=== PATIENT | female | born 1955 | race Caucasian/White ===

== ENCOUNTER 2016-09-08 15:38 | Inpatient (IN) | payer MEDICARE ==
--- NOTE | 2016-09-08 18:46 | XR ---
EXAMINATION TYPE: XR foot complete LT DATE OF EXAM: 09/08/2016 6:38 PM COMPARISON: 06/18/2016 HISTORY: Infection of the left first great toe with redness and swelling all along toes 3 patient has a nonhealing wound at the plantar surface of the left heel. TECHNIQUE: 3 radiographic views of the left foot were obtained. FINDINGS: There is generalized soft tissue swelling of the hindfoot and midfoot to a lesser degree of the forefoot. There is no evidence of fracture or dislocation. Redemonstration of degenerative day es appreciated as joint space narrowing at the metacarpophalangeal joints and interphalangeal joints greatest within the first digit. Supra calcaneal infracalcaneal heel spurs are noted. There is no christian dence of subcutaneous emphysema. Deformity of the soft tissues of the distal first digit overlying th e tuft is noted. No gross evidence for adjacent osseous abnormality. IMPRESSION: 1. Soft tissue deformity over the distal first digit without adjacent osseous abnormality. 2. Redemonstration of diffuse soft tissue swelling greatest within the hindfoot and midfoot and degen erative changes.
[2016-09-08] MEDS: SODIUM CHLORIDE 0.9% 1,000 ML IV SCH (18:50)
[2016-09-08] MEDS: GABAPENTIN 300 MG CAP PO SCH ×2 (18:51→21:12)
[2016-09-08] MEDS ORDERED: IV VANCOMYCIN PER PHARMACY 1 EACH MISC MISCELLANE PRN (19:58)
[2016-09-08 20:51] LABS: Aty Lym Flag Slight; CH 30.1; CHCM 33.1; HDW 3.05; HGB 9.9 gm/dL (11.4-16.0); MCH 30.1 pg (25.0-35.0); MCHC 32.9 g/dL (31.0-37.0); MCV 91.4 fL (80.0-100.0); Mean Platelet Volume 8.8; RBC 3.28 m/uL (3.80-5.40); RDW 13.4 % (11.5-15.5); WBC 5.4 k/uL (3.8-10.6); WBC (Perox) 4.98
[2016-09-08 20:57] LABS: Anion Gap 7 mmol/L; Blood Urea Nitrogen 11 mg/dL (7-17); Carbon Dioxide 28 mmol/L (22-30); Chloride 105 mmol/L (98-107); Glucose 73 mg/dL (74-99); Non-African American GFR(MDRD) >60 (>60 ml/min/1.73 sqM); Potassium 3.6 mmol/L (3.5-5.1); Sodium 140 mmol/L (137-145)
[2016-09-08] MEDS ORDERED: VANCOMYCIN 2,500 MG in SODIUM CHLORIDE 0.9% 500 ML IVPB ONE (21:00)
[2016-09-08 21:10] LABS: Add Differential Manual Differential
[2016-09-08] MEDS: ENOXAPARIN 40 MG/0.4 ML SYRINGE SQ SCH (21:11)
[2016-09-08 21:12] LABS: Nucleated Red Blood Cells 0 /100 WBC (0-0); Polychromasia Present; Total Cells Counted 100
[2016-09-08] MEDS: LISINOPRIL 20 MG TAB PO SCH (21:12)
[2016-09-08 21:13] LABS: Toxic Granulation Present
[2016-09-08] MEDS: PREGABALIN 50 MG CAP PO SCH (21:13)
[2016-09-08] MEDS ORDERED: diphenhydrAMINE 25 MG CAP PO PRN (23:26)
[2016-09-09] MEDS: SODIUM CHLORIDE 0.9% 1,000 ML IV SCH ×4 (00:05→21:47)
[2016-09-09] MEDS: VANCOMYCIN 2,250 MG in SODIUM CHLORIDE 0.9% 500 ML IVPB SCH ×2 (06:57→17:26)
[2016-09-09] MEDS: LEVOTHYROXINE 100 MCG TAB PO SCH (06:57)
[2016-09-09] MEDS: LISINOPRIL 20 MG TAB PO SCH ×2 (08:17→21:44)
--- NOTE | 2016-09-09 09:29 | P.CONS ---
History of Present Illness - Reason for Consult Consult date: 09/09/16 Cellulitis left foot - History of Present Illness This is a 61-year-old female and known to ID service due to chronic wounds with a left heel wound under the care of Dr. Danielson at the wound healing Center. Patient states that she had a total contact cast placed and the heel wound was healing very well but about [address] Danielson took the cast off she had some redness on the great toe and she was placed on Cipro for a 10 day course which she completed. Last week, patient's thought that things were going very well and the cast was put back on and when it was taken off yesterday there was bleeding from her big toe. Patient was sent from the wound healing center as a direct admission to the medical floor for admission with IV antibiotics due to infected nail bed. There was also consult placed with Dr. Andrew. Patient denies having any fever or chills. She denies having any pain to the foot, numbness or tingling. She does state there was a lot of bleeding yesterday. X-ray of the foot showed a soft tissue deformity in the distal first without osseous abnormality. Diffuse soft tissue swelling greatest within the hindfoot and midfoot with degenerative changes. Wound culture and aerobic culture in progress. Her white count 5.4 with GFR greater than 60. Hemoglobin was 9.9. Patient's been started on ceftriaxone and vancomycin. Patient does complain of diarrhea which she states is significant although she has not had any this morning. She has had some problems with stool incontinence. Pre-albumin done on August 20 was 16. Review of Systems All systems: negative Constitutional: Reports poor appetite, Denies chills, Denies fever Eyes: denies blurred vision, denies pain Ears, nose, mouth and throat: Denies headache, Denies sore throat Cardiovascular: Denies chest pain, Denies shortness of breath Respiratory: Denies cough Gastrointestinal: Denies abdominal pain, Denies diarrhea, Denies nausea, Denies vomiting Genitourinary: Denies dysuria, Denies hematuria Musculoskeletal: Denies myalgias Integumentary: Reports wounds, Denies pruritus, Denies rash Neurological: Denies numbness, Denies weakness Psychiatric: Denies anxiety, Denies depression Endocrine: Denies fatigue, Denies weight change Past Medical History Past Medical History: Hypertension, Osteoarthritis (OA), Skin Disorder, Thyroid Disorder Additional Past Medical History / Comment(s): UTI, neuropathy, anemia, umbilical hernia, WOUND LEFT HEEL, umb hernia, breakdown lt foot goes to [facility], strss incont of urine History of Any Multi-Drug Resistant Organisms: None Reported Past Surgical History: Section, Cholecystectomy, Orthopedic Surgery, Tubal Ligation Additional Past Surgical History / Comment(s): D&C x 3, arthroscopic left knee x 2 Past Anesthesia/Blood Transfusion Reactions: Previous Problems w/ Anesthesia Additional Past Anesthesia/Blood Transfusion Reaction / Comm: slow to come out of it Past Psychological History: No Psychological Hx Reported Additional Psychological History / Comment(s): pt lives alone in a single level home that has 3 steps in which to enter. no pets.uses a cane when up. receives [facility] care nurse. Smoking Status: Former smoker Past Alcohol Use History: Rare Additional Past Alcohol Use History / Comment(s): started smoking 1970, quit 1990, 1 ppd. Patient denies any medical marijuana, marijuana, street drug or alcohol use. She worked in the past as a nurse at [employer]. Past Drug Use History: None Reported - Past Family History Father Family Medical History: Cancer, Coronary Artery Disease (CAD), Myocardial Infarction ([place]), Prostate Disorder Additional Family Medical History / Comment(s): Prostate CA Mother Family Medical History: Cancer, CVA/TIA, Hyperlipidemia Additional Family Medical History / Comment(s): Lung CA-left lobe removed Medications and Allergies Home Medications Medication Instructions Recorded Confirmed Type Gabapentin [Neurontin] 900 mg PO HS@2200 08/29/13 09/08/16 History Levothyroxine Sodium [Synthroid] 100 mcg PO DAILY 08/29/13 09/08/16 History Lisinopril [Zestril] 20 mg PO BID PRN 08/29/13 09/08/16 History Ibuprofen [Motrin] 800 mg PO TID PRN 01/13/16 09/08/16 History Pregabalin [Lyrica] 50 mg PO TID 01/13/16 09/08/16 History Gabapentin [Neurontin] 600 mg PO BID@1000,1400 01/14/16 09/08/16 History HYDROcodone/APAP 7.5-325MG [[place] 1 tab PO Q6HR PRN 09/08/16 09/08/16 History 7.5-325] Allergies Allergy/AdvReac Type Severity Reaction Status Date / Time Sulfa (Sulfonamide Allergy Rash/Hives Verified 09/08/16 17:22 Antibiotics) Physical Exam Vitals: Vital Signs Temp Pulse Resp BP BP Pulse Ox 09/09/16 07:00 97.8 F 75 20 123/58 95 09/08/16 23:00 97.3 F L 100 20 157/97 94 L 09/08/16 16:20 96.5 F L 68 16 149/74 98 Intake and Output 09/08/16 09/09/16 09/09/16 22:59 06:59 14:59 Intake Total 100 100 Balance 100 100 Intake: Oral 100 100 Other: # Voids 1 Weight 153.91 kg Gen: This is a super morbid obese female. She is lying in bed and appears to be in no acute distress. HEENT: Head is atraumatic, normocephalic. Pupils equal, round. Sclerae is anicteric. Conjunctiva pink. Mucous membranes of the mouth are moist. No thrush noted. Dentition is in poor order. NECK: Short and thick. Supple. No JVD. No lymphadenopathy. No thyromegaly. LUNGS: Clear to auscultation. No wheezes or rhonchi. No intercostal retractions. HEART: Regular rate and rhythm. No murmur. Heart sounds are distant. ABDOMEN: Morbidly obese .Soft. Bowel sounds are present. No masses. No tenderness. Large abdominal apron with moisture but no significant redness. Mid abdominal hernia noted. EXTREMITIES: Chronic skin changes to the bilateral lower extremities. Onychomycosis noted bilaterally. Left foot has significant erythema from the toes to the mid foot with drainage from the nail bed on the left great toe. Ulcer to the left heel with small amount of yellow drainage. Foul odor noted. NEUROLOGICAL: Patient is awake, alert and oriented x3. Cranial nerves 2 through 12 are grossly intact. Results CBC & Chem 7: 09/10/16 09:43 09/10/16 09:43 Labs: Abnormal Lab Results - Last 24 Hours (Table) 09/08/16 09/08/16 Range/Units 19:54 19:54 RBC 3.28 L (3.80-5.40) m/uL Hgb 9.9 L (11.4-16.0) gm/dL Hct 30.0 L (34.0-46.0) % Plt Count 127 L (150-450) k/uL Lymphocytes # (Manual) 0.9 L (1.0-4.8) k/uL Glucose 73 L (74-99) mg/dL Microbiology - Last 24 Hours (Table) 09/08/16 18:30 Gram Stain - Preliminary Foot - Left Wound Culture - Preliminary 09/08/16 18:30 Anaerobic Culture - Preliminary Foot - Left Assessment and Plan Plan: This is a 61-year-old female who presented with a wound infection to the left great toe with cellulitis and chronic nonhealing ulcer to the left heel. Local wound care will be addressed. Bone scan will be ordered. She is currently on antibiotics in form of ceftriaxone and vancomycin. Wound culture and anaerobic wound culture is in progress. Culture will be requested. Stool specimen will be sent for C. difficile toxin. Continue supportive care. Further recommendations as patient progresses. The above dictated assessment and findings were discussed with Dr. Suazo. The impression and plan of care have been directed as dictated. Sharon Webb nurse practitioner acting as scribe for Dr. Suazo.
[2016-09-09 09:48] VITALS: BMI 51.5
--- NOTE | 2016-09-09 10:41 | HP ---
DATE OF ADMISSION: 09/08/2016 PRESENTING COMPLAINT: Left heel wound. HISTORY OF PRESENT ILLNESS: This is a very pleasant 61-year-old patient of Dr. Mcfarlane, patient has a long-standing wound on the left heel. The patient was in a cast for about 4 weeks that was taken off 3 weeks ago. After 2 weeks the wound broke down again, cast was put back on, he had it on for 2 weeks and the cast was taken off today. Patient's was found to have foul-smelling draining left heel wound. Also the patient was found to have infection of the big toe and fungal changes of the foot. The patient's chronic stable medical conditions include peripheral neuropathy, obesity, osteoarthritis, hypertension, hypothyroidism, umbilical hernia, urinary stress incontinence, and chronic lymphedema. The patient normally uses a cane to get about. This has slight bogginess, wound to the right heel. The patient was admitted to the wound care center by Dr. Danielson from vascular surgery. REVIEW OF SYSTEMS: CONSTITUTIONAL: Tired. RESPIRATORY: None. CARDIOVASCULAR: None. GASTROINTESTINAL: None. GENITOURINARY: Urinary stress incontinence. DERMATOLOGICAL: Dry skin. HEMATOLOGICAL: None. LYMPHATICS: None. NEUROLOGICAL: Peripheral neuropathy. PAST MEDICAL HISTORY: Peripheral neuropathy, obesity, osteoarthritis, hypertension, hypothyroid, umbilical hernia, urinary stress incontinence, left heel wound. PAST SURGICAL HISTORY: , cholecystectomy, tubal ligation D&C, arthroscopy of the left knee. SOCIAL HISTORY: Patient lives alone in a single level home. Uses a cane. The patient smoked for about 20 years; stopped in 1990, smoked a pack a day. FAMILY HISTORY: Coronary artery disease, prostate cancer. HOME MEDICATIONS: 1. Lyrica 50 mg p.o. t.i.d. 2. Synthroid 100 mcg p.o. daily. 3. Motrin 800 mg p.o. t.i.d. 4. [place] 7.5 one tablets every 6 p.r.n. 5. Neurontin 600 mg p.o. b.i.d. and 900 mg p.o. at bedtime. 6. Zestril 20 mg b.i.d. Allergies to SULFA. On examination, temperature 96.5, pulse 58, respirations 16, blood pressure 140/74, pulse ox 98% on room air. GENERAL: Morbidly obese, BMI 50. Not in distress. HEENT: Oral cavity normal. NECK: Short, thick, JVD unable to assess. Mass not palpable. RESPIRATORY: Effort increased. LUNGS: Distant breath sounds. CARDIOVASCULAR: Heart sounds muffled. Minimal edema. ABDOMEN: Distended, soft. Liver and spleen not palpable. LYMPHATIC: No lymph nodes palpable in the neck or axilla. PSYCHIATRY: Alert, oriented x3. Mood normal. EXTREMITIES: Lymphedema of the lower extremities. Dry skin flaking over the ankle with evidence of necrobiosis lipoidica. The patient also had boggy wound of the left heel and evidence of fungal infection in all the toes. Appears to be a foul-smelling abscess around the first toe nail on the left foot. INVESTIGATIONS: Blood work pending. Culture will be sent off. ASSESSMENT: 1. Left heel wound, having failed outpatient treatment, probably from peripheral neuropathy and foot that was in a cast. 2. Morbid obesity, body mass index of 51.6. 3. Primary osteoarthritis of multiple joints. 4. Essential hypertension. 5. Hypothyroidism. 6. Umbilical hernia. 7. Urinary stress incontinence. PLAN: The patient was put on vancomycin and ceftriaxone. Consultation with Dr. Andrew and ID is being done and Dr. Danielson. Cultures were already sent off. Care was discussed with the patient.
[2016-09-09 10:52] LABS: Anion Gap 8 mmol/L; Blood Urea Nitrogen 9 mg/dL (7-17); Calcium 8.7 mg/dL (8.4-10.2); Carbon Dioxide 25 mmol/L (22-30); Chloride 109 mmol/L (98-107); Glucose 90 mg/dL (74-99); Non-African American GFR(MDRD) >60 (>60 ml/min/1.73 sqM); Potassium 3.5 mmol/L (3.5-5.1); Sodium 142 mmol/L (137-145)
[2016-09-09] MEDS: PREGABALIN 50 MG CAP PO SCH ×3 (10:53→21:51)
[2016-09-09] MEDS: GABAPENTIN 300 MG CAP PO SCH ×3 (10:53→21:44)
[2016-09-09] MEDS: HYDROcodone/APAP 7.5-325MG 1 EACH TAB PO PRN (17:29)
--- NOTE | 2016-09-09 17:51 | NM ---
EXAMINATION TYPE: NM bone 3 phase DATE OF EXAM: 09/09/2016 5:38 PM COMPARISON: Left foot x-ray yesterday 2017 HISTORY: Left first toe infection, assess for osteomyelitis Triple phase bone scintigraphy was performed following the injection of27.2 mCi Tc 99m MDP. Immediat e images and 3 hours post injection images acquired. FINDINGS: Dynamic arterial phase imaging shows increased radiotracer uptake right heel level as well as anterio r left first toe level. Soft tissue phase images shows increased radiotracer uptake left first toe le amanda. Delayed phase imaging shows increased uptake left first toe level. IMPRESSION: Three-phase radiotracer uptake distal left first toe correlates with acute osteomyelitis in the [facility] clinical setting.
--- NOTE | 2016-09-09 18:45 | P.CON ---
Consult Note - . Consult date: 09/09/16 Assessment/Plan:: History of Present Illness - Reason for Consult Consult date: 09/09/16 Cellulitis left foot - History of Present Illness This is a 61-year-old female and known to ID service due to chronic wounds with a left heel wound under the care of Dr. Danielson at the wound healing Center. Patient states that she had a total contact cast placed and the heel wound was healing very well but about [address] Danielson took the cast off she had some redness on the great toe and she was placed on Cipro for a 10 day course which she completed. Last week, patient's thought that things were going very well and the cast was put back on and when it was taken off yesterday there was bleeding from her big toe. Patient was sent from the wound healing center as a direct admission to the medical floor for admission with IV antibiotics due to infected digit. Patient denies having any fever or chills. She denies having any pain to the foot, numbness or tingling. She does state there was a lot of bleeding yesterday. X-ray of the foot showed a soft tissue deformity in the distal first without osseous abnormality. Diffuse soft tissue swelling greatest within the hindfoot and midfoot with degenerative changes. Wound culture and aerobic culture in progress. Her white count 5.4 with GFR greater than 60. Hemoglobin was 9.9. Patient's been started on ceftriaxone and vancomycin. Patient does complain of diarrhea which she states is significant although she has not had any this morning. She has had some problems with stool incontinence. Pre-albumin done on August 20 was 16. Review of Systems All systems: negative Constitutional: Reports poor appetite, Denies chills, Denies fever Eyes: denies blurred vision, denies pain Ears, nose, mouth and throat: Denies headache, Denies sore throat Cardiovascular: Denies chest pain, Denies shortness of breath Respiratory: Denies cough Gastrointestinal: Denies abdominal pain, Denies diarrhea, Denies nausea, Denies vomiting Genitourinary: Denies dysuria, Denies hematuria Musculoskeletal: Denies myalgias Integumentary: Reports wounds, Denies pruritus, Denies rash Neurological: Denies numbness, Denies weakness Psychiatric: Denies anxiety, Denies depression Endocrine: Denies fatigue, Denies weight change Past Medical History Past Medical History: Hypertension, Osteoarthritis (OA), Skin Disorder, Thyroid Disorder Additional Past Medical History / Comment(s): UTI, neuropathy, anemia, umbilical hernia, WOUND LEFT HEEL, umb hernia, breakdown lt foot goes to [facility], strss incont of urine History of Any Multi-Drug Resistant Organisms: None Reported Past Surgical History: Section, Cholecystectomy, Orthopedic Surgery, Tubal Ligation Additional Past Surgical History / Comment(s): D&C x 3, arthroscopic left knee x 2 Past Anesthesia/Blood Transfusion Reactions: Previous Problems w/ Anesthesia Additional Past Anesthesia/Blood Transfusion Reaction / Comm: slow to come out of it Past Psychological History: No Psychological Hx Reported Additional Psychological History / Comment(s): pt lives alone in a single level home that has 3 steps in which to enter. no pets.uses a cane when up. receives [facility] care nurse. Smoking Status: Former smoker Past Alcohol Use History: Rare Additional Past Alcohol Use History / Comment(s): started smoking 1970, quit 1990, 1 ppd. Patient denies any medical marijuana, marijuana, street drug or alcohol use. She worked in the past as a nurse at [employer]. Past Drug Use History: None Reported - Past Family History Father Family Medical History: Cancer, Coronary Artery Disease (CAD), Myocardial Infarction ([place]), Prostate Disorder Additional Family Medical History / Comment(s): Prostate CA Mother Family Medical History: Cancer, CVA/TIA, Hyperlipidemia Additional Family Medical History / Comment(s): Lung CA-left lobe removed Medications and Allergies Home Medications Medication Instructions Recorded Confirmed Type Gabapentin [Neurontin] 900 mg PO HS@2200 08/29/13 09/08/16 History Levothyroxine Sodium [Synthroid] 100 mcg PO DAILY 08/29/13 09/08/16 History Lisinopril [Zestril] 20 mg PO BID PRN 08/29/13 09/08/16 History Ibuprofen [Motrin] 800 mg PO TID PRN 01/13/16 09/08/16 History Pregabalin [Lyrica] 50 mg PO TID 01/13/16 09/08/16 History Gabapentin [Neurontin] 600 mg PO BID@1000,1400 01/14/16 09/08/16 History HYDROcodone/APAP 7.5-325MG [[place] 1 tab PO Q6HR PRN 09/08/16 09/08/16 History 7.5-325] Allergies Allergy/AdvReac Type Severity Reaction Status Date / Time Sulfa (Sulfonamide Allergy Rash/Hives Verified 09/08/16 17:22 Antibiotics) Physical Exam Vitals: Vital Signs Temp Pulse Resp BP BP Pulse Ox 09/09/16 07:00 97.8 F 75 20 123/58 95 09/08/16 23:00 97.3 F L 100 20 157/97 94 L 09/08/16 16:20 96.5 F L 68 16 149/74 98 Intake and Output 09/08/16 09/09/16 09/09/16 22:59 06:59 14:59 Intake Total 100 100 Balance 100 100 Intake: Oral 100 100 Other: # Voids 1 Weight 153.91 kg Podiatric exam: Dermatologic exam: Patient has a full-thickness ulceration distal aspect of left hallux through the dermis. It measures proximal a half centimeter by a centimeter and half treating down to the osseous structures 45 mm. It is localized erythema edema extending from this ulcer to the interphalangeal joint of the left hallux. Patient is a full-thickness ulcer of the left heel approximately 3 cm in diameter through the dermis into the deep fascia planes. Patient has lymphatic changes of the dermis bilateral. There is cellulitic changes consistent with stasis dermatitis bilateral. Patient has thickened mycotic nails 10 with dystrophic changes. There is loosening and subungual debris a several these nails with proximal paronychia the proximal nail fold of the left hallux. Upon removal of the nail plate on the left hallux there is no nail bed injury. Vascular examination patient has patent palpable and symmetrical pedal pulses bilateral there is no digital hair. Chronic lymphedema bilateral with lymphatic changes consistent with chronic condition. Neurologic exam: Patient has diminished epicritic and pallesthetic sensations bilateral. There is pain with deep palpation as well as with debridement of the ulcer of the left hallux. Orthopedic examination: Patient has diminished range of motion of the ankle joint and subtalar joint and midtarsal joint and metatarsophalangeal joints bilateral all inverters everters plantar flexors dorsiflexors grossly intact symmetrical bilateral review of recent bone scan triphasic suggest osteomyelitis acute on the distal aspect of the left hallux. Results CBC & Chem 7: 09/08/16 19:54 09/08/16 19:54 Labs: Abnormal Lab Results - Last 24 Hours (Table) 09/08/16 09/08/16 Range/Units 19:54 19:54 RBC 3.28 L (3.80-5.40) m/uL Hgb 9.9 L (11.4-16.0) gm/dL Hct 30.0 L (34.0-46.0) % Plt Count 127 L (150-450) k/uL Lymphocytes # (Manual) 0.9 L (1.0-4.8) k/uL Glucose 73 L (74-99) mg/dL Microbiology - Last 24 Hours (Table) 09/08/16 18:30 Gram Stain - Preliminary Foot - Left Wound Culture - Preliminary 09/08/16 18:30 Anaerobic Culture - Preliminary Foot - Left Assessment and Plan Plan: This is a 61-year-old female who presented with a wound infection to the left great toe with cellulitis and chronic nonhealing ulcer to the left heel. Local wound care will be addressed. Bone scan is reviewed and is positive for possible underlying osteomyelitis acute. This is consistent with her clinical findings of the ulcer full-thickness to the underlying osseous structures. She is currently on antibiotics in form of ceftriaxone and vancomycin. We debrided the ulcer on the distal aspect left hallux of all fibrotic necrotic tissue to good bleeding viable tissue using sharp dissection with a 15 blade. Upon debridement it was noted that the ulcer penetrated to the distal phalanx. This osseous structure was firm upon palpation with the surgical instrument. There is minimal necrotic bone noted upon inspection. There is no purulence no odor we also debrided the dystrophic mycotic nails 10. Orders are written for local wound care. Also repeated culture and sensitivity was removal of all necrotic tissue. Will follow patient. Patient may benefit from surgical debridement of bone in the future once the infection appears to be resolving.
[2016-09-09] MEDS: ENOXAPARIN 40 MG/0.4 ML SYRINGE SQ SCH (21:43)
--- NOTE | 2016-09-09 23:36 | P.CON ---
Consult Note - . Consult date: 09/09/16 Assessment/Plan:: This is a 61-year-old female and known to ID service due to chronic wounds with a left heel wound under the care of Dr. Danielson at the wound healing Center. Patient states that she had a total contact cast placed and the heel wound was healing very well but about [address] Danielson took the cast off she had some redness on the great toe and she was placed on Cipro for a 10 day course which she completed. Last week, patient's thought that things were going very well and the cast was put back on and when it was taken off yesterday there was bleeding from her big toe. Patient was sent from the wound healing center as a direct admission to the medical floor for admission with IV antibiotics due to infected nail bed. There was also consult placed with Dr. Andrew. Patient denies having any fever or chills. She denies having any pain to the foot, numbness or tingling. She does state there was a lot of bleeding yesterday. X-ray of the foot showed a soft tissue deformity in the distal first without osseous abnormality. Diffuse soft tissue swelling greatest within the hindfoot and midfoot with degenerative changes. Wound culture and aerobic culture in progress. Her white count 5.4 with GFR greater than 60. Hemoglobin was 9.9. Patient's been started on ceftriaxone and vancomycin. Patient does complain of diarrhea which she states is significant although she has not had any this morning. She has had some problems with stool incontinence. Pre-albumin done on August 20 was 16. Please see the consult note as dictated by nurse practitioner Mrs. Sharon Webb. Pleasant woman known from the wound healing Center. Is now been seen by vascular surgery as well as podiatry. Is evidence of a significant infection to the left foot. Underlying evaluations include follow-up bone scan and x- rays. To evaluate the possibility of hospitalist of that great toe. Antibiotic therapy with ceftriaxone and vancomycin being utilized some prior cultures. The patient did have some diarrhea and forcefully is negative for C. diff at this time. The plan ongoing supportive care. Pain control appears to be adequate. Local wound care continues. Chronic ulceration to the heel is doing well with the recent total contact cast use as well as other medical Honey. Continue that for now. Will not be able to have the TCC reapplied in the near future due to the acute difficulty she suffered from. It appears that she developed severe wetness within the cast. I agree with evaluation, assessment and plan as dictated by nurse practitioner Mrs. Sharon Webb.
[2016-09-10] MEDS: SODIUM CHLORIDE 0.9% 1,000 ML IV SCH ×4 (04:08→22:26)
[2016-09-10] MEDS: VANCOMYCIN 2,250 MG in SODIUM CHLORIDE 0.9% 500 ML IVPB SCH ×2 (05:32→17:25)
--- NOTE | 2016-09-10 06:14 | PN ---
DATE OF SERVICE: 09/09/2016. PRESENTING COMPLAINT: Left heel wound. INTERVAL HISTORY: This is a 61-year-old female with a long-standing history of nonhealing wounds on the left heel. Patient was being seen by Wound Care. Patient was casted as a part of her therapy and after removal of the cast, it was noted that the wound broke down. Cast was put back on and then taken off again. Patient was found to have foul-smelling drainage from the left heel wound and a left big toe and fungal infections of the foot. Today patient is awake and alert. No acute distress noted or voiced. Patient inquiring regarding her left foot x-ray what the results of that were. Otherwise, patient has no complaints and no questions. Review of systems done for constitutional, cardiovascular, GI, pulmonary with relevant findings as above. CURRENT MEDICATIONS: [place], Benadryl, Lovenox, Neurontin, Synthroid, lisinopril, Lyrica, vancomycin. PHYSICAL EXAMINATION: VITAL SIGNS: Temperature 97.8, pulse 75, respirations 20, blood pressure 123/58, oxygen saturation 95% on room air. GENERAL APPEARANCE: Patient is lying in bed, comfortable appearing, answers all questions appropriately. No acute distress noted or voiced. EYES: Pupils equal. Conjunctivae normal. NECK: JVD not raised. Mass not palpable. LUNGS: Diminished sounds bilaterally. RESPIRATORY: Effort normal, unlabored. CARDIOVASCULAR: First and second sounds noted, +2 to 3 edema to bilateral lower extremities. Patient has lymphedema to her bilateral lower extremities. EXTREMITIES: Lymphedema to the below bilateral lower extremities. Try flaking skin over the ankle with evidence of necrobiosis lipoidica. The patient also has a boggy wound of the left heel, evidence of fungal infection in all the toes, appears to be foul-smelling abscess around the first toenail on the left foot. INVESTIGATIONS: Sodium 142, potassium 3.5, BUN 9, creatinine 0.59. Wound culture in progress. ASSESSMENT: 1. Left heel wound, having failed outpatient treatment, probably from peripheral neuropathy and foot that was casted. 2. Morbid obesity; body mass index of 51.6. 3. Primary osteoarthritis of multiple joints. 4. Essential hypertension. 5. Hypothyroidism. 6. Umbilical hernia. 7. Urinary stress incontinence. PLAN: Patient remains on vancomycin and ceftriaxone. Consultation with Dr. Adnrew and Infectious Disease is being done and Dr. Danielson. Culture sent, awaiting results. Plan of care was discussed with the patient. Patient was seen and examined by nurse practitioner, Rosetta Robles, and all elements of the case discussed with attending, Dr. Magallanes.
[2016-09-10] MEDS: LEVOTHYROXINE 100 MCG TAB PO SCH (07:49)
[2016-09-10] MEDS: LISINOPRIL 20 MG TAB PO SCH ×2 (07:49→22:24)
[2016-09-10] MEDS: HYDROcodone/APAP 7.5-325MG 1 EACH TAB PO PRN (08:01)
--- NOTE | 2016-09-10 09:42 | PN ---
DATE OF SERVICE: 09/09/2016 PRESENTING COMPLAINT: Left heel wound. ATTENDING NOTE: This patient seen and examined by me earlier today. Patient presented with left foot heel wound and right big toe wound. Wound was debrided. Left heel wound was debrided by Dr. Andrew later in the day. On examination, lungs are clear. CARDIOVASCULAR: First and second sounds normal. Left foot wound was debrided. INVESTIGATIONS: Potassium 3.5. Nuclear bone scan later in the day reported as possible osteomyelitis of the first big toe. ASSESSMENT: 1. Left heel wound having failed outpatient treatment, status post secondary to peripheral neuropathy, status post debridement. 2. Left first big toe osteomyelitis per bone scan. PLAN: Continue with the current medication and treatment plan and antibiotics. Follow. Initially the cultures are growing presumptive staph aureus.
[2016-09-10 10:09] LABS: Basophils % (A) 0 %; CH 29.4; CHCM 31.5; Eosinophils # (A) 0.1 k/uL (0-0.7); Eosinophils % (A) 2 %; HCT 33.2 % (34.0-46.0); HDW 2.88; HGB 10.7 gm/dL (11.4-16.0); Hypochromasia Slight; Luc # (Auto) 0.19; Luc % (Auto) 5; Lymphocytes # (A) 0.6 k/uL (1.0-4.8); Lymphocytes % (A) 14 %; MCHC 32.1 g/dL (31.0-37.0); MCV 93.7 fL (80.0-100.0); Mean Platelet Volume 8.3; Monocytes # (A) 0.3 k/uL (0-1.0); Monocytes % (A) 8 %; Neutrophils # (A) 3.1 k/uL (1.3-7.7); Neutrophils % (A) 71 %; RBC 3.55 m/uL (3.80-5.40); RDW 13.7 % (11.5-15.5); WBC 4.3 k/uL (3.8-10.6); WBC (Perox) 4.46
[2016-09-10] MEDS: GABAPENTIN 300 MG CAP PO SCH ×3 (10:45→22:24)
[2016-09-10] MEDS: LOPERAMIDE 2 MG CAP PO PRN ×2 (10:45→17:25)
[2016-09-10] MEDS: PREGABALIN 50 MG CAP PO SCH ×3 (10:45→22:29)
[2016-09-10 10:53] LABS: Anion Gap 13 mmol/L; Blood Urea Nitrogen 7 mg/dL (7-17); Carbon Dioxide 22 mmol/L (22-30); Chloride 110 mmol/L (98-107); Glucose 90 mg/dL (74-99); Non-African American GFR(MDRD) >60 (>60 ml/min/1.73 sqM); Potassium 3.7 mmol/L (3.5-5.1); Sodium 145 mmol/L (137-145)
[2016-09-10] MEDS: LACTOBACILLUS ACIDOPH & BULGAR 1 EACH PACKET PO SCH ×2 (17:25→22:26)
--- NOTE | 2016-09-10 18:00 | PN ---
DATE OF SERVICE: 09/10/2016 PRESENTING COMPLAINT: Left heel wound. INTERVAL HISTORY: This is a female with a long-standing history of non-healing wounds to the left heel. Patient has been seen by Wound Care. On a repeat visit to the wound care clinic, patient was found to have infected toes after the removal of a cast. Patient therefore was admitted for antibiotic therapy. Today patient is awake and alert. No acute distress noted or voiced. She is sitting up on the bed. Review of systems done for constitutional, cardiovascular, GI, pulmonary, with relevant findings as above. CURRENT MEDICATIONS: 1. [place]. 2. Benadryl. 3. Lovenox. 4. Neurontin. 5. Synthroid. 6. Lisinopril. 7. Lyrica. 8. Vancomycin. PHYSICAL EXAMINATION: VITAL SIGNS: Temperature 96.6, pulse 66, respiratory rate 16, blood pressure 154/82, oxygen saturation 96% on room air. GENERAL APPEARANCE: Patient is sitting up on the chair. No acute distress noted or voiced. EYES: Pupils equal. Conjunctivae normal. NECK: JVD not raised. Mass not palpable. LUNGS: Diminished breath sounds bilaterally. Respiratory effort normal, unlabored. CARDIOVASCULAR: First and second sounds noted. Plus 2 to 3 edema to bilateral lower extremities. Patient has lymphedema to her bilateral lower extremities. EXTREMITIES: Lymphedema to the bilateral lower extremities. Flaking skin over the ankle. Evidence of necrobiosis and lipodidica. Patient has a recently debrided left heel wound, beefy red in color. Debridement also done to the abscess around the first toe as well as subsequent toes on the foot. INVESTIGATIONS: White blood cell count 4.3, hemoglobin 10.7, platelet count 159. Sodium 145, potassium 3.7. BUN 7, creatinine 0.63. Bone scan correlates with acute osteomyelitis. Debridement done at the bedside on the distal aspect of the left hallux. Dystrophic mycotic nails were also debrided x10. C difficile negative. ASSESSMENT: 1. Left heel wound, having failed outpatient treatment, probably from peripheral neuropathy and foot that was casted. 2. Morbid obesity; body mass index of 51.6. 3. Primary osteoarthritis of multiple joints. 4. Essential hypertension. 5. Hypothyroidism. 6. Umbilical hernia. 7. Urinary stress incontinence. 8. Antibiotic-associated diarrhea, acute. PLAN: Patient remains on vancomycin and ceftriaxone per ID recommendations. Dr. Andrew did debridement procedure on patient's left foot with good results. Awaiting results of repeat cultures. Provided Imodium for diarrhea, as C difficile toxin test was negative as well as lactobacillus. Plan of care was discussed with the patient. Patient seen and examined by nurse practitioner, Rosetta Robles, and all the elements of the case were discussed with attending, Dr. Magallanes.
[2016-09-10] MEDS: ENOXAPARIN 40 MG/0.4 ML SYRINGE SQ SCH (22:23)
--- NOTE | 2016-09-10 23:22 | PN ---
DATE OF SERVICE: 09/10/2016 ATTENDING NOTE: This patient was seen and examined by me earlier today. Reviewed the care with Ms. Robles. Patient is status post debridement. She is also being treated for osteomyelitis. Pain is controlled. Lying in bed. Current medications include IV ceftriaxone, IV vancomycin. On examination, afebrile. LUNGS: Decreased breath sounds. CARDIOVASCULAR: First and second sounds normal. Wound culture is growing MSSA. ASSESSMENT: 1. Left heel wound, having failed outpatient treatment, probably from peripheral neuropathy. 2. Acute antibiotic-associated diarrhea. 3. Left big toe osteomyelitis. PLAN: Continue current medication and treatment plan. Will wait for recommendation from ID. Patient is growing MSSA in the wounds. Will follow.
--- NOTE | 2016-09-10 23:49 | P.PN ---
Subjective Principal diagnosis: Abscess left foot This is a 61-year-old female and known to ID service due to chronic wounds with a left heel wound under the care of Dr. Danielson at the wound healing Center. Patient states that she had a total contact cast placed and the heel wound was healing very well but about [address] Danielson took the cast off she had some redness on the great toe and she was placed on Cipro for a 10 day course which she completed. Last week, patient's thought that things were going very well and the cast was put back on and when it was taken off yesterday there was bleeding from her big toe. Patient was sent from the wound healing center as a direct admission to the medical floor for admission with IV antibiotics due to infected nail bed. There was also consult placed with Dr. Andrew. Patient denies having any fever or chills. She denies having any pain to the foot, numbness or tingling. She does state there was a lot of bleeding yesterday. X-ray of the foot showed a soft tissue deformity in the distal first without osseous abnormality. Diffuse soft tissue swelling greatest within the hindfoot and midfoot with degenerative changes. Wound culture and aerobic culture in progress. Her white count 5.4 with GFR greater than 60. Hemoglobin was 9.9. Patient's been started on ceftriaxone and vancomycin. Patient does complain of diarrhea which she states is significant although she has not had any this morning. She has had some problems with stool incontinence. Pre-albumin done on August 20 was 16. As noted has been seen by vascular surgery and podiatry. The toe ulceration was debrided in the multiple grossly malformed nails were removed by podiatry. Doing somewhat better tonight. Pain is under good control. Is concerned how she is going to handle this entire situation at home. Objective - Vital Signs Vital signs: Vital Signs Temp 99.3 F 09/10/16 15:00 Pulse 71 09/10/16 15:00 Resp 18 09/10/16 15:00 BP 137/73 09/10/16 15:00 Pulse Ox 95 09/10/16 15:00 Intake & Output 09/10/16 09/10/16 09/11/16 06:59 18:59 06:59 Intake Total 1300 Balance 1300 Intake: Intake, IV Titration 1300 Amount Sodium Chloride 0.9% 1, 750 000 ml @ 150 mls/hr IV . Q6H40M VENKAT Rx#:[id number] Vancomycin 2,250 mg In 500 Sodium Chloride 0.9% 500 ml @ 167 mls/hr IVPB Q12H VENKAT Rx#:[id number] cefTRIAXone 1,000 mg In 50 Sodium Chloride 0.9% 50 ml @ 100 mls/hr IVPB HS VENKAT Rx#:[id number] Other: # Voids 1 3 - Exam Gen: This is a super morbid obese female. She is lying in bed and appears to be in no acute distress. HEENT: Head is atraumatic, normocephalic. Pupils equal, round. Sclerae is anicteric. Conjunctiva pink. Mucous membranes of the mouth are moist. No thrush noted. Dentition is in poor order. NECK: Short and thick. Supple. No JVD. No lymphadenopathy. No thyromegaly. LUNGS: Clear to auscultation. No wheezes or rhonchi. No intercostal retractions. HEART: Regular rate and rhythm. No murmur. Heart sounds are distant. ABDOMEN: Morbidly obese .Soft. Bowel sounds are present. No masses. No tenderness. Large abdominal apron with moisture but no significant redness. Mid abdominal hernia noted. EXTREMITIES: Chronic skin changes to the bilateral lower extremities. Onychomycosis noted bilaterally. Left foot has significant erythema from the toes to the mid foot with drainage from the nail bed on the left great toe. The toes of improved since the nail debridement and ulcer debridement. Chronic ulcer to the heel is stable without purulence. No odor today. NEUROLOGICAL: Patient is awake, alert and oriented x3. Cranial nerves 2 through 12 are grossly intact. - Labs CBC & Chem 7: 09/10/16 09:43 09/10/16 09:43 Labs: Abnormal Lab Results - Last 24 Hours (Table) 09/10/16 09/10/16 Range/Units 09:43 09:43 RBC 3.55 L (3.80-5.40) m/uL Hgb 10.7 L (11.4-16.0) gm/dL Hct 33.2 L (34.0-46.0) % Lymphocytes # 0.6 L (1.0-4.8) k/uL Chloride 110 H (98-107) mmol/L Microbiology - Last 24 Hours (Table) 09/08/16 18:30 Gram Stain - Final Foot - Left Wound Culture - Final Staphylococcus aureus 09/09/16 18:30 Gram Stain - Preliminary Foot - Left Wound Culture - Preliminary Laboratory Results WBC 4.3 k/uL (3.8-10.6) 09/10/16 09:43 RBC 3.55 m/uL (3.80-5.40) L 09/10/16 09:43 Hgb 10.7 gm/dL (11.4-16.0) L 09/10/16 09:43 Hct 33.2 % (34.0-46.0) L 09/10/16 09:43 MCV 93.7 fL (80.0-100.0) 09/10/16 09:43 MCH 30.0 pg (25.0-35.0) 09/10/16 09:43 MCHC 32.1 g/dL (31.0-37.0) 09/10/16 09:43 RDW 13.7 % (11.5-15.5) 09/10/16 09:43 Plt Count 159 k/uL (150-450) 09/10/16 09:43 Neutrophils % 71 % 09/10/16 09:43 Neutrophils % (Manual) 71.0 % 09/08/16 19:54 Lymphocytes % 14 % 09/10/16 09:43 Lymphocytes % (Manual) 16.0 % 09/08/16 19:54 Monocytes % 8 % 09/10/16 09:43 Monocytes % (Manual) 11.0 % 09/08/16 19:54 Eosinophils % 2 % 09/10/16 09:43 Eosinophils % (Manual) 2.0 % 09/08/16 19:54 Basophils % 0 % 09/10/16 09:43 Neutrophils # 3.1 k/uL (1.3-7.7) 09/10/16 09:43 Neutrophils # (Manual) 3.8 k/uL (1.3-7.7) 09/08/16 19:54 Lymphocytes # 0.6 k/uL (1.0-4.8) L 09/10/16 09:43 Lymphocytes # (Manual) 0.9 k/uL (1.0-4.8) L 09/08/16 19:54 Monocytes # 0.3 k/uL (0-1.0) 09/10/16 09:43 Monocytes # (Manual) 0.6 k/uL (0-1.0) 09/08/16 19:54 Eosinophils # 0.1 k/uL (0-0.7) 09/10/16 09:43 Eosinophils # (Manual) 0.1 k/uL (0-0.7) 09/08/16 19:54 Basophils # 0.0 k/uL (0-0.2) 09/10/16 09:43 Nucleated RBCs 0 /100 WBC (0-0) 09/08/16 19:54 Toxic Granulation Present 09/08/16 19:54 Polychromasia Present 09/08/16 19:54 Hypochromasia Slight 09/10/16 09:43 Sodium 145 mmol/L (137-145) 09/10/16 09:43 Potassium 3.7 mmol/L (3.5-5.1) 09/10/16 09:43 Chloride 110 mmol/L (98-107) H 09/10/16 09:43 Carbon Dioxide 22 mmol/L (22-30) 09/10/16 09:43 Anion Gap 13 mmol/L 09/10/16 09:43 BUN 7 mg/dL (7-17) 09/10/16 09:43 Creatinine 0.63 mg/dL (0.52-1.04) 09/10/16 09:43 Est GFR (MDRD) Af Amer >60 (>60 ml/min/1.73 sqM) 09/10/16 09:43 Est GFR (MDRD) Non-Af >60 (>60 ml/min/1.73 sqM) 09/10/16 09:43 Glucose 90 mg/dL (74-99) 09/10/16 09:43 Calcium 9.0 mg/dL (8.4-10.2) 09/10/16 09:43 C. difficile (EIA) Intrp Negative (Negative) 09/09/16 16:25 Microbiology 09/08/16 18:30 Foot - Left Gram Stain - Final 09/08/16 18:30 Foot - Left Wound Culture - Final Staphylococcus aureus 09/09/16 18:30 Foot - Left Gram Stain - Preliminary 09/09/16 18:30 Foot - Left Wound Culture - Preliminary 09/08/16 18:30 Foot - Left Anaerobic Culture - Preliminary Osteomyelitis of the left great toe distal Assessment and Plan (1) Ulcer of left heel and midfoot with necrosis of muscle Status: Acute (2) Acute osteomyelitis of toe of left foot Narrative/Plan: Pleasant woman known from the wound healing Center. Is now been seen by vascular surgery as well as podiatry. Is evidence of a significant infection to the left foot. Underlying evaluations include follow-up bone scan and x- rays. To evaluate the possibility of hospitalist of that great toe. Antibiotic therapy with ceftriaxone and vancomycin being utilized some prior cultures. The patient did have some diarrhea and forcefully is negative for C. diff at this time. The plan ongoing supportive care. Pain control appears to be adequate. Local wound care continues. Chronic ulceration to the heel is doing well with the recent total contact cast use as well as other medical Honey. Laboratory reveals evidence of staph aureus at the ulceration to the foot. With the final susceptibility. Bone scan is positive. Needs an IV placed for intravenous antibiotic therapy for the osteo-mellitus of the foot. Patient does not believe she will be able to care for herself and looking forward to evaluation for potential rehab placement. This would be for wound care, antibiotic therapy and strengthening. Status: Acute (3) Debility Status: Acute
[2016-09-11] MEDS: AMPICILLIN-SULBACTAM 3 GM in SODIUM CHLORIDE 0.9% 100 ML IVPB SCH ×5 (00:31→23:21)
[2016-09-11] MEDS ORDERED: VANCOMYCIN TROUGH DUE 1 EACH MISC MISCELLANE ONE (05:00)
[2016-09-11] MEDS: SODIUM CHLORIDE 0.9% 1,000 ML IV SCH ×3 (05:20→21:22)
[2016-09-11 06:17] LABS: Anion Gap 7 mmol/L; Blood Urea Nitrogen 7 mg/dL (7-17); Carbon Dioxide 24 mmol/L (22-30); Chloride 112 mmol/L (98-107); Glucose 96 mg/dL (74-99); Non-African American GFR(MDRD) >60 (>60 ml/min/1.73 sqM); Potassium 3.5 mmol/L (3.5-5.1); Sodium 143 mmol/L (137-145)
[2016-09-11] MEDS: LEVOTHYROXINE 100 MCG TAB PO SCH (06:30)
--- NOTE | 2016-09-11 08:00 | P.CON ---
Consult Note - . Consult date: 09/11/16 Assessment/Plan:: Subjective: Patient was seen resting at bedside comfortably. Patient voices no complaints. Patient states overall her left lower extremity feels much improved. Objective: Visual inspection of the wounds and left foot shows no significant change in size character and or appearance. There is continued edema and erythema distal aspect of the left hallux. This erythema edema appears somewhat diminished in last 48 hours. Neurovascular status to the foot unchanged. Assessment: Hoffmann grade 3 wound left hallux with resolving and controlled infection. Plan: Exam. Patient at this time is awaiting placement of a PICC line for out patient IV antibiotics. Discussed with patient possible surgical intervention with removal of distal portion of phalanx of the left hallux if continued infection and non-resolving ulceration. Patient will be seen and followed up in the wound care clinic by the appropriate intranet specialist. Will follow patient if necessary for surgical debridement of the left hallux. Thank you for this consult
[2016-09-11] MEDS: LISINOPRIL 20 MG TAB PO SCH ×2 (09:21→21:11)
[2016-09-11] MEDS: LACTOBACILLUS ACIDOPH & BULGAR 1 EACH PACKET PO SCH ×3 (09:21→21:11)
[2016-09-11] MEDS: GABAPENTIN 300 MG CAP PO SCH ×3 (09:22→21:12)
[2016-09-11] MEDS: PREGABALIN 50 MG CAP PO SCH ×3 (09:22→21:22)
[2016-09-11] MEDS: HYDROcodone/APAP 7.5-325MG 1 EACH TAB PO PRN ×2 (10:33→23:47)
[2016-09-11] MEDS: CHOLESTYRAMINE (WITH SUGAR) 4 GM PACKET PO SCH ×2 (14:30→17:27)
[2016-09-11] MEDS: ENOXAPARIN 40 MG/0.4 ML SYRINGE SQ SCH (18:37)
--- NOTE | 2016-09-11 18:57 | XR ---
EXAMINATION TYPE: XR chest 1V DATE OF EXAM: 09/11/2016 5:42 PM COMPARISON: NONE HISTORY: Foot infection, placement TECHNIQUE: Single frontal view of the chest is obtained. AP upright. FINDINGS: There are prominent soft tissues overlying the chest. This leads to relative underpenetrat ion overall. Given this technical factor, the lungs appear to be clear and well expanded bilaterally. The pleural spaces are negative. Cardiac silhouette is normal. Bones are unremarkable. IMPRESSION: NO ACUTE PROCESS.
--- NOTE | 2016-09-11 21:02 | PN ---
DATE OF SERVICE: 09/11/2016. PRESENTING COMPLAINT: Left heel wound. INTERVAL HISTORY: This is a 61-year-old female who was sent to the hospital with a wound in the left heel and toe wound infection. Today patient is lying in bed, appears comfortable. Left foot is exposed. Physician had just come in and examined her foot. Patient provided me information regarding what was told her. No acute distress noted or voiced. No wheezing. No complaints of pain to the left foot. Review of systems done for constitutional, cardiovascular, GI, pulmonary, with relevant findings as above. CURRENT MEDICATIONS: [place], Benadryl and Lovenox, Neurontin, Synthroid, Lisinopril, Lyrica, vancomycin. PHYSICAL EXAMINATION: VITAL SIGNS: Temperature 97.8, pulse 69, respirations 20, blood pressure 147/75, oxygen saturation 96% on room air. GENERAL APPEARANCE: Patient lying comfortably in bed. No complaints of any distress or pain. Patient does however, complain of diarrhea related to antibiotic therapy. EYES: Pupils equal. Conjunctivae normal. NECK: JVD not raised. Mass not palpable. Lungs diminished bilaterally. RESPIRATORY: Effort normal, unlabored. CARDIOVASCULAR: First and second sounds noted, +2 to 3 edema to bilateral lower extremities. Patient has lymphedema to her bilateral lower extremities. ABDOMEN: Soft, nontender, hyperactive bowel sounds x4. Liver and spleen not palpable. PSYCHIATRY: Alert and oriented x3. Mood and affect are normal. Extremities: Lymphedema to bilateral lower extremities. Flaking skin over the ankle, evidence of necrobiosis and the lipodystrophy, Patient has a recently debrided left heel wound beefy red in color, debridement also done to the top of the left great toe as well as subsequent toes on the foot. Nails have been clipped as well. INVESTIGATIONS: Sodium 143, potassium 3.5, BUN 7, creatinine 0.70. ASSESSMENT: 1. Left heel wound having failed outpatient treatment probably from peripheral neuropathy and foot that was casted. 2. Morbid obesity; body mass index of 51.6. 3. Primary osteoarthritis of multiple joints. 4. Essential hypertension. 5. Hypothyroidism. 6. Umbilical hernia. 7. Urinary stress incontinence. 8. Antibiotic associated diarrhea, acute. 9. Left big toe osteomyelitis. PLAN: Patient remains on vancomycin and ceftriaxone per ID recommendations. Imodium and Lactobacillus have been attempted to try and relieve some of the patient's diarrhea; however, unsuccessfully. Added Questran powder to the medication regimen. ID plans to initiate a PICC line for the patient for IV antibiotic therapy at home. Plan of care was discussed with the patient. Patient was seen and examined by nurse practitioner, Rosetta Robles and all elements of the case were discussed with attending, Dr. Magallanes. I performed a history and physical examination of this patient and discussed the same with the dictator. I agree with the dictator's note. Any additional findings/opinions, etc. will be noted.
[2016-09-11] MEDS: NAPROXEN 250 MG TAB PO SCH (21:10)
--- NOTE | 2016-09-11 23:18 | P.PN ---
Subjective Principal diagnosis: Abscess left foot This is a 61-year-old female and known to ID service due to chronic wounds with a left heel wound under the care of Dr. Danielson at the wound healing Center. Patient states that she had a total contact cast placed and the heel wound was healing very well but about [address] Danielson took the cast off she had some redness on the great toe and she was placed on Cipro for a 10 day course which she completed. Last week, patient's thought that things were going very well and the cast was put back on and when it was taken off yesterday there was bleeding from her big toe. Patient was sent from the wound healing center as a direct admission to the medical floor for admission with IV antibiotics due to infected nail bed. There was also consult placed with Dr. Andrew. Patient denies having any fever or chills. She denies having any pain to the foot, numbness or tingling. She does state there was a lot of bleeding yesterday. X-ray of the foot showed a soft tissue deformity in the distal first without osseous abnormality. Diffuse soft tissue swelling greatest within the hindfoot and midfoot with degenerative changes. Wound culture and aerobic culture in progress. Her white count 5.4 with GFR greater than 60. Hemoglobin was 9.9. Patient's been started on ceftriaxone and vancomycin. Patient does complain of diarrhea which she states is significant although she has not had any this morning. She has had some problems with stool incontinence. Pre-albumin done on August 20 was 16. As noted has been seen by vascular surgery and podiatry. The toe ulceration was debrided in the multiple grossly malformed nails were removed by podiatry. Doing somewhat better tonight. Pain is under good control. Is concerned how she is going to handle this entire situation at home. Has now been seen by case management and plans for potential rehab placement are in process. Objective - Vital Signs Vital signs: Vital Signs Temp 97.8 F 09/11/16 15:00 Pulse 69 09/11/16 15:00 Resp 20 09/11/16 15:00 BP 147/75 09/11/16 15:00 Pulse Ox 96 09/11/16 15:00 Intake & Output 09/11/16 09/11/16 09/12/16 06:59 18:59 06:59 Intake Total 322 200 Balance 322 200 Intake: Oral 322 200 Other: # Voids 1 1 1 # Bowel Movements 1 1 1 - Exam Gen: This is a super morbid obese female. She is lying in bed and appears to be in no acute distress. HEENT: Head is atraumatic, normocephalic. Pupils equal, round. Sclerae is anicteric. Conjunctiva pink. Mucous membranes of the mouth are moist. No thrush noted. Dentition is in poor order. NECK: Short and thick. Supple. No JVD. No lymphadenopathy. No thyromegaly. LUNGS: Clear to auscultation. No wheezes or rhonchi. No intercostal retractions. HEART: Regular rate and rhythm. No murmur. Heart sounds are distant. ABDOMEN: Morbidly obese .Soft. Bowel sounds are present. No masses. No tenderness. Large abdominal apron with moisture but no significant redness. Mid abdominal hernia noted. EXTREMITIES: Chronic skin changes to the bilateral lower extremities. Onychomycosis noted bilaterally. Left foot has significant erythema from the toes to the mid foot with drainage from the nail bed on the left great toe. The toes of improved since the nail debridement and ulcer debridement. Chronic ulcer to the heel is stable without purulence. No odor today. NEUROLOGICAL: Patient is awake, alert and oriented x3. Cranial nerves 2 through 12 are grossly intact. - Labs CBC & Chem 7: 09/10/16 09:43 09/11/16 05:22 Labs: Abnormal Lab Results - Last 24 Hours (Table) 09/11/16 Range/Units 05:22 Chloride 112 H (98-107) mmol/L Microbiology - Last 24 Hours (Table) 09/08/16 18:30 Anaerobic Culture - Preliminary Foot - Left Anaerobic Gram Positive Cocci 09/09/16 18:30 Gram Stain - Preliminary Foot - Left Wound Culture - Preliminary Staphylococcus aureus 09/08/16 18:30 Gram Stain - Final Foot - Left Wound Culture - Final Staphylococcus aureus Laboratory Results WBC 4.3 k/uL (3.8-10.6) 09/10/16 09:43 RBC 3.55 m/uL (3.80-5.40) L 09/10/16 09:43 Hgb 10.7 gm/dL (11.4-16.0) L 09/10/16 09:43 Hct 33.2 % (34.0-46.0) L 09/10/16 09:43 MCV 93.7 fL (80.0-100.0) 09/10/16 09:43 MCH 30.0 pg (25.0-35.0) 09/10/16 09:43 MCHC 32.1 g/dL (31.0-37.0) 09/10/16 09:43 RDW 13.7 % (11.5-15.5) 09/10/16 09:43 Plt Count 159 k/uL (150-450) 09/10/16 09:43 Neutrophils % 71 % 09/10/16 09:43 Neutrophils % (Manual) 71.0 % 09/08/16 19:54 Lymphocytes % 14 % 09/10/16 09:43 Lymphocytes % (Manual) 16.0 % 09/08/16 19:54 Monocytes % 8 % 09/10/16 09:43 Monocytes % (Manual) 11.0 % 09/08/16 19:54 Eosinophils % 2 % 09/10/16 09:43 Eosinophils % (Manual) 2.0 % 09/08/16 19:54 Basophils % 0 % 09/10/16 09:43 Neutrophils # 3.1 k/uL (1.3-7.7) 09/10/16 09:43 Neutrophils # (Manual) 3.8 k/uL (1.3-7.7) 09/08/16 19:54 Lymphocytes # 0.6 k/uL (1.0-4.8) L 09/10/16 09:43 Lymphocytes # (Manual) 0.9 k/uL (1.0-4.8) L 09/08/16 19:54 Monocytes # 0.3 k/uL (0-1.0) 09/10/16 09:43 Monocytes # (Manual) 0.6 k/uL (0-1.0) 09/08/16 19:54 Eosinophils # 0.1 k/uL (0-0.7) 09/10/16 09:43 Eosinophils # (Manual) 0.1 k/uL (0-0.7) 09/08/16 19:54 Basophils # 0.0 k/uL (0-0.2) 09/10/16 09:43 Nucleated RBCs 0 /100 WBC (0-0) 09/08/16 19:54 Toxic Granulation Present 09/08/16 19:54 Polychromasia Present 09/08/16 19:54 Hypochromasia Slight 09/10/16 09:43 Sodium 143 mmol/L (137-145) 09/11/16 05:22 Potassium 3.5 mmol/L (3.5-5.1) 09/11/16 05:22 Chloride 112 mmol/L (98-107) H 09/11/16 05:22 Carbon Dioxide 24 mmol/L (22-30) 09/11/16 05:22 Anion Gap 7 mmol/L 09/11/16 05:22 BUN 7 mg/dL (7-17) 09/11/16 05:22 Creatinine 0.70 mg/dL (0.52-1.04) 09/11/16 05:22 Est GFR (MDRD) Af Amer >60 (>60 ml/min/1.73 sqM) 09/11/16 05:22 Est GFR (MDRD) Non-Af >60 (>60 ml/min/1.73 sqM) 09/11/16 05:22 Glucose 96 mg/dL (74-99) 09/11/16 05:22 Calcium 9.0 mg/dL (8.4-10.2) 09/11/16 05:22 Vancomycin Trough 24.5 ug/mL 09/11/16 05:22 C. difficile (EIA) Intrp Negative (Negative) 09/09/16 16:25 Microbiology 09/08/16 18:30 Foot - Left Anaerobic Culture - Preliminary Anaerobic Gram Positive Cocci 09/09/16 18:30 Foot - Left Gram Stain - Preliminary 09/09/16 18:30 Foot - Left Wound Culture - Preliminary Staphylococcus aureus 09/08/16 18:30 Foot - Left Gram Stain - Final 09/08/16 18:30 Foot - Left Wound Culture - Final Staphylococcus aureus Assessment and Plan (1) Ulcer of left heel and midfoot with necrosis of muscle Status: Acute (2) Acute osteomyelitis of toe of left foot Narrative/Plan: Pleasant woman known from the wound healing Center. Is now been seen by vascular surgery as well as podiatry. Is evidence of a significant infection to the left foot. Underlying evaluations include follow-up bone scan and x- rays. To evaluate the possibility of hospitalist of that great toe. Antibiotic therapy with ceftriaxone and vancomycin being utilized some prior cultures. The patient did have some diarrhea and forcefully is negative for C. diff at this time. The plan ongoing supportive care. Pain control appears to be adequate. Local wound care continues. Chronic ulceration to the heel is doing well with the recent total contact cast use as well as other medical Honey. Laboratory reveals evidence of staph aureus at the ulceration to the foot. MSSA. Anaerobic gram-positive cocci are also seen. Antibiotic Therapy with Unasyn is being utilized. Bone scan is positive. Needs an IV placed for intravenous antibiotic therapy for the osteo-mellitus of the foot. Patient does not believe she will be able to care for herself and looking forward to evaluation for potential rehab placement. This would be for wound care, antibiotic therapy and strengthening. Status: Acute (3) Debility Status: Acute
[2016-09-12] MEDS: SODIUM CHLORIDE 0.9% 1,000 ML IV SCH ×3 (06:40→17:23)
[2016-09-12] MEDS: AMPICILLIN-SULBACTAM 3 GM in SODIUM CHLORIDE 0.9% 100 ML IVPB SCH ×3 (06:43→17:24)
[2016-09-12] MEDS: LEVOTHYROXINE 100 MCG TAB PO SCH (06:44)
[2016-09-12] MEDS: NAPROXEN 250 MG TAB PO SCH ×2 (08:10→20:16)
[2016-09-12] MEDS: LACTOBACILLUS ACIDOPH & BULGAR 1 EACH PACKET PO SCH ×3 (08:10→20:16)
[2016-09-12] MEDS: LISINOPRIL 20 MG TAB PO SCH ×2 (08:10→20:17)
[2016-09-12] MEDS: CHOLESTYRAMINE (WITH SUGAR) 4 GM PACKET PO SCH ×3 (08:11→17:25)
[2016-09-12] MEDS ORDERED: LIDOCAINE 2% INJ 20 MG/ML (20 ML MDV) ONE (09:59)
[2016-09-12] MEDS ORDERED: LIDOCAINE 2% INJ 20 MG/ML SQ ONE (10:21)
--- NOTE | 2016-09-12 10:39 | IR ---
PICC LINE PLACEMENT: HISTORY: Infection requiring long-term antibiotic therapy PROCEDURE: Ultrasound and fluoroscopic guidance of PICC line placement. COMPLICATIONS: None ANESTHESIA: 1. 1% Lidocaine locally. FINDINGS/TECHNIQUE: The procedure was explained to the patient. The risks, complications, benefits and alternatives were discussed and any questions were answered. Informed consent was obtained. The patient was placed supine on the fluoroscopic table and prepped and draped in the usual sterile fash ion. Utilizing a 21 gauge needle and sonographic and fluoroscopic guidance, access in the right bas ilic vein was achieved and there is placement of a 0.018 guidewire. The vein is patent. A 4-F sheat h was placed over the guidewire. The guidewire and dilator were removed and a 4-F. PICC line was zachery rachel through the sheath with the tip at the level of the SVC. The sheath was removed, the catheter wa s flushed and sutured into position. The patient was stable throughout the procedure and remained st able upon discharge from the Department of Radiology. The vein puncture was patent under ultrasound. A espinoza scale image was obtained to document patency of the vein punctured. All elements of the maximal barrier technique were utilized. FLUOROSCOPY TIME: 1.4 minutes IMPRESSION: Successful PICC line placement under ultrasound and fluoroscopic guidance.
[2016-09-12] MEDS: PREGABALIN 50 MG CAP PO SCH ×3 (10:59→20:29)
[2016-09-12] MEDS: GABAPENTIN 300 MG CAP PO SCH ×3 (11:00→20:17)
[2016-09-12 11:58] LABS: Anion Gap 8 mmol/L; Blood Urea Nitrogen 6 mg/dL (7-17); Calcium 8.9 mg/dL (8.4-10.2); Carbon Dioxide 25 mmol/L (22-30); Chloride 112 mmol/L (98-107); Glucose 89 mg/dL (74-99); Non-African American GFR(MDRD) >60 (>60 ml/min/1.73 sqM); Potassium 3.8 mmol/L (3.5-5.1); Sodium 145 mmol/L (137-145)
[2016-09-12] MEDS: HYDROcodone/APAP 7.5-325MG 1 EACH TAB PO PRN ×2 (12:43→20:12)
[2016-09-12] MEDS: PSYLLIUM HUSK 100% 6 GM PACKET PO SCH ×2 (17:26→20:25)
[2016-09-12] MEDS: ENOXAPARIN 40 MG/0.4 ML SYRINGE SQ SCH (20:12)
--- NOTE | 2016-09-12 21:46 | PN ---
DATE OF SERVICE: 09/11/2016 ATTENDING NOTE: This patient was seen and examined by me yesterday on 09/11/16. This patient is here with a wound on the foot, possibly osteomyelitis, getting antibiotics. No new issues. Current medications are reviewed. On examination, pulse 69, respiration 20, blood pressure 147/75. GENERAL APPEARANCE: Lying in bed. RESPIRATORY: Effort normal. LUNGS: Very distant breath sounds. CARDIOVASCULAR: First and second sounds normal. No edema. Left foot in a dressing. Wound cultures are growing MSSA/Staphylococcus aureus. ASSESSMENT: 1. Left heel wound, having failed outpatient treatment, probably from peripheral neuropathy, status post incision and drainage. 2. Left big toe osteomyelitis, acute. 3. Antibiotic-associated diarrhea, acute. PLAN: Continue current medication and treatment plan. Care was discussed with the patient. Awaiting PICC line.
--- NOTE | 2016-09-12 22:30 | PN ---
DATE OF SERVICE: 09/12/2016 PRESENTING COMPLAINT: Left heel wound. INTERVAL HISTORY: This is a 61-year-old female who was sent to the hospital with a wound in the left heel and toes. Today patient is lying in bed, appears comfortable. Left foot is covered with a dressing. Patient has multiple questions today regarding discharge planning and has a great deal anxiety regarding discharge planning and where she is going to go and how she is going to get there. Notified case management to follow up on this concern with the patient. Patient is in no acute distress. No wheezing, no complaints of heel or foot pain. Review of systems done for constitutional, cardiovascular, GI, pulmonary with relevant findings as above. CURRENT MEDICATIONS: 1. [place]. 2. Benadryl. 3. Lovenox. 4. Neurontin. 5. Synthroid. 6. Lisinopril. 7. Lyrica. 8. Unasyn. PHYSICAL EXAMINATION: VITAL SIGNS: Temperature 97.9, pulse 71, respiratory rate 16, blood pressure 128/79, oxygen saturation 92% on room air. GENERAL APPEARANCE: Patient has some anxiety; however, smiling pretty happy. EYES: Pupils equal. Conjunctivae normal. NECK: JVD not raised. Mass not palpable. Lung sounds diminished bilaterally. RESPIRATORY: Effort normal. Unlabored. CARDIOVASCULAR: First and second sounds noted. No edema. ABDOMEN: Soft, nontender. Active bowel sounds x4. Liver and spleen not palpable. PSYCHIATRY: Alert and oriented x3. Mood and affect somewhat anxious. INVESTIGATIONS: Sodium 145, potassium 3.8. BUN 6, creatinine 0.60. Cultures revealed evidence of Staph aureus at the ulceration to the foot. MSSA and aerobic gram positive cocci are also seen. ID's choice of antibiotics is Unasyn. Bone scan is positive for osteomyelitis. ASSESSMENT: 1. Left heel wound having failed outpatient treatment, probably from peripheral neuropathy in foot that was casted, improving. 2. Morbid obesity; body mass index of 51.6. 3. Primary osteoarthritis of multiple joints. 4. Essential hypertension. 5. Hypothyroidism. 6. Umbilical hernia. 7. Urinary stress incontinence. 8. Antibiotic-associated diarrhea; acute, slow to respond. 9. Left big toe osteomyelitis, slow to respond. PLAN: Patient is on Unasyn per ID recommendations. Patient also remains on Imodium and Lactobacillus as well as Questran powder to attempt to relieve patient's diarrhea. PICC line placement scheduled for today for IV antibiotic therapy. Case management notified of patient concerns and the need to discuss discharge planning with the patient. Plan of care was discussed with the patient in great detail and attempt to answer all questions. Patient was seen and examined by Nurse Practitioner Rosetta Robles and all elements of the case were discussed with attending, Dr. Magallanes. I performed a history and physical examination of this patient and discussed the same with the dictator. I agree with the dictator's note. Any additional findings/opinions, etc. will be noted.
--- NOTE | 2016-09-12 23:49 | P.PN ---
Subjective Principal diagnosis: Abscess left foot This is a 61-year-old female and known to ID service due to chronic wounds with a left heel wound under the care of Dr. Danielson at the wound healing Center. Patient states that she had a total contact cast placed and the heel wound was healing very well but about [address] Danielson took the cast off she had some redness on the great toe and she was placed on Cipro for a 10 day course which she completed. Last week, patient's thought that things were going very well and the cast was put back on and when it was taken off yesterday there was bleeding from her big toe. Patient was sent from the wound healing center as a direct admission to the medical floor for admission with IV antibiotics due to infected nail bed. There was also consult placed with Dr. Andrew. Patient denies having any fever or chills. She denies having any pain to the foot, numbness or tingling. She does state there was a lot of bleeding yesterday. X-ray of the foot showed a soft tissue deformity in the distal first without osseous abnormality. Diffuse soft tissue swelling greatest within the hindfoot and midfoot with degenerative changes. Wound culture and aerobic culture in progress. Her white count 5.4 with GFR greater than 60. Hemoglobin was 9.9. Patient's been started on ceftriaxone and vancomycin. Patient does complain of diarrhea which she states is significant although she has not had any this morning. She has had some problems with stool incontinence. Pre-albumin done on August 20 was 16. As noted has been seen by vascular surgery and podiatry. The toe ulceration was debrided in the multiple grossly malformed nails were removed by podiatry. Doing somewhat better tonight. Pain is under good control. Is concerned how she is going to handle this entire situation at home. Has now been seen by case management and plans for potential rehab placement are in process. Objective - Vital Signs Vital signs: Vital Signs Temp 97.5 F L 09/12/16 23:00 Pulse 71 09/12/16 23:00 Resp 18 09/12/16 23:00 BP 179/85 09/12/16 23:00 Pulse Ox 93 L 09/12/16 23:00 Intake & Output 09/12/16 09/12/16 09/13/16 06:59 18:59 06:59 Intake Total 60 480 Balance 60 480 Intake: Oral 60 480 Other: # Voids 0 4 1 # Bowel Movements 0 1 - Exam Gen: This is a super morbid obese female. She is lying in bed and appears to be in no acute distress. HEENT: Head is atraumatic, normocephalic. Pupils equal, round. Sclerae is anicteric. Conjunctiva pink. Mucous membranes of the mouth are moist. No thrush noted. Dentition is in poor order. NECK: Short and thick. Supple. No JVD. No lymphadenopathy. No thyromegaly. LUNGS: Clear to auscultation. No wheezes or rhonchi. No intercostal retractions. HEART: Regular rate and rhythm. No murmur. Heart sounds are distant. ABDOMEN: Morbidly obese .Soft. Bowel sounds are present. No masses. No tenderness. Large abdominal apron with moisture but no significant redness. Mid abdominal hernia noted. EXTREMITIES: Chronic skin changes to the bilateral lower extremities. Onychomycosis noted bilaterally. Left foot has significant erythema from the toes to the mid foot with drainage from the nail bed on the left great toe. The toes of improved since the nail debridement and ulcer debridement. Chronic ulcer to the heel is stable without purulence. No odor today. NEUROLOGICAL: Patient is awake, alert and oriented x3. - Labs CBC & Chem 7: 09/10/16 09:43 09/12/16 11:01 Labs: Abnormal Lab Results - Last 24 Hours (Table) 09/12/16 Range/Units 11:01 Chloride 112 H (98-107) mmol/L BUN 6 L (7-17) mg/dL Microbiology - Last 24 Hours (Table) 09/08/16 18:30 Anaerobic Culture - Final Foot - Left Anaerobic Gram Positive Cocci 09/09/16 18:30 Gram Stain - Final Foot - Left Wound Culture - Final Staphylococcus aureus Laboratory Results WBC 4.3 k/uL (3.8-10.6) 09/10/16 09:43 RBC 3.55 m/uL (3.80-5.40) L 09/10/16 09:43 Hgb 10.7 gm/dL (11.4-16.0) L 09/10/16 09:43 Hct 33.2 % (34.0-46.0) L 09/10/16 09:43 MCV 93.7 fL (80.0-100.0) 09/10/16 09:43 MCH 30.0 pg (25.0-35.0) 09/10/16 09:43 MCHC 32.1 g/dL (31.0-37.0) 09/10/16 09:43 RDW 13.7 % (11.5-15.5) 09/10/16 09:43 Plt Count 159 k/uL (150-450) 09/10/16 09:43 Neutrophils % 71 % 09/10/16 09:43 Neutrophils % (Manual) 71.0 % 09/08/16 19:54 Lymphocytes % 14 % 09/10/16 09:43 Lymphocytes % (Manual) 16.0 % 09/08/16 19:54 Monocytes % 8 % 09/10/16 09:43 Monocytes % (Manual) 11.0 % 09/08/16 19:54 Eosinophils % 2 % 09/10/16 09:43 Eosinophils % (Manual) 2.0 % 09/08/16 19:54 Basophils % 0 % 09/10/16 09:43 Neutrophils # 3.1 k/uL (1.3-7.7) 09/10/16 09:43 Neutrophils # (Manual) 3.8 k/uL (1.3-7.7) 09/08/16 19:54 Lymphocytes # 0.6 k/uL (1.0-4.8) L 09/10/16 09:43 Lymphocytes # (Manual) 0.9 k/uL (1.0-4.8) L 09/08/16 19:54 Monocytes # 0.3 k/uL (0-1.0) 09/10/16 09:43 Monocytes # (Manual) 0.6 k/uL (0-1.0) 09/08/16 19:54 Eosinophils # 0.1 k/uL (0-0.7) 09/10/16 09:43 Eosinophils # (Manual) 0.1 k/uL (0-0.7) 09/08/16 19:54 Basophils # 0.0 k/uL (0-0.2) 09/10/16 09:43 Nucleated RBCs 0 /100 WBC (0-0) 09/08/16 19:54 Toxic Granulation Present 09/08/16 19:54 Polychromasia Present 09/08/16 19:54 Hypochromasia Slight 09/10/16 09:43 Sodium 145 mmol/L (137-145) 09/12/16 11:01 Potassium 3.8 mmol/L (3.5-5.1) 09/12/16 11:01 Chloride 112 mmol/L (98-107) H 09/12/16 11:01 Carbon Dioxide 25 mmol/L (22-30) 09/12/16 11:01 Anion Gap 8 mmol/L 09/12/16 11:01 BUN 6 mg/dL (7-17) L 09/12/16 11:01 Creatinine 0.60 mg/dL (0.52-1.04) 09/12/16 11:01 Est GFR (MDRD) Af Amer >60 (>60 ml/min/1.73 sqM) 09/12/16 11:01 Est GFR (MDRD) Non-Af >60 (>60 ml/min/1.73 sqM) 09/12/16 11:01 Glucose 89 mg/dL (74-99) 09/12/16 11:01 Calcium 8.9 mg/dL (8.4-10.2) 09/12/16 11:01 Vancomycin Trough 24.5 ug/mL 09/11/16 05:22 C. difficile (EIA) Intrp Negative (Negative) 09/09/16 16:25 Microbiology 09/08/16 18:30 Foot - Left Anaerobic Culture - Final Anaerobic Gram Positive Cocci 09/09/16 18:30 Foot - Left Gram Stain - Final 09/09/16 18:30 Foot - Left Wound Culture - Final Staphylococcus aureus 09/08/16 18:30 Foot - Left Gram Stain - Final 09/08/16 18:30 Foot - Left Wound Culture - Final Staphylococcus aureus Assessment and Plan (1) Ulcer of left heel and midfoot with necrosis of muscle Status: Acute (2) Acute osteomyelitis of toe of left foot Narrative/Plan: Pleasant woman known from the wound healing Center. Is now been seen by vascular surgery as well as podiatry. Is evidence of a significant infection to the left foot. Underlying evaluations include follow-up bone scan and x- rays. To evaluate the possibility of hospitalist of that great toe. Antibiotic therapy with ceftriaxone and vancomycin being utilized some prior cultures. The patient did have some diarrhea and forcefully is negative for C. diff at this time. The plan ongoing supportive care. Pain control appears to be adequate. Local wound care continues. Chronic ulceration to the heel is doing well with the recent total contact cast use as well as other medical Honey. Laboratory reveals evidence of staph aureus at the ulceration to the foot. MSSA. Anaerobic gram-positive cocci are also seen. Antibiotic Therapy with Unasyn is being utilized. Bone scan is positive. PICC line has been placed for intravenous antibiotic therapy for the osteo- myelitis of the foot. Patient does not believe she will be able to care for herself and looking forward to evaluation for potential rehab placement. This would be for wound care, antibiotic therapy and strengthening. Status: Acute (3) Debility Status: Acute
[2016-09-13] MEDS: HYDROcodone/APAP 7.5-325MG 1 EACH TAB PO PRN (01:08)
[2016-09-13] MEDS: AMPICILLIN-SULBACTAM 3 GM in SODIUM CHLORIDE 0.9% 100 ML IVPB SCH ×5 (02:28→23:28)
[2016-09-13] MEDS: SODIUM CHLORIDE 0.9% 1,000 ML IV SCH ×3 (05:43→11:24)
[2016-09-13] MEDS: LEVOTHYROXINE 100 MCG TAB PO SCH (06:46)
[2016-09-13] MEDS: GABAPENTIN 300 MG CAP PO SCH ×3 (09:21→20:00)
[2016-09-13] MEDS: CHOLESTYRAMINE (WITH SUGAR) 4 GM PACKET PO SCH ×3 (09:22→17:28)
[2016-09-13] MEDS: LACTOBACILLUS ACIDOPH & BULGAR 1 EACH PACKET PO SCH ×3 (09:22→20:04)
[2016-09-13] MEDS: NAPROXEN 250 MG TAB PO SCH ×2 (09:22→19:59)
[2016-09-13] MEDS: LISINOPRIL 20 MG TAB PO SCH ×2 (09:22→20:00)
[2016-09-13] MEDS: PSYLLIUM HUSK 100% 6 GM PACKET PO SCH ×2 (09:36→20:04)
[2016-09-13] MEDS: PREGABALIN 50 MG CAP PO SCH ×3 (09:36→20:08)
[2016-09-13 09:41] LABS: CH 29.4; CHCM 31.5; HCT 30.4 % (34.0-46.0); HDW 2.97; HGB 9.7 gm/dL (11.4-16.0); Hypochromasia Slight; MCH 30.1 pg (25.0-35.0); Mean Platelet Volume 8.7; RBC 3.24 m/uL (3.80-5.40); WBC 5.1 k/uL (3.8-10.6)
--- NOTE | 2016-09-13 10:17 | PN ---
DATE OF SERVICE: 09/12/2016 ATTENDING NOTE: This patient was seen and examined by yesterday. I reviewed the note of my nurse practitioner Ms. Robles and discussed with her. Patient is status post debridement of the left heel wound and the left big toe wound. Patient's mycotic nails also have been removed. Patient is growing MSSA. Discharge planning is in place as per socially responsible investment adviser. The patient is otherwise comfortable. Diarrhea is actually somewhat better, about 4 times a day. On examination, lying in bed, comfortable. Blood pressure 120/79. Afebrile. LUNGS: Distant breath sounds. CARDIOVASCULAR: First and second sounds normal. ABDOMEN: Soft, nontender. INVESTIGATIONS: Potassium 3.8. Wound cultures are growing MSSA. ASSESSMENT: 1. Left toe osteomyelitis with cultures positive for methicillin-susceptible Staphylococcus aureus, on IV antibiotics, status post debridement. 2. Left heel wound, having failed outpatient treatment, probably from peripheral neuropathy, status post debridement. 3. Removal of some mycotic fungal nails. 4. Antibiotic-associated diarrhea. PLAN: Metamucil will be added. Antibiotics are to continue. Discharge planning in place. PICC line placement in place. Care discussed with the patient.
[2016-09-13 10:18] LABS: Anion Gap 7 mmol/L; Blood Urea Nitrogen 7 mg/dL (7-17); Calcium 8.7 mg/dL (8.4-10.2); Carbon Dioxide 24 mmol/L (22-30); Chloride 113 mmol/L (98-107); Glucose 90 mg/dL (74-99); Non-African American GFR(MDRD) >60 (>60 ml/min/1.73 sqM); Potassium 3.5 mmol/L (3.5-5.1); Sodium 144 mmol/L (137-145)
--- NOTE | 2016-09-13 19:27 | PN ---
DATE OF SERVICE: 09/13/2016 PRESENTING COMPLAINT: Left heel wound. INTERVAL HISTORY: This patient is status post debridement of the left heel wound and left big toe. Patient is sitting up in the bed, awake and alert. Continues to have diarrhea; however, but improving. Patient does not complain of any pain to the left foot, toe or heel. Patient appears comfortable. Review of systems done for constitutional, cardiovascular, GI, pulmonary with relevant findings as above. CURRENT MEDICATIONS: [place], Benadryl, Lovenox, Neurontin, Synthroid, lisinopril, Lyrica, Unasyn. PHYSICAL EXAMINATION: VITAL SIGNS: Temperature 97.6, pulse 64, respirations 18, blood pressure 147/79, oxygen saturation 94% on room air. GENERAL APPEARANCE: Patient appears relaxed comfortable, lying in her bed. EYES: Pupils equal. Conjunctivae normal. NECK: JVD not raised. Mass not palpable. LUNGS: Diminished throughout. RESPIRATORY: Effort normal. CARDIOVASCULAR: First and second sounds noted. ABDOMEN: Soft, nontender. Active bowel sounds x4. Liver and spleen not palpable. PSYCHIATRY: Alert and oriented x3. Mood and affect normal. INVESTIGATIONS: White blood cell count 5.1, hemoglobin 9.7, platelets 140, sodium 144, potassium 3.5, BUN 7, creatinine 0.62. Deep tissue culture positive for MSSA. ASSESSMENT: 1. Left toe osteomyelitis with current cultures positive for methicillin susceptible Staphylococcus aureus, on IV antibiotics, status post debridement. 2. Left heel wound, having failed outpatient treatment probably from peripheral neuropathy, status post debridement. 3. Removal of some mycotic fungal nails. 4. Antibiotic associated diarrhea, improving. 5. Morbid obesity; body mass index of 51.6. 6. Primary osteoarthritis of multiple joints. 7. Essential hypertension. 8. Hypothyroidism. 9. Umbilical hernia. 10. Urinary stress incontinence. PLAN: Metamucil was added to patient's regimen. Antibiotics will continue. Discharge planning on going. PICC line placed. Discussed plan of care with patient. Will continue to monitor. Patient was seen and examined by nurse practitioner, Rosetta Robles, and all elements of the case discussed with the attending, Dr. Magallanes.
[2016-09-13] MEDS: ENOXAPARIN 40 MG/0.4 ML SYRINGE SQ SCH (19:59)
[2016-09-14] MEDS: HYDROcodone/APAP 7.5-325MG 1 EACH TAB PO PRN ×2 (03:51→23:13)
[2016-09-14] MEDS: AMPICILLIN-SULBACTAM 3 GM in SODIUM CHLORIDE 0.9% 100 ML IVPB SCH ×3 (05:15→16:57)
[2016-09-14] MEDS: LEVOTHYROXINE 100 MCG TAB PO SCH (07:31)
[2016-09-14] MEDS: CHOLESTYRAMINE (WITH SUGAR) 4 GM PACKET PO SCH ×3 (08:25→16:57)
[2016-09-14] MEDS: LACTOBACILLUS ACIDOPH & BULGAR 1 EACH PACKET PO SCH ×3 (08:25→21:22)
[2016-09-14] MEDS: LISINOPRIL 20 MG TAB PO SCH ×2 (08:26→21:19)
[2016-09-14] MEDS: NAPROXEN 250 MG TAB PO SCH ×2 (08:26→21:20)
[2016-09-14] MEDS: GABAPENTIN 300 MG CAP PO SCH ×3 (08:26→21:20)
[2016-09-14] MEDS: PREGABALIN 50 MG CAP PO SCH ×3 (08:27→21:19)
[2016-09-14] MEDS: PSYLLIUM HUSK 100% 6 GM PACKET PO SCH ×2 (08:31→21:18)
--- NOTE | 2016-09-14 09:21 | PN ---
This patient was examined by me earlier today. I reviewed the note of my nurse practitioner, Ms. Robles and discussed with her. Patient getting IV antibiotics for osteomyelitis. Awaiting home antibiotics/rehab as per oncology social work. The patient diarrhea is actually better controlled. On exam: ABDOMEN: Soft, nontender. LUNGS: Fair air entry. INVESTIGATIONS: White count 5.1, hemoglobin 9.7. ASSESSMENT: 1. Left osteomyelitis with cultures positive for Methicillin-susceptible Staph aureus on IV antibiotics. 2. Status post left heel wound debridement. PLAN: Continue current medication and treatment plan and follow. Care was discussed with the patient. PICC line in place.
--- NOTE | 2016-09-14 20:36 | PN ---
DATE OF SERVICE: 09/14/2016 This patient is status post debridement of the left heel wound and left big toe. Today patient is sitting up in bed, awake, alert. Continues to have diarrhea; however, improving. Patient has no complaints of any pain to the left foot, toe or heel. Her biggest complaint at this time is the diarrhea. Review of systems done for constitutional, cardiovascular, GI, pulmonary, with relevant findings as above. CURRENT MEDICATIONS: [place], Benadryl, Lovenox, Neurontin, Synthroid, Lisinopril, Lyrica, Unasyn. PHYSICAL EXAMINATION: VITAL SIGNS: Temperature 97.2, pulse 68, respirations 16, blood pressure 131/85, oxygen saturation 91% on room air. GENERAL APPEARANCE: Patient is lying in bed, appears comfortable. EYES: Pupils equal. Conjunctivae normal. NECK: JVD not raised. Mass not palpable. Lung sounds diminished throughout bilaterally. RESPIRATORY: Effort normal, unlabored. CARDIOVASCULAR: First and second sounds noted. No edema. ABDOMEN: Soft, nontender. Active bowel sounds x4. Liver and spleen not palpable. PSYCHIATRY: Alert and oriented x3. Mood and affect are normal. MUSCULOSKELETAL: Left foot with dressing in place, dressing taken down to examine toes, toe and heel are healing nicely. INVESTIGATIONS: White blood cell count 5.1, hemoglobin 9.7, platelet count 140, sodium 144, potassium 3.5, BUN 7, creatinine 0.62. ASSESSMENT: 1. Left osteomyelitis with cultures positive for methicillin susceptible Staph aureus on IV antibiotics. 2. Status post left heel wound debridement. 3. Removal of some mycotic fungal nails. 4. Antibiotic associated diarrhea improving slowly. 5. Morbid obesity; body mass index 51.6. 6. Primary osteoarthritis of multiple joints. 7. Essential hypertension. 8. Hypothyroidism. 9. Umbilical hernia. 10. Urinary stress incontinence. PLAN: Imodium was added back to the patient's regimen. Antibiotics will continue. Discharge planning ongoing. PICC line placed. Discussed plan of care with the patient. Will continue to monitor. Patient was seen and examined by nurse practitioner, Rosetta Robles, and all elements of the case discussed with attending, Dr. Magallanes. I performed a history and physical examination of this patient and discussed the same with the dictator. I agree with the dictator's note. Any additional findings/opinions, etc. will be noted.
[2016-09-14] MEDS: ENOXAPARIN 40 MG/0.4 ML SYRINGE SQ SCH (21:19)
[2016-09-15] MEDS: AMPICILLIN-SULBACTAM 3 GM in SODIUM CHLORIDE 0.9% 100 ML IVPB SCH ×3 (00:25→11:01)
[2016-09-15] MEDS: LEVOTHYROXINE 100 MCG TAB PO SCH (06:54)
[2016-09-15] MEDS ORDERED: DIPHENOX-ATROP 2.5-0.025 MG 1 EACH TAB PO PRN (08:32)
[2016-09-15] MEDS: PSYLLIUM HUSK 100% 6 GM PACKET PO SCH (08:44)
[2016-09-15] MEDS: LISINOPRIL 20 MG TAB PO SCH (08:44)
[2016-09-15] MEDS: LACTOBACILLUS ACIDOPH & BULGAR 1 EACH PACKET PO SCH ×2 (08:44→15:15)
[2016-09-15] MEDS: NAPROXEN 250 MG TAB PO SCH (08:44)
--- NOTE | 2016-09-15 09:44 | PN ---
DATE OF SERVICE: 09/14/2016 ATTENDING NOTE: This patient was seen and examined by me yesterday and I reviewed the note of my nurse practitioner, Ms. Robles and discussed with her. Patient is status post left heel and big toe debridement, being treated for osteomyelitis with IV antibiotics. Placement comfortable. Patient is getting 3 to 4 bowel movements a day, negative C. diff. Patient's appetite is not too good. On examination, LUNGS: Distant breath sounds. ABDOMEN: Soft, nontender. PSYCH: Awake, alert. INVESTIGATIONS: White count 5.1, hemoglobin 9.7. Potassium 3.5. ASSESSMENT: 1. Antibiotic-associated diarrhea. 2. Left big toe osteomyelitis with cultures positive for methicillin-sensitive Staphylococcus aureus. 3. Left heel wound from peripheral neuropathy, status post debridement. PLAN: Continue current medication and treatment plan. Awaiting placement.
[2016-09-15] MEDS: GABAPENTIN 300 MG CAP PO SCH ×2 (10:59→14:04)
[2016-09-15] MEDS: PREGABALIN 50 MG CAP PO SCH ×2 (10:59→14:04)
[2016-09-15] MEDS: CHOLESTYRAMINE (WITH SUGAR) 4 GM PACKET PO SCH ×2 (10:59→14:05)
[2016-09-15 11:02] LABS: Basophils % (A) 1 %; CH 29.5; CHCM 31.6; Eosinophils # (A) 0.1 k/uL (0-0.7); Eosinophils % (A) 1 %; HCT 32.9 % (34.0-46.0); HDW 2.97; HGB 10.5 gm/dL (11.4-16.0); Hypochromasia Slight; Luc # (Auto) 0.14; Luc % (Auto) 3; Lymphocytes # (A) 0.5 k/uL (1.0-4.8); Lymphocytes % (A) 9 %; MCHC 31.9 g/dL (31.0-37.0); Mean Platelet Volume 8.5; Monocytes # (A) 0.3 k/uL (0-1.0); Monocytes % (A) 6 %; Neutrophils # (A) 4.5 k/uL (1.3-7.7); Neutrophils % (A) 81 %; RDW 13.9 % (11.5-15.5); WBC 5.6 k/uL (3.8-10.6); WBC (Perox) 5.94
[2016-09-15 11:18] LABS: Anion Gap 10 mmol/L; Blood Urea Nitrogen 7 mg/dL (7-17); Calcium 9.1 mg/dL (8.4-10.2); Carbon Dioxide 26 mmol/L (22-30); Chloride 109 mmol/L (98-107); Glucose 96 mg/dL (74-99); Non-African American GFR(MDRD) >60 (>60 ml/min/1.73 sqM); Potassium 3.5 mmol/L (3.5-5.1); Sodium 145 mmol/L (137-145)
[2016-09-15] MEDS ORDERED: ERTAPENEM 1 GM in SODIUM CHLORIDE 0.9% 50 ML IVPB SCH (13:00)
--- NOTE | 2016-09-15 15:06 | DS ---
DATE OF ADMISSION: 09/08/2016 DATE OF DISCHARGE: 09/15/2016 FINAL DIAGNOSES: 1. Left big toe osteomyelitis having failed outpatient treatment with cultures growing methicillin-susceptible Staphylococcus aureus. 2. Left heel wound secondary to peripheral neuropathy having failed outpatient treatment. The foot was in a cast. 3. Morbid obesity, body mass index of 51.6. 4. Primary osteoarthritis of multiple joints, bilateral. 5. Essential hypertension. 6. Hypothyroidism. 7. Umbilical hernia. 8. Chronic urinary stress incontinence. HOSPITAL COURSE: This is a pleasant 61-year-old patient of Dr. Mcfarlane who has a long-standing wound on the left heel. Patient was in a cast for about 4 weeks and was taken off 3 weeks ago. After 2 weeks, the wound broke down again and cast was put back on, has been on for about 2 weeks and cast was taken off the day prior to presentation. The patient was found to have a small foul-smelling drain of the left heel wound and also infection and ( ) of the left big toe. Patient was seen by Dr. Andrew, the manager etl who did scraping of the left big toe and also left heel was debrided. Patient's culture did come back showing MSSA. Patient also underwent a bone scan that was quite indicative of osteomyelitis. Dressing changes were continued as per ID and Dr. Andrew. Patient's pain is controlled. Patient also had some diarrhea, came back negative for C. diff. Doing relatively better. Patient's appetite has dwindled, pretty much has been in bed. CONSULTATIONS: 1. Dr. Suazo from Infectious Disease. 2. Dr. nAdrew from Podiatry. 3. Dr. Erica Danielson from Vascular Surgery. Labs today white count is 5.6, hemoglobin is 10.5, potassium is 3.5. On examination, LUNGS: Decreased breath sounds. CARDIOVASCULAR: First and second sounds normal. Left foot in a dressing. DISCHARGE MEDICATIONS: 1. Synthroid 100 mcg p.o. daily. 2. Zestril 20 mg b.i.d. 3. Questran 4 gm p.o. t.i.d. with meals. 4. Lomotil 1 tablet q.6 p.r.n. for diarrhea. 5. Invanz 1 gm IV piggyback total of 40 vials. 6. Neurontin 600 mg p.o. b.i.d. 7. Neurontin 900 mg p.o. q.h.s. 8. Gilead 7.5 one tablet q.6 p.r.n. 9. Lactinex 1 tablet p.o. t.i.d. 10. Zestril 20 mg b.i.d. 11. Naproxen 250 mg p.o. b.i.d. 12. Metamucil 6 gm p.o. b.i.d. DISPOSITION: [facility]. Follow up with Dr. Andrew in 1 week, Dr. Suazo in 3 weeks, Dr. Erica Danielson in [address] Mcfarlane at the [facility]. LABS: CBC, ER weekly. Wound care as per Dr. Andrew and Dr. Suazo.
[2016-09-15 15:46] VITALS: BP 180/79; PULSE 70; RESP 18; TEMP 97.1
--- NOTE | 2016-09-15 19:32 | P.PN ---
Subjective Principal diagnosis: Abscess left foot This is a 61-year-old female and known to ID service due to chronic wounds with a left heel wound under the care of Dr. Danielson at the wound healing Center. Patient states that she had a total contact cast placed and the heel wound was healing very well but about [address] Danielson took the cast off she had some redness on the great toe and she was placed on Cipro for a 10 day course which she completed. Last week, patient's thought that things were going very well and the cast was put back on and when it was taken off yesterday there was bleeding from her big toe. Patient was sent from the wound healing center as a direct admission to the medical floor for admission with IV antibiotics due to infected nail bed. There was also consult placed with Dr. Andrew. Patient denies having any fever or chills. She denies having any pain to the foot, numbness or tingling. She does state there was a lot of bleeding yesterday. X-ray of the foot showed a soft tissue deformity in the distal first without osseous abnormality. Diffuse soft tissue swelling greatest within the hindfoot and midfoot with degenerative changes. Wound culture and aerobic culture in progress. Her white count 5.4 with GFR greater than 60. Hemoglobin was 9.9. Patient's been started on ceftriaxone and vancomycin. Patient does complain of diarrhea which she states is significant although she has not had any this morning. She has had some problems with stool incontinence. Pre-albumin done on August 20 was 16. As noted has been seen by vascular surgery and podiatry. The toe ulceration was debrided in the multiple grossly malformed nails were removed by podiatry. Doing somewhat better tonight. Pain is under good control. Is concerned how she is going to handle this entire situation at home. Has now been seen by case management and plans for potential rehab placement are in process. Objective - Vital Signs Vital signs: Vital Signs Temp 97.1 F L 09/15/16 15:00 Pulse 70 09/15/16 15:00 Resp 18 09/15/16 15:00 BP 180/79 09/15/16 15:00 Pulse Ox 93 L 09/15/16 15:00 Intake & Output 09/15/16 09/15/16 09/16/16 06:59 18:59 06:59 Intake Total 200 Balance 200 Weight 153.91 kg Intake: Oral 200 Other: # Voids 1 5 # Bowel Movements 2 - Exam Gen: This is a super morbid obese female. She is lying in bed and appears to be in no acute distress. HEENT: Head is atraumatic, normocephalic. Pupils equal, round. Sclerae is anicteric. Conjunctiva pink. Mucous membranes of the mouth are moist. No thrush noted. Dentition is in poor order. NECK: Short and thick. Supple. No JVD. No lymphadenopathy. No thyromegaly. LUNGS: Clear to auscultation. No wheezes or rhonchi. No intercostal retractions. HEART: Regular rate and rhythm. No murmur. Heart sounds are distant. ABDOMEN: Morbidly obese .Soft. Bowel sounds are present. No masses. No tenderness. Large abdominal apron with moisture but no significant redness. Mid abdominal hernia noted. EXTREMITIES: Chronic skin changes to the bilateral lower extremities. Onychomycosis noted bilaterally. Left foot has significant erythema from the toes to the mid foot with drainage from the nail bed on the left great toe. The toes of improved since the nail debridement and ulcer debridement. Chronic ulcer to the heel is stable without purulence. No odor today. NEUROLOGICAL: Patient is awake, alert and oriented x3. - Labs CBC & Chem 7: 09/15/16 10:46 09/15/16 10:46 Labs: Abnormal Lab Results - Last 24 Hours (Table) 09/15/16 09/15/16 Range/Units 10:46 10:46 RBC 3.50 L (3.80-5.40) m/uL Hgb 10.5 L (11.4-16.0) gm/dL Hct 32.9 L (34.0-46.0) % Lymphocytes # 0.5 L (1.0-4.8) k/uL Chloride 109 H (98-107) mmol/L Assessment and Plan (1) Ulcer of left heel and midfoot with necrosis of muscle Status: Acute (2) Acute osteomyelitis of toe of left foot Narrative/Plan: Pleasant woman known from the wound healing Center. Is now been seen by vascular surgery as well as podiatry. Is evidence of a significant infection to the left foot. Underlying evaluations include follow-up bone scan and x- rays. To evaluate the possibility of hospitalist of that great toe. Antibiotic therapy with ceftriaxone and vancomycin being utilized some prior cultures. The patient did have some diarrhea and forcefully is negative for C. diff at this time. The plan ongoing supportive care. Pain control appears to be adequate. Local wound care continues. Chronic ulceration to the heel is doing well with the recent total contact cast use as well as other medical Honey. Laboratory reveals evidence of staph aureus at the ulceration to the foot. MSSA. Anaerobic gram-positive cocci are also seen. Antibiotic Therapy with Unasyn is being utilized. Bone scan is positive. PICC line has been placed for intravenous antibiotic therapy for the osteo- myelitis of the foot. Will transfer to [facility] today, This would be for wound care , antibiotic therapy and strengthening. Status: Acute (3) Debility Status: Acute
--- NOTE | 2016-09-17 15:21 | CDI ---
In responding to this query, please exercise your independent professional judgment. The [facility] Coding Staff and Clinical Documentation Specialists appreciate your assistance in clarifying documentation, maintaining compliance with coding guidelines, accurately documenting patients condition and capturing severity of illness. The fact that a question is asked does not imply that any particular answer is desired or expected. Communication forms are a method of clarifying documentation and are not made part of the Legal Health Record. Thank you in advance for your clarification. Last Revision, February [address] [facility] [place] [address] Documentation Clarification Form Date: 09/17/2016 3:14:00 PM From: Mary Chowdary Admit Date: 09/08/2016 4:04:00 PM Patient Name: Darling Spicer Visit Number: [id number] Discharge Date: 09/17/16 Dr. Ayden Andrew Per your consultaion a debridement was performed on left great toe and nails. Treatment: Discharged home on IV antibiotics to treat acute osteomyelitis. In order to capture the severity of condition and code the appropriate procedure could you please document if the debridement was excisional or nonexcisional: Excisional debridement (the removal of necrotic, devitalized tissue or slough by means of cutting away of tissue) Non-excisional debridement (the removal of necrotic, devitalized tissue or slough by means of flushing, brushing, or washing. (Irrigation) Other; with explanation for clinical findings Unable to determine (no explanation for clinical findings) Please document in your consultation in order to capture severity of illness and risk of mortality. Include clinical findings that support your diagnosis. FYI: Press F11 to launch patient chart. Place X here if this finding has no clinical significance, is not applicable or if you are not able to provide any additional documentation. NANY Roper, CCS, [facility] Certified I-10 Strategic Planning Director/Replanting Machine Operator/Strategic Planning Director II If you have any questions or concerns please contact Jazmin Ramirez, Sliver Cutter, Jeannine Magaña @ [phone] [facility]
--- NOTE | 2016-09-23 14:45 | CDI ---
In responding to this query, please exercise your independent professional judgment. The [facility] Coding Staff and Clinical Documentation Specialists appreciate your assistance in clarifying documentation, maintaining compliance with coding guidelines, accurately documenting patients condition and capturing severity of illness. The fact that a question is asked does not imply that any particular answer is desired or expected. Communication forms are a method of clarifying documentation and are not made part of the Legal Health Record. Thank you in advance for your clarification. Last Revision, February 2015 Jeannine Magaña [address] [facility] [place] [address] Documentation Clarification Form Date: 09/17/2016 3:14:00 PM From: Mary Chowdary Admit Date: 09/08/2016 4:04:00 PM Patient Name: Darling Spicer Visit Number: [id number] Discharge Date: 09/23/16 Dr. Ayden Andrew Per your 09/09 consultaion a debridement was performed on left great toe. Treatment: Discharged home on IV antibiotics to treat acute osteomyelitis. In order to capture the severity of condition and code the appropriate procedure could you please document if the debridement was excisional or nonexcisional: Excisional debridement (the removal of necrotic, devitalized tissue or slough by means of cutting away of tissue) Non-excisional debridement (the removal of necrotic, devitalized tissue or slough by means of flushing, brushing, or washing. (Irrigation) Other; with explanation for clinical findings Unable to determine (no explanation for clinical findings) Please document addendum in your consultation in order to capture severity of illness and risk of mortality. Include clinical findings that support your diagnosis. FYI: Press F11 to launch patient chart. Place X here if this finding has no clinical significance, is not applicable or if you are not able to provide any additional documentation. NANY Roper, CCS, [facility] Certified I-10 Solution Director/Hedis Nurse/Solution Director II If you have any questions or concerns please contact Jazmin Ramirez, Coutierier, Jeannine Magaña @ [phone] [facility]
--- NOTE | 2016-09-29 09:56 | CDI ---
In responding to this query, please exercise your independent professional judgment. The [facility] Coding Staff and Clinical Documentation Specialists appreciate your assistance in clarifying documentation, maintaining compliance with coding guidelines, accurately documenting patients condition and capturing severity of illness. The fact that a question is asked does not imply that any particular answer is desired or expected. Communication forms are a method of clarifying documentation and are not made part of the Legal Health Record. Thank you in advance for your clarification. Last Revision, February 2015 Jeannine Magaña [address] [facility] [place] [address] Documentation Clarification Form Date: 09/17/2016 3:14:00 PM From: Mary Chowdary Admit Date: 09/08/2016 4:04:00 PM Patient Name: Darling Spicer Visit Number: [id number] Discharge Date: 09/15/16 Dr. Ayden Andrew Per your 09/09 consultaion a debridement was performed on left great toe. Treatment: Discharged home on IV antibiotics to treat acute osteomyelitis. In order to capture the severity of condition and code the appropriate procedure could you please document if the debridement was excisional or nonexcisional: Excisional debridement (the removal of necrotic, devitalized tissue or slough by means of cutting away of tissue) Non-excisional debridement (the removal of necrotic, devitalized tissue or slough by means of flushing, brushing, or washing. (Irrigation) Other; with explanation for clinical findings Unable to determine (no explanation for clinical findings) Please document addendum in your consultation in order to capture severity of illness and risk of mortality. Include clinical findings that support your diagnosis. FYI: Press F11 to launch patient chart. Place X here if this finding has no clinical significance, is not applicable or if you are not able to provide any additional documentation. NANY Roper, CCS, [facility] Certified I-10 Regional Planner/Extruder Operator Helper/Regional Planner II If you have any questions or concerns please contact Jazmin Ramirez, Sap Technical Developer, Jeannine Magaña @ [phone] [facility]
== END 2016-09-15 17:24 | DRG 464 ==
LOC: 4MS4W 16:04
PROVIDERS: ADMIT Hospitalist; ATTEND Hospitalist
PROC: 0HBRXZZ Excision of Toe Nail, External Approach (ICD-10-PCS; 2016-09-09)
PROC: 0HBRXZZ Excision of Toe Nail, External Approach (ICD-10-PCS; 2016-09-09)
PROC: 0HBRXZZ Excision of Toe Nail, External Approach (ICD-10-PCS; 2016-09-09)
PROC: 0HBRXZZ Excision of Toe Nail, External Approach (ICD-10-PCS; 2016-09-09)
PROC: 0HBRXZZ Excision of Toe Nail, External Approach (ICD-10-PCS; 2016-09-09)
PROC: 0HBRXZZ Excision of Toe Nail, External Approach (ICD-10-PCS; 2016-09-09)
PROC: 0HBRXZZ Excision of Toe Nail, External Approach (ICD-10-PCS; 2016-09-09)
PROC: 0HBRXZZ Excision of Toe Nail, External Approach (ICD-10-PCS; 2016-09-09)
PROC: 0HBRXZZ Excision of Toe Nail, External Approach (ICD-10-PCS; 2016-09-09)
PROC: 0HBRXZZ Excision of Toe Nail, External Approach (ICD-10-PCS; 2016-09-09)
PROC: 0JBR0ZZ Excision of Left Foot Subcutaneous Tissue and Fascia, Open Approach (ICD-10-PCS; 2016-09-09)
PROC: 02HV33Z Insertion of Infusion Device into Superior Vena Cava, Percutaneous Approach (ICD-10-PCS; principal; 2016-09-12 10:00)
PROC: B548ZZA Ultrasonography of Superior Vena Cava, Guidance (ICD-10-PCS; 2016-09-12 10:00)
DX: M86.172 Other acute osteomyelitis, left ankle and foot (principal); L97.429 Non-pressure chronic ulcer of left heel and midfoot with unspecified severity; Z68.43 Body mass index [BMI] 50.0-59.9, adult; K52.1 Toxic gastroenteritis and colitis; E66.01 Morbid (severe) obesity due to excess calories; L03.116 Cellulitis of left lower limb; I10 Essential (primary) hypertension; L02.612 Cutaneous abscess of left foot; G62.9 Polyneuropathy, unspecified; L97.521 Non-pressure chronic ulcer of other part of left foot limited to breakdown of skin; T36.95XA Adverse effect of unspecified systemic antibiotic, initial encounter; A49.01 Methicillin susceptible Staphylococcus aureus infection, unspecified site; N39.3 Stress incontinence (female) (male); E03.9 Hypothyroidism, unspecified; M19.91 Primary osteoarthritis, unspecified site; K42.9 Umbilical hernia without obstruction or gangrene; I89.0 Lymphedema, not elsewhere classified; B35.1 Tinea unguium; F41.9 Anxiety disorder, unspecified; D64.9 Anemia, unspecified; Z90.49 Acquired absence of other specified parts of digestive tract; Z87.891 Personal history of nicotine dependence; Z88.2 Allergy status to sulfonamides; Z87.440 Personal history of urinary (tract) infections; Z79.899 Other long term (current) drug therapy
CPT/HCPCS: 36569; 71010; 76937; 77001; 78315; 80048; 80202; 85025; 85027; 87070; 87075; 87077; 87186; 87205; 87324; 97597

== ENCOUNTER → 2017-06-08 | Outpatient (CLI) | payer MEDICARE ==
[2017-06-08 14:45] LABS: HCT 36.7 % (34.0-46.0); HGB 11.3 gm/dL (11.4-16.0); Hypochromasia Slight; MCH 29.3 pg (25.0-35.0); MCHC 30.8 g/dL (31.0-37.0); MCV 95.3 fL (80.0-100.0); Mean Platelet Volume 8.6; Platelet Count 121 k/uL (150-450); RBC 3.85 m/uL (3.80-5.40); RDW 13.5 % (11.5-15.5); WBC 4.3 k/uL (3.8-10.6)
[2017-06-08 15:08] LABS: ALT 25 U/L (9-52); AST 32 U/L (14-36); Alkaline Phosphatase 153 U/L (38-126); Anion Gap 9 mmol/L; Blood Urea Nitrogen 13 mg/dL (7-17); Carbon Dioxide 32 mmol/L (22-30); Chloride 106 mmol/L (98-107); Cholesterol 203 mg/dL (<200); Glucose 88 mg/dL (74-99); HDL Cholesterol 48 mg/dL (40-60); LDL Cholesterol,Calculated 122 mg/dL (0-99); Potassium 4.2 mmol/L (3.5-5.1); Sodium 147 mmol/L (137-145); Total Bilirubin 0.3 mg/dL (0.2-1.3); Total Protein 7.1 g/dL (6.3-8.2); Triglycerides 164 mg/dL (<150)
[2017-06-08 15:25] LABS: T4, Free (Free Thyroxine) 1.19 ng/dL (0.78-2.19)
[2017-06-08 20:01] LABS: Hepatitis C IgG Antibody Non-Reactive (Non-Reactive)
[2017-06-08 20:37] LABS: Vitamin D 25 Hydroxy 9.5 ng/mL (30.0-100.0)
[2017-06-08 21:36] LABS: Hemoglobin A1C 5.1 % (4.0-6.0)
== END | disposition home or self-care (01) ==
LOC: LABWHC1 13:54
PROVIDERS: ATTEND Family Medicine
DX: Z00.01 Encounter for general adult medical examination with abnormal findings (principal); E78.1 Pure hyperglyceridemia; E03.9 Hypothyroidism, unspecified
CPT/HCPCS: 36415; 80053; 80061; 82306; 83036; 84439; 84443; 85027; 86803

== ENCOUNTER → 2017-09-14 | Outpatient (CLI) | payer MEDICARE ==
[2017-09-14 12:46] LABS: ALT 21 U/L (9-52); AST 21 U/L (14-36); Albumin 4.1 g/dL (3.5-5.0); Alkaline Phosphatase 131 U/L (38-126); Blood Urea Nitrogen 18 mg/dL (7-17); Calcium 9.9 mg/dL (8.4-10.2); Carbon Dioxide 27 mmol/L (22-30); Chloride 108 mmol/L (98-107); Glucose 90 mg/dL (74-99); Total Bilirubin 0.5 mg/dL (0.2-1.3); Total Protein 7.1 g/dL (6.3-8.2)
[2017-09-14 12:51] LABS: Anion Gap 12 mmol/L; Sodium 147 mmol/L (137-145)
== END | disposition home or self-care (01) ==
LOC: LABWHC1 11:58
PROVIDERS: ATTEND Surgery Vascular Surgery
DX: M86.8X8 Other osteomyelitis, other site (principal)
CPT/HCPCS: 36415; 80053

== ENCOUNTER → 2017-09-18 | Outpatient (CLI) | payer MEDICARE ==
--- NOTE | 2017-09-19 03:09 | MR ---
EXAMINATION TYPE: MR foot LT wo/w con DATE OF EXAM: 09/18/2017 COMPARISON: NONE HISTORY: Osteomyelitis, left great toe CONTRAST: Standard multiplanar, multisequence MRI departmental protocol utilizing 15 mL intravenous Gadavist ga dolinium contrast. FINDINGS: On the T1 sagittal images are appears to be loss of bone involving the tuft of the distal p halanx of the big toe. I see no pathologic enhancement. Metatarsals appear intact. There is some defo rmity of the soft tissues at the tip of the big toe. There is soft tissue diffuse swelling of the for efoot. IMPRESSION: Diffuse forefoot soft tissue swelling consistent with cellulitis and edema. There is evidence of loss of bone of the tuft of the distal phalanx of the big toe consistent with ch ronic osteomyelitis.
== END | disposition home or self-care (01) ==
LOC: RADMRIMAIN 12:23
PROVIDERS: ATTEND Surgery Vascular Surgery
DX: M79.89 Other specified soft tissue disorders (principal)
CPT/HCPCS: 73720; A9581

== ENCOUNTER 2018-07-23 10:11 | Emergency (ER) | payer MEDICARE ==
[2018-07-23 10:33] VITALS: RESP 18; TEMP 98.7
--- NOTE | 2018-07-23 11:07 | ED ---
General Adult HPI - General Chief complaint: Fall Stated complaint: Altered Time Seen by Provider: 07/23/18 10:21 Source: patient, EMS Mode of arrival: EMS Limitations: physical limitation - History of Present Illness Initial comments: Dictation was produced using [employer] dictation software. please excuse any grammatical, word or spelling errors. Chief Complaint: 62-year-old female with past medical history of morbid obesity, hypertension, diabetes disease presents after fall History of Present Illness: Patient is 62-year-old female. She was at home when she slid out of her wheelchair. She tried to stand up. Patient is chronically debilitated and lives at an assisted living facility. Patient states this happened earlier today. Patient denies any pain at this time. She was brought here by EMS. Patient is morbidly obese. She states she takes care of herself. Patient has no pain complaints at this time. Patient reports that she normally does not ambulate. The ROS documented in this emergency department record has been reviewed and confirmed by me. Those systems with pertinent positive or negative responses have been documented in the HPI. All other systems are other negative and/or noncontributory. PHYSICAL EXAM: General Impression: Alert and oriented x3, not in acute distress, morbidly obese HEENT: Normocephalic atraumatic, extra-ocular movements intact, pupils equal and reactive to light bilaterally, mucous membranes moist. Cardiovascular: Heart regular rate and rhythm, S1&S2 audible, no murmurs, rubs or gallops Chest: Lungs clear to auscultation bilaterally, no rhonchi, no wheeze, no rales Abdomen: Bowel sounds present, abdomen soft, non-tender, non-distended, no organomegaly Musculoskeletal: Pulses present and equal in all extremities, no peripheral edema Motor: no focal deficits noted Neurological: CN II-XII grossly intact, no focal motor or sensory deficits noted Skin: Dermatitis of the gluteus and perennial area, dried feces Psych: Normal affect and mood ED course: Is 62-year-old female she presents after sliding and falling out of her wheelchair. Patient has no complaints at this time. Physical examination shows dermatitis of the groin, gluteus and perineal area. Likely secondary to poor personal hygiene. Vital signs upon arrival are within acceptable limits. X-rays were obtained showing no acute processes. Patient's pain is controlled. Patient cleaned off. There is concern that patient is unable to effectively care for herself and that she lives alone however she does live in assisted living she reports. Patient case was discussed with Dr. Nick physical is familiar with patient. He does agree that patient is to be placed in a more extensive living arrangement where she gets more assistance. States he can help arrange that an outpatient setting. Patient's skin was cleaned and drank water was applied to the groin area. Patient given some water to go home with. She is told to follow-up with Dr. Mcfarlane as soon as possible. And agreeable to disposition. - Related Data Home Medications Medication Instructions Recorded Confirmed Levothyroxine Sodium [Synthroid] 100 mcg PO DAILY 08/29/13 07/23/18 Lisinopril [Zestril] 40 mg PO BID 08/29/13 07/23/18 Pregabalin [Lyrica] 50 mg PO TID@1000,1400,2200 09/29/16 07/23/18 Gabapentin [Neurontin] 900 mg PO HS@2200 12/16/17 07/23/18 Ibuprofen [Motrin] 800 mg PO TID PRN 12/16/17 07/23/18 Cholecalciferol (Vitamin D3) 2,000 unit PO DAILY 04/12/18 07/23/18 [Vitamin D3] Atorvastatin Calcium [Lipitor] 10 mg PO DAILY 06/07/18 07/23/18 Multivitamin with Iron 1 tab PO DAILY 07/23/18 07/23/18 [Multivitamins with Iron] amLODIPine [Norvasc] 5 mg PO DAILY 07/23/18 07/23/18 Previous Rx's Medication Instructions Recorded Gabapentin [Neurontin] 600 mg PO BID@1000,1400 cap 09/15/16 HYDROcodone/APAP 7.5-325MG [[place] 1 tab PO Q6HR PRN #14 tab 12/23/17 7.5-325] Allergies Allergy/AdvReac Type Severity Reaction Status Date / Time Sulfa (Sulfonamide Allergy Rash/Hives Verified 07/12/18 13:14 Antibiotics) Review of Systems ROS Statement: Those systems with pertinent positive or pertinent negative responses have been documented in the HPI. ROS Other: All systems not noted in ROS Statement are negative. Past Medical History Past Medical History: Hypertension, Osteoarthritis (OA), Skin Disorder, Thyroid Disorder Additional Past Medical History / Comment(s): UTI, neuropathy, anemia, umbilical hernia, WOUND LEFT HEEL, umb hernia, breakdown lt foot goes to [facility], strss incont of urine History of Any Multi-Drug Resistant Organisms: MRSA Date of last positivie culture/infection: 04/04/17 MDRO Source:: Left-Fifth Toe Past Surgical History: Section, Cholecystectomy, Orthopedic Surgery, Tubal Ligation Additional Past Surgical History / Comment(s): D&C x 3, arthroscopic left knee x 2 Past Anesthesia/Blood Transfusion Reactions: Previous Problems w/ Anesthesia Additional Past Anesthesia/Blood Transfusion Reaction / Comment(s): slow to come out of it Past Psychological History: No Psychological Hx Reported Smoking Status: Former smoker Past Alcohol Use History: Rare Past Drug Use History: None Reported - Past Family History Father Family Medical History: Cancer, Coronary Artery Disease (CAD), Myocardial Infarction ([place]), Prostate Disorder Additional Family Medical History / Comment(s): Prostate CA Mother Family Medical History: Cancer, CVA/TIA, Hyperlipidemia Additional Family Medical History / Comment(s): Lung CA-left lobe removed General Exam Limitations: physical limitation Course Vital Signs 07/23/18 10:26 Temperature 98.7 F Pulse Rate 93 Respiratory 18 Rate Blood Pressure 118/67 O2 Sat by Pulse 100 Oximetry Disposition Clinical Impression: Fall Disposition: HOME SELF-CARE Condition: Good Instructions (If sedation given, give patient instructions): Fall Prevention for Older Adults (ED) Is patient prescribed a controlled substance at d/c from ED?: No Referrals: Adonis Mcfarlane DO [Primary Care Provider] - 1-2 days Time of Disposition: 12:13
--- NOTE | 2018-07-23 11:41 | XR ---
EXAMINATION TYPE: XR pelvis AP view, XR femur bilateral DATE OF EXAM: 07/23/2018 CLINICAL HISTORY: Pelvic and bilateral femur pain. Possible injury. Altered mental status. TECHNIQUE: A single AP view of the pelvis is obtained. Two views of the bilateral femurs are obtained . COMPARISON: None. FINDINGS: Exam noted suboptimal due to patient's large body habitus. Exam suboptimal due to rotation. There is no acute fracture/dislocation evident in the pelvis. The s acroiliac joints are felt to be within normal limits. There is moderate axial joint space loss in primo th hips. Pubic symphysis is intact. Overlying soft tissue is unremarkable. The overlying soft tissue appears unremarkable. Two views of bilateral femurs show no acute fracture or dislocation. Advanced degenerative changes in both knees, right greater than left with spurring and narrowing most prominent medial tibiofemoral c ompartment bilaterally is noted. There is mild diffuse subcutaneous edema. Soft tissue prominence is likely product of underlying morbid obesity. IMPRESSION: There is no acute fracture or dislocation in the pelvis or either femur.
[2018-07-23 12:58] VITALS: BP 101/84; PULSE 86
== END 2018-07-23 13:41 | disposition home or self-care (01) ==
LOC: EC 10:11
DX: Z04.3 Encounter for examination and observation following other accident (principal); I10 Essential (primary) hypertension; G62.9 Polyneuropathy, unspecified; M19.90 Unspecified osteoarthritis, unspecified site; L30.9 Dermatitis, unspecified; E07.9 Disorder of thyroid, unspecified; E66.01 Morbid (severe) obesity due to excess calories; Z68.43 Body mass index [BMI] 50.0-59.9, adult; Z87.891 Personal history of nicotine dependence; Z86.14 Personal history of Methicillin resistant Staphylococcus aureus infection; Z79.890 Hormone replacement therapy; Z79.899 Other long term (current) drug therapy; Z88.2 Allergy status to sulfonamides; W05.0XXA Fall from non-moving wheelchair, initial encounter; Y92.009 Unspecified place in unspecified non-institutional (private) residence as the place of occurrence of the external cause
CPT/HCPCS: 72170; 99284

== ENCOUNTER 2018-07-23 14:56 | Inpatient (IN) | payer MEDICARE ==
--- NOTE | 2018-07-23 15:10 | ED ---
General Adult HPI - General Chief complaint: Weakness Stated complaint: Weakness Time Seen by Provider: 07/23/18 15:00 Source: patient, EMS Mode of arrival: EMS Limitations: no limitations - History of Present Illness Initial comments: Dictation was produced using [employer] dictation software. please excuse any grammatical, word or spelling errors. Chief Complaint: 62-year-old female that by EMS from poor living conditions. History of Present Illness: Is a 62-year-old female. She was seen by me earlier today after sliding out of her wheelchair. She was brought back to the emergency department by EMS for poor living conditions. Patient lives at home by herself reports that she cannot take care of himself due to severe weakness. EMS reports that her place was filthy and soiled with stool everywhere. The ROS documented in this emergency department record has been reviewed and confirmed by me. Those systems with pertinent positive or negative responses have been documented in the HPI. All other systems are other negative and/or noncontributory. PHYSICAL EXAM: General Impression: Alert and oriented x3, not in acute distress HEENT: Normocephalic atraumatic, extra-ocular movements intact, pupils equal and reactive to light bilaterally, mucous membranes moist. Cardiovascular: Heart regular rate and rhythm, S1&S2 audible, no murmurs, rubs or gallops Chest: Lungs clear to auscultation bilaterally, no rhonchi, no wheeze, no rales Abdomen: Bowel sounds present, abdomen soft, non-tender, non-distended, no organomegaly Musculoskeletal: Pulses present and equal in all extremities, no peripheral edema Motor: no focal deficits noted Neurological: CN II-XII grossly intact, no focal motor or sensory deficits noted Skin: Intact with no visualized rashes Psych: Normal affect and mood ED course: 62-year-old female presents to the emergency department for poor living conditions. Vital signs upon arrival are within acceptable limits. Patient has no complaints at this time. She had no complaints however return evaluation was obtained. Patient has a mild leukocytosis of 14.3 and secondary to stress. Potassium 3.0. Patient has evidence of mild acute kidney injury with a creatinine 1.6 and a BUN of 29. Patient has a creatinine kinase of 12,000. This likely reflects nonexertional rhabdomyolysis. Patient given intravenous fluids to hydrate the area kidneys. patient admitted with consultation to nephrology. Patient's rhabdomyolysis is likely precipitated from inactivity. Patient's medications were reviewed. She is on a statin medication. We will withhold statin medications at the moment likely that this may help precipitate rhabdomyolysis. EKG interpretation: Ventricular rate 95, normal sinus rhythm,. Interval 140, Q 76, QTC 457. No IL prolongation, no QTC prolongation, no ST or T-wave changes noted. Overall, this EKG is unremarkable - Related Data Home Medications Medication Instructions Recorded Confirmed Levothyroxine Sodium [Synthroid] 100 mcg PO DAILY 08/29/13 07/23/18 Lisinopril [Zestril] 40 mg PO BID 08/29/13 07/23/18 Pregabalin [Lyrica] 50 mg PO TID@1000,1400,2200 09/29/16 07/23/18 Gabapentin [Neurontin] 900 mg PO HS@2200 12/16/17 07/23/18 Ibuprofen [Motrin] 800 mg PO TID PRN 12/16/17 07/23/18 Cholecalciferol (Vitamin D3) 2,000 unit PO DAILY 04/12/18 07/23/18 [Vitamin D3] Atorvastatin Calcium [Lipitor] 10 mg PO DAILY 06/07/18 07/23/18 Multivitamin with Iron 1 tab PO DAILY 07/23/18 07/23/18 [Multivitamins with Iron] amLODIPine [Norvasc] 5 mg PO DAILY 07/23/18 07/23/18 Previous Rx's Medication Instructions Recorded Gabapentin [Neurontin] 600 mg PO BID@1000,1400 cap 09/15/16 HYDROcodone/APAP 7.5-325MG [[place] 1 tab PO Q6HR PRN #14 tab 12/23/17 7.5-325] Allergies Allergy/AdvReac Type Severity Reaction Status Date / Time Sulfa (Sulfonamide Allergy Rash/Hives Verified 07/23/18 15:00 Antibiotics) Review of Systems ROS Statement: Those systems with pertinent positive or pertinent negative responses have been documented in the HPI. ROS Other: All systems not noted in ROS Statement are negative. Past Medical History Past Medical History: Hypertension, Osteoarthritis (OA), Skin Disorder, Thyroid Disorder Additional Past Medical History / Comment(s): UTI, neuropathy, anemia, umbilical hernia, WOUND LEFT HEEL, umb hernia, breakdown lt foot goes to [facility], strss [place] of urine History of Any Multi-Drug Resistant Organisms: MRSA Date of last positivie culture/infection: 04/04/17 MDRO Source:: Left-Fifth Toe Past Surgical History: Section, Cholecystectomy, Orthopedic Surgery, Tubal Ligation Additional Past Surgical History / Comment(s): D&C x 3, arthroscopic left knee x 2 Past Anesthesia/Blood Transfusion Reactions: Previous Problems w/ Anesthesia Additional Past Anesthesia/Blood Transfusion Reaction / Comment(s): slow to come out of it Past Psychological History: No Psychological Hx Reported Smoking Status: Former smoker Past Alcohol Use History: Rare Past Drug Use History: None Reported - Past Family History Father Family Medical History: Cancer, Coronary Artery Disease (CAD), Myocardial Infarction ([place]), Prostate Disorder Additional Family Medical History / Comment(s): Prostate CA Mother Family Medical History: Cancer, CVA/TIA, Hyperlipidemia Additional Family Medical History / Comment(s): Lung CA-left lobe removed General Exam Limitations: no limitations Course Vital Signs 07/23/18 14:57 Temperature 97.9 F Pulse Rate 86 Respiratory 18 Rate Blood Pressure 122/77 O2 Sat by Pulse 98 Oximetry Medical Decision Making - Lab Data Result diagrams: 07/23/18 15:20 07/23/18 15:20 Lab Results 07/23/18 07/23/18 Range/Units 15:20 15:20 WBC 14.3 H (3.8-10.6) k/uL RBC 4.26 (3.80-5.40) m/uL Hgb 12.4 (11.4-16.0) gm/dL Hct 37.6 (34.0-46.0) % MCV 88.3 (80.0-100.0) fL MCH 29.0 (25.0-35.0) pg MCHC 32.8 (31.0-37.0) g/dL RDW 13.9 (11.5-15.5) % Plt Count 257 (150-450) k/uL Neutrophils % 86 % Lymphocytes % 6 % Monocytes % 7 % Eosinophils % 1 % Basophils % 0 % Neutrophils # 12.2 H (1.3-7.7) k/uL Lymphocytes # 0.8 L (1.0-4.8) k/uL Monocytes # 1.0 (0-1.0) k/uL Eosinophils # 0.1 (0-0.7) k/uL Basophils # 0.0 (0-0.2) k/uL Sodium 142 (137-145) mmol/L Potassium 3.0 L (3.5-5.1) mmol/L Chloride 107 (98-107) mmol/L Carbon Dioxide 25 (22-30) mmol/L Anion Gap 10 mmol/L BUN 29 H (7-17) mg/dL Creatinine 1.65 H (0.52-1.04) mg/dL Est GFR (CKD-EPI)AfAm 38 (>60 ml/min/1.73 sqM) Est GFR (CKD-EPI)NonAf 33 (>60 ml/min/1.73 sqM) Glucose 108 H (74-99) mg/dL Calcium 9.7 (8.4-10.2) mg/dL Magnesium 1.8 (1.6-2.3) mg/dL Creatine Kinase 33138 H* (30-135) U/L Disposition Clinical Impression: Rhabdomyolysis Disposition: ADMITTED IP TO THIS [facility] Condition: Fair Referrals: Adonis Mcfarlane DO [Primary Care Provider] - 1-2 days Decision Time: 16:31
[2018-07-23 15:48] LABS: Calcium 9.7 mg/dL (8.4-10.2); Magnesium 1.8 mg/dL (1.6-2.3)
[2018-07-23 16:00] LABS: Basophils % (A) 0 %; Eosinophils # (A) 0.1 k/uL (0-0.7); Eosinophils % (A) 1 %; HCT 37.6 % (34.0-46.0); HGB 12.4 gm/dL (11.4-16.0); Lymphocytes # (A) 0.8 k/uL (1.0-4.8); Lymphocytes % (A) 6 %; MCHC 32.8 g/dL (31.0-37.0); MCV 88.3 fL (80.0-100.0); Monocytes % (A) 7 %; Neutrophils # (A) 12.2 k/uL (1.3-7.7); Neutrophils % (A) 86 %; Platelet Count 257 k/uL (150-450); RBC 4.26 m/uL (3.80-5.40); RDW 13.9 % (11.5-15.5); WBC 14.3 k/uL (3.8-10.6)
[2018-07-23] MEDS ORDERED: POTASSIUM CHLORIDE ER 20 MEQ TAB.ER PO STA (16:28)
[2018-07-23] MEDS ORDERED: ONDANSETRON 4 MG/2 ML VIAL IVP PRN (16:31)
[2018-07-23] MEDS ORDERED: ACETAMINOPHEN TAB 325 MG TAB PO PRN (16:31)
[2018-07-23] MEDS ORDERED: NALOXONE 0.4 MG/ML 1 ML VIAL IV PRN (16:31)
[2018-07-23] MEDS: SODIUM CHLORIDE 0.9% 1,000 ML IV SCH (16:42)
[2018-07-23] MEDS: PREGABALIN 50 MG CAP PO SCH (21:48)
[2018-07-23] MEDS: GABAPENTIN 300 MG CAP PO SCH (21:49)
[2018-07-23 22:14] LABS: Appearance,Urine Cloudy (Clear); Bacteria,Urine Moderate /hpf; Bilirubin,Urine Negative (Negative); Blood,Urine Large (Negative); Color,Urine Yellow; Glucose,Urine (UA) Negative (Negative); Hyaline Casts,Urine 10 /lpf (0-2); Ketones,Urine 1+ (Negative); Leukocyte Esterase,Urine Negative (Negative); Mucus,Urine Occasional /hpf; Nitrite,Urine Negative (Negative); Protein,Urine 2+ (Negative); RBC,Urine 2 /hpf (0-5); Squamous Epithelial Cell,Urine 2 /hpf (0-4); WBC,Urine 9 /hpf (0-5)
[2018-07-24] MEDS ORDERED: VANCOMYCIN IV PER PHARMACY 1 EACH MISC MISCELLANE PRN (00:26)
[2018-07-24] MEDS ORDERED: TEMAZEPAM 15 MG CAP PO PRN (00:27)
[2018-07-24] MEDS ORDERED: ALPRAZolam 0.25 MG TAB PO PRN (00:27)
[2018-07-24] MEDS ORDERED: HYDROmorphone 0.5 MG/0.5 ML SYRINGE IVP PRN (00:27)
[2018-07-24] MEDS: SODIUM CHLORIDE 0.9% 1,000 ML IV SCH ×5 (01:55→21:04)
[2018-07-24] MEDS: PIPERACILLIN-TAZOBACTAM 3.375 GM in SODIUM CHLORIDE 0.9% 100 ML IVPB SCH ×3 (01:56→20:51)
[2018-07-24] MEDS: VANCOMYCIN 2,000 MG in SODIUM CHLORIDE 0.9% 500 ML 500 ML IVPB SCH (01:56)
[2018-07-24] MEDS: LEVOTHYROXINE 100 MCG TAB PO SCH (05:59)
--- NOTE | 2018-07-24 07:39 | HP ---
HISTORY AND PHYSICAL DATE OF SERVICE: 07/23/2018 CHIEF COMPLAINT: Weakness. HISTORY OF PRESENT ILLNESS: This 62-year-old woman with a past medical history of multiple medical problems including hypertension, history of DJD, history of hypothyroidism, UTI, neuropathy, history of left heel wound, history of MRSA, history of section, cholecystectomy being followed by Dr. Mcfarlane in the outpatient setting apparently living by herself and the patient presented to the ER with complaints of weakness. Patient had some falls also. EMS apparently brought the patient back home but apparently the house was in a poor living condition. Patient was brought back and admitted to the hospital for further evaluation and treatment. Patient had extensive ulcer on the left heel, almost grade 3 with foul-smelling and patient also had multiple areas of skin lesions and decubitus ulcers at this time. The patient also had features of acute [place] [address] and patient admitted to the hospital for further evaluation and treatment. Influenza negative. There is no history of fever, rigors. No history of headache, loss of consciousness, seizures at this time. PAST MEDICAL HISTORY: Hypertension, DJD, history of skin disorders, UTI, neuropathy, history of umbilical hernia. Heel wound. MEDICATIONS PRIOR TO ADMISSION: 1. Norvasc 5 mg. 2. Lyrica 50 mg t.i.d. 3. Multivitamins one p.o. daily. 4. Zestril 40 mg p.o. daily. 5. Synthroid 100 mcg daily. 6. Motrin 800 mg p.o. t.i.d. p.r.n. 7. [place] 7.5 mg q.6. 8. Neurontin 600 mg b.i.d. and 900 mg q.h.s. 9. Vitamin D3 2000 daily. 10.Lipitor 10 mg. ALLERGIES: SULFA. FAMILY HISTORY: Family history of coronary artery disease, myocardial infarction, prostate disorder, prostate cancer in the family. SOCIAL HISTORY: Previous history of smoking, occasional alcohol intake. REVIEW OF SYSTEMS: ENT: No diminished hearing. No diminished vision. CARDIOVASCULAR: No angina. Respiration: No cough. GI no nausea or vomiting. no nausea or vomiting. Central nervous system: As mentioned earlier. Allergy/Immunology: No asthma or hayfever. Musculoskeletal: As mentioned earlier. Hematology/Oncology: As mentioned earlier. Endocrine: Hypothyroidism. CONSTITUTIONAL: As mentioned earlier. Dermatology: As mentioned earlier. Rheumatology: Negative. Psychiatric: As mentioned earlier. PHYSICAL EXAMINATION: Alert and oriented x3. Pulse is 94, blood pressure 99/61, respiration 18, temperature 97.2, pulse ox 100 percent on room air. HEENT: Conjunctivae normal. Oral mucosa dry. Neck is no jugular venous distention. No carotid bruit. No lymph node enlargement. CARDIOVASCULAR SYSTEM: S1, S2 muffled. Respiration: Breath sounds diminished in the bases. No rhonchi. No crackles. ABDOMEN: Soft, nontender, obese. No mass palpable. Legs: Bilateral leg edema. Chronic skin changes and significant ulceration of the left heel grade 3-4. Nervous system: Mild diffuse weakness. Lymphatics: No lymph nodes palpable in the neck, axillae or groin. SKIN: As mentioned earlier. Joints: No active deforming arthropathy. LAB STUDIES: WBC 14.3, hemoglobin 12.4, sodium 140, potassium 3. Creatinine is 1.6. Creatinine kinase noted. ASSESSMENT: 1. Left heel ulcer with possible osteomyelitis and sepsis. 2. Change in mental status, acute metabolic encephalopathy. 3. Increased WBC. 4. Acute rhabdomyolysis. 5. Acute renal failure. 6. Hypokalemia. 7. Morbid obesity. 8. Hypertension. 9. Degenerative joint disease. 10.History of hypothyroidism. 11.Urinary tract infection. 12.History of section. 13.History of MRSA. RECOMMENDATIONS AND DISCUSSION: In this 62-year-old woman who presented with multiple medical issues, at this time, we will monitor the patient closely. Continue the current medications, management and symptomatic treatment. We will initiate IV fluids. The patient dehydrated. At this time, we will increase the IV to 200 mL per hour and we will continue to monitor. Otherwise CK will be repeated on a daily basis. Nephrology and Infectious Disease are consulted. The home medications will be continued and prognosis guarded because of multiple complex medical issues. DVT prophylaxis. See orders for details. Further recommendations to follow. Broad-spectrum IV antibiotics also will be initiated. Copy of dictation being forwarded to Dr. Mcfarlane who is the primary care physician. See orders for details. MMODL / IJN: [id number] /
[2018-07-24] MEDS ORDERED: amLODIPine 5 MG TAB PO SCH (09:00)
[2018-07-24] MEDS: CHOLECALCIFEROL 1,000 UNIT TAB PO SCH (09:40)
[2018-07-24] MEDS: PANTOPRAZOLE 40 MG/10 ML VIAL IV SCH (09:41)
[2018-07-24] MEDS: GABAPENTIN 300 MG CAP PO SCH ×3 (09:41→21:03)
[2018-07-24] MEDS: HEPARIN SODIUM,PORCINE 5,000 UNIT/ML 1 ML VIAL SQ SCH ×2 (09:41→21:04)
[2018-07-24] MEDS: PREGABALIN 50 MG CAP PO SCH ×3 (09:41→21:04)
[2018-07-24] MEDS: MULTIVITAMINS, THERA 1 EACH TAB PO SCH (09:41)
[2018-07-24] MEDS ORDERED: SODIUM CHLORIDE 0.9% 500 ML 500 ML IV ONE ×3 (11:32→11:50)
[2018-07-24 12:09] LABS: Basophils % (A) 0 %; Eosinophils % (A) 0 %; HCT 28.1 % (34.0-46.0); Hypochromasia Slight; Lymphocytes # (A) 0.6 k/uL (1.0-4.8); Lymphocytes % (A) 5 %; MCHC 32.1 g/dL (31.0-37.0); MCV 90.4 fL (80.0-100.0); Mean Platelet Volume 8.9; Monocytes # (A) 0.4 k/uL (0-1.0); Monocytes % (A) 4 %; Neutrophils # (A) 10.4 k/uL (1.3-7.7); Neutrophils % (A) 90 %; Platelet Count 252 k/uL (150-450); RBC 3.11 m/uL (3.80-5.40); RDW 13.9 % (11.5-15.5); WBC 11.5 k/uL (3.8-10.6)
[2018-07-24 12:14] LABS: Calcium 8.5 mg/dL (8.4-10.2)
--- NOTE | 2018-07-24 12:48 | CONS ---
DATE OF CONSULTATION: 07/24/2018 This is a 67-year-old female. The patient has history of chronic renal failure. Patient has some discomfort in the right arm for the past few months. The patient was admitted to [facility]. Ultrasound showed there was a clot in the jugular vein and proximal subclavian vein. The patient is under care of Dr. Gallardo at [facility] and the patient is known to him for a long time and he has done multiple fistula on his right and left arm. The patient has been admitted and advised by Dr. Gallardo to continue with anticoagulation and with dialysis. 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 The patient also had hysterectomy done and pacemaker. PHYSICAL EXAMINATION: Patient was seen in her room. She is in sitting position. Her neck is supple. CHEST: Clear. The patient has a multiple graft in the right arm and left arm. The left arm graft has been occluded, which was placed in [facility] in [place]. The patient had a right upper arm graft and a loop graft in the forearm. Thrill is present and no sign of infection noted. Discussed with the Nephrology and patient will be dialyzed today and patient will be on heparin and followed by anticoagulation and follow with Dr. Gallardo as an outpatient. Thank you very much for the consultation. MMODL / IJN: [id number] / JRERY
--- NOTE | 2018-07-24 12:54 | CONS ---
DATE OF CONSULTATION: 07/24/2018 This is a 62-year-old female, well known to me from my wound clinic. She comes on regular basis for follow up in the wound clinic for local wound care of the left foot. The patient has history of obesity, hypertension, no history of diabetes. The patient was feeling weak and tired and she has been admitted and found to have a [place] [address]. Patient has no fever or chills. PAST MEDICAL HISTORY: History of hysterectomy, history of multiple wound debridement done in the wound clinic. PHYSICAL EXAMINATION: Patient was seen in her room. CHEST: Clear. First and second sounds normal. ABDOMEN: Soft. Vascular exam: Femorals are 1+. The patient has super obesity. Patient has some chronic wound on the left foot big toe and the heel area. We were treating this with local wound care using Silversorb and the patient is on antibiotic. At this point, we will continue with local wound care. No surgical intervention needed. If the patient discharged from the hospital, we will follow in the wound clinic. Thank you for this consultation. MMVASILIYL / EMMETTN: [id number] / JERRY
--- NOTE | 2018-07-24 13:17 | XR ---
EXAMINATION TYPE: XR chest 1V DATE OF EXAM: 07/24/2018 HISTORY: decreased oxygen . REFERENCE: Previous study dated 09/11/2016. FINDINGS: The lungs remain clear. Heart size is upper limits of normal. Pleural spaces are clear. IMPRESSION: NO ACTIVE INTRATHORACIC DISEASE.
[2018-07-24] MEDS: SILVER GEL 44.4 APPLIC/44.4 ML TUBE TOPICAL SCH (13:20)
--- NOTE | 2018-07-24 13:24 | PCN ---
PROCEDURE NOTE PREOP DIAGNOSIS: Necrotic wound to the left heel. Measurement is 4 x 4 cm. PROCEDURE PERFORMED: Selective debridement. DESCRIPTION OF PROCEDURE: This patient had a history of neuropathy. Wound was cleaned with saline and then we used alcohol swab to clean the left heel. Using sharp scissors we excise this necrotic skin down to subcutaneous tissue. Some bleeding was noted which was controlled by pressure. We took the deep culture and we will use Silvasorb with dressing on the left heel, which will be changed daily. MMODL / IJN: [id number] /
--- NOTE | 2018-07-24 14:28 | P.NPCON ---
History of Present Illness - Reason for Consult Consult date: 07/24/18 acute renal failure - Chief Complaint Weakness - History of Present Illness Admitted to the hospital on 07/03/2018 with weakness. She has left heel ulcer. History of hypertension takes amlodipine at home. She also takes Motrin and Knippa for aches and pains. No nausea vomiting diarrhea. She takes statin at home. When presented to the hospital creatinine was 1.6 with a baseline of 0.7 MG per DL. She was given IV fluids. Currently transferred to ICU with hypotension. Currently asymptomatic. He also got Norvasc while in the hospital. No recent contrast studies. Urine analysis consistent with large blood and 2 rbc's and hyaline cast. Medications also includes lisinopril. Review of Systems Constitutional: Reports as per HPI Past Medical History Past Medical History: Hypertension, Osteoarthritis (OA), Skin Disorder, Thyroid Disorder Additional Past Medical History / Comment(s): UTI, neuropathy, anemia, umbilical hernia, WOUND LEFT HEEL, umb hernia, breakdown lt foot goes to [facility], strss incont of urine History of Any Multi-Drug Resistant Organisms: MRSA Date of last positivie culture/infection: 04/04/17 MDRO Source:: Left-Fifth Toe Past Surgical History: Section, Cholecystectomy, Orthopedic Surgery, Tubal Ligation Additional Past Surgical History / Comment(s): D&C x 3, arthroscopic left knee x 2 Past Anesthesia/Blood Transfusion Reactions: Previous Problems w/ Anesthesia Additional Past Anesthesia/Blood Transfusion Reaction / Comment(s): slow to come out of it Past Psychological History: No Psychological Hx Reported Additional Psychological History / Comment(s): pt lives alone in a single level home that has 3 steps in which to enter. no pets.uses a cane when up. receives [facility] care nurse. Smoking Status: Former smoker Past Alcohol Use History: Rare Additional Past Alcohol Use History / Comment(s): started smoking 1970, quit 1990, 1 ppd. Patient denies any medical marijuana, marijuana, street drug or alcohol use. She worked in the past as a nurse at [employer]. Past Drug Use History: None Reported - Past Family History Father Family Medical History: Cancer, Coronary Artery Disease (CAD), Myocardial Infarction ([place]), Prostate Disorder Additional Family Medical History / Comment(s): Prostate CA Mother Family Medical History: Cancer, CVA/TIA, Hyperlipidemia Additional Family Medical History / Comment(s): Lung CA-left lobe removed Medications and Allergies Home Medications Medication Instructions Recorded Confirmed Type Levothyroxine Sodium [Synthroid] 100 mcg PO DAILY 08/29/13 07/23/18 History Lisinopril [Zestril] 40 mg PO BID 08/29/13 07/23/18 History Gabapentin [Neurontin] 600 mg PO BID@1000,1400 cap 09/15/16 07/23/18 Rx Pregabalin [Lyrica] 50 mg PO TID@1000,1400,2200 09/29/16 07/23/18 History Gabapentin [Neurontin] 900 mg PO HS@2200 12/16/17 07/23/18 History Ibuprofen [Motrin] 800 mg PO TID PRN 12/16/17 07/23/18 History HYDROcodone/APAP 7.5-325MG [Kn[place] 1 tab PO Q6HR PRN #14 tab 12/23/17 07/23/18 Rx 7.5-325] Cholecalciferol (Vitamin D3) 2,000 unit PO DAILY 04/12/18 07/23/18 History [Vitamin D3] Atorvastatin Calcium [Lipitor] 10 mg PO DAILY 06/07/18 07/23/18 History Multivitamin with Iron 1 tab PO DAILY 07/23/18 07/23/18 History [Multivitamins with Iron] amLODIPine [Norvasc] 5 mg PO DAILY 07/23/18 07/23/18 History Allergies Allergy/AdvReac Type Severity Reaction Status Date / Time Sulfa (Sulfonamide Allergy Rash/Hives Verified 07/23/18 16:39 Antibiotics) Physical Exam Vitals: Vital Signs Temp Pulse Pulse Resp BP BP Pulse Ox 07/24/18 12:45 87/52 07/24/18 12:00 77/48 07/24/18 11:45 79/47 07/24/18 11:30 79/47 07/24/18 10:30 81/52 07/24/18 09:57 82/52 07/24/18 09:54 84/47 07/24/18 07:00 98.9 F 80 18 86/53 95 07/24/18 02:35 20 93 L 07/24/18 02:30 20 119/72 88 L 07/24/18 01:12 99.3 F 85 16 97/59 90 L 03/29/19 20:04 97.3 F L 94 19 99/61 100 07/23/18 17:35 97.9 F 92 132/76 96 07/23/18 17:18 98.9 F 79 18 134/56 98 07/23/18 14:57 97.9 F 86 18 122/77 98 Intake and Output 07/23/18 07/24/18 07/24/18 22:59 06:59 14:59 Intake Total 600 2600 240 Output Total 900 500 Balance -300 2100 240 Intake: Intake, IV Titration 600 2600 Amount Piperacillin-Tazobactam 3 100 .375 gm In Sodium Chloride 0.9% 100 ml @ 25 mls/hr IVPB Q8H VENKAT Rx#: [id number] Sodium Chloride 0.9% 1, 600 2000 000 ml @ 200 mls/hr IV . Q5H VENKAT Rx#:[id number] Vancomycin 2,000 mg In 500 Sodium Chloride 0.9% 500 ml 500 ml @ 167 mls/hr IVPB Q24H VENKAT Rx#: [id number] Oral 240 Output: Urine 900 500 Uretheral (Cobos) 500 Other: Voiding Method Indwelling Catheter Indwelling Catheter Indwelling Catheter Weight 168.6 kg No Acute distress Lying comfortable S1-S2 heard Lungs clear Edema with left heel ulcer Results - Lab Results Most recent lab results Calcium 8.5 mg/dL (8.4-10.2) 07/24/18 07:13 Magnesium 1.8 mg/dL (1.6-2.3) 07/23/18 15:20 07/24/18 07:13 07/24/18 07:13 Assessment and Plan Assessment: #1 acute kidney injury secondary to hemodynamics and rhabdomyolysis. Baseline creatinine 0.7 MG per DL. #2 sepsis with left heel ulcer, with suspicion of osteomyelitis #3 hypotension #4 hyperchloremic metabolic acidosis #5 proteinuria on UA Plan: #1 agree with stopping lisinopril, Motrin and statin. Creatinine improving with IV fluids. #2 admitted to bring for hemodynamic support. #3 continue with fluids for now. CPK improving. #4 repeat labs in the morning.
[2018-07-24 14:29] LABS: Glucose,Whole Blood 66 mg/dL (75-99)
[2018-07-24] MEDS ORDERED: SODIUM CHLORIDE 0.9% 2,000 ML IV ONE (14:57)
[2018-07-24 15:03] LABS: Glucose,Whole Blood 71 mg/dL (75-99)
--- NOTE | 2018-07-24 15:19 | P.CNPUL ---
History of Present Illness Consult date: 07/24/18 Requesting physician: Wagner Howe Reason for consult: other (Critical care management) Chief complaint: Profound weakness. History of present illness: This is a very pleasant 62-year-old female patient who follows with Dr. Mcfarlane as her primary care physician. She has a history of morbid obesity with a BMI of 56, primary osteoarthritis of multiple joints, hypertension, hypothyroidism, chronic urinary stress incontinence, osteomyelitis of the left big toe followed by amputation, multiple open wounds being followed in the wound Center. She also has excoriated sacral area. She states she does ambulate with a walker. Her legs show changes of chronic venous stasis. She states she had been having flulike symptoms past 10 days with nausea vomiting and diarrhea. She's been profoundly weak. She has not walked since 07/21/2018 and was unable to get up to answer the door yesterday morning and her neighbor called EMS. They transported here to the emergency room around 11 AM and examined for her having slid out of her wheelchair. X-rays revealed no acute fractures. Her skin was cleaned she was hydrated with water and discharge back to home by EMS. Once back in her apartment she was unable to even get up off the stretcher so they returned her to the emergency room approximately 3 PM. She was then admitted for further evaluation. Her living conditions are quite poor and there was concern about her being there alone. EMS reported the place was filthy and soiled with stool everywhere. She was initially admitted to the floor and later transferred here to the intensive care unit today due to hypotension. She has also been hypotensive with a mean arterial pressure of 57. She was also hypoglycemic with a blood glucose of 66. Her initial creatinine kinase was 12,000 improved to 7683 after 1-1/2 L of fluid resuscitation. She is seen today in consultation in the intensive care unit. She is currently awake and alert and oriented. O2 saturations in the 90s on 2 L/m per nasal cannula. Current blood pressure 114/58. She's afebrile. She is still quite thirsty and dry. She has been initiated on vancomycin and Zosyn. 0.9 normal saline at 200 ML's per hour. White count 11.5. Hemoglobin 9.0. Creatinine 0.97. Influenza screen negative. Urinalysis with moderate bacteria. Culture pending. Review of Systems REVIEW OF SYSTEMS: CONSTITUTIONAL: Profound weakness. Denies any recent significant weight loss or weight gain. EYES: Denies change in vision. EARS, NOSE, MOUTH, THROAT: Denies headaches, denies sore throat. CARDIOVASCULAR: Denies chest pain, palpitations or syncopal episodes. RESPIRATORY: Denies shortness of breath, cough, congestion or hemoptysis. GASTROINTESTINAL: Denies change in appetite, denies abdominal pain GENITOURINARY: Denies hematuria, denies infections. MUSKULOSKELETAL: Pain in the left heel status post debridement INTEGUMENTARY: Supple open wounds mostly in the bilateral heels and sacrum. NEUROLOGICAL: Denies recent memory loss, no recent seizure activity. PSYCHIATRIC: Denies anxiety, denies depression. HEMATOLOGIC/LYMPHATIC: Denies anemia, denies enlarged lymph nodes. Past Medical History Past Medical History: Hypertension, Osteoarthritis (OA), Skin Disorder, Thyroid Disorder Additional Past Medical History / Comment(s): UTI, neuropathy, anemia, umbilical hernia, WOUND LEFT HEEL, umb hernia, breakdown lt foot goes to [facility], strss incont of urine History of Any Multi-Drug Resistant Organisms: MRSA Date of last positivie culture/infection: 04/04/17 MDRO Source:: Left-Fifth Toe Past Surgical History: Section, Cholecystectomy, Orthopedic Surgery, Tubal Ligation Additional Past Surgical History / Comment(s): D&C x 3, arthroscopic left knee x 2 Past Anesthesia/Blood Transfusion Reactions: Previous Problems w/ Anesthesia Additional Past Anesthesia/Blood Transfusion Reaction / Comment(s): slow to come out of it Past Psychological History: No Psychological Hx Reported Additional Psychological History / Comment(s): pt lives alone in a single level home that has 3 steps in which to enter. no pets.uses a cane when up. receives [facility] care nurse. Smoking Status: Former smoker Past Alcohol Use History: Rare Additional Past Alcohol Use History / Comment(s): started smoking 1970, quit 1990, 1 ppd. Patient denies any medical marijuana, marijuana, street drug or alcohol use. She worked in the past as a nurse at [employer]. Past Drug Use History: None Reported - Past Family History Father Family Medical History: Cancer, Coronary Artery Disease (CAD), Myocardial Infarction ([place]), Prostate Disorder Additional Family Medical History / Comment(s): Prostate CA Mother Family Medical History: Cancer, CVA/TIA, Hyperlipidemia Additional Family Medical History / Comment(s): Lung CA-left lobe removed Medications and Allergies Home Medications Medication Instructions Recorded Confirmed Type Levothyroxine Sodium [Synthroid] 100 mcg PO DAILY 08/29/13 07/23/18 History Lisinopril [Zestril] 40 mg PO BID 08/29/13 07/23/18 History Gabapentin [Neurontin] 600 mg PO BID@1000,1400 cap 09/15/16 07/23/18 Rx Pregabalin [Lyrica] 50 mg PO TID@1000,1400,2200 09/29/16 07/23/18 History Gabapentin [Neurontin] 900 mg PO HS@2200 12/16/17 07/23/18 History Ibuprofen [Motrin] 800 mg PO TID PRN 12/16/17 07/23/18 History HYDROcodone/APAP 7.5-325MG [[place] 1 tab PO Q6HR PRN #14 tab 12/23/17 07/23/18 Rx 7.5-325] Cholecalciferol (Vitamin D3) 2,000 unit PO DAILY 04/12/18 07/23/18 History [Vitamin D3] Atorvastatin Calcium [Lipitor] 10 mg PO DAILY 06/07/18 07/23/18 History Multivitamin with Iron 1 tab PO DAILY 07/23/18 07/23/18 History [Multivitamins with Iron] amLODIPine [Norvasc] 5 mg PO DAILY 07/23/18 07/23/18 History Allergies Allergy/AdvReac Type Severity Reaction Status Date / Time Sulfa (Sulfonamide Allergy Rash/Hives Verified 07/23/18 16:39 Antibiotics) Physical Exam Vitals: Vital Signs Temp Pulse Pulse Resp BP BP Pulse Ox 07/24/18 12:45 87/52 07/24/18 12:00 77/48 07/24/18 11:45 79/47 07/24/18 11:30 79/47 07/24/18 10:30 81/52 07/24/18 09:57 82/52 07/24/18 09:54 84/47 07/24/18 07:00 98.9 F 80 18 86/53 95 07/24/18 02:35 20 93 L 07/24/18 02:30 20 119/72 88 L 07/24/18 01:12 99.3 F 85 16 97/59 90 L 07/23/18 20:04 97.3 F L 94 19 99/61 100 07/23/18 17:35 97.9 F 92 132/76 96 07/23/18 17:18 98.9 F 79 18 134/56 98 07/23/18 14:57 97.9 F 86 18 122/77 98 Intake and Output 07/23/18 07/24/18 07/24/18 22:59 06:59 14:59 Intake Total 600 2600 240 Output Total 900 500 Balance -300 2100 240 Intake: Intake, IV Titration 600 2600 Amount Piperacillin-Tazobactam 3 100 .375 gm In Sodium Chloride 0.9% 100 ml @ 25 mls/hr IVPB Q8H VENKAT Rx#: [id number] Sodium Chloride 0.9% 1, 600 2000 000 ml @ 200 mls/hr IV . Q5H VENKAT Rx#:[id number] Vancomycin 2,000 mg In 500 Sodium Chloride 0.9% 500 ml 500 ml @ 167 mls/hr IVPB Q24H VENKAT Rx#: [id number] Oral 240 Output: Urine 900 500 Uretheral (Cobos) 500 Other: Voiding Method Indwelling Catheter Indwelling Catheter Indwelling Catheter Weight 168.6 kg GENERAL EXAM: Morbidly obese and disheveled, alert, fairly comfortable in no acute distress. On 2 L nasal cannula HEAD: Normocephalic. EYES: Normal reaction of pupils, equal size. NOSE: Clear with pink turbinates. THROAT: Crowding of the posterior pharynx. Poor dentition. NECK: Short. No masses, no JVD. CHEST: No chest wall deformity. LUNGS: Equal air entry with no crackles, wheeze, rhonchi or dullness. CVS: S1 and S2 normal with no audible murmur, regular rhythm. ABDOMEN: Obese. No hepatosplenomegaly, normal bowel sounds, no guarding or rigidity. SPINE: No scoliosis or deformity SKIN: Multiple areas of excoriation and maceration of the coccyx and buttocks posterior heels CENTRAL NERVOUS SYSTEM: No focal deficits, tone is normal in all 4 extremities. EXTREMITIES: There is just of chronic venous stasis of the lower extremities, bilateral heel wounds amputated left great toe. No clubbing, no cyanosis. Peripheral pulses are intact. Results - Laboratory Findings CBC and BMP: 07/24/18 07:13 07/24/18 07:13 Abnormal lab findings: Abnormal Labs 07/23/18 07/23/18 07/23/18 15:20 15:20 21:22 WBC 14.3 H RBC Hgb Hct Neutrophils # 12.2 H Lymphocytes # 0.8 L Potassium 3.0 L Chloride BUN 29 H Creatinine 1.65 H Glucose 108 H POC Glucose (mg/dL) Creatine Kinase 05714 H* Urine Appearance Cloudy H Urine Protein 2+ H Urine Ketones 1+ H Urine Blood Large H Urine WBC 9 H Urine Bacteria Moderate H Hyaline Casts 10 H Urine Mucus Occasional H 07/24/18 07/24/18 07/24/18 03:14 07:13 07:13 WBC 11.5 H RBC 3.11 L Hgb 9.0 L D Hct 28.1 L Neutrophils # 10.4 H Lymphocytes # 0.6 L Potassium 3.0 L Chloride 112 H BUN 24 H Creatinine Glucose POC Glucose (mg/dL) Creatine Kinase 7683 H* Urine Appearance Urine Protein Urine Ketones Urine Blood Urine WBC Urine Bacteria Hyaline Casts Urine Mucus 07/24/18 14:18 WBC RBC Hgb Hct Neutrophils # Lymphocytes # Potassium Chloride BUN Creatinine Glucose POC Glucose (mg/dL) 66 L Creatine Kinase Urine Appearance Urine Protein Urine Ketones Urine Blood Urine WBC Urine Bacteria Hyaline Casts Urine Mucus - Diagnostic Findings Chest x-ray: image reviewed (No acute pulmonary process) Assessment and Plan Assessment: Impression: #1 Acute sepsis secondary to suspected osteomyelitis of the left heel ulcer, multiple open wounds and urinary tract infection. #2 Rhabdomyolysis secondary to having prolonged weakness and inability to walk for several days and her to suspected influenza as the patient had days of nausea vomiting diarrhea. #3 Altered mental status secondary to acute metabolic encephalopathy secondary to above. #4 Acute renal failure. #5 Morbid obesity with a BMI of 56. #6 Urinary tract infection culture pending. #7 History of previous osteomyelitis of the left great toe status post amputation. #8 Hypothyroidism. #9 Hyperlipidemia. #10 poor overall functional performance based on the above-mentioned multiple comorbidities. The patient also needs social work involved due to deplorable living conditions. Plan: The patient was seen and evaluated by Dr. Mitchell. Chest x-ray and labs are reviewed. We'll give the patient additional 2 L of fluid resuscitation. Keep 0.9 normal saline at 200 ML's per hour. Monitor I&O. Continue with antibiotics in the form of vancomycin and Zosyn. Heparin for DVT prophylaxis. We'll continue to monitor her here closely in the intensive care unit. She did have debridement of the open wound of the left heel by Dr. Danielson today. Continue wound care. We'll continue to follow and make further recommendations based on her clinical status. I, the cosigning physician, performed a history & physical examination of the patient. Lungs sounds are clear. Maintaining good O2 saturations in the 90s on room air. I discussed the assessment and plan of care with my nurse practitioner, Elizabeth Benedict. I attest to the above consult patient as dictated by her. Time with Patient: Greater than 30
[2018-07-24 15:32] LABS: Glucose,Whole Blood 76 mg/dL (75-99)
[2018-07-24 16:23] LABS: Glucose,Whole Blood 76 mg/dL (75-99)
[2018-07-24] MEDS: HYDROcodone/APAP 7.5-325MG 1 EACH TAB PO PRN (16:30)
--- NOTE | 2018-07-24 17:11 | CT ---
EXAMINATION TYPE: CT brain wo con DATE OF EXAM: 07/24/2018 HISTORY: Weakness CT DLP: 1099.4 mGycm. Automated Exposure Control for Dose Reduction was Utilized. TECHNIQUE: CT scan of the head is performed without contrast. COMPARISON: None. FINDINGS: There is no acute intracranial hemorrhage or midline shift identified. The ventricular sy stem and cortical sulci are within normal limits. The globes are intact and the visualized sinuses ar e clear. A dural based extra-axial calcified mass is identified in the right cerebellopontine angle measuring up to 1.4 cm in greatest dimension. There is some hyperostosis of the underlying calvarium . There is no obvious vasogenic edema at this location. IMPRESSION: 1. No acute intracranial hemorrhage or midline shift. 2. 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 Meningioma is favored al though other etiologies are certainly possible. Further evaluation with MRI should be considered. Co mparison with prior studies if available would also be of benefit.
[2018-07-24] MEDS: MIDODRINE 5 MG TAB PO SCH (17:56)
--- NOTE | 2018-07-24 19:39 | PN ---
PROGRESS NOTE DATE OF SERVICE: 07/24/2018 This 62-year-old woman admitted with weakness, had significant ulceration of the left heel. Patient also had multiple ulcerations also. The patient also had severe hypotension which is not responding to IV fluids at this time. Patient started on broad-spectrum IV antibiotics. Foul smelling odor was noted from the ulceration. The patient also had change in mental status also. Multiple consultants are following the patient closely. PAST MEDICAL HISTORY: Reviewed. REVIEW OF SYSTEMS: CARDIOVASCULAR: No angina or palpitations. RESPIRATORY: As mentioned earlier. GI: As mentioned earlier. : No dysuria. CENTRAL NERVOUS SYSTEM: No focal deficits. CURRENT MEDICATIONS ARE: Reviewed and include: 1. Tylenol 650 q.6h p.r.n. 2. [place] 7.5 q.6h. 3. Xanax 0.5 t.i.d. 4. Vitamin D3 2000 daily. 5. Neurontin 900 mg p.o. daily and 600 mg p.o. b.i.d. 6. Heparin 5000 subcu b.i.d. 7. Dilaudid p.r.n. 8. Synthroid 100 mcg p.o. daily. 9. ProAmatine 5 mg a.c. t.i.d. 10.Multivitamin. 11.Narcan 0.2 q.2h p.r.n. 12.Zofran 4 mg q.8h p.r.n. 13.Protonix 40 mg IV daily. 14.Zosyn 3.375 g IV q.8h. 15.Lyrica 50 mg p.o. t.i.d. 16.SilvaSorb 1 application daily. 17.Restoril 15 mg q.h.s. p.r.n. 18.Vancomycin 2 g IV daily. PHYSICAL EXAM: Patient is alert, oriented x2. Pulse 68, blood pressure 105/70, respiration 19, temperature normal, pulse ox 92% on 3 L. HEENT is conjunctivae normal. Oral mucosa moist. Neck is no jugular venous distention. No carotid bruit. No lymph node enlargement. Cardiac: S1, S2. Respiration: Breath sounds diminished in the bases. A few scattered rhonchi and crackles. ABDOMEN: Soft, obese, nontender. Legs significant ulceration of the left leg. grade 3-4. LABS: WBC 11.1, hemoglobin is 9, sodium 140 and potassium 3. ASSESSMENT: 1. Acute on chronic left heel ulcer with possible osteomyelitis and sepsis. 2. Hypotension with possibly septic shock and severe sepsis. 3. Change in mental status acute metabolic acidosis secondary to sepsis. 4. Increased WBC. 5. Acute rhabdomyolysis. 6. Acute renal failure. 7. Hypokalemia. 8. Morbid obesity. 9. Hypertension. 10.Degenerative joint disease. 11.History of hypothyroidism. 12.Urinary tract infection. 13.History of section. 14.History of MRSA. 15.FULL CODE. RECOMMENDATIONS AND DISCUSSION: In this 62-year-old woman who presented with multiple complex medical issues, we will monitor the patient closely, continue the current medications, management and symptomatic treatment. We will continue with Zosyn and vancomycin. Otherwise, IV fluids have been given, we will try bolus fluids and discuss with Dr. Danielson who will perform bedside debridement and obtain further cultures. Otherwise, I would also recommend the patient transferred to ICU and consult Dr. Mitchell for continued management. The patient might need pressor support. The blood pressure is not improving after fluid bolus and septic sepsis protocol. We will continue to monitor. Further recommendations to follow. Creatinine kinase showing some slightly diminished trends with a 7683 today. MMODL / IJN: [id number] / JERRY
[2018-07-24] MEDS: POTASSIUM CHLORIDE ER 20 MEQ TAB.ER PO SCH ×2 (21:10→23:13)
[2018-07-24 22:11] LABS: Glucose,Whole Blood 102 mg/dL (75-99)
[2018-07-25 01:08] LABS: Magnesium 1.8 mg/dL (1.6-2.3); Potassium 3.2 mmol/L (3.5-5.1)
[2018-07-25] MEDS: VANCOMYCIN 2,000 MG in SODIUM CHLORIDE 0.9% 500 ML 500 ML IVPB SCH (01:24)
[2018-07-25] MEDS: POTASSIUM CHLORIDE ER 20 MEQ TAB.ER PO SCH ×2 (01:47→03:10)
[2018-07-25] MEDS: MAGNESIUM SULFATE-D5W PMX 1 GM in DEXTROSE/WATER 1 100ML.BAG IVPB SCH ×2 (01:48→04:37)
[2018-07-25] MEDS: PIPERACILLIN-TAZOBACTAM 3.375 GM in SODIUM CHLORIDE 0.9% 100 ML IVPB SCH ×3 (03:11→18:51)
[2018-07-25] MEDS: SODIUM CHLORIDE 0.9% 1,000 ML IV SCH ×4 (03:13→14:52)
[2018-07-25 05:46] LABS: Anion Gap 3 mmol/L; Blood Urea Nitrogen 18 mg/dL (7-17); Calcium 8.2 mg/dL (8.4-10.2); Carbon Dioxide 24 mmol/L (22-30); Chloride 116 mmol/L (98-107); Glucose 85 mg/dL (74-99); Potassium 3.6 mmol/L (3.5-5.1); Sodium 143 mmol/L (137-145)
[2018-07-25 05:48] LABS: Basophils % (A) 0 %; Eosinophils # (A) 0.1 k/uL (0-0.7); Eosinophils % (A) 1 %; HCT 24.4 % (34.0-46.0); HGB 7.9 gm/dL (11.4-16.0); Hypochromasia Slight; Lymphocytes # (A) 0.6 k/uL (1.0-4.8); Lymphocytes % (A) 7 %; MCH 29.8 pg (25.0-35.0); MCHC 32.5 g/dL (31.0-37.0); MCV 91.6 fL (80.0-100.0); Mean Platelet Volume 8.9; Monocytes # (A) 0.4 k/uL (0-1.0); Monocytes % (A) 5 %; Neutrophils # (A) 6.7 k/uL (1.3-7.7); Neutrophils % (A) 84 %; Platelet Count 235 k/uL (150-450); RBC 2.66 m/uL (3.80-5.40); WBC 7.9 k/uL (3.8-10.6)
[2018-07-25 05:54] LABS: Creatine Kinase 2748 U/L (30-135)
[2018-07-25] MEDS: LEVOTHYROXINE 100 MCG TAB PO SCH (06:08)
[2018-07-25] MEDS ORDERED: POTASSIUM CHLORIDE ER 20 MEQ TAB.ER PO SCH (07:00)
[2018-07-25] MEDS: VANCOMYCIN 2,500 MG in SODIUM CHLORIDE 0.9% 500 ML 500 ML IVPB SCH ×2 (10:24→21:45)
[2018-07-25] MEDS: CHOLECALCIFEROL 1,000 UNIT TAB PO SCH (10:30)
[2018-07-25] MEDS: MIDODRINE 5 MG TAB PO SCH ×3 (10:30→17:52)
[2018-07-25] MEDS: PANTOPRAZOLE 40 MG/10 ML VIAL IV SCH (10:30)
[2018-07-25] MEDS: HEPARIN SODIUM,PORCINE 5,000 UNIT/ML 1 ML VIAL SQ SCH ×2 (10:30→21:45)
[2018-07-25] MEDS: PREGABALIN 50 MG CAP PO SCH ×3 (10:31→21:45)
[2018-07-25] MEDS: GABAPENTIN 300 MG CAP PO SCH ×3 (10:31→21:45)
--- NOTE | 2018-07-25 10:57 | P.PN ---
Subjective Progress Note Date: 07/25/18 Seen and examined for the follow-up of acute kidney injury and rhabdomyolysis. Was moved to ICU yesterday for hypotension. Blood pressures much better today. No nausea vomiting or diarrhea. Objective - Vital Signs Vital signs: Vital Signs Temp 98.1 F 07/25/18 04:00 Pulse 64 07/25/18 07:00 Resp 22 07/25/18 07:00 BP 116/62 07/25/18 07:00 Pulse Ox 97 07/25/18 09:19 Intake & Output 07/24/18 07/25/18 07/25/18 18:59 06:59 18:59 Intake Total 2640 2951 200 Output Total 155 485 55 Balance 2485 2466 145 Weight 168.6 kg 170.6 kg Intake: IV 2501 200 Magnesium Sulfate-D5w Pmx 200 1 gm In Dextrose/Water 1 100ml.bag @ 100 mls/hr IVPB Q1H [facility] Rx#: [id number] Piperacillin-Tazobactam 3 200 .375 gm In Sodium Chloride 0.9% 100 ml @ 25 mls/hr IVPB Q8H [facility] Rx#: [id number] Sodium Chloride 0.9% 1, 1600 200 000 ml @ 200 mls/hr IV . Q5H [facility] Rx#:[id number] Vancomycin 2,000 mg In 501 Sodium Chloride 0.9% 500 ml 500 ml @ 167 mls/hr IVPB Q24H [facility] Rx#: [id number] Intake, IV Titration 2400 200 Amount Sodium Chloride 0.9% 1, 400 200 000 ml @ 200 mls/hr IV . Q5H [facility] Rx#:[id number] Sodium Chloride 0.9% 2, 2000 000 ml @ 999 mls/hr IV . Q2H1M [facility] Rx#:[id number] Oral 240 250 Output: Urine 155 485 55 Other: Voiding Method Indwelling Catheter Indwelling Catheter - Exam No acute distress S1-S2 heard Diminished breath sounds Left heel ulcer Trace edema - Labs CBC & Chem 7: 07/25/18 04:23 07/25/18 04:23 Labs: Abnormal Lab Results - Last 24 Hours (Table) 07/24/18 07/24/18 07/24/18 Range/Units 07:13 07:13 14:18 WBC 11.5 H (3.8-10.6) k/uL RBC 3.11 L (3.80-5.40) m/uL Hgb 9.0 L D (11.4-16.0) gm/dL Hct 28.1 L (34.0-46.0) % Neutrophils # 10.4 H (1.3-7.7) k/uL Lymphocytes # 0.6 L (1.0-4.8) k/uL Potassium 3.0 L (3.5-5.1) mmol/L Chloride 112 H (98-107) mmol/L BUN 24 H (7-17) mg/dL POC Glucose (mg/dL) 66 L (75-99) mg/dL Calcium (8.4-10.2) mg/dL Creatine Kinase (30-135) U/L 07/24/18 07/24/18 07/25/18 Range/Units 14:49 22:01 00:43 WBC (3.8-10.6) k/uL RBC (3.80-5.40) m/uL Hgb (11.4-16.0) gm/dL Hct (34.0-46.0) % Neutrophils # (1.3-7.7) k/uL Lymphocytes # (1.0-4.8) k/uL Potassium 3.2 L (3.5-5.1) mmol/L Chloride (98-107) mmol/L BUN (7-17) mg/dL POC Glucose (mg/dL) 71 L 102 H (75-99) mg/dL Calcium (8.4-10.2) mg/dL Creatine Kinase (30-135) U/L 07/25/18 07/25/18 Range/Units 04:23 04:23 WBC (3.8-10.6) k/uL RBC 2.66 L (3.80-5.40) m/uL Hgb 7.9 L (11.4-16.0) gm/dL Hct 24.4 L (34.0-46.0) % Neutrophils # (1.3-7.7) k/uL Lymphocytes # 0.6 L (1.0-4.8) k/uL Potassium (3.5-5.1) mmol/L Chloride 116 H (98-107) mmol/L BUN 18 H (7-17) mg/dL POC Glucose (mg/dL) (75-99) mg/dL Calcium 8.2 L (8.4-10.2) mg/dL Creatine Kinase 2748 H* (30-135) U/L Microbiology - Last 24 Hours (Table) 07/24/18 01:55 Urine Culture - Preliminary Urine,Catheterized Gram Neg Bacilli 07/24/18 03:14 Blood Culture - Preliminary Blood No Growth after 24 hours 07/24/18 13:00 Gram Stain - Preliminary Foot - Left Wound Culture - Preliminary 07/24/18 03:30 Nasal Culture - Preliminary Nasal Swab Assessment and Plan Assessment: #1 acute kidney injury secondary to hemodynamics and rhabdomyolysis. Baseline creatinine 0.7 MG per DL. #2 sepsis with left heel ulcer, with suspicion of osteomyelitis #3 hypotension, suspect secondary to sepsis #4 hyperchloremic metabolic acidosis #5 proteinuria on UA Plan: #1 agree with stopping lisinopril, Motrin and statin. Creatinine improving with IV fluids. #2 creatinine back to baseline. Continue to hold antihypertensive agents for now. #3 by tomorrow change midodrine with parameteters with holding if systolic is more than 120. #4 repeat labs in the morning.
[2018-07-25] MEDS: HYDROcodone/APAP 7.5-325MG 1 EACH TAB PO PRN ×2 (12:32→17:47)
[2018-07-25] MEDS: MULTIVITAMINS, THERA 1 EACH TAB PO SCH (12:33)
--- NOTE | 2018-07-25 12:41 | P.PN ---
Subjective Progress Note Date: 07/25/18 Principal diagnosis: Acute sepsis, suspected osteomyelitis of left heel ulcer. And acute rhabdomyolysis. This is a very pleasant 62-year-old female patient who follows with Dr. Mcfarlane as her primary care physician. She has a history of morbid obesity with a BMI of 56, primary osteoarthritis of multiple joints, hypertension, hypothyroidism, chronic urinary stress incontinence, osteomyelitis of the left big toe followed by amputation, multiple open wounds being followed in the wound Center. She also has excoriated sacral area. She states she does ambulate with a walker. Her legs show changes of chronic venous stasis. She states she had been having flulike symptoms past 10 days with nausea vomiting and diarrhea. She's been profoundly weak. She has not walked since 07/21/2018 and was unable to get up to answer the door yesterday morning and her neighbor called EMS. They transported here to the emergency room around 11 AM and examined for her having slid out of her wheelchair. X-rays revealed no acute fractures. Her skin was cleaned she was hydrated with water and discharge back to home by EMS. Once back in her apartment she was unable to even get up off the stretcher so they returned her to the emergency room approximately 3 PM. She was then admitted for further evaluation. Her living conditions are quite poor and there was concern about her being there alone. EMS reported the place was filthy and soiled with stool everywhere. She was initially admitted to the floor and later transferred here to the intensive care unit today due to hypotension. She has also been hypotensive with a mean arterial pressure of 57. She was also hypoglycemic with a blood glucose of 66. Her initial creatinine kinase was 12,000 improved to 7683 after 1-1/2 L of fluid resuscitation. She is seen today in consultation in the intensive care unit. She is currently awake and alert and oriented. O2 saturations in the 90s on 2 L/m per nasal cannula. Current b lood pressure 114/58. She's afebrile. She is still quite thirsty and dry. She has been initiated on vancomycin and Zosyn. 0.9 normal saline at 200 ML's per hour. White count 11.5. Hemoglobin 9.0. Creatinine 0.97. Influenza screen negative. Urinalysis with moderate bacteria. Culture pending. Patient was reevaluated today on 07/25/2018, remains in the ICU, hemodynamically stable, responded most of the fluid boluses, remains on antibiotics, patient is feeling better, denies any cough wheezing or shortness of breath, remained generally weak. Did not require any pressors. Labs were reviewed she had a relatively normal CBC hemoglobin is a bit low at 7.9. Her basic metabolic profile is normal renal profile is normal and her CPK is 2748 today, it was over 12,000 on admission. Chest x-ray was reviewed and there was no evidence of active disease. Objective - Vital Signs Vital signs: Vital Signs Temp 98.1 F 07/25/18 04:00 Pulse 64 07/25/18 07:00 Resp 22 07/25/18 07:00 BP 116/62 07/25/18 07:00 Pulse Ox 97 07/25/18 09:19 Intake & Output 07/24/18 07/25/18 07/25/18 18:59 06:59 18:59 Intake Total 2640 2951 200 Output Total 155 485 55 Balance 2485 2466 145 Weight 168.6 kg 170.6 kg Intake: IV 2501 200 Magnesium Sulfate-D5w Pmx 200 1 gm In Dextrose/Water 1 100ml.bag @ 100 mls/hr IVPB Q1H [facility] Rx#: [id number] Piperacillin-Tazobactam 3 200 .375 gm In Sodium Chloride 0.9% 100 ml @ 25 mls/hr IVPB Q8H [facility] Rx#: [id number] Sodium Chloride 0.9% 1, 1600 200 000 ml @ 200 mls/hr IV . Q5H [facility] Rx#:[id number] Vancomycin 2,000 mg In 501 Sodium Chloride 0.9% 500 ml 500 ml @ 167 mls/hr IVPB Q24H [facility] Rx#: [id number] Intake, IV Titration 2400 200 Amount Sodium Chloride 0.9% 1, 400 200 000 ml @ 200 mls/hr IV . Q5H [facility] Rx#:[id number] Sodium Chloride 0.9% 2, 2000 000 ml @ 999 mls/hr IV . Q2H1M [facility] Rx#:[id number] Oral 240 250 Output: Urine 155 485 55 Other: Voiding Method Indwelling Catheter Indwelling Catheter - Exam GENERAL EXAM: Morbidly obese and disheveled, alert, fairly comfortable in no acute distress. On 2 L nasal cannula HEAD: Normocephalic. EYES: Normal reaction of pupils, equal size. NOSE: Clear with pink turbinates. THROAT: Crowding of the posterior pharynx. Poor dentition. NECK: Short. No masses, no JVD. CHEST: No chest wall deformity. LUNGS: Equal air entry with no crackles, wheeze, rhonchi or dullness. CVS: S1 and S2 normal with no audible murmur, regular rhythm. ABDOMEN: Obese. No hepatosplenomegaly, normal bowel sounds, no guarding or rigidity. SPINE: No scoliosis or deformity SKIN: Multiple areas of excoriation and maceration of the coccyx and buttocks posterior heels CENTRAL NERVOUS SYSTEM: No focal deficits, tone is normal in all 4 extremities. EXTREMITIES: There is just of chronic venous stasis of the lower extremities, bilateral heel wounds amputated left great toe. No clubbing, no cyanosis. Peripheral pulses are intact. - Labs CBC & Chem 7: 07/25/18 04:23 07/25/18 04:23 Labs: Abnormal Lab Results - Last 24 Hours (Table) 07/24/18 07/24/18 07/24/18 Range/Units 14:18 14:49 22:01 RBC (3.80-5.40) m/uL Hgb (11.4-16.0) gm/dL Hct (34.0-46.0) % Lymphocytes # (1.0-4.8) k/uL Potassium (3.5-5.1) mmol/L Chloride (98-107) mmol/L BUN (7-17) mg/dL POC Glucose (mg/dL) 66 L 71 L 102 H (75-99) mg/dL Calcium (8.4-10.2) mg/dL Creatine Kinase (30-135) U/L 07/25/18 07/25/18 07/25/18 Range/Units 00:43 04:23 04:23 RBC 2.66 L (3.80-5.40) m/uL Hgb 7.9 L (11.4-16.0) gm/dL Hct 24.4 L (34.0-46.0) % Lymphocytes # 0.6 L (1.0-4.8) k/uL Potassium 3.2 L (3.5-5.1) mmol/L Chloride 116 H (98-107) mmol/L BUN 18 H (7-17) mg/dL POC Glucose (mg/dL) (75-99) mg/dL Calcium 8.2 L (8.4-10.2) mg/dL Creatine Kinase 2748 H* (30-135) U/L Microbiology - Last 24 Hours (Table) 07/24/18 03:30 Nasal Culture - Preliminary Nasal Swab 07/24/18 01:55 Urine Culture - Preliminary Urine,Catheterized Gram Neg Bacilli 07/24/18 03:14 Blood Culture - Preliminary Blood No Growth after 24 hours 07/24/18 13:00 Gram Stain - Preliminary Foot - Left Wound Culture - Preliminary Assessment and Plan Assessment: #1 Acute sepsis secondary to suspected osteomyelitis of the left heel ulcer, multiple open wounds and urinary tract infection. #2 acute Rhabdomyolysis secondary to having prolonged weakness improving, CPK is significantly better today, but not back to normal. #3 Altered mental status, improving with her improving metabolic abnormalities. #4 Acute renal failure. Resolved. #5 Morbid obesity with a BMI of 56. #6 Urinary tract infection culture pending. #7 History of previous osteomyelitis of the left great toe status post amputation. #8 Hypothyroidism. #9 Hyperlipidemia. #10 poor overall functional performance based on the above-mentioned multiple comorbidities. The patient also needs social work involved due to deplorable living conditions. Recommendation: Continue fluids, continue antibiotics, adjust antibiotics based on the final cultures, she is presently on vancomycin and Zosyn, continue DVT prophylaxis, GI prophylaxis, patient is being followed by many consultants. Considering the stability over the last 24 hours, patient could be transferred to regular medical floor, and we'll continue to follow. Arrangement will be made for the patient to transfer today nurses were notified Time with Patient: Less than 30
--- NOTE | 2018-07-25 14:05 | XR ---
EXAMINATION TYPE: XR chest 1V portable DATE OF EXAM: 07/25/2018 COMPARISON: 07/24/2018 INDICATION: Short of breath TECHNIQUE: Single frontal view of the chest is obtained. FINDINGS: The heart size is normal. The pulmonary vasculature is normal. Some mild left lower lobe infiltrate may be present in the retrocardiac region. Suspicious consolidations are not otherwise identified. IMPRESSION: 1. Clinical correlation recommended for left base retrocardiac filtrate.
[2018-07-25] MEDS: SILVER GEL 44.4 APPLIC/44.4 ML TUBE TOPICAL SCH (14:48)
[2018-07-25] MEDS ORDERED: ALBUTEROL NEBULIZED 2.5 MG/3 ML INHALATION PRN (21:52)
[2018-07-25] MEDS ORDERED: IPRATROPIUM-ALBUTEROL 3 ML NEB INHALATION PRN (22:00)
--- NOTE | 2018-07-25 22:24 | XR ---
EXAM: XR Chest, 1 View CLINICAL HISTORY: ITS.REASON XR Reason: shortness of breath TECHNIQUE: Frontal view of the chest. COMPARISON: 07/24/18. FINDINGS: Lungs: Prominent interstitial lung opacities with mild basilar atelectasis or infiltrate. Pleural space: Trace right pleural effusion not excluded. Heart: Stable cardiomediastinal silhouette. Mediastinum: See above. Bones/joints: Stable. IMPRESSION: 1. Prominent interstitial lung opacities with mild basilar atelectasis or infiltrate. Correlate clinically regarding infection or edema. 2. Trace right pleural effusion not excluded.
--- NOTE | 2018-07-25 23:46 | PN ---
PROGRESS NOTE DATE OF SERVICE: 07/25/2018 This 62-year-old woman who was admitted with acute on chronic heel ulcer also had features of sepsis. Patient had hypotension. Patient transferred to ICU. The patient started on broad-spectrum IV antibiotics. Patient also had a bedside debridement by Dr. Danielson. The patient also had renal failure. Patient seen with multiple consultants. The patient also had diarrhea. Patient also had significant respiratory difficulty. A chest x-ray was done today which was reviewed personally by me and showed some retrocardiac infiltrate. PAST MEDICAL HISTORY: Reviewed. REVIEW OF SYMPTOMS: CARDIOVASCULAR: As mentioned earlier. RESPIRATORY: As mentioned earlier. GI as mentioned earlier. : No dysuria or retention. CENTRAL NERVOUS SYSTEM: No focal deficits. CURRENT MEDICATIONS: 1. Tylenol 650 q.6h p.r.n. 2. [place] 7.5 q.6h p.r.n. 3. Ventolin 2.5 q.i.d. 4. Xanax 0.5 t.i.d. 5. Vitamin D3. 6. Neurontin 900 mg q.h.s. 7. Heparin 5000 subcu b.i.d. 8. Dilaudid 0.5 q.6h p.r.n. 9. Synthroid. 11.Vancomycin. 12.Multivitamins. 13.Zosyn. 14.Lyrica. 15.Restoril. PHYSICAL EXAM: Patient is alert, oriented x3. Pulse 80. Blood pressure 126/63, respiration 21, temperature up to 100 degrees, pulse ox 98% on 2 L. HEENT is conjunctivae normal. Neck: No jugular venous distention. CARDIOVASCULAR: S1, S2 muffled. RESPIRATORY: Breath sounds diminished in the bases. Bilateral scattered rhonchi and crackles. Abdomen is soft, obese, nontender. Legs: Left leg wound present. Nervous system: No focal deficits. LABS: Creatinine is 2748, hemoglobin 7.9, potassium 3.6. ASSESSMENT: 1. Acute on chronic left heel ulcer with osteo, possible osteomyelitis and sepsis with severe sepsis present on admission. 2. Hypotension with possible septic shock and severe sepsis. 3. Change in mental status acute metabolic encephalopathy secondary to sepsis. 4. Diarrhea, rule out C difficile colitis. 5. Bronchoscopy spasm, rule out fluid overload. 6. Increased WBC. 7. Acute rhabdomyolysis. 8. Acute renal failure. 9. Hypokalemia. 10.Morbid obesity. 11.Hypertension. 12.Degenerative joint disease. 13.History of hypothyroidism. 14.Urinary tract infection. 15.History of section. 16.History of MRSA. 17.FULL CODE. RECOMMENDATIONS AND DISCUSSION: In this 62-year-old woman who presented with multiple medical issues, we will monitor the patient closely. Continue the current medications, management with symptomatic treatment. Continue broad-spectrum IV antibiotics. Monitor fluid and electrolytes balance closely. I would also recommend a portable chest x-ray stat to rule out the possibility of any fluid overload. Otherwise, I would also recommend intensive bronchodilators. Otherwise continue the rest of the medications. The prognosis guarded because of multiple complex medical issues. Further recommendations to follow. See orders for details. MMODL / IJN: [id number] / MTDD
--- NOTE | 2018-07-25 23:54 | P.CONS ---
History of Present Illness - Reason for Consult Consult date: 07/25/18 - Chief Complaint Ulceration to the left heel - History of Present Illness 62 -year-old woman who is known to the service where she has had difficulties with lower extremity ulcerations and bouts of sepsis in the past. His related that she's been following in the wound healing center with a vascular surgeon. Apparently she was brought to Hospital by EMS because of very poor mental status and what appears to be evidence of unresponsiveness. The. There were difficulties with the home setting also at the time of the transportation to the hospital. She is now admitted and there was evidence of the rhabdomyolysis before she is not having significant renal failure. She is feeling very poorly overall. It is noted at the ulceration had markedly worsened and was frankly necrotic and follow-up. She's been seen by her vascular surgeon and bedside debridement has occurred and there was some bleeding at the site. She feels very poorly overall. Review of Systems HEENT:Denies headache or acute visual change. Denies sinus or mouth discomforts. Denies neck stiffness or pain. Denies significant oral cavity pain. Denies difficulty on swallowing. Lungs: Chronic shortness of breath without acute changein production or hemoptysis Cardiovascular: Chronic shortness of breath but no chest pain or pressure Gastrointestinal:Denies nausea, vomiting, diarrhea, constipation, hematemesis, melena, hematochezia. No no significant change of bowel habit noticed. Musculoskeletal: Chronic profound weakness that has worsened Skin: Chronic ulcerations left heel markedly worst Neuro: Episode of unresponsiveness and weakness was brought by EMS and she was not aware of the presence until that were waking her up to transport her to Hospital Psychiatric:Denies anxiety or depression. Endocrine: Fatigue and weight gain Past Medical History Past Medical History: Hypertension, Osteoarthritis (OA), Skin Disorder, Thyroid Disorder Additional Past Medical History / Comment(s): UTI, neuropathy, anemia, umbilical hernia, WOUND LEFT HEEL, umb hernia, breakdown lt foot goes to [facility], strss incon t of urine History of Any Multi-Drug Resistant Organisms: MRSA Year Discovered:: 04/04/17 MDRO Source:: Left-Fifth Toe Past Surgical History: Section, Cholecystectomy, Orthopedic Surgery, Tubal Ligation Additional Past Surgical History / Comment(s): D&C x 3, arthroscopic left knee x 2 Past Anesthesia/Blood Transfusion Reactions: Previous Problems w/ Anesthesia Additional Past Anesthesia/Blood Transfusion Reaction / Comm: slow to come out of it Past Psychological History: No Psychological Hx Reported Additional Psychological History / Comment(s): pt lives alone in a single level home that has 3 steps in which to enter. no pets.uses a cane when up. receives formerly [facility] home care nurse. His related at the time of transport that the home was in very poor condition Smoking Status: Former smoker Past Alcohol Use History: Rare Additional Past Alcohol Use History / Comment(s): started smoking 1970, quit 1990, 1 ppd. Patient denies any medical marijuana, marijuana, street drug or alcohol use. She worked in the past as a nurse at [employer]. Past Drug Use History: None Reported - Past Family History Father Family Medical History: Cancer, Coronary Artery Disease (CAD), Myocardial Infarction (ID), Prostate Disorder Additional Family Medical History / Comment(s): Prostate CA Mother Family Medical History: Cancer, CVA/TIA, Hyperlipidemia Additional Family Medical History / Comment(s): Lung CA-left lobe removed Medications and Allergies Home Medications and Allergies Comment(s): Current Medications Acetaminophen (Tylenol Tab) 650 mg PO Q6HR PRN PRN Reason: Mild Pain or Fever > 100.5 Hydrocodone Bitart/Acetaminophen ([place] 7.5-325) 1 each PO Q6HR PRN PRN Reason: Pain Last Admin: 07/25/18 17:47 Dose: 1 each Documented by: Albuterol Sulfate (Ventolin Nebulized) 2.5 mg INHALATION RT-QID PRN PRN Reason: Shortness Of Breath Or Wheezing Albuterol/Ipratropium (Duoneb 0.5 Mg-3 Mg/3 Ml Soln) 3 ml INHALATION RT-TID COUNT INCLUDES THE [facility] Albuterol/Ipratropium (Duoneb 0.5 Mg-3 Mg/3 Ml Soln) 3 ml INHALATION RT-TID PRN PRN Reason: Shortness Of Breath Or Wheezing Alprazolam (Xanax) 0.25 mg PO TID PRN PRN Reason: Anxiety Cholecalciferol (Vitamin D3) 2,000 unit PO DAILY COUNT INCLUDES THE [facility] Last Admin: 07/25/18 10:30 Dose: 2,000 unit Documented by: Gabapentin (Neurontin) 600 mg PO BID@1000,1400 COUNT INCLUDES THE [facility] Last Admin: 07/25/18 17:11 Dose: 600 mg Documented by: Gabapentin (Neurontin) 900 mg PO HS@2200 COUNT INCLUDES THE [facility] Last Admin: 07/25/18 21:45 Dose: 900 mg Documented by: Heparin Sodium (Porcine) (Heparin) 5,000 unit SQ Q12HR COUNT INCLUDES THE [facility] Last Admin: 07/25/18 21:45 Dose: 5,000 unit Documented by: Hydromorphone HCl (Dilaudid) 0.5 mg IVP Q6HR PRN PRN Reason: Severe Pain Sodium Chloride (Saline 0.9%) 1,000 mls @ 50 mls/hr IV .Q20H COUNT INCLUDES THE [facility] Last Admin: 07/25/18 14:52 Dose: 100 mls/hr Documented by: Piperacillin Sod/Tazobactam (Sod 3.375 gm/ Sodium Chloride) 100 mls @ 25 mls/hr IVPB Q8H COUNT INCLUDES THE [facility] Last Admin: 07/25/18 18:51 Dose: 25 mls/hr Documented by: Vancomycin HCl 2,500 mg/ (Sodium Chloride) 500 mls @ 167 mls/hr IVPB Q12H COUNT INCLUDES THE [facility] Last Admin: 07/25/18 21:45 Dose: 167 mls/hr Documented by: Levothyroxine Sodium (Synthroid) 100 mcg PO 0630 COUNT INCLUDES THE [facility] Last Admin: 07/25/18 06:08 Dose: 100 mcg Documented by: Midodrine (Proamatine) 5 mg PO AC-TID COUNT INCLUDES THE [facility] Last Admin: 07/25/18 17:52 Dose: 5 mg Documented by: Miscellaneous Information (Vancomycin Trough Due) 0 each MISCELLANE DIRECTED ONE Stop: 07/26/18 09:01 Multivitamins (Theragran) 1 each PO DAILY@1200 COUNT INCLUDES THE [facility] Last Admin: 07/25/18 12:33 Dose: 1 each Documented by: Naloxone HCl (Narcan) 0.2 mg IV Q2M PRN PRN Reason: Opioid Reversal Ondansetron HCl (Zofran) 4 mg IVP Q8HR PRN PRN Reason: Nausea And Vomiting Pantoprazole Sodium (Protonix) 40 mg IV DAILY COUNT INCLUDES THE [facility] Last Admin: 07/25/18 10:30 Dose: 40 mg Documented by: Pregabalin (Lyrica) 50 mg PO TID@1000,1400,2200 COUNT INCLUDES THE [facility] Last Admin: 07/25/18 21:45 Dose: 50 mg Documented by: Silver (Ionized) (Silvasorb Gel) 1 applic TOPICAL DAILY COUNT INCLUDES THE [facility] Last Admin: 07/25/18 14:48 Dose: 1 cream Documented by: Temazepam (Restoril) 15 mg PO HS PRN PRN Reason: Insomnia Home Medications Medication Instructions Recorded Confirmed Type Levothyroxine Sodium [Synthroid] 100 mcg PO DAILY 08/29/13 07/23/18 History Lisinopril [Zestril] 40 mg PO BID 08/29/13 07/23/18 History Gabapentin [Neurontin] 600 mg PO BID@1000,1400 cap 09/15/16 07/23/18 Rx Pregabalin [Lyrica] 50 mg PO TID@1000,1400,2200 09/29/16 07/23/18 History Gabapentin [Neurontin] 900 mg PO HS@2200 12/16/17 07/23/18 History Ibuprofen [Motrin] 800 mg PO TID PRN 12/16/17 07/23/18 History HYDROcodone/APAP 7.5-325MG [[place] 1 tab PO Q6HR PRN #14 tab 12/23/17 07/23/18 Rx 7.5-325] Cholecalciferol (Vitamin D3) 2,000 unit PO DAILY 04/12/18 07/23/18 History [Vitamin D3] Atorvastatin Calcium [Lipitor] 10 mg PO DAILY 06/07/18 07/23/18 History Multivitamin with Iron 1 tab PO DAILY 07/23/18 07/23/18 History [Multivitamins with Iron] amLODIPine [Norvasc] 5 mg PO DAILY 07/23/18 07/23/18 History Allergies Allergy/AdvReac Type Severity Reaction Status Date / Time Sulfa (Sulfonamide Allergy Rash/Hives Verified 07/23/18 16:39 Antibiotics) Physical Exam Vitals: Vital Signs Temp Pulse Pulse Resp BP BP Pulse Ox 07/25/18 20:26 95 07/25/18 13:15 98.3 F 80 110/67 98 07/25/18 12:00 100.0 F H 77 21 125/70 90 L 07/25/18 11:00 78 21 123/62 97 07/25/18 10:00 73 25 H 117/58 98 07/25/18 09:19 97 07/25/18 09:00 71 25 H 101/53 96 07/25/18 08:00 75 17 121/52 94 L 07/25/18 07:00 64 22 116/62 95 07/25/18 06:00 66 23 117/54 93 L 07/25/18 05:00 66 24 111/65 96 07/25/18 04:00 98.1 F 66 17 117/49 90 L 07/25/18 03:00 63 20 108/50 92 L 07/25/18 02:00 68 23 125/57 98 07/25/18 01:00 65 22 114/64 93 L 07/25/18 00:01 98.2 F 67 21 109/49 93 L Intake and Output 07/25/18 07/25/18 07/26/18 14:59 22:59 06:59 Intake Total 1985 Output Total 355 900 Balance 1630 -900 Intake: IV 1525 Piperacillin-Tazobactam 3 25 .375 gm In Sodium Chloride 0.9% 100 ml @ 25 mls/hr IVPB Q8H VENKAT Rx#: [id number] Sodium Chloride 0.9% 1, 1000 000 ml @ 50 mls/hr IV . Q20H VENKAT Rx#:[id number] Vancomycin 2,000 mg In 500 Sodium Chloride 0.9% 500 ml 500 ml @ 167 mls/hr IVPB Q24H VENKAT Rx#: [id number] Oral 460 Output: Urine 355 900 Other: Voiding Method Indwelling Catheter Pleasant 62-year-old woman who has superobesity HEENT: Anicteric conjunctiva are pink and moist nasal mucosa grossly intact without significant lesions, there is no thrush. Neck: The neck is supple without significant lymphadenopathy or thyromegaly. Lungs: Symmetrical air entry with evidence of expiratory wheeze no dullness or egophony Heart is irregular with an audible S1 and S2 soft S4 no murmur click or rub Abdomen: Obese, Positive bowel sounds soft and nontender without palpable masses or organomegaly. There was no guarding or rebound. Extremities: The upper extremities have excellent pulses they are symmetric, no significant petechiae or telangiectasia. No splinter hemorrhages were noted. Lower extremities evidence of the chronic venous stasis and chronic lipedema. There is evidence of the significant ulceration of the left heel. Please see the nursing photography for the documentation of the full-thickness pressure ulceration to the left heel. There is fat layer exposed. It is present at admission and appears to be grossly infected at admission. 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 Neuro: Patient is now awake and alert easily recognizes me by name no new acute gross focal sensory motor deficits, but does have poor memory of the events getting her to Hospital Results CBC & Chem 7: 07/25/18 04:23 07/25/18 04:23 Labs: Abnormal Lab Results - Last 24 Hours (Table) 07/25/18 07/25/18 07/25/18 Range/Units 00:43 04:23 04:23 RBC 2.66 L (3.80-5.40) m/uL Hgb 7.9 L (11.4-16.0) gm/dL Hct 24.4 L (34.0-46.0) % Lymphocytes # 0.6 L (1.0-4.8) k/uL Potassium 3.2 L (3.5-5.1) mmol/L Chloride 116 H (98-107) mmol/L BUN 18 H (7-17) mg/dL Calcium 8.2 L (8.4-10.2) mg/dL Creatine Kinase 2748 H* (30-135) U/L Microbiology - Last 24 Hours (Table) 07/24/18 03:30 Nasal Culture - Preliminary Nasal Swab 07/24/18 01:55 Urine Culture - Preliminary Urine,Catheterized Gram Neg Bacilli 07/24/18 03:14 Blood Culture - Preliminary Blood No Growth after 24 hours 07/24/18 13:00 Gram Stain - Preliminary Foot - Left Wound Culture - Preliminary Laboratory Results WBC 7.9 k/uL (3.8-10.6) 07/25/18 04:23 RBC 2.66 m/uL (3.80-5.40) L 07/25/18 04:23 Hgb 7.9 gm/dL (11.4-16.0) L 07/25/18 04:23 Hct 24.4 % (34.0-46.0) L 07/25/18 04:23 MCV 91.6 fL (80.0-100.0) 07/25/18 04:23 MCH 29.8 pg (25.0-35.0) 07/25/18 04:23 MCHC 32.5 g/dL (31.0-37.0) 07/25/18 04:23 RDW 14.0 % (11.5-15.5) 07/25/18 04:23 Plt Count 235 k/uL (150-450) 07/25/18 04:23 Neutrophils % 84 % 07/25/18 04:23 Lymphocytes % 7 % 07/25/18 04:23 Monocytes % 5 % 07/25/18 04:23 Eosinophils % 1 % 07/25/18 04:23 Basophils % 0 % 07/25/18 04:23 Neutrophils # 6.7 k/uL (1.3-7.7) 07/25/18 04:23 Lymphocytes # 0.6 k/uL (1.0-4.8) L 07/25/18 04:23 Monocytes # 0.4 k/uL (0-1.0) 07/25/18 04:23 Eosinophils # 0.1 k/uL (0-0.7) 07/25/18 04:23 Basophils # 0.0 k/uL (0-0.2) 07/25/18 04:23 Hypochromasia Slight 07/25/18 04:23 Sodium 143 mmol/L (137-145) 07/25/18 04:23 Potassium 3.6 mmol/L (3.5-5.1) 07/25/18 04:23 Chloride 116 mmol/L (98-107) H 07/25/18 04:23 Carbon Dioxide 24 mmol/L (22-30) 07/25/18 04:23 Anion Gap 3 mmol/L 07/25/18 04:23 BUN 18 mg/dL (7-17) H 07/25/18 04:23 Creatinine 0.70 mg/dL (0.52-1.04) 07/25/18 04:23 Est GFR (CKD-EPI)AfAm >90 (>60 ml/min/1.73 sqM) 07/25/18 04:23 Est GFR (CKD-EPI)NonAf >90 (>60 ml/min/1.73 sqM) 07/25/18 04:23 Glucose 85 mg/dL (74-99) 07/25/18 04:23 POC Glucose (mg/dL) 102 mg/dL (75-99) H 07/24/18 22:01 POC Glu Mat Tester MANNY [place]h 07/24/18 22:01 Plasma Lactic Acid Lm 1.1 mmol/L (0.7-2.0) 07/24/18 18:42 Calcium 8.2 mg/dL (8.4-10.2) L 07/25/18 04:23 Magnesium 1.8 mg/dL (1.6-2.3) 07/25/18 00:43 Creatine Kinase 2748 U/L (30-135) H* 07/25/18 04:23 Urine Color Yellow 07/23/18 21:22 Urine Appearance Cloudy (Clear) H 07/23/18 21:22 Urine pH 6.0 (5.0-8.0) 07/23/18 21:22 Ur Specific [place] 1.020 (1.001-1.035) 07/23/18 21:22 Urine Protein 2+ (Negative) H 07/23/18 21:22 Urine Glucose (UA) Negative (Negative) 07/23/18 21:22 Urine Ketones 1+ (Negative) H 07/23/18 21:22 Urine Blood Large (Negative) H 07/23/18 21:22 Urine Nitrite Negative (Negative) 07/23/18 21:22 Urine Bilirubin Negative (Negative) 07/23/18 21:22 Urine Urobilinogen 2.0 mg/dL (<2.0) 07/23/18 21:22 Ur Leukocyte Esterase Negative (Negative) 07/23/18 21:22 Urine RBC 2 /hpf (0-5) 07/23/18 21:22 Urine WBC 9 /hpf (0-5) H 07/23/18 21:22 Ur Squamous Epith Cells 2 /hpf (0-4) 07/23/18 21:22 Urine Bacteria Moderate /hpf (None) H 07/23/18 21:22 Hyaline Casts 10 /lpf (0-2) H 07/23/18 21:22 Urine Mucus Occasional /hpf (None) H 07/23/18 21:22 Influenza Type A RNA Not Detected (Not Detectd) 07/23/18 21:22 Influenza Type B (PCR) Not Detected (Not Detectd) 07/23/18 21:22 Microbiology 07/24/18 03:30 Nasal Swab Nasal Culture - Preliminary 07/24/18 01:55 Urine,Catheterized Urine Culture - Preliminary Gram Neg Bacilli 07/24/18 03:14 Blood Blood Culture - Preliminary No Growth after 24 hours 07/24/18 13:00 Foot - Left Gram Stain - Preliminary 07/24/18 13:00 Foot - Left Wound Culture - Preliminary Assessment and Plan (1) Rhabdomyolysis Current Visit: Yes Status: Acute Code(s): M62.82 - RHABDOMYOLYSIS SNOMED Code(s): 049287993 (2) Ulcer of left heel and midfoot with fat layer exposed Current Visit: No Status: Acute Code(s): L97.422 - NON-PRS CHR ULCER OF LEFT HEEL AND MIDFOOT W FAT LAYER EXPOS SNOMED Code(s): 95697935 (3) Obesity Current Visit: Yes Status: Acute Code(s): E66.9 - OBESITY, UNSPECIFIED SNOMED Code(s): 902085216 (4) UTI (urinary tract infection) Narrative/Plan: 62-year-old woman who has superobesity chronic difficulties with ambulation is developed a marked worsening to the ulceration to her left heel that appears to be pressure in nature. There was robson necrosis and is now been debrided by the surgeon. Antibiotic therapy with vancomycin and Zosyn have been started while cultures are in process. Admission the patient had a marked alteration of her status and that she actually was unresponsive and was awoken by EMS when they entered her apartment. There was evidence of rhabdomyolysis which is improving in fortunately does not have acute renal failure However there is evidence of urinary tract infection and Zosyn should give us coverage based on her prior cultures. Patient likely will need a course of intravenous antibiotic therapy and ongoing local wound care and likely will need to go to rehab to continue her courses of therapy. Dietitian would be helpful to help with her protein intake and ability to improve her wounds. Current Visit: Yes Status: Acute Code(s): N39.0 - URINARY TRACT INFECTION, SITE NOT SPECIFIED SNOMED Code(s): 25105447
[2018-07-26] MEDS: PIPERACILLIN-TAZOBACTAM 3.375 GM in SODIUM CHLORIDE 0.9% 100 ML IVPB SCH ×3 (05:11→16:52)
[2018-07-26] MEDS: HYDROcodone/APAP 7.5-325MG 1 EACH TAB PO PRN ×3 (05:14→21:47)
[2018-07-26] MEDS: LEVOTHYROXINE 100 MCG TAB PO SCH (05:16)
[2018-07-26] MEDS ORDERED: VANCOMYCIN TROUGH DUE 1 EACH MISC MISCELLANE ONE (09:00)
[2018-07-26 09:30] LABS: Basophils % (A) 0 %; Eosinophils # (A) 0.1 k/uL (0-0.7); Eosinophils % (A) 2 %; HGB 8.6 gm/dL (11.4-16.0); Lymphocytes # (A) 0.8 k/uL (1.0-4.8); Lymphocytes % (A) 9 %; MCH 29.9 pg (25.0-35.0); MCV 90.5 fL (80.0-100.0); Mean Platelet Volume 9.1; Monocytes # (A) 0.4 k/uL (0-1.0); Monocytes % (A) 5 %; Neutrophils # (A) 7.7 k/uL (1.3-7.7); Neutrophils % (A) 82 %; Platelet Count 279 k/uL (150-450); Poikilocytosis Slight; RBC 2.87 m/uL (3.80-5.40); RDW 14.4 % (11.5-15.5); WBC 9.4 k/uL (3.8-10.6)
[2018-07-26] MEDS: MIDODRINE 5 MG TAB PO SCH ×3 (09:37→16:55)
[2018-07-26] MEDS: PREGABALIN 50 MG CAP PO SCH ×3 (09:38→21:41)
[2018-07-26] MEDS: MULTIVITAMINS, THERA 1 EACH TAB PO SCH (09:38)
[2018-07-26] MEDS: GABAPENTIN 300 MG CAP PO SCH ×3 (09:38→21:41)
[2018-07-26] MEDS: CHOLECALCIFEROL 1,000 UNIT TAB PO SCH (09:39)
[2018-07-26] MEDS: HEPARIN SODIUM,PORCINE 5,000 UNIT/ML 1 ML VIAL SQ SCH ×2 (09:39→21:40)
[2018-07-26] MEDS: PANTOPRAZOLE 40 MG/10 ML VIAL IV SCH (09:39)
[2018-07-26] MEDS: IPRATROPIUM-ALBUTEROL 3 ML NEB INHALATION SCH ×3 (09:47→20:00)
[2018-07-26 10:00] LABS: Anion Gap 4 mmol/L; Blood Urea Nitrogen 12 mg/dL (7-17); Calcium 8.5 mg/dL (8.4-10.2); Carbon Dioxide 24 mmol/L (22-30); Chloride 114 mmol/L (98-107); Glucose 85 mg/dL (74-99); Magnesium 2.1 mg/dL (1.6-2.3); Sodium 142 mmol/L (137-145)
[2018-07-26 10:02] LABS: Creatine Kinase 1030 U/L (30-135)
[2018-07-26] MEDS ORDERED: FUROSEMIDE 10 MG/ML 2 ML VIAL IV ONE (12:19)
[2018-07-26] MEDS: VANCOMYCIN 2,500 MG in SODIUM CHLORIDE 0.9% 500 ML 500 ML IVPB SCH ×2 (13:01→19:55)
[2018-07-26] MEDS: SODIUM CHLORIDE 0.9% 1,000 ML IV SCH (13:57)
--- NOTE | 2018-07-26 17:57 | PN ---
PROGRESS NOTE Patient is seen for followup for acute kidney injury. Her renal function has improved. Creatinine is down to 0.6 mg/dL. Patient was admitted with rhabdomyolysis. The CK levels have decreased from around 12,000 to 1030. Patient is maintained on IV fluids. Her blood pressure was low and therefore she was started on midodrine. Currently patient is complaining of increased lower extremity edema. She denies significant chest pains or shortness of breath. On examination, blood pressure is 125/73, heart rate 75 per minute. Patient is afebrile. EXAMINATION OF THE HEART: S1 and S2. EXAMINATION OF LUNGS: Bilateral breath sounds are heard. Decreased breath sounds at the bases. ABDOMEN: Soft, obese, non-tender. Examination of lower extremities shows edema 2+ bilaterally. Left lower extremity is wrapped. Labs show sodium 142, potassium 4.0, serum creatinine 0.64, hemoglobin 8.6 g/dL. ASSESSMENT: 1. Acute kidney injury, acute tubular necrosis, currently improved. 2. Volume overload. I will discontinue the IV fluids and I will increase the midodrine if blood pressure remains low. At this time it looks like her blood pressure has improved. 3. Rhabdomyolysis, slowly improved. 4. Left heel ulcer and cellulitis, maintained on antibiotics, being followed by Infectious Disease. 5. Hypotension, currently improved, maintained on midodrine. PLAN: Continue with the midodrine. Discontinue IV fluids. I will give Lasix x1 and we will repeat labs in a.m. Avoid nephrotoxic agents. Vancomycin has been discontinued. MMODL / IJN: [id number] /
--- NOTE | 2018-07-26 18:48 | PN ---
PROGRESS NOTE DATE OF SERVICE: 07/26/2018 This 62-year-old woman who was admitted with a chronic left heel ulcer had an acute component, also. The patient had significant infection and sepsis also. E coli was grown from the urine. Has got multiple antibiotic also. Past medical history reviewed. REVIEW OF SYSTEMS: CARDIOVASCULAR SYSTEM: No angina, palpitations. RESPIRATORY SYSTEM: As mentioned earlier. GI: As mentioned earlier. : No dysuria or retention. NERVOUS SYSTEM: No numbness, weakness. CURRENT MEDICATIONS: Reviewed. They include: 1. Tylenol 650 q.6 p.r.n. 2. [place] 7.5 q.6 p.r.n. 3. Ventolin 2.5 q.i.d. p.r.n. 4. DuoNeb q.i.d. and p.r.n. 5. Xanax 0.25 t.i.d. 6. Vitamin D3 2000 daily. 7. Neurontin. 8. Heparin 5000 units subcutaneously b.i.d. 9. Dilaudid 0.5 q.6 p.r.n. 10.Synthroid 100 mcg p.o. daily. 11.ProAmatine. 12.Multivitamins 1 p.o. daily. 13.Narcan. 14.Zofran. 15.Protonix 40 mg daily. 16.Lyrica. 17.Restoril. 18.Vancomycin 2.5 grams. PHYSICAL EXAMINATION: Patient is alert, oriented x3. Pulse 75, blood pressure 125/73, respiration 16, temperature 98.2, pulse ox 93% on room air. HEENT: Conjunctivae normal. NECK: No jugular venous distention. CARDIOVASCULAR SYSTEM: S1, S2 muffled. RESPIRATORY SYSTEM: Breath sounds diminished at the bases. Bilateral scattered rhonchi and crackles. ABDOMEN: Soft, non-tender. LEGS: Unchanged. NERVOUS SYSTEM: No focal deficit. LABS: WBC 9.4, hemoglobin 8.6. Sodium 142. CK is 1030. Vancomycin 27.3. ASSESSMENT: 1. Acute on chronic left heel ulcer with osteomyelitis, possibly, with severe sepsis, present on admission. 2. Hypotension with possible septic shock and severe sepsis. Monitor closely in ICU with multiple fluid boluses. 3. Change in mental status, acute metabolic encephalopathy, possibly secondary to sepsis. 4. Diarrhea. Rule out C difficile colitis. 5.increased white count. 6. Acute rhabdomyolysis. 7. Acute renal failure secondary from rhabdomyolysis and prerenal factors and acute tubular necrosis. 8. Hypokalemia. 9. Morbid obesity. 10.Hypertension. 11.Degenerative joint disease. 12.History of hypothyroidism. 13.History of urinary tract infection. 14.History of methicillin-resistant Staphylococcus aeruginosa. 15.Resistant Escherichia coli urinary tract infection. 16.FULL CODE. RECOMMENDATIONS AND DISCUSSION: I recommend to continue current medications, continue with the monitoring, symptomatic treatment. The most recent chest x-ray was reviewed personally by me. It showed some evidence of minimal fluid overload with prominent bronchovascular markings. The patient has received one dose of Lasix, which was repeated today also. Otherwise, continue with the bronchodilators and we will monitor the patient closely with multiple consultants. DVT prophylaxis. Continue the symptomatic treatment. Broad- spectrum IV antibiotics. As mentioned earlier, urine culture showed E coli. Infectious Disease is also following the patient closely. Guarded prognosis. Further recommendations to follow. We will follow the patient closely with Dr. Danielson. The left wound after debridement shows some evidence of vascularity, also. MMODL / IJN: [id number] / MTDHugo
[2018-07-26] MEDS: SILVER GEL 44.4 APPLIC/44.4 ML TUBE TOPICAL SCH (19:21)
[2018-07-27] MEDS: PIPERACILLIN-TAZOBACTAM 3.375 GM in SODIUM CHLORIDE 0.9% 100 ML IVPB SCH ×3 (00:37→16:55)
[2018-07-27] MEDS: VANCOMYCIN 2,500 MG in SODIUM CHLORIDE 0.9% 500 ML 500 ML IVPB SCH ×2 (05:00→22:11)
[2018-07-27] MEDS: LEVOTHYROXINE 100 MCG TAB PO SCH (05:03)
[2018-07-27] MEDS: HYDROcodone/APAP 7.5-325MG 1 EACH TAB PO PRN ×3 (05:08→17:00)
[2018-07-27] MEDS: IPRATROPIUM-ALBUTEROL 3 ML NEB INHALATION SCH ×3 (07:50→19:31)
[2018-07-27] MEDS: PREGABALIN 50 MG CAP PO SCH ×3 (08:46→22:11)
[2018-07-27] MEDS: MIDODRINE 5 MG TAB PO SCH ×3 (08:46→16:55)
[2018-07-27] MEDS: HEPARIN SODIUM,PORCINE 5,000 UNIT/ML 1 ML VIAL SQ SCH ×2 (08:46→22:11)
[2018-07-27] MEDS: CHOLECALCIFEROL 1,000 UNIT TAB PO SCH (08:46)
[2018-07-27] MEDS: GABAPENTIN 300 MG CAP PO SCH ×3 (08:47→22:11)
[2018-07-27] MEDS: PANTOPRAZOLE 40 MG TABLET PO SCH (08:49)
[2018-07-27 09:07] LABS: HCT 25.4 % (34.0-46.0); HGB 8.4 gm/dL (11.4-16.0); MCH 29.5 pg (25.0-35.0); MCHC 32.9 g/dL (31.0-37.0); MCV 89.9 fL (80.0-100.0); Mean Platelet Volume 8.5; Platelet Count 273 k/uL (150-450); RBC 2.83 m/uL (3.80-5.40); RDW 14.6 % (11.5-15.5); WBC 9.1 k/uL (3.8-10.6)
[2018-07-27 09:12] LABS: Anion Gap 5 mmol/L; Blood Urea Nitrogen 10 mg/dL (7-17); Calcium 8.4 mg/dL (8.4-10.2); Carbon Dioxide 25 mmol/L (22-30); Chloride 110 mmol/L (98-107); Creatine Kinase 399 U/L (30-135); Glucose 94 mg/dL (74-99); Potassium 3.7 mmol/L (3.5-5.1); Sodium 140 mmol/L (137-145)
[2018-07-27 11:02] LABS: Band Neutrophils % 3 %; Eosinophils # (M) 0.09 k/uL (0-0.7); Lymphocytes # (M) 1.18 k/uL (1.0-4.8); Metamyelocytes # (M) 0.09 k/uL (0); Metamyelocytes % 1 %; Monocytes # (M) 0.46 k/uL (0-1.0); Myelocytes # (M) 0.09 k/uL (0); Myelocytes % 1 %; Neutrophils % (M) 77 %; Nucleated Red Blood Cells 0 /100 WBC (0-0); Total Cells Counted 200
[2018-07-27 11:04] LABS: Toxic Granulation Present
[2018-07-27] MEDS ORDERED: FUROSEMIDE 10 MG/ML 4 ML VIAL IV STA (11:06)
[2018-07-27] MEDS: SILVER GEL 44.4 APPLIC/44.4 ML TUBE TOPICAL SCH (11:07)
[2018-07-27] MEDS: MULTIVITAMINS, THERA 1 EACH TAB PO SCH (14:08)
--- NOTE | 2018-07-27 20:31 | PN ---
PROGRESS NOTE DATE OF SERVICE: 07/27/2018. This 63-year-old woman who was admitted with significant ulcerations of the foot also has rhabdomyolysis. The patient had a bedside debridement. Patient also had features of sepsis. Patient received a significant amount of IV fluids. The patient was also having features of fluid overload, but after diuretics, the patient is feeling much better at this time. PAST MEDICAL HISTORY: Reviewed. PHYSICAL EXAM: Patient is alert, oriented x3. The pulse is 69, blood pressure is 130/74, respiration 16, temperature 98.2. Pulse ox 94% on room air. HEENT: Conjunctivae normal. NECK: No jugular venous distention. CARDIOVASCULAR: S1, S2 muffled. RESPIRATORY: Breath sounds diminished in the bases. A few scattered rhonchi and crackles. Abdomen is soft, nontender. Legs status post surgery. CENTRAL NERVOUS SYSTEM: No focal deficits. LAB STUDIES: WBC 11.1, hemoglobin is 8.4, otherwise creatinine kinase is 399. ASSESSMENT: 1. Acute on chronic left heel ulcer with osteomyelitis possible severe sepsis, present on admission. 2. Hypotension with possible septic shock and severe sepsis. Monitor closely in ICU with multiple fluid boluses. 3. Change in mental status and metabolic encephalopathy possibly secondary to sepsis, acute. 4. Diarrhea. C difficile ruled out. 5. Increased WBC. 6. Acute rhabdomyolysis. 7. Acute renal failure secondary to rhabdomyolysis and with prerenal factors acute tubular necrosis. 8. Hypokalemia. 9. Morbid obesity. 10.Hypertension. 11.History of degenerative joint disease. 12.History of hypothyroidism. 13.History of urinary tract infection. 14.History of MRSA. 15.History of resistant E coli urinary tract infection. 16.FULL CODE. RECOMMENDATIONS AND DISCUSSION: Continue current medications, continue with monitoring, management continue the antibiotics. Currently the patient is IV Zosyn. The cultures are noted. Otherwise guarded prognosis because of multiple complex medical issues. Further recommendations to follow. MMODL / IJN: [id number] /
--- NOTE | 2018-07-27 21:22 | P.PN ---
Subjective Progress Note Date: 07/27/18 62 -year-old woman who is known to the service where she has had difficulties with lower extremity ulcerations and bouts of sepsis in the past. His related that she's been following in the wound healing center with a vascular surgeon. Apparently she was brought to Hospital by EMS because of very poor mental status and what appears to be evidence of unresponsiveness. The. There were difficulties with the home setting also at the time of the transportation to the hospital. She is now admitted and there was evidence of the rhabdomyolysis before she is not having significant renal failure. She is feeling very poorly overall. It is noted at the ulceration had markedly worsened and was frankly ne crotic and follow-up. She's been seen by her vascular surgeon and bedside debridement has occurred and there was some bleeding at the site. She feels very poorly overall. 07/27/2018 patient is feeling somewhat better but still having severe weakness and malaise since her admission. Does not have specific areas of muscle tenderness just has generalized weakness. She feels poorly overall. Appetite is poor which is somewhat unusual for her but she is not having nausea or emesis. Pain control has been problematic better this evening Objective - Vital Signs Vital signs: Vital Signs Temp 98.2 F 07/27/18 19:14 Pulse 74 07/27/18 19:14 Resp 16 07/27/18 19:14 BP 130/73 07/27/18 19:14 Pulse Ox 92 L 07/27/18 19:14 Intake & Output 07/27/18 07/27/18 07/28/18 06:59 18:59 06:59 Intake Total 100 296 Output Total 2400 1550 Balance -2300 -1254 Intake: Intake, IV Titration 100 Amount Piperacillin-Tazobactam 3 100 .375 gm In Sodium Chloride 0.9% 100 ml @ 25 mls/hr IVPB Q8H [facility] Rx#: [id number] Oral 296 Output: Urine 2400 1550 Uretheral (Cobos) 1550 Other: Voiding Method Indwelling Catheter Indwelling Catheter # Bowel Movements 1 - Exam Pleasant 62-year-old woman who has superobesity HEENT: Anicteric conjunctiva are pink and moist nasal mucosa grossly intact without significant lesions, there is no thrush. Neck: The neck is supple without significant lymphadenopathy or thyromegaly. Lungs: Symmetrical air entry with evidence of expiratory wheeze no dullness or egophony Heart is irregular with an audible S1 and S2 soft S4 no murmur click or rub Abdomen: Obese, Positive bowel sounds soft and nontender without palpable masses or organomegaly. There was no guarding or rebound. Extremities: The upper extremities have excellent pulses they are symmetric, no significant petechiae or telangiectasia. No splinter hemorrhages were noted. Lower extremities evidence of the chronic venous stasis and chronic lipedema. There is evidence of the significant ulceration of the left heel. Please see the nursing photography for the documentation of the full-thickness pressure ulceration to the left heel. There is fat layer exposed. It is present at ad mission and appears to be grossly infected at admission. 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 Neuro: Patient is now awake and alert easily recognizes me by name no new acute gross focal sensory motor deficits, but does have poor memory of the events getting her to Hospital - Labs CBC & Chem 7: 07/27/18 08:31 07/27/18 08:31 Labs: Abnormal Lab Results - Last 24 Hours (Table) 07/27/18 07/27/18 Range/Units 08:31 08:31 RBC 2.83 L (3.80-5.40) m/uL Hgb 8.4 L (11.4-16.0) gm/dL Hct 25.4 L (34.0-46.0) % Metamyelocytes # (Man) 0.09 H (0) k/uL Myelocytes # (Manual) 0.09 H (0) k/uL Chloride 110 H (98-107) mmol/L Creatine Kinase 399 H (30-135) U/L Microbiology - Last 24 Hours (Table) 07/24/18 13:00 Gram Stain - Final Foot - Left Wound Culture - Final Staphylococcus aureus 07/24/18 03:14 Blood Culture - Preliminary Blood No Growth after 72 hours Laboratory Results WBC 9.1 k/uL (3.8-10.6) 07/27/18 08:31 RBC 2.83 m/uL (3.80-5.40) L 07/27/18 08:31 Hgb 8.4 gm/dL (11.4-16.0) L 07/27/18 08:31 Hct 25.4 % (34.0-46.0) L 07/27/18 08:31 MCV 89.9 fL (80.0-100.0) 07/27/18 08:31 MCH 29.5 pg (25.0-35.0) 07/27/18 08:31 MCHC 32.9 g/dL (31.0-37.0) 07/27/18 08:31 RDW 14.6 % (11.5-15.5) 07/27/18 08:31 Plt Count 273 k/uL (150-450) 07/27/18 08:31 Neutrophils % 82 % 07/26/18 07:39 Neutrophils % (Manual) 77 % 07/27/18 08:31 Band Neutrophils % 3 % 07/27/18 08:31 Lymphocytes % 9 % 07/26/18 07:39 Lymphocytes % (Manual) 13 % 07/27/18 08:31 Monocytes % 5 % 07/26/18 07:39 Monocytes % (Manual) 5 % 07/27/18 08:31 Eosinophils % 2 % 07/26/18 07:39 Eosinophils % (Manual) 1 % 07/27/18 08:31 Basophils % 0 % 07/26/18 07:39 Metamyelocytes % 1 % 07/27/18 08:31 Myelocytes % 1 % 07/27/18 08:31 Neutrophils # 7.7 k/uL (1.3-7.7) 07/26/18 07:39 Neutrophils # (Manual) 7.20 k/uL (1.3-7.7) 07/27/18 08:31 Lymphocytes # 0.8 k/uL (1.0-4.8) L 07/26/18 07:39 Lymphocytes # (Manual) 1.18 k/uL (1.0-4.8) 07/27/18 08:31 Monocytes # 0.4 k/uL (0-1.0) 07/26/18 07:39 Monocytes # (Manual) 0.46 k/uL (0-1.0) 07/27/18 08:31 Eosinophils # 0.1 k/uL (0-0.7) 07/26/18 07:39 Eosinophils # (Manual) 0.09 k/uL (0-0.7) 07/27/18 08:31 Basophils # 0.0 k/uL (0-0.2) 07/26/18 07:39 Metamyelocytes # (Man) 0.09 k/uL (0) H 07/27/18 08:31 Myelocytes # (Manual) 0.09 k/uL (0) H 07/27/18 08:31 Nucleated RBCs 0 /100 WBC (0-0) 07/27/18 08:31 Manual Slide Review Performed 07/27/18 08:31 Toxic Granulation Present 07/27/18 08:31 RBC Morphology Normal 07/27/18 08:31 Hypochromasia Slight 07/25/18 04:23 Poikilocytosis Slight 07/26/18 07:39 Sodium 140 mmol/L (137-145) 07/27/18 08:31 Potassium 3.7 mmol/L (3.5-5.1) 07/27/18 08:31 Chloride 110 mmol/L (98-107) H 07/27/18 08:31 Carbon Dioxide 25 mmol/L (22-30) 07/27/18 08:31 Anion Gap 5 mmol/L 07/27/18 08:31 BUN 10 mg/dL (7-17) 07/27/18 08:31 Creatinine 0.64 mg/dL (0.52-1.04) 07/27/18 08:31 Est GFR (CKD-EPI)AfAm >90 (>60 ml/min/1.73 sqM) 07/27/18 08:31 Est GFR (CKD-EPI)NonAf >90 (>60 ml/min/1.73 sqM) 07/27/18 08:31 Glucose 94 mg/dL (74-99) 07/27/18 08:31 POC Glucose (mg/dL) 102 mg/dL (75-99) H 07/24/18 22:01 POC Glu Ethanol Operator ID Jh Jeronimo 07/24/18 22:01 Plasma Lactic Acid Lm 1.1 mmol/L (0.7-2.0) 07/24/18 18:42 Calcium 8.4 mg/dL (8.4-10.2) 07/27/18 08:31 Magnesium 2.1 mg/dL (1.6-2.3) 07/26/18 07:39 Creatine Kinase 399 U/L (30-135) H 07/27/18 08:31 Urine Color Yellow 07/23/18 21:22 Urine Appearance Cloudy (Clear) H 07/23/18 21:22 Urine pH 6.0 (5.0-8.0) 07/23/18 21:22 Ur Specific [place] 1.020 (1.001-1.035) 07/23/18 21:22 Urine Protein 2+ (Negative) H 07/23/18 21:22 Urine Glucose (UA) Negative (Negative) 07/23/18 21:22 Urine Ketones 1+ (Negative) H 07/23/18 21:22 Urine Blood Large (Negative) H 07/23/18 21:22 Urine Nitrite Negative (Negative) 07/23/18 21: Urine Bilirubin Negative (Negative) 07/23/18 21:22 Urine Urobilinogen 2.0 mg/dL (<2.0) 07/23/18 21:22 Ur Leukocyte Esterase Negative (Negative) 07/23/18 21:22 Urine RBC 2 /hpf (0-5) 07/23/18 21:22 Urine WBC 9 /hpf (0-5) H 07/23/18 21:22 Ur Squamous Epith Cells 2 /hpf (0-4) 07/23/18 21:22 Urine Bacteria Moderate /hpf (None) H 07/23/18 21:22 Hyaline Casts 10 /lpf (0-2) H 07/23/18 21:22 Urine Mucus Occasional /hpf (None) H 07/23/18 21:22 Vancomycin Trough 27.3 ug/mL 07/26/18 07:39 Influenza Type A RNA Not Detected (Not Detectd) 07/23/18 21:22 Influenza Type B (PCR) Not Detected (Not Detectd) 07/23/18 21:22 Microbiology 07/24/18 13:00 Foot - Left Gram Stain - Final 07/24/18 13:00 Foot - Left Wound Culture - Final Staphylococcus aureus 07/24/18 03:14 Blood Blood Culture - Preliminary No Growth after 72 hours 07/24/18 01:55 Urine,Catheterized Urine Culture - Final Escherichia coli 07/24/18 03:30 Nasal Swab Nasal Culture - Final Assessment and Plan (1) Rhabdomyolysis Current Visit: Yes Status: Acute Code(s): M62.82 - RHABDOMYOLYSIS SNOMED Code(s): 325370359 (2) Ulcer of left heel and midfoot with fat layer exposed Current Visit: No Status: Acute Code(s): L97.422 - NON-PRS CHR ULCER OF LEFT HEEL AND MIDFOOT W FAT LAYER EXPOS SNOMED Code(s): 39166828 (3) Obesity Current Visit: Yes Status: Acute Code(s): E66.9 - OBESITY, UNSPECIFIED SN OMED Code(s): 165645102 (4) UTI (urinary tract infection) Narrative/Plan: 62-year-old woman who has superobesity chronic difficulties with ambulation is developed a marked worsening to the ulceration to her left heel that appears to be pressure in nature. There was robson necrosis and is now been debrided by the surgeon. Antibiotic therapy with vancomycin and Zosyn have been started while cultures are in process. Admission the patient had a marked alteration of her status and that she actually was unresponsive and was awoken by EMS when they entered her apartment. There was evidence of rhabdomyolysis which is improving in fortunately does not have acute renal failure However there is evidence of urinary tract infection and Zosyn should give us coverage based on her prior cultures. Patient likely will need a course of intravenous antibiotic therapy and ongoing local wound care and likely will need to go to rehab to continue her courses of therapy. Dietitian would be helpful to help with her protein intake and ability to improve her wounds. 07/27/2018 patient still feels poorly. So has significant weakness. This tolerated and current antibiotic therapy well with Zosyn. Local wound care is continuing and she has no new complaints. Appetite somewhat poor for her, attempting to improve her protein intake. It appears that rehabilitation placement is in process. Current Visit: Yes Status: Acute Code(s): N39.0 - URINARY TRACT INFECTION, SITE NOT SPECIFIED SNOMED Code(s): 22907964
--- NOTE | 2018-07-27 21:46 | PN ---
PROGRESS NOTE Patient is seen for followup for rhabdomyolysis, volume overload and acute kidney injury. Renal function has improved. CK level is down to 399 now. IV fluids were discontinued yesterday and patient received a dose of IV Lasix yesterday. She states her swelling is somewhat improved. She is not complaining of any shortness of breath. On examination this morning, blood pressure was 131/74, heart rate 69 per minute. Patient is afebrile. EXAMINATION OF THE HEART: S1 and S2. EXAMINATION OF LUNGS: Bilateral breath sounds are heard. ABDOMEN: Soft, non-tender, obese. Examination of lower extremities shows left lower extremity currently wrapped. Significant chronic skin changes and chronic edema noted on the right lower extremity. RESTORATIVE AIDE exam is grossly intact. Patient is moving all 4 extremities. Labs show hemoglobin 8.4. Sodium 140, potassium 3.7, serum creatinine 0.6. CK is down to 399. ASSESSMENT: 1. Acute kidney injury secondary to rhabdomyolysis and volume depletion, currently improved. 2. Volume overload, status post Lasix yesterday. We will repeat another dose of IV Lasix today and I will start her on daily diuretics as well. 3. Rhabdomyolysis, now improved. 4. Cellulitis, lower extremity, with wound culture growing Staphylococcus aureus. 5. Urinary tract infection with urine culture growing Escherichia coli. PLAN: Repeat IV Lasix. Patient will likely need daily Lasix and we can maintain her on oral diuretics upon discharge. MMODL / IJN: [id number] /
[2018-07-28] MEDS: PIPERACILLIN-TAZOBACTAM 3.375 GM in SODIUM CHLORIDE 0.9% 100 ML IVPB SCH ×3 (00:16→17:51)
[2018-07-28] MEDS: HYDROcodone/APAP 7.5-325MG 1 EACH TAB PO PRN ×3 (00:19→16:53)
[2018-07-28] MEDS: LEVOTHYROXINE 100 MCG TAB PO SCH (05:29)
[2018-07-28 08:30] LABS: Basophils % (A) 0 %; Eosinophils # (A) 0.1 k/uL (0-0.7); Eosinophils % (A) 1 %; HGB 8.8 gm/dL (11.4-16.0); Lymphocytes # (A) 0.8 k/uL (1.0-4.8); Lymphocytes % (A) 9 %; MCH 29.8 pg (25.0-35.0); MCHC 32.6 g/dL (31.0-37.0); MCV 91.3 fL (80.0-100.0); Mean Platelet Volume 7.9; Monocytes # (A) 0.4 k/uL (0-1.0); Monocytes % (A) 5 %; Neutrophils % (A) 82 %; Platelet Count 271 k/uL (150-450); RBC 2.96 m/uL (3.80-5.40); RDW 14.5 % (11.5-15.5); WBC 8.6 k/uL (3.8-10.6)
[2018-07-28 08:47] LABS: Anion Gap 3 mmol/L; Blood Urea Nitrogen 11 mg/dL (7-17); Calcium 8.7 mg/dL (8.4-10.2); Carbon Dioxide 27 mmol/L (22-30); Chloride 109 mmol/L (98-107); Creatine Kinase 175 U/L (30-135); Glucose 90 mg/dL (74-99); Potassium 3.9 mmol/L (3.5-5.1); Sodium 139 mmol/L (137-145)
[2018-07-28] MEDS: IPRATROPIUM-ALBUTEROL 3 ML NEB INHALATION SCH ×3 (09:45→19:16)
[2018-07-28] MEDS: GABAPENTIN 300 MG CAP PO SCH ×3 (10:02→23:20)
[2018-07-28] MEDS: MIDODRINE 5 MG TAB PO SCH ×3 (10:02→16:53)
[2018-07-28] MEDS: CHOLECALCIFEROL 1,000 UNIT TAB PO SCH (10:02)
[2018-07-28] MEDS: PANTOPRAZOLE 40 MG TABLET PO SCH (10:02)
[2018-07-28] MEDS: PREGABALIN 50 MG CAP PO SCH ×3 (10:03→23:21)
[2018-07-28] MEDS: HEPARIN SODIUM,PORCINE 5,000 UNIT/ML 1 ML VIAL SQ SCH ×2 (10:04→23:20)
[2018-07-28] MEDS: SILVER GEL 44.4 APPLIC/44.4 ML TUBE TOPICAL SCH (13:18)
[2018-07-28] MEDS: MULTIVITAMINS, THERA 1 EACH TAB PO SCH (13:34)
[2018-07-28 13:50] LABS: INR 0.9 (<1.2)
[2018-07-28 13:51] LABS: Prothrombin Time 9.8 sec (9.0-12.0)
[2018-07-28 14:34] VITALS: BMI 57.2
[2018-07-28] MEDS: FUROSEMIDE 10 MG/ML 4 ML VIAL IV SCH ×2 (14:36→23:20)
[2018-07-28] MEDS: VANCOMYCIN 2,500 MG in SODIUM CHLORIDE 0.9% 500 ML 500 ML IVPB SCH (15:29)
--- NOTE | 2018-07-28 18:11 | PN ---
PROGRESS NOTE DATE OF SERVICE: 07/28/2018 This 63-year-old woman who was admitted with multiple medical problems, including significant ulcerations and rhabdomyolysis and sepsis, is being closely monitored. No chest pain. No palpitations. PICC line and outpatient antibiotics. ECF rehab is being planned. On exam, alert and oriented x3. Pulse 68, blood pressure 134/70, respiration 20, temperature 98.4, pulse ox 92% on 2 L. HEENT: Conjunctivae normal. Oral mucosa moist. NECK: No jugular venous distention. No carotid bruit. No lymph node enlargement. CARDIOVASCULAR SYSTEM: S1, S2 muffled. RESPIRATORY SYSTEM: Breath sounds diminished at the bases. A few scattered rhonchi. ABDOMEN: Soft, non-tender. LEGS: Ulceration present. NERVOUS SYSTEM: No focal deficit. LABS: WBC 8.6, hemoglobin 8.8. ASSESSMENT: 1. Acute on chronic left heel ulcer with osteomyelitis with possible severe sepsis, present on admission, status post bedside debridement. 2. Hypotension with possible sepsis, septic shock and severe sepsis. Monitor closely in the ICU with multiple fluid boluses. 3. Change in mental status, metabolic encephalopathy, possibly secondary to sepsis, acute. 4. Diarrhea. C difficile ruled out. 5. Increased white count. 6. Acute rhabdomyolysis. 7. Acute renal failure secondary to rhabdomyolysis with prerenal factors, acute tubular necrosis. 8. Hypokalemia. 9. Morbid obesity. 10.Hypertension. 11.History of degenerative joint disease. 12.History of hypothyroidism. 13.History of urinary tract infection. 14.History of methicillin-resistant Staphylococcus aeruginosa. 15.History of resistant Escherichia coli urinary tract infection. 16.FULL CODE. RECOMMENDATIONS AND DISCUSSION: I recommend to continue current medications, continue with the monitoring, symptomatic treatment. PT/OT evaluation. The CK has normalized at this time. The patient is still on IV diuretics. We will continue to monitor. PT/OT evaluation. Further recommendations to follow. MMODL / IJN: [id number] /
--- NOTE | 2018-07-28 19:53 | PN ---
PROGRESS NOTE The patient is seen for followup for rhabdomyolysis. She currently is volume overloaded and has been receiving Lasix IV. The patient states she does not feel significantly improved in terms of the swelling. Her renal function has significantly improved with creatinine now staying at 0.6 mg/dL. CK level is down to 175. The patient is off of IV fluids and she has had fair oral intake. She remains with an indwelling catheter. PHYSICAL EXAMINATION: Blood pressure this morning was 134/71, heart rate of 75 per minute. Patient is afebrile. Examination of the heart S1, S2. Examination of lungs bilateral breath sounds are heard. Abdomen is soft, morbidly obese. Examination of lower extremities shows left leg is wrapped. Chronic skin changes and chronic edema noted on the right lower extremity. A significant scaly skin is noted as well. LABS SHOW: Sodium 139, potassium 3.9, serum creatinine 0.62. CK is 175. ASSESSMENT: 1. Acute kidney injury and prerenal and secondary to rhabdomyolysis, currently improved. 2. Volume overload, maintained on IV Lasix. Patient received a dose yesterday. I will repeat another dose and maintain on twice a day dosing of IV Lasix. We can discontinue the Cobos catheter from nephrology standpoint. 3. Rhabdomyolysis, now resolved. 4. Left lower extremity cellulitis with wound culture growing Staph aureus. 5. Urinary tract infection with Escherichia coli. PLAN: Maintain patient on b.i.d. dosing of IV Lasix. Check weight in a.m. MMVASILIYL / IJN: [id number] /
--- NOTE | 2018-07-29 00:35 | P.PN ---
Subjective Progress Note Date: 07/28/18 62 -year-old woman who is known to the service where she has had difficulties with lower extremity ulcerations and bouts of sepsis in the past. His related that she's been following in the wound healing center with a vascular surgeon. Apparently she was brought to Hospital by EMS because of very poor mental status and what appears to be evidence of unresponsiveness. The. There were difficulties with the home setting also at the time of the transportation to the hospital. She is now admitted and there was evidence of the rhabdomyolysis before she is not having significant renal failure. She is feeling very poorly overall. It is noted at the ulceration had markedly worsened and was frankly ne crotic and follow-up. She's been seen by her vascular surgeon and bedside debridement has occurred and there was some bleeding at the site. She feels very poorly overall. 07/27/2018 patient is feeling somewhat better but still having severe weakness and malaise since her admission. Does not have specific areas of muscle tenderness just has generalized weakness. She feels poorly overall. Appetite is poor which is somewhat unusual for her but she is not having nausea or emesis. Pain control has been problematic better this evening 07/28/2018 patient is feeling somewhat better but still has generalized weakness. She is denying acute no difficulties fevers or chills. Appetite remains poor. They're working on transition to the extended care facility and request for antibiotic therapy. Objective - Vital Signs Vital signs: Vital Signs Temp 97.9 F 07/28/18 19:24 Pulse 71 07/28/18 19:24 Resp 16 07/28/18 19:24 BP 121/70 07/28/18 19:24 Pulse Ox 95 07/28/18 19:24 Intake & Output 07/28/18 07/28/18 07/29/18 06:59 18:59 06:59 Intake Total 497 Output Total 950 1999 Balance -950 1503 Weight 170.6 kg Intake: IV 260 Piperacillin-Tazobactam 3 100 .375 gm In Sodium Chloride 0.9% 100 ml @ 25 mls/hr IVPB Q8H VENKAT Rx#: [id number] Sodium Chloride 0.9% 1, 160 000 ml @ 50 mls/hr IV . Q20H VENKAT Rx#:[id number] Oral 237 Output: Urine 950 1999 Uretheral (Cobos) 1999 Other: Voiding Method Indwelling Catheter Indwelling Catheter - Exam Pleasant 62-year-old woman who has superobesity HEENT: Anicteric conjunctiva are pink and moist nasal mucosa grossly intact without significant lesions, there is no thrush. Neck: The neck is supple without significant lymphadenopathy or thyromegaly. Lungs: Symmetrical air entry with evidence of expiratory wheeze no dullness or egophony Heart is irregular with an audible S1 and S2 soft S4 no murmur click or rub Abdomen: Obese, Positive bowel sounds soft and nontender without palpable masses or organomegaly. There was no guarding or rebound. Extremities: The upper extremities have excellent pulses they are symmetric, no significant petechiae or telangiectasia. No splinter hemorrhages were noted. Lower extremities evidence of the chronic venous stasis and chronic lipedema. There is evidence of the significant ulceration of the left heel. Please see the nursing photography for the documentation of the full-thickness pressure ulceration to the left heel. There is fat layer exposed. It is present at admission and appears to be grossly infected at admission. 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 Neuro: Patient is now awake and alert easily recognizes me by name no new acute gross focal sensory motor deficits, but does have poor memory of the events getting her to Hospital - Labs CBC & Chem 7: 07/28/18 07:46 07/28/18 07:46 Labs: Abnormal Lab Results - Last 24 Hours (Table) 07/28/18 07/28/18 Range/Units 07:46 07:46 RBC 2.96 L (3.80-5.40) m/uL Hgb 8.8 L (11.4-16.0) gm/dL Hct 27.0 L (34.0-46.0) % Lymphocytes # 0.8 L (1.0-4.8) k/uL Chloride 109 H (98-107) mmol/L Creatine Kinase 175 H (30-135) U/L Microbiology - Last 24 Hours (Table) 07/24/18 03:14 Blood Culture - Preliminary Blood No Growth after 96 hours Laboratory Results WBC 8.6 k/uL (3.8-10.6) 07/28/18 07:46 RBC 2.96 m/uL (3.80-5.40) L 07/28/18 07:46 Hgb 8.8 gm/dL (11.4-16.0) L 07/28/18 07:46 Hct 27.0 % (34.0-46.0) L 07/28/18 07:46 MCV 91.3 fL (80.0-100.0) 07/28/18 07:46 MCH 29.8 pg (25.0-35.0) 07/28/18 07:46 MCHC 32.6 g/dL (31.0-37.0) 07/28/18 07:46 RDW 14.5 % (11.5-15.5) 07/28/18 07:46 Plt Count 271 k/uL (150-450) 07/28/18 07:46 Neutrophils % 82 % 07/28/18 07:46 Neutrophils % (Manual) 77 % 07/27/18 08:31 Band Neutrophils % 3 % 07/27/18 08:31 Lymphocytes % 9 % 07/28/18 07:46 Lymphocytes % (Manual) 13 % 07/27/18 08:31 Monocytes % 5 % 07/28/18 07:46 Monocytes % (Manual) 5 % 07/27/18 08:31 Eosinophils % 1 % 07/28/18 07:46 Eosinophils % (Manual) 1 % 07/27/18 08:31 Basophils % 0 % 07/28/18 07:46 Metamyelocytes % 1 % 07/27/18 08:31 Myelocytes % 1 % 07/27/18 08:31 Neutrophils # 7.0 k/uL (1.3-7.7) 07/28/18 07:46 Neutrophils # (Manual) 7.20 k/uL (1.3-7.7) 07/27/18 08:31 Lymphocytes # 0.8 k/uL (1.0-4.8) L 07/28/18 07:46 Lymphocytes # (Manual) 1.18 k/uL (1.0-4.8) 07/27/18 08:31 Monocytes # 0.4 k/uL (0-1.0) 07/28/18 07:46 Monocytes # (Manual) 0.46 k/uL (0-1.0) 07/27/18 08:31 Eosinophils # 0.1 k/uL (0-0.7) 07/28/18 07:46 Eosinophils # (Manual) 0.09 k/uL (0-0.7) 07/27/18 08:31 Basophils # 0.0 k/uL (0-0.2) 07/28/18 07:46 Metamyelocytes # (Man) 0.09 k/uL (0) H 07/27/18 08:31 Myelocytes # (Manual) 0.09 k/uL (0) H 07/27/18 08:31 Nucleated RBCs 0 /100 WBC (0-0) 07/27/18 08:31 Manual Slide Review Performed 07/27/18 08:31 Toxic Granulation Present 07/27/18 08:31 RBC Morphology Normal 07/27/18 08:31 Hypochromasia Slight 07/25/18 04:23 Poikilocytosis Slight 07/26/18 07:39 PT 9.8 sec (9.0-12.0) 07/28/18 13:08 INR 0.9 (<1.2) 07/28/18 13:08 Sodium 139 mmol/L (137-145) 07/28/18 07:46 Potassium 3.9 mmol/L (3.5-5.1) 07/28/18 07:46 Chloride 109 mmol/L (98-107) H 07/28/18 07:46 Carbon Dioxide 27 mmol/L (22-30) 07/28/18 07:46 Anion Gap 3 mmol/L 07/28/18 07:46 BUN 11 mg/dL (7-17) 07/28/18 07:46 Creatinine 0.62 mg/dL (0.52-1.04) 07/28/18 07:46 Est GFR (CKD-EPI)AfAm >90 (>60 ml/min/1.73 sqM) 07/28/18 07:46 Est GFR (CKD-EPI)NonAf >90 (>60 ml/min/1.73 sqM) 07/28/18 07:46 Glucose 90 mg/dL (74-99) 07/28/18 07:46 POC Glucose (mg/dL) 102 mg/dL (75-99) H 07/24/18 22:01 POC Glu Co Director ID Jh Jeronimo 07/24/18 22:01 Plasma Lactic Acid Lm 1.1 mmol/L (0.7-2.0) 07/24/18 18:42 Calcium 8.7 mg/dL (8.4-10.2) 07/28/18 07:46 Magnesium 2.1 mg/dL (1.6-2.3) 07/26/18 07:39 Creatine Kinase 175 U/L (30-135) H 07/28/18 07:46 Urine Color Yellow 07/23/18 21:22 Urine Appearance Cloudy (Clear) H 07/23/18 21:22 Urine pH 6.0 (5.0-8.0) 07/23/18 21:22 Ur Specific Mchenry 1.020 (1.001-1.035) 07/23/18 21:22 Urine Protein 2+ (Negative) H 07/23/18 21:22 Urine Glucose (UA) Negative (Negative) 07/23/18 21:22 Urine Ketones 1+ (Negative) H 07/23/18 21:22 Urine Blood Large (Negative) H 07/23/18 21:22 Urine Nitrite Negative (Negative) 07/23/18 21:22 Urine Bilirubin Negative (Negative) 07/23/18 21:22 Urine Urobilinogen 2.0 mg/dL (<2.0) 07/23/18 21:22 Ur Leukocyte Esterase Negative (Negative) 07/23/18 21:22 Urine RBC 2 /hpf (0-5) 07/23/18 21:22 Urine WBC 9 /hpf (0-5) H 07/23/18 21:22 Ur Squamous Epith Cells 2 /hpf (0-4) 07/23/18 21:22 Urine Bacteria Moderate /hpf (None) H 07/23/18 21:22 Hyaline Casts 10 /lpf (0-2) H 07/23/18 21:22 Urine Mucus Occasional /hpf (None) H 07/23/18 21:22 Vancomycin Trough 27.3 ug/mL 07/26/18 07:39 Influenza Type A RNA Not Detected (Not Detectd) 07/23/18 21:22 Influenza Type B (PCR) Not Detected (Not Detectd) 07/23/18 21:22 Microbiology Entire Visit 07/24/18 03:14 Blood Blood Culture - Preliminary No Growth after 96 hours 07/24/18 13:00 Foot - Left Gram Stain - Final 07/24/18 13:00 Foot - Left Wound Culture - Final Staphylococcus aureus 07/24/18 01:55 Urine,Catheterized Urine Culture - Final Escherichia coli 07/24/18 03:30 Nasal Swab Nasal Culture - Final Assessment and Plan (1) Rhabdomyolysis Current Visit: Yes Status: Acute Code(s): M62.82 - RHABDOMYOLYSIS SNOMED Code(s): 880771150 (2) Ulcer of left heel and midfoot with fat layer exposed Current Visit: No Status: Acute Code(s): L97.422 - NON-PRS CHR ULCER OF LEFT HEEL AND MIDFOOT W FAT LAYER EXPOS SNOMED Code(s): 50148583 (3) Obesity Current Visit: Yes Status: Acute Code(s): E66.9 - OBESITY, UNSPECIFIED SNOMED Code(s): 651358556 (4) UTI (urinary tract infection) Narrative/Plan: 62-year-old woman who has superobesity chronic difficulties with ambulation is developed a marked worsening to the ulceration to her left heel that appears to be pressure in nature. There was robson necrosis and is now been debrided by the surgeon. Antibiotic therapy with vancomycin and Zosyn have been started while cultures are in process. Admission the patient had a marked alteration of her status and that she actually was unresponsive and was awoken by EMS when they entered her apartment. There was evidence of rhabdomyolysis which is improving in fortunately does not have acute renal failure However there is evidence of urinary tract infection and Zosyn should give us coverage based on her prior cultures. Patient likely will need a course of intravenous antibiotic therapy and ongoing local wound care and likely will need to go to rehab to continue her courses of therapy. Dietitian would be helpful to help with her protein intake and ability to improve her wounds. 07/27/2018 patient still feels poorly. So has significant weakness. This tolerated and current antibiotic therapy well with Zosyn. Local wound care is continuing and she has no new complaints. Appetite somewhat poor for her, attempting to improve her protein intake. It appears that rehabilitation placement is in process. 07/28/2018 reveals the patient to be feeling slightly better. She's having no other acute new troubles except she has to be a generalized weakness and plans are in process for her transfer to extended care. PICC line has been requested Intravenous antibiotic therapy is requested with Rocephin 2 g IV piggyback for 14 days for urinary tract infection and wound infection. Local wound care will continue with the theroney to the ulcerations. If possible can follow the wound healing center after her discharge. Current Visit: Yes Status: Acute Code(s): N39.0 - URINARY TRACT INFECTION, SITE NOT SPECIFIED SNOMED Code(s): 99976534
[2018-07-29] MEDS: HYDROcodone/APAP 7.5-325MG 1 EACH TAB PO PRN ×2 (00:37→11:44)
[2018-07-29] MEDS ORDERED: VANCOMYCIN TROUGH DUE 1 EACH MISC MISCELLANE ONE (05:00)
[2018-07-29] MEDS: LEVOTHYROXINE 100 MCG TAB PO SCH (05:16)
[2018-07-29 06:17] LABS: Basophils % (A) 0 %; Eosinophils # (A) 0.2 k/uL (0-0.7); Eosinophils % (A) 2 %; HCT 26.4 % (34.0-46.0); HGB 8.8 gm/dL (11.4-16.0); Lymphocytes # (A) 0.9 k/uL (1.0-4.8); Lymphocytes % (A) 12 %; MCH 29.7 pg (25.0-35.0); MCHC 33.2 g/dL (31.0-37.0); MCV 89.4 fL (80.0-100.0); Mean Platelet Volume 8.6; Monocytes # (A) 0.4 k/uL (0-1.0); Monocytes % (A) 5 %; Neutrophils # (A) 6.1 k/uL (1.3-7.7); Neutrophils % (A) 79 %; Platelet Count 251 k/uL (150-450); RBC 2.95 m/uL (3.80-5.40); RDW 14.8 % (11.5-15.5); WBC 7.8 k/uL (3.8-10.6)
[2018-07-29 06:28] LABS: Anion Gap 4 mmol/L; Blood Urea Nitrogen 11 mg/dL (7-17); Calcium 8.4 mg/dL (8.4-10.2); Carbon Dioxide 31 mmol/L (22-30); Chloride 104 mmol/L (98-107); Creatine Kinase 100 U/L (30-135); Glucose 93 mg/dL (74-99); Potassium 3.4 mmol/L (3.5-5.1); Sodium 139 mmol/L (137-145)
[2018-07-29 07:30] VITALS: PULSE 69; RESP 12
[2018-07-29] MEDS: IPRATROPIUM-ALBUTEROL 3 ML NEB INHALATION SCH ×2 (07:30→12:05)
[2018-07-29] MEDS: PANTOPRAZOLE 40 MG TABLET PO SCH (08:03)
[2018-07-29] MEDS: MIDODRINE 5 MG TAB PO SCH ×2 (08:03→11:45)
[2018-07-29] MEDS: HEPARIN SODIUM,PORCINE 5,000 UNIT/ML 1 ML VIAL SQ SCH (08:59)
[2018-07-29] MEDS: GABAPENTIN 300 MG CAP PO SCH ×2 (08:59→13:54)
[2018-07-29] MEDS: CHOLECALCIFEROL 1,000 UNIT TAB PO SCH (08:59)
[2018-07-29] MEDS: FUROSEMIDE 10 MG/ML 4 ML VIAL IV SCH (08:59)
[2018-07-29] MEDS: PREGABALIN 50 MG CAP PO SCH ×2 (08:59→13:54)
[2018-07-29] MEDS: SILVER GEL 44.4 APPLIC/44.4 ML TUBE TOPICAL SCH (09:04)
[2018-07-29] MEDS: MULTIVITAMINS, THERA 1 EACH TAB PO SCH (11:44)
--- NOTE | 2018-07-29 14:41 | P.DS ---
Providers Date of admission: 07/23/18 16:31 Attending physician: Wagner Howe Consults: 07/23/18 16:32 Consult Physician Routine Consulting Provider: Nava Ybarra Consult Reason/Comments: rhabdomyolysis, jenna Do you want consulting provider notified?: Yes 07/23/18 18:52 Consult Physician Routine Consulting Provider: Chaz Suazo Consult Reason/Comments: wound care Do you want consulting provider notified?: Yes 07/24/18 00:26 Consult Physician Routine Consulting Provider: Luis E Danielson Consult Reason/Comments: ulcer left foot Do you want consulting provider notified?: Yes 07/24/18 20:27 Consult Physician Routine Consulting Provider: Adriana Mitchell Consult Reason/Comments: icu management Do you want consulting provider notified?: Yes Primary care physician: [facility] Course: Final diagnosis Acute on chronic left heel ulcer with the possible osteomyelitis with the possible severe sepsis present on admission status post bedside debridement. hypotension with possible sepsis septic shock and severe sepsis monitored closely with the fluid bolus in ICU. Change in mental status acute metabolic encephalopathy secondary to sepsis Diarrhea C. difficile ruled out Increased WBC Acute rhabdomyolysis Acute renal failure secondary to rhabdomyolysis with the prerenal factors and acute tubular necrosis. Hypokalemia Morbid obesity Hypertension History of DJD Hypothyroidism History UTI History of MRSA History of resistant E. coli UTI Full code History of present illness this 63 over the past medical history multiple medical problems admitted with the left heel ulcer with sepsis and osteomyelitis also had multiple complex medical issues. Patient had debridement at the bedside by Dr. Danielson patient was seen by Dr. Suazo during the hospitalization. Patient also had MSSA grown from the wound culture. E. coli was grown from the urine which was rather persistent. Patient was monitored closely. Patient improved significantly. Patient be transferred to [facility] for rehab in stable condition with guarded prognosis. Total time time taken 35 minutes. On exam vitals are stable. Cardio S1 and S2 normal. Respirator system few scattered rhonchi. Abdomen soft nontender. Nervous system no focal deficit. Left foot ulcer present. Recommend to taper off the prince Lasix at this time. Patient also has IV antibiotics. Closely monitor with the infection disease and vascular surgery Dr. Danielson and as well as IV antibiotic and PICC line care. Patient Condition at Discharge: Fair Plan - Discharge Summary Discharge Rx Participant: Yes New Discharge Prescriptions: New Heparin Sodium,Porcine [Heparin Sodium] 5,000 unit SQ Q12HR vial Potassium Chloride [Klor-Con 20] 20 meq PO DAILY #1 tab Furosemide [Lasix] 20 mg PO BID #1 tab HYDROcodone/APAP 7.5-325MG [Selby 7.5-325] 1 each PO Q6HR PRN #10 tab PRN Reason: Pain Midodrine [ProAmatine] 5 mg PO AC-TID tab Pantoprazole [Protonix] 40 mg PO AC-BRKFST tablet. Albuterol Nebulized [Ventolin Nebulized] 2.5 mg INHALATION RT-QID PRN nebu PRN Reason: Shortness Of Breath Or Wheezing ALPRAZolam [Xanax] 0.25 mg PO TID PRN tab PRN Reason: Anxiety Continue Levothyroxine Sodium [Synthroid] 100 mcg PO DAILY Lisinopril [Zestril] 40 mg PO BID Gabapentin [Neurontin] 600 mg PO BID@1000,1400 cap Pregabalin [Lyrica] 50 mg PO TID@1000,1400,2200 Gabapentin [Neurontin] 900 mg PO HS@2200 Cholecalciferol (Vitamin D3) [Vitamin D3] 2,000 unit PO DAILY amLODIPine [Norvasc] 5 mg PO DAILY Multivitamin with Iron [Multivitamins with Iron] 1 tab PO DAILY Discontinued Ibuprofen [Motrin] 800 mg PO TID PRN PRN Reason: Pain HYDROcodone/APAP 7.5-325MG [Selby 7.5-325] 1 tab PO Q6HR PRN #14 tab PRN Reason: Pain Atorvastatin Calcium [Lipitor] 10 mg PO DAILY Discharge Medication List Levothyroxine Sodium [Synthroid] 100 mcg PO DAILY 08/29/13 [History] Lisinopril [Zestril] 40 mg PO BID 08/29/13 [History] Gabapentin [Neurontin] 600 mg PO BID@1000,1400 cap 09/15/16 [Rx] Pregabalin [Lyrica] 50 mg PO TID@1000,1400,2200 09/29/16 [History] Gabapentin [Neurontin] 900 mg PO HS@2200 12/16/17 [History] Cholecalciferol (Vitamin D3) [Vitamin D3] 2,000 unit PO DAILY 04/12/18 [History] Multivitamin with Iron [Multivitamins with Iron] 1 tab PO DAILY 07/23/18 [History] amLODIPine [Norvasc] 5 mg PO DAILY 07/23/18 [History] ALPRAZolam [Xanax] 0.25 mg PO TID PRN tab 07/29/18 [Rx] Albuterol Nebulized [Ventolin Nebulized] 2.5 mg INHALATION RT-QID PRN nebu 07/29/18 [Rx] Furosemide [Lasix] 20 mg PO BID #1 tab 07/29/18 [Rx] HYDROcodone/APAP 7.5-325MG [Selby 7.5-325] 1 each PO Q6HR PRN #10 tab 07/29/18 [Rx] Heparin Sodium,Porcine [Heparin Sodium] 5,000 unit SQ Q12HR vial 07/29/18 [Rx] Midodrine [ProAmatine] 5 mg PO AC-TID tab 07/29/18 [Rx] Pantoprazole [Protonix] 40 mg PO AC-BRKFST tablet. 07/29/18 [Rx] Potassium Chloride [Klor-Con 20] 20 meq PO DAILY #1 tab 07/29/18 [Rx] Follow up Appointment(s)/Referral(s): Adonis Mcfarlane DO [Primary Care Provider] - 1-2 days Activity/Diet/Wound Care/Special Instructions: iv antibiotics per id
--- NOTE | 2018-07-29 15:54 | IR ---
EXAMINATION TYPE: IR cvc insert >=5 years DATE OF EXAM: 07/29/2018 COMPARISON: NONE CLINICAL HISTORY: Infection Needs long-term intravenous access for antibiotics. PROCEDURE: After informed consent, the skin overlying the left basilic vein was localized with ultrasound and no gato to be compressible and patent. An ultrasound image was obtained and submitted on the patient's c bills. The overlying skin was prepped and draped and Lidocaine was used for local anesthesia. A skin paula was made with a scalpel. Access was gained to the vein under ultrasound guidance with a 21 gau ge needle and a 0.018 inch wire was advanced. Access site was dilated with Peel-Away sheath and cath eter tailored to the appropriate length and advanced such that the distal tip is at the cavoatrial ju nction. Spot image was obtained verifying placement. Catheter was fixed to the skin and a sterile d ressing was placed following hemostasis. Catheter was aspirated and flushed with saline. Patient wa s discharged in stable condition without complication. Maximal barrier technique is utilized. Ultras ound image is documented on the chart. Ultrasound used with sterile technique. Fluoro time and fluoroscopic images submitted to document procedure: 0.1 minutes fluoroscopy time 122 intraoperative C-arm images IMPRESSION: STATUS POST ULTRASOUND AND FLUOROSCOPIC GUIDED PICC LINE PLACEMENT, READY FOR USE. THIS PROCEDURE WAS PERFORMED BY THE UNDERSIGNED.
[2018-07-29 16:10] VITALS: BP 136/80; TEMP 98.5
[2018-07-29] MEDS ORDERED: POTASSIUM CHLORIDE ER 20 MEQ TAB.ER PO STA (16:24)
--- NOTE | 2018-07-29 17:36 | PN ---
PROGRESS NOTE Patient is seen for followup for rhabdomyolysis and volume overload. She is maintained on IV Lasix b.i.d. Her weight is about the same as of yesterday. We do not have a weight from today. On examination today, blood pressure this morning was 124/78, heart rate of 69 per minute. Patient is afebrile. EXAMINATION OF THE HEART: S1 and S2. EXAMINATION OF LUNGS: Bilateral breath sounds are heard. ABDOMEN: Soft, non-tender, morbidly obese. Examination of lower extremities shows left lower extremity to be wrapped and chronic skin changes noted in the right lower extremity. Labs show hemoglobin 8.8, sodium 139, potassium 3.4, BUN 11, serum creatinine 0.58. ASSESSMENT: 1. Rhabdomyolysis, currently significantly improved. 2. Left lower extremity cellulitis, maintained on antibiotics. 3. Volume overload, maintained on IV Lasix q.12 hours, which I will continue. We also need to check daily weights. 4. Hypokalemia from diuresis. Will replace. 5. Hypotension, currently resolved. Patient is maintained on midodrine, which I will discontinue. PLAN: Continue with Lasix. Replace potassium. Discontinue midodrine and continue to hold off on antihypertensive medications for now. MMODL / IJN: [id number] /
== END 2018-07-29 18:30 | DRG 853 ==
LOC: EC 14:56 → 4SSUR 16:31 → 2SICU 07-24 14:09 → 4SSUR 07-25 13:20
PROVIDERS: ADMIT Hospitalist; ATTEND Hospitalist
PROC: 0JBR0ZZ Excision of Left Foot Subcutaneous Tissue and Fascia, Open Approach (ICD-10-PCS; principal; 2018-07-24)
DX: A41.01 Sepsis due to Methicillin susceptible Staphylococcus aureus (principal); R65.21 Severe sepsis with septic shock; G93.41 Metabolic encephalopathy; N17.0 Acute kidney failure with tubular necrosis; E87.2 Acidosis; L03.116 Cellulitis of left lower limb; L97.422 Non-pressure chronic ulcer of left heel and midfoot with fat layer exposed; M62.82 Rhabdomyolysis; M86.9 Osteomyelitis, unspecified; N39.0 Urinary tract infection, site not specified; T82.9XXA Unspecified complication of cardiac and vascular prosthetic device, implant and graft, initial encounter; Z68.43 Body mass index [BMI] 50.0-59.9, adult; E66.01 Morbid (severe) obesity due to excess calories; L89.90 Pressure ulcer of unspecified site, unspecified stage; E87.70 Fluid overload, unspecified; G62.9 Polyneuropathy, unspecified; B96.20 Unspecified Escherichia coli [E. coli] as the cause of diseases classified elsewhere; E03.9 Hypothyroidism, unspecified; E78.5 Hyperlipidemia, unspecified; E87.6 Hypokalemia; I10 Essential (primary) hypertension; J44.9 Chronic obstructive pulmonary disease, unspecified; M15.9 Polyosteoarthritis, unspecified; I87.2 Venous insufficiency (chronic) (peripheral); K42.9 Umbilical hernia without obstruction or gangrene; N39.3 Stress incontinence (female) (male); R19.7 Diarrhea, unspecified; R80.9 Proteinuria, unspecified; E86.0 Dehydration; T50.2X5A Adverse effect of carbonic-anhydrase inhibitors, benzothiadiazides and other diuretics, initial encounter; E16.2 Hypoglycemia, unspecified; Z79.890 Hormone replacement therapy; Z79.899 Other long term (current) drug therapy; Z86.14 Personal history of Methicillin resistant Staphylococcus aureus infection; Z87.440 Personal history of urinary (tract) infections; Z87.891 Personal history of nicotine dependence; Z90.49 Acquired absence of other specified parts of digestive tract; Z89.412 Acquired absence of left great toe; Z90.710 Acquired absence of both cervix and uterus; Z98.51 Tubal ligation status; Z88.2 Allergy status to sulfonamides; Z80.1 Family history of malignant neoplasm of trachea, bronchus and lung; Z82.49 Family history of ischemic heart disease and other diseases of the circulatory system; Z85.89 Personal history of malignant neoplasm of other organs and systems
CPT/HCPCS: 36415; 36573; 70450; 71045; 72170; 80048; 80202; 81001; 82550; 83605; 83735; 84132; 85025; 85610; 87040; 87070; 87077; 87086; 87186; 87205; 87502; 93005; 99284; 99285

== ENCOUNTER 2018-10-06 14:09 | Inpatient (IN) | payer MEDICARE ==
--- NOTE | 2018-10-06 15:18 | ED ---
General Adult HPI - General Chief complaint: Weakness Stated complaint: AMS Time Seen by Provider: 10/06/18 14:20 Source: patient, RN notes reviewed Mode of arrival: EMS Limitations: physical limitation - History of Present Illness Initial comments: This a 63-year-old female presents emergency department after having been released from the halfway to go home. Patient was there getting rehabilitation and having wound care of her right heel. Patient states today she is so weak she is unable to even stand so she can't move her foot and she believes that wound is getting worse. Patient denies any fever chills. Patient denies any chest pain palpitations difficulty breathing first breath per patient denies any abdominal pain. Patient denies headache patient denies numbness or weakness that is new. Patient denies any recent fever but does states she has the chills. - Related Data Home Medications Medication Instructions Recorded Confirmed Levothyroxine Sodium [Synthroid] 100 mcg PO DAILY 08/29/13 10/06/18 Lisinopril [Zestril] 40 mg PO BID 08/29/13 10/06/18 Pregabalin [Lyrica] 50 mg PO TID@1000,1400,2200 09/29/16 10/06/18 Gabapentin [Neurontin] 900 mg PO HS@2200 12/16/17 10/06/18 amLODIPine [Norvasc] 5 mg PO DAILY 07/23/18 10/06/18 Atorvastatin Calcium [Lipitor] 10 mg PO DAILY 10/06/18 10/06/18 HYDROcodone/APAP 7.5-325MG [[place] 1 tab PO Q6HR PRN 10/06/18 10/06/18 7.5-325] Ibuprofen 800 mg PO Q8H PRN 10/06/18 10/06/18 Previous Rx's Medication Instructions Recorded Gabapentin [Neurontin] 600 mg PO BID@1000,1400 cap 09/15/16 Allergies Allergy/AdvReac Type Severity Reaction Status Date / Time Sulfa (Sulfonamide Allergy Rash/Hives Verified 10/06/18 14:24 Antibiotics) Review of Systems ROS Statement: Those systems with pertinent positive or pertinent negative responses have been documented in the HPI. ROS Other: All systems not noted in ROS Statement are negative. Past Medical History Past Medical History: Hypertension, Osteoarthritis (OA), Skin Disorder, Thyroid Disorder Additional Past Medical History / Comment(s): UTI, neuropathy, anemia, umbilical hernia, WOUND LEFT HEEL, umb hernia, breakdown lt foot goes to [facility], strss incont of urine History of Any Multi-Drug Resistant Organisms: MRSA Date of last positivie culture/infection: 04/04/17 MDRO Source:: Left-Fifth Toe Past Surgical History: Section, Cholecystectomy, Orthopedic Surgery, Tubal Ligation Additional Past Surgical History / Comment(s): D&C x 3, arthroscopic left knee x 2 Past Anesthesia/Blood Transfusion Reactions: Previous Problems w/ Anesthesia Additional Past Anesthesia/Blood Transfusion Reaction / Comment(s): slow to come out of it Past Psychological History: No Psychological Hx Reported Smoking Status: Former smoker Past Alcohol Use History: Rare Past Drug Use History: None Reported - Past Family History Father Family Medical History: Cancer, Coronary Artery Disease (CAD), Myocardial Infarction ([place]), Prostate Disorder Additional Family Medical History / Comment(s): Prostate CA Mother Family Medical History: Cancer, CVA/TIA, Hyperlipidemia Additional Family Medical History / Comment(s): Lung CA-left lobe removed General Exam - General Exam Comments Initial Comments: GENERAL: Patient is well-developed and well-nourished. Patient is nontoxic and well- hydrated and is in no acute distress. ENT: Neck is soft and supple. No significant lymphadenopathy is noted. Oropharynx is clear. Moist mucous membranes. Neck has full range of motion without eliciting any pain. EYES: The sclera were anicteric and conjunctiva were pink and moist. Extraocular movements were intact and pupils were equal round and reactive to light. Eyelids were unremarkable. PULMONARY: Unlabored respirations. Good breath sounds bilaterally. No audible rales rhonchi or wheezing was noted. CARDIOVASCULAR: There is a regular rate and rhythm without any murmurs gallops or rubs. ABDOMEN: Soft and nontender with normal bowel sounds. SKIN: Skin is clear with no lesions or rashes and otherwise unremarkable. NEUROLOGIC: Patient is alert and oriented x3. Cranial nerves II through XII are grossly intact. Motor and sensory are also intact. Normal speech, volume and content. Symmetrical smile. MUSCULOSKELETAL: Wound on the heel the right foot looks like it is expanding there is some erythema and some more skin sloughing. LYMPHATICS: No significant lymphadenopathy is noted PSYCHIATRIC: Normal psychiatric evaluation. Limitations: physical limitation Course Vital Signs 10/06/18 14:18 Temperature 98.5 F Pulse Rate 101 H Respiratory 18 Rate Blood Pressure 120/73 O2 Sat by Pulse 98 Oximetry Medical Decision Making - Medical Decision Making EKG shows a sinus rhythm at 99 bpm QRS is 68 QT interval 326 QTC is 418 ND interval is 140. There is no ST segment elevation X-ray shows no evidence of osteomyelitis. I spoke with Dr. Maguire she agreed to admit the patient admitted the patient wrote admitting orders - Lab Data Result diagrams: 10/06/18 14:58 10/06/18 14:58 Lab Results 10/06/18 10/06/18 10/06/18 Range/Units 14:58 14:58 14:58 WBC 13.8 H (3.8-10.6) k/uL RBC 3.68 L (3.80-5.40) m/uL Hgb 10.8 L (11.4-16.0) gm/dL Hct 33.6 L (34.0-46.0) % MCV 91.2 (80.0-100.0) fL MCH 29.2 (25.0-35.0) pg MCHC 32.0 (31.0-37.0) g/dL RDW 14.2 (11.5-15.5) % Plt Count 238 (150-450) k/uL Neutrophils % 90 % Lymphocytes % 5 % Monocytes % 4 % Eosinophils % 1 % Basophils % 0 % Neutrophils # 12.4 H (1.3-7.7) k/uL Lymphocytes # 0.6 L (1.0-4.8) k/uL Monocytes # 0.5 (0-1.0) k/uL Eosinophils # 0.1 (0-0.7) k/uL Basophils # 0.0 (0-0.2) k/uL PT (9.0-12.0) sec INR (<1.2) APTT (22.0-30.0) sec Sodium 143 (137-145) mmol/L Potassium 5.8 H (3.5-5.1) mmol/L Chloride 109 H (98-107) mmol/L Carbon Dioxide 18 L (22-30) mmol/L Anion Gap 16 mmol/L BUN 104 H* (7-17) mg/dL Creatinine 3.75 H (0.52-1.04) mg/dL Est GFR (CKD-EPI)AfAm 14 (>60 ml/min/1.73 sqM) Est GFR (CKD-EPI)NonAf 12 (>60 ml/min/1.73 sqM) Glucose 105 H (74-99) mg/dL Plasma Lactic Acid Lm 1.0 (0.7-2.0) mmol/L Calcium 10.2 (8.4-10.2) mg/dL Total Bilirubin 0.4 (0.2-1.3) mg/dL AST 20 (14-36) U/L ALT 13 (9-52) U/L Alkaline Phosphatase 130 H (38-126) U/L Troponin I (0.000-0.034) ng/mL Total Protein 7.5 (6.3-8.2) g/dL Albumin 4.2 (3.5-5.0) g/dL Urine Color Urine Appearance (Clear) Urine pH (5.0-8.0) Ur Specific [place] (1.001-1.035) Urine Protein (Negative) Urine Glucose (UA) (Negative) Urine Ketones (Negative) Urine Blood (Negative) Urine Nitrite (Negative) Urine Bilirubin (Negative) Urine Urobilinogen (<2.0) mg/dL Ur Leukocyte Esterase (Negative) Urine RBC (0-5) /hpf Urine WBC (0-5) /hpf Ur Squamous Epith Cells (0-4) /hpf Cellular Casts (0) /lpf Hyaline Casts (0-2) /lpf Urine Mucus (None) /hpf Urine Yeast (Budding) (None) /hpf 10/06/18 10/06/18 10/06/18 Range/Units 14:58 14:58 16:23 WBC (3.8-10.6) k/uL RBC (3.80-5.40) m/uL Hgb (11.4-16.0) gm/dL Hct (34.0-46.0) % MCV (80.0-100.0) fL MCH (25.0-35.0) pg MCHC (31.0-37.0) g/dL RDW (11.5-15.5) % Plt Count (150-450) k/uL Neutrophils % % Lymphocytes % % Monocytes % % Eosinophils % % Basophils % % Neutrophils # (1.3-7.7) k/uL Lymphocytes # (1.0-4.8) k/uL Monocytes # (0-1.0) k/uL Eosinophils # (0-0.7) k/uL Basophils # (0-0.2) k/uL PT 10.2 (9.0-12.0) sec INR 0.9 (<1.2) APTT 33.9 H (22.0-30.0) sec Sodium (137-145) mmol/L Potassium (3.5-5.1) mmol/L Chloride (98-107) mmol/L Carbon Dioxide (22-30) mmol/L Anion Gap mmol/L BUN (7-17) mg/dL Creatinine (0.52-1.04) mg/dL Est GFR (CKD-EPI)AfAm (>60 ml/min/1.73 sqM) Est GFR (CKD-EPI)NonAf (>60 ml/min/1.73 sqM) Glucose (74-99) mg/dL Plasma Lactic Acid Lm (0.7-2.0) mmol/L Calcium (8.4-10.2) mg/dL Total Bilirubin (0.2-1.3) mg/dL AST (14-36) U/L ALT (9-52) U/L Alkaline Phosphatase (38-126) U/L Troponin I <0.012 (0.000-0.034) ng/mL Total Protein (6.3-8.2) g/dL Albumin (3.5-5.0) g/dL Urine Color Yellow Urine Appearance Cloudy H (Clear) Urine pH 5.0 (5.0-8.0) Ur Specific [place] 1.018 (1.001-1.035) Urine Protein 1+ H (Negative) Urine Glucose (UA) Negative (Negative) Urine Ketones Negative (Negative) Urine Blood Negative (Negative) Urine Nitrite Negative (Negative) Urine Bilirubin Negative (Negative) Urine Urobilinogen <2.0 (<2.0) mg/dL Ur Leukocyte Esterase Moderate H (Negative) Urine RBC 23 H (0-5) /hpf Urine WBC 13 H (0-5) /hpf Ur Squamous Epith Cells <1 (0-4) /hpf Cellular Casts 3 (0) /lpf Hyaline Casts 32 H (0-2) /lpf Urine Mucus Rare H (None) /hpf Urine Yeast (Budding) Many H (None) /hpf Disposition Clinical Impression: Acute kidney failure, Decubitus ulcer of foot, Hyperkalemia Disposition: ADMITTED IP TO THIS HOSP Referrals: Adonis Mcfarlane DO [Primary Care Provider] - 1-2 days Time of Disposition: 19:05
[2018-10-06 15:36] LABS: Basophils % (A) 0 %; Eosinophils # (A) 0.1 k/uL (0-0.7); Eosinophils % (A) 1 %; HCT 33.6 % (34.0-46.0); HGB 10.8 gm/dL (11.4-16.0); Lymphocytes # (A) 0.6 k/uL (1.0-4.8); Lymphocytes % (A) 5 %; MCH 29.2 pg (25.0-35.0); MCV 91.2 fL (80.0-100.0); Mean Platelet Volume 8.8; Monocytes # (A) 0.5 k/uL (0-1.0); Monocytes % (A) 4 %; Neutrophils # (A) 12.4 k/uL (1.3-7.7); Neutrophils % (A) 90 %; Platelet Count 238 k/uL (150-450); RBC 3.68 m/uL (3.80-5.40); RDW 14.2 % (11.5-15.5); WBC 13.8 k/uL (3.8-10.6)
[2018-10-06 15:45] LABS: Albumin 4.2 g/dL (3.5-5.0); Calcium 10.2 mg/dL (8.4-10.2); Potassium 5.8 mmol/L (3.5-5.1); Total Bilirubin 0.4 mg/dL (0.2-1.3); Total Protein 7.5 g/dL (6.3-8.2)
[2018-10-06 15:50] LABS: INR 0.9 (<1.2); Partial Thromboplastin Time 33.9 sec (22.0-30.0); Prothrombin Time 10.2 sec (9.0-12.0)
--- NOTE | 2018-10-06 15:54 | XR ---
EXAMINATION TYPE: XR chest 2V DATE OF EXAM: 10/06/2018 COMPARISON: 07/25/2018 HISTORY: Weakness TECHNIQUE: Frontal and lateral views of the chest are obtained. FINDINGS: There is no focal air space opacity, pleural effusion, or pneumothorax seen. Interstitial prominence is chronic. The cardiac silhouette size is upper limits of normal. The osseous structure s are intact. Mild multilevel degenerative changes of the thoracic spine are seen. IMPRESSION: No acute cardiopulmonary process.
--- NOTE | 2018-10-06 15:56 | XR ---
EXAMINATION TYPE: XR foot complete LT DATE OF EXAM: 10/06/2018 CLINICAL HISTORY: Nonhealing wound of the left heel for 6 years TECHNIQUE: Frontal, lateral, and oblique images of the left foot are obtained. COMPARISON: None FINDINGS: There is no acute fracture/dislocation evident in the left foot. There has been interva l surgical amputation of the first phalanx and distal first metatarsal. There is diffuse osseous donato neralization seen. Degenerative changes of the forefoot are mild. Calcifications are noted projecting over the soft tissues of the left ankle that can be seen in posterior matter change, dermatomyositis , or myositis ossificans. Achilles and plantar enthesophytes are seen with pes planus deformity. Osse ous proliferation of the dorsal hindfoot is also noted. No subcutaneous emphysema the patient stated ulceration of the heel with soft tissue defect seen of the skin overlying the calcaneus. No periostea l reaction or cortical erosion. 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
[2018-10-06 16:29] LABS: Appearance,Urine Cloudy (Clear); Bilirubin,Urine Negative (Negative); Blood,Urine Negative (Negative); Budding Yeast,Urine Many /hpf; Cellular Casts,Urine 3 /lpf (0); Color,Urine Yellow; Glucose,Urine (UA) Negative (Negative); Hyaline Casts,Urine 32 /lpf (0-2); Ketones,Urine Negative (Negative); Leukocyte Esterase,Urine Moderate (Negative); Mucus,Urine Rare /hpf; Nitrite,Urine Negative (Negative); Protein,Urine 1+ (Negative); RBC,Urine 23 /hpf (0-5); Specific Gravity,Urine 1.018 (1.001-1.035); Squamous Epithelial Cell,Urine <1 /hpf (0-4); Urobilinogen,Urine <2.0 mg/dL (<2.0); WBC,Urine 13 /hpf (0-5)
[2018-10-06] MEDS ORDERED: PIPERACILLIN-TAZOBACTAM 3.375 GM in SODIUM CHLORIDE 0.9% 100 ML IVPB STA (17:31)
[2018-10-06] MEDS ORDERED: SODIUM CHLORIDE 0.9% 1,000 ML IV ONE (19:05)
[2018-10-06] MEDS: SODIUM CHLORIDE 0.9% 1,000 ML IV SCH (22:10)
[2018-10-06] MEDS: PREGABALIN 50 MG CAP PO SCH (22:11)
[2018-10-07] MEDS: LEVOTHYROXINE 100 MCG TAB PO SCH (05:21)
[2018-10-07] MEDS ORDERED: PIPERACILLIN-TAZOBACTAM 3.375 GM in SODIUM CHLORIDE 0.9% 100 ML IVPB SCH ×4 (06:00→16:00)
[2018-10-07] MEDS: HYDROcodone/APAP 7.5-325MG 1 EACH TAB PO PRN ×2 (06:09→17:45)
[2018-10-07] MEDS: SODIUM CHLORIDE 0.9% 1,000 ML IV SCH ×2 (06:10→17:47)
[2018-10-07 08:51] LABS: HCT 27.9 % (34.0-46.0); Hypochromasia Slight; MCH 29.5 pg (25.0-35.0); MCHC 32.6 g/dL (31.0-37.0); MCV 90.6 fL (80.0-100.0); Mean Platelet Volume 9.3; Platelet Count 179 k/uL (150-450); RBC 3.07 m/uL (3.80-5.40); RDW 14.5 % (11.5-15.5); WBC 6.8 k/uL (3.8-10.6)
[2018-10-07 08:57] LABS: Calcium 9.3 mg/dL (8.4-10.2); Potassium 4.6 mmol/L (3.5-5.1)
[2018-10-07] MEDS ORDERED: LISINOPRIL 20 MG TAB PO SCH (09:00)
[2018-10-07 09:01] LABS: HGB 9.1 gm/dL (11.4-16.0)
[2018-10-07] MEDS: amLODIPine 5 MG TAB PO SCH (09:46)
[2018-10-07] MEDS: ATORVASTATIN 10 MG TAB PO SCH (09:46)
[2018-10-07] MEDS: PREGABALIN 50 MG CAP PO SCH ×3 (09:46→23:43)
--- NOTE | 2018-10-07 14:57 | US ---
EXAMINATION TYPE: US kidneys/renal and bladder DATE OF EXAM: 10/07/2018 COMPARISON: NONE CLINICAL HISTORY: Renal failure EXAM MEASUREMENTS: Right Kidney: 10.7 x 5.3 x 4.5 cm Left Kidney: 10.6 x 5.0 x 4.7 cm Morbidly obese patient, technically difficult and somewhat limited. Right Kidney: No hydronephrosis or nephrolithiasis. Left Kidney: Superior pole somewhat obscured by overlying bowel gas Bladder: not visualized IMPRESSION: Limited exam demonstrates no hydronephrosis or nephrolithiasis.
--- NOTE | 2018-10-07 16:52 | CONS ---
CONSULTATION REASON FOR CONSULT: Renal failure, hyperkalemia. HISTORY OF PRESENT ILLNESS: The patient is a 63-year-old female who was admitted to the hospital with complaints of weakness and not feeling well. She states she could not get out of her chair and needed help. She denied any headaches, nausea, vomiting. Patient does take Motrin at home for pain. She denies any prior history of kidney diseases. Patient's serum potassium was 5.8 mEq/L on initial admission. Her serum creatinine was 3.75, which is down to 2.4 now. Prior creatinine on 09/22/2018 was 0.6. Blood pressure has been low, with systolic 92 mmHg this morning. Patient states she was voiding prior to admission. However, she currently has an indwelling Cobos catheter. I am not sure if she had urine retention in the ER. At this time patient is not able to give that information. Currently she is maintained on IV fluids at 100 mL/hour. Patient was also on VALENTÍN inhibitors at home prior to admission. She denies any fever or cough. PAST MEDICAL HISTORY: 1. Hypertension. 2. Osteoarthritis. 3. Hypothyroidism. 4. Previous history of UTI. 5. Umbilical hernia. PAST SURGICAL HISTORY: 1. . 2. Cholecystectomy. 3. Tubal ligation. 4. D&C. 5. Left knee arthroscopy. SOCIAL HISTORY: Patient is a former smoker. No history of drug abuse or alcohol abuse. MEDICATIONS: Medications at home included: 1. Synthroid. 2. Zestril. 3. Lyrica. 4. Neurontin. 5. Norvasc. 6. Lipitor. 7. Ibuprofen. 8. [place]. 9. Neurontin. ALLERGIES: Include SULFA, which causes rash and hives. REVIEW OF SYSTEMS: As per HPI. Other systems negative. PHYSICAL EXAMINATION: On examination, patient is comfortable, awake, alert, oriented x3, not in any acute distress. Blood pressure 92/59, heart rate 80 per minute. She is afebrile EXAMINATION OF THE HEART: S1 and S2. EXAMINATION OF LUNGS: Bilateral breath sounds are heard. ABDOMEN: Soft, non-tender. Examination of lower extremities shows no significant edema. PRICING DIRECTOR exam is grossly intact. Patient is moving all 4 extremities. Patient has significant chronic skin changes bilaterally. LABS: Sodium 143, potassium 4.6, chloride 114. CO2 is 19, BUN 82, serum creatinine 2.4, hemoglobin 9.1 g/dL. UA shows 23 RBCs, 13 WBCs, and there is 1+ protein. No blood is seen. Chest x-ray from yesterday shows no acute process. ASSESSMENT: 1. Acute kidney injury secondary to hypotension as well as nonsteroidal anti- inflammatory agents in the setting of use of VALENTÍN inhibitors. Patient is advised to avoid the use of Motrin. I will also discontinue the lisinopril, as blood pressure systolic is significantly low at 92 mmHg. Continue with the IV fluids and repeat labs in a.m. Check ultrasound of the kidneys. 2. Hypertension. Blood pressure is currently low. Hold off on anti-hypertensive medications. 3. Hyperkalemia associated with acute kidney injury, use of the VALENTÍN inhibitors and nonsteroidal anti-inflammatory agents prior to admission, currently improved. 4. Mild metabolic acidosis. Expect improvement with improving renal function. 5. Pyuria. Doubt significant underlying urinary tract infection. 6. Anemia. Chest iron studies. PLAN: Continue IV fluids. Hold off on VALENTÍN inhibitors. Check ultrasound of the kidneys. Check iron profile. Repeat labs in a.m. and continue to avoid all kinds of nonsteroidal anti-inflammatory agents. Thank you for this consultation. Will continue to follow the patient with you during her hospitalization. MMODL / IJN: [id number] /
--- NOTE | 2018-10-07 18:18 | P.HPIM ---
History of Present Illness H&P Date: 10/07/18 Chief Complaint: Altered mental status 63-year-old female presents emergency department after having been released from the long term to go home. Patient was there getting rehabilitation and having wound care of her right heel. Patient states today she is so weak she is unable to even stand so she can't move her foot and she believes that wound is getting worse. Patient denies any fever chills. Patient denies any chest pain palpitations difficulty breathing first breath per patient denies any abdominal pain. Patient denies headache patient denies numbness or weakness that is new. Patient denies any recent fever but does states she has the chills. 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 History of Any Multi-Drug Resistant Organisms: C-DIFF, MRSA Date of last positivie culture/infection: 04/04/17 MDRO Source:: Left-Fifth Toe Past Surgical History: Section, Cholecystectomy, Orthopedic Surgery, Tubal Ligation Additional Past Surgical History / Comment(s): D&C x 3, arthroscopic left knee x 2, Past Anesthesia/Blood Transfusion Reactions: Previous Problems w/ Anesthesia Additional Past Anesthesia/Blood Transfusion Reaction / Comment(s): slow to come out of it Past Psychological History: No Psychological Hx Reported Smoking Status: Former smoker Past Alcohol Use History: Rare Additional Past Alcohol Use History / Comment(s): started smoking 1970, quit 1990, 1 ppd. Patient denies any medical marijuana, marijuana, street drug or alcohol use. She worked in the past as a nurse at [email or web address]. Past Drug Use History: None Reported - Past Family History Father Family Medical History: Cancer, Coronary Artery Disease (CAD), Myocardial Infarction ([place]), Prostate Disorder Additional Family Medical History / Comment(s): Prostate CA Mother Family Medical History: Cancer, CVA/TIA, Hyperlipidemia Additional Family Medical History / Comment(s): Lung CA-left lobe removed Medications and Allergies Home Medications Medication Instructions Recorded Confirmed Type Levothyroxine Sodium [Synthroid] 100 mcg PO DAILY 08/29/13 10/06/18 History Lisinopril [Zestril] 40 mg PO BID 08/29/13 10/06/18 History Gabapentin [Neurontin] 600 mg PO BID@1000,1400 cap 09/15/16 10/06/18 Rx Pregabalin [Lyrica] 50 mg PO TID@1000,1400,2200 09/29/16 10/06/18 History Gabapentin [Neurontin] 900 mg PO HS@2200 12/16/17 10/06/18 History amLODIPine [Norvasc] 5 mg PO DAILY 07/23/18 10/06/18 History Atorvastatin Calcium [Lipitor] 10 mg PO DAILY 10/06/18 10/06/18 History HYDROcodone/APAP 7.5-325MG [[place] 1 tab PO Q6HR PRN 10/06/18 10/06/18 History 7.5-325] Ibuprofen 800 mg PO Q8H PRN 10/06/18 10/06/18 History Allergies Allergy/AdvReac Type Severity Reaction Status Date / Time Sulfa (Sulfonamide Allergy Rash/Hives Verified 10/06/18 14:24 Antibiotics) Physical Exam Vitals: Vital Signs Temp Pulse Pulse Resp BP BP Pulse Ox 10/07/18 14:20 98.9 F 83 15 99/63 98 10/07/18 07:18 97.9 F 80 15 92/59 94 L 10/07/18 04:28 16 10/07/18 01:19 98.8 F 81 17 103/56 97 10/06/18 23:49 16 10/06/18 20:38 97.9 F 89 18 123/77 93 L 10/06/18 19:14 97.3 F L 96 19 120/69 Intake and Output 10/07/18 10/07/18 10/07/18 06:59 14:59 22:59 Intake Total 800 1140 Output Total 675 Balance 125 1140 Intake: Intake, IV Titration 800 100 Amount Piperacillin-Tazobactam 3 100 .375 gm In Sodium Chloride 0.9% 100 ml @ 25 mls/hr IVPB Q8HR VENKAT Rx# :[id number] Sodium Chloride 0.9% 1, 800 000 ml @ 100 mls/hr IV . Q10H VENKAT Rx#:[id number] Oral 1040 Output: Urine 675 Other: Voiding Method Indwelling Catheter Indwelling Catheter Weight 146 kg - Constitutional General appearance: Present: average body habitus, cooperative, no acute distress - EENT Eyes: Present: anicteric sclerae, EOMI, PERRLA, normal appearance ENT: Present: hearing grossly normal, normal oropharynx Ears: bilateral: normal - Neck Neck: Present: normal ROM. Absent: lymphadenopathy, rigidity, thyromegaly Carotids: negative: bruit present Thyroid: bilateral: normal size, negative: enlarged, nodule - Respiratory Respiratory: bilateral: CTA, negative: rales, rhonchi, wheezing - Cardiovascular Rhythm: regular Heart sounds: normal: S1, S2 Abnormal Heart Sounds: Absent: systolic murmur, diastolic murmur - Gastrointestinal General gastrointestinal: Present: normal bowel sounds, soft. Absent: di stended, organomegaly, tenderness - Genitourinary Genitourinary Comment(s): deferred - Integumentary Integumentary: Present: normal turgor. Absent: jaundiced, rash, ulcer - Neurologic Neurologic: Present: CNII-XII intact. Absent: focal deficits - Musculoskeletal Musculoskeletal: Present: gait normal, strength equal bilaterally - Psychiatric Psychiatric: Present: A&O x's 3, appropriate affect, intact judgment & insight Results CBC & Chem 7: 10/07/18 08:15 10/07/18 08:15 Labs: Abnormal Lab Results - Last 24 Hours (Table) 10/06/18 10/06/18 10/06/18 Range/Units 14:58 14:58 14:58 WBC 13.8 H (3.8-10.6) k/uL RBC 3.68 L (3.80-5.40) m/uL Hgb 10.8 L (11.4-16.0) gm/dL Hct 33.6 L (34.0-46.0) % Neutrophils # 12.4 H (1.3-7.7) k/uL Lymphocytes # 0.6 L (1.0-4.8) k/uL APTT 33.9 H (22.0-30.0) sec Potassium 5.8 H (3.5-5.1) mmol/L Chloride 109 H (98-107) mmol/L Carbon Dioxide 18 L (22-30) mmol/L BUN 104 H* (7-17) mg/dL Creatinine 3.75 H (0.52-1.04) mg/dL Glucose 105 H (74-99) mg/dL Alkaline Phosphatase 130 H (38-126) U/L Urine Appearance (Clear) Urine Protein (Negative) Ur Leukocyte Esterase (Negative) Urine RBC (0-5) /hpf Urine WBC (0-5) /hpf Hyaline Casts (0-2) /lpf Urine Mucus (None) /hpf Urine Yeast (Budding) (None) /hpf 10/06/18 10/06/18 10/07/18 Range/Units 16:23 22:17 08:15 WBC (3.8-10.6) k/uL RBC (3.80-5.40) m/uL Hgb (11.4-16.0) gm/dL Hct (34.0-46.0) % Neutrophils # (1.3-7.7) k/uL Lymphocytes # (1.0-4.8) k/uL APTT (22.0-30.0) sec Potassium 5.2 H (3.5-5.1) mmol/L Chloride 114 H (98-107) mmol/L Carbon Dioxide 19 L (22-30) mmol/L BUN 82 H (7-17) mg/dL Creatinine 2.44 H (0.52-1.04) mg/dL Glucose (74-99) mg/dL Alkaline Phosphatase (38-126) U/L Urine Appearance Cloudy H (Clear) Urine Protein 1+ H (Negative) Ur Leukocyte Esterase Moderate H (Negative) Urine RBC 23 H (0-5) /hpf Urine WBC 13 H (0-5) /hpf Hyaline Casts 32 H (0-2) /lpf Urine Mucus Rare H (None) /hpf Urine Yeast (Budding) Many H (None) /hpf 10/07/18 Range/Units 08:15 WBC (3.8-10.6) k/uL RBC 3.07 L (3.80-5.40) m/uL Hgb 9.1 L D (11.4-16.0) gm/dL Hct 27.9 L (34.0-46.0) % Neutrophils # (1.3-7.7) k/uL Lymphocytes # (1.0-4.8) k/uL APTT (22.0-30.0) sec Potassium (3.5-5.1) mmol/L Chloride (98-107) mmol/L Carbon Dioxide (22-30) mmol/L BUN (7-17) mg/dL Creatinine (0.52-1.04) mg/dL Glucose (74-99) mg/dL Alkaline Phosphatase (38-126) U/L Urine Appearance (Clear) Urine Protein (Negative) Ur Leukocyte Esterase (Negative) Urine RBC (0-5) /hpf Urine WBC (0-5) /hpf Hyaline Casts (0-2) /lpf Urine Mucus (None) /hpf Urine Yeast (Budding) (None) /hpf Thrombosis Risk Factor Assmnt - Choose All That Apply Any of the Below Risk Factors Present?: Yes Each Risk Factor Represents 2 Points: Age 61-74 years Thrombosis Risk Factor Assessment Total Risk Factor Score: 2 Thrombosis Risk Factor Assessment Level: Low Risk Assessment and Plan Assessment: 1. Acute renal failure - Patient remains on IV fluids normal saline at rate of 100 mL an hour - We will monitor strict KATHYA's, daily weights, renal function and electrolytes - We will consult nephrology for further recommendations 2. Hyperkalemia secondary to 1 - Monitor electrolytes closely and treat as needed 3. Infected right heel decubitus ulcer - Patient started on Zosyn 3.375 g IV every 8 hours - We will continue until final culture results are available; consult ID for further recommendations 4. Hypertension; stable on home dose of Norvasc and lisinopril 5. Hypothyroidism; levothyroxin 100 MCG daily 6. Hyperlipidemia; atorvastatin 10 mg daily 7. DVT prophylaxis; SCDs CODE STATUS; full code Time with Patient: Greater than 30
[2018-10-07 19:04] LABS: Iron Saturation 13.74 (12.00-45.00)
--- NOTE | 2018-10-07 22:59 | P.CONS ---
History of Present Illness - Reason for Consult Consult date: 10/07/18 Infected ulcer Requesting physician: Moiz Daigle - Chief Complaint Weakness and no energy unable to stand - History of Present Illness Patient is a 63-year-old female with a past medical history significant for chronic nonhealing wound to the left heel area with the patient used to follow with Dr. Danielson at [facility] wound care center patient has been at the [facility] for the last few months and apparently Dr. Bergman was taking care of her wound on the patient was in the [place] [facility] the patient has just been [place] [facility] and presented to [facility] ER with chief complaints of weakness no energy and thought the wound to left heel has been getting worse patient be complaining of some chills but denies high-grade fever patient denies any worsening pain to the left foot area or any foul-smelling drainage she'll also have wound to the left posterior thigh with non-healing with but no other symptoms patient denies having chest pain did have some shortness of breath no cough no abdominal pain no nausea vomiting or any diarrhea patient on presentation did have mildly elevated white count of 13,000 she also have elevated BUN and creatinine the patient had been started on Zosyn with concern for possible left heel infected wound infection disease was consulted today for further recommendation regarding antibiotic therapy, Review of Systems Positive points has been mentioned in HPI rest of systems are negative Past Medical History Past Medical History: Hypertension, Osteoarthritis (OA), Skin Disorder, Thyroid Disorder Additional Past Medical History / Comment(s): UTI, neuropathy, anemia, umbilical hernia, WOUND LEFT HEEL,, breakdown lt foot goes to [facility], stress incont of urine, 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 Patient denies any medical marijuana, marijuana, street drug or alcohol use. She worked in the past as a nurse at [employer]. Past Drug Use History: None Reported - Past Family History Father Family Medical History: Cancer, Coronary Artery Disease (CAD), Myocardial Infarction (OR), Prostate Disorder Additional Family Medical History / Comment(s): Prostate CA Mother Family Medical History: Cancer, CVA/TIA, Hyperlipidemia Additional Family Medical History / Comment(s): Lung CA-left lobe removed Medications and Allergies Home Medications Medication Instructions Recorded Confirmed Type Levothyroxine Sodium [Synthroid] 100 mcg PO DAILY 08/29/13 10/06/18 History Lisinopril [Zestril] 40 mg PO BID 08/29/13 10/06/18 History Gabapentin [Neurontin] 600 mg PO BID@1000,1400 cap 09/15/16 10/06/18 Rx Pregabalin [Lyrica] 50 mg PO TID@1000,1400,2200 09/29/16 10/06/18 History Gabapentin [Neurontin] 900 mg PO HS@2200 12/16/17 10/06/18 History amLODIPine [Norvasc] 5 mg PO DAILY 07/23/18 10/06/18 History Atorvastatin Calcium [Lipitor] 10 mg PO DAILY 10/06/18 10/06/18 History HYDROcodone/APAP 7.5-325MG [[place] 1 tab PO Q6HR PRN 10/06/18 10/06/18 History 7.5-325] Ibuprofen 800 mg PO Q8H PRN 10/06/18 10/06/18 History Allergies Allergy/AdvReac Type Severity Reaction Status Date / Time Sulfa (Sulfonamide Allergy Rash/Hives Verified 10/06/18 14:24 Antibiotics) Physical Exam Vitals: Vital Signs Temp Pulse Pulse Resp BP BP Pulse Ox 10/07/18 14:20 98.9 F 83 15 99/63 98 10/07/18 07:18 97.9 F 80 15 92/59 94 L 10/07/18 04:28 16 10/07/18 01:19 98.8 F 81 17 103/56 97 10/06/18 23:49 16 10/06/18 20:38 97.9 F 89 18 123/77 93 L 10/06/18 19:14 97.3 F L 96 19 120/69 Intake and Output 10/07/18 10/07/18 10/07/18 06:59 14:59 22:59 Intake Total 800 1140 Output Total 675 1000 Balance 125 1140 -1000 Intake: Intake, IV Titration 800 100 Amount Piperacillin-Tazobactam 3 100 .375 gm In Sodium Chloride 0.9% 100 ml @ 25 mls/hr IVPB Q8HR VENKAT Rx# :[id number] Sodium Chloride 0.9% 1, 800 000 ml @ 100 mls/hr IV . Q10H VENKAT Rx#:[id number] Oral 1040 Output: Urine 675 1000 Other: Voiding Method Indwelling Catheter Indwelling Catheter Weight 146 kg 146 kg GENERAL DESCRIPTION: Middle-aged female lying in bed, no distress. No tachypnea or accessory muscle of respiration use. HEENT: Shows Pallor , no scleral icterus. Oral mucous membrane is dry. No pharyngeal erythema or thrush NECK: Trachea central, no thyromegaly. LUNGS: Unlabored breathing. Decreased breath sound at the base. No wheeze or crackle. HEART: S1, S2, regular rate and rhythm. No loud murmur ABDOMEN: Soft, no tenderness , guarding or rigidity, no organomegaly EXTREMITIES: Left heel wound with some necrotic tissue no surrounding swelling no foul-smelling drainage Patient also has a wound to the left posterior thigh area and one of the folds with no slough tissue no surrounding erythema or any drainage SKIN: No rash, no masses palpable. NEUROLOGICAL: The patient is awake, alert, oriented x3, mood and affect normal Results CBC & Chem 7: 10/07/18 08:15 10/07/18 08:15 Labs: Abnormal Lab Results - Last 24 Hours (Table) 10/06/18 10/07/18 10/07/18 Range/Units 22:17 08:15 08:15 RBC 3.07 L (3.80-5.40) m/uL Hgb 9.1 L D (11.4-16.0) gm/dL Hct 27.9 L (34.0-46.0) % Potassium 5.2 H (3.5-5.1) mmol/L Chloride 114 H (98-107) mmol/L Carbon Dioxide 19 L (22-30) mmol/L BUN 82 H (7-17) mg/dL Creatinine 2.44 H (0.52-1.04) mg/dL Assessment and Plan Assessment: 1-patient with a chronic nonhealing wound to the left heel area for a few months now wound currently did have slightly necrotic area that would benefit from surgical debridement no significant surrounding erythema or any foul-smelling drainage have been suspicious for secondary infection 2-left posterior thigh/leg fold wound with no slough tissue or cellulitis 3-positive UA underlying UTI not entirely excluded (1) Decubitus ulcer of foot Current Visit: Yes Status: Acute Code(s): L89.899 - PRESSURE ULCER OF OTHER SITE, UNSPECIFIED STAGE SNOMED Code(s): 835386249 (2) UTI (urinary tract infection) Current Visit: No Status: Acute Code(s): N39.0 - URINARY TRACT INFECTION, SITE NOT SPECIFIED SNOMED Code(s): 68751005 Plan: 1-we'll recommend consultation with Dr. Danielson for possible surgical debridement of her left heel wound 2-for now dry protective dressing and keep the area of the pressure 3-left posterior thigh wound will be treated with Aquacel silver dressing to be changed every 48 hour 4-patient antibiotics will be adjusted to cefepime to cover for urinary tract infection we will follow up on clinical condition and cultures to further adjust medicati on if needed Thank you for this consultation will follow this patient along with you Time with Patient: Greater than 30
[2018-10-08] MEDS: SODIUM CHLORIDE 0.9% 1,000 ML IV SCH (05:12)
[2018-10-08] MEDS: LEVOTHYROXINE 100 MCG TAB PO SCH (06:13)
[2018-10-08] MEDS: amLODIPine 5 MG TAB PO SCH (08:18)
[2018-10-08] MEDS: ATORVASTATIN 10 MG TAB PO SCH (08:18)
[2018-10-08] MEDS: PREGABALIN 50 MG CAP PO SCH ×3 (08:18→21:54)
[2018-10-08] MEDS: HYDROcodone/APAP 7.5-325MG 1 EACH TAB PO PRN ×3 (08:18→21:54)
[2018-10-08] MEDS: CEFEPIME 1 GM in SODIUM CHLORIDE 0.9% 50 ML IVPB SCH ×2 (08:18→23:14)
[2018-10-08 08:51] LABS: Calcium 9.4 mg/dL (8.4-10.2); Potassium 4.7 mmol/L (3.5-5.1)
--- NOTE | 2018-10-08 10:01 | PN ---
PROGRESS NOTE Patient is seen for followup for hyperkalemia and acute kidney injury, which appears to be mainly prerenal. Patient is maintained on IV fluids. Renal function has improved. Creatinine is down from 3.7 on admission to 2.4 yesterday. No labs available from today yet. PHYSICAL EXAMINATION: Patient is comfortable. Blood pressure 97/57, heart rate 68 per minute patient is afebrile. Examination of the heart S1, S2. Examination of the lungs, bilateral breath sounds are heard abdomen is soft, nontender. Exam of lower extremities shows chronic skin changes. No significant edema is noted. LABS: Labs are not available from today. ASSESSMENT: 1. Acute kidney injury, nonoliguric, currently improved. Etiology is nonsteroidal anti-inflammatory agents and hypotension with use of VALENTÍN inhibitors, maintained on IV fluids. 2. Hyperkalemia associated acute kidney injury and use of VALENTÍN inhibitors and nonsteroidal anti-inflammatory agents, currently improved. 3. Mild metabolic acidosis secondary to renal failure. 4. Anemia, rule out iron deficiency. PLAN: Continue to hold off on VALENTÍN inhibitors. Check labs from today and patient will need followup as outpatient. Her previous creatinine was 0.6 on 09/22/2018. MMODL / IJN: [id number] /
[2018-10-08 10:49] LABS: Basophils % (A) 0 %; Eosinophils # (A) 0.1 k/uL (0-0.7); Eosinophils % (A) 2 %; HCT 29.8 % (34.0-46.0); HGB 9.3 gm/dL (11.4-16.0); Hypochromasia Slight; Lymphocytes # (A) 0.7 k/uL (1.0-4.8); Lymphocytes % (A) 13 %; MCH 29.1 pg (25.0-35.0); MCHC 31.3 g/dL (31.0-37.0); Mean Platelet Volume 9.2; Monocytes # (A) 0.3 k/uL (0-1.0); Monocytes % (A) 7 %; Neutrophils # (A) 3.9 k/uL (1.3-7.7); Neutrophils % (A) 76 %; Platelet Count 187 k/uL (150-450); WBC 5.2 k/uL (3.8-10.6)
--- NOTE | 2018-10-08 13:05 | PN ---
PROGRESS NOTE DATE OF SERVICE: 10/08/2018 REASON FOR FOLLOWUP: 1. Left heel pressure ulcer with possible cellulitis. 2. Left posterior leg thigh wound. No cellulitis. 3. UTI. INTERVAL HISTORY: The patient is currently afebrile. Patient is breathing comfortably. Denies having any chest pain. No abdominal pain or any worsening pain to the left heel area, no diarrhea. PHYSICAL EXAMINATION: Blood pressure is 97/57 with a pulse of 68, temperature 98.5. she is 96% on room air. General description is a middle-aged female, lying in bed in no distress. RESPIRATORY SYSTEM: Unlabored breathing, clear to auscultation anteriorly HEART: S1, S2. Regular rate and rhythm. ABDOMEN: Soft, no tenderness. The left heel did have a wound with some necrosis. Minimal surrounding redness and no drainage. LABS: Hemoglobin 9.1, white count 5.2, BUN of 54, creatinine 1.44. Urine cultures currently pending. DIAGNOSTIC IMPRESSION/PLAN: 1. Patient admitted to the hospital with generalized weakness in this patient who did have a chronic nonhealing wound to the left heel area with some necrotic changes. Currently waiting for the Vascular Surgery evaluation and primary possibility of culture. 2. Left posterior thigh wound. Local wound care with Aquacel Silver, which is q.48 hours. 3. Urinary tract infection, currently covered with cefepime. waiting for the culture to finalize Continue supportive care. MMODL / IJN: [id number] / JERRY
--- NOTE | 2018-10-08 15:20 | CONS ---
CONSULTATION Patient is well known to me from the Wound Clinic. Patient has a history of obesity, chronic venous hypertension, peripheral vascular disease. She has been seen in the Wound Clinic on a regular basis. She has been admitted with medical issues including hyperkalemia. Patient has a pressure ulcer left heel with necrotic skin edges noted which needs debridement. PHYSICAL EXAMINATION: Patient was seen in her room. She is lying comfortably in bed. NECK: Supple. CHEST: Clear to auscultation. ABDOMEN: Soft. Femorals are 1+. The patient has a pressure ulcer left heel with some skin edges and necrotic which needs debridement. PLAN: Debridement of the wound. IV antibiotic. Local wound care. Follow with you. Thank you very much. When discharged from the hospital. Patient will follow up in the Wound Clinic. MMODL / IJN: [id number] /
[2018-10-08] MEDS: SODIUM CHLORIDE 0.45% 1,000 ML IV SCH (15:24)
--- NOTE | 2018-10-08 15:32 | PCN ---
PROCEDURE NOTE PREOP DIAGNOSIS: Pressure ulcer left heel. PROCEDURE: Superficial debridement of the wound, left heel. Measurement is 5 x 4 cm. This patient is known to me from the Wound Clinic. Patient has history of neuropathy. Patient has a pressure ulcer left heel. Using sharp scissor we did a superficial debridement of the left heel. All the necrotic tissue was removed. No active bleeding was noted. Tissue was sent for culture and sensitivity. PLAN: We continue with Aquacel Silver, which will be changed every 48 hours and patient will IV antibiotic under Infectious Disease. The patient goes home. I will follow up in the Wound Clinic on Thursday. MMODL / IJN: [id number] /
--- NOTE | 2018-10-08 19:11 | P.PN ---
Subjective Progress Note Date: 10/08/18 Principal diagnosis: Altered mental status Acute renal failure Infected right heel decubitus ulcer Patient is a 63-year-old female with a past medical history significa nt for chronic nonhealing wound to the left heel area with the patient used to follow with Dr. Danielson at [facility] wound care center patient has been at the [facility] for the last few months and apparently Dr. Bergman was taking care of her wound on the [facility] was in the [facility] the patient has just been discharged from the prison and presented to [facility] ER with chief complaints of weakness no energy and thought the wound to left heel has been getting worse patient be complaining of some chills but denies high-grade fever patient denies any worsening pain to the left foot area or any foul-smelling drainage she'll also have wound to the left posterior thigh with non-healing with but no other symptoms patient denies having chest pain did have some shortness of breath no cough no abdominal pain no nausea vomiting or any diarrhea patient on presentation did have mildly elevated white count of 13,000 she also have elevated BUN and creatinine the patient had been started on Zosyn with concern for possible left heel infected wound infection disease was co nsulted today for further recommendation regarding antibiotic therapy, Objective - Vital Signs Vital signs: Vital Signs Temp 98.5 F 10/08/18 06:45 Pulse 68 10/08/18 06:45 Resp 16 10/08/18 06:45 BP 97/57 10/08/18 06:45 Pulse Ox 96 10/08/18 06:45 Intake & Output 10/07/18 10/08/18 10/08/18 18:59 06:59 18:59 Intake Total 1140 700 Output Total 1600 1900 Balance -460 -1200 Weight 146 kg 145 kg Intake: Intake, IV Titration 100 Amount Piperacillin-Tazobactam 3 100 .375 gm In Sodium Chloride 0.9% 100 ml @ 25 mls/hr IVPB Q8HR VENKAT Rx# :[id number] Oral 1040 700 Output: Urine 1600 1900 Other: Voiding Method Indwelling Catheter Indwelling Catheter Indwelling Catheter # Bowel Movements 2 - Exam - Constitutional General appearance: Present: average body habitus, cooperative, no acute distress - EENT Eyes: Present: anicteric sclerae, EOMI, PERRLA, normal appearance ENT: Present: hearing grossly normal, normal oropharynx Ears: bilateral: normal - Neck Neck: Present: normal ROM. Absent: lymphadenopathy, rigidity, thyromegaly Carotids: negative: bruit present Thyroid: bilateral: normal size, negative: enlarged, nodule - Respiratory Respiratory: bilateral: CTA, negative: rales, rhonchi, wheezing - Cardiovascular Rhythm: regular Heart sounds: normal: S1, S2 Abnormal Heart Sounds: Absent: systolic murmur, diastolic murmur - Gastrointestinal General gastrointestinal: Present: normal bowel sounds, soft. Absent: distended, organomegaly, tenderness - Genitourinary Genitourinary Comment(s): deferred - Integumentary Integumentary: Present: normal turgor. Absent: jaundiced, rash, ulcer - Neurologic Neurologic: Present: CNII-XII intact. Absent: focal deficits - Musculoskeletal Musculoskeletal: Present: gait normal, strength equal bilaterally - Psychiatric Psychiatric: Present: A&O x's 3, appropriate affect, intact judgment & insight - Labs CBC & Chem 7: 10/08/18 08:23 10/08/18 08:23 Labs: Abnormal Lab Results - Last 24 Hours (Table) 10/07/18 10/08/18 10/08/18 Range/Units 08:15 08:23 08:23 RBC 3.20 L (3.80-5.40) m/uL Hgb 9.3 L (11.4-16.0) gm/dL Hct 29.8 L (34.0-46.0) % Lymphocytes # 0.7 L (1.0-4.8) k/uL Sodium 147 H (137-145) mmol/L Chloride 118 H (98-107) mmol/L BUN 55 H (7-17) mg/dL Creatinine 1.44 H (0.52-1.04) mg/dL Iron 29 L (50-170) ug/dL TIBC 211 L (228-460) ug/dL Microbiology - Last 24 Hours (Table) 10/06/18 14:58 Blood Culture - Preliminary Blood No Growth after 24 hours Assessment and Plan Assessment: 1. Acute renal failure - Patient remains on IV fluids normal saline at rate of 100 mL an hour - We will monitor strict KATHYA's, daily weights, renal function and electrolytes - We will consult nephrology for further recommendations 2. Hyperkalemia secondary to 1 - Monitor electrolytes closely and treat as needed 3. Infected right heel decubitus ulcer - Patient started on Zosyn 3.375 g IV every 8 hours - We will continue until final culture results are available; consult ID for further recommendations 4. Hypertension; stable on home dose of Norvasc and lisinopril 5. Hypothyroidism; levothyroxin 100 MCG daily 6. Hyperlipidemia; atorvastatin 10 mg daily 7. DVT prophylaxis; SCDs CODE STATUS; full code
[2018-10-09] MEDS: SODIUM CHLORIDE 0.45% 1,000 ML IV SCH ×3 (01:59→17:16)
[2018-10-09] MEDS: CEFEPIME 1 GM in SODIUM CHLORIDE 0.9% 50 ML IVPB SCH ×2 (07:56→20:11)
[2018-10-09] MEDS: HYDROcodone/APAP 7.5-325MG 1 EACH TAB PO PRN ×3 (07:56→20:17)
[2018-10-09] MEDS: PREGABALIN 50 MG CAP PO SCH ×3 (07:57→20:11)
[2018-10-09] MEDS: LEVOTHYROXINE 100 MCG TAB PO SCH (07:57)
[2018-10-09] MEDS: amLODIPine 5 MG TAB PO SCH (07:57)
[2018-10-09] MEDS: ATORVASTATIN 10 MG TAB PO SCH (07:57)
[2018-10-09 08:09] LABS: Basophils % (A) 0 %; Eosinophils # (A) 0.1 k/uL (0-0.7); Eosinophils % (A) 2 %; HCT 28.4 % (34.0-46.0); HGB 8.9 gm/dL (11.4-16.0); Hypochromasia Slight; Lymphocytes # (A) 0.7 k/uL (1.0-4.8); Lymphocytes % (A) 12 %; MCHC 31.3 g/dL (31.0-37.0); MCV 92.6 fL (80.0-100.0); Mean Platelet Volume 8.3; Monocytes # (A) 0.3 k/uL (0-1.0); Monocytes % (A) 6 %; Neutrophils # (A) 4.3 k/uL (1.3-7.7); Neutrophils % (A) 78 %; Platelet Count 194 k/uL (150-450); RBC 3.07 m/uL (3.80-5.40); RDW 14.2 % (11.5-15.5); WBC 5.6 k/uL (3.8-10.6)
[2018-10-09 08:28] LABS: Calcium 9.1 mg/dL (8.4-10.2); Potassium 4.6 mmol/L (3.5-5.1)
--- NOTE | 2018-10-09 09:50 | P.PN ---
Subjective Progress Note Date: 10/09/18 Principal diagnosis: This is a 63-year-old female who was discharged from retirement to home recently but came back to the hospital because of feeling very weak. On admission she was found to be in acute kidney injury, hyperkalemia from Yaya inhibitors, nonsteroidals and hypotension. Additionally she had an infected heel sore. She was started on antibiotics. She was given IV fluid and her Yaya inhibitors and nonsteroidals were discontinued. Ultrasound shows 10.7 cm and 10.6 cm right and left kidney no hydronephrosis. Currently She is complaining of nausea poor appetite. Also diarrhea starting yesterday several stools. No abdominal pain. No dizziness no cough shortness of breath. Her intake is 2490 output is 4300 Objective - Vital Signs Vital signs: Vital Signs Temp 98.2 F 10/09/18 08:00 Pulse 70 10/09/18 08:00 Resp 16 10/09/18 08:00 BP 133/74 10/09/18 08:00 Pulse Ox 96 10/09/18 08:00 Intake & Output 10/08/18 10/09/18 10/09/18 18:59 06:59 18:59 Intake Total 1950 540 180 Output Total 1900 2400 Balance 50 -1860 180 Weight 141.5 kg Intake: Intake, IV Titration 450 Amount Cefepime 1 gm In Sodium 50 Chloride 0.9% 50 ml @ 100 mls/hr IVPB Q12HR VENKAT Rx #:[id number] Sodium Chloride 0.9% 1, 400 000 ml @ 100 mls/hr IV . Q10H VENKAT Rx#:[id number] Oral 1500 540 180 Output: Urine 1900 2400 Other: Voiding Method Indwelling Catheter Indwelling Catheter # Bowel Movements 2 On examination she is awake alert oriented comfortable. HEENT exam no JVP neck is supple no facial asymmetry Lungs are clear to auscultation good air entry bilaterally. Heart sounds are unremarkable for any murmur rub gallop Abdomen soft nontender tender. Extremity exam was chronic skin scaliness and coarse skin but only trace edema. Her left foot and lower legs are wrapped in bandages. Neurologically awake alert oriented. She says she does not use the left foot for walking. - Labs CBC & Chem 7: 10/09/18 07:21 10/09/18 07:21 Labs: Abnormal Lab Results - Last 24 Hours (Table) 10/08/18 10/09/18 10/09/18 Range/Units 08:23 07:21 07:21 RBC 3.20 L 3.07 L (3.80-5.40) m/uL Hgb 9.3 L 8.9 L (11.4-16.0) gm/dL Hct 29.8 L 28.4 L (34.0-46.0) % Lymphocytes # 0.7 L 0.7 L (1.0-4.8) k/uL Sodium 146 H (137-145) mmol/L Chloride 119 H (98-107) mmol/L BUN 29 H (7-17) mg/dL Microbiology - Last 24 Hours (Table) 10/08/18 15:07 Gram Stain - Preliminary Foot - Left Wound Culture - Preliminary 10/08/18 15:07 Anaerobic Culture - Preliminary Heel - Left 10/06/18 14:58 Blood Culture - Preliminary Blood No Growth after 48 hours Assessment and Plan Plan: Impression 1. Acute kidney injury from combination of low blood pressure Yaya inhibitors and nonsteroidals. Creatinine improved from 3.75-0.9 this morning She is on IV fluids. 2. Hyperkalemia improved. Etiology is Yaya inhibitors and nonsteroidals and acute kidney injury. Potassium is 4.6 3. Mild degree of gap acidosis resolved bicarb is 23. 4. Anemia hemoglobin is down from 10.8-8.9 possibly an element of hydration. Iron saturation 13%. Cause of low iron not clear. Recommendation. 1. Maintain IV fluids currently on 100 MLS per minute (reduce it to 50 mL. 2. Suggest IV Ferrlecit 1 dose, 3. and start ferrous sulfate 325 twice a day. 4. Monitor hemoglobin. 5. Workup and deficiency
[2018-10-09] MEDS ORDERED: SODIUM FERRIC GLUCONAT-SUCROSE 125 MG in SODIUM CHLORIDE 0.9% 100 ML IVPB ONE (10:00)
[2018-10-09] MEDS: FERROUS SULFATE 325 MG TAB PO SCH (17:13)
--- NOTE | 2018-10-09 17:26 | P.PN ---
Subjective Progress Note Date: 10/09/18 Principal diagnosis: Altered mental status Acute renal failure Infected right heel decubitus ulcer Patient is a 63-year-old female with a past medical history significa nt for chronic nonhealing wound to the left heel area with the patient used to follow with Dr. Danielson at [facility] wound care center patient has been at the [facility] for the last few months and apparently Dr. Bergman was taking care of her wound on the patient was in the [facility] the patient has just been discharged from the [facility] and presented to [facility] ER with chief complaints of weakness no energy and thought the wound to left heel has been getting worse patient be complaining of some chills but denies high-grade fever patient denies any worsening pain to the left foot area or any foul-smelling drainage she'll also have wound to the left posterior thigh with non-healing with but no other symptoms patient denies having chest pain did have some shortness of breath no cough no abdominal pain no nausea vomiting or any diarrhea patient on presentation did have mildly elevated white count of 13,000 she also have elevated BUN and creatinine the patient had been started on Zosyn with concern for possible left heel infected wound infection disease was co nsulted today for further recommendation regarding antibiotic therapy, 10/09/2018 Patient is seen and evaluated in room at bedside; patient voices no specific complaints; labs were reviewed showing a sodium of 146 which is improved from 147 yesterday; BUN/creatinine is improved from 29/0.9-55/1.44; patient underwent debridement of left heel at bedside; has been having loose stools since yesterday and stool was sent for C. diff toxin; antibiotics have been switched to IV cefepime per ID recommendations for treatment of fourth left heel ulcer and UTI Objective - Vital Signs Vital signs: Vital Signs Temp 98.2 F 10/09/18 08:00 Pulse 70 10/09/18 08:00 Resp 16 10/09/18 08:00 BP 133/74 10/09/18 08:00 Pulse Ox 96 10/09/18 08:00 Intake & Output 10/08/18 10/09/18 10/09/18 18:59 06:59 18:59 Intake Total 1950 540 180 Output Total 1900 2400 Balance 50 -1860 180 Weight 141.5 kg Intake: Intake, IV Titration 450 Amount Cefepime 1 gm In Sodium 50 Chloride 0.9% 50 ml @ 100 mls/hr IVPB Q12HR VENKAT Rx #:[id number] Sodium Chloride 0.9% 1, 400 000 ml @ 100 mls/hr IV . Q10H VENKAT Rx#:[id number] Oral 1500 540 180 Output: Urine 1900 2400 Other: Voiding Method Indwelling Catheter Indwelling Catheter Indwelling Catheter # Bowel Movements 2 - Exam - Constitutional General appearance: Present: average body habitus, cooperative, no acute dis tress - EENT Eyes: Present: anicteric sclerae, EOMI, PERRLA, normal appearance ENT: Present: hearing grossly normal, normal oropharynx Ears: bilateral: normal - Neck Neck: Present: normal ROM. Absent: lymphadenopathy, rigidity, thyromegaly Carotids: negative: bruit present Thyroid: bilateral: normal size, negative: enlarged, nodule - Respiratory Respiratory: bilateral: CTA, negative: rales, rhonchi, wheezing - Cardiovascular Rhythm: regular Heart sounds: normal: S1, S2 Abnormal Heart Sounds: Absent: systolic murmur, diastolic murmur - Gastrointestinal General gastrointestinal: Present: normal bowel sounds, soft. Absent: distended, organomegaly, tenderness - Genitourinary Genitourinary Comment(s): deferred - Integumentary Integumentary: Present: normal turgor. Absent: jaundiced, rash, ulcer - Neurologic Neurologic: Present: CNII-XII intact. Absent: focal deficits - Musculoskeletal Musculoskeletal: Present: gait normal, strength equal bilaterally - Psychiatric Psychiatric: Present: A&O x's 3, appropriate affect, intact judgment & insight - Labs CBC & Chem 7: 10/09/18 07:21 10/09/18 07:21 Labs: Abnormal Lab Results - Last 24 Hours (Table) 10/09/18 10/09/18 Range/Units 07:21 07:21 RBC 3.07 L (3.80-5.40) m/uL Hgb 8.9 L (11.4-16.0) gm/dL Hct 28.4 L (34.0-46.0) % Lymphocytes # 0.7 L (1.0-4.8) k/uL Sodium 146 H (137-145) mmol/L Chloride 119 H (98-107) mmol/L BUN 29 H (7-17) mg/dL Microbiology - Last 24 Hours (Table) 10/08/18 15:07 Gram Stain - Preliminary Foot - Left Wound Culture - Preliminary 10/08/18 15:07 Anaerobic Culture - Preliminary Heel - Left 10/06/18 14:58 Blood Culture - Preliminary Blood No Growth after 48 hours Assessment and Plan Assessment: 1. Acute renal failure - Patient remains on IV fluids normal saline at rate of 100 mL an hour - We will monitor strict KATHYA's, daily weights, renal function and electrolytes - We will consult nephrology for further recommendations 2. Hyperkalemia secondary to 1 - Monitor electrolytes closely and treat as needed 3. Infected right heel decubitus ulcer - Patient started on Zosyn 3.375 g IV every 8 hours - We will continue until final culture results are available; consult ID for further recommendations 4. Hypertension; stable on home dose of Norvasc and lisinopril 5. Hypothyroidism; levothyroxin 100 MCG daily 6. Hyperlipidemia; atorvastatin 10 mg daily 7. DVT prophylaxis; SCDs CODE STATUS; full code Time with Patient: Greater than 30
[2018-10-10] MEDS ORDERED: SODIUM CHLORIDE 0.9% 1,000 ML IV SCH (01:45)
[2018-10-10] MEDS: HYDROcodone/APAP 7.5-325MG 1 EACH TAB PO PRN ×2 (05:39→13:31)
[2018-10-10] MEDS: LEVOTHYROXINE 100 MCG TAB PO SCH (05:39)
[2018-10-10] MEDS ORDERED: SODIUM CHLORIDE 0.45% 1,000 ML IV ONE (05:41)
[2018-10-10 07:32] LABS: Basophils % (A) 0 %; Eosinophils # (A) 0.1 k/uL (0-0.7); Eosinophils % (A) 2 %; HCT 28.5 % (34.0-46.0); HGB 9.3 gm/dL (11.4-16.0); Hypochromasia Slight; Lymphocytes # (A) 0.6 k/uL (1.0-4.8); Lymphocytes % (A) 12 %; MCH 30.1 pg (25.0-35.0); MCHC 32.8 g/dL (31.0-37.0); Mean Platelet Volume 8.4; Monocytes # (A) 0.2 k/uL (0-1.0); Monocytes % (A) 5 %; Neutrophils # (A) 3.6 k/uL (1.3-7.7); Neutrophils % (A) 78 %; Platelet Count 182 k/uL (150-450); RDW 14.1 % (11.5-15.5); WBC 4.6 k/uL (3.8-10.6)
[2018-10-10] MEDS: amLODIPine 5 MG TAB PO SCH (07:38)
[2018-10-10] MEDS: ATORVASTATIN 10 MG TAB PO SCH (07:38)
[2018-10-10] MEDS: PREGABALIN 50 MG CAP PO SCH ×3 (07:38→20:19)
[2018-10-10] MEDS: FERROUS SULFATE 325 MG TAB PO SCH ×2 (07:38→15:15)
[2018-10-10] MEDS: CEFEPIME 1 GM in SODIUM CHLORIDE 0.9% 50 ML IVPB SCH ×2 (07:39→20:19)
[2018-10-10 07:46] LABS: African American GFR (CKD) >90 (>60 ml/min/1.73 sqM); Anion Gap 5 mmol/L; Blood Urea Nitrogen 17 mg/dL (7-17); Calcium 9.1 mg/dL (8.4-10.2); Carbon Dioxide 22 mmol/L (22-30); Chloride 118 mmol/L (98-107); Glucose 79 mg/dL (74-99); Potassium 4.7 mmol/L (3.5-5.1); Sodium 145 mmol/L (137-145)
--- NOTE | 2018-10-10 08:43 | P.PN ---
Subjective Progress Note Date: 10/10/18 Principal diagnosis: This is a 63-year-old female who [facility] but came back to the hospital because of feeling very weak. On admission she was found to be in acute kidney injury, hyperkalemia from Yaya inhibitors, nonsteroidals and hypotension. Additionally she had an infected heel sore. She was started on antibiotics. She was given IV fluid and her Yaya inhibitors and nonsteroidals were discontinued. Ultrasound shows 10.7 cm and 10.6 cm right and left kidney no hydronephrosis. Currently She is feeling much better. She had diarrhea which is continuing since yesterday. C. diff is negative. Off of the lisinopril blood pressures in the 130s to 140s. Urine output is documented at 16 74 mL Objective - Vital Signs Vital signs: Vital Signs Temp 97.9 F 10/10/18 07:00 Pulse 92 10/10/18 07:00 Resp 16 10/10/18 07:00 BP 141/72 10/10/18 07:00 Pulse Ox 98 10/10/18 07:00 Intake & Output 10/09/18 10/10/18 10/10/18 18:59 06:59 18:59 Intake Total 280 240 Output Total 900 774 Balance -620 -534 Weight 143 kg Intake: Oral 280 240 Output: Urine 900 774 Other: Voiding Method Indwelling Catheter Indwelling Catheter # Bowel Movements 1 On examination she is awake alert oriented HEENT exam no JVP, neck is supple no facial asymmetry Lungs are clear to auscultation fair air entry bilaterally Heart sounds are unremarkable no murmur rub gallop Abdomen soft nontender somewhat obese Extremity exam was chronic scaly skin but minimal edema Neurologically awake alert oriented. She is supposedly wheelchair bound for several months now because of issues with healing ulcer. - Labs CBC & Chem 7: 10/10/18 07:01 10/10/18 07:01 Labs: Abnormal Lab Results - Last 24 Hours (Table) 10/10/18 10/10/18 Range/Units 07:01 07:01 RBC 3.10 L (3.80-5.40) m/uL Hgb 9.3 L (11.4-16.0) gm/dL Hct 28.5 L (34.0-46.0) % Lymphocytes # 0.6 L (1.0-4.8) k/uL Chloride 118 H (98-107) mmol/L Microbiology - Last 24 Hours (Table) 10/06/18 14:58 Blood Culture - Preliminary Blood No Growth after 72 hours 10/08/18 15:07 Gram Stain - Preliminary Foot - Left Wound Culture - Preliminary Assessment and Plan Plan: Impression 1. Acute kidney injury from combination of low blood pressure Yaya inhibitors and nonsteroidals. With hydration and discontinuation off YAYA inhibitor's and nonsteroidals, her Creatinine improved from 3.75-0.78 this morning 2. Hyperkalemia improved. Etiology is Yaya inhibitors and nonsteroidals and acute kidney injury. Potassium is 4.7 3. Mild degree of gap acidosis resolved bicarb is 22. 4. Anemia, hemoglobin is down from 10.8>8.9>9.3 possibly an element of hydration. Iron saturation 13%. Cause of low iron not clear. She received 1 dose of Ferrlecit 125 mg yesterday 10/09/2089 Recommendation. 1. Discontinue IV fluids. 2. May resume small dose of lisinopril 10 mg a day supposedly at home she was on 40 mg a day Maintain IV fluids currently on 100 MLS per minute (reduce it to 50 mL. 3. Continue ferrous sulfate 325 twice a day. 4. Monitor hemoglobin. 5. Workup and deficiency
[2018-10-10] MEDS: LISINOPRIL 5 MG TAB PO SCH ×2 (09:14→20:19)
--- NOTE | 2018-10-10 14:20 | P.PN ---
Subjective Progress Note Date: 10/10/18 Principal diagnosis: Altered mental status Acute renal failure Infected right heel decubitus ulcer Patient is a 63-year-old female with a past medical history significa nt for chronic nonhealing wound to the left heel area with the patient used to follow with Dr. Danielson at [facility] wound care center patient has been at the [facility] for the last few months and apparently Dr. Bergman was taking care of her wound on the [facility] was in the [facility] the patient has just been [facility] from the [facility] and presented to [facility] ER with chief complaints of weakness no energy and thought the wound to left heel has been getting worse patient be complaining of some chills but denies high-grade fever patient denies any worsening pain to the left foot area or any foul-smelling drainage she'll also have wound to the left posterior thigh with non-healing with but no other symptoms patient denies having chest pain did have some shortness of breath no cough no abdominal pain no nausea vomiting or any diarrhea patient on presentation did have mildly elevated white count of 13,000 she also have elevated BUN and creatinine the patient had been started on Zosyn with concern for possible left heel infected wound infection disease was co nsulted today for further recommendation regarding antibiotic therapy, 10/09/2018 Patient is seen and evaluated in room at bedside; patient voices no specific complaints; labs were reviewed showing a sodium of 146 which is improved from 147 yesterday; BUN/creatinine is improved from 29/0.9-55/1.44; patient underwent debridement of left heel at bedside; has been having loose stools since yesterday and stool was sent for C. diff toxin; antibiotics have been switched to IV cefepime per ID recommendations for treatment of fourth left heel ulcer and UTI 10/10/2018 Patient is seen in room at bedside; denies any new complaints Vital signs remained stable with a temperature of 97.9, pulse 92, respirations 16 and blood pressure 141/72 White blood count of 4.6 with hemoglobin of 9.3; sodium 145 with a potassium of 4.7; BUN of 17 and creatinine of 0.78 improving from 2.66 upon admission; IV fluids have been discontinued by nephrology service and patient is restarted on low dose of lisinopril at 5 mg twice a day Patient's wound culture is positive for MRSA Patient is currently on IV cefepime for UTI and formed infection; we will add IV vancomycin with pharmacy dosing service; IDs following and will be making further recommendations on antibiotic therapy We will consult PT/OT for discharge planning Objective - Vital Signs Vital signs: Vital Signs Temp 97.9 F 10/10/18 07:00 Pulse 92 10/10/18 07:00 Resp 16 10/10/18 07:30 BP 141/72 10/10/18 07:00 Pulse Ox 98 10/10/18 07:00 Intake & Output 10/09/18 10/10/18 10/10/18 18:59 06:59 18:59 Intake Total 280 240 Output Total 900 774 Balance -620 -534 Weight 143 kg Intake: Oral 280 240 Output: Urine 900 774 Other: Voiding Method Indwelling Catheter Indwelling Catheter Indwelling Catheter # Bowel Movements 1 - Exam - Constitutional General appearance: Present: average body habitus, cooperative, no acute distres s - EENT Eyes: Present: anicteric sclerae, EOMI, PERRLA, normal appearance ENT: Present: hearing grossly normal, normal oropharynx Ears: bilateral: normal - Neck Neck: Present: normal ROM. Absent: lymphadenopathy, rigidity, thyromegaly Carotids: negative: bruit present Thyroid: bilateral: normal size, negative: enlarged, nodule - Respiratory Respiratory: bilateral: CTA, negative: rales, rhonchi, wheezing - Cardiovascular Rhythm: regular Heart sounds: normal: S1, S2 Abnormal Heart Sounds: Absent: systolic murmur, diastolic murmur - Gastrointestinal General gastrointestinal: Present: normal bowel sounds, soft. Absent: distended, organomegaly, tenderness - Genitourinary Genitourinary Comment(s): deferred - Integumentary Integumentary: Present: normal turgor. Absent: jaundiced, rash, ulcer - Neurologic Neurologic: Present: CNII-XII intact. Absent: focal deficits - Musculoskeletal Musculoskeletal: Present: gait normal, strength equal bilaterally - Psychiatric Psychiatric: Present: A&O x's 3, appropriate affect, intact judgment & insight - Labs CBC & Chem 7: 10/10/18 07:01 10/10/18 07:01 Labs: Abnormal Lab Results - Last 24 Hours (Table) 10/10/18 10/10/18 Range/Units 07:01 07:01 RBC 3.10 L (3.80-5.40) m/uL Hgb 9.3 L (11.4-16.0) gm/dL Hct 28.5 L (34.0-46.0) % Lymphocytes # 0.6 L (1.0-4.8) k/uL Chloride 118 H (98-107) mmol/L Microbiology - Last 24 Hours (Table) 10/08/18 15:07 Gram Stain - Preliminary Foot - Left Wound Culture - Preliminary Presumptive MRSA 10/08/18 15:07 Anaerobic Culture - Preliminary Heel - Left 10/06/18 14:58 Blood Culture - Preliminary Blood No Growth after 72 hours Assessment and Plan Assessment: 1. Acute renal failure - Patient remains on IV fluids normal saline at rate of 100 mL an hour - We will monitor strict KATHYA's, daily weights, renal function and electrolytes - We will consult nephrology for further recommendations 2. Hyperkalemia secondary to 1 - Monitor electrolytes closely and treat as needed 3. Infected right heel decubitus ulcer - Patient started on Zosyn 3.375 g IV every 8 hours - We will continue until final culture results are available; consult ID for further recommendations 4. Hypertension; stable on home dose of Norvasc and lisinopril 5. Hypothyroidism; levothyroxin 100 MCG daily 6. Hyperlipidemia; atorvastatin 10 mg daily 7. DVT prophylaxis; SCDs CODE STATUS; full code Time with Patient: Greater than 30
[2018-10-10] MEDS ORDERED: VANCOMYCIN IV PER PHARMACY 1 EACH MISC MISCELLANE PRN (14:21)
[2018-10-10] MEDS: VANCOMYCIN 2,000 MG in SODIUM CHLORIDE 0.9% 500 ML 500 ML IVPB SCH (15:15)
[2018-10-10] MEDS: diphenhydrAMINE 50 MG/ML 1 ML VIAL IVP PRN (16:10)
[2018-10-11] MEDS: VANCOMYCIN 2,000 MG in SODIUM CHLORIDE 0.9% 500 ML 500 ML IVPB SCH ×2 (02:36→15:30)
[2018-10-11] MEDS: HYDROcodone/APAP 7.5-325MG 1 EACH TAB PO PRN ×2 (04:12→15:30)
[2018-10-11] MEDS: LEVOTHYROXINE 100 MCG TAB PO SCH (05:50)
[2018-10-11 07:46] LABS: Basophils % (A) 0 %; Eosinophils # (A) 0.2 k/uL (0-0.7); Eosinophils % (A) 3 %; HCT 29.1 % (34.0-46.0); HGB 9.8 gm/dL (11.4-16.0); Hypochromasia Slight; Lymphocytes # (A) 0.6 k/uL (1.0-4.8); Lymphocytes % (A) 9 %; MCH 30.2 pg (25.0-35.0); MCHC 33.5 g/dL (31.0-37.0); MCV 90.1 fL (80.0-100.0); Mean Platelet Volume 8.4; Monocytes # (A) 0.2 k/uL (0-1.0); Monocytes % (A) 3 %; Neutrophils # (A) 5.4 k/uL (1.3-7.7); Neutrophils % (A) 84 %; Platelet Count 167 k/uL (150-450); RBC 3.23 m/uL (3.80-5.40); RDW 13.9 % (11.5-15.5); WBC 6.4 k/uL (3.8-10.6)
[2018-10-11 07:55] LABS: African American GFR (CKD) >90 (>60 ml/min/1.73 sqM); Anion Gap 5 mmol/L; Blood Urea Nitrogen 12 mg/dL (7-17); Calcium 8.9 mg/dL (8.4-10.2); Carbon Dioxide 25 mmol/L (22-30); Chloride 115 mmol/L (98-107); Glucose 84 mg/dL (74-99); Potassium 4.3 mmol/L (3.5-5.1); Sodium 145 mmol/L (137-145)
[2018-10-11] MEDS: amLODIPine 5 MG TAB PO SCH (09:23)
[2018-10-11] MEDS: FERROUS SULFATE 325 MG TAB PO SCH ×2 (09:23→17:33)
[2018-10-11] MEDS: ATORVASTATIN 10 MG TAB PO SCH (09:23)
[2018-10-11] MEDS: CEFEPIME 1 GM in SODIUM CHLORIDE 0.9% 50 ML IVPB SCH ×2 (09:23→20:23)
[2018-10-11] MEDS: LISINOPRIL 5 MG TAB PO SCH ×2 (09:23→20:23)
[2018-10-11] MEDS: PREGABALIN 50 MG CAP PO SCH ×3 (09:23→20:23)
--- NOTE | 2018-10-11 10:23 | P.PN ---
Progress Note - Text Progress Note Date: 10/10/18 REASON FOR FOLLOWUP: 1. Left heel pressure ulcer with possible cellulitis. 2. Left posterior leg thigh wound. No cellulitis. 3. UTI. INTERVAL HISTORY: The patient remains to be afebrile. Patient is breathing comfortably. Denies having any chest pain. No abdominal pain or any worsening pain to the left heel area, patient did Have bedside deployment of the left heel pressure ulcer by Dr. Danielson with removal of necrotic tissue PHYSICAL EXAMINATION: Blood pressure is 124/71 with a pulse of 65, temperature 98. 3. she is 95 % on room air. General description is a middle-aged female, lying in bed in no distress. RESPIRATORY SYSTEM: Unlabored breathing, clear to auscultation anteriorly HEART: S1, S2. Regular rate and rhythm. ABDOMEN: Soft, no tenderness. The left heel wound and dressed with minimal drainage on the dressing LABS: Blood culture negative no urine culture done local wound culture with presumptive MRSA DIAGNOSTIC IMPRESSION/PLAN: 1. Patient admitted to the hospital with generalized weakness in this patient who did have a chronic nonhealing wound to the left heel area with some necrotic changes. Patient is status post debridement of this wound local wound culture with presented to MRSA Patient returned on vancomycin will be continued we'll monitor kidney function closely. 2. Left posterior thigh wound. Local wound care with Aquacel Silver, which is q.48 hours. 3. Urinary tract infection, currently covered with cefepime. If cultures remain negative to discontinue cefepime
--- NOTE | 2018-10-11 10:41 | P.PN ---
Subjective Patient is seen in follow-up for acute kidney injury. GFR is now back to baseline. She's not able to tolerate much oral intake. Patient states she has diarrhea every time she eats. She is a Cobos catheter. Urine output is good. No vomiting. Denies chest pain or shortness of breath. Vital signs are stable. General: The patient appeared well nourished and normally developed. HEENT: Head exam is unremarkable. Neck is without jugular venous distension. LUNGS: Lungs are clear to auscultation and percussion. Breath sounds decreased. HEART: Rate and Rhythm are regular. First and second heart sounds normal. No murmurs, rubs or gallops. ABDOMEN: Abdominal exam reveals normal bowel sounds. Non-tender and non- distended. No evidence of peritonitis. EXTREMITITES: Chronic skin changes noted. No obvious drainage. Objective - Vital Signs Vital signs: Vital Signs Temp 98.1 F 10/11/18 07:00 Pulse 63 10/11/18 07:00 Resp 16 10/11/18 07:00 BP 122/71 10/11/18 07:00 Pulse Ox 97 10/11/18 07:00 Intake & Output 10/10/18 10/11/18 10/11/18 18:59 06:59 18:59 Intake Total 360 240 Output Total 1220 1100 Balance -860 -1100 240 Weight 141 kg Intake: Oral 360 240 Output: Urine 1220 1100 Other: Voiding Method Indwelling Catheter Indwelling Catheter # Voids 1 # Bowel Movements 1 - Labs CBC & Chem 7: 10/11/18 07:23 10/11/18 07:23 Labs: Abnormal Lab Results - Last 24 Hours (Table) 10/11/18 10/11/18 Range/Units 07:23 07:23 RBC 3.23 L (3.80-5.40) m/uL Hgb 9.8 L (11.4-16.0) gm/dL Hct 29.1 L (34.0-46.0) % Lymphocytes # 0.6 L (1.0-4.8) k/uL Chloride 115 H (98-107) mmol/L Microbiology - Last 24 Hours (Table) 10/08/18 15:07 Gram Stain - Final Foot - Left Wound Culture - Final Methicillin resist S. aureus 10/06/18 14:58 Blood Culture - Preliminary Blood No Growth after 96 hours 10/08/18 15:07 Anaerobic Culture - Preliminary Heel - Left Assessment and Plan Plan: Assessment: 1. Acute kidney injury mostly prerenal secondary to hypotension and nonsteroidals. GFR now back to baseline. 2. Hyperkalemia secondary to acute kidney injury, nonsteroidals and VALENTÍN inhibitor use. Resolved. 3. Mild hypernatremia secondary to lack of oral water intake. 4. Anemia. No active bleeding noted. Rule out iron deficiency. 5. Benign hypertension. Controlled. 6. Left foot wound. Culture positive for MRSA. Maintained on IV antibiotics. Plan: Encourage oral intake, particularly water. Check iron studies. Avoid nephrotoxins. Repeat electrolytes in the morning.
[2018-10-11] MEDS: LOPERAMIDE 2 MG CAP PO PRN ×2 (12:07→17:33)
[2018-10-11 13:07] VITALS: BMI 47.2
--- NOTE | 2018-10-11 13:43 | CDI ---
Documentation Clarification Form Date: 10/11/2018 From: Gwen Lopez RN CCDS Admit Date: 10/06/2018 7:06:00 PM Patient Name: Darling Spicer Visit Number: [id number] Discharge Date: ATTENTION: The Clinical Documentation Specialists (CDI) and [facility] Coding Staff appreciate your assistance in clarifying documentation. Please respond to the clarification below the line at the bottom and electronically sign. The CDI & [facility] Coding staff will review the response and follow-up if needed. Please note: Queries are made part of the Legal Health Record. If you have any questions, please contact the author of this message via ITS. Dr. Luis E Danielson Per your operative note, a debridement was performed on the left heel 10/08/2018 History/Risk Factors: 63 year old female presents to the ED via EMS after being at rehabilitation for wound care of left heel. Clinical Indicators: Medical history of HTN skin disorder. Treatment: Debridement Gel fiber with silvadene. Five elements required for accurate and compliant documentation of a debridement: * 1.Technique used (e.g., excisional, excised, cutting, etc.)___ * excisional * 2.Instrument(s) used (e.g., scalpel, curette, etc.) Scissor * 3.Nature of the tissue removed (e.g., necrotic, devitalized tissues, non- viable tissue, etc.) Necrotic * 4.Appearance and size of the wound (e.g., down to fresh bleeding tissue, 7cm x 10cm, etc.) 5x4 cm * 5.Depth of the debridement* (e.g., skin, subcutaneous tissue, fascia, muscle, bone, etc.) subcutaneous subcutaneous In order to capture the severity of condition and code the appropriate procedure; could you please document the following: * Excisional debridement (the removal of necrotic, devitalized tissue or slough by means of cutting away of tissue) * Non-excisional debridement (the removal of necrotic, devitalized tissue or slough by means of flushing, brushing, or washing. (Irrigation)Other; please specify * Unable to determine (Last Revision: July 2017) MTDD
--- NOTE | 2018-10-11 14:06 | CDI ---
Documentation Clarification Form Date: 10/11/2018 1:48:00 PM From: Gwen Lopez RN CCDS Admit Date: 10/06/2018 7:06:00 PM Patient Name: Darling Spicer Visit Number: [id number] Discharge Date: ATTENTION: The Clinical Documentation Specialists (CDI) and [facility] Coding Staff appreciate your assistance in clarifying documentation. Please respond to the clarification below the line at the bottom and electronically sign. The CDI & [facility] Coding staff will review the response and follow-up if needed. Please note: Queries are made part of the Legal Health Record. If you have any questions, please contact the author of this message via ITS. Dr. Thea Hernandez A Left lower buttock pressure ulcer was documented in the Nursing Assessment . History/Risk Factors: 63 year old female presents to ED via EMS after being at Rehabilitation for wound care of the left heel. Medical History HTN, Neuropathy, Left heel wound poa, left thigh wound poa. Clinical Indicators: Location: Left Lower Buttock Wound description: Pressure Injury POA; Stage IV; Length 9cm x 1cm x 1cm serosanguineous; small amount of drainage; foul odor; Treatment: Gel fiber w silvadene; gauze / sponge Consults: ID Elements for accurate and compliant documentation of an ulcer: *The location/laterality of the ulcer *Etiology (decubitus/pressure, diabetic, PVD) *Stage I-IV, Unstageable, Suspected Deep Tissue Injury (To the deepest stage) *If the ulcer was present at admission (POA) or occurred after admission In your professional opinion, can you please clarify the diagnosis, location, laterality and whether present on admission (POA): * Stage 1 Pressure/Decubitus Ulcer (intact skin, non-blanching redness of local area) * Stage 2 Pressure/Decubitus Ulcer (Partial thickness, loss of dermis, pink wound bed) * Stage 3 Pressure/Decubitus Ulcer (Full thickness tissue loss) * Stage 4 Pressure/Decubitus Ulcer (Full thickness tissue loss with exposed bone, tendon, or muscle. May have slough or eschar present) * Unstageable * Other condition, please specify * Unable to determine Please indicate etiology of pressure ulcer (if known). No evidence of a left gluteal wound , patient did have left upper thigh stage II pressure ulcer which has been documented already in my notes (Last Revision: January 2017) JTD
--- NOTE | 2018-10-11 14:14 | CDI ---
Documentation Clarification Form Date: 10/11/2018 2:06:42 PM From: Gwen Lopez RN CCDS Admit Date: 10/06/2018 7:06:00 PM Patient Name: Darling Spicer Visit Number: [id number] Discharge Date: ATTENTION: The Clinical Documentation Specialists (CDI) and [facility] Coding Staff appreciate your assistance in clarifying documentation. Please respond to the clarification below the line at the bottom and electronically sign. The CDI & [facility] Coding staff will review the response and follow-up if needed. Please note: Queries are made part of the Legal Health Record. If you have any questions, please contact the author of this message via ITS. Dr. Thea Hernandez A Coccyx pressure ulcer was documented in the Nursing Assessment. History/Risk Factors: 63 year old female presents to ED via EMS after being at Rehabilitation for wound care of the left heel. Medical History HTN, Neuropathy, Left Thigh Wound and Heel wound Clinical Indicators: Location: Coccyx, POA Wound description: Stage 2 ; Treatment: gel fiber with silvadene dry and intact Consults: ID Elements for accurate and compliant documentation of an ulcer: *The location/laterality of the ulcer *Etiology (decubitus/pressure, diabetic, PVD) *Stage I-IV, Unstageable, Suspected Deep Tissue Injury (To the deepest stage) *If the ulcer was present at admission (POA) or occurred after admission In your professional opinion, can you please clarify the diagnosis, location, laterality and whether present on admission (POA): * Stage 1 Pressure/Decubitus Ulcer (intact skin, non-blanching redness of local area) * Stage 2 Pressure/Decubitus Ulcer (Partial thickness, loss of dermis, pink wound bed) Unstageable * Other condition, please specify * Unable to determine Please indicate etiology of pressure ulcer (if known). No evidence of sacral wound (Last Revision: January 2017) MTDD
--- NOTE | 2018-10-11 14:35 | CDI ---
Documentation Clarification Form Date: 10/11/2018 2:21:01 PM From: Gwen Lopez RN CCDS Admit Date: 10/06/2018 7:06:00 PM Patient Name: Darling Spicer Visit Number: [id number] Discharge Date: ATTENTION: The Clinical Documentation Specialists (CDI) and [facility] Coding Staff appreciate your assistance in clarifying documentation. Please respond to the clarification below the line at the bottom and electronically sign. The CDI & [facility] Coding staff will review the response and follow-up if needed. Please note: Queries are made part of the Legal Health Record. If you have any questions, please contact the author of this message via ITS. Dr. Thea Hernandez Conflicting documentation has been found in Nursing Assessment History/Risk Factors: 63 year old female presents to the ED via EMS after being treated at [facility] for left heel wound. Medical History of HTN, Neuropathy, Left Thigh and heel wound. Clinical Indicators: Right Buttock Treatment: no dressing; In your opinion, what is the most clinically appropriate diagnosis for this patient? * Skin Tear Poa Stage 2 partial flap loss * Pressure Injury Poa Stage 2 Dry and Intact * Other explanation of clinical findings * Unable to determine (no explanation for clinical findings) (Last Revision: July 2017) No evidence of right total wound or skin tear on my clinical examination today and none was seen on initial consultation MTDD
[2018-10-11] MEDS: diphenhydrAMINE 50 MG/ML 1 ML VIAL IVP PRN (15:30)
[2018-10-11 16:44] LABS: Iron Saturation 12.7 (12.00-45.00)
--- NOTE | 2018-10-11 22:07 | PN ---
PROGRESS NOTE DATE OF SERVICE: 10/11/2018 This 63-year-old woman who was admitted with multiple medical problems, including renal failure, also had hyperkalemia. Patient also had infected bilateral heel decubitus ulcers, right more than the left, and the patient is being closely monitored at this time. The patient was evaluated by Infectious Disease and Nephrology and multiple other consultants. PT/OT is evaluating the patient. The patient apparently was recently in the ECF and the patient has already run over the insurance limit for rehab, per the lead case manager. Please refer to their notes for further details. The patient is being closely monitored at this time. Past medical history reviewed. REVIEW OF SYSTEMS: CARDIOVASCULAR SYSTEM: No angina, palpitations. RESPIRATORY SYSTEM: As mentioned earlier. GI: As mentioned earlier. : No dysuria or retention. NERVOUS SYSTEM: No numbness, weakness. CURRENT MEDICATIONS: Reviewed. They include: 1. [place] 7.5 q.6 p.r.n. 2. Norvasc 5 mg p.o. daily. 3. Lipitor 10 mg p.o. daily. 4. Cefepime 1 gram b.i.d. 5. Benadryl 25 mg q.6 p.r.n. 6. Iron sulfate 325 mg p.o. b.i.d. 7. Synthroid 100 mcg p.o. daily. 8. Zestril 5 mg p.o. b.i.d. 9. Imodium 2 mg p.o. q.i.d. 10.Lyrica 50 mg p.o. t.i.d. 11.Vancomycin. PHYSICAL EXAMINATION: Patient is alert, oriented x3. Pulse 63, blood pressure 122/71, respiration 16, temperature 98.1, pulse ox 97% on room air. HEENT: Conjunctivae normal. NECK: No jugular venous distention. CARDIOVASCULAR SYSTEM: S1, S2 muffled. RESPIRATORY SYSTEM: Breath sounds diminished at the bases. A few scattered rhonchi and crackles. ABDOMEN: Soft, non-tender, obese. No mass palpable. LEGS: Bilateral leg swelling and significant ulcerations and maceration of both heels present. NERVOUS SYSTEM: No focal deficit. LABS: WBC 6.4, hemoglobin 9.8. Creatinine is noted. ASSESSMENT: 1. Acute renal failure, possibly prerenal acute tubular necrosis with dehydration. 2. Possible methicillin-resistant Staphylococcus aeruginosa. 3. Hyperkalemia. 4. Infected bilateral heel ulcers, right more than the left. 5. Obesity with body mass index 47.3. 6. Gait dysfunction. 7. Anemia; normocytic anemia of chronic disease. 8. Hypertension. 9. Hypothyroidism. 10.Hyperlipidemia. 11.History of degenerative joint disease. 12.History of urinary tract infection. 13.Gait dysfunction. 14.Remote history of nicotine dependence. 15.FULL CODE. RECOMMENDATIONS AND DISCUSSION: In this 63-year-old woman who presented with multiple complex medical issues, we will monitor the patient closely, continue the current management, continue with symptomatic treatment. Also at this time I would recommend continuing with current medications. We will add the Neurontin and continue to monitor. Otherwise, as mentioned earlier, continue with the IV antibiotics per infectious disease recommendations. The culture is showing possible MRSA. We will work closely with Infectious Disease regarding outpatient antibiotics. Repeat labs, also. Nephrology is also following the patient closely. Further recommendations to follow. MMMANNY / EMMETTN: [id number] / JERRY
--- NOTE | 2018-10-11 23:25 | P.PN ---
Progress Note - Text Progress Note Date: 10/11/18 REASON FOR FOLLOWUP: 1. Left heel pressure ulcer with possible cellulitis. 2. Left posterior leg thigh wound. No cellulitis. 3. UTI. INTERVAL HISTORY: The patient denies any fever or chills. Patient is breathing comfortably. Denies having any chest pain. No abdominal pain or any worsening pain to the left heel area, and currently denies any urinary symptoms PHYSICAL EXAMINATION: Blood pressure is 130/83 with a pulse of 70, temperature 98. 3. she is 95 % on room air. General description is a middle-aged female, lying in bed in no distress. RESPIRATORY SYSTEM: Unlabored breathing, clear to auscultation anteriorly HEART: S1, S2. Regular rate and rhythm. ABDOMEN: Soft, no tenderness. The left heel wound with no slough or necrotic tissue swelling redness has improved no drainage LABS: Blood culture negative no urine culture done local wound culture with MRS A DIAGNOSTIC IMPRESSION/PLAN: 1. Patient admitted to the hospital with generalized weakness in this patient who did have a chronic nonhealing wound to the left heel area with some necrotic changes. Patient is status post debridement of this wound local wound culture with MRSA Patient will be continued on vancomycin x 2 weeks for his PICC line will be placed. 2. Left posterior thigh wound. Local wound care with Aquacel Silver, which is q.48 hours. 3. Urinary tract infection, cultures remain negative to discontinue cefepime
[2018-10-12] MEDS: HYDROcodone/APAP 7.5-325MG 1 EACH TAB PO PRN ×2 (00:58→12:27)
[2018-10-12] MEDS: VANCOMYCIN 2,000 MG in SODIUM CHLORIDE 0.9% 500 ML 500 ML IVPB SCH ×2 (02:33→15:08)
[2018-10-12] MEDS: FERROUS SULFATE 325 MG TAB PO SCH (08:23)
[2018-10-12] MEDS: PREGABALIN 50 MG CAP PO SCH ×2 (08:23→15:14)
[2018-10-12] MEDS: GABAPENTIN 300 MG CAP PO SCH ×2 (08:23→15:14)
[2018-10-12] MEDS: amLODIPine 5 MG TAB PO SCH (08:23)
[2018-10-12] MEDS: ATORVASTATIN 10 MG TAB PO SCH (08:23)
[2018-10-12] MEDS: LISINOPRIL 5 MG TAB PO SCH (08:23)
[2018-10-12] MEDS: LEVOTHYROXINE 100 MCG TAB PO SCH (08:23)
[2018-10-12] MEDS: LOPERAMIDE 2 MG CAP PO PRN ×2 (08:36→15:39)
[2018-10-12 08:41] LABS: African American GFR (CKD) >90 (>60 ml/min/1.73 sqM); Anion Gap 6 mmol/L; Blood Urea Nitrogen 9 mg/dL (7-17); Calcium 8.9 mg/dL (8.4-10.2); Carbon Dioxide 25 mmol/L (22-30); Chloride 113 mmol/L (98-107); Glucose 87 mg/dL (74-99); Magnesium 1.5 mg/dL (1.6-2.3); Potassium 3.9 mmol/L (3.5-5.1); Sodium 144 mmol/L (137-145)
--- NOTE | 2018-10-12 13:21 | P.DS ---
Providers Date of admission: 10/06/18 19:06 Attending physician: Moiz Daigle MD Consults: 10/06/18 19:05 Consult Physician Urgent Consulting Provider: Nava Ybarra Consult Reason/Comments: Acute kidney failure Do you want consulting provider notified?: Yes 10/07/18 15:10 Consult Physician Routine Consulting Provider: Thea Hernandez Consult Reason/Comments: infected ulcer Do you want consulting provider notified?: Yes 10/07/18 22:58 Consult Physician Routine Consulting Provider: Luis E Danielson Consult Reason/Comments: left heel wound debridment Do you want consulting provider notified?: Yes, Notify in am Primary care physician: [facility] Course: Final diagnosis Acute renal failure possibly prerenal acute tubular necrosis with dehydration Possible MRSA hyperkalemia Infected bilateral heel ulcers right more than left Obesity body mass index of 47.3 Gait dysfunction Anemia normocytic anemia of chronic disease Hypertension Hypothyroidism Hyperlipidemia History of DJD History of UTI Gait dysfunction History of nicotine dependence Full code Discharge disposition This patient be discharged in a stable condition with guarded prognosis ECF for further evaluation and treatment. PICC line has been inserted for outpatient antibiotics. Total time taken is 35 minutes. History of present illness This 63 with a past medical history multiple medical problems was admitted acute renal failure as well as multiple other medical problems as mentioned earlier the patient also had infected bilateral heel ulcers both MRSA was grown from the cultures infection disease saw the patient vancomycin is given patient also had gait dysfunction. Patient will be started in a stable condition with guarded prognosis to ECF for further evaluation and treatment. On exam vitals are stable. Cardio S1 and S2 normal. Respirator system few scattered rhonchi. Abdomen soft nontender. Feet bilateral ulcers. Please refer to the medication reconciliation for sheet for list of medications. Recommend close follow-up with the outpatient setting with the primary physician after discharge from ECF. the patient be discharged in a stable condition with guarded prognosis. Follow-up with the infection disease for antibiotics and the PICC line care and other associated medical issues Plan - Discharge Summary Discharge Rx Participant: No New Discharge Prescriptions: New Loperamide [Imodium] 2 mg PO QID PRN #8 cap PRN Reason: Diarrhea Ferrous Sulfate [Iron (65 MG Elemental)] 325 mg PO BID-W/MEALS tab Vancomycin 2,000 mg IVPB Q12H vial Lisinopril [Zestril] 5 mg PO BID tab Continue Levothyroxine Sodium [Synthroid] 100 mcg PO DAILY amLODIPine [Norvasc] 5 mg PO DAILY Ibuprofen 800 mg PO Q8H PRN PRN Reason: Pain Atorvastatin Calcium [Lipitor] 10 mg PO DAILY Pregabalin [Lyrica] 50 mg PO TID@1000,1400,2200 #8 cap Gabapentin [Neurontin] 600 mg PO BID@1000,1400 #8 cap HYDROcodone/APAP 7.5-325MG [[place] 7.5-325] 1 tab PO Q6HR PRN #8 tab PRN Reason: Pain Discontinued Lisinopril [Zestril] 40 mg PO BID Gabapentin [Neurontin] 900 mg PO HS@2200 Discharge Medication List Levothyroxine Sodium [Synthroid] 100 mcg PO DAILY 08/29/13 [History] amLODIPine [Norvasc] 5 mg PO DAILY 07/23/18 [History] Atorvastatin Calcium [Lipitor] 10 mg PO DAILY 10/06/18 [History] Ibuprofen 800 mg PO Q8H PRN 10/06/18 [History] Ferrous Sulfate [Iron (65 MG Elemental)] 325 mg PO BID-W/MEALS tab 10/12/18 [Rx] Gabapentin [Neurontin] 600 mg PO BID@1000,1400 #8 cap 10/12/18 [Rx] HYDROcodone/APAP 7.5-325MG [[place] 7.5-325] 1 tab PO Q6HR PRN #8 tab 10/12/18 [Rx] Lisinopril [Zestril] 5 mg PO BID tab 10/12/18 [Rx] Loperamide [Imodium] 2 mg PO QID PRN #8 cap 10/12/18 [Rx] Pregabalin [Lyrica] 50 mg PO TID@1000,1400,2200 #8 cap 10/12/18 [Rx] Vancomycin 2,000 mg IVPB Q12H vial 10/12/18 [Rx] Follow up Appointment(s)/Referral(s): Adonis Mcfarlane DO [Primary Care Provider] - 1-2 days Bennie Ho, [NON-STAFF] - As Needed [facility], [NON-STAFF] - As Needed Activity/Diet/Wound Care/Special Instructions: CBC BMP in 2/3 days
[2018-10-12] MEDS ORDERED: SODIUM FERRIC GLUCONAT-SUCROSE 125 MG in SODIUM CHLORIDE 0.9% 100 ML IVPB ONE (14:51)
--- NOTE | 2018-10-12 14:51 | P.PN ---
Subjective Patient is seen in follow-up for acute kidney injury. GFR is now back to baseline. Oral intake gradually improving. Cobos catheter removed this m jose eduardo. She has not voided on her own so far. No vomiting. Denies chest pain or shortness of breath. Vital signs are stable. General: The patient appeared well nourished and normally developed. HEENT: Head exam is unremarkable. Neck is without jugular venous distension. LUNGS: Lungs are clear to auscultation and percussion. Breath sounds decreased. HEART: Rate and Rhythm are regular. First and second heart sounds normal. No murmurs, rubs or gallops. ABDOMEN: Abdominal exam reveals normal bowel sounds. Non-tender and non- distended. No evidence of peritonitis. EXTREMITITES: Chronic skin changes noted. No obvious drainage. Objective - Vital Signs Vital signs: Vital Signs Temp 98.4 F 10/12/18 07:00 Pulse 62 10/12/18 07:00 Resp 17 10/12/18 07:00 BP 137/67 10/12/18 07:00 Pulse Ox 96 10/12/18 07:00 Intake & Output 10/11/18 10/12/18 10/12/18 18:59 06:59 18:59 Intake Total 950 550 Output Total 700 500 Balance 250 50 Weight 141 kg Intake: Intake, IV Titration 550 Amount Cefepime 1 gm In Sodium 50 Chloride 0.9% 50 ml @ 100 mls/hr IVPB Q12HR VENKAT Rx #:[id number] Vancomycin 2,000 mg In 500 Sodium Chloride 0.9% 500 ml 500 ml @ 167 mls/hr IVPB Q12H VENKAT Rx#: [id number] Oral 950 Output: Urine 700 500 Other: Voiding Method Indwelling Catheter Indwelling Catheter - Labs CBC & Chem 7: 10/11/18 07:23 10/12/18 07:34 Labs: Abnormal Lab Results - Last 24 Hours (Table) 10/11/18 10/12/18 Range/Units 07:23 07:34 Chloride 113 H (98-107) mmol/L Magnesium 1.5 L (1.6-2.3) mg/dL Iron 24 L (50-170) ug/dL TIBC 189 L (228-460) ug/dL Microbiology - Last 24 Hours (Table) 10/08/18 15:07 Anaerobic Culture - Final Heel - Left 10/06/18 14:58 Blood Culture - Preliminary Blood No Growth after 120 hours 10/08/18 15:07 Gram Stain - Final Foot - Left Wound Culture - Final Methicillin resist S. aureus Assessment and Plan Plan: Assessment: 1. Acute kidney injury mostly prerenal secondary to hypotension and nonsteroidals. GFR now back to baseline. 2. Hyperkalemia secondary to acute kidney injury, nonsteroidals and VALENTÍN inhibitor use. Resolved. 3. Mild hypernatremia secondary to lack of oral water intake. 4. Anemia. No active bleeding noted. Iron deficiency noted. 5. Benign hypertension. Controlled. 6. Left foot wound. Culture positive for MRSA. Maintained on IV antibiotics. 7. Hypomagnesemia from GI losses and poor oral intake. Plan: Encourage oral intake, particularly water. IV iron 1 today. Replace magnesium. 2 g IV today. Avoid nephrotoxins. Stable for discharge from nephrology standpoint.
[2018-10-12 14:58] VITALS: BP 107/69; PULSE 66; RESP 16; TEMP 97.8
[2018-10-12] MEDS ORDERED: MAGNESIUM SULFATE-D5W PMX 1 GM in DEXTROSE/WATER 1 100ML.BAG IVPB SCH (15:00)
--- NOTE | 2018-10-12 15:04 | IR ---
PICC LINE PLACEMENT: HISTORY: Infection requiring long-term antibiotic therapy PROCEDURE: Ultrasound and fluoroscopic guidance of PICC line placement. COMPLICATIONS: None ANESTHESIA: 1. 1% Lidocaine locally. FINDINGS/TECHNIQUE: The procedure was explained to the patient. The risks, complications, benefits and alternatives were discussed and any questions were answered. Informed consent was obtained. The patient was placed supine on the fluoroscopic table and prepped and draped in the usual sterile fash ion. Utilizing a 21 gauge needle and sonographic and fluoroscopic guidance, access in the left basi lic vein was achieved and there is placement of a 0.018 guidewire. The vein is patent. A 4-F sheath was placed over the guidewire. The guidewire and dilator were removed and a 4-F. PICC line was plac ed through the sheath with the tip at the level of the SVC. The sheath was removed, the catheter was flushed and sutured into position. The patient was stable throughout the procedure and remained sta ble upon discharge from the Department of Radiology. The vein puncture was patent under ultrasound. A espinoza scale image was obtained to document patency of the vein punctured. All elements of the maximal barrier technique were utilized. FLUOROSCOPY TIME: 0.1 minutes of fluoroscopy and one image submitted IMPRESSION: Successful PICC line placement under ultrasound and fluoroscopic guidance.
--- NOTE | 2018-10-12 15:55 | PN ---
PROGRESS NOTE DATE OF SERVICE: 10/12/2018 REASON FOR FOLLOWUP: 1. Left foot wound with secondary MRSA infection. 2. Left thigh wound. INTERVAL HISTORY: The patient is currently afebrile. The patient is breathing comfortably. Currently waiting for a PICC line placement for outpatient IV antibiotic regimen. Denies having any chest pain, shortness of breath or cough, and no abdominal pain, no diarrhea, or pain to the left foot area. PHYSICAL EXAMINATION: Blood pressure is 137/67 with a pulse of 62, temperature 98.4. She is 96% on room air. General description is a middle-aged female lying in bed in no distress. RESPIRATORY SYSTEM: Unlabored breathing. Clear to auscultation anteriorly. HEART: S1, S2. Regular rate and rhythm. ABDOMEN: Soft. No tenderness. EXTREMITIES: Left heel wound is currently dressed; no obvious drainage on the dressing. The patient did have a wound on the left posterior thigh area, stage II pressure ulcer, with no cellulitis. There was no evidence of any wound or skin tear on bilateral gluteal or sacral area. The patient was examined in detail with the RN Radha. LABS: BUN of 9, creatinine 0.69. DIAGNOSTIC IMPRESSION AND PLAN: 1. Patient with a left heel wound with secondary cellulitis, culture positive for methicillin-resistant Staphylococcus aeruginosa. Patient is on vancomycin, to continue for another 2 weeks to finish course of therapy with close monitoring of her kidney function. 2. Left posterior thigh wound. Local wound care with Aquacel Silver dressing. Keep the area off pressure. MMODL / IJN: [id number] /
[2018-10-13] MEDS ORDERED: VANCOMYCIN TROUGH DUE 1 EACH MISC MISCELLANE ONE (02:00)
--- NOTE | 2018-10-13 07:58 | CDI ---
Documentation Clarification Form Date: 10/11/2018 1:28:00 PM From: Gwen Lopez RN CCDS Admit Date: 10/06/2018 7:06:00 PM Patient Name: Darling Spicer Visit Number: [id number] Discharge Date: 10/12/2018 6:00:00 PM ATTENTION: The Clinical Documentation Specialists (CDI) and [facility] Coding Staff appreciate your assistance in clarifying documentation. Please respond to the clarification below the line at the bottom and electronically sign. The CDI & [facility] Coding staff will review the response and follow-up if needed. Please note: Queries are made part of the Legal Health Record. If you have any questions, please contact the author of this message via ITS. Dr. Luis E Dainelson Per your operative note, a debridement was performed on the left heel 10/08/2018 History/Risk Factors: 63 year old male presents to the ED via EMS after being at rehabilitation for wound care of left heel. Clinical Indicators: Medical history of HTN skin disorder. Treatment: Debridement Gel fiber with silvadene. Five elements required for accurate and compliant documentation of a debridement: * 1.Technique used (e.g., excisional, excised, cutting, etc.) * 2.Instrument(s) used (e.g., scalpel, curette, etc.) Scissor * 3.Nature of the tissue removed (e.g., necrotic, devitalized tissues, non- viable tissue, etc.) Necrotic * 4.Appearance and size of the wound (e.g., down to fresh bleeding tissue, 7cm x 10cm, etc.)5x4 cm * 5.Depth of the debridement* (e.g., skin, subcutaneous tissue, fascia, muscle, bone, etc.) In order to capture the severity of condition and code the appropriate procedure; could you please document the following * Excisional debridement (the removal of necrotic, devitalized tissue or slough by means of cutting away of tissue) * Non-excisional debridement (the removal of necrotic, devitalized tissue or slough by means of flushing, brushing, or washing. (Irrigation) * Other; please specify * Unable to determine (Last Revision: July 2017) MTDD
== END 2018-10-12 18:00 | DRG 264 ==
LOC: EC 14:09 → 4SSUR 19:06
PROVIDERS: ADMIT Internal Medicine; ATTEND Internal Medicine
PROC: 0JBR0ZZ Excision of Left Foot Subcutaneous Tissue and Fascia, Open Approach (ICD-10-PCS; principal; 2018-10-08)
DX: I96 Gangrene, not elsewhere classified (principal); N17.0 Acute kidney failure with tubular necrosis; E87.0 Hyperosmolality and hypernatremia; E87.2 Acidosis; N39.0 Urinary tract infection, site not specified; L03.116 Cellulitis of left lower limb; Z68.42 Body mass index [BMI] 45.0-49.9, adult; E66.9 Obesity, unspecified; I95.9 Hypotension, unspecified; E83.42 Hypomagnesemia; L89.620 Pressure ulcer of left heel, unstageable; E87.5 Hyperkalemia; G62.9 Polyneuropathy, unspecified; B95.62 Methicillin resistant Staphylococcus aureus infection as the cause of diseases classified elsewhere; D63.8 Anemia in other chronic diseases classified elsewhere; E61.1 Iron deficiency; E78.5 Hyperlipidemia, unspecified; E03.9 Hypothyroidism, unspecified; I10 Essential (primary) hypertension; T39.315A Adverse effect of propionic acid derivatives, initial encounter; I87.309 Chronic venous hypertension (idiopathic) without complications of unspecified lower extremity; M19.90 Unspecified osteoarthritis, unspecified site; N39.3 Stress incontinence (female) (male); K42.9 Umbilical hernia without obstruction or gangrene; R26.9 Unspecified abnormalities of gait and mobility; Z79.890 Hormone replacement therapy; Z79.899 Other long term (current) drug therapy; Z71.3 Dietary counseling and surveillance; Z86.14 Personal history of Methicillin resistant Staphylococcus aureus infection; Z90.49 Acquired absence of other specified parts of digestive tract; Z87.891 Personal history of nicotine dependence; Z87.440 Personal history of urinary (tract) infections; Z98.51 Tubal ligation status; Z88.2 Allergy status to sulfonamides; Z82.49 Family history of ischemic heart disease and other diseases of the circulatory system; Z83.49 Family history of other endocrine, nutritional and metabolic diseases; Z80.42 Family history of malignant neoplasm of prostate; Z80.1 Family history of malignant neoplasm of trachea, bronchus and lung; Z82.3 Family history of stroke
CPT/HCPCS: 36415; 36573; 71046; 76770; 80048; 80053; 81001; 82728; 83540; 83550; 83605; 83735; 84132; 84484; 85025; 85027; 85610; 85730; 87040; 87070; 87075; 87077; 87186; 87205; 87324; 93005; 96365; 99285

== ENCOUNTER 2018-12-13 21:21 | Inpatient (IN) | payer MEDICARE, OTHER ==
--- NOTE | 2018-12-13 21:27 | ED ---
Extremity Problem HPI - General Stated complaint: Swollen Legs Time Seen by Provider: 12/13/18 21:27 Source: RN notes reviewed, old records reviewed - History of Present Illness Initial comments: This is a 63-year-old female the ER for evaluation presents today for evaluation regards to lower extremity pain, lower extremity wounds, nonhealing wounds increasing wounds. Patient was sent in by home wound care for evaluation of c hronic wounds nonhealing wounds and feeling of outpatient treatment. Patient denies fevers but does complain of pain and swelling increased swelling left lower extremity. MD Complaint: extremity pain, extremity swelling, joint pain -: days(s) Location: left, lower extremity History of Same: Yes Radiation: none Severity scale (1-10): 6 Quality: aching Consistency: constant Improves with: nothing Worsens with: nothing Associated Symptoms: denies other symptoms - Related Data Home Medications Medication Instructions Recorded Confirmed Levothyroxine Sodium [Synthroid] 100 mcg PO DAILY 08/29/13 12/13/18 amLODIPine [Norvasc] 5 mg PO DAILY 07/23/18 12/13/18 Atorvastatin Calcium [Lipitor] 10 mg PO DAILY 10/06/18 12/13/18 Lisinopril 40 mg PO BID 12/13/18 12/13/18 Previous Rx's Medication Instructions Recorded Gabapentin [Neurontin] 600 mg PO BID@1000,1400 #8 cap 10/12/18 HYDROcodone/APAP 7.5-325MG [[place] 1 tab PO Q6HR PRN #8 tab 10/12/18 7.5-325] Pregabalin [Lyrica] 50 mg PO TID@1000,1400,2200 #8 cap 10/12/18 Allergies Allergy/AdvReac Type Severity Reaction Status Date / Time Sulfa (Sulfonamide Allergy Rash/Hives Verified 12/13/18 22:44 Antibiotics) Review of Systems ROS Statement: Those systems with pertinent positive or pertinent negative responses have been documented in the HPI. ROS Other: All systems not noted in ROS Statement are negative. 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 History of Any Multi-Drug Resistant Organisms: MRSA Date of last positivie culture/infection: 10/08/18 MDRO Source:: MRSA FOOT Past Surgical History: Section, Cholecystectomy, Orthopedic Surgery, Tubal Ligation Additional Past Surgical History / Comment(s): D&C x 3, arthroscopic left knee x 2, Past Anesthesia/Blood Transfusion Reactions: Previous Problems w/ Anesthesia Additional Past Anesthesia/Blood Transfusion Reaction / Comment(s): slow to come out of it Past Psychological History: No Psychological Hx Reported Smoking Status: Former smoker Past Alcohol Use History: Rare Additional Past Alcohol Use History / Comment(s): started smoking 1970, quit 1990, 1 ppd. Patient denies any medical marijuana, marijuana, street drug or alcohol use. She worked in the past as a nurse at [employer]. Past Drug Use History: None Reported - Past Family History Father Family Medical History: Cancer, Coronary Artery Disease (CAD), Myocardial Infarction ([place]), Prostate Disorder Additional Family Medical History / Comment(s): Prostate CA Mother Family Medical History: Cancer, CVA/TIA, Hyperlipidemia Additional Family Medical History / Comment(s): Lung CA-left lobe removed General Exam - General Exam Comments Initial Comments: Significant lower extremity chronic venous stasis with wounds. Currently cleaned and bandaged thereafter recently bandaged today General appearance: alert, in no apparent distress Head exam: Present: atraumatic, normocephalic, normal inspection Eye exam: Present: normal appearance, PERRL, EOMI. Absent: scleral icterus, conjunctival injection, periorbital swelling ENT exam: Present: normal exam, mucous membranes moist Neck exam: Present: normal inspection. Absent: tenderness, meningismus, lymphadenopathy Respiratory exam: Present: normal lung sounds bilaterally. Absent: respiratory distress, wheezes, rales, rhonchi, stridor Cardiovascular Exam: Present: regular rate, normal rhythm, normal heart sounds. Absent: systolic murmur, diastolic murmur, rubs, gallop, clicks GI/Abdominal exam: Present: soft, normal bowel sounds. Absent: distended, tenderness, guarding, rebound, rigid Extremities exam: Present: normal inspection, full ROM, normal capillary refill. Absent: tenderness, pedal edema, joint swelling, calf tenderness Back exam: Present: normal inspection Neurological exam: Present: alert, oriented X3, CN II-XII intact Psychiatric exam: Present: normal affect, normal mood Skin exam: Present: warm, dry, intact, normal color. Absent: rash Course Vital Signs 12/13/18 21:35 Temperature 98.3 F Pulse Rate 97 Respiratory 18 Rate Blood Pressure 130/80 O2 Sat by Pulse 99 Oximetry - Reevaluation(s) Reevaluation #1: 12/13/18 23:17 Neck records reviewed Reevaluation #2: 12/13/18 23:17 Patient has pain control Medical Decision Making - Medical Decision Making 83 female the ER for evaluation complaining of left foot infection recurrent lef t foot infection and pain. Patient be admitted for IV antibiotics, wound care - Lab Data Result diagrams: 12/13/18 21:35 12/13/18 21:35 Lab Results 12/13/18 12/13/18 12/13/18 Range/Units 21:35 21:35 21:35 WBC 11.7 H (3.8-10.6) k/uL RBC 3.78 L (3.80-5.40) m/uL Hgb 11.1 L (11.4-16.0) gm/dL Hct 33.8 L (34.0-46.0) % MCV 89.5 (80.0-100.0) fL MCH 29.4 (25.0-35.0) pg MCHC 32.8 (31.0-37.0) g/dL RDW 15.5 (11.5-15.5) % Plt Count 243 (150-450) k/uL Neutrophils % 85 % Lymphocytes % 7 % Monocytes % 6 % Eosinophils % 1 % Basophils % 0 % Neutrophils # 9.9 H (1.3-7.7) k/uL Lymphocytes # 0.8 L (1.0-4.8) k/uL Monocytes # 0.7 (0-1.0) k/uL Eosinophils # 0.1 (0-0.7) k/uL Basophils # 0.0 (0-0.2) k/uL PT (9.0-12.0) sec INR (<1.2) APTT (22.0-30.0) sec Sodium 141 (137-145) mmol/L Potassium 4.0 (3.5-5.1) mmol/L Chloride 104 (98-107) mmol/L Carbon Dioxide 23 (22-30) mmol/L Anion Gap 14 mmol/L BUN 25 H (7-17) mg/dL Creatinine 1.22 H (0.52-1.04) mg/dL Est GFR (CKD-EPI)AfAm 54 (>60 ml/min/1.73 sqM) Est GFR (CKD-EPI)NonAf 47 (>60 ml/min/1.73 sqM) Glucose 90 (74-99) mg/dL Plasma Lactic Acid Lm 1.5 (0.7-2.0) mmol/L Calcium 10.2 (8.4-10.2) mg/dL Phosphorus 4.1 (2.5-4.5) mg/dL Magnesium 2.0 (1.6-2.3) mg/dL Total Bilirubin 0.7 (0.2-1.3) mg/dL AST 54 H (14-36) U/L ALT 21 (9-52) U/L Alkaline Phosphatase 150 H (38-126) U/L Creatine Kinase 829 H (30-135) U/L Troponin I (0.000-0.034) ng/mL NT-Pro-B Natriuret Pep pg/mL Total Protein 7.5 (6.3-8.2) g/dL Albumin 4.2 (3.5-5.0) g/dL 12/13/18 12/13/18 12/13/18 Range/Units 21:35 21:35 21:35 WBC (3.8-10.6) k/uL RBC (3.80-5.40) m/uL Hgb (11.4-16.0) gm/dL Hct (34.0-46.0) % MCV (80.0-100.0) fL MCH (25.0-35.0) pg MCHC (31.0-37.0) g/dL RDW (11.5-15.5) % Plt Count (150-450) k/uL Neutrophils % % Lymphocytes % % Monocytes % % Eosinophils % % Basophils % % Neutrophils # (1.3-7.7) k/uL Lymphocytes # (1.0-4.8) k/uL Monocytes # (0-1.0) k/uL Eosinophils # (0-0.7) k/uL Basophils # (0-0.2) k/uL PT 10.3 (9.0-12.0) sec INR 1.0 (<1.2) APTT 29.3 (22.0-30.0) sec Sodium (137-145) mmol/L Potassium (3.5-5.1) mmol/L Chloride (98-107) mmol/L Carbon Dioxide (22-30) mmol/L Anion Gap mmol/L BUN (7-17) mg/dL Creatinine (0.52-1.04) mg/dL Est GFR (CKD-EPI)AfAm (>60 ml/min/1.73 sqM) Est GFR (CKD-EPI)NonAf (>60 ml/min/1.73 sqM) Glucose (74-99) mg/dL Plasma Lactic Acid Lm (0.7-2.0) mmol/L Calcium (8.4-10.2) mg/dL Phosphorus (2.5-4.5) mg/dL Magnesium (1.6-2.3) mg/dL Total Bilirubin (0.2-1.3) mg/dL AST (14-36) U/L ALT (9-52) U/L Alkaline Phosphatase (38-126) U/L Creatine Kinase (30-135) U/L Troponin I 0.013 (0.000-0.034) ng/mL NT-Pro-B Natriuret Pep 272 pg/mL Total Protein (6.3-8.2) g/dL Albumin (3.5-5.0) g/dL Disposition Clinical Impression: Cellulitis, Acute kidney failure, Decubitus ulcer of foot, Ulcer of left heel and midfoot with fat layer exposed Disposition: ADMITTED IP TO THIS [facility] Condition: Fair Is patient prescribed a controlled substance at d/c from ED?: No Referrals: Adonis Mcfarlane DO [Primary Care Provider] - 1-2 days
[2018-12-13] MEDS ORDERED: SODIUM CHLORIDE 0.9% 1,000 ML IV STA (22:20)
[2018-12-13] MEDS ORDERED: MORPHINE SULFATE 4 MG/ML SYRINGE IV STA (22:20)
[2018-12-13 22:34] LABS: Basophils % (A) 0 %; Eosinophils # (A) 0.1 k/uL (0-0.7); Eosinophils % (A) 1 %; HCT 33.8 % (34.0-46.0); HGB 11.1 gm/dL (11.4-16.0); Lymphocytes # (A) 0.8 k/uL (1.0-4.8); Lymphocytes % (A) 7 %; MCH 29.4 pg (25.0-35.0); MCHC 32.8 g/dL (31.0-37.0); MCV 89.5 fL (80.0-100.0); Mean Platelet Volume 9.1; Monocytes # (A) 0.7 k/uL (0-1.0); Monocytes % (A) 6 %; Neutrophils # (A) 9.9 k/uL (1.3-7.7); Neutrophils % (A) 85 %; Platelet Count 243 k/uL (150-450); RBC 3.78 m/uL (3.80-5.40); RDW 15.5 % (11.5-15.5); WBC 11.7 k/uL (3.8-10.6)
[2018-12-13 22:45] LABS: Albumin 4.2 g/dL (3.5-5.0); Calcium 10.2 mg/dL (8.4-10.2); Phosphorus 4.1 mg/dL (2.5-4.5); Total Bilirubin 0.7 mg/dL (0.2-1.3); Total Protein 7.5 g/dL (6.3-8.2)
[2018-12-13 22:48] LABS: Partial Thromboplastin Time 29.3 sec (22.0-30.0); Prothrombin Time 10.3 sec (9.0-12.0)
[2018-12-13] MEDS ORDERED: MORPHINE SULFATE 4 MG/ML SYRINGE IVP PRN (23:19)
[2018-12-13] MEDS ORDERED: VANCOMYCIN IV PER PHARMACY 1 EACH MISC MISCELLANE PRN (23:19)
--- NOTE | 2018-12-13 23:59 | XR ---
EXAM: XR Chest, 2 Views CLINICAL HISTORY: ITS.REASON XR Reason: Weakness TECHNIQUE: Frontal and lateral views of the chest. COMPARISON: 10/06/18 FINDINGS: Lungs: Unremarkable. No consolidation. Pleural space: Unremarkable. No pneumothorax. Heart: Unremarkable. No cardiomegaly. Mediastinum: Unremarkable. Bones/joints: Unremarkable. IMPRESSION: No acute findings.
[2018-12-14] MEDS ORDERED: VANCOMYCIN 2,000 MG in SODIUM CHLORIDE 0.9% 500 ML 500 ML IVPB ONE (01:00)
[2018-12-14 01:29] VITALS: BMI 48.6
[2018-12-14] MEDS: ENOXAPARIN 40 MG/0.4 ML SYRINGE SQ SCH (08:31)
--- NOTE | 2018-12-14 12:59 | P.HPIM ---
History of Present Illness 63-year-old female came in with increased pain and redness in the left lower extremity patient has bilateral chronic venous stasis and venous stasis dermatosis patient is having increased pain in the left leg patient does have stage II to 3 ulcer on the anterior yost area with some redness. patient denied any fever chills.patient is mildly elevated serum creatinine of 1.22 and patient is on IV fluids at this time. Review of Systems REVIEW OF SYSTEMS: CONSTITUTIONAL: No fever, no malaise, no fatigue. HEENT: No recent visual problems or hearing problems. Denied any sore throat. CARDIOVASCULAR: No chest pain, orthopnea, PND, no palpitations, no syncope. PULMONARY: No shortness of breath, no cough, no hemoptysis. GASTROINTESTINAL: No diarrhea, no nausea, no vomiting, no abdominal pain. NEUROLOGICAL: No headaches, no weakness, no numbness. HEMATOLOGICAL: Denies any bleeding or petechiae. GENITOURINARY: Denies any burning micturition, frequency, or urgency. MUSCULOSKELETAL/RHEUMATOLOGICAL: Denies any joint pain, swelling, or any muscle pain. ENDOCRINE: Denies any polyuria or polydipsia. The rest of the 14-point review of systems is negative. 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 History of Any Multi-Drug Resistant Organisms: MRSA Date of last positivie culture/infection: 10/08/18 MDRO Source:: MRSA FOOT Past Surgical History: Section, Cholecystectomy, Orthopedic Surgery, Tubal Ligation Additional Past Surgical History / Comment(s): D&C x 3, arthroscopic left knee x 2, Past Anesthesia/Blood Transfusion Reactions: Previous Problems w/ Anesthesia Additional Past Anesthesia/Blood Transfusion Reaction / Comment(s): slow to come out of it Past Psychological History: No Psychological Hx Reported Additional Psychological History / Comment(s): pt lives alone in a single level home that has 3 steps in which to enter. no pets.uses a cane when up. receives [facility] care nurse. His related at the time of transport that the home was in very poor condition Smoking Status: Never smoker Past Alcohol Use History: Rare Additional Past Alcohol Use History / Comment(s): started smoking 1970, quit 1990, 1 ppd. Patient denies any medical marijuana, marijuana, street drug or alcohol use. She worked in the past as a nurse at [employer]. Past Drug Use History: None Reported - Past Family History Father Family Medical History: Cancer, Coronary Artery Disease (CAD), Myocardial Infarction ([place]), Prostate Disorder Additional Family Medical History / Comment(s): Prostate CA Mother Family Medical History: Cancer, CVA/TIA, Hyperlipidemia Additional Family Medical History / Comment(s): Lung CA-left lobe removed Medications and Allergies Home Medications Medication Instructions Recorded Confirmed Type Levothyroxine Sodium [Synthroid] 100 mcg PO DAILY 08/29/13 12/13/18 History amLODIPine [Norvasc] 5 mg PO DAILY 07/23/18 12/13/18 History Atorvastatin Calcium [Lipitor] 10 mg PO DAILY 10/06/18 12/13/18 History Gabapentin [Neurontin] 600 mg PO BID@1000,1400 #8 cap 10/12/18 12/13/18 Rx HYDROcodone/APAP 7.5-325MG [[place] 1 tab PO Q6HR PRN #8 tab 10/12/18 12/13/18 Rx 7.5-325] Pregabalin [Lyrica] 50 mg PO TID@1000,1400,2200 #8 cap 10/12/18 12/13/18 Rx Lisinopril 40 mg PO BID 12/13/18 12/13/18 History Allergies Allergy/AdvReac Type Severity Reaction Status Date / Time Sulfa (Sulfonamide Allergy Rash/Hives Verified 12/13/18 22:44 Antibiotics) Physical Exam Vitals: Vital Signs Temp Pulse Pulse Resp BP BP Pulse Ox 12/14/18 07:47 96 12/14/18 05:00 98.0 F 86 18 102/62 94 L 12/14/18 01:00 97.3 F L 84 18 111/62 12/14/18 00:26 98.9 F 89 20 122/56 99 12/13/18 23:41 88 20 124/74 99 12/13/18 21:35 98.3 F 97 18 130/80 99 Intake and Output 12/13/18 12/14/18 12/14/18 22:59 06:59 14:59 Intake Total 0 Balance 0 Intake: Oral 0 Other: # Voids 0 Weight 145.15 kg PHYSICAL EXAMINATION: GENERAL: The patient is alert and oriented x3, not in any acute distress.obese HEENT: Pupils are round and equally reacting to light. EOMI. No scleral icterus. No conjunctival pallor. Normocephalic, atraumatic. No pharyngeal erythema. No thyromegaly. CARDIOVASCULAR: S1 and S2 present. No murmurs, rubs, or gallops. Tachycardic irregular rhythm PULMONARY: Decreased air entry with some expiratory wheezing on exam ABDOMEN: Soft, nontender, nondistended, normoactive bowel sounds. No palpable organomegaly. MUSCULOSKELETAL: No joint swelling or deformity. EXTREMITIES: No cyanosis, clubbing, bilateral pedal edema with chronic venous stasis dermatosis, hence the lightest of the left leg with a venous ulcer as men tioned above NEUROLOGICAL: Gross neurological examination did not reveal any focal deficits. SKIN: as mentioned above Results CBC & Chem 7: 12/13/18 21:35 12/13/18 21:35 Labs: Abnormal Lab Results - Last 24 Hours (Table) 12/13/18 12/13/18 Range/Units 21:35 21:35 WBC 11.7 H (3.8-10.6) k/uL RBC 3.78 L (3.80-5.40) m/uL Hgb 11.1 L (11.4-16.0) gm/dL Hct 33.8 L (34.0-46.0) % Neutrophils # 9.9 H (1.3-7.7) k/uL Lymphocytes # 0.8 L (1.0-4.8) k/uL BUN 25 H (7-17) mg/dL Creatinine 1.22 H (0.52-1.04) mg/dL AST 54 H (14-36) U/L Alkaline Phosphatase 150 H (38-126) U/L Creatine Kinase 829 H (30-135) U/L Microbiology - Last 24 Hours (Table) 12/14/18 00:25 Gram Stain - Preliminary Foot - Left Wound Culture - Preliminary 12/14/18 01:10 Gram Stain - Preliminary Leg - Left Wound Culture - Preliminary Thrombosis Risk Factor Assmnt - Choose All That Apply Any of the Below Risk Factors Present?: Yes Each Factor Represents 1 point: Obesity (BMI >25), Swollen legs (current) Other Risk Factors: Yes Each Risk Factor Represents 2 Points: Age 61-74 years Thrombosis Risk Factor Assessment Total Risk Factor Score: 4 Thrombosis Risk Factor Assessment Level: Moderate Risk Assessment and Plan Plan: -venous ulcer with the possible cellulitis of the left leg:she will be continued on vancomycin, will be switched to Unasyn, infectious disease was consulted wound cultures were obtained local wound care. -Acute renal failure mild probably because of her medications lisinopril dose will be cut down to 20 mg daily from 40 twice a day.patient will be continued on IV fluids for 1 more day -Hypertension: Blood pressure is low normal changes in her medications as mentioned above -obesity with chronic venous stasis -Hypothyroidism -DVT prophylaxis with toxic and which will be continued
--- NOTE | 2018-12-14 13:01 | P.CON ---
Consult Note - . Consult date: 12/14/18 Assessment/Plan:: This is a 63-year-old pleasant to the wound care center with existing nonhealing ulcerations to the left lower extremity. Patient has a stage III pressure ulceration to the left plantar calcaneus. The previous wound measures 2.8 x 3 x 0.7 cm with fatty later exposure. There is a large amount of serosanguineous drainage noted there is no necrotic tissue within the wound bed. The periwound appearance dry scaly with scarring. The periwound is tender to palpation. Patient has a new ulceration to the left lower extremity area or aspect related to pressure. The ulceration has serosanguineous drainage. Patient states that the ulceration started approximately a week ago and is a result of putting pressure from her reclining chair. Patient's past medical history includes hypertension morbid obesity, arterial arthritis, hypo- thyroidism, and a result pressure ulcer of the left buttock stage IV. Review Of Systems: Constitutional: No fever, no chills, no night sweats. No weight change. No weakness, fatigue or lethargy. No daytime sleepiness. Musculoskeletal: Reports pain to the left lower extremity Reports muscle weakness, reports gait dysfunction, no frequent falls. Integumentary: Reports wounds left heel and backside of left lower leg, No rash or pruritus. No unusual bruising. No change in hair or nails. General Appearance: Alert, cooperative, no distress, appears stated age. Extremities: Extremities normal, atraumatic, 2+ edema bilateral lower extremities no cyanosis Pulses: 2+ and symmetric. Skin: Pressure ulceration to left lower extremity plantar calcaneus with a large amount of exudate and fibrin noted minimal granulation, serosanguineous drainage, minimal redness noted in periwound. Pressure ulceration of left lower extremity posterior aspect exudate and fibrin noted, serosanguineous drainage. Left lower extremity dry and scaly. Neurologic: Alert oriented x3 cranial nerves II through XII intact, no motor deficit, no abnormal balance or gait Assessment/plan: 1. Nonhealing ulceration stage III with pressure component left lower extremity plantar calcaneus. Absorptive silver, saline moistened gauze, dry gauze, rolled gauze and paper tape to secure change dressing Thursday. Continue to be nonweightbearing to the left lower extremity. Follow-up with wound care upon discharge. 2. Nonhealing ulceration stage II with pressure component of lower extremity posterior aspect. Collagen silver, saline moistened gauze, dry gauze, rolled gauze and paper tape to secure change dressings Thursday and Thursday. Continue to be nonweightbearing to the left lower extremity, follow-up with wound care upon discharge. Negative for the consultation. Any questions please contact the wound care center. DNP note has been reviewed and discussed with Dr. Rocha and the impression and plan of care has been directed as dictated.
[2018-12-14] MEDS: PREGABALIN 100 MG CAP PO SCH ×2 (13:38→20:37)
[2018-12-14] MEDS ORDERED: GABAPENTIN 300 MG CAP PO SCH (14:00)
[2018-12-14] MEDS ORDERED: PREGABALIN 50 MG CAP PO SCH (14:00)
[2018-12-14] MEDS ORDERED: AMPICILLIN-SULBACTAM 3 GM in SODIUM CHLORIDE 0.9% 100 ML IVPB SCH (16:00)
--- NOTE | 2018-12-14 16:02 | XR ---
EXAMINATION TYPE: XR foot limited LT DATE OF EXAM: 12/14/2018 CLINICAL HISTORY: Nonhealing wound for 7 years. TECHNIQUE: Frontal and lateral images of the left foot are obtained. COMPARISON: Left foot x-ray October 06, 2018 FINDINGS: There is redemonstration amputation defect distal first metatarsal. Marked flexion and toe s makes evaluation of this level suboptimal. Large inferior calcaneal spur redemonstrated. No new cor tical destruction or obvious suspicious periosteal reaction seen. Moderate diffuse subcutaneous edema redemonstrated. IMPRESSION: As above.
--- NOTE | 2018-12-14 16:36 | ECHOF ---
Referral Reason:Endocarditis MEASUREMENTS -------- HEIGHT: 172.7 cm WEIGHT: 145.1 kg BP: IVSd: 0.9 cm (0.6 - 1.1) LVIDd: 3.9 cm (3.9 - 5.3) LVPWd: 1.1 cm (0.6 - 1.1) IVSs: 1.6 cm LVIDs: 2.3 cm LVPWs: 1.7 cm Ao Diam: 2.4 cm (2.0 - 3.7) AV Cusp: 1.8 cm (1.5 - 2.6) LA Diam: 3.0 cm (2.7 - 3.8) MV EXCURSION: 17.701 mm (> 18.000) MV EF SLOPE: 94 mm/s (70 - 150) EPSS: 1.2 cm MV E Nestor: 1.14 m/s MV DecT: 237 ms MV A Nestor: 1.28 m/s MV E/A Ratio: 0.89 AV maxP.29 mmHg AV meanP.14 mmHg RAP: 5.00 mmHg RVSP: 28.79 mmHg FINDINGS -------- Sinus rhythm. This was a technically adequate study. The left ventricular size is normal. Left ventricular wall thickness is normal. Overall left vent ricular systolic function is normal with, an EF between 55 - 60 %. The right ventricle is normal in size. The left atrial size is normal. The right atrial size is normal. Aortic valve is trileaflet and is mildly thickened. Peak/mean gradient across the Aortic Valve is 2 3.29mmHg / 10.14mmHg. Cannot rule out vegetation. The mitral valve is normal. The mitral valve leaflets are mildly thickened. Mild mitral annular c alcification present. There is trace mitral regurgitation. Trace tricuspid regurgitation present. Right ventricular systolic pressure is normal at < 35 mmHg. There is no pulmonic regurgitation present. The aortic root size is normal. Normal inferior vena cava with normal inspiratory collapse consistent with estimated right atrial pre ssure of 5 mmHg. There is no pericardial effusion. CONCLUSIONS -------- 1. Sinus rhythm. 2. This was a technically adequate study. 3. The left ventricular size is normal. 4. Left ventricular wall thickness is normal. 5. Overall left ventricular systolic function is normal with, an EF between 55 - 60 %. 6. The right ventricle is normal in size. 7. The left atrial size is normal. 8. The right atrial size is normal. 9. Peak/mean gradient across the Aortic Valve is 23.29mmHg / 10.14mmHg. 10. Cannot rule out vegetation. 11. The mitral valve is normal. 12. The mitral valve leaflets are mildly thickened. 13. Mild mitral annular calcification present. 14. There is trace mitral regurgitation. 15. Trace tricuspid regurgitation present. 16. Right ventricular systolic pressure is normal at < 35 mmHg. 17. There is no pulmonic regurgitation present. 18. The aortic root size is normal. 19. Normal inferior vena cava with normal inspiratory collapse consistent with estimated right atrial pressure of 5 mmHg. 20. echo dense lesion over aortic valve - could be vegetation consider [employer] EX[employer]IVE: Maame Bosch RDCS
--- NOTE | 2018-12-14 17:02 | P.CONS ---
History of Present Illness - Reason for Consult Consult date: 12/14/18 - Chief Complaint Increased swelling pain to the left leg - History of Present Illness 63 -year-old woman who is known to the service where she has had difficulties with lower extremity ulcerations and bouts of sepsis in the past. It is related that she's been following in the wound healing center with a vascular surgeon. With elevation and local care of there's been some improvement however she had a sudden onset of worsening ulceration to the posterior aspect of her left leg. With this results of the significant increasing amount of erythema that occurred increasing drainage and she was reveal quite poorly because which presents to the emergency center for further evaluation. With the evidence of a significant cellulitis that was failing outpatient therapy wound healing center she has been admitted. At this point in time other than pain at the site she relates that she just feels somewhat poorly. She has noted that she's had a fever she had chill this is improving this afternoon however she is denying other acute difficulties nausea or emesis. She does relate that she's feeling short of breath which is somewhat new for her and she is not currently having chest pain. Review of Systems HEENT:Denies headache or acute visual change. Denies sinus or mouth discomforts. Denies neck stiffness or pain. Denies significant oral cavity pain. Denies difficulty on swallowing. Lungs: Noted to have some increasing shortness of breath she has no cough or sputum production no hemoptysis Cardiovascular: His noted some increasing shortness of breath over denies chest pains or pressures, she doesn't have pleuritic chest pain. She has no syncope or orthopnea but does have dyspnea with exertion Gastrointestinal:Denies nausea, vomiting, diarrhea, constipation, hematemesis, melena, hematochezia. No no significant change of bowel habit noticed. Musculoskeletal: denies significant myalgias or arthralgias. No new joint swelling. Chronic back and joint pains Skin: As per the HPI has a worsening ulceration to the left lower extremity Neuro: Denies headache or visual change. Denies any new onset weakness or difficulty with ambulation. Denies falls or seizures. Psychiatric:Denies anxiety or depression. 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 History of Any Multi-Drug Resistant Organisms: MRSA Year Discovered:: 10/08/18 MDRO Source:: MRSA FOOT Past Surgical History: Section, Cholecystectomy, Orthopedic Surgery, Tubal Ligation Additional Past Surgical History / Comment(s): D&C x 3, arthroscopic left knee x 2, Past Anesthesia/Blood Transfusion Reactions: Previous Problems w/ Anesthesia Additional Past Anesthesia/Blood Transfusion Reaction / Comm: slow to come out of it Past Psychological History: No Psychological Hx Reported Additional Psychological History / Comment(s): pt lives alone in a single level home that has 3 steps in which to enter. no pets.uses a cane when up. receives [facility] nurse. His related at the time of transport that the home was in very poor condition. No travel. No experience. No animals in the home Smoking Status: Never smoker Past Alcohol Use History: Rare Additional Past Alcohol Use History / Comment(s): started smoking 1970, quit 1990, 1 ppd. Patient denies any medical marijuana, marijuana, street drug or alcohol use. She worked in the past as a nurse at [employer]. Past Drug Use History: None Reported - Past Family History Father Family Medical History: Cancer, Coronary Artery Disease (CAD), Myocardial Infarction (HI), Prostate Disorder Additional Family Medical History / Comment(s): Prostate CA Mother Family Medical History: Cancer, CVA/TIA, Hyperlipidemia Additional Family Medical History / Comment(s): Lung CA-left lobe removed Medications and Allergies Home Medications and Allergies Comment(s): Current Medications Hydrocodone Bitart/Acetaminophen ([place] 7.5-325) 1 each PO Q6HR PRN PRN Reason: Pain Amitriptyline HCl (Elavil) 20 mg PO HS VENKAT Amlodipine Besylate (Norvasc) 5 mg PO DAILY VENKAT Atorvastatin Calcium (Lipitor) 10 mg PO DAILY VENKAT Enoxaparin Sodium (Lovenox) 40 mg SQ DAILY VENKAT Last Admin: 12/14/18 08:31 Dose: 40 mg Documented by: Vancomycin HCl 2,000 mg/ (Sodium Chloride) 500 mls @ 167 mls/hr IVPB Q24H VENKAT Meropenem 2 gm/ Sodium (Chloride) 100 mls @ 200 mls/hr IVPB Q8HR [facility]; Protocol Levothyroxine Sodium (Synthroid) 100 mcg PO DAILY@0630 VENKAT Lisinopril (Zestril) 20 mg PO DAILY [facility] Morphine Sulfate (Morphine Sulfate (Inj)) 4 mg IVP Q4HR PRN PRN Reason: Pain Pregabalin (Lyrica) 100 mg PO TID@1000,1400,2200 [facility] Last Admin: 12/14/18 13:38 Dose: 100 mg Documented by: Home Medications Medication Instructions Recorded Confirmed Type Levothyroxine Sodium [Synthroid] 100 mcg PO DAILY 08/29/13 12/13/18 History amLODIPine [Norvasc] 5 mg PO DAILY 07/23/18 12/13/18 History Atorvastatin Calcium [Lipitor] 10 mg PO DAILY 10/06/18 12/13/18 History Gabapentin [Neurontin] 600 mg PO BID@1000,1400 #8 cap 10/12/18 12/13/18 Rx HYDROcodone/APAP 7.5-325MG [[place] 1 tab PO Q6HR PRN #8 tab 10/12/18 12/13/18 Rx 7.5-325] Pregabalin [Lyrica] 50 mg PO TID@1000,1400,2200 #8 cap 10/12/18 12/13/18 Rx Lisinopril 40 mg PO BID 12/13/18 12/13/18 History Allergies Allergy/AdvReac Type Severity Reaction Status Date / Time Sulfa (Sulfonamide Allergy Rash/Hives Verified 12/13/18 22:44 Antibiotics) Physical Exam Vitals: Vital Signs Temp Pulse Pulse Pulse Resp BP BP 12/14/18 12:30 97.1 F L 77 18 113/58 12/14/18 07:47 12/14/18 05:00 98.0 F 86 18 102/62 12/14/18 01:00 97.3 F L 84 18 111/62 12/14/18 00:26 98.9 F 89 20 122/56 12/13/18 23:41 88 20 124/74 12/13/18 21:35 98.3 F 97 18 130/80 Pulse Ox 12/14/18 12:30 92 L 12/14/18 07:47 96 12/14/18 05:00 94 L 12/14/18 01:00 12/14/18 00:26 99 12/13/18 23:41 99 12/13/18 21:35 99 Intake and Output 12/14/18 12/14/18 12/14/18 06:59 14:59 22:59 Intake Total 0 Output Total 350 Balance 0 -350 Intake: Oral 0 Output: Urine 350 Other: # Voids 0 # Bowel Movements 0 Weight 145.15 kg 63-year-old woman who has superobesity is quite uncomfortable and appears to be somewhat short of breath HEENT: Anicteric conjunctiva are pink and moist nasal mucosa grossly intact without significant lesions, there is no thrush. Neck: The neck is supple without significant lymphadenopathy or thyromegaly. Lungs: There is symmetrical bilateral air entry there are basilar crackles no bronchial sounds on the ulcer egophony Heart: Regular with a positive S4 no distinct click or rub PMI is nondisplaced 2/6 systolic murmur left sternal border is noted patient does not recall having a murmur in the past Abdomen: Obese, Positive bowel sounds soft and nontender without palpable masses or organomegaly. There was no guarding or rebound. Extremities: The upper extremities have excellent pulses they are symmetric, no significant petechiae or telangiectasia. No splinter hemorrhages were noted. The left lower extremities is of the extensive swelling compared to the right leg. The posterior aspect glycogens a large ulceration please finishing photography for its size and location. There is some copious amount of drainage at this point in time. Cultures have been obtained. Neuro: Awake alert oriented to person place and time. There are no acute new gross focal sensory motor deficits. Results CBC & Chem 7: 12/13/18 21:35 12/13/18 21:35 Labs: Abnormal Lab Results - Last 24 Hours (Table) 12/13/18 12/13/18 Range/Units 21:35 21:35 WBC 11.7 H (3.8-10.6) k/uL RBC 3.78 L (3.80-5.40) m/uL Hgb 11.1 L (11.4-16.0) gm/dL Hct 33.8 L (34.0-46.0) % Neutrophils # 9.9 H (1.3-7.7) k/uL Lymphocytes # 0.8 L (1.0-4.8) k/uL BUN 25 H (7-17) mg/dL Creatinine 1.22 H (0.52-1.04) mg/dL AST 54 H (14-36) U/L Alkaline Phosphatase 150 H (38-126) U/L Creatine Kinase 829 H (30-135) U/L Microbiology - Last 24 Hours (Table) 12/14/18 00:25 Gram Stain - Preliminary Foot - Left Wound Culture - Preliminary 12/14/18 01:10 Gram Stain - Preliminary Leg - Left Wound Culture - Preliminary Laboratory Results WBC 11.7 k/uL (3.8-10.6) H 12/13/18 21:35 RBC 3.78 m/uL (3.80-5.40) L 12/13/18 21:35 Hgb 11.1 gm/dL (11.4-16.0) L 12/13/18 21:35 Hct 33.8 % (34.0-46.0) L 12/13/18 21:35 MCV 89.5 fL (80.0-100.0) 12/13/18 21:35 MCH 29.4 pg (25.0-35.0) 12/13/18 21:35 MCHC 32.8 g/dL (31.0-37.0) 12/13/18 21:35 RDW 15.5 % (11.5-15.5) 12/13/18 21:35 Plt Count 243 k/uL (150-450) 12/13/18 21:35 Neutrophils % 85 % 12/13/18 21:35 Lymphocytes % 7 % 12/13/18 21:35 Monocytes % 6 % 12/13/18 21:35 Eosinophils % 1 % 12/13/18 21:35 Basophils % 0 % 12/13/18 21:35 Neutrophils # 9.9 k/uL (1.3-7.7) H 12/13/18 21:35 Lymphocytes # 0.8 k/uL (1.0-4.8) L 12/13/18 21:35 Monocytes # 0.7 k/uL (0-1.0) 12/13/18 21:35 Eosinophils # 0.1 k/uL (0-0.7) 12/13/18 21:35 Basophils # 0.0 k/uL (0-0.2) 12/13/18 21:35 PT 10.3 sec (9.0-12.0) 12/13/18 21:35 INR 1.0 (<1.2) 12/13/18 21:35 APTT 29.3 sec (22.0-30.0) 12/13/18 21:35 Sodium 141 mmol/L (137-145) 12/13/18 21:35 Potassium 4.0 mmol/L (3.5-5.1) 12/13/18 21:35 Chloride 104 mmol/L (98-107) 12/13/18 21:35 Carbon Dioxide 23 mmol/L (22-30) 12/13/18 21:35 Anion Gap 14 mmol/L 12/13/18 21:35 BUN 25 mg/dL (7-17) H 12/13/18 21:35 Creatinine 1.22 mg/dL (0.52-1.04) H 12/13/18 21:35 Est GFR (CKD-EPI)AfAm 54 (>60 ml/min/1.73 sqM) 12/13/18 21:35 Est GFR (CKD-EPI)NonAf 47 (>60 ml/min/1.73 sqM) 12/13/18 21:35 Glucose 90 mg/dL (74-99) 12/13/18 21:35 Plasma Lactic Acid Lm 1.5 mmol/L (0.7-2.0) 12/13/18 21:35 Calcium 10.2 mg/dL (8.4-10.2) 12/13/18 21:35 Phosphorus 4.1 mg/dL (2.5-4.5) 12/13/18 21:35 Magnesium 2.0 mg/dL (1.6-2.3) 12/13/18 21:35 Total Bilirubin 0.7 mg/dL (0.2-1.3) 12/13/18 21:35 AST 54 U/L (14-36) H 12/13/18 21:35 ALT 21 U/L (9-52) 12/13/18 21:35 Alkaline Phosphatase 150 U/L (38-126) H 12/13/18 21:35 Creatine Kinase 829 U/L (30-135) H 12/13/18 21:35 Troponin I 0.013 ng/mL (0.000-0.034) 12/13/18 21:35 NT-Pro-B Natriuret Pep 272 pg/mL 12/13/18 21:35 Total Protein 7.5 g/dL (6.3-8.2) 12/13/18 21:35 Albumin 4.2 g/dL (3.5-5.0) 12/13/18 21:35 Microbiology 12/14/18 00:25 Foot - Left Gram Stain - Preliminary 12/14/18 00:25 Foot - Left Wound Culture - Preliminary 12/14/18 01:10 Leg - Left Gram Stain - Preliminary 12/14/18 01:10 Leg - Left Wound Culture - Preliminary Assessment and Plan (1) Obesity Current Visit: No Status: Acute Code(s): E66.9 - OBESITY, UNSPECIFIED SNOMED Code(s): 954804882 (2) Venous stasis ulcer of left lower leg with edema of left lower leg Current Visit: Yes Status: Acute Code(s): I83.029 - VARICOSE VEINS OF LEFT LOWER EXTREMITY W ULCER OF UNSP SITE; I83.892 - VARICOSE VEINS OF L LOW EXTREM WITH OTHER COMPLICATIONS; L97.929 - NON-PRS CHRONIC ULC UNSP PRT OF L LOW LEG W UNSP SEVERITY; R60.9 - EDEMA, UNSPECIFIED SNOMED Code(s): 01927740959288045 (3) Cellulitis of left leg Narrative/Plan: 63-year-old female who follows the wound healing center who presents from home care setting with a change of her status where she had increasing amount of erythema left lower extremity increasing drainage and started to feel quite poorly. Her presentation is evidence of leukocytosis evidence of significant cellulitis to left leg is Complicated by her venous stasis in her chronic lymphedema and lipedema. She is having significant amount of discomfort in this is been addressed by the primary care team. This put him wound care is requested will utilize the [employer] product. She is to elevate the limb. Antibiotic therapy based on recent cultures will be with meropenem and vancomycin until further cultures become available. Presents for further imaging to the site to further evaluate any deeper infection to the area. The patient does have increasing amounts of shortness of breath which is new and echocardiogram has been requested. Current Visit: Yes Status: Acute Code(s): L03.116 - CELLULITIS OF LEFT LOWER LIMB SNOMED Code(s): 953295121
[2018-12-14] MEDS: MEROPENEM 2 GM in SODIUM CHLORIDE 0.9% 100 ML IVPB SCH (17:07)
[2018-12-14] MEDS: HYDROcodone/APAP 7.5-325MG 1 EACH TAB PO PRN (17:13)
[2018-12-14] MEDS: AMITRIPTYLINE HCL 10 MG TAB PO SCH (20:37)
[2018-12-14] MEDS ORDERED: LISINOPRIL 20 MG TAB PO SCH (21:00)
[2018-12-14] MEDS ORDERED: VANCOMYCIN 2,000 MG in SODIUM CHLORIDE 0.9% 500 ML 500 ML IVPB SCH (23:00)
[2018-12-15] MEDS: MEROPENEM 2 GM in SODIUM CHLORIDE 0.9% 100 ML IVPB SCH ×4 (00:48→23:15)
[2018-12-15] MEDS: LEVOTHYROXINE 100 MCG TAB PO SCH (05:49)
[2018-12-15] MEDS: HYDROcodone/APAP 7.5-325MG 1 EACH TAB PO PRN ×3 (05:52→23:14)
[2018-12-15 08:03] LABS: Hypochromasia Slight; MCH 29.4 pg (25.0-35.0); MCHC 32.3 g/dL (31.0-37.0); MCV 91.1 fL (80.0-100.0); Mean Platelet Volume 8.6; Platelet Count 168 k/uL (150-450); RBC 2.74 m/uL (3.80-5.40); RDW 14.9 % (11.5-15.5); WBC 4.7 k/uL (3.8-10.6)
[2018-12-15 08:07] LABS: HGB 8.1 gm/dL (11.4-16.0)
[2018-12-15] MEDS: ENOXAPARIN 40 MG/0.4 ML SYRINGE SQ SCH (08:09)
[2018-12-15] MEDS: ATORVASTATIN 10 MG TAB PO SCH (08:09)
[2018-12-15] MEDS: amLODIPine 5 MG TAB PO SCH ×2 (08:09→08:14)
[2018-12-15] MEDS: LISINOPRIL 20 MG TAB PO SCH ×2 (08:09→08:14)
[2018-12-15 08:10] LABS: Calcium 8.5 mg/dL (8.4-10.2); Potassium 3.5 mmol/L (3.5-5.1)
--- NOTE | 2018-12-15 08:53 | CDI ---
Documentation Clarification Form Date: 12/15/2018 8:47:04 AM From: Olivia Clement RN, CCDS Admit Date: 12/14/2018 1:27:00 PM Patient Name: Darling Spicer Visit Number: [id number] ATTENTION: The Clinical Documentation Specialists (CDI) and [facility] Coding Staff appreciate your assistance in clarifying documentation. Please respond to the clarification below the line at the bottom and electronically sign. The CDI & [facility] Coding staff will review the response and follow-up if needed. Please note: Queries are made part of the Legal Health Record. If you have any questions, please contact the author of this message via ITS. Dr. May Cornelius A diagnosis of anemia lacks specificity to accurately reflect your patients severity of condition and clarification is needed. History/Risk Factors: UTI, Anemia, L heel wound and goes to wound care center, cellulitis Clinical indicators: Patient is currently in [facility], has chronic pressure Ulcer to heel and venous ulcer to lower extremity Hemoglobin: 11.1/8.1 Hematocrit: 33.8/25 Treatment: Labs Am Daily IVF @ 100 cc/hr In order to capture the severity of condition, please clarify the type of anemia and etiology if known: Acute on chronic blood loss anemia Chronic blood loss anemia Iron deficiency anemia Nutritional anemia Anemia of chronic disease Unable to determine Other, please specify (Last Revision: January 2017) Unable to determine MTDD
[2018-12-15] MEDS: PREGABALIN 100 MG CAP PO SCH ×3 (11:28→21:23)
[2018-12-15] MEDS: VANCOMYCIN 2,000 MG in SODIUM CHLORIDE 0.9% 500 ML 500 ML IVPB SCH (11:28)
--- NOTE | 2018-12-15 15:59 | P.PN ---
Subjective Progress Note Date: 12/15/18 Principal diagnosis: This is a 63-year-old female who was recently admitted with increased pain and redness of the left lower extremity and left heel and is being monitored closely. Infectious disease was consulted. Patient's creatinine was also elevated at 1.22 and today's creatinine is improved 0.81. Wound cultures were done showing gram-negative bacilli with presumptive MRSA. Patient states that she did have MRSA in October. Patient is currently on vancomycin and meropenem for IV antibiotic therapy. Patient denies any shortness of breath, chest pain, or palpitations at this time. Yesterday patient had some shortness of breath and an echo was done showing an EF of 55-60% with no pericardial effusion, no pulmonic regurgitation present. Patient denies any nausea or vomiting and is tolerating diet. Patient is afebrile. Patient states that she is having some pain and discomfort in her left knee and feels that it is due to the inability to find a comfortable position for her leg while elevating the left heel. Left leg is currently up on a pillow with minimal relief. Guarded prognosis. Objective - Vital Signs Vital signs: Vital Signs Temp 96.8 F L 12/15/18 12:30 Pulse 68 12/15/18 12:30 Resp 18 12/15/18 15:06 BP 128/71 12/15/18 12:30 Pulse Ox 95 12/15/18 12:30 Intake & Output 12/14/18 12/15/18 12/15/18 18:59 06:59 18:59 Intake Total 400 Output Total 350 1250 Balance -350 -850 Weight 145.15 kg Intake: Intake, IV Titration 300 Amount Sodium Chloride 0.9% 1, 300 000 ml @ 100 mls/hr IV . Q10H STA Rx#:[id number] Oral 100 Output: Urine 350 1250 Other: Voiding Method Incontinent # Voids 0 1 # Bowel Movements 0 0 0 - Exam Gen: This is a 63-year-old female lying in bed with the left leg elevated in no acute distress. Vital signs are stable. Patient is on room air. HEENT: Head is atraumatic, normocephalic. Pupils equal, round. Sclerae is anicteric. NECK: Supple. No JVD. No lymphadenopathy. No thyromegaly. LUNGS: Clear to auscultation. No wheezes or rhonchi. No intercostal retractions. HEART: Regular rate and rhythm. murmur. ABDOMEN: Soft. Bowel sounds are present. No masses. No tenderness. EXTREMITIES: Bilateral pedal edema with chronic venous stasis dermatosis, redness and swelling of the left leg is noted. kerlex dressing around the lower left leg and left heel noted on exam. NEUROLOGICAL: Patient is awake, alert and oriented x3. Cranial nerves 2 through 12 are grossly intact. - Labs CBC & Chem 7: 12/15/18 07:25 12/15/18 07:25 Labs: Abnormal Lab Results - Last 24 Hours (Table) 12/15/18 12/15/18 Range/Units 07:25 07:25 RBC 2.74 L (3.80-5.40) m/uL Hgb 8.1 L D (11.4-16.0) gm/dL Hct 25.0 L (34.0-46.0) % Chloride 111 H (98-107) mmol/L Microbiology - Last 24 Hours (Table) 12/14/18 00:25 Gram Stain - Preliminary Foot - Left Wound Culture - Preliminary Presumptive MRSA Gram Neg Bacilli 12/14/18 01:10 Gram Stain - Preliminary Leg - Left Wound Culture - Preliminary Gram Neg Bacilli Presumptive MRSA 12/13/18 21:35 Blood Culture - Preliminary Blood No Growth after 24 hours Assessment and Plan Assessment: Venous ulcer with possible cellulitis of the left leg: Infectious disease was consult did and wound cultures were obtained thus far showing gram-negative bacilli with presumptive MRSA. Patient is currently on vancomycin and meropenem for IV antibiotic therapy Acute renal failure mild probably because of her medications of lisinopril. Dose was cut down to 20 mg daily from the original 40 mg twice daily. Will continue to monitor. Current creatinine is 0.81 down from 1.22 Hypertension: Blood pressure has been low. Changes made to her home medications as mentioned above Obesity with chronic venous stasis Hypothyroidism DVT prophylaxis with Lovenox Recommendations and discussion Recommend to continue current medications, management, and symptomatic treatment . Infectious disease is following. Will await finalized cultures for any changes in IV antibiotic therapy. May need a rehab facility for PT/OT and continued IV antibiotic therapy. Will continue to monitor labs and vital signs closely. PT/OT are following. Guarded prognosis. Further recommendations to follow. Possible discharge in 24-48 hours.
[2018-12-15] MEDS: AMITRIPTYLINE HCL 10 MG TAB PO SCH (21:23)
[2018-12-16] MEDS: VANCOMYCIN 2,000 MG in SODIUM CHLORIDE 0.9% 500 ML 500 ML IVPB SCH ×2 (04:52→20:44)
[2018-12-16] MEDS: LEVOTHYROXINE 100 MCG TAB PO SCH (06:16)
[2018-12-16] MEDS: ENOXAPARIN 40 MG/0.4 ML SYRINGE SQ SCH (08:38)
[2018-12-16] MEDS: amLODIPine 5 MG TAB PO SCH (08:38)
[2018-12-16] MEDS: ATORVASTATIN 10 MG TAB PO SCH (08:39)
[2018-12-16] MEDS: LISINOPRIL 20 MG TAB PO SCH (08:39)
[2018-12-16] MEDS: HYDROcodone/APAP 7.5-325MG 1 EACH TAB PO PRN ×3 (08:47→23:15)
[2018-12-16] MEDS: MEROPENEM 2 GM in SODIUM CHLORIDE 0.9% 100 ML IVPB SCH (09:04)
[2018-12-16] MEDS: PREGABALIN 100 MG CAP PO SCH ×3 (10:02→23:15)
[2018-12-16] MEDS: PIPERACILLIN-TAZOBACTAM 3.375 GM in SODIUM CHLORIDE 0.9% 100 ML IVPB SCH ×2 (11:56→20:45)
[2018-12-16] MEDS ORDERED: LIDOCAINE 1% INJ 10MG/ML (20 ML MDV) SQ ONE (14:35)
--- NOTE | 2018-12-16 15:04 | P.PN ---
Subjective Progress Note Date: 12/16/18 Principal diagnosis: This is a 63-year-old female who was recently admitted with increased pain and redness of the left lower extremity and left heel and is being monitored closely. Infectious disease was consulted. Patient's creatinine was also elevated at 1.22 and today's creatinine is improved 0.81. Wound cultures were done showing gram-negative bacilli with presumptive MRSA. Patient states that she did have MRSA in October. Patient is currently on vancomycin and meropenem for IV antibiotic therapy. Patient denies any shortness of breath, chest pain, or palpitations at this time. Yesterday patient had some shortness of breath and an echo was done showing an EF of 55-60% with no pericardial effusion, no pulmonic regurgitation present. Patient denies any nausea or vomiting and is tolerating diet. Patient is afebrile. Patient states that she is having some pain and discomfort in her left knee and feels that it is due to the inability to find a comfortable position for her leg while elevating the left heel. Left leg is currently up on a pillow with minimal relief. Guarded prognosis. 12/16/2018 Patient is lying in bed in no acute distress. Per nursing staff patient refused to work with PT/OT stating that she was in pain. When talking with the patient today she states that from her previous x-rays of her chest in the ER her back was hurting and she states that she was unable to get up in the bed due to the back pain. Patient states that she did not have the back pain prior to arrival. Patient is also having bilateral leg discomfort with the left being worse than the right. Patient has not been getting up to use the bathroom and is currently using the purewick Device for urination and is calling on staff for a bedpan for bowel movements. Patient states that she does not want to go to rehab and wants to return home. PT/OT following and will await report for recommendations. Patient denies any chest pain, shortness of breath, or palpitations at this time. Patient denies any nausea or vomiting and is tolerating diet. Patient has been drinking but not as much is normal. Left heel and lower extremity dressings are dry and intact but scheduled to be changed today. Infectious disease is following and awaiting further recommendations. Patient did receive a PICC line today. Objective - Vital Signs Vital signs: Vital Signs Temp 97.0 F L 12/16/18 13:48 Pulse 76 12/16/18 13:48 Resp 16 12/16/18 13:48 BP 122/68 12/16/18 13:48 Pulse Ox 99 12/16/18 13:48 Intake & Output 12/15/18 12/16/18 12/16/18 18:59 06:59 18:59 Intake Total 300 550 Output Total 450 700 400 Balance -450 -400 150 Weight 145.15 kg Intake: Oral 300 550 Output: Urine 450 700 400 Other: Voiding Method Incontinent Incontinent Incontinent # Voids 1 # Bowel Movements 0 - Exam Gen: This is a 63-year-old female lying in bed with the left leg elevated in no acute distress. Vital signs are stable. Temp is 98.4F, pulse is 78, respirations are 20, blood pressure is 121/68, oxygen saturation is 92% on room air. HEENT: Head is atraumatic, normocephalic. Pupils equal, round. Sclerae is anicteric. NECK: Supple. No JVD. No lymphadenopathy. No thyromegaly. LUNGS: Clear to auscultation. No wheezes or rhonchi. No intercostal retractions. HEART: Regular rate and rhythm. murmur. ABDOMEN: Soft. Bowel sounds are present. Obese. No masses. No tenderness. EXTREMITIES: Bilateral pedal edema with chronic venous stasis dermatosis, redness and swelling of the left leg is noted. kerlex dressing around the lower left leg and left heel noted on exam. NEUROLOGICAL: Patient is awake, alert and oriented x3. Cranial nerves 2 through 12 are grossly intact. - Labs CBC & Chem 7: 12/15/18 07:25 12/15/18 07:25 Labs: Microbiology - Last 24 Hours (Table) 12/14/18 00:25 Gram Stain - Final Foot - Left Wound Culture - Final Methicillin resist S. aureus Pseudomonas aeruginosa 12/14/18 01:10 Gram Stain - Final Leg - Left Wound Culture - Final Pseudomonas aeruginosa Methicillin resist S. aureus 12/13/18 21:35 Blood Culture - Preliminary Blood No Growth after 48 hours Assessment and Plan Assessment: Venous ulcer with possible cellulitis of the left leg: Infectious disease was consulted and wound cultures were obtained and is showing Pseudomonas aeruginosa and MRSA. Patient is now on vancomycin and Zosyn for IV antibiotic therapy per infectious disease Acute renal failure mild probably because of her medications of lisinopril. Dose was cut down to 20 mg daily from the original 40 mg twice daily. Will continue to monitor. Current creatinine is 0.81 down from 1.22 Hypertension: Blood pressure has been low. Changes made to her home medications as mentioned above Obesity with chronic venous stasis Hypothyroidism DVT prophylaxis with Lovenox Recommendations and discussion Recommend to continue current medications, management, and symptomatic treatment. Infectious disease is following. Discussed with the patient about a rehab facility and patient states that she wants to return home. Patient needs a rehab facility for PT/OT and continued IV antibiotic therapy. Social work and case management are following. Will continue to monitor labs and vital signs closely. PT/OT are following. Guarded prognosis. Further recommendations to follow. Possible discharge in 24-48 hours.
--- NOTE | 2018-12-16 17:06 | IR ---
EXAMINATION TYPE: IR cvc insert >=5 years DATE OF EXAM: 12/16/2018 COMPARISON: NONE CLINICAL HISTORY: Infection Needs long-term intravenous access for antibiotics. PROCEDURE: After informed consent, the skin overlying the left basilic vein was localized with ultrasound and no gato to be compressible and patent. An ultrasound image was obtained and submitted on the patient's c bills. The overlying skin was prepped and draped and Lidocaine was used for local anesthesia. A skin paula was made with a scalpel. Access was gained to the vein under ultrasound guidance with a 21 gau ge needle and a 0.018 inch wire was advanced. Access site was dilated with Peel-Away sheath and cath eter tailored to the appropriate length and advanced such that the distal tip is at the cavoatrial ju nction. Spot image was obtained verifying placement. Catheter was fixed to the skin and a sterile d ressing was placed following hemostasis. Catheter was aspirated and flushed with saline. Patient wa s discharged in stable condition without complication.Maximal barrier technique is utilized. Ultraso und image is documented on the chart. Ultrasound used with sterile technique. Fluoro time and fluoroscopic images submitted to document procedure: 0.3 minutes fluoroscopy time, 22 intraoperative images document the procedure IMPRESSION: STATUS POST ULTRASOUND AND FLUOROSCOPIC GUIDED PICC LINE PLACEMENT, READY FOR USE. THIS PROCEDURE WAS PERFORMED BY THE UNDERSIGNED.
[2018-12-16] MEDS: AMITRIPTYLINE HCL 10 MG TAB PO SCH (23:10)
[2018-12-17] MEDS: PIPERACILLIN-TAZOBACTAM 3.375 GM in SODIUM CHLORIDE 0.9% 100 ML IVPB SCH ×2 (05:30→11:43)
[2018-12-17 07:36] VITALS: RESP 18
[2018-12-17] MEDS: LISINOPRIL 20 MG TAB PO SCH (07:46)
[2018-12-17] MEDS: HYDROcodone/APAP 7.5-325MG 1 EACH TAB PO PRN (07:46)
[2018-12-17] MEDS: ATORVASTATIN 10 MG TAB PO SCH (07:46)
[2018-12-17] MEDS: amLODIPine 5 MG TAB PO SCH (07:46)
[2018-12-17] MEDS: LEVOTHYROXINE 100 MCG TAB PO SCH (07:46)
[2018-12-17] MEDS: ENOXAPARIN 40 MG/0.4 ML SYRINGE SQ SCH (07:47)
[2018-12-17] MEDS: PREGABALIN 100 MG CAP PO SCH ×2 (09:32→13:42)
[2018-12-17] MEDS ORDERED: VANCOMYCIN TROUGH DUE 1 EACH MISC MISCELLANE ONE (11:00)
[2018-12-17 11:03] LABS: Basophils % (A) 0 %; Eosinophils # (A) 0.2 k/uL (0-0.7); Eosinophils % (A) 4 %; HCT 28.2 % (34.0-46.0); HGB 9.1 gm/dL (11.4-16.0); Hypochromasia Slight; Lymphocytes # (A) 0.5 k/uL (1.0-4.8); Lymphocytes % (A) 13 %; MCH 29.1 pg (25.0-35.0); MCHC 32.2 g/dL (31.0-37.0); MCV 90.3 fL (80.0-100.0); Mean Platelet Volume 8.1; Monocytes # (A) 0.4 k/uL (0-1.0); Monocytes % (A) 9 %; Neutrophils # (A) 2.7 k/uL (1.3-7.7); Neutrophils % (A) 71 %; Platelet Count 192 k/uL (150-450); RBC 3.13 m/uL (3.80-5.40); RDW 14.9 % (11.5-15.5); WBC 3.8 k/uL (3.8-10.6)
[2018-12-17 11:16] LABS: African American GFR (CKD) >90 (>60 ml/min/1.73 sqM); Anion Gap 2 mmol/L; Blood Urea Nitrogen 8 mg/dL (7-17); Calcium 8.6 mg/dL (8.4-10.2); Carbon Dioxide 30 mmol/L (22-30); Chloride 107 mmol/L (98-107); Glucose 92 mg/dL (74-99); Non-African American GFR(CKD) >90 (>60 ml/min/1.73 sqM); Potassium 4.1 mmol/L (3.5-5.1); Sodium 139 mmol/L (137-145)
[2018-12-17] MEDS: VANCOMYCIN 2,000 MG in SODIUM CHLORIDE 0.9% 500 ML 500 ML IVPB SCH (11:39)
[2018-12-17 14:55] VITALS: BP 154/77; PULSE 81; TEMP 97
--- NOTE | 2018-12-17 15:13 | P.DS ---
Providers Date of admission: 12/14/18 13:27 Expected date of discharge: 12/17/18 Attending physician: Wagner Howe Consults: 12/14/18 11:43 Consult Physician Routine Consulting Provider: Chaz Suazo Consult Reason/Comments: left lower leg wounds/known to patient Do you want consulting provider notified?: Yes Primary care physician: [facility] Course: Final diagnosis Venous ulcer with possible cellulitis of the left leg Left heel ulcer Acute renal failure Hypertension Obesity with chronic venous stasis Hypothyroidism DVT prophylaxis Gait dysfunction Discharge disposition Patient is being discharged in a stable condition with guarded prognosis to [facility] rehab facility for PT/OT as well as continued IV antibiotic therapy per infectious disease recommendations. Infectious disease has arranged for IV antibiotics. History of present illness This is a 63-year-old female who was admitted with left lower extremity redness and swelling and cellulitis along with left heel wound and was being closely monitored. Infectious disease was following. Patient did receive a PICC line yesterday and is scheduled to go to [facility] for rehab and continued IV antibiot ic therapy per infectious disease. Cultures were showing Pseudomonas and MRSA. Patient had some mild acute renal failure during hospitalization and was being closely monitored most likely due to her medications of lisinopril. Lisinopril was cut down to 20 mg daily. Creatinine improved. Patient will repeat labs in 2-3 days. PT/OT were working with the patient as well. Patient will benefit fr a rehab facility for continued physical therapy assistance. Patient denies any shortness of breath, chest pain, or palpitations at this time. Patient denies any nausea or vomiting and has been tolerating diet. Patient has been afebrile. Patient will also need wound care as instructed per infectious disease. Patient is currently stable with much improvement. On exam vital signs are stable. Blood pressure is 154/77, heart rate is 81, respirations are 18, temp is 97.0F, oxygen saturation is 93% on room air. Cardio S1 and S2 are normal. Respiratory system shows clear to auscultation. Abdomen is soft, obese, non-tender. Nervous system shows no focal deficits with mild diffuse weakness. Please refer to medication reconciliation sheet for a list of medications. Patient Condition at Discharge: Fair Plan - Discharge Summary New Discharge Prescriptions: New Pregabalin [Lyrica] 100 mg PO TID@1000,1400,2200 #9 cap Lisinopril [Zestril] 20 mg PO DAILY tab Vancomycin 2,000 mg IVPB Q24HR@1200 #14 vial Piperacillin-Tazobactam [Zosyn] 3.375 gm IVPB Q8H #42 vial Continue Levothyroxine Sodium [Synthroid] 100 mcg PO DAILY amLODIPine [Norvasc] 5 mg PO DAILY Atorvastatin Calcium [Lipitor] 10 mg PO DAILY Gabapentin [Neurontin] 600 mg PO BID@1000,1400 #8 cap HYDROcodone/APAP 7.5-325MG [[place] 7.5-325] 1 tab PO Q6HR PRN #8 tab PRN Reason: Pain Discontinued Pregabalin [Lyrica] 50 mg PO TID@1000,1400,2200 #8 cap Lisinopril 40 mg PO BID Discharge Medication List Levothyroxine Sodium [Synthroid] 100 mcg PO DAILY 08/29/13 [History] amLODIPine [Norvasc] 5 mg PO DAILY 07/23/18 [History] Atorvastatin Calcium [Lipitor] 10 mg PO DAILY 10/06/18 [History] Gabapentin [Neurontin] 600 mg PO BID@1000,1400 #8 cap 12/17/18 [Rx] HYDROcodone/APAP 7.5-325MG [[place] 7.5-325] 1 tab PO Q6HR PRN #8 tab 12/17/18 [Rx] Lisinopril [Zestril] 20 mg PO DAILY tab 12/17/18 [Rx] Piperacillin-Tazobactam [Zosyn] 3.375 gm IVPB Q8H #42 vial 12/17/18 [Rx] Pregabalin [Lyrica] 100 mg PO TID@1000,1400,2200 #9 cap 12/17/18 [Rx] Vancomycin 2,000 mg IVPB Q24HR@1200 #14 vial 12/17/18 [Rx] Follow up Appointment(s)/Referral(s): Adonis Mcfarlane DO [Primary Care Provider] - 1-2 days Chaz Suazo MD [STAFF PHYSICIAN] - 2 Weeks ([facility] Ambulatory/Diagnostic Orders: Basic Metabolic Panel [LAB.AMB] Time Frame: 3 Days, Location: None Selected Basic Metabolic Panel [LAB.AMB] Location: None Selected Complete Blood Count w/diff [LAB.AMB] Time Frame: 3 Days, Location: None Selected Complete Blood Count w/diff [LAB.AMB] Location: None Selected Vancomycin,Trough [LAB.AMB] Location: None Selected Activity/Diet/Wound Care/Special Instructions: Patient is going to [facility] continue current diet Activity as tolerated continue working with PT/OT follow up with repeat labs in 2-3 days Follow up with Dr. Suazo in the wound clinic once discharged Continue with wound care Left plantar calcaneus- with normal saline apply absorptive silver, saline moistened gauze, dry gauze and wrap with rolled gauze and secure with tape Left lower extremity- left lower extremity posterior aspect, cleanse with normal saline, apply collagen silver, saline moistened gauze, dry gauze, wrap with rolled gauze and secure with tape. Change Thursday, Thursday, Fridays Discharge Disposition: TRANSFER TO SNF/ECF
[2018-12-18] MEDS ORDERED: VANCOMYCIN 2,000 MG in SODIUM CHLORIDE 0.9% 500 ML 500 ML IVPB SCH (12:00)
== END 2018-12-17 15:58 | DRG 602 ==
LOC: EC 21:21 → 4MS4W 23:19 → OBSVTOIN 12-14 13:27
PROVIDERS: ADMIT Hospitalist; ATTEND Hospitalist
PROC: 02HV33Z Insertion of Infusion Device into Superior Vena Cava, Percutaneous Approach (ICD-10-PCS; principal; 2018-12-16 14:16)
DX: L03.116 Cellulitis of left lower limb (principal); L89.623 Pressure ulcer of left heel, stage 3; L89.324 Pressure ulcer of left buttock, stage 4; L97.809 Non-pressure chronic ulcer of other part of unspecified lower leg with unspecified severity; Z68.42 Body mass index [BMI] 45.0-49.9, adult; N17.9 Acute kidney failure, unspecified; L89.892 Pressure ulcer of other site, stage 2; E03.9 Hypothyroidism, unspecified; E66.01 Morbid (severe) obesity due to excess calories; R26.9 Unspecified abnormalities of gait and mobility; I83.028 Varicose veins of left lower extremity with ulcer other part of lower leg; I89.0 Lymphedema, not elsewhere classified; T46.4X5A Adverse effect of angiotensin-converting-enzyme inhibitors, initial encounter; Z79.890 Hormone replacement therapy; Z79.899 Other long term (current) drug therapy; Z80.1 Family history of malignant neoplasm of trachea, bronchus and lung; Z82.49 Family history of ischemic heart disease and other diseases of the circulatory system; Z87.891 Personal history of nicotine dependence; Z80.42 Family history of malignant neoplasm of prostate; Z86.14 Personal history of Methicillin resistant Staphylococcus aureus infection; N39.3 Stress incontinence (female) (male); Z88.2 Allergy status to sulfonamides; Z87.440 Personal history of urinary (tract) infections
CPT/HCPCS: 36415; 36573; 71046; 80048; 80053; 80202; 82550; 83605; 83735; 83880; 84100; 84484; 85025; 85027; 85610; 85730; 87040; 87070; 87077; 87186; 87205; 93005; 93306; 94760; 96365; 96367; 96375; 99285

== ENCOUNTER 2019-02-03 05:37 | Inpatient (IN) | payer MEDICARE, OTHER ==
[2019-02-03] MEDS ORDERED: MORPHINE SULFATE 4 MG/ML SYRINGE IVP STA (06:36)
[2019-02-03] MEDS ORDERED: SODIUM CHLORIDE 0.9% 500 ML 500 ML IV STA (06:37)
--- NOTE | 2019-02-03 06:41 | ED ---
General Adult HPI <ZelalemMaynor - Last Filed: 02/03/19 10:01> - General Source: patient, EMS, RN notes reviewed Mode of arrival: EMS Limitations: physical limitation <Alessandro Lock - Last Filed: 02/03/19 10:23> - General Chief complaint: Back Pain/Injury Stated complaint: Back pain Time Seen by Provider: 02/03/19 06:09 - History of Present Illness Initial comments: 63-year-old female with a past medical history hypertension, UTI, neuropathy, anemia, morbid obesity presents to the emergency department for a chief complaint of back pain. Patient states this started yesterday morning. States that while she does not normally walk she was unable to get out of her wheelchair to pivot. States the pain is in her low mid back. States she has not had pain like this before. Denies dysuria. Denies fevers or chills.Patient has no other complaints at this time including shortness of breath, chest pain, abdominal pain, nausea or vomiting, headache, or visual changes. (Alessandro Lock) - Related Data Home Medications Medication Instructions Recorded Confirmed Levothyroxine Sodium [Synthroid] 100 mcg PO DAILY 08/29/13 02/03/19 amLODIPine [Norvasc] 5 mg PO DAILY 07/23/18 02/03/19 Atorvastatin Calcium [Lipitor] 10 mg PO DAILY 10/06/18 02/03/19 Gabapentin [Neurontin] 600 mg PO BID 02/03/19 02/03/19 Pregabalin [Lyrica] 100 mg PO TID 02/03/19 02/03/19 Previous Rx's Medication Instructions Recorded Lisinopril [Zestril] 20 mg PO DAILY tab 12/17/18 Allergies Allergy/AdvReac Type Severity Reaction Status Date / Time Sulfa (Sulfonamide Allergy Rash/Hives Verified 02/03/19 08:41 Antibiotics) Review of Systems ROS Other: All systems not noted in ROS Statement are negative. <Maynor Masterson - Last Filed: 02/03/19 10:01> ROS Other: All systems not noted in ROS Statement are negative. <Alessandro Lock - Last Filed: 02/03/19 10:23> ROS Statement: Those systems with pertinent positive or pertinent negative responses have been documented in the HPI. Past Medical History Past Medical History: Hypertension, Osteoarthritis (OA), Skin Disorder, Thyroid Disorder Additional Past Medical History / Comment(s): UTI, neuropathy, anemia, umbilical hernia, WOUND LEFT HEEL,, breakdown lt foot goes to [facility], stress incont of urine, old celluitis History of Any Multi-Drug Resistant Organisms: MRSA, Other MDRO Date of last positivie culture/infection: 12/14/18 MDRO Source:: Left Heel & Left Foot Past Surgical History: Section, Cholecystectomy, Orthopedic Surgery, Tubal Ligation Additional Past Surgical History / Comment(s): D&C x 3, arthroscopic left knee x 2, Past Anesthesia/Blood Transfusion Reactions: Previous Problems w/ Anesthesia Additional Past Anesthesia/Blood Transfusion Reaction / Comment(s): slow to come out of it Past Psychological History: No Psychological Hx Reported Smoking Status: Never smoker - Past Family History Father Family Medical History: Cancer, Coronary Artery Disease (CAD), Myocardial Infarction (IA), Prostate Disorder Additional Family Medical History / Comment(s): Prostate CA Mother Family Medical History: Cancer, CVA/TIA, Hyperlipidemia Additional Family Medical History / Comment(s): Lung CA-left lobe removed <Alessandro Lock P - Last Filed: 02/03/19 10:23> General Exam Limitations: physical limitation General appearance: alert, in no apparent distress Head exam: Present: atraumatic, normocephalic, normal inspection Eye exam: Present: normal appearance, PERRL, EOMI. Absent: scleral icterus, conjunctival injection, periorbital swelling ENT exam: Present: normal exam, mucous membranes moist Neck exam: Present: normal inspection, full ROM. Absent: tenderness, m eningismus, lymphadenopathy Respiratory exam: Present: normal lung sounds bilaterally. Absent: respiratory distress, wheezes, rales, rhonchi, stridor Cardiovascular Exam: Present: regular rate, normal rhythm, normal heart sounds. Absent: systolic murmur, diastolic murmur, rubs, gallop, clicks GI/Abdominal exam: Present: soft, normal bowel sounds. Absent: distended, tenderness, guarding, rebound, rigid Extremities exam: Present: normal capillary refill (warm lower extremities bilat with intact capillary refill) Back exam: Present: vertebral tenderness (upper lumbar tenderess) Neurological exam: Present: alert Psychiatric exam: Present: normal affect, normal mood <Alessandro Lock - Last Filed: 02/03/19 10:23> Course <Maynor Masterson - Last Filed: 02/03/19 10:01> Vital Signs 02/03/19 02/03/19 05:38 07:02 Temperature 98.9 F Pulse Rate 95 96 Respiratory 20 18 Rate Blood Pressure 98/46 122/62 O2 Sat by Pulse 98 100 Oximetry - Reevaluation(s) Reevaluation #1: 02/03/19 10:01 PA supervision: I proceeded to evaluate the patient and did discuss findings with her she will be admitted for pain control and evaluation by pain management as well as orthopedic spine surgery and oncology. Case is discussed Dr. Magallanes. (Maynor Masterson) Medical Decision Making - Lab Data Result diagrams: 02/03/19 07:00 02/03/19 07:00 <Maynor Masterson - Last Filed: 02/03/19 10:01> - Lab Data Result diagrams: 02/03/19 07:00 02/03/19 07:00 <Alessandro Lock - Last Filed: 02/03/19 10:23> - Medical Decision Making CBC CMP unremarkable. Hemoglobin is stable at 9.6. CT of the abdomen and pelvis was obtained given the patient's intractable abdominal pain that was different than any previous pain she has felt. This did show numerous nonenlarged and borderline to mildly enlarged retroperitoneal and bilateral iliac chain lymphadenopathy. Differentials include connective tissue disorder, systemic infection, metastatic disease, lymphoma. Severe multilevel degenerative disc disease with grade 1 retrolisthesis at L1 and L3 levels. Also mild spinal canal stenoses and severe bilateral neural foraminal stenoses. Did attempt ably patient was unsuccessful. Patient is not able to get out of bed with assistance. Given findings of lymphadenopathy as well as intractable back pain patient will be admitted for further management. Dr. Masterson spoke with Dr. Magallanes who recommends a pain management consult from Dr. Watts consult from Dr. Mackenzie, and consult from Dr. Hernandez. (Alessandro Lock) - Lab Data Lab Results 02/03/19 02/03/19 02/03/19 Range/Units 07:00 07:00 07:00 WBC 8.6 (3.8-10.6) k/uL RBC 3.46 L (3.80-5.40) m/uL Hgb 9.6 L (11.4-16.0) gm/dL Hct 31.4 L (34.0-46.0) % MCV 90.9 (80.0-100.0) fL MCH 27.7 (25.0-35.0) pg MCHC 30.5 L (31.0-37.0) g/dL RDW 14.6 (11.5-15.5) % Plt Count 132 L (150-450) k/uL Neutrophils % 82 % Lymphocytes % 7 % Monocytes % 6 % Eosinophils % 0 % Basophils % 1 % Neutrophils # 7.1 (1.3-7.7) k/uL Lymphocytes # 0.6 L (1.0-4.8) k/uL Monocytes # 0.5 (0-1.0) k/uL Eosinophils # 0.0 (0-0.7) k/uL Basophils # 0.1 (0-0.2) k/uL PT 10.2 (9.0-12.0) sec INR 0.9 (<1.2) APTT 29.7 (22.0-30.0) sec Sodium 143 (137-145) mmol/L Potassium 4.5 (3.5-5.1) mmol/L Chloride 107 (98-107) mmol/L Carbon Dioxide 27 (22-30) mmol/L Anion Gap 9 mmol/L BUN 21 H (7-17) mg/dL Creatinine 0.93 (0.52-1.04) mg/dL Est GFR (CKD-EPI)AfAm 76 (>60 ml/min/1.73 sqM) Est GFR (CKD-EPI)NonAf 66 (>60 ml/min/1.73 sqM) Glucose 111 H (74-99) mg/dL Calcium 9.7 (8.4-10.2) mg/dL Total Bilirubin 0.5 (0.2-1.3) mg/dL AST 17 (14-36) U/L ALT 17 (9-52) U/L Alkaline Phosphatase 121 (38-126) U/L Total Protein 6.7 (6.3-8.2) g/dL Albumin 3.7 (3.5-5.0) g/dL Disposition <Maynor Masterson - Last Filed: 02/03/19 10:01> Is patient prescribed a controlled substance at d/c from ED?: No Time of Disposition: 10:23 <Alessandro Lock P - Last Filed: 02/03/19 10:23> Clinical Impression: Intractable back pain, Failure to thrive, Unable to ambulate, Morbid obesity, Retroperitoneal lymphadenopathy Disposition: ADMITTED IP TO THIS HOSP Condition: Fair Referrals: Adonis Mcfarlane DO [Primary Care Provider] - 1-2 days
[2019-02-03 07:05] LABS: Basophils # (A) 0.1 k/uL (0-0.2); Basophils % (A) 1 %; Eosinophils % (A) 0 %; HCT 31.4 % (34.0-46.0); HGB 9.6 gm/dL (11.4-16.0); Lymphocytes # (A) 0.6 k/uL (1.0-4.8); Lymphocytes % (A) 7 %; MCH 27.7 pg (25.0-35.0); MCHC 30.5 g/dL (31.0-37.0); MCV 90.9 fL (80.0-100.0); Mean Platelet Volume 10.2; Monocytes # (A) 0.5 k/uL (0-1.0); Monocytes % (A) 6 %; Neutrophils # (A) 7.1 k/uL (1.3-7.7); Neutrophils % (A) 82 %; Platelet Count 132 k/uL (150-450); RBC 3.46 m/uL (3.80-5.40); RDW 14.6 % (11.5-15.5); WBC 8.6 k/uL (3.8-10.6)
[2019-02-03] MEDS ORDERED: MORPHINE SULFATE 2 MG/ML SYRINGE IM STA (07:09)
[2019-02-03] MEDS ORDERED: MORPHINE SULFATE 2 MG/ML SYRINGE IVP STA (07:11)
[2019-02-03 07:15] LABS: Albumin 3.7 g/dL (3.5-5.0); Calcium 9.7 mg/dL (8.4-10.2); INR 0.9 (<1.2); Partial Thromboplastin Time 29.7 sec (22.0-30.0); Potassium 4.5 mmol/L (3.5-5.1); Prothrombin Time 10.2 sec (9.0-12.0); Total Bilirubin 0.5 mg/dL (0.2-1.3); Total Protein 6.7 g/dL (6.3-8.2)
[2019-02-03] MEDS ORDERED: KETOROLAC 30 MG/ML 1 ML VIAL IVP STA (07:36)
--- NOTE | 2019-02-03 08:24 | CT ---
EXAMINATION TYPE: CT abdomen pelvis w con DATE OF EXAM: 02/03/2019 COMPARISON: NONE HISTORY: 63-year-old female with back pain TECHNIQUE: Contiguous axial scanning of the abdomen and pelvis following administration of 100 ml Iso andie 300 IV contrast. Delayed images through the kidneys and coronal/sagittal reconstructions perform ed. CT DLP: 2999 mGycm Automated exposure control for dose reduction was used. FINDINGS: Heart upper limits of normal in size without pericardial effusion. Prominent dependent atelectasis po sterior lung bases without pleural effusion. Tiny hiatal hernia. Liver mildly enlarged 18.1 cm there are no focal lesions seen. Portal venous system is patent. No shane iary ductal dilatation. Gallbladder surgically absent. Adrenal glands, kidneys, spleen, and pancreas appear within normal limits. Mild to moderate atherosclerotic calcifications abdominal aorta without aneurysm. A moderate-sized fat-containing umbilical hernia measuring up to 5.8 cm, coronal image 12. No dilated small bowel, free fluid, or free air. Scattered nonenlarged mesenteric lymph nodes measure up to 4 mm. However, numerous nonenlarged and borderline to mildly enlarged retroperitoneal lymph nodes are prese nt measuring up to 1.3 cm, coronal image 48. Additional nonenlarged and borderline to mildly enlarged lymph nodes along the common iliac chains me asuring up to 1.1 cm, coronal image 54. Additional mildly enlarged lymph nodes along the bilateral ex ternal iliac chains measuring up to 1.2 cm. Borderline to mildly enlarged inguinal chain lymph nodes measuring 1.6 cm on the left and 1.5 cm on the right. Mild to moderate stool burden. No pericolonic inflammatory change. Bladder is urine distended. Uterus anteverted. Ovaries appear small. No abnormal fluid collection in the pelvis. Bones: Degenerative changes at the hips. Advanced degenerative disc disease throughout the entire lumbar spine particularly severe at L1-L3 le vels with endplate irregularity and sclerosis. 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 Grade 1 retrolistheses at L1-L3 levels. A dvanced hypertrophic facet arthropathy is present. Suspect at least mild spinal canal stenoses at L2-L3, L3-L4, L4-L5. On the left, severe neuroforaminal stenosis at L1-L2 and L5-S1, moderate at other levels. On the right, severe neuroforaminal stenosis at L1-L2 and L5-S1, moderate to severe at L3-L4, and mod erate at additional levels. Overall vertebral body heights are preserved. IMPRESSION: 1. NUMEROUS NONENLARGED AND BORDERLINE TO MILDLY ENLARGED RETROPERITONEAL AND BILATERAL ILIAC CHAIN L YMPHADENOPATHY MEASURING UP TO 1.3 CM. WHILE SOME TYPE OF CONNECTIVE TISSUE DISORDER OR SYSTEMIC INFE CTION IS POSSIBLE, METASTATIC DISEASE AND LYMPHOMA NOT EXCLUDED AT THIS TIME. FURTHER EVALUATION OLU MMENDED. 2. SEVERE MULTILEVEL DEGENERATIVE DISC DISEASE WITH HYPERTROPHIC FACET ARTHROPATHY THROUGHOUT THE LUM BAR SPINE WITH DEGENERATIVE GRADE 1 RETROLISTHESES AT L1-L3 LEVELS. 3. AT LEAST MILD SPINAL CANAL STENOSES FROM L2 THROUGH L5 LEVELS AND SEVERE BILATERAL NEUROFORAMINAL STENOSES ON BOTH SIDES AT L1-L2 AND L5-S1. MODERATE TO SEVERE ON THE RIGHT L3-L4. 4. TINY HIATAL HERNIA AND A MODERATE SIZED FATTY UMBILICAL HERNIA.
[2019-02-03] MEDS ORDERED: NALOXONE 0.4 MG/ML 1 ML VIAL IV PRN (10:04)
[2019-02-03] MEDS ORDERED: SODIUM CHLORIDE 0.9% 1,000 ML IV SCH (10:15)
[2019-02-03 10:29] LABS: Amorphous Sediment,Urine Occasional /hpf; Appearance,Urine Cloudy (Clear); Bilirubin,Urine Negative (Negative); Blood,Urine Negative (Negative); Color,Urine Yellow; Glucose,Urine (UA) Negative (Negative); Ketones,Urine Negative (Negative); Leukocyte Esterase,Urine Negative (Negative); Nitrite,Urine Negative (Negative); PH, Urine 5.5 (5.0-8.0); Protein,Urine 1+ (Negative); Specific Gravity,Urine 1.028 (1.001-1.035); WBC,Urine <1 /hpf (0-5)
[2019-02-03] MEDS ORDERED: INFLUENZA VACCINE (6 MOS+) 60 MCG/0.5 ML SYRINGE IM ONE (11:33)
[2019-02-03] MEDS: HYDROcodone/APAP 5-325MG 1 EACH TAB PO PRN ×2 (18:00→21:45)
[2019-02-03] MEDS: ENOXAPARIN 40 MG/0.4 ML SYRINGE SQ SCH (20:14)
[2019-02-03] MEDS: PREGABALIN 100 MG CAP PO SCH ×2 (20:14→23:45)
[2019-02-03] MEDS ORDERED: predniSONE 20 MG TAB PO STA (21:29)
[2019-02-03] MEDS ORDERED: NAPROXEN 250 MG TAB PO STA (21:29)
--- NOTE | 2019-02-03 21:53 | P.HPIM ---
History of Present Illness H&P Date: 02/03/19 Chief Complaint: Low back pain History of presenting complaint: This is a pleasant 63-year-old patientof Dr. Mcfarlane. Chronic stable medical conditions include idiopathic peripheral neuropathy, morbid obesity, primary osteoarthritis, essential hypertension, hypothyroid, on medical hernia, Tronic urinary stress incontinence, chronic venous stasis, hyperlipidemia, bilateral lower extremity lymphedema. Had a baseline patient uses a wheelchair to get about. Patient is started up and was trying to get into the wheelchair and she noticed a twinge in the back. Has today went long the pain became rather severe localized to his lower back. There is some radiation down the left leg. And she is having some movement problems with the left hip. And she decided to come in. No trouble with her bowel or urine. 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 Was at [facility] for re[facility]. Recently. Smoked for 20 years stopped in 1990. Alcohol rarely. Physical examination: VITAL SIGNS: 97.8, 83, 18, 96/47, 97% on room air GENERAL: BMI 45.6, laying in bed, awake not in distress. EYES: Pupils equal. Conjunctiva normal. HEENT: External appearance of nose and ears normal, oral cavity grossly normal. NECK: JVD unable to assess; masses not palpable. HEART: Distal heart sounds; some edema. LUNGS: Respiratory rate normal; distant breath sounds. ABDOMEN: Soft, nontender, liver spleen not palpable, no masses palpable. Um bilical hernia PSYCH: Alert and oriented x3; mood and affect normal. NEUROLOGICAL: Cranial nerves grossly intact; no facial asymmetry, power and sensation grossly intact. LYMPHATICS: No lymph nodes palpable in the axilla and neck MUSCULAR skeletal: Less range of motion around the left hip compared to the right. Large lower extremity with venous is insufficiency and lymphedema INVESTIGATIONS, reviewed in the clinical context: White count 8.6 hemoglobin 9.6 potassium 4.5 creatinine 0.93 Computed tomography scan of the abdomen-multilevel DJD, some mild spinal canal stenosis and severe bilateral neuroforaminal stenosis in both sides at L1-L2 and L5-S1 and moderate to severe on the right at L3-L4. Assessment: -Acute low back pain, likely from spinal stenosis/herniated disc with radicu lopathy and down and affect. This is most likely from L1-L2 and L3-L4 nerve distribution. -Hyperlipidemia -Essential hypertension -Primary osteoarthritis -Hypothyroid -Chronic medical debility uses a vision -Idiopathic peripheral neuropathy -Chronic venous stasis -Bilateral lower extremity lymphedema -Chronic urinary stress incontinence -Chronic umbilical hernia Plan: We'll start the patient on naproxen 500 mg twice a day and also give prednisone 60 mg. Expect significant improvement by tomorrow morning. Most of these cases he's on the home anyway typically. We'll get orthopedic opinion. Other home medications were resumed. Lovenox for DVT prophylaxis. Patient is taking both Neurontin and Lyrica. After discussing with the patient have decided to stop the Neurontin. Past Medical History Past Medical History: Hyperlipidemia, Hypertension, Osteoarthritis (OA), Skin Disorder, Thyroid Disorder Additional Past Medical History / Comment(s): Nonambulatory/pivots to wheelchair normally, chronic low back pain, neuropathy bilateral feet, chronic venous stasis, current L heel/L yost wound, bilateral leg cellulitis, past L foot ulcer, lymphedema bilateral legs, DJD, past R ankle fracture x3, UTIs, stress incontinence, chronic anemia, umbilical hernia, hypothyroid. History of Any Multi-Drug Resistant Organisms: MRSA, Other MDRO Date of last positivie culture/infection: 12/14/18 MDRO Source:: Left Heel & Left Foot Past Surgical History: Section, Cholecystectomy, Orthopedic Surgery, Tubal Ligation Additional Past Surgical History / Comment(s): L leg I&D, bilateral knee arthroscopies, L great toe amp d/t nonhealing wound, PICCS, D&Cs Past Anesthesia/Blood Transfusion Reactions: Previous Problems w/ Anesthesia Additional Past Anesthesia/Blood Transfusion Reaction / Comment(s): slow to come out of it/muscle weakness Smoking Status: Former smoker - Past Family History Father Family Medical History: Cancer, Coronary Artery Disease (CAD), Myocardial Infarction ([place]), Prostate Disorder Additional Family Medical History / Comment(s): Prostate CA Mother Family Medical History: Cancer, CVA/TIA, Hyperlipidemia Additional Family Medical History / Comment(s): Lung CA-left lobe removed Medications and Allergies Home Medications Medication Instructions Recorded Confirmed Type Levothyroxine Sodium [Synthroid] 100 mcg PO DAILY 08/29/13 02/03/19 History amLODIPine [Norvasc] 5 mg PO DAILY 07/23/18 02/03/19 History Atorvastatin Calcium [Lipitor] 10 mg PO DAILY 10/06/18 02/03/19 History Lisinopril [Zestril] 20 mg PO DAILY tab 12/17/18 02/03/19 Rx Gabapentin [Neurontin] 600 mg PO BID 02/03/19 02/03/19 History Pregabalin [Lyrica] 100 mg PO TID 02/03/19 02/03/19 History Allergies Allergy/AdvReac Type Severity Reaction Status Date / Time Sulfa (Sulfonamide Allergy Rash/Hives Verified 02/03/19 08:41 Antibiotics) Physical Exam Vitals: Vital Signs Temp Pulse Pulse Resp BP BP Pulse Ox 02/03/19 15:12 97.8 F 83 18 96/47 97 02/03/19 14:34 99.1 F 74 18 117/52 95 02/03/19 13:24 98 F 84 18 116/84 95 02/03/19 10:20 115/61 94 L 02/03/19 10:10 115/61 86 L 02/03/19 10:00 107/61 92 L 02/03/19 09:50 107/61 94 L 02/03/19 09:40 107/61 92 L 02/03/19 09:30 117/65 89 L 02/03/19 09:20 117/65 88 L 02/03/19 09:10 117/65 90 L 02/03/19 09:00 121/55 94 L 02/03/19 08:50 121/55 94 L 02/03/19 08:40 121/55 94 L 02/03/19 08:30 116/60 93 L 02/03/19 08:20 116/60 91 L 02/03/19 08:10 116/60 87 L 02/03/19 08:00 91 L 02/03/19 07:30 122/62 02/03/19 07:20 122/62 94 L 02/03/19 07:10 122/62 97 02/03/19 07:02 96 18 122/62 100 02/03/19 07:00 121/64 02/03/19 06:50 121/64 02/03/19 06:40 121/64 02/03/19 06:30 113/63 02/03/19 06:20 113/63 95 02/03/19 06:10 113/63 97 02/03/19 06:00 119/66 97 02/03/19 05:50 119/66 99 02/03/19 05:41 98 02/03/19 05:38 98.9 F 95 20 98/46 98 Intake and Output 02/03/19 02/03/19 02/03/19 06:59 14:59 22:59 Other: Weight 136.078 kg Results CBC & Chem 7: 02/03/19 07:00 02/03/19 07:00 Labs: Abnormal Lab Results - Last 24 Hours (Table) 02/03/19 02/03/19 02/03/19 Range/Units 07:00 07:00 08:35 RBC 3.46 L (3.80-5.40) m/uL Hgb 9.6 L (11.4-16.0) gm/dL Hct 31.4 L (34.0-46.0) % MCHC 30.5 L (31.0-37.0) g/dL Plt Count 132 L (150-450) k/uL Lymphocytes # 0.6 L (1.0-4.8) k/uL BUN 21 H (7-17) mg/dL Glucose 111 H (74-99) mg/dL Urine Appearance Cloudy H (Clear) Urine Protein 1+ H (Negative) Amorphous Sediment Occasional H (None) /hpf Thrombosis Risk Factor Assmnt - Choose All That Apply Any of the Below Risk Factors Present?: Yes Each Factor Represents 1 point: Medical pt on bed rest, Obesity (BMI >25) Other Risk Factors: Yes Each Risk Factor Represents 2 Points: Age 61-74 years, Patient confined to bed Other congenital or acquired thrombophilia - If yes, enter type in comment: No Thrombosis Risk Factor Assessment Total Risk Factor Score: 6 Thrombosis Risk Factor Assessment Level: High Risk
[2019-02-03] MEDS: BACLOFEN 10 MG TAB PO SCH (23:45)
[2019-02-04] MEDS: LEVOTHYROXINE 100 MCG TAB PO SCH (05:55)
[2019-02-04] MEDS: LISINOPRIL 20 MG TAB PO SCH (07:40)
[2019-02-04] MEDS: ATORVASTATIN 10 MG TAB PO SCH (07:40)
[2019-02-04] MEDS: amLODIPine 5 MG TAB PO SCH (07:40)
[2019-02-04] MEDS: BACLOFEN 10 MG TAB PO SCH ×3 (07:40→20:55)
[2019-02-04] MEDS: PREGABALIN 100 MG CAP PO SCH ×3 (07:43→20:55)
[2019-02-04] MEDS: predniSONE 20 MG TAB PO SCH (07:43)
[2019-02-04] MEDS ORDERED: NAPROXEN 250 MG TAB PO SCH (09:00)
[2019-02-04] MEDS: HYDROcodone/APAP 7.5-325MG 1 EACH TAB PO PRN (17:38)
--- NOTE | 2019-02-04 18:09 | P.PN ---
Progress Note - Text Progress Note Date: 02/04/19 Chief Complaint: Low back pain History of presenting complaint: This is a pleasant 63-year-old patientof Dr. Mcfarlane. Chronic stable medical conditions include idiopathic peripheral neuropathy, morbid obesity, primary osteoarthritis, essential hypertension, hypothyroid, on medical hernia, Tronic urinary stress incontinence, chronic venous stasis, hyperlipidemia, bilateral lower extremity lymphedema. Had a baseline patient uses a wheelchair to get about. Patient is started up and was trying to get into the wheelchair and she noticed a twinge in the back. Has today went long the pain became rather severe localized to his lower back. There is some radiation down the left leg. And she is having some movement problems with the left hip. And she decided to come in. No trouble with her bowel or urine. Admitted with acute low back pain with radiculopathy related to spinal stenosis herniated disc. Today-pain is bit better. On steroids and NSAIDs. Consultation had been made to orthopedic and pain management yesterday. Tolerating a diet. Had a Cobos catheter placed. Active Medications Hydrocodone Bitart/Acetaminophen (Paden 7.5-325) 1 each PO Q6H PRN PRN Reason: Pain Last Admin: 02/04/19 17:38 Dose: 1 each Documented by: Amlodipine Besylate (Norvasc) 5 mg PO DAILY [facility] Last Admin: 02/04/19 07:40 Dose: 5 mg Documented by: Atorvastatin Calcium (Lipitor) 10 mg PO DAILY [facility] Last Admin: 02/04/19 07:40 Dose: 10 mg Documented by: Baclofen (Lioresal) 5 mg PO TID [facility] Last Admin: 02/04/19 15:02 Dose: 5 mg Documented by: Enoxaparin Sodium (Lovenox) 40 mg SQ HS [facility] Last Admin: 02/03/19 20:14 Dose: 40 mg Documented by: Levothyroxine Sodium (Synthroid) 100 mcg PO 0630 [facility] Last Admin: 02/04/19 05:55 Dose: 100 mcg Documented by: Lisinopril (Zestril) 20 mg PO DAILY [facility] Last Admin: 02/04/19 07:40 Dose: 20 mg Documented by: Naloxone HCl (Narcan) 0.2 mg IV Q2M PRN PRN Reason: Opioid Reversal Prednisone () 60 mg PO DAILY [facility] Last Admin: 02/04/19 07:43 Dose: 60 mg Documented by: Pregabalin (Lyrica) 100 mg PO TID [facility] Last Admin: 02/04/19 15:02 Dose: 100 mg Documented by: Physical examination: VITAL SIGNS: 96.9, 85, 16, 125/62, 96% on 2 L GENERAL: laying in bed, awake not in distress. EYES: Pupils equal. Conjunctiva normal. HEENT: External appearance of nose and ears normal, oral cavity grossly normal. NECK: JVD unable to assess; masses not palpable. HEART: Distal heart sounds; some edema. LUNGS: Respiratory rate normal; distant breath sounds. ABDOMEN: Soft, nontender, liver spleen not palpable, no masses palpable. Umbilical hernia PSYCH: Alert and oriented x3; mood and affect normal. MUSCULAR skeletal: Less range of motion around the left hip compared to the right. Large lower extremity with venous is insufficiency and lymphedema INVESTIGATIONS, reviewed in the clinical context: White count 8.6 hemoglobin 9.6 potassium 4.5 creatinine 0.93 Computed tomography scan of the abdomen-multilevel DJD, some mild spinal canal stenosis and severe bilateral neuroforaminal stenosis in both sides at L1-L2 and L5-S1 and moderate to severe on the right at L3-L4. Assessment: -Acute low back pain, likely from spinal stenosis/herniated disc with radiculopathy and down and affect. This is most likely from L1-L2 and L3-L4 nerve distribution. Some improvement. -Hyperlipidemia -Essential hypertension -Primary osteoarthritis -Hypothyroid -Chronic medical debility uses a vision -Idiopathic peripheral neuropathy -Chronic venous stasis -Bilateral lower extremity lymphedema -Chronic urinary stress incontinence -Chronic umbilical hernia -Nonspecific multiple mildly enlarged retroperitoneal and bilateral iliac chain lymphadenopathy, being followed by oncology Plan: Awaiting input from orthopedic spine and pain management team. Patient had been put on steroids and NSAIDs. Some improvement in pain. He still significant. Await input from oncology regarding further workup for the intra-abdominal retroperitoneal lymph nodes. Care was discussed with the patient.
--- NOTE | 2019-02-04 19:52 | P.CONS ---
History of Present Illness - Reason for Consult Consult date: 02/04/19 Retroperitoneal lymphadenopathy Requesting physician: Alessandro Lock - Chief Complaint radiculopathy - History of Present Illness This is a patient with multiple medical problems who presents for complaints of worsening radiculopathy and pain. On presentation CBC revealed Lymphocytopenia, Normocytic anemia (which appears chronic), and mild thrombocytopenia. CT scan Chest abdomen and pelvis revealed numerous non enlarged borderline retroperitoneal adenopathy. BEcause of this oncology was asked to evaluate. A consult has been placed to further evaluate abnormalities in spine possibily responsble for her pain and symptoms. She has been in and out of hospital over 7 times in past year; treated for staph infection and requiring outpatient antibiotics and rehab at [facility]. She complains of urinary retention, a hale was placed. She admits to chronic anemia, never had GI evaluation or Colonoscopy, denies blood in stool she can see. She denies abdominal pain, N/V/D Review of Systems A 14 point review of systems was assessed and completed and are all negative except for HPI Past Medical History Past Medical History: Hyperlipidemia, Hypertension, Osteoarthritis (OA), Skin Disorder, Thyroid Disorder Additional Past Medical History / Comment(s): Nonambulatory/pivots to wheelchair normally, chronic low back pain, neuropathy bilateral feet, chronic venous stasis, current L heel/L yost wound, bilateral leg cellulitis, past L foot ulcer, lymphedema bilateral legs, DJD, past R ankle fracture x3, UTIs, stress incontinence, chronic anemia, umbilical hernia, hypothyroid. History of Any Multi-Drug Resistant Organisms: MRSA, Other MDRO Year Discovered:: 12/14/18 MDRO Source:: Left Heel & Left Foot Past Surgical History: Section, Cholecystectomy, Orthopedic Surgery, Tubal Ligation Additional Past Surgical History / Comment(s): L leg I&D, bilateral knee arthroscopies, L great toe amp d/t nonhealing wound, PICCS, D&Cs Past Anesthesia/Blood Transfusion Reactions: Previous Problems w/ Anesthesia Additional Past Anesthesia/Blood Transfusion Reaction / Comm: slow to come out of it/muscle weakness Smoking Status: Former smoker - Past Family History Father Family Medical History: Cancer, Coronary Artery Disease (CAD), Myocardial Infarction ([place]), Prostate Disorder Additional Family Medical History / Comment(s): Prostate CA Mother Family Medical History: Cancer, CVA/TIA, Hyperlipidemia Additional Family Medical History / Comment(s): Lung CA-left lobe removed Medications and Allergies Home Medications Medication Instructions Recorded Confirmed Type Levothyroxine Sodium [Synthroid] 100 mcg PO DAILY 08/29/13 02/03/19 History amLODIPine [Norvasc] 5 mg PO DAILY 07/23/18 02/03/19 History Atorvastatin Calcium [Lipitor] 10 mg PO DAILY 10/06/18 02/03/19 History Lisinopril [Zestril] 20 mg PO DAILY tab 12/17/18 02/03/19 Rx Pregabalin [Lyrica] 100 mg PO TID 02/03/19 02/03/19 History Baclofen 5 mg PO TID PRN #30 tablet 02/04/19 Rx Naproxen [Naprosyn] 250 mg PO TID #21 tab 02/04/19 Rx predniSONE 10 mg PO DAILY #30 tab 02/04/19 Rx Allergies Allergy/AdvReac Type Severity Reaction Status Date / Time Sulfa (Sulfonamide Allergy Rash/Hives Verified 02/03/19 08:41 Antibiotics) Physical Exam Vitals: Vital Signs Temp Pulse Pulse Resp BP BP Pulse Ox 02/04/19 11:40 97.8 F 68 16 131/71 95 02/04/19 04:56 97.7 F 82 16 116/67 91 L 02/03/19 21:00 98.3 F 79 16 96/55 91 L 02/03/19 15:12 97.8 F 83 18 96/47 97 02/03/19 14:34 99.1 F 74 18 117/52 95 Intake and Output 02/03/19 02/04/19 02/04/19 22:59 06:59 14:59 Intake Total 590 590 Balance 590 590 Intake: Oral 590 590 Other: Voiding Method Bedpan Indwelling Catheter Gen: Alert and Oriented, NAD Head: NCNT, poor denition Neck Supple Heart RRR Lungs No increased effort CTA B Abdomen: S/ND/NT Ext: No Rash, No Edema, Equal Strength Psych: Calm and Coroperative Neuro: No Focal Deficits Noted. MOrbid obesity BLE Edema, Dryness and Evidence venous insufficiency. Results CBC & Chem 7: 02/03/19 07:00 02/03/19 07:00 CT scan - abdomen: report reviewed CT scan - pelvis: report reviewed Assessment and Plan Plan: Normocytic Anemia: - Chronic and whitin her normal baseline - Likely secondary to chronic inflammation although with adenopathym(possibly new) and mild thrombocytopenia a full work-up orderd Mild Thrombocytopenia: - Likely secondary to recent recurrent infections and antibiotics Retroperitoneal Adenopathy: - This is likely reactive process - WIll check further bloodwork and monitor - WI=ould recommened repeat imaging in 3 months outpatient I have completed the full history and physical of this patient and developed the complete impression and plan, Agree with Liz PRIEST, dictated as a scribe
[2019-02-04] MEDS: ENOXAPARIN 40 MG/0.4 ML SYRINGE SQ SCH (20:55)
[2019-02-05] MEDS: HYDROcodone/APAP 7.5-325MG 1 EACH TAB PO PRN ×3 (00:45→19:26)
[2019-02-05 02:10] LABS: Protein, Total 5.5 g/dL (6.2-8.2)
[2019-02-05 02:19] LABS: Ferritin 158.4 ng/mL (10.0-291.0); Folate, Serum 9.5 ng/mL
[2019-02-05 02:38] LABS: Iron Saturation 11.93 (12.00-45.00)
[2019-02-05] MEDS: LEVOTHYROXINE 100 MCG TAB PO SCH (06:06)
[2019-02-05] MEDS: predniSONE 20 MG TAB PO SCH (08:43)
[2019-02-05] MEDS: PREGABALIN 100 MG CAP PO SCH ×3 (08:43→22:11)
[2019-02-05] MEDS: BACLOFEN 10 MG TAB PO SCH ×3 (08:43→22:12)
[2019-02-05] MEDS: ATORVASTATIN 10 MG TAB PO SCH (08:43)
[2019-02-05] MEDS: LISINOPRIL 20 MG TAB PO SCH (08:43)
[2019-02-05] MEDS: amLODIPine 5 MG TAB PO SCH (08:43)
--- NOTE | 2019-02-05 10:34 | P.CNOR ---
History of Present Illness - [facility] Consult date: 02/05/19 Consult reason: low back pain History of present illness: Patient's a pleasant 63-year-old female with new onset of low back pain. She has a significant medical history with being a minimal ambulator and wheelchair and later at home with long history of nonhealing ulcers with MRSA at her heel and recurrent infections at her heel be treated with IV antibiotics. The patient says that on without any incident or trauma she is started having pain at her lower back. She was in her wheelchair normally issues able to get up out of her wheelchair but was having difficulty with this. She denies any history of any pain in her back. She denies any problems in her lower extremities with numbness [place] her weakness but she says that she had significant difficulty trying to get out of her wheelchair which led into Thursday. She was having increased pain at her lower back and called EMS to bring her to the hospital. She was evaluated and head computed tomography scan which showed some lymph node inflammation diffusely at her low back. There is no evidence of any new fracture. She had significant disc degeneration and arthritis at her lower back and was admitted. She is not yet been out of bed here in Hospital. She says the pain is not bad when she is laying down. She says her left leg does feel heavy but it is always her bed leg to some degree. She still is getting treatment epidural left heel in regards to infection and osteomyelitis. She denies any changes in bowel or function. She says her legs are not having pain. Her pain just started on . There is no antecedent pain for her. Review of Systems Denies changes in bowel bladder function she has an indwelling Cobos. She has chronic nonhealing ulcers of her left heel. She has history dictation and right toes. She is a minimal ambulator and uses a wheelchair at home. Denies any his tory of back pain. Denies any chest pain or shortness of breath. Past Medical History Past Medical History: Hyperlipidemia, Hypertension, Osteoarthritis (OA), Skin Disorder, Thyroid Disorder Additional Past Medical History / Comment(s): Nonambulatory/pivots to wheelchair normally, chronic low back pain, neuropathy bilateral feet, chronic venous stasis, current L heel/L yost wound, bilateral leg cellulitis, past L foot ulcer, lymphedema bilateral legs, DJD, past R ankle fracture x3, UTIs, stress incontinence, chronic anemia, umbilical hernia, hypothyroid. History of Any Multi-Drug Resistant Organisms: MRSA, Other MDRO Year Discovered:: 12/14/18 MDRO Source:: Left Heel & Left Foot Past Surgical History: Section, Cholecystectomy, Orthopedic Surgery, Tubal Ligation Additional Past Surgical History / Comment(s): L leg I&D, bilateral knee arthroscopies, L great toe amp d/t nonhealing wound, PICCS, D&Cs Past Anesthesia/Blood Transfusion Reactions: Previous Problems w/ Anesthesia Additional Past Anesthesia/Blood Transfusion Reaction / Comm: slow to come out of it/muscle weakness Smoking Status: Former smoker - Past Family History Father Family Medical History: Cancer, Coronary Artery Disease (CAD), Myocardial Infarction ([place]), Prostate Disorder Additional Family Medical History / Comment(s): Prostate CA Mother Family Medical History: Cancer, CVA/TIA, Hyperlipidemia Additional Family Medical History / Comment(s): Lung CA-left lobe removed Medications and Allergies Home Medications Medication Instructions Recorded Confirmed Type Levothyroxine Sodium [Synthroid] 100 mcg PO DAILY 08/29/13 02/03/19 History amLODIPine [Norvasc] 5 mg PO DAILY 07/23/18 02/03/19 History Atorvastatin Calcium [Lipitor] 10 mg PO DAILY 10/06/18 02/03/19 History Lisinopril [Zestril] 20 mg PO DAILY tab 12/17/18 02/03/19 Rx Pregabalin [Lyrica] 100 mg PO TID 02/03/19 02/03/19 History Baclofen 5 mg PO TID PRN #30 tablet 02/04/19 Rx Naproxen [Naprosyn] 250 mg PO TID #21 tab 02/04/19 Rx predniSONE 10 mg PO DAILY #30 tab 02/04/19 Rx Allergies Allergy/AdvReac Type Severity Reaction Status Date / Time Sulfa (Sulfonamide Allergy Rash/Hives Verified 02/03/19 08:41 Antibiotics) Physical Examination Osteopathic Statement: *. No significant issues noted on an osteopathic structural exam other than those noted in the History and Physical/Consult. - L Spine: dermatomal strength & reflexes bilateral Strength: hip flexion: 5/5 (And her lower back, she is obese. There is no open wounds lacerations or abrasions. There is no rash. There is no bruising. She is nontender diffusely her back. She has difficulty rolling over to her side. Her lower extremity she does have sustained dorsal flexion plantarflexion she has chronic changes at her lower extremities with diffuse deconditioning there is bandaging over her left ankle and heel. Her calves and thighs soft nontender. She is able to flex and extend her knees ankles. Toes. She is able lift her legs up off the bed but she has more difficulty on the left side.) Results - Labs Labs: Abnormal Lab Results - Last 24 Hours (Table) 02/04/19 02/04/19 Range/Units 19:53 19:53 ESR 48 H (0-20) mm/hr Iron 26 L (50-170) ug/dL TIBC 218 L (228-460) ug/dL Iron Saturation 11.93 L (12.00-45.00) Total Protein (PEP) 5.5 L (6.2-8.2) g/dL H & H 02/03/19 Range/Units 07:00 Hgb 9.6 L (11.4-16.0) gm/dL Hct 31.4 L (34.0-46.0) % Coagulation 02/03/19 Range/Units 07:00 INR 0.9 (<1.2) Result Diagrams: 02/03/19 07:00 02/03/19 07:00 - Diagnostic results CT Scan - lumbar: report reviewed, image reviewed (Computed tomography scan of the lumbar area is reviewed shows severe disc degeneration from L2 to S1. She has evidence of significant stenosis L2-3 and L5-S1 and L1-2. She is facet arthrosis. There is no obvious fracture. 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 She has significant deconditioning and chronic degenerative spondylitic changes at her lumbar spine. She seems had an exacerbation of her degenerative disease at her low back which should resolve with conservative treatment. She has been taking some anti-inflammatory with Naprosyn but may do well with short course of steroid medication and the skull therapy to help her with her mobility and potential reconditioning on long-term. I does not have any surgical plans for her and I think she can be treated conservatively on outpatient basis from a spine standpoint. She is being seen by hematology oncology as well and they're managing appropriately We will have physical therapy see her for her mobilization and start her on just short course of oral steroid if it is okay with her primary service.
--- NOTE | 2019-02-05 10:43 | P.PN ---
Subjective Progress Note Date: 02/05/19 The patient continues to complain of back pain radiating across the mid back. At this time she is not really complaining of significant abdominal discomfort. Generalized weakness persists. No obvious bleeding, fevers or chills Objective - Vital Signs Vital signs: Vital Signs Temp 97.5 F L 02/05/19 05:00 Pulse 65 02/05/19 05:00 Resp 16 02/05/19 05:00 BP 125/63 02/05/19 05:00 Pulse Ox 93 L 02/05/19 05:00 Intake & Output 02/04/19 02/05/19 02/05/19 18:59 06:59 18:59 Intake Total 590 Output Total 1275 300 Balance -1275 290 Intake: Oral 590 Output: Urine 1275 300 Other: Voiding Method Indwelling Catheter Indwelling Catheter # Bowel Movements 0 - Constitutional General appearance: Present: no acute distress - EENT Eyes: Present: EOMI ENT: Present: hearing grossly normal, normal oropharynx - Respiratory Respiratory: bilateral: CTA - Cardiovascular Rhythm: regular Heart sounds: normal: S1, S2 - Gastrointestinal General gastrointestinal: Present: normal bowel sounds, soft - Integumentary Integumentary Comment(s): Wu skin on both lower extremities. Left foot bandaged - Neurologic Neurologic: Present: CNII-XII intact - Musculoskeletal Musculoskeletal: Present: generalized weakness, strength equal bilaterally - Psychiatric Psychiatric: Present: A&O x's 3, appropriate affect - Labs CBC & Chem 7: 02/03/19 07:00 02/03/19 07:00 Labs: Abnormal Lab Results - Last 24 Hours (Table) 02/04/19 02/04/19 Range/Units 19:53 19:53 ESR 48 H (0-20) mm/hr Iron 26 L (50-170) ug/dL TIBC 218 L (228-460) ug/dL Iron Saturation 11.93 L (12.00-45.00) Total Protein (PEP) 5.5 L (6.2-8.2) g/dL Assessment and Plan (1) Bicytopenia Narrative/Plan: At this time this is felt to be more likely related to chronic inflammation and antibiotic use, based on the patient's history, than a primary hematologic problem. Counts continue to be stable in a safe range. Cytopenia workup is in progress. This is negative so far. Iron saturation is mildly reduced, but ferritin is greater than 150, which is consistent with anemia of inflammation. B12 is normal but borderline. MMA levels are pending to rule out deficiency. - Continue to monitor till labs are completed resulted Current Visit: Yes Status: Acute Code(s): D75.89 - OTHER SPECIFIED DISEASES OF BLOOD AND BLOOD-FORMING ORGANS SNOMED Code(s): 79632595 (2) Retroperitoneal lymphadenopathy Narrative/Plan: Review of the scans indicate this to be quite borderline. Most of the lymph node mentioned are prominent but actually not enlarged by CT criteria. Given the patient's history this is much more likely to be reactive/inflammatory process. Lab workup has been ordered, which actually overlaps with the cytopenia workup. If this is negative, would recommend follow-up scans in about 2-3 months to check for stability versus progression Current Visit: Yes Status: Acute Code(s): R59.0 - LOCALIZED ENLARGED LYMPH NODES SNOMED Code(s): 343355247 (3) Intractable back pain Narrative/Plan: The patient's scans were reviewed. There appeared to be no evidence of any destructive process indicative of malignancy. She did have significant d egenerative disease. The case was discussed with orthopedic spine service. On that evaluation, they also agreed that based on the clinical picture an acute strain was much more likely, and additional workup at this time such as an MRI was likely not indicated. Defer to orthopedic spine service for further management Current Visit: Yes Status: Acute Code(s): M54.9 - DORSALGIA, UNSPECIFIED SNOMED Code(s): 507282541
[2019-02-05 10:46] LABS: Free Kappa Lt Chain Qnt, Serum 2.37 mg/dL (0.33-1.94)
--- NOTE | 2019-02-05 16:36 | P.PN ---
Subjective Progress Note Date: 02/05/19 Principal diagnosis: Acute low back pain Ms. Spicer is a 63-year-old female with a past medical history of idiopathic peripheral neuropathy, morbid obesity, primary osteoarthritis, essential hypertension, hypothyroid, on medical hernia, Tronic urinary stress incontinence, chronic venous stasis, hyperlipidemia, bilateral lower extremity lymphedema coming in with a chief complaint of acute low back pain. Patient is wheelchair-bound at baseline and noticed that she had severe localized low back pain. Patient had a CT of the abdomen and pelvis showing severe multilevel dege nerative disc disease throughout the lumbar spine. On 02/05/2019- patient is still complaining of low back pain 8 out of 10. She denies having any tingling or numbness in her lower extremities. No bowel or bladder incontinence. Yesterday patient had urinary retention, bladder scan was showing 900 mL of urinary retention, so Cobos's catheter was placed. On review of systems: Constitutional-no fevers chills or rigors Respiratory-no cough or difficulty in breathing Cardiovascular-no chest pain or palpitations GI-no abdominal pain nausea vomiting or diarrhea - urinary retention with Cobos's catheter placement Active Medications Hydrocodone Bitart/Acetaminophen ([place] 7.5-325) 1 each PO Q6H PRN PRN Reason: Pain Last Admin: 02/05/19 08:48 Dose: 1 each Documented by: Amlodipine Besylate (Norvasc) 5 mg PO DAILY [facility] Last Admin: 02/05/19 08:43 Dose: 5 mg Documented by: Atorvastatin Calcium (Lipitor) 10 mg PO DAILY [facility] Last Admin: 02/05/19 08:43 Dose: 10 mg Documented by: Baclofen (Lioresal) 5 mg PO TID [facility] Last Admin: 02/05/19 16:14 Dose: 5 mg Documented by: Enoxaparin Sodium (Lovenox) 40 mg SQ HS [facility] Last Admin: 02/04/19 20:55 Dose: 40 mg Documented by: Levothyroxine Sodium (Synthroid) 100 mcg PO 0630 [facility] Last Admin: 02/05/19 06:06 Dose: 100 mcg Documented by: Lisinopril (Zestril) 20 mg PO DAILY [facility] Last Admin: 02/05/19 08:43 Dose: 20 mg Documented by: Naloxone HCl (Narcan) 0.2 mg IV Q2M PRN PRN Reason: Opioid Reversal Prednisone () 60 mg PO DAILY [facility] Last Admin: 02/05/19 08:43 Dose: 60 mg Documented by: Pregabalin (Lyrica) 100 mg PO TID [facility] Last Admin: 02/05/19 16:13 Dose: 100 mg Documented by: Objective - Vital Signs Vital signs: Vital Signs Temp 97.9 F 02/05/19 12:40 Pulse 61 02/05/19 12:40 Resp 16 02/05/19 12:40 BP 141/66 02/05/19 12:40 Pulse Ox 93 L 02/05/19 12:40 Intake & Output 02/04/19 02/05/19 02/05/19 18:59 06:59 18:59 Intake Total 590 Output Total 1275 300 Balance -1275 290 Intake: Oral 590 Output: Urine 1275 300 Other: Voiding Method Indwelling Catheter Indwelling Catheter # Bowel Movements 0 - Exam ENERAL: lying in bed, awake not in distress. EYES: Pupils equal. Conjunctiva normal. HEENT: External appearance of nose and ears normal, oral cavity grossly normal. NECK: JVD unable to assess; masses not palpable. HEART: Distal heart sounds; some edema. LUNGS: Respiratory rate normal; distant breath sounds. ABDOMEN: Soft, nontender, liver spleen not palpable, no masses palpable. Umbilical hernia PSYCH: Alert and oriented x3; mood and affect normal. MUSCULAR skeletal: Less range of motion around the left hip compared to the right. EXTREMITIES: Large lower extremity with venous is insufficiency and lymphedema, chronic stasis dermatitis. Chronic Ulcer on the left heel. - Labs CBC & Chem 7: 02/03/19 07:00 02/03/19 07:00 Labs: Abnormal Lab Results - Last 24 Hours (Table) 02/04/19 02/04/19 Range/Units 19:53 19:53 ESR 48 H (0-20) mm/hr Iron 26 L (50-170) ug/dL TIBC 218 L (228-460) ug/dL Iron Saturation 11.93 L (12.00-45.00) Total Protein (PEP) 5.5 L (6.2-8.2) g/dL Free [place] LC, Quant 2.37 H (0.33-1.94) mg/dL Assessment and Plan Assessment: Assessment: -Acute low back pain, likely from spinal stenosis/herniated disc with radiculopathy and down and affect. This is most likely from L1-L2 and L3-L4 nerve distribution. -Hyperlipidemia -Essential hypertension -Primary osteoarthritis -Hypothyroid -Chronic medical debility uses a vision -Idiopathic peripheral neuropathy -Chronic venous stasis -Bilateral lower extremity lymphedema -Chronic urinary stress incontinence -Chronic umbilical hernia -Nonspecific multiple mildly enlarged retroperitoneal and bilateral iliac chain lymphadenopathy, being followed by oncology PLAN: Patient was evaluated by orthopedic team, no acute intervention. She was evaluated by Dr. Mackenzie and his team, suggested a follow-up of CT in 2-3 months for her retroperitoneal lymphadenopathy. Pain services consult is still pending. We'll continue with the current medication regimen. GI/DVT prophylaxis. Further recommendations to follow depending on the progress of the patient.
[2019-02-05] MEDS: ENOXAPARIN 40 MG/0.4 ML SYRINGE SQ SCH (22:12)
[2019-02-06] MEDS: HYDROcodone/APAP 7.5-325MG 1 EACH TAB PO PRN ×3 (03:08→21:51)
[2019-02-06] MEDS: LEVOTHYROXINE 100 MCG TAB PO SCH (06:09)
[2019-02-06 08:14] LABS: Basophils % (A) 0 %; Eosinophils % (A) 0 %; HCT 30.6 % (34.0-46.0); HGB 9.8 gm/dL (11.4-16.0); Hypochromasia Slight; Lymphocytes % (A) 20 %; MCH 29.7 pg (25.0-35.0); MCHC 31.9 g/dL (31.0-37.0); MCV 93.1 fL (80.0-100.0); Mean Platelet Volume 8.7; Monocytes # (A) 0.4 k/uL (0-1.0); Monocytes % (A) 7 %; Neutrophils # (A) 3.5 k/uL (1.3-7.7); Neutrophils % (A) 69 %; Platelet Count 175 k/uL (150-450); RBC 3.28 m/uL (3.80-5.40); RDW 14.2 % (11.5-15.5)
[2019-02-06 08:19] LABS: African American GFR (CKD) >90 (>60 ml/min/1.73 sqM); Anion Gap 5 mmol/L; Blood Urea Nitrogen 22 mg/dL (7-17); Calcium 9.2 mg/dL (8.4-10.2); Carbon Dioxide 28 mmol/L (22-30); Chloride 108 mmol/L (98-107); Glucose 85 mg/dL (74-99); Potassium 4.3 mmol/L (3.5-5.1); Sodium 141 mmol/L (137-145)
[2019-02-06] MEDS: ATORVASTATIN 10 MG TAB PO SCH (08:32)
[2019-02-06] MEDS: amLODIPine 5 MG TAB PO SCH (08:32)
[2019-02-06] MEDS: BACLOFEN 10 MG TAB PO SCH ×3 (08:32→21:08)
[2019-02-06] MEDS: LISINOPRIL 20 MG TAB PO SCH (08:32)
[2019-02-06] MEDS: predniSONE 20 MG TAB PO SCH (08:32)
[2019-02-06] MEDS: PREGABALIN 100 MG CAP PO SCH ×3 (08:36→21:08)
--- NOTE | 2019-02-06 15:13 | P.CONS ---
History of Present Illness - Reason for Consult Consult date: 02/06/19 Left heel wound Requesting physician: Shannon Rios - Chief Complaint Low back pain 1 day, nonhealing wound at the left heel 2 weeks - History of Present Illness Patient is 63 year old female presenting to the ER at [facility] on 02/03/2019 for back pain. Her pain started today before she presented to the hospital the patient's it was unable to get out of her wheelchair to pivot, she did have a CT of abdominal pelvis CT shows mild spinal canal stenosis and lumbar spine level also shows numerous nonenlarged and borderline to mildly enlarged right peritoneal and bilateral iliac chain lymph adenopathy for the patient has been evaluated by oncology, patient did have this chronic nonhealing wound to the left heel area for which I was asked to see the patient for further evaluation, patient did have a previous history of infection at this time and has been treated with multiple courses of antibiotic and apparently the patient says she the sphincter of the [place] about 2 weeks ago the patient is currently afebrile the patient denies having any pain to the left heel wound area the wound had did have some surrounding bruise but no s ignificant slough tissue or any foul-smelling drainage and the patient currently not on any systemic chemotherapy since she has been admitted to the Hospital about 4 days ago Review of Systems CONSTITUTIONAL: Positive for weakness. Denies Fever EYES: No complaint. ENT:No complaint. RESPIRATORY: No complaint. CARDIOVASCULAR: No complaint. GENITOURINARY: No complaint. GASTROINTESTINAL: No complaint. MUSCULOSKELETAL: As per history of present illness. INTEGUMENTARY: As per history of present illness PSYCHOLOGICAL: No complaint. ENDOCRINE: No complaint. NEUROLOGIC: No complaint. Past Medical History Past Medical History: Hyperlipidemia, Hypertension, Osteoarthritis (OA), Skin Disorder, Thyroid Disorder Additional Past Medical History / Comment(s): Nonambulatory/pivots to wheelchair normally, chronic low back pain, neuropathy bilateral feet, chronic venous stasis, current L heel/L yost wound, bilateral leg cellulitis, past L foot ulcer, lymphedema bilateral legs, DJD, past R ankle fracture x3, UTIs, stress incontinence, chronic anemia, umbilical hernia, hypothyroid. History of Any Multi-Drug Resistant Organisms: MRSA, Other MDRO Year Discovered:: 12/14/18 MDRO Source:: Left Heel & Left Foot Past Surgical History: Section, Cholecystectomy, Orthopedic Surgery, Tubal Ligation Additional Past Surgical History / Comment(s): L leg I&D, bilateral knee arthroscopies, L great toe amp d/t nonhealing wound, PICCS, D&Cs Past Anesthesia/Blood Transfusion Reactions: Previous Problems w/ Anesthesia Additional Past Anesthesia/Blood Transfusion Reaction / Comm: slow to come out of it/muscle weakness Smoking Status: Former smoker - Past Family History Father Family Medical History: Cancer, Coronary Artery Disease (CAD), Myocardial Infarction ([place]), Prostate Disorder Additional Family Medical History / Comment(s): Prostate CA Mother Family Medical History: Cancer, CVA/TIA, Hyperlipidemia Additional Family Medical History / Comment(s): Lung CA-left lobe removed Medications and Allergies Home Medications Medication Instructions Recorded Confirmed Type Levothyroxine Sodium [Synthroid] 100 mcg PO DAILY 08/29/13 02/03/19 History amLODIPine [Norvasc] 5 mg PO DAILY 07/23/18 02/03/19 History Atorvastatin Calcium [Lipitor] 10 mg PO DAILY 10/06/18 02/03/19 History Lisinopril [Zestril] 20 mg PO DAILY tab 12/17/18 02/03/19 Rx Pregabalin [Lyrica] 100 mg PO TID 02/03/19 02/03/19 History Baclofen 5 mg PO TID PRN #30 tablet 02/04/19 Rx Naproxen [Naprosyn] 250 mg PO TID #21 tab 02/04/19 Rx predniSONE 10 mg PO DAILY #30 tab 02/04/19 Rx Allergies Allergy/AdvReac Type Severity Reaction Status Date / Time Sulfa (Sulfonamide Allergy Rash/Hives Verified 02/03/19 08:41 Antibiotics) Physical Exam Vitals: Vital Signs Temp Pulse Resp BP Pulse Ox 02/06/19 05:00 97.7 F 58 L 16 136/62 94 L 02/05/19 21:00 97.7 F 67 16 133/64 92 L 02/05/19 16:00 61 16 Intake and Output 02/05/19 02/06/19 02/06/19 22:59 06:59 14:59 Intake Total 950 Output Total 600 Balance 950 -600 Intake: Oral 950 Output: Urine 600 Other: Voiding Method Indwelling Catheter Indwelling Catheter GENERAL DESCRIPTION: Middle-aged female lying in bed, no distress. No tachypnea or accessory muscle of respiration use. HEENT: Shows Pallor , no scleral icterus. Oral mucous membrane is dry. No pharyngeal erythema or thrush NECK: Trachea central, no thyromegaly. LUNGS: Unlabored breathing. Clear to auscultation anteriorly. No wheeze or crackle. HEART: S1, S2, regular rate and rhythm. No loud murmur ABDOMEN: Soft, no tenderness , guarding or rigidity, no organomegaly EXTREMITIES: Left heel and did have a wound with some surrounding bruise and no slough tissue at the base of the wound no surrounding redness or any foul- smelling drainage. SKIN: No rash, no masses palpable. NEUROLOGICAL: The patient is awake, alert, oriented x3, mood and affect normal. Results CBC & Chem 7: 02/06/19 07:23 02/06/19 07:23 Labs: Abnormal Lab Results - Last 24 Hours (Table) 02/06/19 02/06/19 Range/Units 07:23 07:23 RBC 3.28 L (3.80-5.40) m/uL Hgb 9.8 L (11.4-16.0) gm/dL Hct 30.6 L (34.0-46.0) % Chloride 108 H (98-107) mmol/L BUN 22 H (7-17) mg/dL Assessment and Plan Assessment: 1-patient with a chronic nonhealing wound to the left heel area a stage III pressure ulcer and previous history of infection secondary MRSA however currently there are no signs or symptoms of infection has would recommend local wound care (1) Pressure ulcer of left heel, stage 3 Current Visit: Yes Status: Acute Code(s): L89.623 - PRESSURE ULCER OF LEFT HEEL, STAGE 3 SNOMED Code(s): 369483094 Plan: 1-local wound care with Aquacel silver dressing secured with Kerlix followed by application of heal protectors to be changed every 48 hours 2-no need for systemic antibiotic therapy We will follow on clinical condition and cultures to further adjust medication if needed Thank you for this consultation will follow this patient with you Time with Patient: Greater than 30
--- NOTE | 2019-02-06 15:24 | P.PN ---
Subjective Progress Note Date: 02/06/19 Principal diagnosis: Acute low back pain Ms. Spicer is a 63-year-old female with a past medical history of idiopathic peripheral neuropathy, morbid obesity, primary osteoarthritis, essential hypertension, hypothyroid, on medical hernia, Tronic urinary stress incontinence, chronic venous stasis, hyperlipidemia, bilateral lower extremity lymphedema coming in with a chief complaint of acute low back pain. Patient is wheelchair-bound at baseline and noticed that she had severe localized low back pain. Patient had a CT of the abdomen and pelvis showing severe multilevel degenerative disc disease throughout the lumbar spine. On 02/06/19 - patient states that her low back pain is much better, she thinks the steroids have been helping her. She received only 2 doses of [place] overnight. Patient still has Cobos's catheter in place. She denies having any dysuria or hematuria. Patient denies having any chest pain or palpitations. No cough or difficulty in breathing. No abdominal pain, nausea, vomiting or diarrhea. She still has a left heel wound. Active Medications Generic Name Dose Route Start Last Admin Trade Name Freq PRN Reason Stop Dose Admin Hydrocodone Bitart/Acetaminophen 1 each 02/04/19 17:03 02/06/19 03:08 [place] 7.5-325 PO 1 each Q6H PRN Administration Pain Amlodipine Besylate 5 mg 02/04/19 09:00 02/06/19 08:32 Norvasc PO 5 mg DAILY VENKAT Administration Atorvastatin Calcium 10 mg 02/04/19 09:00 02/06/19 08:32 Lipitor PO 10 mg DAILY VENKAT Administration Baclofen 5 mg 02/03/19 22:00 02/06/19 08:32 Lioresal PO 5 mg TID VENKAT Administration Enoxaparin Sodium 40 mg 02/03/19 21:00 02/05/19 22:12 Lovenox SQ 40 mg HS VENKAT Administration Levothyroxine Sodium 100 mcg 02/04/19 06:30 02/06/19 06:09 Synthroid PO 100 mcg 0630 VENKAT Administration Lisinopril 20 mg 02/04/19 09:00 02/06/19 08:32 Zestril PO 20 mg DAILY VENKAT Administration Naloxone HCl 0.2 mg 02/03/19 10:04 Narcan IV Q2M PRN Opioid Reversal Prednisone 60 mg 02/04/19 09:00 02/06/19 08:32 PO 60 mg DAILY VENKAT Administration Pregabalin 100 mg 02/03/19 18:30 02/06/19 08:36 Lyrica PO 100 mg TID VENKAT Administration Objective - Vital Signs Vital signs: Vital Signs Temp 97.7 F 02/06/19 13:00 Pulse 53 L 02/06/19 13:00 Resp 17 02/06/19 13:00 BP 169/73 02/06/19 13:00 Pulse Ox 95 02/06/19 13:00 Intake & Output 02/05/19 02/06/19 02/06/19 18:59 06:59 18:59 Intake Total 1360 590 Output Total 600 Balance 1360 -10 Intake: Oral 1360 590 Output: Urine 600 Other: Voiding Method Indwelling Catheter Indwelling Catheter # Bowel Movements 1 - Exam ENERAL: lying in bed, awake not in distress. EYES: Pupils equal. Conjunctiva normal. HEENT: External appearance of nose and ears normal, oral cavity grossly normal. NECK: JVD unable to assess; masses not palpable. HEART: Distal heart sounds; some edema. LUNGS: Respiratory rate normal; distant breath sounds. ABDOMEN: Soft, nontender, liver spleen not palpable, no masses palpable. Umbilical hernia PSYCH: Alert and oriented x3; mood and affect normal. MUSCULAR skeletal: Less range of motion around the left hip compared to the right. EXTREMITIES: Large lower extremity with venous is insufficiency and lymphedema, chronic stasis dermatitis. Left heel wound with some purulent discharge. Chronic Ulcer on the left heel. - Labs CBC & Chem 7: 02/06/19 07:23 02/06/19 07:23 Labs: Abnormal Lab Results - Last 24 Hours (Table) 02/06/19 02/06/19 Range/Units 07:23 07:23 RBC 3.28 L (3.80-5.40) m/uL Hgb 9.8 L (11.4-16.0) gm/dL Hct 30.6 L (34.0-46.0) % Chloride 108 H (98-107) mmol/L BUN 22 H (7-17) mg/dL Assessment and Plan Assessment: Assessment: -Acute low back pain, likely from spinal stenosis/herniated disc with radiculopathy and down and affect. This is most likely from L1-L2 and L3-L4 nerve distribution- pain under better control with steroid therapy -Hyperlipidemia -Essential hypertension -Primary osteoarthritis -Hypothyroid -Chronic medical debility uses a vision -Idiopathic peripheral neuropathy -Chronic venous stasis -Bilateral lower extremity lymphedema -Chronic urinary stress incontinence -Chronic umbilical hernia -Nonspecific multiple mildly enlarged retroperitoneal and bilateral iliac chain lymphadenopathy, being followed by oncology PLAN: Steroids seem to be helping the patient with her pain, she received [place] only couple of times overnight. Her pain seems to be improving every day. Patient was evaluated by orthopedic team, no acute intervention. She was evaluated by Dr. Mackenzie and his team, suggested a follow-up of CT in 2-3 months for her retroperitoneal lymphadenopathy. Pain services consult is still pending. ID Dr. Hernandez to evaluate the left heel wound . We'll continue with the current medication regimen. GI/DVT prophylaxis. Further recommendations to follow de pending on the progress of the patient.
[2019-02-06] MEDS: ENOXAPARIN 40 MG/0.4 ML SYRINGE SQ SCH (21:08)
[2019-02-07] MEDS: HYDROcodone/APAP 7.5-325MG 1 EACH TAB PO PRN ×2 (05:04→12:08)
[2019-02-07] MEDS: LEVOTHYROXINE 100 MCG TAB PO SCH (05:05)
[2019-02-07] MEDS: ATORVASTATIN 10 MG TAB PO SCH (08:05)
[2019-02-07] MEDS: predniSONE 20 MG TAB PO SCH (08:05)
[2019-02-07] MEDS: LISINOPRIL 20 MG TAB PO SCH (08:05)
[2019-02-07] MEDS: amLODIPine 5 MG TAB PO SCH (08:05)
[2019-02-07] MEDS: PREGABALIN 100 MG CAP PO SCH ×3 (08:05→21:05)
[2019-02-07] MEDS: BACLOFEN 10 MG TAB PO SCH ×3 (08:05→21:06)
--- NOTE | 2019-02-07 11:10 | P.CON ---
Consult Note - . Consult date: 02/07/19 Assessment/Plan:: This is a 63-year-old pleasant female known to the wound care center with a nonhealing ulceration to the left calcaneus stage III. Patient has been seen in the wound care center with Dr. Danielson. At home she is currently having dressing changes of collagen silver. However she was seen by Dr. Hernandez who changed her dressing to collagen. She has home care in place at this time for dressing changes. The wound is measuring approximately 2.7 x 1.7 x 0.2 cm with fatty layer exposure. There is no tunneling or undermining noted. There is a large amount of serosanguineous drainage noted. There is right hip granulated tissue seen in the wound bed, with a small amount of adherent Slough. Redness to skin breakdown noted to the left buttocks. Review of systems: Integumentary: Reports nonhealing ulceration to the left heel Physical exam: Integumentary: See HPI Assessment/plan: 1. Pressure ulcer of left heel stage III. May keep collagen dressing in place until Thursday, then apply collagen silver, saline moistened gauze, dry gauze, rolled gauze and secure with tape to the site changing Thursday. Continue to limit weightbearing, utilize a heel suspension boot for ambulation. 2. Pressure ulceration of the left buttocks. Apply triad daily, utilize offloading cushion for sitting Thank you for the consultation, any questions please contact to the wound care center. DNP note has been reviewed and discussed with Dr. Rocha and the impression and plan of care has been directed as dictated.
[2019-02-07 11:14] VITALS: BMI 45.6
[2019-02-07] MEDS: HYDROPHILIC CREAM 180 GM TUBE TOPICAL SCH (11:59)
[2019-02-07 14:08] LABS: Albumin 2.85 g/dL (3.80-4.90); Gamma Globulin 0.82 g/dL (0.70-1.50)
--- NOTE | 2019-02-07 15:27 | PN ---
PROGRESS NOTE DATE OF SERVICE: 02/07/2019 REASON FOR FOLLOWUP: Left heel wound. INTERVAL HISTORY: The patient is currently afebrile. Patient has been breathing comfortably. Patient denies having any chest pain. No cough. No nausea, no vomiting. No abdominal pain, unable to see the left knee area. PHYSICAL EXAMINATION: Blood pressure 139/63 with a pulse of 53, temperature 97.5. She is 96% on room air. General description is a middle-aged female, lying in bed in no distress. RESPIRATORY SYSTEM: Unlabored breathing, clear to auscultation anteriorly. HEART: S1, S2. Regular rate and rhythm. ABDOMEN: Soft, no tenderness. Left knee is currently dressed up, no obvious drainage on the dressing. LABS: Hemoglobin 9.1, white count of 5.0, BUN of 22, creatinine of 0.78. DIAGNOSTIC IMPRESSION AND PLAN: Patient with left heel stage III pressure ulcer. This patient currently with no evidence of any cellulitis. Recommend local wound care and no need for any systemic antibiotic therapy. MMODL / IJN: [id number] /
--- NOTE | 2019-02-07 16:06 | P.PAINCN ---
History of Present Illness - Reason for Consult Consult date: 02/07/19 - History of Present Illness This is 63 years old female with acute onset of severe low back pain started last week, she denies any initiating event, patient reported that she is wheelchair-bound, secondary to osteoarthritis of the knee and the hip, and also she had osteomyelitis of the heel, he had nonhealing ulcer in her heel and she's been on IV antibiotics, she was on [place] at home and Neurontin, and recently she is being switched to Lyrica 100 mg 3 times a day, she reported that her pain is constant and increases the any activity, and radiated to the lower extremity, she denies any change in the bowel movements or urination, and she reported the current medication is not helping to control her pain Past Medical History Past Medical History: Hyperlipidemia, Hypertension, Osteoarthritis (OA), Skin Disorder, Thyroid Disorder Additional Past Medical History / Comment(s): Nonambulatory/pivots to wheelchair normally, chronic low back pain, neuropathy bilateral feet, chronic venous stasis, current L heel/L yost wound, bilateral leg cellulitis, past L foot ulcer, lymphedema bilateral legs, DJD, past R ankle fracture x3, UTIs, stress incontinence, chronic anemia, umbilical hernia, hypothyroid. History of Any Multi-Drug Resistant Organisms: MRSA, Other MDRO Year Discovered:: 12/14/18 MDRO Source:: Left Heel & Left Foot Past Surgical History: Section, Cholecystectomy, Orthopedic Surgery, Tubal Ligation Additional Past Surgical History / Comment(s): L leg I&D, bilateral knee arthroscopies, L great toe amp d/t nonhealing wound, PICCS, D&Cs Past Anesthesia/Blood Transfusion Reactions: Previous Problems w/ Anesthesia Additional Past Anesthesia/Blood Transfusion Reaction / Comm: slow to come out of it/muscle weakness Smoking Status: Former smoker - Past Family History Father Family Medical History: Cancer, Coronary Artery Disease (CAD), Myocardial Infarction (DC), Prostate Disorder Additional Family Medical History / Comment(s): Prostate CA Mother Family Medical History: Cancer, CVA/TIA, Hyperlipidemia Additional Family Medical History / Comment(s): Lung CA-left lobe removed Medications and Allergies Home Medications Medication Instructions Recorded Confirmed Type Levothyroxine Sodium [Synthroid] 100 mcg PO DAILY 08/29/13 02/03/19 History amLODIPine [Norvasc] 5 mg PO DAILY 07/23/18 02/03/19 History Atorvastatin Calcium [Lipitor] 10 mg PO DAILY 10/06/18 02/03/19 History Lisinopril [Zestril] 20 mg PO DAILY tab 12/17/18 02/03/19 Rx Pregabalin [Lyrica] 100 mg PO TID 02/03/19 02/03/19 History Baclofen 5 mg PO TID PRN #30 tablet 02/04/19 Rx Naproxen [Naprosyn] 250 mg PO TID #21 tab 02/04/19 Rx predniSONE 10 mg PO DAILY #30 tab 02/04/19 Rx Allergies Allergy/AdvReac Type Severity Reaction Status Date / Time Sulfa (Sulfonamide Allergy Rash/Hives Verified 02/03/19 08:41 Antibiotics) Physical Exam Vitals: Vital Signs Temp Pulse Resp BP Pulse Ox 02/07/19 11:46 97.5 F L 53 L 17 139/66 96 02/07/19 04:49 97.5 F L 55 L 16 95 02/07/19 04:41 142/92 02/06/19 21:00 97.6 F 62 16 165/74 93 L 02/06/19 16:00 60 17 Intake and Output 02/07/19 02/07/19 02/07/19 06:59 14:59 22:59 Other: Voiding Method Bedpan Bedpan Weight 136.078 kg Physical Examinations : -Constitutiona : Cooperative , not in acute distress . -HEENT : nech : supple , no Lymphadenopathy , normal t hyroid size . eyes : no ptosis , no icterus, no photophobia . - neurologic : Cranial nerve II to XII intact , no focal neurological deffecit . -psychatric : alert , oriented X 3 , appropriate affect , intact judgment and insight . -Lymphatic : no Lymphadenopathy . - musculoskeltal : Lumber spine moter stegnth lower extremities ,thigh and legs 4/5 Right side , 4/5 Left side deep tendon reflexes : normal Knee Jerk , normal ankle Jerk positive lumber facet Loading Test Range of motion of the lumbar spine Flexion 30 degrees, extension 10 degrees strait leg raising test , positive at 30 degree Fabere test positive RT and positive LT . Results CBC & Chem 7: 02/06/19 07:23 02/06/19 07:23 Labs: Abnormal Lab Results - Last 24 Hours (Table) 02/04/19 Range/Units 19:53 Albumin (PEP) 2.85 L (3.80-4.90) g/dL Mhnkw-9-Qkcualjdr 0.86 H (0.10-0.40) g/dL Wdlmh-7-Qthszaksc 0.38 L (0.60-1.00) g/dL Beta Globulins 0.59 L (0.60-1.30) g/dL Comments: Computed tomography scan of the lumbar spine severe degenerative disc disease at L2 through S1 and lumbar spinal stenosis and facet arthrosis Assessment and Plan Plan: Assessment and plan= acute low back pain secondary to lumbar degenerative disc disease and lumbar spinal stenosis Patient reported that she had some improvement of low back pain since she was started on oral steroids and also Lyrica 100 mg Tid recommend to increase [place] to 10/325 every 6 hours when necessary She is not candidate for interventional pain injection at this point because she is currently have infection and she is on antibiotics. Patient can Follow up in the pain clinic after discharge Time with Patient: Greater than 30 PQRS Measure Charge Sheet PQRS Narrative: Smoking Status Former smoker Do You Want the Pneumonia Vaccine Up to Date Vaccine AT THIS TIME? Blood Pressure [Right Arm] 139/66 Blood Pressure 117/52 Pain Intensity [Lower Back] 0 Pain Intensity 4 Pain Scale Used Numeric (1 - 10) Scale Used Numeric (1 - 10) Home Medications: Ambulatory Orders Levothyroxine Sodium [Synthroid] 100 mcg PO DAILY 08/29/13 amLODIPine [Norvasc] 5 mg PO DAILY 07/23/18 Atorvastatin Calcium [Lipitor] 10 mg PO DAILY 10/06/18 Lisinopril [Zestril] 20 mg PO DAILY tab 12/17/18 Pregabalin [Lyrica] 100 mg PO TID 02/03/19 Baclofen 5 mg PO TID PRN #30 tablet 02/04/19 Naproxen [Naprosyn] 250 mg PO TID #21 tab 02/04/19 predniSONE 10 mg PO DAILY #30 tab 02/04/19
--- NOTE | 2019-02-07 17:14 | P.PN ---
Subjective Progress Note Date: 02/07/19 Principal diagnosis: Acute low back pain Ms. Spicer is a 63-year-old female with a past medical history of idiopathic peripheral neuropathy, morbid obesity, primary osteoarthritis, essential hypertension, hypothyroid, on medical hernia, Tronic urinary stress incontinence, chronic venous stasis, hyperlipidemia, bilateral lower extremity lymphedema coming in with a chief complaint of acute low back pain. Patient is wheelchair-bound at baseline and noticed that she had severe localized low back pain. Patient had a CT of the abdomen and pelvis showing severe multilevel degenerative disc disease throughout the lumbar spine. On 02/07/2019 - patient showed significant response with steroids. She is also getting [place] for breakthrough pain. Pain consult is still pending. Patient has a nonhealing ulcer on the left heel, for which wound care has been consulted. She was evaluated by Dr. Hernandez yesterday and he recommended no antibiotics for the heel ulcer and just collagen dressings. Patient denies having any chest pain or palpitations. No cough or difficulty in breathing. No pain nausea vomiting or diarrhea. No dysuria or hematuria. Patient's Cobos's catheter has been discontinued yesterday and she has been urinating without any difficulty. Patient's vitals have been stable on the past 24 hours. No new labs from this morning. Active Medications Hydrocodone Bitart/Acetaminophen ([place] 10) 1 each PO Q6H PRN PRN Reason: Pain Amlodipine Besylate (Norvasc) 5 mg PO DAILY COUNTS INCLUDE 234 BEDS AT THE [facility] Last Admin: 02/07/19 08:05 Dose: 5 mg Documented by: Atorvastatin Calcium (Lipitor) 10 mg PO DAILY COUNTS INCLUDE 234 BEDS AT THE [facility] Last Admin: 02/07/19 08:05 Dose: 10 mg Documented by: Baclofen (Lioresal) 5 mg PO TID COUNTS INCLUDE 234 BEDS AT THE [facility] Last Admin: 02/07/19 16:56 Dose: 5 mg Documented by: Enoxaparin Sodium (Lovenox) 40 mg SQ HS COUNTS INCLUDE 234 BEDS AT THE [facility] Last Admin: 02/06/19 21:08 Dose: 40 mg Documented by: Levothyroxine Sodium (Synthroid) 100 mcg PO 0630 COUNTS INCLUDE 234 BEDS AT THE [facility] Last Admin: 02/07/19 05:05 Dose: 100 mcg Documented by: Lisinopril (Zestril) 20 mg PO DAILY COUNTS INCLUDE 234 BEDS AT THE [facility] Last Admin: 02/07/19 08:05 Dose: 20 mg Documented by: Multi-Ingred Cream/Lotion/Oil/Oint (Triad Cream) 1 applic TOPICAL DAILY COUNTS INCLUDE 234 BEDS AT THE [facility] Last Admin: 02/07/19 11:59 Dose: 1 applic Documented by: Naloxone HCl (Narcan) 0.2 mg IV Q2M PRN PRN Reason: Opioid Reversal Prednisone () 60 mg PO DAILY COUNTS INCLUDE 234 BEDS AT THE [facility] Last Admin: 02/07/19 08:05 Dose: 60 mg Documented by: Pregabalin (Lyrica) 100 mg PO TID COUNTS INCLUDE 234 BEDS AT THE [facility] Last Admin: 02/07/19 16:56 Dose: 100 mg Documented by: Objective - Vital Signs Vital signs: Vital Signs Temp 97.5 F L 02/07/19 11:46 Pulse 53 L 02/07/19 11:46 Resp 17 02/07/19 11:46 BP 139/66 02/07/19 11:46 Pulse Ox 96 02/07/19 11:46 Intake & Output 02/06/19 02/07/19 02/07/19 18:59 06:59 18:59 Intake Total 360 Balance 360 Weight 136.078 kg Intake: Oral 360 Other: Voiding Method Indwelling Catheter Bedpan Bedpan # Voids 1 1 2 # Bowel Movements 1 - Exam ENERAL: lying in bed, awake not in distress. EYES: Pupils equal. Conjunctiva normal. HEENT: External appearance of nose and ears normal, oral cavity grossly normal. HEART: Distal heart sounds LUNGS: Respiratory rate normal; distant breath sounds. ABDOMEN: Soft, nontender, liver spleen not palpable, no masses palpable. Umbilical hernia PSYCH: Alert and oriented x3; mood and affect normal. EXTREMITIES: Large lower extremity with chronic lymphedema Left heel wound with some purulent discharge. Chronic Ulcer on the left heel. - Labs CBC & Chem 7: 02/06/19 07:23 02/06/19 07:23 Labs: Abnormal Lab Results - Last 24 Hours (Table) 02/04/19 Range/Units 19:53 Albumin (PEP) 2.85 L (3.80-4.90) g/dL Hqnfj-2-Ooccvwsvq 0.86 H (0.10-0.40) g/dL Atsvj-7-Fxkvvnwpf 0.38 L (0.60-1.00) g/dL Beta Globulins 0.59 L (0.60-1.30) g/dL Assessment and Plan Assessment: Assessment: -Acute low back pain, likely from spinal stenosis/herniated disc with radicul opathy and down and affect. This is most likely from L1-L2 and L3-L4 nerve distribution- pain under better control with steroid therapy -Hyperlipidemia -Essential hypertension -Primary osteoarthritis -Hypothyroid -Chronic medical debility uses a vision -Idiopathic peripheral neuropathy -Chronic venous stasis -Bilateral lower extremity lymphedema -Chronic urinary stress incontinence -Chronic umbilical hernia -Nonspecific multiple mildly enlarged retroperitoneal and bilateral iliac chain lymphadenopathy, being followed by oncology PLAN: Patient seems to be responding to prednisone. She rates her pain 4 out of 10. She has been getting [place] for breakthrough pains. She was evaluated by Dr Jose Mackenzie and his team, suggested a follow-up of CT in 2-3 months for her retroperitoneal lymphadenopathy. Pain services consult is still pending. ID Dr. Hernandez to evaluated the left heel wound - continue with home care and no need for antibiotics. We'll continue with the current medication regimen. GI/DVT prophylaxis. Anticipate discharge in the next 24 hours.
[2019-02-07] MEDS: ENOXAPARIN 40 MG/0.4 ML SYRINGE SQ SCH (21:04)
[2019-02-07] MEDS: HYDROcodone/APAP 10-325MG 1 EACH TAB PO PRN (21:05)
[2019-02-08] MEDS: HYDROcodone/APAP 10-325MG 1 EACH TAB PO PRN ×2 (06:17→12:51)
[2019-02-08] MEDS: LEVOTHYROXINE 100 MCG TAB PO SCH (06:18)
[2019-02-08] MEDS: ATORVASTATIN 10 MG TAB PO SCH (09:03)
[2019-02-08] MEDS: BACLOFEN 10 MG TAB PO SCH (09:03)
[2019-02-08] MEDS: predniSONE 20 MG TAB PO SCH (09:03)
[2019-02-08] MEDS: HYDROPHILIC CREAM 180 GM TUBE TOPICAL SCH (09:03)
[2019-02-08] MEDS: LISINOPRIL 20 MG TAB PO SCH (09:03)
[2019-02-08] MEDS: PREGABALIN 100 MG CAP PO SCH (09:03)
[2019-02-08] MEDS: amLODIPine 5 MG TAB PO SCH (09:03)
--- NOTE | 2019-02-08 11:05 | P.PN ---
Subjective Progress Note Date: 02/08/19 Principal diagnosis: Retroperitoneal lymphadenopathy In follow-up today patient is doing fairly well, she believes that she is can it be discharged home today. She will be remaining on antibiotics. She denies any rash, lymph node swellings, fever or chills, sweats or new or unusual pain. Appetite is good. Objective - Vital Signs Vital signs: Vital Signs Temp 97.4 F L 02/08/19 06:59 Pulse 98 02/08/19 06:59 Resp 16 02/08/19 06:59 BP 147/77 02/08/19 06:59 Pulse Ox 96 02/08/19 06:59 Intake & Output 02/07/19 02/08/19 02/08/19 18:59 06:59 18:59 Intake Total 200 350 Balance 200 350 Weight 136.078 kg Intake: Oral 200 350 Other: Voiding Method Bedpan Bedpan Bedpan # Voids 2 1 - Constitutional General appearance: Present: cooperative, no acute distress, obese - EENT Eyes: Present: anicteric sclerae, EOMI, poor dentition ENT: Present: hearing grossly normal - Respiratory Details: respirations even and unlabored - Cardiovascular Details: skin warm and dry, radial pulse regular - Integumentary Integumentary Comment(s): Lt heel wrapped - Psychiatric Psychiatric: Present: A&O x's 3, appropriate affect, intact judgment & insight - Labs CBC & Chem 7: 02/06/19 07:23 02/06/19 07:23 Labs: Abnormal Lab Results - Last 24 Hours (Table) 02/04/19 Range/Units 19:53 Albumin (PEP) 2.85 L (3.80-4.90) g/dL Nvnql-5-Gaxmsgoig 0.86 H (0.10-0.40) g/dL Ujcjf-0-Tpavktcac 0.38 L (0.60-1.00) g/dL Beta Globulins 0.59 L (0.60-1.30) g/dL Assessment and Plan (1) Bicytopenia Current Visit: Yes Status: Acute Priority: Medium Code(s): D75.89 - OTHER SPECIFIED DISEASES OF BLOOD AND BLOOD-FORMING ORGANS SNOMED Code(s): 73277566 (2) Retroperitoneal lymphadenopathy Current Visit: Yes Status: Acute Priority: Medium Code(s): R59.0 - LOCALIZED ENLARGED LYMPH NODES SNOMED Code(s): 700110797 Plan: Discussed with pt lab work up thus far has revealed no pathology. Still a few tests pending but they will be watched for. Recommendation is for CBC monthly with her home care to monitor counts. If acute changes then pt can be seen sooner by Dr. Mackenzie if there are concerns. Otherwise, plan for repeat CT in 2-3 months and f/u with Dr. Mackenzie at that time. Pt verbalized understanding the plan and is in agreement.
[2019-02-08 11:32] VITALS: BP 156/71; PULSE 102; RESP 18; TEMP 98
--- NOTE | 2019-02-08 16:55 | P.DS ---
Providers Date of admission: 02/07/19 16:01 Expected date of discharge: 02/08/19 Attending physician: Tal Magallanes Consults: 02/03/19 10:17 Consult Physician Routine Consulting Provider: Rivas Watts Consult Reason/Comments: Pain management, intractable back pain Do you want consulting provider notified?: Yes 02/03/19 10:18 Consult Physician Routine Consulting Provider: Ramon Hernandez Consult Reason/Comments: DDD, retrolisthesis, intractable back pain, Do you want consulting provider notified?: Yes 02/03/19 10:19 Consult Physician Stat Consulting Provider: Mikey Mackenzie Consult Reason/Comments: retroperitoneal lymphadenopathy Do you want consulting provider notified?: Yes 02/05/19 16:29 Consult Physician Routine Consulting Provider: Thea Hernandez Consult Reason/Comments: Left heel non-healing ulcer. Pt is seen outpatient at wound care center. Do you want consulting provider notified?: Yes Primary care physician: [facility] Course: Final diagnosis Acute low back pain, likely from spinal stenosis/herniated disc with radiculopathy Hyperlipidemia Essential hypertension Primary osteoarthritis Hypothyroidism Chronic medical debility, wheelchair-bound Idiopathic peripheral neuropathy Chronic venous stasis bilateral lower extremity lymphedema chronic urinary stress incontinence Chronic umbilical hernia nonspecific multiple mildly enlarged retroperitoneal and bilateral iliac chain lymphadenopathy Discharge disposition Patient Is being discharged in a stable condition with guarded prognosis to home and will follow-up with primary care provider, pain management, and oncology in the outpatient setting as discussed. Total time taken is 35 minutes. History of present illness This is a 63-year-old female who was recently admitted for acute lower back pain secondary to lumbar degenerative disc disease and lumbar spinal stenosis and is being closely monitored. Patient is wheelchair-bound at baseline. Patient was seen by pain management and may follow-up with patient in the outpatient setting as needed. Patient also follows up with Dr. Mackenzie in the outpatient setting and will do so in the next couple weeks. During hospitalization patient was seen by pain management and was started on oral steroids and Lyrica made recommendations to increase her [place] as necessary. Patient is not a candidate for interventional pain injections at this time and may follow-up upon discharge in the outpatient setting. Currently patient's condition is stable with much improvement and would like to go home today. Patient is awaiting for her son to arrive to take her home. Patient states that her pain has gotten better and is manageable at this time. Patient denies any chest pain, shortness of breath, or palpitations at this time. Patient is afebrile. Patient denies any nausea or vomiting and is tolerating diet. Guarded prognosis. On exam vital signs are stable. This 98F, pulse is 102, respirations are 18, blood pressure is 156/71, oxygen saturation is 96% on room air. Cardio S1 and S2 are muffled. Respiratory system shows clear to auscultation. Abdomen is soft, obese, nontender. Nervous system shows no focal deficits. Please refer to medication reconciliation sheet for a list of medications. Patient Condition at Discharge: Fair Plan - Discharge Summary Discharge Rx Participant: No New Discharge Prescriptions: New Baclofen 5 mg PO TID PRN #30 tablet PRN Reason: Muscle Spasm Naproxen [Naprosyn] 250 mg PO TID #21 tab predniSONE 10 mg PO DAILY #30 tab HYDROcodone/APAP 10-325MG [[place] 10-325] 1 each PO Q6H PRN #12 tab PRN Reason: Pain Hydrophilic Cream [Triad Cream] 1 applic TOPICAL DAILY 30 Days #1 applic Continue Levothyroxine Sodium [Synthroid] 100 mcg PO DAILY amLODIPine [Norvasc] 5 mg PO DAILY Atorvastatin Calcium [Lipitor] 10 mg PO DAILY Lisinopril [Zestril] 20 mg PO DAILY tab Pregabalin [Lyrica] 100 mg PO TID Discontinued Gabapentin [Neurontin] 600 mg PO BID Discharge Medication List Levothyroxine Sodium [Synthroid] 100 mcg PO DAILY 08/29/13 [History] amLODIPine [Norvasc] 5 mg PO DAILY 07/23/18 [History] Atorvastatin Calcium [Lipitor] 10 mg PO DAILY 10/06/18 [History] Lisinopril [Zestril] 20 mg PO DAILY tab 12/17/18 [Rx] Pregabalin [Lyrica] 100 mg PO TID 02/03/19 [History] Baclofen 5 mg PO TID PRN #30 tablet 02/04/19 [Rx] Naproxen [Naprosyn] 250 mg PO TID #21 tab 02/04/19 [Rx] predniSONE 10 mg PO DAILY #30 tab 02/04/19 [Rx] HYDROcodone/APAP 10-325MG [[place] 10-325] 1 each PO Q6H PRN #12 tab 02/08/19 [Rx] Hydrophilic Cream [Triad Cream] 1 applic TOPICAL DAILY 30 Days #1 applic 02/08/19 [Rx] Follow up Appointment(s)/Referral(s): Mikey Mackenzie MD [STAFF PHYSICIAN] - 6 Weeks (Office will call pt with appt date and time as we will be scheduling the f/u CT) Adonis Mcfarlane DO [Primary Care Provider] - 1 Week (Dr. Mcfarlane's office will call patient with an appointment date and time. ) Ramon Hernandez DO [Doctor of Osteopathic Medicine] - 02/25/19 1:30 pm [facility], [NON-STAFF] - Patient Instructions/Handouts: Hydrocodone/Acetaminophen (By mouth), Naproxen (By mouth), Prednisone (By mouth), Baclofen (By mouth), Pressure Injury (DC), Back Pain (ED) Activity/Diet/Wound Care/Special Instructions: Activity Limited until follow-up Follow-up with primary care provider upon discharge Follow-up with Dr. Mackenzie as discussed Follow-up in the pain clinic upon discharge Continue current diet Discharge Disposition: HOME WITH HOME HEALTH SERVICES
--- NOTE | 2019-02-08 18:37 | PN ---
PROGRESS NOTE DATE OF SERVICE: 02/08/2019. REASON FOR FOLLOWUP: Left heel wound. INTERVAL HISTORY: The patient is currently afebrile. Patient has been breathing comfortably. Patient denies having any chest pain. No shortness of breath or cough. No nausea, no vomiting. No abdominal pain. Pain to the left heel area. PHYSICAL EXAMINATION: Blood pressure 156/70 with a pulse of 102, temperature 98. She is 96% on room air. General description is a middle aged female lying in bed in no distress. Respiratory system: Unlabored breathing. Clear to auscultation anteriorly. Heart S1, S2. Regular rate and rhythm. Abdomen soft, no tenderness. The left ear wound is currently dressed up. No obvious drainage on the dressing. LABS: No new labs have been obtained today. DIAGNOSTIC IMPRESSION AND PLAN: Patient with left heel pressure ulcer with no evidence of cellulitis. Recommend local wound care with Aquacel Silver dressing and no need for systemic antibiotic therapy. Continue supportive care. MMODL / IJN: [id number] /
== END 2019-02-08 17:45 | disposition home health service (06) | DRG 551 ==
LOC: EC 05:37 → 3NMEDONC 10:27 → OBSVTOIN 02-07 16:01
PROVIDERS: ADMIT Hospitalist; ATTEND Hospitalist
DX: M51.16 Intervertebral disc disorders with radiculopathy, lumbar region (principal); L89.623 Pressure ulcer of left heel, stage 3; M86.672 Other chronic osteomyelitis, left ankle and foot; Z68.42 Body mass index [BMI] 45.0-49.9, adult; M47.26 Other spondylosis with radiculopathy, lumbar region; M48.061 Spinal stenosis, lumbar region without neurogenic claudication; K42.9 Umbilical hernia without obstruction or gangrene; L89.329 Pressure ulcer of left buttock, unspecified stage; M19.90 Unspecified osteoarthritis, unspecified site; N39.3 Stress incontinence (female) (male); D64.89 Other specified anemias; D69.6 Thrombocytopenia, unspecified; D72.810 Lymphocytopenia; E03.9 Hypothyroidism, unspecified; E66.01 Morbid (severe) obesity due to excess calories; E78.5 Hyperlipidemia, unspecified; G60.9 Hereditary and idiopathic neuropathy, unspecified; I10 Essential (primary) hypertension; I87.8 Other specified disorders of veins; R62.7 Adult failure to thrive; S39.012A Strain of muscle, fascia and tendon of lower back, initial encounter; Z79.890 Hormone replacement therapy; Z79.899 Other long term (current) drug therapy; Z80.1 Family history of malignant neoplasm of trachea, bronchus and lung; Z82.49 Family history of ischemic heart disease and other diseases of the circulatory system; Z87.891 Personal history of nicotine dependence; Z99.3 Dependence on wheelchair; M17.10 Unilateral primary osteoarthritis, unspecified knee; M16.10 Unilateral primary osteoarthritis, unspecified hip; Z82.3 Family history of stroke; Z80.42 Family history of malignant neoplasm of prostate; Z88.2 Allergy status to sulfonamides; R33.9 Retention of urine, unspecified; M51.17 Intervertebral disc disorders with radiculopathy, lumbosacral region; M48.07 Spinal stenosis, lumbosacral region; R59.1 Generalized enlarged lymph nodes; Z89.412 Acquired absence of left great toe; Z86.14 Personal history of Methicillin resistant Staphylococcus aureus infection; Z79.891 Long term (current) use of opiate analgesic
CPT/HCPCS: 36415; 74177; 80048; 80053; 81001; 82607; 82668; 82728; 82746; 83540; 83550; 83615; 83883; 83921; 84165; 85025; 85045; 85610; 85652; 85730; 86038; 86334; 86431; 96374; 96375; 99285

== ENCOUNTER 2019-02-09 22:50 | Emergency (ER) | payer MEDICARE, OTHER ==
[2019-02-09 23:20] VITALS: RESP 18; TEMP 97.8
[2019-02-09] MEDS ORDERED: SODIUM CHLORIDE 0.9% 500 ML 500 ML IV STA (23:33)
--- NOTE | 2019-02-09 23:36 | ED ---
General Adult HPI - General Chief complaint: GI Bleed Stated complaint: diarrhea Time Seen by Provider: 02/09/19 22:59 Source: patient, RN notes reviewed Mode of arrival: EMS Limitations: no limitations - History of Present Illness Initial comments: 63-year-old female with a past medical history of hyperlipidemia, hypertension, morbid obesity, and multiple medical Complications presents to the emergency department for rectal bleeding. Patient states since this afternoon she has had 5 episodes of watery diarrhea. States the first 3 did have streaks of bright red blood in them. Patient denies any abdominal pain. Denies any nausea or vomiting. States she was just released from the hospital yesterday because she had enlarged lymph nodes on an abdomen and pelvis CAT scan that was questionable for lymphoma. States she is following up about this. Denies fevers or chills. Patient has no other complaints at this time including shortness of breath, chest pain, abdominal pain, nausea or vomiting, headache, or visual changes. - Related Data Home Medications Medication Instructions Recorded Confirmed Levothyroxine Sodium [Synthroid] 100 mcg PO DAILY 08/29/13 02/03/19 amLODIPine [Norvasc] 5 mg PO DAILY 07/23/18 02/03/19 Atorvastatin Calcium [Lipitor] 10 mg PO DAILY 10/06/18 02/03/19 Pregabalin [Lyrica] 100 mg PO TID 02/03/19 02/03/19 Previous Rx's Medication Instructions Recorded Lisinopril [Zestril] 20 mg PO DAILY tab 12/17/18 Baclofen 5 mg PO TID PRN #30 tablet 02/04/19 Naproxen [Naprosyn] 250 mg PO TID #21 tab 02/04/19 predniSONE 10 mg PO DAILY #30 tab 02/04/19 HYDROcodone/APAP 10-325MG [[place] 1 each PO Q6H PRN #12 tab 02/08/19 10-325] Hydrophilic Cream [Triad Cream] 1 applic TOPICAL DAILY 30 Days #1 02/08/19 applic Allergies Allergy/AdvReac Type Severity Reaction Status Date / Time Sulfa (Sulfonamide Allergy Rash/Hives Verified 02/09/19 23:20 Antibiotics) Review of Systems ROS Statement: Those systems with pertinent positive or pertinent negative responses have been documented in the HPI. ROS Other: All systems not noted in ROS Statement are negative. Past Medical History Past Medical History: Hyperlipidemia, Hypertension, Osteoarthritis (OA), Skin Disorder, Thyroid Disorder Additional Past Medical History / Comment(s): Nonambulatory/pivots to wheelchair normally, chronic low back pain, neuropathy bilateral feet, chronic venous stasis, current L heel/L yost wound, bilateral leg cellulitis, past L foot ulcer, lymphedema bilateral legs, DJD, past R ankle fracture x3, UTIs, stress incontinence, chronic anemia, umbilical hernia, hypothyroid. History of Any Multi-Drug Resistant Organisms: MRSA, Other MDRO Date of last positivie culture/infection: 12/14/18 MDRO Source:: Left Heel & Left Foot Past Surgical History: Section, Cholecystectomy, Orthopedic Surgery, Tubal Ligation Additional Past Surgical History / Comment(s): L leg I&D, bilateral knee arthroscopies, L great toe amp d/t nonhealing wound, PICCS, D&Cs Past Anesthesia/Blood Transfusion Reactions: Previous Problems w/ Anesthesia Additional Past Anesthesia/Blood Transfusion Reaction / Comment(s): slow to come out of it/muscle weakness Past Psychological History: No Psychological Hx Reported Smoking Status: Former smoker - Past Family History Father Family Medical History: Cancer, Coronary Artery Disease (CAD), Myocardial Infarction ([place]), Prostate Disorder Additional Family Medical History / Comment(s): Prostate CA Mother Family Medical History: Cancer, CVA/TIA, Hyperlipidemia Additional Family Medical History / Comment(s): Lung CA-left lobe removed General Exam Limitations: no limitations General appearance: alert, in no apparent distress Head exam: Present: atraumatic, normocephalic, normal inspection Eye exam: Present: normal appearance, PERRL, EOMI. Absent: scleral icterus, conjunctival injection, periorbital swelling ENT exam: Present: normal exam, mucous membranes moist Neck exam: Present: normal inspection, full ROM. Absent: tenderness, meningismus Respiratory exam: Present: normal lung sounds bilaterally. Absent: respiratory distress, wheezes, rales, rhonchi, stridor Cardiovascular Exam: Present: regular rate, normal rhythm, normal heart sounds. Absent: systolic murmur, diastolic murmur, rubs, gallop, clicks GI/Abdominal exam: Present: soft, normal bowel sounds. Absent: distended, tenderness, guarding, rebound, rigid Rectal exam: Present: normal inspection, normal rectal tone. Absent: bloody stool Neurological exam: Present: alert Course Vital Signs 02/09/19 02/10/19 23:12 01:01 Temperature 97.8 F Pulse Rate 79 71 Respiratory 18 18 Rate Blood Pressure 139/67 127/81 O2 Sat by Pulse 98 97 Oximetry Medical Decision Making - Medical Decision Making Vitals are stable. Pulse rate is 79 and blood pressure is 139/67. CBC shows a white count of 14.6 which is likely reactive. May also be related to a viral gastroenteritis. CMP is unremarkable. There is some evidence of dehydration, patient was given fluids. Occult blood is negative. CT abdomen and pelvis from 1 week ago was reviewed which showed numerous nonenlarged and borderline to mildly enlarged retroperitoneal and bilateral iliac chain lymphadenopathy. Patient was evaluated by oncology at that time and she will follow up with for this. She is denying any fevers. Denies any abdominal pain whatsoever. Patient has not had any episodes of diarrhea here in the emergency department. Patient discharged appearing well. - Lab Data Result diagrams: 02/09/19 23:25 02/09/19 23:25 Lab Results 02/09/19 02/09/19 02/09/19 Range/Units 23:25 23:25 23:25 WBC 14.6 H (3.8-10.6) k/uL RBC 4.30 (3.80-5.40) m/uL Hgb 12.5 (11.4-16.0) gm/dL Hct 38.2 (34.0-46.0) % MCV 88.9 (80.0-100.0) fL MCH 29.0 (25.0-35.0) pg MCHC 32.6 (31.0-37.0) g/dL RDW 13.9 (11.5-15.5) % Plt Count 292 (150-450) k/uL Neutrophils % 85 % Lymphocytes % 7 % Monocytes % 6 % Eosinophils % 1 % Basophils % 1 % Neutrophils # 12.3 H (1.3-7.7) k/uL Lymphocytes # 1.0 (1.0-4.8) k/uL Monocytes # 0.8 (0-1.0) k/uL Eosinophils # 0.2 (0-0.7) k/uL Basophils # 0.1 (0-0.2) k/uL PT 10.5 (9.0-12.0) sec INR 1.0 (<1.2) APTT 22.5 (22.0-30.0) sec Sodium 139 (137-145) mmol/L Potassium 4.5 (3.5-5.1) mmol/L Chloride 101 (98-107) mmol/L Carbon Dioxide 29 (22-30) mmol/L Anion Gap 9 mmol/L BUN 24 H (7-17) mg/dL Creatinine 0.84 (0.52-1.04) mg/dL Est GFR (CKD-EPI)AfAm 85 (>60 ml/min/1.73 sqM) Est GFR (CKD-EPI)NonAf 74 (>60 ml/min/1.73 sqM) Glucose 88 (74-99) mg/dL Calcium 9.9 (8.4-10.2) mg/dL Total Bilirubin 0.7 (0.2-1.3) mg/dL AST 43 H (14-36) U/L ALT 31 (9-52) U/L Alkaline Phosphatase 125 (38-126) U/L Total Protein 7.2 (6.3-8.2) g/dL Albumin 4.0 (3.5-5.0) g/dL Stool Occult Blood (Negative) 02/09/19 Range/Units 23:32 WBC (3.8-10.6) k/uL RBC (3.80-5.40) m/uL Hgb (11.4-16.0) gm/dL Hct (34.0-46.0) % MCV (80.0-100.0) fL MCH (25.0-35.0) pg MCHC (31.0-37.0) g/dL RDW (11.5-15.5) % Plt Count (150-450) k/uL Neutrophils % % Lymphocytes % % Monocytes % % Eosinophils % % Basophils % % Neutrophils # (1.3-7.7) k/uL Lymphocytes # (1.0-4.8) k/uL Monocytes # (0-1.0) k/uL Eosinophils # (0-0.7) k/uL Basophils # (0-0.2) k/uL PT (9.0-12.0) sec INR (<1.2) APTT (22.0-30.0) sec Sodium (137-145) mmol/L Potassium (3.5-5.1) mmol/L Chloride (98-107) mmol/L Carbon Dioxide (22-30) mmol/L Anion Gap mmol/L BUN (7-17) mg/dL Creatinine (0.52-1.04) mg/dL Est GFR (CKD-EPI)AfAm (>60 ml/min/1.73 sqM) Est GFR (CKD-EPI)NonAf (>60 ml/min/1.73 sqM) Glucose (74-99) mg/dL Calcium (8.4-10.2) mg/dL Total Bilirubin (0.2-1.3) mg/dL AST (14-36) U/L ALT (9-52) U/L Alkaline Phosphatase (38-126) U/L Total Protein (6.3-8.2) g/dL Albumin (3.5-5.0) g/dL Stool Occult Blood Negative (Negative) Disposition Clinical Impression: Diarrhea Disposition: HOME SELF-CARE Condition: Good Instructions (If sedation given, give patient instructions): Gastrointestinal Bleeding (ED), Acute Diarrhea (ED) Additional Instructions: Please follow up with primary care in 1-2 days. Please return here to the emergency department if you have any worsening symptoms. Is patient prescribed a controlled substance at d/c from ED?: No Referrals: Adonis Mcfarlane DO [Primary Care Provider] - 1-2 days Time of Disposition: 01:04
[2019-02-09 23:51] LABS: Basophils # (A) 0.1 k/uL (0-0.2); Basophils % (A) 1 %; Eosinophils # (A) 0.2 k/uL (0-0.7); Eosinophils % (A) 1 %; HCT 38.2 % (34.0-46.0); HGB 12.5 gm/dL (11.4-16.0); Lymphocytes % (A) 7 %; MCHC 32.6 g/dL (31.0-37.0); MCV 88.9 fL (80.0-100.0); Mean Platelet Volume 7.4; Monocytes # (A) 0.8 k/uL (0-1.0); Monocytes % (A) 6 %; Neutrophils # (A) 12.3 k/uL (1.3-7.7); Neutrophils % (A) 85 %; Platelet Count 292 k/uL (150-450); RDW 13.9 % (11.5-15.5); WBC 14.6 k/uL (3.8-10.6)
[2019-02-10 00:01] LABS: Calcium 9.9 mg/dL (8.4-10.2); Partial Thromboplastin Time 22.5 sec (22.0-30.0); Prothrombin Time 10.5 sec (9.0-12.0); Total Bilirubin 0.7 mg/dL (0.2-1.3); Total Protein 7.2 g/dL (6.3-8.2)
[2019-02-10 00:07] LABS: Potassium 4.5 mmol/L (3.5-5.1)
[2019-02-10 01:01] VITALS: BP 127/81; PULSE 71
== END 2019-02-10 02:11 | disposition home or self-care (01) ==
LOC: EC 22:50
DX: R19.7 Diarrhea, unspecified (principal); E86.0 Dehydration; R59.1 Generalized enlarged lymph nodes; E78.5 Hyperlipidemia, unspecified; I10 Essential (primary) hypertension; E03.9 Hypothyroidism, unspecified; G62.9 Polyneuropathy, unspecified; Z79.890 Hormone replacement therapy; Z79.899 Other long term (current) drug therapy; Z88.2 Allergy status to sulfonamides; Z87.891 Personal history of nicotine dependence
CPT/HCPCS: 36415; 80053; 82272; 85025; 85610; 85730; 86850; 86900; 86901; 93005; 96360; 96361; 99284

== ENCOUNTER 2019-03-18 19:14 | Emergency (ER) | payer MEDICARE, OTHER ==
[2019-03-18 19:19] VITALS: TEMP 97.7
[2019-03-18] MEDS ORDERED: ONDANSETRON 4 MG/2 ML VIAL IVP STA (19:36)
[2019-03-18] MEDS ORDERED: MORPHINE SULFATE 4 MG/ML SYRINGE IV STA (19:36)
[2019-03-18] MEDS ORDERED: SODIUM CHLORIDE 0.9% 500 ML 500 ML IV STA (19:36)
--- NOTE | 2019-03-18 19:54 | ED ---
Back Pain HPI - General Chief Complaint: Back Pain/Injury Stated Complaint: Back pain, side pain Time Seen by Provider: 03/18/19 19:20 Source: patient, RN notes reviewed Mode of arrival: ambulatory Limitations: no limitations - History of Present Illness Initial Comments: This a 63-year-old female presents emergency Department chief complaint of right flank pain. Patient states that it started last few days. She states that she always has some back pain. Patient did admit that actually she had an admission for inflamed lymph nodes that caused her back pain. Patient states his right flank pain and different than her usual pain. She states that the Pain is constant minimally alleviated with her [place]. Patient has no current dysuria or hematuria. Denies any current nausea vomiting diarrhea constipation. Patient states she had follow-up with oncology for her lymphadenopathy with no acute findings. - Related Data Home Medications Medication Instructions Recorded Confirmed Levothyroxine Sodium [Synthroid] 100 mcg PO DAILY 08/29/13 02/03/19 amLODIPine [Norvasc] 5 mg PO DAILY 07/23/18 02/03/19 Atorvastatin Calcium [Lipitor] 10 mg PO DAILY 10/06/18 02/03/19 Pregabalin [Lyrica] 100 mg PO TID 02/03/19 02/03/19 Previous Rx's Medication Instructions Recorded Lisinopril [Zestril] 20 mg PO DAILY tab 12/17/18 Baclofen 5 mg PO TID PRN #30 tablet 02/04/19 Naproxen [Naprosyn] 250 mg PO TID #21 tab 02/04/19 predniSONE 10 mg PO DAILY #30 tab 02/04/19 HYDROcodone/APAP 10-325MG [[place] 1 each PO Q6H PRN #12 tab 02/08/19 10-325] Hydrophilic Cream [Triad Cream] 1 applic TOPICAL DAILY 30 Days #1 02/08/19 applic Allergies Allergy/AdvReac Type Severity Reaction Status Date / Time Sulfa (Sulfonamide Allergy Rash/Hives Verified 03/18/19 19:18 Antibiotics) Review of Systems ROS Statement: Those systems with pertinent positive or pertinent negative responses have been documented in the HPI. ROS Other: All systems not noted in ROS Statement are negative. Past Medical History Past Medical History: Hyperlipidemia, Hypertension, Osteoarthritis (OA), Skin Disorder, Thyroid Disorder Additional Past Medical History / Comment(s): Nonambulatory/pivots to wheelchair normally, chronic low back pain, neuropathy bilateral feet, chronic venous stasis, current L heel/L yost wound, bilateral leg cellulitis, past L foot ulcer, lymphedema bilateral legs, DJD, past R ankle fracture x3, UTIs, stress incontinence, chronic anemia, umbilical hernia, hypothyroid. History of Any Multi-Drug Resistant Organisms: MRSA, Other MDRO Date of last positivie culture/infection: 12/14/18 MDRO Source:: Left Heel & Left Foot Past Surgical History: Section, Cholecystectomy, Orthopedic Surgery, Tubal Ligation Additional Past Surgical History / Comment(s): L leg I&D, bilateral knee arthroscopies, L great toe amp d/t nonhealing wound, PICCS, D&Cs Past Anesthesia/Blood Transfusion Reactions: Previous Problems w/ Anesthesia Additional Past Anesthesia/Blood Transfusion Reaction / Comment(s): slow to come out of it/muscle weakness Past Psychological History: No Psychological Hx Reported Smoking Status: Former smoker Past Alcohol Use History: None Reported Past Drug Use History: None Reported - Past Family History Father Family Medical History: Cancer, Coronary Artery Disease (CAD), Myocardial Infarction ([place]), Prostate Disorder Additional Family Medical History / Comment(s): Prostate CA Mother Family Medical History: Cancer, CVA/TIA, Hyperlipidemia Additional Family Medical History / Comment(s): Lung CA-left lobe removed General Exam Limitations: no limitations General appearance: alert, in no apparent distress Head exam: Present: atraumatic, normocephalic, normal inspection Neck exam: Present: normal inspection. Absent: tenderness, meningismus, lymp hadenopathy Respiratory exam: Present: normal lung sounds bilaterally. Absent: respiratory distress, wheezes, rales, rhonchi, stridor Cardiovascular Exam: Present: regular rate, normal rhythm, normal heart sounds. Absent: systolic murmur, diastolic murmur, rubs, gallop, clicks GI/Abdominal exam: Present: soft, normal bowel sounds. Absent: distended, tenderness, guarding, rebound, rigid Back exam: Present: full ROM, tenderness, CVA tenderness (R), paraspinal tenderness. Absent: vertebral tenderness Neurological exam: Present: alert, oriented X3, CN II-XII intact Skin exam: Present: warm, dry, intact, normal color. Absent: rash Course Vital Signs 03/18/19 03/18/19 19:15 22:23 Temperature 97.7 F 97.7 F Pulse Rate 85 79 Respiratory 16 18 Rate Blood Pressure 118/68 115/67 O2 Sat by Pulse 99 98 Oximetry Medical Decision Making - Medical Decision Making Labs, urinalysis unremarkable. CT shows evidence of enhancement of bilateral kidneys concerning for pyelonephritis there is no evidence of urinary tract infection. Patient will follow-up PCP, nephrology at this time. This may be related to chronic pain issues. Patient agrees to follow-up return for any worsening symptoms. - Lab Data Result diagrams: 03/18/19 19:46 03/18/19 19:46 Lab Results 03/18/19 03/18/19 03/18/19 Range/Units 19:46 19:46 20:44 WBC 6.7 (3.8-10.6) k/uL RBC 3.60 L (3.80-5.40) m/uL Hgb 10.7 L (11.4-16.0) gm/dL Hct 32.9 L (34.0-46.0) % MCV 91.2 (80.0-100.0) fL MCH 29.8 (25.0-35.0) pg MCHC 32.7 (31.0-37.0) g/dL RDW 15.1 (11.5-15.5) % Plt Count 153 (150-450) k/uL Neutrophils % 80 % Lymphocytes % 10 % Monocytes % 6 % Eosinophils % 1 % Basophils % 1 % Neutrophils # 5.3 (1.3-7.7) k/uL Lymphocytes # 0.7 L (1.0-4.8) k/uL Monocytes # 0.4 (0-1.0) k/uL Eosinophils # 0.1 (0-0.7) k/uL Basophils # 0.1 (0-0.2) k/uL Hypochromasia Slight Sodium 144 (137-145) mmol/L Potassium 4.2 (3.5-5.1) mmol/L Chloride 107 (98-107) mmol/L Carbon Dioxide 30 (22-30) mmol/L Anion Gap 7 mmol/L BUN 17 (7-17) mg/dL Creatinine 1.20 H (0.52-1.04) mg/dL Est GFR (CKD-EPI)AfAm 55 (>60 ml/min/1.73 sqM) Est GFR (CKD-EPI)NonAf 48 (>60 ml/min/1.73 sqM) Glucose 82 (74-99) mg/dL Calcium 9.8 (8.4-10.2) mg/dL Total Bilirubin 0.3 (0.2-1.3) mg/dL AST 19 (14-36) U/L ALT 17 (9-52) U/L Alkaline Phosphatase 138 H (38-126) U/L Total Protein 6.9 (6.3-8.2) g/dL Albumin 3.8 (3.5-5.0) g/dL Amylase 42 (30-110) U/L Lipase 53 (23-300) U/L Urine Color Light Yellow Urine Appearance Clear (Clear) Urine pH 6.5 (5.0-8.0) Ur Specific [place] 1.013 (1.001-1.035) Urine Protein Trace H (Negative) Urine Glucose (UA) Negative (Negative) Urine Ketones Negative (Negative) Urine Blood Negative (Negative) Urine Nitrite Negative (Negative) Urine Bilirubin Negative (Negative) Urine Urobilinogen <2.0 (<2.0) mg/dL Ur Leukocyte Esterase Negative (Negative) Disposition Clinical Impression: Flank pain, Back pain Disposition: HOME SELF-CARE Condition: Stable Instructions (If sedation given, give patient instructions): Flank Pain (ED) Additional Instructions: Please return to the Emergency Department if symptoms worsen or any other concerns. Is patient prescribed a controlled substance at d/c from ED?: No Referrals: Adonis Mcfarlane DO [Primary Care Provider] - 1-2 days Nava Ybarra MD [STAFF PHYSICIAN] - 1-2 days
[2019-03-18 20:19] LABS: Albumin 3.8 g/dL (3.5-5.0); Calcium 9.8 mg/dL (8.4-10.2); Potassium 4.2 mmol/L (3.5-5.1); Total Bilirubin 0.3 mg/dL (0.2-1.3); Total Protein 6.9 g/dL (6.3-8.2)
[2019-03-18 20:57] LABS: Appearance,Urine Clear (Clear); Bilirubin,Urine Negative (Negative); Blood,Urine Negative (Negative); Color,Urine Light Yellow; Glucose,Urine (UA) Negative (Negative); Ketones,Urine Negative (Negative); Leukocyte Esterase,Urine Negative (Negative); Nitrite,Urine Negative (Negative); PH, Urine 6.5 (5.0-8.0); Protein,Urine Trace (Negative); Specific Gravity,Urine 1.013 (1.001-1.035); Urobilinogen,Urine <2.0 mg/dL (<2.0)
[2019-03-18 21:13] LABS: Basophils # (A) 0.1 k/uL (0-0.2); Basophils % (A) 1 %; Eosinophils # (A) 0.1 k/uL (0-0.7); Eosinophils % (A) 1 %; HCT 32.9 % (34.0-46.0); HGB 10.7 gm/dL (11.4-16.0); Hypochromasia Slight; Lymphocytes # (A) 0.7 k/uL (1.0-4.8); Lymphocytes % (A) 10 %; MCH 29.8 pg (25.0-35.0); MCHC 32.7 g/dL (31.0-37.0); MCV 91.2 fL (80.0-100.0); Mean Platelet Volume 8.2; Monocytes # (A) 0.4 k/uL (0-1.0); Monocytes % (A) 6 %; Neutrophils # (A) 5.3 k/uL (1.3-7.7); Neutrophils % (A) 80 %; Platelet Count 153 k/uL (150-450); RDW 15.1 % (11.5-15.5); WBC 6.7 k/uL (3.8-10.6)
[2019-03-18 22:24] VITALS: BP 115/67; PULSE 79; RESP 18
--- NOTE | 2019-03-18 22:52 | CT ---
EXAMINATION TYPE: CT abdomen pelvis w con DATE OF EXAM: 03/18/2019 COMPARISON: 02/03/2019 HISTORY: RT flank pain CT DLP: 2252.1 mGycm Automated exposure control for dose reduction was used. TECHNIQUE: Helical acquisition of images was performed from the lung bases through the pelvis. CONTRAST: Performed without Oral Contrast and with IV Contrast, patient injected with 100 mL of Isovue 300. FINDINGS: Lung bases are clear. There is no pleural effusion. Heart size is normal. Liver spleen pancreas appear normal. Stomach is intact. There are clips from cholecystectomy. Bile du cts are nondilated. There is no adrenal mass. There is somewhat heterogeneous enhancement of the kidneys on the initial c ontrast images. There is no hydronephrosis. Ureters are not dilated. There is no retroperitoneal lazara opathy. Bladder distends smoothly. There is no inguinal hernia. Uterus is anteverted. I see no pelvic mass. Appendix appears normal. There is no mesenteric edema. There is no ascites or free air. There is no sign of a bowel obstruction. There are spondylotic multilevel changes in the lumbar spine. There is no compression fracture. There is multilevel disc space narrowing. The bony pelvis is intact. IMPRESSION: THERE IS SOME HETEROGENEOUS ENHANCEMENT OF THE RENAL CORTEX OF BOTH KIDNEYS AND MORE NOTICEABLE ON TH E RIGHT SIDE. THIS COULD RELATE TO BILATERAL PYELONEPHRITIS. THIS IS ESSENTIALLY NEW COMPARED TO OLD CT SCAN. CLINICAL CORRELATION RECOMMENDED. NO RENAL STONE OR OBSTRUCTION. NORMAL APPENDIX.
== END 2019-03-18 23:22 | disposition home or self-care (01) ==
LOC: EC 19:14
DX: M54.5 Low back pain (principal); R10.9 Unspecified abdominal pain; E03.9 Hypothyroidism, unspecified; I10 Essential (primary) hypertension; E78.5 Hyperlipidemia, unspecified; G62.9 Polyneuropathy, unspecified; Z79.890 Hormone replacement therapy; Z79.899 Other long term (current) drug therapy; Z88.2 Allergy status to sulfonamides; Z86.14 Personal history of Methicillin resistant Staphylococcus aureus infection; Z87.891 Personal history of nicotine dependence
CPT/HCPCS: 36415; 80053; 82150; 83690; 85025; 81003; 74177; 99284; 96374; 96375; J2270; J2405; Q9967

== ENCOUNTER 2019-04-12 13:58 | Inpatient (IN) | payer MEDICARE, OTHER ==
[2019-04-12] MEDS ORDERED: SODIUM CHLORIDE 0.9% 1,000 ML IV STA (14:43)
[2019-04-12] MEDS ORDERED: MORPHINE SULFATE 4 MG/ML SYRINGE IVP STA (14:43)
--- NOTE | 2019-04-12 15:10 | ED ---
Wound/Laceration HPI - General Chief Complaint: Wound/Laceration Stated Complaint: wound on foot/back pain Time Seen by Provider: 04/12/19 14:23 Source: patient Mode of arrival: wheelchair Limitations: no limitations - History of Present Illness Initial Comments: Patient is a 63-year-old female, with past medical history of hypertension, hyperlipidemia, nonambulatory, chronic back pain, chronic venous stasis, presenting to the emergency Department with complaints of pain in her left heel as well as increase in low back pain. Patient has a chronic wound of her left heel and goes to the wound clinic once or twice a week for this. Patient states in the last week it has gotten larger and she is now having a sharp, burning, stabbing pain in her left heel. Patient states that the visiting nurse that came to her house yesterday stated that she should go into the ER because she now has a new wound on her left second digit that is draining and is red. Patient has been on Cipro for 7 days secondary to this new wound on her left second digit. Patient states it is looking worse. Patient is also complaining of chronic low back pain. Patient states she has been taking [place] at home for this however is not working. Patient does have an appointment to see Dr. Pardo in the first part of April for her low back pain. Patient states the pain has been increasing and she can no longer take it. Patient is able to stand using a walker however mostly uses a wheelchair. Patient states she was worked up in the ER a few weeks ago for this pain but the workup was normal. Patient denies fever, chills, nausea, vomiting. Patient has no other complaints at this time. Upon arrival to ER, her vital signs are stable. - Related Data Home Medications Medication Instructions Recorded Confirmed Levothyroxine Sodium [Synthroid] 100 mcg PO DAILY 08/29/13 03/18/19 Atorvastatin Calcium [Lipitor] 10 mg PO HS 10/06/18 03/18/19 Pregabalin [Lyrica] 100 mg PO TID 02/03/19 03/18/19 Ciprofloxacin HCl [Cipro] 500 mg PO BID 03/18/19 03/18/19 HYDROcodone/APAP 7.5-325MG [[place] 1 tab PO Q6H PRN 03/18/19 03/18/19 7.5-325] Lisinopril [Zestril] 20 mg PO BID 03/18/19 03/18/19 Naproxen Sodium [Aleve] 220 mg PO Q12HR PRN 03/18/19 03/18/19 amLODIPine [Norvasc] 10 mg PO DAILY 03/18/19 03/18/19 Allergies Allergy/AdvReac Type Severity Reaction Status Date / Time Sulfa (Sulfonamide Allergy Rash/Hives Verified 04/12/19 14:10 Antibiotics) Review of Systems ROS Statement: Those systems with pertinent positive or pertinent negative responses have been documented in the HPI. ROS Other: All systems not noted in ROS Statement are negative. Past Medical History Past Medical History: Hyperlipidemia, Hypertension, Osteoarthritis (OA), Skin Disorder, Thyroid Disorder Additional Past Medical History / Comment(s): Nonambulatory/pivots to wheelchair normally, chronic low back pain, neuropathy bilateral feet, chronic venous stasis, current L heel/L yost wound, bilateral leg cellulitis, past L foot ulcer, lymphedema bilateral legs, DJD, past R ankle fracture x3, UTIs, stress incontinence, chronic anemia, umbilical hernia, hypothyroid. History of Any Multi-Drug Resistant Organisms: MRSA, Other MDRO Date of last positivie culture/infection: 12/14/18 MDRO Source:: Left Heel & Left Foot Past Surgical History: Section, Cholecystectomy, Orthopedic Surgery, Tubal Ligation Additional Past Surgical History / Comment(s): L leg I&D, bilateral knee arthroscopies, L great toe amp d/t nonhealing wound, PICCS, D&Cs Past Anesthesia/Blood Transfusion Reactions: Previous Problems w/ Anesthesia Additional Past Anesthesia/Blood Transfusion Reaction / Comment(s): slow to come out of it/muscle weakness Past Psychological History: No Psychological Hx Reported Smoking Status: Never smoker Past Alcohol Use History: None Reported Past Drug Use History: None Reported - Past Family History Father Family Medical History: Cancer, Coronary Artery Disease (CAD), Myocardial Infarction ([place]), Prostate Disorder Additional Family Medical History / Comment(s): Prostate CA Mother Family Medical History: Cancer, CVA/TIA, Hyperlipidemia Additional Family Medical History / Comment(s): Lung CA-left lobe removed General Exam - General Exam Comments Initial Comments: GENERAL: Obese, in no acute distress. HEAD: Atraumatic, normocephalic. EYES: Pupils equal round and reactive to light, extraocular movements intact, sclera anicteric, conjunctiva are normal. ENT: TMs normal, nares patent, oropharynx clear without exudates. Moist mucous membranes. NECK: Normal range of motion, supple without lymphadenopathy or JVD. LUNGS: Breath sounds clear to auscultation bilaterally and equal. No wheezes rales or rhonchi. HEART: Regular rate and rhythm without murmurs, rubs or gallops. ABDOMEN: Soft, nontender, normoactive bowel sounds. No guarding, no rebound. No masses appreciated. : Deferred EXTREMITIES: Patient has bilateral lower leg edema secondary to chronic venous stasis. There is an approximate 3 cm in diameter chronic ulcer wound of the left heel with surrounding erythema and mild edema. There is pain with palpation surrounding the wound and into the middle of the left foot. Patient also has a small wound on the tip of her left second digit that is currently draining yellow fluid. Patient also has swelling and erythema of this left second digit as well as pain into the left forefoot. Surgical amputation noted of left first digit. Patient has good dorsal pedis pulse. Patient is unable to stand at this time for a full lumbar evaluation. Patient does have pain in the lumbar paraspinals. NEUROLOGICAL: Normal speech. PSYCH: Normal mood, normal affect. SKIN: Warm, Dry, normal turgor. Limitations: no limitations Course Vital Signs 04/12/19 04/12/19 14:11 14:15 Temperature 97.8 F Pulse Rate 96 85 Respiratory 18 18 Rate Blood Pressure 129/83 99/55 O2 Sat by Pulse 99 99 Oximetry Medical Decision Making - Medical Decision Making Patient is a 63-year-old female presenting with a wound on her left heel as well as chronic low back pain. Vital signs are stable. C-reactive protein is 40.1, no other acute abnormalities. Lactic acid is 0.8. Blood cultures are pending. X-ray left foot shows distal tuft osseous erosion of the second distal phalanx of the left foot, osteomyelitis with overlying ulcer. No evidence of osteomyelitis of the calcaneus. I discussed these findings with the patient. Patient will be admitted for IV antibiotics and wound care consult. Patient receiving Zosyn as well as Vanco. Patient is agreement with this plan of care. Case was discussed with Dr. Ca. Dr. Magallanes is accepting. - Lab Data Result diagrams: 04/12/19 15:05 04/12/19 15:05 Lab Results 04/12/19 04/12/19 04/12/19 Range/Units 15:05 15:05 15:05 WBC 6.6 (3.8-10.6) k/uL RBC 3.36 L (3.80-5.40) m/uL Hgb 9.6 L (11.4-16.0) gm/dL Hct 30.4 L (34.0-46.0) % MCV 90.5 (80.0-100.0) fL MCH 28.5 (25.0-35.0) pg MCHC 31.5 (31.0-37.0) g/dL RDW 15.4 (11.5-15.5) % Plt Count 146 L (150-450) k/uL Neutrophils % 79 % Lymphocytes % 8 % Monocytes % 8 % Eosinophils % 2 % Basophils % 1 % Neutrophils # 5.2 (1.3-7.7) k/uL Lymphocytes # 0.5 L (1.0-4.8) k/uL Monocytes # 0.5 (0-1.0) k/uL Eosinophils # 0.2 (0-0.7) k/uL Basophils # 0.1 (0-0.2) k/uL Hypochromasia Slight ESR Cancelled Sodium 140 (137-145) mmol/L Potassium 4.3 (3.5-5.1) mmol/L Chloride 109 H (98-107) mmol/L Carbon Dioxide 26 (22-30) mmol/L Anion Gap 5 mmol/L BUN 20 H (7-17) mg/dL Creatinine 0.90 (0.52-1.04) mg/dL Est GFR (CKD-EPI)AfAm 79 (>60 ml/min/1.73 sqM) Est GFR (CKD-EPI)NonAf 68 (>60 ml/min/1.73 sqM) Glucose 89 (74-99) mg/dL Plasma Lactic Acid Lm 0.8 (0.7-2.0) mmol/L Calcium 9.7 (8.4-10.2) mg/dL Total Bilirubin 0.5 (0.2-1.3) mg/dL AST 25 (14-36) U/L ALT 12 (4-34) U/L Alkaline Phosphatase 144 H (38-126) U/L C-Reactive Protein 40.1 H (<10.0) mg/L Total Protein 6.7 (6.3-8.2) g/dL Albumin 3.7 (3.5-5.0) g/dL Disposition Clinical Impression: Osteomyelitis of second toe of left foot, Chronic low back pain Disposition: ADMITTED IP TO THIS [facility] Condition: Good Is patient prescribed a controlled substance at d/c from ED?: No Referrals: Adonis Mcfarlane DO [Primary Care Provider] - 1-2 days Decision Date: 04/12/19 Decision Time: 16:00
[2019-04-12 15:18] LABS: Basophils # (A) 0.1 k/uL (0-0.2); Basophils % (A) 1 %; Eosinophils # (A) 0.2 k/uL (0-0.7); Eosinophils % (A) 2 %; HCT 30.4 % (34.0-46.0); HGB 9.6 gm/dL (11.4-16.0); Hypochromasia Slight; Lymphocytes # (A) 0.5 k/uL (1.0-4.8); Lymphocytes % (A) 8 %; MCH 28.5 pg (25.0-35.0); MCHC 31.5 g/dL (31.0-37.0); MCV 90.5 fL (80.0-100.0); Mean Platelet Volume 9.6; Monocytes # (A) 0.5 k/uL (0-1.0); Monocytes % (A) 8 %; Neutrophils # (A) 5.2 k/uL (1.3-7.7); Neutrophils % (A) 79 %; Platelet Count 146 k/uL (150-450); RBC 3.36 m/uL (3.80-5.40); RDW 15.4 % (11.5-15.5); WBC 6.6 k/uL (3.8-10.6)
[2019-04-12 15:24] LABS: Albumin 3.7 g/dL (3.5-5.0); C Reactive Protein 40.1 mg/L (<10.0); Calcium 9.7 mg/dL (8.4-10.2); Potassium 4.3 mmol/L (3.5-5.1); Total Bilirubin 0.5 mg/dL (0.2-1.3); Total Protein 6.7 g/dL (6.3-8.2)
--- NOTE | 2019-04-12 15:28 | XR ---
EXAMINATION TYPE: XR foot limited LT DATE OF EXAM: 04/12/2019 CLINICAL HISTORY: Nonhealing wound of the second left toe and heel. TECHNIQUE: Frontal, lateral, and oblique images of the left foot are obtained. COMPARISON: None FINDINGS: There is diffuse osseous demineralization and joint space narrowing of the hindfoot. There is partial amputation of the first metatarsal and all of the phalanges. There is cortical erosion of the distal tuft of the second phalanx with skin ulceration. Joint space narrowing of the metatarsal p halangeal joints and distal interphalangeal joints are also seen. Small vessel atherosclerosis is not ed. Moderate plantar and Achilles heel spurs. Talar dome flattening is present. Diffuse osseous demin eralization and pes planus deformity. Diffuse left lower extremity subcutaneous edema. IMPRESSION: 1. Distal tuft osseous erosion of the second distal phalanx of the left foot, sequela of osteomyeliti s with overlying ulcer. 2. No radiographic evidence of osteomyelitis of the calcaneus. 3. Diffuse osseous demineralization, generalized soft tissue swelling, and advanced arthropathy of th e hindfoot the talar dome flattening.
[2019-04-12] MEDS ORDERED: PIPERACILLIN-TAZOBACTAM 3.375 GM in SODIUM CHLORIDE 0.9% 100 ML IVPB STA (15:54)
[2019-04-12] MEDS ORDERED: NALOXONE 0.4 MG/ML 1 ML VIAL IV PRN (15:54)
[2019-04-12] MEDS ORDERED: HYDROcodone/APAP 5-325MG 1 EACH TAB PO PRN (15:54)
[2019-04-12] MEDS ORDERED: ONDANSETRON 4 MG/2 ML VIAL IVP PRN (15:54)
[2019-04-12] MEDS ORDERED: ACETAMINOPHEN TAB 325 MG TAB PO PRN (15:54)
[2019-04-12] MEDS ORDERED: VANCOMYCIN IV PER PHARMACY 1 EACH MISC MISCELLANE PRN (15:54)
[2019-04-12] MEDS ORDERED: VANCOMYCIN 2,500 MG in SODIUM CHLORIDE 0.9% 500 ML 500 ML IVPB ONE (16:30)
[2019-04-12] MEDS: SODIUM CHLORIDE 0.9% 1,000 ML IV SCH (16:55)
[2019-04-12] MEDS: MORPHINE SULFATE 4 MG/ML SYRINGE IV PRN (21:37)
--- NOTE | 2019-04-12 23:04 | P.HPIM ---
History of Present Illness H&P Date: 04/12/19 Chief Complaint: Left heel pain Chief Complaint: Left heel pain History of presenting complaint: This is a pleasant 63-year-old patientof Dr. Mcfarlane. Chronic stable medical conditions include idiopathic peripheral neuropathy, morbid obesity, primary osteoarthritis, essential hypertension, hypothyroid, , urinary stress incontinence, chronic venous stasis, hyperlipidemia, bilateral lower extremity lymphedema. Had a baseline patient uses a wheelchair to get about. Patient follows up toe wound care center and sees Dr. Morris. Patient started to have severe pain in the left he has a somebody's poking knife started about 4 days ago. No fever no chills. Patient has no left foot big toe. Left foot second toe is also giving pain discomfort. X-rays in the ER. Did reveal involvement of the bone patient admitted for the same patient is also having low back pain for last 2 months. 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 Was at [facility] for rehab. Recently. Smoked for 20 years stopped in 1990. Alcohol rarely. Physical examination: VITAL SIGNS: 97.8, 96, 18, 129/83, and 99% room air GENERAL: BMI43.8, laying in bed not in distress EYES: Pupils equal. Conjunctiva normal. HEENT: External appearance of nose and ears normal, oral cavity grossly normal. NECK: JVD unable to assess; masses not palpable. HEART: Distal heart sounds; some edema. LUNGS: Respiratory rate normal; distant breath sounds. ABDOMEN: Soft, nontender, liver spleen not palpable, no masses palpable. Um bilical hernia PSYCH: Alert and oriented x3; mood and affect normal. NEUROLOGICAL: Cranial nerves grossly intact; no facial asymmetry, power and sensation grossly intact. LYMPHATICS: No lymph nodes palpable in the axilla and neck MUSCULAR skeletal: Less range of motion around the left hip compared to the right. lower extremity with venous is insufficiency and lymphedema Left lower extremity: A large boggy cyst of the left heel, absent first toe, some tenderness of the left second toe. INVESTIGATIONS, reviewed in the clinical context: White count 6.6 hemoglobin 9.6 creatinine 0.9 from January 2019:Computed tomography scan of the abdomen-multilevel DJD, some mild spinal canal stenosis and severe bilateral neuroforaminal stenosis in both sides at L1-L2 and L5-S1 and moderate to severe on the right at L3-L4. X-ray of foot distal osseous erosion of the second distal phalanx on the left foot, diffuse osseous demineralization advanced arthropathy of the hindfoot of the talar dome flattening. Assessment: -Acute left foot pain in the left heel and midfoot, most likely from loss of arch and severe arthritis of the foot. There is no breakdown of skin and collection of fluid probably from lymphedema. Highly Doubt osteomyelitis. But to confirm the same will check MRI of the foot. -Acute on chroniclow back pain, likely from spinal stenosis/herniated disc with radiculopathy and down and affect. This is most likely from L1-L2 and L3-L4 nerve distribution. -Hyperlipidemia -Essential hypertension -Primary osteoarthritis -Hypothyroid -Chronic medical debility uses a vision -Idiopathic peripheral neuropathy -Chronic venous stasis -Bilateral lower extremity lymphedema -Chronic urinary stress incontinence -Chronic umbilical hernia Plan: We'll start the patient on steroids, and NSAIDs. Consultation being made to orthopedic spine and infectious disease. Home medications resumed. MRI of the foot being ordered. Care was discussed with the patient.. Past Medical History Past Medical History: Hyperlipidemia, Hypertension, Osteoarthritis (OA), Skin Disorder, Thyroid Disorder Additional Past Medical History / Comment(s): Nonambulatory/pivots to wheelchair normally, chronic low back pain, neuropathy bilateral feet, chronic venous stasis, current L heel/L yost wound, bilateral leg cellulitis, past L foot ulcer, lymphedema bilateral legs, DJD, past R ankle fracture x3, UTIs, stress incontinence, chronic anemia, umbilical hernia, hypothyroid. History of Any Multi-Drug Resistant Organisms: MRSA, Other MDRO Date of last positivie culture/infection: 12/14/18 MDRO Source:: Left Heel & Left Foot Past Surgical History: Section, Cholecystectomy, Orthopedic Surgery, Tubal Ligation Additional Past Surgical History / Comment(s): L leg I&D, bilateral knee arthroscopies, L great toe amp d/t nonhealing wound, PICCS, D&Cs Past Anesthesia/Blood Transfusion Reactions: Previous Problems w/ Anesthesia Additional Past Anesthesia/Blood Transfusion Reaction / Comment(s): slow to come out of it/muscle weakness Past Psychological History: No Psychological Hx Reported Smoking Status: Never smoker Past Alcohol Use History: None Reported Past Drug Use History: None Reported - Past Family History Father Family Medical History: Cancer, Coronary Artery Disease (CAD), Myocardial Infarction ([place]), Prostate Disorder Additional Family Medical History / Comment(s): Prostate CA Mother Family Medical History: Cancer, CVA/TIA, Hyperlipidemia Additional Family Medical History / Comment(s): Lung CA-left lobe removed Medications and Allergies Home Medications Medication Instructions Recorded Confirmed Type Levothyroxine Sodium [Synthroid] 100 mcg PO DAILY 08/29/13 04/12/19 History Atorvastatin Calcium [Lipitor] 10 mg PO HS 10/06/18 04/12/19 History Pregabalin [Lyrica] 100 mg PO TID 02/03/19 04/12/19 History Ciprofloxacin HCl [Cipro] 500 mg PO BID 03/18/19 04/12/19 History HYDROcodone/APAP 7.5-325MG [[place] 1 tab PO Q6H PRN 03/18/19 04/12/19 History 7.5-325] Lisinopril [Zestril] 20 mg PO BID 03/18/19 04/12/19 History amLODIPine [Norvasc] 10 mg PO DAILY 03/18/19 04/12/19 History Biotin 5 mg PO DAILY 04/12/19 04/12/19 History Allergies Allergy/AdvReac Type Severity Reaction Status Date / Time Sulfa (Sulfonamide Allergy Rash/Hives Verified 04/12/19 16:31 Antibiotics) Physical Exam Vitals: Vital Signs Temp Pulse Pulse Resp BP BP Pulse Ox 04/12/19 18:25 97.8 F 81 16 116/72 98 04/12/19 18:00 18 115/62 97 04/12/19 17:30 117/71 04/12/19 17:00 18 120/56 96 04/12/19 16:30 102/52 97 04/12/19 16:15 18 99 04/12/19 16:00 98/50 98 04/12/19 15:30 99/55 96 04/12/19 15:15 18 99 04/12/19 15:01 95 04/12/19 14:15 85 18 99/55 99 04/12/19 14:11 97.8 F 96 18 129/83 99 Intake and Output 04/12/19 04/12/19 04/12/19 06:59 14:59 22:59 Other: Weight 130.635 kg Results CBC & Chem 7: 04/12/19 15:05 04/12/19 15:05 Labs: Abnormal Lab Results - Last 24 Hours (Table) 04/12/19 04/12/19 04/12/19 Range/Units 15:05 15:05 16:15 RBC 3.36 L (3.80-5.40) m/uL Hgb 9.6 L (11.4-16.0) gm/dL Hct 30.4 L (34.0-46.0) % Plt Count 146 L (150-450) k/uL Lymphocytes # 0.5 L (1.0-4.8) k/uL ESR 61 H (0-20) mm/hr Chloride 109 H (98-107) mmol/L BUN 20 H (7-17) mg/dL Alkaline Phosphatase 144 H (38-126) U/L C-Reactive Protein 40.1 H (<10.0) mg/L
[2019-04-12] MEDS ORDERED: predniSONE 20 MG TAB PO STA (23:07)
[2019-04-12] MEDS: NAPROXEN 250 MG TAB PO SCH (23:40)
[2019-04-12] MEDS: LISINOPRIL 20 MG TAB PO SCH (23:41)
[2019-04-12] MEDS: PREGABALIN 100 MG CAP PO SCH (23:41)
[2019-04-13] MEDS: MORPHINE SULFATE 4 MG/ML SYRINGE IV PRN ×4 (02:12→22:26)
[2019-04-13] MEDS: LEVOTHYROXINE 100 MCG TAB PO SCH (05:47)
[2019-04-13] MEDS ORDERED: VANCOMYCIN 2,250 MG in SODIUM CHLORIDE 0.9% 500 ML 500 ML IVPB SCH (06:00)
[2019-04-13] MEDS: PREGABALIN 100 MG CAP PO SCH ×3 (08:35→20:12)
[2019-04-13] MEDS: LISINOPRIL 20 MG TAB PO SCH ×2 (08:35→20:08)
[2019-04-13] MEDS: predniSONE 20 MG TAB PO SCH (08:35)
[2019-04-13] MEDS: NAPROXEN 250 MG TAB PO SCH ×3 (08:35→20:07)
[2019-04-13] MEDS: amLODIPine 10 MG TAB PO SCH ×2 (08:35→08:37)
[2019-04-13] MEDS: FAMOTIDINE 20 MG TAB PO SCH ×2 (08:35→20:07)
--- NOTE | 2019-04-13 08:35 | P.CON ---
Consult Note - . Consult date: 04/13/19 Assessment/Plan:: This is a 63 pleasant female who is known to the wound care center being seen on 6 for ulcerations to the left lower extremity. Patient states about 4 days ago she had noticed that the ulceration to her second digit of her left foot seemed to be worse with redness radiating to mid foot. Patient states that she was having sharp pain to her heel and was instructed by her home care nurse to come to the emergency room. X-ray was performed and found to have osteomyelitis to the second digit of the left foot. Patient has had previous right great toe amputation related to nonhealing ulcerations and osteomyelitis in the past. She is being seen by Dr. Danielson in the wound care clinic. Left plantar calcaneus wound pressure related measures approximately 2.8 x 2.8 x 0.2 cm with fat layer exposure, there is no tunneling or undermining, does have serosanguineous drainage, the wound that shows granulation with minimal adherent Slough. Left posterior lower leg pressure related ulceration with fatty layer exposure measuring approximately 8.6 x 2.7 x 0.2 cm no tunneling or undermining noted. Small amount of serous drainage. The wound has necrotic tissue within the wound that included adherent Slough and exudate. There is minimal granulation noted. Ulceration to second digit of left foot distal aspect pressure related stage III. Measuring 0.5 x 0.9 x 0.4 PERRLA drainage noted, induration and erythema around digit. Review Of Systems: Constitutional: No fever, no chills, no night sweats. No weight change. No weakness, fatigue or lethargy. No daytime sleepiness. Integumentary:reports wounds, no lesions. No rash or pruritus. No unusual bruising. No change in hair or nails. Physical exam: General Appearance: Alert, cooperative, no distress, appears stated age. Skin: See HPI all other Skin color pale, texture dry, tugor decreased, no rashes or lesions. Neurologic: Alert oriented x3 Assessment/plan: 1. Osteomyelitis 2 right second digit. Consult Dr. Danielson, collagen silver, saline moistened gauze, dry gauze and rolled gauze applied to ulcers. Minimal weightbearing. Upon discharge patient to continue wound care visits in the wound care center. 2. Stage III pressure ulcer to left second digit 3. Stage II pressure ulcer to left calcaneus with fatty layer exposure 4. Nonhealing ulceration to left posterior lateral leg with fatty layer exposure Thank you for the consult, any questions please contact the wound care center. DNP note has been reviewed and discussed with Dr. Suazo and the impression and plan of care has been directed as dictated.
[2019-04-13] MEDS: SODIUM CHLORIDE 0.9% 1,000 ML IV SCH (08:36)
[2019-04-13] MEDS ORDERED: PANTOPRAZOLE 40 MG/10 ML VIAL IV SCH (09:00)
[2019-04-13 10:04] VITALS: BMI 43.7
--- NOTE | 2019-04-13 18:39 | MR ---
EXAMINATION TYPE: MR foot LT wo/w con DATE OF EXAM: 04/13/2019 COMPARISON: 09/18/2017 HISTORY: heel and left 2nd toe pain, osteomyelitis CONTRAST: Standard multiplanar, multisequence MRI departmental protocol utilizing 13 mL intravenous Gadavist ga dolinium contrast. There is amputation deformity of the big toe at the level of the head of the proximal phalanx. There is significant arthritic change at the first MP joint with lateral subluxation of the proximal phalan x. There is some destructive changes in the distal phalanx of the second toe. I see no focal destruct ion of the metatarsals. There is significant soft tissue swelling and subcutaneous edema around the lower leg and the foot. T he Achilles tendon is intact. Plantar fascia is intact. There are large plantar and Achilles calcanea l spurs. IMPRESSION: Significant subcutaneous edema around the lower leg consistent with diffuse cellulitis and lymphedema . Destructive changes in the second toe distal phalanx as above consistent with osteomyelitis. This shivani ears new compared to old exam. Amputation deformity of the big toe. is a change compared to old exam.
[2019-04-13] MEDS: ATORVASTATIN 10 MG TAB PO SCH (20:07)
[2019-04-13] MEDS: VANCOMYCIN 2,000 MG in SODIUM CHLORIDE 0.9% 500 ML 500 ML IVPB SCH (20:08)
--- NOTE | 2019-04-13 22:45 | P.CON ---
Consult Note - . Consult date: 04/13/19 Assessment/Plan:: This is a 63 pleasant female who is known to the wound care center being seen on 6 for ulcerations to the left lower extremity. Patient states about 4 days ago she had noticed that the ulceration to her second digit of her left foot seemed to be worse with redness radiating to mid foot. Patient states that she was having sharp pain to her heel and was instructed by her home care nurse to come to the emergency room. X-ray was performed and found to have osteomyelitis to the second digit of the left foot. Patient has had previous right great toe amputation related to nonhealing ulcerations and osteomyelitis in the past. She is being seen by Dr. Danielson in the wound care clinic. Left plantar calcaneus wound pressure related measures approximately 2.8 x 2.8 x 0.2 cm with fat layer exposure, there is no tunneling or undermining, does have serosanguineous drainage, the wound that shows granulation with minimal adherent Slough. Left posterior lower leg pressure related ulceration with fatty layer exposure measuring approximately 8.6 x 2.7 x 0.2 cm no tunneling or undermining noted. Small amount of serous drainage. The wound has necrotic tissue within the wound that included adherent Slough and exudate. There is minimal granulation noted. Ulceration to second digit of left foot distal aspect pressure related stage III. Measuring 0.5 x 0.9 x 0.4 purulent drainage noted, induration and erythema around digit. Please see the consult as dictated by Mrs. Michelle John The patient is in the worsening of her lower extremity ulcerations which is a problem that her admission. The description is clearly stated above. Cultures are obtained. Antibiotic therapy with vancomycin was started with history of MRSA but also has a known history of Pseudomonas and Zosyn was added. Vascular surgery consultation has been requested and there is contemplation of need for amputation second toe. The wound care has been applied as per above orders and she will be monitored. If the MRI shows osteomyelitis and is limited, then potentially amputation and a course of oral antibiotic therapy discharge could be Attempted. High-grade evaluation, assessment and plan as dictated in nurse practitioner Mrs. Michelle John.
--- NOTE | 2019-04-14 00:03 | P.PN ---
Progress Note - Text Progress Note Date: 04/13/19 Chief Complaint: Left heel pain History of presenting complaint: This is a pleasant 63-year-old patientof Dr. Mcfarlane. Chronic stable medical conditions include idiopathic peripheral neuropathy, morbid obesity, primary osteoarthritis, essential hypertension, hypothyroid, , urinary stress incontinence, chronic venous stasis, hyperlipidemia, bilateral lower extremity lymphedema. Had a baseline patient uses a wheelchair to get about. Patient follows up toe wound care center and sees Dr. Morris. Patient started to have severe pain in the left he has a somebody's poking knife started about 4 days ago. No fever no chills. Patient has no left foot big toe. Left foot second toe is also giving pain discomfort. X-rays in the ER. Did reveal involvement of the bone patient admitted for the same patient is also having low back pain for last 2 months. today-no new issues.seen by Dr. Suazo. MRI showing osteomyelitis of the left second toe. Review of systems: Was done for constitutional, cardiovascular, GI, pulmonary. relevant finding as above Active Medications Acetaminophen (Tylenol Tab) 650 mg PO Q6HR PRN PRN Reason: Mild Pain or Fever > 100.5 Hydrocodone Bitart/Acetaminophen ([place] 7.5-325) 1 each PO Q6H PRN PRN Reason: Pain Amlodipine Besylate (Norvasc) 10 mg PO DAILY [facility] Last Admin: 04/13/19 08:37 Dose: Not Given Documented by: Atorvastatin Calcium (Lipitor) 10 mg PO HS [facility] Last Admin: 04/13/19 20:07 Dose: 10 mg Documented by: Famotidine (Pepcid) 20 mg PO BID [facility] Last Admin: 04/13/19 20:07 Dose: 20 mg Documented by: Sodium Chloride (Saline 0.9%) 1,000 mls @ 60 mls/hr IV .[id number] [facility] Last Admin: 04/13/19 08:36 Dose: 60 mls/hr Documented by: Vancomycin HCl 2,000 mg/ (Sodium Chloride) 500 mls @ 167 mls/hr IVPB Q16H [facility] Last Admin: 04/13/19 20:08 Dose: 167 mls/hr Documented by: Levothyroxine Sodium (Synthroid) 100 mcg PO DAILY@0630 [facility] Last Admin: 04/13/19 05:47 Dose: 100 mcg Documented by: Lisinopril (Zestril) 20 mg PO BID [facility] Last Admin: 04/13/19 20:08 Dose: 20 mg Documented by: Morphine Sulfate (Morphine Sulfate (Inj)) 4 mg IV Q4HR PRN PRN Reason: Severe Pain Last Admin: 04/13/19 22:26 Dose: 4 mg Documented by: Naloxone HCl (Narcan) 0.2 mg IV Q2M PRN PRN Reason: Opioid Reversal Naproxen (Naprosyn) 250 mg PO TID [facility] Last Admin: 04/13/19 20:07 Dose: 250 mg Documented by: Ondansetron HCl (Zofran) 4 mg IVP Q8HR PRN PRN Reason: Nausea And Vomiting Prednisone () 40 mg PO DAILY [facility] Last Admin: 04/13/19 08:35 Dose: 40 mg Documented by: Pregabalin (Lyrica) 100 mg PO BID [facility] Last Admin: 04/13/19 20:12 Dose: 100 mg Documented by: Physical examination: VITAL SIGNS: 98.1, 81, 20, 11 9/71, 98% on room air GENERAL: laying in bed, not in distress EYES: Pupils equal. Conjunctiva normal. HEENT: External appearance of nose and ears normal, oral cavity grossly normal. NECK: JVD unable to assess; masses not palpable. HEART: Distal heart sounds; some edema. LUNGS: Respiratory rate normal; distant breath sounds. ABDOMEN: Soft, nontender, liver spleen not palpable, no masses palpable. Umbilical hernia PSYCH: Alert and oriented x3; mood and affect normal. LYMPHATICS: lower extremity lymphedema MUSCULAR skeletal: Less range of motion around the left hip compared to the right. lower extremity with venous is insufficiency and lymphedema Left lower extremity: A large boggy cyst of the left heel, absent first toe, some tenderness of the left second toe. INVESTIGATIONS, reviewed in the clinical context: MRI-suggestive of osteomyelitis of the left foot second toe ESR 61 CRP 40.1 Previous testing White count 6.6 hemoglobin 9.6 creatinine 0.9 from January 2019:Computed tomography scan of the abdomen-multilevel DJD, some mild spinal canal stenosis and severe bilateral neuroforaminal stenosis in both sides at L1-L2 and L5-S1 and moderate to severe on the right at L3-L4. X-ray of foot distal osseous erosion of the second distal phalanx on the left foot, diffuse osseous demineralization advanced arthropathy of the hindfoot of the talar dome flattening. Assessment: -left second toe osteomyelitis, acute has per MRI. Will need amputation likely. -Acute on chroniclow back pain, likely from spinal stenosis/herniated disc with radiculopathy and down and affect. This is most likely from L1-L2 and L3-L4 nerve distribution. -Hyperlipidemia -Essential hypertension -Primary osteoarthritis -Hypothyroid -Chronic medical debility uses a vision -Idiopathic peripheral neuropathy -Chronic venous stasis -Bilateral lower extremity lymphedema -Chronic urinary stress incontinence -Chronic umbilical hernia -Left leg posteriorly, decubitus ulcer, POA Plan: consultations made to rescue surgery. for possible amputation of the second toe. Other medication treatment plan is to continue. Prognosis guarded.
[2019-04-14] MEDS: SODIUM CHLORIDE 0.9% 1,000 ML IV SCH ×2 (00:29→18:00)
[2019-04-14] MEDS: LEVOTHYROXINE 100 MCG TAB PO SCH (05:43)
[2019-04-14] MEDS: HYDROcodone/APAP 7.5-325MG 1 EACH TAB PO PRN ×2 (05:52→15:00)
[2019-04-14 08:12] LABS: HCT 26.8 % (34.0-46.0); HGB 8.4 gm/dL (11.4-16.0); Hypochromasia Slight; MCH 28.8 pg (25.0-35.0); MCHC 31.5 g/dL (31.0-37.0); MCV 91.6 fL (80.0-100.0); Mean Platelet Volume 9.8; Platelet Count 136 k/uL (150-450); RBC 2.92 m/uL (3.80-5.40); RDW 15.5 % (11.5-15.5); WBC 5.2 k/uL (3.8-10.6)
[2019-04-14 08:24] LABS: Calcium 9.1 mg/dL (8.4-10.2); Potassium 4.1 mmol/L (3.5-5.1)
[2019-04-14] MEDS: NAPROXEN 250 MG TAB PO SCH ×3 (08:46→20:54)
[2019-04-14] MEDS: PREGABALIN 100 MG CAP PO SCH ×2 (08:48→20:57)
[2019-04-14] MEDS: LISINOPRIL 20 MG TAB PO SCH ×2 (08:48→20:54)
[2019-04-14] MEDS: predniSONE 20 MG TAB PO SCH (08:48)
[2019-04-14] MEDS: amLODIPine 10 MG TAB PO SCH (08:48)
[2019-04-14] MEDS: FAMOTIDINE 20 MG TAB PO SCH ×2 (08:50→20:54)
--- NOTE | 2019-04-14 10:03 | P.GSCN ---
History of Present Illness Consult date: 04/14/19 History of present illness: The patient is a 63-year-old female who has a past medical history of hypertension, hyperlipidemia, osteoporosis, hypothyroidism, peripheral n europathy, chronic venous insufficiency, bilateral lower extremity with edema, and umbilical hernia and poor mobility. She's had issues with a left lower extremity wound on her heel she has been seen the wound care for for many years. Off-and-on is able to be healed. Recently she began having issues with her left second toe turning more erythematous with a wound at the distal tip. Given its erythema and other issue she was sent into the hospital with initiation of IV antibiotics. We are asked to see this patient regarding possible need for amputation of her second toe.. At this time she denies any fevers, chills, nausea, vomiting or issues otherwise. She states she has not been on any IV antibiotics for this toe. Past Medical History Past Medical History: Hyperlipidemia, Hypertension, Osteoarthritis (OA), Skin Disorder, Thyroid Disorder Additional Past Medical History / Comment(s): Nonambulatory/pivots to wheelchair normally, low back pain, neuropathy bilateral feet, chronic venous stasis, current L heel/L posterior yost/left second toe wounds, bilateral leg cellulitis, past L foot ulcer, lymphedema bilateral legs, DJD, past R ankle fracture x3, UTIs, stress incontinence, chronic anemia, umbilical hernia, hyp othyroid. History of Any Multi-Drug Resistant Organisms: MRSA, Other MDRO Year Discovered:: 12/14/18 MDRO Source:: Left Heel & Left Foot Past Surgical History: Section, Cholecystectomy, Orthopedic Surgery, Tubal Ligation Additional Past Surgical History / Comment(s): L leg I&D, bilateral knee arthroscopies, L great toe amp d/t nonhealing wound, PICCS, D&Cs Past Anesthesia/Blood Transfusion Reactions: Previous Problems w/ Anesthesia Additional Past Anesthesia/Blood Transfusion Reaction / Comm: slow to come out of it/muscle weakness Past Psychological History: No Psychological Hx Reported Additional Psychological History / Comment(s): Pt states she normally can pivot to wheelchair. 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 No travel. No experience. No animals in the home Smoking Status: Former smoker Past Alcohol Use History: None Reported Additional Past Alcohol Use History / Comment(s): Pt started smoking in 1974 and quit in 1990. Past Drug Use History: None Reported - Past Family History Father Family Medical History: Cancer, Coronary Artery Disease (CAD), Myocardial Infarction ([place]), Prostate Disorder Additional Family Medical History / Comment(s): Prostate CA Mother Family Medical History: Cancer, CVA/TIA, Hyperlipidemia Additional Family Medical History / Comment(s): Lung CA-left lobe removed Medications and Allergies Home Medications Medication Instructions Recorded Confirmed Type Levothyroxine Sodium [Synthroid] 100 mcg PO DAILY 08/29/13 04/12/19 History Atorvastatin Calcium [Lipitor] 10 mg PO HS 10/06/18 04/12/19 History Pregabalin [Lyrica] 100 mg PO TID 02/03/19 04/12/19 History Ciprofloxacin HCl [Cipro] 500 mg PO BID 03/18/19 04/12/19 History HYDROcodone/APAP 7.5-325MG [[place] 1 tab PO Q6H PRN 03/18/19 04/12/19 History 7.5-325] Lisinopril [Zestril] 20 mg PO BID 03/18/19 04/12/19 History amLODIPine [Norvasc] 10 mg PO DAILY 03/18/19 04/12/19 History Biotin 5 mg PO DAILY 04/12/19 04/12/19 History Allergies Allergy/AdvReac Type Severity Reaction Status Date / Time Sulfa (Sulfonamide Allergy Rash/Hives Verified 04/12/19 16:31 Antibiotics) Surgical - Exam Vital Signs Temp Pulse Resp BP Pulse Ox 97.8 F 96 18 129/83 99 04/12/19 14:11 04/12/19 14:11 04/12/19 14:11 04/12/19 14:11 04/12/19 14:11 genitals a pleasant cooperative morbidly obese female in no acute distress. HEENT is normal saw, atraumatic, poor dentition. Neck is supple, trachea is midline. Heart is regular at this time. Lungs are clear bilaterally. Abdomen is obese, soft, there is an umbilical hernia which is soft and non tender.bilateral lower extremity show chronic venous stasis changes with lymphoid edema. She has palpable femoral and dorsalis pedis pulses on the right. She has palpable femoral pulse on the left but due to the hardening tissues and swelling it is difficult to feel pulse on the left. She has a u lcerated wound on her heel as well as the second toe which has some minimal erythema. No evidence of drainage. No evidence of wet gangrene. Normal mood and affect. Cranial nerves II through XII grossly intact. Results - Labs 04/14/19 07:40 04/14/19 07:40 Abnormal Lab Results - Last 24 Hours (Table) 04/14/19 04/14/19 Range/Units 07:40 07:40 RBC 2.92 L (3.80-5.40) m/uL Hgb 8.4 L (11.4-16.0) gm/dL Hct 26.8 L (34.0-46.0) % Plt Count 136 L (150-450) k/uL Chloride 111 H (98-107) mmol/L BUN 22 H (7-17) mg/dL Glucose 101 H (74-99) mg/dL Microbiology - Last 24 Hours (Table) 04/12/19 16:15 Blood Culture - Preliminary Blood No Growth after 24 hours Diabetes panel 04/14/19 Range/Units 07:40 Sodium 143 (137-145) mmol/L Potassium 4.1 (3.5-5.1) mmol/L Chloride 111 H (98-107) mmol/L Carbon Dioxide 27 (22-30) mmol/L BUN 22 H (7-17) mg/dL Creatinine 0.83 (0.52-1.04) mg/dL Glucose 101 H (74-99) mg/dL Calcium 9.1 (8.4-10.2) mg/dL Calcium panel 04/14/19 Range/Units 07:40 Calcium 9.1 (8.4-10.2) mg/dL Pituitary panel 04/14/19 Range/Units 07:40 Sodium 143 (137-145) mmol/L Potassium 4.1 (3.5-5.1) mmol/L Chloride 111 H (98-107) mmol/L Carbon Dioxide 27 (22-30) mmol/L BUN 22 H (7-17) mg/dL Creatinine 0.83 (0.52-1.04) mg/dL Glucose 101 H (74-99) mg/dL Calcium 9.1 (8.4-10.2) mg/dL Adrenal panel 04/14/19 Range/Units 07:40 Sodium 143 (137-145) mmol/L Potassium 4.1 (3.5-5.1) mmol/L Chloride 111 H (98-107) mmol/L Carbon Dioxide 27 (22-30) mmol/L BUN 22 H (7-17) mg/dL Creatinine 0.83 (0.52-1.04) mg/dL Glucose 101 H (74-99) mg/dL Calcium 9.1 (8.4-10.2) mg/dL Assessment and Plan Assessment: left second toe ulceration with evidence of osteomyelitis Chronic venous insufficiency Lymphedema Hypertension Hypothyroidism Peripheral neuropathy Plan: at this time would recommend antibiotics per infectious disease. No emergent need for second toe amputation. Would recommend arterial imaging to see if there is any need for possible revascularization to increase blood flow to help heal wounds.again no current emergent need for amputation, if all other issues are stable could give IV antibiotics and follow up as outpatient to see if there is adequate healing of the osteomyelitis prior to recommending amputation. This was discussed with the patient and she seemingly understands adn is in agreement
[2019-04-14] MEDS: PIPERACILLIN-TAZOBACTAM 3.375 GM in SODIUM CHLORIDE 0.9% 100 ML IVPB SCH ×2 (11:41→20:57)
[2019-04-14] MEDS: VANCOMYCIN 2,000 MG in SODIUM CHLORIDE 0.9% 500 ML 500 ML IVPB SCH (14:17)
--- OUTSIDE RECORDS SUMMARY | 2019-04-14 14:43 | XMS REPORT | Referral Summary ---
:1955 Author Name Alvaro Address [facility] [place] [address] Care Team Providers Name Role Phone Jagjit Unavailable Unavailable Suma Unavailable Unavailable Hameed Unavailable Unavailable Allergies, Adverse Reactions and Alerts Substance Reaction Reaction Severity Status Sulfa (Sulfonamide Antibiotics) Rash/Hives Unspecified Active Medications Medication Directions Start Date Status midodrine 5 mg tablet tablet oral three times daily Unspecified active Xanax 0.25 mg tablet tablet oral as needed at night Unspecified active for anxiety gabapentin 600 mg tablet 1 tablet oral BID @ 1000,1400 Unspecifi ed active Lyrica 50 mg capsule 1 capsule oral TID Unspecified active @1000,1400,2200 Neurontin 300 mg capsule 3 capsules oral HS @2200 Unspecified active atorvastatin 10 mg tablet 1 tablet oral daily Unspecified ac tive lisinopril 40 mg tablet 1 tablet oral BID Unspecified active amlodipine 2.5 mg tablet 1 tablet oral daily Unspecified act unruly ferrous sulfate 325 mg (65 mg iron) 1 tablet oral daily Unspecif ied active tablet [place] 7.5 mg-325 mg tablet 1 tablet oral q6 hours PRN Unspecifie d active ibuprofen 800 mg tablet 1 tablet oral TID PRN Unspecified ac tive Zosyn 2.25 gram/50 mL in dextrose piggyback intravenous every 8 Unspecified active (iso-osmotic) intravenous piggyback hours levothyroxine 100 mcg tablet 1 tablet oral daily Unspecified active vancomycin 1,000 mg intravenous recon soln intravenous daily Uns pecified active injection cholecalciferol (vitamin D3) 2,000 1 capsule oral daily Unspecif ied active unit capsule Cipro 500 mg tablet tablet oral 1 PO TWICE DAILY 03/14/2019 active Cipro 500 mg tablet tablet oral 1 tablet twice 04/04/2019 a ctive daily PO ciprofloxacin 500 mg tablet 1 tablet oral BID Unspecified ab orted ciprofloxacin 500 mg tablet 1 tablet oral BID Unspecified ab orted Problems Problem Onset Date Status L89.623 - Pressure ulcer of left heel, stage 3 08/23/2018 active I10 - Essential (primary) hypertension 08/23/2018 a ctive E66.01 - Morbid (severe) obesity due to excess calories 08/23 active M17.0 - Bilateral primary osteoarthritis of knee 08/23/2018 active E03.9 - Hypothyroidism, unspecified 08/23/2018 acti ve L89.324 - Pressure ulcer of left buttock, stage 4 09/27/2018 active Encounters Date Location 04/12/2018 12:00:00 AM [facility] [place] [facility] Encounter Diagnosis: L89.623 - Pressure ulcer of left heel, stage 3 Encounter Diagnosis: I10 - Essential (primary) hypertension Encounter Diagnosis: E66.01 - Morbid (severe) obesity due to excess calories Encounter Diagnosis: M17.0 - Bilateral primary osteoarthritis of knee Encounter Diagnosis: E03.9 - Hypothyroidism, unspecified Encounter Diagnosis: L89.324 - Pressure ulcer of left buttock, stage 4 Vital signs Vital Value Unit Height 68 [in_i] Weight Measured 303 [lb_av] BP Systolic 118 mm[Hg] BP Diastolic 71 mm[Hg] BMI (Body Mass Index) 46.1 Unspecified Weight Measured 137.73 kg Body Temperature 97.6 [degF] Body Temperature 36.44 Elizabeth O2 % BldC Oximetry Unspecified Unspecified Heart Rate 72 /min Respiratory Rate 20 /min Inhaled O2 concentration Unspecified Unspecified Immunizations Name Date Status Immunization information has not been included or does not e xist. Procedures Procedure Date Status Procedure information has not been included or does not exis t. Social History Smoking Status: Former smoker Started: 04/27/1970 Stopped: 04/27/1990 Goals Description Goal: Patient/caregiver will identify fa ctors that restrict self-care and home management Goal: Patient/caregiver will verbalize u nderstanding of skin care regimen Goal: Patient/caregiver will verbalize/d emonstrate understanding of what to do in case of emergency Goal: Patient will remain free from deve lopment of additional pressure ulcers Goal: Patient/caregiver will verbalize r isk factors for pressure ulcer development Goal: Patient/caregiver will verbalize u nderstanding of pressure ulcer management Goal: Patient/caregiver will verbalize u nderstanding of skin care regimen Health Concerns Description Problem: Abuse / Safety / Falls / Self C are Management Problem: Pressure Problem: Wound/Skin Impairment Functional Status Description Date Ambulatory Status - Wheel Chair (Active) 04/04/2019 Highest Pressure Ucler Stage - 336 (Active) 07/14/2011 Assessment and Plan Description Laboratory: Complete Blood Count w/ diff erential (CBC w/diff). Laboratory: Complete Metabolic Panel (CM P). Laboratory: Pre-albumin. Consults: Home Health Services. Plan of Treatment: Patient referred to h ome care Plan of Treatment: Patient referred for pressure reduction/relief devices Plan of Treatment: Pressure reduction/re lief device ordered Plan of Treatment: Patient referred to h ome care Plan of Treatment: Skin care regimen ini tiated Plan of Treatment: Topical wound managem ent initiated Assessment: CC for a woman with obesity and chronic nonhealing ulcerations to the left foot02/14/2018: Patient is tolerati ng dressings without any difficulties. Patient has a new ulceration to the left lateral leg to from her wheelchair and pressure. Patient denies any pain or fe niranjan. Patient states that her buttocks is feeling better she is not having anymore pain. new wound left foot 2nd toe area red, start cipro 500mg BiD. 04/04/19 start ci pro for left 2nd toe,was red and painful this past week Results Name Specimen Value Unit Ref. Range Date Result information has not been included or does not exist. Medical Equipment Implanted Area TASHA Assigning Author brian Medical Equipment information has not been included or does not exist. Reason for Referral transition of care
[2019-04-14] MEDS: ATORVASTATIN 10 MG TAB PO SCH (20:54)
--- NOTE | 2019-04-14 22:51 | P.PN ---
Subjective Progress Note Date: 04/14/19 This is a 63 pleasant female who is known to the wound care center being seen on 6 for ulcerations to the left lower extremity. Patient states about 4 days ago she had noticed that the ulceration to her second digit of her left foot seemed to be worse with redness radiating to mid foot. Patient states that she was having sharp pain to her heel and was instructed by her home care nurse to come to the emergency room. X-ray was performed and found to have osteomyelitis to the second digit of the left foot. Patient has had previous right great toe amputation related to nonhealing ulcerations and osteomyelitis in the past. She is being seen by Dr. Danielson in the wound care clinic. Left plantar calcaneus wound pressure related measures approximately 2.8 x 2.8 x 0.2 cm with fat layer exposure, there is no tunneling or undermining, does have serosanguineous drainage, the wound that shows granulation with minimal adherent Slough. Left posterior lower leg pressure related ulceration with fatty layer exposure measuring approximately 8.6 x 2.7 x 0.2 cm no tunneling or undermining noted. Small amount of serous drainage. The wound has necrotic tissue within the wound that included adherent Slough and exudate. There is minimal granulation noted. Ulceration to second digit of left foot distal aspect pressure related stage III. Measuring 0.5 x 0.9 x 0.4 purulent drainage noted, induration and erythema around digit. 04/14/2019 Patient is feeling better looking forward to transfer. She does not have troubles such as fevers or chills at this time. Evaluation by vascular surgery is in process. Objective - Vital Signs Vital signs: Vital Signs Temp 97.8 F 04/14/19 14:18 Pulse 71 04/14/19 14:18 Resp 16 04/14/19 15:57 BP 104/55 04/14/19 14:18 Pulse Ox 97 04/14/19 14:18 Intake & Output 04/14/19 04/14/19 04/15/19 06:59 18:59 06:59 Intake Total 300 750 400 Output Total 1 Balance 299 750 400 Intake: Oral 300 750 400 Output: Urine/Stool Mix 1 Other: Voiding Method Bedpan Bedpan # Voids 2 1 1 # Bowel Movements 1 1 - Exam pleasant superobese woman HEENT: Anicteric conjunctiva are pink and moist nasal mucosa grossly intact without significant lesions, there is no thrush. Neck: The neck is supple without significant lymphadenopathy or thyromegaly. Lungs: symmetrical air entry basilar crackles no bronchial sounds Heart: irregular without any murmur Abdomen: obese,Positive bowel sounds soft and nontender without palpable masses or organomegaly. There was no guarding or rebound. Extremities: The upper extremities have excellent pulses they are symmetric, no significant petechiae or telangiectasia. No splinter hemorrhages were noted. work Jacquelyn evidence of the chronic changes from her underlying inflammatory skin disorder but has new changes to that left foot second toe persist. Drainage is improved since receiving antibiotic therapy. Neuro: Awake alert oriented to person place and time. There are no acute new gross focal sensory motor deficits. - Labs CBC & Chem 7: 04/14/19 07:40 04/14/19 07:40 Labs: Abnormal Lab Results - Last 24 Hours (Table) 04/14/19 04/14/19 Range/Units 07:40 07:40 RBC 2.92 L (3.80-5.40) m/uL Hgb 8.4 L (11.4-16.0) gm/dL Hct 26.8 L (34.0-46.0) % Plt Count 136 L (150-450) k/uL Chloride 111 H (98-107) mmol/L BUN 22 H (7-17) mg/dL Glucose 101 H (74-99) mg/dL Microbiology - Last 24 Hours (Table) 04/12/19 16:15 Blood Culture - Preliminary Blood No Growth after 48 hours Laboratory Results WBC 5.2 k/uL (3.8-10.6) 04/14/19 07:40 RBC 2.92 m/uL (3.80-5.40) L 04/14/19 07:40 Hgb 8.4 gm/dL (11.4-16.0) L 04/14/19 07:40 Hct 26.8 % (34.0-46.0) L 04/14/19 07:40 MCV 91.6 fL (80.0-100.0) 04/14/19 07:40 MCH 28.8 pg (25.0-35.0) 04/14/19 07:40 MCHC 31.5 g/dL (31.0-37.0) 04/14/19 07:40 RDW 15.5 % (11.5-15.5) 04/14/19 07:40 Plt Count 136 k/uL (150-450) L 04/14/19 07:40 Neutrophils % 79 % 04/12/19 15:05 Lymphocytes % 8 % 04/12/19 15:05 Monocytes % 8 % 04/12/19 15:05 Eosinophils % 2 % 04/12/19 15:05 Basophils % 1 % 04/12/19 15:05 Neutrophils # 5.2 k/uL (1.3-7.7) 04/12/19 15:05 Lymphocytes # 0.5 k/uL (1.0-4.8) L 04/12/19 15:05 Monocytes # 0.5 k/uL (0-1.0) 04/12/19 15:05 Eosinophils # 0.2 k/uL (0-0.7) 04/12/19 15:05 Basophils # 0.1 k/uL (0-0.2) 04/12/19 15:05 Hypochromasia Slight 04/14/19 07:40 ESR 61 mm/hr (0-20) H 04/12/19 16:15 Sodium 143 mmol/L (137-145) 04/14/19 07:40 Potassium 4.1 mmol/L (3.5-5.1) 04/14/19 07:40 Chloride 111 mmol/L (98-107) H 04/14/19 07:40 Carbon Dioxide 27 mmol/L (22-30) 04/14/19 07:40 Anion Gap 5 mmol/L 04/14/19 07:40 BUN 22 mg/dL (7-17) H 04/14/19 07:40 Creatinine 0.83 mg/dL (0.52-1.04) 04/14/19 07:40 Est GFR (CKD-EPI)AfAm 87 (>60 ml/min/1.73 sqM) 04/14/19 07:40 Est GFR (CKD-EPI)NonAf 75 (>60 ml/min/1.73 sqM) 04/14/19 07:40 Glucose 101 mg/dL (74-99) H 04/14/19 07:40 Plasma Lactic Acid Lm 0.8 mmol/L (0.7-2.0) 04/12/19 15:05 Calcium 9.1 mg/dL (8.4-10.2) 04/14/19 07:40 Total Bilirubin 0.5 mg/dL (0.2-1.3) 04/12/19 15:05 AST 25 U/L (14-36) 04/12/19 15:05 ALT 12 U/L (4-34) 04/12/19 15:05 Alkaline Phosphatase 144 U/L (38-126) H 04/12/19 15:05 C-Reactive Protein 40.1 mg/L (<10.0) H 04/12/19 15:05 Total Protein 6.7 g/dL (6.3-8.2) 04/12/19 15:05 Albumin 3.7 g/dL (3.5-5.0) 04/12/19 15:05 Microbiology 04/12/19 16:15 Blood Blood Culture - Preliminary No Growth after 48 hours Assessment and Plan (1) Pyoderma gangrenosum Current Visit: Yes Status: Acute Code(s): L88 - PYODERMA GANGRENOSUM SNOMED Code(s): 46405946 (2) Acute osteomyelitis of toe of left foot Narrative/Plan: 63-year-old woman with multiple medical troubles does have the chronic inflammatory disease to her legs this found the wound center but is developed acute changed to the right foot second toe which is consistent with underlying osteomyelitis and wound infection. As a history of MRSA and Pseudomonas. She's been seen by vascular surgery and the plan will be for outpatient intravenous antibiotic therapy with Zosyn for coverage of the Pseudomonas as well as oral doxycycline for the treatment of the MRSA. She'll follow-up with the wound healing Center here at she'll see her vascular surgeon and then plans for surgical debridement as needed in the future. Midline catheter is been requested and prescriptions are given to case management for discharge planning. Current Visit: No Status: Acute Code(s): M86.172 - OTHER ACUTE OSTEOMYELITIS, LEFT ANKLE AND FOOT SNOMED Code(s): 277224013
[2019-04-15] MEDS: HYDROcodone/APAP 7.5-325MG 1 EACH TAB PO PRN ×2 (00:17→14:53)
[2019-04-15] MEDS: PIPERACILLIN-TAZOBACTAM 3.375 GM in SODIUM CHLORIDE 0.9% 100 ML IVPB SCH ×2 (03:29→14:49)
[2019-04-15] MEDS ORDERED: VANCOMYCIN TROUGH DUE 1 EACH MISC MISCELLANE ONE ×2 (05:00→21:00)
[2019-04-15] MEDS: LEVOTHYROXINE 100 MCG TAB PO SCH (05:43)
[2019-04-15] MEDS: VANCOMYCIN 2,000 MG in SODIUM CHLORIDE 0.9% 500 ML 500 ML IVPB SCH (07:54)
[2019-04-15] MEDS: FAMOTIDINE 20 MG TAB PO SCH (07:54)
[2019-04-15] MEDS: predniSONE 20 MG TAB PO SCH (07:54)
[2019-04-15] MEDS: NAPROXEN 250 MG TAB PO SCH ×2 (07:54→14:51)
[2019-04-15] MEDS: amLODIPine 10 MG TAB PO SCH (07:54)
[2019-04-15] MEDS: LISINOPRIL 20 MG TAB PO SCH (08:54)
[2019-04-15] MEDS: PREGABALIN 100 MG CAP PO SCH ×2 (08:55→14:51)
[2019-04-15] MEDS ORDERED: MIDAZOLAM 2 MG/2 ML VIAL IVP ONE (12:09)
[2019-04-15] MEDS ORDERED: SODIUM CHLORIDE 0.9% 1,000 ML IV ONE (12:13)
[2019-04-15] MEDS: SODIUM CHLORIDE 0.9% 1,000 ML IV SCH (12:16)
--- NOTE | 2019-04-15 13:19 | P.PN ---
Progress Note - Text Progress Note Date: 04/14/19 Chief Complaint: Left heel pain Interval history: This is a pleasant 63-year-old patientof Dr. Mcfarlane. Chronic stable medical conditions include idiopathic peripheral neuropathy, morbid obesity, primary osteoarthritis, essential hypertension, hypothyroid, , urinary stress incontinence, chronic venous stasis, hyperlipidemia, bilateral lower extremity lymphedema, pyoderma gangrenosum. Had a baseline patient uses a wheelchair to get about. Patient follows up wound care center and sees Dr. Morris. Patient started to have severe pain in the left heel as if somebody's poking knife, started about 4 days ago. No fever no chills. Patient has no left big toe. Left foot second toe is also giving pain discomfort. X-rays in the ER. Did reveal involvement of the bone patient admitted for the same patient is also having low back pain for last 2 months. MRI did confirm osteomyelitis of the left foot second toe. Today-laying in bed. Comfortable. No new issues. Putting her diet. Review of systems: Was done for constitutional, cardiovascular, GI, pulmonary. relevant finding as above Current medications reviewed in today's electronic records Physical examination: VITAL SIGNS: 97.6, 67, 20, 146/77, 97% on room air GENERAL: laying in bed, not in distress EYES: Pupils equal. Conjunctiva normal. HEENT: External appearance of nose and ears normal, oral cavity grossly normal. NECK: JVD unable to assess; masses not palpable. HEART: Distal heart sounds; some edema. LUNGS: Respiratory rate normal; distant breath sounds. ABDOMEN: Soft, nontender, liver spleen not palpable, no masses palpable. Umbilical hernia PSYCH: Alert and oriented x3; mood and affect normal. LYMPHATICS: lower extremity lymphedema MUSCULAR skeletal: Less range of motion around the left hip compared to the right. lower extremity with venous is insufficiency and lymphedema Left lower extremity: A large boggy cyst of the left heel, absent first toe, some tenderness of the left second toe.; Left leg posteriorly wound INVESTIGATIONS, reviewed in the clinical context: MRI-suggestive of osteomyelitis of the left foot second toe ESR 61 CRP 40.1 Previous testing White count 6.6 hemoglobin 9.6 creatinine 0.9 from January 2019:Computed tomography scan of the abdomen-multilevel DJD, some mild spinal canal stenosis and severe bilateral neuroforaminal stenosis in both sides at L1-L2 and L5-S1 and moderate to severe on the right at L3-L4. X-ray of foot distal osseous erosion of the second distal phalanx on the left foot, diffuse osseous demineralization advanced arthropathy of the hindfoot of the talar dome flattening. Assessment: -left second toe osteomyelitis, acute has per MRI. Will need amputation likely. -Acute on chroniclow back pain, likely from spinal stenosis/herniated disc with radiculopathy and down and affect. This is most likely from L1-L2 and L3-L4 nerve distribution. -Pyoderma gangrenosum -Hyperlipidemia -Essential hypertension -Primary osteoarthritis -Hypothyroid -Chronic medical debility uses a vision -Idiopathic peripheral neuropathy -Chronic venous stasis -Bilateral lower extremity lymphedema -Chronic urinary stress incontinence -Chronic umbilical hernia -Left leg posteriorly, decubitus ulcer, POA Plan: Care was discussed with Dr. Cobos from vascular. Any decision about amputation of the left second toe to be determined by Dr. Morris when he sees the patient the office. Patient can hopefully be discharged tomorrow
[2019-04-15] MEDS ORDERED: PREGABALIN 100 MG CAP PO STA (14:47)
[2019-04-15 15:08] VITALS: BP 144/70; PULSE 83; RESP 16; TEMP 97.8
--- NOTE | 2019-04-15 23:01 | P.PN ---
Subjective Progress Note Date: 04/15/19 This is a 63 pleasant female who is known to the wound care center being seen on 6 for ulcerations to the left lower extremity. Patient states about 4 days ago she had noticed that the ulceration to her second digit of her left foot seemed to be worse with redness radiating to mid foot. Patient states that she was having sharp pain to her heel and was instructed by her home care nurse to come to the emergency room. X-ray was performed and found to have osteomyelitis to the second digit of the left foot. Patient has had previous right great toe amputation related to nonhealing ulcerations and osteomyelitis in the past. She is being seen by Dr. Danielson in the wound care clinic. Left plantar calcaneus wound pressure related measures approximately 2.8 x 2.8 x 0.2 cm with fat layer exposure, there is no tunneling or undermining, does have serosanguineous drainage, the wound that shows granulation with minimal adherent Slough. Left posterior lower leg pressure related ulceration with fatty layer exposure measuring approximately 8.6 x 2.7 x 0.2 cm no tunneling or undermining noted. Small amount of serous drainage. The wound has necrotic tissue within the wound that included adherent Slough and exudate. There is minimal granulation noted. Ulceration to second digit of left foot distal aspect pressure related stage III. Measuring 0.5 x 0.9 x 0.4 purulent drainage noted, induration and erythema around digit. 04/14/2019 Patient is feeling better looking forward to transfer. She does not have troubles such as fevers or chills at this time. Evaluation by vascular surgery is in process. 04/15/2019 better no new complaints ,looks forward to discharge to home. ant ibiotics arranged. Objective - Vital Signs Vital signs: Vital Signs Temp 97.8 F 04/15/19 14:10 Pulse 83 04/15/19 14:10 Resp 16 04/15/19 15:44 BP 144/70 04/15/19 14:10 Pulse Ox 96 04/15/19 14:10 Intake & Output 04/15/19 04/15/19 04/16/19 06:59 18:59 06:59 Intake Total 500 540 Balance 500 540 Intake: Oral 500 540 Other: Voiding Method Bedpan Bedside Commode # Voids 1 2 # Bowel Movements 1 - Exam pleasant superobese woman HEENT: Anicteric conjunctiva are pink and moist nasal mucosa grossly intact without significant lesions, there is no thrush. Neck: The neck is supple without significant lymphadenopathy or thyromegaly. Lungs: symmetrical air entry basilar crackles no bronchial sounds Heart: irregular without any murmur Abdomen: obese,Positive bowel sounds soft and nontender without palpable masses or organomegaly. There was no guarding or rebound. Extremities: The upper extremities have excellent pulses they are symmetric, no significant petechiae or telangiectasia. No splinter hemorrhages were noted. evidence of the chronic changes from her underlying inflammatory skin disorder but has new changes to that left foot second toe persist. Drainage is improved since receiving antibiotic therapy. Neuro: Awake alert oriented to person place and time. There are no acute new gross focal sensory motor deficits. - Labs CBC & Chem 7: 04/14/19 07:40 04/15/19 05:42 Labs: Microbiology - Last 24 Hours (Table) 04/12/19 16:15 Blood Culture - Preliminary Blood No Growth after 72 hours Laboratory Results WBC 5.2 k/uL (3.8-10.6) 04/14/19 07:40 RBC 2.92 m/uL (3.80-5.40) L 04/14/19 07:40 Hgb 8.4 gm/dL (11.4-16.0) L 04/14/19 07:40 Hct 26.8 % (34.0-46.0) L 04/14/19 07:40 MCV 91.6 fL (80.0-100.0) 04/14/19 07:40 MCH 28.8 pg (25.0-35.0) 04/14/19 07:40 MCHC 31.5 g/dL (31.0-37.0) 04/14/19 07:40 RDW 15.5 % (11.5-15.5) 04/14/19 07:40 Plt Count 136 k/uL (150-450) L 04/14/19 07:40 Neutrophils % 79 % 04/12/19 15:05 Lymphocytes % 8 % 04/12/19 15:05 Monocytes % 8 % 04/12/19 15:05 Eosinophils % 2 % 04/12/19 15:05 Basophils % 1 % 04/12/19 15:05 Neutrophils # 5.2 k/uL (1.3-7.7) 04/12/19 15:05 Lymphocytes # 0.5 k/uL (1.0-4.8) L 04/12/19 15:05 Monocytes # 0.5 k/uL (0-1.0) 04/12/19 15:05 Eosinophils # 0.2 k/uL (0-0.7) 04/12/19 15:05 Basophils # 0.1 k/uL (0-0.2) 04/12/19 15:05 Hypochromasia Slight 04/14/19 07:40 ESR 61 mm/hr (0-20) H 04/12/19 16:15 Sodium 143 mmol/L (137-145) 04/14/19 07:40 Potassium 4.1 mmol/L (3.5-5.1) 04/14/19 07:40 Chloride 111 mmol/L (98-107) H 04/14/19 07:40 Carbon Dioxide 27 mmol/L (22-30) 04/14/19 07:40 Anion Gap 5 mmol/L 04/14/19 07:40 BUN 22 mg/dL (7-17) H 04/14/19 07:40 Creatinine 0.84 mg/dL (0.52-1.04) 04/15/19 05:42 Est GFR (CKD-EPI)AfAm 85 (>60 ml/min/1.73 sqM) 04/15/19 05:42 Est GFR (CKD-EPI)NonAf 74 (>60 ml/min/1.73 sqM) 04/15/19 05:42 Glucose 101 mg/dL (74-99) H 04/14/19 07:40 Plasma Lactic Acid Lm 0.8 mmol/L (0.7-2.0) 04/12/19 15:05 Calcium 9.1 mg/dL (8.4-10.2) 04/14/19 07:40 Total Bilirubin 0.5 mg/dL (0.2-1.3) 04/12/19 15:05 AST 25 U/L (14-36) 04/12/19 15:05 ALT 12 U/L (4-34) 04/12/19 15:05 Alkaline Phosphatase 144 U/L (38-126) H 04/12/19 15:05 C-Reactive Protein 40.1 mg/L (<10.0) H 04/12/19 15:05 Total Protein 6.7 g/dL (6.3-8.2) 04/12/19 15:05 Albumin 3.7 g/dL (3.5-5.0) 04/12/19 15:05 Microbiology 04/12/19 16:15 Blood Blood Culture - Preliminary No Growth after 72 hours Assessment and Plan (1) Pyoderma gangrenosum Status: Acute Code(s): L88 - PYODERMA GANGRENOSUM SNOMED Code(s): 41815200 (2) Acute osteomyelitis of toe of left foot Narrative/Plan: 63-year-old woman with multiple medical troubles does have the chronic inflammatory disease to her legs this found the wound center but is developed acute changed to the right foot second toe which is consistent with underlying osteomyelitis and wound infection. As a history of MRSA and Pseudomonas. She's been seen by vascular surgery and the plan will be for outpatient intravenous antibiotic therapy with Zosyn for coverage of the Pseudomonas as well as oral doxycycline for the treatment of the MRSA. She'll follow-up with the wound healing Center here at she'll see her vascular surgeon and then plans for surgical debridement as needed in the future. Midline catheter is been requested and prescriptions are given to case management for discharge planning. 04/15/2019 doing well and ready for discharge midline catheter is placed antibiotics are to be at her home to be starting her infusions in the morning with home care nurse. Doxycycline was sent to her pharmacy and she knows to pick that up on her way to her home. She'll follow in the wound healing center after discharge. Status: Acute Code(s): M86.172 - OTHER ACUTE OSTEOMYELITIS, LEFT ANKLE AND FOOT SNOMED Code(s): 142333995
--- NOTE | 2019-04-16 00:16 | P.DS ---
Providers Date of admission: 04/12/19 15:49 Expected date of discharge: 04/15/19 Attending physician: Tal Magallanes Consults: 04/13/19 08:26 Consult Physician Routine Consulting Provider: Chaz Suazo Consult Reason/Comments: left second toe ulcer + osteo Do you want consulting provider notified?: Yes 04/13/19 23:57 Consult Physician Routine Consulting Provider: Estrada Jeronimo Consult Reason/Comments: pos 2nd toe amputation Do you want consulting provider notified?: Yes Primary care physician: [facility] Course: Chief Complaint: Left heel pain Interval history: This is a pleasant 63-year-old patientof Dr. Mcfarlane. Chronic stable medical conditions include idiopathic peripheral neuropathy, morbid obesity, primary osteoarthritis, essential hypertension, hypothyroid, , urinary stress incontinence, chronic venous stasis, hyperlipidemia, bilateral lower extremity lymphedema, pyoderma gangrenosum. Had a baseline patient uses a wheelchair to get about. Patient follows up wound care center and sees Dr. Morris. Patient started to have severe pain in the left heel as if somebody's poking knife, started about 4 days ago. No fever no chills. Patient has no left big toe. Left foot second toe is also giving pain discomfort. X-rays in the ER. Did reveal involvement of the bone patient admitted for the same patient is also having low back pain for last 2 months. MRI did confirm osteomyelitis of the left foot second toe. Patient seen by Dr. Cobos. From vascular surgery. Patient is to follow with Dr. Morris in the wound Center. In the meantime patient will get IV antibiotics. Midline was placed. Discussed with the patient. Dr. Suazo.. Patient quickly home. Home antibiotics. Home care. Consultation: Dr. Suazo from ID Dr. Cobos from vascular surgery Physical examination: VITAL SIGNS: 97.8, 83, 16, 144/70, 96% room air GENERAL: laying in bed, not in distress EYES: Pupils equal. Conjunctiva normal. HEENT: External appearance of nose and ears normal, oral cavity grossly normal. NECK: JVD unable to assess; masses not palpable. HEART: Distal heart sounds; some edema. LUNGS: Respiratory rate normal; distant breath sounds. ABDOMEN: Soft, nontender, liver spleen not palpable, no masses palpable. Umbilical hernia PSYCH: Alert and oriented x3; mood and affect normal. LYMPHATICS: lower extremity lymphedema MUSCULAR skeletal: Less range of motion around the left hip compared to the right. lower extremity with venous is insufficiency and lymphedema Left lower extremity: A large boggy cyst of the left heel, absent first toe, some tenderness of the left second toe.; Left leg posteriorly wound INVESTIGATIONS, reviewed in the clinical context: MRI-suggestive of osteomyelitis of the left foot second toe ESR 61 CRP 40.1 Previous testing White count 6.6 hemoglobin 9.6 creatinine 0.9 from January 2019:Computed tomography scan of the abdomen-multilevel DJD, some mild spinal canal stenosis and severe bilateral neuroforaminal stenosis in both sides at L1-L2 and L5-S1 and moderate to severe on the right at L3-L4. X-ray of foot distal osseous erosion of the second distal phalanx on the left foot, diffuse osseous demineralization advanced arthropathy of the hindfoot of the talar dome flattening. Assessment: -left second toe osteomyelitis, acute has per MRI. Will need amputation likely. -Acute on chroniclow back pain, likely from spinal stenosis/herniated disc with radiculopathy and down and affect. This is most likely from L1-L2 and L3-L4 nerve distribution. -Pyoderma gangrenosum -Hyperlipidemia -Essential hypertension -Primary osteoarthritis -Hypothyroid -Chronic medical debility uses a vision -Idiopathic peripheral neuropathy -Chronic venous stasis -Bilateral lower extremity lymphedema -Chronic urinary stress incontinence -Chronic umbilical hernia -Left leg posteriorly, decubitus ulcer, POA Disposition: Home Patient Condition at Discharge: Stable Plan - Discharge Summary Discharge Rx Participant: No New Discharge Prescriptions: New Piperacillin-Tazobactam [Zosyn] 3.375 gm IVPB Q6H #84 bag Naproxen [Naprosyn] 250 mg PO TID #14 tab predniSONE 0 mg PO DIRECTED #10 tab Doxycycline [Vibramycin] 100 mg PO BID #40 cap Continue Levothyroxine Sodium [Synthroid] 100 mcg PO DAILY Atorvastatin Calcium [Lipitor] 10 mg PO HS Pregabalin [Lyrica] 100 mg PO TID HYDROcodone/APAP 7.5-325MG [[place]ley 7.5-325] 1 tab PO Q6H PRN PRN Reason: Pain amLODIPine [Norvasc] 10 mg PO DAILY Lisinopril [Zestril] 20 mg PO BID Biotin 5 mg PO DAILY Discontinued Ciprofloxacin HCl [Cipro] 500 mg PO BID Discharge Medication List Levothyroxine Sodium [Synthroid] 100 mcg PO DAILY 08/29/13 [History] Atorvastatin Calcium [Lipitor] 10 mg PO HS 10/06/18 [History] Pregabalin [Lyrica] 100 mg PO TID 02/03/19 [History] HYDROcodone/APAP 7.5-325MG [R[place]ley 7.5-325] 1 tab PO Q6H PRN 03/18/19 [History] Lisinopril [Zestril] 20 mg PO BID 03/18/19 [History] amLODIPine [Norvasc] 10 mg PO DAILY 03/18/19 [History] Biotin 5 mg PO DAILY 04/12/19 [History] Piperacillin-Tazobactam [Zosyn] 3.375 gm IVPB Q6H #84 bag 04/14/19 [Rx] Doxycycline [Vibramycin] 100 mg PO BID #40 cap 04/15/19 [Rx] Naproxen [Naprosyn] 250 mg PO TID #14 tab 04/15/19 [Rx] predniSONE 0 mg PO DIRECTED #10 tab 04/15/19 [Rx] Follow up Appointment(s)/Referral(s): Adonis Mcfarlane DO [Primary Care Provider] - 04/26/19 4:40 pm (will see [employer]ER) [facility], [NON-STAFF] - 1 Week [facility], [REFERRING] - 1 Week Luis E Danielson MD [STAFF PHYSICIAN] - 2 Weeks (Please call for appointment) Ambulatory/Diagnostic Orders: Basic Metabolic Panel [LAB.AMB] Location: None Selected Complete Blood Count w/diff [LAB.AMB] Location: None Selected Miscellaneous Lab Order [LAB.AMB] Location: None Selected Patient Instructions/Handouts: Osteomyelitis (DC) Activity/Diet/Wound Care/Special Instructions: Regular diet, low fat Activity as tolerated, nonweight bearing to left foot. Elevate at rest. Midline placed for antibiotic use at home. Discharge Disposition: HOME WITH HOME HEALTH SERVICES
== END 2019-04-15 17:58 | disposition home health service (06) | DRG 539 ==
LOC: EC 13:58 → 6NMEDSUR 15:49
PROVIDERS: ADMIT Hospitalist; ATTEND Hospitalist
PROC: 05HC33Z Insertion of Infusion Device into Left Basilic Vein, Percutaneous Approach (ICD-10-PCS; principal; 2019-04-12)
DX: M86.172 Other acute osteomyelitis, left ankle and foot (principal); L89.893 Pressure ulcer of other site, stage 3; L88 Pyoderma gangrenosum; E03.9 Hypothyroidism, unspecified; L89.622 Pressure ulcer of left heel, stage 2; L89.899 Pressure ulcer of other site, unspecified stage; E66.01 Morbid (severe) obesity due to excess calories; E78.5 Hyperlipidemia, unspecified; G60.9 Hereditary and idiopathic neuropathy, unspecified; G89.29 Other chronic pain; I10 Essential (primary) hypertension; I87.2 Venous insufficiency (chronic) (peripheral); I87.8 Other specified disorders of veins; I89.0 Lymphedema, not elsewhere classified; K42.9 Umbilical hernia without obstruction or gangrene; M19.079 Primary osteoarthritis, unspecified ankle and foot; M81.0 Age-related osteoporosis without current pathological fracture; N39.3 Stress incontinence (female) (male); D64.9 Anemia, unspecified; M54.5 Low back pain; M48.061 Spinal stenosis, lumbar region without neurogenic claudication; M54.16 Radiculopathy, lumbar region; Z79.890 Hormone replacement therapy; Z79.899 Other long term (current) drug therapy; Z88.2 Allergy status to sulfonamides; Z86.14 Personal history of Methicillin resistant Staphylococcus aureus infection; Z87.440 Personal history of urinary (tract) infections; Z87.891 Personal history of nicotine dependence; Z89.411 Acquired absence of right great toe; Z90.49 Acquired absence of other specified parts of digestive tract; Z98.51 Tubal ligation status; Z80.1 Family history of malignant neoplasm of trachea, bronchus and lung; Z82.49 Family history of ischemic heart disease and other diseases of the circulatory system; Z82.3 Family history of stroke; Z84.2 Family history of other diseases of the genitourinary system
CPT/HCPCS: 36410; 36415; 76937; 80048; 80053; 82565; 83605; 85025; 85027; 85652; 86140; 87040; 96361; 96365; 96366; 96368; 96375; 99284

== ENCOUNTER → 2019-04-22 | Day surgery (SDC) | payer MEDICARE, OTHER ==
[~2019-04-22] MED LIST: LIDOCAINE 1% INJ 10MG/ML (20 ML MDV) SQ ONE
[2019-04-22 13:42] VITALS: BP 114/52; PULSE 68; RESP 18; TEMP 98.1
--- NOTE | 2019-04-22 14:51 | IR ---
EXAMINATION TYPE: IR cvc insert >=5 years DATE OF EXAM: 04/22/2019 COMPARISON: NONE CLINICAL HISTORY: Infection Needs long-term intravenous access for antibiotics. PROCEDURE: After informed consent, the skin overlying the left basilic vein was localized with ultrasound and no gato to be compressible and patent. An ultrasound image was obtained and submitted on the patient's c bills. The overlying skin was prepped and draped and Lidocaine was used for local anesthesia. A skin paula was made with a scalpel. Access was gained to the vein under ultrasound guidance with a 21 gau ge needle and a 0.018 inch wire was advanced. Access site was dilated with Peel-Away sheath and cath eter tailored to the appropriate length and advanced such that the distal tip is at the cavoatrial ju nction. Spot image was obtained verifying placement. Catheter was fixed to the skin and a sterile d ressing was placed following hemostasis. Catheter was aspirated and flushed with saline. Patient wa s discharged in stable condition without complication.Maximal barrier technique is utilized. Ultraso und image is documented on the chart. Ultrasound used with sterile technique. Fluoro time and fluoroscopic images submitted to document procedure: 40 intraoperative images, 0.2 mi nutes fluoroscopy time IMPRESSION: STATUS POST ULTRASOUND AND FLUOROSCOPIC GUIDED PICC LINE PLACEMENT, READY FOR USE. THIS PROCEDURE WAS PERFORMED BY THE UNDERSIGNED.
== END ==
LOC: CATHCVL 13:14
PROVIDERS: ATTEND Radiology Diagnostic Radiology
DX: Z45.2 Encounter for adjustment and management of vascular access device (principal); L88 Pyoderma gangrenosum; M86.172 Other acute osteomyelitis, left ankle and foot; I87.2 Venous insufficiency (chronic) (peripheral); G60.9 Hereditary and idiopathic neuropathy, unspecified; E66.01 Morbid (severe) obesity due to excess calories; M19.91 Primary osteoarthritis, unspecified site; I10 Essential (primary) hypertension; E78.5 Hyperlipidemia, unspecified; I89.0 Lymphedema, not elsewhere classified; G89.29 Other chronic pain; M48.061 Spinal stenosis, lumbar region without neurogenic claudication; M51.16 Intervertebral disc disorders with radiculopathy, lumbar region; R53.81 Other malaise; N39.3 Stress incontinence (female) (male); K42.9 Umbilical hernia without obstruction or gangrene; D64.9 Anemia, unspecified; E03.9 Hypothyroidism, unspecified; Z99.3 Dependence on wheelchair; Z87.891 Personal history of nicotine dependence; Z86.14 Personal history of Methicillin resistant Staphylococcus aureus infection; Z98.890 Other specified postprocedural states; Z82.49 Family history of ischemic heart disease and other diseases of the circulatory system; Z80.42 Family history of malignant neoplasm of prostate; Z79.890 Hormone replacement therapy; Z79.2 Long term (current) use of antibiotics; Z79.899 Other long term (current) drug therapy; Z88.2 Allergy status to sulfonamides; Z68.42 Body mass index [BMI] 45.0-49.9, adult
CPT/HCPCS: 36573; C1751; C1769; J2001

== ENCOUNTER 2019-05-05 01:27 | Inpatient (IN) | payer MEDICARE, OTHER ==
[2019-05-05] MEDS: SODIUM CHLORIDE 0.9% 1,000 ML IV SCH ×3 (02:08→18:06)
[2019-05-05 02:24] LABS: Basophils % (A) 0 %; Eosinophils # (A) 0.1 k/uL (0-0.7); Eosinophils % (A) 1 %; HCT 29.4 % (34.0-46.0); HGB 9.6 gm/dL (11.4-16.0); Hypochromasia Slight; Lymphocytes # (A) 0.7 k/uL (1.0-4.8); Lymphocytes % (A) 9 %; MCH 29.8 pg (25.0-35.0); MCHC 32.5 g/dL (31.0-37.0); MCV 91.5 fL (80.0-100.0); Monocytes # (A) 0.4 k/uL (0-1.0); Monocytes % (A) 5 %; Neutrophils % (A) 82 %; Platelet Count 135 k/uL (150-450); RBC 3.21 m/uL (3.80-5.40); RDW 15.6 % (11.5-15.5); WBC 7.4 k/uL (3.8-10.6)
[2019-05-05 02:48] LABS: Partial Thromboplastin Time 27.6 sec (22.0-30.0); Prothrombin Time 10.6 sec (9.0-12.0)
[2019-05-05 02:53] LABS: Albumin 3.7 g/dL (3.5-5.0); Calcium 9.9 mg/dL (8.4-10.2); Magnesium 1.8 mg/dL (1.6-2.3); Potassium 3.9 mmol/L (3.5-5.1); Total Bilirubin 0.7 mg/dL (0.2-1.3); Total Protein 6.5 g/dL (6.3-8.2)
--- NOTE | 2019-05-05 03:51 | ED ---
Weakness HPI - General Chief complaint: Weakness Stated complaint: Weakness Time Seen by Provider: 05/05/19 01:33 Source: patient, EMS Mode of arrival: EMS Limitations: no limitations - History of Present Illness Initial comments: Darling is a morbidly obese 63-year-old female with chronic nonhealing wounds on the left lower extremity. Patient has PICC line in place and receives IV vancomycin. Patient presents the ER today for evaluation of worsening fatigue and weakness in that leg. Patient states that she had been doing well however today she feels like the weight leg is too weak to move. She's been unable to assist with transfer from chair. She reports that she just feels all over a week, chills and fatigue. - Related Data Home Medications Medication Instructions Recorded Confirmed Levothyroxine Sodium [Synthroid] 100 mcg PO DAILY 08/29/13 05/05/19 Atorvastatin Calcium [Lipitor] 10 mg PO HS 10/06/18 05/05/19 Pregabalin [Lyrica] 100 mg PO TID 02/03/19 05/05/19 HYDROcodone/APAP 7.5-325MG [[place] 1 tab PO Q6H PRN 03/18/19 05/05/19 7.5-325] Lisinopril [Zestril] 20 mg PO BID 03/18/19 05/05/19 amLODIPine [Norvasc] 10 mg PO DAILY 03/18/19 05/05/19 Previous Rx's Medication Instructions Recorded Piperacillin-Tazobactam [Zosyn] 3.375 gm IVPB Q6H #84 bag 04/14/19 Allergies Allergy/AdvReac Type Severity Reaction Status Date / Time Sulfa (Sulfonamide Allergy Rash/Hives Verified 05/05/19 01:37 Antibiotics) Review of Systems ROS Statement: Those systems with pertinent positive or pertinent negative responses have been documented in the HPI. ROS Other: All systems not noted in ROS Statement are negative. Past Medical History Past Medical History: Hyperlipidemia, Hypertension, Osteoarthritis (OA), Skin Disorder, Thyroid Disorder Additional Past Medical History / Comment(s): Nonambulatory/pivots to wheelchair normally, low back pain, neuropathy bilateral feet, chronic venous stasis, current L heel/L posterior yost/left second toe wounds, bilateral leg cellulitis, past L foot ulcer, lymphedema bilateral legs, DJD, past R ankle fracture x3, UTIs, stress incontinence, chronic anemia, umbilical hernia, hypothyroid. History of Any Multi-Drug Resistant Organisms: MRSA, Other MDRO Date of last positivie culture/infection: 12/14/18 MDRO Source:: Left Heel & Left Foot Past Surgical History: Section, Cholecystectomy, Orthopedic Surgery, Tubal Ligation Additional Past Surgical History / Comment(s): L leg I&D, bilateral knee arthroscopies, L great toe amp d/t nonhealing wound, PICCS, D&Cs Past Anesthesia/Blood Transfusion Reactions: Previous Problems w/ Anesthesia Additional Past Anesthesia/Blood Transfusion Reaction / Comment(s): slow to come out of it/muscle weakness Past Psychological History: No Psychological Hx Reported Smoking Status: Former smoker Past Alcohol Use History: None Reported Past Drug Use History: None Reported - Past Family History Father Family Medical History: Cancer, Coronary Artery Disease (CAD), Myocardial Infarction ([place]), Prostate Disorder Additional Family Medical History / Comment(s): Prostate CA Mother Family Medical History: Cancer, CVA/TIA, Hyperlipidemia Additional Family Medical History / Comment(s): Lung CA-left lobe removed General Exam - General Exam Comments Initial Comments: Physical Exam GENERAL: Chronically ill appearing HENT: Normocephalic, Atraumatic. EYES: PERRL, EOMI PULMONARY: Unlabored respirations. CARDIOVASCULAR: RRR Venous stasis bilateral lower extremities ABDOMEN: Soft and nontender with normal bowel sounds. SKIN: Chronic venous stasis Well healing wounds to left second toe Poorly healing wound to left ankle/heel and posterior yost - no malodorous discharge : Deferred NEUROLOGIC: Patient is alert and oriented x3. Moving all extremities spontaneously MUSCULOSKELETAL: Decreased ROM of bilateral lower extremity secondary to body habitus PSYCHIATRIC: Normal psychiatric evaluation. Limitations: no limitations Course Vital Signs 05/05/19 05/05/19 05/05/19 01:29 03:20 03:30 Temperature 97.9 F Pulse Rate 86 85 82 Respiratory 18 18 17 Rate Blood Pressure 135/64 121/76 121/76 O2 Sat by Pulse 100 98 99 Oximetry 05/05/19 05:00 Temperature Pulse Rate 80 Respiratory 18 Rate Blood Pressure 119/67 O2 Sat by Pulse 98 Oximetry Medical Decision Making - Medical Decision Making She was seen and evaluated, history was obtained from patient and medical record 63-year-old debilitated female with nonhealing wounds of the foot and ankle presenting to the ER with generalized worsening weakness. Now unable to transfer from chair to bed. Feels chills but no fever. Labs reviewed patient does have a UTI labs otherwise are baseline. Given the patient's debility and decline in function we'll plan to patient patient in observation for evaluation by physical therapy and infectious disease. - Lab Data Result diagrams: 05/05/19 02:00 05/05/19 02:00 Lab Results 05/05/19 05/05/19 05/05/19 Range/Units 02:00 02:00 02:00 WBC 7.4 (3.8-10.6) k/uL RBC 3.21 L (3.80-5.40) m/uL Hgb 9.6 L (11.4-16.0) gm/dL Hct 29.4 L (34.0-46.0) % MCV 91.5 (80.0-100.0) fL MCH 29.8 (25.0-35.0) pg MCHC 32.5 (31.0-37.0) g/dL RDW 15.6 H (11.5-15.5) % Plt Count 135 L (150-450) k/uL Neutrophils % 82 % Lymphocytes % 9 % Monocytes % 5 % Eosinophils % 1 % Basophils % 0 % Neutrophils # 6.0 (1.3-7.7) k/uL Lymphocytes # 0.7 L (1.0-4.8) k/uL Monocytes # 0.4 (0-1.0) k/uL Eosinophils # 0.1 (0-0.7) k/uL Basophils # 0.0 (0-0.2) k/uL Hypochromasia Slight PT (9.0-12.0) sec INR (<1.2) APTT (22.0-30.0) sec Sodium 143 (137-145) mmol/L Potassium 3.9 (3.5-5.1) mmol/L Chloride 109 H (98-107) mmol/L Carbon Dioxide 25 (22-30) mmol/L Anion Gap 9 mmol/L BUN 19 H (7-17) mg/dL Creatinine 0.82 (0.52-1.04) mg/dL Est GFR (CKD-EPI)AfAm 88 (>60 ml/min/1.73 sqM) Est GFR (CKD-EPI)NonAf 76 (>60 ml/min/1.73 sqM) Glucose 86 (74-99) mg/dL Plasma Lactic Acid Lm 0.9 (0.7-2.0) mmol/L Calcium 9.9 (8.4-10.2) mg/dL Magnesium 1.8 (1.6-2.3) mg/dL Total Bilirubin 0.7 (0.2-1.3) mg/dL AST 32 (14-36) U/L ALT 15 (4-34) U/L Alkaline Phosphatase 145 H (38-126) U/L Total Protein 6.5 (6.3-8.2) g/dL Albumin 3.7 (3.5-5.0) g/dL Urine Color Urine Appearance (Clear) Urine pH (5.0-8.0) Ur Specific [place] (1.001-1.035) Urine Protein (Negative) Urine Glucose (UA) (Negative) Urine Ketones (Negative) Urine Blood (Negative) Urine Nitrite (Negative) Urine Bilirubin (Negative) Urine Urobilinogen (<2.0) mg/dL Ur Leukocyte Esterase (Negative) Urine RBC (0-5) /hpf Urine WBC (0-5) /hpf Ur Squamous Epith Cells (0-4) /hpf Urine Bacteria (None) /hpf Hyaline Casts (0-2) /lpf Urine Mucus (None) /hpf 05/05/19 05/05/19 Range/Units 02:00 04:11 WBC (3.8-10.6) k/uL RBC (3.80-5.40) m/uL Hgb (11.4-16.0) gm/dL Hct (34.0-46.0) % MCV (80.0-100.0) fL MCH (25.0-35.0) pg MCHC (31.0-37.0) g/dL RDW (11.5-15.5) % Plt Count (150-450) k/uL Neutrophils % % Lymphocytes % % Monocytes % % Eosinophils % % Basophils % % Neutrophils # (1.3-7.7) k/uL Lymphocytes # (1.0-4.8) k/uL Monocytes # (0-1.0) k/uL Eosinophils # (0-0.7) k/uL Basophils # (0-0.2) k/uL Hypochromasia PT 10.6 (9.0-12.0) sec INR 1.0 (<1.2) APTT 27.6 (22.0-30.0) sec Sodium (137-145) mmol/L Potassium (3.5-5.1) mmol/L Chloride (98-107) mmol/L Carbon Dioxide (22-30) mmol/L Anion Gap mmol/L BUN (7-17) mg/dL Creatinine (0.52-1.04) mg/dL Est GFR (CKD-EPI)AfAm (>60 ml/min/1.73 sqM) Est GFR (CKD-EPI)NonAf (>60 ml/min/1.73 sqM) Glucose (74-99) mg/dL Plasma Lactic Acid Lm (0.7-2.0) mmol/L Calcium (8.4-10.2) mg/dL Magnesium (1.6-2.3) mg/dL Total Bilirubin (0.2-1.3) mg/dL AST (14-36) U/L ALT (4-34) U/L Alkaline Phosphatase (38-126) U/L Total Protein (6.3-8.2) g/dL Albumin (3.5-5.0) g/dL Urine Color Yellow Urine Appearance Cloudy H (Clear) Urine pH 5.5 (5.0-8.0) Ur Specific [place] 1.022 (1.001-1.035) Urine Protein Trace H (Negative) Urine Glucose (UA) Negative (Negative) Urine Ketones 1+ H (Negative) Urine Blood Negative (Negative) Urine Nitrite Negative (Negative) Urine Bilirubin Negative (Negative) Urine Urobilinogen <2.0 (<2.0) mg/dL Ur Leukocyte Esterase Trace H (Negative) Urine RBC 24 H (0-5) /hpf Urine WBC 8 H (0-5) /hpf Ur Squamous Epith Cells 3 (0-4) /hpf Urine Bacteria Rare H (None) /hpf Hyaline Casts 17 H (0-2) /lpf Urine Mucus Many H (None) /hpf Disposition Clinical Impression: UTI (urinary tract infection), Venous stasis ulcer of left lower leg with edema of left lower leg, Unable to ambulate, Morbid obesity, Pressure ulcer of left heel, stage 3, Debility Disposition: ADMITTED IP TO THIS HOSP Condition: Serious
[2019-05-05 04:46] LABS: Appearance,Urine Cloudy (Clear); Bacteria,Urine Rare /hpf; Bilirubin,Urine Negative (Negative); Blood,Urine Negative (Negative); Color,Urine Yellow; Glucose,Urine (UA) Negative (Negative); Hyaline Casts,Urine 17 /lpf (0-2); Ketones,Urine 1+ (Negative); Leukocyte Esterase,Urine Trace (Negative); Mucus,Urine Many /hpf; Nitrite,Urine Negative (Negative); PH, Urine 5.5 (5.0-8.0); Protein,Urine Trace (Negative); RBC,Urine 24 /hpf (0-5); Specific Gravity,Urine 1.022 (1.001-1.035); Squamous Epithelial Cell,Urine 3 /hpf (0-4); Urobilinogen,Urine <2.0 mg/dL (<2.0); WBC,Urine 8 /hpf (0-5)
[2019-05-05] MEDS ORDERED: NALOXONE 0.4 MG/ML 1 ML VIAL IV PRN (04:51)
[2019-05-05] MEDS ORDERED: HEPARIN SODIUM,PORCINE 5,000 UNIT/ML 1 ML VIAL SQ SCH (08:00)
[2019-05-05 08:12] LABS: Glucose,Whole Blood 80 mg/dL (75-99)
[2019-05-05] MEDS ORDERED: PIPERACILLIN-TAZOBACTAM 3.375 GM VIAL IVPB SCH (10:00)
[2019-05-05] MEDS: PIPERACILLIN-TAZOBACTAM 3.375 GM in SODIUM CHLORIDE 0.9% 100 ML IVPB SCH ×2 (12:07→18:20)
[2019-05-05] MEDS: amLODIPine 5 MG TAB PO SCH (12:07)
[2019-05-05] MEDS: LISINOPRIL 20 MG TAB PO SCH ×2 (12:07→21:25)
--- NOTE | 2019-05-05 12:59 | P.HPIM ---
History of Present Illness H&P Date: 05/05/19 Chief Complaint: Heavy left leg History of presenting complaint: This is a pleasant 63-year-old patient of Dr. Mcfarlane. Chronic stable medical conditions include idiopathic peripheral neuropathy, morbid obesity, primary osteoarthritis, essential hypertension, hypothyroid, , urinary stress incontinence, chronic venous stasis, hyperlipidemia, bilateral lower extremity lymphedema, pyoderma gangrenosum. Had a baseline patient uses a wheelchair to get about. Patient was here in the middle of March 2019 and . MRI did confirm osteomyelitis of the left foot second toe. Patient was discharged on IV Zosyn for 28 days. Patient has 3 more days left. Patient now presents with feeling weak tired decreased appetite. Her left leg feels rather weak but able to lift it up. She lives alone. No fever or chills. Patient due to see Dr. Morris from vascular surgery in the outpatient on May 09. Review of systems GEN.: Weak and tired EYES: None HEENT: None NECK: None RESPIRATORY: None CARDIOVASCULAR: None GASTROINTESTINAL: None GENITOURINARY: Incontinence MUSCULOSKELETAL: As above LYMPHATICS: Chronic lower extremity lymphedema HEMATOLOGICAL: None PSYCHIATRY: None NEUROLOGICAL: Uses a wheelchair Past medical history: Hyperlipidemia, hypertension, osteoarthritis, hypothyroid, uses wheelchair, peripheral neuropathy, chronic venous stasis, bilateral lower extremity lymphedema, urinary stress incontinence, lymph edema, umbilical hernia, hypothyroid. 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 Smoked for 20 years stopped in 1990. Alcohol rarely. Physical examination: VITAL SIGNS: 97.9, 86, 18, 135/64, 100%percent on room air GENERAL: BMI 47.6 Sitting up in a chair, comfortable EYES: Pupils equal. Conjunctiva normal. HEENT: External appearance of nose and ears normal, oral cavity grossly normal. NECK: JVD unable to assess; masses not palpable. HEART: Distal heart sounds; some edema. LUNGS: Respiratory rate normal; distant breath sounds. ABDOMEN: Soft, nontender, liver spleen not palpable, no masses palpable. Umbilical hernia PSYCH: Alert and oriented x3; mood and affect normal. LYMPHATICS: lower extremity lymphedema MUSCULAR skeletal: Less range of motion around the left hip compared to the right. lower extremity with venous is insufficiency and lymphedema Left lower extremity: absent first toe, some tenderness of the left second toe.; Left leg posteriorly wound INVESTIGATIONS, reviewed in the clinical context: White count 7.4 hemoglobin 9.6 platelets 135 potassium 3.9 creatinine 0.82 Assessment: -Patient overall has a very large body habitus. Including a BMI 47.6. Patient's lower extremities are very large including contribution from saumya ma. Patient is finding it difficult to lift the leg. Of course there is some fluid lymphedema component which is difficult to treat. -left second toe osteomyelitis, acute, requiring IV Zosyn Will need amputation likely. 3 more days of antibiotics left. -chroniclow back pain, likely from spinal stenosis/herniated disc with radiculopathy and down and affect. This is most likely from L1-L2 and L3-L4 nerve distribution. -Pyoderma gangrenosum -Hyperlipidemia -Essential hypertension -Primary osteoarthritis -Hypothyroid -Chronic medical debility uses a vision -Idiopathic peripheral neuropathy -Chronic venous stasis -Bilateral lower extremity lymphedema -Chronic urinary stress incontinence -Chronic umbilical hernia -Left leg posteriorly, decubitus ulcer, POA Plan: Patient be completed on 3 more days of IV Zosyn. We'll consult PTOT. Dr. Morris is out of town. We will use the Yaya wrap for the lower extremity. Check stool for C. diff. Care was discussed with the patient questions were answered. Past Medical History Past Medical History: Hyperlipidemia, Hypertension, Osteoarthritis (OA), Skin Disorder, Thyroid Disorder Additional Past Medical History / Comment(s): Nonambulatory/pivots to wheelchair normally, low back pain, neuropathy bilateral feet, chronic venous stasis, current L heel/L posterior yost/left second toe wounds, bilateral leg cellulitis, past L foot ulcer, lymphedema bilateral legs, DJD, past R ankle fracture x3, UTIs, stress incontinence, chronic anemia, umbilical hernia, hypothyroid. History of Any Multi-Drug Resistant Organisms: MRSA, Other MDRO Date of last positivie culture/infection: 12/14/18 MDRO Source:: Left Heel & Left Foot Past Surgical History: Section, Cholecystectomy, Orthopedic Surgery, Tubal Ligation Additional Past Surgical History / Comment(s): L leg I&D, bilateral knee arthroscopies, L great toe amp d/t nonhealing wound, PICCS, D&Cs Past Anesthesia/Blood Transfusion Reactions: Previous Problems w/ Anesthesia Additional Past Anesthesia/Blood Transfusion Reaction / Comment(s): slow to come out of it/muscle weakness Past Psychological History: No Psychological Hx Reported Smoking Status: Former smoker Past Alcohol Use History: None Reported Past Drug Use History: None Reported - Past Family History Father Family Medical History: Cancer, Coronary Artery Disease (CAD), Myocardial Infarction ([place]), Prostate Disorder Additional Family Medical History / Comment(s): Prostate CA Mother Family Medical History: Cancer, CVA/TIA, Hyperlipidemia Additional Family Medical History / Comment(s): Lung CA-left lobe removed Medications and Allergies Home Medications Medication Instructions Recorded Confirmed Type Levothyroxine Sodium [Synthroid] 100 mcg PO DAILY 08/29/13 05/05/19 History Atorvastatin Calcium [Lipitor] 10 mg PO HS 10/06/18 05/05/19 History Pregabalin [Lyrica] 100 mg PO TID 02/03/19 05/05/19 History HYDROcodone/APAP 7.5-325MG [[place] 1 tab PO Q6H PRN 03/18/19 05/05/19 History 7.5-325] Lisinopril [Zestril] 20 mg PO BID 03/18/19 05/05/19 History Piperacillin-Tazobactam [Zosyn] 3.375 gm IVPB Q6H #84 bag 04/14/19 05/05/19 Rx amLODIPine [Norvasc] 5 mg PO DAILY 05/05/19 05/05/19 History Allergies Allergy/AdvReac Type Severity Reaction Status Date / Time Sulfa (Sulfonamide Allergy Rash/Hives Verified 05/05/19 07:13 Antibiotics) Physical Exam Vitals: Vital Signs Temp Pulse Pulse Resp BP BP Pulse Ox 05/05/19 08:14 98.9 F 75 16 145/65 100 05/05/19 05:00 80 18 119/67 98 05/05/19 03:30 82 17 121/76 99 05/05/19 03:20 85 18 121/76 98 05/05/19 01:29 97.9 F 86 18 135/64 100 Intake and Output 05/04/19 05/05/19 05/05/19 22:59 06:59 14:59 Other: Weight 142 kg Results CBC & Chem 7: 05/05/19 02:00 05/05/19 02:00 Labs: Abnormal Lab Results - Last 24 Hours (Table) 05/05/19 05/05/19 05/05/19 Range/Units 02:00 02:00 04:11 RBC 3.21 L (3.80-5.40) m/uL Hgb 9.6 L (11.4-16.0) gm/dL Hct 29.4 L (34.0-46.0) % RDW 15.6 H (11.5-15.5) % Plt Count 135 L (150-450) k/uL Lymphocytes # 0.7 L (1.0-4.8) k/uL Chloride 109 H (98-107) mmol/L BUN 19 H (7-17) mg/dL Alkaline Phosphatase 145 H (38-126) U/L Urine Appearance Cloudy H (Clear) Urine Protein Trace H (Negative) Urine Ketones 1+ H (Negative) Ur Leukocyte Esterase Trace H (Negative) Urine RBC 24 H (0-5) /hpf Urine WBC 8 H (0-5) /hpf Urine Bacteria Rare H (None) /hpf Hyaline Casts 17 H (0-2) /lpf Urine Mucus Many H (None) /hpf
[2019-05-05] MEDS: LEVOTHYROXINE 100 MCG TAB PO SCH (15:39)
[2019-05-05] MEDS: PREGABALIN 100 MG CAP PO SCH ×3 (15:39→21:25)
[2019-05-05 17:08] LABS: Glucose,Whole Blood 80 mg/dL (75-99)
[2019-05-05] MEDS: HYDROcodone/APAP 7.5-325MG 1 EACH TAB PO PRN (17:34)
[2019-05-05] MEDS: ENOXAPARIN 40 MG/0.4 ML SYRINGE SQ SCH (18:19)
[2019-05-05 20:38] LABS: Glucose,Whole Blood 96 mg/dL (75-99)
[2019-05-05] MEDS: ATORVASTATIN 10 MG TAB PO SCH (21:25)
[2019-05-05] MEDS ORDERED: VANCOMYCIN IV PER PHARMACY 1 EACH MISC MISCELLANE PRN (22:21)
--- NOTE | 2019-05-05 22:40 | P.CONS ---
History of Present Illness - Reason for Consult Consult date: 05/05/19 left 2nd toe osteomyelitis/left heel wound Requesting physician: Tal Magallanes - Chief Complaint weakness and not feeling well x days - History of Present Illness Patient is a 63-year-old female who was recently admitted at [facility] from April 12 to the at that point patient did have a wound to her left second toe patient did have MRI of the left foot done on April 13, 2019 we did shows evidence of osteomyelitis of the left second toe patient did not have any local wound culture during that admission she previously did have cultures from the left heel in November 2018 there were positive for pseudomonas aeruginosa and MRSA patient subsequently got a PICC line and was advised Zosyn and oral doxycycline with the patient is currently taking at home for more than 2 weeks now patient is now presenting to the [facility] ER with chief complaints of generalized weakness no energy and she has been describing left leg seem to be too heavy for her patient did have difficulty getting up and around and transfer denies any high-grade fever rigors and chills patient wound to the left second toe is currently healed with no surrounding swelling or redness patient continued to have nonhealing of her left heel wound though the patient denies significant pain to the left heel wound area did have minimal surrounding redness though and some drainage but no foul smell to it, so the patient has been admitted to the hospital no fever has been recorded this admission the patient did have a normal white count urine is mildly positive patient did complain of some diarrhea stool for 3 was negative patient has been admitted to the hospital she has been continued Zosyn infectious was consulted for further recommendation regarding her wound and antibiotic therapy. Review of Systems Positive point has been mentioned in HPI rest of the systems are negative Past Medical History Past Medical History: Hyperlipidemia, Hypertension, Osteoarthritis (OA), Skin Disorder, Thyroid Disorder Additional Past Medical History / Comment(s): Nonambulatory/pivots to wheelchair normally, low back pain, neuropathy bilateral feet, chronic venous stasis, current L heel/L posterior yost/left second toe wounds, L 2nd toe osteomyelitis, bilateral leg cellulitis, past L foot ulcer, lymphedema bilateral legs, DJD, past R ankle fracture x3, UTIs, stress incontinence, chronic anemia, umbilical hernia, hypothyroid, pyodema gangrenosum. History of Any Multi-Drug Resistant Organisms: MRSA, Other MDRO Year Discovered:: 12/14/18 MDRO Source:: Left Heel & Left Foot Past Surgical History: Section, Cholecystectomy, Orthopedic Surgery, Tubal Ligation Additional Past Surgical History / Comment(s): L leg I&D, bilateral knee arthroscopies, L great toe amp d/t nonhealing wound, PICCS, midlines, D&Cs Past Anesthesia/Blood Transfusion Reactions: Previous Problems w/ Anesthesia Additional Past Anesthesia/Blood Transfusion Reaction / Comm: slow to come out of it/muscle weakness Smoking Status: Former smoker - Past Family History Father Family Medical History: Cancer, Coronary Artery Disease (CAD), Myocardial Infarction ([place]), Prostate Disorder Additional Family Medical History / Comment(s): Prostate CA. Father in a MVA at the age of 80yrs. Mother Family Medical History: Cancer, CVA/TIA, Hyperlipidemia Additional Family Medical History / Comment(s): Lung CA-left lobe removed. Mother is 87yrs old. Medications and Allergies Home Medications Medication Instructions Recorded Confirmed Type Levothyroxine Sodium [Synthroid] 100 mcg PO DAILY 08/29/13 05/05/19 History Atorvastatin Calcium [Lipitor] 10 mg PO HS 10/06/18 05/05/19 History Pregabalin [Lyrica] 100 mg PO TID 02/03/19 05/05/19 History HYDROcodone/APAP 7.5-325MG [[place] 1 tab PO Q6H PRN 03/18/19 05/05/19 History 7.5-325] Lisinopril [Zestril] 20 mg PO BID 03/18/19 05/05/19 History Piperacillin-Tazobactam [Zosyn] 3.375 gm IVPB Q6H #84 bag 04/14/19 05/05/19 Rx amLODIPine [Norvasc] 5 mg PO DAILY 05/05/19 05/05/19 History Allergies Allergy/AdvReac Type Severity Reaction Status Date / Time Sulfa (Sulfonamide Allergy Rash/Hives Verified 05/05/19 07:13 Antibiotics) Physical Exam Vitals: Vital Signs Temp Pulse Pulse Resp BP BP Pulse Ox 05/05/19 21:00 98.2 F 79 82/47 95 05/05/19 17:04 98.4 F 84 17 120/62 98 05/05/19 13:11 98.0 F 84 16 115/59 92 L 05/05/19 08:14 98.9 F 75 16 145/65 100 05/05/19 05:00 80 18 119/67 98 05/05/19 03:30 82 17 121/76 99 05/05/19 03:20 85 18 121/76 98 05/05/19 01:29 97.9 F 86 18 135/64 100 Intake and Output 05/05/19 05/05/19 05/05/19 06:59 14:59 22:59 Intake Total 590 Balance 590 Intake: Oral 590 Other: Voiding Method Bedpan # Voids 1 # Bowel Movements 1 Weight 142 kg 142 kg GENERAL DESCRIPTION: Middle-aged female lying in bed, no distress. No tachypnea or accessory muscle of respiration use. HEENT: Shows Pallor , no scleral icterus. Oral mucous membrane is dry. NECK: Trachea central, no thyromegaly. LUNGS: Unlabored breathing. Clear to auscultation anteriorly. No wheeze or crackle. HEART: S1, S2, regular rate and rhythm. ABDOMEN: Soft, no tenderness , guarding or rigidity EXTREMITIES: Left heel wound stage III pressure ulcer with no significant slough tissue some surrounding callus some drainage but no foul-smelling , the patient left second toe wound is currently healed minimal swelling to that but there is no redness or any drainage sKIN: No rash, no masses palpable. NEUROLOGICAL: The patient is awake, alert, oriented x3, mood and affect normal. Results CBC & Chem 7: 05/05/19 02:00 05/05/19 02:00 Labs: Abnormal Lab Results - Last 24 Hours (Table) 05/05/19 05/05/19 05/05/19 Range/Units 02:00 02:00 04:11 RBC 3.21 L (3.80-5.40) m/uL Hgb 9.6 L (11.4-16.0) gm/dL Hct 29.4 L (34.0-46.0) % RDW 15.6 H (11.5-15.5) % Plt Count 135 L (150-450) k/uL Lymphocytes # 0.7 L (1.0-4.8) k/uL Chloride 109 H (98-107) mmol/L BUN 19 H (7-17) mg/dL Alkaline Phosphatase 145 H (38-126) U/L Urine Appearance Cloudy H (Clear) Urine Protein Trace H (Negative) Urine Ketones 1+ H (Negative) Ur Leukocyte Esterase Trace H (Negative) Urine RBC 24 H (0-5) /hpf Urine WBC 8 H (0-5) /hpf Urine Bacteria Rare H (None) /hpf Hyaline Casts 17 H (0-2) /lpf Urine Mucus Many H (None) /hpf Assessment and Plan Assessment: 1-patient with a recent history of osteomyelitis of the second toe in this patient who did have a chronic nonhealing wound to the left heel area stage III pressure ulcer patient left second toe wound is currently healed however she did have a persistent nonhealing of left heel wound with some surrounding cellulitis questionably etiology of some of her symptoms of generalized weakness and difficulty having transferring around agitation to the hospital as patient currently had no fever or elevated white count UA are significantly positive either patient did not have a PICC line that has been there for more than 2 weeks now did mention they are unable to draw any blood from it but no other symptoms referable to it (1) Osteomyelitis of second toe of left foot Current Visit: Yes Status: Acute Code(s): M86.9 - OSTEOMYELITIS, UNSPECIFIED SNOMED Code(s): 2154217528727445 (2) Pressure ulcer of left heel, stage 3 Current Visit: Yes Status: Acute Code(s): L89.623 - PRESSURE ULCER OF LEFT HEEL, STAGE 3 SNOMED Code(s): 159596040 Plan: 1-blood cultures x2 2-we will obtain x-rays of the left foot 3-We will check sed rate and CRP 4-Local wound culture left heel both aerobic and anaerobic 5-vancomycin pharmacy to dose her with a target trough of 15 while watching her kidney function and Vanco trough closely. Discontinue Zosyn We will follow on clinical condition and cultures to further adjust medication if needed Thank you for this consultation we will follow the patient along with you Time with Patient: Greater than 30
[2019-05-05] MEDS ORDERED: VANCOMYCIN 2,000 MG in SODIUM CHLORIDE 0.9% 500 ML 500 ML IVPB SCH (23:00)
[2019-05-06] MEDS: LEVOTHYROXINE 100 MCG TAB PO SCH (06:09)
--- NOTE | 2019-05-06 06:53 | XR ---
EXAMINATION TYPE: XR foot limited LT DATE OF EXAM: 05/06/2019 CLINICAL HISTORY: Nonhealing wound left heel the second toe. TECHNIQUE: Frontal and lateral images of the left foot are obtained. COMPARISON: Left foot x-ray April 12, 2019. FINDINGS: There is redemonstration of amputation defect distal first metatarsal level first toe. Lela neralization is redemonstrated. There there is severe diffuse soft tissue prominence and/or subcutane ous edema. Soft tissue calcifications distal leg level presumed on the basis of venous stasis. There is interval improvement in soft tissue ulceration on lateral view at level of distal second toe. No n ew cortical destruction is seen. There is chronic diffuse reduction of distal aspect of second and th ird toes redemonstrated. Midfoot structures show moderate narrowing and spurring. There is pes planus deformity. There is large inferior calcaneal spur. No new suspicious bony destruction of the inferio r calcaneus is identified. IMPRESSION: There is no convincing radiographic evidence for new acute osteomyelitis. Other findings fairly stable.
[2019-05-06] MEDS: LISINOPRIL 20 MG TAB PO SCH ×2 (08:13→21:22)
[2019-05-06] MEDS: PREGABALIN 100 MG CAP PO SCH ×3 (08:13→22:55)
[2019-05-06] MEDS: amLODIPine 5 MG TAB PO SCH (08:13)
[2019-05-06] MEDS: SODIUM CHLORIDE 0.9% 1,000 ML IV SCH ×3 (08:14→18:05)
[2019-05-06] MEDS: HYDROcodone/APAP 7.5-325MG 1 EACH TAB PO PRN ×2 (08:15→21:22)
[2019-05-06 09:39] LABS: Basophils % (A) 0 %; Eosinophils # (A) 0.1 k/uL (0-0.7); Eosinophils % (A) 2 %; HCT 25.7 % (34.0-46.0); HGB 8.2 gm/dL (11.4-16.0); Hypochromasia Slight; Lymphocytes # (A) 0.6 k/uL (1.0-4.8); Lymphocytes % (A) 15 %; MCH 29.7 pg (25.0-35.0); MCHC 32.1 g/dL (31.0-37.0); MCV 92.6 fL (80.0-100.0); Mean Platelet Volume 10.5; Monocytes # (A) 0.3 k/uL (0-1.0); Monocytes % (A) 6 %; Neutrophils % (A) 74 %; Platelet Count 116 k/uL (150-450); RBC 2.77 m/uL (3.80-5.40); RDW 15.6 % (11.5-15.5); WBC 4.1 k/uL (3.8-10.6)
[2019-05-06 11:50] LABS: Erythrocyte Sedimentation Rate 48 mm/hr (0-20)
[2019-05-06] MEDS: VANCOMYCIN 2,000 MG in SODIUM CHLORIDE 0.9% 500 ML 500 ML IVPB SCH ×2 (13:08→22:55)
[2019-05-06 14:19] VITALS: BMI 47.6
[2019-05-06] MEDS: ENOXAPARIN 40 MG/0.4 ML SYRINGE SQ SCH (17:01)
[2019-05-06] MEDS: ATORVASTATIN 10 MG TAB PO SCH (21:22)
--- NOTE | 2019-05-06 23:23 | PN ---
PROGRESS NOTE DATE OF SERVICE: 05/06/2019 REASON FOR FOLLOWUP: Left foot stage III pressure ulcer and 2nd toe osteomyelitis. INTERVAL HISTORY: The patient is currently afebrile. The patient has been breathing comfortably. The patient denies having any chest pain or cough. No nausea, vomiting. Denies any worsening with the foot area and no drainage. PHYSICAL EXAMINATION: Blood pressure is 119/65 with a pulse of 84, temperature 98.7. She is 94%. On general description is a middle-aged female lying in bed in no distress. Respiratory system: Unlabored breathing. Clear to auscultation anteriorly. Heart S1, S2. Regular rate and rhythm. Abdomen soft. Left foot plantar wound. Did have minimal cough. Some surrounding redness. No foul smelling drainage. Second wound is currently healed on examination. LABS: Hemoglobin 8.8, white count 4.1, white count 14.9. Blood culture has been negative. DIAGNOSTIC IMPRESSION AND PLAN: Patient with left foot plantar wound with 2nd cellulitis, also with 2nd toe positive. The patient is currently covered with vancomycin. Culture has been obtained to guide further antibiotic therapy and monitor clinical course closely. MMODL / IJN: [id number] /
--- NOTE | 2019-05-07 00:23 | P.PN ---
Progress Note - Text Progress Note Date: 05/06/19 Chief Complaint: Heavy left leg History of presenting complaint: This is a pleasant 63-year-old patient of Dr. Mcfarlane. Chronic stable medical conditions include idiopathic peripheral neuropathy, morbid obesity, primary osteoarthritis, essential hypertension, hypothyroid, , urinary stress incontinence, chronic venous stasis, hyperlipidemia, bilateral lower extremity lymphedema, pyoderma gangrenosum. Had a baseline patient uses a wheelchair to get about. Patient was here in the middle of March 2019 and . MRI did confirm osteomyelitis of the left foot second toe. Patient was discharged on IV Zosyn for 28 days. Patient has 3 more days left. Patient now presents with feeling weak tired decreased appetite. Her left leg feels rather weak but able to lift it up. She lives alone. No fever or chills. Patient due to see Dr. Morris from vascular surgery in the outpatient on May 09. Today-sitting up. No new issues. Getting antibiotics. Pain is controlled. PTOT to see the patient. Review of systems: Was done for constitutional, cardiovascular, GI, pulmonary. relevant finding as above Active Medications Hydrocodone Bitart/Acetaminophen ([place] 7.5-325) 1 each PO Q6H PRN PRN Reason: Pain Last Admin: 05/06/19 21:22 Dose: 1 each Documented by: Amlodipine Besylate (Norvasc) 5 mg PO DAILY [facility] Last Admin: 05/06/19 08:13 Dose: 5 mg Documented by: Atorvastatin Calcium (Lipitor) 10 mg PO HS [facility] Last Admin: 05/06/19 21:22 Dose: 10 mg Documented by: Enoxaparin Sodium (Lovenox) 40 mg SQ Q24H [facility] Last Admin: 05/06/19 17:01 Dose: 40 mg Documented by: Sodium Chloride (Saline 0.9%) 1,000 mls @ 130 mls/hr IV .Q7H42M [facility] Last Admin: 05/06/19 18:05 Dose: Not Given Documented by: Vancomycin HCl 2,000 mg/ (Sodium Chloride) 500 mls @ 167 mls/hr IVPB Q12H [facility] Last Admin: 05/06/19 22:55 Dose: 167 mls/hr Documented by: Levothyroxine Sodium (Synthroid) 100 mcg PO DAILY@0630 [facility] Last Admin: 05/06/19 06:09 Dose: 100 mcg Documented by: Lisinopril (Zestril) 20 mg PO BID [facility] Last Admin: 05/06/19 21:22 Dose: 20 mg Documented by: Naloxone HCl (Narcan) 0.2 mg IV Q2M PRN PRN Reason: Opioid Reversal Pregabalin (Lyrica) 100 mg PO TID [facility] Last Admin: 05/06/19 22:55 Dose: 100 mg Documented by: Physical examination: VITAL SIGNS: 98.6, 77, 18, 119% to 6, 93% room air GENERAL: Laying down, comfortable EYES: Pupils equal. Conjunctiva normal. HEENT: External appearance of nose and ears normal, oral cavity grossly normal. NECK: JVD unable to assess; masses not palpable. HEART: Distal heart sounds; some edema. LUNGS: Respiratory rate normal; distant breath sounds. ABDOMEN: Soft, nontender, liver spleen not palpable, no masses palpable. Umbilical hernia PSYCH: Alert and oriented x3; mood and affect normal. LYMPHATICS: lower extremity lymphedema MUSCULAR skeletal: Less range of motion around the left hip compared to the right. lower extremity with venous is insufficiency and lymphedema Left lower extremity: absent first toe, some tenderness of the left second to e.; Left leg posteriorly wound INVESTIGATIONS, reviewed in the clinical context: White count 4.1 hemoglobin 8.2 CRP 40.9, C. diff negative Previous testing White count 7.4 hemoglobin 9.6 platelets 135 potassium 3.9 creatinine 0.82 Assessment: -Patient overall has a very large body habitus. Including a BMI 47.6. Patient's lower extremities are very large including contribution from lymph edema. Patient is finding it difficult to lift the leg. Of course there is some fluid lymphedema component which is difficult to treat. -left second toe osteomyelitis, acute, requiring IV Zosyn . 3 more days of antibiotics left. -chroniclow back pain, likely from spinal stenosis/herniated disc with radiculopathy and down and affect. This is most likely from L1-L2 and L3-L4 nerve distribution. -Pyoderma gangrenosum -Hyperlipidemia -Essential hypertension -Primary osteoarthritis -Hypothyroid -Chronic medical debility uses a vision -Idiopathic peripheral neuropathy -Chronic venous stasis -Bilateral lower extremity lymphedema -Chronic urinary stress incontinence -Chronic umbilical hernia -Left leg posteriorly, decubitus ulcer, POA Plan: Care was discussed with the patient. Antibiotic course to be completed after discussion with Dr. Hernandez from ID. PTOT of the case. Discharge plan is of the case. Other medications to continue.
[2019-05-07] MEDS: HYDROcodone/APAP 7.5-325MG 1 EACH TAB PO PRN ×4 (02:51→23:56)
[2019-05-07] MEDS: SODIUM CHLORIDE 0.9% 1,000 ML IV SCH ×3 (02:55→16:04)
[2019-05-07] MEDS: LEVOTHYROXINE 100 MCG TAB PO SCH (05:42)
[2019-05-07 07:36] LABS: African American GFR (CKD) >90 (>60 ml/min/1.73 sqM); Non-African American GFR(CKD) >90 (>60 ml/min/1.73 sqM)
[2019-05-07] MEDS: PREGABALIN 100 MG CAP PO SCH ×3 (08:07→21:53)
[2019-05-07] MEDS: LISINOPRIL 20 MG TAB PO SCH ×2 (08:08→21:53)
[2019-05-07] MEDS: amLODIPine 5 MG TAB PO SCH (08:08)
[2019-05-07] MEDS: VANCOMYCIN 2,000 MG in SODIUM CHLORIDE 0.9% 500 ML 500 ML IVPB SCH ×2 (11:00→23:56)
[2019-05-07] MEDS: ENOXAPARIN 40 MG/0.4 ML SYRINGE SQ SCH (17:10)
--- NOTE | 2019-05-07 19:56 | PN ---
PROGRESS NOTE DATE OF SERVICE: 05/07/2019 REASON FOR FOLLOWUP: 1. Left heel stage III pressure ulcer and cellulitis. 2. Left second toe osteomyelitis. INTERVAL HISTORY: The patient is currently afebrile. The patient's overall pain and swelling symptoms to the left heel area have improved. Denies having any chest pain, shortness of breath or cough. No abdominal pain or diarrhea. PHYSICAL EXAMINATION: Her blood pressure is 118/63 with a pulse of 81, temperature 98. She is 93% on room air. General description is a middle-aged female lying in bed in no distress. RESPIRATORY SYSTEM: Unlabored breathing. Clear to auscultation anteriorly. HEART: S1, S2. Regular rate and rhythm. ABDOMEN: Soft. No tenderness. Left heel is currently dressed up. No obvious drainage on the dressing. LABS: Hemoglobin 8.2 with white count of 4.1. Wound cultures currently pending. DIAGNOSTIC IMPRESSION AND PLAN: Patient with a left heel stage III pressure ulcer with secondary cellulitis. The patient is currently covered with vancomycin while waiting for the culture to finalize to determine discharge antibiotics. Local care to continue with the [facility]. Monitor clinical course closely. MMODL / IJN: [id number] /
[2019-05-07] MEDS: ATORVASTATIN 10 MG TAB PO SCH (21:52)
--- NOTE | 2019-05-07 23:30 | P.PN ---
Progress Note - Text Progress Note Date: 05/07/19 Chief Complaint: Heavy left leg History of presenting complaint: This is a pleasant 63-year-old patient of Dr. Mcfarlane. Chronic stable medical conditions include idiopathic peripheral neuropathy, morbid obesity, primary osteoarthritis, essential hypertension, hypothyroid, , urinary stress incontinence, chronic venous stasis, hyperlipidemia, bilateral lower extremity lymphedema, pyoderma gangrenosum. Had a baseline patient uses a wheelchair to get about. Patient was here in the middle of March 2019 and . MRI did confirm osteomyelitis of the left foot second toe. Patient was discharged on IV Zosyn for 28 days. Patient has 3 more days left. Patient now presents with feeling weak tired decreased appetite. Her left leg feels rather weak but able to lift it up. She lives alone. No fever or chills. Patient due to see Dr. Morris from vascular surgery in the outpatient on May 09. Today-laying in bed. No new issues. Pending PT OT input. Antibiotics to continue. Review of systems: Was done for constitutional, cardiovascular, GI, pulmonary. relevant finding as above Active Medications Hydrocodone Bitart/Acetaminophen ([place] 7.5-325) 1 each PO Q6H PRN PRN Reason: Pain Last Admin: 05/07/19 17:09 Dose: 1 each Documented by: Amlodipine Besylate (Norvasc) 5 mg PO DAILY [facility] Last Admin: 05/07/19 08:08 Dose: 5 mg Documented by: Atorvastatin Calcium (Lipitor) 10 mg PO HS [facility] Last Admin: 05/07/19 21:52 Dose: 10 mg Documented by: Enoxaparin Sodium (Lovenox) 40 mg SQ Q24H [facility] Last Admin: 05/07/19 17:10 Dose: 40 mg Documented by: Sodium Chloride (Saline 0.9%) 1,000 mls @ 130 mls/hr IV .Q7H42M [facility] Last Admin: 05/07/19 16:04 Dose: Not Given Documented by: Vancomycin HCl 2,000 mg/ (Sodium Chloride) 500 mls @ 167 mls/hr IVPB Q12H [facility] Last Admin: 05/07/19 11:00 Dose: 167 mls/hr Documented by: Levothyroxine Sodium (Synthroid) 100 mcg PO DAILY@0630 [facility] Last Admin: 05/07/19 05:42 Dose: 100 mcg Documented by: Lisinopril (Zestril) 20 mg PO BID [facility] Last Admin: 05/07/19 21:53 Dose: 20 mg Documented by: Miscellaneous Information (Vancomycin Trough Due) 1 each MISCELLANE ONCE ONE Stop: 05/08/19 10:01 Naloxone HCl (Narcan) 0.2 mg IV Q2M PRN PRN Reason: Opioid Reversal Pregabalin (Lyrica) 100 mg PO TID [facility] Last Admin: 05/07/19 21:53 Dose: 100 mg Documented by: Physical examination: VITAL SIGNS: 98, 81, 20, 100/66, 93% room air GENERAL: Laying down, comfortable EYES: Pupils equal. Conjunctiva normal. HEENT: External appearance of nose and ears normal, oral cavity grossly normal. NECK: JVD unable to assess; masses not palpable. HEART: Distal heart sounds; some edema. LUNGS: Respiratory rate normal; distant breath sounds. ABDOMEN: Soft, nontender, liver spleen not palpable, no masses palpable. Umbilical hernia PSYCH: Alert and oriented x3; mood and affect normal. LYMPHATICS: lower extremity lymphedema MUSCULAR skeletal: Less range of motion around the left hip compared to the right. lower extremity with venous is insufficiency and lymphedema Left lower extremity: absent first toe, some tenderness of the left second toe.; Left leg posteriorly wound INVESTIGATIONS, reviewed in the clinical context: White count 4.1 hemoglobin 8.2 CRP 40.9, C. diff negative Previous testing White count 7.4 hemoglobin 9.6 platelets 135 potassium 3.9 creatinine 0.82 Assessment: -Patient overall has a very large body habitus. Including a BMI 47.6. Patient's lower extremities are very large including contribution from lymphedema. Patient is finding it difficult to lift the leg. Of course there is some fluid lymphedema component which is difficult to treat. -Left heel stage III pressure ulcer and cellulitis -left second toe osteomyelitis, acute, requiring IV Zosyn . 3 more days of antibiotics lefton admission. -chronic low back pain, likely from spinal stenosis/herniated disc with radiculopathy and down and affect. This is most likely from L1-L2 and L3-L4 nerve distribution. -Pyoderma gangrenosum -Hyperlipidemia -Essential hypertension -Primary osteoarthritis -Hypothyroid -Chronic medical debility uses a vision -Idiopathic peripheral neuropathy -Chronic venous stasis -Bilateral lower extremity lymphedema -Chronic urinary stress incontinence -Chronic umbilical hernia -Left leg posteriorly, decubitus ulcer, POA Plan: continue current medication treatment plan. Antibiotics per Dr. bryant. Looking at discharge planning placement per perinatal social worker correctional casework specialist
[2019-05-08] MEDS: LEVOTHYROXINE 100 MCG TAB PO SCH (05:22)
[2019-05-08] MEDS: SODIUM CHLORIDE 0.9% 1,000 ML IV SCH ×3 (05:24→16:26)
[2019-05-08] MEDS: LISINOPRIL 20 MG TAB PO SCH ×2 (08:45→20:58)
[2019-05-08] MEDS: HYDROcodone/APAP 7.5-325MG 1 EACH TAB PO PRN ×3 (08:45→23:24)
[2019-05-08] MEDS: PREGABALIN 100 MG CAP PO SCH ×3 (08:45→20:58)
[2019-05-08] MEDS: amLODIPine 5 MG TAB PO SCH (08:45)
[2019-05-08] MEDS ORDERED: VANCOMYCIN TROUGH DUE 1 EACH MISC MISCELLANE ONE (10:00)
[2019-05-08] MEDS: VANCOMYCIN 2,000 MG in SODIUM CHLORIDE 0.9% 500 ML 500 ML IVPB SCH (12:26)
[2019-05-08] MEDS ORDERED: VANCOMYCIN IV PER PHARMACY 1 EACH MISC MISCELLANE PRN (12:43)
[2019-05-08] MEDS: ENOXAPARIN 40 MG/0.4 ML SYRINGE SQ SCH (17:16)
[2019-05-08] MEDS: ATORVASTATIN 10 MG TAB PO SCH (20:58)
--- NOTE | 2019-05-08 21:01 | PN ---
PROGRESS NOTE DATE OF SERVICE: 05/08/2019 REASON FOR FOLLOWUP: Left heel stage III pressure ulcer and second toe osteomyelitis. INTERVAL HISTORY: The patient is currently afebrile. Patient is breathing comfortably. The patient's pain to the left heel area seemed to have improved. The patient denies having any chest pain, shortness of breath , cough, no abdominal pain and no diarrhea. PHYSICAL EXAMINATION: Blood pressure is 144/77 with a pulse of 69, temperature 98.2. She is 94% on room air. General description is a middle-aged female lying in bed in no distress. Respiratory system: Unlabored breathing. Clear to auscultation anteriorly. Heart S1, S2 regular rate and rhythm. Abdomen soft, no tenderness. Left heel is currently dressed up. No obvious drainage on the dressing. LABS: Hemoglobin 8.8, white count 4.9. Vancomycin trough is slightly high at 33.1. DIAGNOSTIC IMPRESSION AND PLAN: Patient with left heel pressure ulcer with secondary cellulitis. Vanco dose needs to be adjusted further to keep the trough below 15. Kidney function needs to be monitored closely. Wound culture with enterococcus sensitivity is currently pending to help that will help determine discharge antibiotics. Continue supportive care. MMODL / IJN: [id number] /
--- NOTE | 2019-05-08 23:24 | P.PN ---
Progress Note - Text Progress Note Date: 05/08/19 Chief Complaint: Heavy left leg History of presenting complaint: This is a pleasant 63-year-old patient of Dr. Mcfarlane. Chronic stable medical conditions include idiopathic peripheral neuropathy, morbid obesity, primary osteoarthritis, essential hypertension, hypothyroid, , urinary stress incontinence, chronic venous stasis, hyperlipidemia, bilateral lower extremity lymphedema, pyoderma gangrenosum. Had a baseline patient uses a wheelchair to get about. Patient was here in the middle of March 2019 and . MRI did confirm osteomyelitis of the left foot second toe. Patient was discharged on IV Zosyn for 28 days. Patient has 3 more days left. Patient now presents with feeling weak tired decreased appetite. Her left leg feels rather weak but able to lift it up. She lives alone. No fever or chills. Patient due to see Dr. Morris from vascular surgery in the outpatient on May 09. Today-laying in bed. No new issues. On antibiotics. Toe tolerating a diet Review of systems: Was done for constitutional, cardiovascular, GI, pulmonary. relevant finding as above Active Medications Hydrocodone Bitart/Acetaminophen ([place] 7.5-325) 1 each PO Q6H PRN PRN Reason: Pain Last Admin: 05/08/19 17:15 Dose: 1 each Documented by: Amlodipine Besylate (Norvasc) 5 mg PO DAILY [facility] Last Admin: 05/08/19 08:45 Dose: 5 mg Documented by: Atorvastatin Calcium (Lipitor) 10 mg PO HS [facility] Last Admin: 05/08/19 20:58 Dose: 10 mg Documented by: Enoxaparin Sodium (Lovenox) 40 mg SQ Q24H [facility] Last Admin: 05/08/19 17:16 Dose: 40 mg Documented by: Levothyroxine Sodium (Synthroid) 100 mcg PO DAILY@0630 [facility] Last Admin: 05/08/19 05:22 Dose: 100 mcg Documented by: Lisinopril (Zestril) 20 mg PO BID [facility] Last Admin: 05/08/19 20:58 Dose: 20 mg Documented by: Miscellaneous Information (Pharmacy To Dose Iv Vancomycin) 1 each MISCELLANE DIRECTED PRN; Protocol PRN Reason: Per Protocol Naloxone HCl (Narcan) 0.2 mg IV Q2M PRN PRN Reason: Opioid Reversal Pregabalin (Lyrica) 100 mg PO TID [facility] Last Admin: 05/08/19 20:58 Dose: 100 mg Documented by: Physical examination: VITAL SIGNS: 98.2, 69, 22, 144/77, 94% room air GENERAL: Laying down, comfortable EYES: Pupils equal. Conjunctiva normal. HEENT: External appearance of nose and ears normal, oral cavity grossly normal. NECK: JVD unable to assess; masses not palpable. HEART: Distal heart sounds; some edema. LUNGS: Respiratory rate normal; distant breath sounds. ABDOMEN: Soft, nontender, liver spleen not palpable, no masses palpable. Umbilical hernia PSYCH: Alert and oriented x3; mood and affect normal. LYMPHATICS: lower extremity lymphedema MUSCULAR skeletal: Less range of motion around the left hip compared to the right. lower extremity with venous is insufficiency and lymphedema Left lower extremity: absent first toe, some tenderness of the left second toe.; Left leg posteriorly wound INVESTIGATIONS, reviewed in the clinical context: White count 4.1 hemoglobin 8.2 CRP 40.9, C. diff negative Previous testing White count 7.4 hemoglobin 9.6 platelets 135 potassium 3.9 creatinine 0.82 Assessment: -Patient overall has a very large body habitus. Including a BMI 47.6. Patient's lower extremities are very large including contribution from lymphedema. Patient is finding it difficult to lift the leg. Of course there is some fluid lymphedema component which is difficult to treat. -Left heel stage III pressure ulcer and cellulitis -left second toe osteomyelitis, acute, requiring IV Zosyn . 3 more days of antibiotics lefton admission. -chronic low back pain, likely from spinal stenosis/herniated disc with radic ulopathy and down and affect. This is most likely from L1-L2 and L3-L4 nerve distribution. -Pyoderma gangrenosum -Hyperlipidemia -Essential hypertension -Primary osteoarthritis -Hypothyroid -Chronic medical debility uses a vision -Idiopathic peripheral neuropathy -Chronic venous stasis -Bilateral lower extremity lymphedema -Chronic urinary stress incontinence -Chronic umbilical hernia -Left leg posteriorly, decubitus ulcer, POA Plan: Discussed with patient at length. She wishes to go home. She was to see Dr. Morris before she has an appointment to the office tomorrow. Before she leaves. He'll be consulted
[2019-05-09] MEDS: LEVOTHYROXINE 100 MCG TAB PO SCH (05:18)
[2019-05-09] MEDS: HYDROcodone/APAP 7.5-325MG 1 EACH TAB PO PRN (05:18)
[2019-05-09] MEDS: SODIUM CHLORIDE 0.9% 1,000 ML IV SCH (05:24)
[2019-05-09] MEDS: PREGABALIN 100 MG CAP PO SCH ×2 (08:37→15:30)
[2019-05-09] MEDS: LISINOPRIL 20 MG TAB PO SCH (08:37)
[2019-05-09] MEDS: amLODIPine 5 MG TAB PO SCH (08:37)
[2019-05-09 09:34] LABS: Vancomycin,Random 13.3 ug/mL
--- NOTE | 2019-05-09 10:31 | CDI ---
Documentation Clarification Form Date: 05/09/2019 1029 CDS: Olivia Valdez RN, CCDS Admit Date:05/07/2019 0848 Patient Name: Darling Spicer ATTENTION: The Clinical Documentation Specialists (CDI) and [facility] Coding Staff appreciate your assistance in clarifying documentation. Please respond to the clarification below the line at the bottom and electronically sign. The CDI & [facility] Coding staff will review the response and follow-up if needed. Please note: Queries are made part of the Legal Health Record. If you have any questions, please contact the author of this message via ITS. Dr. Elpidio Frank diagnosis of anemia lacks specificity to accurately reflect your patients severity of condition and clarification is needed. History/Risk Factors: Chronic venous stasis, chronic left lower extremity pressure ulcer, peripheral neuropathy, chronic anemia Clinical indicators: Hemoglobin: 9.6/8.2 Hematocrit: 29.4/25.7 Treatment: monitoring labs In order to capture the severity of condition, please clarify the type of anemia and etiology if known: Chronic blood loss anemia Iron deficiency anemia Anemia of chronic disease Nutritional anemia Anemia of chronic kidney disease Unable to determine Other, please specify (Last Revision: January 2017) Possibly, anemia of chronic disease MTDD
[2019-05-09] MEDS ORDERED: VANCOMYCIN 2,500 MG in SODIUM CHLORIDE 0.9% 500 ML 500 ML IVPB SCH (12:00)
[2019-05-09 12:31] VITALS: BP 133/77; PULSE 76; RESP 18; TEMP 98
--- NOTE | 2019-05-09 14:22 | CONS ---
DATE OF CONSULTATION: 05/09/2019 Patient is 63-year-old female known to me from the [facility]. Patient has a history of obesity, diabetes. Patient has a chronic wound left heel. She has been admitted to the local wound care and IV antibiotic. MEDICAL HISTORY: History of obesity, history of hyperlipidemia, hypertension. PHYSICAL EXAMINATION: NECK: Supple, trachea central. CHEST: Clear. ABDOMEN: Soft, femorals are 1+. Patient has a wound on his left heel 3 x 4 cm with good granulation tissue. No discharge or redness noted. PLAN: We continue with local wound care and patient will follow up in the [facility]ound Clinic next Thursday. MMODL / IJN: [id number] / JERRY
[2019-05-09] MEDS: ENOXAPARIN 40 MG/0.4 ML SYRINGE SQ SCH (15:29)
--- NOTE | 2019-05-10 00:50 | P.DS ---
Providers Date of admission: 05/07/19 08:48 Expected date of discharge: 05/09/19 Attending physician: Tal Magallanes Consults: 05/05/19 12:58 Consult Physician Routine Consulting Provider: Thea Rosa Consult Reason/Comments: Left foot second toe osteomyelitis Do you want consulting provider notified?: Yes 05/08/19 23:21 Consult Physician Routine Consulting Provider: Luis E Danielson Consult Reason/Comments: Follow-up foot wound/osteomyelitis Do you want consulting provider notified?: Yes Primary care physician: [facility] Course: Chief Complaint: Heavy left leg History of presenting complaint: This is a pleasant 63-year-old patient of Dr. Mcfarlane. Chronic stable medical conditions include idiopathic peripheral neuropathy, morbid obesity, primary osteoarthritis, essential hypertension, hypothyroid, , urinary stress incontinence, chronic venous stasis, hyperlipidemia, bilateral lower extremity lymphedema, pyoderma gangrenosum. Had a baseline patient uses a wheelchair to get about. Patient was here in the middle of March 2019 and . MRI did confirm osteomyelitis of the left foot second toe. Patient was discharged on IV Zosyn for 28 days. Patient has 3 more days left. Patient now presents with feeling weak tired decreased appetite. Her left leg feels rather weak but able to lift it up. She lives alone. No fever or chills. Patient due to see Dr. Morris from vascular surgery in the outpatient on May 09. patient also found to have left heel ulcer. Left foot second toe osteomyelitis greatly improved. 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 Patient seen by Dr. Rosa from ID and Dr. Morris from vascular surgery. Patient wishes to go home rather to rehab. Home care is being arranged.patient be discharged on daptomycin IV for 4 more weeks care was discussed with the patient today. Dr. Morris from vascular. Also with the nurse case manager. Discussion and discharge planning more than 35 minutes Consultation: Dr. rosa from ID Dr. Morris from vascular Physical examination: VITAL SIGNS: 98, 76, 18, 133/77, 97% room air GENERAL: sitting up, comfortable EYES: Pupils equal. Conjunctiva normal. HEENT: External appearance of nose and ears normal, oral cavity grossly normal. NECK: JVD unable to assess; masses not palpable. HEART: Distal heart sounds; some edema. LUNGS: Respiratory rate normal; distant breath sounds. ABDOMEN: Soft, nontender, liver spleen not palpable, no masses palpable. Umbilical hernia PSYCH: Alert and oriented x3; mood and affect normal. LYMPHATICS: lower extremity lymphedema MUSCULAR skeletal: Less range of motion around the left hip compared to the right. lower extremity with venous is insufficiency and lymphedema Left lower extremity: absent first toe, some tenderness of the left second toe.; Left leg posteriorly wound , and he'll INVESTIGATIONS, reviewed in the clinical context: White count 4.1 hemoglobin 8.2 CRP 40.9, C. diff negative Previous testing White count 7.4 hemoglobin 9.6 platelets 135 potassium 3.9 creatinine 0.82 Assessment: -Patient overall has a very large body habitus. Including a BMI 47.6. Patient's lower extremities are very large including contribution from lymphedema. Patient is finding it difficult to lift the leg. Of course there is some fluid lymphedema component which is difficult to treat. -Left heel stage III pressure ulcer and acute cellulitis -left second toe osteomyelitis, acute, requiring IV Zosyn . 3 more days of antibiotics lefton admission. -chronic low back pain, likely from spinal stenosis/herniated disc with radiculopathy and down and affect. This is most likely from L1-L2 and L3-L4 nerve distribution. -Pyoderma gangrenosum -Hyperlipidemia -Essential hypertension -Primary osteoarthritis -Hypothyroid -Chronic medical debility uses a vision -Idiopathic peripheral neuropathy -Chronic venous stasis -Bilateral lower extremity lymphedema -Chronic urinary stress incontinence -Chronic umbilical hernia -Left leg posteriorly, decubitus ulcer, POA disposition: Home Patient Condition at Discharge: Stable Plan - Discharge Summary Discharge Rx Participant: No New Discharge Prescriptions: New DAPTOmycin [Cubicin] 850 mg IV DAILY #28 bag Continue Levothyroxine Sodium [Synthroid] 100 mcg PO DAILY Atorvastatin Calcium [Lipitor] 10 mg PO HS Pregabalin [Lyrica] 100 mg PO TID HYDROcodone/APAP 7.5-325MG [[place] 7.5-325] 1 tab PO Q6H PRN PRN Reason: Pain Lisinopril [Zestril] 20 mg PO BID amLODIPine [Norvasc] 5 mg PO DAILY No Action Piperacillin-Tazobactam [Zosyn] 3.375 gm IVPB Q6H #84 bag Discharge Medication List Levothyroxine Sodium [Synthroid] 100 mcg PO DAILY 08/29/13 [History] Atorvastatin Calcium [Lipitor] 10 mg PO HS 10/06/18 [History] Pregabalin [Lyrica] 100 mg PO TID 02/03/19 [History] HYDROcodone/APAP 7.5-325MG [[place] 7.5-325] 1 tab PO Q6H PRN 03/18/19 [History] Lisinopril [Zestril] 20 mg PO BID 03/18/19 [History] Piperacillin-Tazobactam [Zosyn] 3.375 gm IVPB Q6H #84 bag 04/14/19 [Rx] amLODIPine [Norvasc] 5 mg PO DAILY 05/05/19 [History] DAPTOmycin [Cubicin] 850 mg IV DAILY #28 bag 05/09/19 [Rx] Follow up Appointment(s)/Referral(s): Adonis Mcfarlane DO [Primary Care Provider] - 05/20/19 9:20 am [facility], [NON-STAFF] - 1 Week Luis E Danielson MD [STAFF PHYSICIAN] - 05/16/19 12:45 pm (Patient will see Dr. Danielson in the Wound Clinic) Patient Instructions/Handouts: Daptomycin (By injection), Urinary Tract Infection in Women (DC), Weakness (DC) Activity/Diet/Wound Care/Special Instructions: Antibiotics per Dr. Rosa from ID Discharge Disposition: HOME WITH HOME HEALTH SERVICES
--- NOTE | 2019-05-16 10:04 | CDI ---
Documentation Clarification Form Date: 05/16/2019 09:43:00 AM From: Lenora Hameed Phone: If you have a question about this query, please contact Jazmin Ramirez, Lining Setter at [phone] between 8am and 5pm. Admit Date: 05/07/2019 08:48:00 AM Patient Name: Darling Spicer Visit Number: [id number] Discharge Date: 05/09/2019 06:45:00 PM ATTENTION: The Clinical Documentation Specialists (CDI) and [facility] Coding Staff appreciate your assistance in clarifying documentation. Please respond to the clarification below the line at the bottom and electronically sign. The CDI & [facility] Coding staff will review the response and follow-up if needed. Please note: Queries are made part of the Legal Health Record. If you have any questions, please contact the author of this message via ITS. Dr. Tal Magallanes Acute Osteomyelitis has been documented. Patient also has heel ulcer and cellulitis. Please clarify if any of these are related to patient's Diabetes. History/Risk Factors: polyneuropathy, venous stasis, Stage III heel ulcer. status amputation left great Treatment: IV antibiotics In your professional opinion, please specify the following: Acute osteomyelitis due to DM LT Acute Osteomyelitis not due to DM LT Other please specify): Unable to Determine Associated condition Diabetic Acute osteomyelitis due to DM LT MTDD
--- NOTE | 2019-05-18 10:53 | CDI ---
Documentation Clarification Form Date: 05/18/2019 10:43:14 AM From: Lenora Hameed Phone: If you have a question about this query, please contact Jazmin Ramirez Machine Clothing Man at [phone] between 8am and 5pm. Admit Date: 05/07/2019 08:48:00 AM Patient Name: Darling Spicer Visit Number: [id number] Discharge Date: 05/09/2019 06:45:00 PM ATTENTION: The Clinical Documentation Specialists (CDI) and [facility] Coding Staff appreciate your assistance in clarifying documentation. Please respond to the clarification below the line at the bottom and electronically sign. The CDI & [facility] Coding staff will review the response and follow-up if needed. Please note: Queries are made part of the Legal Health Record. If you have any questions, please contact the author of this message via ITS. Dr. Tal Danielson 05/09 consult documents patient has a history of diabetes. I do not see this documentation anywhere else in the chart for DM. Please clarify if patient has DM History/Risk Factors: ulcers, osteomyelitis, polyneuropathy In order to capture the severity of Illness and necessary documentation specificity, please clarify: DM Type 1 DM Type 2 DM ruled out Other, please specify Unable to Determine Diabetes mellitus ruled out MTDD
== END 2019-05-09 18:45 | disposition home health service (06) | DRG 539 ==
LOC: EC 01:27 → 6NMEDSUR 04:52 → 5NMEDONC 15:32 → OBSVTOIN 05-07 08:48
PROVIDERS: ADMIT Hospitalist; ATTEND Hospitalist
DX: M86.172 Other acute osteomyelitis, left ankle and foot (principal); L89.623 Pressure ulcer of left heel, stage 3; L03.116 Cellulitis of left lower limb; L88 Pyoderma gangrenosum; N39.0 Urinary tract infection, site not specified; Z68.42 Body mass index [BMI] 45.0-49.9, adult; E03.9 Hypothyroidism, unspecified; E66.01 Morbid (severe) obesity due to excess calories; E78.5 Hyperlipidemia, unspecified; G60.9 Hereditary and idiopathic neuropathy, unspecified; G89.29 Other chronic pain; I10 Essential (primary) hypertension; I83.028 Varicose veins of left lower extremity with ulcer other part of lower leg; I87.8 Other specified disorders of veins; K42.9 Umbilical hernia without obstruction or gangrene; M19.91 Primary osteoarthritis, unspecified site; M48.061 Spinal stenosis, lumbar region without neurogenic claudication; M51.16 Intervertebral disc disorders with radiculopathy, lumbar region; N39.3 Stress incontinence (female) (male); Z79.890 Hormone replacement therapy; Z79.899 Other long term (current) drug therapy; Z80.1 Family history of malignant neoplasm of trachea, bronchus and lung; Z80.42 Family history of malignant neoplasm of prostate; Z82.49 Family history of ischemic heart disease and other diseases of the circulatory system; Z87.891 Personal history of nicotine dependence; Z88.2 Allergy status to sulfonamides; Z98.51 Tubal ligation status; Z90.49 Acquired absence of other specified parts of digestive tract; Z89.412 Acquired absence of left great toe
CPT/HCPCS: 36415; 80053; 80202; 81001; 82565; 83605; 83735; 85025; 85610; 85652; 85730; 86140; 87040; 87070; 87077; 87186; 87205; 87324; 96365; 96366; 96372; 99285

== ENCOUNTER → 2019-06-10 | Outpatient (CLI) | payer MEDICARE, OTHER ==
[2019-06-10 14:25] LABS: African American GFR (CKD) >90 (>60 ml/min/1.73 sqM); Blood Urea Nitrogen 18 mg/dL (7-17); Non-African American GFR(CKD) >90 (>60 ml/min/1.73 sqM)
--- NOTE | 2019-06-13 09:20 | CT ---
EXAMINATION TYPE: CT ChestAbdPelvis w con DATE OF EXAM: 06/10/2019 COMPARISON: 03/18/2019 HISTORY: c/o back pain CT DLP: 1551 mGycm CONTRAST: CT scan of the chest, abdomen and pelvis is performed with Oral Contrast and with IV Contrast, patien t injected with 100 mL of Isovue 300. CT Chest: LUNGS: The lungs are clear and free of infiltrate or atelectasis. No pulmonary nodule or mass is det ected. No pleural effusion or CT evidence of interstitial lung disease. MEDIASTINUM: Thoracic aorta is of normal caliber. The heart is not enlarged. No evidence for media stinal mass or adenopathy. Small hiatal hernia noted. HILAR STRUCTURES: No evidence for mass. No hilar adenopathy is appreciated. OTHER: No significant abnormality. CONTRAST CT ABDOMEN AND PELVIS FINDINGS: LIVER/GB: The gallbladder is surgically absent. Mild hepatomegaly with hepatic steatosis. No space oc cupying hepatic lesion. Biliary tree is of normal caliber. PANCREAS: No inflammation. No distinct mass. SPLEEN: No splenic enlargement. No lesion seen. ADRENALS: No nodule. No thickening. KIDNEYS/BLADDER: No hydronephrosis. No nephrolithiasis. No disctinct renal mass. BOWEL: Normal appendix. Normal bowel caliber. No inflammation. GENITAL ORGANS: No gross abnormality. LYMPH NODES: Para-aortic lymph nodes redemonstrated measuring up to 1.1 cm unchanged from prior study . Left internal iliac chain lymph node is also unchanged at 1.1 cm versus 1.1 cm. Stable 1 cm right i nguinal lymph node. AORTA: No significant abnormality. OSSEOUS STRUCTURES: No significant abnormality is seen. OTHER: Fat-containing anterior abdominal wall hernia. IMPRESSION: 1. Stable retroperitoneal adenopathy.
== END | disposition home or self-care (01) ==
LOC: RADCTMAIN 13:41
PROVIDERS: ATTEND Internal Medicine Hematology & Oncology
DX: R59.0 Localized enlarged lymph nodes (principal)
CPT/HCPCS: 82565; 84520; 71260; 74177; 36415; Q9967

== ENCOUNTER 2019-07-08 13:50 | Inpatient (IN) | payer MEDICARE, OTHER ==
--- NOTE | 2019-07-08 15:00 | ED ---
General Adult HPI - General Chief complaint: Extremity Problem,Nontraumatic Stated complaint: poss infected wound Time Seen by Provider: 07/08/19 13:55 Source: patient, RN notes reviewed, old records reviewed Mode of arrival: wheelchair Limitations: no limitations - History of Present Illness Initial comments: This is a 63-year-old female who presents emergency Department complaining of an infection on the heel and on the tip of the second toe. According to her there was pus coming out of the toe and she was sent in by Dr. Danielson to be evaluated. Patient states there is no increased pain. There is no increased erythema. Patient denies any fever patient denies any chills. Patient states she has no other complaints. - Related Data Home Medications Medication Instructions Recorded Confirmed Levothyroxine Sodium [Synthroid] 100 mcg PO DAILY 08/29/13 05/05/19 Atorvastatin Calcium [Lipitor] 10 mg PO HS 10/06/18 05/05/19 Pregabalin [Lyrica] 100 mg PO TID 02/03/19 05/05/19 HYDROcodone/APAP 7.5-325MG [[place] 1 tab PO Q6H PRN 03/18/19 05/05/19 7.5-325] Lisinopril [Zestril] 20 mg PO BID 03/18/19 05/05/19 amLODIPine [Norvasc] 5 mg PO DAILY 05/05/19 05/05/19 Previous Rx's Medication Instructions Recorded Piperacillin-Tazobactam [Zosyn] 3.375 gm IVPB Q6H #84 bag 04/14/19 DAPTOmycin [Cubicin] 850 mg IV DAILY #28 bag 05/09/19 Allergies Allergy/AdvReac Type Severity Reaction Status Date / Time Sulfa (Sulfonamide Allergy Rash/Hives Verified 07/08/19 13:55 Antibiotics) Review of Systems ROS Statement: Those systems with pertinent positive or pertinent negative responses have been documented in the HPI. ROS Other: All systems not noted in ROS Statement are negative. Past Medical History Past Medical History: Hyperlipidemia, Hypertension, Osteoarthritis (OA), Skin Disorder, Thyroid Disorder Additional Past Medical History / Comment(s): Nonambulatory/pivots to wheelchair normally, low back pain, neuropathy bilateral feet, chronic venous stasis, current L heel/L posterior yost/left second toe wounds, L 2nd toe osteomyelitis, bilateral leg cellulitis, past L foot ulcer, lymphedema bilateral legs, DJD, past R ankle fracture x3, UTIs, stress incontinence, chronic anemia, umbilical hernia, hypothyroid, pyodema gangrenosum. History of Any Multi-Drug Resistant Organisms: MRSA, Other MDRO, VRE Date of last positivie culture/infection: 05/06/19-VRE MDRO Source:: Left Foot-VRE, Left Foot and Leg MRSA & MDRO Past Surgical History: Section, Cholecystectomy, Orthopedic Surgery, Tubal Ligation Additional Past Surgical History / Comment(s): L leg I&D, bilateral knee arthroscopies, L great toe amp d/t nonhealing wound, PICCS, midlines, D&Cs Past Anesthesia/Blood Transfusion Reactions: Previous Problems w/ Anesthesia Additional Past Anesthesia/Blood Transfusion Reaction / Comment(s): slow to come out of it/muscle weakness Past Psychological History: No Psychological Hx Reported Smoking Status: Former smoker Past Alcohol Use History: None Reported Past Drug Use History: None Reported - Past Family History Father Family Medical History: Cancer, Coronary Artery Disease (CAD), Myocardial Infarction (RI), Prostate Disorder Additional Family Medical History / Comment(s): Prostate CA. Father in a MVA at the age of 80yrs. Mother Family Medical History: Cancer, CVA/TIA, Hyperlipidemia Additional Family Medical History / Comment(s): Lung CA-left lobe removed. Mother is 87yrs old. General Exam - General Exam Comments Initial Comments: GENERAL Patient is well-developed and well-nourished. Patient is in mild distress. EYES Patient's pupils are equal and round. Extraocular motion is intact SKIN Unremarkable NEURO The patient is alert and oriented 3 PYSCH Patient has normal interpersonal interactions. MUSCULOSKELETAL Patient's wound at the tip of the second toe on the left has pus coming from the tip of it a culture was done. There is a wound on the heel that does not appear to have any signs of infection. Limitations: no limitations Course Vital Signs 07/08/19 07/08/19 13:52 15:38 Temperature 97.9 F Pulse Rate 83 68 Respiratory 16 18 Rate Blood Pressure 124/73 102/50 O2 Sat by Pulse 99 96 Oximetry Medical Decision Making - Medical Decision Making I spoke with Dr. Danielson he wanted the patient admitted if there is any sense vasculitis the x-ray showed that there could be possible osteomyelitis so I admitted the patient started antibiotics. - Lab Data Result diagrams: 07/08/19 15:26 07/08/19 15: Lab Results 07/08/19 07/08/19 Range/Units 15:26 15:26 WBC 5.0 (3.8-10.6) k/uL RBC 3.52 L (3.80-5.40) m/uL Hgb 10.3 L (11.4-16.0) gm/dL Hct 31.7 L (34.0-46.0) % MCV 90.1 (80.0-100.0) fL MCH 29.4 (25.0-35.0) pg MCHC 32.7 (31.0-37.0) g/dL RDW 14.4 (11.5-15.5) % Plt Count 122 L (150-450) k/uL Neutrophils % 78 % Lymphocytes % 12 % Monocytes % 6 % Eosinophils % 1 % Basophils % 0 % Neutrophils # 3.9 (1.3-7.7) k/uL Lymphocytes # 0.6 L (1.0-4.8) k/uL Monocytes # 0.3 (0-1.0) k/uL Eosinophils # 0.1 (0-0.7) k/uL Basophils # 0.0 (0-0.2) k/uL Sodium 141 (137-145) mmol/L Potassium 4.3 (3.5-5.1) mmol/L Chloride 108 H (98-107) mmol/L Carbon Dioxide 27 (22-30) mmol/L Anion Gap 6 mmol/L BUN 18 H (7-17) mg/dL Creatinine 0.70 (0.52-1.04) mg/dL Est GFR (CKD-EPI)AfAm >90 (>60 ml/min/1.73 sqM) Est GFR (CKD-EPI)NonAf >90 (>60 ml/min/1.73 sqM) Glucose 82 (74-99) mg/dL Calcium 9.7 (8.4-10.2) mg/dL Total Bilirubin 0.3 (0.2-1.3) mg/dL AST 22 (14-36) U/L ALT 10 (4-34) U/L Alkaline Phosphatase 138 H (38-126) U/L Total Protein 6.5 (6.3-8.2) g/dL Albumin 3.8 (3.5-5.0) g/dL Disposition Clinical Impression: Infected wound, Osteomyelitis Disposition: ADMITTED IP TO THIS HOSP Referrals: Adonis Mcfarlane DO [Primary Care Provider] - 1-2 days Time of Disposition: 16:29
--- NOTE | 2019-07-08 15:23 | XR ---
EXAMINATION TYPE: XR foot complete LT DATE OF EXAM: 07/08/2019 CLINICAL HISTORY: Left foot pain with osteomyelitis TECHNIQUE: Frontal, lateral, and oblique images of the left foot are obtained. COMPARISON: None FINDINGS: No acute fracture or dislocation of the left foot. Diffuse osseous demineralization. Amputa tion of the first phalanx and distal first metatarsal. There is some irregularity of the distal first metatarsal with overlying soft tissue swelling. Soft tissue swelling is most pronounced dorsally. Fl exion deformities of the distal interphalangeal joints limiting evaluation. The distal christian of the s econd through third digits appears slightly eroded. Small vessel atherosclerosis is seen. Moderate pl cheryl heel spur. IMPRESSION: In addition to irregularity of the partially amputated distal first metatarsal with overlying soft ti ssue swelling concerning for osteomyelitis there is some erosion of the second through fourth distal phalangeal christian. Correlate for multifocal osteomyelitis.
[2019-07-08 15:47] LABS: Basophils % (A) 0 %; Eosinophils # (A) 0.1 k/uL (0-0.7); Eosinophils % (A) 1 %; HCT 31.7 % (34.0-46.0); HGB 10.3 gm/dL (11.4-16.0); Lymphocytes # (A) 0.6 k/uL (1.0-4.8); Lymphocytes % (A) 12 %; MCH 29.4 pg (25.0-35.0); MCHC 32.7 g/dL (31.0-37.0); MCV 90.1 fL (80.0-100.0); Mean Platelet Volume 9.9; Monocytes # (A) 0.3 k/uL (0-1.0); Monocytes % (A) 6 %; Neutrophils # (A) 3.9 k/uL (1.3-7.7); Neutrophils % (A) 78 %; Platelet Count 122 k/uL (150-450); RBC 3.52 m/uL (3.80-5.40); RDW 14.4 % (11.5-15.5)
[2019-07-08 15:51] LABS: ALT 10 U/L (4-34); AST 22 U/L (14-36); African American GFR (CKD) >90 (>60 ml/min/1.73 sqM); Albumin 3.8 g/dL (3.5-5.0); Alkaline Phosphatase 138 U/L (38-126); Anion Gap 6 mmol/L; Blood Urea Nitrogen 18 mg/dL (7-17); Calcium 9.7 mg/dL (8.4-10.2); Carbon Dioxide 27 mmol/L (22-30); Chloride 108 mmol/L (98-107); Glucose 82 mg/dL (74-99); Non-African American GFR(CKD) >90 (>60 ml/min/1.73 sqM); Potassium 4.3 mmol/L (3.5-5.1); Sodium 141 mmol/L (137-145); Total Bilirubin 0.3 mg/dL (0.2-1.3); Total Protein 6.5 g/dL (6.3-8.2)
[2019-07-08] MEDS ORDERED: LEVOFLOXACIN 750MG-D5W PMX 750 MG in DEXTROSE/WATER 1 150ML.BAG IVPB STA (16:29)
[2019-07-08] MEDS ORDERED: SODIUM CHLORIDE 0.9% 1,000 ML IV ONE (16:30)
[2019-07-08] MEDS ORDERED: MORPHINE SULFATE 4 MG/ML SYRINGE IVP STA (17:27)
[2019-07-08] MEDS ORDERED: amLODIPine 5 MG TAB PO PRN (20:30)
[2019-07-08] MEDS ORDERED: ACETAMINOPHEN TAB 500 MG TAB PO PRN (20:31)
[2019-07-08] MEDS: LISINOPRIL 20 MG TAB PO SCH (21:20)
[2019-07-08] MEDS: HEPARIN SODIUM,PORCINE 5,000 UNIT/ML 1 ML VIAL SQ SCH (21:31)
[2019-07-08] MEDS: PREGABALIN 100 MG CAP PO SCH (21:31)
[2019-07-08] MEDS: ATORVASTATIN 10 MG TAB PO SCH (21:31)
--- NOTE | 2019-07-08 22:31 | HP ---
HISTORY AND PHYSICAL . DATE OF SERVICE: 07/08/2019 CHIEF COMPLAINT: Infected wound on the left foot. HISTORY OF PRESENT ILLNESS: This 63-year-old woman with a past medical history of multiple medical problems including hypertension, hyperlipidemia, DJD, hypothyroidism, history of nonambulatory attributing to wheelchair, DJD being followed with Dr. Mcfarlane and Dr. Danielson in the outpatient setting, previously had nonhealing ulcers in PICC line. Patient had amputation of the big toe on the left foot. The patient is complaining of a second toe ulcer and also behind the lower part of the leg and as well as left heel. The patient came to [facility] and in the ER, the patient had foot x-ray which revealed soft tissue swelling and concern for osteomyelitis of the 2nd toe. Patient admitted to the hospital for further evaluation and treatment. There is no history of fever, rigors or chills. No history of headache, loss of consciousness, seizures at this time. PAST MEDICAL HISTORY: Hypertension, DJD, hypothyroidism, history of nonambulatory MDR VRE. MEDICATIONS: Home medications are: 1. Lyrica 100 mg p.o. t.i.d. 2. Zestril 20 mg p.o. b.i.d. 3. Synthroid 100 mg p.o. daily. 4. [place] 7.5 q.6h p.r.n. 5. Norvasc 5 mg daily. 6. Lipitor 10 mg q.h.s. ALLERGIES: SULFA. FAMILY HISTORY: History of cancer, CAD, myocardial infarction, prostate disorder, motor vehicle accident. SOCIAL HISTORY: Previous history of smoking. No history of current smoking or alcohol intake. REVIEW OF SYSTEMS: ENT: No diminished vision. No diminished hearing. Cardio system: No angina or palpitations. RESPIRATIONS: No cough or hemoptysis. GI no nausea or vomiting. no dysuria or hematuria. Nervous system: No numbness or weakness. ALLERGY/IMMUNOLOGY: No asthma or hayfever. MUSCULOSKELETAL as mentioned earlier. HEMATOLOGY/ONCOLOGY: No history of anemia. ENDOCRINE: No history of diabetes or hypothyroidism. CONSTITUTIONAL: As mentioned earlier. DERMATOLOGY as mentioned earlier. RHEUMATOLOGY: Negative. PSYCHIATRIC: As mentioned earlier. PHYSICAL EXAM: Patient is alert, oriented x3, pulse 75, blood pressure 106/58, respiration 18, temperature 97.9, pulse ox 98% on room air. HEENT: Conjunctivae normal. NECK: No jugular venous distention. CARDIOVASCULAR: S1, S2 muffled. RESPIRATORY SYSTEM: Breath sounds diminished at the bases. A few scattered rhonchi and crackles. ABDOMEN: Soft, obese, nontender. LEGS: Left leg ulcer pulses present, multiple ulcers as described earlier, stage II. NERVOUS SYSTEM: Higher functions as mentioned. Moves all four limbs. Sensations diminished. Joints: No active deforming arthropathy. SKIN: As mentioned earlier. LABS: WBC 5, hemoglobin 10.3, sodium 140, potassium 4.3. ASSESSMENT: 1. Nonhealing ulcers of the second toe with possible acute osteomyelitis. 2. Multiple ulcerations on the left foot. 3. Hypertension. 4. Hyperlipidemia. 5. History of degenerative joint disease. 6. Hypothyroid. 7. Nonambulatory. 8. Chronic venous stasis. 9. History of osteomyelitis, second toe. 10.History of cellulitis. 11.History of urinary tract infections. 12.History of anemia. 13.History of umbilical hernia. 14.History of hypothyroidism. 15.History of MRSA, MDRO VRE Pseudomonas. 16.History of status section. 17.History of cholecystectomy. 18.Remote history of nicotine dependence. 19.Obesity with body mass of 41.8. RECOMMENDATIONS AND DISCUSSION: This 63-year-old woman who presented with multiple complex medical issues, at this time, I recommend to continue the current medications, management and symptomatic treatment. Broad-spectrum IV antibiotics. The patient has MULTIPLE ALLERGIES. I would recommend infectious disease evaluation as well as vascular surgery evaluation. Otherwise local treatment cultures. Resume the home medications. Guarded prognosis because of multiple complex medical issues. A copy of dictation is being forwarded to Dr. Mcfarlane who is the primary physician. MMODL / IJN: [id number] /
[2019-07-09] MEDS: PIPERACILLIN-TAZOBACTAM 3.375 GM in SODIUM CHLORIDE 0.9% 100 ML IVPB SCH ×4 (00:44→23:51)
[2019-07-09] MEDS: HYDROcodone/APAP 7.5-325MG 1 EACH TAB PO PRN ×2 (00:46→16:16)
[2019-07-09] MEDS: LEVOTHYROXINE 100 MCG TAB PO SCH (05:58)
[2019-07-09 06:05] LABS: Basophils % (A) 0 %; Eosinophils # (A) 0.1 k/uL (0-0.7); Eosinophils % (A) 2 %; HCT 28.5 % (34.0-46.0); HGB 9.4 gm/dL (11.4-16.0); Lymphocytes # (A) 0.6 k/uL (1.0-4.8); Lymphocytes % (A) 23 %; MCH 30.1 pg (25.0-35.0); MCHC 33.1 g/dL (31.0-37.0); MCV 91.1 fL (80.0-100.0); Mean Platelet Volume 10.1; Monocytes # (A) 0.2 k/uL (0-1.0); Monocytes % (A) 8 %; Neutrophils # (A) 1.8 k/uL (1.3-7.7); Neutrophils % (A) 64 %; Platelet Count 100 k/uL (150-450); RBC 3.13 m/uL (3.80-5.40); RDW 14.4 % (11.5-15.5); WBC 2.7 k/uL (3.8-10.6)
[2019-07-09 06:23] LABS: African American GFR (CKD) >90 (>60 ml/min/1.73 sqM); Anion Gap 0 mmol/L; Blood Urea Nitrogen 16 mg/dL (7-17); Calcium 8.7 mg/dL (8.4-10.2); Carbon Dioxide 28 mmol/L (22-30); Chloride 109 mmol/L (98-107); Glucose 83 mg/dL (74-99); Non-African American GFR(CKD) >90 (>60 ml/min/1.73 sqM); Potassium 4.2 mmol/L (3.5-5.1); Sodium 137 mmol/L (137-145)
[2019-07-09 09:51] LABS: Appearance,Urine Clear (Clear); Bilirubin,Urine Negative (Negative); Blood,Urine Negative (Negative); Color,Urine Light Yellow; Glucose,Urine (UA) Negative (Negative); Ketones,Urine Negative (Negative); Leukocyte Esterase,Urine Negative (Negative); Nitrite,Urine Negative (Negative); PH, Urine 5.5 (5.0-8.0); Protein,Urine Negative (Negative); Specific Gravity,Urine 1.019 (1.001-1.035); Urobilinogen,Urine <2.0 mg/dL (<2.0)
[2019-07-09] MEDS: PREGABALIN 100 MG CAP PO SCH ×3 (10:15→21:11)
[2019-07-09] MEDS: LISINOPRIL 20 MG TAB PO SCH ×2 (11:44→21:11)
[2019-07-09] MEDS: HEPARIN SODIUM,PORCINE 5,000 UNIT/ML 1 ML VIAL SQ SCH ×2 (11:44→21:11)
--- NOTE | 2019-07-09 11:44 | ECHOF ---
Referral Reason:chest pain MEASUREMENTS -------- HEIGHT: 172.7 cm WEIGHT: 127.0 kg BP: RVIDd: 3.8 cm (< 3.3) IVSd: 1.1 cm (0.6 - 1.1) LVIDd: 4.9 cm (3.9 - 5.3) LVPWd: 1.3 cm (0.6 - 1.1) IVSs: 1.4 cm LVIDs: 2.6 cm LVPWs: 1.7 cm LA Diam: 4.3 cm (2.7 - 3.8) LAESV Index (A-L): 26.38 ml/m Ao Diam: 3.0 cm (2.0 - 3.7) AV Cusp: 1.8 cm (1.5 - 2.6) LA Diam: 4.7 cm (2.7 - 3.8) MV E Nestor: 0.98 m/s MV DecT: 191 ms MV A Nestor: 1.06 m/s MV E/A Ratio: 0.92 AV maxP.91 mmHg AV maxP.91 mmHg AV meanP.82 mmHg FINDINGS -------- Sinus rhythm. This was a technically good study. Morbid Obesity The left ventricular size is normal. There is borderline concentric left ventricular hypertrophy. Overall left ventricular systolic function is normal with, an EF between 55 - 60 %. The right ventricle is mildly enlarged. The left atrium is moderately dilated. The right atrial size is normal. There is mild aortic stenosis present. Peak/mean gradient across the Aortic Valve is 14.91mmHg / 7. 82mmHg. Mild mitral annular calcification present. Mild mitral regurgitation is present. Mild tricuspid regurgitation present. Right ventricular systolic pressure is normal at < 35 mmHg. There is no evidence of pulmonary hypertension. There is no pulmonic regurgitation present. The aortic root size is normal. There is no pericardial effusion. CONCLUSIONS -------- 1. Sinus rhythm. 2. This was a technically good study. 3. Morbid Obesity 4. The left ventricular size is normal. 5. There is borderline concentric left ventricular hypertrophy. 6. Overall left ventricular systolic function is normal with, an EF between 55 - 60 %. 7. The right ventricle is mildly enlarged. 8. The left atrium is moderately dilated. 9. The right atrial size is normal. 10. There is mild aortic stenosis present. 11. Peak/mean gradient across the Aortic Valve is 14.91mmHg / 7.82mmHg. 12. Mild mitral annular calcification present. 13. Mild mitral regurgitation is present. 14. Mild tricuspid regurgitation present. 15. Right ventricular systolic pressure is normal at < 35 mmHg. 16. There is no evidence of pulmonary hypertension. 17. There is no pulmonic regurgitation present. 18. The aortic root size is normal. 19. There is no pericardial effusion. BIOTECHNICIAN: Tova Rainey RDCS
[2019-07-09] MEDS: MULTIVITAMINS, THERA 1 EACH TAB PO SCH (11:45)
[2019-07-09] MEDS: PANTOPRAZOLE 40 MG TABLET PO SCH (11:45)
--- NOTE | 2019-07-09 12:23 | CONS ---
CONSULTATION CHIEF COMPLAINT: Chest pain. This is a 63-year-old lady who was admitted to hospital with an infected toe for possible osteomyelitis, and Cardiology has been consulted because of vague chest pain. The patient states that she came to the ER with questionable osteomyelitis, and while in the ER she had some sharp pain in the epigastric area. It was mild in intensity, not associated with diaphoresis. No shortness of breath. It has gradually resolved. At the time of my evaluation, the patient appears comfortable at rest and is free of symptoms. I do not see an EKG on her, but patient had cardiac enzymes and they have all been within normal limits. She is anemic with a hemoglobin of 9.4 and her white cell count is also low. PAST MEDICAL HISTORY: Significant for hypertension, hypothyroidism, dyslipidemia. MEDICATIONS: Medications include Lyrica 100 t.i.d., Zestril 20 b.i.d., Synthroid, [place], Norvasc and Lipitor. ALLERGIES: SULFA. FAMILY HISTORY: Negative for premature coronary artery disease. SOCIAL HISTORY: She denies current smoking, EtOH abuse or drug abuse. REVIEW OF SYSTEMS: HEENT is unremarkable. CARDIAC: As described above. RESPIRATORY: As described above. GI: Negative. GENITOURINARY: Negative. ALLERGY: Negative. IMMUNOLOGY: Negative. SKIN: Significant for ulceration. MUSCULOSKELETAL: Questionable osteomyelitis. PHYSICAL EXAMINATION: Comfortable at rest. Vital signs are stable. There is no jugular venous distention. Chest exam reveals good air entry bilaterally. Heart exam reveals first and second heart sounds. No gallop. I do not hear any murmur. Abdomen is soft. Examination of extremities reveals a left leg ulcer. LABS: Labs showed that the troponins are negative. EKG is not available. ASSESSMENT: 1. Atypical chest pain. 2. Nonhealing ulcers with possible osteomyelitis. 3. Hypertension. 4. Dyslipidemia. PLAN: I will obtain a 2D echo to evaluate LV function and wall motion. MMODL / IJN: [id number] /
[2019-07-09 12:57] VITALS: BMI 42.5
--- NOTE | 2019-07-09 13:51 | CONS ---
CONSULTATION This is a 63-year-old white female. The patient is known to me from the wound clinic. The patient has history of obesity, peripheral vascular disease, diabetes. The patient has been coming to the wound clinic for local wound care. The patient noticed some left foot second toe drainage. The patient has been admitted for IV antibiotic. The patient also has a pressure ulcer on the heel and the lateral aspect of the calf. The base of the wound is clean and granulating. SURGICAL HISTORY: Patient had a left big toe amputation in the past. PHYSICAL EXAMINATION: Patient was seen in her room, lying comfortably in bed. NECK: Supple. Trachea central. CHEST: Clear. Femoral pulses are present, PT and DP by the Doppler. Left foot second toe at the nailbed has slight drainage. Culture has been taken. The patient will be on IV antibiotic and we will use Santyl cream for the pressure ulcer on the heel and lateral aspect of the foot. If the patient goes home on the weekend, patient will be followed in the wound clinic. Will continue with local wound care. At this point, no surgical intervention is needed. MMODL / IJN: [id number] /
--- NOTE | 2019-07-09 14:05 | NM ---
EXAMINATION TYPE: NM bone 3 phase DATE OF EXAM: 07/09/2019 COMPARISON: X-rays of 07/08/2019 HISTORY: Assess for osteomyelitis of the second toe of the left foot Triple phase bone scintigraphy was performed following the injection of 25.8 mCi Tc 99m MDP. Immedia te images and 4.5 hours post injection images acquired. FINDINGS: Are slightly asymmetric flow to the left foot and abnormal blood pool to the left foot. Delayed image s however demonstrate multifocal uptake throughout the mid feet and hindfeet as well as some focal up take of the distal first metatarsal at the amputation site and second distal phalanx. IMPRESSION: Findings and comminution with prior radiographs suggest osteomyelitis of the distal first metatarsal at the amputation site and second distal phalanx of the left foot as well as arthropathy of the hindf eet and mid feet.
[2019-07-09] MEDS: COLLAGENASE 250 UNIT/GM OINTMENT 30 GM TUBE TOPICAL SCH (14:25)
[2019-07-09] MEDS ORDERED: LEVOFLOXACIN 750MG-D5W PMX 750 MG in DEXTROSE/WATER 1 150ML.BAG IVPB SCH (16:00)
--- NOTE | 2019-07-09 17:18 | PN ---
PROGRESS NOTE DATE OF SERVICE: 07/09/2019 This 63-year-old woman who was admitted with infected nonhealing ulcer and infected wound of the second toe is being closely monitored. The bone scan showed possible osteomyelitis. Patient also had a 2D echo with Doppler which was read by Cardiology. It showed ejection fraction about 55% to 60% and mild valvular abnormalities. No chest pain. No palpitations. No fever. PHYSICAL EXAMINATION: Alert and oriented x3. Pulse is 69, blood pressure 135/60, respiration 20, temperature 97.6, pulse ox 94% on room air. HEENT: Conjunctivae normal. NECK: No jugular venous distention. CARDIOVASCULAR SYSTEM: S1, S2 muffled. RESPIRATORY SYSTEM: Breath sounds diminished at the bases. A few rhonchi. No crackles. ABDOMEN: Soft. LEGS: Infection present. LABS: WBC 2.6, hemoglobin 9.4, platelets 100. ASSESSMENT: 1. Nonhealing ulcer of the second toe with possible acute osteomyelitis. 2. Multiple ulcerations of the left foot. 3. Hypertension. 4. Hyperlipidemia. 5. History of degenerative joint disease. 6. Mild pancytopenia of undetermined etiology. 7. Anemia, normocytic. 8. Thrombocytopenia. 9. History of degenerative joint disease. 10.Hypothyroidism. 11.Nonambulatory. 12.Chronic venostasis. 13.History of osteomyelitis of second toe previously. 14.History of cellulitis. 15.History of urinary tract infection. 16.Anemia. 17.History of umbilical hernia. 18.History of hypothyroidism. 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 20.History of section. 21.History of cholecystectomy. 22.Remote history of nicotine dependence. 23.Obesity with body mass index of 41.8. RECOMMENDATIONS AND DISCUSSION: I recommend to continue current medications, continue symptomatic treatment. Continue the antibiotics. Follow the cultures. Closely follow with Infectious Disease and Vascular. Guarded prognosis because of multiple complex medical issues. The patient might require midline and prolonged antibiotic. Bone scan reviewed, as mentioned earlier. Further recommendations to follow. MMODL / IJN: [id number] /
[2019-07-09] MEDS: ATORVASTATIN 10 MG TAB PO SCH (21:11)
--- NOTE | 2019-07-10 00:04 | P.CONS ---
History of Present Illness - Reason for Consult Consult date: 07/09/19 left 2nd toe abscess Requesting physician: Wagner Howe - Chief Complaint left 2nd toe pus draiange x few days - History of Present Illness Patient is a 63-year-old female who was sent to the ER by the home care nurse after apparently the patient was noticed to have some purulent drainage left second toe that was noticed by the home care nurse on Thursday the patient was advised to follow-up with physician she had a lump following up on Thursday subsequently patient was admitted to the hospital patient denies any history of trauma to the left second toe patient did have some dull aching pain to the toe especially when it is pressed on or touch the some swelling, no significant redness patient denies high-grade fever or chills with this symptom the patient was evaluated by the ER physician on arrival to the ER the patient did have x-rays which did shows partial amputation distal first metatarsal soft tissue swelling concerning for osteomyelitis separation of the second through fourth distal phalangeal christian a bone scan has been ordered which has been s uggestive of osteomyelitis of the distal first metatarsal and the sacral distal phalanx patient did have local cultures which are currently pending patient is currently being treated empirically with Zosyn infectious was consulted for further recommendation about antibiotic therapy Review of Systems Positive point has been mentioned HPI rest of the systems are negative Past Medical History Past Medical History: Hyperlipidemia, Hypertension, Osteoarthritis (OA), Skin Disorder, Thyroid Disorder Additional Past Medical History / Comment(s): Nonambulatory/pivots to wheelchair normally, low back pain, neuropathy bilateral feet, chronic venous stasis, current L heel/L posterior yost/left second toe wounds, L 2nd toe osteomyelitis, bilateral leg cellulitis, past L foot ulcer, lymphedema bilateral legs, DJD, past R ankle fracture x3, UTIs, stress incontinence, chronic anemia, umbilical hernia, hypothyroid, pyodema gangrenosum. History of Any Multi-Drug Resistant Organisms: MRSA, VRE Year Discovered:: 05/06/19-VRE MDRO Source:: Left Foot-VRE, Left Foot and Leg MRSA Past Surgical History: Section, Cholecystectomy, Orthopedic Surgery, Tubal Ligation Additional Past Surgical History / Comment(s): L leg I&D, bilateral knee arthroscopies, L great toe amp d/t nonhealing wound, PICCS, midlines, D&Cs Past Anesthesia/Blood Transfusion Reactions: Previous Problems w/ Anesthesia Additional Past Anesthesia/Blood Transfusion Reaction / Comm: Slow to come out of it/muscle weakness Past Psychological History: No Psychological Hx Reported Additional Psychological History / Comment(s): Pt states she normally can pivot to wheelchair. She has [facility]. She receives meals on wheels. She gets rides thru [employer]. 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 No tr jefe. No experience. No animals in the home. Smoking Status: Former smoker Past Alcohol Use History: None Reported Additional Past Alcohol Use History / Comment(s): Pt started smoking in 1970 and quit in 1990. Past Drug Use History: None Reported - Past Family History Father Family Medical History: Cancer, Coronary Artery Disease (CAD), Myocardial Infarction (MT), Prostate Disorder Additional Family Medical History / Comment(s): Prostate CA. Father in a MVA at the age of 80yrs. Mother Family Medical History: Cancer, CVA/TIA, Hyperlipidemia Additional Family Medical History / Comment(s): Lung CA-left lobe removed. Medications and Allergies Home Medications Medication Instructions Recorded Confirmed Type Levothyroxine Sodium [Synthroid] 100 mcg PO DAILY 08/29/13 07/08/19 History Atorvastatin Calcium [Lipitor] 10 mg PO HS 10/06/18 07/08/19 History Pregabalin [Lyrica] 100 mg PO TID 02/03/19 07/08/19 History HYDROcodone/APAP 7.5-325MG [[place] 1 tab PO Q6H PRN 03/18/19 07/08/19 History 7.5-325] Lisinopril [Zestril] 20 mg PO BID 03/18/19 07/08/19 History amLODIPine [Norvasc] 5 mg PO DAILY PRN 05/05/19 07/08/19 History Allergies Allergy/AdvReac Type Severity Reaction Status Date / Time Sulfa (Sulfonamide Allergy Rash/Hives Verified 07/08/19 18:54 Antibiotics) Physical Exam Vitals: Vital Signs Temp Pulse Resp BP BP Pulse Ox 07/09/19 19:52 97.5 F L 68 17 142/69 98 07/09/19 15:37 69 20 07/09/19 12:34 97.6 F 69 20 135/60 94 L 07/09/19 12:23 62 18 07/09/19 09:40 62 18 07/09/19 04:38 97.9 F 62 18 110/52 96 Intake and Output 07/09/19 07/09/19 07/10/19 14:59 22:59 06:59 Intake Total 240 600 Balance 240 600 Intake: Oral 240 600 Other: Voiding Method Bedpan Bedpan Diaper Diaper Incontinent Incontinent # Voids 4 4 # Bowel Movements 1 Weight 127.006 kg GENERAL DESCRIPTION: Middle-aged female lying in bed, no distress. No tachypnea or accessory muscle of respiration use. HEENT: Shows Pallor , no scleral icterus. Oral mucous membrane is dry. No pharyngeal erythema or thrush NECK: Trachea central, no thyromegaly. LUNGS: Unlabored breathing. Clear to auscultation anteriorly. No wheeze or crackle. HEART: S1, S2, regular rate and rhythm. No loud murmur ABDOMEN: Soft, no tenderness , guarding or rigidity, no organomegaly EXTREMITIES: Diffuse swelling of the leg she noticed to have purulent drainage from her left second toe patient also have wound on the plantar aspect of the left foot which is mostly superficial with no soft tissue surrounding swelling but no redness. SKIN: No rash, no masses palpable. NEUROLOGICAL: The patient is awake, alert, oriented x3, mood and affect normal. Results CBC & Chem 7: 07/09/19 05:27 07/09/19 05:27 Labs: Abnormal Lab Results - Last 24 Hours (Table) 07/09/19 07/09/19 Range/Units 05:27 05:27 WBC 2.7 L (3.8-10.6) k/uL RBC 3.13 L (3.80-5.40) m/uL Hgb 9.4 L (11.4-16.0) gm/dL Hct 28.5 L (34.0-46.0) % Plt Count 100 L (150-450) k/uL Lymphocytes # 0.6 L (1.0-4.8) k/uL Chloride 109 H (98-107) mmol/L Microbiology - Last 24 Hours (Table) 07/08/19 15:50 Blood Culture - Preliminary Blood No Growth after 24 hours 07/08/19 15:26 Gram Stain - Preliminary Foot - Right Wound Culture - Preliminary Gram Neg Bacilli 07/08/19 22:00 Gram Stain - Preliminary Toe - Left Second Wound Culture - Preliminary 07/08/19 22:00 Gram Stain - Preliminary Foot - Left Wound Culture - Preliminary 07/08/19 22:00 Gram Stain - Preliminary Leg - Left Wound Culture - Preliminary Assessment and Plan Assessment: patient with left second toe diabetic foot infection with evidence of purulent drainage and underlying osteomyelitis will need to cover for the mixed sherman associated with this type of infection (1) Toe osteomyelitis, left Current Visit: Yes Status: Acute Code(s): M86.9 - OSTEOMYELITIS, UNSPECIFIED SNOMED Code(s): 9194404139568609 Plan: 1-Zosyn 3.375 g every 8 hour 2-Aquacel silver dressing to the left foot plantar wound and a dry dressing to the second toe to be changed daily We will follow on clinical condition and cultures to further adjust medication if needed Thank you for this consultation will follow this patient along with you Time with Patient: Greater than 30
[2019-07-10] MEDS: ALPRAZolam 0.25 MG TAB PO PRN (00:43)
[2019-07-10] MEDS: LEVOTHYROXINE 100 MCG TAB PO SCH (05:47)
[2019-07-10 07:18] LABS: African American GFR (CKD) >90 (>60 ml/min/1.73 sqM); Anion Gap 6 mmol/L; Blood Urea Nitrogen 14 mg/dL (7-17); Calcium 8.8 mg/dL (8.4-10.2); Carbon Dioxide 25 mmol/L (22-30); Chloride 110 mmol/L (98-107); Glucose 90 mg/dL (74-99); Non-African American GFR(CKD) 88 (>60 ml/min/1.73 sqM); Potassium 3.9 mmol/L (3.5-5.1); Sodium 141 mmol/L (137-145)
[2019-07-10 08:06] LABS: Basophils % (A) 0 %; Eosinophils # (A) 0.1 k/uL (0-0.7); Eosinophils % (A) 3 %; HCT 27.2 % (34.0-46.0); HGB 8.7 gm/dL (11.4-16.0); Lymphocytes # (A) 0.6 k/uL (1.0-4.8); Lymphocytes % (A) 19 %; MCV 90.4 fL (80.0-100.0); Mean Platelet Volume 10.7; Monocytes # (A) 0.3 k/uL (0-1.0); Monocytes % (A) 9 %; Neutrophils # (A) 2.2 k/uL (1.3-7.7); Neutrophils % (A) 67 %; Platelet Count 103 k/uL (150-450); RBC 3.01 m/uL (3.80-5.40); RDW 14.4 % (11.5-15.5); WBC 3.3 k/uL (3.8-10.6)
[2019-07-10] MEDS: PANTOPRAZOLE 40 MG TABLET PO SCH (09:27)
[2019-07-10] MEDS: PIPERACILLIN-TAZOBACTAM 3.375 GM in SODIUM CHLORIDE 0.9% 100 ML IVPB SCH ×2 (09:27→16:34)
[2019-07-10] MEDS: HEPARIN SODIUM,PORCINE 5,000 UNIT/ML 1 ML VIAL SQ SCH ×2 (09:27→22:01)
[2019-07-10] MEDS: PREGABALIN 100 MG CAP PO SCH ×3 (09:27→22:00)
[2019-07-10] MEDS: LISINOPRIL 20 MG TAB PO SCH ×2 (09:27→22:00)
[2019-07-10] MEDS: MULTIVITAMINS, THERA 1 EACH TAB PO SCH (09:27)
[2019-07-10] MEDS: COLLAGENASE 250 UNIT/GM OINTMENT 30 GM TUBE TOPICAL SCH (09:50)
[2019-07-10] MEDS: HYDROcodone/APAP 7.5-325MG 1 EACH TAB PO PRN ×3 (09:52→22:00)
--- NOTE | 2019-07-10 11:12 | PN ---
PROGRESS NOTE 63-year-old lady is admitted to hospital with osteomyelitis and we were consulted because of an episode of chest pain. Her chest discomfort was sharp, atypical and has gradually resolved. This morning, at the time of my evaluation, she appears comfortable at rest and is free of symptoms. She is on Norvasc 5 daily, Lipitor, Zestril. On exam, blood pressure is elevated at 186/87, respiratory rate 18. Chest exam reveals good air entry bilaterally. Heart exam reveals first and second heart sounds. Systolic murmur at the left lower sternal border. Exam of extremities reveals left leg ulcer. Echocardiogram showed normal LV systolic function with mild aortic stenosis and bone scan is consistent with osteomyelitis. ASSESSMENT: 1. Atypical chest pain, myocardial infarction ruled out. 2. Osteomyelitis. 3. Uncontrolled hypertension. PLAN: I will increase the dose of Norvasc to 10 mg daily for more optimal blood pressure control. She will need evaluation for CAD, but this can be done after discharge with a stress test. MMODL / IJN: [id number] /
--- NOTE | 2019-07-10 19:51 | PN ---
PROGRESS NOTE DATE OF SERVICE: 07/10/2019 This 63 -year-old female was admitted with nonhealing ulcer and bone scan showed possible osteomyelitis. No chest pain. No palpitations. No fever. Patient on broad-spectrum IV antibiotics. PHYSICAL EXAM: Alert and oriented x3. Pulse 79. Blood pressure 100/50, respirations 18, temperature 97.2, pulse ox 97% on room air. HEENT: Conjunctivae normal. NECK: No JVD. CARDIOVASCULAR: S1, S2 muffled. RESPIRATORY: Breath sounds diminished in the bases. A few scattered rhonchi and crackles. ABDOMEN is soft, nontender. LEGS: No edema. Foot possible osteomyelitis. CENTRAL NERVOUS SYSTEM: No focal deficits. LAB STUDIES: WBC 3.7, hemoglobin is 8.7. ASSESSMENT: 1. Nonhealing ulcers of the second toe with possible acute osteomyelitis. 2. Multiple ulcerations of the left foot. 3. Hypertension. 4. Hyperlipidemia. 5. History of degenerative joint disease. 6. Mild pancytopenia undetermined etiology. 7. Anemia, normocytic. 8. Thrombocytopenia. 9. History of degenerative joint disease. 10.History of hypothyroidism. 11.History of nonambulatory. 12.History of chronic venous stasis. 13.History of osteomyelitis of the second toe previously. 14.History of cellulitis. 15.History of urinary tract infection. 16.Anemia. 17.History of umbilical hernia. 18.History of hypothyroidism. 19.History of MRSA, MDRO, VRE Pseudomonas. 20.History of section. 21.History of cholecystectomy. 22.Remote history of nicotine dependence. 23.Obesity with body mass index 41.8. 24.FULL CODE. RECOMMENDATIONS AND DISCUSSION: Recommend to continue current medications, management and symptomatic treatment. Wound culture showed gram-negative bacilli. Await the cultures. Otherwise, the patient on prolonged antibiotics through either midline or PICC line. Discussed with the patient. I will closely follow with Infectious Disease. Please note the patient has received multiple antibiotics previously. Patient also had previous VRE and other organisms also. MMODL / IJN: [id number] /
[2019-07-10] MEDS: TEMAZEPAM 15 MG CAP PO PRN (22:00)
[2019-07-10] MEDS: ATORVASTATIN 10 MG TAB PO SCH (22:00)
[2019-07-10] MEDS ORDERED: TOBRAMYCIN PER PHARMACY MISCELLANE SCH (23:30)
[2019-07-11] MEDS ORDERED: TOBRAMYCIN SULFATE IVPB SCH ×2
[2019-07-11] MEDS ORDERED: SODIUM CHLORIDE 0.9% IVPB SCH ×2
[2019-07-11] MEDS: LEVOTHYROXINE 100 MCG TAB PO SCH (05:35)
[2019-07-11] MEDS: HEPARIN SODIUM,PORCINE 5,000 UNIT/ML 1 ML VIAL SQ SCH ×2 (08:16→21:16)
[2019-07-11] MEDS: amLODIPine 10 MG TAB PO SCH (08:16)
[2019-07-11] MEDS: MULTIVITAMINS, THERA 1 EACH TAB PO SCH (08:16)
[2019-07-11] MEDS: PANTOPRAZOLE 40 MG TABLET PO SCH (08:16)
[2019-07-11] MEDS: PREGABALIN 100 MG CAP PO SCH ×3 (08:16→21:15)
[2019-07-11] MEDS: LISINOPRIL 20 MG TAB PO SCH ×2 (08:16→21:15)
[2019-07-11] MEDS: HYDROcodone/APAP 7.5-325MG 1 EACH TAB PO PRN ×3 (08:16→22:19)
[2019-07-11 08:57] LABS: Basophils % (A) 0 %; Eosinophils # (A) 0.1 k/uL (0-0.7); Eosinophils % (A) 2 %; HCT 30.4 % (34.0-46.0); HGB 9.5 gm/dL (11.4-16.0); Lymphocytes # (A) 0.7 k/uL (1.0-4.8); Lymphocytes % (A) 18 %; MCH 28.8 pg (25.0-35.0); MCHC 31.3 g/dL (31.0-37.0); MCV 92.2 fL (80.0-100.0); Mean Platelet Volume 9.5; Monocytes # (A) 0.3 k/uL (0-1.0); Monocytes % (A) 6 %; Neutrophils # (A) 2.9 k/uL (1.3-7.7); Neutrophils % (A) 71 %; Platelet Count 107 k/uL (150-450); RDW 14.7 % (11.5-15.5)
[2019-07-11 09:14] LABS: African American GFR (CKD) >90 (>60 ml/min/1.73 sqM); Anion Gap 5 mmol/L; Blood Urea Nitrogen 14 mg/dL (7-17); Calcium 9.1 mg/dL (8.4-10.2); Carbon Dioxide 28 mmol/L (22-30); Chloride 108 mmol/L (98-107); Glucose 94 mg/dL (74-99); Non-African American GFR(CKD) 80 (>60 ml/min/1.73 sqM); Sodium 141 mmol/L (137-145)
--- NOTE | 2019-07-11 09:46 | PN ---
PROGRESS NOTE DATE OF SERVICE: 07/10/2019 REASON FOR VISIT: Left second toe wound infection, question of osteomyelitis. INTERVAL HISTORY: The patient is currently afebrile. She is breathing comfortably. Denies having any chest pain. No cough. No nausea, no vomiting, no abdominal pain. No pain to the left 2nd area. PHYSICAL EXAMINATION: Blood pressure is 111/53 with a pulse of 76, temperature 98.1, she is 97% on room air. General description is a middle-aged female, lying in bed in no distress. RESPIRATORY SYSTEM: Unlabored breathing. Decreased breath sounds in the bases, no wheeze. HEART: S1, S2. Regular rate and rhythm. ABDOMEN: Soft, no tenderness. Left foot is currently dressed, no obvious drainage on the dressing. LABS: Hemoglobin 8.7, white count 3.3, BUN of 14, creatinine 0.73. Left second to culture finalized with multiresistant Pseudomonas aeruginosa. DIAGNOSTIC IMPRESSION AND PLAN: Patient with left second toe infection and osteomyelitis with multidrug resistant Pseudomonas. We will add clindamycin with the organism is sensitive, in view of this multi-drug resistant pattern, she will benefit from amputation rather than potentially nephrotoxic antibiotic in the setting and continue supportive care. Discussed further with the vascular surgeon on the case and continue supportive care. MMODL / IJN: [id number] /
--- NOTE | 2019-07-11 10:32 | CDI ---
Documentation Clarification Form Date: 07/11/2019 10:14:58 AM From: Olivia Valdez RN, CCDS Admit Date: 07/08/2019 04:30:00 PM Patient Name: Darling Spicer Visit Number: [id number] ATTENTION: The Clinical Documentation Specialists (CDI) and [facility] Coding Staff appreciate your assistance in clarifying documentation. Please respond to the clarification below the line at the bottom and electronically sign. The CDI & [facility] Coding staff will review the response and follow-up if needed. Please note: Queries are made part of the Legal Health Record. If you have any questions, please contact the author of this message via ITS. Dr. Wagner Howe There is conflicting information in the medical record that requires clairification from the attending. The patient has diabetes, as indicated on the 07/09/19 Vascular Consult. "Patient with left second toe diabetic foot infection with evidence of purulent drainage and underlying osteomyelitis will need to cover for the mixed sherman associated with this type of infection." 07/07 H&P: "no Hx of diabetes" History/Risk Factors: Nonhealing ulcers with possible acute osteomyelitis. Multiple ulceration on left foot, chronic venous stasis Clinical Indicators: Glucose on labs since admission 07/07-07/10: 82/83/90/94 Treatment: No Po diabetic meds or SQ insulin protocol ordered in hospital There are no Po diabetic or SQ Insulin noted on the home meds In order to capture the severity of Illness and necessary documentation specificity, please clarify: No Diabetes Diabetes ruled out DM Type 1 DM Type 2 DM due to underlying condition, specify (e.g. Cushings syndrome) Drug/chemical induced DM (document the drug/chemical) Other, please specify Unable to Determine Please document any body system complications or specific manifestations related to the diabetes: Diabetic Nephropathy Diabetic Autonomic Neuropathy Diabetic Amyotrophy Diabetic Peripheral Vascular Disease Proliferative diabetic retinopathy with macular edema Diabetic foot ulcers, specify location Ketoacidosis Hypoglycemia with or without coma Hyperglycemia Hyperosmolarity Coma/nonketotic hyperglycemic-hyperosmolar coma Other condition (Last Revision: January 2017) No Diabetes MTDD
--- NOTE | 2019-07-11 12:06 | CDI ---
Documentation Clarification Form Date: 07/11/2019 10:35:00 AM From: Olivia Valdez RN, CCDS Admit Date: 07/08/2019 04:30:00 PM Patient Name: Darling Spicer Visit Number: [id number] ATTENTION: The Clinical Documentation Specialists (CDI) and [facility] Coding Staff appreciate your assistance in clarifying documentation. Please respond to the clarification below the line at the bottom and electronically sign. The CDI & [facility] Coding staff will review the response and follow-up if needed. Please note: Queries are made part of the Legal Health Record. If you have any questions, please contact the author of this message via ITS. Dr. Wagner Howe Right posterior thigh pressure ulcer has been documented in the nursing documentation and requires clarification History/Risk Factors: Infected nonhealing ulcers of left toe, chronic venous stasis, obesity with a BMI of 41.8, MRSA, VRE MDRO, Pseudomonas Clinical Indicators: 07/07 and 07/09 Wound assessment: "Wound assessment: per nursing documentation: Pressure Injury to right lower posterior thigh, stage 2, POA with distinct wound edges and periwound excoriation and erythema. Barrier cream applied." Treatment: Barrier cream Consults: Vascular Surgery- no mention of ulcer to this location Elements for accurate and compliant documentation of an ulcer: *The location/laterality of the ulcer *Etiology (decubitus/pressure, diabetic, PVD) *Stage I-IV, Unstageable, Suspected Deep Tissue Injury (To the deepest stage) *If the ulcer was present at admission (POA) or occurred after admission In your professional opinion, can you please clarify the diagnosis, location, laterality and whether present on admission (POA): Stage 1 Pressure/Decubitus Ulcer (intact skin, non-blanching redness of local area) Stage 2 Pressure/Decubitus Ulcer (Partial thickness, loss of dermis, pink wound bed) Stage 3 Pressure/Decubitus Ulcer (Full thickness tissue loss) Stage 4 Pressure/Decubitus Ulcer (Full thickness tissue loss with exposed bone, tendon, or muscle. May have slough or eschar present) Unstageable Other condition, please specify Unable to determine Please indicate etiology of pressure ulcer (if known). (Last Revision: January 2017) Stage 2 Pressure/Decubitus Ulcer MTDD
--- NOTE | 2019-07-11 12:21 | CDI ---
Documentation Clarification Form Date: 07/11/2019 12:07:27 PM From: Olivia Valdez RN, CCDS Admit Date: 07/08/2019 04:30:00 PM Patient Name: Darling Spicer Visit Number: [id number] ATTENTION: The Clinical Documentation Specialists (CDI) and [facility] Coding Staff appreciate your assistance in clarifying documentation. Please respond to the clarification below the line at the bottom and electronically sign. The CDI & [facility] Coding staff will review the response and follow-up if needed. Please note: Queries are made part of the Legal Health Record. If you have any questions, please contact the author of this message via ITS. Dr. Wagner Howe A pressure ulcer was documented in the vascular consult and requires further clarification. History/Risk Factors: Nonhealing wounds, MDRO VRE, MRSA, Pseudomonas, chronic venostasis. Clinical Indicators: 07/08 Vascular Consult: "The patient will be on IV antibiotic and we will use Santyl cream for the Pressure ulcer on the heel and lateral aspect of the foot." 07/08/19 Nursing Wound Assessment: nonhealing wound POA, 2*2.5 with 51-75% pale pink granulation, exposed fat layer, the wound margins are thickened and rolled under, with a dry/scaly erythema tanisha-wound, moderate yellow/green drainage with a slight odor." Treatment: 07/09 Nursing Assessment: Irrigated with saline and dry gauze applied. 07/09 ID Consult: "-Zosyn 3.375 g every 8 hour 2-Aquacel silver dressing to the left foot plantar wound and a dry dressing to the second toe to be changed daily." Consults: Vascular and ID Elements for accurate and compliant documentation of an ulcer: *The location/laterality of the ulcer *Etiology (decubitus/pressure, diabetic, PVD) *Stage I-IV, Unstageable, Suspected Deep Tissue Injury (To the deepest stage) *If the ulcer was present at admission (POA) or occurred after admission In your professional opinion, can you please clarify the diagnosis, location, laterality and whether present on admission (POA): Stage 1 Pressure/Decubitus Ulcer (intact skin, non-blanching redness of local area) Stage 2 Pressure/Decubitus Ulcer (Partial thickness, loss of dermis, pink wound bed) Stage 3 Pressure/Decubitus Ulcer (Full thickness tissue loss) Stage 4 Pressure/Decubitus Ulcer (Full thickness tissue loss with exposed bone, tendon, or muscle. May have slough or eschar present) Unstageable Other condition, please specify Unable to determine Please indicate etiology of pressure ulcer (if known). (Last Revision: January 2017) Unable to determine MTDD
--- NOTE | 2019-07-11 12:39 | CDI ---
Documentation Clarification Form Date: 07/11/2019 12:18:38 PM From: Olivia Valdez RN, CCDS Admit Date: 07/08/2019 04:30:00 PM Patient Name: Darling Spicer Visit Number: [id number] ATTENTION: The Clinical Documentation Specialists (CDI) and [facility] Coding Staff appreciate your assistance in clarifying documentation. Please respond to the clarification below the line at the bottom and electronically sign. The CDI & [facility] Coding staff will review the response and follow-up if needed. Please note: Queries are made part of the Legal Health Record. If you have any questions, please contact the author of this message via ITS. Dr. Wagner Howe "Nonhealing ulcers of the second toe with possible acute osteomyelitis." is documented in the H&P and Progress notes and requires further specificity. Patient history/risk factors: Hx of osteo of left second toe previously, chronic venous stasis Clinical Indicators: 07/08 ID Consult: "Assessment: patient with left second toe diabetic foot infection with evidence of purulent drainage and underlying osteomyelitis will need to cover for the mixed sherman associated with this type of infection (1) Toe osteomyelitis, left Plan: 2-Aquacel silver dressing to the left foot plantar wound and a dry dressing to the second toe to be changed daily 07/07 H&P: Nonhealing ulcers of the second toe with possible acute osteomyelitis. History of osteomyelitis, second toe. 07/08 Vascular: "Left foot second toe at the nailbed has slight drainage. Culture has been taken. 07/08 Left second Toe wound culture: + Gram Neg Bacilli Labs: WBC 5/2.7/3.3/4 07/08/19 Nursing Wound assessment: Non-healing wound POA, 1*1.5, eschar, tanisha- wound is dry and scaly with erythema and is cool to touch, with yellow drainage Treatment: Levaquin 750 mg IVPB x 1 dose Zosyn 3.375 gm IVPB Q 8 hrs Tobramycin 620 mg IVPB Q 24 hrs Santyl dressing change daily Consults: Vascular and ID In your professional opinion, can the etiology and severity of the wound be further specified as one of the following? Etiology: Pressure Ulcer (please, document location and stage) Non-pressure chronic ulcer due to diabetes Non-pressure chronic ulcer due to arterial insufficiency Non-pressure chronic ulcer due to venous insufficiency Non-pressure chronic ulcer due to trauma Other, Please specify Unable to determine Severity: Limited to breakdown of skin With fat layer exposed With necrosis of muscle With necrosis of bone Other, Please specify Unable to determine (Last Revision: January 2017) Unable to determine MTDD
--- NOTE | 2019-07-11 14:05 | CDI ---
Documentation Clarification Form Date: 07/11/2019 01:58:55 PM From: Olivia Valdez RN, CCDS Admit Date: 07/08/2019 04:30:00 PM Patient Name: Darling Spicer Visit Number: [id number] ATTENTION: The Clinical Documentation Specialists (CDI) and [facility] Coding Staff appreciate your assistance in clarifying documentation. Please respond to the clarification below the line at the bottom and electronically sign. The CDI & [facility] Coding staff will review the response and follow-up if needed. Please note: Queries are made part of the Legal Health Record. If you have any questions, please contact the author of this message via ITS. Dr. Wagner Howe A diagnosis of anemia lacks specificity to accurately reflect your patients severity of condition and clarification is needed. History/Risk Factors: Chronic anemia, nonhealing ulcers, hx of osteomylitis Clinical indicators: 07/09 Attending Progress note: "Anemia, normocytic" 07/07-07/10 Hemoglobin: 10.3/9.4/8.7/9.5 07/07-07/10 Hematocrit: 31.7/28.5/27.2/30.4 Treatment: Monitoring labs In order to capture the severity of condition, please clarify the type of anemia and etiology if known: Chronic blood loss anemia Iron deficiency anemia Anemia of chronic disease Nutritional anemia Unable to determine Other, please specify (Last Revision: January 2017) Unable to determine MTDD
[2019-07-11] MEDS: COLLAGENASE 250 UNIT/GM OINTMENT 30 GM TUBE TOPICAL SCH (15:35)
[2019-07-11] MEDS: TOBRAMYCIN SULFATE 140 MG in SODIUM CHLORIDE 0.9% 100 ML IVPB SCH ×2 (16:21→23:17)
[2019-07-11] MEDS: CEFTAZIDIME/AVIBACTAM 2.5 GM in SODIUM CHLORIDE 0.9% 100 ML IVPB SCH (17:44)
--- NOTE | 2019-07-11 18:28 | PN ---
PROGRESS NOTE DATE OF SERVICE: 07/11/2019 This 63-year-old woman who was admitted with nonhealing ulcer of the second toe had possible acute osteomyelitis. The patient is being closely monitored with Dr. Hernandez. No chest pain. No palpitations. No fever. The patient is on tobramycin IV. PHYSICAL EXAMINATION: Alert and oriented x3. Pulse is 68, blood pressure 112/55, respiration 18, temperature 97.6, pulse ox 94% on room air. HEENT: Conjunctivae normal. NECK: No jugular venous distention. CARDIOVASCULAR SYSTEM: S1, S2 muffled. RESPIRATORY SYSTEM: Breath sounds diminished at the bases. No rhonchi. No crackles. ABDOMEN: Soft, non-tender. LEGS: Ulcer is present, acute on chronic. NERVOUS SYSTEM: No focal deficit. LABS: WBC 4, hemoglobin 9.5. Otherwise, UA noted. Random tobramycin is 1.4. ASSESSMENT: 1. Nonhealing ulcer of the second toe with possible acute osteomyelitis with Pseudomonas aeruginosa as well as Gram-negative bacilli, Pseudomonas aeruginosa, sensitive to tobramycin and gentamicin and amikacin only. 2. Multiple ulcerations of the left foot. 3. Hypertension. 4. Hyperlipidemia. 5. History of degenerative joint disease. 6. Mild pancytopenia of undetermined etiology. 7. Anemia, normocytic. 8. Thrombocytopenia. 9. History of degenerative joint disease. 10.History of hypothyroidism. 11.Nonambulatory. 12.History of chronic venostasis. 13.History of osteomyelitis of the second toe previously. 14.History of cellulitis. 15.History of urinary tract infection. 16.History of anemia. 17.History of umbilical hernia. 18.History hypothyroidism. 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 20.History of section. 21.History of cholecystectomy. 22.Remote history of nicotine dependence. 23.Obesity with body mass index of 41.3. 24.FULL CODE. RECOMMENDATIONS AND DISCUSSION: I recommend to continue current medications, continue with the monitoring, symptomatic treatment. The patient has a history of utxml-iqjs-[id number] organisms. At this time the patient is on tobramycin IV. I recommend PICC line and long-term antibiotic per Dr. Hernandez. Prognosis guarded because of multiple complex medical issues. Further recommendations to follow. MMODL / IJN: [id number] /
--- NOTE | 2019-07-11 19:22 | PN ---
PROGRESS NOTE Darling Spicer is a 63-year-old female known to me. The patient has left foot second toe wet gangrene changes and there is culture came back as gram-negative bacilli and Pseudomonas aeruginosa. The second toe is red and there is some discharge noted. Discussed with infectious disease. I agree for a left foot second toe amputation. The patient is on IV antibiotic and we are planning to adjust tomorrow. We will keep her n.p.o. and consent for left foot second toe amputation. Risks and complications discussed, nonhealing infection. MMODL / IJN: [id number] /
[2019-07-11] MEDS: ATORVASTATIN 10 MG TAB PO SCH (21:15)
[2019-07-11] MEDS: TEMAZEPAM 15 MG CAP PO PRN (21:15)
--- NOTE | 2019-07-11 23:07 | PN ---
PROGRESS NOTE DATE OF SERVICE: 07/11/2019. REASON FOR FOLLOWUP: Left second toe abscess and cellulitis. INTERVAL HISTORY: The patient is currently afebrile, has been breathing comfortably. Still complaining of pain to the left second toe area. No chest pain, shortness of breath or cough. No abdominal pain or diarrhea. PHYSICAL EXAMINATION: Blood pressure 120/59 with a pulse of 74, temperature 97.6. She is 98% on room air. General description is a middle-aged female lying in bed in no distress. RESPIRATORY SYSTEM: Unlabored breathing. Clear to auscultation anteriorly. HEART: S1, S2. Regular rate and rhythm. ABDOMEN: Soft. No tenderness. Left foot is currently dressed up. No obvious drainage on the dressing. LABS: Hemoglobin 9.5, white count 4.0, creatinine 0.79. Left second toe with multi-drug- resistant Pseudomonas aeruginosa. DIAGNOSTIC IMPRESSION AND PLAN: Patient with left second toe abscess and cellulitis with [id number] Pseudomonas aeruginosa in this patient whose culture has been positive for possible osteomyelitis. Patient may benefit from amputation of second toe in order to control this infection, and the case and plan of care was discussed with the vascular surgeon. MMODL / IJN: [id number] /
[2019-07-12] MEDS: CEFTAZIDIME/AVIBACTAM 2.5 GM in SODIUM CHLORIDE 0.9% 100 ML IVPB SCH ×4 (00:05→23:34)
[2019-07-12] MEDS: LEVOTHYROXINE 100 MCG TAB PO SCH (04:58)
[2019-07-12] MEDS ORDERED: TOBRAMYCIN TROUGH DUE 1 EACH MISC MISCELLANE ONE (07:30)
[2019-07-12] MEDS: MULTIVITAMINS, THERA 1 EACH TAB PO SCH (08:10)
[2019-07-12] MEDS: PANTOPRAZOLE 40 MG TABLET PO SCH (08:10)
[2019-07-12] MEDS: amLODIPine 10 MG TAB PO SCH (08:11)
[2019-07-12] MEDS: LISINOPRIL 20 MG TAB PO SCH ×2 (08:11→21:35)
[2019-07-12] MEDS: HEPARIN SODIUM,PORCINE 5,000 UNIT/ML 1 ML VIAL SQ SCH ×3 (08:11→11:42)
[2019-07-12] MEDS: PREGABALIN 100 MG CAP PO SCH ×3 (08:11→21:36)
[2019-07-12] MEDS: COLLAGENASE 250 UNIT/GM OINTMENT 30 GM TUBE TOPICAL SCH (08:12)
[2019-07-12] MEDS: HYDROcodone/APAP 7.5-325MG 1 EACH TAB PO PRN ×3 (08:18→21:35)
[2019-07-12] MEDS ORDERED: TOBRAMYCIN PEAK DUE 1 EACH MISC MISCELLANE ONE (10:00)
[2019-07-12] MEDS ORDERED: IV FLUID CONTINUATION 1,000 ML IV ONE (11:24)
[2019-07-12] MEDS ORDERED: DEXAMETHASONE SOD PHOSPHATE 10 MG/ML 1 ML VIAL IV ONE (11:42)
[2019-07-12] MEDS ORDERED: ONDANSETRON 4 MG/2 ML VIAL IVP ONE (11:42)
[2019-07-12] MEDS ORDERED: HYDROmorphone 0.5 MG/0.5 ML SYRINGE IVP PRN (11:46)
[2019-07-12] MEDS ORDERED: ONDANSETRON 4 MG/2 ML VIAL IVP PRN (11:46)
[2019-07-12] MEDS ORDERED: TOBRAMYCIN SULFATE 140 MG in SODIUM CHLORIDE 0.9% 100 ML IVPB SCH (12:00)
[2019-07-12] MEDS ORDERED: ePHEDrine SULFATE/0.9% NACL/PF 50 MG/5 ML SYRINGE IV ONE (12:01)
[2019-07-12] MEDS ORDERED: MIDAZOLAM 2 MG/2 ML VIAL ONE (12:01)
[2019-07-12] MEDS ORDERED: LIDOCAINE 1% INJ 10MG/ML (20 ML MDV) ONE (12:01)
[2019-07-12] MEDS ORDERED: GLYCOPYRROLATE 0.2 MG/ML 2 ML VIAL ONE (12:01)
[2019-07-12] MEDS ORDERED: PROPOFOL 10 MG/ML 20 ML VIAL IV ONE (12:01)
[2019-07-12] MEDS ORDERED: KETAMINE 10 MG/ML 20 ML VIAL ONE (12:01)
[2019-07-12] MEDS ORDERED: PHENYLEPHRINE-0.9% NACL SYG 1 MG/10 ML SYRINGE ONE (12:01)
[2019-07-12] MEDS ORDERED: fentaNYL (PF) 50 MCG/ML 2 ML AMP ONE (12:01)
[2019-07-12] MEDS ORDERED: LIDOCAINE 1% INJ 10MG/ML (20 ML MDV) SQ ONE ×2 (12:16→12:26)
[2019-07-12] MEDS ORDERED: KETOROLAC 30 MG/ML 1 ML VIAL IVP ONE (13:25)
--- NOTE | 2019-07-12 15:48 | P.PN ---
Subjective Progress Note Date: 07/12/19 Principal diagnosis: This is a 63-year-old female who was recently admitted with a nonhealing ulcer of the second toe left foot with possible acute osteomyelitis and was being clos nevaeh monitored. Patient is scheduled to undergo amputation of the toe with Dr. Danielson today. Infectious disease is following. Patient remains on IV antibiotics in the form of tobramycin and will continue at this time. Arranging for PICC line placement for IV antibiotic therapy in the outpatient setting. Currently no reports of chest pain, shortness of breath, or palpitations. Patient is afebrile. No reports of nausea or vomiting and patient has been made nothing by mouth for the procedure. Objective - Vital Signs Vital signs: Vital Signs Temp 96.9 F L 07/12/19 13:01 Pulse 64 07/12/19 13:46 Resp 16 07/12/19 13:46 BP 130/71 07/12/19 13:46 Pulse Ox 97 07/12/19 13:46 Intake & Output 07/11/19 07/12/19 07/12/19 18:59 06:59 18:59 Intake Total 2160 1160 900 Output Total 100 Balance 2160 1160 800 Intake: IV 600 Intake, IV Titration 100 200 100 Amount Ceftazidime/Avibactam 2.5 100 100 gm In Sodium Chloride 0. 9% 100 ml @ 50 mls/hr IVPB Q8HR [facility] Rx#: [id number] Piperacillin-Tazobactam 3 100 .375 gm In Sodium Chloride 0.9% 100 ml @ 25 mls/hr IVPB Q8HR [facility] Rx# :[id number] Tobramycin Sulfate 620 mg 100 In Sodium Chloride 0.9% 100 ml @ 115.5 mls/hr IVPB Q24H [facility] Rx#: [id number] Oral 2060 960 200 Output: Estimated Blood Loss 100 Other: Voiding Method Toilet Bedside Commode Bedside Commode Diaper Incontinent # Voids 4 1 # Bowel Movements 1 - Exam Gen: This is a 63-year-old female sitting up in bed awake, alert and oriented 3, well-developed, well-nourished. Temp is 97.8F, pulse is 69, respirations are 17, blood pressure is 132/68, oxygen saturation is 93% on room air. HEENT: Head is atraumatic, normocephalic. Pupils equal, round. Sclerae is anicteric. NECK: Supple. No JVD. No lymphadenopathy. No thyromegaly. LUNGS: Breath sounds diminished at the bases with no wheezing or rhonchi noted. No intercostal retractions. HEART: S1, S2 are muffled ABDOMEN: Soft. Bowel sounds are present. No masses. No tenderness. EXTREMITIES: No pedal edema. No calf tenderness. Ulcer of the left lower extremity is noted, acute on chronic with dressing that is dry and intact. NEUROLOGICAL: Patient is awake, alert and oriented x3. Cranial nerves 2 through 12 are grossly intact. - Labs CBC & Chem 7: 07/11/19 08:24 07/11/19 08:24 Labs: Microbiology - Last 24 Hours (Table) 07/09/19 14:10 Gram Stain - Final Toe - Left Second Wound Culture - Final Pseudomonas aeruginosa 07/08/19 15:50 Blood Culture - Preliminary Blood No Growth after 72 hours Assessment and Plan Assessment: Nonhealing ulcer of the second toe of foot with possible acute osteomyelitis with pseudomonas aeruginosa as well as gram-negative bacilli, pseudomonas aeruginosa, sensitive to tobramycin and gentamicin and amikacin only Multiple ulcerations of the left foot Hypertension Hyperlipidemia History of degenerative joint disease Mild pancytopenia of undetermined etiology Anemia, normocytic thrombocytopenia History of hypothyroidism Nonambulatory history of chronic venostasis history of osteomyelitis of the second toe previously History of cellulitis next line history of urinary tract infection History of anemia or sign history of umbilical hernia History of MRSA, MDRO, VRE, pseudomonas History of section History of cholecystectomy remote history of nicotine dependence Obesity with a body mass index of 41.3 Full code Recommendations and discussion: Recommend continue with IV antibiotics, continue current medications, management, and symptomatic treatment. Will continue to monitor closely. Patient is currently awaiting a PICC line placement for IV antibiotic therapy in the outpatient setting. Infectious disease is following. Patient is scheduled to undergo left second toe amputation with Dr. aDnielson today. Will await report. Due to multiple complex medical issues prognosis guarded. Further recommendations to follow. Will discuss with case management and social work if possible ECF as needed for some rehab and continued IV antibiotic therapy. Possible discharge in 24-48 hours.
[2019-07-12] MEDS: TOBRAMYCIN SULFATE 140 MG in SODIUM CHLORIDE 0.9% 100 ML IVPB SCH ×2 (16:22→18:41)
[2019-07-12] MEDS: LACTATED RINGERS 1,000 ML IV SCH (17:20)
[2019-07-12] MEDS: ALPRAZolam 0.25 MG TAB PO PRN (18:14)
[2019-07-12] MEDS: ATORVASTATIN 10 MG TAB PO SCH (21:35)
[2019-07-12] MEDS: TEMAZEPAM 15 MG CAP PO PRN (21:35)
--- NOTE | 2019-07-12 23:08 | PN ---
PROGRESS NOTE DATE OF SERVICE: 07/12/2019 REASON FOR FOLLOWUP: Left second toe abscess and osteomyelitis with multidrug resistant Pseudomonas. INTERVAL HISTORY: The patient is currently afebrile, has been taken to the OR status post amputation of left big toe. The patient tolerated the procedure. Denies any chest pain. No cough. No abdominal pain and no diarrhea. PHYSICAL EXAMINATION: Blood pressure 125/67 with a pulse of 90, temperature is 98.7. She is 93% on room air. General description is a middle-aged female lying in bed in no distress. Respiratory system: Unlabored breathing. Clear to auscultation anteriorly. Heart S1, S2. Regular rate and rhythm. Abdomen soft, no tenderness. Left foot is currently dressed up. No obvious drainage on the dressing. LABS: No CBC or BMP was done today. DIAGNOSTIC IMPRESSION AND PLAN: Patient with multidrug resistant Pseudomonas aeruginosa left second toe abscess and osteomyelitis. The patient at this time to continue with monitor kidney function closely and continue supportive care. MMODL / IJN: [id number] /
[2019-07-13] MEDS: TOBRAMYCIN SULFATE 140 MG in SODIUM CHLORIDE 0.9% 100 ML IVPB SCH (04:06)
[2019-07-13] MEDS: LEVOTHYROXINE 100 MCG TAB PO SCH (05:02)
[2019-07-13] MEDS: HYDROcodone/APAP 7.5-325MG 1 EACH TAB PO PRN ×2 (05:02→16:44)
[2019-07-13 08:21] LABS: African American GFR (CKD) >90 (>60 ml/min/1.73 sqM); Non-African American GFR(CKD) 85 (>60 ml/min/1.73 sqM)
[2019-07-13] MEDS: CEFTAZIDIME/AVIBACTAM 2.5 GM in SODIUM CHLORIDE 0.9% 100 ML IVPB SCH ×2 (09:32→16:44)
[2019-07-13] MEDS: PANTOPRAZOLE 40 MG TABLET PO SCH (09:40)
[2019-07-13] MEDS: HEPARIN SODIUM,PORCINE 5,000 UNIT/ML 1 ML VIAL SQ SCH ×2 (09:40→21:27)
[2019-07-13] MEDS: COLLAGENASE 250 UNIT/GM OINTMENT 30 GM TUBE TOPICAL SCH (09:40)
[2019-07-13] MEDS: MULTIVITAMINS, THERA 1 EACH TAB PO SCH (09:40)
[2019-07-13] MEDS: LISINOPRIL 20 MG TAB PO SCH ×2 (09:40→21:27)
[2019-07-13] MEDS: amLODIPine 10 MG TAB PO SCH (09:40)
[2019-07-13] MEDS: PREGABALIN 100 MG CAP PO SCH ×3 (09:40→21:27)
[2019-07-13] MEDS: LACTATED RINGERS 1,000 ML IV SCH (09:41)
--- NOTE | 2019-07-13 10:58 | CONS ---
CONSULTATION PREOPERATIVE DIAGNOSIS: Wet gangrene of the left foot, second toe. OPERATION: Amputation of the left foot, second toe at the metatarsophalangeal joint. This patient was brought to the operating room. Left foot was prepped and drapes applied in a sterile manner. Patient had a left big toe amputation in the past. Apical incision was made on the dorsum aspect of the foot, went circumferentially around the toe and on the plantar aspect deepened through skin, fat, and fascia. At this point, the tendons on the dorsal aspect were divided for the second toe and did we reached the metatarsophalangeal joint. There was some digital vessels which were suture ligated with 0 Prolene. After that, the ligaments were divided and this 2nd toe was removed. The wound was copiously irrigated carotid oxide and saline. Hemostasis was well controlled and incision was closed with Vicryl and skin was closed with 5 nylon. Dressing applied. Patient tolerated the procedure well. MMODL / IJN: [id number] /
[2019-07-13] MEDS ORDERED: TOBRAMYCIN TROUGH DUE 1 EACH MISC MISCELLANE ONE (15:30)
--- NOTE | 2019-07-13 17:02 | PN ---
PROGRESS NOTE This patient had left second toe amputation for wet gangrene. Today is postoperative day 1. We changed the dressing. Incision site looks great. No active drainage noted. Dressing was changed. PLAN: Continue IV antibiotic. Deep culture is pending. MMODL / IJN: [id number] /
[2019-07-13] MEDS ORDERED: TOBRAMYCIN PEAK DUE 1 EACH MISC MISCELLANE ONE (18:00)
[2019-07-13] MEDS: ATORVASTATIN 10 MG TAB PO SCH (21:27)
--- NOTE | 2019-07-13 22:25 | PN ---
PROGRESS NOTE DATE OF SERVICE: 07/13/2019 REASON FOR FOLLOWUP: Left second toe abscess and osteomyelitis with jdcao-fxta-sdtvitiyb pseudomonas. INTERVAL HISTORY: The patient is currently afebrile. She has been breathing comfortably. Denies having any chest pain or any cough. No nausea, no vomiting. No abdominal pain or pain to the left foot. PHYSICAL EXAMINATION: Blood pressure 113/56, pulse of 72, temperature 97.7. She is 94% on room air. General description is a middle-aged female lying in bed in no distress. RESPIRATORY SYSTEM: Unlabored breathing. Clear to auscultation anteriorly. HEART: S1, S2. Regular rate and rhythm. ABDOMEN: Soft. No tenderness. LABS: Creatinine 0.75. DIAGNOSTIC IMPRESSION AND PLAN: Patient with left second toe abscess and cellulitis in this patient who did have multi- drug-resistant pseudomonas. The patient is covered with Avycaz. Avycaz sensitivity has been requested from the micro lab. The patient is status post amputation with wound V.A.C. course closely. MMODL / IJN: [id number] /
--- NOTE | 2019-07-14 00:06 | P.PN ---
Progress Note - Text Progress Note Date: 07/13/19 Chief Complaint: Heavy left leg History of presenting complaint: This is a pleasant 63-year-old patient of Dr. Mcfarlane. Chronic stable medical conditions include idiopathic peripheral neuropathy, morbid obesity, primary osteoarthritis, essential hypertension, hypothyroid, , urinary stress incontinence, chronic venous stasis, hyperlipidemia, bilateral lower extremity lymphedema, pyoderma gangrenosum. Had a baseline patient uses a wheelchair to get about. Patient was here in the middle of March 2019 and . MRI did confirm osteomyelitis of the left foot second toe. Was treated with IV antibiotics. Was here again in May 07-discharge and IV daptomycin. Admitted with pus draining out of the left second toe. Started antibiotic. July 11 amputation of the left second toe was carried out for gangrene. Today-pain is better controlled. Tolerating a diet. No fever no chills. Review of systems: Was done for constitutional, cardiovascular, GI, pulmonary. relevant finding as above Active Medications Acetaminophen (Tylenol Tab) 500 mg PO Q6HR PRN PRN Reason: Fever and/ or Mild Pain Last Admin: 07/12/19 17:47 Dose: 500 mg Documented by: Hydrocodone Bitart/Acetaminophen ([place] 7.5-325) 1 each PO Q6H PRN PRN Reason: Pain Last Admin: 07/13/19 16:44 Dose: 1 each Documented by: Alprazolam (Xanax) 0.25 mg PO TID PRN PRN Reason: Anxiety Last Admin: 07/12/19 18:14 Dose: 0.25 mg Documented by: Amlodipine Besylate (Norvasc) 10 mg PO DAILY [facility] Last Admin: 07/13/19 09:40 Dose: 10 mg Documented by: Atorvastatin Calcium (Lipitor) 10 mg PO HS [facility] Last Admin: 07/13/19 21:27 Dose: 10 mg Documented by: Collagenase (Santyl) 1 applic TOPICAL DAILY [facility] Last Admin: 07/13/19 09:40 Dose: Not Given Documented by: Heparin Sodium (Porcine) (Heparin) 5,000 unit SQ Q12HR [facility] Last Admin: 07/13/19 21:27 Dose: 5,000 unit Documented by: Ceftazidime/Avibactam 2.5 gm/ (Sodium Chloride) 100 mls @ 50 mls/hr IVPB Q8HR [facility]; Protocol Last Admin: 07/13/19 16:44 Dose: 50 mls/hr Documented by: Lactated Ringer's (Lactated Ringers) 1,000 mls @ 20 mls/hr IV .Q24H [facility] Last Admin: 07/13/19 09:41 Dose: Not Given Documented by: Levothyroxine Sodium (Synthroid) 100 mcg PO DAILY@0630 [facility] Last Admin: 07/13/19 05:02 Dose: 100 mcg Documented by: Lisinopril (Zestril) 20 mg PO BID [facility] Last Admin: 07/13/19 21:27 Dose: 20 mg Documented by: Multivitamins (Theragran) 1 each PO DAILY@1200 [facility] Last Admin: 07/13/19 09:40 Dose: 1 each Documented by: Pantoprazole Sodium (Protonix) 40 mg PO AC-BRKFST [facility] Last Admin: 07/13/19 09:40 Dose: 40 mg Documented by: Pregabalin (Lyrica) 100 mg PO TID [facility] Last Admin: 07/13/19 21:27 Dose: 100 mg Documented by: Temazepam (Restoril) 15 mg PO HS PRN PRN Reason: Insomnia Last Admin: 07/12/19 21:35 Dose: 15 mg Documented by: Physical examination: VITAL SIGNS: 97.7, 72, 17, blood pressure 117/56, 94% on room air GENERAL: Laying in bed, comfortable EYES: Pupils equal. Conjunctiva normal. HEENT: External appearance of nose and ears normal, oral cavity grossly normal. NECK: JVD unable to assess; masses not palpable. HEART: Distal heart sounds; some edema. LUNGS: Respiratory rate normal; distant breath sounds. ABDOMEN: Soft, nontender, liver spleen not palpable, no masses palpable. Umbilical hernia PSYCH: Alert and oriented x3; mood and affect normal. LYMPHATICS: lower extremity lymphedema Left lower extremity: absent first toe, amputation of the left second toe. Pressure ulcer on the heel INVESTIGATIONS, reviewed in the clinical context: White count 4 hemoglobin 9.5 potassium 4 Assessment: -Left heel stage III pressure ulcer -left second toe osteomyelitis, acute,-having failed outpatient treatment no causing gangrene-status post amputation, POA-multiresistant Pseudomonas -chronic low back pain, likely from spinal stenosis/herniated disc with radiculopathy and down and affect.-likely from L1-L2 and L3-L4 nerve distribution. -Pyoderma gangrenosum -Hyperlipidemia -Essential hypertension -Primary osteoarthritis -Hypothyroid -Chronic medical debility uses a vision -Idiopathic peripheral neuropathy -Chronic venous stasis -Bilateral lower extremity lymphedema -Chronic urinary stress incontinence -Chronic umbilical hernia -Left leg posteriorly, decubitus ulcer, POA -Morbid obesity BMI 42.6 Plan: Wound VAC to the left foot. Antibiotics per Dr. Ponce. Care was discussed with the patient. Wound dressing per Dr. Danielson.
[2019-07-14] MEDS: TEMAZEPAM 15 MG CAP PO PRN ×2 (00:09→23:53)
[2019-07-14] MEDS: HYDROcodone/APAP 7.5-325MG 1 EACH TAB PO PRN ×3 (00:09→21:35)
[2019-07-14] MEDS: CEFTAZIDIME/AVIBACTAM 2.5 GM in SODIUM CHLORIDE 0.9% 100 ML IVPB SCH ×4 (01:50→23:53)
[2019-07-14] MEDS: LEVOTHYROXINE 100 MCG TAB PO SCH (06:17)
[2019-07-14 08:24] LABS: HCT 32.9 % (34.0-46.0); HGB 10.5 gm/dL (11.4-16.0); Hypochromasia Slight; MCH 29.2 pg (25.0-35.0); MCHC 31.8 g/dL (31.0-37.0); MCV 91.8 fL (80.0-100.0); Mean Platelet Volume 9.5; Platelet Count 138 k/uL (150-450); RBC 3.58 m/uL (3.80-5.40); RDW 14.7 % (11.5-15.5); WBC 4.8 k/uL (3.8-10.6)
[2019-07-14 08:43] LABS: African American GFR (CKD) >90 (>60 ml/min/1.73 sqM); Anion Gap 5 mmol/L; Blood Urea Nitrogen 16 mg/dL (7-17); Calcium 9.5 mg/dL (8.4-10.2); Carbon Dioxide 31 mmol/L (22-30); Chloride 105 mmol/L (98-107); Glucose 90 mg/dL (74-99); Non-African American GFR(CKD) 80 (>60 ml/min/1.73 sqM); Potassium 4.4 mmol/L (3.5-5.1); Sodium 141 mmol/L (137-145)
[2019-07-14] MEDS: PREGABALIN 100 MG CAP PO SCH ×3 (09:31→21:33)
[2019-07-14] MEDS: HEPARIN SODIUM,PORCINE 5,000 UNIT/ML 1 ML VIAL SQ SCH ×2 (09:31→21:33)
[2019-07-14] MEDS: MULTIVITAMINS, THERA 1 EACH TAB PO SCH (09:31)
[2019-07-14] MEDS: LISINOPRIL 20 MG TAB PO SCH ×2 (09:31→21:33)
[2019-07-14] MEDS: amLODIPine 10 MG TAB PO SCH (09:31)
[2019-07-14] MEDS: PANTOPRAZOLE 40 MG TABLET PO SCH (09:31)
[2019-07-14] MEDS: COLLAGENASE 250 UNIT/GM OINTMENT 30 GM TUBE TOPICAL SCH (09:31)
[2019-07-14] MEDS: LACTATED RINGERS 1,000 ML IV SCH (11:43)
--- NOTE | 2019-07-14 16:04 | P.PN ---
Progress Note - Text Progress Note Date: 07/14/19 Chief Complaint: Infected left second toe History of presenting complaint: This is a pleasant 63-year-old patient of Dr. Mcfarlane. Chronic stable medical conditions include idiopathic peripheral neuropathy, morbid obesity, primary osteoarthritis, essential hypertension, hypothyroid, , urinary stress incontinence, chronic venous stasis, hyperlipidemia, bilateral lower extremity lymphedema, pyoderma gangrenosum. Had a baseline patient uses a wheelchair to get about. Patient was here in the middle of March 2019 and . MRI did confirm osteomyelitis of the left foot second toe. Was treated with IV antibiotics. Was here again in May 07-discharge and IV daptomycin. Admitted with pus draining out of the left second toe. Started antibiotic. July 11 amputation of the left second toe was carried out for gangrene. Today-pain is controlled. Sitting upon a chair. Did tolerate her diet. Review of systems: Was done for constitutional, cardiovascular, GI, pulmonary. relevant finding as above Active Medications Acetaminophen (Tylenol Tab) 500 mg PO Q6HR PRN PRN Reason: Fever and/ or Mild Pain Last Admin: 07/12/19 17:47 Dose: 500 mg Documented by: Hydrocodone Bitart/Acetaminophen ([place] 7.5-325) 1 each PO Q6H PRN PRN Reason: Pain Last Admin: 07/14/19 11:45 Dose: 1 each Documented by: Alprazolam (Xanax) 0.25 mg PO TID PRN PRN Reason: Anxiety Last Admin: 07/12/19 18:14 Dose: 0.25 mg Documented by: Amlodipine Besylate (Norvasc) 10 mg PO DAILY [facility] Last Admin: 07/14/19 09:31 Dose: 10 mg Documented by: Atorvastatin Calcium (Lipitor) 10 mg PO HS [facility] Last Admin: 07/13/19 21:27 Dose: 10 mg Documented by: Collagenase (Santyl) 1 applic TOPICAL DAILY [facility] Last Admin: 07/14/19 09:31 Dose: 1 applic Documented by: Heparin Sodium (Porcine) (Heparin) 5,000 unit SQ Q12HR [facility] Last Admin: 07/14/19 09:31 Dose: 5,000 unit Documented by: Ceftazidime/Avibactam 2.5 gm/ (Sodium Chloride) 100 mls @ 50 mls/hr IVPB Q8HR [facility]; Protocol Last Admin: 07/14/19 09:30 Dose: 50 mls/hr Documented by: Lactated Ringer's (Lactated Ringers) 1,000 mls @ 20 mls/hr IV .Q24H [facility] Last Admin: 07/14/19 11:43 Dose: Not Given Documented by: Levothyroxine Sodium (Synthroid) 100 mcg PO DAILY@0630 [facility] Last Admin: 07/14/19 06:17 Dose: 100 mcg Documented by: Lisinopril (Zestril) 20 mg PO BID [facility] Last Admin: 07/14/19 09:31 Dose: 20 mg Documented by: Multivitamins (Theragran) 1 each PO DAILY@1200 [facility] Last Admin: 07/14/19 09:31 Dose: 1 each Documented by: Pantoprazole Sodium (Protonix) 40 mg PO AC-BRKFST [facility] Last Admin: 07/14/19 09:31 Dose: 40 mg Documented by: Pregabalin (Lyrica) 100 mg PO TID [facility] Last Admin: 07/14/19 09:31 Dose: 100 mg Documented by: Temazepam (Restoril) 15 mg PO HS PRN PRN Reason: Insomnia Last Admin: 07/14/19 00:09 Dose: 15 mg Documented by: Physical examination: VITAL SIGNS: 97.4, 71, 18, blood pressure 140/80, 98% on room air GENERAL: Sitting up in a recliner, comfortable EYES: Pupils equal. Conjunctiva normal. HEENT: External appearance of nose and ears normal, oral cavity grossly normal. NECK: JVD unable to assess; masses not palpable. HEART: Distal heart sounds; some edema. LUNGS: Respiratory rate normal; distant breath sounds. ABDOMEN: Soft, nontender, liver spleen not palpable, no masses palpable. Umbilical hernia PSYCH: Alert and oriented x3; mood and affect normal. LYMPHATICS: lower extremity lymphedema Left lower extremity: absent first toe, amputation of the left second toe. Pressure ulcer on the heel INVESTIGATIONS, reviewed in the clinical context: White count 4 hemoglobin 9.5 potassium 4 Assessment: -Left heel stage III pressure ulcer -left second toe osteomyelitis, acute,-having failed outpatient treatment no causing gangrene-status post amputation, POA-multiresistant Pseudomonas -chronic low back pain, likely from spinal stenosis/herniated disc with radiculopathy and down and affect.-likely from L1-L2 and L3-L4 nerve distribution. -Pyoderma gangrenosum -Hyperlipidemia -Essential hypertension -Primary osteoarthritis -Hypothyroid -Chronic medical debility uses a vision -Idiopathic peripheral neuropathy -Chronic venous stasis -Bilateral lower extremity lymphedema -Chronic urinary stress incontinence -Chronic umbilical hernia -Left leg posteriorly, decubitus ulcer, POA -Morbid obesity BMI 42.6 Plan: Wound VAC to the left foot. Antibiotics per Dr. Ponce. Care was discussed with the patient. Wound dressing per Dr. Danielson. Hopefully discharge tomorrow
[2019-07-14] MEDS: ATORVASTATIN 10 MG TAB PO SCH (21:33)
--- NOTE | 2019-07-14 23:06 | PN ---
PROGRESS NOTE DATE OF SERVICE: 07/14/2019. REASON FOR FOLLOWUP: Second toe abscess with cellulitis. INTERVAL HISTORY: The patient is currently afebrile. She has been breathing comfortably. Denies having any chest pain. No shortness of breath or cough. No nausea. No vomiting. No abdominal pain. No pain to the left foot. PHYSICAL EXAMINATION: Blood pressure 143/77 with a pulse of 66, temperature 96.8. She is 95% on room air. General description is an elderly female lying in bed in no distress. RESPIRATORY SYSTEM: Unlabored breathing. Clear to auscultation anteriorly. HEART: S1, S2. Regular rate and rhythm. ABDOMEN: Soft. No tenderness. Left foot at the base of amputated toe did have minimal redness. No drainage. LABS: Hemoglobin 10.5, white count 4.8. BUN is 15, creatinine 0.79. DIAGNOSTIC IMPRESSION AND PLAN: Patient with left second toe abscess and cellulitis with [id number] Pseudomonas aeruginosa. The patient is currently covered with [employer]. business integration manager working on getting a week of [employer] arranged for the outpatient setting. Once arranged, midline will be placed. If not, continue the patient on IV for another 48 hours in the hospital before discharging her home on oral antibiotics. Continue with supportive care. MMODL / IJN: [id number] /
[2019-07-15] MEDS: LEVOTHYROXINE 100 MCG TAB PO SCH (05:30)
[2019-07-15] MEDS: PANTOPRAZOLE 40 MG TABLET PO SCH (09:21)
[2019-07-15] MEDS: LISINOPRIL 20 MG TAB PO SCH ×2 (09:21→21:36)
[2019-07-15] MEDS: COLLAGENASE 250 UNIT/GM OINTMENT 30 GM TUBE TOPICAL SCH (09:21)
[2019-07-15] MEDS: MULTIVITAMINS, THERA 1 EACH TAB PO SCH (09:21)
[2019-07-15] MEDS: PREGABALIN 100 MG CAP PO SCH ×3 (09:21→21:36)
[2019-07-15] MEDS: HEPARIN SODIUM,PORCINE 5,000 UNIT/ML 1 ML VIAL SQ SCH ×2 (09:21→21:36)
[2019-07-15] MEDS: amLODIPine 10 MG TAB PO SCH (09:21)
[2019-07-15] MEDS: CEFTAZIDIME/AVIBACTAM 2.5 GM in SODIUM CHLORIDE 0.9% 100 ML IVPB SCH ×3 (11:14→23:48)
[2019-07-15] MEDS: LACTATED RINGERS 1,000 ML IV SCH (13:15)
[2019-07-15] MEDS: HYDROcodone/APAP 7.5-325MG 1 EACH TAB PO PRN ×2 (14:28→21:35)
--- NOTE | 2019-07-15 21:05 | PN ---
PROGRESS NOTE DATE OF SERVICE: 07/15/2019 REASON FOR FOLLOWUP: Left second toe abscess and foot cellulitis. INTERVAL HISTORY: The patient is currently afebrile, has been breathing comfortably. Denies having any chest pain. No cough. No nausea, vomiting, abdominal pain. Pain to the left foot area. PHYSICAL EXAMINATION: Blood pressure 153/77 with a pulse of 71, temp is 97.6. She is 98% on room air. General description is a middle-aged female lying in bed in no distress. Respiratory system: Unlabored breathing, clear to auscultation anteriorly. Heart S1, S2. Regular rate and rhythm. ABDOMEN: Benign. LABORATORY DATA: Hemoglobin is 10.5, white count 4.8. BUN of 16, creatinine 0.79. DIAGNOSTIC IMPRESSION AND PLAN: 1. Patient with left second toe abscess, cellulitis. The cultures with multidrug resistant Pseudomonas aeruginosa. Patient is status post amputation and is covered with IV in view of the multidrug resistant infection on the Pseudomonas and no other drug available, the patient request for outpatient medication request was sent, apparently rejected by the insurance company. We will keep the patient on IV medications for another 24 hours, reevaluate the wounds on the foot tomorrow, if have shown overall clinical improvement, we will let her go with close outpatient followup. Plan of care was discussed with the admitting physician. EILEEN / RENETTA: [id number] /
[2019-07-15] MEDS: ATORVASTATIN 10 MG TAB PO SCH (21:35)
--- NOTE | 2019-07-15 23:41 | P.PN ---
Progress Note - Text Progress Note Date: 07/15/19 Chief Complaint: Infected left second toe History of presenting complaint: This is a pleasant 63-year-old patient of Dr. Mcfarlane. Chronic stable medical conditions include idiopathic peripheral neuropathy, morbid obesity, primary osteoarthritis, essential hypertension, hypothyroid, , urinary stress incontinence, chronic venous stasis, hyperlipidemia, bilateral lower extremity lymphedema, pyoderma gangrenosum. Had a baseline patient uses a wheelchair to get about. Patient was here in the middle of March 2019 and . MRI did confirm osteomyelitis of the left foot second toe. Was treated with IV antibiotics. Was here again in May 07-discharge and IV daptomycin. Admitted with pus draining out of the left second toe. Started antibiotic. July 11 amputation of the left second toe was carried out for gangrene. Today-pain is controlled. Finances surrounding the discharge antibiotics being checked by program planner. Otherwise patient stable Review of systems: Was done for constitutional, cardiovascular, GI, pulmonary. relevant finding as above Active Medications Acetaminophen (Tylenol Tab) 500 mg PO Q6HR PRN PRN Reason: Fever and/ or Mild Pain Last Admin: 07/12/19 17:47 Dose: 500 mg Documented by: Hydrocodone Bitart/Acetaminophen ([place] 7.5-325) 1 each PO Q6H PRN PRN Reason: Pain Last Admin: 07/15/19 21:35 Dose: 1 each Documented by: Alprazolam (Xanax) 0.25 mg PO TID PRN PRN Reason: Anxiety Last Admin: 07/12/19 18:14 Dose: 0.25 mg Documented by: Amlodipine Besylate (Norvasc) 10 mg PO DAILY [facility] Last Admin: 07/15/19 09:21 Dose: 10 mg Documented by: Atorvastatin Calcium (Lipitor) 10 mg PO HS [facility] Last Admin: 07/15/19 21:35 Dose: 10 mg Documented by: Collagenase (Santyl) 1 applic TOPICAL DAILY [facility] Last Admin: 07/15/19 09:21 Dose: 1 applic Documented by: Heparin Sodium (Porcine) (Heparin) 5,000 unit SQ Q12HR [facility] Last Admin: 07/15/19 21:36 Dose: 5,000 unit Documented by: Ceftazidime/Avibactam 2.5 gm/ (Sodium Chloride) 100 mls @ 50 mls/hr IVPB Q8HR [facility]; Protocol Last Admin: 07/15/19 16:12 Dose: 50 mls/hr Documented by: Lactated Ringer's (Lactated Ringers) 1,000 mls @ 20 mls/hr IV .Q24H [facility] Last Admin: 07/15/19 13:15 Dose: Not Given Documented by: Levothyroxine Sodium (Synthroid) 100 mcg PO DAILY@0630 [facility] Last Admin: 07/15/19 05:30 Dose: 100 mcg Documented by: Lisinopril (Zestril) 20 mg PO BID [facility] Last Admin: 07/15/19 21:36 Dose: 20 mg Documented by: Multivitamins (Theragran) 1 each PO DAILY@1200 [facility] Last Admin: 07/15/19 09:21 Dose: 1 each Documented by: Pantoprazole Sodium (Protonix) 40 mg PO AC-BRKFST [facility] Last Admin: 07/15/19 09:21 Dose: 40 mg Documented by: Pregabalin (Lyrica) 100 mg PO TID [facility] Last Admin: 07/15/19 21:36 Dose: 100 mg Documented by: Temazepam (Restoril) 15 mg PO HS PRN PRN Reason: Insomnia Last Admin: 07/14/19 23:53 Dose: 15 mg Documented by: Physical examination: VITAL SIGNS: 96.3, 64, 16, blood pressure 154/74, 98% on room air GENERAL: Sitting up in a recliner, comfortable EYES: Pupils equal. Conjunctiva normal. HEENT: External appearance of nose and ears normal, oral cavity grossly normal. NECK: JVD unable to assess; masses not palpable. HEART: Distal heart sounds; some edema. LUNGS: Respiratory rate normal; distant breath sounds. ABDOMEN: Soft, nontender, liver spleen not palpable, no masses palpable. Umbilical hernia PSYCH: Alert and oriented x3; mood and affect normal. LYMPHATICS: lower extremity lymphedema Left lower extremity: absent first toe, amputation of the left second toe. Pressure ulcer on the heel INVESTIGATIONS, reviewed in the clinical context: White count 4 hemoglobin 9.5 potassium 4 Assessment: -Left heel stage III pressure ulcer -left second toe osteomyelitis, acute,-having failed outpatient treatment no causing gangrene-status post amputation, POA-multiresistant Pseudomonas -chronic low back pain, likely from spinal stenosis/herniated disc with radiculopathy and down and affect.-likely from L1-L2 and L3-L4 nerve distribution. -Pyoderma gangrenosum -Hyperlipidemia -Essential hypertension -Primary osteoarthritis -Hypothyroid -Chronic medical debility uses a vision -Idiopathic peripheral neuropathy -Chronic venous stasis -Bilateral lower extremity lymphedema -Chronic urinary stress incontinence -Chronic umbilical hernia -Left leg posteriorly, decubitus ulcer, POA -Morbid obesity BMI 42.6 Plan: Discussed with case finishing machine adjuster. Finances allow discharge antibiotics being assessed. Discussed with patient.
[2019-07-15] MEDS: TEMAZEPAM 15 MG CAP PO PRN (23:49)
[2019-07-16] MEDS: LEVOTHYROXINE 100 MCG TAB PO SCH (05:52)
[2019-07-16] MEDS: MULTIVITAMINS, THERA 1 EACH TAB PO SCH (10:40)
[2019-07-16] MEDS: HEPARIN SODIUM,PORCINE 5,000 UNIT/ML 1 ML VIAL SQ SCH (10:41)
[2019-07-16] MEDS: PREGABALIN 100 MG CAP PO SCH (10:41)
[2019-07-16] MEDS: amLODIPine 10 MG TAB PO SCH (10:41)
[2019-07-16] MEDS: PANTOPRAZOLE 40 MG TABLET PO SCH (10:41)
[2019-07-16] MEDS: LISINOPRIL 20 MG TAB PO SCH (10:41)
[2019-07-16] MEDS: CEFTAZIDIME/AVIBACTAM 2.5 GM in SODIUM CHLORIDE 0.9% 100 ML IVPB SCH ×2 (11:04→16:56)
[2019-07-16] MEDS: COLLAGENASE 250 UNIT/GM OINTMENT 30 GM TUBE TOPICAL SCH (11:11)
[2019-07-16 12:20] VITALS: BP 135/61; PULSE 69; RESP 17; TEMP 97.9
[2019-07-16] MEDS: HYDROcodone/APAP 7.5-325MG 1 EACH TAB PO PRN (13:50)
[2019-07-16] MEDS: LACTATED RINGERS 1,000 ML IV SCH (16:57)
--- NOTE | 2019-07-16 18:12 | PN ---
PROGRESS NOTE DATE OF SERVICE: 07/16/2019. REASON FOR FOLLOWUP: Left second toe abscess and cellulitis. INTERVAL HISTORY: The patient is currently afebrile. Patient has been breathing comfortably. Patient denies having any chest pain, no shortness of breath or cough. No nausea, vomiting, abdominal pain. Pain to the left foot. PHYSICAL EXAMINATION: On examination, blood pressure is 135/61 with a pulse of 69, temperature is 97.9. She is 98% on room air. General description is a middle-aged female lying in bed in no distress. Respiratory system: Unlabored breathing. Clear to auscultation anteriorly. Heart S1, S2. Regular rate and rhythm. Abdomen soft, no tenderness. Left foot second toe amputation site looks clean. No significant cellulitis or any drainage. LABS: Hemoglobin is 10.4 with white count 4.8, creatinine 0.79. DIAGNOSTIC IMPRESSION AND PLAN: Patient with left second toe abscess from multidrug resistant Pseudomonas aeruginosa. The patient is status post amputation and post amputation received about 5 days of IV Avycaz, that should be more than enough. We will discharge the patient home on no antibiotics with instructions if any recurrence of pain to the left foot or any worsening swelling or redness or any drainage, to return to the ER right away. Plan of care discussed with the admitting physician working on discharge. EILEEN / RENETTA: [id number] /
--- NOTE | 2019-07-16 19:58 | P.DS ---
Providers Date of admission: 07/08/19 16:30 Expected date of discharge: 07/16/19 Attending physician: Tal Magallanes Consults: 07/08/19 16:30 Consult Physician Urgent Consulting Provider: Luis E Danielson Consult Reason/Comments: Possible osteomyelitis Do you want consulting provider notified?: Yes 07/08/19 20:33 Consult Physician Routine Consulting Provider: Thea Hernandez Consult Reason/Comments: osteo Do you want consulting provider notified?: Yes 07/09/19 00:05 Consult Physician Routine Consulting Provider: Alondra Johnson Consult Reason/Comments: Chest pain Do you want consulting provider notified?: Yes, Notify in am Primary care physician: [facility] Course: Chief Complaint: Infected left second toe History of presenting complaint: This is a pleasant 63-year-old patient of Dr. Mcfarlane. Chronic stable medical conditions include idiopathic peripheral neuropathy, morbid obesity, primary osteoarthritis, essential hypertension, hypothyroid, , urinary stress incontinence, chronic venous stasis, hyperlipidemia, bilateral lower extremity lymphedema, pyoderma gangrenosum. Had a baseline patient uses a wheelchair to get about. Patient was here in the middle of March 2019 and . MRI did confirm osteomyelitis of the left foot second toe. Was treated with IV antibiotics. Was here again in May 07-discharge and IV daptomycin. Admitted with pus draining out of the left second toe. Started antibiotic. July 11 amputation of the left second toe was carried out for gangrene. Cultures grew pseudomonas aeruginosa. Today-doing well. Seen by Dr. Hernandez from ID today. No need for any further antibiotics. Consultation: Dr. Hernandez from ID Dr. Morris from vascular surgery Physical examination: VITAL SIGNS: 97.9, 69, 17, blood pressure 135/61, 98% on room air GENERAL: Sitting up in a recliner, comfortable EYES: Pupils equal. Conjunctiva normal. HEENT: External appearance of nose and ears normal, oral cavity grossly normal. NECK: JVD unable to assess; masses not palpable. HEART: Distal heart sounds; some edema. LUNGS: Respiratory rate normal; distant breath sounds. ABDOMEN: Soft, nontender, liver spleen not palpable, no masses palpable. Umbilical hernia PSYCH: Alert and oriented x3; mood and affect normal. LYMPHATICS: lower extremity lymphedema Left lower extremity: absent first toe, amputation of the left second toe. Pressure ulcer on the heel INVESTIGATIONS, reviewed in the clinical context: White count 4 hemoglobin 9.5 potassium 4 Assessment: -Left heel stage III pressure ulcer -left second toe osteomyelitis, acute,-having failed outpatient treatment no causing gangrene-status post amputation, POA-multiresistant Pseudomonas -chronic low back pain, likely from spinal stenosis/herniated disc with radiculopathy and down and affect.-likely from L1-L2 and L3-L4 nerve distribution. -Pyoderma gangrenosum -Hyperlipidemia -Essential hypertension -Primary osteoarthritis -Hypothyroid -Chronic medical debility uses a vision -Idiopathic peripheral neuropathy -Chronic venous stasis -Bilateral lower extremity lymphedema -Chronic urinary stress incontinence -Chronic umbilical hernia -Left leg posteriorly, decubitus ulcer, POA -Morbid obesity BMI 42.6 Disposition: Home Patient Condition at Discharge: Stable Plan - Discharge Summary Discharge Rx Participant: Yes New Discharge Prescriptions: New amLODIPine [Norvasc] 10 mg PO DAILY #30 tab Collagenase [Santyl] 1 applic TOPICAL DAILY applic Continue Levothyroxine Sodium [Synthroid] 100 mcg PO DAILY Atorvastatin Calcium [Lipitor] 10 mg PO HS Pregabalin [Lyrica] 100 mg PO TID HYDROcodone/APAP 7.5-325MG [[place] 7.5-325] 1 tab PO Q6H PRN PRN Reason: Pain Lisinopril [Zestril] 20 mg PO BID Discontinued amLODIPine [Norvasc] 5 mg PO DAILY PRN PRN Reason: HIGH BLOOD PRESSURE Discharge Medication List Levothyroxine Sodium [Synthroid] 100 mcg PO DAILY 08/29/13 [History] Atorvastatin Calcium [Lipitor] 10 mg PO HS 10/06/18 [History] Pregabalin [Lyrica] 100 mg PO TID 02/03/19 [History] HYDROcodone/APAP 7.5-325MG [[place] 7.5-325] 1 tab PO Q6H PRN 03/18/19 [History] Lisinopril [Zestril] 20 mg PO BID 03/18/19 [History] Collagenase [Santyl] 1 applic TOPICAL DAILY applic 07/16/19 [Rx] amLODIPine [Norvasc] 10 mg PO DAILY #30 tab 07/16/19 [Rx] Follow up Appointment(s)/Referral(s): Adonis Mcfarlane DO [Primary Care Provider] - 1-2 days [facility], [NON-STAFF] - 1-2 Days Luis E Danielson MD [STAFF PHYSICIAN] - 2 Weeks Thea Hernandez MD [STAFF PHYSICIAN] - 2 Weeks John Triplett MD [STAFF PHYSICIAN] - 2 Weeks Patient Instructions/Handouts: Amlodipine (By mouth), Osteomyelitis (DC) Activity/Diet/Wound Care/Special Instructions: diet as tolerated activity limited until seen Call on Thursday to schedule your Dr's appointments
== END 2019-07-16 18:19 | disposition home health service (06) | DRG 503 ==
LOC: EC 13:50 → 5NMEDONC 16:30
PROVIDERS: ADMIT Hospitalist; ATTEND Hospitalist
PROC: 0Y6S0Z0 Detachment at Left 2nd Toe, Complete, Open Approach (ICD-10-PCS; principal; 2019-07-12 07:30)
DX: M86.172 Other acute osteomyelitis, left ankle and foot (principal); L89.623 Pressure ulcer of left heel, stage 3; L88 Pyoderma gangrenosum; Z16.24 Resistance to multiple antibiotics; D61.818 Other pancytopenia; Z68.41 Body mass index [BMI] 40.0-44.9, adult; L02.612 Cutaneous abscess of left foot; G60.9 Hereditary and idiopathic neuropathy, unspecified; B96.5 Pseudomonas (aeruginosa) (mallei) (pseudomallei) as the cause of diseases classified elsewhere; E03.9 Hypothyroidism, unspecified; E66.01 Morbid (severe) obesity due to excess calories; E78.5 Hyperlipidemia, unspecified; I10 Essential (primary) hypertension; I87.8 Other specified disorders of veins; I89.0 Lymphedema, not elsewhere classified; K42.9 Umbilical hernia without obstruction or gangrene; L03.032 Cellulitis of left toe; L97.529 Non-pressure chronic ulcer of other part of left foot with unspecified severity; M19.91 Primary osteoarthritis, unspecified site; N39.3 Stress incontinence (female) (male); L89.892 Pressure ulcer of other site, stage 2; G89.29 Other chronic pain; Z79.890 Hormone replacement therapy; Z79.899 Other long term (current) drug therapy; Z80.1 Family history of malignant neoplasm of trachea, bronchus and lung; Z80.42 Family history of malignant neoplasm of prostate; Z82.49 Family history of ischemic heart disease and other diseases of the circulatory system; Z86.14 Personal history of Methicillin resistant Staphylococcus aureus infection; Z87.440 Personal history of urinary (tract) infections; Z87.891 Personal history of nicotine dependence; Z89.412 Acquired absence of left great toe; Z90.49 Acquired absence of other specified parts of digestive tract; M48.061 Spinal stenosis, lumbar region without neurogenic claudication; M51.16 Intervertebral disc disorders with radiculopathy, lumbar region; Z88.1 Allergy status to other antibiotic agents; Z88.2 Allergy status to sulfonamides
CPT/HCPCS: 36415; 78315; 80048; 80053; 80200; 81003; 82565; 83605; 84484; 85025; 85027; 87040; 87070; 87077; 87186; 87205; 88305; 88311; 93005; 93306; 96365; 96366; 96375; 99285

== ENCOUNTER → 2019-12-26 | Outpatient (CLI) | payer MEDICARE, OTHER ==
[2019-12-26 14:39] LABS: African American GFR (CKD) >90 (>60 ml/min/1.73 sqM); Blood Urea Nitrogen 14 mg/dL (7-17); Non-African American GFR(CKD) >90 (>60 ml/min/1.73 sqM)
--- NOTE | 2019-12-27 15:11 | CT ---
EXAMINATION TYPE: CT ChestAbdPelvis w con DATE OF EXAM: 12/26/2019 COMPARISON: CT chest abdomen pelvis 06/10/2019 HISTORY: Lymphadenopathy. CT DLP: 2515.5 mGycm Automated exposure control for dose reduction was used. CONTRAST: CT scan of the chest, abdomen and pelvis is performed with Oral Contrast and with IV Contrast, patien t injected with 100ml mL of Isovue 300. FINDINGS: LUNGS: Lungs are grossly clear. No concerning parenchymal mass or nodule identified. No pleural effus ion. No pneumothorax. The tracheobronchial tree is patent. MEDIASTINUM/SOFT TISSUES: No axillary, hilar, or mediastinal lymphadenopathy greater than 1 cm. Cardi ac size is normal. No pericardial effusion. No thoracic aortic aneurysm. LIVER: Normal. BILIARY SYSTEM: Status post cholecystectomy. No intrahepatic or extrahepatic biliary ductal dilatatio n. PANCREAS: Normal. SPLEEN: Normal. ADRENALS: Normal. KIDNEYS: Too small to characterize hypodense lesions on the right. No hydronephrosis bilaterally. BOWEL: No obstruction or thickening. Colonic diverticulosis. No acute diverticulitis. Normal appendi x. PERITONEUM: No pneumoperitoneum. No free fluid. Fat-containing umbilical hernia. LYMPH NODES: Redemonstrated retroperitoneal left para-aortic lymph nodes measuring up to 1.0 cm (3:7 2). There are multiple unchanged bilateral common and external iliac lymph nodes measuring up to 1.4 cm (3:103). Right inguinal 1.1 cm lymph node unchanged (3:120). Left inguinal 4.0 x 1.8 cm lymph node (3:124) unchanged from 06/10/2019, and while incompletely visualized on 02/03/2019 CT comparison the axial thickness was 1.7 cm. PELVIS: Urinary bladder unremarkable. Somewhat heterogenous uterus may represent fibroid changes. No adnexal mass. VASCULATURE: No abdominal aortic aneurysm. MUSCULOSKELETAL: No aggressive osseous destructive lesions. Degenerative changes of the spine. IMPRESSION: Mildly enlarged retroperitoneal, pelvic, and inguinal lymph nodes are unchanged from 02/03/2019 CT co mparison.
== END | disposition home or self-care (01) ==
LOC: RADCTMAIN 13:42
PROVIDERS: ATTEND Internal Medicine Hematology & Oncology
DX: R16.0 Hepatomegaly, not elsewhere classified (principal); R59.0 Localized enlarged lymph nodes; Z88.2 Allergy status to sulfonamides
CPT/HCPCS: 82565; 84520; 71260; 74177; 36415; Q9967

== ENCOUNTER 2020-02-19 18:50 | Observation (INO) | payer MEDICARE, OTHER ==
--- NOTE | 2020-02-19 19:29 | ED ---
General Adult HPI - General Chief complaint: Skin/Abscess/Foreign Body Stated complaint: Toe pain Time Seen by Provider: 02/19/20 18:58 Source: patient, RN notes reviewed, old records reviewed Mode of arrival: ambulatory Limitations: no limitations - History of Present Illness Initial comments: Patient is a 64-year-old female who presents emergency department today with chief plan of left foot pain of swelling and redness for the past 7 days. She reports she has history of osteomyelitis and had the first 2 toes removed. Her vascular surgeon is Dr. Danielson. Patient reports that she took a leftover Cipro for the past 3 due to the pain redness and swelling. She is concerned that she has osteomyelitis again. She has a history of neuropathy. Patient reports that she is unsure she may have stepped on anything to cause a source of infection. - Related Data Home Medications Medication Instructions Recorded Confirmed Levothyroxine Sodium [Synthroid] 100 mcg PO DAILY 08/29/13 07/08/19 Atorvastatin Calcium [Lipitor] 10 mg PO HS 10/06/18 07/08/19 Pregabalin [Lyrica] 100 mg PO TID 02/03/19 07/08/19 HYDROcodone/APAP 7.5-325MG [[place] 1 tab PO Q6H PRN 03/18/19 07/08/19 7.5-325] lisinopriL [Zestril] 20 mg PO BID 03/18/19 07/08/19 Previous Rx's Medication Instructions Recorded Collagenase [Santyl] 1 applic TOPICAL DAILY applic 07/16/19 amLODIPine [Norvasc] 10 mg PO DAILY #30 tab 07/16/19 Allergies Allergy/AdvReac Type Severity Reaction Status Date / Time Sulfa (Sulfonamide Allergy Rash/Hives Verified 02/19/20 18:54 Antibiotics) levofloxacin [From Levaquin] AdvReac Itching Verified 02/19/20 18:54 Review of Systems ROS Statement: Those systems with pertinent positive or pertinent negative responses have been documented in the HPI. ROS Other: All systems not noted in ROS Statement are negative. Past Medical History Past Medical History: Hyperlipidemia, Hypertension, Osteoarthritis (OA), Skin Disorder, Thyroid Disorder Additional Past Medical History / Comment(s): Nonambulatory/pivots to wheelchair normally, low back pain, neuropathy bilateral feet, chronic venous stasis, current L heel/L posterior yost/left second toe wounds, L 2nd toe osteomyelitis, bilateral leg cellulitis, past L foot ulcer, lymphedema bilateral legs, DJD, past R ankle fracture x3, UTIs, stress incontinence, chronic anemia, umbilical hernia, hypothyroid, pyodema gangrenosum. History of Any Multi-Drug Resistant Organisms: MRSA, VRE, VRE Date of last positivie culture/infection: 05/06/19-VRE MDRO Source:: Left Foot-VRE, Left Foot and Leg MRSA Past Surgical History: Section, Cholecystectomy, Orthopedic Surgery, Tubal Ligation Additional Past Surgical History / Comment(s): L leg I&D, bilateral knee arthroscopies, L great toe amp d/t nonhealing wound, PICCS, midlines, D&Cs Past Anesthesia/Blood Transfusion Reactions: Previous Problems w/ Anesthesia Additional Past Anesthesia/Blood Transfusion Reaction / Comment(s): Slow to come out of it/muscle weakness Past Psychological History: No Psychological Hx Reported Smoking Status: Never smoker Past Alcohol Use History: None Reported Past Drug Use History: None Reported - Past Family History Father Family Medical History: Cancer, Coronary Artery Disease (CAD), Myocardial Infarction ([place]), Prostate Disorder Additional Family Medical History / Comment(s): Prostate CA. Father in a MVA at the age of 80yrs. Mother Family Medical History: Cancer, CVA/TIA, Hyperlipidemia Additional Family Medical History / Comment(s): Lung CA-left lobe removed. General Exam - General Exam Comments Initial Comments: 64-year-old female. Alert and oriented 3. No distress. Patient is morbidly obese. Limitations: no limitations Head exam: Present: atraumatic, normocephalic, normal inspection Eye exam: Present: normal appearance, PERRL, EOMI. Absent: scleral icterus, conjunctival injection, periorbital swelling ENT exam: Present: normal exam, mucous membranes moist Neck exam: Present: normal inspection. Absent: tenderness, meningismus, lymphadenopathy Respiratory exam: Present: normal lung sounds bilaterally Cardiovascular Exam: Present: regular rate, normal rhythm, normal heart sounds. Absent: systolic murmur, diastolic murmur, rubs, gallop, clicks Left Lower Leg exam: Present: swelling. Absent: normal inspection Ankle exam: Present: full ROM, swelling. Absent: normal inspection Foot/Toe exam: Absent: normal inspection (Patient has first and second toe amputation. She has erythema and swelling over the third toe. She has evidence of chronic peripheral vascular disease with thickened skin and edema bilaterally.) Gait: observed and normal Back exam: Present: normal inspection Neurological exam: Present: alert Course Vital Signs 02/19/20 02/19/20 18:51 20:08 Temperature 97.9 F Pulse Rate 97 80 Respiratory 20 18 Rate Blood Pressure 141/89 102/50 O2 Sat by Pulse 99 96 Oximetry Medical Decision Making - Medical Decision Making 64-year-old female presents the ER today for evaluation for complaints of pain and redness and swelling to the left third toe. She's had previous indications of person second toe by Dr. Danielson years ago. Patient has history of neuropathy and peripheral vascular disease. Doppler pulse was obtained over the dorsalis pedis. She does have erythema and edema extending over the third toe at the metatarsal area. She's been taking Cipro for the past 3 days. IV was established blood work obtained. Started on IV Zosyn. X-ray today shows no current sign of osteomyelitis. With taking the Cipro for the past 3 days and redness discussed. Patient on IV antibiotic for failure of outpatient treatment. We'll consult Dr. Danielson. Discussed case with Dr. Ponce who discussed with the [facility] hospitalist. - Lab Data Result diagrams: 02/19/20 19:45 02/19/20 19:45 Lab Results 02/19/20 02/19/20 02/19/20 Range/Units 19:45 19:45 19:45 WBC 4.9 (3.8-10.6) k/uL RBC 3.88 (3.80-5.40) m/uL Hgb 11.8 (11.4-16.0) gm/dL Hct 36.6 (34.0-46.0) % MCV 94.1 (80.0-100.0) fL MCH 30.3 (25.0-35.0) pg MCHC 32.2 (31.0-37.0) g/dL RDW 13.7 (11.5-15.5) % Plt Count 126 L (150-450) k/uL Neutrophils % 75 % Lymphocytes % 15 % Monocytes % 6 % Eosinophils % 1 % Basophils % 1 % Neutrophils # 3.7 (1.3-7.7) k/uL Lymphocytes # 0.7 L (1.0-4.8) k/uL Monocytes # 0.3 (0-1.0) k/uL Eosinophils # 0.1 (0-0.7) k/uL Basophils # 0.0 (0-0.2) k/uL Sodium 138 (137-145) mmol/L Potassium 5.1 (3.5-5.1) mmol/L Chloride 107 (98-107) mmol/L Carbon Dioxide 24 (22-30) mmol/L Anion Gap 7 mmol/L BUN 20 H (7-17) mg/dL Creatinine 0.90 (0.52-1.04) mg/dL Est GFR (CKD-EPI)AfAm 78 (>60 ml/min/1.73 sqM) Est GFR (CKD-EPI)NonAf 68 (>60 ml/min/1.73 sqM) Glucose 86 (74-99) mg/dL Plasma Lactic Acid Lm 1.4 (0.7-2.0) mmol/L Calcium 9.8 (8.4-10.2) mg/dL Total Bilirubin 0.9 (0.2-1.3) mg/dL AST 33 (14-36) U/L ALT 13 (4-34) U/L Alkaline Phosphatase 144 H (38-126) U/L C-Reactive Protein 11.7 H (<10.0) mg/L Total Protein 7.3 (6.3-8.2) g/dL Albumin 4.3 (3.5-5.0) g/dL - Radiology Data Radiology results: report reviewed Amputation deformities. Soft tissue swelling. No specific sign of osteomyelitis. There is a beautician of the second toe compared old exam. Disposition Clinical Impression: Cellulitis of foot, Failure of outpatient treatment Disposition: ADMITTED IP TO THIS HOSP Is patient prescribed a controlled substance at d/c from ED?: No Referrals: Adonis Mcfarlane DO [Primary Care Provider] - 1-2 days Time of Disposition: 20:17
[2020-02-19] MEDS: SODIUM CHLORIDE 0.9% 1,000 ML IV SCH (19:47)
[2020-02-19 19:57] LABS: Basophils % (A) 1 %; Eosinophils # (A) 0.1 k/uL (0-0.7); Eosinophils % (A) 1 %; HCT 36.6 % (34.0-46.0); HGB 11.8 gm/dL (11.4-16.0); Lymphocytes # (A) 0.7 k/uL (1.0-4.8); Lymphocytes % (A) 15 %; MCH 30.3 pg (25.0-35.0); MCHC 32.2 g/dL (31.0-37.0); MCV 94.1 fL (80.0-100.0); Monocytes # (A) 0.3 k/uL (0-1.0); Monocytes % (A) 6 %; Neutrophils # (A) 3.7 k/uL (1.3-7.7); Neutrophils % (A) 75 %; Platelet Count 126 k/uL (150-450); RBC 3.88 m/uL (3.80-5.40); RDW 13.7 % (11.5-15.5); WBC 4.9 k/uL (3.8-10.6)
--- NOTE | 2020-02-19 19:58 | XR ---
EXAMINATION TYPE: XR foot complete LT DATE OF EXAM: 02/19/2020 COMPARISON: 07/08/2019 HISTORY: Pain and swelling TECHNIQUE: 3 views FINDINGS: There is amputation deformity of the big toe at the level of the neck of the first metatars al head. There is application of the second toe at the base of the proximal phalanx of the second toe . There is diffuse soft tissue swelling. I see no focal bone destruction. There is moderate plantar a nd Achilles calcaneal spurring. IMPRESSION: Amputation deformities. Soft tissue swelling. No specific sign of osteomyelitis. There is amputation of the second toe compared to old exam.
[2020-02-19] MEDS ORDERED: PIPERACILLIN-TAZOBACTAM 3.375 GM in SODIUM CHLORIDE 0.9% 100 ML IVPB STA (19:59)
[2020-02-19] MEDS ORDERED: MORPHINE SULFATE 4 MG/ML SYRINGE IVP STA (19:59)
[2020-02-19 20:08] LABS: Albumin 4.3 g/dL (3.5-5.0); C Reactive Protein 11.7 mg/L (<10.0); Calcium 9.8 mg/dL (8.4-10.2); Total Bilirubin 0.9 mg/dL (0.2-1.3); Total Protein 7.3 g/dL (6.3-8.2)
[2020-02-19 20:09] LABS: Potassium 5.1 mmol/L (3.5-5.1)
[2020-02-19] MEDS ORDERED: NALOXONE 0.4 MG/ML 1 ML VIAL IV PRN (20:17)
[2020-02-19] MEDS ORDERED: ACETAMINOPHEN TAB 325 MG TAB PO PRN (20:17)
[2020-02-19] MEDS ORDERED: ONDANSETRON 4 MG/2 ML VIAL IVP PRN (20:17)
[2020-02-19] MEDS ORDERED: MORPHINE SULFATE 4 MG/ML SYRINGE IV PRN (20:17)
[2020-02-19] MEDS ORDERED: IBUPROFEN 400 MG TAB PO PRN (20:17)
[2020-02-19] MEDS ORDERED: HYDROcodone/APAP 5-325MG 1 EACH TAB PO PRN (20:17)
[2020-02-19] MEDS ORDERED: ATORVASTATIN 10 MG TAB PO SCH (21:00)
[2020-02-19] MEDS: lisinopriL 20 MG TAB PO SCH (21:51)
[2020-02-19] MEDS: HYDROcodone/APAP 7.5-325MG 1 EACH TAB PO PRN (21:51)
[2020-02-19] MEDS: PREGABALIN 100 MG CAP PO SCH (21:51)
[2020-02-20 02:24] VITALS: RESP 18
[2020-02-20] MEDS: HYDROcodone/APAP 7.5-325MG 1 EACH TAB PO PRN ×2 (05:47→16:39)
[2020-02-20] MEDS: SODIUM CHLORIDE 0.9% 1,000 ML IV SCH (05:49)
[2020-02-20] MEDS ORDERED: LEVOTHYROXINE 100 MCG TAB PO SCH (06:30)
[2020-02-20] MEDS: lisinopriL 20 MG TAB PO SCH (07:02)
[2020-02-20 07:12] VITALS: BP 89/50; PULSE 67; TEMP 97.5
[2020-02-20] MEDS: PREGABALIN 100 MG CAP PO SCH ×2 (07:48→14:59)
[2020-02-20] MEDS ORDERED: amLODIPine 10 MG TAB PO SCH (09:00)
[2020-02-20] MEDS ORDERED: COLLAGENASE 250 UNIT/GM OINTMENT 30 GM TUBE TOPICAL SCH (09:00)
--- NOTE | 2020-02-20 12:34 | P.GSCN ---
History of Present Illness History of present illness: 64-year-old white female, well known to me from the wound clinic patient to has history of 4 recurrent cellulitis of the both lower extremity and also patient had a left foot second toe and and big to remove in the past. Patient came with some discomfort and pain in the left foot Medical history history of obesity, history of hypertension, On examination neck supple no bruit appreciated Chest is clear few crackles the lung bases Abdomen soft nontender Lower extremity patient has a femoral 1+ patient has a healed big toe and second toe post amputation no discharge noted there is no open wound noted and mild cellulitis noted and the lower extremity Plan is patient i ALLERGY to sulfa we will U some lotion for the lower extremity and at this point There is no open wound no evidence of any infection noted other than this mild cellulitis if patient discharged and follow-up in the wound clinic Past Medical History Past Medical History: Hyperlipidemia, Hypertension, Osteoarthritis (OA), Skin Disorder, Thyroid Disorder Additional Past Medical History / Comment(s): Nonambulatory/pivots to wheelchair normally, low back pain, neuropathy bilateral feet, chronic venous stasis, past L heel/L posterior yost/left second toe wounds, past L 2nd toe osteomyelitis-now amptuated, L great toe amptutated; bilateral leg cellulitis, lymphedema left leg, past R ankle fracture x3, UTIs, urinary stress incontinence, chronic anemia, umbilical hernia, hypothyroid, pyoderma gangrenosum. 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 Source:: Left Foot-VRE, Left Foot and Leg MRSA Past Surgical History: Section, Cholecystectomy, Orthopedic Surgery, Tubal Ligation Additional Past Surgical History / Comment(s): L leg I&D, bilateral knee ar throscopies, L great toe and 2nd toe amp d/t nonhealing wounds, PICCS, midlines, D&Cs Past Anesthesia/Blood Transfusion Reactions: Previous Problems w/ Anesthesia Additional Past Anesthesia/Blood Transfusion Reaction / Comm: Slow to come out of it/muscle weakness Past Psychological History: No Psychological Hx Reported, Depression Additional Psychological History / Comment(s): Patient states she normally can pivot to wheelchair. Previously had [facility]. 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 She gets rides through [employer]. 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 No trave. No experience. No animals in the home. Smoking Status: Never smoker Past Alcohol Use History: None Reported Additional Past Alcohol Use History / Comment(s): Pt started smoking in 1970 and quit in 1990. Past Drug Use History: None Reported - Past Family History Father Family Medical History: Cancer, Coronary Artery Disease (CAD), Myocardial Infarction ([place]), Prostate Disorder Additional Family Medical History / Comment(s): Prostate CA. Father in a MVA at the age of 80yrs. Mother Family Medical History: Cancer, CVA/TIA, Hyperlipidemia Additional Family Medical History / Comment(s): Lung CA-left lobe removed. Medications and Allergies Home Medications Medication Instructions Recorded Confirmed Type Levothyroxine Sodium [Synthroid] 100 mcg PO DAILY 08/29/13 02/19/20 History Atorvastatin Calcium [Lipitor] 10 mg PO HS 10/06/18 02/19/20 History Pregabalin [Lyrica] 100 mg PO TID 02/03/19 02/19/20 History HYDROcodone/APAP 7.5-325MG [[place] 1 tab PO Q6H PRN 03/18/19 02/19/20 History 7.5-325] lisinopriL [Zestril] 20 mg PO BID 03/18/19 02/19/20 History amLODIPine [Norvasc] 5 mg PO DAILY PRN 02/19/20 02/19/20 History Allergies Allergy/AdvReac Type Severity Reaction Status Date / Time Sulfa (Sulfonamide Allergy Rash/Hives Verified 02/19/20 20:24 Antibiotics) levofloxacin [From Levaquin] AdvReac Itching Verified 02/19/20 20:24 Surgical - Exam Vital Signs Temp Pulse Resp BP Pulse Ox 97.9 F 97 20 141/89 99 02/19/20 18:51 02/19/20 18:51 02/19/20 18:51 02/19/20 18:51 02/19/20 18:51 Results - Labs 02/19/20 19:45 02/19/20 19:45 Abnormal Lab Results - Last 24 Hours (Table) 02/19/20 02/19/20 Range/Units 19:45 19:45 Plt Count 126 L (150-450) k/uL Lymphocytes # 0.7 L (1.0-4.8) k/uL BUN 20 H (7-17) mg/dL Alkaline Phosphatase 144 H (38-126) U/L C-Reactive Protein 11.7 H (<10.0) mg/L Diabetes panel 02/19/20 Range/Units 19:45 Sodium 138 (137-145) mmol/L Potassium 5.1 (3.5-5.1) mmol/L Chloride 107 (98-107) mmol/L Carbon Dioxide 24 (22-30) mmol/L BUN 20 H (7-17) mg/dL Creatinine 0.90 (0.52-1.04) mg/dL Glucose 86 (74-99) mg/dL Calcium 9.8 (8.4-10.2) mg/dL AST 33 (14-36) U/L ALT 13 (4-34) U/L Alkaline Phosphatase 144 H (38-126) U/L Total Protein 7.3 (6.3-8.2) g/dL Albumin 4.3 (3.5-5.0) g/dL Calcium panel 02/19/20 Range/Units 19:45 Calcium 9.8 (8.4-10.2) mg/dL Albumin 4.3 (3.5-5.0) g/dL Pituitary panel 02/19/20 Range/Units 19:45 Sodium 138 (137-145) mmol/L Potassium 5.1 (3.5-5.1) mmol/L Chloride 107 (98-107) mmol/L Carbon Dioxide 24 (22-30) mmol/L BUN 20 H (7-17) mg/dL Creatinine 0.90 (0.52-1.04) mg/dL Glucose 86 (74-99) mg/dL Calcium 9.8 (8.4-10.2) mg/dL Adrenal panel 02/19/20 Range/Units 19:45 Sodium 138 (137-145) mmol/L Potassium 5.1 (3.5-5.1) mmol/L Chloride 107 (98-107) mmol/L Carbon Dioxide 24 (22-30) mmol/L BUN 20 H (7-17) mg/dL Creatinine 0.90 (0.52-1.04) mg/dL Glucose 86 (74-99) mg/dL Calcium 9.8 (8.4-10.2) mg/dL Total Bilirubin 0.9 (0.2-1.3) mg/dL AST 33 (14-36) U/L ALT 13 (4-34) U/L Alkaline Phosphatase 144 H (38-126) U/L Total Protein 7.3 (6.3-8.2) g/dL Albumin 4.3 (3.5-5.0) g/dL
--- NOTE | 2020-02-20 12:46 | P.GSCN ---
History of Present Illness History of present illness: 64-year-old gentleman, patient has been admitted with the sepsis patient has multiple medical problem including including acute chronic kidney failure on dialysis patient has history of endocarditis and also patient has history of diabetes peripheral vascular disease chronic wound wound to the both lower extremity I was consulted for removal of the dialysis catheter patient has a fistula in the left arm there been using dialysis catheter for for dialysis 3 times a week Plan is patient is going for dialysis we will remove the dialysis catheter today and send the tip for culture and sensitivity follow with you thank you Past Medical History Past Medical History: Hyperlipidemia, Hypertension, Osteoarthritis (OA), Skin Disorder, Thyroid Disorder Additional Past Medical History / Comment(s): Nonambulatory/pivots to wheelchair normally, low back pain, neuropathy bilateral feet, chronic venous stasis, past L heel/L posterior yost/left second toe wounds, past L 2nd toe osteomyelitis-now amptuated, L great toe amptutated; bilateral leg cellulitis, lymphedema left leg, past R ankle fracture x3, UTIs, urinary stress incontinence, chronic anemia, umbilical hernia, hypothyroid, pyoderma gangrenosum. 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 Source:: Left Foot-VRE, Left Foot and Leg MRSA Past Surgical History: Section, Cholecystectomy, Orthopedic Surgery, Tubal Ligation Additional Past Surgical History / Comment(s): L leg I&D, bilateral knee arthroscopies, L great toe and 2nd toe amp d/t nonhealing wounds, PICCS, midlines, D&Cs Past Anesthesia/Blood Transfusion Reactions: Previous Problems w/ Anesthesia Additional Past Anesthesia/Blood Transfusion Reaction / Comm: Slow to come out of it/muscle weakness Past Psychological History: No Psychological Hx Reported, Depression Additional Psychological History / Comment(s): Patient states she normally can pivot to wheelchair. Previously had [facility]. 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 She gets rides through [employer]. 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 No trave. No experience. No animals in the home. Smoking Status: Never smoker Past Alcohol Use History: None Reported Additional Past Alcohol Use History / Comment(s): Pt started smoking in 1970 and quit in 1990. Past Drug Use History: None Reported - Past Family History Father Family Medical History: Cancer, Coronary Artery Disease (CAD), Myocardial Infarction ([place]), Prostate Disorder Additional Family Medical History / Comment(s): Prostate CA. Father in a MVA at the age of 80yrs. Mother Family Medical History: Cancer, CVA/TIA, Hyperlipidemia Additional Family Medical History / Comment(s): Lung CA-left lobe removed. Medications and Allergies Home Medications Medication Instructions Recorded Confirmed Type Levothyroxine Sodium [Synthroid] 100 mcg PO DAILY 08/29/13 02/19/20 History Atorvastatin Calcium [Lipitor] 10 mg PO HS 10/06/18 02/19/20 History Pregabalin [Lyrica] 100 mg PO TID 02/03/19 02/19/20 History HYDROcodone/APAP 7.5-325MG [[place] 1 tab PO Q6H PRN 03/18/19 02/19/20 History 7.5-325] lisinopriL [Zestril] 20 mg PO BID 03/18/19 02/19/20 History amLODIPine [Norvasc] 5 mg PO DAILY PRN 02/19/20 02/19/20 History Allergies Allergy/AdvReac Type Severity Reaction Status Date / Time Sulfa (Sulfonamide Allergy Rash/Hives Verified 02/19/20 20:24 Antibiotics) levofloxacin [From Levaquin] AdvReac Itching Verified 02/19/20 20:24 Surgical - Exam Vital Signs Temp Pulse Resp BP Pulse Ox 97.9 F 97 20 141/89 99 02/19/20 18:51 02/19/20 18:51 02/19/20 18:51 02/19/20 18:51 02/19/20 18:51 Results - Labs 02/19/20 19:45 02/19/20 19:45 Abnormal Lab Results - Last 24 Hours (Table) 02/19/20 02/19/20 Range/Units 19:45 19:45 Plt Count 126 L (150-450) k/uL Lymphocytes # 0.7 L (1.0-4.8) k/uL BUN 20 H (7-17) mg/dL Alkaline Phosphatase 144 H (38-126) U/L C-Reactive Protein 11.7 H (<10.0) mg/L Diabetes panel 02/19/20 Range/Units 19:45 Sodium 138 (137-145) mmol/L Potassium 5.1 (3.5-5.1) mmol/L Chloride 107 (98-107) mmol/L Carbon Dioxide 24 (22-30) mmol/L BUN 20 H (7-17) mg/dL Creatinine 0.90 (0.52-1.04) mg/dL Glucose 86 (74-99) mg/dL Calcium 9.8 (8.4-10.2) mg/dL AST 33 (14-36) U/L ALT 13 (4-34) U/L Alkaline Phosphatase 144 H (38-126) U/L Total Protein 7.3 (6.3-8.2) g/dL Albumin 4.3 (3.5-5.0) g/dL Calcium panel 02/19/20 Range/Units 19:45 Calcium 9.8 (8.4-10.2) mg/dL Albumin 4.3 (3.5-5.0) g/dL Pituitary panel 02/19/20 Range/Units 19:45 Sodium 138 (137-145) mmol/L Potassium 5.1 (3.5-5.1) mmol/L Chloride 107 (98-107) mmol/L Carbon Dioxide 24 (22-30) mmol/L BUN 20 H (7-17) mg/dL Creatinine 0.90 (0.52-1.04) mg/dL Glucose 86 (74-99) mg/dL Calcium 9.8 (8.4-10.2) mg/dL Adrenal panel 02/19/20 Range/Units 19:45 Sodium 138 (137-145) mmol/L Potassium 5.1 (3.5-5.1) mmol/L Chloride 107 (98-107) mmol/L Carbon Dioxide 24 (22-30) mmol/L BUN 20 H (7-17) mg/dL Creatinine 0.90 (0.52-1.04) mg/dL Glucose 86 (74-99) mg/dL Calcium 9.8 (8.4-10.2) mg/dL Total Bilirubin 0.9 (0.2-1.3) mg/dL AST 33 (14-36) U/L ALT 13 (4-34) U/L Alkaline Phosphatase 144 H (38-126) U/L Total Protein 7.3 (6.3-8.2) g/dL Albumin 4.3 (3.5-5.0) g/dL
--- NOTE | 2020-02-20 15:37 | P.HPIM ---
History of Present Illness 64-year-old female came in with compensative right foot pain starting in the third toe radiating up to the mid foot area. Denied history of possible colitis of the first 2 toes and those were amputated there is known that they in that area. Patient was started on Zosyn and subsequently admitted. Patient didn't and doesn't have any pain in the calf. On exam patient the has minimal or no cellulitis in the third toe without any wound. She is ALLERGIC to sulfa drugs will be discharged on clindamycin. Patient blood pressure is low on consistent basis apparently patient has low blood pressures at home as well patient has not been taking amlodipine on daily basis and patient is also on a very high-dose Isopril 20 mg twice a day with the high normal potassium of 5.1. Review of Systems REVIEW OF SYSTEMS: CONSTITUTIONAL: No fever, no malaise, no fatigue. HEENT: No recent visual problems or hearing problems. Denied any sore throat. CARDIOVASCULAR: No chest pain, orthopnea, PND, no palpitations, no syncope. PULMONARY: No shortness of breath, no cough, no hemoptysis. GASTROINTESTINAL: No diarrhea, no nausea, no vomiting, no abdominal pain. NEUROLOGICAL: No headaches, no weakness, no numbness. HEMATOLOGICAL: Denies any bleeding or petechiae. GENITOURINARY: Denies any burning micturition, frequency, or urgency. MUSCULOSKELETAL/RHEUMATOLOGICAL: Denies any joint pain, swelling, or any muscle pain. ENDOCRINE: Denies any polyuria or polydipsia. The rest of the 14-point review of systems is negative. Past Medical History Past Medical History: Hyperlipidemia, Hypertension, Osteoarthritis (OA), Skin Disorder, Thyroid Disorder Additional Past Medical History / Comment(s): Nonambulatory/pivots to wheelchair normally, low back pain, neuropathy bilateral feet, chronic venous stasis, past L heel/L posterior yost/left second toe wounds, past L 2nd toe osteomyelitis-now amptuated, L great toe amptutated; bilateral leg cellulitis, lymphedema left leg, past R ankle fracture x3, UTIs, urinary stress incontinence, chronic anemia, umbilical hernia, hypothyroid, pyoderma gangrenosum. History of Any Multi-Drug Resistant Organisms: MRSA, VRE, VRE Date of last positivie culture/infection: 1/10/20-VRE MDRO Source:: Left Foot-VRE, Left Foot and Leg MRSA Past Surgical History: Section, Cholecystectomy, Orthopedic Surgery, Tubal Ligation Additional Past Surgical History / Comment(s): L leg I&D, bilateral knee arthroscopies, L great toe and 2nd toe amp d/t nonhealing wounds, PICCS, midlines, D&Cs Past Anesthesia/Blood Transfusion Reactions: Previous Problems w/ Anesthesia Additional Past Anesthesia/Blood Transfusion Reaction / Comment(s): Slow to come out of it/muscle weakness Past Psychological History: No Psychological Hx Reported, Depression Additional Psychological History / Comment(s): Patient states she normally can pivot to wheelchair. Previously had [facility]. 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 She gets rides through [employer]. 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 No trave. No experience. No animals in the home. Smoking Status: Never smoker Past Alcohol Use History: None Reported Additional Past Alcohol Use History / Comment(s): Pt started smoking in 1970 and quit in 1990. Past Drug Use History: None Reported - Past Family History Father Family Medical History: Cancer, Coronary Artery Disease (CAD), Myocardial Infarction ([place]), Prostate Disorder Additional Family Medical History / Comment(s): Prostate CA. Father in a MVA at the age of 80yrs. Mother Family Medical History: Cancer, CVA/TIA, Hyperlipidemia Additional Family Medical History / Comment(s): Lung CA-left lobe removed. Medications and Allergies Home Medications Medication Instructions Recorded Confirmed Type Levothyroxine Sodium [Synthroid] 100 mcg PO DAILY 08/29/13 02/19/20 History Atorvastatin Calcium [Lipitor] 10 mg PO HS 10/06/18 02/19/20 History Pregabalin [Lyrica] 100 mg PO TID 02/03/19 02/19/20 History HYDROcodone/APAP 7.5-325MG [[place] 1 tab PO Q6H PRN 03/18/19 02/19/20 History 7.5-325] Clindamycin [Cleocin] 300 mg PO Q8HR #15 cap 02/20/20 Rx lisinopriL [Zestril] 10 mg PO DAILY #0 02/20/20 02/19/20 Rx traMADol HCL [Ultram] 50 mg PO Q4HR PRN 3 Days #18 tab 02/20/20 Rx Allergies Allergy/AdvReac Type Severity Reaction Status Date / Time Sulfa (Sulfonamide Allergy Rash/Hives Verified 02/19/20 20:24 Antibiotics) levofloxacin [From Levaquin] AdvReac Itching Verified 02/19/20 20:24 Physical Exam Vitals: Vital Signs Temp Pulse Pulse Resp BP BP Pulse Ox 02/20/20 07:48 67 18 02/20/20 07:00 97.5 F L 67 18 89/50 99 02/20/20 01:21 97.9 F 75 18 96/54 95 02/20/20 00:00 80 16 02/19/20 21:10 97.6 F 80 16 125/74 98 02/19/20 20:47 98.1 F 81 16 106/58 99 02/19/20 20:08 80 18 102/50 96 02/19/20 18:51 97.9 F 97 20 141/89 99 Intake and Output 02/20/20 02/20/20 02/20/20 06:59 14:59 22:59 Intake Total 700 Balance 700 Intake: Intake, IV Titration 700 Amount Sodium Chloride 0.9% 1, 700 000 ml @ 100 mls/hr IV . Q10H [facility] Rx#:[id number] Other: Voiding Method Bedside Commode Bedside Commode # Voids 1 PHYSICAL EXAMINATION: GENERAL: The patient is alert and oriented x3, not in any acute distress. Well d eveloped, well nourished. HEENT: Pupils are round and equally reacting to light. EOMI. No scleral icterus. No conjunctival pallor. Normocephalic, atraumatic. No pharyngeal erythema. No thyromegaly. CARDIOVASCULAR: S1 and S2 present. No murmurs, rubs, or gallops. PULMONARY: Chest is clear to auscultation, no wheezing or crackles. ABDOMEN: Soft, nontender, nondistended, normoactive bowel sounds. No palpable organomegaly. MUSCULOSKELETAL: No joint swelling or deformity. EXTREMITIES: No cyanosis, clubbing, or shunt has some chronic edema of both legs with some venous stasis dermatosis without any evidence of facilities except for mild redness in the third toe area NEUROLOGICAL: Gross neurological examination did not reveal any focal deficits. SKIN: May be mild redness in the third toe area there are no ulcers. Results CBC & Chem 7: 02/19/20 19:45 02/19/20 19:45 Labs: Abnormal Lab Results - Last 24 Hours (Table) 02/19/20 02/19/20 Range/Units 19:45 19:45 Plt Count 126 L (150-450) k/uL Lymphocytes # 0.7 L (1.0-4.8) k/uL BUN 20 H (7-17) mg/dL Alkaline Phosphatase 144 H (38-126) U/L C-Reactive Protein 11.7 H (<10.0) mg/L Thrombosis Risk Factor Assmnt - Choose All That Apply Each Factor Represents 1 point: Swollen legs (current) Other Risk Factors: Yes Each Risk Factor Represents 2 Points: Age 61-74 years Other congenital or acquired thrombophilia - If yes, enter type in comment: No Thrombosis Risk Factor Assessment Total Risk Factor Score: 3 Thrombosis Risk Factor Assessment Level: Moderate Risk Assessment and Plan Plan: -Toe pain: Imaging did not show any significant fractures. There may be mild cellulitis for which patient will be prescribed 5 days of clindamycin. There is no open wound at this time. -Up attention: Patient is actually hypotensive on consistent basis. Amlodipine will be completely discontinued and we'll cut down the dose of lisinopril to 10 mg patient was asked to check the blood pressure at home patient was actually asked to hold off on antidepressant medications today and tomorrow -Hyperthyroidism -Chronic venous stasis with chronic venous stasis dermatosis -History of osteomyelitis and amputation for left 2 toes history of lymphedema in the past -History of MRSA in the past. Patient will be discharged today will continue with clindamycin. Patient will follow-up with vascular surgery and the primary care physician Dr. Mcfarlane as an outpatient
--- NOTE | 2020-02-20 15:37 | P.DS ---
Providers Date of admission: 02/19/20 20:07 Attending physician: Wagner Howe Consults: 02/19/20 20:17 Consult Physician Stat Consulting Provider: Luis E Danielson Consult Reason/Comments: Foot cellulitis, failure outpt tx, hx osteomyelitis Do you want consulting provider notified?: Yes, Notify in am [facility] care physician: [facility] Course: Please refer to my HPI for further details Plan - Discharge Summary Discharge Rx Participant: Yes New Discharge Prescriptions: New traMADol HCL [Ultram] 50 mg PO Q4HR PRN 3 Days #18 tab PRN Reason: Pain Clindamycin [Cleocin] 300 mg PO Q8HR #15 cap Continue Levothyroxine Sodium [Synthroid] 100 mcg PO DAILY Atorvastatin Calcium [Lipitor] 10 mg PO HS Pregabalin [Lyrica] 100 mg PO TID HYDROcodone/APAP 7.5-325MG [[place] 7.5-325] 1 tab PO Q6H PRN PRN Reason: Pain Changed lisinopriL [Zestril] 10 mg PO DAILY #0 Discontinued amLODIPine [Norvasc] 5 mg PO DAILY PRN PRN Reason: SBP>110 Discharge Medication List Levothyroxine Sodium [Synthroid] 100 mcg PO DAILY 08/29/13 [History] Atorvastatin Calcium [Lipitor] 10 mg PO HS 10/06/18 [History] Pregabalin [Lyrica] 100 mg PO TID 02/03/19 [History] HYDROcodone/APAP 7.5-325MG [[place] 7.5-325] 1 tab PO Q6H PRN 03/18/19 [History] Clindamycin [Cleocin] 300 mg PO Q8HR #15 cap 02/20/20 [Rx] lisinopriL [Zestril] 10 mg PO DAILY #0 02/20/20 [Rx] traMADol HCL [Ultram] 50 mg PO Q4HR PRN 3 Days #18 tab 02/20/20 [Rx] Follow up Appointment(s)/Referral(s): Adonis Mcfarlane DO [Primary Care Provider] - 3 Days (office will call with appointment time) Luis E Danielson MD [STAFF PHYSICIAN] - 02/29/20 11:00 am Patient Instructions/Handouts: Cellulitis (DC) Discharge Disposition: HOME SELF-CARE
== END 2020-02-20 18:13 | disposition home or self-care (01) ==
LOC: EC 18:50 → 4SSUR 20:07
PROVIDERS: ADMIT Hospitalist; ATTEND Hospitalist
DX: L03.119 Cellulitis of unspecified part of limb (principal); M79.671 Pain in right foot; E03.9 Hypothyroidism, unspecified; E05.90 Thyrotoxicosis, unspecified without thyrotoxic crisis or storm; E78.5 Hyperlipidemia, unspecified; I10 Essential (primary) hypertension; I73.9 Peripheral vascular disease, unspecified; I87.8 Other specified disorders of veins; Z79.890 Hormone replacement therapy; Z79.899 Other long term (current) drug therapy; Z82.49 Family history of ischemic heart disease and other diseases of the circulatory system; Z86.14 Personal history of Methicillin resistant Staphylococcus aureus infection; Z87.891 Personal history of nicotine dependence; Z88.2 Allergy status to sulfonamides
CPT/HCPCS: 96376; 96366; 96365; 96375; 99285; 36415; 80053; 83605; 85025; 86140; 87040; 73630; G0378 ×2; J2543; J2270 ×2

== ENCOUNTER 2020-04-05 23:09 | Inpatient (IN) | payer MEDICARE ==
[2020-04-06] MEDS ORDERED: VANCOMYCIN IV PER PHARMACY 1 EACH MISC MISCELLANE PRN (00:11)
[2020-04-06] MEDS ORDERED: MORPHINE SULFATE 4 MG/ML SYRINGE IV STA (00:11)
[2020-04-06] MEDS ORDERED: SODIUM CHLORIDE 0.9% 1,000 ML IV STA (00:11)
[2020-04-06] MEDS ORDERED: NALOXONE 0.4 MG/ML 1 ML VIAL IV PRN (00:12)
--- NOTE | 2020-04-06 00:16 | ED ---
Recheck HPI - General Chief Complaint: Extremity Injury, Lower Stated Complaint: LT foot pain Time Seen by Provider: 04/05/20 23:16 Source: patient, EMS, RN notes reviewed, old records reviewed Mode of arrival: EMS Limitations: no limitations - History of Present Illness Initial Comments: This is a 64-year-old female the concrete medical history, patient is recurrent cellulitis with amputation, patient coming with left leg pain and swelling open ulcer to the calf area as well as significant pain in middle to. No fevers. No injury or trauma noted MD Complaint: wound re-check, other (Severe pain cellulitis and swelling of left lower extremity, open wound calf) Returns Today for: needs IV antibiotics, persistent/worsening pain related to initial visit Symptoms Since Prior Visit: worsening pain, worsening swelling, worsening redness, worsening discharge Associated Symptoms: none - Related Data Home Medications Medication Instructions Recorded Confirmed Levothyroxine Sodium [Synthroid] 100 mcg PO DAILY 08/29/13 02/19/20 Atorvastatin Calcium [Lipitor] 10 mg PO HS 10/06/18 02/19/20 Pregabalin [Lyrica] 100 mg PO TID 02/03/19 02/19/20 HYDROcodone/APAP 7.5-325MG [[place] 1 tab PO Q6H PRN 03/18/19 02/19/20 7.5-325] Previous Rx's Medication Instructions Recorded Clindamycin [Cleocin] 300 mg PO Q8HR #15 cap 02/20/20 lisinopriL [Zestril] 10 mg PO DAILY #0 02/20/20 traMADol HCL [Ultram] 50 mg PO Q4HR PRN 3 Days #18 tab 02/20/20 Allergies Allergy/AdvReac Type Severity Reaction Status Date / Time Sulfa (Sulfonamide Allergy Rash/Hives Verified 02/19/20 20:24 Antibiotics) levofloxacin [From Levaquin] AdvReac Itching Verified 02/19/20 20:24 Review of Systems ROS Statement: Those systems with pertinent positive or pertinent negative responses have been documented in the HPI. ROS Other: All systems not noted in ROS Statement are negative. Past Medical History Past Medical History: Hyperlipidemia, Hypertension, Osteoarthritis (OA), Skin Disorder, Thyroid Disorder Additional Past Medical History / Comment(s): Nonambulatory/pivots to wheelchair normally, low back pain, neuropathy bilateral feet, chronic venous stasis, past L heel/L posterior yost/left second toe wounds, past L 2nd toe osteomyelitis-now amptuated, L great toe amptutated; bilateral leg cellulitis, lymphedema left leg, past R ankle fracture x3, UTIs, urinary stress incontinence, chronic anemia, umbilical hernia, hypothyroid, pyoderma gangrenosum. History of Any Multi-Drug Resistant Organisms: MRSA, VRE, VRE Date of last positivie culture/infection: 05/06/19-VRE MDRO Source:: Left Foot-VRE, Left Foot and Leg MRSA Past Surgical History: Section, Cholecystectomy, Orthopedic Surgery, Tubal Ligation Additional Past Surgical History / Comment(s): L leg I&D, bilateral knee ar throscopies, L great toe and 2nd toe amp d/t nonhealing wounds, PICCS, midlines, D&Cs Past Anesthesia/Blood Transfusion Reactions: Previous Problems w/ Anesthesia Additional Past Anesthesia/Blood Transfusion Reaction / Comment(s): Slow to come out of it/muscle weakness Past Psychological History: No Psychological Hx Reported, Depression Smoking Status: Never smoker Past Alcohol Use History: None Reported Past Drug Use History: None Reported - Past Family History Father Family Medical History: Cancer, Coronary Artery Disease (CAD), Myocardial Infarction ([place]), Prostate Disorder Additional Family Medical History / Comment(s): Prostate CA. Father in a MVA at the age of 80yrs. Mother Family Medical History: Cancer, CVA/TIA, Hyperlipidemia Additional Family Medical History / Comment(s): Lung CA-left lobe removed. General Exam Limitations: no limitations General appearance: alert, in no apparent distress, obese Head exam: Present: atraumatic, normocephalic, normal inspection Eye exam: Present: normal appearance, PERRL, EOMI. Absent: scleral icterus, conjunctival injection, periorbital swelling ENT exam: Present: normal exam, mucous membranes moist Neck exam: Present: normal inspection. Absent: tenderness, meningismus, lymphadenopathy Respiratory exam: Present: normal lung sounds bilaterally. Absent: respiratory distress, wheezes, rales, rhonchi, stridor Cardiovascular Exam: Present: regular rate, normal rhythm, normal heart sounds. Absent: systolic murmur, diastolic murmur, rubs, gallop, clicks GI/Abdominal exam: Present: soft, normal bowel sounds. Absent: distended, tenderness, guarding, rebound, rigid Extremities exam: Present: normal inspection, full ROM, normal capillary refill. Absent: tenderness, pedal edema, joint swelling, calf tenderness Back exam: Present: normal inspection Neurological exam: Present: alert, oriented X3, CN II-XII intact Psychiatric exam: Present: normal affect, normal mood Skin exam: Present: warm, dry, intact, normal color. Absent: rash Course Vital Signs 04/05/20 23:14 Temperature 97.0 F L Pulse Rate 75 Respiratory 16 Rate Blood Pressure 140/70 O2 Sat by Pulse 99 Oximetry - Reevaluation(s) Reevaluation #1: 04/06/20 00:15 Medical records reviewed Reevaluation #2: 04/06/20 00:15 Symptoms improved - Consultations Consultation #1: Spoke withmony Magallanes who agrees to admit Medical Decision Making - Medical Decision Making 64 female DF for evaluation patient Dese for evaluation regards to significant left middle toe pain. Patient have cellulitis with [place] myelitis of left lower extremity - Lab Data Result diagrams: 04/06/20 00:17 04/06/20 00:17 - Radiology Data Radiology results: report reviewed (XR left foot is negative for acute disaese, inc edema, bony destruction), image reviewed Disposition Clinical Impression: Cellulitis of foot, Cellulitis of left foot, Morbid obesity Narrative: ro Osteomyelitis Disposition: ADMITTED IP TO THIS HOSP Condition: Fair Is patient prescribed a controlled substance at d/c from ED?: No
[2020-04-06 00:29] LABS: Basophils # (A) 0.1 k/uL (0-0.2); Basophils % (A) 1 %; Eosinophils # (A) 0.1 k/uL (0-0.7); Eosinophils % (A) 2 %; HCT 31.2 % (34.0-46.0); HGB 10.6 gm/dL (11.4-16.0); Lymphocytes # (A) 0.7 k/uL (1.0-4.8); Lymphocytes % (A) 15 %; MCH 30.9 pg (25.0-35.0); MCHC 34.1 g/dL (31.0-37.0); MCV 90.6 fL (80.0-100.0); Mean Platelet Volume 8.9; Monocytes # (A) 0.4 k/uL (0-1.0); Monocytes % (A) 7 %; Neutrophils # (A) 3.5 k/uL (1.3-7.7); Neutrophils % (A) 73 %; Platelet Count 137 k/uL (150-450); RBC 3.45 m/uL (3.80-5.40); RDW 13.3 % (11.5-15.5); WBC 4.9 k/uL (3.8-10.6)
[2020-04-06 00:42] LABS: Partial Thromboplastin Time 25.9 sec (22.0-30.0)
[2020-04-06 00:44] LABS: ALT 9 U/L (4-34); AST 22 U/L (14-36); African American GFR (CKD) >90 (>60 ml/min/1.73 sqM); Albumin 3.4 g/dL (3.5-5.0); Alkaline Phosphatase 137 U/L (38-126); Anion Gap 5 mmol/L; Blood Urea Nitrogen 14 mg/dL (7-17); Calcium 9.5 mg/dL (8.4-10.2); Carbon Dioxide 28 mmol/L (22-30); Chloride 106 mmol/L (98-107); Glucose 80 mg/dL (74-99); Magnesium 1.9 mg/dL (1.6-2.3); Non-African American GFR(CKD) 86 (>60 ml/min/1.73 sqM); Phosphorus 3.4 mg/dL (2.5-4.5); Potassium 3.9 mmol/L (3.5-5.1); Sodium 139 mmol/L (137-145); Total Bilirubin 0.5 mg/dL (0.2-1.3); Total Protein 6.1 g/dL (6.3-8.2)
--- NOTE | 2020-04-06 00:58 | XR ---
EXAM: XR Left Foot Complete, 3 or More Views CLINICAL HISTORY: ITS.REASON XR Reason: pain TECHNIQUE: Frontal, lateral and oblique views of the left foot. COMPARISON: Left foot radiographs 02/19/20 FINDINGS: Bones/joints: Bones are osteopenic. There is stable appearance of first ray amputation at the level of the first metatarsal neck and second ray amputation at the level of the base of the proximal phalanx. There is questionable lucency in the terminal tuft of the third distal phalanx. Otherwise, no obvious erosive changes are seen to suggest acute osteomyelitis. There is no acute fracture or dislocation. Plantar calcaneal enthesopathy is unchanged. Soft tissues: Diffuse soft tissue swelling. No soft tissue gas. No radiopaque foreign body. IMPRESSION: 1. Stable appearance of first and second ray amputations. No evidence of acute osteomyelitis in these locations. 2. Questionable lucency in the terminal tuft of the third distal phalanx, and acute osteomyelitis in this location cannot be excluded. 3. Soft tissue swelling.
[2020-04-06] MEDS ORDERED: VANCOMYCIN 2,500 MG in SODIUM CHLORIDE 0.9% 500 ML 500 ML IVPB ONE (01:00)
[2020-04-06] MEDS ORDERED: diphenhydrAMINE 50 MG/ML 1 ML VIAL IVP STA (05:28)
[2020-04-06] MEDS ORDERED: MORPHINE SULFATE 4 MG/ML SYRINGE IVP STA (08:00)
[2020-04-06] MEDS ORDERED: lisinopriL 10 MG TAB PO SCH (11:00)
[2020-04-06] MEDS: PREGABALIN 100 MG CAP PO SCH ×2 (12:26→21:18)
[2020-04-06] MEDS: LEVOTHYROXINE 100 MCG TAB PO SCH (12:26)
[2020-04-06] MEDS: lisinopriL 10 MG TAB PO SCH ×3 (12:26→21:19)
[2020-04-06] MEDS: NAPROXEN 250 MG TAB PO SCH ×2 (12:28→21:17)
[2020-04-06] MEDS: HYDROcodone/APAP 7.5-325MG 1 EACH TAB PO PRN ×2 (12:40→21:14)
[2020-04-06] MEDS ORDERED: VANCOMYCIN 2,500 MG in SODIUM CHLORIDE 0.9% 500 ML 500 ML IVPB SCH (14:00)
[2020-04-06] MEDS: VANCOMYCIN 2,000 MG in SODIUM CHLORIDE 0.9% 500 ML 500 ML IVPB SCH (15:37)
[2020-04-06 15:52] VITALS: BMI 46.4
--- NOTE | 2020-04-06 20:22 | P.HPIM ---
History of Present Illness H&P Date: 04/06/20 Chief Complaint: Painful swollen toe History of presenting complaint: This is a pleasant 63-year-old patient of Dr. Mcfarlane. Chronic stable medical conditions include idiopathic peripheral neuropathy, morbid obesity, primary osteoarthritis, essential hypertension, hypothyroid, , urinary stress incontinence, chronic venous stasis, hyperlipidemia, bilateral lower extremity lymphedema, pyoderma gangrenosum, chronic low back pain.. uses a wheelchair to get about. Patient now presents to the ER with cellulitis and increasing pain in the left foot middle toe and a superficial ulcer to the left cough area and cervical pain to the middle toe. Denies any fever. Significant pain. Going on for about a week. Patient pretty much in the wheelchair all the time. Sometimes will pivot Review of systems GEN.: Tired EYES: None HEENT: None NECK: None RESPIRATORY: None CARDIOVASCULAR: None GASTROINTESTINAL: None GENITOURINARY: Incontinence MUSCULOSKELETAL: As above LYMPHATICS: Chronic lower extremity lymphedema HEMATOLOGICAL: None PSYCHIATRY: None NEUROLOGICAL: Uses a wheelchair Past medical history: Hyperlipidemia, hypertension, osteoarthritis, hypothyroid, uses wheelchair, peripheral neuropathy, chronic venous stasis, bilateral lower extremity lymphedema, urinary stress incontinence, lymph edema, umbilical hernia, hypothyroid. 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 Smoked for [address] opped in 1990. Alcohol rarely. Physical examination: VITAL SIGNS: 97, 75, 16, 140/70, 99% room air GENERAL: BMI 46.4, laying in bed, not in distress EYES: Pupils equal. Conjunctiva normal. HEENT: External appearance of nose and ears normal, oral cavity grossly normal. NECK: JVD unable to assess; masses not palpable. HEART: Distal heart sounds; some edema. LUNGS: Respiratory rate normal; distant breath sounds. ABDOMEN: Soft, nontender, liver spleen not palpable, no masses palpable. Umbi lical hernia PSYCH: Alert and oriented x3; mood and affect normal. LYMPHATICS: lower extremity lymphedema MUSCULAR skeletal: lower extremity with venous is insufficiency and lymphedema, chronic skin changes Left lower extremity: absent first and second toe, middle toe is inflamed with surrounding anything inflamed. Superficial discoloration of skin in the calf area INVESTIGATIONS, reviewed in the clinical context: White count 4.9 hemoglobin 10.6 platelets 137 potassium 3.9 creatinine 0.74 Left foot [id number] lucency in the terminal tuft of the third distal phalanx. Soft tissue swelling Assessment: -left third toe acutely inflamed, with surrounding areas of redness tenderness. /Dactylitis acute. Acute osteomyelitis in the differential -chronic low back pain, likely from spinal stenosis/herniated disc with radiculopathy and down and affect.-likely from L1-L2 and L3-L4 nerve distribution. -History of Pyoderma gangrenosum -Hyperlipidemia -Essential hypertension -Primary osteoarthritis -Hypothyroid -Chronic medical debility uses wheelchair -Idiopathic peripheral neuropathy -Chronic venous stasis -Bilateral lower extremity lymphedema -Chronic urinary stress incontinence -Chronic umbilical hernia -Left leg posteriorly, decubitus ulcer, POA -Morbid obesity BMI 46.4 Plan: She started IV ceftriaxone and Zosyn in the ER. Consultation to vascular surgery and Dr. Brown from ID. Home medications resumed. Care was discussed with the patient. Pain medications. Lovenox for DVT prophylaxis. Check ESR Past Medical History Past Medical History: Hyperlipidemia, Hypertension, Osteoarthritis (OA), Skin Disorder, Thyroid Disorder Additional Past Medical History / Comment(s): Nonambulatory/pivots to wheelchair normally, low back pain, neuropathy bilateral feet, chronic venous stasis, past L heel/L posterior yost/left second toe wounds, past L 2nd toe osteomyelitis-now amptuated, L great toe amptutated; bilateral leg cellulitis, lymphedema left leg, past R ankle fracture x3, UTIs, urinary stress incontinence, chronic anemia, umbilical hernia, hypothyroid, pyoderma gangrenosum. History of Any Multi-Drug Resistant Organisms: MRSA, VRE, VRE Date of last positivie culture/infection: 05/06/19-VRE MDRO Source:: Left Foot-VRE, Left Foot and Leg MRSA Past Surgical History: Section, Cholecystectomy, Orthopedic Surgery, Tubal Ligation Additional Past Surgical History / Comment(s): L leg I&D, bilateral knee arthroscopies, L great toe and 2nd toe amp d/t nonhealing wounds, PICCS, midlines, D&Cs Past Anesthesia/Blood Transfusion Reactions: Previous Problems w/ Anesthesia Additional Past Anesthesia/Blood Transfusion Reaction / Comment(s): Slow to come out of it/muscle weakness Past Psychological History: No Psychological Hx Reported, Depression Smoking Status: Never smoker Past Alcohol Use History: None Reported Past Drug Use History: None Reported - Past Family History Father Family Medical History: Cancer, Coronary Artery Disease (CAD), Myocardial Infarction ([place]), Prostate Disorder Additional Family Medical History / Comment(s): Prostate CA. Father in a MVA at the age of 80yrs. Mother Family Medical History: Cancer, CVA/TIA, Hyperlipidemia Additional Family Medical History / Comment(s): Lung CA-left lobe removed. Medications and Allergies Home Medications Medication Instructions Recorded Confirmed Type Levothyroxine Sodium [Synthroid] 100 mcg PO DAILY 08/29/13 04/06/20 History Atorvastatin Calcium [Lipitor] 10 mg PO HS 10/06/18 04/06/20 History Pregabalin [Lyrica] 100 mg PO TID 02/03/19 04/06/20 History HYDROcodone/APAP 7.5-325MG [[place] 1 tab PO Q6H PRN 03/18/19 04/06/20 History 7.5-325] lisinopriL [Zestril] 10 mg PO DAILY #0 02/20/20 04/06/20 Rx Allergies Allergy/AdvReac Type Severity Reaction Status Date / Time Sulfa (Sulfonamide Allergy Rash/Hives Verified 04/06/20 06:42 Antibiotics) levofloxacin [From Levaquin] AdvReac Itching Verified 04/06/20 06:42 Physical Exam Vitals: Vital Signs Temp Pulse Resp BP Pulse Ox 04/06/20 07:10 75 18 111/71 98 04/05/20 23:14 97.0 F L 75 16 140/70 99 Intake and Output 04/05/20 04/06/20 04/06/20 22:59 06:59 14:59 Other: Weight 138.532 kg Results CBC & Chem 7: 04/06/20 00:17 04/06/20 00:17 Labs: Abnormal Lab Results - Last 24 Hours (Table) 04/06/20 04/06/20 Range/Units 00:17 00:17 RBC 3.45 L (3.80-5.40) m/uL Hgb 10.6 L (11.4-16.0) gm/dL Hct 31.2 L (34.0-46.0) % Plt Count 137 L (150-450) k/uL Lymphocytes # 0.7 L (1.0-4.8) k/uL Alkaline Phosphatase 137 H (38-126) U/L Total Protein 6.1 L (6.3-8.2) g/dL Albumin 3.4 L (3.5-5.0) g/dL
[2020-04-06] MEDS: ATORVASTATIN 10 MG TAB PO SCH (21:16)
[2020-04-06] MEDS: ENOXAPARIN 40 MG/0.4 ML SYRINGE SQ SCH (21:18)
[2020-04-07] MEDS: diphenhydrAMINE 50 MG/ML 1 ML VIAL IVP PRN ×2 (00:08→08:17)
[2020-04-07] MEDS: HYDROcodone/APAP 7.5-325MG 1 EACH TAB PO PRN ×2 (05:48→20:29)
[2020-04-07] MEDS: LEVOTHYROXINE 100 MCG TAB PO SCH (05:48)
[2020-04-07] MEDS: NAPROXEN 250 MG TAB PO SCH ×2 (08:18→20:20)
[2020-04-07] MEDS: ENOXAPARIN 40 MG/0.4 ML SYRINGE SQ SCH ×2 (08:19→08:24)
[2020-04-07] MEDS: VANCOMYCIN 2,000 MG in SODIUM CHLORIDE 0.9% 500 ML 500 ML IVPB SCH (08:19)
[2020-04-07] MEDS: PREGABALIN 100 MG CAP PO SCH ×3 (08:20→20:21)
[2020-04-07] MEDS: lisinopriL 10 MG TAB PO SCH ×2 (09:40→20:21)
--- NOTE | 2020-04-07 10:46 | P.GSHP ---
History of Present Illness 64-year-old white female, patient is well known to me from the wound clinic she is been coming to the wound clinic for cellulitis and a ulcer on the left lower extremity this patient had a left foot big toe and second toe amputation done by me in the past. Now she has come with the third toe some some redness and mild drainage noted the wound is superficial at the nailbed. Patient also has a superficial wound on the lateral aspect of the of the leg with mild cellulitis patient has history of diabetes obesity and peripheral vascular disease Neck examination neck is supple no bruit appreciated Chest bilateral crackles noted pulses second sound present Abdomen soft nontender Vascular femorals are 1+ bilateral left leg has marked cellulitis with superficial ulcer on the lateral aspect of the leg and also on the left foot third toe at the nailbed there is a mild drainage and some redness noted Plan is we took the culture from the third toe, we will use Aquacel silver to the third toe and on the lateral aspect of the leg 1 pillow elevation continue with IV antibiotic we changed the silver every 48 hours patient will follow in the wound clinic discharge or any and if this toe gets more drainage or infected she been need some surgical intervention follow with you Past Medical History Past Medical History: Hyperlipidemia, Hypertension, Osteoarthritis (OA), Skin Disorder, Thyroid Disorder Additional Past Medical History / Comment(s): Nonambulatory/pivots to wheelchair normally, low back pain, neuropathy bilateral feet, chronic venous stasis, past L heel/L posterior yost/left second toe wounds, past L 2nd toe osteomyelitis-now amptuated, L great toe amptutated; bilateral leg cellulitis, lymphedema left leg, past R ankle fracture x3, UTIs, urinary stress incontinence, chronic anemia, umbilical hernia, hypothyroid, pyoderma gangrenosum. History of Any Multi-Drug Resistant Organisms: MRSA, VRE, VRE Date of last positivie culture/infection: 05/06/19-VRE MDRO Source:: Left Foot-VRE, Left Foot and Leg MRSA Past Surgical History: Section, Cholecystectomy, Orthopedic Surgery, Tubal Ligation Additional Past Surgical History / Comment(s): L leg I&D, bilateral knee arthroscopies, L great toe and 2nd toe amp d/t nonhealing wounds, PICCS, midlines, D&Cs Past Anesthesia/Blood Transfusion Reactions: Previous Problems w/ Anesthesia Additional Past Anesthesia/Blood Transfusion Reaction / Comment(s): Slow to come out of it/muscle weakness Past Psychological History: No Psychological Hx Reported, Depression Smoking Status: Never smoker Past Alcohol Use History: None Reported Past Drug Use History: None Reported - Past Family History Father Family Medical History: Cancer, Coronary Artery Disease (CAD), Myocardial Infarction ([place]), Prostate Disorder Additional Family Medical History / Comment(s): Prostate CA. Father in a MVA at the age of 80yrs. Mother Family Medical History: Cancer, CVA/TIA, Hyperlipidemia Additional Family Medical History / Comment(s): Lung CA-left lobe removed. Medications and Allergies Home Medications Medication Instructions Recorded Confirmed Type Levothyroxine Sodium [Synthroid] 100 mcg PO DAILY 08/29/13 04/06/20 History Atorvastatin Calcium [Lipitor] 10 mg PO HS 10/06/18 04/06/20 History Pregabalin [Lyrica] 100 mg PO TID 02/03/19 04/06/20 History HYDROcodone/APAP 7.5-325MG [[place] 1 tab PO Q6H PRN 03/18/19 04/06/20 History 7.5-325] lisinopriL [Zestril] 10 mg PO DAILY #0 02/20/20 04/06/20 Rx Allergies Allergy/AdvReac Type Severity Reaction Status Date / Time Sulfa (Sulfonamide Allergy Rash/Hives Verified 04/06/20 06:42 Antibiotics) levofloxacin [From Levaquin] AdvReac Itching Verified 04/06/20 06:42 Surgical - Exam Vital Signs Temp Pulse Resp BP Pulse Ox 97.0 F L 75 16 140/70 99 04/05/20 23:14 04/05/20 23:14 04/05/20 23:14 04/05/20 23:14 04/05/20 23:14 Results - Labs 04/06/20 00:17 04/06/20 00:17 Microbiology - Last 24 Hours (Table) 04/06/20 00:17 Blood Culture - Preliminary Blood No Growth after 24 hours
[2020-04-07 12:35] LABS: African American GFR (CKD) 89.7 (60.0-200.0); Non-African American GFR(CKD) 77.4 (60.0-200.0)
--- NOTE | 2020-04-07 20:01 | P.PN ---
Progress Note - Text Progress Note Date: 04/07/20 Chief Complaint: Painful swollen toe History of presenting complaint: This is a pleasant 63-year-old patient of Dr. Mcfarlane. Chronic stable medical conditions include idiopathic peripheral neuropathy, morbid obesity, primary osteoarthritis, essential hypertension, hypothyroid, , urinary stress incontinence, chronic venous stasis, hyperlipidemia, bilateral lower extremity lymphedema, pyoderma gangrenosum, chronic low back pain.. uses a wheelchair to get about. Patient now presents to the ER with cellulitis and increasing pain in the left foot middle toe and a superficial ulcer to the left cough area and cervical pain to the middle toe. Denies any fever. Significant pain. Going on for about a week. Patient pretty much in the wheelchair all the time. Sometimes will pivot. Started on IV ceftriaxone and vancomycin. Today-laying in bed. Tolerating diet. Seen by Dr. Danielson. Continue with current treatment plan. Review of systems: Was done for constitutional, cardiovascular, GI, pulmonary. relevant finding as above Active Medications Acetaminophen (Acetaminophen Tab 325 Mg Tab) 650 mg PO Q6HR PRN PRN Reason: Fever and/ or Pain Hydrocodone Bitart/Acetaminophen (Hydrocodone/Apap 7.5-325mg 1 Each Tab) 1 each PO Q6H PRN PRN Reason: Pain Last Admin: 04/07/20 05:48 Dose: 1 each Documented by: Atorvastatin Calcium (Atorvastatin 10 Mg Tab) 10 mg PO HS [facility] Last Admin: 04/06/20 21:16 Dose: 10 mg Documented by: Diphenhydramine HCl (Diphenhydramine 50 Mg/Ml 1 Ml Vial) 25 mg IVP Q6HR PRN PRN Reason: Allergy Symptoms Last Admin: 04/07/20 08:17 Dose: 25 mg Documented by: Enoxaparin Sodium (Enoxaparin 40 Mg/0.4 Ml Syringe) 40 mg SQ DAILY [facility] Last Admin: 04/07/20 08:24 Dose: 40 mg Documented by: Ceftriaxone Sodium 1 gm/ (Sodium Chloride) 50 mls @ 100 mls/hr IVPB Q12H [facility] Last Admin: 04/07/20 13:30 Dose: 100 mls/hr Documented by: Vancomycin HCl 2,000 mg/ (Sodium Chloride) 500 mls @ 167 mls/hr IVPB Q16H [facility] Last Admin: 04/07/20 08:19 Dose: 167 mls/hr Documented by: Levothyroxine Sodium (Levothyroxine 100 Mcg Tab) 100 mcg PO DAILY@0630 [facility] Last Admin: 04/07/20 05:48 Dose: 100 mcg Documented by: Lisinopril (Lisinopril 10 Mg Tab) 10 mg PO BID [facility] Last Admin: 04/07/20 09:40 Dose: Not Given Documented by: Naloxone HCl (Naloxone 0.4 Mg/Ml 1 Ml Vial) 0.2 mg IV Q2M PRN PRN Reason: Opioid Reversal Naproxen (Naproxen 250 Mg Tab) 250 mg PO BID [facility] Last Admin: 04/07/20 08:18 Dose: 250 mg Documented by: Pregabalin (Pregabalin 100 Mg Cap) 100 mg PO TID [facility] Last Admin: 04/07/20 15:34 Dose: 100 mg Documented by: Physical examination: VITAL SIGNS: 98.2, 62, 16, 112 x 70, 97% room air GENERAL: BMI 46.4, laying in bed, comfortable EYES: Pupils equal. Conjunctiva normal. HEENT: External appearance of nose and ears normal, oral cavity grossly normal. NECK: JVD unable to assess; masses not palpable. HEART: Distal heart sounds; some edema. LUNGS: Respiratory rate normal; distant breath sounds. ABDOMEN: Soft, nontender, liver spleen not palpable, no masses palpable. Umbilical hernia PSYCH: Alert and oriented x3; mood and affect normal. LYMPHATICS: lower extremity lymphedema MUSCULAR skeletal: lower extremity with venous is insufficiency and lymphe peter, chronic skin changes Left lower extremity: absent first and second toe, middle toe is inflamed with surrounding anything inflamed. Superficial discoloration of skin in the calf area INVESTIGATIONS, reviewed in the clinical context: April 07: Creatinine 0.8 ESR 37 White count 4.9 hemoglobin 10.6 platelets 137 potassium 3.9 creatinine 0.74 Left foot [id number] lucency in the terminal tuft of the third distal phalanx. Soft tissue swelling Assessment: -left third toe acutely inflamed, with surrounding areas of redness tenderness. /Dactylitis acute. Acute osteomyelitis in the differential -chronic low back pain, likely from spinal stenosis/herniated disc with radiculopathy and down and affect.-likely from L1-L2 and L3-L4 nerve distribution. -History of Pyoderma gangrenosum -Hyperlipidemia -Essential hypertension -Primary osteoarthritis -Hypothyroid -Chronic medical debility uses wheelchair -Idiopathic peripheral neuropathy -Chronic venous stasis -Bilateral lower extremity lymphedema -Chronic urinary stress incontinence -Chronic umbilical hernia -Left leg posteriorly, decubitus ulcer, POA -Morbid obesity BMI 46.4 Plan: Continue IV ceftriaxone and vancomycin. Other medications to continue. Seen by vascular surgery. Await input from ID. Discussed with patient..
[2020-04-07] MEDS: ATORVASTATIN 10 MG TAB PO SCH (20:20)
[2020-04-08] MEDS: diphenhydrAMINE 50 MG/ML 1 ML VIAL IVP PRN (00:03)
[2020-04-08] MEDS: VANCOMYCIN 2,000 MG in SODIUM CHLORIDE 0.9% 500 ML 500 ML IVPB SCH ×2 (00:22→15:55)
[2020-04-08] MEDS: LEVOTHYROXINE 100 MCG TAB PO SCH (05:38)
[2020-04-08 06:20] LABS: Basophils % (A) 0 %; Eosinophils # (A) 0.1 k/uL (0-0.7); Eosinophils % (A) 3 %; HCT 30.1 % (34.0-46.0); HGB 9.8 gm/dL (11.4-16.0); Hypochromasia Slight; Lymphocytes # (A) 0.5 k/uL (1.0-4.8); Lymphocytes % (A) 13 %; MCH 30.8 pg (25.0-35.0); MCHC 32.7 g/dL (31.0-37.0); MCV 94.2 fL (80.0-100.0); Mean Platelet Volume 9.3; Monocytes # (A) 0.3 k/uL (0-1.0); Monocytes % (A) 9 %; Neutrophils # (A) 2.7 k/uL (1.3-7.7); Neutrophils % (A) 71 %; Platelet Count 114 k/uL (150-450); RBC 3.19 m/uL (3.80-5.40); RDW 13.7 % (11.5-15.5); WBC 3.8 k/uL (3.8-10.6)
[2020-04-08] MEDS: NAPROXEN 250 MG TAB PO SCH ×2 (08:16→20:28)
[2020-04-08] MEDS: lisinopriL 10 MG TAB PO SCH ×2 (08:16→20:28)
[2020-04-08] MEDS: HYDROcodone/APAP 7.5-325MG 1 EACH TAB PO PRN (08:16)
[2020-04-08] MEDS: ENOXAPARIN 40 MG/0.4 ML SYRINGE SQ SCH (08:17)
[2020-04-08] MEDS: PREGABALIN 100 MG CAP PO SCH ×3 (08:17→20:28)
[2020-04-08 09:51] LABS: African American GFR (CKD) 89.7 (60.0-200.0); Non-African American GFR(CKD) 77.4 (60.0-200.0)
--- NOTE | 2020-04-08 19:56 | P.PN ---
Progress Note - Text Progress Note Date: 04/08/20 Chief Complaint: Painful swollen toe History of presenting complaint: This is a pleasant 63-year-old patient of Dr. Mcfarlane. Chronic stable medical conditions include idiopathic peripheral neuropathy, morbid obesity, primary osteoarthritis, essential hypertension, hypothyroid, , urinary stress incontinence, chronic venous stasis, hyperlipidemia, bilateral lower extremity lymphedema, pyoderma gangrenosum, chronic low back pain.. uses a wheelchair to get about. Patient now presents to the ER with cellulitis and increasing pain in the left foot middle toe and a superficial ulcer to the left cough area and cervical pain to the middle toe. Denies any fever. Significant pain. Going on for about a week. Patient pretty much in the wheelchair all the time. Sometimes will pivot. Started on IV ceftriaxone and vancomycin. Today-laying in bed. Pain is a bit better in the toe. Tolerating a diet. No fever. Review of systems: Was done for constitutional, cardiovascular, GI, pulmonary. relevant finding as above Active Medications Acetaminophen (Acetaminophen Tab 325 Mg Tab) 650 mg PO Q6HR PRN PRN Reason: Fever and/ or Pain Hydrocodone Bitart/Acetaminophen (Hydrocodone/Apap 7.5-325mg 1 Each Tab) 1 each PO Q6H PRN PRN Reason: Pain Last Admin: 04/08/20 08:16 Dose: 1 each Documented by: Atorvastatin Calcium (Atorvastatin 10 Mg Tab) 10 mg PO HS [facility] Last Admin: 04/07/20 20:20 Dose: 10 mg Documented by: Diphenhydramine HCl (Diphenhydramine 50 Mg/Ml 1 Ml Vial) 25 mg IVP Q6HR PRN PRN Reason: Allergy Symptoms Last Admin: 04/08/20 00:03 Dose: 25 mg Documented by: Enoxaparin Sodium (Enoxaparin 40 Mg/0.4 Ml Syringe) 40 mg SQ DAILY [facility] Last Admin: 04/08/20 08:17 Dose: 40 mg Documented by: Ceftriaxone Sodium 1 gm/ (Sodium Chloride) 50 mls @ 100 mls/hr IVPB Q12H [facility] Last Admin: 04/08/20 12:56 Dose: 100 mls/hr Documented by: Vancomycin HCl 2,000 mg/ (Sodium Chloride) 500 mls @ 167 mls/hr IVPB Q16H [facility] Last Admin: 12/13/20 15:55 Dose: 167 mls/hr Documented by: Levothyroxine Sodium (Levothyroxine 100 Mcg Tab) 100 mcg PO DAILY@0630 [facility] Last Admin: 04/08/20 05:38 Dose: 100 mcg Documented by: Lisinopril (Lisinopril 10 Mg Tab) 10 mg PO BID [facility] Last Admin: 04/08/20 08:16 Dose: 10 mg Documented by: Naloxone HCl (Naloxone 0.4 Mg/Ml 1 Ml Vial) 0.2 mg IV Q2M PRN PRN Reason: Opioid Reversal Naproxen (Naproxen 250 Mg Tab) 250 mg PO BID [facility] Last Admin: 04/08/20 08:16 Dose: 250 mg Documented by: Pregabalin (Pregabalin 100 Mg Cap) 100 mg PO TID [facility] Last Admin: 04/08/20 15:55 Dose: 100 mg Documented by: Physical examination: VITAL SIGNS: 97.7, 66, 18, 1 36 x 88, 95% room air GENERAL: , laying in bed, comfortable EYES: Pupils equal. Conjunctiva normal. NECK: JVD unable to assess; masses not palpable. HEART: Distal heart sounds; some edema. LUNGS: Respiratory rate normal; distant breath sounds. ABDOMEN: Soft, nontender, liver spleen not palpable, no masses palpable. Umbilical hernia PSYCH: Alert and oriented x3; mood and affect normal. LYMPHATICS: lower extremity lymphedema MUSCULAR skeletal: lower extremity with venous is insufficiency and lymphedema, chronic skin changes Left lower extremity: absent first and second toe, middle toe is inflamed with surrounding anything inflamed. Superficial discoloration of skin in the calf area INVESTIGATIONS, reviewed in the clinical context: April 08: White count 3.8 hemoglobin 9.8 platelets 114 April 07: Creatinine 0.8 ESR 37 White count 4.9 hemoglobin 10.6 platelets 137 potassium 3.9 creatinine 0.74 Left foot [id number] lucency in the terminal tuft of the third distal phalanx. Soft tissue swelling Assessment: -left third toe acutely inflamed, with surrounding areas of redness tenderness. /Dactylitis acute. Acute osteomyelitis in the differential -chronic low back pain, likely from spinal stenosis/herniated disc with radiculopathy and down and affect.-likely from L1-L2 and L3-L4 nerve distribution. -History of Pyoderma gangrenosum -Hyperlipidemia -Essential hypertension -Primary osteoarthritis -Hypothyroid -Chronic medical debility uses wheelchair -Idiopathic peripheral neuropathy -Chronic venous stasis -Bilateral lower extremity lymphedema -Chronic urinary stress incontinence -Chronic umbilical hernia -Left leg posteriorly, decubitus ulcer, POA -Morbid obesity BMI 46.4 Plan: Continue IV ceftriaxone and vancomycin. Other medications to continue. Seen by vascular surgery. ID consulted. Discussed with patient.
[2020-04-08] MEDS: ATORVASTATIN 10 MG TAB PO SCH (20:28)
--- NOTE | 2020-04-08 22:16 | P.CONS ---
History of Present Illness - Reason for Consult Consult date: 04/07/20 left 3rd toe infection Requesting physician: Tal Magallanes - Chief Complaint left 3rd toe swelling and redness x few days - History of Present Illness Patient is a 64-year-old female with a past medical history significant for diabetic foot infection requiring amputation of the left first and second toe patient presenting to the ER at [facility] yesterday for pain swelling and redness to her left third toe apparently started a few days before the patient presented to hospital patient denies having any history of any trauma patient did have the same just blew up and become more swollen and red denies any purulent drainage denies high-grade fever presentation to the hospital patient was afebrile patient did have a normal white count sed rate of 37 creatinine was normal patient did have local wound cultures obtained which are currently pending patient did have x-rays of the left foot which did show some questionable lucency in the terminal tuft of the third distal phalanx with concern for osteomyelitis patient was started on vancomycin Rocephin infectious disease was consulted for further management of antibiotic therapy Review of Systems Positive point has been mentioned in HPI rest of the systems are negative Past Medical History Past Medical History: Hyperlipidemia, Hypertension, Osteoarthritis (OA), Skin Disorder, Thyroid Disorder Additional Past Medical History / Comment(s): Nonambulatory/pivots to wheelchair normally, low back pain, neuropathy bilateral feet, chronic venous stasis, past L heel/L posterior yost/left second toe wounds, past L 2nd toe osteomyelitis-now amptuated, L great toe amptutated; bilateral leg cellulitis, lymphedema left leg, past R ankle fracture x3, UTIs, urinary stress incontinence, chronic anemia, umbilical hernia, hypothyroid, pyoderma gangrenosum. 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 Source:: Left Foot-VRE, Left Foot and Leg MRSA Past Surgical History: Section, Cholecystectomy, Orthopedic Surgery, Tubal Ligation Additional Past Surgical History / Comment(s): L leg I&D, bilateral knee arthroscopies, L great toe and 2nd toe amp d/t nonhealing wounds, PICCS, midlines, D&Cs Past Anesthesia/Blood Transfusion Reactions: Previous Problems w/ Anesthesia Additional Past Anesthesia/Blood Transfusion Reaction / Comm: Slow to come out of it/muscle weakness Past Psychological History: No Psychological Hx Reported, Depression Smoking Status: Never smoker Past Alcohol Use History: None Reported Past Drug Use History: None Reported - Past Family History Father Family Medical History: Cancer, Coronary Artery Disease (CAD), Myocardial Infarction ([place]), Prostate Disorder Additional Family Medical History / Comment(s): Prostate CA. Father in a MVA at the age of 80yrs. Mother Family Medical History: Cancer, CVA/TIA, Hyperlipidemia Additional Family Medical History / Comment(s): Lung CA-left lobe removed. Medications and Allergies Home Medications Medication Instructions Recorded Confirmed Type Levothyroxine Sodium [Synthroid] 100 mcg PO DAILY 08/29/13 04/06/20 History Atorvastatin Calcium [Lipitor] 10 mg PO HS 10/06/18 04/06/20 History Pregabalin [Lyrica] 100 mg PO TID 02/03/19 04/06/20 History HYDROcodone/APAP 7.5-325MG [[place] 1 tab PO Q6H PRN 03/18/19 04/06/20 History 7.5-325] lisinopriL [Zestril] 10 mg PO DAILY #0 02/20/20 04/06/20 Rx Allergies Allergy/AdvReac Type Severity Reaction Status Date / Time Sulfa (Sulfonamide Allergy Rash/Hives Verified 04/06/20 06:42 Antibiotics) levofloxacin [From Levaquin] AdvReac Itching Verified 04/06/20 06:42 Physical Exam Vitals: Vital Signs Temp Pulse Pulse Resp BP Pulse Ox 04/07/20 14:00 98.4 F 76 18 110/68 96 04/07/20 09:39 63 96/59 04/07/20 08:00 16 04/07/20 07:34 98.2 F 62 16 112/70 97 04/07/20 02:25 97.5 F L 18 91/58 93 L 04/06/20 20:00 98.3 F 80 16 105/53 93 L Intake and Output 04/07/20 04/07/20 04/07/20 06:59 14:59 22:59 Intake Total 250 50 Balance 250 50 Intake: IV 250 50 Vancomycin 2,000 mg In 250 Sodium Chloride 0.9% 500 ml 500 ml @ 167 mls/hr IVPB Q16H [facility] Rx#: [id number] cefTRIAXone 1 gm In 50 Sodium Chloride 0.9% 50 ml @ 100 mls/hr IVPB Q12H [facility] Rx#:[id number] Other: Voiding Method Bedside Commode Bedpan # Voids 1 1 # Bowel Movements 1 1 GENERAL DESCRIPTION: Elderly female lying in bed, no distress. No tachypnea or accessory muscle of respiration use. HEENT: Shows Pallor , no scleral icterus. Oral mucous membrane is dry. NECK: Trachea central, no thyromegaly. LUNGS: Unlabored breathing. Clear to auscultation anteriorly. No wheeze or crackle. HEART: S1, S2, regular rate and rhythm. ABDOMEN: Soft, no tenderness , guarding or rigidity EXTREMITIES: Left foot is currently dressed no drainage on the dressing. SKIN: No rash, no masses palpable. NEUROLOGICAL: The patient is awake, alert, oriented x3, mood and affect normal. Results CBC & Chem 7: 04/08/20 06:03 04/08/20 06:03 Labs: Abnormal Lab Results - Last 24 Hours (Table) 04/07/20 Range/Units 07:47 ESR 37 H (0-30) mm/Hr Microbiology - Last 24 Hours (Table) 04/06/20 00:17 Blood Culture - Preliminary Blood No Growth after 24 hours Assessment and Plan Assessment: 1-patient presenting to the hospital with left third toe pain swelling and redness in this with underlying Diabetes mellitus and previous history of osteomyelitis requiring amputation of the left second and first toe, with abnormal x-ray suspicious for osteomyelitis cultures currently pending (1) Cellulitis of left foot Current Visit: Yes Status: Acute Code(s): L03.116 - CELLULITIS OF LEFT LOWER LIMB SNOMED Code(s): 441668314 (2) Acute osteomyelitis of toe of left foot Current Visit: No Status: Acute Code(s): M86.172 - OTHER ACUTE OSTEOMYELITIS, LEFT ANKLE AND FOOT SNOMED Code(s): 644129512 Plan: 1-vancomycin pharmacy to dose her with a target trough of 15 while watching her kidney function and Vanco trough closely. Along with Rocephin will provide adequate antibiotic coverage empirically 2-local wound care with Aquacel silver dressing 3-we will obtain bone scan on Thursday to make sure no evidence of osteomyelitis and need for IV antibiotic therapy on discharge We will follow on clinical condition and cultures to further adjust medication if needed Thank you for this consultation we will follow the patient along with you Time with Patient: Greater than 30
[2020-04-09] MEDS: HYDROcodone/APAP 7.5-325MG 1 EACH TAB PO PRN ×2 (00:10→08:50)
--- NOTE | 2020-04-09 03:54 | PN ---
PROGRESS NOTE DATE OF SERVICE: 04/08/2020 REASON FOR FOLLOWUP: Left third toe diabetic foot infection with MRSA. INTERVAL HISTORY: The patient is currently afebrile. The patient is breathing comfortably. Patient denies having any chest pain. No shortness of breath or cough. No abdominal pain or pain to the left big toe. PHYSICAL EXAMINATION: Her blood pressure is 147/76 with a pulse of 69, temperature 97.8. She is 94% room air. General description is an elderly female lying in bed in no distress. RESPIRATORY SYSTEM: Unlabored breathing, clear to auscultation anteriorly. HEART: S1, S2. Regular rate and rhythm. ABDOMEN: Soft, no tenderness. Left third toe did have some swelling. No significant redness or drainage. LABS: Wound culture now showing presumptive MRSA. Blood culture negative. DIAGNOSTIC IMPRESSION AND PLAN: Patient with left third toe cellulitis with abnormal x-ray and concern for possible osteomyelitis with culture showing MRSA. Bone scan will be done to make sure no evidence of any osteomyelitis and need for outpatient IV antibiotic therapy. Continue with vancomycin. Discontinue Rocephin. MMODL / IJN: [id number] /
[2020-04-09] MEDS: LEVOTHYROXINE 100 MCG TAB PO SCH (05:31)
[2020-04-09] MEDS: lisinopriL 10 MG TAB PO SCH ×2 (07:26→21:39)
[2020-04-09] MEDS: PREGABALIN 100 MG CAP PO SCH ×3 (07:26→21:39)
[2020-04-09] MEDS: ENOXAPARIN 40 MG/0.4 ML SYRINGE SQ SCH (07:26)
[2020-04-09] MEDS: NAPROXEN 250 MG TAB PO SCH ×2 (07:27→21:39)
[2020-04-09] MEDS: VANCOMYCIN 2,000 MG in SODIUM CHLORIDE 0.9% 500 ML 500 ML IVPB SCH (07:28)
[2020-04-09 09:23] LABS: African American GFR (CKD) 105.4 (60.0-200.0); Non-African American GFR(CKD) 90.9 (60.0-200.0)
[2020-04-09] MEDS ORDERED: RX INFO: IV CONTRAST WAS GIVEN 1 EACH MISC MISCELLANE PRN (13:17)
--- NOTE | 2020-04-09 13:41 | P.CONS ---
History of Present Illness - Reason for Consult Consult date: 04/09/20 wound care - History of Present Illness this is a 64-year-old pleasant female known to the wound care center being seen on with nonhealing ulceration to the left lateral calf and left foot digit ulceration. Patient was seen earlier by Dr. Borges who is awaiting the results of her bone scan. She will be seen again in the wound care center next Thursday by Dr. Borges. Patient currently has absorptive silver at home which we will continue to utilize for dressing changes. Review of Systems Review Of Systems: Constitutional: No fever, no chills, no night sweats. No weight change. No weakness, fatigue or lethargy. No daytime sleepiness. Integumentary:reports wounds, no lesions. No rash or pruritus. No unusual bruising. No change in hair or nails. Past Medical History Past Medical History: Hyperlipidemia, Hypertension, Osteoarthritis (OA), Skin Disorder, Thyroid Disorder Additional Past Medical History / Comment(s): Nonambulatory/pivots to wheelchair normally, low back pain, neuropathy bilateral feet, chronic venous stasis, past L heel/L posterior yost/left second toe wounds, past L 2nd toe osteomyelitis-now amptuated, L great toe amptutated; bilateral leg cellulitis, lymphedema left leg, past R ankle fracture x3, UTIs, urinary stress incontinence, chronic anemia, umbilical hernia, hypothyroid, pyoderma gangrenosum. 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 Source:: Left Foot-VRE, Left Foot and Leg MRSA Past Surgical History: Section, Cholecystectomy, Orthopedic Surgery, Tubal Ligation Additional Past Surgical History / Comment(s): L leg I&D, bilateral knee arthroscopies, L great toe and 2nd toe amp d/t nonhealing wounds, PICCS, midlines, D&Cs Past Anesthesia/Blood Transfusion Reactions: Previous Problems w/ Anesthesia Additional Past Anesthesia/Blood Transfusion Reaction / Comm: Slow to come out of it/muscle weakness Past Psychological History: No Psychological Hx Reported, Depression Smoking Status: Never smoker Past Alcohol Use History: None Reported Past Drug Use History: None Reported - Past Family History Father Family Medical History: Cancer, Coronary Artery Disease (CAD), Myocardial Infarction (CA), Prostate Disorder Additional Family Medical History / Comment(s): Prostate CA. Father in a MVA at the age of 80yrs. Mother Family Medical History: Cancer, CVA/TIA, Hyperlipidemia Additional Family Medical History / Comment(s): Lung CA-left lobe removed. Medications and Allergies Home Medications Medication Instructions Recorded Confirmed Type Levothyroxine Sodium [Synthroid] 100 mcg PO DAILY 08/29/13 04/06/20 History Atorvastatin Calcium [Lipitor] 10 mg PO HS 10/06/18 04/06/20 History Pregabalin [Lyrica] 100 mg PO TID 02/03/19 04/06/20 History HYDROcodone/APAP 7.5-325MG [[place] 1 tab PO Q6H PRN 03/18/19 04/06/20 History 7.5-325] lisinopriL [Zestril] 10 mg PO DAILY #0 02/20/20 04/06/20 Rx Allergies Allergy/AdvReac Type Severity Reaction Status Date / Time Sulfa (Sulfonamide Allergy Rash/Hives Verified 04/06/20 06:42 Antibiotics) levofloxacin [From Levaquin] AdvReac Itching Verified 04/06/20 06:42 Physical Exam Vitals: Vital Signs Temp Pulse Resp BP Pulse Ox 04/09/20 07:25 98.1 F 68 16 156/86 95 04/09/20 05:37 94 L 04/09/20 02:00 98.1 F 62 14 149/78 93 L 04/08/20 20:25 97.8 F 69 16 147/76 94 L 04/08/20 20:00 16 04/08/20 14:00 97.8 F 69 19 136/85 97 Intake and Output 04/08/20 04/09/20 04/09/20 22:59 06:59 14:59 Intake Total 100 Balance 100 Intake: Oral 100 Other: Voiding Method Bedside Commode Bedpan Bedpan # Voids 1 1 # Bowel Movements 1 Physical exam: General Appearance: Alert, cooperative, no distress, appears stated age. Skin: left lateral lower extremity ulceration is a full-thickness ulceration with fatty layer exposure with minimal drainage granulation seen throughout the wound bed with minimal slough. Measuring approximately4 x 2 x 0.1 cm. Left foot digit ulceration is dry and Limited to skin breakdown. all other Skin color, texture, tugor normal, no rashes or lesions. Neurologic: Alert oriented x3 Results CBC & Chem 7: 04/08/20 06:03 04/09/20 06:20 Labs: Microbiology - Last 24 Hours (Table) 04/06/20 00:17 Blood Culture - Preliminary Blood No Growth after 72 hours 04/07/20 12:12 Gram Stain - Preliminary Toe - Left Third Wound Culture - Preliminary Presumptive MRSA Assessment and Plan (1) Nonhealing ulcer of left lower extremity with fat layer exposed Current Visit: Yes Status: Acute Code(s): L97.922 - NON-PRS CHR UL UNSP PRT OF L LOW LEG W FAT LAYER EXPOSED SNOMED Code(s): 19563197 (2) Non-healing ulcer of left foot, limited to breakdown of skin Current Visit: Yes Status: Acute Code(s): L97.521 - NON-PRS CHRONIC ULCER OTH PRT L FOOT LIMITED TO BRKDWN SKIN SNOMED Code(s): 488162185 (3) Venous stasis ulcer of left lower leg with edema of left lower leg Current Visit: No Status: Acute Code(s): I83.029 - VARICOSE VEINS OF LEFT LOWER EXTREMITY W ULCER OF UNSP SITE; I83.892 - VARICOSE VEINS OF L LOW EXTREM WITH OTHER COMPLICATIONS; L97.929 - NON-PRS CHRONIC UL UNSP PRT OF L LOW LEG W UNSP SEVERITY; R60.9 - EDEMA, UNSPECIFIED SNOMED Code(s): 19206033521088134 Plan: apply absorptive silver saline moistened gauze, dry gauze roll gauze and secure with paper tape. Change Thursday. Patient will be seen next Thursday in the wound care center with Dr. Danielson. Thank you for the consultation any questions to contact the wound care center DNP note has been reviewed and discussed with Dr. Rocha and the impression and plan of care has been directed as dictated.
--- NOTE | 2020-04-09 14:27 | NM ---
EXAMINATION TYPE: NM bone 3 phase DATE OF EXAM: 04/09/2020 COMPARISON: NONE HISTORY: left 3rd toe infection Triple phase bone scintigraphy was performed following the injection of 26.4 mCi Tc 99m MDP. Immedia te images and 5.5 hours post injection images acquired. FINDINGS: On all 3 phases of the examination is increased radiotracer accumulation involving the left third toe . Underlying osteomyelitis is not excluded. Partial amputation of the first and second toes. Generati ve uptake mid foot and ankle. IMPRESSION: I cannot excluded osteomyelitis involving the left third toe.
[2020-04-09] MEDS: ACETAMINOPHEN TAB 325 MG TAB PO PRN ×2 (14:38→22:08)
--- NOTE | 2020-04-09 14:39 | CT ---
EXAMINATION TYPE: CT angio chest DATE OF EXAM: 04/09/2020 2:29 PM COMPARISON: CT December 26, 2019 HISTORY: Shortness of breath, history of lymphadenopathy. CT DLP: 1324 mGycm Automated exposure control for dose reduction was used. CONTRAST: CTA scan of the thorax is performed with IV Contrast, patient injected with 100 mL of Isovue 370, pul monary embolism protocol. MIP images are created and reviewed. FINDINGS: LUNGS: No small bilateral pleural effusions with associated compressive atelectasis. Some fluid exten ds into the fissures bilaterally with adjacent compressive atelectasis. No pneumothorax seen bilatera lly. MEDIASTINUM: There is a suboptimal study with near equal contrast in right and left heart systems and overall heterogeneity but no convincing CT evidence for acute pulmonary embolism. No cardiomegaly or pericardial effusion. Prominent but subcentimeter lymph nodes throughout the mediastinum are increas ed in size from most recent CT and can be followed. Satisfactory enhancement of the thoracic aorta wi thout aneurysm or dissection. OTHER: Multilevel spurring in the spine. IMPRESSION: Suboptimal study without CT evidence for acute pulmonary embolism. New Small bilateral pl eural effusions and associated compressive atelectasis, correlate for fluid overload state.
--- NOTE | 2020-04-09 15:08 | P.PN ---
Progress Note - Text 64-year-old female known to me from the wound clinic patient had a right foot big toe second toe impression and in the past stump site is healing good patient came with some redness of the third toe with some drainage culture came MRSA today redness is almost gone no drainage noted patient is is going for bone scan for osteo-continue with IV antibiotic as per infectious disease
[2020-04-09] MEDS: IPRATROPIUM-ALBUTEROL 3 ML NEB INHALATION SCH (20:28)
[2020-04-09] MEDS: ATORVASTATIN 10 MG TAB PO SCH (21:45)
--- NOTE | 2020-04-09 22:47 | P.PN ---
Progress Note - Text Progress Note Date: 04/09/20 Chief Complaint: Painful swollen toe History of presenting complaint: This is a pleasant 63-year-old patient of Dr. Mcfarlane. Chronic stable medical conditions include idiopathic peripheral neuropathy, morbid obesity, primary osteoarthritis, essential hypertension, hypothyroid, , urinary stress incontinence, chronic venous stasis, hyperlipidemia, bilateral lower extremity lymphedema, pyoderma gangrenosum, chronic low back pain.. uses a wheelchair to get about. Patient now presents to the ER with cellulitis and increasing pain in the left foot middle toe and a superficial ulcer to the left cough area and cervical pain to the middle toe. Denies any fever. Significant pain. Going on for about a week. Patient pretty much in the wheelchair all the time. Sometimes will pivot. Started on IV ceftriaxone and vancomycin. Today-redness is gone down says the pain and tenderness in the toe. Patient was slightly short of breath. Feeling better with bronchodilators. No new swelling of the legs. Bone scan was done today. Review of systems: Was done for constitutional, cardiovascular, GI, pulmonary. relevant finding as above Active Medications Acetaminophen (Acetaminophen Tab 325 Mg Tab) 650 mg PO Q6HR PRN PRN Reason: Fever and/ or Pain Last Admin: 04/09/20 22:08 Dose: 650 mg Documented by: Hydrocodone Bitart/Acetaminophen (Hydrocodone/Apap 7.5-325mg 1 Each Tab) 1 each PO Q6H PRN PRN Reason: Pain Last Admin: 04/09/20 08:50 Dose: 1 each Documented by: Albuterol/Ipratropium (Ipratropium-Albuterol 3 Ml Neb) 3 ml INHALATION RT-TID VENKAT Last Admin: 04/09/20 20:28 Dose: 3 ml Documented by: Atorvastatin Calcium (Atorvastatin 10 Mg Tab) 10 mg PO HS VENKAT Last Admin: 04/09/20 21:45 Dose: 10 mg Documented by: Diphenhydramine HCl (Diphenhydramine 50 Mg/Ml 1 Ml Vial) 25 mg IVP Q6HR PRN PRN Reason: Allergy Symptoms Last Admin: 04/08/20 00:03 Dose: 25 mg Documented by: Enoxaparin Sodium (Enoxaparin 40 Mg/0.4 Ml Syringe) 40 mg SQ DAILY [facility] Last Admin: 04/09/20 07:26 Dose: 40 mg Documented by: Vancomycin HCl 2,000 mg/ (Sodium Chloride) 500 mls @ 167 mls/hr IVPB Q24H [facility] Levothyroxine Sodium (Levothyroxine 100 Mcg Tab) 100 mcg PO DAILY@0630 [facility] Last Admin: 04/09/20 05:31 Dose: 100 mcg Documented by: Lisinopril (Lisinopril 10 Mg Tab) 10 mg PO BID [facility] Last Admin: 04/09/20 21:39 Dose: 10 mg Documented by: Miscellaneous Information (Rx Info: Iv Contrast Was Given 1 Each Misc) 1 each MISCELLANE DAILY PRN PRN Reason: Per Protocol Stop: 04/11/20 13:18 Naloxone HCl (Naloxone 0.4 Mg/Ml 1 Ml Vial) 0.2 mg IV Q2M PRN PRN Reason: Opioid Reversal Naproxen (Naproxen 250 Mg Tab) 250 mg PO BID [facility] Last Admin: 04/09/20 21:39 Dose: 250 mg Documented by: Pregabalin (Pregabalin 100 Mg Cap) 100 mg PO TID [facility] Last Admin: 04/09/20 21:39 Dose: 100 mg Documented by: Physical examination: VITAL SIGNS: 98.4, 72, 18, 154.78, 94% on room air GENERAL: , laying in bed, comfortable EYES: Pupils equal. Conjunctiva normal. NECK: JVD unable to assess; masses not palpable. HEART: Distal heart sounds; some edema. LUNGS: Respiratory rate normal; distant breath sounds. ABDOMEN: Soft, nontender, liver spleen not palpable, no masses palpable. Umbilical hernia PSYCH: Alert and oriented x3; mood and affect normal. LYMPHATICS: lower extremity lymphedema MUSCULAR skeletal: lower extremity with venous is insufficiency and lymphedema, chronic skin changes Left lower extremity: absent first and second toe, middle toe -decreased inflammation signs. Superficial discoloration of skin in the calf area INVESTIGATIONS, reviewed in the clinical context: Bone scan-cannot rule out osteoarthritis Chest CTA-negative for PE Left third toe culture-presumptive MRSA April 08: White count 3.8 hemoglobin 9.8 platelets 114 April 07: Creatinine 0.8 ESR 37 White count 4.9 hemoglobin 10.6 platelets 137 potassium 3.9 creatinine 0.74 Left foot n-biv-jjosxlrgfmll lucency in the terminal tuft of the third distal phalanx. Soft tissue swelling Assessment: -left third toe acutely inflamed, with surrounding areas of redness tenderness. /Dactylitis acute. Clinically better. Cannot rule out ostium myelitis per bone scan. Wound culture growing MRSA -chronic low back pain, likely from spinal stenosis/herniated disc with radiculopathy and down and affect.-likely from L1-L2 and L3-L4 nerve distribution. -History of Pyoderma gangrenosum -Hyperlipidemia -Essential hypertension -Primary osteoarthritis -Hypothyroid -Chronic medical debility uses wheelchair -Idiopathic peripheral neuropathy -Chronic venous stasis -Bilateral lower extremity lymphedema -Chronic urinary stress incontinence -Chronic umbilical hernia -Left leg posteriorly, decubitus ulcer, POA -Morbid obesity BMI 46.4 -Suspect underlying restrictive lung disease from obesity hypoventilation syndrome. Plan: Patient is put on bronchodilators. 2. She feels better. Bone scan results noted. Patient on vancomycin. Follow with ID and vascular. Discussed with patient.
[2020-04-10] MEDS: HYDROcodone/APAP 7.5-325MG 1 EACH TAB PO PRN ×2 (00:30→13:22)
--- NOTE | 2020-04-10 00:59 | PN ---
PROGRESS NOTE DATE OF SERVICE: 04/09/2020 REASON FOR FOLLOWUP: Left third toe MRSA infection, question osteomyelitis. INTERVAL HISTORY: The patient is currently afebrile. Patient is breathing comfortably. Patient denies having any chest pain. She did have some shortness of breath. Minimal cough. No abdominal pain. Denies pain to the left foot area. PHYSICAL EXAMINATION: Blood pressure 154/78, pulse of 72, temperature is 98.4. She is 94% on room air. General description is a middle-aged female lying in bed in no distress. RESPIRATORY SYSTEM: Unlabored breathing, decreased intensity of breath sounds. No wheeze. HEART: S1, S2. Regular rate and rhythm. ABDOMEN: Soft, no tenderness. Left foot is currently dressed up. No obvious drainage on the dressing. LABS: Hemoglobin 9.8, white count 3.8. Creatinine 0.7. Vancomycin trough was 20.4. Bone scan with osteomyelitis not ruled out. DIAGNOSTIC IMPRESSION AND PLAN: Patient with left third toe diabetic foot infection. Culture with MRSA and concern for possible osteomyelitis. She is currently covered with vancomycin, dose to to keep trough around 15. She will need a PICC line for IV antibiotic versus amputation. Will discuss with Vascular Surgery. MMODL / IJN: [id number] /
[2020-04-10] MEDS: LEVOTHYROXINE 100 MCG TAB PO SCH (05:54)
[2020-04-10] MEDS: IPRATROPIUM-ALBUTEROL 3 ML NEB INHALATION SCH ×3 (08:22→19:59)
[2020-04-10] MEDS: NAPROXEN 250 MG TAB PO SCH ×2 (08:24→21:42)
[2020-04-10] MEDS: PREGABALIN 100 MG CAP PO SCH ×3 (08:24→21:43)
[2020-04-10] MEDS: lisinopriL 10 MG TAB PO SCH ×2 (08:24→21:43)
[2020-04-10] MEDS: VANCOMYCIN 2,000 MG in SODIUM CHLORIDE 0.9% 500 ML 500 ML IVPB SCH (08:25)
[2020-04-10] MEDS: ENOXAPARIN 40 MG/0.4 ML SYRINGE SQ SCH (08:25)
[2020-04-10] MEDS: METOPROLOL TARTRATE 25 MG TAB PO SCH ×2 (10:02→21:43)
[2020-04-10] MEDS: CHLORTHALIDONE 25 MG TAB PO SCH (10:03)
[2020-04-10] MEDS: ACETAMINOPHEN TAB 325 MG TAB PO PRN (10:06)
[2020-04-10 16:31] LABS: African American GFR (CKD) 105.4 (60.0-200.0); Non-African American GFR(CKD) 90.9 (60.0-200.0)
--- NOTE | 2020-04-10 21:15 | P.PN ---
Progress Note - Text Progress Note Date: 04/10/20 Chief Complaint: Painful swollen toe History of presenting complaint: This is a pleasant 63-year-old patient of Dr. Mcfarlane. Chronic stable medical conditions include idiopathic peripheral neuropathy, morbid obesity, primary osteoarthritis, essential hypertension, hypothyroid, , urinary stress incontinence, chronic venous stasis, hyperlipidemia, bilateral lower extremity lymphedema, pyoderma gangrenosum, chronic low back pain.. uses a wheelchair to get about. Patient now presents to the ER with cellulitis and increasing pain in the left foot middle toe and a superficial ulcer to the left cough area and cervical pain to the middle toe. Denies any fever. Significant pain. Going on for about a week. Patient pretty much in the wheelchair all the time. Sometimes will pivot. Started on IV ceftriaxone and vancomycin. Bone scan-possible osteomyelitis-wound culture growing MRSA Today-laying in bed. Comfortable. Eating fairly. No pain improved. Oral dry less angry looking. Review of systems: Was done for constitutional, cardiovascular, GI, pulmonary. relevant finding as above Active Medications Acetaminophen (Acetaminophen Tab 325 Mg Tab) 650 mg PO Q6HR PRN PRN Reason: Fever and/ or Pain Last Admin: 04/10/20 10:06 Dose: 650 mg Documented by: Hydrocodone Bitart/Acetaminophen (Hydrocodone/Apap 7.5-325mg 1 Each Tab) 1 each PO Q6H PRN PRN Reason: Pain Last Admin: 04/10/20 13:22 Dose: 1 each Documented by: Albuterol/Ipratropium (Ipratropium-Albuterol 3 Ml Neb) 3 ml INHALATION RT-TID [facility] Last Admin: 04/10/20 19:59 Dose: 3 ml Documented by: Atorvastatin Calcium (Atorvastatin 10 Mg Tab) 10 mg PO HS [facility] Last Admin: 04/09/20 21:45 Dose: 10 mg Documented by: Chlorthalidone (Chlorthalidone 25 Mg Tab) 25 mg PO DAILY [facility] Last Admin: 04/10/20 10:03 Dose: 25 mg Documented by: Diphenhydramine HCl (Diphenhydramine 50 Mg/Ml 1 Ml Vial) 25 mg IVP Q6HR PRN PRN Reason: Allergy Symptoms Last Admin: 04/08/20 00:03 Dose: 25 mg Documented by: Enoxaparin Sodium (Enoxaparin 40 Mg/0.4 Ml Syringe) 40 mg SQ DAILY [facility] Last Admin: 04/10/20 08:25 Dose: 40 mg Documented by: Vancomycin HCl 2,000 mg/ (Sodium Chloride) 500 mls @ 167 mls/hr IVPB Q24H [facility] Last Admin: 04/10/20 08:25 Dose: 167 mls/hr Documented by: Levothyroxine Sodium (Levothyroxine 100 Mcg Tab) 100 mcg PO DAILY@0630 [facility] Last Admin: 04/10/20 05:54 Dose: 100 mcg Documented by: Lisinopril (Lisinopril 10 Mg Tab) 10 mg PO BID [facility] Last Admin: 04/10/20 08:24 Dose: 10 mg Documented by: Melatonin (Melatonin 3 Mg Tablet) 3 mg PO [facility] Metoprolol Tartrate (Metoprolol Tartrate 25 Mg Tab) 25 mg PO BID [facility] Last Admin: 04/10/20 10:02 Dose: 25 mg Documented by: Miscellaneous Information (Rx Info: Iv Contrast Was Given 1 Each Misc) 1 each MISCELLANE DAILY PRN PRN Reason: Per Protocol Stop: 04/11/20 13:18 Naloxone HCl (Naloxone 0.4 Mg/Ml 1 Ml Vial) 0.2 mg IV Q2M PRN PRN Reason: Opioid Reversal Naproxen (Naproxen 250 Mg Tab) 250 mg PO BID [facility] Last Admin: 04/10/20 08:24 Dose: 250 mg Documented by: Pregabalin (Pregabalin 100 Mg Cap) 100 mg PO TID [facility] Last Admin: 04/10/20 16:54 Dose: 100 mg Documented by: Physical examination: VITAL SIGNS: 98.4, 63, 16, 159 but 90, 91% room air GENERAL: , Reclining in bed, comfortable EYES: Pupils equal. Conjunctiva normal. NECK: JVD unable to assess; masses not palpable. HEART: Distal heart sounds; some edema. LUNGS: Respiratory rate normal; distant breath sounds. ABDOMEN: Soft, nontender, liver spleen not palpable, no masses palpable. Umbilical hernia PSYCH: Alert and oriented x3; mood and affect normal. LYMPHATICS: lower extremity lymphedema MUSCULAR skeletal: lower extremity with venous is insufficiency and lymphedema, chronic skin changes Left lower extremity: absent first and second toe, middle toe -decreased inflammation signs. Superficial discoloration of skin in the calf area INVESTIGATIONS, reviewed in the clinical context: Bone scan-cannot rule out osteoarthritis Chest CTA-negative for PE Left third toe culture-presumptive MRSA April 08: White count 3.8 hemoglobin 9.8 platelets 114 April 07: Creatinine 0.8 ESR 37 White count 4.9 hemoglobin 10.6 platelets 137 potassium 3.9 creatinine 0.74 Left foot j-ewd-orwrxrahtezb lucency in the terminal tuft of the third distal phalanx. Soft tissue swelling Assessment: -left third toe acutely inflamed, with surrounding areas of redness tenderness. /Dactylitis acute. Clinically better. Possible osteomyelitis per bone scan. Wound culture growing MRSA -chronic low back pain, likely from spinal stenosis/herniated disc with radiculopathy and down and affect.-likely from L1-L2 and L3-L4 nerve distribution. -History of Pyoderma gangrenosum -Hyperlipidemia -Essential hypertension -Primary osteoarthritis -Hypothyroid -Chronic medical debility uses wheelchair -Idiopathic peripheral neuropathy -Chronic venous stasis -Bilateral lower extremity lymphedema -Chronic urinary stress incontinence -Chronic umbilical hernia -Left leg posteriorly, decubitus ulcer, POA -Morbid obesity BMI 46.4 -Suspect underlying restrictive lung disease from obesity hypoventilation syndrome. Plan: Discussed with Dr. Morris from vascular surgery. Not for any surgical intervention. He'll follow the patient in the wound care center. Antibiotics per Sayed. Other medications to continue. PICC line. Hopefully DC tomorrow.
[2020-04-10] MEDS: ATORVASTATIN 10 MG TAB PO SCH (21:42)
[2020-04-10] MEDS: MELATONIN 3 MG TABLET PO SCH (21:45)
--- NOTE | 2020-04-10 22:57 | PN ---
PROGRESS NOTE DATE OF SERVICE: 04/10/2020 REASON FOR FOLLOWUP: Left third toe MRSA osteomyelitis. INTERVAL HISTORY: The patient is currently afebrile. The patient is breathing comfortably. The patient denies having any chest pain or shortness of breath or cough. No nausea, no vomiting, no abdominal pain or any worsening pain to the left third toe area. PHYSICAL EXAMINATION: Blood pressure 168/68 with a pulse of 62, temperature 97.8. She is 93% on room air. General description is an elderly female lying in bed in no distress. RESPIRATORY SYSTEM: Unlabored breathing. Clear to auscultation anteriorly. HEART: S1, S2. Regular rate and rhythm. ABDOMEN: Soft. No tenderness. Left foot is currently dressed up. LABS: Creatinine 0.7. DIAGNOSTIC IMPRESSION AND PLAN: Patient with a left third toe methicillin-resistant Staphylococcus aeruginosa infection with concern for underlying osteomyelitis. The patient is currently covered with vancomycin. She will continue vancomycin, Pharmacy to dose, for a total of 6 weeks. PICC line to be placed. Once antibiotic arrangements, could go home from ID standpoint. MMODL / IJN: [id number] /
[2020-04-11] MEDS: ACETAMINOPHEN TAB 325 MG TAB PO PRN ×3 (00:36→22:02)
[2020-04-11] MEDS: LEVOTHYROXINE 100 MCG TAB PO SCH (05:37)
[2020-04-11] MEDS: HYDROcodone/APAP 7.5-325MG 1 EACH TAB PO PRN (05:40)
[2020-04-11] MEDS: ENOXAPARIN 40 MG/0.4 ML SYRINGE SQ SCH (06:58)
[2020-04-11] MEDS: CHLORTHALIDONE 25 MG TAB PO SCH (08:29)
[2020-04-11] MEDS: VANCOMYCIN 2,000 MG in SODIUM CHLORIDE 0.9% 500 ML 500 ML IVPB SCH (08:29)
[2020-04-11] MEDS: PREGABALIN 100 MG CAP PO SCH ×3 (08:29→22:05)
[2020-04-11] MEDS: METOPROLOL TARTRATE 25 MG TAB PO SCH ×3 (08:29→22:05)
[2020-04-11] MEDS: lisinopriL 10 MG TAB PO SCH ×2 (08:29→22:04)
[2020-04-11] MEDS: NAPROXEN 250 MG TAB PO SCH ×2 (08:30→22:04)
[2020-04-11] MEDS: IPRATROPIUM-ALBUTEROL 3 ML NEB INHALATION SCH ×3 (08:57→20:02)
[2020-04-11] MEDS ORDERED: LIDOCAINE 1% INJ 10MG/ML (20 ML MDV) ONE (09:32)
[2020-04-11] MEDS ORDERED: LIDOCAINE 1% INJ 10MG/ML (20 ML MDV) SQ ONE (09:45)
[2020-04-11 09:52] LABS: African American GFR (CKD) 105.4 (60.0-200.0); Non-African American GFR(CKD) 90.9 (60.0-200.0)
--- NOTE | 2020-04-11 10:18 | IR ---
PICC LINE PLACEMENT: HISTORY: Infection requiring long-term antibiotic therapy PROCEDURE: Ultrasound and fluoroscopic guidance of PICC line placement. COMPLICATIONS: None ANESTHESIA: 1. 1% Lidocaine locally. FINDINGS/TECHNIQUE: The procedure was explained to the patient. The risks, complications, benefits and alternatives were discussed and any questions were answered. Informed consent was obtained. The patient was placed supine on the fluoroscopic table and prepped and draped in the usual sterile fash ion. Utilizing a 21 gauge needle and sonographic and fluoroscopic guidance, access in the left basi lic vein was achieved and there is placement of a 0.018 guidewire. The vein is patent. A 4-F sheath was placed over the guidewire. The guidewire and dilator were removed and a 4-F. PICC line was plac ed through the sheath with the tip at the level of the SVC. The sheath was removed, the catheter was flushed and sutured into position. The patient was stable throughout the procedure and remained sta ble upon discharge from the Department of Radiology. The vein puncture was patent under ultrasound. A espinoza scale image was obtained to document patency of the vein punctured. All elements of the maximal barrier technique were utilized. FLUOROSCOPY TIME: 0.2 minutes and 1 images submitted IMPRESSION: Successful PICC line placement under ultrasound and fluoroscopic guidance.
[2020-04-11] MEDS ORDERED: diazePAM 2 MG TAB PO STA (12:14)
--- NOTE | 2020-04-11 16:00 | PN ---
PROGRESS NOTE DATE OF SERVICE: 04/11/2020 REASON FOR FOLLOWUP: Left third toe osteomyelitis, MRSA. INTERVAL HISTORY: The patient is currently afebrile. The patient is breathing comfortably. Patient denies having any chest pain. No shortness of breath or cough. No abdominal pain. Some pain to the . PHYSICAL EXAMINATION: Blood pressure , pulse of 66, temperature is 97.8. She is 96% on room air. General description is an elderly female, lying in bed in no distress. RESPIRATORY SYSTEM: Unlabored breathing, clear to auscultation anteriorly. HEART: S1, S2. Regular rate and rhythm.. ABDOMEN: Soft, no tenderness. Left foot is currently dressed up. LABS: Hemoglobin 9.1, white count 3.8. DIAGNOSTIC IMPRESSION AND PLAN: Patient with left big toe acute osteomyelitis with MRSA. Patient is covered with vancomycin current PICC line. Continue dose of therapy with weekly monitor complete CBC with close outpatient followup. MMODL / IJN: [id number] /
--- NOTE | 2020-04-11 21:47 | P.PN ---
Progress Note - Text Progress Note Date: 04/11/20 Chief Complaint: Painful swollen toe History of presenting complaint: This is a pleasant 63-year-old patient of Dr. Mcfarlane. Chronic stable medical conditions include idiopathic peripheral neuropathy, morbid obesity, primary osteoarthritis, essential hypertension, hypothyroid, , urinary stress incontinence, chronic venous stasis, hyperlipidemia, bilateral lower extremity lymphedema, pyoderma gangrenosum, chronic low back pain.. uses a wheelchair to get about. Patient now presents to the ER with cellulitis and increasing pain in the left foot middle toe and a superficial ulcer to the left cough area and cervical pain to the middle toe. Denies any fever. Significant pain. Going on for about a week. Patient pretty much in the wheelchair all the time. Sometimes will pivot. Started on IV ceftriaxone and vancomycin. Bone scan-possible osteomyelitis-wound culture growing MRSA. Ceftriaxone discontinued. No surgical intervention. Today-having some headache. Blood pressure running on the higher side. Hasn't been sleeping well. Eating fine. Toe is doing better. PICC line being placed today Review of systems: Was done for constitutional, cardiovascular, GI, pulmonary. relevant finding as above Active Medications Acetaminophen (Acetaminophen Tab 325 Mg Tab) 650 mg PO Q6HR PRN PRN Reason: Fever and/ or Pain Last Admin: 04/11/20 15:56 Dose: 650 mg Documented by: Hydrocodone Bitart/Acetaminophen (Hydrocodone/Apap 7.5-325mg 1 Each Tab) 1 each PO Q6H PRN PRN Reason: Pain Last Admin: 04/11/20 05:40 Dose: 1 each Documented by: Albuterol/Ipratropium (Ipratropium-Albuterol 3 Ml Neb) 3 ml INHALATION RT-TID [facility] Last Admin: 04/11/20 20:02 Dose: 3 ml Documented by: Atorvastatin Calcium (Atorvastatin 10 Mg Tab) 10 mg PO HS [facility]AT Last Admin: 04/10/20 21:42 Dose: 10 mg Documented by: Chlorthalidone (Chlorthalidone 25 Mg Tab) 25 mg PO DAILY [facility] Last Admin: 04/11/20 08:29 Dose: 25 mg Documented by: Diphenhydramine HCl (Diphenhydramine 50 Mg/Ml 1 Ml Vial) 25 mg IVP Q6HR PRN PRN Reason: Allergy Symptoms Last Admin: 04/08/20 00:03 Dose: 25 mg Documented by: Enoxaparin Sodium (Enoxaparin 40 Mg/0.4 Ml Syringe) 40 mg SQ DAILY [facility] Last Admin: 04/11/20 06:58 Dose: Not Given Documented by: Vancomycin HCl 2,000 mg/ (Sodium Chloride) 500 mls @ 167 mls/hr IVPB Q24H [facility] Last Admin: 04/11/20 08:29 Dose: 167 mls/hr Documented by: Levothyroxine Sodium (Levothyroxine 100 Mcg Tab) 100 mcg PO DAILY@0630 [facility] Last Admin: 04/11/20 05:37 Dose: 100 mcg Documented by: Lisinopril (Lisinopril 10 Mg Tab) 10 mg PO BID [facility] Last Admin: 04/11/20 08:29 Dose: 10 mg Documented by: Melatonin (Melatonin 3 Mg Tablet) 3 mg PO HS [facility] Last Admin: 04/10/20 21:45 Dose: 3 mg Documented by: Metoprolol Tartrate (Metoprolol Tartrate 25 Mg Tab) 25 mg PO TID [facility] Last Admin: 04/11/20 15:53 Dose: 25 mg Documented by: Naloxone HCl (Naloxone 0.4 Mg/Ml 1 Ml Vial) 0.2 mg IV Q2M PRN PRN Reason: Opioid Reversal Naproxen (Naproxen 250 Mg Tab) 250 mg PO BID [facility] Last Admin: 04/11/20 08:30 Dose: Not Given Documented by: Pregabalin (Pregabalin 100 Mg Cap) 100 mg PO TID [facility] Last Admin: 04/11/20 15:53 Dose: 100 mg Documented by: Physical examination: VITAL SIGNS: 97.8, 66, 17, 1 25 x 34, 96% room air GENERAL: , Reclining in bed, comfortable EYES: Pupils equal. Conjunctiva normal. NECK: JVD unable to assess; masses not palpable. HEART: Distal heart sounds; some edema. LUNGS: Respiratory rate normal; distant breath sounds. ABDOMEN: Soft, nontender, liver spleen not palpable, no masses palpable. Umbilical hernia PSYCH: Alert and oriented x3; mood and affect normal. LYMPHATICS: lower extremity lymphedema MUSCULAR skeletal: lower extremity with venous is insufficiency and lymphedema, chronic skin changes Left lower extremity: absent first and second toe, middle toe -decreased inflammation signs. Superficial discoloration of skin in the calf area INVESTIGATIONS, reviewed in the clinical context: Bone scan-cannot rule out osteoarthritis Chest CTA-negative for PE Left third toe culture-presumptive MRSA April 08: White count 3.8 hemoglobin 9.8 platelets 114 April 07: Creatinine 0.8 ESR 37 White count 4.9 hemoglobin 10.6 platelets 137 potassium 3.9 creatinine 0.74 Left foot [id number] lucency in the terminal tuft of the third distal phalanx. Soft tissue swelling Assessment: -left third toe acutely inflamed, with surrounding areas of redness tenderness. /Dactylitis acute. Clinically better. Possible osteomyelitis per bone scan. Wound culture growing MRSA -chronic low back pain, likely from spinal stenosis/herniated disc with radiculopathy and down and affect.-likely from L1-L2 and L3-L4 nerve distribution. -History of Pyoderma gangrenosum -Hyperlipidemia -Essential hypertension -Primary osteoarthritis -Hypothyroid -Chronic medical debility uses wheelchair -Idiopathic peripheral neuropathy -Chronic venous stasis -Bilateral lower extremity lymphedema -Chronic urinary stress incontinence -Chronic umbilical hernia -Left leg posteriorly, decubitus ulcer, POA -Morbid obesity BMI 46.4 -Suspect underlying restrictive lung disease from obesity hypoventilation syndrome. -Tension headache from lack of sleep. We'll give a small dose of Valium. Blood pressure initially elevated because of the same. Plan: Increase Lopressor 25 mg 3 times a day. Give one-time dose of Valium. Told the patient to get some sleep. Hold discharge for today. Home tomorrow.
[2020-04-11] MEDS: MELATONIN 3 MG TABLET PO SCH (22:05)
[2020-04-11] MEDS: ATORVASTATIN 10 MG TAB PO SCH (22:05)
[2020-04-12] MEDS: ACETAMINOPHEN TAB 325 MG TAB PO PRN (04:15)
[2020-04-12] MEDS: LEVOTHYROXINE 100 MCG TAB PO SCH (05:28)
[2020-04-12] MEDS: IPRATROPIUM-ALBUTEROL 3 ML NEB INHALATION SCH ×3 (08:43→21:16)
[2020-04-12] MEDS: PREGABALIN 100 MG CAP PO SCH ×3 (09:03→21:29)
[2020-04-12] MEDS: lisinopriL 10 MG TAB PO SCH ×2 (09:03→21:30)
[2020-04-12] MEDS: METOPROLOL TARTRATE 25 MG TAB PO SCH ×3 (09:03→21:29)
[2020-04-12] MEDS: NAPROXEN 250 MG TAB PO SCH ×2 (09:04→21:29)
[2020-04-12] MEDS: CHLORTHALIDONE 25 MG TAB PO SCH (09:04)
[2020-04-12] MEDS: VANCOMYCIN 2,000 MG in SODIUM CHLORIDE 0.9% 500 ML 500 ML IVPB SCH (09:04)
[2020-04-12] MEDS: ENOXAPARIN 40 MG/0.4 ML SYRINGE SQ SCH (09:04)
[2020-04-12 12:07] LABS: African American GFR (CKD) 89.7 (60.0-200.0); Non-African American GFR(CKD) 77.4 (60.0-200.0)
--- NOTE | 2020-04-12 15:41 | CDI ---
Documentation Clarification Form Date: 04/12/2020 03:30:11 PM From: Anamaria Scanlon CCS, CCDS Admit Date: 04/06/2020 12:12:00 AM Patient Name: Darling Spicer Visit Number: [id number] Discharge Date: ATTENTION: The Clinical Documentation Specialists (CDI) and [facility] Coding Staff appreciate your assistance in clarifying documentation. Please respond to the clarification below the line at the bottom and electronically sign. The CDI & [facility] Coding staff will review the response and follow-up if needed. Please note: Queries are made part of the Legal Health Record. If you have any questions, please contact the author of this message via ITS. Dr. Tal Magallanes: Chronic anemia is documented in the 04/06 ED Note, the 04/07 History & Physical and the 04/07 Infectious Disease Consult without further specificity. History/Risk Factors: DM II, Idiopathic peripheral neuropathy, Bilateral Lower Extremity Cellulitis, Chronic low back pain likely from spinal stenosis, Herniated Disc & Radiculopathy: Lumbar, Hyperlipidemia, Hypertension, Primary Osteoarthritis, Hypothyroid, Chronic medical debility, uses wheelchair, Chronic venous stasis, Bilateral lower extremity lymphedema, Chronic urinary stress incontinence, Chronic umbilical hernia, Morbid Obesity w/BMI 46.4. 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 Clinical indicators: Presented to the ED 04/06 with a painful, swollen left 3rd toe. Hemoglobin 04/06: 10.6*, 04/08 9.8* Hematocrit 04/06: 31.2*, 04/08: 30.1* Home Rx: Zestril, Lyrica, Synthroid, Speculator, Lipitor Treatment: IV Rocephin, IV Morphine, IV fluid 1,000 mls @ 130 mls/hr q7H, IV Vancomycin In order to capture the severity of condition, please clarify the type of anemia and etiology if known:. Chronic blood loss anemia Nutritional anemia Unable to determine Other, please specify (Last Form Revision: June 2019) Anemia of chronic disease. Exact cause unknown MTDD
[2020-04-12] MEDS ORDERED: LORazepam 2 MG/ML INJ IV PRN (16:34)
--- NOTE | 2020-04-12 20:59 | P.PN ---
Progress Note - Text Progress Note Date: 04/12/20 Chief Complaint: Painful swollen toe History of presenting complaint: This is a pleasant 63-year-old patient of Dr. Mcfarlane. Chronic stable medical conditions include idiopathic peripheral neuropathy, morbid obesity, primary osteoarthritis, essential hypertension, hypothyroid, , urinary stress incontinence, chronic venous stasis, hyperlipidemia, bilateral lower extremity lymphedema, pyoderma gangrenosum, chronic low back pain.. uses a wheelchair to get about. Patient now presents to the ER with cellulitis and increasing pain in the left foot middle toe and a superficial ulcer to the left cough area and cervical pain to the middle toe. Denies any fever. Significant pain. Going on for about a week. Patient pretty much in the wheelchair all the time. Sometimes will pivot. Started on IV ceftriaxone and vancomycin. Bone scan-possible osteomyelitis-wound culture growing MRSA. Ceftriaxone discontinued. No surgical intervention. Today-having intermittent headache. Blood pressure well controlled. No nausea vomiting. Able to eat some. No fever no chills. Review of systems: Was done for constitutional, cardiovascular, GI, pulmonary. relevant finding as above Active Medications Acetaminophen (Acetaminophen Tab 325 Mg Tab) 650 mg PO Q6HR PRN PRN Reason: Fever and/ or Pain Last Admin: 04/12/20 04:15 Dose: 650 mg Documented by: Hydrocodone Bitart/Acetaminophen (Hydrocodone/Apap 7.5-325mg 1 Each Tab) 1 each PO Q6H PRN PRN Reason: Pain Last Admin: 04/11/20 05:40 Dose: 1 each Documented by: Albuterol/Ipratropium (Ipratropium-Albuterol 3 Ml Neb) 3 ml INHALATION RT-TID [facility] Last Admin: 04/12/20 11:44 Dose: 3 ml Documented by: Atorvastatin Calcium (Atorvastatin 10 Mg Tab) 10 mg PO HS [facility] Last Admin: 04/11/20 22:05 Dose: 10 mg Documented by: Chlorthalidone (Chlorthalidone 25 Mg Tab) 25 mg PO DAILY [facility] Last Admin: 04/12/20 09:04 Dose: Not Given Documented by: Diphenhydramine HCl (Diphenhydramine 50 Mg/Ml 1 Ml Vial) 25 mg IVP Q6HR PRN PRN Reason: Allergy Symptoms Last Admin: 04/08/20 00:03 Dose: 25 mg Documented by: Enoxaparin Sodium (Enoxaparin 40 Mg/0.4 Ml Syringe) 40 mg SQ DAILY [facility] Last Admin: 04/12/20 09:04 Dose: 40 mg Documented by: Vancomycin HCl 2,000 mg/ (Sodium Chloride) 500 mls @ 167 mls/hr IVPB Q24H [facility] Last Admin: 04/12/20 09:04 Dose: 167 mls/hr Documented by: Levothyroxine Sodium (Levothyroxine 100 Mcg Tab) 100 mcg PO DAILY@0630 [facility] Last Admin: 04/12/20 05:28 Dose: 100 mcg Documented by: Lisinopril (Lisinopril 10 Mg Tab) 10 mg PO BID [facility] Last Admin: 04/12/20 09:03 Dose: 10 mg Documented by: Lorazepam (Lorazepam 2 Mg/Ml Inj) 1 mg IV ONCE PRN PRN Reason: Anxiety Melatonin (Melatonin 3 Mg Tablet) 3 mg PO HS [facility] Last Admin: 04/11/20 22:05 Dose: 3 mg Documented by: Metoprolol Tartrate (Metoprolol Tartrate 25 Mg Tab) 25 mg PO TID [facility] Last Admin: 04/12/20 16:28 Dose: 25 mg Documented by: Miscellaneous Information (Vancomycin Trough Due 1 Each Misc) 0 each MISCELLANE DIRECTED ONE Stop: 04/13/20 07:01 Naloxone HCl (Naloxone 0.4 Mg/Ml 1 Ml Vial) 0.2 mg IV Q2M PRN PRN Reason: Opioid Reversal Naproxen (Naproxen 250 Mg Tab) 250 mg PO BID [facility] Last Admin: 04/12/20 09:04 Dose: 250 mg Documented by: Pregabalin (Pregabalin 100 Mg Cap) 100 mg PO TID [facility] Last Admin: 04/12/20 16:28 Dose: 100 mg Documented by: Physical examination: VITAL SIGNS: 97.7, 64, 18, 149 with 75, 95% room air GENERAL: , Reclining in bed, comfortable EYES: Pupils equal. Conjunctiva normal. NECK: JVD unable to assess; masses not palpable. HEART: Distal heart sounds; some edema. LUNGS: Respiratory rate normal; distant breath sounds. ABDOMEN: Soft, nontender, liver spleen not palpable, no masses palpable. Umbilical hernia PSYCH: Alert and oriented x3; mood and affect normal. LYMPHATICS: lower extremity lymphedema MUSCULAR skeletal: lower extremity with venous is insufficiency and lymphedema, chronic skin changes Left lower extremity: absent first and second toe, middle toe -decreased inflammation signs. Superficial discoloration of skin in the calf area INVESTIGATIONS, reviewed in the clinical context: Bone scan-cannot rule out osteoarthritis Chest CTA-negative for PE Left third toe culture-presumptive MRSA April 08: White count 3.8 hemoglobin 9.8 platelets 114 April 07: Creatinine 0.8 ESR 37 White count 4.9 hemoglobin 10.6 platelets 137 potassium 3.9 creatinine 0.74 Left foot d-pih-qvrtptfelepj lucency in the terminal tuft of the third distal phalanx. Soft tissue swelling Assessment: -left third toe acutely inflamed, with surrounding areas of redness tenderness. /Dactylitis acute. And acute osteomyelitis per bone scan. Wound culture growing MRSA -chronic low back pain, likely from spinal stenosis/herniated disc with radiculopathy and down and affect.-likely from L1-L2 and L3-L4 nerve distribution. -History of Pyoderma gangrenosum -Hyperlipidemia -Essential hypertension -Primary osteoarthritis -Hypothyroid -Chronic medical debility uses wheelchair -Idiopathic peripheral neuropathy -Chronic venous stasis -Bilateral lower extremity lymphedema -Chronic urinary stress incontinence -Chronic umbilical hernia -Left leg posteriorly, decubitus ulcer, POA -Morbid obesity BMI 46.4 -Suspect underlying restrictive lung disease from obesity hypoventilation syndrome. -Possibly Tension headache from lack of sleep. Blood pressure is well controlled. We'll get MRI of the brain and have a neurology consultation Plan: Discussed with patient. We will order MRI of the brain. Consult neurology. Other medications to continue.
[2020-04-12] MEDS: ATORVASTATIN 10 MG TAB PO SCH (21:29)
[2020-04-12] MEDS: MELATONIN 3 MG TABLET PO SCH (21:30)
--- NOTE | 2020-04-13 00:15 | PN ---
PROGRESS NOTE DATE OF SERVICE: 04/12/2020 REASON FOR FOLLOWUP: Left third toe MRSA osteomyelitis. INTERVAL HISTORY: The patient is currently afebrile. The patient is breathing comfortably. Denies having any chest pain. Breathing has slightly improved. No cough or sputum production. No vomiting and no pain to the left third toe area. PHYSICAL EXAMINATION: Blood pressure is 163/83 with a pulse of 63, temperature 98.5. She is 95% on room air. General description is an elderly female lying in bed in no distress. RESPIRATORY SYSTEM: Unlabored breathing, clear to auscultation anteriorly. HEART: S1, S2. Regular rate and rhythm. ABDOMEN: Soft, no tenderness. Left foot is currently dressed up. No obvious drainage on the dressing. DIAGNOSTIC IMPRESSION AND PLAN: Patient with left third toe MRSA infection with evidence of underlying osteomyelitis. The patient did get a PICC line. Currently waiting for outpatient IV antibiotic arrangement. Continue with supportive care. MMODL / IJN: [id number] /
[2020-04-13] MEDS: HYDROcodone/APAP 7.5-325MG 1 EACH TAB PO PRN ×2 (02:02→08:21)
[2020-04-13] MEDS: LEVOTHYROXINE 100 MCG TAB PO SCH (05:41)
[2020-04-13] MEDS ORDERED: VANCOMYCIN TROUGH DUE 1 EACH MISC MISCELLANE ONE (07:00)
[2020-04-13 07:13] VITALS: RESP 18; TEMP 97.9
[2020-04-13] MEDS: METOPROLOL TARTRATE 25 MG TAB PO SCH ×2 (08:12→16:08)
[2020-04-13] MEDS: NAPROXEN 250 MG TAB PO SCH (08:12)
[2020-04-13] MEDS: CHLORTHALIDONE 25 MG TAB PO SCH (08:12)
[2020-04-13] MEDS: PREGABALIN 100 MG CAP PO SCH ×2 (08:12→16:08)
[2020-04-13] MEDS: VANCOMYCIN 2,000 MG in SODIUM CHLORIDE 0.9% 500 ML 500 ML IVPB SCH (08:13)
[2020-04-13] MEDS: ENOXAPARIN 40 MG/0.4 ML SYRINGE SQ SCH (08:13)
[2020-04-13] MEDS: lisinopriL 10 MG TAB PO SCH (08:13)
[2020-04-13] MEDS: IPRATROPIUM-ALBUTEROL 3 ML NEB INHALATION SCH ×3 (08:20→19:25)
[2020-04-13] MEDS: ACETAMINOPHEN TAB 325 MG TAB PO PRN (09:59)
[2020-04-13] MEDS ORDERED: LORazepam 2 MG/ML INJ ONE (12:34)
--- NOTE | 2020-04-13 13:36 | MR ---
EXAMINATION TYPE: MR angio head wo con DATE OF EXAM: 04/13/2020 COMPARISON: None HISTORY: Persistent headache CONTRAST: None TECHNIQUE: Multiplanar multiecho imaging on a 3.0 Eloisa magnet is performed through the [place] [facility] [place]. 3-D [id number] imaging is performed. Source images are reviewed on the computer in the axi al plane. Reconstructed images rotating on the computer are reviewed. FINDINGS: The internal carotid arteries bifurcate normally into A1 and M1 segments. The A2 segments are normal. Middle cerebral artery branches are normal. Anterior communicating artery is patent. The right posterior communicating artery is absent. The left posterior communicating artery is absent. Vertebrobasilar arteries within the idgsh-[id number] are normal. Posterior cerebral vasculature is norm al. No suspicious aneurysm or aneurysmal dilatation is evident. No obstructions are identified. No significant flow-limiting stenosis is evident. IMPRESSIONS: 1. NORMAL MRA [place].
--- NOTE | 2020-04-13 13:45 | MR ---
EXAMINATION TYPE: MR brain wo/w con DATE OF EXAM: 04/13/2020 COMPARISON: CT brain 07/24/2018 HISTORY: Persistent headache CONTRAST: Performed utilizing 14 mL intravenous Gadavist gadolinium contrast. TECHNIQUE: Multiplanar, multiecho imaging on a 3.0 Eloisa magnet is performed through the brain. Stud y is performed within 24 hours of arrival to the hospital. The craniovertebral junction is normal. The pituitary is normal. Diffusion-weighted imaging is performed. No abnormal hyperintensity is present to suggest an acute i ntracranial infarct or acute ischemic change. There is an enhancing lesion within the right cerebellar pontine angle. This has a dural tail and charu sures approximately 1.4 x 1.5 cm in size. This has some mass effect on the adjacent brain. No suspici ous edema is adjacent. Findings are most likely related to a meningioma. This appears to correspond t o the calcification within the right cerebellar pontine angle on the CT exam Signal within the brain is normal. Internal auditory canals as visualized are normal. Ventricles and sulci are appropriate for the patient age. IMPRESSIONS: 1. Enhancing lesion along the right cerebellar pontine angle measuring approximately 1.4 cm in size m ost likely is a meningioma.
[2020-04-13 14:35] VITALS: BP 150/72; PULSE 57
[2020-04-13] MEDS ORDERED: BUTALB/APAP/CAFF 50-325-40MG TAB PO PRN (15:49)
--- NOTE | 2020-04-13 18:22 | P.CNNES ---
History of Present Illness Consult date: 04/13/20 Requesting physician: Tal Magallanes Reason for Consult: Headache History of Present Illness: Patient is a 64-year-old female came to the hospital on 04/06/2020 for left leg pain and swelling open ulcer to the calf area as well as significant pain in the middle toe. Patient has history of recurrent cellulitis with amputation. No fevers, injury or trauma. Neurology was consulted for headache, that started 2 days after she was admitted to the hospital. She has been having bifrontal headaches for the last 5 days, a t present she rates it 10/10, last all day. There is no nausea or vomiting. Bright light bothers her but no noise sensitivity although she has not been exposed to loud noise. Patient has received Port[place], Tylenol, ice packs without relief. Her blood pressure has been running high in 160 to 170s systolic's. Patient was started on metoprolol, and chlorthalidone, but patient is not taking chlorthalidone as it makes her pee a lot. Patient denies any focal symptoms. Denies any fever or chills. She never has any history of migraines. No family history of migraines. Patient denies any sinus congestion, runny nose. Patient states that she does drink or 1 cup of coffee almost every day, but since she is in the hospital she has not drank coffee. Patient underwent MRI of the brain with and without contrast on 04/13/2020, which revealed enhancing lesion along the right cerebellar pontine angle measuring approximately 1.4 cm in size, most likely a meningioma. MRA of the head was normal. Patient's blood test shows WBC 3.8 hemoglobin 9.8, platelets 114. ESR 37, C-reactive protein 1.0 which is borderline, Chem-7 normal, hepatic panel normal. Patient's B12 was 244 on 02/04/2019. Methylmalonic acid 0.27. Folate 9.5. Serum protein electrophoresis was negative, rheumatoid factor is elevated 74/15, TELMA negative. Review of Systems Patient denies chest pain, shortness of breath, wheezing. Denies abdominal pain nausea vomiting diarrhea. Patient has has swelling of her feet, skin changes the legs. Denies any fever or chills. Denies any problems with vision, hoarseness, sore throat, dysphagia. Patient complains of fatigue. Patient complains of frequency of urine and stress incontinence. Chronic anemia, umbilicus hernia, hypothyroidism No dysuria. Patient has arthritis, chronic back pain. Patient is dependent on wheelchair. Past Medical History Past Medical History: Hyperlipidemia, Hypertension, Osteoarthritis (OA), Skin Disorder, Thyroid Disorder Additional Past Medical History / Comment(s): Nonambulatory/pivots to wheelchair normally, low back pain, neuropathy bilateral feet, chronic venous stasis, past L heel/L posterior yost/left second toe wounds, past L 2nd toe osteomyelitis-now amptuated, L great toe amptutated; bilateral leg cellulitis, lymphedema left leg, past R ankle fracture x3, UTIs, urinary stress incontinence, chronic anemia, umbilical hernia, hypothyroid, pyoderma gangrenosum. History of Any Multi-Drug Resistant Organisms: MRSA, VRE, VRE Date of last positivie culture/infection: 05/06/19-VRE 04/07/20 mrsa MDRO Source:: Left Foot-VRE, Left Foot and Leg MRSA Past Surgical History: Section, Cholecystectomy, Orthopedic Surgery, Tubal Ligation Additional Past Surgical History / Comment(s): L leg I&D, bilateral knee arthroscopies, L great toe and 2nd toe amp d/t nonhealing wounds, PICCS, midlines, D&Cs Past Anesthesia/Blood Transfusion Reactions: Previous Problems w/ Anesthesia Additional Past Anesthesia/Blood Transfusion Reaction / Comment(s): Slow to come out of it/muscle weakness Past Psychological History: No Psychological Hx Reported, Depression Smoking Status: Never smoker Past Alcohol Use History: None Reported Past Drug Use History: None Reported - Past Family History Father Family Medical History: Cancer, Coronary Artery Disease (CAD), Myocardial Infarction ([place]), Prostate Disorder Additional Family Medical History / Comment(s): Prostate CA. Father in a MVA at the age of 80yrs. Mother Family Medical History: Cancer, CVA/TIA, Hyperlipidemia Additional Family Medical History / Comment(s): Lung CA-left lobe removed. Medications and Allergies Home Medications Medication Instructions Recorded Confirmed Type Levothyroxine Sodium [Synthroid] 100 mcg PO DAILY 08/29/13 04/06/20 History Atorvastatin Calcium [Lipitor] 10 mg PO HS 10/06/18 04/06/20 History Pregabalin [Lyrica] 100 mg PO TID 02/03/19 04/06/20 History HYDROcodone/APAP 7.5-325MG [[place]age 1 tab PO Q6H PRN 03/18/19 04/06/20 History 7.5-325] Butalb/APAP/Caff 50-325-40Mg 1 each PO Q4HR PRN #30 tab 04/13/20 Rx [Fioricet 50-325-40] Lisinopril-Hctz 20-12.5 mg 1 tab PO BID #60 tab 04/13/20 Rx [Zestoretic 20-12.5] Melatonin 3 mg PO HS tablet 04/13/20 Rx Metoprolol Tartrate [Lopressor] 25 mg PO TID #90 tab 04/13/20 Rx Naproxen [Naprosyn] 250 mg PO BID #30 tab 04/13/20 Rx Vancomycin 2,250 mg IVPB Q24H vial 04/13/20 Rx Allergies Allergy/AdvReac Type Severity Reaction Status Date / Time Sulfa (Sulfonamide Allergy Rash/Hives Verified 04/06/20 06:42 Antibiotics) levofloxacin [From Levaquin] AdvReac Itching Verified 04/06/20 06:42 Physical Examination - Vital Signs Vital Signs: Vital Signs Temp Pulse Pulse Pulse Resp BP Pulse Ox 04/13/20 14:00 97.9 F 57 L 18 150/72 97 04/13/20 11:56 62 04/13/20 11:44 62 04/13/20 07:12 97.9 F 59 L 18 163/79 92 L 04/13/20 01:55 97.7 F 64 16 145/73 96 04/12/20 19:35 98.5 F 63 19 163/83 94 L 04/12/20 19:00 18 Intake and Output 04/13/20 04/13/20 04/13/20 06:59 14:59 22:59 Other: # Voids 2 # Bowel Movements 1 Weight 138.532 kg On examination patient is an elderly female, in no acute distress. Patient is alert and awake oriented to time place and person. Speech and language functions are normal. Attention, concentration and fund of knowledge is adequate. On cranial exertion pupils are round and reactive to light, visual khan are full on confrontation, extraocular muscles are intact with no nystagmus. Face is symmetric, tongue protrudes to the midline. Palatal elevation and sensation normal, hearing and shoulder shrug normal. Facial sensation normal. On muscle strength testing there is no pronator drift and the strength is normal in the arms and legs distally and proximally. Deep tendon reflexes are diminished, plantars are flat. Sensory touch is equal with no neglect. No ataxia for [id number] testing, cannot perform in the legs. Gait deferred. On general examination there is no obvious bruit, S1 and S2 audible, abdomen so ft nontender, patient has peripheral edema, skin changes noted. Peripheral pulses were not felt. Results - Laboratory Findings CBC and BMP: 04/08/20 06:03 04/12/20 06:50 Abnormal Lab Findings: Abnormal Labs 04/06/20 04/06/20 04/07/20 00:17 00:17 07:47 RBC 3.45 L Hgb 10.6 L Hct 31.2 L Plt Count 137 L Lymphocytes # 0.7 L ESR 37 H Alkaline Phosphatase 137 H C-Reactive Protein Total Protein 6.1 L Albumin 3.4 L 04/08/20 04/13/20 06:03 06:25 RBC 3.19 L Hgb 9.8 L Hct 30.1 L Plt Count 114 L Lymphocytes # 0.5 L ESR Alkaline Phosphatase C-Reactive Protein 1.0 H Total Protein Albumin Assessment and Plan Assessment: * Cephalalgia, unclear etiology, perhaps related to high blood pressure, or related to caffeine withdrawal. * Hypertension * Morbid obesity * Arthritis * Osteomyelitis of the toe * Nonambulatory/pivots to wheelchair * Chronic low back pain * Peripheral neuropathy * Chronic venous stasis with lymphedema Plan: * Optimize control of blood pressure. Patient was reinforced to make sure compliant with her blood pressure medication. * Fioricet as needed, as Fioricet has caffeine may help with possible caffeine withdrawal headache. * Patient's MRI of the brain with and without IV contrast revealed 1.4 cm meningioma, which is likely not the cause of headache. Patient was recommended to follow up with neurosurgeon as outpatient, and may need serial/surveillance MRI periodically.
--- NOTE | 2020-04-13 21:52 | P.DS ---
Providers Date of admission: 04/06/20 00:12 Expected date of discharge: 04/13/20 Attending physician: Tal Magallanes Consults: 04/06/20 00:13 Consult Physician Routine Consulting Provider: Luis E Danielson Consult Reason/Comments: known Do you want consulting provider notified?: Yes 04/06/20 20:16 Consult Physician Routine Consulting Provider: Thea Hernandez Consult Reason/Comments: Possible acute osteoarthritis Do you want consulting provider notified?: Yes 04/12/20 14:57 Consult Physician Routine Consulting Provider: Laura Rodriguez Consult Reason/Comments: headache Do you want consulting provider notified?: Yes Primary care physician: [facility] Course: Chief Complaint: Painful swollen toe History of presenting complaint: This is a pleasant 63-year-old patient of Dr. Mcfarlane. Chronic stable medical conditions include idiopathic peripheral neuropathy, morbid obesity, primary osteoarthritis, essential hypertension, hypothyroid, , urinary stress incontinence, chronic venous stasis, hyperlipidemia, bilateral lower extremity lymphedema, pyoderma gangrenosum, chronic low back pain.. uses a wheelchair to get about. Patient now presents to the ER with cellulitis and increasing pain in the left foot middle toe and a superficial ulcer to the left cough area and cervical pain to the middle toe. Denies any fever. Significant pain. Going on for about a week. Patient pretty much in the wheelchair all the time. Sometimes will pivot. Started on IV ceftriaxone and vancomycin. Bone scan-possible osteomyelitis-wound culture growing MRSA. Ceftriaxone discontinued. No surgical intervention. Patient is having headache. Seen by neurology. Townley to be nonspecific or caffeine withdrawal. 1.4 cm lesion right cerebellar pontine angle likely meningioma-patient advised to follow with neurosurgery in the next few months. Patient to have home IV vancomycin and she'll follow-up at the wound care center with Dr. Morris. Today-For the headaches patient been put on Fioricet when necessary. Discussed with Dr. Hinton from neurology. Discussed with patient. Discussion and discharge planning more than 35 minutes Consultation: Dr. Hinton from neurology Dr. Morris from vascular [facility] Physical examination: VITAL SIGNS: 97.9, 57, 18, 150 was 72, 97% room air GENERAL: , Reclining in bed, comfortable EYES: Pupils equal. Conjunctiva normal. NECK: JVD unable to assess; masses not palpable. HEART: Distal heart sounds; some edema. LUNGS: Respiratory rate normal; distant breath sounds. ABDOMEN: Soft, nontender, liver spleen not palpable, no masses palpable. Umbilical hernia PSYCH: Alert and oriented x3; mood and affect normal. LYMPHATICS: lower extremity lymphedema MUSCULAR skeletal: lower extremity with venous is insufficiency and lymphedema, chronic skin changes Left lower extremity: absent first and second toe, middle toe -decreased inflammation signs. Superficial discoloration of skin in the calf area INVESTIGATIONS, reviewed in the clinical context: MRI of the brain-1.4 cm lesion at the right cerebellar pontine angle most likely meningioma MRA brain-unremarkable Bone scan-cannot rule out osteoarthritis Chest CTA-negative for PE Left third toe culture-presumptive MRSA April 08: White count 3.8 hemoglobin 9.8 platelets 114 April 07: Creatinine 0.8 ESR 37 White count 4.9 hemoglobin 10.6 platelets 137 potassium 3.9 creatinine 0.74 Left foot f-oji-fqbxqgqisych lucency in the terminal tuft of the third distal phalanx. Soft tissue swelling Assessment: -left third toe acutely inflamed, with surrounding areas of redness tenderness. /Dactylitis acute. And acute osteomyelitis per bone scan. Wound culture growing MRSA -chronic low back pain, likely from spinal stenosis/herniated disc with radiculopathy and down and affect.-likely from L1-L2 and L3-L4 nerve distribution. -History of Pyoderma gangrenosum -Hyperlipidemia -Essential hypertension -Primary osteoarthritis -Hypothyroid -Chronic medical debility uses wheelchair -Idiopathic peripheral neuropathy -Chronic venous stasis -Bilateral lower extremity lymphedema -Chronic urinary stress incontinence -Chronic umbilical hernia -Left leg posteriorly, decubitus ulcer, POA -Morbid obesity BMI 46.4 -Suspect underlying restrictive lung disease from obesity hypoventilation syndrome. -Possible caffeine withdrawal headache. 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-to follow up with neurosurgery as outpatient through PCP Disposition: Home Patient Condition at Discharge: Stable Plan - Discharge Summary Discharge Rx Participant: No New Discharge Prescriptions: New Butalb/APAP/Caff 50-325-40Mg [Fioricet 50-325-40] 1 each PO Q4HR PRN #30 tab PRN Reason: Headache Metoprolol Tartrate [Lopressor] 25 mg PO TID #90 tab Melatonin 3 mg PO HS tablet Naproxen [Naprosyn] 250 mg PO BID #30 tab Vancomycin 2,250 mg IVPB Q24H vial Lisinopril-Hctz 20-12.5 mg [Zestoretic 20-12.5] 1 tab PO BID #60 tab Continue Levothyroxine Sodium [Synthroid] 100 mcg PO DAILY Atorvastatin Calcium [Lipitor] 10 mg PO HS Pregabalin [Lyrica] 100 mg PO TID HYDROcodone/APAP 7.5-325MG [Dittmer 7.5-325] 1 tab PO Q6H PRN PRN Reason: Pain Discontinued lisinopriL [Zestril] 10 mg PO DAILY #0 Discharge Medication List Levothyroxine Sodium [Synthroid] 100 mcg PO DAILY 08/29/13 [History] Atorvastatin Calcium [Lipitor] 10 mg PO HS 10/06/18 [History] Pregabalin [Lyrica] 100 mg PO TID 02/03/19 [History] HYDROcodone/APAP 7.5-325MG [D[place]mer 7.5-325] 1 tab PO Q6H PRN 03/18/19 [History] Butalb/APAP/Caff 50-325-40Mg [Fioricet 50-325-40] 1 each PO Q4HR PRN #30 tab 04/13/20 [Rx] Lisinopril-Hctz 20-12.5 mg [Zestoretic 20-12.5] 1 tab PO BID #60 tab 04/13/20 [Rx] Melatonin 3 mg PO HS tablet 04/13/20 [Rx] Metoprolol Tartrate [Lopressor] 25 mg PO TID #90 tab 04/13/20 [Rx] Naproxen [Naprosyn] 250 mg PO BID #30 tab 04/13/20 [Rx] Vancomycin 2,250 mg IVPB Q24H vial 04/13/20 [Rx] Follow up Appointment(s)/Referral(s): Adonis Mcfarlane DO [Primary Care Provider] - 04/18/20 9:40 am [facility], [NON-STAFF] - 1 Week [facility], [REFERRING] - Patient Instructions/Handouts: MRSA (Methicillin-Resistant Staphylococcus Aureus) (DC), Migraine Headache (ED), Osteomyelitis (DC) Activity/Diet/Wound Care/Special Instructions: RN spoke with [facility]. They will coordinate delivery of antibiotics and homecare visit for tomorrow 04/14. f/u with neurosurgery thru PCP - 3- 6 months
--- NOTE | 2020-04-14 00:27 | PN ---
PROGRESS NOTE DATE OF SERVICE: 04/14/2020 REASON FOR FOLLOWUP: Left toe MRSA osteomyelitis. INTERVAL HISTORY: The patient is currently afebrile. The patient is breathing comfortably. Denies having any chest pain. No shortness of breath, cough, abdominal pain or pain to the left third toe. PHYSICAL EXAMINATION: Blood pressure 150/72 with a pulse of 57. Temperature 97.9. She is 97% on room air. General description: The patient is an elderly female lying in bed in no distress. Respiratory system: Unlabored breathing. Clear to auscultation anteriorly. Heart S1, S2. Regular rate and rhythm. ABDOMEN: Soft, no tenderness. Left foot is currently dressed up. No obvious drainage on the dressing. DIAGNOSTIC IMPRESSION AND PLAN: Patient with left third toe acute osteomyelitis and MRSA. Covered with vancomycin she will continue vancomycin to finish a 4 to 6 week course of therapy and close outpatient followup. MMODL / IJN: [id number] /
[2020-04-14] MEDS ORDERED: VANCOMYCIN 2,250 MG in SODIUM CHLORIDE 0.9% 500 ML 500 ML IVPB SCH (08:00)
== END 2020-04-13 20:00 | disposition home health service (06) | DRG 638 ==
LOC: EC 23:09 → 4SSUR 04-06 00:12
PROVIDERS: ADMIT Hospitalist; ATTEND Hospitalist
PROC: 02HV33Z Insertion of Infusion Device into Superior Vena Cava, Percutaneous Approach (ICD-10-PCS; principal; 2020-04-11 11:30)
DX: E11.69 Type 2 diabetes mellitus with other specified complication (principal); M86.172 Other acute osteomyelitis, left ankle and foot; F15.93 Other stimulant use, unspecified with withdrawal; L03.116 Cellulitis of left lower limb; L88 Pyoderma gangrenosum; L97.922 Non-pressure chronic ulcer of unspecified part of left lower leg with fat layer exposed; L97.229 Non-pressure chronic ulcer of left calf with unspecified severity; Z68.42 Body mass index [BMI] 45.0-49.9, adult; B95.62 Methicillin resistant Staphylococcus aureus infection as the cause of diseases classified elsewhere; D32.9 Benign neoplasm of meninges, unspecified; E03.9 Hypothyroidism, unspecified; E11.51 Type 2 diabetes mellitus with diabetic peripheral angiopathy without gangrene; E11.621 Type 2 diabetes mellitus with foot ulcer; E11.628 Type 2 diabetes mellitus with other skin complications; E66.01 Morbid (severe) obesity due to excess calories; E78.5 Hyperlipidemia, unspecified; G44.209 Tension-type headache, unspecified, not intractable; G60.9 Hereditary and idiopathic neuropathy, unspecified; G89.29 Other chronic pain; I10 Essential (primary) hypertension; I83.028 Varicose veins of left lower extremity with ulcer other part of lower leg; I87.8 Other specified disorders of veins; I89.0 Lymphedema, not elsewhere classified; K42.9 Umbilical hernia without obstruction or gangrene; L89.90 Pressure ulcer of unspecified site, unspecified stage; L97.521 Non-pressure chronic ulcer of other part of left foot limited to breakdown of skin; E11.622 Type 2 diabetes mellitus with other skin ulcer; Z79.1 Long term (current) use of non-steroidal anti-inflammatories (NSAID); Z79.890 Hormone replacement therapy; M54.16 Radiculopathy, lumbar region; Z80.1 Family history of malignant neoplasm of trachea, bronchus and lung; Z80.42 Family history of malignant neoplasm of prostate; Z82.3 Family history of stroke; Z82.49 Family history of ischemic heart disease and other diseases of the circulatory system; Z88.1 Allergy status to other antibiotic agents; Z88.2 Allergy status to sulfonamides; M19.91 Primary osteoarthritis, unspecified site; M48.00 Spinal stenosis, site unspecified; Z90.49 Acquired absence of other specified parts of digestive tract; Z98.51 Tubal ligation status; D63.8 Anemia in other chronic diseases classified elsewhere
CPT/HCPCS: 36415; 36573; 70544; 70553; 71275; 78315; 80053; 80202; 82565; 83605; 83735; 84100; 85025; 85610; 85652; 85730; 86140; 87040; 87070; 87077; 87186; 87205; 94640; 96361; 96365; 96366; 96367; 96375; 99285

== ENCOUNTER 2020-07-09 15:18 | Inpatient (IN) | payer MEDICARE ==
--- NOTE | 2020-07-09 16:12 | ED ---
Skin/Abscess/FB HPI - General Chief complaint: Skin/Abscess/Foreign Body Stated complaint: IV antibiotics Time Seen by Provider: 07/09/20 15:39 Source: patient, RN notes reviewed Mode of arrival: ambulatory Limitations: no limitations - History of Present Illness Initial comments: 64-year-old white female presents to the emergency room with complaints of left third digit pain, swelling, discoloration. Patient states was at wound care doctor's office, Dr. Danielson, and told to come to the emergency room for admission to Dr. Magallanes for amputation. Patient states has been taking Franklin since last night with no relief took 2 at 8 PM yesterday and another dose today at 10:30. MD complaint: discoloration (3rd digit left foot) -: days(s) (1. Increased pain since 1899 yesterday) Location: L foot (3rd digit, first and second toe amputated) Severity: severe Severity scale (1-10): 10 Quality: other ("jacqui") Consistency: constant Improves with: none (no relief with norco) Worsens with: palpation, movement Associated symptoms: denies other symptoms Treatments Prior to Arrival: bandages, prescription analgesic (norco last dose at 1030) - Related Data Home Medications Medication Instructions Recorded Confirmed Levothyroxine Sodium [Synthroid] 100 mcg PO DAILY 08/29/13 07/09/20 Atorvastatin Calcium [Lipitor] 10 mg PO HS 10/06/18 07/09/20 Pregabalin [Lyrica] 100 mg PO TID 02/03/19 07/09/20 HYDROcodone/APAP 7.5-325MG [Franklin 1 tab PO Q6H PRN 03/18/19 07/09/20 7.5-325] amLODIPine [Norvasc] 5 mg PO DAILY 07/09/20 07/09/20 lisinopriL [Zestril] 20 mg PO BID PRN 07/09/20 07/09/20 Allergies Allergy/AdvReac Type Severity Reaction Status Date / Time Sulfa (Sulfonamide Allergy Rash/Hives Verified 07/09/20 16:59 Antibiotics) vancomycin Allergy Rash/Hives Verified 07/09/20 22:21 levofloxacin [From Levaquin] AdvReac Itching Verified 07/09/20 16:59 Review of Systems ROS Statement: Those systems with pertinent positive or pertinent negative responses have been documented in the HPI. ROS Other: All systems not noted in ROS Statement are negative. Past Medical History Past Medical History: Hyperlipidemia, Hypertension, Osteoarthritis (OA), Skin Disorder, Thyroid Disorder Additional Past Medical History / Comment(s): Nonambulatory/pivots to wheelchair normally, low back pain, neuropathy bilateral feet, chronic venous stasis, past L heel/L posterior yost/left second toe wounds, past L 2nd toe osteomyelitis-now amptuated, L great toe amptutated; bilateral leg cellulitis, lymphedema left leg, past R ankle fracture x3, UTIs, urinary stress incontinence, chronic anemia, umbilical hernia, hypothyroid, pyoderma gangrenosum. History of Any Multi-Drug Resistant Organisms: MRSA, VRE, VRE Date of last positivie culture/infection: 05/06/19-VRE 04/07/20 mrsa MDRO Source:: Left Foot-VRE, Left Foot and Leg MRSA Past Surgical History: Section, Cholecystectomy, Orthopedic Surgery, Tubal Ligation Additional Past Surgical History / Comment(s): L leg I&D, bilateral knee arthroscopies, L great toe and 2nd toe amp d/t nonhealing wounds, PICCS, midlines, D&Cs Past Anesthesia/Blood Transfusion Reactions: Previous Problems w/ Anesthesia Additional Past Anesthesia/Blood Transfusion Reaction / Comment(s): Slow to come out of it/muscle weakness Past Psychological History: No Psychological Hx Reported, Depression Smoking Status: Never smoker Past Alcohol Use History: None Reported Past Drug Use History: None Reported - Past Family History Father Family Medical History: Cancer, Coronary Artery Disease (CAD), Myocardial Infarction ([place]), Prostate Disorder Additional Family Medical History / Comment(s): Prostate CA. Father in a MVA at the age of 80yrs. Mother Family Medical History: Cancer, CVA/TIA, Hyperlipidemia Additional Family Medical History / Comment(s): Lung CA-left lobe removed. General Exam Limitations: no limitations, physical limitation (difficulty ambulating, transfers with assist) General appearance: alert, in no apparent distress Head exam: Present: atraumatic, normocephalic, normal inspection Eye exam: Present: normal appearance, PERRL, EOMI. Absent: scleral icterus, conjunctival injection, periorbital swelling ENT exam: Present: normal exam, mucous membranes moist Neck exam: Present: normal inspection. Absent: tenderness, meningismus, lymphadenopathy Respiratory exam: Present: normal lung sounds bilaterally. Absent: respiratory distress, wheezes, rales, rhonchi, stridor, chest wall tenderness, accessory muscle use Cardiovascular Exam: Present: regular rate, normal rhythm, normal heart sounds. Absent: systolic murmur, diastolic murmur, rubs, gallop, clicks GI/Abdominal exam: Present: soft, normal bowel sounds. Absent: distended, tend erness, guarding, rebound, rigid Left Foot/Toe exam: Present: normal inspection (flaking skin from both feet), tenderness, swelling, erythema. Absent: full ROM, laceration Neurovascular tendon exam: Absent: pallor Gait: unable to bear weight Neurological exam: Present: alert, oriented X3, CN II-XII intact Psychiatric exam: Present: normal affect, normal mood Skin exam: Present: warm, dry, intact, normal color. Absent: rash Course Vital Signs 07/09/20 07/09/20 07/09/20 15:25 17:32 19:00 Temperature 97.4 F L 97.8 F Pulse Rate 64 62 58 L Respiratory 18 16 18 Rate Blood Pressure 105/55 116/56 O2 Sat by Pulse 98 100 99 Oximetry 07/09/20 07/10/20 23:16 04:00 Temperature Pulse Rate 64 65 Respiratory 18 19 Rate Blood Pressure 92/68 90/54 O2 Sat by Pulse 99 99 Oximetry Medical Decision Making - Medical Decision Making Spoke with Dr. Magallanes and Dr. Danielson both aware of patient being in the emergency room for admission and possible irritation of the third digit of the left foot. Will consult infectious disease Dr Hernandez was requested by Dr. Danielson.. - Lab Data Result diagrams: 07/09/20 16:11 07/10/20 03:41 Lab Results 07/09/20 07/09/20 Range/Units 16:11 16:11 WBC 4.2 (3.8-10.6) k/uL RBC 3.60 L (3.80-5.40) m/uL Hgb 11.1 L (11.4-16.0) gm/dL Hct 33.0 L (34.0-46.0) % MCV 91.5 (80.0-100.0) fL MCH 30.8 (25.0-35.0) pg MCHC 33.6 (31.0-37.0) g/dL RDW 15.1 (11.5-15.5) % Plt Count 105 L (150-450) k/uL MPV 9.8 Neutrophils % 73 % Lymphocytes % 14 % Monocytes % 8 % Eosinophils % 3 % Basophils % 0 % Neutrophils # 3.1 (1.3-7.7) k/uL Lymphocytes # 0.6 L (1.0-4.8) k/uL Monocytes # 0.3 (0-1.0) k/uL Eosinophils # 0.1 (0-0.7) k/uL Basophils # 0.0 (0-0.2) k/uL Sodium 139 (137-145) mmol/L Potassium 4.7 (3.5-5.1) mmol/L Chloride 104 (98-107) mmol/L Carbon Dioxide 29 (22-30) mmol/L Anion Gap 6 mmol/L BUN 20 H (7-17) mg/dL Creatinine 0.93 (0.52-1.04) mg/dL Est GFR (CKD-EPI)AfAm 75 (>60 ml/min/1.73 sqM) Est GFR (CKD-EPI)NonAf 65 (>60 ml/min/1.73 sqM) Glucose 92 (74-99) mg/dL Calcium 9.6 (8.4-10.2) mg/dL - EKG Data EKG shows normal: sinus rhythm Rate: bradycardia (Ventricular rate of 56, DE interval 0.20, QRS 0.76, QTC of 405 ms) Disposition Clinical Impression: Wound of left foot Clinical Impression: (Ruled Out): Wound, open, foot Disposition: [facility] Condition: Good
[2020-07-09 16:20] LABS: Basophils % (A) 0 %; Eosinophils # (A) 0.1 k/uL (0-0.7); Eosinophils % (A) 3 %; HGB 11.1 gm/dL (11.4-16.0); Lymphocytes # (A) 0.6 k/uL (1.0-4.8); Lymphocytes % (A) 14 %; MCH 30.8 pg (25.0-35.0); MCHC 33.6 g/dL (31.0-37.0); MCV 91.5 fL (80.0-100.0); Mean Platelet Volume 9.8; Monocytes # (A) 0.3 k/uL (0-1.0); Monocytes % (A) 8 %; Neutrophils # (A) 3.1 k/uL (1.3-7.7); Neutrophils % (A) 73 %; Platelet Count 105 k/uL (150-450); RDW 15.1 % (11.5-15.5); WBC 4.2 k/uL (3.8-10.6)
[2020-07-09 16:30] LABS: Calcium 9.6 mg/dL (8.4-10.2); Potassium 4.7 mmol/L (3.5-5.1)
--- NOTE | 2020-07-09 16:52 | XR ---
EXAMINATION TYPE: XR chest 2V DATE OF EXAM: 07/09/2020 COMPARISON: 12/13/2018 HISTORY: Preop. TECHNIQUE: 2 views FINDINGS: There is no heart failure nor confluent pneumonic infiltrate. Costophrenic angles are clear . The bony thorax is intact. There is subacromial joint space narrowing and impingement shoulder join ts. IMPRESSION: No active cardiopulmonary disease. No change.
[2020-07-09] MEDS ORDERED: MORPHINE SULFATE 2 MG/ML SYRINGE IVP ONE (16:56)
[2020-07-09] MEDS ORDERED: NALOXONE 0.4 MG/ML 1 ML VIAL IV PRN (17:22)
[2020-07-09] MEDS ORDERED: HYDROcodone/APAP 5-325MG 1 EACH TAB PO STA (17:52)
[2020-07-09] MEDS ORDERED: VANCOMYCIN 2,250 MG in SODIUM CHLORIDE 0.9% 500 ML 500 ML IVPB ONE (21:45)
[2020-07-09] MEDS ORDERED: VANCOMYCIN IV PER PHARMACY 1 EACH MISC MISCELLANE PRN (21:45)
[2020-07-09] MEDS: SODIUM CHLORIDE 0.9% 1,000 ML IV SCH (22:19)
[2020-07-09] MEDS: HYDROmorphone 1 MG/ML 1 ML SYRINGE IVP PRN (22:24)
[2020-07-09] MEDS: DAPTOmycin 750 MG in SODIUM CHLORIDE 0.9% 50 ML IVPB SCH (23:12)
[2020-07-10] MEDS: CEFEPIME 2 GM in SODIUM CHLORIDE 0.9% 100 ML IVPB SCH ×3 (00:03→22:44)
[2020-07-10] MEDS: ATORVASTATIN 10 MG TAB PO SCH ×2 (00:04→22:01)
[2020-07-10] MEDS: PREGABALIN 50 MG CAP PO SCH ×4 (00:05→22:00)
[2020-07-10] MEDS: HYDROmorphone 1 MG/ML 1 ML SYRINGE IVP PRN (05:04)
[2020-07-10] MEDS: LEVOTHYROXINE 100 MCG TAB PO SCH (06:24)
[2020-07-10] MEDS: NAPROXEN 250 MG TAB PO SCH ×3 (12:23→22:00)
[2020-07-10] MEDS ORDERED: VANCOMYCIN 2,250 MG in SODIUM CHLORIDE 0.9% 500 ML 500 ML IVPB SCH (14:00)
[2020-07-10] MEDS: SODIUM CHLORIDE 0.9% 1,000 ML IV SCH ×2 (14:01→17:06)
--- NOTE | 2020-07-10 20:06 | CONS ---
CONSULTATION DATE OF SERVICE: 07/10/2020 REASON FOR CONSULTATION: Left third toe osteomyelitis. HISTORY OF PRESENT ILLNESS: The patient is a 64-year-old female with a past medical history significant for left diabetic foot infection in this patient who did have a diagnosis of left third toe osteomyelitis with MRSA in March of 2020. Patient was advised a 6-week course of IV vancomycin. However, she seemed to have a problem with the vancomycin, which was subsequently switched over to daptomycin. Unfortunately the patient did not follow up in the outpatient setting with us. However, she has been following with Dr. Crain [facility] and has been treated with oral Cipro as well. However, the patient did have persistent swelling and redness of her left third toe with concern for nonhealing osteomyelitis. The patient was seen in the [facility]ound [facility] by Dr. Danielson yesterday and was advised amputation, to which the patient agreed. Subsequently the patient was sent to the ER for admission. The patient denies having any fever or any chills. The patient is complaining of pain to the left third digit, more of a dull aching and throbbing, especially when it bumps into something. Intensity can be 5 to 6 out of 10; no radiation. Currently no open wound or any drainage. REVIEW OF SYSTEMS: Positive points have been mentioned in the HPI. Rest of the systems are negative. PAST MEDICAL HISTORY: Hypertension, hyperlipidemia, osteoarthritis, osteomyelitis. PAST SURGICAL HISTORY: Amputation of the left first and second toes, , cholecystectomy, tubal ligation. SOCIAL HISTORY: No history of smoking, drinking or drug use. FAMILY HISTORY: Father with history of coronary artery disease and HI. Mother with history of CVA, TIA, hyperlipidemia. ALLERGIES: SULFA, VANCOMYCIN, LEVAQUIN. MEDICATIONS: The patient is currently on Lipitor, cefepime, daptomycin, Dilaudid, Synthroid, Narcan, naproxen, Lyrica, IV fluid. PHYSICAL EXAMINATION: Her blood pressure is 100/62 with a pulse of 67, temperature 97.3. She is 98% on room air. General description is an elderly female lying in bed in no distress. No tachypnea or accessory muscle of respiration use. HEENT: Examination shows slight pallor. No scleral icterus. Oral mucous membrane is dry. NECK: Trachea is central. No thyromegaly. LUNGS: Unlabored breathing. Clear to auscultation anteriorly. No wheeze or crackle. HEART: S1, S2. Regular rate and rhythm. ABDOMEN: Soft. No tenderness. No guarding or rigidity. EXTREMITIES: Bilateral extremities with some diffuse swelling. No redness. Left third toe is mildly swollen. No open wound or any drainage. Neurologically the patient is awake, alert, oriented x3. Mood and affect normal. LABS: Hemoglobin is 11.9, white count 4.2, BUN of 20, creatinine 0.93. Previous cultures were positive for MRSA. DIAGNOSTIC IMPRESSION AND PLAN: 1. Patient with left third toe osteomyelitis, failing medical therapy, as the patient has been on IV as well as oral antibiotic therapy, admitted to the hospital for possible amputation of the left third toe. 2. Patient with MULTIPLE ANTIBIOTIC ALLERGIES that will limit the number of antibiotics safe to use. PLAN: 1. Daptomycin 6 mg/kg daily. 2. Await possible surgical amputation and deep cultures. 3. We will follow clinical condition and further adjust medication if needed. Thank you for this consultation. Will follow this patient along with you. MMODL / IJN: [id number] /
--- NOTE | 2020-07-10 23:41 | P.HPIM ---
History of Present Illness H&P Date: 07/10/20 Chief Complaint: Left foot third toe infected History of presenting complaint: This is a pleasant 64-year-old patient of Dr. Mcfarlane. Chronic stable medical conditions include idiopathic peripheral neuropathy, morbid obesity, primary osteoarthritis, essential hypertension, hypothyroid, , urinary stress incontinence, chronic venous stasis, hyperlipidemia, bilateral lower extremity lymphedema, pyoderma gangrenosum, chronic low back pain.. uses a wheelchair to get about. Patient was sent in from the wound care center by Dr. Morris from vascular. Left foot third toe infected. Painful. No fever no chills. Appetite is fair. 5 antibiotics. Review of systems GEN.: Tired EYES: None HEENT: None NECK: None RESPIRATORY: None CARDIOVASCULAR: None GASTROINTESTINAL: None GENITOURINARY: Incontinence MUSCULOSKELETAL: As above LYMPHATICS: Chronic lower extremity lymphedema HEMATOLOGICAL: None PSYCHIATRY: None NEUROLOGICAL: Uses a wheelchair Past medical history: Hyperlipidemia, hypertension, osteoarthritis, hypothyroid, uses wheelchair, peripheral neuropathy, chronic venous stasis, bilateral lower extremity lymphedema, urinary stress incontinence, lymph edema, umbilical hernia, hypothyroid. 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 Alcohol rarely. Physical examination: VITAL SIGNS: 97.4, 64, 18, 10 5 x 55, 100% room air GENERAL: BMI 42.6 laying in bed, not in distress EYES: Pupils equal. Conjunctiva normal. HEENT: External appearance of nose and ears normal, oral cavity grossly normal. NECK: JVD unable to assess; masses not palpable. HEART: Distal heart sounds; some edema. LUNGS: Respiratory rate normal; distant breath sounds. ABDOMEN: Soft, nontender, liver spleen not palpable, no masses palpable. Umbilical hernia PSYCH: Alert and oriented x3; mood and affect normal. LYMPHATICS: lower extremity lymphedema MUSCULAR skeletal: lower extremity with venous iinsufficiency and lymphedema, chronic skin changes Left lower extremity: absent first and second toe, middle toe is inflamed with surrounding erythema.. INVESTIGATIONS, reviewed in the clinical context: WBC 4.2 white count 9.1 L 105 potassium 4.7 creatinine 0.93 Coronavirus [PCR]-not detected Chest x-ray film personally reviewed by me-no obvious infiltrate Assessment and plan: -left third toe acutely inflamed, with surrounding areas of redness tenderness. /Dactylitis acute. Consultation to Dr. Morris from vascular Dr. Garcia from [facility]. Patient may require possible amputation. Patient be started on IV cefepime and daptomycin. -chronic low back pain, likely from spinal stenosis/herniated disc with radiculopathy and down and affect.-likely from L1-L2 and L3-L4 nerve distribution. -History of Pyoderma gangrenosum -Hyperlipidemia, continue Lipitor -Essential hypertension, continue Zestril and Norvasc -Primary osteoarthritis, pain medications when necessary -Hypothyroid, continue Synthroid -Chronic medical debility uses wheelchair -Idiopathic peripheral neuropathy -Chronic venous stasis -Bilateral lower extremity lymphedema -Chronic urinary stress incontinence -Chronic umbilical hernia -Morbid obesity BMI 42.6 Past Medical History Past Medical History: Hyperlipidemia, Hypertension, Osteoarthritis (OA), Skin Disorder, Thyroid Disorder Additional Past Medical History / Comment(s): Nonambulatory/pivots to wheelchair normally, low back pain, neuropathy bilateral feet, chronic venous stasis, past L heel/L posterior yost/left second toe wounds, past L 2nd toe osteomyelitis- now amptuated, L great toe amptutated; current L 3rd digit wound and pt states suspected osteomyelitis, bilateral leg cellulitis, lymphedema left leg, past R ankle fracture x3, UTIs, urinary stress incontinence, chronic anemia, umbilical hernia, hypothyroid, pyoderma gangrenosum, 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 History of Any Multi-Drug Resistant Organisms: MRSA, VRE, VRE Date of last positivie culture/infection: 05/06/19-VRE 04/07/20 mrsa MDRO Source:: Left Foot-VRE, Left Foot and Leg MRSA Past Surgical History: Section, Cholecystectomy, Orthopedic Surgery, Tubal Ligation Additional Past Surgical History / Comment(s): L leg I&D, bilateral knee arthroscopies, L great toe and 2nd toe amp d/t nonhealing wounds, PICCS, midlines, D&Cs Past Anesthesia/Blood Transfusion Reactions: Previous Problems w/ Anesthesia Additional Past Anesthesia/Blood Transfusion Reaction / Comment(s): Slow to come out of it/muscle weakness Smoking Status: Former smoker - Past Family History Father Family Medical History: Cancer, Coronary Artery Disease (CAD), Myocardial Infarction ([place]), Prostate Disorder Additional Family Medical History / Comment(s): Prostate CA. Father in a MVA at the age of 80yrs. Mother Family Medical History: Cancer, CVA/TIA, Hyperlipidemia Additional Family Medical History / Comment(s): Lung CA-left lobe removed. Medications and Allergies Home Medications Medication Instructions Recorded Confirmed Type Levothyroxine Sodium [Synthroid] 100 mcg PO DAILY 08/29/13 07/09/20 History Atorvastatin Calcium [Lipitor] 10 mg PO HS 10/06/18 07/09/20 History Pregabalin [Lyrica] 100 mg PO TID 02/03/19 07/09/20 History HYDROcodone/APAP 7.5-325MG [Barlow 1 tab PO Q6H PRN 03/18/19 07/09/20 History 7.5-325] amLODIPine [Norvasc] 5 mg PO DAILY 07/09/20 07/09/20 History lisinopriL [Zestril] 20 mg PO BID PRN 07/09/20 07/09/20 History Allergies Allergy/AdvReac Type Severity Reaction Status Date / Time Sulfa (Sulfonamide Allergy Rash/Hives Verified 07/09/20 16:59 Antibiotics) vancomycin Allergy Rash/Hives Verified 07/09/20 22:21 levofloxacin [From Levaquin] AdvReac Itching Verified 07/09/20 16:59 Physical Exam Vitals: Vital Signs Temp Pulse Pulse Resp BP BP Pulse Ox 07/10/20 08:00 97.4 F L 60 18 96/51 100 07/10/20 04:00 65 19 90/54 99 07/09/20 23:16 64 18 92/68 99 07/09/20 19:00 97.8 F 58 L 18 116/56 99 07/09/20 17:32 62 16 105/55 100 07/09/20 15:25 97.4 F L 64 18 98 Intake and Output 07/09/20 07/10/20 07/10/20 22:59 06:59 14:59 Other: Weight 127.006 kg 127.006 kg Results CBC & Chem 7: 07/09/20 16:11 07/10/20 03:41 Labs: Abnormal Lab Results - Last 24 Hours (Table) 07/09/20 07/09/20 Range/Units 16:11 16:11 RBC 3.60 L (3.80-5.40) m/uL Hgb 11.1 L (11.4-16.0) gm/dL Hct 33.0 L (34.0-46.0) % Plt Count 105 L (150-450) k/uL Lymphocytes # 0.6 L (1.0-4.8) k/uL BUN 20 H (7-17) mg/dL Thrombosis Risk Factor Assmnt - Choose All That Apply Any of the Below Risk Factors Present?: Yes Each Factor Represents 1 point: Obesity (BMI >25) Other Risk Factors: Yes Each Risk Factor Represents 2 Points: Age 61-74 years Other congenital or acquired thrombophilia - If yes, enter type in comment: No Thrombosis Risk Factor Assessment Total Risk Factor Score: 3 Thrombosis Risk Factor Assessment Level: Moderate Risk
[2020-07-11] MEDS: ENOXAPARIN 40 MG/0.4 ML SYRINGE SQ SCH ×2 (01:07→07:42)
[2020-07-11] MEDS: HYDROmorphone 1 MG/ML 1 ML SYRINGE IVP PRN ×2 (01:16→21:06)
[2020-07-11] MEDS: DAPTOmycin 750 MG in SODIUM CHLORIDE 0.9% 50 ML IVPB SCH ×2 (01:16→23:24)
[2020-07-11] MEDS: SODIUM CHLORIDE 0.9% 1,000 ML IV SCH ×3 (04:48→23:26)
[2020-07-11] MEDS: LEVOTHYROXINE 100 MCG TAB PO SCH (05:57)
[2020-07-11] MEDS: NAPROXEN 250 MG TAB PO SCH ×3 (07:41→21:05)
[2020-07-11] MEDS: PREGABALIN 50 MG CAP PO SCH ×3 (07:42→21:05)
--- NOTE | 2020-07-11 10:28 | PN ---
PROGRESS NOTE The patient is known to me from the past. Patient has been coming to the Wound Clinic on a regular basis. She came with left foot 3rd toe infection with redness on the plantar dorsal aspect of the foot. The patient has been admitted on IV antibiotic under care of Infectious Disease. Today I examined, less redness and less pain today. We will continue the antibiotic. We will review again. There is a possibility she may need a 3rd toe amputation. If she improves with antibiotic, we will follow her in the wound clinic. MMODL / IJN: [id number] /
[2020-07-11] MEDS: CEFEPIME 2 GM in SODIUM CHLORIDE 0.9% 100 ML IVPB SCH (10:31)
--- NOTE | 2020-07-11 10:32 | CONS ---
DATE OF CONSULTATION: 07/11/2020 Patient came to the Wound Clinic. She has been coming on a regular basis. She came with redness and discomfort on the plantar dorsum aspect of the foot involving the 3rd toe. The patient was sent to the ER to be admitted and consult was obtained for Infectious Disease for IV antibiotic and possible amputation. PAST HISTORY: Patient had a left foot big toe and second toe amputation in the past. Medical history is history of diabetes and obesity. PHYSICAL EXAMINATION: Neck is supple. Trachea center. Good air entry in both lungs. First and second sounds normal. Abdomen is soft, nontender. VASCULAR EXAMINATION: Femorals are palpable bilateral, PT, DP by the Doppler. The patient has a left foot 3rd toe which is tender and infected and some redness noted on the plantar dorsal aspect of the foot. PLAN: Will send to the ER to be admitted and a consult obtained from Infectious Disease and will follow with you. MMODL / EMMETTN: [id number] / MTDD
--- NOTE | 2020-07-11 18:20 | PN ---
PROGRESS NOTE DATE OF SERVICE: 07/11/2020 REASON FOR FOLLOWUP: Left third toe osteomyelitis. INTERVAL HISTORY: The patient is currently afebrile. The patient is breathing comfortably. The patient denies having any chest pain or shortness of breath or cough. No nausea, no vomiting, no abdominal pain or pain to the left third toe. PHYSICAL EXAMINATION: Blood pressure 119/72 with a pulse of 77, temperature 97.9. She is 99% on room air. General description is an elderly female lying in bed in no distress. RESPIRATORY SYSTEM: Unlabored breathing. Clear to auscultation anteriorly. HEART: S1, S2. Regular rate and rhythm. ABDOMEN: Soft. No tenderness. Left third toe swelling and redness have slightly decreased. No drainage. LABS: Creatinine 0.86. Blood culture negative. DIAGNOSTIC IMPRESSION AND PLAN: Patient with left third toe osteomyelitis. Previous culture positive for MRSA. The patient will continue with daptomycin because of problem with in the past. Discontinue cefepime. Await amputation. Continue supportive care. MMODL / IJN: [id number] /
[2020-07-11] MEDS: ATORVASTATIN 10 MG TAB PO SCH (21:05)
--- NOTE | 2020-07-11 23:57 | P.PN ---
Progress Note - Text Progress Note Date: 07/11/20 Chief Complaint: Left foot third toe infected History of presenting complaint: This is a pleasant 64-year-old patient of Dr. Mcfarlane. Chronic stable medical conditions include idiopathic peripheral neuropathy, morbid obesity, primary osteoarthritis, essential hypertension, hypothyroid, , urinary stress incontinence, chronic venous stasis, hyperlipidemia, bilateral lower extremity lymphedema, pyoderma gangrenosum, chronic low back pain.. uses a wheelchair to get about. Patient was sent in from the wound care center by Dr. Morris from vascular. Left foot third toe infected. Painful. No fever no chills. Appetite is fair. Started IV daptomycin Today-laying in bed. Toe pain is better. No fever no chills. Did tolerate her diet. Review of systems: Was done for constitutional, cardiovascular, GI, pulmonary. relevant finding as above Active Medications Hydrocodone Bitart/Acetaminophen (Hydrocodone/Apap 5-325mg 1 Each Tab) 1 each PO Q8HR PRN PRN Reason: Mild to Moderate Pain Atorvastatin Calcium (Atorvastatin 10 Mg Tab) 10 mg PO HS [facility] Last Admin: 07/11/20 21:05 Dose: 10 mg Documented by: Enoxaparin Sodium (Enoxaparin 40 Mg/0.4 Ml Syringe) 40 mg SQ DAILY [facility] Last Admin: 07/11/20 07:42 Dose: 40 mg Documented by: Hydromorphone HCl (Hydromorphone 1 Mg/Ml 1 Ml Syringe) 1 mg IVP Q6HR PRN PRN Reason: Severe Pain Last Admin: 07/11/20 21:06 Dose: 1 mg Documented by: Sodium Chloride (Saline 0.9%) 1,000 mls @ 100 mls/hr IV .Q10H [facility] Last Admin: 07/11/20 23:26 Dose: Not Given Documented by: Daptomycin 750 mg/ Sodium (Chloride) 50 mls @ 100 mls/hr IVPB Q24H [facility]; Protocol Last Admin: 07/11/20 23:24 Dose: 100 mls/hr Documented by: Levothyroxine Sodium (Levothyroxine 100 Mcg Tab) 100 mcg PO DAILY@0630 [facility] Last Admin: 07/11/20 05:57 Dose: 100 mcg Documented by: Naloxone HCl (Naloxone 0.4 Mg/Ml 1 Ml Vial) 0.2 mg IV Q2M PRN PRN Reason: Opioid Reversal Naproxen (Naproxen 250 Mg Tab) 250 mg PO TID [facility] Last Admin: 07/11/20 21:05 Dose: 250 mg Documented by: Pregabalin (Pregabalin 50 Mg Cap) 100 mg PO TID [facility] Last Admin: 07/11/20 21:05 Dose: 100 mg Documented by: Past medical history: Hyperlipidemia, hypertension, osteoarthritis, hypothyroid, uses wheelchair, peripheral neuropathy, chronic venous stasis, bilateral lower extremity lymphedema, urinary stress incontinence, lymph edema, umbilical hernia, hypothyroid. 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 Alcohol rarely. Physical examination: VITAL SIGNS: 97.7, 70, 17, 118/72, 99% room air GENERAL: Laying in bed, comfortable EYES: Pupils equal. Conjunctiva normal. HEENT: External appearance of nose and ears normal, oral cavity grossly normal. NECK: JVD unable to assess; masses not palpable. HEART: Distal heart sounds; some edema. LUNGS: Respiratory rate normal; distant breath sounds. ABDOMEN: Soft, nontender, liver spleen not palpable, no masses palpable. Umbilical hernia PSYCH: Alert and oriented x3; mood and affect normal. LYMPHATICS: lower extremity lymphedema MUSCULAR skeletal: lower extremity with venous iinsufficiency and lymphedema, chronic skin changes Left lower extremity: absent first and second toe, middle toe is inflamed with surrounding erythema.. INVESTIGATIONS, reviewed in the clinical context: July 11: Creatinine 0.86 WBC 4.2 white count 9.1 L 105 potassium 4.7 creatinine 0.93 Coronavirus [PCR]-not detected Chest x-ray film personally reviewed by me-no obvious infiltrate Assessment and plan: -left third toe acute osteomyelitis. Consultation to Dr. Morris from vascular Dr. Brown from [facility]. continue IV daptomycin. -chronic low back pain, likely from spinal stenosis/herniated disc with radiculopathy and down and affect.-likely from L1-L2 and L3-L4 nerve distribution. -History of Pyoderma gangrenosum -Hyperlipidemia, continue Lipitor -Essential hypertension, continue Zestril and Norvasc -Primary osteoarthritis, pain medications when necessary -Hypothyroid, continue Synthroid -Chronic medical debility uses wheelchair -Idiopathic peripheral neuropathy -Chronic venous stasis -Bilateral lower extremity lymphedema -Chronic urinary stress incontinence -Chronic umbilical hernia -Morbid obesity BMI 42.6 Care was discussed with the patient.
[2020-07-12] MEDS: LEVOTHYROXINE 100 MCG TAB PO SCH (05:32)
[2020-07-12 07:39] LABS: Basophils % (A) 0 %; Eosinophils # (A) 0.1 k/uL (0-0.7); Eosinophils % (A) 3 %; HCT 29.1 % (34.0-46.0); Lymphocytes # (A) 0.6 k/uL (1.0-4.8); Lymphocytes % (A) 14 %; MCH 30.7 pg (25.0-35.0); MCHC 33.1 g/dL (31.0-37.0); MCV 92.7 fL (80.0-100.0); Mean Platelet Volume 9.7; Monocytes # (A) 0.4 k/uL (0-1.0); Monocytes % (A) 9 %; Neutrophils # (A) 2.9 k/uL (1.3-7.7); Neutrophils % (A) 72 %; RBC 3.14 m/uL (3.80-5.40); RDW 15.2 % (11.5-15.5); WBC 4.1 k/uL (3.8-10.6)
[2020-07-12 07:53] LABS: HGB 9.6 gm/dL (11.4-16.0)
[2020-07-12 08:04] LABS: Anion Gap 3 mmol/L; Blood Urea Nitrogen 16 mg/dL (7-17); Calcium 8.8 mg/dL (8.4-10.2); Carbon Dioxide 26 mmol/L (22-30); Chloride 112 mmol/L (98-107); Glucose 85 mg/dL (74-99); Potassium 3.9 mmol/L (3.5-5.1); Sodium 141 mmol/L (137-145)
[2020-07-12 08:33] LABS: Platelet Count 92 k/uL (150-450); Poikilocytosis (M) Present
[2020-07-12 08:49] LABS: African American GFR (CKD) >90 (>60 ml/min/1.73 sqM); Non-African American GFR(CKD) 81 (>60 ml/min/1.73 sqM)
[2020-07-12] MEDS: PREGABALIN 50 MG CAP PO SCH ×3 (08:58→21:21)
[2020-07-12] MEDS: ENOXAPARIN 40 MG/0.4 ML SYRINGE SQ SCH (08:58)
[2020-07-12] MEDS: NAPROXEN 250 MG TAB PO SCH ×3 (08:58→21:21)
--- NOTE | 2020-07-12 09:52 | PN ---
PROGRESS NOTE This is a 64-year-old female patient who is known to me from the past and from the wound clinic. She came in with redness and painful left foot third toe. The patient had a right big toe second toe amputation in the past. The patient was admitted with IV antibiotic under care of Infectious Disease. The patient is afebrile and redness is less and less tender. No fluctuation noted. She is responding well to the antibiotic. Continue with the same treatment. I will follow with you. EILEEN / RENETTA: [id number] /
[2020-07-12] MEDS: SODIUM CHLORIDE 0.9% 1,000 ML IV SCH ×2 (12:26→19:32)
[2020-07-12] MEDS: ATORVASTATIN 10 MG TAB PO SCH (21:21)
[2020-07-12] MEDS: HYDROmorphone 1 MG/ML 1 ML SYRINGE IVP PRN (22:05)
--- NOTE | 2020-07-12 23:31 | PN ---
PROGRESS NOTE DATE OF SERVICE: 07/12/2020 REASON FOR FOLLOWUP: Left third toe osteomyelitis. INTERVAL HISTORY: The patient is currently afebrile. The patient is feeling better, breathing comfortably. The patient denies having any chest pain or shortness of breath or cough. No abdominal pain. Overall pain and discomfort to the left third toe has improved. Swelling has decreased. No open wound or any drainage. PHYSICAL EXAMINATION: Blood pressure 125/78 with a pulse of 73, temperature 98.3. She is 96% on room air. General description is an elderly female lying in bed in no distress. RESPIRATORY SYSTEM: Unlabored breathing. Clear to auscultation anteriorly. HEART: S1, S2. Regular rate and rhythm. ABDOMEN: Soft. No tenderness. Left third toe swelling and redness decreased. LABS: Hemoglobin 9.3, white count 4.1, BUN of 16, creatinine 0.77. DIAGNOSTIC IMPRESSION AND PLAN: Patient with left third toe osteomyelitis. Previous culture positive for MRSA. Patient was admitted to hospital with concern for possible failure of medical therapy and amputation. However, in view of overall improvement, we are considering IV antibiotic. Will discuss further with the case fitter. Continue with the daptomycin and supportive care. MMODL / IJN: [id number] /
[2020-07-12] MEDS: DAPTOmycin 750 MG in SODIUM CHLORIDE 0.9% 50 ML IVPB SCH (23:32)
--- NOTE | 2020-07-12 23:43 | P.PN ---
Progress Note - Text Progress Note Date: 07/12/20 Chief Complaint: Left foot third toe infected History of presenting complaint: This is a pleasant 64-year-old patient of Dr. Mcfarlane. Chronic stable medical conditions include idiopathic peripheral neuropathy, morbid obesity, primary osteoarthritis, essential hypertension, hypothyroid, , urinary stress incontinence, chronic venous stasis, hyperlipidemia, bilateral lower extremity lymphedema, pyoderma gangrenosum, chronic low back pain.. uses a wheelchair to get about. Patient was sent in from the wound care center by Dr. Morris from vascular. Left foot third toe infected. Painful. No fever no chills. Appetite is fair. Started IV daptomycin Today-laying in bed. Toe pain which improved. No fever no chills. Oral intake GERD Review of systems: Was done for constitutional, cardiovascular, GI, pulmonary. relevant finding as above Past medical history: Hyperlipidemia, hypertension, osteoarthritis, hypothyroid, uses wheelchair, peripheral neuropathy, chronic venous stasis, bilateral lower extremity lymphedema, urinary stress incontinence, lymph edema, umbilical hernia, hypothyroid. 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 Alcohol rarely. Physical examination: VITAL SIGNS: 98.2, 69, 17, 138/77, 96% room air GENERAL: Laying in bed, comfortable EYES: Pupils equal. Conjunctiva normal. HEENT: External appearance of nose and ears normal, oral cavity grossly normal. NECK: JVD unable to assess; masses not palpable. HEART: Distal heart sounds; some edema. LUNGS: Respiratory rate normal; distant breath sounds. ABDOMEN: Soft, nontender, liver spleen not palpable, no masses palpable. Umbilical hernia PSYCH: Alert and oriented x3; mood and affect normal. LYMPHATICS: lower extremity lymphedema MUSCULAR skeletal: lower extremity with venous iinsufficiency and lymphedema, chronic skin changes Left lower extremity: absent first and second toe, middle toe is inflamed with surrounding erythema-much improved INVESTIGATIONS, reviewed in the clinical context: July 12: WBC 4.1 hemoglobin 9.6 platelets 32 potassium 3.9 creatinine 0.77 July 11: Creatinine 0.86 WBC 4.2 white count 9.1 L 105 potassium 4.7 creatinine 0.93 Coronavirus [PCR]-not detected Chest x-ray film personally reviewed by me-no obvious infiltrate Assessment and plan: -left third toe acute osteomyelitis. Consultation to Dr. Morris from vascular Dr. Brown from [facility]. continue IV daptomycin.-Much improved -chronic low back pain, likely from spinal stenosis/herniated disc with radiculopathy and down and affect.-likely from L1-L2 and L3-L4 nerve distribution. -History of Pyoderma gangrenosum -Hyperlipidemia, continue Lipitor -Essential hypertension, continue Zestril and Norvasc -Primary osteoarthritis, pain medications when necessary -Hypothyroid, continue Synthroid -Chronic medical debility uses wheelchair -Idiopathic peripheral neuropathy -Chronic venous stasis -Bilateral lower extremity lymphedema -Chronic urinary stress incontinence -Chronic umbilical hernia -Morbid obesity BMI 42.6 -Acute thrombocytopenia from infection. Care was discussed with the patient. Discharged antibiotics are being considered by Dr. Brown. Patient is not keen to go to the ECF. communication manager involved.
[2020-07-13] MEDS: HYDROcodone/APAP 5-325MG 1 EACH TAB PO PRN (04:27)
[2020-07-13] MEDS: SODIUM CHLORIDE 0.9% 1,000 ML IV SCH ×3 (04:34→23:47)
[2020-07-13] MEDS: lisinopriL 20 MG TAB PO PRN (04:47)
[2020-07-13] MEDS: HYDROmorphone 1 MG/ML 1 ML SYRINGE IVP PRN ×2 (05:55→23:54)
[2020-07-13] MEDS: LEVOTHYROXINE 100 MCG TAB PO SCH (05:55)
[2020-07-13] MEDS: ENOXAPARIN 40 MG/0.4 ML SYRINGE SQ SCH (10:01)
[2020-07-13] MEDS: NAPROXEN 250 MG TAB PO SCH ×3 (10:01→21:25)
[2020-07-13] MEDS: PREGABALIN 50 MG CAP PO SCH ×3 (10:01→21:25)
--- NOTE | 2020-07-13 15:35 | PN ---
PROGRESS NOTE DATE OF SERVICE: 07/13/2020 REASON FOR FOLLOWUP: Left third toe osteomyelitis. INTERVAL HISTORY: The patient is currently afebrile. The patient is breathing comfortably. Patient denies having any chest pain, no shortness of breath or cough. No abdominal pain or any diarrhea. The patient's surgeon has decided to go against amputation and wants to be treated medically. PHYSICAL EXAMINATION: Blood pressure 129/85, pulse of 63 temperature 97.6. She is 98% on room air. General description is an elderly female lying in bed in no distress. RESPIRATORY SYSTEM: Unlabored breathing, clear to auscultation anteriorly. HEART: S1, S2. Regular rate and rhythm. ABDOMEN: Soft, no tenderness. Left foot is currently dressed. No obvious drainage on the dressing. LABS: Hemoglobin 9.6, white count 4.1, creatinine 0.77. DIAGNOSTIC IMPRESSION AND PLAN: Patient with left third toe osteomyelitis previous culture positive for MRSA likely same pathogen. The patient will go with daptomycin 750 mg daily for 6 weeks and close outpatient followup. PICC line will be placed. Continue supportive care. MMODL / IJN: [id number] /
[2020-07-13] MEDS: ATORVASTATIN 10 MG TAB PO SCH (21:25)
--- NOTE | 2020-07-13 22:34 | P.PN ---
Progress Note - Text Progress Note Date: 07/13/20 Chief Complaint: Left foot third toe infected History of presenting complaint: This is a pleasant 64-year-old patient of Dr. Mcfarlane. Chronic stable medical conditions include idiopathic peripheral neuropathy, morbid obesity, primary osteoarthritis, essential hypertension, hypothyroid, , urinary stress incontinence, chronic venous stasis, hyperlipidemia, bilateral lower extremity lymphedema, pyoderma gangrenosum, chronic low back pain.. uses a wheelchair to get about. Patient was sent in from the wound care center by Dr. Morris from vascular. Left foot third toe infected. Painful. No fever no chills. Appetite is fair. Started IV daptomycin Today-comfortable. Receiving IV antibiotics. Oral intake fair. No fever no chills. Review of systems: Was done for constitutional, cardiovascular, GI, pulmonary. relevant finding as above Active Medications Hydrocodone Bitart/Acetaminophen (Hydrocodone/Apap 5-325mg 1 Each Tab) 1 each PO Q8HR PRN PRN Reason: Mild to Moderate Pain Last Admin: 07/13/20 04:27 Dose: 1 each Documented by: Atorvastatin Calcium (Atorvastatin 10 Mg Tab) 10 mg PO HS [facility] Last Admin: 07/13/20 21:25 Dose: 10 mg Documented by: Enoxaparin Sodium (Enoxaparin 40 Mg/0.4 Ml Syringe) 40 mg SQ DAILY [facility] Last Admin: 07/13/20 10:01 Dose: 40 mg Documented by: Hydromorphone HCl (Hydromorphone 1 Mg/Ml 1 Ml Syringe) 1 mg IVP Q6HR PRN PRN Reason: Severe Pain Last Admin: 07/13/20 05:55 Dose: 1 mg Documented by: Sodium Chloride (Saline 0.9%) 1,000 mls @ 100 mls/hr IV .Q10H [facility] Last Admin: 07/13/20 21:27 Dose: Not Given Documented by: Daptomycin 750 mg/ Sodium (Chloride) 50 mls @ 100 mls/hr IVPB Q24H [facility]; Protocol Last Admin: 07/12/20 23:32 Dose: 100 mls/hr Documented by: Levothyroxine Sodium (Levothyroxine 100 Mcg Tab) 100 mcg PO DAILY@0630 [facility] Last Admin: 07/13/20 05:55 Dose: 100 mcg Documented by: Lisinopril (Lisinopril 20 Mg Tab) 20 mg PO BID PRN PRN Reason: Hypertension Last Admin: 07/13/20 04:47 Dose: 20 mg Documented by: Naloxone HCl (Naloxone 0.4 Mg/Ml 1 Ml Vial) 0.2 mg IV Q2M PRN PRN Reason: Opioid Reversal Naproxen (Naproxen 250 Mg Tab) 250 mg PO TID [facility] Last Admin: 07/13/20 21:25 Dose: 250 mg Documented by: Pregabalin (Pregabalin 50 Mg Cap) 100 mg PO TID [facility] Last Admin: 07/13/20 21:25 Dose: 100 mg Documented by: Past medical history: Hyperlipidemia, hypertension, osteoarthritis, hypothyroid, uses wheelchair, peripheral neuropathy, chronic venous stasis, bilateral lower extremity lymphedema, urinary stress incontinence, lymph edema, umbilical hernia, hypothyroid. 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 Alcohol rarely. Physical examination: VITAL SIGNS: 97.6, 58, 16, 120/60, 99% room air GENERAL: Laying in bed, comfortable EYES: Pupils equal. Conjunctiva normal. HEENT: External appearance of nose and ears normal, oral cavity grossly normal. NECK: JVD unable to assess; masses not palpable. HEART: Distal heart sounds; some edema. LUNGS: Respiratory rate normal; distant breath sounds. ABDOMEN: Soft, nontender, liver spleen not palpable, no masses palpable. Umbilical hernia PSYCH: Alert and oriented x3; mood and affect normal. LYMPHATICS: lower extremity lymphedema MUSCULAR skeletal: lower extremity with venous iinsufficiency and lymphedema, chronic skin changes Left lower extremity: absent first and second toe, middle toe is inflamed with surrounding erythema-much improved INVESTIGATIONS, reviewed in the clinical context: July 12: WBC 4.1 hemoglobin 9.6 platelets 32 potassium 3.9 creatinine 0.77 July 11: Creatinine 0.86 WBC 4.2 white count 9.1 L 105 potassium 4.7 creatinine 0.93 Coronavirus [PCR]-not detected Chest x-ray film personally reviewed by me-no obvious infiltrate Assessment and plan: -left third toe acute osteomyelitis. Consultation to Dr. Morris from vascular Dr. Brown from ID. continue IV daptomycin.-Much improved -chronic low back pain, likely from spinal stenosis/herniated disc with radiculopathy and down and affect.-likely from L1-L2 and L3-L4 nerve distri bution. -History of Pyoderma gangrenosum -Hyperlipidemia, continue Lipitor -Essential hypertension, continue Zestril and Norvasc -Primary osteoarthritis, pain medications when necessary -Hypothyroid, continue Synthroid -Chronic medical debility uses wheelchair -Idiopathic peripheral neuropathy -Chronic venous stasis -Bilateral lower extremity lymphedema -Chronic urinary stress incontinence -Chronic umbilical hernia -Morbid obesity BMI 42.6 -Acute thrombocytopenia from infection. Discharge planning being arranged by nurse case manager. Including antibiotics
[2020-07-13] MEDS: DAPTOmycin 750 MG in SODIUM CHLORIDE 0.9% 50 ML IVPB SCH (23:46)
[2020-07-14] MEDS: LEVOTHYROXINE 100 MCG TAB PO SCH (04:46)
[2020-07-14] MEDS: NAPROXEN 250 MG TAB PO SCH ×3 (08:43→21:47)
[2020-07-14] MEDS: PREGABALIN 50 MG CAP PO SCH ×3 (08:43→21:47)
[2020-07-14] MEDS: ENOXAPARIN 40 MG/0.4 ML SYRINGE SQ SCH (08:44)
[2020-07-14] MEDS: HYDROcodone/APAP 5-325MG 1 EACH TAB PO PRN (09:08)
[2020-07-14] MEDS: SODIUM CHLORIDE 0.9% 1,000 ML IV SCH ×2 (16:08→21:48)
--- NOTE | 2020-07-14 17:16 | PN ---
PROGRESS NOTE DATE OF SERVICE: 07/14/2020 REASON FOR FOLLOWUP: Left toe osteomyelitis. INTERVAL HISTORY: Patient is currently afebrile. Patient is breathing comfortably. The patient denies having any chest pain, shortness of breath or cough. No abdominal pain or pain to the left foot third toe. PHYSICAL EXAMINATION: Blood pressure 131/77, pulse of 86, temperature 97.6. She is 99% on room air. GENERAL DESCRIPTION: An elderly female lying in bed in no distress. RESPIRATORY SYSTEM: Unlabored breathing, clear to auscultation anteriorly. HEART: S1, S2. Regular rate and rhythm. ABDOMEN: Soft, no tenderness. LABS: Hemoglobin 9.2, white count 4.1, creatinine 0.77. DIAGNOSTIC IMPRESSION AND PLAN: Patient with left third toe osteomyelitis, admitted to hospital for possible amputation. However, this has now been switched to intent to treat and save the toe. Waiting for the PICC line placement and outpatient antibiotic arrangement before discharge. MMODL / IJN: [id number] /
[2020-07-14] MEDS: HYDROmorphone 1 MG/ML 1 ML SYRINGE IVP PRN (19:30)
--- NOTE | 2020-07-14 19:57 | P.PN ---
Progress Note - Text Progress Note Date: 07/14/20 Chief Complaint: Left foot third toe infected History of presenting complaint: This is a pleasant 64-year-old patient of Dr. Mcfarlane. Chronic stable medical conditions include idiopathic peripheral neuropathy, morbid obesity, primary osteoarthritis, essential hypertension, hypothyroid, , urinary stress incontinence, chronic venous stasis, hyperlipidemia, bilateral lower extremity lymphedema, pyoderma gangrenosum, chronic low back pain.. uses a wheelchair to get about. Patient was sent in from the wound care center by Dr. Morris from vascular. Left foot third toe infected. Painful. No fever no chills. Appetite is fair. Started IV daptomycin Today-comfortable. Receiving IV antibiotics. Oral intake fair. No fever no chills. Review of systems: Was done for constitutional, cardiovascular, GI, pulmonary. relevant finding as above Active Medications Hydrocodone Bitart/Acetaminophen (Hydrocodone/Apap 5-325mg 1 Each Tab) 1 each PO Q8HR PRN PRN Reason: Mild to Moderate Pain Last Admin: 07/14/20 09:08 Dose: 1 each Documented by: Atorvastatin Calcium (Atorvastatin 10 Mg Tab) 10 mg PO HS [facility] Last Admin: 07/13/20 21:25 Dose: 10 mg Documented by: Enoxaparin Sodium (Enoxaparin 40 Mg/0.4 Ml Syringe) 40 mg SQ DAILY [facility] Last Admin: 07/14/20 08:44 Dose: 40 mg Documented by: Hydromorphone HCl (Hydromorphone 1 Mg/Ml 1 Ml Syringe) 1 mg IVP Q6HR PRN PRN Reason: Severe Pain Last Admin: 07/14/20 19:30 Dose: 1 mg Documented by: Sodium Chloride (Saline 0.9%) 1,000 mls @ 100 mls/hr IV .Q10H [facility] Last Admin: 07/14/20 16:08 Dose: 100 mls/hr Documented by: Daptomycin 750 mg/ Sodium (Chloride) 50 mls @ 100 mls/hr IVPB Q24H [facility]; Protocol Last Admin: 07/13/20 23:46 Dose: 100 mls/hr Documented by: Levothyroxine Sodium (Levothyroxine 100 Mcg Tab) 100 mcg PO DAILY@0630 [facility] Last Admin: 07/14/20 04:46 Dose: 100 mcg Documented by: Lisinopril (Lisinopril 20 Mg Tab) 20 mg PO BID PRN PRN Reason: Hypertension Last Admin: 07/13/20 04:47 Dose: 20 mg Documented by: Naloxone HCl (Naloxone 0.4 Mg/Ml 1 Ml Vial) 0.2 mg IV Q2M PRN PRN Reason: Opioid Reversal Naproxen (Naproxen 250 Mg Tab) 250 mg PO TID [facility] Last Admin: 07/14/20 16:07 Dose: 250 mg Documented by: Pregabalin (Pregabalin 50 Mg Cap) 100 mg PO TID [facility] Last Admin: 07/14/20 16:07 Dose: 100 mg Documented by: Past medical history: Hyperlipidemia, hypertension, osteoarthritis, hypothyroid, uses wheelchair, peripheral neuropathy, chronic venous stasis, bilateral lower extremity lymphedema, urinary stress incontinence, lymph edema, umbilical hernia, hypothyroid. 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 Alcohol rarely. Physical examination: VITAL SIGNS: 97.6, 56, 16, 131/77, 99% room air GENERAL: Laying in bed, comfortable EYES: Pupils equal. Conjunctiva normal. NECK: JVD unable to assess; masses not palpable. HEART: Distal heart sounds; some edema. LUNGS: Respiratory rate normal; distant breath sounds. ABDOMEN: Soft, nontender, liver spleen not palpable, no masses palpable. Umbilical hernia PSYCH: Alert and oriented x3; mood and affect normal. LYMPHATICS: lower extremity lymphedema MUSCULAR skeletal: lower extremity with venous iinsufficiency and lymphedema, chronic skin changes Left lower extremity: absent first and second toe, middle toe is inflamed with surrounding erythema-much improved INVESTIGATIONS, reviewed in the clinical context: July 12: WBC 4.1 hemoglobin 9.6 platelets 32 potassium 3.9 creatinine 0.77 July 11: Creatinine 0.86 WBC 4.2 white count 9.1 L 105 potassium 4.7 creatinine 0.93 Coronavirus [PCR]-not detected Chest x-ray film personally reviewed by me-no obvious infiltrate Assessment and plan: -left third toe acute osteomyelitis. Consultation to Dr. Morris from vascular Dr. Brown from ID. continue IV daptomycin.-Much improved -chronic low back pain, likely from spinal stenosis/herniated disc with radiculopathy and down and affect.-likely from L1-L2 and L3-L4 nerve distribution. -History of Pyoderma gangrenosum -Hyperlipidemia, continue Lipitor -Essential hypertension, continue Zestril and Norvasc -Primary osteoarthritis, pain medications when necessary -Hypothyroid, continue Synthroid -Chronic medical debility uses wheelchair -Idiopathic peripheral neuropathy -Chronic venous stasis -Bilateral lower extremity lymphedema -Chronic urinary stress incontinence -Chronic umbilical hernia -Morbid obesity BMI 42.6 -Acute thrombocytopenia from infection. Pending PICC line. 4 home IV antibiotics
[2020-07-14] MEDS: ATORVASTATIN 10 MG TAB PO SCH (21:47)
[2020-07-14] MEDS: DAPTOmycin 750 MG in SODIUM CHLORIDE 0.9% 50 ML IVPB SCH (23:25)
[2020-07-15] MEDS: LEVOTHYROXINE 100 MCG TAB PO SCH (04:18)
[2020-07-15 06:14] LABS: Basophils % (A) 0 %; Eosinophils # (A) 0.1 k/uL (0-0.7); Eosinophils % (A) 3 %; HCT 29.2 % (34.0-46.0); HGB 9.7 gm/dL (11.4-16.0); Lymphocytes % (A) 25 %; MCH 30.7 pg (25.0-35.0); MCHC 33.3 g/dL (31.0-37.0); MCV 92.1 fL (80.0-100.0); Mean Platelet Volume 9.8; Monocytes # (A) 0.3 k/uL (0-1.0); Monocytes % (A) 8 %; Neutrophils # (A) 2.5 k/uL (1.3-7.7); Neutrophils % (A) 61 %; Platelet Count 116 k/uL (150-450); RBC 3.17 m/uL (3.80-5.40); RDW 15.4 % (11.5-15.5)
[2020-07-15 06:33] LABS: African American GFR (CKD) 89 (>60 ml/min/1.73 sqM); Anion Gap 2 mmol/L; Blood Urea Nitrogen 17 mg/dL (7-17); Calcium 8.8 mg/dL (8.4-10.2); Carbon Dioxide 28 mmol/L (22-30); Chloride 113 mmol/L (98-107); Glucose 83 mg/dL (74-99); Non-African American GFR(CKD) 77 (>60 ml/min/1.73 sqM); Potassium 4.1 mmol/L (3.5-5.1); Sodium 143 mmol/L (137-145)
[2020-07-15] MEDS: SODIUM CHLORIDE 0.9% 1,000 ML IV SCH (08:20)
[2020-07-15] MEDS: PREGABALIN 50 MG CAP PO SCH ×3 (08:22→21:59)
[2020-07-15] MEDS: NAPROXEN 250 MG TAB PO SCH ×3 (08:23→21:59)
[2020-07-15] MEDS: ENOXAPARIN 40 MG/0.4 ML SYRINGE SQ SCH (08:24)
[2020-07-15] MEDS: HYDROmorphone 1 MG/ML 1 ML SYRINGE IVP PRN (08:54)
[2020-07-15] MEDS ORDERED: RX INFO: IV CONTRAST WAS GIVEN 1 EACH MISC MISCELLANE PRN (12:01)
[2020-07-15] MEDS ORDERED: CYANOCOBALAMIN 1,000 MCG/ML 1 ML VIAL IM ONE (13:22)
--- NOTE | 2020-07-15 13:38 | P.CNNES ---
History of Present Illness Consult date: 07/15/20 Requesting physician: Tal Magallanes Reason for Consult: persistent headache History of Present Illness: This is a 74-year-old woman with medical history of peripheral neuropathy, essential hypertension, hyperlipidemia, bilateral lower extremity lymphedema, chronic venous stasis, pyoderma gangrenosum, chronic lower back pain and hypothyroidism that was sent from wound care for left foot third toe infection. Neurology is consulted for headache. Patient stated that she's been having headache for 3-4 months and the headache is in the mid occipital region that radiates to the bilateral frontal region felt a sharp pain, pain is 10 over 10. Headache lasts for 6-7 hours. She denies any photophobia. Minimal phonophobia and minimal nausea but no vomiting. She has no history of migraines. She stated that she has a about 3 headaches out of the week. She is on [place] 7.5 and takes probably 2 tablets and a day as well as takes Tylenol extra strength 3 tablets when she has the headache. She denies any history of migraine. Currently her headache is 4 out of 10. She denies any visual disturbance associate with that, weakness, slurring the speech or difficulty swallowing. Patient stated that she drinks 412 ounces of caffeine in a week. Denies any pop use. Of note my colleague (Dr. Rodriguez) evaluated the patient for headaches in March 2020 and the details as below. On MRI the brain and it was found that the patient had meningioma and unlikely that the her manageable was the cause of the headache. She was notified to follow up with neurosurgeon but patient stated that she has not but recently was given a referral somewhere [place], [place] to see head and auto wheel alignment specialist according to her. In the hospital stay it is noted that the patient has left third toe acute osteomyelitis. Dr[facility]. Patient is on IV daptomycin. Of note the patient is nonambulatory/pivots to wheelchair. Patient on medication is Lipitor 10 mg, Lyrica 100 milligram 1 tablet 3 times a day, Synthroid, [place]. Of note the patient was evaluated by Dr. Rodriguez (Neuro-Hospitalist) for Cephalgia on 04/13/2020 and in his note he stated that the cephalgia is unclear in etiology, perhaps related to high blood pressure or related to caffeine withdrawal. She had MRI of the brain with and without contrast revealed 1.4 cm meningioma which is likely not cause of the headache and Dr. Rodriguez recommended the the patient to follow-up with neurosurgery as an outpatient. It is reported as enhancing lesion along the right cerebellar pontine angle measuring approximately 1.4 cm in size most likely meningioma Patient had MRA of the head on 04/13/2020 and it's reported as normal MRA [place]. Patient stated that the she has chronic lymphedema for years of the lower extremities and that as well as she has performed neuropathy from the feet all the way to the mid calf she had workup and was evaluated by Dr. Rodriguez and was last seen years ago she said that she had EMG with nerve conduction was told she had the peripheral neuropathy. She has not followed up with the Dr. Rodriguez because she is on disability and her primary is managing everything. Her most current vitals: Blood pressure of 126/87, heart rate of 59, temperature of 97.5 Fahrenheit oral, wrist 0 16, pulse ox of 97% at room air. White blood cell has been in the normal range in last one was done on today is 4.0. Sodium is 143 which is normal. Calcium is 8.8 which is normal. Myles virus PCR was not detected. Review of Systems Review of system: The 12 point system was reviewed and apparent positive and negative per HPI. Past Medical History Past Medical History: Hyperlipidemia, Hypertension, Osteoarthritis (OA), Skin Disorder, Thyroid Disorder Additional Past Medical History / Comment(s): Nonambulatory/pivots to wheelchair normally, low back pain, neuropathy bilateral feet, chronic venous stasis, past L heel/L posterior yost/left second toe wounds, past L 2nd toe osteomyelitis-now amptuated, L great toe amptutated; current L 3rd digit wound and pt states suspected osteomyelitis, bilateral leg cellulitis, lymphedema left leg, past R ankle fracture x3, UTIs, urinary stress incontinence, chronic anemia, umbilical hernia, hypothyroid, pyoderma gangrenosum, 1.4 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 History of Any Multi-Drug Resistant Organisms: MRSA, VRE, VRE Date of last positivie culture/infection: 05/06/19-VRE 04/07/20 mrsa MDRO Source:: Left Foot-VRE, Left Foot and Leg MRSA Past Surgical History: Section, Cholecystectomy, Orthopedic Surgery, Tubal Ligation Additional Past Surgical History / Comment(s): L leg I&D, bilateral knee arthroscopies, L great toe and 2nd toe amp d/t nonhealing wounds, PICCS, midlines, D&Cs Past Anesthesia/Blood Transfusion Reactions: Previous Problems w/ Anesthesia Additional Past Anesthesia/Blood Transfusion Reaction / Comment(s): Slow to come out of it/muscle weakness Smoking Status: Former smoker - Past Family History Father Family Medical History: Cancer, Coronary Artery Disease (CAD), Myocardial Infarction (SD), Prostate Disorder Additional Family Medical History / Comment(s): Prostate CA. Father in a MVA at the age of 80yrs. Mother Family Medical History: Cancer, CVA/TIA, Hyperlipidemia Additional Family Medical History / Comment(s): Lung CA-left lobe removed. Medications and Allergies Home Medications Medication Instructions Recorded Confirmed Type Levothyroxine Sodium [Synthroid] 100 mcg PO DAILY 08/29/13 07/09/20 History Atorvastatin Calcium [Lipitor] 10 mg PO HS 10/06/18 07/09/20 History Pregabalin [Lyrica] 100 mg PO TID 02/03/19 07/09/20 History HYDROcodone/APAP 7.5-325MG [[place] 1 tab PO Q6H PRN 03/18/19 07/09/20 History 7.5-325] lisinopriL [Zestril] 20 mg PO BID PRN 07/09/20 07/09/20 History Allergies Allergy/AdvReac Type Severity Reaction Status Date / Time Sulfa (Sulfonamide Allergy Rash/Hives Verified 07/09/20 16:59 Antibiotics) vancomycin Allergy Rash/Hives Verified 07/09/20 22:21 levofloxacin [From Levaquin] AdvReac Itching Verified 07/09/20 16:59 Physical Examination - Vital Signs Vital Signs: Vital Signs Temp Pulse Resp BP BP Pulse Ox 07/15/20 04:50 97.5 F L 59 L 16 126/87 97 07/14/20 21:00 98.0 F 69 16 117/74 94 L 07/14/20 13:00 97.6 F 56 L 16 131/77 99 Intake and Output 07/14/20 07/15/20 07/15/20 22:59 06:59 14:59 Intake Total 480 590 Balance 480 590 Intake: Oral 480 590 Other: Voiding Method Bedside Commode # Voids 3 2 GENERAL: The patient is lying in bed and is not in acute distress. CHEST: The heart rate is regular rate rhythm. No murmurs to auscultation. LUNG: Clear to auscultation bilaterally no wheezing noted throughout. Not labored breathing. ABDOMEN/GI: Bowel sounds present in all 4 quadrants. No tenderness to palpation throughout. INTEGUMENTARY: Lymphedema of lower extremities with dry skin. MUSCULOSKELETAL: Has amputation of left first and second toe. NEUROLOGICAL: Higher mental function: The patient is awake, alert, oriented to self, place and time. Patient is following commands. No aphasia and no neglect. Cranial nerves: The pupils are round, equal and reactive to light and accommodation. Visual khan are full to confrontation throughout. Extraocular movement is intact no nystagmus is noted. Facial sensation is normal to touch throughout. The facial strength is normal throughout. Hearing is normal bilaterally to hand rub. Tongue is midline and moved [id number] without any difficulty. No dysarthria is noted. Shoulder shrug is normal bilaterally. Motor: Gait is deferred. The strength is 5 over 5 over the bilateral upper and lower extremities. Normal tone and bulk. Cerebellum: Normal finger to nose bilaterally. Sensation: Sensation is decreased from mid-laura all way down to tips of toes bilaterally. . Reflexes (right/left): 2+ uppers and knees (right is 1-2+ while left is 2+). Ankles are 0-1 bilaterally. . Plantars is mute over the right. The left toes is amputated. Results - Laboratory Findings CBC and BMP: 07/15/20 05:31 07/15/20 05:31 Abnormal Lab Findings: Abnormal Labs 07/09/20 07/09/20 07/12/20 16:11 16:11 07:02 RBC 3.60 L Hgb 11.1 L Hct 33.0 L Plt Count 105 L Lymphocytes # 0.6 L Chloride 112 H BUN 20 H 07/12/20 07/15/20 07/15/20 07:02 05:31 05:31 RBC 3.14 L 3.17 L Hgb 9.6 L D 9.7 L Hct 29.1 L 29.2 L Plt Count 92 L 116 L Lymphocytes # 0.6 L Chloride 113 H BUN Assessment and Plan Assessment: * Cephalgia, unclear etiology (she has similar presentation on 04/13/2020 and had MRI Brain and MRA head. MRI Brain showed ight cerebellar pontine angle measuring approximately 1.4 cm in size most likely meningioma and seems unlikely as cause). Patient can have medication over use headache in addition because of pain medicaiton (Excessive [place] and Tylenol). * Right cerebellar pontine angle measuring approximately 1.4 cm in size most likely meningioma * Low Vitamin B12 244 (02/04/2019) * Left third toe acute osteomyelitis * Chronic lower back pain * History of pyoderma gangrenosum * Hyperlipidemia * Essential hypertension * Hypothyroidism * peripheral neuropathy * Chronic venous stasis * Chronic urinary stress incontinence * Morbid obesity * Chronic venous stasis with lymphedema Plan: CT of the head is ordered by primary team and is pending to be done. I ordered Fioricets one tablet every 4 hours as needed for the headaches. Patient was notified to follow up with the neurosurgeon regarding her meningioma. I do agree that I recommend the patient to have the serial last [place] [facility] MRI periodically. Her last one was in March 2020 and my opinion and MRI is not warranted at this time possibly get an MRI within 3-6 month now. Patient last vitamin B12 is 244 on 02/04/2019. While the methylmalonic acid 1.27 which is normal. Therefore I will give the patient on vitamin B12 1000 g IM once today then after that I thousand micrograms daily by mouth. Folate level is 9.5 which is normal and that was done 2018. TSH was 0.320 which is low but the free T4 is 1.3 which is normal and that was done in 04/30/2020 and there is no need to repeat it. Patient had a protein electrophoresis on 02/04/2019 and is reported as abnormal pattern makes it difficult to exclude a small paraprotein. I'll repeat the vitamin B12. I ordered also folate, vitamin B6 level, methylma lonic acid. I will also repeat the protein electrophoresis. I ordered immunofixation. The patient needs to follow-up with a neurologist as an outpatient (Dr. Rodriguez) within 3 weeks as well as I'll follow up with a neurosurgeon as an outpatient. If she needs a neurosurgeon to follow-up I would [place] [id number] [facility] [address], [place], [place]. [phone] If she needs a second opinoin for neurology then can follow-up with Dr. Jose Armando Carpenter ([id number] [facility] [address], [place] [address], ) The plan was discussed with the patient's nurse. Thank you for the consultation. Dr. Rodriguez will take over neurology service tomorrow in AM. Bhaskar Perkins MD Neuro-Hospitalist Time with Patient: Greater than 30
--- NOTE | 2020-07-15 13:58 | CT ---
EXAMINATION TYPE: CT brain w con DATE OF EXAM: 07/15/2020 COMPARISON: 07/24/2018 INDICATION: NORMAN, known meningioma DLP: 1088 mGycm, Automated exposure control for dose reduction was used. CONTRAST: [address] of the brain is performed utilizing 3 mm thick sections through the posterior fossa and 3 mm thick sections through the remaining calvarium. Study is performed within 24 hours of arrival to the hosp [facility]. No abnormal hyperdensity is present to suggest an acute intracranial hemorrhage. There is a 1.5 cm enhancing lesion with central calcification within the right cerebellar pontine ang le. This appears stable from comparison and can't be compatible with the patient's known meningioma. No acute infarcts are evident. Ventricles and sulci are appropriate for the patient age. Paranasal sinuses and mastoid air cells within the [id number] are clear. IMPRESSIONS: 1. Patient's known right cerebellar pontine angle meningioma appears stable. 2. No acute intracranial process.
[2020-07-15] MEDS: BUTALB/APAP/CAFF 50-325-40MG TAB PO PRN ×2 (14:37→22:29)
[2020-07-15 16:02] LABS: Protein, Total 6.1 g/dL (6.2-8.2)
[2020-07-15] MEDS: ATORVASTATIN 10 MG TAB PO SCH (21:59)
--- NOTE | 2020-07-15 22:11 | P.PN ---
Progress Note - Text Progress Note Date: 07/15/20 Chief Complaint: Left foot third toe infected History of presenting complaint: This is a pleasant 64-year-old patient of Dr. Mcfarlane. Chronic stable medical conditions include idiopathic peripheral neuropathy, morbid obesity, primary osteoarthritis, essential hypertension, hypothyroid, , urinary stress incontinence, chronic venous stasis, hyperlipidemia, bilateral lower extremity lymphedema, pyoderma gangrenosum, chronic low back pain.. uses a wheelchair to get about. Patient was sent in from the wound care center by Dr. Morris from vascular. Left foot third toe infected. Painful. No fever no chills. Appetite is fair. Started IV daptomycin Today-patient is having bothersome headache. Did not relief with Tylenol. Around the head. No fever no chills. No photophobia. Review of systems: Was done for constitutional, cardiovascular, GI, pulmonary. r elevant finding as above Active Medications Acetaminophen/Butalbital/Caffeine (Butalb/Apap/Caff 50-325-40mg Tab) 1 each PO Q4HR PRN PRN Reason: Headache Last Admin: 07/15/20 14:37 Dose: 1 each Documented by: Hydrocodone Bitart/Acetaminophen (Hydrocodone/Apap 5-325mg 1 Each Tab) 1 each PO Q8HR PRN PRN Reason: Mild to Moderate Pain Last Admin: 07/14/20 09:08 Dose: 1 each Documented by: Atorvastatin Calcium (Atorvastatin 10 Mg Tab) 10 mg PO HS [facility] Last Admin: 07/15/20 21:59 Dose: 10 mg Documented by: Cyanocobalamin (Cyanocobalamin 500 Mcg Tab) 1,000 mcg PO DAILY [facility] Enoxaparin Sodium (Enoxaparin 40 Mg/0.4 Ml Syringe) 40 mg SQ DAILY [facility] Last Admin: 07/15/20 08:24 Dose: 40 mg Documented by: Hydromorphone HCl (Hydromorphone 1 Mg/Ml 1 Ml Syringe) 1 mg IVP Q6HR PRN PRN Reason: Severe Pain Last Admin: 07/15/20 08:54 Dose: 1 mg Documented by: Sodium Chloride (Saline 0.9%) 1,000 mls @ 100 mls/hr IV .Q10H [facility] Last Admin: 07/15/20 08:20 Dose: Not Given Documented by: Daptomycin 750 mg/ Sodium (Chloride) 50 mls @ 100 mls/hr IVPB Q24H [facility]; Protocol Last Admin: 07/14/20 23:25 Dose: 100 mls/hr Documented by: Levothyroxine Sodium (Levothyroxine 100 Mcg Tab) 100 mcg PO DAILY@0630 [facility] Last Admin: 07/15/20 04:18 Dose: 100 mcg Documented by: Lisinopril (Lisinopril 20 Mg Tab) 20 mg PO BID PRN PRN Reason: Hypertension Last Admin: 07/13/20 04:47 Dose: 20 mg Documented by: Miscellaneous Information (Rx Info: Iv Contrast Was Given 1 Each Misc) 1 each MISCELLANE DAILY PRN PRN Reason: Per Protocol Stop: 07/17/20 12:01 Naloxone HCl (Naloxone 0.4 Mg/Ml 1 Ml Vial) 0.2 mg IV Q2M PRN PRN Reason: Opioid Reversal Naproxen (Naproxen 250 Mg Tab) 250 mg PO TID [facility] Last Admin: 07/15/20 21:59 Dose: 250 mg Documented by: Pregabalin (Pregabalin 50 Mg Cap) 100 mg PO TID [facility] Last Admin: 07/15/20 21:59 Dose: 100 mg Documented by: Past medical history: Hyperlipidemia, hypertension, osteoarthritis, hypothyroid, uses wheelchair, peripheral neuropathy, chronic venous stasis, bilateral lower extremity lymphedema, urinary stress incontinence, lymph edema, umbilical hernia, hypothyroid. 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 Alcohol rarely. Physical examination: VITAL SIGNS: 98.4, 64, 18, 135/67, 98% room air GENERAL: Laying in bed, comfortable EYES: Pupils equal. Conjunctiva normal. NECK: JVD unable to assess; masses not palpable. HEART: Distal heart sounds; some edema. LUNGS: Respiratory rate normal; distant breath sounds. ABDOMEN: Soft, nontender, liver spleen not palpable, no masses palpable. Umbilical hernia PSYCH: Alert and oriented x3; mood and affect normal. LYMPHATICS: lower extremity lymphedema MUSCULAR skeletal: lower extremity with venous iinsufficiency and lymphedema, chronic skin changes Left lower extremity: absent first and second toe, middle toe is inflamed with surrounding erythema-much improved INVESTIGATIONS, reviewed in the clinical context: July 15: WBC 4 hemoglobin 9.7 potassium 4.1 creatinine 0.81 Computed tomography scan of the brain [July 15]-non-and right cerebellar pontine angle meningioma appears stable.Nil acute July 12: WBC 4.1 hemoglobin 9.6 platelets 32 potassium 3.9 creatinine 0.77 July 11: Creatinine 0.86 WBC 4.2 white count 9.1 L 105 potassium 4.7 creatinine 0.93 Coronavirus [PCR]-not detected Chest x-ray film personally reviewed by me-no obvious infiltrate Assessment and plan: -left third toe acute osteomyelitis. Consultation to Dr. Morris from vascular Dr. Brown from ID. continue IV daptomycin.-Much improved -chronic low back pain, likely from spinal stenosis/herniated disc with radiculopathy and down and affect.-likely from L1-L2 and L3-L4 nerve distribution. -History of Pyoderma gangrenosum -Hyperlipidemia, continue Lipitor -Essential hypertension, continue Zestril and Norvasc -Primary osteoarthritis, pain medications when necessary -Hypothyroid, continue Synthroid -Chronic medical debility uses wheelchair -Idiopathic peripheral neuropathy -Chronic venous stasis -Bilateral lower extremity lymphedema -Chronic urinary stress incontinence -Chronic umbilical hernia -Morbid obesity BMI 42.6 -Acute thrombocytopenia from infection.-Improving -Possibly toxic cephalgia/acute. We will get a computed tomography scan of the brain. With contrast. Consult neurology. Discussed with the patient. [New diagnosis today] Pending PICC line. Discussed with patient
--- NOTE | 2020-07-15 23:50 | PN ---
PROGRESS NOTE DATE OF SERVICE: 07/15/2020 REASON FOR FOLLOWUP: Left third toe osteomyelitis. INTERVAL HISTORY: Patient is currently afebrile. The patient is breathing comfortably. Denies having any chest pain. No shortness of breath or cough. No nausea, vomiting, or abdominal pain on any worsening pain to the left big toe. PHYSICAL EXAMINATION: Blood pressure 132/72 with a pulse of 73, temperature of 98.1. She is 94% on room air. General description: The patient is an elderly female lying in bed in no distress. Respiratory system: Unlabored breathing, clear to auscultation anteriorly. Heart S1, S2. Regular rate and rhythm. ABDOMEN: Soft, no tenderness. Left third toe swelling and no significant redness or drainage. DIAGNOSTIC IMPRESSION AND PLAN: Patient with left third toe osteomyelitis. Previous culture positive for MRSA. Patient in the hospital with initial intention for amputation. However, in view of clinical improvement with the daptomycin, amputation has been put on hold. Patient will get a PICC line tomorrow and continue with daptomycin for a total of 6 weeks with weekly monitoring of CBC, BMP and sedimentation rate and close outpatient followup. MMODL / IJN: [id number] /
[2020-07-16] MEDS: DAPTOmycin 750 MG in SODIUM CHLORIDE 0.9% 50 ML IVPB SCH ×2 (00:10→23:33)
[2020-07-16] MEDS: SODIUM CHLORIDE 0.9% 1,000 ML IV SCH ×4 (00:20→23:38)
[2020-07-16] MEDS: HYDROcodone/APAP 5-325MG 1 EACH TAB PO PRN (02:10)
[2020-07-16 05:25] LABS: Basophils % (A) 0 %; Eosinophils # (A) 0.2 k/uL (0-0.7); Eosinophils % (A) 4 %; HCT 28.4 % (34.0-46.0); HGB 9.2 gm/dL (11.4-16.0); Lymphocytes # (A) 0.9 k/uL (1.0-4.8); Lymphocytes % (A) 22 %; MCH 29.7 pg (25.0-35.0); MCHC 32.4 g/dL (31.0-37.0); MCV 91.4 fL (80.0-100.0); Mean Platelet Volume 9.8; Monocytes # (A) 0.3 k/uL (0-1.0); Monocytes % (A) 8 %; Neutrophils # (A) 2.7 k/uL (1.3-7.7); Neutrophils % (A) 64 %; Platelet Count 125 k/uL (150-450); RBC 3.11 m/uL (3.80-5.40); RDW 15.5 % (11.5-15.5); WBC 4.2 k/uL (3.8-10.6)
[2020-07-16 05:44] LABS: ALT 16 U/L (4-34); AST 19 U/L (14-36); African American GFR (CKD) 89 (>60 ml/min/1.73 sqM); Albumin 2.8 g/dL (3.5-5.0); Albumin/Globulin Ratio 1.2; Alkaline Phosphatase 134 U/L (38-126); Anion Gap 1 mmol/L; Blood Urea Nitrogen 18 mg/dL (7-17); Calcium 8.9 mg/dL (8.4-10.2); Carbon Dioxide 29 mmol/L (22-30); Chloride 109 mmol/L (98-107); Globulin 2.4 g/dL; Glucose 83 mg/dL (74-99); Non-African American GFR(CKD) 77 (>60 ml/min/1.73 sqM); Potassium 4.2 mmol/L (3.5-5.1); Sodium 139 mmol/L (137-145); Total Bilirubin 0.4 mg/dL (0.2-1.3); Total Protein 5.2 g/dL (6.3-8.2)
[2020-07-16 05:51] LABS: Partial Thromboplastin Time 25.2 sec (22.0-30.0); Prothrombin Time 10.4 sec (9.0-12.0)
[2020-07-16 05:53] LABS: C Reactive Protein <5.0 mg/L (<10.0)
[2020-07-16] MEDS: LEVOTHYROXINE 100 MCG TAB PO SCH (06:13)
[2020-07-16 06:49] LABS: Erythrocyte Sedimentation Rate 35 mm/hr (0-20)
[2020-07-16] MEDS: ENOXAPARIN 40 MG/0.4 ML SYRINGE SQ SCH (08:25)
[2020-07-16] MEDS: CYANOCOBALAMIN 500 MCG TAB PO SCH (08:27)
[2020-07-16] MEDS: NAPROXEN 250 MG TAB PO SCH ×3 (08:27→21:38)
[2020-07-16] MEDS: PREGABALIN 50 MG CAP PO SCH ×3 (08:27→21:38)
[2020-07-16] MEDS: BUTALB/APAP/CAFF 50-325-40MG TAB PO PRN ×2 (09:04→23:26)
[2020-07-16] MEDS ORDERED: LIDOCAINE 1% INJ 10MG/ML (20 ML MDV) SQ ONE (11:08)
--- NOTE | 2020-07-16 14:02 | PN ---
PROGRESS NOTE DATE OF SERVICE: 07/16/2020 REASON FOR FOLLOWUP: Left third toe osteomyelitis. INTERVAL HISTORY: The patient is currently afebrile. The patient is feeling better. Breathing comfortably. No chest pain or cough. No abdominal pain. Did have some diarrhea. No pain to the left third toe. PHYSICAL EXAMINATION: Blood pressure 115/72 with a pulse of 56, temperature 98. She is 96% on room air. General description is an elderly female up in the chair in no distress. RESPIRATORY SYSTEM: Unlabored breathing. Left foot is currently dressed. No obvious drainage on the dressing. LABS: Hemoglobin 9.2, white count 4.2, BUN of 18, creatinine 0.81. DIAGNOSTIC IMPRESSION AND PLAN: Patient with left third toe osteomyelitis. Previous culture positive for MRSA. Patient had overall improvement on daptomycin, continue for total of 6 weeks with close outpatient followup. Continue supportive care. MMODL / IJN: [id number] /
[2020-07-16 14:08] LABS: Hemoglobin A1C 5.3 % (4.0-6.0)
--- NOTE | 2020-07-16 15:57 | IR ---
EXAMINATION TYPE: IR cvc insert >=5 years DATE OF EXAM: 07/16/2020 COMPARISON: NONE CLINICAL HISTORY: Infection Needs long-term intravenous access for antibiotics. PROCEDURE: Hand hygiene obtained with soap and water and alcohol-based hand rub. After informed consent, the skin overlying the cephalic vein was localized with ultrasound and noted to be compressible and patent. An ultrasound image was obtained and submitted on the patient's chart . The overlying skin was prepped and draped and Lidocaine was used for local anesthesia. A skin brigitte k was made with a scalpel. Access was gained to the vein under ultrasound guidance with a 21 gauge n eedle and a 0.018 inch wire was advanced. Access site was dilated with Peel-Away sheath and catheter tailored to the appropriate length and advanced such that the distal tip is at the cavoatrial juncti on. Spot image was obtained verifying placement. Catheter was fixed to the skin and a sterile dress ing was placed following hemostasis. Catheter was aspirated and flushed with saline. Patient was di scharged in stable condition without complication.Maximal barrier technique is utilized. Ultrasound image is documented on the chart. Ultrasound used with sterile technique. Fluoro time and fluoroscopic images submitted to document procedure: 1.1 minutes fluoroscopy time, 19 6 intraoperative images document the procedure IMPRESSION: STATUS POST ULTRASOUND AND FLUOROSCOPIC GUIDED PICC LINE PLACEMENT, READY FOR USE. THIS PROCEDURE WAS PERFORMED BY THE UNDERSIGNED.
[2020-07-16] MEDS: ATORVASTATIN 10 MG TAB PO SCH (21:38)
--- NOTE | 2020-07-16 22:39 | P.PN ---
Progress Note - Text Progress Note Date: 07/16/20 Chief Complaint: Left foot third toe infected History of presenting complaint: This is a pleasant 64-year-old patient of Dr. Mcfarlane. Chronic stable medical conditions include idiopathic peripheral neuropathy, morbid obesity, primary osteoarthritis, essential hypertension, hypothyroid, , urinary stress incontinence, chronic venous stasis, hyperlipidemia, bilateral lower extremity lymphedema, pyoderma gangrenosum, chronic low back pain.. uses a wheelchair to get about. Patient was sent in from the wound care center by Dr. Morris from vascular. Left foot third toe infected. Painful. No fever no chills. Appetite is fair. Started IV daptomycin Today-laying in bed. Comfortable. manager process improvement Kamaljit informed me that patient IV antibiotics would not be covered. So discharge canceled. Review of systems: Was done for constitutional, cardiovascular, GI, pulmonary. relevant finding as above Active Medications Acetaminophen/Butalbital/Caffeine (Butalb/Apap/Caff 50-325-40mg Tab) 1 each PO Q4HR PRN PRN Reason: Headache Last Admin: 07/16/20 09:04 Dose: 1 each Documented by: Hydrocodone Bitart/Acetaminophen (Hydrocodone/Apap 5-325mg 1 Each Tab) 1 each PO Q8HR PRN PRN Reason: Mild to Moderate Pain Last Admin: 07/16/20 02:10 Dose: 1 each Documented by: Atorvastatin Calcium (Atorvastatin 10 Mg Tab) 10 mg PO HS [facility] Last Admin: 07/16/20 21:38 Dose: 10 mg Documented by: Cyanocobalamin (Cyanocobalamin 500 Mcg Tab) 1,000 mcg PO DAILY [facility] Last Admin: 07/16/20 08:27 Dose: 1,000 mcg Documented by: Enoxaparin Sodium (Enoxaparin 40 Mg/0.4 Ml Syringe) 40 mg SQ DAILY [facility] Last Admin: 07/16/20 08:25 Dose: 40 mg Documented by: Hydromorphone HCl (Hydromorphone 1 Mg/Ml 1 Ml Syringe) 1 mg IVP Q6HR PRN PRN Reason: Severe Pain Last Admin: 07/15/20 08:54 Dose: 1 mg Documented by: Sodium Chloride (Saline 0.9%) 1,000 mls @ 100 mls/hr IV .Q10H [facility] Last Admin: 07/16/20 15:57 Dose: Not Given Documented by: Daptomycin 750 mg/ Sodium (Chloride) 50 mls @ 100 mls/hr IVPB Q24H [facility]; Protocol Last Admin: 07/16/20 00:10 Dose: 100 mls/hr Documented by: Levothyroxine Sodium (Levothyroxine 100 Mcg Tab) 100 mcg PO DAILY@0630 [facility] Last Admin: 07/16/20 06:13 Dose: 100 mcg Documented by: Lisinopril (Lisinopril 20 Mg Tab) 20 mg PO BID PRN PRN Reason: Hypertension Last Admin: 07/13/20 04:47 Dose: 20 mg Documented by: Miscellaneous Information (Rx Info: Iv Contrast Was Given 1 Each Misc) 1 each MISCELLANE DAILY PRN PRN Reason: Per Protocol Stop: 07/17/20 12:01 Naloxone HCl (Naloxone 0.4 Mg/Ml 1 Ml Vial) 0.2 mg IV Q2M PRN PRN Reason: Opioid Reversal Naproxen (Naproxen 250 Mg Tab) 250 mg PO TID [facility] Last Admin: 07/16/20 21:38 Dose: 250 mg Documented by: Pregabalin (Pregabalin 50 Mg Cap) 100 mg PO TID [facility] Last Admin: 07/16/20 21:38 Dose: 100 mg Documented by: Sodium Chloride (Sodium Chloride 0.9% Flush 10 Ml Syringe) 10 ml IV Q4HR PRN PRN Reason: PICC Line Sodium Chloride (Sodium Chloride 0.9% Flush 10 Ml Syringe) 10 ml IV WEEKLY [facility] Sodium Chloride (Sodium Chloride 0.9% Flush 10 Ml Syringe) 20 ml IV Q4HR PRN PRN Reason: PICC Line Past medical history: Hyperlipidemia, hypertension, osteoarthritis, hypothyroid, uses wheelchair, peripheral neuropathy, chronic venous stasis, bilateral lower extremity lymphedema, urinary stress incontinence, lymph edema, umbilical hernia, hypothyroid. 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 Alcohol rarely. Physical examination: VITAL SIGNS: 87.8, 72, 18, 103 with 61, and 6% room air GENERAL: Laying in bed, comfortable EYES: Pupils equal. Conjunctiva normal. NECK: JVD unable to assess; masses not palpable. HEART: Distal heart sounds; some edema. LUNGS: Respiratory rate normal; distant breath sounds. ABDOMEN: Soft, nontender, liver spleen not palpable, no masses palpable. Umbilical hernia PSYCH: Alert and oriented x3; mood and affect normal. LYMPHATICS: lower extremity lymphedema MUSCULAR skeletal: lower extremity with venous iinsufficiency and lymphedema, chronic skin changes Left lower extremity: absent first and second toe, middle toe is inflamed with surrounding erythema-much improved INVESTIGATIONS, reviewed in the clinical context: July 16: WBC 14.2 hemoglobin 9.8 potassium 3.8 creatinine 0.60 July 15: WBC 4 hemoglobin 9.7 potassium 4.1 creatinine 0.81 Computed tomography scan of the brain [July 15]-non-and right cerebellar pontine angle meningioma appears stable.Nil acute July 12: WBC 4.1 hemoglobin 9.6 platelets 32 potassium 3.9 creatinine 0.77 July 11: Creatinine 0.86 WBC 4.2 white count 9.1 L 105 potassium 4.7 creatinine 0.93 Coronavirus [PCR]-not detected Chest x-ray film personally reviewed by me-no obvious infiltrate Assessment and plan: -left third toe acute osteomyelitis. Consultation to Dr. Morris from vascular Dr. Brown from ID. continue IV daptomycin.-Much improved -chronic low back pain, likely from spinal stenosis/herniated disc with radiculopathy and down and affect.-likely from L1-L2 and L3-L4 nerve distribution. -History of Pyoderma gangrenosum -Hyperlipidemia, continue Lipitor -Essential hypertension, continue Zestril and Norvasc -Primary osteoarthritis, pain medications when necessary -Hypothyroid, continue Synthroid -Chronic medical debility uses wheelchair -Idiopathic peripheral neuropathy -Chronic venous stasis -Bilateral lower extremity lymphedema -Chronic urinary stress incontinence -Chronic umbilical hernia -Morbid obesity BMI 42.6 -Acute thrombocytopenia from infection.-Improving -Possibly toxic cephalgia/acute. Computed tomography scan of the brain negative improved Patient IV antibiotic is not approved by the insurance company. Spoke to Dr. Brown from ID. He was discussed with Dr. Morris from vascular. Await further plans
[2020-07-17] MEDS: LEVOTHYROXINE 100 MCG TAB PO SCH (06:09)
[2020-07-17] MEDS: CYANOCOBALAMIN 500 MCG TAB PO SCH (09:07)
[2020-07-17] MEDS: PREGABALIN 50 MG CAP PO SCH ×3 (09:07→21:25)
[2020-07-17] MEDS: NAPROXEN 250 MG TAB PO SCH ×3 (09:07→21:25)
[2020-07-17] MEDS: ENOXAPARIN 40 MG/0.4 ML SYRINGE SQ SCH (09:08)
[2020-07-17] MEDS: BUTALB/APAP/CAFF 50-325-40MG TAB PO PRN ×2 (13:32→19:44)
--- NOTE | 2020-07-17 13:36 | P.PN ---
Subjective Progress Note Date: 07/16/20 Patient was seen for a follow-up. Patient has been seen by Dr. Bhaskar Perkins in consultation. Please refer to his note for details. Patient came to the hospital for osteomyelitis of the third toe of the left foot. She has been on antibiotics. Patient was supposed to be discharged to the rehab facility, but the facility did not approve the antibiotic, therefore she is going to stay in the hospital and will undergo amputation of the third toe, as per patient. Neurology was consulted previously for neuropathy. Patient also has a meningioma, for which she needs to be seen by a neurosurgeon. Patient also has been having headaches. Fioricet was started. Patient states that she gets headache 3 times a week. She had a headache this morning, for which she took Fioricet. It came down from 9 to 3. Objective - Vital Signs Vital signs: Vital Signs Temp 98 F 07/16/20 05:00 Pulse 56 L 07/16/20 05:00 Resp 16 07/16/20 05:00 BP 115/72 07/16/20 05:00 Pulse Ox 96 07/16/20 05:00 Intake & Output 07/15/20 07/16/20 07/16/20 18:59 06:59 18:59 Intake Total 240 590 Output Total 400 300 Balance -160 590 -300 Intake: Oral 240 590 Output: Urine 400 300 Other: Voiding Method Bedside Commode Bedside Commode # Voids 2 3 4 - Exam Patient's mental status, speech and language functions are normal. Cranial nerves are normal. Muscles normal. - Labs CBC & Chem 7: 07/16/20 05:09 07/16/20 05:09 Labs: Abnormal Lab Results - Last 24 Hours (Table) 07/16/20 07/16/20 Range/Units 05:09 05:09 RBC 3.11 L (3.80-5.40) m/uL Hgb 9.2 L (11.4-16.0) gm/dL Hct 28.4 L (34.0-46.0) % Plt Count 125 L (150-450) k/uL Lymphocytes # 0.9 L (1.0-4.8) k/uL ESR 35 H (0-20) mm/hr Chloride 109 H (98-107) mmol/L BUN 18 H (7-17) mg/dL Alkaline Phosphatase 134 H (38-126) U/L Total Protein 5.2 L (6.3-8.2) g/dL Albumin 2.8 L (3.5-5.0) g/dL Microbiology - Last 24 Hours (Table) 07/10/20 10:51 Blood Culture - Final Blood No Growth after 144 hours 07/09/20 16:11 Blood Culture - Final Blood No Growth after 144 hours Assessment and Plan Assessment: * Migraine headaches * Cerebral meningioma 1.4 cm, along the right cerebellopontine angle. * Vitamin B12 deficiency, on replacement * Left third toe osteomyelitis * Chronic low back pain * Obesity * Hypertension * Hyperlipidemia * Hypothyroidism * Peripheral neuropathy * Lymphedema. Plan: * Continue Fioricet as needed for headaches. * Repeat vitamin B12 is very low 184. We will start IM replacement. * Vitamin B6 level is also borderline 5 (5-50), will start replacement. * Patient to follow up with neurologist and neurosurgeon for management of chronic migraines/peripheral neuropathy and cerebral meningioma respectively * Hemoglobin A1c 5.3 on 07/16/2020. * Immunoelectrophoresis was negative for any monoclonal paraprotein. TELMA negative, rheumatoid factor elevated 74/15.
[2020-07-17] MEDS: SODIUM CHLORIDE 0.9% 1,000 ML IV SCH ×2 (14:21→19:31)
[2020-07-17 14:30] VITALS: BMI 42.5
[2020-07-17] MEDS: CYANOCOBALAMIN 1,000 MCG/ML 1 ML VIAL IM SCH (15:12)
[2020-07-17] MEDS: PYRIDOXINE 50 MG TAB PO SCH (15:12)
--- NOTE | 2020-07-17 17:10 | P.PN ---
Subjective Progress Note Date: 07/17/20 07/17/2020: Patient still getting headaches frequently. Fioricet brings it down from 10 down to 4. After short while, the headache comes back. Patient probably needs medication for migraine prophylaxis. It takes 2-3 hours for Fioricet to kick in. She does not drink excessive coffee or pop. 07/16/2020: Patient was seen for a follow-up. Patient has been seen by Dr. Bhaskar Perkins in consultation. Please refer to his note for details. Patient came to the hospital for osteomyelitis of the third toe of the left foot. She has been on antibiotics. Patient was supposed to be discharged to the rehab facility, but the facility did not approve the antibiotic, therefore she is going to stay in the hospital and will undergo amputation of the third toe, as per patient. Neurology was consulted previously for neuropathy. Patient also has a meningioma, for which she needs to be seen by a neurosurgeon. Patient also has been having headaches. Fioricet was started. Patient states that she gets headache 3 times a week. She had a headache this morning, for which she took Fioricet. It came down from 9 to 3. Objective - Vital Signs Vital signs: Vital Signs Temp 97.5 F L 07/17/20 11:43 Pulse 64 07/17/20 11:43 Resp 17 07/17/20 11:43 BP 138/74 07/17/20 11:43 Pulse Ox 95 07/17/20 11:43 Intake & Output 07/16/20 07/17/20 07/17/20 18:59 06:59 18:59 Intake Total 1350 Output Total 300 Balance -300 1350 Weight 127.006 kg Intake: Intake, IV Titration 150 Amount DAPTOmycin 750 mg In 50 Sodium Chloride 0.9% 50 ml @ 100 mls/hr IVPB Q24H [facility] Rx#:[id number] Sodium Chloride 0.9% 1, 100 000 ml @ 100 mls/hr IV . Q10H [facility] Rx#:[id number] Oral 1200 Output: Urine 300 Other: Voiding Method Bedside Commode # Voids 4 3 # Bowel Movements 1 - Exam Patient's mental status, speech and language functions are normal. Cranial nerves are normal. Muscles normal. - Labs CBC & Chem 7: 07/16/20 05:09 07/16/20 05:09 Labs: Abnormal Lab Results - Last 24 Hours (Table) 07/15/20 Range/Units 05:31 RBC Folate 885 H (280 - 791) ng/mL Assessment and Plan Assessment: * Migraine headaches, intractable * Cerebral meningioma 1.4 cm, along the right cerebellopontine angle. * Vitamin B12 deficiency, on replacement * Left third toe osteomyelitis * Chronic low back pain * Obesity * Hypertension * Hyperlipidemia * Hypothyroidism * Peripheral neuropathy * Lymphedema. Plan: * Patient has very frequent migraine headaches. We will start Topamax for migraine prophylaxis. Patient will be started on Topamax 25 mg twice a day. Patient was recommended to stop medication if she gets any eye pain. Rare side effects of hair loss, and renal stones was informed. Continue Fioricet as needed for headaches. * Repeat vitamin B12 is very low 184. Continue B12 IM replacement. * Vitamin B6 level is also borderline 5 (5-50), will start replacement. * Patient to follow up with neurologist and neurosurgeon for management of chronic migraines/peripheral neuropathy and cerebral meningioma respectively * Hemoglobin A1c 5.3 on 07/16/2020. * Immunoelectrophoresis was negative for any monoclonal paraprotein. TELMA negative, rheumatoid factor elevated 74/15.
[2020-07-17] MEDS: TOPIRAMATE 25 MG TAB PO SCH (21:25)
[2020-07-17] MEDS: ATORVASTATIN 10 MG TAB PO SCH (21:25)
[2020-07-18] MEDS: DAPTOmycin 750 MG in SODIUM CHLORIDE 0.9% 50 ML IVPB SCH ×2 (00:02→01:51)
--- NOTE | 2020-07-18 01:36 | P.PN ---
Progress Note - Text Progress Note Date: 07/17/20 Chief Complaint: Left foot third toe infected History of presenting complaint: This is a pleasant 64-year-old patient of Dr. Mcfarlane. Chronic stable medical conditions include idiopathic peripheral neuropathy, morbid obesity, primary osteoarthritis, essential hypertension, hypothyroid, , urinary stress incontinence, chronic venous stasis, hyperlipidemia, bilateral lower extremity lymphedema, pyoderma gangrenosum, chronic low back pain.. uses a wheelchair to get about. Patient was sent in from the wound care center by Dr. Morris from vascular. Left foot third toe infected. Painful. No fever no chills. Appetite is fair. Started IV daptomycin. Patient's IV daptomycin not covered. For outpatient treatment. Today: No new issues. Oral intake fair. Pain control. Review of systems: Was done for constitutional, cardiovascular, GI, pulmonary. relevant finding as above Active Medications Acetaminophen/Butalbital/Caffeine (Butalb/Apap/Caff 50-325-40mg Tab) 1 each PO Q4HR PRN PRN Reason: Headache Last Admin: 07/17/20 19:44 Dose: 1 each Documented by: Hydrocodone Bitart/Acetaminophen (Hydrocodone/Apap 5-325mg 1 Each Tab) 1 each PO Q8HR PRN PRN Reason: Mild to Moderate Pain Last Admin: 07/16/20 02:10 Dose: 1 each Documented by: Atorvastatin Calcium (Atorvastatin 10 Mg Tab) 10 mg PO HS [facility] Last Admin: 07/17/20 21:25 Dose: 10 mg Documented by: Cyanocobalamin (Cyanocobalamin 1,000 Mcg/Ml 1 Ml Vial) 1,000 mcg IM DAILY [facility] Last Admin: 07/17/20 15:12 Dose: 1,000 mcg Documented by: Enoxaparin Sodium (Enoxaparin 40 Mg/0.4 Ml Syringe) 40 mg SQ DAILY [facility] Last Admin: 07/17/20 09:08 Dose: Not Given Documented by: Hydromorphone HCl (Hydromorphone 1 Mg/Ml 1 Ml Syringe) 1 mg IVP Q6HR PRN PRN Reason: Severe Pain Last Admin: 07/15/20 08:54 Dose: 1 mg Documented by: Sodium Chloride (Saline 0.9%) 1,000 mls @ 100 mls/hr IV .Q10H [facility] Last Admin: 07/17/20 19:31 Dose: Not Given Documented by: Daptomycin 750 mg/ Sodium (Chloride) 50 mls @ 100 mls/hr IVPB Q24H [facility]; Protocol Last Admin: 07/16/20 23:33 Dose: 100 mls/hr Documented by: Levothyroxine Sodium (Levothyroxine 100 Mcg Tab) 100 mcg PO DAILY@0630 [facility] Last Admin: 07/17/20 06:09 Dose: 100 mcg Documented by: Lisinopril (Lisinopril 20 Mg Tab) 20 mg PO BID PRN PRN Reason: Hypertension Last Admin: 07/13/20 04:47 Dose: 20 mg Documented by: Naloxone HCl (Naloxone 0.4 Mg/Ml 1 Ml Vial) 0.2 mg IV Q2M PRN PRN Reason: Opioid Reversal Naproxen (Naproxen 250 Mg Tab) 250 mg PO TID [facility] Last Admin: 07/17/20 21:25 Dose: 250 mg Documented by: Pregabalin (Pregabalin 50 Mg Cap) 100 mg PO TID [facility] Last Admin: 07/17/20 21:25 Dose: 100 mg Documented by: Pyridoxine HCl (Pyridoxine 50 Mg Tab) 50 mg PO DAILY [facility] Last Admin: 07/17/20 15:12 Dose: 50 mg Documented by: Sodium Chloride (Sodium Chloride 0.9% Flush 10 Ml Syringe) 10 ml IV Q4HR PRN PRN Reason: PICC Line Sodium Chloride (Sodium Chloride 0.9% Flush 10 Ml Syringe) 10 ml IV WEEKLY [facility] Sodium Chloride (Sodium Chloride 0.9% Flush 10 Ml Syringe) 20 ml IV Q4HR PRN PRN Reason: PICC Line Topiramate (Topiramate 25 Mg Tab) 25 mg PO BID [facility] Last Admin: 07/17/20 21:25 Dose: 25 mg Documented by: Past medical history: Hyperlipidemia, hypertension, osteoarthritis, hypothyroid, uses wheelchair, peripheral neuropathy, chronic venous stasis, bilateral lower extremity lymphedema, urinary stress incontinence, lymph edema, umbilical hernia, hypothyroid. 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 Alcohol rarely. Physical examination: VITAL SIGNS: 97.5, 64, 17, 138.74, 95% room air GENERAL: Laying in bed, comfortable EYES: Pupils equal. Conjunctiva normal. NECK: JVD unable to assess; masses not palpable. HEART: Distal heart sounds; some edema. LUNGS: Respiratory rate normal; distant breath sounds. ABDOMEN: Soft, nontender, liver spleen not palpable, no masses palpable. Umbilical hernia PSYCH: Alert and oriented x3; mood and affect normal. LYMPHATICS: lower extremity lymphedema MUSCULAR skeletal: lower extremity with venous iinsufficiency and lymphedema, chronic skin changes Left lower extremity: absent first and second toe, middle toe is inflamed with surrounding erythema-much improved INVESTIGATIONS, reviewed in the clinical context: July 16: WBC 14.2 hemoglobin 9.8 potassium 3.8 creatinine 0.60 July 15: WBC 4 hemoglobin 9.7 potassium 4.1 creatinine 0.81 Computed tomography scan of the brain [July 15]-non-and right cerebellar pontine angle meningioma appears stable.Nil acute July 12: WBC 4.1 hemoglobin 9.6 platelets 32 potassium 3.9 creatinine 0.77 July 11: Creatinine 0.86 WBC 4.2 white count 9.1 L 105 potassium 4.7 creatinine 0.93 Coronavirus [PCR]-not detected Chest x-ray film personally reviewed by me-no obvious infiltrate Assessment and plan: -left third toe acute osteomyelitis. Consultation to Dr. Morris from vascular Dr. Brown from ID. continue IV daptomycin.-Much improved. Possible amputation -chronic low back pain, likely from spinal stenosis/herniated disc with radiculopathy and down and affect.-likely from L1-L2 and L3-L4 nerve distribution. -History of Pyoderma gangrenosum -Hyperlipidemia, continue Lipitor -Essential hypertension, continue Zestril and Norvasc -Primary osteoarthritis, pain medications when necessary -Hypothyroid, continue Synthroid -Chronic medical debility uses wheelchair -Idiopathic peripheral neuropathy -Chronic venous stasis -Bilateral lower extremity lymphedema -Chronic urinary stress incontinence -Chronic umbilical hernia -Morbid obesity BMI 42.6 -Acute thrombocytopenia from infection.-Improving -Possibly toxic cephalgia/acute. Computed tomography scan of the brain negative improved Discussed with Dr. Morris from vascular. Possible amputation. Discussed the patient.
--- NOTE | 2020-07-18 01:51 | PN ---
PROGRESS NOTE DATE OF SERVICE: 07/17/2020 REASON FOR FOLLOWUP: Left third toe osteomyelitis. INTERVAL HISTORY: Patient is currently afebrile. The patient is breathing comfortably. Denies any chest pain, shortness of breath or cough. No nausea. No vomiting. No abdominal pain. No pain to third toe area. PHYSICAL EXAMINATION: Blood pressure 134/72 with a pulse of 77, temperature 97.7. She is 92% on room air. General description: The patient is an elderly female lying in bed in no distress. Respiratory system: Unlabored breathing, clear to auscultation anteriorly. Heart S1, S2. Regular rate and rhythm. Abdomen: Soft, no tenderness. LABS: No new labs have been obtained today. DIAGNOSTIC IMPRESSION AND PLAN: Patient with left third toe osteomyelitis in this patient admitted to the hospital for amputation. Patient subsequently did have improvement and plan was to save the toe with IV antibiotic daptomycin. However, the patient did not have coverage for the outpatient IV antibiotic and now wants the amputation. She was offered suppressive antibiotic therapy in the form on doxycycline. However, the patient wants to be done with it. Continue supportive care. MMODL / IJN: [id number] /
[2020-07-18] MEDS: SODIUM CHLORIDE 0.9% 1,000 ML IV SCH (03:37)
[2020-07-18 04:32] VITALS: RESP 16
[2020-07-18] MEDS: LEVOTHYROXINE 100 MCG TAB PO SCH (05:28)
[2020-07-18] MEDS: CYANOCOBALAMIN 1,000 MCG/ML 1 ML VIAL IM SCH (08:22)
[2020-07-18] MEDS: PREGABALIN 50 MG CAP PO SCH (08:23)
[2020-07-18] MEDS: TOPIRAMATE 25 MG TAB PO SCH (08:23)
[2020-07-18] MEDS: PYRIDOXINE 50 MG TAB PO SCH (08:23)
[2020-07-18] MEDS: ENOXAPARIN 40 MG/0.4 ML SYRINGE SQ SCH (08:32)
[2020-07-18] MEDS: NAPROXEN 250 MG TAB PO SCH (08:32)
[2020-07-18 11:43] VITALS: BP 156/88; PULSE 62; TEMP 97.8
[2020-07-18] MEDS: lisinopriL 20 MG TAB PO PRN (11:52)
--- NOTE | 2020-07-18 14:35 | P.PN ---
Subjective Progress Note Date: 07/18/20 07/18/2020: Patient was seen earlier during the day and 9:30 AM. Patient just woke up from sleep. States has no headache. Patient is going to undergo left third toe amputation at 2 PM. 07/17/2020: Patient still getting headaches frequently. Fioricet brings it down from 10 down to 4. After short while, the headache comes back. Patient probably needs medication for migraine prophylaxis. It takes 2-3 hours for Fioricet to kick in. She does not drink excessive coffee or pop. 07/16/2020: Patient was seen for a follow-up. Patient has been seen by Dr. Bhaskar Perkins in consultation. Please refer to his note for details. Patient came to the hospital for osteomyelitis of the third toe of the left foot. She has been on antibiotics. Patient was supposed to be discharged to the rehab facility, but the facility did not approve the antibiotic, therefore she is going to stay in the hospital and will undergo amputation of the third toe, as per patient. Neurology was consulted previously for neuropathy. Patient also has a meningioma, for which she needs to be seen by a neurosurgeon. Patient also has been having headaches. Fioricet was started. Patient states that she gets headache 3 times a week. She had a headache this morning, for which she took Fioricet. It came down from 9 to 3. Objective - Vital Signs Vital signs: Vital Signs Temp 97.8 F 07/18/20 11:27 Pulse 62 07/18/20 11:27 Resp 16 07/18/20 11:27 BP 156/88 07/18/20 11:27 Pulse Ox 94 L 07/18/20 11:27 Intake & Output 07/17/20 07/18/20 07/18/20 18:59 06:59 18:59 Intake Total 50 550 Balance 50 550 Weight 127.006 kg Intake: Intake, IV Titration 50 50 Amount DAPTOmycin 750 mg In 50 50 Sodium Chloride 0.9% 50 ml @ 100 mls/hr IVPB Q24H [facility] Rx#:[id number] Oral 500 Other: Voiding Method Bedside Commode Bedside Commode # Voids 4 2 - Exam Patient's mental status, speech and language functions are normal. Deferred - Labs CBC & Chem 7: 07/16/20 05:09 07/16/20 05:09 Assessment and Plan Assessment: * Migraine headaches, intractable * Cerebral meningioma 1.4 cm, along the right cerebellopontine angle. * Vitamin B12 deficiency, on replacement * Vitamin B6 deficiency * Left third toe osteomyelitis * Chronic low back pain * Obesity * Hypertension * Hyperlipidemia * Hypothyroidism * Peripheral neuropathy * Lymphedema. Plan: * Continue Topamax 25 mg twice a day for migraine prophylaxis. Patient was recommended to stop medication if she gets any eye pain. Rare side effects of hair loss, and renal stones was informed. Continue Fioricet as needed for headaches. * Repeat vitamin B12 is very low 184. Continue B12 IM replacement. * Vitamin B6 level is also borderline 5 (5-50), will start replacement. * Patient to follow up with neurologist and neurosurgeon for management of chronic migraines/peripheral neuropathy and cerebral meningioma respectively * Hemoglobin A1c 5.3 on 07/16/2020. * Immunoelectrophoresis was negative for any monoclonal paraprotein. TELMA negative, rheumatoid factor elevated 74/15. * Patient to undergo left third toe amputation today at 2 PM.
--- NOTE | 2020-07-18 15:48 | PN ---
PROGRESS NOTE DATE OF SERVICE: 07/18/2020 REASON FOR FOLLOWUP: Left third toe osteomyelitis. INTERVAL HISTORY: The patient is currently afebrile. The patient is breathing comfortably. The patient denies having any chest pain, shortness of breath or cough. No abdominal pain or pain to the left third toe. PHYSICAL EXAMINATION: Blood pressure 156/88 with a pulse of 62, temperature 97.8. She is 94% on room air. General description is an elderly female lying in bed in no distress. RESPIRATORY SYSTEM: Unlabored breathing. Clear to auscultation anteriorly. HEART: S1, S2. Regular rate and rhythm. ABDOMEN: Soft. No tenderness. Left toe swelling and redness have improved. No drainage. LABS: No new labs have been obtained today. DIAGNOSTIC IMPRESSION AND PLAN: Patient with left third toe osteomyelitis. Previous culture positive for MRSA and this patient has been treated with daptomycin. She was on daptomycin IV daptomycin in the outpatient setting. Possible surgery next week per discussion with the vascular surgeon. She will go home on oral doxycycline to bridge her to the surgical procedure. Continue with supportive care. MMODL / IJN: [id number] /
[2020-07-18 16:20] LABS: Albumin 3.32 g/dL (3.80-4.90); Gamma Globulin 0.77 g/dL (0.70-1.50)
[2020-07-18] MEDS ORDERED: DOXYCYCLINE 100 MG CAP PO SCH (21:00)
--- NOTE | 2020-07-19 12:11 | P.DS ---
Providers Date of admission: 07/11/20 08:13 Expected date of discharge: 07/18/20 Attending physician: Tal Magallanes Consults: 07/09/20 17:24 Consult Physician Urgent Consulting Provider: Luis E Danielson Consult Reason/Comments: possible toe amputation Do you want consulting provider notified?: Yes Consult Physician Urgent Consulting Provider: Thea Hernandez Consult Reason/Comments: possible toe amputation, request of Dr Danielson Do you want consulting provider notified?: Yes 07/15/20 12:00 Consult Physician Routine Consulting Provider: Bhaskar Perkins Consult Reason/Comments: persistent headache Do you want consulting provider notified?: Yes Primary care physician: [facility] Course: Chief Complaint: Left foot third toe infected History of presenting complaint: This is a pleasant 64-year-old patient of Dr. Mcfarlane. Chronic stable medical conditions include idiopathic peripheral neuropathy, morbid obesity, primary osteoarthritis, essential hypertension, hypothyroid, , urinary stress incontinence, chronic venous stasis, hyperlipidemia, bilateral lower extremity lymphedema, pyoderma gangrenosum, chronic low back pain.. uses a wheelchair to get about. Patient was sent in from the wound care center by Dr. Morris from vascular. Left foot third toe infected. Painful. No fever no chills. Appetite is fair. Started IV daptomycin. Patient's IV daptomycin not covered. For outpatient treatment. Patient did not want to go to the ECF for IV antibiotics. Apparently her insurance won't,, the IV antibiotics at home. Dr. Morris from vascular and Dr. Brown from ID discussed the case. Discussed with the patient. Final plan is to let the patient go home on oral doxycycline. We'll see how the toe does. And that'll be determined with surgical amputation on if the risk significant clinical improvement. Consultation: Dr. Morris from vascular Dr. Hernandez from ID Dr. Rodriguez from neurology Past medical history: Hyperlipidemia, hypertension, osteoarthritis, hypothyroid, uses wheelchair, peripheral neuropathy, chronic venous stasis, bilateral lower extremity lymphedema, urinary stress incontinence, lymph edema, umbilical hernia, hypothyroid. 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 Alcohol rarely. Physical examination: VITAL SIGNS: 97.5, 58, 16, 136.77, 95% room air GENERAL: Laying in bed, comfortable EYES: Pupils equal. Conjunctiva normal. NECK: JVD unable to assess; masses not palpable. HEART: Distal heart sounds; some edema. LUNGS: Respiratory rate normal; distant breath sounds. ABDOMEN: Soft, nontender, liver spleen not palpable, no masses palpable. Umbilical hernia PSYCH: Alert and oriented x3; mood and affect normal. LYMPHATICS: lower extremity lymphedema MUSCULAR skeletal: lower extremity with venous iinsufficiency and lymphedema, chronic skin changes Left lower extremity: absent first and second toe, middle toe is inflamed with surrounding erythema- improved INVESTIGATIONS, reviewed in the clinical context: July 16: WBC 4.2 hemoglobin 9.8 potassium 3.8 creatinine 0.60 July 15: WBC 4 hemoglobin 9.7 potassium 4.1 creatinine 0.81 Computed tomography scan of the brain [July 15]-non-and right cerebellar pontine angle meningioma appears stable.Nil acute July 12: WBC 4.1 hemoglobin 9.6 platelets 32 potassium 3.9 creatinine 0.77 July 11: Creatinine 0.86 WBC 4.2 white count 9.1 L 105 potassium 4.7 creatinine 0.93 Coronavirus [PCR]-not detected Chest x-ray film personally reviewed by me-no obvious infiltrate Assessment and plan: -left third toe acute osteomyelitis. Consultation to Dr. Danielson from vascular Dr. Hernandez from ID. treated with IV daptomycin. Switched over to oral doxycycline. To be further evaluated an outpatient to be managed conservatively or proceed with amputation -chronic low back pain, likely from spinal stenosis/herniated disc with radiculopathy and down and affect.-likely from L1-L2 and L3-L4 nerve distribution. -History of Pyoderma gangrenosum -Hyperlipidemia, continue Lipitor -Essential hypertension, continue Zestril and Norvasc -Primary osteoarthritis, pain medications when necessary -Hypothyroid, continue Synthroid -Chronic medical debility uses wheelchair -Idiopathic peripheral neuropathy -Chronic venous stasis -Bilateral lower extremity lymphedema -Chronic urinary stress incontinence -Chronic umbilical hernia -Morbid obesity BMI 42.6 -Acute thrombocytopenia from infection.-Improving -Possibly migraine headaches, intractable. Topamax 25 mg twice a day. Computed tomography scan been negative. Seen by neurology. Disposition: Home Plan - Discharge Summary Discharge Rx Participant: No New Discharge Prescriptions: New Doxycycline [Vibramycin] 100 mg PO BID #28 cap Pyridoxine [Vitamin B-6] 50 mg PO DAILY #60 tab Continue Levothyroxine Sodium [Synthroid] 100 mcg PO DAILY Atorvastatin Calcium [Lipitor] 10 mg PO HS Pregabalin [Lyrica] 100 mg PO TID HYDROcodone/APAP 7.5-325MG [[place] 7.5-325] 1 tab PO Q6H PRN PRN Reason: Pain Changed lisinopriL [Zestril] 20 mg PO HS #0 Discontinued amLODIPine [Norvasc] 5 mg PO DAILY Discharge Medication List Levothyroxine Sodium [Synthroid] 100 mcg PO DAILY 08/29/13 [History] Atorvastatin Calcium [Lipitor] 10 mg PO HS 10/06/18 [History] Pregabalin [Lyrica] 100 mg PO TID 02/03/19 [History] HYDROcodone/APAP 7.5-325MG [[place] 7.5-325] 1 tab PO Q6H PRN 03/18/19 [History] Doxycycline [Vibramycin] 100 mg PO BID #28 cap 07/18/20 [Rx] Pyridoxine [Vitamin B-6] 50 mg PO DAILY #60 tab 07/18/20 [Rx] lisinopriL [Zestril] 20 mg PO HS #0 07/18/20 [Rx] Follow up Appointment(s)/Referral(s): Adonis Mcfarlane DO [Primary Care Provider] - 07/24/20 9:40 am [facility], [NON-STAFF] - 1 Week [facility], [REFERRING] - 1 Week Luis E Danielson MD [STAFF PHYSICIAN] - 07/19/20 2:15 pm Thea Hernandez MD [STAFF PHYSICIAN] - 08/06/20 1:15 pm (patient will be seen in [address] office) Patient Instructions/Handouts: Daptomycin (By injection), Cellulitis (DC), Osteomyelitis (DC) Activity/Diet/Wound Care/Special Instructions: [place] [id number] [place], [place] . NEUROSURGE[place] Dr. Jose Armando Carpenter [id number], [place] [address]. . Pt needs to follow up with Dr. Rodriguez within 3 weeks of discharge. Discharge Disposition: HOME SELF-CARE
--- NOTE | 2020-07-20 07:42 | CDI ---
Documentation Clarification Form Date: 07/20/20 From: Mary Chowdary Phone: Admit Date: 07/11/2020 08:13:00 AM Patient Name: Darling Spicer Visit Number: [id number] Discharge Date: 07/18/2020 05:26:00 PM ATTENTION: The Clinical Documentation Specialists (CDI) and [facility] Coding Staff appreciate your assistance in clarifying documentation. Please respond to the clarification below the line at the bottom and electronically sign. The CDI & [facility] Coding staff will review the response and follow-up if needed. Please note: Queries are made part of the Legal Health Record. If you have any questions, please contact the author of this message via ITS. Dr. Tal Magallanes, Acute osteomyelitis of left third toe has been documented in the: H&P, consults, PNs and DS. History/Risk Factors: peripheral neuropathy, chronic venous stasis, bilateral lower extremity lymphedema, S/P left second toe amputation, hx of pyoderma gangrenosum, hx of smoking, on no diabetic medications Clinical Indicators: Per Dr Hernandez's consult the patient has history of significant left diabetic foot infection with left third toe osteomyelitis with MRSA in March or 2019. Patient was advised a 6-week course of IV Vancomycin. However, she seemed to have a problem with the Vancomycin, which was subsequently switched over to Daptomycin. Unfortunately the patient did not follow up in the outpatient setting with us. He was sent from Wound Care due to left middle toe is inflamed with surrounding erythema with pain. Treatment: IV Vancomycin, IV Daptomycin, Doxycycline 100 mg PO BID at discharge In your professional opinion, please specify the following: Associated condition (if applicable): Diabetic Major osseous defect (specify site) Other (please specify): Diabetic causing acute osteomyelitis of left third toe MTDD
== END 2020-07-18 17:26 | disposition home health service (06) | DRG 638 ==
LOC: EC 15:18 → 5NMEDONC 16:47 → OBSVTOIN 07-11 08:13
PROVIDERS: ADMIT Hospitalist; ATTEND Hospitalist
PROC: 02HV33Z Insertion of Infusion Device into Superior Vena Cava, Percutaneous Approach (ICD-10-PCS; principal; 2020-07-16 09:25)
DX: E11.69 Type 2 diabetes mellitus with other specified complication (principal); M86.172 Other acute osteomyelitis, left ankle and foot; Z68.41 Body mass index [BMI] 40.0-44.9, adult; D69.59 Other secondary thrombocytopenia; E03.9 Hypothyroidism, unspecified; D32.0 Benign neoplasm of cerebral meninges; Z89.422 Acquired absence of other left toe(s); E66.01 Morbid (severe) obesity due to excess calories; Z20.822 Contact with and (suspected) exposure to COVID-19; G43.919 Migraine, unspecified, intractable, without status migrainosus; E78.5 Hyperlipidemia, unspecified; I10 Essential (primary) hypertension; G60.9 Hereditary and idiopathic neuropathy, unspecified; M19.91 Primary osteoarthritis, unspecified site; I87.8 Other specified disorders of veins; I89.0 Lymphedema, not elsewhere classified; N39.3 Stress incontinence (female) (male); G89.29 Other chronic pain; M51.16 Intervertebral disc disorders with radiculopathy, lumbar region; M48.061 Spinal stenosis, lumbar region without neurogenic claudication; E53.8 Deficiency of other specified B group vitamins; E53.1 Pyridoxine deficiency; K21.9 Gastro-esophageal reflux disease without esophagitis; R19.7 Diarrhea, unspecified; K42.9 Umbilical hernia without obstruction or gangrene; R53.81 Other malaise; Z79.890 Hormone replacement therapy; Z79.899 Other long term (current) drug therapy; Z87.891 Personal history of nicotine dependence; Z86.14 Personal history of Methicillin resistant Staphylococcus aureus infection; Z87.440 Personal history of urinary (tract) infections; Z86.19 Personal history of other infectious and parasitic diseases; Z87.81 Personal history of (healed) traumatic fracture; Z90.49 Acquired absence of other specified parts of digestive tract; Z87.2 Personal history of diseases of the skin and subcutaneous tissue; Z98.891 History of uterine scar from previous surgery; Z98.51 Tubal ligation status; Z87.39 Personal history of other diseases of the musculoskeletal system and connective tissue; Z98.890 Other specified postprocedural states; Z71.3 Dietary counseling and surveillance; Z88.1 Allergy status to other antibiotic agents; Z88.2 Allergy status to sulfonamides; Z82.49 Family history of ischemic heart disease and other diseases of the circulatory system; Z80.42 Family history of malignant neoplasm of prostate; Z82.3 Family history of stroke; Z80.1 Family history of malignant neoplasm of trachea, bronchus and lung
CPT/HCPCS: 36415; 36573; 70460; 71046; 80048; 80053; 82565; 82607; 82747; 83036; 83921; 84165; 84207; 85025; 85610; 85652; 85730; 86140; 86334; 86335; 87040; 87635; 93005; 96365; 96366; 96367; 96375; 96376; 99284; 99285

== ENCOUNTER 2020-08-06 15:12 | Inpatient (IN) | payer MEDICARE ==
[2020-08-06] MEDS ORDERED: PIPERACILLIN-TAZOBACTAM 3.375 GM in SODIUM CHLORIDE 0.9% 100 ML IVPB STA (16:34)
--- NOTE | 2020-08-06 18:25 | XR ---
EXAMINATION TYPE: XR foot complete LT DATE OF EXAM: 08/06/2020 COMPARISON: 04/06/2020 HISTORY: Toe infection TECHNIQUE: 3 views FINDINGS: There is amputation deformity of the big toe at the first MP joint. There is amputation of the second toe at the base of the proximal phalanx. There is soft tissue swelling around the foot and ankle. There is osteopenia. There is plantar and Achilles calcaneal spurring. There is loss of bone at the tip of the third toe and fourth toe. IMPRESSION: Soft tissue swelling. There is bone loss at the tips of the third and fourth toes at coul d be chronic osteomyelitis.
--- NOTE | 2020-08-06 18:27 | ED ---
General Adult HPI - General Chief complaint: Skin/Abscess/Foreign Body Stated complaint: Toe problems Time Seen by Provider: 08/06/20 15:24 Source: patient, RN/MD, RN notes reviewed, old records reviewed Mode of arrival: wheelchair Limitations: no limitations - History of Present Illness Initial comments: Patient is a pleasant 65-year-old female presenting to the emergency department for left third toe infection. Patient was sent by Dr. Danielson in the wound center. Patient has recently been on antibiotics. He would like patient admitted to medicine and him placed on consult with Dr. Brown. He does have concern for gangrene. Patient states she was on daptomycin couple months ago and did seem 3 responding well to it at that time however symptoms seemed to be returning. Patient does complain of discomfort. - Related Data Home Medications Medication Instructions Recorded Confirmed Levothyroxine Sodium [Synthroid] 100 mcg PO DAILY 08/29/13 07/09/20 Atorvastatin Calcium [Lipitor] 10 mg PO HS 10/06/18 07/09/20 Pregabalin [Lyrica] 100 mg PO TID 02/03/19 07/09/20 HYDROcodone/APAP 7.5-325MG [[place] 1 tab PO Q6H PRN 03/18/19 07/09/20 7.5-325] Previous Rx's Medication Instructions Recorded Doxycycline [Vibramycin] 100 mg PO BID #28 cap 07/18/20 Pyridoxine [Vitamin B-6] 50 mg PO DAILY #60 tab 07/18/20 lisinopriL [Zestril] 20 mg PO HS #0 07/18/20 Topiramate [Topamax] 25 mg PO BID #60 tab 07/19/20 Allergies Allergy/AdvReac Type Severity Reaction Status Date / Time Sulfa (Sulfonamide Allergy Rash/Hives Verified 08/06/20 16:37 Antibiotics) vancomycin Allergy Rash/Hives Verified 08/06/20 16:37 levofloxacin [From Levaquin] AdvReac Itching Verified 08/06/20 16:37 Review of Systems ROS Statement: Those systems with pertinent positive or pertinent negative responses have been documented in the HPI. ROS Other: All systems not noted in ROS Statement are negative. Constitutional: Denies: fever Eyes: Denies: eye pain ENT: Denies: ear pain Respiratory: Denies: cough Cardiovascular: Denies: chest pain Endocrine: Denies: fatigue Gastrointestinal: Denies: abdominal pain Genitourinary: Denies: dysuria Musculoskeletal: Denies: back pain Skin: Reports: as per HPI, rash Neurological: Denies: weakness Past Medical History Past Medical History: Hyperlipidemia, Hypertension, Osteoarthritis (OA), Skin Disorder, Thyroid Disorder Additional Past Medical History / Comment(s): Nonambulatory/pivots to wheelchair normally, low back pain, neuropathy bilateral feet, chronic venous stasis, past L heel/L posterior yost/left second toe wounds, past L 2nd toe osteomyelitis-now amptuated, L great toe amptutated; current L 3rd digit wound and pt states suspected osteomyelitis, bilateral leg cellulitis, lymphedema left leg, past R ankle fracture x3, UTIs, urinary stress incontinence, chronic anemia, umbilical hernia, hypothyroid, pyoderma gangrenosum, 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 History of Any Multi-Drug Resistant Organisms: MRSA, VRE, VRE Date of last positivie culture/infection: 05/06/19-VRE 04/07/20 mrsa MDRO Source:: Left Foot-VRE, Left Foot and Leg MRSA Past Surgical History: Section, Cholecystectomy, Orthopedic Surgery, Tubal Ligation Additional Past Surgical History / Comment(s): L leg I&D, bilateral knee arthroscopies, L great toe and 2nd toe amp d/t nonhealing wounds, PICCS, midlines, D&Cs Past Anesthesia/Blood Transfusion Reactions: Previous Problems w/ Anesthesia Additional Past Anesthesia/Blood Transfusion Reaction / Comment(s): Slow to come out of it/muscle weakness Past Psychological History: Depression Smoking Status: Former smoker Past Alcohol Use History: None Reported Past Drug Use History: None Reported - Past Family History Father Family Medical History: Cancer, Coronary Artery Disease (CAD), Myocardial Infarction ([place]), Prostate Disorder Additional Family Medical History / Comment(s): Prostate CA. Father in a MVA at the age of 80yrs. Mother Family Medical History: Cancer, CVA/TIA, Hyperlipidemia Additional Family Medical History / Comment(s): Lung CA-left lobe removed. General Exam Limitations: no limitations General appearance: alert, in no apparent distress Head exam: Present: normocephalic Eye exam: Present: normal appearance Neck exam: Present: normal inspection Respiratory exam: Present: normal lung sounds bilaterally Cardiovascular Exam: Present: regular rate, normal rhythm GI/Abdominal exam: Present: soft. Absent: tenderness Extremities exam: Present: other (Previous amputation first and second left toe. Third toe is erythematous and swollen and tender. Erythema does extend to the distal dorsal foot. There may be involvement of the fourth toe as well.) Neurological exam: Present: alert Psychiatric exam: Present: normal affect, normal mood Skin exam: Present: erythema Course Vital Signs 08/06/20 16:34 Temperature 97.4 F L Pulse Rate 74 Respiratory 18 Rate Blood Pressure 168/95 O2 Sat by Pulse 97 Oximetry Medical Decision Making - Medical Decision Making Patient aware of plan. Case was earlier discussed with Dr. Danielson. Case was also discussed with Dr. Magallanes, who will admit for Dr. Mcfarlane. Disposition Clinical Impression: Cellulitis of left leg Disposition: ADMITTED IP TO THIS [facility] Condition: Serious Is patient prescribed a controlled substance at d/c from ED?: No Referrals: Adonis Mcfarlane DO [Primary Care Provider] - 1-2 days Decision Time: 18:26
[2020-08-06] MEDS ORDERED: NALOXONE 0.4 MG/ML 1 ML VIAL IV PRN (18:30)
[2020-08-06] MEDS ORDERED: SODIUM CHLORIDE 0.9% 1,000 ML IV SCH (18:30)
[2020-08-06] MEDS ORDERED: DAPTOmycin 500 MG in SODIUM CHLORIDE 0.9% 50 ML IVPB ONE (19:00)
[2020-08-06 19:28] LABS: Basophils % (A) 0 %; Eosinophils % (A) 1 %; HCT 42.3 % (34.0-46.0); Lymphocytes # (A) 0.8 k/uL (1.0-4.8); Lymphocytes % (A) 23 %; MCH 29.2 pg (25.0-35.0); MCHC 31.3 g/dL (31.0-37.0); MCV 93.3 fL (80.0-100.0); Mean Platelet Volume 10.8; Monocytes # (A) 0.3 k/uL (0-1.0); Monocytes % (A) 7 %; Neutrophils # (A) 2.3 k/uL (1.3-7.7); Neutrophils % (A) 65 %; Platelet Count 100 k/uL (150-450); RBC 4.54 m/uL (3.80-5.40); RDW 15.4 % (11.5-15.5); WBC 3.6 k/uL (3.8-10.6)
[2020-08-06 19:31] LABS: ALT 14 U/L (4-34); AST 32 U/L (14-36); African American GFR (CKD) >90 (>60 ml/min/1.73 sqM); Albumin 4.3 g/dL (3.5-5.0); Alkaline Phosphatase 158 U/L (38-126); Anion Gap 7 mmol/L; Blood Urea Nitrogen 16 mg/dL (7-17); Calcium 9.9 mg/dL (8.4-10.2); Carbon Dioxide 27 mmol/L (22-30); Chloride 105 mmol/L (98-107); Glucose 82 mg/dL (74-99); Non-African American GFR(CKD) 88 (>60 ml/min/1.73 sqM); Potassium 3.8 mmol/L (3.5-5.1); Sodium 139 mmol/L (137-145); Total Bilirubin 0.5 mg/dL (0.2-1.3); Total Protein 7.1 g/dL (6.3-8.2)
[2020-08-06 19:32] LABS: HGB 13.2 gm/dL (11.4-16.0); Partial Thromboplastin Time 25.2 sec (22.0-30.0); Prothrombin Time 10.5 sec (9.0-12.0)
[2020-08-06] MEDS: traMADol 50 MG TAB PO PRN (20:21)
[2020-08-06] MEDS: HYDROmorphone 1 MG/ML 1 ML SYRINGE IVP PRN (20:23)
[2020-08-06] MEDS ORDERED: lisinopriL 20 MG TAB PO SCH (21:00)
[2020-08-07] MEDS ORDERED: PIPERACILLIN-TAZOBACTAM 3.375 GM in SODIUM CHLORIDE 0.9% 100 ML IVPB SCH ×2
[2020-08-07] MEDS: PANTOPRAZOLE 40 MG/10 ML VIAL IV SCH ×2 (08:59→09:13)
[2020-08-07] MEDS: HYDROmorphone 1 MG/ML 1 ML SYRINGE IVP PRN ×3 (09:08→20:44)
[2020-08-07] MEDS: LEVOTHYROXINE 100 MCG TAB PO SCH (09:56)
[2020-08-07] MEDS: PREGABALIN 100 MG CAP PO SCH ×3 (09:56→20:32)
[2020-08-07] MEDS: lisinopriL 20 MG TAB PO SCH ×2 (09:56→20:32)
[2020-08-07] MEDS: PYRIDOXINE 50 MG TAB PO SCH (09:57)
[2020-08-07] MEDS: TOPIRAMATE 25 MG TAB PO SCH ×2 (10:49→20:56)
--- NOTE | 2020-08-07 11:00 | CONS ---
DATE OF CONSULTATION: 08/07/2020 Darling is known to me from the wound clinic. She came to the wound clinic on Thursday The patient was complaining of pain in her left foot third and fourth toe. There is some redness and cellulitis noted. The patient was complaining a lot of pain. The patient was in [facility] inpatient for IV antibiotics. She improved and there was concern about osteomyelitis of the toe also. Patient has been readmitted, keep her IV antibiotic. She will need toe amputation. MEDICAL HISTORY: History of diabetes, obesity. PAST SURGERY HISTORY: Patient had a left big toe amputation done in the past. PHYSICAL EXAMINATION: NECK: Supple. Trachea central. CHEST: Clear. Femorals are 1+ bilateral. DP 1+ bilateral. There is redness of the third and fourth toe with some tenderness. PLAN: We will give her antibiotic most likely patient will need a toe amputation. We will follow with you. MMODL / IJN: [id number] / MTDD
--- NOTE | 2020-08-07 14:50 | P.PN ---
Progress Note - Text 65-year-old white female, patient came to the wound clinic with the redness of the third and fourth toe with some tenderness patient has a possible osteomyelitis. Patient had a big toe vision in the past patient also has history of obesity diabetes Plan is we'll continue his IV antibiotic most likely patient will need toe amputation follow with you
[2020-08-07] MEDS: DAPTOmycin 500 MG in SODIUM CHLORIDE 0.9% 50 ML IVPB SCH (18:16)
[2020-08-07] MEDS: traMADol 50 MG TAB PO PRN ×2 (18:19→23:46)
[2020-08-07] MEDS: ATORVASTATIN 10 MG TAB PO SCH (20:32)
--- NOTE | 2020-08-07 20:46 | P.HPIM ---
History of Present Illness H&P Date: 08/07/20 Chief Complaint: Left foot toe pain History of presenting complaint: This is a pleasant 64-year-old patient of Dr. Mcfarlane. Chronic stable medical conditions include idiopathic peripheral neuropathy, morbid obesity, primary osteoarthritis, essential hypertension, hypothyroid, , urinary stress incontinence, chronic venous stasis, hyperlipidemia, bilateral lower extremity l ymphedema, pyoderma gangrenosum, chronic low back pain.. uses a wheelchair to get about. Patient recently the hospital for about a week discharged on July 15: Left foot third toe infected. Painful. No fever no chills. Appetite is fair. Started IV daptomycin. Patient's IV daptomycin not covered. For outpatient treatment. Patient did not want to go to the [facility] for IV antibiotics. Apparently her insurance won't,, the IV antibiotics at home. Dr. Morris from vascular and Dr. Brown from ID discussed the case. -Discharged to doxycycline Patient now presents with increasing pain and discomfort redness of the left foot third toe. No fever no chills. Appetite is fair. No diarrhea. Admitted for IV antibiotics and possible amputation. Review of systems GEN.: Tired EYES: None HEENT: None NECK: None RESPIRATORY: None CARDIOVASCULAR: None GASTROINTESTINAL: None GENITOURINARY: Incontinence MUSCULOSKELETAL: As above LYMPHATICS: Chronic lower extremity lymphedema HEMATOLOGICAL: None PSYCHIATRY: None NEUROLOGICAL: Uses a wheelchair Past medical history: Hyperlipidemia, hypertension, osteoarthritis, hypothyroid, uses wheelchair, peripheral neuropathy, chronic venous stasis, bilateral lower extremity lymphedema, urinary stress incontinence, lymph edema, umbilical hernia, hypoth yroid. 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 Alcohol rarely. Physical examination: VITAL SIGNS: 97.7, 80, 18, 130/67, 96% room air GENERAL: BMI 43.8 laying in bed, not in distress EYES: Pupils equal. Conjunctiva normal. HEENT: External appearance of nose and ears normal, oral cavity grossly normal. NECK: JVD unable to assess; masses not palpable. HEART: Distal heart sounds; some edema. LUNGS: Respiratory rate normal; distant breath sounds. ABDOMEN: Soft, nontender, liver spleen not palpable, no masses palpable. Umbilical hernia PSYCH: Alert and oriented x3; mood and affect normal. LYMPHATICS: lower extremity lymphedema MUSCULAR skeletal: lower extremity with venous iinsufficiency and lymphedema, chronic skin changes Left lower extremity: absent first and second toe, middle toe is inflamed with surrounding erythema., Tender. INVESTIGATIONS, reviewed in the clinical context: WBC 3.6 hemoglobin 13.2 platelets 100 potassium 3.8 creatinine 0.7 to Coronavirus [PCR]-not detected EKG tracing personally reviewed by me-normal sinus rhythm X-ray for complete left: Osteopenia. Also bone at the tip of the third toe and fourth toe. Soft tissue swelling. Assessment and plan: -left third toe acutely on chronic inflamed, with surrounding areas of redness tenderness. Acute on chronic ostium mellitus Consultation to Dr. Morris from vascular Dr. Hernandez from ID. IV daptomycin. Possible amputation down the road -chronic low back pain, likely from spinal stenosis/herniated disc with radiculopathy and down and affect.-likely from L1-L2 and L3-L4 nerve distri bution. -History of Pyoderma gangrenosum -Hyperlipidemia, continue Lipitor -Essential hypertension, continue Zestril and Norvasc -Primary osteoarthritis, pain medications when necessary -Hypothyroid, continue Synthroid -Chronic medical debility uses wheelchair -Idiopathic peripheral neuropathy -Chronic venous stasis -Bilateral lower extremity lymphedema -Chronic urinary stress incontinence -Chronic umbilical hernia -Morbid obesity BMI 42.6 Care was discussed with the patient. Questions answered. Home medications resumed. Follow-up with Dr. Brown from ID and Dr. Morris from vascular Past Medical History Past Medical History: Hyperlipidemia, Hypertension, Osteoarthritis (OA), Skin Disorder, Thyroid Disorder Additional Past Medical History / Comment(s): Nonambulatory/pivots to wheelchair normally, low back pain, neuropathy bilateral feet, chronic venous stasis, past L heel/L posterior yost/left second toe wounds, past L 2nd toe osteomyelitis- now amptuated, L great toe amptutated; current L 3rd digit wound and pt states suspected osteomyelitis, bilateral leg cellulitis, lymphedema left leg, past R ankle fracture x3, UTIs, urinary stress incontinence, chronic anemia, umbilical hernia, hypothyroid, pyoderma gangrenosum, 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 History of Any Multi-Drug Resistant Organisms: MRSA, VRE, VRE Date of last positivie culture/infection: 05/06/19-VRE 04/07/20 mrsa MDRO Source:: Left Foot-VRE, Left Foot and Leg MRSA Past Surgical History: Section, Cholecystectomy, Orthopedic Surgery, Tubal Ligation Additional Past Surgical History / Comment(s): L leg I&D, bilateral knee arthroscopies, L great toe and 2nd toe amp d/t nonhealing wounds, PICCS, midlines, D&Cs Past Anesthesia/Blood Transfusion Reactions: Previous Problems w/ Anesthesia Additional Past Anesthesia/Blood Transfusion Reaction / Comment(s): Slow to come out of it/muscle weakness Past Psychological History: Depression Additional Psychological History / Comment(s): Patient states she normally can pivot to wheelchair. She is receiving wound care thru [facility]. She receives [employer] grocery delivery. She gets rides through [employer] or a friend. 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 Smoking Status: Former smoker Past Alcohol Use History: None Reported Additional Past Alcohol Use History / Comment(s): Pt started smoking in 1970 and quit in 1990. Past Drug Use History: None Reported - Past Family History Father Family Medical History: Cancer, Coronary Artery Disease (CAD), Myocardial Infarction ([place]), Prostate Disorder Additional Family Medical History / Comment(s): Prostate CA. Father in a MVA at the age of 80yrs. Mother Family Medical History: Cancer, CVA/TIA, Hyperlipidemia Additional Family Medical History / Comment(s): Lung CA-left lobe removed. Medications and Allergies Home Medications Medication Instructions Recorded Confirmed Type Levothyroxine Sodium [Synthroid] 100 mcg PO DAILY 08/29/13 08/06/20 History Atorvastatin Calcium [Lipitor] 10 mg PO HS 10/06/18 08/06/20 History Pregabalin [Lyrica] 100 mg PO TID 02/03/19 08/06/20 History HYDROcodone/APAP 7.5-325MG [[place] 1 tab PO Q6H PRN 03/18/19 08/06/20 History 7.5-325] Pyridoxine [Vitamin B-6] 50 mg PO DAILY #60 tab 07/18/20 08/06/20 Rx Topiramate [Topamax] 25 mg PO BID #60 tab 07/19/20 08/06/20 Rx lisinopriL [Zestril] 20 mg PO BID 08/06/20 08/06/20 History Allergies Allergy/AdvReac Type Severity Reaction Status Date / Time Sulfa (Sulfonamide Allergy Rash/Hives Verified 08/06/20 18:45 Antibiotics) vancomycin Allergy Rash/Hives Verified 08/06/20 18:45 levofloxacin [From Levaquin] AdvReac Itching Verified 08/06/20 18:45 Physical Exam Vitals: Vital Signs Temp Pulse Pulse Resp BP BP Pulse Ox 08/07/20 02:00 98 F 78 14 149/62 97 08/06/20 19:31 98.4 F 71 16 152/78 97 08/06/20 16:34 97.4 F L 74 18 168/95 97 Intake and Output 08/06/20 08/07/20 08/07/20 22:59 06:59 14:59 Intake Total 740 200 Balance 740 200 Intake: Intake, IV Titration 140 Amount DAPTOmycin 500 mg In 100 Sodium Chloride 0.9% 50 ml @ 100 mls/hr IVPB ONCE ONE Rx#:[id number] Sodium Chloride 0.9% 1, 40 000 ml @ 20 mls/hr IV . Q24H VENKAT Rx#:[id number] Oral 600 200 Other: # Voids 1 # Bowel Movements 1 Weight 130.635 kg Results CBC & Chem 7: 08/06/20 18:45 08/06/20 18:45 Labs: Abnormal Lab Results - Last 24 Hours (Table) 08/06/20 08/06/20 Range/Units 18:45 18:45 WBC 3.6 L (3.8-10.6) k/uL Plt Count 100 L (150-450) k/uL Lymphocytes # 0.8 L (1.0-4.8) k/uL Alkaline Phosphatase 158 H (38-126) U/L Microbiology - Last 24 Hours (Table) 08/06/20 18:45 Gram Stain - Preliminary Foot - Left Wound Culture - Preliminary Thrombosis Risk Factor Assmnt - Choose All That Apply Any of the Below Risk Factors Present?: Yes Each Factor Represents 1 point: Medical pt on bed rest, Minor surgery planned, Swollen legs (current) Other Risk Factors: Yes Each Risk Factor Represents 2 Points: Age 61-74 years, Patient confined to bed Thrombosis Risk Factor Assessment Total Risk Factor Score: 7 Thrombosis Risk Factor Assessment Level: High Risk
--- NOTE | 2020-08-07 22:56 | CONS ---
CONSULTATION DATE OF SERVICE: 08/07/2020 REASON FOR CONSULTATION: Left third toe diabetic foot infection. HISTORY OF PRESENT ILLNESS: The patient is a 65-year-old female with a past medical history significant for diabetic foot infection requiring amputation of the left first and second toes. The patient was recently admitted to this facility with left third toe osteomyelitis. Patient's culture was positive for MRSA. She was advised daptomycin, as she was not able to tolerate vancomycin; however, the patient did not have any outpatient coverage for IV daptomycin. The patient stayed in the hospital for about a week or 10 days and did have overall improvement. Vascular Surgery recommended no amputation. The patient was discharged home and she was supposed to be on oral doxycycline for a couple of weeks; however, she mentioned she completed her oral doxycycline last Thursday and suddenly noticed having worsening of her left third toe becoming more swollen, red and painful. The patient describes the pain to be throbbing, intensity about 7/10, no radiation. It did have minimal drainage. The patient was seen [facility] the [facility] by Dr. Danielson and subsequently the patient was sent to the ER for admission for possible amputation of the left third toe. The patient did have x-rays of the left foot which did show some soft tissue swelling. The patient has been afebrile. She did have mild leukopenia. Myles PCR was negative. The patient has been admitted to the hospital on daptomycin. Infectious Disease was consulted for further management of antibiotic therapy. REVIEW OF SYSTEMS: Positive points have been mentioned in the HPI. Rest of the systems are negative. PAST MEDICAL HISTORY: Diabetes mellitus, diabetic foot infection, osteomyelitis of the toe, hypertension, hyperlipidemia osteoarthritis, hypothyroidism. PAST SURGICAL HISTORY: , cholecystectomy, bilateral knee arthroscopies and left big and second toe amputations. SOCIAL HISTORY: Remote history of smoking. No drinking or drug use. FAMILY HISTORY: Father with history of coronary artery disease, [place] and prostate cancer. Mother with history of lung cancer and hyperlipidemia. ALLERGIES: SULFA, VANCOMYCIN, LEVOFLOXACIN. MEDICATIONS: The patient is currently on Tylenol, [place], Lipitor, daptomycin, Dilaudid, Synthroid, Zestril, Narcan, Protonix, Lyrica, Topamax, Ultram and vitamin B6. PHYSICAL EXAMINATION: Blood pressure is 118/67, pulse of 78, temperature 98.1. She is 95% on room air. General description is an elderly female lying in bed in no distress. No tachypnea or accessory muscle of respiration use. HEENT: Examination shows no pallor or scleral icterus. Oral mucous membrane is dry. NECK: Trachea is central. No thyromegaly. LUNGS: Unlabored breathing. Clear to auscultation anteriorly No wheeze or crackle. HEART: S1, S2. Regular rate and rhythm. ABDOMEN: Soft. No tenderness. No guarding or rigidity. EXTREMITIES: No edema of the feet. SKIN EXAMINATION: Left third toe swollen and red. Minimal redness. No drainage. Slightly warm. Neurologically the patient is awake, alert, oriented x3. Mood and affect normal. LABS: Hemoglobin 13.2, white count of 3.6, BUN of 16, creatinine 0.72. DIAGNOSTIC IMPRESSION AND PLAN: Patient with left third toe osteomyelitis, failing outpatient oral antibiotic therapy and patient unable to afford antibiotic in the outpatient setting, admitted to hospital for amputation of the left third toe. PLAN: 1. Daptomycin to continue perioperatively. 2. daily. 3. Await amputation. After surgery may not need long-term antibiotic therapy. Thank you for this consultation. Will follow this patient along with you. MMODL / IJN: [id number] /
[2020-08-08] MEDS: LEVOTHYROXINE 100 MCG TAB PO SCH (06:08)
[2020-08-08] MEDS: traMADol 50 MG TAB PO PRN ×3 (06:08→17:52)
[2020-08-08] MEDS: PANTOPRAZOLE 40 MG TABLET PO SCH (06:08)
[2020-08-08] MEDS: lisinopriL 20 MG TAB PO SCH ×2 (08:35→21:02)
[2020-08-08] MEDS: PYRIDOXINE 50 MG TAB PO SCH (08:35)
[2020-08-08] MEDS: PREGABALIN 100 MG CAP PO SCH ×3 (08:35→21:02)
[2020-08-08] MEDS: TOPIRAMATE 25 MG TAB PO SCH ×2 (09:33→21:02)
--- NOTE | 2020-08-08 12:00 | CDI ---
Documentation Clarification Form Date: 08/08/2020 11:40:14 AM From: Anamaria Scanlon CCS, CCDS Admit Date: 08/06/2020 06:30:00 PM Patient Name: Darling Spicer Visit Number: [id number] Discharge Date: ATTENTION: The Clinical Documentation Specialists (CDI) and [facility] Coding Staff appreciate your assistance in clarifying documentation. Please respond to the clarification below the line at the bottom and electronically sign. The CDI & [facility] Coding staff will review the response and follow-up if needed. Please note: Queries are made part of the Legal Health Record. If you have any questions, please contact the author of this message via ITS. Dr. Tal Magallanes: Diabetes is documented in the 08/07 Vascular Consult under patient's history and in the 08/07 Infectious Disease Consult also under the Past Medical History. Per the 08/06 ED Note and the 08/07 Vascular Surgery Consult, the patient is admitted with Cellulitis of the left leg with a history of bilateral leg cellulitis. Per the 08/07 Vascular Surgery Progress Note: ...patient has a possible osteomyelitis. Additional specificity regarding the Diabetes, Cellulitis and Osteomyelitis is requested. History/Risk Factors Per the 08/07 History & Physical: Hyperlipidemia, Hypertension, Osteoarthritis, Hypothyroid, Peripheral Neuropathy, Chronic venous stasis, Bilateral lower extremity edema, Urinary stress incontinence, Morbid Obesity, BMI >40, Hypothyroid, Chronic low back pain from Spinal Stenosis, Herniated Disc, Pyoderma Gangrenosum and Left foot 2nd toe amputation. Wheelchair confined, Former smoker. Per the 08/06 ED Past Medical History: Osteomyelitis, Bilateral leg Cellulitis, UTIs, MRSA, VRE: Left foot & Leg. Clinical Indicators: Presented to the ED on 08/06 with left third toe infection, recently on antibiotics with concern for gangrene. ED Clinical Impression: Cellulitis of left leg. 08/06 LAB: WBC 3.6, Pl Ct 100, Lymph 0.8, Glucose 82. 08/06 Left Foot XR: There is bone loss at the tips of the third and fourth toes at could be chronic osteomyelitis. Treatment 08/06: IV Dilaudid 1 mg q3Hr, IV fluid 1,000 mls @ 20 mls/hr q24Hr, po Ultram, IV Daptomycin 500 mg 50 mls @ 100 mls/hr x1. 4/13: IV Zosyn 100 mls @ 25 mls/hr q8Hr Home meds: Vibramycin, Vit B6, Zestril, Topamax, Synthroid, Lipitor, Lyrica, [place]. Please clarify the type of diabetes, if known: [ ] Diabetes ruled out [ ] Diabetes with underlying condition(s), please specify: [ ] Cellulitis [ ] Osteomyelitis [ ] Other, please specify: [ ] Other, please specify [ ] Unable to Determine (Template Last Revised: June 2020) Diabetes ruled out MTDD
[2020-08-08] MEDS: HYDROmorphone 1 MG/ML 1 ML SYRINGE IVP PRN ×2 (12:02→17:52)
[2020-08-08] MEDS: DAPTOmycin 500 MG in SODIUM CHLORIDE 0.9% 50 ML IVPB SCH (17:53)
--- NOTE | 2020-08-08 19:39 | PN ---
PROGRESS NOTE DATE OF SERVICE: 08/08/2020 REASON FOR FOLLOWUP: Left third toe osteomyelitis and MRSA. INTERVAL HISTORY: The patient is currently afebrile. The patient is breathing comfortably. The patient denies having any chest pain or shortness of breath or cough. No abdominal pain. Overall pain and discomfort to the left third toe has decreased. PHYSICAL EXAMINATION: Blood pressure 106/62 with a pulse of 73, temperature 97.6. She is 98% on room air. General description is an elderly female lying in bed in no distress. RESPIRATORY SYSTEM: Unlabored breathing. Clear to auscultation anteriorly. HEART: S1, S2. Regular rate and rhythm. ABDOMEN: Soft. No tenderness. Left foot is currently dressed. No obvious drainage on the dressing. DIAGNOSTIC IMPRESSION AND PLAN: Patient with left third toe osteomyelitis, chronic, in this patient who seems to be clinically responding to daptomycin; to continue. Waiting for amputation. Monitor clinical course closely. MMODL / IJN: [id number] /
[2020-08-08] MEDS: ATORVASTATIN 10 MG TAB PO SCH (21:02)
--- NOTE | 2020-08-08 22:03 | P.PN ---
Progress Note - Text Progress Note Date: 08/08/20 Chief Complaint: Left foot toe pain History of presenting complaint: This is a pleasant 64-year-old patient of Dr. Mcfarlane. Chronic stable medical conditions include idiopathic peripheral neuropathy, morbid obesity, primary osteoarthritis, essential hypertension, hypothyroid, , urinary stress incontinence, chronic venous stasis, hyperlipidemia, bilateral lower extremity lymphedema, pyoderma gangrenosum, chronic low back pain.. uses a wheelchair to get about. Patient recently the hospital for about a week discharged on July 15: Left foot third toe infected. Painful. No fever no chills. Appetite is fair. Started IV daptomycin. Patient's IV daptomycin not covered. For outpatient treatment. Patient did not want to go to the [facility] for IV antibiotics. Apparently her insurance won't,, the IV antibiotics at home. Dr. Morris from vascular and Dr. Brown from ID discussed the case. -Discharged to doxycycline Patient now presents with increasing pain and discomfort redness of the left foot third toe. No fever no chills. Appetite is fair. No diarrhea. Admitted for IV antibiotics and possible amputation. Admitted with acute on chronic left third toe osteomyelitis. Started IV daptomycin Today: Pain is a bit better. Tolerating diet. No diarrhea. No fever no chills. Review of systems: Was done for constitutional, cardiovascular, GI, pulmonary. relevant finding as above Active Medications Acetaminophen (Acetaminophen Tab 325 Mg Tab) 650 mg PO Q6HR PRN PRN Reason: Mild Pain or Fever > 100.5 Hydrocodone Bitart/Acetaminophen (Hydrocodone/Apap 7.5-325mg 1 Each Tab) 1 each PO Q6H PRN PRN Reason: Pain Atorvastatin Calcium (Atorvastatin 10 Mg Tab) 10 mg PO HS VENKAT Last Admin: 08/08/20 21:02 Dose: 10 mg Documented by: Hydromorphone HCl (Hydromorphone 1 Mg/Ml 1 Ml Syringe) 1 mg IVP Q3HR PRN PRN Reason: Severe Pain Last Admin: 08/08/20 17:52 Dose: 1 mg Documented by: Daptomycin 500 mg/ Sodium (Chloride) 50 mls @ 100 mls/hr IVPB Q24H VENKAT; Protocol Last Admin: 08/08/20 17:53 Dose: 100 mls/hr Documented by: Levothyroxine Sodium (Levothyroxine 100 Mcg Tab) 100 mcg PO DAILY@0630 [facility] Last Admin: 08/08/20 06:08 Dose: 100 mcg Documented by: Lisinopril (Lisinopril 20 Mg Tab) 20 mg PO BID [facility] Last Admin: 08/08/20 21:02 Dose: 20 mg Documented by: Naloxone HCl (Naloxone 0.4 Mg/Ml 1 Ml Vial) 0.2 mg IV Q2M PRN PRN Reason: Opioid Reversal Pantoprazole Sodium (Pantoprazole 40 Mg Tablet) 40 mg PO AC-BRKFST [facility] Last Admin: 08/08/20 06:08 Dose: 40 mg Documented by: Pregabalin (Pregabalin 100 Mg Cap) 100 mg PO TID [facility] Last Admin: 08/08/20 21:02 Dose: 100 mg Documented by: Pyridoxine HCl (Pyridoxine 50 Mg Tab) 50 mg PO DAILY [facility] Last Admin: 08/08/20 08:35 Dose: 50 mg Documented by: Topiramate (Topiramate 25 Mg Tab) 25 mg PO BID [facility] Last Admin: 08/08/20 21:02 Dose: Not Given Documented by: Tramadol HCl (Tramadol 50 Mg Tab) 50 mg PO Q6H PRN PRN Reason: Moderate Pain Last Admin: 08/08/20 17:52 Dose: 50 mg Documented by: Past medical history: Hyperlipidemia, hypertension, osteoarthritis, hypothyroid, uses wheelchair, peripheral neuropathy, chronic venous stasis, bilateral lower extremity lymphedema, urinary stress incontinence, lymph edema, umbilical hernia, hypothyroid. 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 Alcohol rarely. Physical examination: VITAL SIGNS: 97.6, 73, 16, 106/62, 98% room air GENERAL: laying in bed, not in distress EYES: Pupils equal. Conjunctiva normal. NECK: JVD unable to assess; masses not palpable. HEART: Distal heart sounds; some edema. LUNGS: Respiratory rate normal; distant breath sounds. ABDOMEN: Soft, nontender, liver spleen not palpable, no masses palpable. Umbilical hernia PSYCH: Alert and oriented x3; mood and affect normal. LYMPHATICS: lower extremity lymphedema MUSCULAR skeletal: lower extremity with venous iinsufficiency and lymphedema, chronic skin changes Left lower extremity: absent first and second toe, middle toe is inflamed with surrounding erythema., Tender. INVESTIGATIONS, reviewed in the clinical context: August 08: ESR 12 WBC 3.6 hemoglobin 13.2 platelets 100 potassium 3.8 creatinine 0.7 to Coronavirus [PCR]-not detected EKG tracing personally reviewed by me-normal sinus rhythm X-ray for complete left: Osteopenia. Also bone at the tip of the third toe and fourth toe. Soft tissue swelling. Assessment and plan: -left third toe acutely on chronic inflamed, with surrounding areas of redness tenderness. Acute on chronic ostium mellitus Consultation to Dr. Morris from vascular Dr. Hernandez from ID. IV daptomycin. Possible amputation down the road -chronic low back pain, likely from spinal stenosis/herniated disc with radiculopathy and down and affect.-likely from L1-L2 and L3-L4 nerve distribution. -History of Pyoderma gangrenosum -Hyperlipidemia, continue Lipitor -Essential hypertension, continue Zestril and Norvasc -Primary osteoarthritis, pain medications when necessary -Hypothyroid, continue Synthroid -Chronic medical debility uses wheelchair -Idiopathic peripheral neuropathy -Chronic venous stasis -Bilateral lower extremity lymphedema -Chronic urinary stress incontinence -Chronic umbilical hernia -Morbid obesity BMI 42.6 Care was discussed with the patient. Continue IV daptomycin
[2020-08-09] MEDS: HYDROmorphone 1 MG/ML 1 ML SYRINGE IVP PRN ×3 (01:54→22:05)
[2020-08-09] MEDS: traMADol 50 MG TAB PO PRN ×4 (01:55→22:04)
[2020-08-09] MEDS: LEVOTHYROXINE 100 MCG TAB PO SCH (06:48)
[2020-08-09] MEDS: PANTOPRAZOLE 40 MG TABLET PO SCH (06:49)
[2020-08-09] MEDS: PREGABALIN 100 MG CAP PO SCH ×3 (09:11→22:06)
[2020-08-09] MEDS: PYRIDOXINE 50 MG TAB PO SCH (09:11)
[2020-08-09] MEDS: TOPIRAMATE 25 MG TAB PO SCH ×2 (09:11→21:57)
[2020-08-09] MEDS: lisinopriL 20 MG TAB PO SCH ×2 (09:11→22:04)
--- NOTE | 2020-08-09 14:55 | PN ---
PROGRESS NOTE DATE OF SERVICE: 08/09/2020 REASON FOR FOLLOWUP: Left third toe osteomyelitis. INTERVAL HISTORY: The patient is afebrile. The patient is breathing comfortably. Patient denies having any chest pain or shortness of breath or cough. No abdominal pain or any worsening pain to the left third toe. PHYSICAL EXAMINATION: Blood pressure 119/73, pulse of 75, temperature 97.6. She is 99% on room air. General description is an elderly female up in the chair in no distress. RESPIRATORY SYSTEM: Unlabored breathing, clear to auscultation anteriorly. HEART: S1, S2. Regular rate and rhythm. ABDOMEN: Soft, no tenderness. Left foot is currently dressed up. No obvious drainage on the dressing. LABS: No new labs have been obtained today. DIAGNOSTIC IMPRESSION AND PLAN: Patient with left third toe osteomyelitis. Culture positive for MRSA. Patient is on daptomycin because of problems with vancomycin. Awaiting amputation. Continue with supportive care. MMODL / IJN: [id number] /
[2020-08-09] MEDS: DAPTOmycin 500 MG in SODIUM CHLORIDE 0.9% 50 ML IVPB SCH (18:05)
[2020-08-09] MEDS: ATORVASTATIN 10 MG TAB PO SCH (22:04)
--- NOTE | 2020-08-09 22:30 | P.PN ---
Progress Note - Text Progress Note Date: 08/09/20 Chief Complaint: Left foot toe pain History of presenting complaint: This is a pleasant 64-year-old patient of Dr. Mcfarlane. Chronic stable medical conditions include idiopathic peripheral neuropathy, morbid obesity, primary osteoarthritis, essential hypertension, hypothyroid, , urinary stress incontinence, chronic venous stasis, hyperlipidemia, bilateral lower extremity lymphedema, pyoderma gangrenosum, chronic low back pain.. uses a wheelchair to get about. Patient recently the hospital for about a week discharged on July 15: Left foot third toe infected. Painful. No fever no chills. Appetite is fair. Started IV daptomycin. Patient's IV daptomycin not covered. For outpatient treatment. Patient did not want to go to the [facility] for IV antibiotics. Apparently her insurance won't,, the IV antibiotics at home. Dr. Morris from vascular and Dr. Brown from ID discussed the case. -Discharged to doxycycline Patient now presents with increasing pain and discomfort redness of the left foot third toe. No fever no chills. Appetite is fair. No diarrhea. Admitted for IV antibiotics and possible amputation. Admitted with acute on chronic left third toe osteomyelitis. Started IV daptomycin Today: Sitting up in a chair. Comfortable. Reading a book. Very slight nausea. Had slight loose stool. Orally twice a last 24 hours Review of systems: Was done for constitutional, cardiovascular, GI, pulmonary. relevant finding as above Active Medications Acetaminophen (Acetaminophen Tab 325 Mg Tab) 650 mg PO Q6HR PRN PRN Reason: Mild Pain or Fever > 100.5 Hydrocodone Bitart/Acetaminophen (Hydrocodone/Apap 7.5-325mg 1 Each Tab) 1 each PO Q6H PRN PRN Reason: Pain Atorvastatin Calcium (Atorvastatin 10 Mg Tab) 10 mg PO HS VENKAT Last Admin: 08/09/20 22:04 Dose: 10 mg Documented by: Hydromorphone HCl (Hydromorphone 1 Mg/Ml 1 Ml Syringe) 1 mg IVP Q3HR PRN PRN Reason: Severe Pain Last Admin: 08/09/20 22:05 Dose: 1 mg Documented by: Daptomycin 500 mg/ Sodium (Chloride) 50 mls @ 100 mls/hr IVPB Q24H VENKAT; Protoco l Last Admin: 08/09/20 18:05 Dose: 100 mls/hr Documented by: Levothyroxine Sodium (Levothyroxine 100 Mcg Tab) 100 mcg PO DAILY@0630 [facility] Last Admin: 08/09/20 06:48 Dose: 100 mcg Documented by: Lisinopril (Lisinopril 20 Mg Tab) 20 mg PO BID [facility] Last Admin: 08/09/20 22:04 Dose: 20 mg Documented by: Naloxone HCl (Naloxone 0.4 Mg/Ml 1 Ml Vial) 0.2 mg IV Q2M PRN PRN Reason: Opioid Reversal Pantoprazole Sodium (Pantoprazole 40 Mg Tablet) 40 mg PO AC-BRKFST [facility] Last Admin: 08/09/20 06:49 Dose: Not Given Documented by: Pregabalin (Pregabalin 100 Mg Cap) 100 mg PO TID [facility] Last Admin: 08/09/20 22:06 Dose: 100 mg Documented by: Pyridoxine HCl (Pyridoxine 50 Mg Tab) 50 mg PO DAILY [facility] Last Admin: 08/09/20 09:11 Dose: 50 mg Documented by: Topiramate (Topiramate 25 Mg Tab) 25 mg PO BID [facility] Last Admin: 08/09/20 21:57 Dose: Not Given Documented by: Tramadol HCl (Tramadol 50 Mg Tab) 50 mg PO Q6H PRN PRN Reason: Moderate Pain Last Admin: 08/09/20 22:04 Dose: 50 mg Documented by: Past medical history: Hyperlipidemia, hypertension, osteoarthritis, hypothyroid, uses wheelchair, peripheral neuropathy, chronic venous stasis, bilateral lower extremity lymphedema, urinary stress incontinence, lymph edema, umbilical hernia, hypothyroid. 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 Alcohol rarely. Physical examination: VITAL SIGNS: 97.6, 66, 16, 133.79, 98% room air GENERAL: Reclining chair, up reading a book comfortable EYES: Pupils equal. Conjunctiva normal. NECK: JVD unable to assess; masses not palpable. HEART: Distal heart sounds; some edema. LUNGS: Respiratory rate normal; distant breath sounds. ABDOMEN: Soft, nontender, liver spleen not palpable, no masses palpable. Umbilical hernia PSYCH: Alert and oriented x3; mood and affect normal. LYMPHATICS: lower extremity lymphedema MUSCULAR skeletal: lower extremity with venous iinsufficiency and lymphedema, chronic skin changes Left lower extremity: absent first and second toe, middle toe is inflamed with surrounding erythema., Tender. INVESTIGATIONS, reviewed in the clinical context: August 08: ESR 12 WBC 3.6 hemoglobin 13.2 platelets 100 potassium 3.8 creatinine 0.7 to Coronavirus [PCR]-not detected EKG tracing personally reviewed by me-normal sinus rhythm X-ray for complete left: Osteopenia. Also bone at the tip of the third toe and fourth toe. Soft tissue swelling. Assessment and plan: -left third toe acutely on chronic inflamed, with surrounding areas of redness tenderness. Acute on chronic ostium mellitus Consultation to Dr. Morris from vascular Dr. Hernandez from ID. IV daptomycin. Possible amputation down the road -chronic low back pain, likely from spinal stenosis/herniated disc with radiculopathy and down and affect.-likely from L1-L2 and L3-L4 nerve distribution. -History of Pyoderma gangrenosum -Hyperlipidemia, continue Lipitor -Essential hypertension, continue Zestril and Norvasc -Primary osteoarthritis, pain medications when necessary -Hypothyroid, continue Synthroid -Chronic medical debility uses wheelchair -Idiopathic peripheral neuropathy -Chronic venous stasis -Bilateral lower extremity lymphedema -Chronic urinary stress incontinence -Chronic umbilical hernia -Morbid obesity BMI 42.6 Continue current treatment plan. Continue IV daptomycin
[2020-08-10] MEDS: PANTOPRAZOLE 40 MG TABLET PO SCH (05:54)
[2020-08-10] MEDS: LEVOTHYROXINE 100 MCG TAB PO SCH (06:07)
[2020-08-10 07:17] LABS: African American GFR (CKD) >90 (>60 ml/min/1.73 sqM); Anion Gap 2 mmol/L; Blood Urea Nitrogen 12 mg/dL (7-17); Carbon Dioxide 32 mmol/L (22-30); Chloride 104 mmol/L (98-107); Glucose 83 mg/dL (74-99); Non-African American GFR(CKD) 83 (>60 ml/min/1.73 sqM); Potassium 4.2 mmol/L (3.5-5.1); Sodium 138 mmol/L (137-145)
[2020-08-10 07:30] LABS: Basophils % (A) 1 %; Eosinophils # (A) 0.1 k/uL (0-0.7); Eosinophils % (A) 2 %; HCT 31.6 % (34.0-46.0); Lymphocytes # (A) 0.9 k/uL (1.0-4.8); Lymphocytes % (A) 23 %; MCH 29.5 pg (25.0-35.0); MCHC 31.4 g/dL (31.0-37.0); MCV 93.9 fL (80.0-100.0); Mean Platelet Volume 10.2; Monocytes # (A) 0.3 k/uL (0-1.0); Monocytes % (A) 6 %; Neutrophils # (A) 2.6 k/uL (1.3-7.7); Neutrophils % (A) 66 %; Platelet Count 107 k/uL (150-450); RBC 3.37 m/uL (3.80-5.40); RDW 15.3 % (11.5-15.5)
[2020-08-10 07:38] LABS: HGB 9.9 gm/dL (11.4-16.0)
[2020-08-10] MEDS: TOPIRAMATE 25 MG TAB PO SCH ×2 (08:57→20:59)
[2020-08-10] MEDS: lisinopriL 20 MG TAB PO SCH ×2 (08:57→20:59)
[2020-08-10] MEDS: traMADol 50 MG TAB PO PRN ×3 (08:57→20:57)
[2020-08-10] MEDS: PREGABALIN 100 MG CAP PO SCH ×3 (08:58→20:59)
[2020-08-10] MEDS: PYRIDOXINE 50 MG TAB PO SCH (08:59)
--- NOTE | 2020-08-10 16:09 | PN ---
PROGRESS NOTE This is a 65-year-old white female. Patient has been having recurrent infection in the left foot second toe with osteomyelitis. This is the second admission. Responded to IV antibiotic, but then she had recurrent infection to the third toe. The patient is on IV antibiotic under the care of Infectious Disease. Discussed with the patient. Patient is scheduled to have left foot third toe amputation. Risks and complications were discussed. MMODL / IJN: [id number] /
[2020-08-10] MEDS: DAPTOmycin 500 MG in SODIUM CHLORIDE 0.9% 50 ML IVPB SCH (17:13)
[2020-08-10] MEDS: HYDROmorphone 1 MG/ML 1 ML SYRINGE IVP PRN (20:56)
[2020-08-10] MEDS: ATORVASTATIN 10 MG TAB PO SCH (20:59)
--- NOTE | 2020-08-10 22:03 | PN ---
PROGRESS NOTE DATE OF SERVICE: 08/10/2020 REASON FOR FOLLOWUP: Left third toe osteomyelitis. INTERVAL HISTORY: The patient is afebrile. The patient is breathing comfortably. Denies having any chest pain or shortness of breath or cough. No abdominal pain or any worsening pain to the left third toe. PHYSICAL EXAMINATION: Blood pressure 146/81, pulse of 67, temperature 97.8. She is 97% on room air. General description is an elderly female lying in bed in no distress. RESPIRATORY SYSTEM: Unlabored breathing. Clear to auscultation anteriorly. HEART: S1, S2. Regular rate and rhythm. ABDOMEN: Soft. No tenderness. Left foot is currently dressed up. No obvious drainage on the dressing. LABS: Hemoglobin 9.9, white count 4.0, BUN of 12, creatinine 0.75. DIAGNOSTIC IMPRESSION AND PLAN: Patient with left third toe osteomyelitis, failing outpatient oral antibiotic therapy. Waiting for amputation. Continue with the daptomycin and monitor her clinical course closely. MMODL / IJN: [id number] /
[2020-08-10] MEDS: ACETAMINOPHEN TAB 325 MG TAB PO PRN (22:37)
[2020-08-11] MEDS: HYDROmorphone 1 MG/ML 1 ML SYRINGE IVP PRN ×2 (00:18→20:43)
--- NOTE | 2020-08-11 00:18 | P.PN ---
Progress Note - Text Progress Note Date: 08/11/20 Chief Complaint: Left foot toe pain History of presenting complaint: This is a pleasant 64-year-old patient of Dr. Mcfarlane. Chronic stable medical conditions include idiopathic peripheral neuropathy, morbid obesity, primary osteoarthritis, essential hypertension, hypothyroid, , urinary stress incontinence, chronic venous stasis, hyperlipidemia, bilateral lower extremity lymphedema, pyoderma gangrenosum, chronic low back pain.. uses a wheelchair to get about. Patient recently the hospital for about a week discharged on July 15: Left foot third toe infected. Painful. No fever no chills. Appetite is fair. Started IV daptomycin. Patient's IV daptomycin not covered. For outpatient treatment. Patient did not want to go to the [facility] for IV antibiotics. Apparently her insurance won't,, the IV antibiotics at home. Dr. Morris from vascular and Dr. Brown from ID discussed the case. -Discharged to doxycycline Patient now presents with increasing pain and discomfort redness of the left foot third toe. No fever no chills. Appetite is fair. No diarrhea. Admitted for IV antibiotics and possible amputation. Admitted with acute on chronic left third toe osteomyelitis. Started IV daptomycin Today: Laying in bed. A bit tired. Oral intake fair. Pain control. Review of systems: Was done for constitutional, cardiovascular, GI, pulmonary. relevant finding as above Active Medications Acetaminophen (Acetaminophen Tab 325 Mg Tab) 650 mg PO Q6HR PRN PRN Reason: Mild Pain or Fever > 100.5 Last Admin: 08/10/20 22:37 Dose: 650 mg Documented by: Hydrocodone Bitart/Acetaminophen (Hydrocodone/Apap 7.5-325mg 1 Each Tab) 1 each PO Q6H PRN PRN Reason: Pain Atorvastatin Calcium (Atorvastatin 10 Mg Tab) 10 mg PO HS VENKAT Last Admin: 08/10/20 20:59 Dose: 10 mg Documented by: Hydromorphone HCl (Hydromorphone 1 Mg/Ml 1 Ml Syringe) 1 mg IVP Q3HR PRN PRN Reason: Severe Pain Last Admin: 08/10/20 20:56 Dose: 1 mg Documented by: Daptomycin 500 mg/ Sodium (Chloride) 50 mls @ 100 mls/hr IVPB Q24H VENKAT; Protocol Last Admin: 08/10/20 17:13 Dose: 100 mls/hr Documented by: Levothyroxine Sodium (Levothyroxine 100 Mcg Tab) 100 mcg PO DAILY@0630 [facility] Last Admin: 08/10/20 06:07 Dose: 100 mcg Documented by: Lisinopril (Lisinopril 20 Mg Tab) 20 mg PO BID [facility] Last Admin: 08/10/20 20:59 Dose: 20 mg Documented by: Naloxone HCl (Naloxone 0.4 Mg/Ml 1 Ml Vial) 0.2 mg IV Q2M PRN PRN Reason: Opioid Reversal Pantoprazole Sodium (Pantoprazole 40 Mg Tablet) 40 mg PO AC-BRKFST [facility] Last Admin: 08/10/20 05:54 Dose: Not Given Documented by: Pregabalin (Pregabalin 100 Mg Cap) 100 mg PO TID [facility] Last Admin: 08/10/20 20:59 Dose: 100 mg Documented by: Pyridoxine HCl (Pyridoxine 50 Mg Tab) 50 mg PO DAILY [facility] Last Admin: 08/10/20 08:59 Dose: 50 mg Documented by: Topiramate (Topiramate 25 Mg Tab) 25 mg PO BID [facility] Last Admin: 08/10/20 20:59 Dose: 25 mg Documented by: Tramadol HCl (Tramadol 50 Mg Tab) 50 mg PO Q6H PRN PRN Reason: Moderate Pain Last Admin: 08/10/20 20:57 Dose: 50 mg Documented by: Past medical history: Hyperlipidemia, hypertension, osteoarthritis, hypothyroid, uses wheelchair, peripheral neuropathy, chronic venous stasis, bilateral lower extremity lymphedema, urinary stress incontinence, lymph edema, umbilical hernia, hypothyroid. 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 Alcohol rarely. Physical examination: VITAL SIGNS: 97.8, 67, 16, 146 x 81, 97% room air GENERAL: Laying in bed, comfortable EYES: Pupils equal. Conjunctiva normal. NECK: JVD unable to assess; masses not palpable. HEART: Distal heart sounds; some edema. LUNGS: Respiratory rate normal; distant breath sounds. ABDOMEN: Soft, nontender, liver spleen not palpable, no masses palpable. Umbilical hernia PSYCH: Alert and oriented x3; mood and affect normal. LYMPHATICS: lower extremity lymphedema MUSCULAR skeletal: lower extremity with venous iinsufficiency and lymphedema, chronic skin changes Left lower extremity: absent first and second toe, middle toe is inflamed with surrounding erythema., Tender. INVESTIGATIONS, reviewed in the clinical context: August 10: WBC 4 hemoglobin 9.9 potassium 4.2 creatinine 0.75 August 08: ESR 12 WBC 3.6 hemoglobin 13.2 platelets 100 potassium 3.8 creatinine 0.7 to Coronavirus [PCR]-not detected EKG tracing personally reviewed by me-normal sinus rhythm X-ray for complete left: Osteopenia. Also bone at the tip of the third toe and fourth toe. Soft tissue swelling. Assessment and plan: -left third toe acutely on chronic inflamed, with surrounding areas of redness tenderness. Acute on chronic ostium mellitus Consultation to Dr. Morris from vascular Dr. Hernandez from ID. IV daptomycin. Possible amputation down the road -chronic low back pain, likely from spinal stenosis/herniated disc with radiculopathy and down and affect.-likely from L1-L2 and L3-L4 nerve distribution. -History of Pyoderma gangrenosum -Hyperlipidemia, continue Lipitor -Essential hypertension, continue Zestril and Norvasc -Primary osteoarthritis, pain medications when necessary -Hypothyroid, continue Synthroid -Chronic medical debility uses wheelchair -Idiopathic peripheral neuropathy -Chronic venous stasis -Bilateral lower extremity lymphedema -Chronic urinary stress incontinence -Chronic umbilical hernia -Morbid obesity BMI 42.6 Continue current treatment plan. Continue IV daptomycin
[2020-08-11] MEDS: LEVOTHYROXINE 100 MCG TAB PO SCH (06:20)
[2020-08-11] MEDS: traMADol 50 MG TAB PO PRN ×3 (06:21→23:13)
[2020-08-11] MEDS: PANTOPRAZOLE 40 MG TABLET PO SCH (06:24)
[2020-08-11] MEDS: lisinopriL 20 MG TAB PO SCH ×2 (08:23→21:27)
[2020-08-11] MEDS ORDERED: fentaNYL (PF) 50 MCG/ML 2 ML AMP ONE (10:00)
[2020-08-11] MEDS ORDERED: MIDAZOLAM 2 MG/2 ML VIAL ONE (10:00)
[2020-08-11] MEDS ORDERED: IV FLUID CONTINUATION 500 ML IV ONE (10:00)
[2020-08-11] MEDS ORDERED: LIDOCAINE 1%-EPI 1:100,000 20 ML VIAL SQ ONE ×2 (10:08)
[2020-08-11] MEDS ORDERED: HYDROmorphone 0.5 MG/0.5 ML SYRINGE IVP ONE ×2 (10:45→10:55)
[2020-08-11] MEDS: TOPIRAMATE 25 MG TAB PO SCH ×2 (11:38→21:27)
[2020-08-11] MEDS ORDERED: SODIUM CHLORIDE 0.9% 1,000 ML IV ONE (11:40)
[2020-08-11] MEDS: PYRIDOXINE 50 MG TAB PO SCH (11:44)
[2020-08-11] MEDS: PREGABALIN 100 MG CAP PO SCH ×3 (11:45→23:12)
--- NOTE | 2020-08-11 12:02 | OP ---
OPERATIVE REPORT PREOPERATIVE DIAGNOSIS: Left foot 3rd toe infection with osteomyelitis. PROCEDURE: Left 3rd toe amputation. PROCEDURE IN DETAIL: Patient brought to the operating room. Left foot was prepped and draped by sterile manner. 1% lidocaine was infiltrated and IV sedation. An elliptical incision was made on the dorsal aspect of the foot, went circumferentially around the toe. An incision was extended to the plantar aspect deepened through skin, fat, and fascia. Tendons were divided on the plantar and dorsal aspect until we reached the metatarsophalangeal joint. The toe was removed at the metatarsophalangeal joint and there was some bleeding points which were electrocoagulated. Incision was closed in 2 layers using 3-0 Vicryl and skin was closed with 3-0 nylon with interrupted suture. Dressing applied. Patient tolerated the procedure well. MMODL / IJN: [id number] /
[2020-08-11] MEDS: DAPTOmycin 500 MG in SODIUM CHLORIDE 0.9% 50 ML IVPB SCH (17:48)
--- NOTE | 2020-08-11 19:13 | PN ---
PROGRESS NOTE DATE OF SERVICE: 08/11/2020. REASON FOR FOLLOWUP: Left third toe osteomyelitis. INTERVAL HISTORY: The patient was taken to the OR this morning. The patient is status post left third toe amputation. The patient tolerated the procedure. Complaining of some discomfort and pain after the procedure. The patient denies having any chest pain. No shortness of breath or cough. No abdominal pain or diarrhea. PHYSICAL EXAMINATION: Blood pressure 115/68, pulse of 61, temperature 97.7. She is 99% on room air. General description: The patient is an elderly female lying in bed in no distress. Respiratory system: Unlabored breathing, clear to auscultation anteriorly. Heart S1, S2. Regular rate and rhythm. Abdomen soft, no tenderness. The right foot is currently dressed up. No obvious drainage on the dressing. LABS: Hemoglobin 9.1, white count 4.0, BUN of 12, creatinine 0.75. DIAGNOSTIC IMPRESSION AND PLAN: Patient with left third toe osteomyelitis with nonhealing wound and failing outpatient oral antibiotic therapy, status post amputation. Patient to continue daptomycin and will monitor clinical course closely. MMODL / IJN: [id number] /
[2020-08-11] MEDS: ATORVASTATIN 10 MG TAB PO SCH (21:27)
--- NOTE | 2020-08-11 23:42 | P.PN ---
Progress Note - Text Progress Note Date: 08/11/20 Chief Complaint: Left foot toe pain History of presenting complaint: This is a pleasant 64-year-old patient of Dr. Mcfarlane. Chronic stable medical conditions include idiopathic peripheral neuropathy, morbid obesity, primary osteoarthritis, essential hypertension, hypothyroid, , urinary stress incontinence, chronic venous stasis, hyperlipidemia, bilateral lower extremity lymphedema, pyoderma gangrenosum, chronic low back pain.. uses a wheelchair to get about. Patient recently the hospital for about a week discharged on July 15: Left foot third toe infected. Painful. No fever no chills. Appetite is fair. Started IV daptomycin. Patient's IV daptomycin not covered. For outpatient treatment. Patient did not want to go to the [facility] for IV antibiotics. Apparently her insurance won't,, the IV antibiotics at home. Dr. Morris from vascular and Dr. Brown from ID discussed the case. -Discharged to doxycycline Patient now presents with increasing pain and discomfort redness of the left foot third toe. No fever no chills. Appetite is fair. No diarrhea. Admitted for IV antibiotics and possible amputation. Admitted with acute on chronic left third toe osteomyelitis. Started IV daptomycin Today: Earlier today underwent left third toe amputation. Left foot isn't addressing. Pain control. Laying in bed, reading a book. Review of systems: Was done for constitutional, cardiovascular, GI, pulmonary. relevant finding as above Active Medications Acetaminophen (Acetaminophen Tab 325 Mg Tab) 650 mg PO Q6HR PRN PRN Reason: Mild Pain or Fever > 100.5 Last Admin: 08/10/20 22:37 Dose: 650 mg Documented by: Hydrocodone Bitart/Acetaminophen (Hydrocodone/Apap 7.5-325mg 1 Each Tab) 1 each PO Q6H PRN PRN Reason: Pain Atorvastatin Calcium (Atorvastatin 10 Mg Tab) 10 mg PO HS VENKAT Last Admin: 08/11/20 21:27 Dose: 10 mg Documented by: Hydromorphone HCl (Hydromorphone 1 Mg/Ml 1 Ml Syringe) 1 mg IVP Q3HR PRN PRN Reason: Severe Pain Last Admin: 08/11/20 20:43 Dose: 1 mg Documented by: Daptomycin 500 mg/ Sodium (Chloride) 50 mls @ 100 mls/hr IVPB Q24H VENKAT; Protocol Last Admin: 08/11/20 17:48 Dose: 100 mls/hr Documented by: Levothyroxine Sodium (Levothyroxine 100 Mcg Tab) 100 mcg PO DAILY@0630 [facility] Last Admin: 08/11/20 06:20 Dose: 100 mcg Documented by: Lisinopril (Lisinopril 20 Mg Tab) 20 mg PO BID [facility] Last Admin: 08/11/20 21:27 Dose: 20 mg Documented by: Naloxone HCl (Naloxone 0.4 Mg/Ml 1 Ml Vial) 0.2 mg IV Q2M PRN PRN Reason: Opioid Reversal Pantoprazole Sodium (Pantoprazole 40 Mg Tablet) 40 mg PO AC-BRKFST [facility] Last Admin: 08/11/20 06:24 Dose: Not Given Documented by: Pregabalin (Pregabalin 100 Mg Cap) 100 mg PO TID [facility] Last Admin: 08/11/20 23:12 Dose: 100 mg Documented by: Pyridoxine HCl (Pyridoxine 50 Mg Tab) 50 mg PO DAILY [facility] Last Admin: 08/11/20 11:44 Dose: 50 mg Documented by: Topiramate (Topiramate 25 Mg Tab) 25 mg PO BID [facility] Last Admin: 08/11/20 21:27 Dose: 25 mg Documented by: Tramadol HCl (Tramadol 50 Mg Tab) 50 mg PO Q6H PRN PRN Reason: Moderate Pain Last Admin: 08/11/20 23:13 Dose: 50 mg Documented by: Past medical history: Hyperlipidemia, hypertension, osteoarthritis, hypothyroid, uses wheelchair, peripheral neuropathy, chronic venous stasis, bilateral lower extremity lymphedema, urinary stress incontinence, lymph edema, umbilical hernia, hypothyroid. 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 Alcohol rarely. Physical examination: VITAL SIGNS: 97.7, 61, 18, 115/68, 99% room air GENERAL: Laying in bed, comfortable EYES: Pupils equal. Conjunctiva normal. NECK: JVD unable to assess; masses not palpable. HEART: Distal heart sounds; some edema. LUNGS: Respiratory rate normal; distant breath sounds. ABDOMEN: Soft, nontender, liver spleen not palpable, no masses palpable. Umbilical hernia PSYCH: Alert and oriented x3; mood and affect normal. LYMPHATICS: lower extremity lymphedema MUSCULAR skeletal: lower extremity with venous iinsufficiency and lymphedema, chronic skin changes Left lower extremity: absent first and second toe, dressing over the amputation site INVESTIGATIONS, reviewed in the clinical context: August 10: WBC 4 hemoglobin 9.9 potassium 4.2 creatinine 0.75 August 08: ESR 12 WBC 3.6 hemoglobin 13.2 platelets 100 potassium 3.8 creatinine 0.7 to Coronavirus [PCR]-not detected EKG tracing personally reviewed by me-normal sinus rhythm X-ray for complete left: Osteopenia. Also bone at the tip of the third toe and fourth toe. Soft tissue swelling. Assessment and plan: -left third toe acutely on chronic inflamed, with surrounding areas of redness tenderness. Acute on chronic osteomyelitis amputation done on August [address] Morris from vascular -chronic low back pain, likely from spinal stenosis/herniated disc with radiculopathy and down and affect.-likely from L1-L2 and L3-L4 nerve distribution. -History of Pyoderma gangrenosum -Hyperlipidemia, continue Lipitor -Essential hypertension, continue Zestril and Norvasc -Primary osteoarthritis, pain medications when necessary -Hypothyroid, continue Synthroid -Chronic medical debility uses wheelchair -Idiopathic peripheral neuropathy -Chronic venous stasis -Bilateral lower extremity lymphedema -Chronic urinary stress incontinence -Chronic umbilical hernia -Morbid obesity BMI 42.6 Discussed with patient.
[2020-08-12] MEDS: HYDROmorphone 1 MG/ML 1 ML SYRINGE IVP PRN ×2 (01:58→06:38)
[2020-08-12] MEDS: LEVOTHYROXINE 100 MCG TAB PO SCH (06:34)
[2020-08-12] MEDS: traMADol 50 MG TAB PO PRN ×2 (06:37→16:11)
[2020-08-12] MEDS: PANTOPRAZOLE 40 MG TABLET PO SCH (08:33)
[2020-08-12] MEDS: lisinopriL 20 MG TAB PO SCH ×2 (08:59→20:29)
[2020-08-12] MEDS: PREGABALIN 100 MG CAP PO SCH ×3 (08:59→20:28)
[2020-08-12] MEDS: TOPIRAMATE 25 MG TAB PO SCH ×2 (08:59→20:29)
[2020-08-12] MEDS: PYRIDOXINE 50 MG TAB PO SCH (09:00)
[2020-08-12] MEDS: HYDROcodone/APAP 7.5-325MG 1 EACH TAB PO PRN ×2 (11:06→20:28)
[2020-08-12] MEDS: DAPTOmycin 500 MG in SODIUM CHLORIDE 0.9% 50 ML IVPB SCH (17:56)
[2020-08-12] MEDS: ACETAMINOPHEN TAB 325 MG TAB PO PRN (18:07)
--- NOTE | 2020-08-12 18:57 | PN ---
PROGRESS NOTE DATE OF SERVICE: 08/12/2020 REASON FOR FOLLOWUP: Left third toe osteomyelitis. INTERVAL HISTORY: The patient is currently afebrile. The patient is breathing comfortably. The patient did have occasional pain to the left foot especially when she walks on it. No chest pain, shortness of breath, cough, abdominal pain or diarrhea. PHYSICAL EXAMINATION: Blood pressure 119/67, pulse is 68, temperature 98.1. She is 95% on room air. General description: The patient is an elderly female lying in bed in no distress. Respiratory system: Unlabored breathing, clear to auscultation anteriorly. Heart S1, S2. Regular rate and rhythm. Abdomen soft, no tenderness. Left foot is currently dressed up. No obvious drainage on the dressing. LABS: No new labs have been obtained today. Cultures from 08/11 have been negative so far. DIAGNOSTIC IMPRESSION AND PLAN: Patient with left third toe osteomyelitis status post amputation with infected part removed. The patient not bacteremic. She will not need IV antibiotics on discharge. Possible mg twice a day for a week and close outpatient followup. MMODL / IJN: [id number] /
[2020-08-12] MEDS: ATORVASTATIN 10 MG TAB PO SCH (20:29)
--- NOTE | 2020-08-12 23:52 | P.PN ---
Progress Note - Text Progress Note Date: 08/12/20 Chief Complaint: Left foot toe pain History of presenting complaint: This is a pleasant 64-year-old patient of Dr. Mcfarlane. Chronic stable medical conditions include idiopathic peripheral neuropathy, morbid obesity, primary osteoarthritis, essential hypertension, hypothyroid, , urinary stress incontinence, chronic venous stasis, hyperlipidemia, bilateral lower extremity lymphedema, pyoderma gangrenosum, chronic low back pain.. uses a wheelchair to get about. Patient recently the hospital for about a week discharged on July 15: Left foot third toe infected. Painful. No fever no chills. Appetite is fair. Started IV daptomycin. Patient's IV daptomycin not covered. For outpatient treatment. Patient did not want to go to the [facility] for IV antibiotics. Apparently her insurance won't,, the IV antibiotics at home. Dr. Morris from vascular and Dr. Brown from ID discussed the case. -Discharged to doxycycline Patient now presents with increasing pain and discomfort redness of the left foot third toe. No fever no chills. Appetite is fair. No diarrhea. Admitted for IV antibiotics and possible amputation. Admitted with acute on chronic left third toe osteomyelitis. Started IV daptomycin. August 11: Left third toe amputation Today: Comfortable. No new issues. Pain control. Review of systems: Was done for constitutional, cardiovascular, GI, pulmonary. relevant finding as above Active Medications Acetaminophen (Acetaminophen Tab 325 Mg Tab) 650 mg PO Q6HR PRN PRN Reason: Mild Pain or Fever > 100.5 Last Admin: 08/12/20 18:07 Dose: 650 mg Documented by: Hydrocodone Bitart/Acetaminophen (Hydrocodone/Apap 7.5-325mg 1 Each Tab) 1 each PO Q6H PRN PRN Reason: Pain Last Admin: 08/12/20 20:28 Dose: 1 each Documented by: Atorvastatin Calcium (Atorvastatin 10 Mg Tab) 10 mg PO HS VENKAT Last Admin: 08/12/20 20:29 Dose: 10 mg Documented by: Hydromorphone HCl (Hydromorphone 1 Mg/Ml 1 Ml Syringe) 1 mg IVP Q3HR PRN PRN Reason: Severe Pain Last Admin: 08/12/20 06:38 Dose: 1 mg Documented by: Daptomycin 500 mg/ Sodium (Chloride) 50 mls @ 100 mls/hr IVPB Q24H VENKAT; Protocol Last Admin: 08/12/20 17:56 Dose: 100 mls/hr Documented by: Levothyroxine Sodium (Levothyroxine 100 Mcg Tab) 100 mcg PO DAILY@0630 [facility] Last Admin: 08/12/20 06:34 Dose: 100 mcg Documented by: Lisinopril (Lisinopril 20 Mg Tab) 20 mg PO BID [facility] Last Admin: 08/12/20 20:29 Dose: 20 mg Documented by: Naloxone HCl (Naloxone 0.4 Mg/Ml 1 Ml Vial) 0.2 mg IV Q2M PRN PRN Reason: Opioid Reversal Pantoprazole Sodium (Pantoprazole 40 Mg Tablet) 40 mg PO AC-BRKFST [facility] Last Admin: 08/12/20 08:33 Dose: Not Given Documented by: Pregabalin (Pregabalin 100 Mg Cap) 100 mg PO TID [facility] Last Admin: 08/12/20 20:28 Dose: 100 mg Documented by: Pyridoxine HCl (Pyridoxine 50 Mg Tab) 50 mg PO DAILY [facility] Last Admin: 08/12/20 09:00 Dose: 50 mg Documented by: Topiramate (Topiramate 25 Mg Tab) 25 mg PO BID [facility] Last Admin: 08/12/20 20:29 Dose: 25 mg Documented by: Tramadol HCl (Tramadol 50 Mg Tab) 50 mg PO Q6H PRN PRN Reason: Moderate Pain Last Admin: 08/12/20 16:11 Dose: 50 mg Documented by: Past medical history: Hyperlipidemia, hypertension, osteoarthritis, hypothyroid, uses wheelchair, peripheral neuropathy, chronic venous stasis, bilateral lower extremity lymphedema, urinary stress incontinence, lymph edema, umbilical hernia, hypothyroid. 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 Alcohol rarely. Physical examination: VITAL SIGNS: 98.1, 68, 18, 118/67, 95% room air GENERAL: Sitting up comfortable EYES: Pupils equal. Conjunctiva normal. NECK: JVD unable to assess; masses not palpable. HEART: Distal heart sounds; some edema. LUNGS: Respiratory rate normal; distant breath sounds. ABDOMEN: Soft, nontender, liver spleen not palpable, no masses palpable. Umbilical hernia PSYCH: Alert and oriented x3; mood and affect normal. LYMPHATICS: lower extremity lymphedema MUSCULAR skeletal: lower extremity with venous iinsufficiency and lymphedema, chronic skin changes Left lower extremity: absent first and second toe, dressing over the amputation site INVESTIGATIONS, reviewed in the clinical context: August 10: WBC 4 hemoglobin 9.9 potassium 4.2 creatinine 0.75 August 08: ESR 12 WBC 3.6 hemoglobin 13.2 platelets 100 potassium 3.8 creatinine 0.7 to Coronavirus [PCR]-not detected EKG tracing personally reviewed by me-normal sinus rhythm X-ray for complete left: Osteopenia. Also bone at the tip of the third toe and fourth toe. Soft tissue swelling. Assessment and plan: -left third toe acutely on chronic inflamed, with surrounding areas of redness tenderness. Acute on chronic osteomyelitis amputation done on August [address] Morris from vascular -chronic low back pain, likely from spinal stenosis/herniated disc with radiculopathy and down and affect.-likely from L1-L2 and L3-L4 nerve distribution. -History of Pyoderma gangrenosum -Hyperlipidemia, continue Lipitor -Essential hypertension, continue Zestril and Norvasc -Primary osteoarthritis, pain medications when necessary -Hypothyroid, continue Synthroid -Chronic medical debility uses wheelchair -Idiopathic peripheral neuropathy -Chronic venous stasis -Bilateral lower extremity lymphedema -Chronic urinary stress incontinence -Chronic umbilical hernia -Morbid obesity BMI 42.[address] Morris from vascular. Hopefully patient can be discharged tomorrow. Antibiotics per Dr. Brown.
[2020-08-13] MEDS: PREGABALIN 100 MG CAP PO SCH (07:47)
[2020-08-13] MEDS: TOPIRAMATE 25 MG TAB PO SCH (07:47)
[2020-08-13] MEDS: PYRIDOXINE 50 MG TAB PO SCH (07:48)
[2020-08-13] MEDS: LEVOTHYROXINE 100 MCG TAB PO SCH (07:48)
[2020-08-13] MEDS: PANTOPRAZOLE 40 MG TABLET PO SCH (07:48)
[2020-08-13] MEDS: lisinopriL 20 MG TAB PO SCH (07:48)
[2020-08-13] MEDS: HYDROcodone/APAP 7.5-325MG 1 EACH TAB PO PRN ×2 (07:51→14:42)
--- NOTE | 2020-08-13 11:50 | XR ---
EXAMINATION TYPE: XR chest 1V DATE OF EXAM: 08/13/2020 COMPARISON: 07/09/2020 HISTORY: 65-year-old female with cough TECHNIQUE: Single frontal view of the chest is obtained. FINDINGS: Heart normal size. Aorta and pulmonary vasculature within normal limits. There is some interstitial p rominence throughout, unchanged from prior. Mild patchy right basilar opacity. No other consolidation or pleural effusion. Loss of the subacromial space on the right suggesting chronic full-thickness ro tator cuff tear. IMPRESSION: Chronic changes, possible bronchitis or chronic asthma. Minimal opacity at the right base probably at electasis.
[2020-08-13 11:55] VITALS: BMI 43.7
[2020-08-13 14:22] VITALS: BP 166/77; PULSE 86; RESP 18; TEMP 98.3
--- NOTE | 2020-08-13 15:44 | P.PN ---
Progress Note - Text 65-year-old diabetic female patient had a left foot third toe amputation patient had history of diabetes obesity patient is under care of infectious disease his IV antibiotic today we have changed her dressing incision site is healing slight redness noted patient on by mouth antibiotic patient is going home today we'll follow in the wound clinic next Thursday advise continue with antibiotic and nonweightbearing
--- NOTE | 2020-08-13 16:28 | CDI ---
Documentation Clarification Form Date: 08/13/2020 04:19:08 PM From: Anamaria Scanlon CCS, CCDS Admit Date: 08/06/2020 06:30:00 PM Patient Name: Darling Spicer Visit Number: [id number] Discharge Date: ATTENTION: The Clinical Documentation Specialists (CDI) and [facility] Coding Staff appreciate your assistance in clarifying documentation. Please respond to the clarification below the line at the bottom and electronically sign. The CDI & [facility] Coding staff will review the response and follow-up if needed. Please note: Queries are made part of the Legal Health Record. If you have any questions, please contact the author of this message via ITS. Dr. Tal Magallanes: Unspecified anemia is documented in the 08/06 ED Note and the 08/07 History & Physical without further specificity. Additional specificity regarding the type & acuity of anemia is requested. History/Risk Factors per the 08/07 H/P Presenting History: Idiopathic peripheral neuropathy, Morbid Obesity, BMI >40, Osteoarthritis, Essential Hypertension, Hypothyroidism, Urinary Incontinence, Chronic venous stasis, Hyperlipidemia, Bilateral lower extremity lymphedema, Pyoderma gangrenosum, Chronic low back pain. Former smoker. Clinical indicators: Presented to the ED on 08/06 with infection in left third toe. 08/11 Procedure Note: Left foot 3rd toe infection with osteomyelitis. Procedure: Left 3rd toe amputation. 08/06 Hemoglobin: 13.2, 08/10: 9.9 08/06 Hematocrit: 42.3, 08/10: 31.6 Treatment 08/06: IV Dilaudid, IV fluid 1,000 mls @ 20 mls/hr q14H, po Ultram, IV Daptomycin Home Meds: Topamax, Zestril, Vit B6, Lyrica, Synthroid, orco, Lipitor, Doxycycline Hyclate Please clarify the type and acuity of anemia: [ ] Acute blood loss anemia [ ] Acute on chronic blood loss anemia [ ] Chronic blood loss anemia [ ] Hemolytic anemia [ ] Drug induced anemia [ ] Nutritional anemia [ ] Anemia of chronic disease [ ] Unable to determine [ ] Other, please specify (Template Last Revised: May 2020) Anemia of chronic disease MTDD
--- NOTE | 2020-08-13 17:18 | PN ---
PROGRESS NOTE DATE OF SERVICE: 08/13/2020 REASON FOR FOLLOWUP: Left third toe osteomyelitis. INTERVAL HISTORY: The patient was seen on rounds this morning. The patient has been afebrile. The patient has been complaining of dry hacking cough since yesterday. No shortness of breath, though. No need for supplemental oxygen. Denies having any vomiting, abdominal pain or pain to the left third toe amputation site. PHYSICAL EXAMINATION: Her blood pressure is 166/77 with a pulse of 83, temperature 98.3. She is 96% on room air. General description is an elderly female lying in bed in no distress. RESPIRATORY SYSTEM: Unlabored breathing. Clear to auscultation. HEART: S1, S2. Regular rate and rhythm. ABDOMEN: Soft. No tenderness. LABS: No new labs have been obtained today. DIAGNOSTIC IMPRESSION AND PLAN: Patient with left third toe osteomyelitis, status post amputation with infected part removed, and the patient was not bacteremic. Antibiotic will be transitioned to oral doxycycline 100 mg twice a day for a week and close outpatient followup. MMODL / IJN: [id number] /
--- NOTE | 2020-08-14 16:58 | P.DS ---
Providers Date of admission: 08/06/20 18:30 Expected date of discharge: 08/13/20 Attending physician: Tal Magallanes Consults: 08/06/20 18:31 Consult Physician Routine Consulting Provider: Thea Hernandez Consult Reason/Comments: Foot infection Do you want consulting provider notified?: Yes Consult Physician Urgent Consulting Provider: Luis E Danielson Consult Reason/Comments: Foot infection Do you want consulting provider notified?: Already Contacted Primary care physician: [facility] Course: Chief Complaint: Left foot toe pain History of presenting complaint: This is a pleasant 64-year-old patient of Dr. Mcfarlane. Chronic stable medical conditions include idiopathic peripheral neuropathy, morbid obesity, primary osteoarthritis, essential hypertension, hypothyroid, , urinary stress incontinence, chronic venous stasis, hyperlipidemia, bilateral lower extremity lymphedema, pyoderma gangrenosum, chronic low back pain.. uses a wheelchair to get about. Patient recently the hospital for about a week discharged on July 15: Left foot third toe infected. Painful. No fever no chills. Appetite is fair. Started IV daptomycin. Patient's IV daptomycin not covered. For outpatient treatment. Patient did not want to go to the [facility] for IV antibiotics. Apparently her insurance won't,, the IV antibiotics at home. Dr. Morris from vascular and Dr. Brown from ID discussed the case. -Discharged to doxycycline Patient now presents with increasing pain and discomfort redness of the left foot third toe. No fever no chills. Appetite is fair. No diarrhea. Admitted for IV antibiotics and possible amputation. Admitted with acute on chronic left third toe osteomyelitis. Started IV daptomycin. August 11: Left third toe amputation-by Dr. Morris Today: Doing well. Pain control. No new issues. Discussed with Dr. Hernandez from ID. Complete a course of oral daptomycin. Patient follows at the wound care center with Dr. Danielson Consultation: Dr. Danielson from vascular Dr. Hernandez from ID Past medical history: Hyperlipidemia, hypertension, osteoarthritis, hypothyroid, uses wheelchair, peripheral neuropathy, chronic venous stasis, bilateral lower extremity lymphedema, urinary stress incontinence, lymph edema, umbilical hernia, hypothyroid. 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 Alcohol rarely. Physical examination: VITAL SIGNS: 98.3, 86, 18, 1 5584, 97% room air GENERAL: Sitting up comfortable EYES: Pupils equal. Conjunctiva normal. NECK: JVD unable to assess; masses not palpable. HEART: Distal heart sounds; some edema. LUNGS: Respiratory rate normal; distant breath sounds. ABDOMEN: Soft, nontender, liver spleen not palpable, no masses palpable. Umbilical hernia PSYCH: Alert and oriented x3; mood and affect normal. LYMPHATICS: lower extremity lymphedema MUSCULAR skeletal: lower extremity with venous iinsufficiency and lymphedema, chronic skin changes Left lower extremity: absent first and second toe, dressing over the amputation site INVESTIGATIONS, reviewed in the clinical context: August 10: WBC 4 hemoglobin 9.9 potassium 4.2 creatinine 0.75 August 08: ESR 12 WBC 3.6 hemoglobin 13.2 platelets 100 potassium 3.8 creatinine 0.7 to Coronavirus [PCR]-not detected EKG tracing personally reviewed by me-normal sinus rhythm X-ray for complete left: Osteopenia. Also bone at the tip of the third toe and fourth toe. Soft tissue swelling. Assessment and plan: -left third toe acutely on chronic inflamed, with surrounding areas of redness tenderness. Acute on chronic osteomyelitis amputation done on August [address] Danielson from vascular. Patient to follow-up with wound care lab -chronic low back pain, likely from spinal stenosis/herniated disc with radiculopathy and down and affect.-likely from L1-L2 and L3-L4 nerve distribution. -History of Pyoderma gangrenosum -Hyperlipidemia, continue Lipitor -Essential hypertension, continue Zestril and Norvasc -Primary osteoarthritis, pain medications when necessary -Hypothyroid, continue Synthroid -Chronic medical debility uses wheelchair -Idiopathic peripheral neuropathy -Chronic venous stasis -Bilateral lower extremity lymphedema -Chronic urinary stress incontinence -Chronic umbilical hernia -Morbid obesity BMI 42.6 -Anemia of chronic disease Disposition: Home Plan - Discharge Summary Discharge Rx Participant: Yes New Discharge Prescriptions: New Doxycycline Hyclate 100 mg PO BID 7 Days #14 tab Continue Levothyroxine Sodium [Synthroid] 100 mcg PO DAILY Atorvastatin Calcium [Lipitor] 10 mg PO HS Pregabalin [Lyrica] 100 mg PO TID HYDROcodone/APAP 7.5-325MG [Adel 7.5-325] 1 tab PO Q6H PRN PRN Reason: Pain Pyridoxine [Vitamin B-6] 50 mg PO DAILY #60 tab Topiramate [Topamax] 25 mg PO BID #60 tab lisinopriL [Zestril] 20 mg PO BID Discharge Medication List Levothyroxine Sodium [Synthroid] 100 mcg PO DAILY 08/29/13 [History] Atorvastatin Calcium [Lipitor] 10 mg PO HS 10/06/18 [History] Pregabalin [Lyrica] 100 mg PO TID 02/03/19 [History] HYDROcodone/APAP 7.5-325MG [Adel 7.5-325] 1 tab PO Q6H PRN 03/18/19 [History] Pyridoxine [Vitamin B-6] 50 mg PO DAILY #60 tab 07/18/20 [Rx] Topiramate [Topamax] 25 mg PO BID #60 tab 07/19/20 [Rx] lisinopriL [Zestril] 20 mg PO BID 08/06/20 [History] Doxycycline Hyclate 100 mg PO BID 7 Days #14 tab 08/13/20 [Rx] Follow up Appointment(s)/Referral(s): Adonis Mcfarlane DO [Primary Care Provider] - 08/15/20 2:20 pm [facility], [NON-STAFF] - Luis E Danielson MD [STAFF PHYSICIAN] - 08/20/20 10:00 am Patient Instructions/Handouts: Toe Amputation (DC) Activity/Diet/Wound Care/Special Instructions: wound care and follow up with dr danielson
== END 2020-08-13 16:47 | disposition home or self-care (01) | DRG 504 ==
LOC: EC 15:12 → 6NMEDSUR 18:30 → 1SOBS 18:40 → 6PED 08-07 16:31
PROVIDERS: ADMIT Hospitalist; ATTEND Hospitalist
PROC: 0Y6U0Z0 Detachment at Left 3rd Toe, Complete, Open Approach (ICD-10-PCS; principal; 2020-08-11 10:00)
DX: M86.172 Other acute osteomyelitis, left ankle and foot (principal); L03.116 Cellulitis of left lower limb; L88 Pyoderma gangrenosum; Z68.41 Body mass index [BMI] 40.0-44.9, adult; B95.62 Methicillin resistant Staphylococcus aureus infection as the cause of diseases classified elsewhere; D63.8 Anemia in other chronic diseases classified elsewhere; M86.672 Other chronic osteomyelitis, left ankle and foot; D72.819 Decreased white blood cell count, unspecified; E03.9 Hypothyroidism, unspecified; E66.01 Morbid (severe) obesity due to excess calories; E78.5 Hyperlipidemia, unspecified; F32.9 Major depressive disorder, single episode, unspecified; G60.9 Hereditary and idiopathic neuropathy, unspecified; G89.29 Other chronic pain; I10 Essential (primary) hypertension; I87.8 Other specified disorders of veins; I89.0 Lymphedema, not elsewhere classified; K42.9 Umbilical hernia without obstruction or gangrene; M19.91 Primary osteoarthritis, unspecified site; M48.061 Spinal stenosis, lumbar region without neurogenic claudication; M54.16 Radiculopathy, lumbar region; N39.3 Stress incontinence (female) (male); Z79.890 Hormone replacement therapy; Z79.899 Other long term (current) drug therapy; Z80.1 Family history of malignant neoplasm of trachea, bronchus and lung; Z80.42 Family history of malignant neoplasm of prostate; Z82.49 Family history of ischemic heart disease and other diseases of the circulatory system; Z87.891 Personal history of nicotine dependence; Z89.412 Acquired absence of left great toe; Z89.422 Acquired absence of other left toe(s); Z20.822 Contact with and (suspected) exposure to COVID-19; Z99.3 Dependence on wheelchair; Z87.440 Personal history of urinary (tract) infections; Z98.51 Tubal ligation status; Z90.49 Acquired absence of other specified parts of digestive tract; Z86.14 Personal history of Methicillin resistant Staphylococcus aureus infection; Z88.1 Allergy status to other antibiotic agents; Z88.2 Allergy status to sulfonamides
CPT/HCPCS: 71045; 80048; 80053; 83605; 85025; 85610; 85652; 85730; 87040; 87070; 87075; 87205; 87635; 88305; 88311; 93005; 99284

== ENCOUNTER 2020-08-21 16:06 | Emergency (ER) | payer MEDICARE ==
[2020-08-21 16:24] VITALS: RESP 18
[2020-08-21 16:39] LABS: Basophils % (A) 1 %; Eosinophils % (A) 0 %; HCT 37.8 % (34.0-46.0); HGB 12.1 gm/dL (11.4-16.0); Lymphocytes # (A) 0.4 k/uL (1.0-4.8); Lymphocytes % (A) 18 %; MCH 29.3 pg (25.0-35.0); MCV 91.5 fL (80.0-100.0); Mean Platelet Volume 10.6; Monocytes # (A) 0.2 k/uL (0-1.0); Monocytes % (A) 10 %; Neutrophils # (A) 1.6 k/uL (1.3-7.7); Neutrophils % (A) 69 %; Platelet Count 117 k/uL (150-450); RBC 4.13 m/uL (3.80-5.40); RDW 15.1 % (11.5-15.5); WBC 2.3 k/uL (3.8-10.6)
[2020-08-21 16:49] LABS: Calcium 9.3 mg/dL (8.4-10.2); Potassium 4.4 mmol/L (3.5-5.1)
--- NOTE | 2020-08-21 16:59 | ED ---
General Adult HPI - General Chief complaint: Nausea/Vomiting/Diarrhea Stated complaint: Nausea Time Seen by Provider: 08/21/20 16:28 Source: EMS Mode of arrival: EMS Limitations: physical limitation - History of Present Illness Initial comments: Dictation was produced using [employer] dictation software. please excuse any grammatical, word or spelling errors. This patient was cared for during a federal and state declared state of emergency secondary to Covid 19 Chief Complaint: 65-year-old female with past medical history of dyslipidemia, hypertension presents to the emergency department for shortness breath, cough, poor appetite, fevers and anosmia History of Present Illness: Patient is a 65-year-old female. Approximately 3 weeks ago patient had the [employer] COVID-19 vaccine. Over the last 5 days she's been experiencing symptoms of COVID-19. She reports her symptoms are cough, poor appetite, fevers and anosmia. She is exposed to her friend who tested positive for COVID-19 currently admitted to a rehab facility. Patient states she's been feeling like her symptoms aren't improving. She denies any history of respiratory issues. She called EMS and was brought to the emergency department. Patient lives at home by herself. The ROS documented in this emergency department record has been reviewed and confirmed by me. Those systems with pertinent positive or negative responses have been documented in the HPI. All other systems are other negative and/or noncontributory. PHYSICAL EXAM: General Impression: Alert and oriented x3, not in acute distress HEENT: Normocephalic atraumatic, extra-ocular movements intact, pupils equal and reactive to light bilaterally, mucous membranes moist. Cardiovascular: Heart regular rate and rhythm Chest: Able to complete full sentences, no retractions, no tachypnea Abdomen: abdomen soft, non-tender, non-distended, no organomegaly Musculoskeletal: Pulses present and equal in all extremities, no peripheral edema Motor: no focal deficits noted Neurological: CN II-XII grossly intact, no focal motor or sensory deficits noted Skin: Intact with no visualized rashes Psych: Normal affect and mood ED course: 65-year-old female presents with symptoms of COVID-19. As upon arrival shows low-grade temp for 99.4, rest of vital signs within acceptable limits. EKG interpretation: Ventricular rate 71, sinus rhythm. QRS 48, QTC 378. No NC prolongation, no QTC prolongation, no ST or T-wave changes noted. EKG compared to 08/06/2020 showing no changes. Overall, this EKG is unremarkable Laboratory evaluation obtained. Leukopenia at 2.3. Leukocytopenia 0.4. Metabolic panel is unremarkable. Patient positive for coronavirus. Chest x-ray shows crease lung markings concerning for acute interstitial pneumonia. Patient reevaluated at bedside at approximately 5:50 PM. Patient continues to not be hypoxic. She is not requiring any O2 supplementation. Patient a candidate for monoclonal antibodies. Patient agrees to infusion. She'll be infused, observed for one hour and then discharged. - Related Data Home Medications Medication Instructions Recorded Confirmed Levothyroxine Sodium [Synthroid] 100 mcg PO DAILY 08/29/13 08/06/20 Atorvastatin Calcium [Lipitor] 10 mg PO HS 10/06/18 08/06/20 Pregabalin [Lyrica] 100 mg PO TID 02/03/19 08/06/20 HYDROcodone/APAP 7.5-325MG [[place] 1 tab PO Q6H PRN 03/18/19 08/06/20 7.5-325] lisinopriL [Zestril] 20 mg PO BID 08/06/20 08/06/20 Previous Rx's Medication Instructions Recorded Pyridoxine [Vitamin B-6] 50 mg PO DAILY #60 tab 07/18/20 Topiramate [Topamax] 25 mg PO BID #60 tab 07/19/20 Doxycycline Hyclate 100 mg PO BID 7 Days #14 tab 08/13/20 Allergies Allergy/AdvReac Type Severity Reaction Status Date / Time Sulfa (Sulfonamide Allergy Rash/Hives Verified 08/21/20 16:24 Antibiotics) vancomycin Allergy Rash/Hives Verified 08/21/20 16:24 levofloxacin [From Levaquin] AdvReac Itching Verified 08/21/20 16:24 Review of Systems ROS Statement: Those systems with pertinent positive or pertinent negative responses have been documented in the HPI. ROS Other: All systems not noted in ROS Statement are negative. Past Medical History Past Medical History: Hyperlipidemia, Hypertension, Osteoarthritis (OA), Skin Disorder, Thyroid Disorder Additional Past Medical History / Comment(s): Nonambulatory/pivots to wheelchair normally, low back pain, neuropathy bilateral feet, chronic venous stasis, past L heel/L posterior yost/left second toe wounds, past L 2nd toe osteomyelitis-now amptuated, L great toe amptutated; current L 3rd digit wound and pt states suspected osteomyelitis, bilateral leg cellulitis, lymphedema left leg, past R ankle fracture x3, UTIs, urinary stress incontinence, chronic anemia, umbilical hernia, hypothyroid, pyoderma gangrenosum, 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 History of Any Multi-Drug Resistant Organisms: MRSA, VRE, VRE Date of last positivie culture/infection: 05/06/19-VRE 04/07/20 mrsa MDRO Source:: Left Foot-VRE, Left Foot and Leg MRSA Past Surgical History: Section, Cholecystectomy, Orthopedic Surgery, Tubal Ligation Additional Past Surgical History / Comment(s): L leg I&D, bilateral knee arthroscopies, L great toe and 2nd toe amp d/t nonhealing wounds, PICCS, midlines, D&Cs, let third toe removal, Past Anesthesia/Blood Transfusion Reactions: Previous Problems w/ Anesthesia Additional Past Anesthesia/Blood Transfusion Reaction / Comment(s): Slow to come out of it/muscle weakness Past Psychological History: Depression Smoking Status: Former smoker Past Alcohol Use History: None Reported Past Drug Use History: None Reported - Past Family History Father Family Medical History: Cancer, Coronary Artery Disease (CAD), Myocardial Infarction (CA), Prostate Disorder Additional Family Medical History / Comment(s): Prostate CA. Father in a MVA at the age of 80yrs. Mother Family Medical History: Cancer, CVA/TIA, Hyperlipidemia Additional Family Medical History / Comment(s): Lung CA-left lobe removed. General Exam Limitations: physical limitation Course Vital Signs 08/21/20 08/21/20 08/21/20 16:11 19:27 20:00 Temperature 99.4 F 101.3 F H Pulse Rate 76 75 75 Respiratory 18 18 18 Rate Blood Pressure 127/62 105/58 105/58 O2 Sat by Pulse 97 99 95 Oximetry Medical Decision Making - Lab Data Result diagrams: 08/21/20 16:31 08/21/20 16:31 Lab Results 08/21/20 08/21/20 08/21/20 Range/Units 16:31 16:31 16:31 WBC 2.3 L (3.8-10.6) k/uL RBC 4.13 (3.80-5.40) m/uL Hgb 12.1 (11.4-16.0) gm/dL Hct 37.8 (34.0-46.0) % MCV 91.5 (80.0-100.0) fL MCH 29.3 (25.0-35.0) pg MCHC 32.0 (31.0-37.0) g/dL RDW 15.1 (11.5-15.5) % Plt Count 117 L (150-450) k/uL MPV 10.6 Neutrophils % 69 % Lymphocytes % 18 % Monocytes % 10 % Eosinophils % 0 % Basophils % 1 % Neutrophils # 1.6 (1.3-7.7) k/uL Lymphocytes # 0.4 L (1.0-4.8) k/uL Monocytes # 0.2 (0-1.0) k/uL Eosinophils # 0.0 (0-0.7) k/uL Basophils # 0.0 (0-0.2) k/uL Sodium 142 (137-145) mmol/L Potassium 4.4 (3.5-5.1) mmol/L Chloride 108 H (98-107) mmol/L Carbon Dioxide 23 (22-30) mmol/L Anion Gap 11 mmol/L BUN 16 (7-17) mg/dL Creatinine 0.93 (0.52-1.04) mg/dL Est GFR (CKD-EPI)AfAm 75 (>60 ml/min/1.73 sqM) Est GFR (CKD-EPI)NonAf 65 (>60 ml/min/1.73 sqM) Glucose 84 (74-99) mg/dL Calcium 9.3 (8.4-10.2) mg/dL Influenza Type A (PCR) Not Detected (Not Detectd) Influenza Type B (PCR) Not Detected (Not Detectd) RSV (PCR) Not Detected (Not Detectd) SARS-CoV-2 (PCR) Detected A (Not Detectd) Disposition Clinical Impression: COVID-19 Disposition: HOME SELF-CARE Condition: Good Instructions (If sedation given, give patient instructions): Coronavirus Disease 2019 (COVID-19) Additional Instructions: Today you were evaluated for symptoms consistent with upper respiratory infectio n. Today you tested positive for Covid 19. Your are stable for discharge, however it is instructed to to seek immediate medical attention especially if you develop worsening symptoms especially respiratory distress. If possible, try to obtain a pulse oximeter and monitor your oxygen at home. In the meantime please remain in quarantine for 14 days. For any other questions please contact Jeannine for here in emergency department or [facility] at [phone] Is patient prescribed a controlled substance at d/c from ED?: No Referrals: Adonis Mcfarlane DO [Primary Care Provider] - 1-2 days Time of Disposition: 20:37
--- NOTE | 2020-08-21 17:31 | XR ---
EXAMINATION TYPE: XR chest 1V portable DATE OF EXAM: 08/21/2020 COMPARISON: 08/13/2020 HISTORY: Cough Heart is normal. There is some coarsening of interstitial markings. There are chest leads. Costophren ic angles are clear. The bony thorax is intact. IMPRESSION: Mild pulmonary fibrotic changes. Lung markings increased compared to old exam. Mild acute interstitial pneumonia is probably present.
[2020-08-21] MEDS ORDERED: BAMLANIVIMAB (EUA) 700 MG, ETESEVIMAB (EUA) 1,400 MG in SODIUM CHLORIDE 0.9% 50 ML IVPB ONE (18:15)
[2020-08-21] MEDS ORDERED: SODIUM CHLORIDE 0.9% 50 ML IVPB ONE (18:15)
[2020-08-21] MEDS ORDERED: ONDANSETRON 4 MG/2 ML VIAL IVP STA (19:33)
[2020-08-21] MEDS ORDERED: ACETAMINOPHEN TAB 325 MG TAB PO STA (19:34)
[2020-08-21 20:53] VITALS: BP 105/85; PULSE 74
[2020-08-21 21:16] VITALS: TEMP 99.6
[2020-08-21] MEDS ORDERED: ONDANSETRON 4 MG ODT STARTER PACK 2 TAB BTL PO STA (21:17)
--- NOTE | 2020-08-21 21:18 | ED ---
Medical Decision Making - Lab Data Result diagrams: 08/21/20 16:31 08/21/20 16:31 Lab Results 08/21/20 08/21/20 08/21/20 Range/Units 16:31 16:31 16:31 WBC 2.3 L (3.8-10.6) k/uL RBC 4.13 (3.80-5.40) m/uL Hgb 12.1 (11.4-16.0) gm/dL Hct 37.8 (34.0-46.0) % MCV 91.5 (80.0-100.0) fL MCH 29.3 (25.0-35.0) pg MCHC 32.0 (31.0-37.0) g/dL RDW 15.1 (11.5-15.5) % Plt Count 117 L (150-450) k/uL MPV 10.6 Neutrophils % 69 % Lymphocytes % 18 % Monocytes % 10 % Eosinophils % 0 % Basophils % 1 % Neutrophils # 1.6 (1.3-7.7) k/uL Lymphocytes # 0.4 L (1.0-4.8) k/uL Monocytes # 0.2 (0-1.0) k/uL Eosinophils # 0.0 (0-0.7) k/uL Basophils # 0.0 (0-0.2) k/uL Sodium 142 (137-145) mmol/L Potassium 4.4 (3.5-5.1) mmol/L Chloride 108 H (98-107) mmol/L Carbon Dioxide 23 (22-30) mmol/L Anion Gap 11 mmol/L BUN 16 (7-17) mg/dL Creatinine 0.93 (0.52-1.04) mg/dL Est GFR (CKD-EPI)AfAm 75 (>60 ml/min/1.73 sqM) Est GFR (CKD-EPI)NonAf 65 (>60 ml/min/1.73 sqM) Glucose 84 (74-99) mg/dL Calcium 9.3 (8.4-10.2) mg/dL Influenza Type A (PCR) Not Detected (Not Detectd) Influenza Type B (PCR) Not Detected (Not Detectd) RSV (PCR) Not Detected (Not Detectd) SARS-CoV-2 (PCR) Detected A (Not Detectd) Disposition Clinical Impression: COVID-19 Disposition: HOME SELF-CARE Condition: Good Instructions (If sedation given, give patient instructions): Coronavirus Disease 2019 (COVID-19) Additional Instructions: Today you were evaluated for symptoms consistent with upper respiratory infection. Today you tested positive for Covid 19. Your are stable for discharge, however it is instructed to to seek immediate medical attention especially if you develop worsening symptoms especially respiratory distress. If possible, try to obtain a pulse oximeter and monitor your oxygen at home. In the meantime please remain in quarantine for 14 days. For any other questions please contact Jeannine for here in emergency department or [facility] at [phone] Prescriptions: Ondansetron Odt [Zofran Odt] 4 mg PO Q8HR PRN #12 tab PRN Reason: Nausea Is patient prescribed a controlled substance at d/c from ED?: No Referrals: Adonis Mcfarlane DO [Primary Care Provider] - 1-2 days Time of Disposition: 21:18
== END 2020-08-21 21:21 | disposition home or self-care (01) ==
LOC: EC 16:06
DX: U07.1 COVID-19 (principal); D72.819 Decreased white blood cell count, unspecified; E78.5 Hyperlipidemia, unspecified; I10 Essential (primary) hypertension; M19.90 Unspecified osteoarthritis, unspecified site; Z87.891 Personal history of nicotine dependence; Z80.1 Family history of malignant neoplasm of trachea, bronchus and lung; Z82.49 Family history of ischemic heart disease and other diseases of the circulatory system; Z83.49 Family history of other endocrine, nutritional and metabolic diseases; Z88.1 Allergy status to other antibiotic agents; Z88.2 Allergy status to sulfonamides
CPT/HCPCS: 36415; 93005; 80048; 85025; 87636; 71045; 99285; 96374; J2405; S0119; Q0245

== ENCOUNTER → 2020-12-19 | Outpatient (CLI) | payer MEDICARE ==
--- NOTE | 2020-12-19 21:26 | CT ---
EXAMINATION TYPE: CT ChestAbdPelvis w con DATE OF EXAM: 12/19/2020 COMPARISON: 12/26/2019 HISTORY: 65-year-old female Follow up lymphadenopathy. TECHNIQUE: Contiguous axial scanning of the chest, abdomen, and pelvis performed with IV Contrast, pa tient injected with 100 mL of Isovue M300. Delayed images through the kidneys were obtained. Coronal/ sagittal reconstructions performed. CT DLP: 3105.1 mGycm Automated exposure control for dose reduction was used. FINDINGS: CHEST: Heart upper limits of normal in size without pericardial effusion. Aorta normal caliber with conventional vessel branching anatomy. No thoracic lymphadenopathy by CT size criteria. Mild diffuse bronchial wall thickening could represent bronchitis or asthma. No consolidation or pleu ral effusion. ABDOMEN: No focal liver lesion or biliary ductal dilatation. Portal venous system is patent. Cholecystectomy c lips. Adrenal glands, left kidney, spleen, and pancreas within normal limits. Small subcentimeter hypodensi ties within the right renal cortex, likely tiny cysts. Left periaortic lymph node measuring 1.0 cm, unchanged. Additional smaller periaortic lymph nodes are present along the infrarenal region. Left common iliac chain lymph node 1.1 cm, unchanged. Left external iliac chain lymph nodes measuring 1.2 cm, unchanged. The right external iliac chain lymph nodes measuring up to 1.1 cm, unchanged. Additional external iliac chain lymph nodes in both sides measuring up to 1.1 cm, unchanged. No dilated small bowel, free fluid, or free air. Normal appendix. Oral contrast progressed to the hep atic flexure of the colon. There is mild to moderate stool burden. Redundant sigmoid colon. No agustin lonic inflammatory change. Mild metastatic calcification abdominal aorta without aneurysm. Moderate-sized periumbilical hernia m easuring 6.6 cm wide is unchanged. PELVIS: Prominent left inguinal chain lymph node measuring 1.8 cm short axis, unchanged. Bladder is urine distended. Uterus anteverted. Both ovaries are visualized. No abnormal fluid collect ion in the pelvis. BONES: Moderate degenerative change of the hips. Advanced degenerative disc disease and hypertrophic facet a rthropathy throughout the lumbar spine with grade 1 retrolisthesis L1-L2 and L2-L3. Os acromiale on t he right. Degenerative change right glenohumeral joint. IMPRESSION: STABLE BORDERLINE TO MILDLY ENLARGED RETROPERITONEAL, BILATERAL ILIAC CHAIN, AND LEFT INGUINAL LYMPH NODES MEASURING UP TO 1.8 CM SHORT AXIS.
== END ==
LOC: RADCTMAIN 11:58
PROVIDERS: ATTEND Internal Medicine Hematology & Oncology
DX: Z09 Encounter for follow-up examination after completed treatment for conditions other than malignant neoplasm (principal); R59.0 Localized enlarged lymph nodes
CPT/HCPCS: 82565; 84520; 71260; 74177; 36415; Q9967 ×2

== ENCOUNTER → 2022-01-27 | Outpatient (CLI) | payer MEDICARE ==
[2022-01-28 00:07] LABS: ALT 14 U/L (8-44); AST 22 U/L (13-35); Albumin 4.7 g/dL (3.8-4.9); Albumin/Globulin Ratio 1.78 (1.60-3.17); Alkaline Phosphatase 197 U/L (41-126); Bilirubin, Conjugated <0.20 mg/dL (0.20-0.40); Globulin 2.6 g/dL (1.6-3.3); Total Protein 7.3 g/dL (6.2-8.2)
== END | disposition home or self-care (01) ==
LOC: LABWHC1 15:27
PROVIDERS: ATTEND Family Medicine
DX: R89.9 Unspecified abnormal finding in specimens from other organs, systems and tissues (principal)
CPT/HCPCS: 36415; 80076

== ENCOUNTER → 2022-02-04 | Outpatient (CLI) | payer MEDICARE, OTHER ==
--- NOTE | 2022-02-04 22:02 | MR ---
EXAMINATION TYPE: MR brain wo/w con DATE OF EXAM: 02/04/2022 COMPARISON: Prior MRI brain April 13, 2020 HISTORY: F/U for meningioma TECHNIQUE: Multiplanar, multisequence images of the brain and brainstem is performed without and with IV contras t, utilizing 15 mL intravenous Gadavist . FINDINGS: Diffusion weighted images demonstrate no evidence of a recent infarct or other diffusion ab normality. There is no extra-axial fluid collection or significant white matter signal abnormality. The ventricular system and cisternal spaces remain normal in size and appearance. The brain volume is age appropriate. Midline structures redemonstrate normal morphology. The craniocervical junction remains within ronald l limits. Persistent enhancing 1.6 x 1.3 x 1.6 cm mass axial image 8 and coronal image 26 in the ante rior posterior fossa with local mass effect. Slightly more dense enhancement with central area of non enhancement suspected calcification on current study. Findings consistent with extra-axial partially calcified meningioma stable in size from prior MRI. No new enhancing masses are seen. Dural venous si nuses remaining patent. The visualized sinuses are clear and the globes are intact. Nasal septum liza ins slightly deviated to right of midline. IMPRESSION: Stable anterior right posterior fossa 1.6 cm enhancing extra-axial mass presumed meningio ma.
== END | disposition home or self-care (01) ==
LOC: RADMRIMAIN 12:45
PROVIDERS: ATTEND Family Medicine
DX: D32.0 Benign neoplasm of cerebral meninges (principal)
CPT/HCPCS: 70553; A9585

== ENCOUNTER → 2022-03-10 | Outpatient (CLI) | payer MEDICARE, OTHER ==
[2022-03-10 23:46] LABS: ALT 11 U/L (8-44); AST 19 U/L (13-35); Alkaline Phosphatase 187 U/L (41-126); Chol/HDL Ratio 4.64 Ratio
== END | disposition home or self-care (01) ==
LOC: LABWHC1 15:23
PROVIDERS: ATTEND Family Medicine
DX: R89.9 Unspecified abnormal finding in specimens from other organs, systems and tissues (principal)
CPT/HCPCS: 36415; 80061; 84075; 84450; 84460

== ENCOUNTER → 2022-05-12 | Outpatient (CLI) | payer MEDICARE, OTHER ==
[2022-05-12 19:01] LABS: ALT 9 U/L (8-44); AST 20 U/L (13-35); Chol/HDL Ratio 2.94 Ratio
== END ==
LOC: LABWHC1 13:59
PROVIDERS: ATTEND Physician Assistant
DX: E78.5 Hyperlipidemia, unspecified (principal)
CPT/HCPCS: 36415; 80061; 84450; 84460

== ENCOUNTER 2022-07-30 15:35 | Emergency (ER) | payer MEDICARE, OTHER ==
[2022-07-30 15:40] VITALS: BP 151/82; PULSE 78; RESP 18; TEMP 98
[2022-07-30] MEDS ORDERED: CLINDAMYCIN 600 MG in DEXTROSE 5% IN WATER 50 ML IVPB STA ×2 (15:54)
--- NOTE | 2022-07-30 15:58 | ED ---
Skin/Abscess/FB HPI - General Chief complaint: Skin/Abscess/Foreign Body Stated complaint: poss cellulitus Time Seen by Provider: 07/30/22 15:48 Source: patient Mode of arrival: wheelchair - History of Present Illness Initial comments: This patient is a 67-year-old woman who arrives to evaluation for possible cellulitis. Patient has history of multiple previous episodes of cellulitis to the lower extremities. She has lymphedema and chronic stasis ulcers. The patient's visiting nurse had noted there was some redness developing to the lateral aspect of the left lower leg. She made an appointment at the wound care center and then was directed here after being seen there. Patient denies having any systemic symptoms, no fever or chills. No chest pain palpitations or dy spnea. MD complaint: discoloration -: days(s) Tetanus Up to Date: yes Location: LLE Severity: mild Quality: burning Consistency: constant Improves with: none Worsens with: none Associated symptoms: denies other symptoms - Related Data Home Medications Medication Instructions Recorded Confirmed Levothyroxine Sodium [Synthroid] 100 mcg PO DAILY 08/29/13 07/30/22 Atorvastatin Calcium [Lipitor] 10 mg PO HS 10/06/18 07/30/22 lisinopriL [Zestril] 20 mg PO BID 08/06/20 07/30/22 Amitriptyline HCl [Elavil] 10 mg PO HS 07/23/21 07/30/22 Cholecalciferol [Vitamin D3 (25 50 mcg PO DAILY 07/23/21 07/30/22 Mcg = 1000 Iu)] Acetaminophen Tab [Tylenol Tab] 1,500 mg PO Q6HR PRN 07/30/22 07/30/22 Butalb/Acetaminophen/Caffeine 1 - 2 tab PO Q6H PRN 07/30/22 07/30/22 [Esgic 50-325-40 mg Tablet] Previous Rx's Medication Instructions Recorded HYDROcodone/APAP 10-325MG [Hardin 1 tab PO Q6H PRN #12 tab 07/29/21 10-325] Pregabalin [Lyrica] 100 mg PO TID #9 cap 07/29/21 Clindamycin [Cleocin] 150 mg PO Q6H #28 capsule 07/30/22 Allergies Allergy/AdvReac Type Severity Reaction Status Date / Time Sulfa (Sulfonamide Allergy Rash/Hives Verified 07/30/22 16:11 Antibiotics) vancomycin Allergy Rash/Hives Verified 07/30/22 16:11 levofloxacin [From Levaquin] AdvReac Itching Verified 07/30/22 16:11 Review of Systems ROS Statement: Those systems with pertinent positive or pertinent negative responses have been documented in the HPI. ROS Other: All systems not noted in ROS Statement are negative. Constitutional: Denies: fever, chills, weakness Respiratory: Denies: cough, dyspnea Cardiovascular: Denies: chest pain, palpitations Gastrointestinal: Denies: vomiting, diarrhea Skin: Reports: as per HPI, change in color Neurological: Denies: headache, weakness, numbness Past Medical History Past Medical History: Hyperlipidemia, Hypertension, Osteoarthritis (OA), Skin Disorder, Thyroid Disorder, Vascular Disorder Additional Past Medical History / Comment(s): Nonambulatory/pivots to wheelchair normally, low back pain, neuropathy bilateral feet, chronic venous stasis, past L heel/L posterior yost/left second toe wounds, past L 2nd toe osteomyelitis-now amptuated, L great toe amptutated; 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 History of Any Multi-Drug Resistant Organisms: MRSA, VRE, VRE Date of last positivie culture/infection: 05/20/21-VRE; 04/07/20 MRSA MDRO Source:: Left Foot-VRE, Left Foot and Leg MRSA Past Surgical History: Section, Cholecystectomy, Orthopedic Surgery, Tubal Ligation Additional Past Surgical History / Comment(s): L leg I&D, bilateral knee arthroscopies, L great toe and 2nd/3rd toe amp d/t nonhealing wounds, PICCS, midlines, D&Cs Past Anesthesia/Blood Transfusion Reactions: Previous Problems w/ Anesthesia Additional Past Anesthesia/Blood Transfusion Reaction / Comment(s): Slow to come out of it Past Psychological History: Depression, Depression Smoking Status: Former smoker Past Alcohol Use History: None Reported Past Drug Use History: None Reported - Past Family History Father Family Medical History: Cancer, Coronary Artery Disease (CAD), Myocardial Infarction ([place]), Prostate Disorder Additional Family Medical History / Comment(s): Prostate CA. Father in a MVA at the age of 80yrs. Mother Family Medical History: Cancer, CVA/TIA, Hyperlipidemia Additional Family Medical History / Comment(s): Lung CA-left lobe removed. General Exam General appearance: alert, in no apparent distress Head exam: Present: atraumatic, normocephalic Eye exam: Present: normal appearance. Absent: scleral icterus, conjunctival injection Respiratory exam: Present: normal lung sounds bilaterally. Absent: respiratory distress, wheezes, rales, rhonchi, stridor Cardiovascular Exam: Present: regular rate, normal rhythm, normal heart sounds. Absent: systolic murmur, diastolic murmur, rubs, gallop GI/Abdominal exam: Present: soft. Absent: distended, tenderness, guarding, rebound, rigid, mass Extremities exam: Present: normal capillary refill, pedal edema (Bilateral lower extremity chronic edematous changes. There is mild erythema and warmth lateral aspect of the left lower leg. No circumferential involvement.). Absent: calf tenderness Neurological exam: Present: alert Skin exam: Present: warm, dry, intact (Chronic stasis ulcers), erythema (See above). Absent: rash, cyanosis, vesicles, petechiae, pallor, mottled Course Vital Signs 07/30/22 15:36 Temperature 98.0 F Pulse Rate 78 Respiratory 18 Rate Blood Pressure 151/82 O2 Sat by Pulse 93 L Oximetry Medical Decision Making - Medical Decision Making This patient is 67-year-old woman with history of multiple episodes of previous cellulitis, presenting with what appears to be early onset of cellulitis, there is no circumferential involvement. Will attempt a course of clindamycin, as patient has no previous ALLERGY and she did tolerate first dose of this here. Discussed appropriate further care and follow-up as well as return parameters. Was pt. sent in by a medical professional or institution (DENISE Jacome, SENIOR JAVA ENGINEER, urgent care, hospital, or senior care...) When possible be specific @ -[No] Did you speak to anyone other than the patient for history (EMS, parent, family, police, friend...)? What history was obtained from this source @ -[No] Did you review nursing and triage notes (agree or disagree)? Why? @ -[I reviewed and agree with nursing and triage notes] Were old charts reviewed (outside hosp., previous admission, EMS record, old EKG, old radiological studies, urgent care reports/EKG's, senior care records)? Report findings @ -[No old charts were reviewed] Differential Diagnosis (chest pain, altered mental status, abdominal pain women, abdominal pain men, vaginal bleeding, weakness, fever, dyspnea, syncope, headache, dizziness, GI bleed, back pain, seizure, CVA, palpatations, mental health, musculoskeletal)? @ -[Differential diagnosis for patient's rash includes cellulitis, other bacterial infection, vasculitis, venous stasis, lymphedema, among other conditions EKG interpreted by me (3pts min.). @ -[ X-rays interpreted by me (1pt min.). @ -[None done] CT interpreted by me (1pt min.). @ -[None done] U/S interpreted by me (1pt. min.). @ -[None done] What testing was considered but not performed or refused? (CT, X-rays, U/S, labs)? Why? @ -[None] What meds were considered but not given or refused? Why? @ -[None] Did you discuss the management of the patient with other professionals (professionals i.e. , PA, SENIOR JAVA ENGINEER, lab, RT, psych nurse, licensed master social worker, lawyer real estate, teacher, seal delivery vehicle officer, case management manager)? Give summary @ -[No] Was smoking cessation discussed for >3mins.? @ -[No] Was critical care preformed (if so, how long)? @ -[No] Were there social determinants of health that impacted care today? How? (Homelessness, low income, unemployed, alcoholism, drug addiction, transportation, low edu. Level, literacy, decrease access to med. care, intermediate, rehab)? @ -[No] Was there de-escalation of care discussed even if they declined (Discuss DNR or withdrawal of care, Hospice)? DNR status @ -[No] What co-morbidities impacted this encounter? (DM, HTN, Smoking, COPD, CAD, Cancer, CVA, ARF, Chemo, Hep., AIDS, mental health diagnosis, sleep apnea, morbid obesity)? @ -[None] Was patient admitted / discharged? Hospital course, mention meds given and route, prescriptions, significant lab abnormalities, going to OR and other pertinent info. @ -[Discharge with close follow-up Undiagnosed new problem with uncertain prognosis? @ -[No] Drug Therapy requiring intensive monitoring for toxicity (Heparin, Nitro, Insulin, Cardizem)? @ -[No] Were any procedures done? @ -[No] Diagnosis/symptom? @ -[Acute lower extremity cellulitis, uncomplicated Acute, or Chronic, or Acute on Chronic? @ -[default] Uncomplicated (without systemic symptoms) or Complicated (systemic symptoms)? @ -[default] Side effects of treatment? @ -[No] Exacerbation, Progression, or Severe Exacerbation? @ -[No] Poses a threat to life or bodily function? How? (Chest pain, [place], [place], pneumonia, PE, COPD, DKA, ARF, appy, cholecystitis, CVA, Diverticulitis, Homicidal, Suicidal, threat to staff... and all critical care pts) @ -[No] - Lab Data Result diagrams: 07/30/22 17:12 07/30/22 17:12 Lab Results 07/30/22 07/30/22 Range/Units 17:12 17:12 WBC 4.8 (3.8-10.6) k/uL RBC 3.62 L (3.80-5.40) m/uL Hgb 10.9 L (11.4-16.0) gm/dL Hct 33.3 L (34.0-46.0) % MCV 91.8 (80.0-100.0) fL MCH 30.2 (25.0-35.0) pg MCHC 32.9 (31.0-37.0) g/dL RDW 13.7 (11.5-15.5) % Plt Count 134 L (150-450) k/uL MPV 9.4 Neutrophils % 70 % Lymphocytes % 19 % Monocytes % 8 % Eosinophils % 1 % Basophils % 0 % Neutrophils # 3.4 (1.3-7.7) k/uL Lymphocytes # 0.9 L (1.0-4.8) k/uL Monocytes # 0.4 (0-1.0) k/uL Eosinophils # 0.0 (0-0.7) k/uL Basophils # 0.0 (0-0.2) k/uL Sodium 141 (137-145) mmol/L Potassium 4.7 (3.5-5.1) mmol/L Chloride 105 (98-107) mmol/L Carbon Dioxide 30 (22-30) mmol/L Anion Gap 6 mmol/L BUN 12 (7-17) mg/dL Creatinine 0.71 (0.52-1.04) mg/dL Est GFR (CKD-EPI)AfAm >90 (>60 ml/min/1.73 sqM) Est GFR (CKD-EPI)NonAf 88 (>60 ml/min/1.73 sqM) Glucose 84 (74-99) mg/dL Calcium 9.2 (8.4-10.2) mg/dL Total Bilirubin 0.7 (0.2-1.3) mg/dL AST 19 (14-36) U/L ALT 10 (4-34) U/L Alkaline Phosphatase 166 H (38-126) U/L C-Reactive Protein 1.4 H (<1.0) mg/dL Total Protein 6.4 (6.3-8.2) g/dL Albumin 3.6 (3.5-5.0) g/dL Disposition Clinical Impression: Cellulitis Disposition: HOME SELF-CARE Condition: Good Instructions (If sedation given, give patient instructions): Cellulitis (ED) Prescriptions: Clindamycin [Cleocin] 150 mg PO Q6H #28 capsule Is patient prescribed a controlled substance at d/c from ED?: No Referrals: Adonis Mcfarlane DO [Primary Care Provider] - 1-2 days
[2022-07-30] MEDS ORDERED: HYDROcodone/APAP 10-325MG 1 EACH TAB PO ONE (17:17)
[2022-07-30 17:32] LABS: Basophils % (A) 0 %; Eosinophils % (A) 1 %; HCT 33.3 % (34.0-46.0); HGB 10.9 gm/dL (11.4-16.0); Lymphocytes # (A) 0.9 k/uL (1.0-4.8); Lymphocytes % (A) 19 %; MCH 30.2 pg (25.0-35.0); MCHC 32.9 g/dL (31.0-37.0); MCV 91.8 fL (80.0-100.0); Mean Platelet Volume 9.4; Monocytes # (A) 0.4 k/uL (0-1.0); Monocytes % (A) 8 %; Neutrophils # (A) 3.4 k/uL (1.3-7.7); Neutrophils % (A) 70 %; Platelet Count 134 k/uL (150-450); RBC 3.62 m/uL (3.80-5.40); RDW 13.7 % (11.5-15.5); WBC 4.8 k/uL (3.8-10.6)
[2022-07-30 17:39] LABS: ALT 10 U/L (4-34); AST 19 U/L (14-36); African American GFR (CKD) >90 (>60 ml/min/1.73 sqM); Albumin 3.6 g/dL (3.5-5.0); Alkaline Phosphatase 166 U/L (38-126); Anion Gap 6 mmol/L; Blood Urea Nitrogen 12 mg/dL (7-17); Carbon Dioxide 30 mmol/L (22-30); Chloride 105 mmol/L (98-107); Non-African American GFR(CKD) 88 (>60 ml/min/1.73 sqM); Sodium 141 mmol/L (137-145); Total Bilirubin 0.7 mg/dL (0.2-1.3); Total Protein 6.4 g/dL (6.3-8.2)
[2022-07-30 18:07] LABS: C Reactive Protein 1.4 mg/dL (<1.0); Calcium 9.2 mg/dL (8.4-10.2); Glucose 84 mg/dL (74-99); Potassium 4.7 mmol/L (3.5-5.1)
[2022-07-30] MEDS ORDERED: MORPHINE SULFATE 4 MG/ML SYRINGE IV STA (18:16)
== END 2022-07-30 19:01 | disposition home or self-care (01) ==
LOC: EC 15:35
DX: L03.116 Cellulitis of left lower limb (principal); I10 Essential (primary) hypertension; E78.5 Hyperlipidemia, unspecified; E03.9 Hypothyroidism, unspecified; F32.A Depression, unspecified; M19.90 Unspecified osteoarthritis, unspecified site; Z79.890 Hormone replacement therapy; Z79.899 Other long term (current) drug therapy; Z87.891 Personal history of nicotine dependence; Z88.1 Allergy status to other antibiotic agents; Z88.2 Allergy status to sulfonamides
CPT/HCPCS: 36415; 80053; 85025; 86140; 99284; 96365; 96375; J2270

== ENCOUNTER → 2022-09-01 | Outpatient (CLI) | payer MEDICARE, OTHER ==
--- NOTE | 2022-09-02 15:20 | MM ---
Reason for Exam: Screening (asymptomatic). Patient History: Menarche at age 11. First Full-Term at age 26. Postmenopausal. Risk Values: Chhaya 5 year model risk: 1.9%. NCI Lifetime model risk: 6.2%. Tissue Density: There are scattered fibroglandular densities. Findings: Analyzed By CAD. Pattern appears symmetrical. No suspicious groups of microcalcifications, spiculated or lobular masses, architectural distortion or other secondary signs of malignancy are mammographically apparent. Overall Assessment: Benign, BI-RAD 2 Management: Screening Mammogram of both breasts in 1 year. A negative mammogram report should not preclude additional follow up of suspicious palpable abnormalities. Patient should continue monthly self breast exam. A clinical breast exam by your physician is recommended on an annual basis and results should be correlated with mammographic findings. Electronically signed and approved by: Adonis Mccloud D.O. Radiologis
== END | disposition home or self-care (01) ==
LOC: RADMAMWWP 14:01
PROVIDERS: ATTEND Family Medicine
DX: Z12.31 Encounter for screening mammogram for malignant neoplasm of breast (principal); Z78.0 Asymptomatic menopausal state
CPT/HCPCS: 77063; 77067

== ENCOUNTER 2022-12-12 13:25 | Inpatient (IN) | payer MEDICARE, OTHER ==
--- NOTE | 2022-12-12 13:53 | ED ---
General Adult HPI - General Source: patient, RN notes reviewed, old records reviewed Mode of arrival: EMS Limitations: physical limitation <Yvon Ca - Last Filed: 12/12/22 14:53> - History of Present Illness -: days(s) Radiation: non-radiation Severity scale (1-10): 7 Quality: sharp Consistency: constant Improves with: none Worsens with: none Associated Symptoms: denies other symptoms Treatments Prior to Arrival: none <Yvon Robertson - Last Filed: 12/14/22 17:59> - General Chief complaint: Extremity Problem,Nontraumatic Stated complaint: L Leg Pain Time Seen by Provider: 12/12/22 13:30 - History of Present Illness Initial comments: This is a 67-year-old female presents emergency Department complaining that she has pain in the upper posterior thigh since last night she states is getting more swollen and more tender. Patient states she thinks there is also warm. Patient denies any difficulty breathing shortness of breath or chest pain. Patient denies any palpitations. Patient denies any lightheadedness or dizziness. Patient denies any back pain. (Yvon Ca) 67 female to the emergency department for evaluation of severe left upper thigh pain significant swelling and tenderness. Patient states his appointment with the pain is causing to be disabled and now she is currently significantly debilitated and she cannot currently ambulate secondary to pain. Patient does live by herself (Yvon Robertson) - Related Data Home Medications Medication Instructions Recorded Confirmed Levothyroxine Sodium [Synthroid] 100 mcg PO DAILY 08/29/13 12/12/22 Atorvastatin Calcium [Lipitor] 10 mg PO HS 10/06/18 12/12/22 lisinopriL [Zestril] 20 mg PO BID PRN 08/06/20 12/12/22 Amitriptyline HCl [Elavil] 10 mg PO HS 07/23/21 12/12/22 Cholecalciferol [Vitamin D3 (25 50 mcg PO DAILY 07/23/21 12/12/22 Mcg = 1000 Iu)] Ascorbic Acid [Vitamin C] 1,000 mg PO DAILY 12/12/22 12/12/22 Vitamin B Complex 1 cap PO DAILY 12/12/22 12/12/22 Previous Rx's Medication Instructions Recorded HYDROcodone/APAP 10-325MG [[place] 1 tab PO Q6H PRN #12 tab 07/29/21 10-325] Pregabalin [Lyrica] 100 mg PO TID #9 cap 07/29/21 Allergies Allergy/AdvReac Type Severity Reaction Status Date / Time Sulfa (Sulfonamide Allergy Rash/Hives Verified 12/12/22 18:08 Antibiotics) vancomycin Allergy Rash/Hives Verified 12/12/22 18:08 levofloxacin [From Levaquin] AdvReac Itching Verified 12/12/22 18:08 Review of Systems ROS Other: All systems not noted in ROS Statement are negative. <Yvon Ca - Last Filed: 12/12/22 14:53> ROS Other: All systems not noted in ROS Statement are negative. <Yvon Robertson - Last Filed: 12/14/22 17:59> ROS Statement: Those systems with pertinent positive or pertinent negative responses have been documented in the HPI. 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 History of Any Multi-Drug Resistant Organisms: MRSA, VRE, VRE Date of last positivie culture/infection: 05/20/21-VRE; 04/07/20 MRSA MDRO Source:: Left Foot-VRE, Left Foot and Leg MRSA Past Surgical History: Section, Cholecystectomy, Orthopedic Surgery, Tubal Ligation Additional Past Surgical History / Comment(s): L leg I&D, bilateral knee arthroscopies, L great toe and 2nd/3rd toe amp d/t nonhealing wounds, PICCS, midlines, D&Cs Past Anesthesia/Blood Transfusion Reactions: Previous Problems w/ Anesthesia Additional Past Anesthesia/Blood Transfusion Reaction / Comment(s): Slow to come out of it Past Psychological History: Depression, Depression Smoking Status: Former smoker Past Alcohol Use History: None Reported Past Drug Use History: None Reported - Past Family History Father Family Medical History: Cancer, Coronary Artery Disease (CAD), Myocardial Infarction ([place]), Prostate Disorder Additional Family Medical History / Comment(s): Prostate CA. Father in a MVA at the age of 80yrs. Mother Family Medical History: Cancer, CVA/TIA, Hyperlipidemia Additional Family Medical History / Comment(s): Lung CA-left lobe removed. <Yvon Ca - Last Filed: 12/12/22 14:53> General Exam Limitations: physical limitation <Yvon Ca - Last Filed: 12/12/22 14:53> Limitations: physical limitation General appearance: alert, in no apparent distress, anxious, lethargic, obese Head exam: Present: atraumatic, normocephalic, normal inspection Eye exam: Present: normal appearance, PERRL, EOMI. Absent: scleral icterus, conjunctival injection, periorbital swelling ENT exam: Present: normal exam, mucous membranes moist Neck exam: Present: normal inspection. Absent: tenderness, meningismus, lymphadenopathy Respiratory exam: Present: normal lung sounds bilaterally. Absent: respiratory distress, wheezes, rales, rhonchi, stridor Cardiovascular Exam: Present: regular rate, normal rhythm, normal heart sounds. Absent: systolic murmur, diastolic murmur, rubs, gallop, clicks GI/Abdominal exam: Present: soft, normal bowel sounds. Absent: distended, tenderness, guarding, rebound, rigid Extremities exam: Present: tenderness, normal capillary refill, other (L thigh erythema, edema). Absent: full ROM, pedal edema, joint swelling, calf tenderness Back exam: Present: normal inspection Neurological exam: Present: alert, oriented X3, CN II-XII intact Psychiatric exam: Present: normal affect, normal mood Skin exam: Present: warm, dry, intact, normal color. Absent: rash <Yvon Robertson - Last Filed: 12/14/22 17:59> - General Exam Comments Initial Comments: GENERAL: Patient is well-developed and well-nourished. Patient is nontoxic and well- hydrated and is in mild distress. ENT: Neck is soft and supple. No significant lymphadenopathy is noted. Oropharynx is clear. Moist mucous membranes. Neck has full range of motion without eliciting any pain. EYES: The sclera were anicteric and conjunctiva were pink and moist. Extraocular movements were intact and pupils were equal round and reactive to light. Eyelids were unremarkable. PULMONARY: Unlabored respirations. Good breath sounds bilaterally. No audible rales rhonchi or wheezing was noted. CARDIOVASCULAR: There is a regular rate and rhythm without any murmurs gallops or rubs. ABDOMEN: Soft and nontender with normal bowel sounds. SKIN: Skin is clear with no lesions or rashes and otherwise unremarkable. NEUROLOGIC: Patient is alert and oriented x3. Cranial nerves II through XII are grossly intact. Motor and sensory are also intact. Normal speech, volume and content. Symmetrical smile. MUSCULOSKELETAL: Normal extremities with adequate strength and full range of motion. Posterior left thigh is red hot and nontender LYMPHATICS: No significant lymphadenopathy is noted PSYCHIATRIC: Normal psychiatric evaluation. (Yvon Ca) I did examine patient's back no significant ulcer noted across her decubitus (Yvon Robertson) Course <Yvon Robertson - Last Filed: 12/14/22 17:59> Vital Signs 12/12/22 12/12/22 12/12/22 13:27 17:40 18:11 Temperature 97.4 F L 102.0 F H Pulse Rate 115 H 102 H 94 Respiratory 18 18 18 Rate Blood Pressure 116/87 141/101 158/83 O2 Sat by Pulse 95 93 L 91 L Oximetry - Reevaluation(s) Reevaluation #1: 12/12/22 17:02 Medical record is reviewed (Yvon Robertson) Reevaluation #2: 12/12/22 17:02 Patient still has severe pain in the left lower extremity, unable to ambulate Patient did develop fever here in the emergency department (Yvon Robertson) Reevaluation #3: 12/12/22 17:02 Patient informed results questions answered Patient does not feel comfortable with discharge home (Yvon Robertson) Reevaluation #4: 12/12/22 17:02 Was pt. sent in by a medical professional or institution (Dr., PA, [employer], urgent care, hospital, or alf...) When possible be specific @ -no Did you speak to anyone other than the patient for history (EMS, parent, family, police, friend...)? What history was obtained from this source @ -no Did you review nursing and triage notes (agree or disagree)? Why? @ -agree Are old charts reviewed (outside hosp., previous admission, EMS record, old EKG, old radiological studies, urgent care reports/EKG's, alf records)? Report findings @ -yes Differential Diagnosis (chest pain, altered mental status, abdominal pain women, abdominal pain men, vaginal bleeding, weakness, fever, dyspnea, syncope, headache, dizziness, GI bleed, back pain, seizure, CVA, palpatations, mental health, musculoskeletal)? @ -prior EKG interpreted by me (3pts min.). @ -yes X-rays interpreted by me (1pt min.). @ -yes CT interpreted by me (1pt min.). @ -no U/S interpreted by me (1pt. min.). @ -yes What testing was considered but not performed or refused? (CT, X-rays, U/S, labs)? Why? @ -none What meds were considered but not given or refused? Why? @ -none Did you discuss the management of the patient with other professionals (professionals i.e. , PA, [employer], lab, RT, psych nurse, social science teacher, school lunch monitor, teacher, retail loan officer, manager case)? Give summary @ -no Was smoking cessation discussed for >3mins.? @ -no Was critical care preformed (if so, how long)? @ -no Were there social determinants of health that impacted care today? How? (Homelessness, low income, unemployed, alcoholism, drug addiction, transportation, low edu. Level, literacy, decrease access to med. care, halfway, rehab)? @ -none Was there de-escalation of care discussed even if they declined (Discuss DNR or withdrawal of care, Hospice)? DNR status @ -no What co-morbidities impacted this encounter? (DM, HTN, Smoking, COPD, CAD, Cancer, CVA, ARF, Chemo, Hep., AIDS, mental health diagnosis, sleep apnea, morbid obesity)? @ -none Was patient admitted / discharged? Hospital course, mention meds given and route, prescriptions, significant lab abnormalities, going to OR and other per tinent info. @ - 63 female to the emergency department today for evaluation of left lower extremity pain severe pain in the left lower extremity here in the emergency room, patient does have an elevated white blood cell count, ALSO we did get an ultrasound that was negative for DVT with significant cellulitis that area. The patient states she does live by herself and is currently disabled secondary to pain unable to ambulate which she is normally able to do. Patient is found to have a fever here in the emergency department, but does have x-ray and CT testing which is negative, I also did flip patient over and she has no significant ulcers on her back her blood tox. Patient will be admitted for IV antibiotics likely PTOT Admitted Undiagnosed new problem with uncertain prognosis? @ -no Drug Therapy requiring intensive monitoring for toxicity (Heparin, Nitro, Insulin, Cardizem)? @ -no Were any procedures done? @ -no Diagnosis/symptom? @ -Cellulitis, fever Acute, or Chronic, or Acute on Chronic? @ -Acute Uncomplicated (without systemic symptoms) or Complicated (systemic symptoms)? @ -Complicated Side effects of treatment? @ -no Exacerbation, Progression, or Severe Exacerbation? @ -exacerbation Poses a threat to life or bodily function? How? (Chest pain, [place], [place], pneumonia, PE, COPD, DKA, ARF, appy, cholecystitis, CVA, Diverticulitis, Homicidal, Suicidal, threat to staff... and all critical care pts) @ -yes with cellulitis (Yvon Robertson) - Consultations Consultation #1: Spoke with admitting physicians agreeable to admit this patient (Yvon Robertson) Medical Decision Making - Lab Data Result diagrams: 12/12/22 13:53 12/12/22 13:53 <Yvon Ca - Last Filed: 12/12/22 14:53> - Lab Data Result diagrams: 12/14/22 04:56 12/14/22 04:56 - EKG Data -: EKG Interpreted by Me - Radiology Data Radiology results: report reviewed (Ultrasound left lower extremity is negative for DVT, chest x-rays negative for significant acute disease), image reviewed <Yvon Robertson - Last Filed: 12/14/22 17:59> - Medical Decision Making Was pt. sent in by a medical professional or institution (, DENISE, [employer], urgent care, hospital, or alf...) When possible be specific @ -[No] Did you speak to anyone other than the patient for history (EMS, parent, family, police, friend...)? What history was obtained from this source @ -[No] Did you review nursing and triage notes (agree or disagree)? Why? @ -[I reviewed and agree with nursing and triage notes] Were old charts reviewed (outside hosp., previous admission, EMS record, old EKG, old radiological studies, urgent care reports/EKG's, alf records)? Report findings @ -[No old charts were reviewed] Differential Diagnosis (chest pain, altered mental status, abdominal pain women, abdominal pain men, vaginal bleeding, weakness, fever, dyspnea, syncope, headache, dizziness, GI bleed, back pain, seizure, CVA, palpatations, mental health, musculoskeletal)? @ -Cellulitis, DVT, Mckeon's cyst EKG interpreted by me (3pts min.). @ -[As above] X-rays interpreted by me (1pt min.). @ -[None done] CT interpreted by me (1pt min.). @ -[None done] U/S interpreted by me (1pt. min.). @ -[None done] What testing was considered but not performed or refused? (CT, X-rays, U/S, labs)? Why? @ -[None] What meds were considered but not given or refused? Why? @ -[None] Did you discuss the management of the patient with other professionals (professionals i.e. , DENISE, [employer], lab, RT, psych nurse, social science teacher, school lunch monitor, teacher, retail loan officer, manager case)? Give summary @ -[No] Was smoking cessation discussed for >3mins.? @ -[No] Was critical care preformed (if so, how long)? @ -[No] Were there social determinants of health that impacted care today? How? (Homelessness, low income, unemployed, alcoholism, drug addiction, transportation, low edu. Level, literacy, decrease access to med. care, halfway, rehab)? @ -[No] Was there de-escalation of care discussed even if they declined (Discuss DNR or withdrawal of care, Hospice)? DNR status @ -[No] What co-morbidities impacted this encounter? (DM, HTN, Smoking, COPD, CAD, Cancer, CVA, ARF, Chemo, Hep., AIDS, mental health diagnosis, sleep apnea, morbid obesity)? @ -[None] Was patient admitted / discharged? Hospital course, mention meds given and route, prescriptions, significant lab abnormalities, going to OR and other pertinent info. @ -Patient had LAB WORK ORDERED. DR. ROBERTSON WILL TAKE OVER THE CARE OF THIS PATIENT AT 3 PM (Yvon Ca) 63 female to the emergency department today for evaluation of left lower extremity pain severe pain in the left lower extremity here in the emergency room, patient does have an elevated white blood cell count, ALSO we did get an ultrasound that was negative for DVT with significant cellulitis that area. The patient states she does live by herself and is currently disabled secondary to pain unable to ambulate which she is normally able to do. Patient is found to have a fever here in the emergency department, but does have x-ray and CT testing which is negative, I also did flip patient over and she has no significant ulcers on her back her blood tox. Patient will be admitted for IV antibiotics likely PTOT (Yvon Robertson) - Lab Data Lab Results 12/12/22 12/12/22 12/12/22 Range/Units 13:53 13:53 13:53 WBC 14.6 H (3.8-10.6) k/uL RBC 3.90 (3.80-5.40) m/uL Hgb 12.2 (11.4-16.0) gm/dL Hct 36.4 (34.0-46.0) % MCV 93.5 (80.0-100.0) fL MCH 31.3 (25.0-35.0) pg MCHC 33.5 (31.0-37.0) g/dL RDW 14.2 (11.5-15.5) % Plt Count 103 L (150-450) k/uL MPV 10.5 Neutrophils % 92 % Lymphocytes % 3 % Monocytes % 3 % Eosinophils % 1 % Basophils % 0 % Neutrophils # 13.5 H (1.3-7.7) k/uL Lymphocytes # 0.5 L (1.0-4.8) k/uL Monocytes # 0.4 (0-1.0) k/uL Eosinophils # 0.1 (0-0.7) k/uL Basophils # 0.0 (0-0.2) k/uL Sodium 140 (137-145) mmol/L Potassium 4.1 (3.5-5.1) mmol/L Chloride 106 (98-107) mmol/L Carbon Dioxide 26 (22-30) mmol/L Anion Gap 8 mmol/L BUN 15 (7-17) mg/dL Creatinine 0.84 (0.52-1.04) mg/dL Est GFR (CKD-EPI)AfAm 83 (>60 ml/min/1.73 sqM) Est GFR (CKD-EPI)NonAf 72 (>60 ml/min/1.73 sqM) Glucose 86 (74-99) mg/dL Plasma Lactic Acid Lm 1.9 (0.7-2.0) mmol/L Calcium 9.4 (8.4-10.2) mg/dL Total Bilirubin 1.2 (0.2-1.3) mg/dL AST 26 (14-36) U/L ALT 13 (4-34) U/L Alkaline Phosphatase 123 (38-126) U/L Total Protein 7.1 (6.3-8.2) g/dL Albumin 4.1 (3.5-5.0) g/dL Disposition <Yvon Ca - Last Filed: 12/12/22 14:53> Is patient prescribed a controlled substance at d/c from ED?: No Time of Disposition: 17:00 <Yvon Robertson - Last Filed: 12/14/22 17:59> Clinical Impression: Left leg cellulitis, Debility, Leukocytosis, Chronic low back pain, Unable to ambulate, Morbid obesity, Cellulitis, Failure to thrive Disposition: ADMITTED IP TO THIS [facility] Condition: Fair
[2022-12-12 14:18] LABS: Basophils % (A) 0 %; Eosinophils # (A) 0.1 k/uL (0-0.7); Eosinophils % (A) 1 %; HCT 36.4 % (34.0-46.0); HGB 12.2 gm/dL (11.4-16.0); Lymphocytes # (A) 0.5 k/uL (1.0-4.8); Lymphocytes % (A) 3 %; MCH 31.3 pg (25.0-35.0); MCHC 33.5 g/dL (31.0-37.0); MCV 93.5 fL (80.0-100.0); Mean Platelet Volume 10.5; Monocytes # (A) 0.4 k/uL (0-1.0); Monocytes % (A) 3 %; Neutrophils # (A) 13.5 k/uL (1.3-7.7); Neutrophils % (A) 92 %; Platelet Count 103 k/uL (150-450); RDW 14.2 % (11.5-15.5); WBC 14.6 k/uL (3.8-10.6)
[2022-12-12 14:27] LABS: ALT 13 U/L (4-34); AST 26 U/L (14-36); African American GFR (CKD) 83 (>60 ml/min/1.73 sqM); Albumin 4.1 g/dL (3.5-5.0); Alkaline Phosphatase 123 U/L (38-126); Anion Gap 8 mmol/L; Blood Urea Nitrogen 15 mg/dL (7-17); Calcium 9.4 mg/dL (8.4-10.2); Carbon Dioxide 26 mmol/L (22-30); Chloride 106 mmol/L (98-107); Glucose 86 mg/dL (74-99); Non-African American GFR(CKD) 72 (>60 ml/min/1.73 sqM); Sodium 140 mmol/L (137-145); Total Bilirubin 1.2 mg/dL (0.2-1.3); Total Protein 7.1 g/dL (6.3-8.2)
[2022-12-12 14:38] LABS: Potassium 4.1 mmol/L (3.5-5.1)
--- NOTE | 2022-12-12 15:59 | US ---
EXAMINATION TYPE: US venous doppler duplex LE LT DATE OF EXAM: 12/12/2022 3:30 PM COMPARISON: 02/28/2012 CLINICAL INDICATION: Female, 67 years old with history of Red tender and swollen; redness, tenderness , and swelling LT posterior upper calf SIDE PERFORMED: Left TECHNIQUE: The lower extremity deep venous system is examined utilizing real time linear array sonog mark with graded compression, doppler sonography and color-flow sonography. VESSELS IMAGED: Common Femoral Vein Deep Femoral Vein Greater Saphenous Vein * Femoral Vein Left Leg: Negative for DVT Exam limited due to edema and large body habitus. Popliteal vessels again not visualized on today's e xam IMPRESSION: 1. Left lower extremity ultrasound negative for deep venous thrombosis. 2. Limitation due to nonvisualization of the left popliteal vessel. Noncompressible structures howeve r are not identified.
[2022-12-12] MEDS ORDERED: NALOXONE 0.4 MG/ML 1 ML VIAL IV PRN (16:56)
[2022-12-12] MEDS: SODIUM CHLORIDE 0.9% 1,000 ML IV SCH (17:42)
[2022-12-12] MEDS: ONDANSETRON 4 MG/2 ML VIAL IVP PRN (17:43)
[2022-12-12] MEDS: MORPHINE SULFATE 4 MG/ML SYRINGE IV PRN (17:43)
[2022-12-12] MEDS ORDERED: ACETAMINOPHEN TAB 500 MG TAB PO STA (18:12)
[2022-12-12] MEDS ORDERED: IBUPROFEN 800 MG TAB PO STA (18:12)
--- NOTE | 2022-12-12 18:34 | XR ---
EXAMINATION TYPE: XR chest 1V portable DATE OF EXAM: 12/12/2022 6:28 PM COMPARISON: Chest radiographs from 08/21/2020 TECHNIQUE: XR chest 1V portable Frontal view of the chest. CLINICAL INDICATION:Female, 67 years old with history of pain; FINDINGS: Lungs/Pleura: There is no evidence of pleural effusion, focal consolidation, or pneumothorax. Pulmonary vascularity: Unremarkable. Heart/mediastinum: Cardiomediastinal silhouette is unremarkable. Musculoskeletal: No acute osseous pathology. IMPRESSION: Low lung volumes with a generalized hazy appearance which could represent atelectasis versus pulmonar y edema correlate with serum BNP.
[2022-12-12 18:54] LABS: Appearance,Urine Clear (Clear); Bilirubin,Urine Negative (Negative); Blood,Urine Negative (Negative); Color,Urine Yellow; Glucose,Urine (UA) Negative (Negative); Ketones,Urine 1+ (Negative); Leukocyte Esterase,Urine Negative (Negative); Nitrite,Urine Negative (Negative); Protein,Urine Trace (Negative); Specific Gravity,Urine 1.018 (1.001-1.035); Urobilinogen,Urine <2.0 mg/dL (<2.0)
[2022-12-12] MEDS ORDERED: lisinopriL 20 MG TAB PO PRN (19:34)
[2022-12-12 20:23] LABS: Glucose,Whole Blood 86 mg/dL (70-110)
[2022-12-12] MEDS ORDERED: metroNIDAZOLE-NS PMX 500 MG in SALINE 1 100ML.BAG IVPB ONE (20:51)
[2022-12-12] MEDS ORDERED: ATORVASTATIN 10 MG TAB PO SCH (21:00)
[2022-12-12] MEDS: NOREPINEPHRINE 4 MG in SODIUM CHLORIDE 0.9% 250 ML IV SCH (21:30)
[2022-12-12 21:33] LABS: Glucose,Whole Blood 88 mg/dL (70-110)
[2022-12-12] MEDS: CEFEPIME 2 GM in SODIUM CHLORIDE 0.9% 100 ML IVPB SCH (22:09)
[2022-12-12] MEDS: PREGABALIN 100 MG CAP PO SCH (22:12)
[2022-12-12] MEDS: AMITRIPTYLINE HCL 10 MG TAB PO SCH (22:12)
[2022-12-12] MEDS: HYDROcodone/APAP 10-325MG 1 EACH TAB PO PRN (22:12)
[2022-12-12] MEDS: FAMOTIDINE 20 MG/2 ML VIAL IV SCH (22:12)
[2022-12-12] MEDS: HEPARIN SODIUM,PORCINE 5,000 UNIT/ML 1 ML VIAL SQ SCH (22:14)
[2022-12-13 04:26] LABS: Basophils % (A) 0 %; Eosinophils # (A) 0.1 k/uL (0-0.7); Eosinophils % (A) 1 %; HCT 31.5 % (34.0-46.0); HGB 10.3 gm/dL (11.4-16.0); Hypochromasia Slight; Lymphocytes # (A) 0.9 k/uL (1.0-4.8); Lymphocytes % (A) 8 %; MCH 31.4 pg (25.0-35.0); MCHC 32.6 g/dL (31.0-37.0); MCV 96.3 fL (80.0-100.0); Mean Platelet Volume 10.6; Monocytes # (A) 0.5 k/uL (0-1.0); Monocytes % (A) 4 %; Neutrophils # (A) 10.5 k/uL (1.3-7.7); Neutrophils % (A) 86 %; RBC 3.27 m/uL (3.80-5.40); RDW 14.3 % (11.5-15.5); WBC 12.2 k/uL (3.8-10.6)
[2022-12-13 04:50] LABS: Platelet Count 98 k/uL (150-450)
[2022-12-13 05:01] LABS: ALT 37 U/L (4-34); AST 90 U/L (14-36); African American GFR (CKD) 79 (>60 ml/min/1.73 sqM); Albumin 2.6 g/dL (3.5-5.0); Alkaline Phosphatase 127 U/L (38-126); Anion Gap 7 mmol/L; Blood Urea Nitrogen 18 mg/dL (7-17); Calcium 7.8 mg/dL (8.4-10.2); Carbon Dioxide 20 mmol/L (22-30); Chloride 112 mmol/L (98-107); Globulin 2.6 g/dL; Glucose 95 mg/dL (74-99); Non-African American GFR(CKD) 69 (>60 ml/min/1.73 sqM); Potassium 3.2 mmol/L (3.5-5.1); Sodium 139 mmol/L (137-145); Total Bilirubin 2.1 mg/dL (0.2-1.3); Total Protein 5.2 g/dL (6.3-8.2)
[2022-12-13 05:24] LABS: C Reactive Protein 18.8 mg/dL (<1.0)
[2022-12-13] MEDS ORDERED: Potassium Replacement Protocol 1 EACH MISC MISCELLANE PRN ×2 (05:34→07:41)
[2022-12-13 05:45] LABS: Erythrocyte Sedimentation Rate 39 mm/hr (0-20)
[2022-12-13] MEDS: POTASSIUM CHLORIDE 10 MEQ in WATER FOR INJECTION 1 100ML.BAG IVPB SCH ×4 (05:45→09:48)
[2022-12-13] MEDS: LEVOTHYROXINE 100 MCG TAB PO SCH (06:48)
[2022-12-13] MEDS: MORPHINE SULFATE 4 MG/ML SYRINGE IV PRN ×2 (08:39→22:11)
[2022-12-13] MEDS: CEFEPIME 2 GM in SODIUM CHLORIDE 0.9% 100 ML IVPB SCH ×2 (08:43→21:48)
[2022-12-13] MEDS ORDERED: NON FORMULARY DRUG (Vitamin B Complex [Vitamin B Complex] 1 EACH Capsule) PO SCH (09:00)
[2022-12-13] MEDS: PREGABALIN 100 MG CAP PO SCH ×3 (09:52→21:49)
[2022-12-13] MEDS: ASCORBIC ACID 500 MG TAB PO SCH (09:52)
[2022-12-13] MEDS: CHOLECALCIFEROL 25 MCG (1000 IU) TABLET PO SCH (09:52)
[2022-12-13] MEDS: HEPARIN SODIUM,PORCINE 5,000 UNIT/ML 1 ML VIAL SQ SCH ×2 (09:52→21:49)
[2022-12-13] MEDS: FAMOTIDINE 20 MG/2 ML VIAL IV SCH ×2 (09:52→21:49)
--- NOTE | 2022-12-13 10:02 | P.CNPUL ---
History of Present Illness Consult date: 12/13/22 Requesting physician: Nikos Hill Reason for consult: other (Critical care management) Chief complaint: Cellulitis, hypotension History of present illness: This is a 67-year-old female patient with a known history of hyperlipidemia, hypertension, osteoarthritis, hypothyroidism, neuropathy of the bilateral feet with chronic venous stasis and previous cellulitis and osteomyelitis with multiple toes amputated on the left foot. Previous MRSA infection of the left foot as well. She follows at the wound Center. She was having increasing pain and redness, warmth of the left thigh posteriorly and came here to the emergency room for the same. He was initially admitted to the regular medical floor at approximately 8:00 last night she developed hypotension and rapid response team was called. She was subsequently transferred to the intensive care unit. She is seen today in consultation. She is awake and alert in no acute distress. She is on norepinephrine at 0.02 mcg/kg/m. She received 2 L of fluid resuscitation. She is initiated on cefepime. She received Flagyl 1. Previous wound cultures from June 2021 of the left foot were positive for MSSA and Enterobacter cloacae, enterococcus faecalis VRE. White count 12.2. Hemoglobin 10.3. Platelets 98,000. Sodium 139. Potassium 3.2. Bicarb 20. BUN 18. Creatinine 0.87. AST 90. ALT 37. Influenza screen negative. RSV screen negative. COVID-19 screen negative. Doppler of the left lower extremity was negative for DVT. X-ray reveals low lung volumes with generalized hazy appearance possible atelectasis versus pulmonary edema. Review of Systems REVIEW OF SYSTEMS: CONSTITUTIONAL: Denies any recent significant weight loss or weight gain. EYES: Denies change in vision. EARS, NOSE, MOUTH, THROAT: Denies headaches, denies sore throat. CARDIOVASCULAR: Denies chest pain, palpitations or syncopal episodes. RESPIRATORY: Denies shortness of breath, cough, congestion or hemoptysis. GASTROINTESTINAL: Denies change in appetite, denies abdominal pain GENITOURINARY: Denies hematuria, denies infections. MUSKULOSKELETAL: Positive for pain in the left thigh. INTEGUMENTARY: Denies rash, denies eczema. NEUROLOGICAL: Denies recent memory loss, no recent seizure activity. PSYCHIATRIC: Denies anxiety, denies depression. HEMATOLOGIC/LYMPHATIC: Denies anemia, denies enlarged lymph nodes. 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 History of Any Multi-Drug Resistant Organisms: MRSA, VRE, VRE Date of last positivie culture/infection: 05/20/21-VRE; 04/07/20 MRSA MDRO Source:: Left Foot-VRE, Left Foot and Leg MRSA Past Surgical History: Section, Cholecystectomy, Orthopedic Surgery, Tubal Ligation Additional Past Surgical History / Comment(s): L leg I&D, bilateral knee arthroscopies, L great toe and 2nd/3rd toe amp d/t nonhealing wounds, PICCS, midlines, D&Cs Past Anesthesia/Blood Transfusion Reactions: Previous Problems w/ Anesthesia Additional Past Anesthesia/Blood Transfusion Reaction / Comment(s): Slow to come out of it Past Psychological History: Depression, Depression Additional Psychological History / Comment(s): Patient states she normally can pivot to wheelchair. She is receiving home care thru [facility]. She sees Dr. Danielson for wound care. She receives [employer] grocery delivery. She gets rides through [employer] or a friend. 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 Smoking Status: Former smoker Past Alcohol Use History: None Reported Additional Past Alcohol Use History / Comment(s): Pt started smoking in 1970 and quit in 1990. Past Drug Use History: None Reported - Past Family History Father Family Medical History: Cancer, Coronary Artery Disease (CAD), Myocardial Infar ction ([place]), Prostate Disorder Additional Family Medical History / Comment(s): Prostate CA. Father in a MVA at the age of 80yrs. Mother Family Medical History: Cancer, CVA/TIA, Hyperlipidemia Additional Family Medical History / Comment(s): Lung CA-left lobe removed. Medications and Allergies Home Medications Medication Instructions Recorded Confirmed Type Levothyroxine Sodium [Synthroid] 100 mcg PO DAILY 08/29/13 12/12/22 History Atorvastatin Calcium [Lipitor] 10 mg PO HS 10/06/18 12/12/22 History lisinopriL [Zestril] 20 mg PO BID PRN 08/06/20 12/12/22 History Amitriptyline HCl [Elavil] 10 mg PO HS 07/23/21 12/12/22 History Cholecalciferol [Vitamin D3 (25 50 mcg PO DAILY 07/23/21 12/12/22 History Mcg = 1000 Iu)] HYDROcodone/APAP 10-325MG [[place] 1 tab PO Q6H PRN #12 tab 07/29/21 12/12/22 Rx 10-325] Pregabalin [Lyrica] 100 mg PO TID #9 cap 07/29/21 12/12/22 Rx Ascorbic Acid [Vitamin C] 1,000 mg PO DAILY 12/12/22 12/12/22 History Vitamin B Complex 1 cap PO DAILY 12/12/22 12/12/22 History Allergies Allergy/AdvReac Type Severity Reaction Status Date / Time Sulfa (Sulfonamide Allergy Rash/Hives Verified 12/12/22 18:08 Antibiotics) vancomycin Allergy Rash/Hives Verified 12/12/22 18:08 levofloxacin [From Levaquin] AdvReac Itching Verified 12/12/22 18:08 Physical Exam Vitals: Vital Signs Temp Pulse Pulse Resp BP BP BP 12/13/22 09:00 56 L 13 82/45 12/13/22 08:00 97.6 F 56 L 33 H 102/49 12/13/22 07:00 55 L 18 102/48 12/13/22 06:50 22 102/48 12/13/22 06:40 57 L 9 L 129/99 12/13/22 06:30 50 L 15 115/75 12/13/22 06:20 51 L 8 L 115/75 12/13/22 06:10 48 L 8 L 94/52 12/13/22 06:00 49 L 14 97/59 12/13/22 05:50 49 L 14 97/59 12/13/22 05:40 50 L 12 94/48 12/13/22 05:30 52 L 14 85/55 12/13/22 05:20 51 L 13 85/55 12/13/22 05:10 50 L 13 93/56 12/13/22 05:00 53 L 14 92/57 12/13/22 04:50 54 L 14 92/57 12/13/22 04:40 54 L 14 86/54 12/13/22 04:30 52 L 14 87/53 12/13/22 04:20 54 L 14 87/53 12/13/22 04:10 58 L 14 117/90 12/13/22 04:00 54 L 54 L 14 92/50 12/13/22 03:50 52 L 13 92/50 12/13/22 03:40 53 L 13 91/54 12/13/22 03:30 54 L 13 109/64 12/13/22 03:20 53 L 13 109/64 12/13/22 03:10 58 L 14 112/67 12/13/22 03:00 57 L 9 L 119/68 12/13/22 02:50 53 L 8 L 119/68 12/13/22 02:40 50 L 7 L 102/59 12/13/22 02:30 20 94/52 12/13/22 02:20 53 L 14 94/52 12/13/22 02:10 52 L 10 L 94/52 12/13/22 02:00 54 L 32 H 97/55 12/13/22 01:50 54 L 13 97/55 12/13/22 01:40 57 L 11 L 91/56 12/13/22 01:30 12 89/49 12/13/22 01:20 56 L 25 H 89/49 12/13/22 01:10 56 L 24 92/52 12/13/22 01:00 57 L 18 89/54 12/13/22 00:50 58 L 28 H 89/54 12/13/22 00:40 58 L 15 97/51 12/13/22 00:30 22 95/58 12/13/22 00:20 37 H 95/58 12/13/22 00:10 23 88/56 12/13/22 00:00 97.9 F 56 L 16 85/45 12/12/22 23:50 54 H 85/45 12/12/22 23:40 59 L 14 97/53 12/12/22 23:30 8 L 85/45 12/12/22 23:20 19 85/45 12/12/22 23:10 64 14 87/46 12/12/22 23:01 62 18 90/47 12/12/22 23:00 63 17 90/47 12/12/22 22:50 65 17 90/47 12/12/22 22:40 64 18 109/84 12/12/22 22:30 63 11 L 96/56 12/12/22 22:20 62 16 96/56 12/12/22 22:10 63 18 95/49 12/12/22 22:00 65 29 H 97/56 12/12/22 21:50 64 15 97/56 12/12/22 21:45 62 12/12/22 21:40 49 H 95/62 12/12/22 21:30 77 16 90/42 12/12/22 21:22 73 12/12/22 20:55 79 75/40 12/12/22 20:48 89/53 12/12/22 20:37 70/40 12/12/22 20:29 72/40 12/12/22 20:15 65/37 12/12/22 20:06 72/40 12/12/22 19:58 61/34 12/12/22 19:57 77/41 12/12/22 18:11 94 18 158/83 12/12/22 17:40 102.0 F H 102 H 18 141/101 12/12/22 13:27 97.4 F L 115 H 18 116/87 Pulse Ox 12/13/22 09:00 89 L 12/13/22 08:00 94 L 12/13/22 07:00 94 L 12/13/22 06:50 94 L 12/13/22 06:40 93 L 12/13/22 06:30 92 L 12/13/22 06:20 94 L 12/13/22 06:10 95 12/13/22 06:00 96 12/13/22 05:50 96 12/13/22 05:40 96 12/13/22 05:30 95 12/13/22 05:20 96 12/13/22 05:10 96 12/13/22 05:00 98 12/13/22 04:50 96 12/13/22 04:40 96 12/13/22 04:30 97 12/13/22 04:20 90 L 12/13/22 04:10 90 L 12/13/22 04:00 93 L 12/13/22 03:50 89 L 12/13/22 03:40 89 L 12/13/22 03:30 90 L 12/13/22 03:20 93 L 12/13/22 03:10 94 L 12/13/22 03:00 12/13/22 02:50 12/13/22 02:40 12/13/22 02:30 92 L 12/13/22 02:20 92 L 12/13/22 02:10 92 L 12/13/22 02:00 92 L 12/13/22 01:50 92 L 12/13/22 01:40 90 L 12/13/22 01:30 94 L 12/13/22 01:20 92 L 12/13/22 01:10 91 L 12/13/22 01:00 91 L 12/13/22 00:50 91 L 12/13/22 00:40 90 L 12/13/22 00:30 90 L 12/13/22 00:20 92 L 12/13/22 00:10 91 L 12/13/22 00:00 94 L 12/12/22 23:50 93 L 12/12/22 23:40 96 12/12/22 23:30 96 12/12/22 23:20 97 12/12/22 23:10 95 12/12/22 23:01 96 12/12/22 23:00 95 12/12/22 22:50 95 12/12/22 22:40 96 12/12/22 22:30 97 12/12/22 22:20 96 12/12/22 22:10 96 12/12/22 22:00 96 12/12/22 21:50 96 12/12/22 21:45 12/12/22 21:40 97 12/12/22 21:30 96 12/12/22 21:22 96 12/12/22 20:55 12/12/22 20:48 12/12/22 20:37 12/12/22 20:29 12/12/22 20:15 12/12/22 20:06 12/12/22 19:58 12/12/22 19:57 12/12/22 18:11 91 L 12/12/22 17:40 93 L 12/12/22 13:27 95 Intake and Output 12/12/22 12/13/22 12/13/22 22:59 06:59 14:59 Intake Total 2330 1294.000 460 Output Total 400 180 83 Balance 1930 1114.000 377 Intake: IV 2130 1040 260 IV Bolus 2000 Sodium Chloride 0.9% 1, 130 1040 260 000 ml @ 130 mls/hr IV . [id number] [facility] Rx#:[id number] Intake, IV Titration 200 254.000 200 Amount Cefepime 2 gm In Sodium 100 Chloride 0.9% 100 ml @ 25 mls/hr IVPB Q12HR [facility] Rx #:[id number] Norepinephrine 4 mg In 254.000 Sodium Chloride 0.9% 250 ml @ 0.03 MCG/KG/MIN 14. 517 mls/hr IV .[id number] [facility] Rx#:[id number] Potassium Chloride 10 meq 200 In Water For Injection 1 100ml.bag @ 100 mls/hr IVPB Q1HR [facility] Rx#: [id number] metroNIDAZOLE-NS PMX 500 100 mg In Saline 1 100ml.bag @ 100 mls/hr IVPB ONCE ONE Rx#:[id number] Output: Urine 400 180 83 Other: Voiding Method Indwelling Catheter Indwelling Catheter Weight 127.006 kg 142.3 kg GENERAL EXAM: Alert, morbidly obese 67-year-old female, on room air, comfortable in no apparent distress. HEAD: Normocephalic. EYES: Normal reaction of pupils, equal size. NOSE: Clear with pink turbinates. THROAT: No erythema or exudates. NECK: No masses, no JVD. CHEST: No chest wall deformity. LUNGS: Equal air entry with no crackles, wheeze, rhonchi or dullness. CVS: S1 and S2 normal with no audible murmur, regular rhythm. ABDOMEN: No hepatosplenomegaly, normal bowel sounds, no guarding or rigidity. SPINE: No scoliosis or deformity SKIN: No rashes CENTRAL NERVOUS SYSTEM: No focal deficits, tone is normal in all 4 extremities. EXTREMITIES: Changes of chronic venous stasis. Previous amputations of the left upper second and third toe. Redness and warmth of the left thigh. No clubbing, no cyanosis. Peripheral pulses are intact. Results - Laboratory Findings CBC and BMP: 12/13/22 03:58 12/13/22 03:58 Abnormal lab findings: Abnormal Labs 12/12/22 12/12/22 12/13/22 13:53 18:24 03:58 WBC 14.6 H 12.2 H RBC 3.27 L Hgb 10.3 L Hct 31.5 L Plt Count 103 L 98 L Neutrophils # 13.5 H 10.5 H Lymphocytes # 0.5 L 0.9 L ESR 39 H Potassium Chloride Carbon Dioxide BUN Calcium Total Bilirubin AST ALT Alkaline Phosphatase C-Reactive Protein Total Protein Albumin Urine Protein Trace H Urine Ketones 1+ H 12/13/22 03:58 WBC RBC Hgb Hct Plt Count Neutrophils # Lymphocytes # ESR Potassium 3.2 L Chloride 112 H Carbon Dioxide 20 L BUN 18 H Calcium 7.8 L Total Bilirubin 2.1 H AST 90 H ALT 37 H Alkaline Phosphatase 127 H C-Reactive Protein 18.8 H Total Protein 5.2 L Albumin 2.6 L Urine Protein Urine Ketones - Diagnostic Findings Chest x-ray: image reviewed Assessment and Plan Assessment: Hypotension requiring pressor support secondary to sepsis Sepsis secondary to cellulitis of the left thigh Cellulitis of the left thigh Leukocytosis secondary to above Morbid obesity with a BMI of 47.7 kg/m Bilateral neuropathy of the lower extremities, nonambulatory, pivots to wheelchair Hypothyroidism Hyperlipidemia History of hypertension Osteoarthritis Previous history of MRSA, 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 Number of minutes spent on the visit: 20.
[2022-12-13] MEDS: SODIUM CHLORIDE 0.9% 1,000 ML IV SCH ×2 (11:50→23:20)
--- NOTE | 2022-12-13 13:18 | US ---
EXAMINATION TYPE: US extremity nonvasculr mass LT DATE OF EXAM: 12/13/2022 COMPARISON: NONE CLINICAL INDICATION: Female, 67 years old with history of eval for abscess left thigh and calf; abscess left leg. TECHNIQUE: Grayscale imaging of the left thigh area in the area of concern. FINDINGS: Scanned area of concern no abscess visualized. IMPRESSION: Subcutaneous edema without organizing fluid collection at this time. MTDD
[2022-12-13 14:01] LABS: NT-Pro-B-Type Natriuretic Pept 885 pg/mL
[2022-12-13] MEDS: NOREPINEPHRINE 4 MG in SODIUM CHLORIDE 0.9% 250 ML IV SCH (14:29)
[2022-12-13 15:18] LABS: T4, Free (Free Thyroxine) 1.88 ng/dL (0.78-2.19)
[2022-12-13] MEDS: HYDROcodone/APAP 10-325MG 1 EACH TAB PO PRN (16:24)
--- NOTE | 2022-12-13 16:50 | P.HPIM ---
History of Present Illness H&P Date: 12/12/22 Chief Complaint: Pain upper posterior thigh 67-year-old female presents emergency Department complaining that she has pain in the upper posterior thigh since last night she states is getting more swollen and more tender. Patient states she thinks there is also warm. Patient denies any difficulty breathing shortness of breath or chest pain. Patient denies any palpitations. Patient denies any lightheadedness or dizziness. Patient denies any back pain. 59 female DF for evaluation of severe left upper thigh pain significant swelling and tenderness. Patient states his appointment with the pain is causing to be disabled debilitated if she cannot currently ambulate secondary to pain. Patient does live by herself White count 12.2. Hemoglobin 10.3. Platelets 98,000. Sodium 139. Potassium 3.2. Bicarb 20. BUN 18. Creatinine 0.87. AST 90. ALT 37. Influenza screen negative. RSV screen negative. COVID-19 screen negative. Doppler of the left lower extremity was negative for DVT. X-ray reveals low lung volumes with generalized hazy appearance possible atelectasis versus pulmonary edema. Patient is being admitted to hospital for IV antibiotic treatment and evaluation by ID Review of Systems REVIEW OF SYSTEMS: CONSTITUTIONAL: No fever, no malaise, no fatigue. HEENT: No recent visual problems or hearing problems. Denied any sore throat. CARDIOVASCULAR: No chest pain, orthopnea, PND, no palpitations, no syncope. PULMONARY: No shortness of breath, no cough, no hemoptysis. GASTROINTESTINAL: No diarrhea, no nausea, no vomiting, no abdominal pain. NEUROLOGICAL: No headaches, no weakness, no numbness. HEMATOLOGICAL: Denies any bleeding or petechiae. GENITOURINARY: Denies any burning micturition, frequency, or urgency. MUSCULOSKELETAL/RHEUMATOLOGICAL: Denies any joint pain, swelling, or any muscle pain. ENDOCRINE: Denies any polyuria or polydipsia. The rest of the 14-point review of systems is negative. 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 History of Any Multi-Drug Resistant Organisms: MRSA, VRE, VRE Date of last positivie culture/infection: 05/20/21-VRE; 04/07/20 MRSA MDRO Source:: Left Foot-VRE, Left Foot and Leg MRSA Past Surgical History: Section, Cholecystectomy, Orthopedic Surgery, Tubal Ligation Additional Past Surgical History / Comment(s): L leg I&D, bilateral knee arthroscopies, L great toe and 2nd/3rd toe amp d/t nonhealing wounds, PICCS, midlines, D&Cs Past Anesthesia/Blood Transfusion Reactions: Previous Problems w/ Anesthesia Additional Past Anesthesia/Blood Transfusion Reaction / Comment(s): Slow to come out of it Past Psychological History: Depression, Depression Smoking Status: Former smoker Past Alcohol Use History: None Reported Past Drug Use History: None Reported - Past Family History Father Family Medical History: Cancer, Coronary Artery Disease (CAD), Myocardial Infarction ([place]), Prostate Disorder Additional Family Medical History / Comment(s): Prostate CA. Father in a MVA at the age of 80yrs. Mother Family Medical History: Cancer, CVA/TIA, Hyperlipidemia Additional Family Medical History / Comment(s): Lung CA-left lobe removed. Medications and Allergies Home Medications Medication Instructions Recorded Confirmed Type Levothyroxine Sodium [Synthroid] 100 mcg PO DAILY 08/29/13 12/12/22 History Atorvastatin Calcium [Lipitor] 10 mg PO HS 10/06/18 12/12/22 History lisinopriL [Zestril] 20 mg PO BID PRN 08/06/20 12/12/22 History Amitriptyline HCl [Elavil] 10 mg PO HS 07/23/21 12/12/22 History Cholecalciferol [Vitamin D3 (25 50 mcg PO DAILY 07/23/21 12/12/22 History Mcg = 1000 Iu)] HYDROcodone/APAP 10-325MG [[place] 1 tab PO Q6H PRN #12 tab 07/29/21 12/12/22 Rx 10-325] Pregabalin [Lyrica] 100 mg PO TID #9 cap 07/29/21 12/12/22 Rx Ascorbic Acid [Vitamin C] 1,000 mg PO DAILY 12/12/22 12/12/22 History Vitamin B Complex 1 cap PO DAILY 12/12/22 12/12/22 History Allergies Allergy/AdvReac Type Severity Reaction Status Date / Time Sulfa (Sulfonamide Allergy Rash/Hives Verified 12/12/22 18:08 Antibiotics) vancomycin Allergy Rash/Hives Verified 12/12/22 18:08 levofloxacin [From Levaquin] AdvReac Itching Verified 12/12/22 18:08 Physical Exam Vitals: Vital Signs Temp Pulse Resp BP Pulse Ox 12/12/22 18:11 94 18 158/83 91 L 12/12/22 17:40 102.0 F H 102 H 18 141/101 93 L 12/12/22 13:27 97.4 F L 115 H 18 116/87 95 Intake and Output 12/12/22 12/12/22 12/12/22 06:59 14:59 22:59 Other: Weight 127.006 kg Limitations: physical limitation General appearance: alert, in no apparent distress, lethargic, obese Head exam: Present: atraumatic, normocephalic, normal inspection Eye exam: Present: normal appearance, PERRL, EOMI. Absent: scleral icterus, conjunctival injection, periorbital swelling ENT exam: Present: normal exam, mucous membranes moist Neck exam: Present: normal inspection. Absent: tenderness, meningismus, lymphadenopathy Respiratory exam: Present: normal lung sounds bilaterally. Absent: respiratory distress, wheezes, rales, rhonchi, stridor Cardiovascular Exam: Present: regular rate, normal rhythm, normal heart sounds. Absent: systolic murmur, diastolic murmur, rubs, gallop, clicks GI/Abdominal exam: Present: soft, normal bowel sounds. Absent: distended, tenderness, guarding, rebound, rigid Extremities exam: Present: tenderness, normal capillary refill, other (L thigh erythema, edema). Absent: full ROM, pedal edema, joint swelling, calf tenderness Back exam: Present: normal inspection Neurological exam: Present: alert, oriented X3, CN II-XII intact Psychiatric exam: Present: normal affect, normal mood Skin exam: Present: warm, dry, intact, normal color. Absent: rash Results CBC & Chem 7: 12/13/22 03:58 12/13/22 03:58 Labs: Abnormal Lab Results - Last 24 Hours (Table) 12/12/22 12/12/22 Range/Units 13:53 18:24 WBC 14.6 H (3.8-10.6) k/uL Plt Count 103 L (150-450) k/uL Neutrophils # 13.5 H (1.3-7.7) k/uL Lymphocytes # 0.5 L (1.0-4.8) k/uL Urine Protein Trace H (Negative) Urine Ketones 1+ H (Negative) Assessment and Plan Assessment: 1. Sepsis/cellulitis left thigh - Sepsis as indicated by leukocytosis, abnormal inflammatory markers - Patient is in place and IV cefepime; blood cultures are obtained - Consult ID for further recommendations on IV antibiotics 2. Leukocytosis; related to 1 3. Anemia/thrombocytopenia/bicytopenia; chronic; patient has a baseline hemoglobin of 10.9 with platelet count around 130s; we will monitor CBC closely; plan to consult hematology if blood counts continue to trend down 4. Hypokalemia/electrolyte imbalance; potassium supplemented in ED; we will monitor electrolytes closely and further recommendations as needed 5. Mild MARTIN; patient treated with IV fluid boluses in ED; we'll monitor strict KATHYA's, daily weights, renal function and electrolytes; avoid nephrotoxins and hypotension 6. Elevated liver enzymes; transaminitis/hyperbilirubinemia; likely related to sepsis; we will monitor liver function periodically the plans of further testing if liver enzymes continue to trend up 7. Hypertension; Zestril 20 mg daily 8. Hyperlipidemia; Lipitor 10 mg by mouth daily at bedtime 9. Hypothyroidism; levothyroxin 100 MCG daily 10. Neuropathy both lower extremities; Elavil 10 mg by mouth daily at bedtime, Lyrica 100 mg by mouth 3 times a day 11. Morbid obesity; counseling done
--- NOTE | 2022-12-13 16:58 | P.PN ---
Subjective Progress Note Date: 12/13/22 67-year-old female presents emergency Department complaining that she has pain in the upper posterior thigh since last night she states is getting more swollen and more tender. Patient states she thinks there is also warm. Patient denies any difficulty breathing shortness of breath or chest pain. Patient denies any palpitations. Patient denies any lightheadedness or dizziness. Patient denies any back pain. 59 female DF for evaluation of severe left upper thigh pain significant swelling and tenderness. Patient states his appointment with the pain is causing to be disabled debilitated if she cannot currently ambulate secondary to pain. Patient does live by herself White count 12.2. Hemoglobin 10.3. Platelets 98,000. Sodium 139. Potassium 3.2. Bicarb 20. BUN 18. Creatinine 0.87. AST 90. ALT 37. Influenza screen negative. RSV screen negative. COVID-19 screen negative. Doppler of the left lower extremity was negative for DVT. X-ray reveals low lung volumes with generalized hazy appearance possible atelectasis versus pulmonary edema. Patient is being admitted to hospital for IV antibiotic treatment and evaluation by ID -- Patient developed profound hypotension and was transferred to ICU through the night; has required pressor agents; patient has been continued on IV cefepime and daptomycin is admitted Objective - Vital Signs Vital signs: Vital Signs Temp 97.6 F 12/13/22 08:00 Pulse 56 L 12/13/22 09:00 Resp 13 12/13/22 09:00 BP 82/45 12/13/22 09:00 Pulse Ox 89 L 12/13/22 09:00 FiO2 Intake & Output 12/12/22 12/13/22 12/13/22 18:59 06:59 18:59 Intake Total 3624.000 460 Output Total 580 83 Balance 3044.000 377 Weight 127.006 kg 142.3 kg Intake: IV 3170 260 IV Bolus 2000 Sodium Chloride 0.9% 1, 1170 260 000 ml @ 130 mls/hr IV . Q7H42M [facility] Rx#:[id number] Intake, IV Titration 454.000 200 Amount Cefepime 2 gm In Sodium 100 Chloride 0.9% 100 ml @ 25 mls/hr IVPB Q12HR [facility] Rx #:[id number] Norepinephrine 4 mg In 254.000 Sodium Chloride 0.9% 250 ml @ 0.03 MCG/KG/MIN 14. 517 mls/hr IV .[id number] [facility] Rx#:[id number] Potassium Chloride 10 meq 200 In Water For Injection 1 100ml.bag @ 100 mls/hr IVPB Q1HR [facility] Rx#: [id number] metroNIDAZOLE-NS PMX 500 100 mg In Saline 1 100ml.bag @ 100 mls/hr IVPB ONCE ONE Rx#:[id number] Output: Urine 580 83 Other: Voiding Method Indwelling Catheter - Exam General appearance: alert, in no apparent distress, lethargic, obese Head exam: Present: atraumatic, normocephalic, normal inspection Eye exam: Present: normal appearance, PERRL, EOMI. Absent: scleral icterus, conjunctival injection, periorbital swelling Neck exam: Present: normal inspection. Absent: tenderness, meningismus, lymphadenopathy Respiratory exam: Present: normal lung sounds bilaterally. Absent: respiratory distress, wheezes, rales, rhonchi, stridor Cardiovascular Exam: Present: regular rate, normal rhythm, normal heart sounds. Absent: systolic murmur, diastolic murmur, rubs, gallop, clicks GI/Abdominal exam: Present: soft, normal bowel sounds. Absent: distended, tenderness, guarding, rebound, rigid Extremities exam: Present: tenderness, normal capillary refill, other (L thigh erythema, edema). Absent: full ROM, pedal edema, joint swelling, calf tenderness Neurological exam: Present: alert, oriented X3, CN II-XII intact Skin exam: Present: warm, dry, intact, normal color. Absent: rash - Labs CBC & Chem 7: 12/13/22 03:58 12/13/22 03:58 Labs: Abnormal Lab Results - Last 24 Hours (Table) 12/12/22 12/12/22 12/13/22 Range/Units 13:53 18:24 03:58 WBC 14.6 H 12.2 H (3.8-10.6) k/uL RBC 3.27 L (3.80-5.40) m/uL Hgb 10.3 L (11.4-16.0) gm/dL Hct 31.5 L (34.0-46.0) % Plt Count 103 L 98 L (150-450) k/uL Neutrophils # 13.5 H 10.5 H (1.3-7.7) k/uL Lymphocytes # 0.5 L 0.9 L (1.0-4.8) k/uL ESR 39 H (0-20) mm/hr Potassium (3.5-5.1) mmol/L Chloride (98-107) mmol/L Carbon Dioxide (22-30) mmol/L BUN (7-17) mg/dL Calcium (8.4-10.2) mg/dL Total Bilirubin (0.2-1.3) mg/dL AST (14-36) U/L ALT (4-34) U/L Alkaline Phosphatase (38-126) U/L C-Reactive Protein (<1.0) mg/dL Total Protein (6.3-8.2) g/dL Albumin (3.5-5.0) g/dL Urine Protein Trace H (Negative) Urine Ketones 1+ H (Negative) 12/13/22 Range/Units 03:58 WBC (3.8-10.6) k/uL RBC (3.80-5.40) m/uL Hgb (11.4-16.0) gm/dL Hct (34.0-46.0) % Plt Count (150-450) k/uL Neutrophils # (1.3-7.7) k/uL Lymphocytes # (1.0-4.8) k/uL ESR (0-20) mm/hr Potassium 3.2 L (3.5-5.1) mmol/L Chloride 112 H (98-107) mmol/L Carbon Dioxide 20 L (22-30) mmol/L BUN 18 H (7-17) mg/dL Calcium 7.8 L (8.4-10.2) mg/dL Total Bilirubin 2.1 H (0.2-1.3) mg/dL AST 90 H (14-36) U/L ALT 37 H (4-34) U/L Alkaline Phosphatase 127 H (38-126) U/L C-Reactive Protein 18.8 H (<1.0) mg/dL Total Protein 5.2 L (6.3-8.2) g/dL Albumin 2.6 L (3.5-5.0) g/dL Urine Protein (Negative) Urine Ketones (Negative) Assessment and Plan Assessment: 1. Sepsis/cellulitis left thigh - Sepsis as indicated by leukocytosis, abnormal inflammatory markers - Patient is in place and IV cefepime; blood cultures are obtained - Consult ID for further recommendations on IV antibiotics 2. Leukocytosis; related to 1 3. Anemia/thrombocytopenia/bicytopenia; chronic; patient has a baseline hemoglobin of 10.9 with platelet count around 130s; we will monitor CBC closely; plan to consult hematology if blood counts continue to trend down 4. Hypokalemia/electrolyte imbalance; potassium supplemented in ED; we will monitor electrolytes closely and further recommendations as needed 5. Mild MARTIN; patient treated with IV fluid boluses in ED; we'll monitor strict KATHYA's, daily weights, renal function and electrolytes; avoid nephrotoxins and hypotension 6. Elevated liver enzymes; transaminitis/hyperbilirubinemia; likely related to sepsis; we will monitor liver function periodically the plans of further testing if liver enzymes continue to trend up 7. Hypertension; Zestril 20 mg daily 8. Hyperlipidemia; Lipitor 10 mg by mouth daily at bedtime 9. Hypothyroidism; levothyroxin 100 MCG daily 10. Neuropathy both lower extremities; Elavil 10 mg by mouth daily at bedtime, Lyrica 100 mg by mouth 3 times a day 11. Morbid obesity; counseling done
[2022-12-13] MEDS: AMITRIPTYLINE HCL 10 MG TAB PO SCH (21:49)
--- NOTE | 2022-12-14 00:15 | P.CONS ---
History of Present Illness - Reason for Consult Consult date: 12/13/22 - History of Present Illness Patient is 67 female with past medical his significant for hypertension hyperlipidemia diabetes mellitus history of diabetic foot infection requiring amputation of the toes currently did have a nonhealing wound to the left posterior leg area for the patient to follow with Dr. Danielson in the wound care center patient is presenting to [facility] ER yesterday for evaluation of left medial thigh pain swelling and tenderness that has been going on since that is 1 days before presentation to the hospital patient denies having any history of any trauma patient has been describing the pain to be sharp in nature almost 7-8 out of 10 with no radiation with associated sw elling and some redness and did have some improvement with the pain medication she has received with a similar the patient was evaluated by the ER physician on presentation to the hospital patient did have a fever of 102 F patient was tachycardic did have a marginal blood pressure subsequently blood pressure went down and the patient was transferred to the ICU for pressor support patient is current not hypoxic or need for supplemental oxygen patient did have vital of 14.6 with a left shift creatinine normal liver enzymes mildly elevated urine has been negative influenza and COVID testing was negative blood cultures obtained which are currently pending chest x-ray low lung volumes generalized hazy appearance could represent atelectasis patient did have a venous Doppler study that was negative for DVT patient was started on cefepime to receive dose of daptomycin infectious disease was consulted for further management of antibiotic therapy Past Medical History Past Medical History: Hyperlipidemia, Hypertension, Osteoarthritis (OA), Skin Disorder, Thyroid Disorder, Vascular Disorder Additional Past Medical History / Comment(s): Nonambulatory/pivots to wheelchair normally, low back pain, neuropathy bilateral feet, chronic venous stasis, past L heel/L posterior yost/left second toe wounds, past L 2nd toe osteomyelitis-now amptuated, L great toe amptutated; 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 History of Any Multi-Drug Resistant Organisms: MRSA, VRE, VRE Year Discovered:: 05/20/21-VRE; 04/07/20 MRSA MDRO Source:: Left Foot-VRE, Left Foot and Leg MRSA Past Surgical History: Section, Cholecystectomy, Orthopedic Surgery, Tubal Ligation Additional Past Surgical History / Comment(s): L leg I&D, bilateral knee arthroscopies, L great toe and 2nd/3rd toe amp d/t nonhealing wounds, PICCS, midlines, D&Cs Past Anesthesia/Blood Transfusion Reactions: Previous Problems w/ Anesthesia Additional Past Anesthesia/Blood Transfusion Reaction / Comm: Slow to come out of it Past Psychological History: Depression, Depression Additional Psychological History / Comment(s): Patient states she normally can pivot to wheelchair. She is receiving home care thru [facility]. She sees Dr. Danielson for wound care. She receives [employer] grocery delivery. She gets rides through [place] or a friend. 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 Smoking Status: Former smoker Past Alcohol Use History: None Reported Additional Past Alcohol Use History / Comment(s): Pt started smoking in 1970 and quit in 1990. Past Drug Use History: None Reported - Past Family History Father Family Medical History: Cancer, Coronary Artery Disease (CAD), Myocardial Infarction ([place]), Prostate Disorder Additional Family Medical History / Comment(s): Prostate CA. Father in a MVA at the age of 80yrs. Mother Family Medical History: Cancer, CVA/TIA, Hyperlipidemia Additional Family Medical History / Comment(s): Lung CA-left lobe removed. Medications and Allergies Home Medications Medication Instructions Recorded Confirmed Type Levothyroxine Sodium [Synthroid] 100 mcg PO DAILY 08/29/13 12/12/22 History Atorvastatin Calcium [Lipitor] 10 mg PO HS 10/06/18 12/12/22 History lisinopriL [Zestril] 20 mg PO BID PRN 08/06/20 12/12/22 History Amitriptyline HCl [Elavil] 10 mg PO HS 07/23/21 12/12/22 History Cholecalciferol [Vitamin D3 (25 50 mcg PO DAILY 07/23/21 12/12/22 History Mcg = 1000 Iu)] HYDROcodone/APAP 10-325MG [[place] 1 tab PO Q6H PRN #12 tab 07/29/21 12/12/22 Rx 10-325] Pregabalin [Lyrica] 100 mg PO TID #9 cap 07/29/21 12/12/22 Rx Ascorbic Acid [Vitamin C] 1,000 mg PO DAILY 12/12/22 12/12/22 History Vitamin B Complex 1 cap PO DAILY 12/12/22 12/12/22 History Allergies Allergy/AdvReac Type Severity Reaction Status Date / Time Sulfa (Sulfonamide Allergy Rash/Hives Verified 12/12/22 18:08 Antibiotics) vancomycin Allergy Rash/Hives Verified 12/12/22 18:08 levofloxacin [From Levaquin] AdvReac Itching Verified 12/12/22 18:08 Physical Exam Vitals: Vital Signs Temp Pulse Pulse Resp BP BP BP 12/13/22 09:00 56 L 13 82/45 12/13/22 08:00 97.6 F 56 L 33 H 102/49 12/13/22 07:00 55 L 18 102/48 12/13/22 06:50 22 102/48 12/13/22 06:40 57 L 9 L 129/99 12/13/22 06:30 50 L 15 115/75 12/13/22 06:20 51 L 8 L 115/75 12/13/22 06:10 48 L 8 L 94/52 12/13/22 06:00 49 L 14 97/59 12/13/22 05:50 49 L 14 97/59 12/13/22 05:40 50 L 12 94/48 12/13/22 05:30 52 L 14 85/55 12/13/22 05:20 51 L 13 85/55 12/13/22 05:10 50 L 13 93/56 12/13/22 05:00 53 L 14 92/57 12/13/22 04:50 54 L 14 92/57 12/13/22 04:40 54 L 14 86/54 12/13/22 04:30 52 L 14 87/53 12/13/22 04:20 54 L 14 87/53 12/13/22 04:10 58 L 14 117/90 12/13/22 04:00 54 L 54 L 14 92/50 12/13/22 03:50 52 L 13 92/50 12/13/22 03:40 53 L 13 91/54 12/13/22 03:30 54 L 13 109/64 12/13/22 03:20 53 L 13 109/64 12/13/22 03:10 58 L 14 112/67 12/13/22 03:00 57 L 9 L 119/68 12/13/22 02:50 53 L 8 L 119/68 12/13/22 02:40 50 L 7 L 102/59 12/13/22 02:30 20 94/52 12/13/22 02:20 53 L 14 94/52 12/13/22 02:10 52 L 10 L 94/52 12/13/22 02:00 54 L 32 H 97/55 12/13/22 01:50 54 L 13 97/55 12/13/22 01:40 57 L 11 L 91/56 12/13/22 01:30 12 89/49 12/13/22 01:20 56 L 25 H 89/49 12/13/22 01:10 56 L 24 92/52 12/13/22 01:00 57 L 18 89/54 12/13/22 00:50 58 L 28 H 89/54 12/13/22 00:40 58 L 15 97/51 12/13/22 00:30 22 95/58 12/13/22 00:20 37 H 95/58 12/13/22 00:10 23 88/56 12/13/22 00:00 97.9 F 56 L 16 85/45 12/12/22 23:50 54 H 85/45 12/12/22 23:40 59 L 14 97/53 12/12/22 23:30 8 L 85/45 12/12/22 23:20 19 85/45 12/12/22 23:10 64 14 87/46 12/12/22 23:01 62 18 90/47 12/12/22 23:00 63 17 90/47 12/12/22 22:50 65 17 90/47 12/12/22 22:40 64 18 109/84 12/12/22 22:30 63 11 L 96/56 12/12/22 22:20 62 16 96/56 12/12/22 22:10 63 18 95/49 12/12/22 22:00 65 29 H 97/56 12/12/22 21:50 64 15 97/56 12/12/22 21:45 62 12/12/22 21:40 49 H 95/62 12/12/22 21:30 77 16 90/42 12/12/22 21:22 73 12/12/22 20:55 79 75/40 12/12/22 20:48 89/53 12/12/22 20:37 70/40 12/12/22 20:29 72/40 12/12/22 20:15 65/37 12/12/22 20:06 72/40 12/12/22 19:58 61/34 12/12/22 19:57 77/41 12/12/22 18:11 94 18 158/83 12/12/22 17:40 102.0 F H 102 H 18 141/101 12/12/22 13:27 97.4 F L 115 H 18 116/87 Pulse Ox 12/13/22 09:00 89 L 12/13/22 08:00 94 L 12/13/22 07:00 94 L 12/13/22 06:50 94 L 12/13/22 06:40 93 L 12/13/22 06:30 92 L 12/13/22 06:20 94 L 12/13/22 06:10 95 12/13/22 06:00 96 12/13/22 05:50 96 12/13/22 05:40 96 12/13/22 05:30 95 12/13/22 05:20 96 12/13/22 05:10 96 12/13/22 05:00 98 12/13/22 04:50 96 12/13/22 04:40 96 12/13/22 04:30 97 12/13/22 04:20 90 L 12/13/22 04:10 90 L 12/13/22 04:00 93 L 12/13/22 03:50 89 L 12/13/22 03:40 89 L 12/13/22 03:30 90 L 12/13/22 03:20 93 L 12/13/22 03:10 94 L 12/13/22 03:00 12/13/22 02:50 12/13/22 02:40 12/13/22 02:30 92 L 12/13/22 02:20 92 L 12/13/22 02:10 92 L 12/13/22 02:00 92 L 12/13/22 01:50 92 L 12/13/22 01:40 90 L 12/13/22 01:30 94 L 12/13/22 01:20 92 L 12/13/22 01:10 91 L 12/13/22 01:00 91 L 12/13/22 00:50 91 L 12/13/22 00:40 90 L 12/13/22 00:30 90 L 12/13/22 00:20 92 L 12/13/22 00:10 91 L 12/13/22 00:00 94 L 12/12/22 23:50 93 L 12/12/22 23:40 96 12/12/22 23:30 96 12/12/22 23:20 97 12/12/22 23:10 95 12/12/22 23:01 96 12/12/22 23:00 95 12/12/22 22:50 95 12/12/22 22:40 96 12/12/22 22:30 97 12/12/22 22:20 96 12/12/22 22:10 96 12/12/22 22:00 96 12/12/22 21:50 96 12/12/22 21:45 12/12/22 21:40 97 12/12/22 21:30 96 12/12/22 21:22 96 12/12/22 20:55 12/12/22 20:48 12/12/22 20:37 12/12/22 20:29 12/12/22 20:15 12/12/22 20:06 12/12/22 19:58 12/12/22 19:57 12/12/22 18:11 91 L 12/12/22 17:40 93 L 12/12/22 13:27 95 Intake and Output 12/12/22 12/13/22 12/13/22 22:59 06:59 14:59 Intake Total 2330 1294.000 460 Output Total 400 180 83 Balance 1930 1114.000 377 Intake: IV 2130 1040 260 IV Bolus 2000 Sodium Chloride 0.9% 1, 130 1040 260 000 ml @ 130 mls/hr IV . Q7H42M [facility] Rx#:[id number] Intake, IV Titration 200 254.000 200 Amount Cefepime 2 gm In Sodium 100 Chloride 0.9% 100 ml @ 25 mls/hr IVPB Q12HR [facility] Rx #:[id number] Norepinephrine 4 mg In 254.000 Sodium Chloride 0.9% 250 ml @ 0.03 MCG/KG/MIN 14. 517 mls/hr IV .[id number] [facility] Rx#:[id number] Potassium Chloride 10 meq 200 In Water For Injection 1 100ml.bag @ 100 mls/hr IVPB Q1HR [facility] Rx#: [id number] metroNIDAZOLE-NS PMX 500 100 mg In Saline 1 100ml.bag @ 100 mls/hr IVPB ONCE ONE Rx#:[id number] Output: Urine 400 180 83 Other: Voiding Method Indwelling Catheter Indwelling Catheter Weight 127.006 kg 142.3 kg Results CBC & Chem 7: 12/13/22 03:58 12/13/22 03:58 Labs: Abnormal Lab Results - Last 24 Hours (Table) 12/12/22 12/12/22 12/13/22 Range/Units 13:53 18:24 03:58 WBC 14.6 H 12.2 H (3.8-10.6) k/uL RBC 3.27 L (3.80-5.40) m/uL Hgb 10.3 L (11.4-16.0) gm/dL Hct 31.5 L (34.0-46.0) % Plt Count 103 L 98 L (150-450) k/uL Neutrophils # 13.5 H 10.5 H (1.3-7.7) k/uL Lymphocytes # 0.5 L 0.9 L (1.0-4.8) k/uL ESR 39 H (0-20) mm/hr Potassium (3.5-5.1) mmol/L Chloride (98-107) mmol/L Carbon Dioxide (22-30) mmol/L BUN (7-17) mg/dL Calcium (8.4-10.2) mg/dL Total Bilirubin (0.2-1.3) mg/dL AST (14-36) U/L ALT (4-34) U/L Alkaline Phosphatase (38-126) U/L C-Reactive Protein (<1.0) mg/dL Total Protein (6.3-8.2) g/dL Albumin (3.5-5.0) g/dL Urine Protein Trace H (Negative) Urine Ketones 1+ H (Negative) 12/13/22 Range/Units 03:58 WBC (3.8-10.6) k/uL RBC (3.80-5.40) m/uL Hgb (11.4-16.0) gm/dL Hct (34.0-46.0) % Plt Count (150-450) k/uL Neutrophils # (1.3-7.7) k/uL Lymphocytes # (1.0-4.8) k/uL ESR (0-20) mm/hr Potassium 3.2 L (3.5-5.1) mmol/L Chloride 112 H (98-107) mmol/L Carbon Dioxide 20 L (22-30) mmol/L BUN 18 H (7-17) mg/dL Calcium 7.8 L (8.4-10.2) mg/dL Total Bilirubin 2.1 H (0.2-1.3) mg/dL AST 90 H (14-36) U/L ALT 37 H (4-34) U/L Alkaline Phosphatase 127 H (38-126) U/L C-Reactive Protein 18.8 H (<1.0) mg/dL Total Protein 5.2 L (6.3-8.2) g/dL Albumin 2.6 L (3.5-5.0) g/dL Urine Protein (Negative) Urine Ketones (Negative) Assessment and Plan Plan: Patient presented to hospital with sepsis in this patient with a fever tachycardia elevated white count source is left lower extremity cellulitis especially significant swelling redness of the left medial thigh area need to rule out underlying abscess. 2patient with multiple antibiotic allergies that would limit the number of antibiotics safe to use. 3we will obtain ultrasound of the left thigh to make sure no evidence of any fluid suspicious for abscess that may need to be drained. 4local wound culture from the wound to the left posterior leg as possible source of this infection. 5continue with the cefepime however I will add daptomycin to cover for the gram-positive while waiting for the culture to finalize. 6local wound care with a dry Aquacel silver dressing followed by Yaya wrap for compression change every 48 hour. We will follow on clinical condition and cultures to further adjust medication if needed Thank you for this consultation we will follow the patient along with you Dictation was produced using MAT[employer]visionation software. please excuse any grammatical, word or spelling errors. Time with Patient: Greater than 30
[2022-12-14 05:37] LABS: Basophils % (A) 0 %; Eosinophils # (A) 0.2 k/uL (0-0.7); Eosinophils % (A) 2 %; HCT 32.3 % (34.0-46.0); HGB 10.1 gm/dL (11.4-16.0); Hypochromasia Marked; Lymphocytes # (A) 0.4 k/uL (1.0-4.8); Lymphocytes % (A) 5 %; MCH 30.8 pg (25.0-35.0); MCHC 31.3 g/dL (31.0-37.0); MCV 98.3 fL (80.0-100.0); Mean Platelet Volume 11.2; Monocytes # (A) 0.3 k/uL (0-1.0); Monocytes % (A) 4 %; Neutrophils # (A) 7.1 k/uL (1.3-7.7); Neutrophils % (A) 88 %; RBC 3.29 m/uL (3.80-5.40); RDW 14.2 % (11.5-15.5)
[2022-12-14 05:48] LABS: African American GFR (CKD) >90 (>60 ml/min/1.73 sqM); Anion Gap 5 mmol/L; Blood Urea Nitrogen 17 mg/dL (7-17); Calcium 8.2 mg/dL (8.4-10.2); Carbon Dioxide 21 mmol/L (22-30); Chloride 114 mmol/L (98-107); Glucose 91 mg/dL (74-99); Non-African American GFR(CKD) 84 (>60 ml/min/1.73 sqM); Potassium 4.2 mmol/L (3.5-5.1); Sodium 140 mmol/L (137-145)
[2022-12-14 06:08] LABS: Platelet Count 75 k/uL (150-450)
[2022-12-14] MEDS: LEVOTHYROXINE 100 MCG TAB PO SCH (06:20)
[2022-12-14] MEDS: SODIUM CHLORIDE 0.9% 1,000 ML IV SCH ×4 (06:22→11:49)
[2022-12-14] MEDS: MORPHINE SULFATE 4 MG/ML SYRINGE IV PRN ×2 (06:58→21:47)
[2022-12-14] MEDS: ASCORBIC ACID 500 MG TAB PO SCH (08:35)
[2022-12-14] MEDS: HEPARIN SODIUM,PORCINE 5,000 UNIT/ML 1 ML VIAL SQ SCH ×2 (08:35→21:46)
[2022-12-14] MEDS: FAMOTIDINE 20 MG/2 ML VIAL IV SCH ×2 (08:35→21:47)
[2022-12-14] MEDS: CHOLECALCIFEROL 25 MCG (1000 IU) TABLET PO SCH (08:35)
[2022-12-14] MEDS: PREGABALIN 100 MG CAP PO SCH ×3 (08:35→21:46)
[2022-12-14] MEDS: CEFEPIME 2 GM in SODIUM CHLORIDE 0.9% 100 ML IVPB SCH ×2 (08:35→21:47)
[2022-12-14] MEDS ORDERED: DAPTOMYCIN IVPB SCH (09:00)
[2022-12-14] MEDS ORDERED: SODIUM CHLORIDE 0.9% IVPB SCH (09:00)
[2022-12-14] MEDS: NOREPINEPHRINE 4 MG in SODIUM CHLORIDE 0.9% 250 ML IV SCH (09:18)
[2022-12-14] MEDS ORDERED: FUROSEMIDE 10 MG/ML 4 ML VIAL IV STA (09:39)
--- NOTE | 2022-12-14 09:45 | P.PN ---
Subjective Progress Note Date: 12/14/22 This is a 67-year-old female patient with a known history of hyperlipidemia, hypertension, osteoarthritis, hypothyroidism, neuropathy of the bilateral feet with chronic venous stasis and previous cellulitis and osteomyelitis with multiple toes amputated on the left foot. Previous MRSA infection of the left foot as well. She follows at the wound Center. She was having increasing pain and redness, warmth of the left thigh posteriorly and came here to the emergency room for the same. He was initially admitted to the regular medical floor at approximately 8:00 last night she developed hypotension and rapid response team was called. She was subsequently transferred to the intensive care unit. She is seen today in consultation. She is awake and alert in no acute distress. She is on norepinephrine at 0.02 mcg/kg/m. She received 2 L of fluid resuscitation. She is initiated on cefepime. She received Flagyl 1. Previous wound cultures from June 2021 of the left foot were positive for MSSA and Enterobacter cloacae, enterococcus faecalis VRE. White count 12.2. Hemoglobin 10.3. Platelets 98,000. Sodium 139. Potassium 3.2. Bicarb 20. BUN 18. Creatinine 0.87. AST 90. ALT 37. Influenza screen negative. RSV screen negative. COVID-19 screen negative. Doppler of the left lower extremity was negative for DVT. X-ray reveals low lung volumes with generalized hazy appearance possible atelectasis versus pulmonary edema. The patient is seen today 12/14/2022 and follow-up in the intensive care unit. She is currently sitting up in bed. Awake and alert in no acute distress. B reathing easier today compared to yesterday. She is maintaining good O2 saturations in the mid 90s on 2 L nasal cannula. She has been off norepinephrine. Normal saline at 130 ML's per hour. She is in a +5 L balance since admission. Blood pressure stable. Doppler of the left lower extremity ruled out DVT. There is subcutaneous edema without organizing fluid collection. No evidence of abscess. Blood cultures reveal no growth to date. White count 8.0. Hemoglobin 10.1. Platelets 75,000. Sodium 140. Potassium 4.2. Bicarb 21. BUN 17. Creatinine 0.74. ProBNP 85. Pro-calcitonin 1.41. Cortisol level was 10. She remains on daptomycin and cefepime. Objective - Vital Signs Vital signs: Vital Signs Temp 98.6 F 12/14/22 04:00 Pulse 76 12/14/22 08:00 Resp 18 12/14/22 08:00 BP 110/58 12/14/22 08:00 Pulse Ox 98 12/14/22 08:00 FiO2 Intake & Output 12/13/22 12/14/22 12/14/22 18:59 06:59 18:59 Intake Total 1730 1690 670 Output Total 384 625 65 Balance 1346 1065 605 Weight 144.6 kg Intake: IV 1430 1690 130 Sodium Chloride 0.9% 1, 1430 1690 130 000 ml @ 130 mls/hr IV . Q7H42M [facility] Rx#:[id number] Intake, IV Titration 300 Amount DAPTOmycin 400 mg In 100 Sodium Chloride 0.9% 50 ml @ 100 mls/hr IVPB Q24HR [facility] Rx#:[id number] Potassium Chloride 10 meq 200 In Water For Injection 1 100ml.bag @ 100 mls/hr IVPB Q1HR [facility] Rx#: [id number] Oral 540 Output: Urine 384 625 65 Other: Voiding Method Indwelling Catheter Indwelling Catheter Indwelling Catheter - Exam GENERAL EXAM: Alert, morbidly obese 67-year-old female, on 2 L nasal cannula, in no apparent distress. HEAD: Normocephalic. EYES: Normal reaction of pupils, equal size. NOSE: Clear with pink turbinates. THROAT: No erythema or exudates. NECK: No masses, no JVD. CHEST: No chest wall deformity. LUNGS: Equal air entry with no crackles, wheeze, rhonchi or dullness. CVS: S1 and S2 normal with no audible murmur, regular rhythm. ABDOMEN: No hepatosplenomegaly, normal bowel sounds, no guarding or rigidity. SPINE: No scoliosis or deformity SKIN: No rashes CENTRAL NERVOUS SYSTEM: No focal deficits, tone is normal in all 4 extremities. EXTREMITIES: Changes of chronic venous stasis. Previous amputations of the left upper second and third toe. Redness and warmth of the left thigh. No clubbing, no cyanosis. Peripheral pulses are intact. - Labs CBC & Chem 7: 12/14/22 04:56 12/14/22 04:56 Labs: Abnormal Lab Results - Last 24 Hours (Table) 12/13/22 12/13/22 12/14/22 Range/Units 03:53 13:08 04:56 RBC (3.80-5.40) m/uL Hgb (11.4-16.0) gm/dL Hct (34.0-46.0) % Plt Count (150-450) k/uL Lymphocytes # (1.0-4.8) k/uL Chloride 114 H (98-107) mmol/L Carbon Dioxide 21 L (22-30) mmol/L Calcium 8.2 L (8.4-10.2) mg/dL Procalcitonin 1.41 H (0.02-0.09) ng/mL TSH 0.191 L (0.465-4.680) mIU/L 12/14/22 Range/Units 04:56 RBC 3.29 L (3.80-5.40) m/uL Hgb 10.1 L (11.4-16.0) gm/dL Hct 32.3 L (34.0-46.0) % Plt Count 75 L (150-450) k/uL Lymphocytes # 0.4 L (1.0-4.8) k/uL Chloride (98-107) mmol/L Carbon Dioxide (22-30) mmol/L Calcium (8.4-10.2) mg/dL Procalcitonin (0.02-0.09) ng/mL TSH (0.465-4.680) mIU/L Microbiology - Last 24 Hours (Table) 12/12/22 14:00 Blood Culture - Preliminary Blood 12/12/22 13:45 Blood Culture - Preliminary Blood Assessment and Plan Assessment: Hypotension requiring pressor support secondary to sepsis Sepsis secondary to cellulitis of the left thigh Cellulitis of the left thigh Leukocytosis secondary to above Morbid obesity with a BMI of 48.5 kg/m Bilateral neuropathy of the lower extremities, nonambulatory, pivots to wheelcha ir Hypothyroidism Hyperlipidemia History of hypertension Osteoarthritis Previous history of MRSA, 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 Number of minutes spent on the visit: 10.
[2022-12-14] MEDS: BUTALB/APAP/CAFF 50-325-40MG TAB PO PRN (15:07)
--- NOTE | 2022-12-14 20:02 | P.PN ---
Subjective Progress Note Date: 12/14/22 67-year-old female presents emergency Department complaining that she has pain in the upper posterior thigh since last night she states is getting more swollen and more tender. Patient states she thinks there is also warm. Patient denies any difficulty breathing shortness of breath or chest pain. Patient denies any palpitations. Patient denies any lightheadedness or dizziness. Patient denies any back pain. 59 female DF for evaluation of severe left upper thigh pain significant swelling and tenderness. Patient states his appointment with the pain is causing to be disabled debilitated if she cannot currently ambulate secondary to pain. Patient does live by herself White count 12.2. Hemoglobin 10.3. Platelets 98,000. Sodium 139. Potassium 3.2. Bicarb 20. BUN 18. Creatinine 0.87. AST 90. ALT 37. Influenza screen negative. RSV screen negative. COVID-19 screen negative. Doppler of the left lower extremity was negative for DVT. X-ray reveals low lung volumes with generalized hazy appearance possible atelectasis versus pulmonary edema. Patient is being admitted to hospital for IV antibiotic treatment and evaluation by ID -- Patient developed profound hypotension and was transferred to ICU through the night; has required pressor agents; patient has been continued on IV cefepime and daptomycin is admitted 12/14/2022 Patient is seen and evaluated in room at bedside; admitted with sepsis irelated to left lower extremity cellulitis especially significant swelling redness of the left medial thigh area need to rule out underlying abscess. wID recommending ultrasound of the left thigh to make sure no evidence of any fluid suspicious for abscess that may need to be drained. local wound culture from the wound to the left posterior leg as possible source of this infection. continue with the cefepime however I will add daptomycin to cover for the gram- positive while waiting for the culture to finalize. local wound care with a dry Aquacel silver dressing followed by Yaya wrap for compression change every 48 hour. Objective - Vital Signs Vital signs: Vital Signs Temp 98.6 F 12/14/22 04:00 Pulse 76 12/14/22 08:00 Resp 18 12/14/22 08:00 BP 110/58 12/14/22 08:00 Pulse Ox 98 12/14/22 08:00 FiO2 Intake & Output 08/19/23 08/20/23 08/20/23 18:59 06:59 18:59 Intake Total 1730 1690 130 Output Total 384 625 65 Balance 1346 1065 65 Weight 144.6 kg Intake: IV 1430 1690 130 Sodium Chloride 0.9% 1, 1430 1690 130 000 ml @ 130 mls/hr IV . Q7H42M [facility] Rx#:[id number] Intake, IV Titration 300 Amount DAPTOmycin 400 mg In 100 Sodium Chloride 0.9% 50 ml @ 100 mls/hr IVPB Q24HR [facility] Rx#:[id number] Potassium Chloride 10 meq 200 In Water For Injection 1 100ml.bag @ 100 mls/hr IVPB Q1HR [facility] Rx#: [id number] Output: Urine 384 625 65 Other: Voiding Method Indwelling Catheter Indwelling Catheter Indwelling Catheter - Exam General appearance: alert, in no apparent distress, lethargic, obese Head exam: Present: atraumatic, normocephalic, normal inspection Eye exam: Present: normal appearance, PERRL, EOMI. Absent: scleral icterus, conjunctival injection, periorbital swelling Neck exam: Present: normal inspection. Absent: tenderness, meningismus, lymphadenopathy Respiratory exam: Present: normal lung sounds bilaterally. Absent: respiratory distress, wheezes, rales, rhonchi, stridor Cardiovascular Exam: Present: regular rate, normal rhythm, normal heart sounds. Absent: systolic murmur, diastolic murmur, rubs, gallop, clicks GI/Abdominal exam: Present: soft, normal bowel sounds. Absent: distended, tenderness, guarding, rebound, rigid Extremities exam: Present: tenderness, normal capillary refill, other (L thigh erythema, edema). Absent: full ROM, pedal edema, joint swelling, calf tenderness Neurological exam: Present: alert, oriented X3, CN II-XII intact Skin exam: Present: warm, dry, intact, normal color. Absent: rash - Labs CBC & Chem 7: 12/14/22 04:56 12/14/22 04:56 Labs: Abnormal Lab Results - Last 24 Hours (Table) 12/13/22 12/13/22 12/14/22 Range/Units 03:53 13:08 04:56 RBC (3.80-5.40) m/uL Hgb (11.4-16.0) gm/dL Hct (34.0-46.0) % Plt Count (150-450) k/uL Lymphocytes # (1.0-4.8) k/uL Chloride 114 H (98-107) mmol/L Carbon Dioxide 21 L (22-30) mmol/L Calcium 8.2 L (8.4-10.2) mg/dL Procalcitonin 1.41 H (0.02-0.09) ng/mL TSH 0.191 L (0.465-4.680) mIU/L 12/14/22 Range/Units 04:56 RBC 3.29 L (3.80-5.40) m/uL Hgb 10.1 L (11.4-16.0) gm/dL Hct 32.3 L (34.0-46.0) % Plt Count 75 L (150-450) k/uL Lymphocytes # 0.4 L (1.0-4.8) k/uL Chloride (98-107) mmol/L Carbon Dioxide (22-30) mmol/L Calcium (8.4-10.2) mg/dL Procalcitonin (0.02-0.09) ng/mL TSH (0.465-4.680) mIU/L Microbiology - Last 24 Hours (Table) 12/12/22 14:00 Blood Culture - Preliminary Blood 12/12/22 13:45 Blood Culture - Preliminary Blood Assessment and Plan Assessment: 1. Sepsis/cellulitis left thigh - Sepsis as indicated by leukocytosis, abnormal inflammatory markers - Patient is in place and IV cefepime; blood cultures are obtained - Consult ID for further recommendations on IV antibiotics 2. Leukocytosis; related to 1 3. Anemia/thrombocytopenia/bicytopenia; chronic; patient has a baseline hemoglobin of 10.9 with platelet count around 130s; we will monitor CBC closely; plan to consult hematology if blood counts continue to trend down 4. Hypokalemia/electrolyte imbalance; potassium supplemented in ED; we will monitor electrolytes closely and further recommendations as needed 5. Mild MARTIN; patient treated with IV fluid boluses in ED; we'll monitor strict KATHYA's, daily weights, renal function and electrolytes; avoid nephrotoxins and hypotension 6. Elevated liver enzymes; transaminitis/hyperbilirubinemia; likely related to sepsis; we will monitor liver function periodically the plans of further testing if liver enzymes continue to trend up 7. Hypertension; Zestril 20 mg daily 8. Hyperlipidemia; Lipitor 10 mg by mouth daily at bedtime 9. Hypothyroidism; levothyroxin 100 MCG daily 10. Neuropathy both lower extremities; Elavil 10 mg by mouth daily at bedtime, Lyrica 100 mg by mouth 3 times a day 11. Morbid obesity; counseling done
[2022-12-14] MEDS: AMITRIPTYLINE HCL 10 MG TAB PO SCH (21:46)
[2022-12-15] MEDS: NOREPINEPHRINE 4 MG in SODIUM CHLORIDE 0.9% 250 ML IV SCH ×2 (01:48→18:32)
[2022-12-15 06:13] LABS: Basophils % (A) 0 %; Eosinophils # (A) 0.1 k/uL (0-0.7); Eosinophils % (A) 2 %; HCT 29.2 % (34.0-46.0); HGB 9.6 gm/dL (11.4-16.0); Hypochromasia Slight; Lymphocytes # (A) 0.6 k/uL (1.0-4.8); Lymphocytes % (A) 10 %; MCH 31.1 pg (25.0-35.0); MCHC 32.7 g/dL (31.0-37.0); MCV 95.1 fL (80.0-100.0); Mean Platelet Volume 10.6; Monocytes # (A) 0.4 k/uL (0-1.0); Monocytes % (A) 6 %; Neutrophils # (A) 4.6 k/uL (1.3-7.7); Neutrophils % (A) 80 %; Platelet Count 110 k/uL (150-450); RBC 3.07 m/uL (3.80-5.40); RDW 14.2 % (11.5-15.5); WBC 5.8 k/uL (3.8-10.6)
[2022-12-15] MEDS: SODIUM CHLORIDE 0.9% 1,000 ML IV SCH (06:24)
[2022-12-15 06:35] LABS: African American GFR (CKD) >90 (>60 ml/min/1.73 sqM); Blood Urea Nitrogen 13 mg/dL (7-17); Calcium 8.1 mg/dL (8.4-10.2); Carbon Dioxide 27 mmol/L (22-30); Glucose 81 mg/dL (74-99); Non-African American GFR(CKD) 84 (>60 ml/min/1.73 sqM)
[2022-12-15 06:51] LABS: Anion Gap 2 mmol/L; Chloride 108 mmol/L (98-107); Potassium 3.9 mmol/L (3.5-5.1); Sodium 137 mmol/L (137-145)
[2022-12-15] MEDS: LEVOTHYROXINE 100 MCG TAB PO SCH (06:55)
--- NOTE | 2022-12-15 07:31 | P.PN ---
Subjective Progress Note Date: 12/14/22 Principal diagnosis: Left leg wound and Cellulitis Patient is 67-year-old female with past medical his significant for hypertension hyperlipidemia diabetes mellitus history of diabetic foot infection requiring amputation of the toes currently did have a nonhealing wound to the left posterior leg area for the patient to follow with Dr. Dnaielson in the wound care center patient is presenting to [facility] ER for evaluation of left medial thigh pain swelling and tenderness, patient was noticed to be septic hypertension requiring admission to the ICU. On today's evaluation that is 12/14/2022, patient is afebrile the patient is breathing comfortably on 2 L nasal cannula oxygen denies any chest pain or shortness of breath or cough left medial thigh pain and swelling slightly decreased no nausea vomiting no abdominal pain no diarrhea. Patient white count has normalized down to 8.0 creatinine is 0.74 left thigh ultrasound was negative for any abscess blood cultures pending left leg wound cultures currently pending Objective - Vital Signs Vital signs: Vital Signs Temp 98.6 F 12/14/22 04:00 Pulse 72 12/14/22 09:00 Resp 12 12/14/22 09:00 BP 114/66 12/14/22 09:00 Pulse Ox 95 12/14/22 09:00 FiO2 Intake & Output 12/13/22 12/14/22 12/14/22 18:59 06:59 18:59 Intake Total 1730 1690 1450 Output Total 966 734 1984 Balance 1346 1065 -1965 Weight 144.6 kg Intake: IV 1430 1690 580 Sodium Chloride 0.9% 1, 1430 1690 580 000 ml @ 75 mls/hr IV . [id number] [facility] Rx#:[id number] Intake, IV Titration 300 150 Amount Cefepime 2 gm In Sodium 100 Chloride 0.9% 100 ml @ 25 mls/hr IVPB Q12HR [facility] Rx #:[id number] DAPTOmycin 400 mg In 100 50 Sodium Chloride 0.9% 50 ml @ 100 mls/hr IVPB Q24HR [facility] Rx#:[id number] Potassium Chloride 10 meq 200 In Water For Injection 1 100ml.bag @ 100 mls/hr IVPB Q1HR [facility] Rx#: [id number] Oral 720 Output: Urine 646 404 3828 Other: Voiding Method Indwelling Catheter Indwelling Catheter Indwelling Catheter - Exam GENERAL DESCRIPTION: Elderly female lying in bed in no distress RESPIRATORY SYSTEM: Unlabored breathing , decreased breath sounds at bases HEART: S1 S2 regular rate and rhythm ,no loud murmurs ABDOMEN: Soft , no tenderness EXTREMITIES left leg wound is currently dressed no drainage on the dressing - Labs CBC & Chem 7: 12/15/22 05:54 12/15/22 05:54 Labs: Abnormal Lab Results - Last 24 Hours (Table) 12/13/22 12/14/22 12/14/22 Range/Units 13:08 04:56 04:56 RBC 3.29 L (3.80-5.40) m/uL Hgb 10.1 L (11.4-16.0) gm/dL Hct 32.3 L (34.0-46.0) % Plt Count 75 L (150-450) k/uL Lymphocytes # 0.4 L (1.0-4.8) k/uL Chloride 114 H (98-107) mmol/L Carbon Dioxide 21 L (22-30) mmol/L Calcium 8.2 L (8.4-10.2) mg/dL TSH 0.191 L (0.465-4.680) mIU/L Microbiology - Last 24 Hours (Table) 12/12/22 14:00 Blood Culture - Preliminary Blood 12/12/22 13:45 Blood Culture - Preliminary Blood Assessment and Plan (1) Cellulitis of left leg Current Visit: Yes Status: Acute Code(s): L03.116 - CELLULITIS OF LEFT LOWER LIMB SNOMED Code(s): 528616368 (2) Sepsis Current Visit: Yes Status: Acute Code(s): A41.9 - SEPSIS, UNSPECIFIED ORGANISM SNOMED Code(s): 18215483 Plan: Patient presented to hospital with sepsis in this patient with a fever tachycardia elevated white count source is left lower extremity cellulitis especially significant swelling redness of the left medial thigh area need to rule out underlying abscess. 2patient with multiple antibiotic allergies that would limit the number of antibiotics safe to use. 3ultrasound of the left medial thigh was negative for any abscess. 4local wound care to the left leg wound with Aquacel silver dressing change every 48 hour. 5we will keep the patient on cefepime and daptomycin while waiting for the culture to finalize and monitor clinical course closely Dictation was produced using dragon dictation software. please excuse any grammatical, word or spelling errors.
[2022-12-15] MEDS: FAMOTIDINE 20 MG/2 ML VIAL IV SCH ×2 (08:28→21:08)
[2022-12-15] MEDS: HEPARIN SODIUM,PORCINE 5,000 UNIT/ML 1 ML VIAL SQ SCH ×2 (08:28→21:09)
[2022-12-15] MEDS: PREGABALIN 100 MG CAP PO SCH ×3 (08:28→21:08)
[2022-12-15] MEDS: ASCORBIC ACID 500 MG TAB PO SCH (08:28)
[2022-12-15] MEDS: CHOLECALCIFEROL 25 MCG (1000 IU) TABLET PO SCH (08:28)
--- NOTE | 2022-12-15 08:58 | P.PN ---
Subjective Progress Note Date: 12/15/22 This is a 67-year-old female patient with a known history of hyperlipidemia, hypertension, osteoarthritis, hypothyroidism, neuropathy of the bilateral feet with chronic venous stasis and previous cellulitis and osteomyelitis with multiple toes amputated on the left foot. Previous MRSA infection of the left foot as well. She follows at the wound Center. She was having increasing pain and redness, warmth of the left thigh posteriorly and came here to the emergency room for the same. He was initially admitted to the regular medical floor at approximately 8:00 last night she developed hypotension and rapid response team was called. She was subsequently transferred to the intensive care unit. She is seen today in consultation. She is awake and alert in no acute distress. She is on norepinephrine at 0.02 mcg/kg/m. She received 2 L of fluid resuscitation. She is initiated on cefepime. She received Flagyl 1. Previous wound cultures from June 2021 of the left foot were positive for MSSA and Enterobacter cloacae, enterococcus faecalis VRE. White count 12.2. Hemoglobin 10.3. Platelets 98,000. Sodium 139. Potassium 3.2. Bicarb 20. BUN 18. Creatinine 0.87. AST 90. ALT 37. Influenza screen negative. RSV screen negative. COVID-19 screen negative. Doppler of the left lower extremity was negative for DVT. X-ray reveals low lung volumes with generalized hazy appearance possible atelectasis versus pulmonary edema. The patient is seen today 12/14/2022 and follow-up in the intensive care unit. She is currently sitting up in bed. Awake and alert in no acute distress. Breathing easier today compared to yesterday. She is maintaining good O2 saturations in the mid 90s on 2 L nasal cannula. She has been off norepinephrine. Normal saline at 130 ML's per hour. She is in a +5 L balance since admission. Blood pressure stable. Doppler of the left lower extremity ru led out DVT. There is subcutaneous edema without organizing fluid collection. No evidence of abscess. Blood cultures reveal no growth to date. White count 8.0. Hemoglobin 10.1. Platelets 75,000. Sodium 140. Potassium 4.2. Bicarb 21. BUN 17. Creatinine 0.74. ProBNP 85. Pro-calcitonin 1.41. Cortisol level was 10. She remains on daptomycin and cefepime. On today's evaluation of a 2022, I'm seeing the patient for a follow-up. The patient was in the intensive care unit for sepsis related to cellulitis of the patient has bilateral lower extremity cellulitis and chronic venous stasis in the legs. She has also previous history of osteomyelitis on multiple to amputation of the left foot and she has had previous MRSA infection of the left foot as well. She has hypertension, hyperlipidemia, osteoarthritis, hypothyroidism and history of neuropathy. The patient is currently on a combination of daptomycin and IV cefepime. She is currently off pressors. She is on IV fluids which is running at a rate of 75 mL an hour of normal saline. His resting comfortably in bed and she is currently on room air oxygen. In terms of her blood work, the patient's white cell sounds at 5.8 with a hemoglobin of 9.6 and a platelet count of 110. Electrodes are within normal limits. Her serum cortisol was 10. Pro-calcitonin was 1.4 from 12/13/2022. The blood culture still negative. Ultrasound Doppler of the lower extremities as well as done on 12/13/2022 showed septic in his emphysema without any organizing fluid or collection. This cellulitis is in her left thigh is improved considerably. There is no significant erythema on today's evaluation. She also has wounds feet/ankles bilaterally on the lateral aspect. No active purulent drainage at this point in time and the patient is receiving wound [facility] with [facility]. Objective - Vital Signs Vital signs: Vital Signs Temp 98.4 F 12/15/22 08:00 Pulse 71 12/15/22 08:00 Resp 19 12/15/22 08:00 BP 119/74 12/15/22 08:00 Pulse Ox 90 L 12/15/22 08:34 FiO2 Intake & Output 12/14/22 12/15/22 12/15/22 18:59 06:59 18:59 Intake Total 2510 840 850 Output Total 4915 250 325 Balance -2405 590 525 Weight 142.7 kg Intake: IV 1100 300 600 Sodium Chloride 0.9% 1, 1100 300 600 000 ml @ 75 mls/hr IV . [id number] [facility] Rx#:[id number] Intake, IV Titration 150 Amount Cefepime 2 gm In Sodium 100 Chloride 0.9% 100 ml @ 25 mls/hr IVPB Q12HR [facility] Rx #:[id number] DAPTOmycin 400 mg In 50 Sodium Chloride 0.9% 50 ml @ 100 mls/hr IVPB Q24HR [facility] Rx#:[id number] Oral 1260 540 250 Output: Urine 4915 250 325 Other: Voiding Method Indwelling Catheter Indwelling Catheter - Exam GENERAL EXAM: Alert, morbidly obese 67-year-old female, on RA nasal cannula, in no apparent distress. HEAD: Normocephalic. EYES: Normal reaction of pupils, equal size. NOSE: Clear with pink turbinates. THROAT: No erythema or exudates. NECK: No masses, no JVD. CHEST: No chest wall deformity. LUNGS: Equal air entry with no crackles, wheeze, rhonchi or dullness. CVS: S1 and S2 normal with no audible murmur, regular rhythm. ABDOMEN: No hepatosplenomegaly, normal bowel sounds, no guarding or rigidity. SPINE: No scoliosis or deformity SKIN: No rashes, wounds of various sizes on the lateral aspect of the ankle on the left than on the right bilaterally. No active drainage. Cellulitis left lower extremity thigh area is improving and the area is obviously warp dyeing vat tender. Not erythematous. She has chronic venous stasis and lower extremity is bilaterally. She has had previous amputations in her left foot. CENTRAL NERVOUS SYSTEM: No focal deficits, tone is normal in all 4 extremities. EXTREMITIES: Changes of chronic venous stasis. Previous amputations of the left upper second and third toe. Redness and warmth of the left thigh, improved. No clubbing, no cyanosis. Peripheral pulses are intact. - Labs CBC & Chem 7: 12/15/22 05:54 12/15/22 05:54 Labs: Abnormal Lab Results - Last 24 Hours (Table) 12/15/22 12/15/22 Range/Units 05:54 05:54 RBC 3.07 L (3.80-5.40) m/uL Hgb 9.6 L (11.4-16.0) gm/dL Hct 29.2 L (34.0-46.0) % Plt Count 110 L (150-450) k/uL Lymphocytes # 0.6 L (1.0-4.8) k/uL Chloride 108 H (98-107) mmol/L Calcium 8.1 L (8.4-10.2) mg/dL Microbiology - Last 24 Hours (Table) 12/13/22 11:40 Gram Stain - Preliminary Leg - Left 12/12/22 14:00 Blood Culture - Preliminary Blood 12/12/22 13:45 Blood Culture - Preliminary Blood Assessment and Plan Plan: Sepsis with secondary hypotension, recovered and the patient is currently hemodynamically stable on no pressors, still a normal sed rate of 75 mL an hour Sepsis secondary to cellulitis of the left thigh, improved Cellulitis of the left thigh, improving Chronic ones in her feet bilaterally, lateral last of the ankle, several wounds on the left and one on the right of various sizes. 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 No GI symptoms at this point in time. Former smoker Plan: Continue cefepime, daptomycin Continue wound care with medi honey and dressing/nonadherent adherent dressing No pressors for now Change IV fluids to KVO Continue wound care Continue Synthroid Continue Lyrica Continue amitriptyline Currently on room air oxygen Transfer to the regular medical floor We will continue to follow
[2022-12-15] MEDS: CEFEPIME 2 GM in SODIUM CHLORIDE 0.9% 100 ML IVPB SCH ×2 (09:07→21:12)
[2022-12-15] MEDS: HYDROcodone/APAP 10-325MG 1 EACH TAB PO PRN ×2 (09:12→21:07)
[2022-12-15] MEDS: polyethylene glycoL 3350 17 GM POWD.PACK PO SCH (10:01)
--- NOTE | 2022-12-15 12:23 | P.PN ---
Subjective Progress Note Date: 12/15/22 Principal diagnosis: Left leg wound and Cellulitis Patient is 67-year-old female with past medical his significant for hypertension hyperlipidemia diabetes mellitus history of diabetic foot infection requiring amputation of the toes currently did have a nonhealing wound to the left posterior leg area for the patient to follow with Dr. Danielson in the wound care center patient is presenting to [facility] ER for evaluation of left medial thigh pain swelling and tenderness, patient was noticed to be septic hypertension requiring admission to the ICU. On today's evaluation that is 12/15/2022, the patient denies having any fever or any chills, patient is breathing comfortably on room air patient is currently off the pressor support per the nursing staff and pseudomonas or pain to the left thigh area no chest pain shortness of breath or cough no abdominal pain and no diarrhea. Patient white count is normal at 5.8 and creatinine 0.74, blood and local cul tures currently pending Objective - Vital Signs Vital signs: Vital Signs Temp 98.7 F 12/15/22 12:00 Pulse 71 12/15/22 12:00 Resp 24 12/15/22 12:00 BP 110/61 12/15/22 12:00 Pulse Ox 93 L 12/15/22 12:00 FiO2 Intake & Output 12/14/22 12/15/22 12/15/22 18:59 06:59 18:59 Intake Total 2510 840 895 Output Total 4915 250 565 Balance -2405 590 330 Weight 142.7 kg Intake: IV 1100 300 620 Sodium Chloride 0.9% 1, 1100 300 620 000 ml @ 10 mls/hr IV . Q24H VENKAT Rx#:[id number] Intake, IV Titration 150 Amount Cefepime 2 gm In Sodium 100 Chloride 0.9% 100 ml @ 25 mls/hr IVPB Q12HR VENKAT Rx #:[id number] DAPTOmycin 400 mg In 50 Sodium Chloride 0.9% 50 ml @ 100 mls/hr IVPB Q24HR VENKAT Rx#:[id number] Oral 1260 540 275 Output: Urine 4915 250 565 Other: Voiding Method Indwelling Catheter Indwelling Catheter - Exam GENERAL DESCRIPTION: Elderly female lying in bed in no distress RESPIRATORY SYSTEM: Unlabored breathing , decreased breath sounds at bases HEART: S1 S2 regular rate and rhythm ,no loud murmurs ABDOMEN: Soft , no tenderness EXTREMITIES left leg wound is currently dressed no drainage on the dressing - Labs CBC & Chem 7: 12/15/22 05:54 12/15/22 05:54 Labs: Abnormal Lab Results - Last 24 Hours (Table) 12/15/22 12/15/22 Range/Units 05:54 05:54 RBC 3.07 L (3.80-5.40) m/uL Hgb 9.6 L (11.4-16.0) gm/dL Hct 29.2 L (34.0-46.0) % Plt Count 110 L (150-450) k/uL Lymphocytes # 0.6 L (1.0-4.8) k/uL Chloride 108 H (98-107) mmol/L Calcium 8.1 L (8.4-10.2) mg/dL Microbiology - Last 24 Hours (Table) 12/13/22 11:40 Gram Stain - Preliminary Leg - Left 12/12/22 14:00 Blood Culture - Preliminary Blood 12/12/22 13:45 Blood Culture - Preliminary Blood Assessment and Plan (1) Cellulitis of left leg Current Visit: Yes Status: Acute Code(s): L03.116 - CELLULITIS OF LEFT LOWER LIMB SNOMED Code(s): 756606244 (2) Sepsis Current Visit: Yes Status: Acute Code(s): A41.9 - SEPSIS, UNSPECIFIED ORGANISM SNOMED Code(s): 84073433 Plan: Patient presented to hospital with sepsis in this patient with a fever tachycardia elevated white count source is left lower extremity cellulitis especially significant swelling redness of the left medial thigh area need to rule out underlying abscess. 2patient with multiple antibiotic allergies that would limit the number of antibiotics safe to use. 3ultrasound of the left medial thigh was negative for any abscess. 4local wound care to the left leg wound with Aquacel silver dressing change every 48 hour, nursing start changing the dressing this morning mention overall wound is looking better. 5patient seemed to have shown clinical improvement and will continue with cefepime and daptomycin while waiting for the culture to finalize and monitor clinical course closely Dictation was produced using [employer] dictation software. please excuse any grammatical, word or spelling errors. Time with Patient: Less than 30
--- NOTE | 2022-12-15 18:39 | P.PN ---
Progress Note - Text Progress Note Date: 12/15/22 Chief Complaint: Pain upper posterior thigh 67-year-old female presents emergency Department complaining that she has pain in the upper posterior thigh since last night she states is getting more swollen and more tender. Patient states she thinks there is also warm. Patient denies any difficulty breathing shortness of breath or chest pain. Patient denies any palpitations. Patient denies any lightheadedness or dizziness. Patient denies any back pain. 59 female DF for evaluation of severe left upper thigh pain significant swelling and tenderness. Patient states his appointment with the pain is causing to be disabled debilitated if she cannot currently ambulate secondary to pain. Patient does live by herself White count 12.2. Hemoglobin 10.3. Platelets 98,000. Sodium 139. Potassium 3.2. Bicarb 20. BUN 18. Creatinine 0.87. AST 90. ALT 37. Influenza screen negative. RSV screen negative. COVID-19 screen negative. Doppler of the left lower extremity was negative for DVT. X-ray reveals low lung volumes with generalized hazy appearance possible atelectasis versus pulmonary edema. Patient is being admitted to hospital for IV antibiotic treatment and evaluation by ID -- Patient developed profound hypotension and was transferred to ICU through the night; has required pressor agents; patient has been continued on IV cefepime and daptomycin is admitted 12/14/2022 Patient is seen and evaluated in room at bedside; admitted with sepsis irelated to left lower extremity cellulitis especially significant swelling redness of the left medial thigh area need to rule out underlying abscess. wID recommending ultrasound of the left thigh to make sure no evidence of any fluid suspicious for abscess that may need to be drained. local wound culture from the wound to the left posterior leg as possible source of this infection. continue with the cefepime however I will add daptomycin to cover for the gram- positive while waiting for the culture to finalize. local wound care with a dry Aquacel silver dressing followed by Yaya wrap for compression change every 48 hour. 12/15/2022: I assumed care of the patient today. ICU. Reclining in bed. Eating well. On sinus rhythm. Slightly some pain and redness in the inside of the left upper thigh. No fever. On IV cefepime and daptomycin per ID. Past medical history: Hyperlipidemia, hypertension, osteoarthritis, hypothyroid, uses wheelchair, peripheral neuropathy, chronic venous stasis, bilateral lower extremity lymphedema, urinary stress incontinence, lymph edema, umbilical hernia, hypothyroid. 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 Smoked for 20 years stopped in 1990. Alcohol rarely. Lives alone. Uses a wheelchair. Active Medications Acetaminophen/Butalbital/Caffeine (Butalb/Apap/Caff 50-325-40mg Tab) 2 each PO Q4HR PRN PRN Reason: Headache Last Admin: 12/14/22 15:07 Dose: 2 each Hydrocodone Bitart/Acetaminophen (Hydrocodone/Apap 10-325mg 1 Each Tab) 1 each PO Q6H PRN PRN Reason: Pain Last Admin: 12/15/22 09:12 Dose: 1 each Amitriptyline HCl (Amitriptyline Hcl 10 Mg Tab) 10 mg PO HS VENKAT Last Admin: 12/14/22 21:46 Dose: 10 mg Ascorbic Acid (Ascorbic Acid 500 Mg Tab) 1,000 mg PO DAILY VENKAT Last Admin: 12/15/22 08:28 Dose: 1,000 mg Cholecalciferol (Cholecalciferol 25 Mcg (1000 Iu) Tablet) 50 mcg PO DAILY VENKAT Last Admin: 12/15/22 08:28 Dose: 50 mcg Famotidine (Famotidine 20 Mg/2 Ml Vial) 20 mg IV Q12HR VENKAT Last Admin: 12/15/22 08:28 Dose: 20 mg Heparin Sodium (Porcine) (Heparin Sodium,Porcine 5,000 Unit/Ml 1 Ml Vial) 5,000 unit SQ Q12HR VENKAT Last Admin: 12/15/22 08:28 Dose: 5,000 unit Sodium Chloride (Saline 0.9%) 1,000 mls @ 10 mls/hr IV .Q24H VENKAT Last Admin: 12/15/22 06:24 Dose: Not Given Cefepime HCl 2 gm/ Sodium (Chloride) 100 mls @ 25 mls/hr IVPB Q12HR VENKAT; Protocol Last Admin: 12/15/22 09:07 Dose: 25 mls/hr Norepinephrine Bitartrate 4 mg (/ Sodium Chloride) 254 mls @ 14.517 mls/hr IV .[id number] VENKAT; Protocol Last Admin: 12/15/22 01:48 Dose: Not Given Daptomycin 400 mg/ Sodium (Chloride) 50 mls @ 100 mls/hr IVPB Q24HR [facility]; Protocol Last Admin: 12/15/22 09:07 Dose: 100 mls/hr Levothyroxine Sodium (Levothyroxine 100 Mcg Tab) 100 mcg PO 0630 [facility] Last Admin: 12/15/22 06:55 Dose: 100 mcg Miscellaneous Information (Potassium Replacement Protocol 1 Each Misc) 1 each MISCELLANE DAILY PRN; Protocol PRN Reason: Per Protocol Miscellaneous Information (Potassium Replacement Protocol 1 Each Misc) 1 each MISCELLANE DAILY PRN; Protocol PRN Reason: Per Protocol Morphine Sulfate (Morphine Sulfate 4 Mg/Ml Syringe) 4 mg IV Q4HR PRN PRN Reason: Severe Pain (Scale 7 to 10) Last Admin: 12/14/22 21:47 Dose: 4 mg Naloxone HCl (Naloxone 0.4 Mg/Ml 1 Ml Vial) 0.2 mg IV Q2M PRN PRN Reason: Opioid Reversal Ondansetron HCl (Ondansetron 4 Mg/2 Ml Vial) 4 mg IVP Q8HR PRN PRN Reason: Nausea And Vomiting Last Admin: 12/12/22 17:43 Dose: 4 mg Polyethylene Glycol (Polyethylene Glycol 3350 17 Gm Powd.Pack) 17 gm PO DAILY [facility] Last Admin: 12/15/22 10:01 Dose: 17 gm Pregabalin (Pregabalin 100 Mg Cap) 100 mg PO TID [facility] Last Admin: 12/15/22 16:35 Dose: 100 mg Physical examination: VITAL SIGNS: 98.7, 71, 24, 1 10 x 61, 93% on room air GENERAL: BMI 47.8, declining but awake not in distress EYES: Pupils equal. Conjunctiva normall. HEENT: External appearance of nose and ears normal, oral cavity grossly normal. NECK: JVD not raised; masses not palpable. HEART: First and second heart sounds are normal; some edema. LUNGS: Respiratory rate normal; distant breath sounds. ABDOMEN: Soft, nontender, liver spleen not palpable, no masses palpable. PSYCH: Alert and oriented x3; mood and affect normal. MUSCULOSKELETAL:No Clubbing/cyanosis;muscles-grossly intact. venous insufficiency and lymphedema in the lower extremity. Some increased local temperature and redness in the upper thigh left leg medially EXTREMITY: Left foot, amputated big toe and third toe INVESTIGATIONS, reviewed in the clinical context: December 15: White count 5.8 hemoglobin 9.6 platelets 110 3137 potassium 3.9 creatinine 0.74 Procalcitonin 1.41 Cortizone-10 Ultrasound extremity nonvascular left colon subcutaneous edema without organizing fluid collection. Assessment and plan: -Acute severe left thigh cellulitis, causing sepsis: Improving IV cefepime, IV daptomycin -Wound left posterior leg Patient follows with Dr. Morris. -Septic shock secondary to above patient was on pressors: Now corrected -chronic low back pain, likely from spinal stenosis/herniated disc with radiculopathy and down and affect.-likely from L1-L2 and L3-L4 nerve distribution. Pain medications as needed -History of Pyoderma gangrenosum -Hyperlipidemia Lipitor 10 mg daily at bedtime, -Essential hypertension, Currently off blood pressure medications -Primary osteoarthritis, pain medications when necessary -Hypothyroid, Synthroid 100 g daily -Normocytic anemia likely of chronic disease -Thrombocytopenia likely from infection -Chronic medical debility uses wheelchair -Idiopathic peripheral neuropathy Lyrica 100 mg 3 times a day -Chronic venous stasis -Bilateral lower extremity lymphedema -Chronic urinary stress incontinence -Chronic umbilical hernia -Morbid obesity BMI 47.8 Weight loss measures Discussed with patient. Antibiotics per ID. Known to Dr. Morris from wound care. Consulted.
[2022-12-15] MEDS: AMITRIPTYLINE HCL 10 MG TAB PO SCH (21:08)
[2022-12-16] MEDS: SODIUM CHLORIDE 0.9% 1,000 ML IV SCH (02:07)
[2022-12-16 06:54] LABS: HCT 29.5 % (34.0-46.0); HGB 9.5 gm/dL (11.4-16.0); Hypochromasia Slight; MCH 30.8 pg (25.0-35.0); MCHC 32.4 g/dL (31.0-37.0); MCV 95.2 fL (80.0-100.0); Mean Platelet Volume 9.9; Platelet Count 134 k/uL (150-450); RDW 14.1 % (11.5-15.5); WBC 5.6 k/uL (3.8-10.6)
[2022-12-16 07:02] LABS: ALT 20 U/L (4-34); AST 22 U/L (14-36); African American GFR (CKD) >90 (>60 ml/min/1.73 sqM); Albumin 2.5 g/dL (3.5-5.0); Alkaline Phosphatase 131 U/L (38-126); Anion Gap 3 mmol/L; Blood Urea Nitrogen 12 mg/dL (7-17); Calcium 8.2 mg/dL (8.4-10.2); Carbon Dioxide 29 mmol/L (22-30); Chloride 107 mmol/L (98-107); Glucose 79 mg/dL (74-99); Non-African American GFR(CKD) 90 (>60 ml/min/1.73 sqM); Potassium 3.8 mmol/L (3.5-5.1); Sodium 139 mmol/L (137-145); Total Bilirubin 0.5 mg/dL (0.2-1.3); Total Protein 4.9 g/dL (6.3-8.2)
[2022-12-16] MEDS: LEVOTHYROXINE 100 MCG TAB PO SCH (07:02)
[2022-12-16] MEDS: MORPHINE SULFATE 4 MG/ML SYRINGE IV PRN ×2 (07:40→14:33)
[2022-12-16] MEDS: HEPARIN SODIUM,PORCINE 5,000 UNIT/ML 1 ML VIAL SQ SCH ×2 (08:03→21:04)
[2022-12-16] MEDS: CHOLECALCIFEROL 25 MCG (1000 IU) TABLET PO SCH (08:04)
[2022-12-16] MEDS: HYDROcodone/APAP 10-325MG 1 EACH TAB PO PRN ×3 (08:04→21:04)
[2022-12-16] MEDS: PREGABALIN 100 MG CAP PO SCH ×3 (08:05→21:04)
[2022-12-16] MEDS: ASCORBIC ACID 500 MG TAB PO SCH (08:05)
[2022-12-16] MEDS: CEFEPIME 2 GM in SODIUM CHLORIDE 0.9% 100 ML IVPB SCH ×2 (08:05→17:24)
[2022-12-16] MEDS: FAMOTIDINE 20 MG/2 ML VIAL IV SCH ×2 (08:06→21:04)
[2022-12-16] MEDS: polyethylene glycoL 3350 17 GM POWD.PACK PO SCH (08:16)
[2022-12-16] MEDS ORDERED: Potassium Replacement Protocol 1 EACH MISC MISCELLANE PRN (09:00)
--- NOTE | 2022-12-16 09:33 | P.PN ---
Subjective Progress Note Date: 12/16/22 This is a 67-year-old female patient with a known history of hyperlipidemia, hypertension, osteoarthritis, hypothyroidism, neuropathy of the bilateral feet with chronic venous stasis and previous cellulitis and osteomyelitis with multiple toes amputated on the left foot. Previous MRSA infection of the left foot as well. She follows at the wound Center. She was having increasing pain and redness, warmth of the left thigh posteriorly and came here to the emergency room for the same. He was initially admitted to the regular medical floor at approximately 8:00 last night she developed hypotension and rapid response team was called. She was subsequently transferred to the intensive care unit. She is seen today in consultation. She is awake and alert in no acute distress. She is on norepinephrine at 0.02 mcg/kg/m. She received 2 L of fluid resuscitation. She is initiated on cefepime. She received Flagyl 1. Previous wound cultures from June 2021 of the left foot were positive for MSSA and Enterobacter cloacae, enterococcus faecalis VRE. White count 12.2. Hemoglobin 10.3. Platelets 98,000. Sodium 139. Potassium 3.2. Bicarb 20. BUN 18. Creatinine 0.87. AST 90. ALT 37. Influenza screen negative. RSV screen negative. COVID-19 screen negative. Doppler of the left lower extremity was negative for DVT. X-ray reveals low lung volumes with generalized hazy appearance possible atelectasis versus pulmonary edema. The patient is seen today 12/14/2022 and follow-up in the intensive care unit. She is currently sitting up in bed. Awake and alert in no acute distress. Breathing easier today compared to yesterday. She is maintaining good O2 saturations in the mid 90s on 2 L nasal cannula. She has been off norepinephrine. Normal saline at 130 ML's per hour. She is in a +5 L balance since admission. Blood pressure stable. Doppler of the left lower extremity ru led out DVT. There is subcutaneous edema without organizing fluid collection. No evidence of abscess. Blood cultures reveal no growth to date. White count 8.0. Hemoglobin 10.1. Platelets 75,000. Sodium 140. Potassium 4.2. Bicarb 21. BUN 17. Creatinine 0.74. ProBNP 85. Pro-calcitonin 1.41. Cortisol level was 10. She remains on daptomycin and cefepime. On today's evaluation of a 2022, I'm seeing the patient for a follow-up. The patient was in the intensive care unit for sepsis related to cellulitis of the patient has bilateral lower extremity cellulitis and chronic venous stasis in the legs. She has also previous history of osteomyelitis on multiple to amputation of the left foot and she has had previous MRSA infection of the left foot as well. She has hypertension, hyperlipidemia, osteoarthritis, hypothyroidism and history of neuropathy. The patient is currently on a combination of daptomycin and IV cefepime. She is currently off pressors. She is on IV fluids which is running at a rate of 75 mL an hour of normal saline. His resting comfortably in bed and she is currently on room air oxygen. In terms of her blood work, the patient's white cell sounds at 5.8 with a hemoglobin of 9.6 and a platelet count of 110. Electrodes are within normal limits. Her serum cortisol was 10. Pro-calcitonin was 1.4 from 12/13/2022. The blood culture still negative. Ultrasound Doppler of the lower extremities as well as done on 12/13/2022 showed septic in his emphysema without any organizing fluid or collection. This cellulitis is in her left thigh is improved considerably. There is no significant erythema on today's evaluation. She also has wounds feet/ankles bilaterally on the lateral aspect. No active purulent drainage at this point in time and the patient is receiving wound care with [facility]. On 12/16/2022, I'm seeing the patient for a follow-up. She is still having significant amount of pain in her left thigh. There is obvious swelling in her medial thigh area and upon palpation, there could be an underlying collection. Ultrasound of the thigh was done and showed subcu in his emphysema and there was no abscess. Nevertheless, the area is quite tender and painful. Doppler of the left otic some additional is no evidence of any DVT. The patient remains on a combination of daptomycin and cefepime. She is on no pressors for now. The wound culture from the left lower extremity wound was gram-negative bacillus. The patient has had rest of the labs that show a white cell count of 5.6 with a hemoglobin of 9.5 and a platelet count of 134. BUN is 12 with a creatinine of 0.69 and a sodium levels of 139. She is on room air oxygen pH is quite uncomfortable because of her pain in the left thigh area. Objective - Vital Signs Vital signs: Vital Signs Temp 97.7 F 12/16/22 08:00 Pulse 73 12/16/22 08:00 Resp 17 12/16/22 08:00 BP 137/85 12/16/22 08:00 Pulse Ox 95 12/16/22 08:00 FiO2 Intake & Output 12/15/22 12/16/22 12/16/22 18:59 06:59 18:59 Intake Total 895 320 660 Output Total 565 1100 570 Balance 330 -780 90 Weight 143 kg Intake: IV 620 320 260 Cefepime 2 gm In Sodium 100 Chloride 0.9% 100 ml @ 25 mls/hr IVPB Q12HR [facility] Rx #:[id number] DAPTOmycin 400 mg In 100 Sodium Chloride 0.9% 50 ml @ 100 mls/hr IVPB Q24HR [facility] Rx#:[id number] Sodium Chloride 0.9% 1, 620 320 60 000 ml @ 10 mls/hr IV . Q24H [facility]KAT Rx#:[id number] Oral 275 400 Output: Urine 565 1100 570 Other: Voiding Method Indwelling Catheter Indwelling Catheter - Exam GENERAL EXAM: Alert, morbidly obese 67-year-old female, on RA nasal cannula, in no apparent distress. HEAD: Normocephalic. EYES: Normal reaction of pupils, equal size. NOSE: Clear with pink turbinates. THROAT: No erythema or exudates. NECK: No masses, no JVD. CHEST: No chest wall deformity. LUNGS: Equal air entry with no crackles, wheeze, rhonchi or dullness. CVS: S1 and S2 normal with no audible murmur, regular rhythm. ABDOMEN: No hepatosplenomegaly, normal bowel sounds, no guarding or rigidity. SPINE: No scoliosis or deformity SKIN: No rashes, wounds of various sizes on the lateral aspect of the ankle on the left than on the right bilaterally. No active drainage. Cellulitis left lower extremity thigh area is improving and the area is obviously chore tender. Not erythematous. She has chronic venous stasis and lower extremity is bilaterally. She has had previous amputations in her left foot. There is some swelling in the medial aspect of the left thigh and possibly some fluid collect ion. The area is quite tender. Overlying skin is nonerythematous. CENTRAL NERVOUS SYSTEM: No focal deficits, tone is normal in all 4 extremities. EXTREMITIES: Changes of chronic venous stasis. Previous amputations of the left upper second and third toe. Redness and warmth of the left thigh, improved. No clubbing, no cyanosis. Peripheral pulses are intact. - Labs CBC & Chem 7: 12/16/22 06:24 12/16/22 06:24 Labs: Abnormal Lab Results - Last 24 Hours (Table) 12/16/22 12/16/22 Range/Units 06:24 06:24 RBC 3.10 L (3.80-5.40) m/uL Hgb 9.5 L (11.4-16.0) gm/dL Hct 29.5 L (34.0-46.0) % Plt Count 134 L (150-450) k/uL Calcium 8.2 L (8.4-10.2) mg/dL Alkaline Phosphatase 131 H (38-126) U/L Total Protein 4.9 L (6.3-8.2) g/dL Albumin 2.5 L (3.5-5.0) g/dL Microbiology - Last 24 Hours (Table) 12/12/22 14:00 Blood Culture - Preliminary Blood 12/12/22 13:45 Blood Culture - Preliminary Blood 12/13/22 11:40 Gram Stain - Preliminary Leg - Left Wound Culture - Preliminary Gram Neg Bacilli Assessment and Plan Plan: Sepsis with secondary hypotension, recovered and the patient is currently hemodynamically stable on no pressors Sepsis secondary to cellulitis of the left thigh, improved, nevertheless, the area still swollen and painful. Ultrasound the left thigh shows subcu in his emphysema and there is no abscess. Cellulitis of the left thigh, improving, possible collection/fluid/abscess although ultrasound the left eye was negative. Chronic ones in her feet bilaterally, lateral last of the ankle, several wounds on the left and one on the right of various sizes. 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 No GI symptoms at this point in time. Former smoker Plan: Obtain a CAT scan of the left lower extremity with contrast Continue cefepime, daptomycin Continue wound care with medi honey and dressing/nonadherent adherent dressing No pressors for now IV fluids to KVO Continue wound care Continue Synthroid Continue Lyrica Continue amitriptyline Currently on room air oxygen Transfer to the regular medical floor We will continue to follow
[2022-12-16] MEDS ORDERED: POTASSIUM CHLORIDE ER 20 MEQ TAB.ER PO SCH (10:00)
--- NOTE | 2022-12-16 10:58 | CT ---
EXAMINATION TYPE: CT lower extremity LT w con CT DLP: 3943.5 mGycm, Automated exposure control for dose reduction was used. DATE OF EXAM: 12/16/2022 10:45 AM COMPARISON: Ultrasound 12/13/2022 CLINICAL INDICATION:Female, 67 years old with history of rule out abscess; PHH, r/o medial left upper leg abscess TECHNIQUE: Axial images were obtained of the left lower extremity after the uneventful administration of 100 cc of Isovue-300 intravenously. Additional coronal and sagittal reformatted images and soft t issue and bone window were obtained for review. FINDINGS: Examination is limited due to patient's body habitus. No acute fracture or dislocation. No osseous erosions. Osteoarthritic changes of the left knee with j oint space narrowing and marginal spurring. No significant abnormality within the visualized portions of the pelvis. Cobos catheter is in place. Mildly enlarged left inguinal lymph nodes measuring up to 1.5 cm short axis. Punctate soft tissue laura cifications noted. There is skin thickening with fat stranding/edema identified within the medial thi ghs with left greater than right. There is fluid along the medial aspect of the left upper leg withou t peripheral rim enhancement suggests organized collection. Additional subcutis edema identified thro ughout the left lower extremity and visualized right lower extremity. No visualized subcutaneous emph ysema. The visualized vasculature is patent. Vascular sclerosis identified. IMPRESSION: 1. No acute fracture or dislocation. No osseous erosions. 2. Skin thickening with fat stranding/edema most prominent within the left thigh and upper extremity. There is fluid along the medial aspect of the distal left lower extremity soft tissues without organ ized rim enhancement to suggest abscess. Correlate for cellulitis. No visualized subcutaneous emphyse ma. 3. Mildly enlarged left inguinal lymph node nodes likely reactive to #2.
[2022-12-16] MEDS ORDERED: lisinopriL 20 MG TAB PO SCH (12:30)
[2022-12-16] MEDS: NOREPINEPHRINE 4 MG in SODIUM CHLORIDE 0.9% 250 ML IV SCH (13:54)
--- NOTE | 2022-12-16 13:56 | P.PN ---
Progress Note - Text Progress Note Date: 12/16/22 Chief Complaint: Pain upper posterior thigh 67-year-old female presents emergency Department complaining that she has pain in the upper posterior thigh since last night she states is getting more swollen and more tender. Patient states she thinks there is also warm. Patient denies any difficulty breathing shortness of breath or chest pain. Patient denies any palpitations. Patient denies any lightheadedness or dizziness. Patient denies any back pain. 59 female DF for evaluation of severe left upper thigh pain significant swelling and tenderness. Patient states his appointment with the pain is causing to be disabled debilitated if she cannot currently ambulate secondary to pain. Patient does live by herself White count 12.2. Hemoglobin 10.3. Platelets 98,000. Sodium 139. Potassium 3.2. Bicarb 20. BUN 18. Creatinine 0.87. AST 90. ALT 37. Influenza screen negative. RSV screen negative. COVID-19 screen negative. Doppler of the left lower extremity was negative for DVT. X-ray reveals low lung volumes with generalized hazy appearance possible atelectasis versus pulmonary edema. Patient is being admitted to hospital for IV antibiotic treatment and evaluation by ID -- Patient developed profound hypotension and was transferred to ICU through the night; has required pressor agents; patient has been continued on IV cefepime and daptomycin is admitted 12/14/2022 Patient is seen and evaluated in room at bedside; admitted with sepsis irelated to left lower extremity cellulitis especially significant swelling redness of the left medial thigh area need to rule out underlying abscess. wID recommending ultrasound of the left thigh to make sure no evidence of any fluid suspicious for abscess that may need to be drained. local wound culture from the wound to the left posterior leg as possible source of this infection. continue with the cefepime however I will add daptomycin to cover for the gram- positive while waiting for the culture to finalize. local wound care with a dry Aquacel silver dressing followed by Yaya wrap for compression change every 48 hour. 12/15/2022: I assumed care of the patient today. ICU. Reclining in bed. Eating well. On sinus rhythm. Slightly some pain and redness in the inside of the left upper thigh. No fever. On IV cefepime and daptomycin per ID. 12/16/2022: ICU. Computed tomography scan done today of the left lower extremity shows suspected abscess. Pending evaluation by Dr. Danielson from vascular for possible I&D. On IV daptomycin and cefepime. Pain at the affected site. Eating fair. Past medical history: Hyperlipidemia, hypertension, osteoarthritis, hypothyroid, uses wheelchair, peripheral neuropathy, chronic venous stasis, bilateral lower extremity lymphedema, urinary stress incontinence, lymph edema, umbilical hernia, hypothyroid. 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 Smoked for 20 years stopped in 1990. Alcohol rarely. Lives alone. Uses a wheelchair. Active Medications Acetaminophen/Butalbital/Caffeine (Butalb/Apap/Caff 50-325-40mg Tab) 2 each PO Q4HR PRN PRN Reason: Headache Last Admin: 12/14/22 15:07 Dose: 2 each Hydrocodone Bitart/Acetaminophen (Hydrocodone/Apap 10-325mg 1 Each Tab) 1 each PO Q6H PRN PRN Reason: Pain Last Admin: 12/16/22 08:04 Dose: 1 each Amitriptyline HCl (Amitriptyline Hcl 10 Mg Tab) 10 mg PO HS [facility] Last Admin: 12/15/22 21:08 Dose: 10 mg Ascorbic Acid (Ascorbic Acid 500 Mg Tab) 1,000 mg PO DAILY [facility] Last Admin: 12/16/22 08:05 Dose: 1,000 mg Cholecalciferol (Cholecalciferol 25 Mcg (1000 Iu) Tablet) 50 mcg PO DAILY [facility] Last Admin: 12/16/22 08:04 Dose: 50 mcg Famotidine (Famotidine 20 Mg/2 Ml Vial) 20 mg IV Q12HR [facility] Last Admin: 12/16/22 08:06 Dose: 20 mg Heparin Sodium (Porcine) (Heparin Sodium,Porcine 5,000 Unit/Ml 1 Ml Vial) 5,000 unit SQ Q12HR [facility] Last Admin: 12/16/22 08:03 Dose: 5,000 unit Sodium Chloride (Saline 0.9%) 1,000 mls @ 10 mls/hr IV .Q24H [facility] Last Admin: 12/16/22 02:07 Dose: Not Given Norepinephrine Bitartrate 4 mg (/ Sodium Chloride) 254 mls @ 14.517 mls/hr IV .[id number] [facility]; Protocol Last Admin: 12/16/22 13:54 Dose: Not Given Daptomycin 400 mg/ Sodium (Chloride) 50 mls @ 100 mls/hr IVPB Q24HR [facility]; Protocol Last Admin: 12/16/22 08:18 Dose: 100 mls/hr Cefepime HCl 2 gm/ Sodium (Chloride) 100 mls @ 25 mls/hr IVPB Q8HR [facility]; Protocol Levothyroxine Sodium (Levothyroxine 100 Mcg Tab) 100 mcg PO 0630 [facility] Last Admin: 12/16/22 07:02 Dose: 100 mcg Lisinopril (Lisinopril 20 Mg Tab) 20 mg PO DAILY [facility] Last Admin: 12/16/22 12:33 Dose: 20 mg Miscellaneous Information (Potassium Replacement Protocol 1 Each Misc) 1 each MISCELLANE DAILY PRN; Protocol PRN Reason: Per Protocol Miscellaneous Information (Potassium Replacement Protocol 1 Each Misc) 1 each MISCELLANE DAILY PRN; Protocol PRN Reason: Per Protocol Miscellaneous Information (Potassium Replacement Protocol 1 Each Misc) 1 each MISCELLANE DAILY PRN; Protocol PRN Reason: Per Protocol Morphine Sulfate (Morphine Sulfate 4 Mg/Ml Syringe) 4 mg IV Q4HR PRN PRN Reason: Severe Pain (Scale 7 to 10) Last Admin: 12/16/22 07:40 Dose: 4 mg Naloxone HCl (Naloxone 0.4 Mg/Ml 1 Ml Vial) 0.2 mg IV Q2M PRN PRN Reason: Opioid Reversal Ondansetron HCl (Ondansetron 4 Mg/2 Ml Vial) 4 mg IVP Q8HR PRN PRN Reason: Nausea And Vomiting Last Admin: 12/12/22 17:43 Dose: 4 mg Polyethylene Glycol (Polyethylene Glycol 3350 17 Gm Powd.Pack) 17 gm PO DAILY [facility] Last Admin: 12/16/22 08:16 Dose: Not Given Pregabalin (Pregabalin 100 Mg Cap) 100 mg PO TID [facility] Last Admin: 12/16/22 08:05 Dose: 100 mg Physical examination: VITAL SIGNS: 97.7, 73, 17, 1 3795, 95% room air GENERAL: BMI 47.8, reclining, tired EYES: Pupils equal. Conjunctiva normall. HEENT: External appearance of nose and ears normal, oral cavity grossly normal. NECK: JVD not raised; masses not palpable. HEART: First and second heart sounds are normal; some edema. LUNGS: Respiratory rate normal; distant breath sounds. ABDOMEN: Soft, nontender, liver spleen not palpable, no masses palpable. PSYCH: Alert and oriented x3; mood and affect normal. MUSCULOSKELETAL:No Clubbing/cyanosis;muscles-grossly intact. venous insufficiency and lymphedema in the lower extremity. Some increased local temperature and redness in the upper thigh left leg medially. Very localized increased tenderness. EXTREMITY: Left foot, amputated big toe and third toe INVESTIGATIONS, reviewed in the clinical context: Computed tomography scan left lower extremity [December 20]: Suspected abscess/fluid collection December 16: WBC [age]-year-old woman 9.5 platelets 134 potassium 3.8 creatinine 0.69 December 15: White count 5.8 hemoglobin 9.6 platelets 110 3137 potassium 3.9 creatinine 0.74 Procalcitonin 1.41 Cortizone-10 Ultrasound extremity nonvascular left colon subcutaneous edema without organizing fluid collection. Assessment and plan: -Acute severe left thigh cellulitis, causing sepsis: With abscess: Slow to respond IV cefepime, IV daptomycin. Pending I&D by vascular. -Wound left posterior leg Patient follows with Dr. Morris. -Septic shock secondary to above patient was on pressors: corrected -chronic low back pain, likely from spinal stenosis/herniated disc with radiculopathy and down and affect.-likely from L1-L2 and L3-L4 nerve distribution. Pain medications as needed -History of Pyoderma gangrenosum -Hyperlipidemia Lipitor 10 mg daily at bedtime, -Essential hypertension, Currently off blood pressure medications -Primary osteoarthritis, pain medications when necessary -Hypothyroid, Synthroid 100 g daily -Normocytic anemia likely of chronic disease -Thrombocytopenia likely from infection -Chronic medical debility uses wheelchair -Idiopathic peripheral neuropathy Lyrica 100 mg 3 times a day -Chronic venous stasis -Bilateral lower extremity lymphedema -Chronic urinary stress incontinence -Chronic umbilical hernia -Morbid obesity BMI 47.8 Weight loss measures -Full code Continue antibiotics. Pending vascular input for possible I&D of the abscess. Discussed with patient.
--- NOTE | 2022-12-16 14:34 | P.PN ---
Subjective Progress Note Date: 12/16/22 Principal diagnosis: Left leg wound and Cellulitis Patient is 67-year-old female with past medical his significant for hypertension hyperlipidemia diabetes mellitus history of diabetic foot infection requiring amputation of the toes currently did have a nonhealing wound to the left posterior leg area for the patient to follow with Dr. Danielson in the wound care center patient is presenting to [facility] ER for evaluation of left medial thigh pain swelling and tenderness, patient was noticed to be septic hypertension requiring admission to the ICU. On today's evaluation that is 12/17/2019, the patient remains to be stable patient is breathing comfortably on room air the patient is off the pressor support, still vomiting or pain to the left thigh area no nausea no vomiting no abdominal pain and no diarrhea. Patient white count is 5.6 creatinine 0.6 on patient did have a CT of the left thigh concerning for an abscess, local culture from the left leg wound is growing Staphylococcus aureus and gram-negative bacilli Objective - Vital Signs Vital signs: Vital Signs Temp 97.7 F 12/16/22 08:00 Pulse 73 12/16/22 08:00 Resp 17 12/16/22 08:00 BP 137/85 12/16/22 08:00 Pulse Ox 95 12/16/22 08:00 FiO2 Intake & Output 12/15/22 12/16/22 12/16/22 18:59 06:59 18:59 Intake Total 895 320 810 Output Total 565 1100 710 Balance 330 -780 100 Weight 143 kg Intake: IV 620 320 260 Cefepime 2 gm In Sodium 100 Chloride 0.9% 100 ml @ 25 mls/hr IVPB Q12HR [facility] Rx #:[id number] DAPTOmycin 400 mg In 100 Sodium Chloride 0.9% 50 ml @ 100 mls/hr IVPB Q24HR [facility] Rx#:[id number] Sodium Chloride 0.9% 1, 620 320 60 000 ml @ 10 mls/hr IV . Q24H [facility] Rx#:[id number] Oral 275 550 Output: Urine 565 1100 710 Other: Voiding Method Indwelling Catheter Indwelling Catheter # Bowel Movements 1 - Exam GENERAL DESCRIPTION: Elderly female lying in bed in no distress RESPIRATORY SYSTEM: Unlabored breathing , decreased breath sounds at bases HEART: S1 S2 regular rate and rhythm ,no loud murmurs ABDOMEN: Soft , no tenderness EXTREMITIES left leg wound is currently dressed no drainage on the dressing - Labs CBC & Chem 7: 12/16/22 06:24 12/16/22 06:24 Labs: Abnormal Lab Results - Last 24 Hours (Table) 12/16/22 12/16/22 Range/Units 06:24 06:24 RBC 3.10 L (3.80-5.40) m/uL Hgb 9.5 L (11.4-16.0) gm/dL Hct 29.5 L (34.0-46.0) % Plt Count 134 L (150-450) k/uL Calcium 8.2 L (8.4-10.2) mg/dL Alkaline Phosphatase 131 H (38-126) U/L Total Protein 4.9 L (6.3-8.2) g/dL Albumin 2.5 L (3.5-5.0) g/dL Microbiology - Last 24 Hours (Table) 12/13/22 11:40 Gram Stain - Preliminary Leg - Left Wound Culture - Preliminary Gram Neg Bacilli Presumptive Staph aureus 12/12/22 14:00 Blood Culture - Preliminary Blood 12/12/22 13:45 Blood Culture - Preliminary Blood Assessment and Plan (1) Cellulitis of left leg Current Visit: Yes Status: Acute Code(s): L03.116 - CELLULITIS OF LEFT LOWER LIMB SNOMED Code(s): 335679756 (2) Sepsis Current Visit: Yes Status: Acute Code(s): A41.9 - SEPSIS, UNSPECIFIED ORGANISM SNOMED Code(s): 91148996 Plan: Patient presented to hospital with sepsis in this patient with a fever tachycardia elevated white count source is left lower extremity cellulitis especially significant swelling redness of the left medial thigh area need to rule out underlying abscess. 2patient with multiple antibiotic allergies that would limit the number of antibiotics safe to use. 3ultrasound of the left medial thigh was negative for any abscess however the CT is now showing evidence of left thigh abscess for which vascular surgery has been consulted for possible I&D and drainage. 4local wound care to the left leg wound with Aquacel silver dressing change every 48 hour, nursing start changing the dressing this morning mention overall wound is looking better. 5patient to continue with cefepime and daptomycin while waiting for the culture to finalize and monitor clinical course closely Dictation was produced using [employer] software. please excuse any grammatical, word or spelling errors.
--- NOTE | 2022-12-16 16:41 | P.GSCN ---
History of Present Illness History of present illness: 67-year-old white female, patient has a long-standing history of recurrent wound ulcer left lower extremity coming to the wound clinic clinic for local wound care. Patient has been admitted with sepsis under care of infectious disease on IV antibiotic. Patient had ultrasound of the left thigh area suggestive no evidence of abscess and computed tomography scan showed there is some skin t hickening with the stranding and edema of the left thigh and a there is a fluid along the medial aspect of the left lower extremity without organized cream in [place] to suggest abscess Medical history history of 4 obesity diabetes recurrent ulcer of the left lower extremity. On examination patient was seen and discussed care unit laying comfortably in bed patient is afebrile vital signs stable complains of left upper thigh some tenderness there is tenderness noted along the left upper thigh thigh area Plan is continue with IV antibiotic we will review the CAT scan with the radiologist and follow with you lower extremity dressing should be changed with medihoney gel Past Medical History Past Medical History: Hyperlipidemia, Hypertension, Osteoarthritis (OA), Skin Disorder, Thyroid Disorder, Vascular Disorder Additional Past Medical History / Comment(s): Nonambulatory/pivots to wheelchair normally, low back pain, neuropathy bilateral feet, chronic venous stasis, past L heel/L posterior yost/left second toe wounds, past L 2nd toe osteomyelitis-now amptuated, L great toe amptutated; 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 History of Any Multi-Drug Resistant Organisms: MRSA, VRE, VRE Year Discovered:: 05/20/21-VRE; 04/07/20 MRSA MDRO Source:: Left Foot-VRE, Left Foot and Leg MRSA Past Surgical History: Section, Cholecystectomy, Orthopedic Surgery, Tubal Ligation Additional Past Surgical History / Comment(s): L leg I&D, bilateral knee arthroscopies, L great toe and 2nd/3rd toe amp d/t nonhealing wounds, PICCS, midlines, D&Cs Past Anesthesia/Blood Transfusion Reactions: Previous Problems w/ Anesthesia Additional Past Anesthesia/Blood Transfusion Reaction / Comm: Slow to come out of it Past Psychological History: Depression, Depression Additional Psychological History / Comment(s): Patient states she normally can pivot to wheelchair. She is receiving home care thru [facility]. She sees Dr. Danielson for wound care. She receives [employer] grocery delivery. She gets rides through [employer] or a friend. 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 Smoking Status: Former smoker Past Alcohol Use History: None Reported Additional Past Alcohol Use History / Comment(s): Pt started smoking in 1970 and quit in 1990. Past Drug Use History: None Reported - Past Family History Father Family Medical History: Cancer, Coronary Artery Disease (CAD), Myocardial Infarction (SC), Prostate Disorder Additional Family Medical History / Comment(s): Prostate CA. Father in a MVA at the age of 80yrs. Mother Family Medical History: Cancer, CVA/TIA, Hyperlipidemia Additional Family Medical History / Comment(s): Lung CA-left lobe removed. Medications and Allergies Home Medications Medication Instructions Recorded Confirmed Type Levothyroxine Sodium [Synthroid] 100 mcg PO DAILY 08/29/13 12/12/22 History Atorvastatin Calcium [Lipitor] 10 mg PO HS 10/06/18 12/12/22 History lisinopriL [Zestril] 20 mg PO BID PRN 08/06/20 12/12/22 History Amitriptyline HCl [Elavil] 10 mg PO HS 07/23/21 12/12/22 History Cholecalciferol [Vitamin D3 (25 50 mcg PO DAILY 07/23/21 12/12/22 History Mcg = 1000 Iu)] HYDROcodone/APAP 10-325MG [[place] 1 tab PO Q6H PRN #12 tab 07/29/21 12/12/22 Rx 10-325] Pregabalin [Lyrica] 100 mg PO TID #9 cap 07/29/21 12/12/22 Rx Ascorbic Acid [Vitamin C] 1,000 mg PO DAILY 12/12/22 12/12/22 History Vitamin B Complex 1 cap PO DAILY 12/12/22 12/12/22 History Allergies Allergy/AdvReac Type Severity Reaction Status Date / Time Sulfa (Sulfonamide Allergy Rash/Hives Verified 12/12/22 18:08 Antibiotics) vancomycin Allergy Rash/Hives Verified 12/12/22 18:08 levofloxacin [From Levaquin] AdvReac Itching Verified 12/12/22 18:08 Surgical - Exam Vital Signs Temp Pulse Resp BP Pulse Ox 97.4 F L 115 H 18 116/87 95 12/12/22 13:27 12/12/22 13:27 12/12/22 13:27 12/12/22 13:27 12/12/22 13:27 Results - Labs 12/16/22 06:24 12/16/22 06:24 Abnormal Lab Results - Last 24 Hours (Table) 12/16/22 12/16/22 Range/Units 06:24 06:24 RBC 3.10 L (3.80-5.40) m/uL Hgb 9.5 L (11.4-16.0) gm/dL Hct 29.5 L (34.0-46.0) % Plt Count 134 L (150-450) k/uL Calcium 8.2 L (8.4-10.2) mg/dL Alkaline Phosphatase 131 H (38-126) U/L Total Protein 4.9 L (6.3-8.2) g/dL Albumin 2.5 L (3.5-5.0) g/dL Microbiology - Last 24 Hours (Table) 12/13/22 11:40 Gram Stain - Preliminary Leg - Left Wound Culture - Preliminary Gram Neg Bacilli Presumptive Staph aureus 12/12/22 14:00 Blood Culture - Preliminary Blood 12/12/22 13:45 Blood Culture - Preliminary Blood Diabetes panel 12/16/22 Range/Units 06:24 Sodium 139 (137-145) mmol/L Potassium 3.8 (3.5-5.1) mmol/L Chloride 107 (98-107) mmol/L Carbon Dioxide 29 (22-30) mmol/L BUN 12 (7-17) mg/dL Creatinine 0.69 (0.52-1.04) mg/dL Glucose 79 (74-99) mg/dL Calcium 8.2 L (8.4-10.2) mg/dL AST 22 (14-36) U/L ALT 20 (4-34) U/L Alkaline Phosphatase 131 H (38-126) U/L Total Protein 4.9 L (6.3-8.2) g/dL Albumin 2.5 L (3.5-5.0) g/dL Calcium panel 12/16/22 Range/Units 06:24 Calcium 8.2 L (8.4-10.2) mg/dL Albumin 2.5 L (3.5-5.0) g/dL Pituitary panel 12/16/22 Range/Units 06:24 Sodium 139 (137-145) mmol/L Potassium 3.8 (3.5-5.1) mmol/L Chloride 107 (98-107) mmol/L Carbon Dioxide 29 (22-30) mmol/L BUN 12 (7-17) mg/dL Creatinine 0.69 (0.52-1.04) mg/dL Glucose 79 (74-99) mg/dL Calcium 8.2 L (8.4-10.2) mg/dL Adrenal panel 12/16/22 Range/Units 06:24 Sodium 139 (137-145) mmol/L Potassium 3.8 (3.5-5.1) mmol/L Chloride 107 (98-107) mmol/L Carbon Dioxide 29 (22-30) mmol/L BUN 12 (7-17) mg/dL Creatinine 0.69 (0.52-1.04) mg/dL Glucose 79 (74-99) mg/dL Calcium 8.2 L (8.4-10.2) mg/dL Total Bilirubin 0.5 (0.2-1.3) mg/dL AST 22 (14-36) U/L ALT 20 (4-34) U/L Alkaline Phosphatase 131 H (38-126) U/L Total Protein 4.9 L (6.3-8.2) g/dL Albumin 2.5 L (3.5-5.0) g/dL
[2022-12-16] MEDS: AMITRIPTYLINE HCL 10 MG TAB PO SCH (21:04)
[2022-12-17] MEDS: CEFEPIME 2 GM in SODIUM CHLORIDE 0.9% 100 ML IVPB SCH ×3 (00:55→16:35)
[2022-12-17] MEDS: lisinopriL 20 MG TAB PO SCH ×3 (00:56→20:55)
[2022-12-17] MEDS: SODIUM CHLORIDE 0.9% 1,000 ML IV SCH (00:56)
[2022-12-17 05:37] LABS: HCT 29.1 % (34.0-46.0); HGB 9.4 gm/dL (11.4-16.0); Hypochromasia Slight; MCH 30.5 pg (25.0-35.0); MCHC 32.4 g/dL (31.0-37.0); MCV 94.1 fL (80.0-100.0); Mean Platelet Volume 8.9; Platelet Count 146 k/uL (150-450); RBC 3.09 m/uL (3.80-5.40); WBC 4.3 k/uL (3.8-10.6)
[2022-12-17 05:50] LABS: ALT 23 U/L (4-34); AST 31 U/L (14-36); African American GFR (CKD) >90 (>60 ml/min/1.73 sqM); Albumin 2.3 g/dL (3.5-5.0); Alkaline Phosphatase 155 U/L (38-126); Anion Gap 2 mmol/L; Blood Urea Nitrogen 9 mg/dL (7-17); Calcium 8.4 mg/dL (8.4-10.2); Carbon Dioxide 27 mmol/L (22-30); Chloride 107 mmol/L (98-107); Glucose 80 mg/dL (74-99); Non-African American GFR(CKD) 90 (>60 ml/min/1.73 sqM); Sodium 136 mmol/L (137-145); Total Bilirubin 0.5 mg/dL (0.2-1.3); Total Protein 4.7 g/dL (6.3-8.2)
[2022-12-17] MEDS: LEVOTHYROXINE 100 MCG TAB PO SCH (06:51)
[2022-12-17] MEDS: NOREPINEPHRINE 4 MG in SODIUM CHLORIDE 0.9% 250 ML IV SCH ×2 (06:51→22:57)
[2022-12-17] MEDS: FAMOTIDINE 20 MG/2 ML VIAL IV SCH ×2 (07:56→20:55)
[2022-12-17] MEDS: PREGABALIN 100 MG CAP PO SCH ×3 (08:05→21:03)
[2022-12-17] MEDS: CHOLECALCIFEROL 25 MCG (1000 IU) TABLET PO SCH (08:05)
[2022-12-17] MEDS: HEPARIN SODIUM,PORCINE 5,000 UNIT/ML 1 ML VIAL SQ SCH ×2 (08:05→20:55)
[2022-12-17] MEDS: ASCORBIC ACID 500 MG TAB PO SCH (08:05)
[2022-12-17] MEDS: MORPHINE SULFATE 4 MG/ML SYRINGE IV PRN (08:17)
--- NOTE | 2022-12-17 09:17 | P.PN ---
Subjective Progress Note Date: 12/17/22 This is a 67-year-old female patient with a known history of hyperlipidemia, hypertension, osteoarthritis, hypothyroidism, neuropathy of the bilateral feet with chronic venous stasis and previous cellulitis and osteomyelitis with multiple toes amputated on the left foot. Previous MRSA infection of the left foot as well. She follows at the wound Center. She was having increasing pain and redness, warmth of the left thigh posteriorly and came here to the emergency room for the same. He was initially admitted to the regular medical floor at approximately 8:00 last night she developed hypotension and rapid response team was called. She was subsequently transferred to the intensive care unit. She is seen today in consultation. She is awake and alert in no acute distress. She is on norepinephrine at 0.02 mcg/kg/m. She received 2 L of fluid resuscitation. She is initiated on cefepime. She received Flagyl 1. Previous wound cultures from June 2021 of the left foot were positive for MSSA and Enterobacter cloacae, enterococcus faecalis VRE. White count 12.2. Hemoglobin 10.3. Platelets 98,000. Sodium 139. Potassium 3.2. Bicarb 20. BUN 18. Creatinine 0.87. AST 90. ALT 37. Influenza screen negative. RSV screen negative. COVID-19 screen negative. Doppler of the left lower extremity was negative for DVT. X-ray reveals low lung volumes with generalized hazy appearance possible atelectasis versus pulmonary edema. The patient is seen today 12/14/2022 and follow-up in the intensive care unit. She is currently sitting up in bed. Awake and alert in no acute distress. Breathing easier today compared to yesterday. She is maintaining good O2 saturations in the mid 90s on 2 L nasal cannula. She has been off norepinephrine. Normal saline at 130 ML's per hour. She is in a +5 L balance since admission. Blood pressure stable. Doppler of the left lower extremity ru led out DVT. There is subcutaneous edema without organizing fluid collection. No evidence of abscess. Blood cultures reveal no growth to date. White count 8.0. Hemoglobin 10.1. Platelets 75,000. Sodium 140. Potassium 4.2. Bicarb 21. BUN 17. Creatinine 0.74. ProBNP 85. Pro-calcitonin 1.41. Cortisol level was 10. She remains on daptomycin and cefepime. On today's evaluation of a 2022, I'm seeing the patient for a follow-up. The patient was in the intensive care unit for sepsis related to cellulitis of the patient has bilateral lower extremity cellulitis and chronic venous stasis in the legs. She has also previous history of osteomyelitis on multiple to amputation of the left foot and she has had previous MRSA infection of the left foot as well. She has hypertension, hyperlipidemia, osteoarthritis, hypothyroidism and history of neuropathy. The patient is currently on a combination of daptomycin and IV cefepime. She is currently off pressors. She is on IV fluids which is running at a rate of 75 mL an hour of normal saline. His resting comfortably in bed and she is currently on room air oxygen. In terms of her blood work, the patient's white cell sounds at 5.8 with a hemoglobin of 9.6 and a platelet count of 110. Electrodes are within normal limits. Her serum cortisol was 10. Pro-calcitonin was 1.4 from 12/13/2022. The blood culture still negative. Ultrasound Doppler of the lower extremities as well as done on 12/13/2022 showed septic in his emphysema without any organizing fluid or collection. This cellulitis is in her left thigh is improved considerably. There is no significant erythema on today's evaluation. She also has wounds feet/ankles bilaterally on the lateral aspect. No active purulent drainage at this point in time and the patient is receiving wound care with [facility]. On 12/16/2022, I'm seeing the patient for a follow-up. She is still having significant amount of pain in her left thigh. There is obvious swelling in her medial thigh area and upon palpation, there could be an underlying collection. Ultrasound of the thigh was done and showed subcu in his emphysema and there was no abscess. Nevertheless, the area is quite tender and painful. Doppler of the left otic some additional is no evidence of any DVT. The patient remains on a combination of daptomycin and cefepime. She is on no pressors for now. The wound culture from the left lower extremity wound was gram-negative bacillus. The patient has had rest of the labs that show a white cell count of 5.6 with a hemoglobin of 9.5 and a platelet count of 134. BUN is 12 with a creatinine of 0.69 and a sodium levels of 139. She is on room air oxygen pH is quite uncomfortable because of her pain in the left thigh area. On today's evaluation of a 2022, the patient is still having pain in her left side. CAT scan of the left lower extremity was done and showed no evidence of any fracture or dislocation. There was skin thickening with fat stranding/edema most prominent within the left thigh. There is also fluid along the medial aspect of the distal left lower extremity soft tissues without organizing gram enhancement to suggest abscess. No subcutaneous emphysema. Meanwhile, the patient remains on a combination of daptomycin and cefepime. The blood work from today is showing a white cell count of 4.3, hemoglobin 9.4, BUN is 19 with a creatinine of 0.69 and a sodium level is at 136. Blood sugars at 155. The microbiology from the left lower extremity wound is showing presumptive staph aureus and gram-negative bacillus and the patient is appropriately covered with antibiotics. She is on room air oxygen. No respiratory distress. She is tolerating her diet. No significant morbidity and the patient is essentially in bed for now. IV fluids are in the form of KVO. No diuretics at this point in time. Fluid balance has been -750 over the past 24 hours. Objective - Vital Signs Vital signs: Vital Signs Temp 98.7 F 12/17/22 08:00 Pulse 69 12/17/22 08:00 Resp 16 12/17/22 08:00 BP 141/75 12/17/22 08:00 Pulse Ox 96 12/17/22 08:00 FiO2 Intake & Output 12/16/22 12/17/22 12/17/22 18:59 06:59 18:59 Intake Total 910 640 Output Total 1660 0 1370 Balance -750 0 -730 Weight 143.7 kg Intake: IV 360 440 Cefepime 2 gm In Sodium 200 200 Chloride 0.9% 100 ml @ 25 mls/hr IVPB Q12HR VENKAT Rx #:[id number] DAPTOmycin 400 mg In 100 Sodium Chloride 0.9% 50 ml @ 100 mls/hr IVPB Q24HR VENKAT Rx#:[id number] Sodium Chloride 0.9% 1, 60 240 000 ml @ 10 mls/hr IV . Q24H VENKAT Rx#:[id number] Oral 550 200 Output: Urine 1660 0 1370 Other: Voiding Method Indwelling Catheter Indwelling Catheter # Bowel Movements 1 - Exam GENERAL EXAM: Alert, morbidly obese 67-year-old female, on RA nasal cannula, in no apparent distress. HEAD: Normocephalic. EYES: Normal reaction of pupils, equal size. NOSE: Clear with pink turbinates. THROAT: No erythema or exudates. NECK: No masses, no JVD. CHEST: No chest wall deformity. LUNGS: Equal air entry with no crackles, wheeze, rhonchi or dullness. CVS: S1 and S2 normal with no audible murmur, regular rhythm. ABDOMEN: No hepatosplenomegaly, normal bowel sounds, no guarding or rigidity. SPINE: No scoliosis or deformity SKIN: No rashes, wounds of various sizes on the lateral aspect of the ankle on the left than on the right bilaterally. No active drainage. 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 Not erythematous. She has chronic venous stasis and lower extremity is bilaterally. She has had previous amputations in her left foot. There is some swelling in the medial aspect of the left thigh and possibly some fluid collection. The area is quite tender. Overlying skin is nonerythematous. CENTRAL NERVOUS SYSTEM: No focal deficits, tone is normal in all 4 extremities. EXTREMITIES: Changes of chronic venous stasis. Previous amputations of the left upper second and third toe. Redness and warmth of the left thigh, improved. No clubbing, no cyanosis. Peripheral pulses are intact. - Labs CBC & Chem 7: 12/17/22 05:04 12/17/22 05:04 Labs: Abnormal Lab Results - Last 24 Hours (Table) 12/17/22 12/17/22 Range/Units 05:04 05:04 RBC 3.09 L (3.80-5.40) m/uL Hgb 9.4 L (11.4-16.0) gm/dL Hct 29.1 L (34.0-46.0) % Plt Count 146 L (150-450) k/uL Sodium 136 L (137-145) mmol/L Alkaline Phosphatase 155 H (38-126) U/L Total Protein 4.7 L (6.3-8.2) g/dL Albumin 2.3 L (3.5-5.0) g/dL Microbiology - Last 24 Hours (Table) 12/13/22 11:40 Gram Stain - Preliminary Leg - Left Wound Culture - Preliminary Gram Neg Bacilli Presumptive Staph aureus Assessment and Plan Plan: Sepsis with secondary hypotension, recovered and the patient is currently hemodynamically stable on no pressors Sepsis secondary to cellulitis of the left thigh, improved, nevertheless, the area still swollen and painful. Ultrasound the left thigh shows subcu in his emphysema and there is no abscess. CAT scan of the left lower extremity was also noted and there is no evidence of any abscess or fluid collection and is consistent with septic in his edema. Cellulitis of the left thigh, improving, possible collection/fluid/abscess although ultrasound the left lower extremity was negative. Chronic wounds in her feet bilaterally, lateral last of the ankle, several wounds on the left and one on the right of various sizes. The cultures are showing gram-negative bacillus and staph aureus. The patient is on daptomycin and cefepime. 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 No GI symptoms at this point in time. Former smoker Plan: Obtain a CAT scan of the left lower extremity with contrast, this was completed yesterday and the results were noted, no abscess Continue cefepime, daptomycin Continue wound care with medi honey and dressing/nonadherent adherent dressing Start the patient on Lasix 20 mg IV every 12 hours No pressors for now IV fluids to KVO Continue wound care Continue Synthroid Continue Lyrica Continue amitriptyline Currently on room air oxygen Transfer to the regular medical floor We will continue to follow
[2022-12-17] MEDS: polyethylene glycoL 3350 17 GM POWD.PACK PO SCH (10:13)
[2022-12-17] MEDS: FUROSEMIDE 10 MG/ML 2 ML VIAL IV SCH ×2 (10:27→20:57)
[2022-12-17] MEDS: ONDANSETRON 4 MG/2 ML VIAL IVP PRN (10:58)
--- NOTE | 2022-12-17 11:35 | PN ---
PROGRESS NOTE This is a 67-year-old white female, well known to me from the wound clinic. Patient has a wound on the left lower extremity. She has been coming for followup on regular basis. The patient has been complaining of some left upper thigh pain. Femoral pulses are present. CT scan showed there is a skin thickening with stranding identified within the medial aspect of the thigh. There is some fluid along the medial aspect of the leg. No evidence of abscess formation noted. I have reviewed this case with the radiologist. There is no evidence of abscess. There is some fluid collection with some stranding and mild cellulitis. The patient is on IV antibiotic under care of Infectious Disease. I recommended to use Silvadene cream with compression wrap. We will have a close followup. MMODL / IJN: [id number] /
[2022-12-17] MEDS: HYDROcodone/APAP 10-325MG 1 EACH TAB PO PRN (11:51)
[2022-12-17] MEDS: SILVER sulfADIAZINE Cream 400 GM 1 APPLIC APPLIC TOPICAL SCH (11:53)
[2022-12-17] MEDS: BUTALB/APAP/CAFF 50-325-40MG TAB PO PRN (16:43)
--- NOTE | 2022-12-17 18:44 | P.PN ---
Progress Note - Text Progress Note Date: 12/17/22 Chief Complaint: Pain upper posterior thigh 67-year-old female presents emergency Department complaining that she has pain in the upper posterior thigh since last night she states is getting more swollen and more tender. Patient states she thinks there is also warm. Patient denies any difficulty breathing shortness of breath or chest pain. Patient denies any palpitations. Patient denies any lightheadedness or dizziness. Patient denies any back pain. 59 female DF for evaluation of severe left upper thigh pain significant swelling and tenderness. Patient states his appointment with the pain is causing to be disabled debilitated if she cannot currently ambulate secondary to pain. Patient does live by herself White count 12.2. Hemoglobin 10.3. Platelets 98,000. Sodium 139. Potassium 3.2. Bicarb 20. BUN 18. Creatinine 0.87. AST 90. ALT 37. Influenza screen negative. RSV screen negative. COVID-19 screen negative. Doppler of the left lower extremity was negative for DVT. X-ray reveals low lung volumes with generalized hazy appearance possible atelectasis versus pulmonary edema. Patient is being admitted to hospital for IV antibiotic treatment and evaluation by ID -- Patient developed profound hypotension and was transferred to ICU through the night; has required pressor agents; patient has been continued on IV cefepime and daptomycin is admitted 12/14/2022 Patient is seen and evaluated in room at bedside; admitted with sepsis irelated to left lower extremity cellulitis especially significant swelling redness of the left medial thigh area need to rule out underlying abscess. wID recommending ultrasound of the left thigh to make sure no evidence of any fluid suspicious for abscess that may need to be drained. local wound culture from the wound to the left posterior leg as possible source of this infection. continue with the cefepime however I will add daptomycin to cover for the gram- positive while waiting for the culture to finalize. local wound care with a dry Aquacel silver dressing followed by Yaya wrap for compression change every 48 hour. 12/15/2022: I assumed care of the patient today. ICU. Reclining in bed. Eating well. On sinus rhythm. Slightly some pain and redness in the inside of the left upper thigh. No fever. On IV cefepime and daptomycin per ID. 12/16/2022: ICU. Computed tomography scan done today of the left lower extremity shows suspected abscess. Pending evaluation by Dr. Danielson from vascular for possible I&D. On IV daptomycin and cefepime. Pain at the affected site. Eating fair. 12/17/2022: ICU. Patient was seen by vascular Dr. Morris. He reviewed the CAT scan and ultrasound. Does not feel that is any abscess. Only cellulitis. No surgical intervention. Continue antibiotics. Patient's pain in the left thigh better. Tolerating diet. On IV cefepime and IV daptomycin. Active Medications Acetaminophen/Butalbital/Caffeine (Butalb/Apap/Caff 50-325-40mg Tab) 2 each PO Q4HR PRN PRN Reason: Headache Last Admin: 12/17/22 16:43 Dose: 2 each Hydrocodone Bitart/Acetaminophen (Hydrocodone/Apap 10-325mg 1 Each Tab) 1 each PO Q6H PRN PRN Reason: Pain Last Admin: 12/17/22 11:51 Dose: 1 each Amitriptyline HCl (Amitriptyline Hcl 10 Mg Tab) 10 mg PO HS VENKAT Last Admin: 12/16/22 21:04 Dose: 10 mg Ascorbic Acid (Ascorbic Acid 500 Mg Tab) 1,000 mg PO DAILY VENKAT Last Admin: 12/17/22 08:05 Dose: 1,000 mg Cholecalciferol (Cholecalciferol 25 Mcg (1000 Iu) Tablet) 50 mcg PO DAILY VENKAT Last Admin: 12/17/22 08:05 Dose: 50 mcg Famotidine (Famotidine 20 Mg/2 Ml Vial) 20 mg IV Q12HR VENKAT Last Admin: 12/17/22 07:56 Dose: 20 mg Furosemide (Furosemide 10 Mg/Ml 2 Ml Vial) 20 mg IV Q12HR VENKAT Last Admin: 12/17/22 10:27 Dose: 20 mg Heparin Sodium (Porcine) (Heparin Sodium,Porcine 5,000 Unit/Ml 1 Ml Vial) 5,000 unit SQ Q12HR VENKAT Last Admin: 12/17/22 08:05 Dose: 5,000 unit Sodium Chloride (Saline 0.9%) 1,000 mls @ 10 mls/hr IV .Q24H VENKAT Last Admin: 12/17/22 00:56 Dose: Not Given Norepinephrine Bitartrate 4 mg (/ Sodium Chloride) 254 mls @ 14.517 mls/hr IV .[id number] [facility]; Protocol Last Admin: 12/17/22 06:51 Dose: Not Given Daptomycin 400 mg/ Sodium (Chloride) 50 mls @ 100 mls/hr IVPB Q24HR VENKAT; Protocol Last Admin: 12/17/22 10:13 Dose: 100 mls/hr Cefepime HCl 2 gm/ Sodium (Chloride) 100 mls @ 25 mls/hr IVPB Q8HR VENKAT; Protocol Last Admin: 12/17/22 16:35 Dose: 25 mls/hr Levothyroxine Sodium (Levothyroxine 100 Mcg Tab) 100 mcg PO 0630 [facility]ENKAT Last Admin: 12/17/22 06:51 Dose: 100 mcg Lisinopril (Lisinopril 20 Mg Tab) 20 mg PO BID [facility] Last Admin: 12/17/22 08:06 Dose: 20 mg Miscellaneous Information (Potassium Replacement Protocol 1 Each Misc) 1 each MISCELLANE DAILY PRN; Protocol PRN Reason: Per Protocol Miscellaneous Information (Potassium Replacement Protocol 1 Each Misc) 1 each MISCELLANE DAILY PRN; Protocol PRN Reason: Per Protocol Miscellaneous Information (Potassium Replacement Protocol 1 Each Misc) 1 each MISCELLANE DAILY PRN; Protocol PRN Reason: Per Protocol Morphine Sulfate (Morphine Sulfate 4 Mg/Ml Syringe) 4 mg IV Q4HR PRN PRN Reason: Severe Pain (Scale 7 to 10) Last Admin: 12/17/22 08:17 Dose: 4 mg Naloxone HCl (Naloxone 0.4 Mg/Ml 1 Ml Vial) 0.2 mg IV Q2M PRN PRN Reason: Opioid Reversal Ondansetron HCl (Ondansetron 4 Mg/2 Ml Vial) 4 mg IVP Q8HR PRN PRN Reason: Nausea And Vomiting Last Admin: 12/17/22 10:58 Dose: 4 mg Polyethylene Glycol (Polyethylene Glycol 3350 17 Gm Powd.Pack) 17 gm PO DAILY VENKAT Last Admin: 12/17/22 10:13 Dose: Not Given Pregabalin (Pregabalin 100 Mg Cap) 100 mg PO TID [facility] Last Admin: 12/17/22 16:34 Dose: 100 mg Silver Sulfadiazine (Silver Sulfadiazine Cream 400 Gm 1 Applic Applic) 1 applic TOPICAL DAILY [facility]; Protocol Last Admin: 12/17/22 11:53 Dose: 1 applic Past medical history: Hyperlipidemia, hypertension, osteoarthritis, hypothyroid, uses wheelchair, peripheral neuropathy, chronic venous stasis, bilateral lower extremity lymphedema, urinary stress incontinence, lymph edema, umbilical hernia, hypothyroid. 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 Smoked for 20 years stopped in 1990. Alcohol rarely. Lives alone. Uses a wheelchair. Physical examination: VITAL SIGNS: 98.7, 69, 16, 141/75, 96% room air GENERAL: BMI 47.8, reclining, tired EYES: Pupils equal. Conjunctiva normall. HEENT: External appearance of nose and ears normal, oral cavity grossly normal. NECK: JVD not raised; masses not palpable. HEART: First and second heart sounds are normal; some edema. LUNGS: Respiratory rate normal; distant breath sounds. ABDOMEN: Soft, nontender, liver spleen not palpable, no masses palpable. PSYCH: Alert and oriented x3; mood and affect normal. MUSCULOSKELETAL:No Clubbing/cyanosis;muscles-grossly intact. venous insufficiency and lymphedema in the lower extremity. increased local temperature and redness in the upper thigh left leg medially. localized increased tenderness. EXTREMITY: Left foot, amputated big toe and third toe INVESTIGATIONS, reviewed in the clinical context: December 17: Obesity 4.3 hemoglobin 9.4 platelets 146 potassium 4 creatinine 0.69 Computed tomography scan left lower extremity [December 20]: Suspected abscess/fluid collection December 16: WBC [age]-year-old woman 9.5 platelets 134 potassium 3.8 creatinine 0.69 December 15: White count 5.8 hemoglobin 9.6 platelets 110 3137 potassium 3.9 creatinine 0.74 Procalcitonin 1.41 Cortizone-10 Ultrasound extremity nonvascular left colon subcutaneous edema without organizing fluid collection. Assessment and plan: -Acute severe left thigh cellulitis, causing sepsis: Slow to respond IV cefepime, IV daptomycin. Seen by Dr. Morris from vascular. Does not feel it to be an abscess. No I&D.. -Septic shock secondary to above patient was on pressors: corrected -chronic low back pain, likely from spinal stenosis/herniated disc with radiculopathy and down and affect.-likely from L1-L2 and L3-L4 nerve distribution. Pain medications as needed -History of Pyoderma gangrenosum -Hyperlipidemia Lipitor 10 mg daily at bedtime, -Essential hypertension, Currently off blood pressure medications -Primary osteoarthritis, pain medications when necessary -Hypothyroid, Synthroid 100 g daily -Normocytic anemia likely of chronic disease -Thrombocytopenia likely from infection -Chronic medical debility uses wheelchair -Idiopathic peripheral neuropathy Lyrica 100 mg 3 times a day -Chronic venous stasis -Bilateral lower extremity lymphedema -Chronic urinary stress incontinence -Chronic umbilical hernia -Morbid obesity BMI 47.8 Weight loss measures -Full code Scheduled patient. Continue antibiotics at the medical treatment. Left thigh pain is actually bit better.
[2022-12-17] MEDS: AMITRIPTYLINE HCL 10 MG TAB PO SCH (20:55)
[2022-12-17] MEDS: ATORVASTATIN 10 MG TAB PO SCH (22:37)
[2022-12-18] MEDS: CEFEPIME 2 GM in SODIUM CHLORIDE 0.9% 100 ML IVPB SCH ×3 (00:27→15:54)
[2022-12-18] MEDS: HYDROcodone/APAP 10-325MG 1 EACH TAB PO PRN ×2 (04:21→10:49)
[2022-12-18] MEDS: SODIUM CHLORIDE 0.9% 1,000 ML IV SCH (04:26)
[2022-12-18 05:08] LABS: HCT 32.9 % (34.0-46.0); HGB 10.8 gm/dL (11.4-16.0); MCH 30.5 pg (25.0-35.0); MCHC 32.7 g/dL (31.0-37.0); MCV 93.2 fL (80.0-100.0); Mean Platelet Volume 8.9; Platelet Count 194 k/uL (150-450); RBC 3.53 m/uL (3.80-5.40); RDW 13.9 % (11.5-15.5); WBC 5.1 k/uL (3.8-10.6)
[2022-12-18 05:40] LABS: ALT 29 U/L (4-34); AST 41 U/L (14-36); African American GFR (CKD) >90 (>60 ml/min/1.73 sqM); Albumin 2.7 g/dL (3.5-5.0); Alkaline Phosphatase 210 U/L (38-126); Anion Gap 4 mmol/L; Blood Urea Nitrogen 11 mg/dL (7-17); Calcium 8.9 mg/dL (8.4-10.2); Carbon Dioxide 32 mmol/L (22-30); Chloride 101 mmol/L (98-107); Glucose 87 mg/dL (74-99); Non-African American GFR(CKD) 81 (>60 ml/min/1.73 sqM); Potassium 3.9 mmol/L (3.5-5.1); Sodium 137 mmol/L (137-145); Total Bilirubin 0.5 mg/dL (0.2-1.3); Total Protein 5.4 g/dL (6.3-8.2)
[2022-12-18] MEDS: MORPHINE SULFATE 4 MG/ML SYRINGE IV PRN ×3 (05:40→15:54)
[2022-12-18] MEDS: LEVOTHYROXINE 100 MCG TAB PO SCH (05:41)
[2022-12-18] MEDS ORDERED: Potassium Replacement Protocol 1 EACH MISC MISCELLANE PRN (06:29)
[2022-12-18] MEDS ORDERED: POTASSIUM CHLORIDE ER 20 MEQ TAB.ER PO SCH (07:30)
[2022-12-18] MEDS: FUROSEMIDE 10 MG/ML 2 ML VIAL IV SCH ×2 (08:41→21:48)
[2022-12-18] MEDS: HEPARIN SODIUM,PORCINE 5,000 UNIT/ML 1 ML VIAL SQ SCH ×2 (08:41→21:48)
[2022-12-18] MEDS: FAMOTIDINE 20 MG/2 ML VIAL IV SCH ×2 (08:42→21:48)
[2022-12-18] MEDS: CHOLECALCIFEROL 25 MCG (1000 IU) TABLET PO SCH (08:42)
[2022-12-18] MEDS: PREGABALIN 100 MG CAP PO SCH ×3 (08:43→21:47)
[2022-12-18] MEDS: ASCORBIC ACID 500 MG TAB PO SCH (08:43)
[2022-12-18] MEDS: lisinopriL 20 MG TAB PO SCH ×2 (08:43→21:47)
[2022-12-18] MEDS: polyethylene glycoL 3350 17 GM POWD.PACK PO SCH (08:44)
[2022-12-18] MEDS: SILVER sulfADIAZINE Cream 400 GM 1 APPLIC APPLIC TOPICAL SCH (08:45)
--- NOTE | 2022-12-18 09:20 | P.PN ---
Subjective Progress Note Date: 12/18/22 This is a 67-year-old female patient with a known history of hyperlipidemia, hypertension, osteoarthritis, hypothyroidism, neuropathy of the bilateral feet with chronic venous stasis and previous cellulitis and osteomyelitis with multiple toes amputated on the left foot. Previous MRSA infection of the left foot as well. She follows at the wound Center. She was having increasing pain and redness, warmth of the left thigh posteriorly and came here to the emergency room for the same. He was initially admitted to the regular medical floor at approximately 8:00 last night she developed hypotension and rapid response team was called. She was subsequently transferred to the intensive care unit. She is seen today in consultation. She is awake and alert in no acute distress. She is on norepinephrine at 0.02 mcg/kg/m. She received 2 L of fluid resuscitation. She is initiated on cefepime. She received Flagyl 1. Previous wound cultures from June 2021 of the left foot were positive for MSSA and Enterobacter cloacae, enterococcus faecalis VRE. White count 12.2. Hemoglobin 10.3. Platelets 98,000. Sodium 139. Potassium 3.2. Bicarb 20. BUN 18. Creatinine 0.87. AST 90. ALT 37. Influenza screen negative. RSV screen negative. COVID-19 screen negative. Doppler of the left lower extremity was negative for DVT. X-ray reveals low lung volumes with generalized hazy appearance possible atelectasis versus pulmonary edema. The patient is seen today 12/14/2022 and follow-up in the intensive care unit. She is currently sitting up in bed. Awake and alert in no acute distress. Breathing easier today compared to yesterday. She is maintaining good O2 saturations in the mid 90s on 2 L nasal cannula. She has been off norepinephrine. Normal saline at 130 ML's per hour. She is in a +5 L balance since admission. Blood pressure stable. Doppler of the left lower extremity ru led out DVT. There is subcutaneous edema without organizing fluid collection. No evidence of abscess. Blood cultures reveal no growth to date. White count 8.0. Hemoglobin 10.1. Platelets 75,000. Sodium 140. Potassium 4.2. Bicarb 21. BUN 17. Creatinine 0.74. ProBNP 85. Pro-calcitonin 1.41. Cortisol level was 10. She remains on daptomycin and cefepime. On today's evaluation of a 2022, I'm seeing the patient for a follow-up. The patient was in the intensive care unit for sepsis related to cellulitis of the patient has bilateral lower extremity cellulitis and chronic venous stasis in the legs. She has also previous history of osteomyelitis on multiple to amputation of the left foot and she has had previous MRSA infection of the left foot as well. She has hypertension, hyperlipidemia, osteoarthritis, hypothyroidism and history of neuropathy. The patient is currently on a combination of daptomycin and IV cefepime. She is currently off pressors. She is on IV fluids which is running at a rate of 75 mL an hour of normal saline. His resting comfortably in bed and she is currently on room air oxygen. In terms of her blood work, the patient's white cell sounds at 5.8 with a hemoglobin of 9.6 and a platelet count of 110. Electrodes are within normal limits. Her serum cortisol was 10. Pro-calcitonin was 1.4 from 12/13/2022. The blood culture still negative. Ultrasound Doppler of the lower extremities as well as done on 12/13/2022 showed septic in his emphysema without any organizing fluid or collection. This cellulitis is in her left thigh is improved considerably. There is no significant erythema on today's evaluation. She also has wounds feet/ankles bilaterally on the lateral aspect. No active purulent drainage at this point in time and the patient is receiving wound care with [facility]. On 12/16/2022, I'm seeing the patient for a follow-up. She is still having significant amount of pain in her left thigh. There is obvious swelling in her medial thigh area and upon palpation, there could be an underlying collection. Ultrasound of the thigh was done and showed subcu in his emphysema and there was no abscess. Nevertheless, the area is quite tender and painful. Doppler of the left otic some additional is no evidence of any DVT. The patient remains on a combination of daptomycin and cefepime. She is on no pressors for now. The wound culture from the left lower extremity wound was gram-negative bacillus. The patient has had rest of the labs that show a white cell count of 5.6 with a hemoglobin of 9.5 and a platelet count of 134. BUN is 12 with a creatinine of 0.69 and a sodium levels of 139. She is on room air oxygen pH is quite uncomfortable because of her pain in the left thigh area. On today's evaluation of a 2022, the patient is still having pain in her left side. CAT scan of the left lower extremity was done and showed no evidence of any fracture or dislocation. There was skin thickening with fat stranding/edema most prominent within the left thigh. There is also fluid along the medial aspect of the distal left lower extremity soft tissues without organizing gram enhancement to suggest abscess. No subcutaneous emphysema. Meanwhile, the patient remains on a combination of daptomycin and cefepime. The blood work from today is showing a white cell count of 4.3, hemoglobin 9.4, BUN is 19 with a creatinine of 0.69 and a sodium level is at 136. Blood sugars at 155. The microbiology from the left lower extremity wound is showing presumptive staph aureus and gram-negative bacillus and the patient is appropriately covered with antibiotics. She is on room air oxygen. No respiratory distress. She is tolerating her diet. No significant morbidity and the patient is essentially in bed for now. IV fluids are in the form of KVO. No diuretics at this point in time. Fluid balance has been -750 over the past 24 hours. On today's evaluation of 12/18/2022, the patient is feeling better. They tenderness and the swelling in her left thigh is improved as the patient was started on some diuretics yesterday and she is already feeling better. She remains on daptomycin and cefepime and the wound culture from the left lower extremity has revealed infection with a combination of Pseudomonas and MRSA. She is otherwise doing well. Urine output is adequate.The fluid balance over the past 24 hours has been essentially negative at least 6 L and the patient currently has a white cell count of 5.1, hemoglobin of 10.8, the BUN is currently at 11 with a creatinine of 0.7 and his sodium level is at 137. She is resting comfortably in bed. No new complaints. The wounds were inspected. There is no active drainage at this point in time. We are applying Silvadene and honey Objective - Vital Signs Vital signs: Vital Signs Temp 98.2 F 12/18/22 02:00 Pulse 68 12/18/22 02:00 Resp 18 12/18/22 02:00 BP 118/76 12/18/22 02:00 Pulse Ox 92 L 12/18/22 02:00 FiO2 Intake & Output 12/17/22 12/18/22 12/18/22 18:59 06:59 18:59 Intake Total 790 170 Output Total 4620 2350 Balance -3830 -2180 Weight 137.2 kg Intake: IV 490 170 Cefepime 2 gm In Sodium 200 100 Chloride 0.9% 100 ml @ 25 mls/hr IVPB Q12HR [facility] Rx #:[id number] DAPTOmycin 400 mg In 50 Sodium Chloride 0.9% 50 ml @ 100 mls/hr IVPB Q24HR [facility]ENKAT Rx#:[id number] Sodium Chloride 0.9% 1, 240 70 000 ml @ 10 mls/hr IV . Q24H [facility]KAT Rx#:[id number] Intake, IV Titration 100 Amount Cefepime 2 gm In Sodium 100 Chloride 0.9% 100 ml @ 25 mls/hr IVPB Q8HR [facility]ENKAT Rx# :[id number] Oral 200 Output: Urine 4620 2350 Other: Voiding Method Indwelling Catheter Indwelling Catheter - Exam GENERAL EXAM: Alert, morbidly obese 67-year-old female, on RA nasal cannula, in no apparent distress. HEAD: Normocephalic. EYES: Normal reaction of pupils, equal size. NOSE: Clear with pink turbinates. THROAT: No erythema or exudates. NECK: No masses, no JVD. CHEST: No chest wall deformity. LUNGS: Equal air entry with no crackles, wheeze, rhonchi or dullness. CVS: S1 and S2 normal with no audible murmur, regular rhythm. ABDOMEN: No hepatosplenomegaly, normal bowel sounds, no guarding or rigidity. SPINE: No scoliosis or deformity SKIN: No rashes, wounds of various sizes on the lateral aspect of the ankle on the left than on the right bilaterally. No active drainage. Cellulitis left lower extremity thigh area is improving and the area is obviously dye tank tender. Not erythematous. She has chronic venous stasis and lower extremity is bilaterally. She has had previous amputations in her left foot. There is some swelling in the medial aspect of the left thigh and possibly some fluid collection. The area is quite tender. Overlying skin is nonerythematous. CENTRAL NERVOUS SYSTEM: No focal deficits, tone is normal in all 4 extremities. EXTREMITIES: Changes of chronic venous stasis. Previous amputations of the left upper second and third toe. Redness and warmth of the left thigh, improved. No clubbing, no cyanosis. Peripheral pulses are intact. - Labs CBC & Chem 7: 12/18/22 04:30 12/18/22 04:30 Labs: Abnormal Lab Results - Last 24 Hours (Table) 12/18/22 12/18/22 Range/Units 04:30 04:30 RBC 3.53 L (3.80-5.40) m/uL Hgb 10.8 L (11.4-16.0) gm/dL Hct 32.9 L (34.0-46.0) % Carbon Dioxide 32 H (22-30) mmol/L AST 41 H (14-36) U/L Alkaline Phosphatase 210 H (38-126) U/L Total Protein 5.4 L (6.3-8.2) g/dL Albumin 2.7 L (3.5-5.0) g/dL Microbiology - Last 24 Hours (Table) 12/12/22 14:00 Blood Culture - Final Blood 12/12/22 13:45 Blood Culture - Final Blood 12/13/22 11:40 Anaerobic Culture - Preliminary Leg - Left 12/13/22 11:40 Gram Stain - Final Leg - Left Wound Culture - Final Pseudomonas aeruginosa Methicillin resist S. aureus Assessment and Plan Plan: Sepsis with secondary hypotension, recovered and the patient is currently hemodynamically stable on no pressors Sepsis secondary to cellulitis of the left thigh, improved, nevertheless, the area still swollen and painful. Ultrasound the left thigh shows subcu in his emphysema and there is no abscess. CAT scan of the left lower extremity was also noted and there is no evidence of any abscess or fluid collection and is consistent with septic in his edema. Cellulitis of the left thigh, improving, possible collection/fluid/abscess although ultrasound the left lower extremity was negative. Chronic wounds in her feet bilaterally, lateral last of the ankle, several wounds on the left and one on the right of various sizes. The cultures are showing MRSA and Pseudomonas The patient is on daptomycin and cefepime. 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 No GI symptoms at this point in time. Former smoker Plan: Clinically patient is feeling better and I will continue the Lasix for another 24 hours and she has been in a negative fluid balance of at least 6 L Electrolytes are stable Obtain a CAT scan of the left lower extremity with contrast, this was completed yesterday and the results were noted, no abscess Continue cefepime, daptomycin Continue wound care with medi honey and dressing/nonadherent adherent dressing No pressors for now IV fluids to KVO Continue wound care Continue Synthroid Continue Lyrica Continue amitriptyline Currently on room air oxygen Transfer to the regular medical floor We will continue to follow
[2022-12-18] MEDS: NOREPINEPHRINE 4 MG in SODIUM CHLORIDE 0.9% 250 ML IV SCH (15:42)
--- NOTE | 2022-12-18 16:34 | P.PN ---
Subjective Progress Note Date: 12/17/22 Principal diagnosis: Left leg wound and Cellulitis Patient is 67-year-old female with past medical his significant for hypertension hyperlipidemia diabetes mellitus history of diabetic foot infection requiring amputation of the toes currently did have a nonhealing wound to the left posterior leg area for the patient to follow with Dr. Danielson in the wound care center patient is presenting to [facility] ER for evaluation of left medial thigh pain swelling and tenderness, patient was noticed to be septic hypertension requiring admission to the ICU. On today's evaluation that is 12/17/2022, the patient continues to be afebrile, patient is breathing comfortably on room air the patient is off the pressor support, still vomiting or pain to the left thigh area no nausea no vomiting no abdominal pain and no diarrhea. Patient white count is 4.3 creatinine 0.69, patient did have a CT of the left thigh concerning for an abscess, local culture from the left leg wound is growing MRSA and Pseudomonas Objective - Vital Signs Vital signs: Vital Signs Temp 98.7 F 12/17/22 08:00 Pulse 69 12/17/22 08:00 Resp 16 12/17/22 08:00 BP 141/75 12/17/22 08:00 Pulse Ox 96 12/17/22 08:00 FiO2 Intake & Output 12/16/22 12/17/22 12/17/22 18:59 06:59 18:59 Intake Total 910 690 Output Total 1660 0 3620 Balance -750 0 -2930 Weight 143.7 kg Intake: IV 360 490 Cefepime 2 gm In Sodium 200 200 Chloride 0.9% 100 ml @ 25 mls/hr IVPB Q12HR [facility] Rx #:[id number] DAPTOmycin 400 mg In 100 50 Sodium Chloride 0.9% 50 ml @ 100 mls/hr IVPB Q24HR [facility]KNAT Rx#:[id number] Sodium Chloride 0.9% 1, 60 240 000 ml @ 10 mls/hr IV . Q24H [facility]KAT Rx#:[id number] Oral 550 200 Output: Urine 1660 0 3620 Other: Voiding Method Indwelling Catheter Indwelling Catheter Indwelling Catheter # Bowel Movements 1 - Exam GENERAL DESCRIPTION: Elderly female lying in bed in no distress RESPIRATORY SYSTEM: Unlabored breathing , decreased breath sounds at bases HEART: S1 S2 regular rate and rhythm ,no loud murmurs ABDOMEN: Soft , no tenderness EXTREMITIES left leg wound is currently dressed no drainage on the dressing - Labs CBC & Chem 7: 12/18/22 04:30 12/18/22 04:30 Labs: Abnormal Lab Results - Last 24 Hours (Table) 12/17/22 12/17/22 Range/Units 05:04 05:04 RBC 3.09 L (3.80-5.40) m/uL Hgb 9.4 L (11.4-16.0) gm/dL Hct 29.1 L (34.0-46.0) % Plt Count 146 L (150-450) k/uL Sodium 136 L (137-145) mmol/L Alkaline Phosphatase 155 H (38-126) U/L Total Protein 4.7 L (6.3-8.2) g/dL Albumin 2.3 L (3.5-5.0) g/dL Microbiology - Last 24 Hours (Table) 12/13/22 11:40 Anaerobic Culture - Preliminary Leg - Left 12/13/22 11:40 Gram Stain - Final Leg - Left Wound Culture - Final Pseudomonas aeruginosa Methicillin resist S. aureus Assessment and Plan (1) Cellulitis of left leg Current Visit: Yes Status: Acute Code(s): L03.116 - CELLULITIS OF LEFT LOWER LIMB SNOMED Code(s): 135095624 (2) Sepsis Current Visit: Yes Status: Acute Code(s): A41.9 - SEPSIS, UNSPECIFIED ORGANISM SNOMED Code(s): 43872330 Plan: Patient presented to hospital with sepsis in this patient with a fever tachycardia elevated white count source is left lower extremity cellulitis especially significant swelling redness of the left medial thigh area need to rule out underlying abscess. 2patient with multiple antibiotic allergies that would limit the number of antibiotics safe to use. 3ultrasound of the left medial thigh was negative for any abscess however the CT is now showing evidence of left thigh abscess for which vascular surgery has evaluated the patient not recommending I&D at this point 4local wound care to the left leg wound with Aquacel silver dressing change every 48 hour, nursing start changing the dressing this morning mention overall wound is looking better. 5patient left lower extremity culture currently growing MRSA and pseudomonas aeruginosa 6- patient to continue with cefepime and daptomycin while waiting for the culture to finalize and monitor clinical course closely Dictation was produced using dragon dictation software. please excuse any grammatical, word or spelling errors. Time with Patient: Less than 30
--- NOTE | 2022-12-18 16:35 | P.PN ---
Subjective Progress Note Date: 12/18/22 Principal diagnosis: Left leg wound and Cellulitis Patient is 67-year-old female with past medical his significant for hypertension hyperlipidemia diabetes mellitus history of diabetic foot infection requiring amputation of the toes currently did have a nonhealing wound to the left posterior leg area for the patient to follow with Dr. Danielson in the wound care center patient is presenting to [facility] ER for evaluation of left medial thigh pain swelling and tenderness, patient was noticed to be septic hypertension requiring admission to the ICU. On today's evaluation that is 12/18/2022, the patient denies any fever or any chills, patient is breathing comfortably on room air the patient is off the pressor support, the patient pain to the left thigh area has decreased in intensity, no nausea no vomiting no abdominal pain and no diarrhea. Patient white count is 5.1 creatinine 0.76, patient did have a CT of the left thigh concerning for an abscess, local culture from the left leg wound is growing MRSA and Pseudomonas Objective - Vital Signs Vital signs: Vital Signs Temp 97.9 F 12/18/22 08:00 Pulse 68 12/18/22 08:00 Resp 16 12/18/22 08:00 BP 121/71 12/18/22 08:00 Pulse Ox 95 12/18/22 08:00 FiO2 Intake & Output 12/17/22 12/18/22 12/18/22 18:59 06:59 18:59 Intake Total 790 170 680 Output Total 4620 2350 1800 Balance -3830 -2180 -1120 Weight 137.2 kg Intake: IV 490 170 130 Cefepime 2 gm In Sodium 200 100 Chloride 0.9% 100 ml @ 25 mls/hr IVPB Q12HR [facility] Rx #:[id number] DAPTOmycin 400 mg In 50 50 Sodium Chloride 0.9% 50 ml @ 100 mls/hr IVPB Q24HR [facility] Rx#:[id number] Sodium Chloride 0.9% 1, 240 70 80 000 ml @ 10 mls/hr IV . Q24H [facility] Rx#:[id number] Intake, IV Titration 100 100 Amount Cefepime 2 gm In Sodium 100 100 Chloride 0.9% 100 ml @ 25 mls/hr IVPB Q8HR [facility] Rx# :[id number] Oral 200 450 Output: Urine 4620 2350 1800 Other: Voiding Method Indwelling Catheter Indwelling Catheter Indwelling Catheter - Exam GENERAL DESCRIPTION: Elderly female lying in bed in no distress RESPIRATORY SYSTEM: Unlabored breathing , decreased breath sounds at bases HEART: S1 S2 regular rate and rhythm ,no loud murmurs ABDOMEN: Soft , no tenderness EXTREMITIES left leg wound is currently dressed no drainage on the dressing - Labs CBC & Chem 7: 12/18/22 04:30 12/18/22 04:30 Labs: Abnormal Lab Results - Last 24 Hours (Table) 12/18/22 12/18/22 Range/Units 04:30 04:30 RBC 3.53 L (3.80-5.40) m/uL Hgb 10.8 L (11.4-16.0) gm/dL Hct 32.9 L (34.0-46.0) % Carbon Dioxide 32 H (22-30) mmol/L AST 41 H (14-36) U/L Alkaline Phosphatase 210 H (38-126) U/L Total Protein 5.4 L (6.3-8.2) g/dL Albumin 2.7 L (3.5-5.0) g/dL Microbiology - Last 24 Hours (Table) 12/12/22 14:00 Blood Culture - Final Blood 12/12/22 13:45 Blood Culture - Final Blood 12/13/22 11:40 Anaerobic Culture - Preliminary Leg - Left 12/13/22 11:40 Gram Stain - Final Leg - Left Wound Culture - Final Pseudomonas aeruginosa Methicillin resist S. aureus Assessment and Plan (1) Cellulitis of left leg Current Visit: Yes Status: Acute Code(s): L03.116 - CELLULITIS OF LEFT LOWER LIMB SNOMED Code(s): 251135623 (2) Sepsis Current Visit: Yes Status: Acute Code(s): A41.9 - SEPSIS, UNSPECIFIED ORGANISM SNOMED Code(s): 09946834 Plan: Patient presented to hospital with sepsis in this patient with a fever tachycardia elevated white count source is left lower extremity cellulitis especially significant swelling redness of the left medial thigh area need to rule out underlying abscess. 2patient with multiple antibiotic allergies that would limit the number of antibiotics safe to use. 3ultrasound of the left medial thigh was negative for any abscess however the CT is now showing evidence of left thigh abscess for which vascular surgery has evaluated the patient not recommending I&D at this point 4local wound care to the left leg wound with Aquacel silver dressing change every 48 hour, nursing start changing the dressing this morning mention overall wound is looking better. 5patient left lower extremity culture currently growing MRSA and pseudomonas aeruginosa 6- patient seemed to show some clinical improvement and we will continue with cefepime and daptomycin and monitor clinical course closely Dictation was produced using [employer] dictation software. please excuse any grammatical, word or spelling errors. Time with Patient: Less than 30
--- NOTE | 2022-12-18 17:04 | P.PN ---
Progress Note - Text Progress Note Date: 12/18/22 Chief Complaint: Pain upper posterior thigh 67-year-old female presents emergency Department complaining that she has pain in the upper posterior thigh since last night she states is getting more swollen and more tender. Patient states she thinks there is also warm. Patient denies any difficulty breathing shortness of breath or chest pain. Patient denies any palpitations. Patient denies any lightheadedness or dizziness. Patient denies any back pain. 59 female DF for evaluation of severe left upper thigh pain significant swelling and tenderness. Patient states his appointment with the pain is causing to be disabled debilitated if she cannot currently ambulate secondary to pain. Patient does live by herself White count 12.2. Hemoglobin 10.3. Platelets 98,000. Sodium 139. Potassium 3.2. Bicarb 20. BUN 18. Creatinine 0.87. AST 90. ALT 37. Influenza screen negative. RSV screen negative. COVID-19 screen negative. Doppler of the left lower extremity was negative for DVT. X-ray reveals low lung volumes with generalized hazy appearance possible atelectasis versus pulmonary edema. Patient is being admitted to hospital for IV antibiotic treatment and evaluation by ID -- Patient developed profound hypotension and was transferred to ICU through the night; has required pressor agents; patient has been continued on IV cefepime and daptomycin is admitted 12/14/2022 Patient is seen and evaluated in room at bedside; admitted with sepsis irelated to left lower extremity cellulitis especially significant swelling redness of the left medial thigh area need to rule out underlying abscess. wID recommending ultrasound of the left thigh to make sure no evidence of any fluid suspicious for abscess that may need to be drained. local wound culture from the wound to the left posterior leg as possible source of this infection. continue with the cefepime however I will add daptomycin to cover for the gram- positive while waiting for the culture to finalize. local wound care with a dry Aquacel silver dressing followed by Yaya wrap for compression change every 48 hour. 12/15/2022: I assumed care of the patient today. ICU. Reclining in bed. Eating well. On sinus rhythm. Slightly some pain and redness in the inside of the left upper thigh. No fever. On IV cefepime and daptomycin per ID. 12/16/2022: ICU. Computed tomography scan done today of the left lower extremity shows suspected abscess. Pending evaluation by Dr. Danielson from vascular for possible I&D. On IV daptomycin and cefepime. Pain at the affected site. Eating fair. 12/17/2022: ICU. Patient was seen by vascular Dr. Morris. He reviewed the CAT scan and ultrasound. Does not feel that is any abscess. Only cellulitis. No surgical intervention. Continue antibiotics. Patient's pain in the left thigh better. Tolerating diet. On IV cefepime and IV daptomycin. 12/18/2022: Tolerating diet. Pain better. Remains on IV cefepime. IV daptomycin. No fever. Patient does have a nonhealing wound to his left posterior leg area each patient follows with Dr. Morris of the wound care center. Active Medications Acetaminophen/Butalbital/Caffeine (Butalb/Apap/Caff 50-325-40mg Tab) 2 each PO Q4HR PRN PRN Reason: Headache Last Admin: 12/17/22 16:43 Dose: 2 each Hydrocodone Bitart/Acetaminophen (Hydrocodone/Apap 10-325mg 1 Each Tab) 1 each PO Q6H PRN PRN Reason: Pain Last Admin: 12/18/22 10:49 Dose: 1 each Amitriptyline HCl (Amitriptyline Hcl 10 Mg Tab) 10 mg PO HS [facility] Last Admin: 12/17/22 20:55 Dose: 10 mg Ascorbic Acid (Ascorbic Acid 500 Mg Tab) 1,000 mg PO DAILY [facility] Last Admin: 12/18/22 08:43 Dose: 1,000 mg Atorvastatin Calcium (Atorvastatin 10 Mg Tab) 10 mg PO HS [facility] Last Admin: 12/17/22 22:37 Dose: 10 mg Cholecalciferol (Cholecalciferol 25 Mcg (1000 Iu) Tablet) 50 mcg PO DAILY [facility]KAT Last Admin: 12/18/22 08:42 Dose: 50 mcg Famotidine (Famotidine 20 Mg/2 Ml Vial) 20 mg IV Q12HR [facility]KAT Last Admin: 12/18/22 08:42 Dose: 20 mg Furosemide (Furosemide 10 Mg/Ml 2 Ml Vial) 20 mg IV Q12HR [facility]KAT Last Admin: 12/18/22 08:41 Dose: 20 mg Heparin Sodium (Porcine) (Heparin Sodium,Porcine 5,000 Unit/Ml 1 Ml Vial) 5,000 unit SQ Q12HR [facility]KAT Last Admin: 12/18/22 08:41 Dose: 5,000 unit Sodium Chloride (Saline 0.9%) 1,000 mls @ 10 mls/hr IV .Q24H [facility] Last Admin: 12/18/22 04:26 Dose: 10 mls/hr Norepinephrine Bitartrate 4 mg (/ Sodium Chloride) 254 mls @ 14.517 mls/hr IV .[id number] [facility]; Protocol Last Admin: 12/18/22 15:42 Dose: Not Given Daptomycin 400 mg/ Sodium (Chloride) 50 mls @ 100 mls/hr IVPB Q24HR [facility]; Protocol Last Admin: 12/18/22 10:28 Dose: 100 mls/hr Cefepime HCl 2 gm/ Sodium (Chloride) 100 mls @ 25 mls/hr IVPB Q8HR [facility]; Protocol Last Admin: 12/18/22 15:54 Dose: 25 mls/hr Levothyroxine Sodium (Levothyroxine 100 Mcg Tab) 100 mcg PO 0630 [facility] Last Admin: 12/18/22 05:41 Dose: 100 mcg Lisinopril (Lisinopril 20 Mg Tab) 20 mg PO BID [facility] Last Admin: 12/18/22 08:43 Dose: 20 mg Miscellaneous Information (Potassium Replacement Protocol 1 Each Misc) 1 each MISCELLANE DAILY PRN; Protocol PRN Reason: Per Protocol Miscellaneous Information (Potassium Replacement Protocol 1 Each Misc) 1 each MISCELLANE DAILY PRN; Protocol PRN Reason: Per Protocol Miscellaneous Information (Potassium Replacement Protocol 1 Each Misc) 1 each MISCELLANE DAILY PRN; Protocol PRN Reason: Per Protocol Miscellaneous Information (Potassium Replacement Protocol 1 Each Misc) 1 each MISCELLANE DAILY PRN; Protocol PRN Reason: Per Protocol Morphine Sulfate (Morphine Sulfate 4 Mg/Ml Syringe) 4 mg IV Q4HR PRN PRN Reason: Severe Pain (Scale 7 to 10) Last Admin: 12/18/22 15:54 Dose: 4 mg Naloxone HCl (Naloxone 0.4 Mg/Ml 1 Ml Vial) 0.2 mg IV Q2M PRN PRN Reason: Opioid Reversal Ondansetron HCl (Ondansetron 4 Mg/2 Ml Vial) 4 mg IVP Q8HR PRN PRN Reason: Nausea And Vomiting Last Admin: 12/17/22 10:58 Dose: 4 mg Polyethylene Glycol (Polyethylene Glycol 3350 17 Gm Powd.Pack) 17 gm PO DAILY [facility] Last Admin: 12/18/22 08:44 Dose: 17 gm Pregabalin (Pregabalin 100 Mg Cap) 100 mg PO TID [facility] Last Admin: 12/18/22 15:54 Dose: 100 mg Silver Sulfadiazine (Silver Sulfadiazine Cream 400 Gm 1 Applic Applic) 1 applic TOPICAL DAILY [facility]; Protocol Last Admin: 12/18/22 08:45 Dose: 1 applic Past medical history: Hyperlipidemia, hypertension, osteoarthritis, hypothyroid, uses wheelchair, peripheral neuropathy, chronic venous stasis, bilateral lower extremity lymphedema, urinary stress incontinence, lymph edema, umbilical hernia, hypothyroid. 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 Smoked for 20 years stopped in 1990. Alcohol rarely. Lives alone. Uses a wheelchair. Physical examination: VITAL SIGNS: 98.7, 69, 16, 141/75, 96% room air GENERAL: BMI 47.8, reclining, tired EYES: Pupils equal. Conjunctiva normall. HEENT: External appearance of nose and ears normal, oral cavity grossly normal. NECK: JVD not raised; masses not palpable. HEART: First and second heart sounds are normal; some edema. LUNGS: Respiratory rate normal; distant breath sounds. ABDOMEN: Soft, nontender, liver spleen not palpable, no masses palpable. PSYCH: Alert and oriented x3; mood and affect normal. MUSCULOSKELETAL:No Clubbing/cyanosis;muscles-grossly intact. venous insufficiency and lymphedema in the lower extremity. increased local temperature and redness in the upper thigh left leg medially. localized increased tenderness. Left leg posterior wound. EXTREMITY: Left foot, amputated big toe and third toe INVESTIGATIONS, reviewed in the clinical context: December 18: White count 5.1 hemoglobin 10.8 platelets with 94 potassium 3.9 creatinine 0.76 December 17: Obesity 4.3 hemoglobin 9.4 platelets 146 potassium 4 creatinine 0.69 Computed tomography scan left lower extremity [December 20]: Suspected abscess/fluid collection December 16: WBC [age]-year-old woman 9.5 platelets 134 potassium 3.8 creatinine 0.69 December 15: White count 5.8 hemoglobin 9.6 platelets 110 3137 potassium 3.9 creatinine 0.74 Procalcitonin 1.41 Cortizone-10 Ultrasound extremity nonvascular left colon subcutaneous edema without organizing fluid collection. Assessment and plan: -Acute severe left thigh cellulitis, causing sepsis: Slow to respond IV cefepime, IV daptomycin. Seen by Dr. Morris from vascular. Does not feel it to be an abscess. No I&D.. -Septic shock secondary to above patient was on pressors: corrected -Chronic left leg posterior nonhealing wound. Being followed outpatient and wound care center by Dr. Morris -chronic low back pain, likely from spinal stenosis/herniated disc with radiculopathy and down and affect.-likely from L1-L2 and L3-L4 nerve dist ribution. Pain medications as needed -History of Pyoderma gangrenosum -Hyperlipidemia Lipitor 10 mg daily at bedtime, -Essential hypertension, Currently off blood pressure medications -Primary osteoarthritis, pain medications when necessary -Hypothyroid, Synthroid 100 g daily -Normocytic anemia likely of chronic disease -Thrombocytopenia likely from infection -Chronic medical debility uses wheelchair -Idiopathic peripheral neuropathy Lyrica 100 mg 3 times a day -Chronic venous stasis -Bilateral lower extremity lymphedema -Chronic urinary stress incontinence -Chronic umbilical hernia -Morbid obesity BMI 47.8 Weight loss measures -Full code Discussed with patient. Continue current treatment plan. Follow-up with surgery and ID.
[2022-12-18] MEDS: ATORVASTATIN 10 MG TAB PO SCH (21:47)
[2022-12-18] MEDS: AMITRIPTYLINE HCL 10 MG TAB PO SCH (22:11)
[2022-12-19] MEDS: SODIUM CHLORIDE 0.9% 1,000 ML IV SCH ×2 (00:10→23:20)
[2022-12-19] MEDS: CEFEPIME 2 GM in SODIUM CHLORIDE 0.9% 100 ML IVPB SCH ×4 (00:10→23:19)
[2022-12-19] MEDS: LEVOTHYROXINE 100 MCG TAB PO SCH (06:43)
[2022-12-19] MEDS: FUROSEMIDE 10 MG/ML 2 ML VIAL IV SCH ×2 (08:18→21:28)
[2022-12-19] MEDS: ASCORBIC ACID 500 MG TAB PO SCH (08:18)
[2022-12-19] MEDS: HEPARIN SODIUM,PORCINE 5,000 UNIT/ML 1 ML VIAL SQ SCH ×2 (08:18→21:28)
[2022-12-19] MEDS: CHOLECALCIFEROL 25 MCG (1000 IU) TABLET PO SCH (08:18)
[2022-12-19] MEDS: FAMOTIDINE 20 MG/2 ML VIAL IV SCH ×2 (08:19→21:28)
[2022-12-19] MEDS: PREGABALIN 100 MG CAP PO SCH ×3 (08:19→21:28)
[2022-12-19] MEDS: polyethylene glycoL 3350 17 GM POWD.PACK PO SCH (08:19)
[2022-12-19] MEDS: SILVER sulfADIAZINE Cream 400 GM 1 APPLIC APPLIC TOPICAL SCH (08:20)
[2022-12-19] MEDS: NOREPINEPHRINE 4 MG in SODIUM CHLORIDE 0.9% 250 ML IV SCH (08:22)
[2022-12-19] MEDS: lisinopriL 20 MG TAB PO SCH ×2 (08:28→21:28)
--- NOTE | 2022-12-19 14:37 | P.PN ---
Subjective Progress Note Date: 12/19/22 This is a 67-year-old female patient with a known history of hyperlipidemia, hypertension, osteoarthritis, hypothyroidism, neuropathy of the bilateral feet with chronic venous stasis and previous cellulitis and osteomyelitis with multiple toes amputated on the left foot. Previous MRSA infection of the left foot as well. She follows at the wound Center. She was having increasing pain and redness, warmth of the left thigh posteriorly and came here to the emergency room for the same. He was initially admitted to the regular medical floor at approximately 8:00 last night she developed hypotension and rapid response team was called. She was subsequently transferred to the intensive care unit. She is seen today in consultation. She is awake and alert in no acute distress. She is on norepinephrine at 0.02 mcg/kg/m. She received 2 L of fluid resuscitation. She is initiated on cefepime. She received Flagyl 1. Previous wound cultures from June 2021 of the left foot were positive for MSSA and Enterobacter cloacae, enterococcus faecalis VRE. White count 12.2. Hemoglobin 10.3. Platelets 98,000. Sodium 139. Potassium 3.2. Bicarb 20. BUN 18. Creatinine 0.87. AST 90. ALT 37. Influenza screen negative. RSV screen negative. COVID-19 screen negative. Doppler of the left lower extremity was negative for DVT. X-ray reveals low lung volumes with generalized hazy appearance possible atelectasis versus pulmonary edema. The patient is seen today 12/14/2022 and follow-up in the intensive care unit. She is currently sitting up in bed. Awake and alert in no acute distress. Breathing easier today compared to yesterday. She is maintaining good O2 saturations in the mid 90s on 2 L nasal cannula. She has been off norepinephrine. Normal saline at 130 ML's per hour. She is in a +5 L balance since admission. Blood pressure stable. Doppler of the left lower extremity ru led out DVT. There is subcutaneous edema without organizing fluid collection. No evidence of abscess. Blood cultures reveal no growth to date. White count 8.0. Hemoglobin 10.1. Platelets 75,000. Sodium 140. Potassium 4.2. Bicarb 21. BUN 17. Creatinine 0.74. ProBNP 85. Pro-calcitonin 1.41. Cortisol level was 10. She remains on daptomycin and cefepime. On today's evaluation of a 2022, I'm seeing the patient for a follow-up. The patient was in the intensive care unit for sepsis related to cellulitis of the patient has bilateral lower extremity cellulitis and chronic venous stasis in the legs. She has also previous history of osteomyelitis on multiple to amputation of the left foot and she has had previous MRSA infection of the left foot as well. She has hypertension, hyperlipidemia, osteoarthritis, hypothyroidism and history of neuropathy. The patient is currently on a combination of daptomycin and IV cefepime. She is currently off pressors. She is on IV fluids which is running at a rate of 75 mL an hour of normal saline. His resting comfortably in bed and she is currently on room air oxygen. In terms of her blood work, the patient's white cell sounds at 5.8 with a hemoglobin of 9.6 and a platelet count of 110. Electrodes are within normal limits. Her serum cortisol was 10. Pro-calcitonin was 1.4 from 12/13/2022. The blood culture still negative. Ultrasound Doppler of the lower extremities as well as done on 12/13/2022 showed septic in his emphysema without any organizing fluid or collection. This cellulitis is in her left thigh is improved considerably. There is no significant erythema on today's evaluation. She also has wounds feet/ankles bilaterally on the lateral aspect. No active purulent drainage at this point in time and the patient is receiving wound care with [facility]. On 12/16/2022, I'm seeing the patient for a follow-up. She is still having significant amount of pain in her left thigh. There is obvious swelling in her medial thigh area and upon palpation, there could be an underlying collection. Ultrasound of the thigh was done and showed subcu in his emphysema and there was no abscess. Nevertheless, the area is quite tender and painful. Doppler of the left otic some additional is no evidence of any DVT. The patient remains on a combination of daptomycin and cefepime. She is on no pressors for now. The wound culture from the left lower extremity wound was gram-negative bacillus. The patient has had rest of the labs that show a white cell count of 5.6 with a hemoglobin of 9.5 and a platelet count of 134. BUN is 12 with a creatinine of 0.69 and a sodium levels of 139. She is on room air oxygen pH is quite uncomfortable because of her pain in the left thigh area. On today's evaluation of a 2022, the patient is still having pain in her left side. CAT scan of the left lower extremity was done and showed no evidence of any fracture or dislocation. There was skin thickening with fat stranding/edema most prominent within the left thigh. There is also fluid along the medial aspect of the distal left lower extremity soft tissues without organizing gram enhancement to suggest abscess. No subcutaneous emphysema. Meanwhile, the patient remains on a combination of daptomycin and cefepime. The blood work from today is showing a white cell count of 4.3, hemoglobin 9.4, BUN is 19 with a creatinine of 0.69 and a sodium level is at 136. Blood sugars at 155. The microbiology from the left lower extremity wound is showing presumptive staph aureus and gram-negative bacillus and the patient is appropriately covered with antibiotics. She is on room air oxygen. No respiratory distress. She is tolerating her diet. No significant morbidity and the patient is essentially in bed for now. IV fluids are in the form of KVO. No diuretics at this point in time. Fluid balance has been -750 over the past 24 hours. On today's evaluation of 12/18/2022, the patient is feeling better. They tenderness and the swelling in her left thigh is improved as the patient was started on some diuretics yesterday and she is already feeling better. She remains on daptomycin and cefepime and the wound culture from the left lower extremity has revealed infection with a combination of Pseudomonas and MRSA. She is otherwise doing well. Urine output is adequate.The fluid balance over the past 24 hours has been essentially negative at least 6 L and the patient currently has a white cell count of 5.1, hemoglobin of 10.8, the BUN is currently at 11 with a creatinine of 0.7 and his sodium level is at 137. She is resting comfortably in bed. No new complaints. The wounds were inspected. There is no active drainage at this point in time. We are applying Silvadene and honey 12/19/2022, the patient is doing well as the patient is being diuresed. The swelling in her left thigh is improving. She remains on broad-spectrum antibiotics with a combination of daptomycin and cefepime. The patient was treated with a combination of antibiotics for her left lower extremity infection that was positive for Pseudomonas and MRSA. She is on room air. He was transferred also the intensive care unit yesterday. She remains hemodynamically stable. No hypotension. No other significant events overnight. Mental status is adequate. No other complaints otherwise. The echoes of 5.1 with a hemoglobin of 10.8, BUN is 11 with a creatinine of 0.7. Objective - Vital Signs Vital signs: Vital Signs Temp 98.2 F 12/19/22 08:21 Pulse 63 12/19/22 08:21 Resp 18 12/19/22 08:21 BP 102/64 12/19/22 08:21 Pulse Ox 98 12/19/22 08:21 FiO2 Intake & Output 12/18/22 12/19/22 12/19/22 18:59 06:59 18:59 Intake Total 1310 Output Total 3300 1100 Balance -1989 Intake: IV 210 DAPTOmycin 400 mg In 50 Sodium Chloride 0.9% 50 ml @ 100 mls/hr IVPB Q24HR [facility] Rx#:[id number] Sodium Chloride 0.9% 1, 160 000 ml @ 10 mls/hr IV . Q24H [facility] Rx#:[id number] Intake, IV Titration 200 Amount Cefepime 2 gm In Sodium 200 Chloride 0.9% 100 ml @ 25 mls/hr IVPB Q8HR [facility] Rx# :[id number] Oral 900 Output: Urine 3300 1100 Straight 1100 Other: Voiding Method Indwelling Catheter Indwelling Catheter Indwelling Catheter # Bowel Movements 1 - Exam GENERAL EXAM: Alert, morbidly obese 67-year-old female, on RA nasal cannula, in no apparent distress. HEAD: Normocephalic. EYES: Normal reaction of pupils, equal size. NOSE: Clear with pink turbinates. THROAT: No erythema or exudates. NECK: No masses, no JVD. CHEST: No chest wall deformity. LUNGS: Equal air entry with no crackles, wheeze, rhonchi or dullness. CVS: S1 and S2 normal with no audible murmur, regular rhythm. ABDOMEN: No hepatosplenomegaly, normal bowel sounds, no guarding or rigidity. SPINE: No scoliosis or deformity SKIN: No rashes, wounds of various sizes on the lateral aspect of the ankle on the left than on the right bilaterally. No active drainage. 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 Not erythematous. She has chronic venous stasis and lower extremity is bilaterally. She has had previous amputations in her left foot. There is some swelling in the medial aspect of the left thigh and possibly some fluid collection. The area is quite tender. Overlying skin is nonerythematous. CENTRAL NERVOUS SYSTEM: No focal deficits, tone is normal in all 4 extremities. EXTREMITIES: Changes of chronic venous stasis. Previous amputations of the left upper second and third toe. Redness and warmth of the left thigh, improved. No clubbing, no cyanosis. Peripheral pulses are intact. - Labs CBC & Chem 7: 12/18/22 04:30 12/18/22 04:30 Labs: Microbiology - Last 24 Hours (Table) 12/13/22 11:40 Anaerobic Culture - Final Leg - Left Assessment and Plan Plan: Sepsis with secondary hypotension, recovered and the patient is currently hemodynamically stable on no pressors, improved and recovered Sepsis secondary to cellulitis of the left thigh, improved, nevertheless, the area still swollen and painful. Ultrasound the left thigh shows subcu in his emphysema and there is no abscess. CAT scan of the left lower extremity was also noted and there is no evidence of any abscess or fluid collection and is consistent with septic in his edema. Cellulitis of the left thigh, improving, possible collection/fluid/abscess although ultrasound the left lower extremity was negative. The patient has significant amount of thigh edema which is improving with diuresis Chronic wounds in her feet bilaterally, lateral last of the ankle, several wou nds on the left and one on the right of various sizes. The cultures are showing MRSA and Pseudomonas The patient is on daptomycin and cefepime. 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 No GI symptoms at this point in time. Former smoker Plan: Edema in the lower extremity in the thighs improving Continue IV Lasix for another 24 hours Fluid balance continues to be -1.9 L Electrolytes are stable, monitor the potassium level Obtain a CAT scan of the left lower extremity with contrast, this was completed yesterday and the results were noted, no abscess Continue cefepime, daptomycin Continue wound care with medi honey and dressing/nonadherent adherent dressing No pressors for now IV fluids to KVO Continue wound care Continue Synthroid Continue Lyrica Continue amitriptyline Currently on room air oxygen She is currently on a medical floor We will continue to follow
--- NOTE | 2022-12-19 16:12 | P.PN ---
Progress Note - Text Progress Note Date: 12/19/22 Chief Complaint: Pain upper posterior thigh 67-year-old female presents emergency Department complaining that she has pain in the upper posterior thigh since last night she states is getting more swollen and more tender. Patient states she thinks there is also warm. Patient denies any difficulty breathing shortness of breath or chest pain. Patient denies any palpitations. Patient denies any lightheadedness or dizziness. Patient denies any back pain. 59 female DF for evaluation of severe left upper thigh pain significant swelling and tenderness. Patient states his appointment with the pain is causing to be disabled debilitated if she cannot currently ambulate secondary to pain. Patient does live by herself White count 12.2. Hemoglobin 10.3. Platelets 98,000. Sodium 139. Potassium 3.2. Bicarb 20. BUN 18. Creatinine 0.87. AST 90. ALT 37. Influenza screen negative. RSV screen negative. COVID-19 screen negative. Doppler of the left lower extremity was negative for DVT. X-ray reveals low lung volumes with generalized hazy appearance possible atelectasis versus pulmonary edema. Patient is being admitted to hospital for IV antibiotic treatment and evaluation by ID -- Patient developed profound hypotension and was transferred to ICU through the night; has required pressor agents; patient has been continued on IV cefepime and daptomycin is admitted 12/14/2022 Patient is seen and evaluated in room at bedside; admitted with sepsis irelated to left lower extremity cellulitis especially significant swelling redness of the left medial thigh area need to rule out underlying abscess. wID recommending ultrasound of the left thigh to make sure no evidence of any fluid suspicious for abscess that may need to be drained. local wound culture from the wound to the left posterior leg as possible source of this infection. continue with the cefepime however I will add daptomycin to cover for the gram- positive while waiting for the culture to finalize. local wound care with a dry Aquacel silver dressing followed by Yaya wrap for compression change every 48 hour. 12/15/2022: I assumed care of the patient today. ICU. Reclining in bed. Eating well. On sinus rhythm. Slightly some pain and redness in the inside of the left upper thigh. No fever. On IV cefepime and daptomycin per ID. 12/16/2022: ICU. Computed tomography scan done today of the left lower extremity shows suspected abscess. Pending evaluation by Dr. Danielson from vascular for possible I&D. On IV daptomycin and cefepime. Pain at the affected site. Eating fair. 12/17/2022: ICU. Patient was seen by vascular Dr. Morris. He reviewed the CAT scan and ultrasound. Does not feel that is any abscess. Only cellulitis. No surgical intervention. Continue antibiotics. Patient's pain in the left thigh better. Tolerating diet. On IV cefepime and IV daptomycin. 12/18/2022: Tolerating diet. Pain better. Remains on IV cefepime. IV daptomycin. No fever. Patient does have a nonhealing wound to his left posterior leg area each patient follows with Dr. Morris of the wound care center. 12/19/2022: Patient remains on IV cefepime and daptomycin. Local pain is getting and tenderness getting better. Tolerating diet. No fever no chills. Discussed with nurse. Per PT OT patient can return home. Active Medications Acetaminophen/Butalbital/Caffeine (Butalb/Apap/Caff 50-325-40mg Tab) 2 each PO Q4HR PRN PRN Reason: Headache Last Admin: 12/17/22 16:43 Dose: 2 each Hydrocodone Bitart/Acetaminophen (Hydrocodone/Apap 10-325mg 1 Each Tab) 1 each PO Q6H PRN PRN Reason: Pain Last Admin: 12/18/22 10:49 Dose: 1 each Amitriptyline HCl (Amitriptyline Hcl 10 Mg Tab) 10 mg PO HS [facility]ENKAT Last Admin: 12/18/22 22:11 Dose: 10 mg Ascorbic Acid (Ascorbic Acid 500 Mg Tab) 1,000 mg PO DAILY VENKAT Last Admin: 12/19/22 08:18 Dose: 1,000 mg Atorvastatin Calcium (Atorvastatin 10 Mg Tab) 10 mg PO HS VENKAT Last Admin: 12/18/22 21:47 Dose: 10 mg Cholecalciferol (Cholecalciferol 25 Mcg (1000 Iu) Tablet) 50 mcg PO DAILY [facility]ENKAT Last Admin: 12/19/22 08:18 Dose: 50 mcg Famotidine (Famotidine 20 Mg/2 Ml Vial) 20 mg IV Q12HR [facility]ENKAT Last Admin: 12/19/22 08:19 Dose: 20 mg Furosemide (Furosemide 10 Mg/Ml 2 Ml Vial) 20 mg IV Q12HR [facility]AT Last Admin: 12/19/22 08:18 Dose: 20 mg Heparin Sodium (Porcine) (Heparin Sodium,Porcine 5,000 Unit/Ml 1 Ml Vial) 5,000 unit SQ Q12HR [facility] Last Admin: 12/19/22 08:18 Dose: 5,000 unit Sodium Chloride (Saline 0.9%) 1,000 mls @ 10 mls/hr IV .Q24H [facility] Last Admin: 12/19/22 00:10 Dose: Not Given Norepinephrine Bitartrate 4 mg (/ Sodium Chloride) 254 mls @ 14.517 mls/hr IV .[id number] [facility]; Protocol Last Admin: 12/19/22 08:22 Dose: Not Given Daptomycin 400 mg/ Sodium (Chloride) 50 mls @ 100 mls/hr IVPB Q24HR [facility]; Protocol Last Admin: 12/19/22 10:03 Dose: 100 mls/hr Cefepime HCl 2 gm/ Sodium (Chloride) 100 mls @ 25 mls/hr IVPB Q8HR [facility]; Protocol Last Admin: 12/19/22 15:21 Dose: 25 mls/hr Levothyroxine Sodium (Levothyroxine 100 Mcg Tab) 100 mcg PO 0630 [facility] Last Admin: 12/19/22 06:43 Dose: 100 mcg Lisinopril (Lisinopril 20 Mg Tab) 20 mg PO BID [facility] Last Admin: 12/19/22 08:28 Dose: Not Given Miscellaneous Information (Potassium Replacement Protocol 1 Each Misc) 1 each MISCELLANE DAILY PRN; Protocol PRN Reason: Per Protocol Miscellaneous Information (Potassium Replacement Protocol 1 Each Misc) 1 each MISCELLANE DAILY PRN; Protocol PRN Reason: Per Protocol Miscellaneous Information (Potassium Replacement Protocol 1 Each Misc) 1 each MISCELLANE DAILY PRN; Protocol PRN Reason: Per Protocol Miscellaneous Information (Potassium Replacement Protocol 1 Each Misc) 1 each MISCELLANE DAILY PRN; Protocol PRN Reason: Per Protocol Morphine Sulfate (Morphine Sulfate 4 Mg/Ml Syringe) 4 mg IV Q4HR PRN PRN Reason: Severe Pain (Scale 7 to 10) Last Admin: 12/18/22 15:54 Dose: 4 mg Naloxone HCl (Naloxone 0.4 Mg/Ml 1 Ml Vial) 0.2 mg IV Q2M PRN PRN Reason: Opioid Reversal Ondansetron HCl (Ondansetron 4 Mg/2 Ml Vial) 4 mg IVP Q8HR PRN PRN Reason: Nausea And Vomiting Last Admin: 12/17/22 10:58 Dose: 4 mg Polyethylene Glycol (Polyethylene Glycol 3350 17 Gm Powd.Pack) 17 gm PO DAILY [facility]KAT Last Admin: 12/19/22 08:19 Dose: Not Given Pregabalin (Pregabalin 100 Mg Cap) 100 mg PO TID [facility] Last Admin: 12/19/22 15:22 Dose: 100 mg Silver Sulfadiazine (Silver Sulfadiazine Cream 400 Gm 1 Applic Applic) 1 applic TOPICAL DAILY [facility]; Protocol Last Admin: 12/19/22 08:20 Dose: 1 applic Past medical history: Hyperlipidemia, hypertension, osteoarthritis, hypothyroid, uses wheelchair, peripheral neuropathy, chronic venous stasis, bilateral lower extremity lymphedema, urinary stress incontinence, lymph edema, umbilical hernia, hypothyroid. 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 Smoked for 20 years stopped in 1990. Alcohol rarely. Lives alone. Uses a wheelchair. Physical examination: VITAL SIGNS: 97.8, 68, 14, 10 9 x 65, 98% room air GENERAL: Tanning bed, comfortable EYES: Pupils equal. Conjunctiva normall. HEENT: External appearance of nose and ears normal, oral cavity grossly normal. NECK: JVD not raised; masses not palpable. HEART: First and second heart sounds are normal; some edema. LUNGS: Respiratory rate normal; distant breath sounds. ABDOMEN: Soft, nontender, liver spleen not palpable, no masses palpable. PSYCH: Alert and oriented x3; mood and affect normal. MUSCULOSKELETAL:No Clubbing/cyanosis;muscles-grossly intact. venous insufficiency and lymphedema in the lower extremity. increased local temperature and redness in the upper thigh left leg medially. localized increased tenderness. Left leg posterior wound. EXTREMITY: Left foot, amputated big toe and third toe INVESTIGATIONS, reviewed in the clinical context: Wound culture [December 13]: Pseudomonas aeruginosa, MRSA December 18: White count 5.1 hemoglobin 10.8 platelets with 94 potassium 3.9 creatinine 0.76 December 17: Obesity 4.3 hemoglobin 9.4 platelets 146 potassium 4 creatinine 0.69 Computed tomography scan left lower extremity [December 20]: Suspected abscess/fluid collection December 16: WBC [age]-year-old woman 9.5 platelets 134 potassium 3.8 creatinine 0.69 December 15: White count 5.8 hemoglobin 9.6 platelets 110 3137 potassium 3.9 c reatinine 0.74 Procalcitonin 1.41 Cortizone-10 Ultrasound extremity nonvascular left colon subcutaneous edema without organizing fluid collection. Assessment and plan: -Acute severe left thigh cellulitis, causing sepsis: From Pseudomonas aeruginosa and MRSA. Improving IV cefepime, IV daptomycin. Seen by Dr. Morris from vascular. Does not feel it to be an abscess. No I&D.. -Septic shock secondary to above patient was on pressors: corrected -Chronic left leg posterior nonhealing wound. Being followed outpatient and wound care center by Dr. Morris -chronic low back pain, likely from spinal stenosis/herniated disc with radiculopathy and down and affect.-likely from L1-L2 and L3-L4 nerve distribution. Pain medications as needed -History of Pyoderma gangrenosum -Hyperlipidemia Lipitor 10 mg daily at bedtime, -Essential hypertension, Currently off blood pressure medications -Primary osteoarthritis, pain medications when necessary -Hypothyroid, Synthroid 100 g daily -Normocytic anemia likely of chronic disease -Thrombocytopenia likely from infection -Chronic medical debility uses wheelchair -Idiopathic peripheral neuropathy Lyrica 100 mg 3 times a day -Chronic venous stasis -Bilateral lower extremity lymphedema -Chronic urinary stress incontinence -Chronic umbilical hernia -Morbid obesity BMI 47.8 Weight loss measures -Full code Continue current treatment with IV antibiotics. Discharge antibiotics per ID.
--- NOTE | 2022-12-19 17:16 | P.PN ---
Subjective Progress Note Date: 12/19/22 Principal diagnosis: Left leg wound and Cellulitis Patient is 67-year-old female with past medical his significant for hypertension hyperlipidemia diabetes mellitus history of diabetic foot infection requiring amputation of the toes currently did have a nonhealing wound to the left posterior leg area for the patient to follow with Dr. Danielson in the wound care center patient is presenting to [facility] ER for evaluation of left medial thigh pain swelling and tenderness, patient was noticed to be septic hypertension requiring admission to the ICU. On today's evaluation that is 12/18/2022, the patient continues to be afebrile, patient is breathing comfortably on room air , the patient pain to the left thigh area has decreased in intensity, no nausea no vomiting5 no abdominal pain and no diarrhea. Patient white count is 5.1 creatinine 0.76 as of 12/18/2022, no blood work today, local culture from the left leg wound is growing MRSA and Pseudomonas Objective - Vital Signs Vital signs: Vital Signs Temp 98.2 F 12/19/22 08:21 Pulse 63 12/19/22 08:21 Resp 18 12/19/22 08:21 BP 102/64 12/19/22 08:21 Pulse Ox 98 12/19/22 08:21 FiO2 Intake & Output 12/18/22 12/19/22 12/19/22 18:59 06:59 18:59 Intake Total 1310 Output Total 3300 1100 Balance -1989 -1099 Intake: IV 210 DAPTOmycin 400 mg In 50 Sodium Chloride 0.9% 50 ml @ 100 mls/hr IVPB Q24HR [facility] Rx#:[id number] Sodium Chloride 0.9% 1, 160 000 ml @ 10 mls/hr IV . Q24H [facility]ENKAT Rx#:[id number] Intake, IV Titration 200 Amount Cefepime 2 gm In Sodium 200 Chloride 0.9% 100 ml @ 25 mls/hr IVPB Q8HR [facility] Rx# :[id number] Oral 900 Output: Urine 3300 1100 Straight 1100 Other: Voiding Method Indwelling Catheter Indwelling Catheter Indwelling Catheter # Bowel Movements 1 - Exam GENERAL DESCRIPTION: Elderly female lying in bed in no distress RESPIRATORY SYSTEM: Unlabored breathing , decreased breath sounds at bases HEART: S1 S2 regular rate and rhythm ,no loud murmurs ABDOMEN: Soft , no tenderness EXTREMITIES left leg wound is currently dressed no drainage on the dressing - Labs CBC & Chem 7: 12/18/22 04:30 12/18/22 04:30 Labs: Microbiology - Last 24 Hours (Table) 12/13/22 11:40 Anaerobic Culture - Final Leg - Left Assessment and Plan (1) Cellulitis of left leg Current Visit: Yes Status: Acute Code(s): L03.116 - CELLULITIS OF LEFT LOWER LIMB SNOMED Code(s): 375212003 (2) Sepsis Current Visit: Yes Status: Acute Code(s): A41.9 - SEPSIS, UNSPECIFIED ORGANISM SNOMED Code(s): 01923106 Plan: Patient presented to hospital with sepsis in this patient with a fever tachycardia elevated white count source is left lower extremity cellulitis especially significant swelling redness of the left medial thigh area need to rule out underlying abscess. 2patient with multiple antibiotic allergies that would limit the number of antibiotics safe to use. 3ultrasound of the left medial thigh was negative for any abscess however the CT is now showing evidence of left thigh abscess for which vascular surgery has evaluated the patient not recommending I&D at this point 4local wound care to the left leg wound with Aquacel silver dressing change every 48 hour, nursing start changing the dressing this morning mention overall wound is looking better. 5patient left lower extremity culture currently growing MRSA and pseudomonas aeruginosa , patient to have ALLERGY to Levaquin 6- patient has shown some clinical improvement and we will continue with cefepime and daptomycin may need a short course of IV antibiotic on discharge because of her ALLERGIES Dictation was produced using [employer] dictation software. please excuse any grammatical, word or spelling errors. Time with Patient: Less than 30
[2022-12-19] MEDS: AMITRIPTYLINE HCL 10 MG TAB PO SCH (21:28)
[2022-12-19] MEDS: ATORVASTATIN 10 MG TAB PO SCH (21:28)
[2022-12-19] MEDS: MORPHINE SULFATE 4 MG/ML SYRINGE IV PRN (21:31)
[2022-12-19] MEDS: HYDROcodone/APAP 10-325MG 1 EACH TAB PO PRN (23:22)
[2022-12-20] MEDS: NOREPINEPHRINE 4 MG in SODIUM CHLORIDE 0.9% 250 ML IV SCH ×2 (00:51→20:34)
[2022-12-20] MEDS ORDERED: SODIUM CHLORIDE 0.9% 250 ML IV ONE (05:50)
[2022-12-20] MEDS: LEVOTHYROXINE 100 MCG TAB PO SCH (05:57)
[2022-12-20] MEDS: lisinopriL 20 MG TAB PO SCH ×2 (08:13→20:35)
[2022-12-20] MEDS: FUROSEMIDE 10 MG/ML 2 ML VIAL IV SCH (08:13)
[2022-12-20] MEDS: CHOLECALCIFEROL 25 MCG (1000 IU) TABLET PO SCH (08:19)
[2022-12-20] MEDS: PREGABALIN 100 MG CAP PO SCH ×3 (08:19→20:34)
[2022-12-20] MEDS: HEPARIN SODIUM,PORCINE 5,000 UNIT/ML 1 ML VIAL SQ SCH ×2 (08:20→20:33)
[2022-12-20] MEDS: FAMOTIDINE 20 MG/2 ML VIAL IV SCH ×2 (08:20→20:35)
[2022-12-20] MEDS: polyethylene glycoL 3350 17 GM POWD.PACK PO SCH (08:20)
[2022-12-20] MEDS: ASCORBIC ACID 500 MG TAB PO SCH (08:20)
[2022-12-20] MEDS: CEFEPIME 2 GM in SODIUM CHLORIDE 0.9% 100 ML IVPB SCH ×2 (09:11→16:44)
--- NOTE | 2022-12-20 14:24 | P.PN ---
Subjective Progress Note Date: 12/20/22 This is a 67-year-old female patient with a known history of hyperlipidemia, hypertension, osteoarthritis, hypothyroidism, neuropathy of the bilateral feet with chronic venous stasis and previous cellulitis and osteomyelitis with multiple toes amputated on the left foot. Previous MRSA infection of the left foot as well. She follows at the wound Center. She was having increasing pain and redness, warmth of the left thigh posteriorly and came here to the emergency room for the same. He was initially admitted to the regular medical floor at approximately 8:00 last night she developed hypotension and rapid response team was called. She was subsequently transferred to the intensive care unit. She is seen today in consultation. She is awake and alert in no acute distress. She is on norepinephrine at 0.02 mcg/kg/m. She received 2 L of fluid resuscitation. She is initiated on cefepime. She received Flagyl 1. Previous wound cultures from June 2021 of the left foot were positive for MSSA and Enterobacter cloacae, enterococcus faecalis VRE. White count 12.2. Hemoglobin 10.3. Platelets 98,000. Sodium 139. Potassium 3.2. Bicarb 20. BUN 18. Creatinine 0.87. AST 90. ALT 37. Influenza screen negative. RSV screen negative. COVID-19 screen negative. Doppler of the left lower extremity was negative for DVT. X-ray reveals low lung volumes with generalized hazy appearance possible atelectasis versus pulmonary edema. The patient is seen today 12/14/2022 and follow-up in the intensive care unit. She is currently sitting up in bed. Awake and alert in no acute distress. Breathing easier today compared to yesterday. She is maintaining good O2 saturations in the mid 90s on 2 L nasal cannula. She has been off norepinephrine. Normal saline at 130 ML's per hour. She is in a +5 L balance since admission. Blood pressure stable. Doppler of the left lower extremity ru led out DVT. There is subcutaneous edema without organizing fluid collection. No evidence of abscess. Blood cultures reveal no growth to date. White count 8.0. Hemoglobin 10.1. Platelets 75,000. Sodium 140. Potassium 4.2. Bicarb 21. BUN 17. Creatinine 0.74. ProBNP 85. Pro-calcitonin 1.41. Cortisol level was 10. She remains on daptomycin and cefepime. On today's evaluation of a 2022, I'm seeing the patient for a follow-up. The patient was in the intensive care unit for sepsis related to cellulitis of the patient has bilateral lower extremity cellulitis and chronic venous stasis in the legs. She has also previous history of osteomyelitis on multiple to amputation of the left foot and she has had previous MRSA infection of the left foot as well. She has hypertension, hyperlipidemia, osteoarthritis, hypothyroidism and history of neuropathy. The patient is currently on a combination of daptomycin and IV cefepime. She is currently off pressors. She is on IV fluids which is running at a rate of 75 mL an hour of normal saline. His resting comfortably in bed and she is currently on room air oxygen. In terms of her blood work, the patient's white cell sounds at 5.8 with a hemoglobin of 9.6 and a platelet count of 110. Electrodes are within normal limits. Her serum cortisol was 10. Pro-calcitonin was 1.4 from 12/13/2022. The blood culture still negative. Ultrasound Doppler of the lower extremities as well as done on 12/13/2022 showed septic in his emphysema without any organizing fluid or collection. This cellulitis is in her left thigh is improved considerably. There is no significant erythema on today's evaluation. She also has wounds feet/ankles bilaterally on the lateral aspect. No active purulent drainage at this point in time and the patient is receiving wound care with [facility]. On 12/16/2022, I'm seeing the patient for a follow-up. She is still having significant amount of pain in her left thigh. There is obvious swelling in her medial thigh area and upon palpation, there could be an underlying collection. Ultrasound of the thigh was done and showed subcu in his emphysema and there was no abscess. Nevertheless, the area is quite tender and painful. Doppler of the left otic some additional is no evidence of any DVT. The patient remains on a combination of daptomycin and cefepime. She is on no pressors for now. The wound culture from the left lower extremity wound was gram-negative bacillus. The patient has had rest of the labs that show a white cell count of 5.6 with a hemoglobin of 9.5 and a platelet count of 134. BUN is 12 with a creatinine of 0.69 and a sodium levels of 139. She is on room air oxygen pH is quite uncomfortable because of her pain in the left thigh area. On today's evaluation of a 2022, the patient is still having pain in her left side. CAT scan of the left lower extremity was done and showed no evidence of any fracture or dislocation. There was skin thickening with fat stranding/edema most prominent within the left thigh. There is also fluid along the medial aspect of the distal left lower extremity soft tissues without organizing gram enhancement to suggest abscess. No subcutaneous emphysema. Meanwhile, the patient remains on a combination of daptomycin and cefepime. The blood work from today is showing a white cell count of 4.3, hemoglobin 9.4, BUN is 19 with a creatinine of 0.69 and a sodium level is at 136. Blood sugars at 155. The microbiology from the left lower extremity wound is showing presumptive staph aureus and gram-negative bacillus and the patient is appropriately covered with antibiotics. She is on room air oxygen. No respiratory distress. She is tolerating her diet. No significant morbidity and the patient is essentially in bed for now. IV fluids are in the form of KVO. No diuretics at this point in time. Fluid balance has been -750 over the past 24 hours. On today's evaluation of 12/18/2022, the patient is feeling better. They tenderness and the swelling in her left thigh is improved as the patient was started on some diuretics yesterday and she is already feeling better. She remains on daptomycin and cefepime and the wound culture from the left lower extremity has revealed infection with a combination of Pseudomonas and MRSA. She is otherwise doing well. Urine output is adequate.The fluid balance over the past 24 hours has been essentially negative at least 6 L and the patient currently has a white cell count of 5.1, hemoglobin of 10.8, the BUN is currently at 11 with a creatinine of 0.7 and his sodium level is at 137. She is resting comfortably in bed. No new complaints. The wounds were inspected. There is no active drainage at this point in time. We are applying Silvadene and honey 12/19/2022, the patient is doing well as the patient is being diuresed. The swelling in her left thigh is improving. She remains on broad-spectrum antibiotics with a combination of daptomycin and cefepime. The patient was treated with a combination of antibiotics for her left lower extremity infection that was positive for Pseudomonas and MRSA. She is on room air. He was transferred also the intensive care unit yesterday. She remains hemodynamically stable. No hypotension. No other significant events overnight. Mental status is adequate. No other complaints otherwise. The echoes of 5.1 with a hemoglobin of 10.8, BUN is 11 with a creatinine of 0.7. 12/20/2022, the patient is doing well. She encounter some hypotension yesterday and the patient was given her blood pressure medication and diuretics. Her edema is improved and the patient was placed on oral Lasix today. The BUN is at 11 with creatinine of 0.7. Sodium level is at 137. White suppositive 5.1 with a hemoglobin of 10.8. Objective - Vital Signs Vital signs: Vital Signs Temp 97.8 F 12/20/22 07:05 Pulse 64 12/20/22 07:05 Resp 18 12/20/22 07:05 BP 98/62 12/20/22 07:05 Pulse Ox 94 L 12/20/22 08:11 FiO2 Intake & Output 12/19/22 12/20/22 12/20/22 18:59 06:59 18:59 Output Total 1100 800 Balance -1100 -800 Output: Urine 1100 800 Straight 1100 Other: Voiding Method Indwelling Catheter Indwelling Catheter # Bowel Movements 1 - Exam GENERAL EXAM: Alert, morbidly obese 67-year-old female, on RA nasal cannula, in no apparent distress. HEAD: Normocephalic. EYES: Normal reaction of pupils, equal size. NOSE: Clear with pink turbinates. THROAT: No erythema or exudates. NECK: No masses, no JVD. CHEST: No chest wall deformity. LUNGS: Equal air entry with no crackles, wheeze, rhonchi or dullness. CVS: S1 and S2 normal with no audible murmur, regular rhythm. ABDOMEN: No hepatosplenomegaly, normal bowel sounds, no guarding or rigidity. SPINE: No scoliosis or deformity SKIN: No rashes, wounds of various sizes on the lateral aspect of the ankle on the left than on the right bilaterally. No active drainage. Cellulitis left lower extremity thigh area is improving and the area is obviously naphthalene still operator. Not erythematous. She has chronic venous stasis and lower extremity is bilaterally. She has had previous amputations in her left foot. There is some swelling in the medial aspect of the left thigh and possibly some fluid collection. The area is quite tender. Overlying skin is nonerythematous. CENTRAL NERVOUS SYSTEM: No focal deficits, tone is normal in all 4 extremities. EXTREMITIES: Changes of chronic venous stasis. Previous amputations of the left upper second and third toe. Redness and warmth of the left thigh, improved. No clubbing, no cyanosis. Peripheral pulses are intact. - Labs CBC & Chem 7: 12/18/22 04:30 12/18/22 04:30 Assessment and Plan Plan: Sepsis with secondary hypotension, recovered and the patient is currently hemodynamically stable on no pressors, improved and recovered Sepsis secondary to cellulitis of the left thigh, improved, nevertheless, the area still swollen and painful. Ultrasound the left thigh shows subcu in his emphysema and there is no abscess. CAT scan of the left lower extremity was also noted and there is no evidence of any abscess or fluid collection and is c onsistent with septic in his edema. Cellulitis of the left thigh, improving, possible collection/fluid/abscess although ultrasound the left lower extremity was negative. The patient has significant amount of thigh edema which is improving with diuresis Chronic wounds in her feet bilaterally, lateral last of the ankle, several wounds on the left and one on the right of various sizes. The cultures are showing MRSA and Pseudomonas The patient is on daptomycin and cefepime. Leukocytosis secondary to above, improved Morbid obesity with a BMI of 48.5 kg/m Bilateral neuropathy of the lower extremities, nonambulatory, pivots to wheelchair Hypothyroidism Hyperlipidemia History of hypertension Osteoarthritis Previous history of MRSA, VRE of the left foot with subsequent amputations of t he left great, second and third toes History of depression Abnormal LFTs, probably related to sepsis, will monitor. No GI symptoms at this point in time. Former smoker Plan: Edema in the lower extremity in the thighs improving Stop IV Lasix Start the patient on oral Lasix Fluid balance continues to be negative and the edema is improved Electrolytes are stable, monitor the potassium level, all stable Obtain a CAT scan of the left lower extremity with contrast, this was completed yesterday and the results were noted, no abscess Continue cefepime, daptomycin Continue wound care with medi honey and dressing/nonadherent adherent dressing No pressors for now IV fluids to KVO Continue wound care Continue Synthroid Continue Lyrica Continue amitriptyline Currently on room air oxygen She is currently on a medical floor We will continue to follow
[2022-12-20] MEDS: SILVER sulfADIAZINE Cream 400 GM 1 APPLIC APPLIC TOPICAL SCH (14:43)
--- NOTE | 2022-12-20 17:02 | P.PN ---
Subjective Progress Note Date: 12/20/22 Principal diagnosis: Left leg wound and Cellulitis Patient is 67-year-old female with past medical his significant for hypertension hyperlipidemia diabetes mellitus history of diabetic foot infection requiring amputation of the toes currently did have a nonhealing wound to the left posterior leg area for the patient to follow with Dr. Danielson in the wound care center patient is presenting to [facility] ER for evaluation of left medial thigh pain swelling and tenderness, patient was noticed to be septic hypertension requiring admission to the ICU. On today's evaluation that is 12/20/2022, the patient denies any fever or any chills, patient is breathing comfortably on room air , the patient pain to the left thigh area has decreased in intensity, the patient denies having any nausea no vomiting5 no abdominal pain and no diarrhea. Patient white count is 5.1 creatinine 0.76 as of 12/18/2022, no blood work is done today, local culture from the left leg wound is growing MRSA and Pseudomonas Objective - Vital Signs Vital signs: Vital Signs Temp 97.7 F 12/20/22 14:10 Pulse 106 H 12/20/22 14:10 Resp 18 12/20/22 14:10 BP 104/68 12/20/22 14:10 Pulse Ox 99 12/20/22 14:10 FiO2 Intake & Output 12/19/22 12/20/22 12/20/22 18:59 06:59 18:59 Output Total 1100 800 Balance -1100 -800 Output: Urine 1100 800 Straight 1100 Other: Voiding Method Indwelling Catheter Indwelling Catheter # Bowel Movements 1 - Exam GENERAL DESCRIPTION: Elderly female lying in bed in no distress RESPIRATORY SYSTEM: Unlabored breathing , decreased breath sounds at bases HEART: S1 S2 regular rate and rhythm ,no loud murmurs ABDOMEN: Soft , no tenderness EXTREMITIES left leg wound is currently dressed no drainage on the dressing - Labs CBC & Chem 7: 12/18/22 04:30 12/18/22 04:30 Assessment and Plan (1) Cellulitis of left leg Current Visit: Yes Status: Acute Code(s): L03.116 - CELLULITIS OF LEFT LOWER LIMB SNOMED Code(s): 476475338 (2) Sepsis Current Visit: Yes Status: Acute Code(s): A41.9 - SEPSIS, UNSPECIFIED [facility] SNOMED Code(s): 82609830 Plan: Patient presented to hospital with sepsis in this patient with a fever tachycardia elevated white count source is left lower extremity cellulitis especially significant swelling redness of the left medial thigh area need to rule out underlying abscess. 2patient with multiple antibiotic allergies that would limit the number of antibiotics safe to use. 3ultrasound of the left medial thigh was negative for any abscess however the CT is now showing evidence of left thigh abscess for which vascular surgery has evaluated the patient not recommending I&D at this point 4local wound care to the left leg wound with Aquacel silver dressing change every 48 hour, nursing start changing the dressing this morning mention overall wound is looking better. 5patient left lower extremity culture currently growing MRSA and pseudomonas aeruginosa , patient to have ALLERGY to Levaquin 6- patient has shown some clinical improvement and we will continue with cefepime and daptomycin may need a short course of IV antibiotic on discharge because of her ALLERGIES and drug interaction with a likely oral antibiotic a ntibiotics of Cipro and Zyvox Dictation was produced using [employer] dictation software. please excuse any grammatical, word or spelling errors. Time with Patient: Less than 30
--- NOTE | 2022-12-20 17:22 | P.PN ---
Progress Note - Text Progress Note Date: 12/20/22 Chief Complaint: Pain upper posterior thigh 67-year-old female presents emergency Department complaining that she has pain in the upper posterior thigh since last night she states is getting more swollen and more tender. Patient states she thinks there is also warm. Patient denies any difficulty breathing shortness of breath or chest pain. Patient denies any palpitations. Patient denies any lightheadedness or dizziness. Patient denies any back pain. 59 female DF for evaluation of severe left upper thigh pain significant swelling and tenderness. Patient states his appointment with the pain is causing to be disabled debilitated if she cannot currently ambulate secondary to pain. Patient does live by herself White count 12.2. Hemoglobin 10.3. Platelets 98,000. Sodium 139. Potassium 3.2. Bicarb 20. BUN 18. Creatinine 0.87. AST 90. ALT 37. Influenza screen negative. RSV screen negative. COVID-19 screen negative. Doppler of the left lower extremity was negative for DVT. X-ray reveals low lung volumes with generalized hazy appearance possible atelectasis versus pulmonary edema. Patient is being admitted to hospital for IV antibiotic treatment and evaluation by ID -- Patient developed profound hypotension and was transferred to ICU through the night; has required pressor agents; patient has been continued on IV cefepime and daptomycin is admitted 12/14/2022 Patient is seen and evaluated in room at bedside; admitted with sepsis irelated to left lower extremity cellulitis especially significant swelling redness of the left medial thigh area need to rule out underlying abscess. wID recommending ultrasound of the left thigh to make sure no evidence of any fluid suspicious for abscess that may need to be drained. local wound culture from the wound to the left posterior leg as possible source of this infection. continue with the cefepime however I will add daptomycin to cover for the gram- positive while waiting for the culture to finalize. local wound care with a dry Aquacel silver dressing followed by Yaya wrap for compression change every 48 hour. 12/15/2022: I assumed care of the patient today. ICU. Reclining in bed. Eating well. On sinus rhythm. Slightly some pain and redness in the inside of the left upper thigh. No fever. On IV cefepime and daptomycin per ID. 12/16/2022: ICU. Computed tomography scan done today of the left lower extremity shows suspected abscess. Pending evaluation by Dr. Danielson from vascular for possible I&D. On IV daptomycin and cefepime. Pain at the affected site. Eating fair. 12/17/2022: ICU. Patient was seen by vascular Dr. Morris. He reviewed the CAT scan and ultrasound. Does not feel that is any abscess. Only cellulitis. No surgical intervention. Continue antibiotics. Patient's pain in the left thigh better. Tolerating diet. On IV cefepime and IV daptomycin. 12/18/2022: Tolerating diet. Pain better. Remains on IV cefepime. IV daptomycin. No fever. Patient does have a nonhealing wound to his left posterior leg area each patient follows with Dr. Morris of the wound care center. 12/19/2022: Patient remains on IV cefepime and daptomycin. Local pain is getting and tenderness getting better. Tolerating diet. No fever no chills. Discussed with nurse. Per PT OT patient can return home. 12/20/2022: Continues on IV antibiotics. Patient is getting better. Tolerating diet. Dr. Garcia is planning to discharge the patient home on oral antibiotics. Active Medications Acetaminophen/Butalbital/Caffeine (Butalb/Apap/Caff 50-325-40mg Tab) 2 each PO Q4HR PRN PRN Reason: Headache Last Admin: 12/17/22 16:43 Dose: 2 each Hydrocodone Bitart/Acetaminophen (Hydrocodone/Apap 10-325mg 1 Each Tab) 1 each PO Q6H PRN PRN Reason: Pain Last Admin: 12/19/22 23:22 Dose: 1 each Amitriptyline HCl (Amitriptyline Hcl 10 Mg Tab) 10 mg PO HS VENKAT Last Admin: 12/19/22 21:28 Dose: 10 mg Ascorbic Acid (Ascorbic Acid 500 Mg Tab) 1,000 mg PO DAILY VENKAT Last Admin: 12/20/22 08:20 Dose: 1,000 mg Atorvastatin Calcium (Atorvastatin 10 Mg Tab) 10 mg PO HS VENKAT Last Admin: 12/19/22 21:28 Dose: 10 mg Cholecalciferol (Cholecalciferol 25 Mcg (1000 Iu) Tablet) 50 mcg PO DAILY VENKAT Last Admin: 12/20/22 08:19 Dose: 50 mcg Famotidine (Famotidine 20 Mg/2 Ml Vial) 20 mg IV Q12HR [facility] Last Admin: 12/20/22 08:20 Dose: 20 mg Heparin Sodium (Porcine) (Heparin Sodium,Porcine 5,000 Unit/Ml 1 Ml Vial) 5,000 unit SQ Q12HR [facility] Last Admin: 12/20/22 08:20 Dose: 5,000 unit Sodium Chloride (Saline 0.9%) 1,000 mls @ 10 mls/hr IV .Q24H [facility] Last Admin: 12/19/22 23:20 Dose: 10 mls/hr Norepinephrine Bitartrate 4 mg (/ Sodium Chloride) 254 mls @ 14.517 mls/hr IV .[id number] [facility]; Protocol Last Admin: 12/20/22 00:51 Dose: Not Given Daptomycin 400 mg/ Sodium (Chloride) 50 mls @ 100 mls/hr IVPB Q24HR [facility]; Protocol Last Admin: 12/20/22 08:19 Dose: 100 mls/hr Cefepime HCl 2 gm/ Sodium (Chloride) 100 mls @ 25 mls/hr IVPB Q8HR [facility]; Protocol Last Admin: 12/20/22 16:44 Dose: 25 mls/hr Levothyroxine Sodium (Levothyroxine 100 Mcg Tab) 100 mcg PO 0630 [facility] Last Admin: 12/20/22 05:57 Dose: 100 mcg Lisinopril (Lisinopril 20 Mg Tab) 20 mg PO BID [facility] Last Admin: 12/20/22 08:13 Dose: Not Given Miscellaneous Information (Potassium Replacement Protocol 1 Each Misc) 1 each MISCELLANE DAILY PRN; Protocol PRN Reason: Per Protocol Miscellaneous Information (Potassium Replacement Protocol 1 Each Misc) 1 each MISCELLANE DAILY PRN; Protocol PRN Reason: Per Protocol Miscellaneous Information (Potassium Replacement Protocol 1 Each Misc) 1 each MISCELLANE DAILY PRN; Protocol PRN Reason: Per Protocol Miscellaneous Information (Potassium Replacement Protocol 1 Each Misc) 1 each MISCELLANE DAILY PRN; Protocol PRN Reason: Per Protocol Morphine Sulfate (Morphine Sulfate 4 Mg/Ml Syringe) 4 mg IV Q4HR PRN PRN Reason: Severe Pain (Scale 7 to 10) Last Admin: 12/19/22 21:31 Dose: 4 mg Naloxone HCl (Naloxone 0.4 Mg/Ml 1 Ml Vial) 0.2 mg IV Q2M PRN PRN Reason: Opioid Reversal Ondansetron HCl (Ondansetron 4 Mg/2 Ml Vial) 4 mg IVP Q8HR PRN PRN Reason: Nausea And Vomiting Last Admin: 12/17/22 10:58 Dose: 4 mg Polyethylene Glycol (Polyethylene Glycol 3350 17 Gm Powd.Pack) 17 gm PO DAILY [facility] Last Admin: 12/20/22 08:20 Dose: Not Given Pregabalin (Pregabalin 100 Mg Cap) 100 mg PO TID [facility] Last Admin: 12/20/22 16:45 Dose: 100 mg Silver Sulfadiazine (Silver Sulfadiazine Cream 400 Gm 1 Applic Applic) 1 applic TOPICAL DAILY [facility]; Protocol Last Admin: 12/20/22 14:43 Dose: 1 applic Past medical history: Hyperlipidemia, hypertension, osteoarthritis, hypothyroid, uses wheelchair, peripheral neuropathy, chronic venous stasis, bilateral lower extremity lymphedema, urinary stress incontinence, lymph edema, umbilical hernia, hypothyroid. 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 Smoked for 20 years stopped in 1990. Alcohol rarely. Lives alone. Uses a wheelchair. Physical examination: VITAL SIGNS: 97.7, 106, 18, 104/68, 99% room air GENERAL: Declining in bed, comfortable EYES: Pupils equal. Conjunctiva normall. HEENT: External appearance of nose and ears normal, oral cavity grossly normal. NECK: JVD not raised; masses not palpable. HEART: First and second heart sounds are normal; some edema. LUNGS: Respiratory rate normal; distant breath sounds. ABDOMEN: Soft, nontender, liver spleen not palpable, no masses palpable. PSYCH: Alert and oriented x3; mood and affect normal. MUSCULOSKELETAL:No Clubbing/cyanosis;muscles-grossly intact. venous insufficiency and lymphedema in the lower extremity. increased local temperature and redness in the upper thigh left leg medially. localized increased tenderness. Left leg posterior wound. EXTREMITY: Left foot, amputated big toe and third toe INVESTIGATIONS, reviewed in the clinical context: Wound culture [December 13]: Pseudomonas aeruginosa, MRSA December 18: White count 5.1 hemoglobin 10.8 platelets with 94 potassium 3.9 creatinine 0.76 December 17: Obesity 4.3 hemoglobin 9.4 platelets 146 potassium 4 creatinine 0.69 Computed tomography scan left lower extremity [December 20]: Suspected abscess/fluid collection December 16: WBC [age]-year-old woman 9.5 platelets 134 potassium 3.8 creatinine 0.69 December 15: White count 5.8 hemoglobin 9.6 platelets 110 3137 potassium 3.9 creatinine 0.74 Procalcitonin 1.41 Cortizone-10 Ultrasound extremity nonvascular left colon subcutaneous edema without organizing fluid collection. Assessment and plan: -Acute severe left thigh cellulitis, causing sepsis: From Pseudomonas aeruginosa and MRSA. Improving IV cefepime, IV daptomycin. Seen by Dr. Morris from vascular. Does not feel it to be an abscess. No I&D.. -Septic shock secondary to above patient was on pressors: corrected -Chronic left leg posterior nonhealing wound. Being followed outpatient and wound care center by Dr. Morris -chronic low back pain, likely from spinal stenosis/herniated disc with radiculopathy and down and affect.-likely from L1-L2 and L3-L4 nerve distribution. Pain medications as needed -History of Pyoderma gangrenosum -Hyperlipidemia Lipitor 10 mg daily at bedtime, -Essential hypertension, Currently off blood pressure medications -Primary osteoarthritis, pain medications when necessary -Hypothyroid, Synthroid 100 g daily -Normocytic anemia likely of chronic disease -Thrombocytopenia likely from infection -Chronic medical debility uses wheelchair -Idiopathic peripheral neuropathy Lyrica 100 mg 3 times a day -Chronic venous stasis -Bilateral lower extremity lymphedema -Chronic urinary stress incontinence -Chronic umbilical hernia -Morbid obesity BMI 47.8 Weight loss measures -Full code Discussed with patient. IV antibiotics. Planning for oral antibiotics for home per ID.
[2022-12-20] MEDS: ATORVASTATIN 10 MG TAB PO SCH (20:33)
[2022-12-20] MEDS: AMITRIPTYLINE HCL 10 MG TAB PO SCH (20:33)
[2022-12-20] MEDS: HYDROcodone/APAP 10-325MG 1 EACH TAB PO PRN (20:37)
[2022-12-21] MEDS: CEFEPIME 2 GM in SODIUM CHLORIDE 0.9% 100 ML IVPB SCH ×2 (00:27→08:54)
[2022-12-21] MEDS: SODIUM CHLORIDE 0.9% 1,000 ML IV SCH (05:49)
[2022-12-21] MEDS: LEVOTHYROXINE 100 MCG TAB PO SCH (06:33)
[2022-12-21] MEDS: PREGABALIN 100 MG CAP PO SCH ×3 (08:01→21:19)
[2022-12-21] MEDS: CHOLECALCIFEROL 25 MCG (1000 IU) TABLET PO SCH (08:01)
[2022-12-21] MEDS: ASCORBIC ACID 500 MG TAB PO SCH (08:01)
[2022-12-21] MEDS: HEPARIN SODIUM,PORCINE 5,000 UNIT/ML 1 ML VIAL SQ SCH ×2 (08:01→21:19)
[2022-12-21] MEDS: HYDROcodone/APAP 10-325MG 1 EACH TAB PO PRN (08:10)
[2022-12-21] MEDS: SILVER sulfADIAZINE Cream 400 GM 1 APPLIC APPLIC TOPICAL SCH (08:11)
[2022-12-21] MEDS: FAMOTIDINE 20 MG/2 ML VIAL IV SCH ×2 (08:12→21:20)
[2022-12-21] MEDS ORDERED: FUROSEMIDE 40 MG TAB PO SCH (09:00)
[2022-12-21] MEDS: lisinopriL 20 MG TAB PO SCH ×2 (09:26→21:20)
[2022-12-21] MEDS: polyethylene glycoL 3350 17 GM POWD.PACK PO SCH (09:26)
--- NOTE | 2022-12-21 12:28 | P.PN ---
Subjective Progress Note Date: 12/21/22 This is a 67-year-old female patient with a known history of hyperlipidemia, hypertension, osteoarthritis, hypothyroidism, neuropathy of the bilateral feet with chronic venous stasis and previous cellulitis and osteomyelitis with multiple toes amputated on the left foot. Previous MRSA infection of the left foot as well. She follows at the wound Center. She was having increasing pain and redness, warmth of the left thigh posteriorly and came here to the emergency room for the same. He was initially admitted to the regular medical floor at approximately 8:00 last night she developed hypotension and rapid response team was called. She was subsequently transferred to the intensive care unit. She is seen today in consultation. She is awake and alert in no acute distress. She is on norepinephrine at 0.02 mcg/kg/m. She received 2 L of fluid resuscitation. She is initiated on cefepime. She received Flagyl 1. Previous wound cultures from June 2021 of the left foot were positive for MSSA and Enterobacter cloacae, enterococcus faecalis VRE. White count 12.2. Hemoglobin 10.3. Platelets 98,000. Sodium 139. Potassium 3.2. Bicarb 20. BUN 18. Creatinine 0.87. AST 90. ALT 37. Influenza screen negative. RSV screen negative. COVID-19 screen negative. Doppler of the left lower extremity was negative for DVT. X-ray reveals low lung volumes with generalized hazy appearance possible atelectasis versus pulmonary edema. The patient is seen today 12/14/2022 and follow-up in the intensive care unit. She is currently sitting up in bed. Awake and alert in no acute distress. Breathing easier today compared to yesterday. She is maintaining good O2 saturations in the mid 90s on 2 L nasal cannula. She has been off norepinephrine. Normal saline at 130 ML's per hour. She is in a +5 L balance since admission. Blood pressure stable. Doppler of the left lower extremity ru led out DVT. There is subcutaneous edema without organizing fluid collection. No evidence of abscess. Blood cultures reveal no growth to date. White count 8.0. Hemoglobin 10.1. Platelets 75,000. Sodium 140. Potassium 4.2. Bicarb 21. BUN 17. Creatinine 0.74. ProBNP 85. Pro-calcitonin 1.41. Cortisol level was 10. She remains on daptomycin and cefepime. On today's evaluation of a 2022, I'm seeing the patient for a follow-up. The patient was in the intensive care unit for sepsis related to cellulitis of the patient has bilateral lower extremity cellulitis and chronic venous stasis in the legs. She has also previous history of osteomyelitis on multiple to amputation of the left foot and she has had previous MRSA infection of the left foot as well. She has hypertension, hyperlipidemia, osteoarthritis, hypothyroidism and history of neuropathy. The patient is currently on a combination of daptomycin and IV cefepime. She is currently off pressors. She is on IV fluids which is running at a rate of 75 mL an hour of normal saline. His resting comfortably in bed and she is currently on room air oxygen. In terms of her blood work, the patient's white cell sounds at 5.8 with a hemoglobin of 9.6 and a platelet count of 110. Electrodes are within normal limits. Her serum cortisol was 10. Pro-calcitonin was 1.4 from 12/13/2022. The blood culture still negative. Ultrasound Doppler of the lower extremities as well as done on 12/13/2022 showed septic in his emphysema without any organizing fluid or collection. This cellulitis is in her left thigh is improved considerably. There is no significant erythema on today's evaluation. She also has wounds feet/ankles bilaterally on the lateral aspect. No active purulent drainage at this point in time and the patient is receiving wound care with [facility]. On 12/16/2022, I'm seeing the patient for a follow-up. She is still having significant amount of pain in her left thigh. There is obvious swelling in her medial thigh area and upon palpation, there could be an underlying collection. Ultrasound of the thigh was done and showed subcu in his emphysema and there was no abscess. Nevertheless, the area is quite tender and painful. Doppler of the left otic some additional is no evidence of any DVT. The patient remains on a combination of daptomycin and cefepime. She is on no pressors for now. The wound culture from the left lower extremity wound was gram-negative bacillus. The patient has had rest of the labs that show a white cell count of 5.6 with a hemoglobin of 9.5 and a platelet count of 134. BUN is 12 with a creatinine of 0.69 and a sodium levels of 139. She is on room air oxygen pH is quite uncomfortable because of her pain in the left thigh area. On today's evaluation of a 2022, the patient is still having pain in her left side. CAT scan of the left lower extremity was done and showed no evidence of any fracture or dislocation. There was skin thickening with fat stranding/edema most prominent within the left thigh. There is also fluid along the medial aspect of the distal left lower extremity soft tissues without organizing gram enhancement to suggest abscess. No subcutaneous emphysema. Meanwhile, the patient remains on a combination of daptomycin and cefepime. The blood work from today is showing a white cell count of 4.3, hemoglobin 9.4, BUN is 19 with a creatinine of 0.69 and a sodium level is at 136. Blood sugars at 155. The microbiology from the left lower extremity wound is showing presumptive staph aureus and gram-negative bacillus and the patient is appropriately covered with antibiotics. She is on room air oxygen. No respiratory distress. She is tolerating her diet. No significant morbidity and the patient is essentially in bed for now. IV fluids are in the form of KVO. No diuretics at this point in time. Fluid balance has been -750 over the past 24 hours. On today's evaluation of 12/18/2022, the patient is feeling better. They tenderness and the swelling in her left thigh is improved as the patient was started on some diuretics yesterday and she is already feeling better. She remains on daptomycin and cefepime and the wound culture from the left lower extremity has revealed infection with a combination of Pseudomonas and MRSA. She is otherwise doing well. Urine output is adequate.The fluid balance over the past 24 hours has been essentially negative at least 6 L and the patient currently has a white cell count of 5.1, hemoglobin of 10.8, the BUN is currently at 11 with a creatinine of 0.7 and his sodium level is at 137. She is resting comfortably in bed. No new complaints. The wounds were inspected. There is no active drainage at this point in time. We are applying Silvadene and honey 12/19/2022, the patient is doing well as the patient is being diuresed. The swelling in her left thigh is improving. She remains on broad-spectrum antibiotics with a combination of daptomycin and cefepime. The patient was treated with a combination of antibiotics for her left lower extremity infection that was positive for Pseudomonas and MRSA. She is on room air. He was transferred also the intensive care unit yesterday. She remains hemodynamically stable. No hypotension. No other significant events overnight. Mental status is adequate. No other complaints otherwise. The echoes of 5.1 with a hemoglobin of 10.8, BUN is 11 with a creatinine of 0.7. 12/20/2022, the patient is doing well. She encounter some hypotension yesterday and the patient was given her blood pressure medication and diuretics. Her edema is improved and the patient was placed on oral Lasix today. The BUN is at 11 with creatinine of 0.7. Sodium level is at 137. White suppositive 5.1 with a hemoglobin of 10.8. 12/21/2022, the patient remains on antibiotic coverage with cefepime and daptomycin. No new complaints. The patient's creatinine is at 0.7 with a BUN of 11. echoes of 5.1. Blood pressure is soft with a systolic blood pressure of 98. She is on room air oxygen. Objective - Vital Signs Vital signs: Vital Signs Temp 97.8 F 12/21/22 07:35 Pulse 70 12/21/22 07:35 Resp 17 12/21/22 07:35 BP 91/55 12/21/22 07:35 Pulse Ox 93 L 12/21/22 11:05 FiO2 Intake & Output 12/20/22 12/21/22 12/21/22 18:59 06:59 18:59 Output Total 400 Balance -400 Output: Urine 400 Other: Voiding Method Indwelling Catheter # Voids 0 - Exam GENERAL EXAM: Alert, morbidly obese 67-year-old female, on RA nasal cannula, in no apparent distress. HEAD: Normocephalic. EYES: Normal reaction of pupils, equal size. NOSE: Clear with pink turbinates. THROAT: No erythema or exudates. NECK: No masses, no JVD. CHEST: No chest wall deformity. LUNGS: Equal air entry with no crackles, wheeze, rhonchi or dullness. CVS: S1 and S2 normal with no audible murmur, regular rhythm. ABDOMEN: No hepatosplenomegaly, normal bowel sounds, no guarding or rigidity. SPINE: No scoliosis or deformity SKIN: No rashes, wounds of various sizes on the lateral aspect of the ankle on the left than on the right bilaterally. No active drainage. 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 Not erythematous. She has chronic venous stasis and lower extremity is bilaterally. She has had previous amputations in her left foot. There is some swelling in the medial aspect of the left thigh and possibly some fluid collection. The area is quite tender. Overlying skin is nonerythematous. CENTRAL NERVOUS SYSTEM: No focal deficits, tone is normal in all 4 extremities. EXTREMITIES: Changes of chronic venous stasis. Previous amputations of the left upper second and third toe. Redness and warmth of the left thigh, improved. No clubbing, no cyanosis. Peripheral pulses are intact. - Labs CBC & Chem 7: 12/18/22 04:30 12/18/22 04:30 Assessment and Plan Plan: Sepsis with secondary hypotension, recovered and the patient is currently hemodynamically stable on no pressors, improved and recovered Sepsis secondary to cellulitis of the left thigh, improved, nevertheless, the area still swollen and painful. Ultrasound the left thigh shows subcu in his emphysema and there is no abscess. CAT scan of the left lower extremity was also noted and there is no evidence of any abscess or fluid collection and is consistent with septic in his edema. Cellulitis of the left thigh, improving, possible collection/fluid/abscess although ultrasound the left lower extremity was negative. The patient has significant amount of thigh edema which is improving with diuresis Chronic wounds in her feet bilaterally, lateral last of the ankle, several wounds on the left and one on the right of various sizes. The cultures are showing MRSA and Pseudomonas The patient is on daptomycin and cefepime. 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 No GI symptoms at this point in time. Former smoker Plan: Edema in the lower extremity in the thighs improving Oral Lasix with monitoring of blood pressure Fluid balance continues to be negative and the edema is improved Electrolytes are stable, monitor the potassium level, all stable Obtain a CAT scan of the left lower extremity with contrast, this was completed yesterday and the results were noted, no abscess Continue cefepime, daptomycin Continue wound care with medi honey and dressing/nonadherent adherent dressing No pressors for now IV fluids to KVO Continue wound care Continue Synthroid Continue Lyrica Continue amitriptyline Currently on room air oxygen She is currently on a medical floor We'll see as needed
[2022-12-21] MEDS: FUROSEMIDE 20 MG TAB PO SCH ×3 (13:18→21:19)
[2022-12-21] MEDS: NOREPINEPHRINE 4 MG in SODIUM CHLORIDE 0.9% 250 ML IV SCH (15:07)
[2022-12-21] MEDS: LINEZOLID 600 MG TAB PO SCH ×2 (15:12→23:22)
[2022-12-21] MEDS: CIPROFLOXACIN HCL 500 MG TAB PO SCH ×2 (15:12→23:22)
--- NOTE | 2022-12-21 15:53 | P.PN ---
Progress Note - Text Progress Note Date: 12/21/22 Chief Complaint: Pain upper posterior thigh 67-year-old female presents emergency Department complaining that she has pain in the upper posterior thigh since last night she states is getting more swollen and more tender. Patient states she thinks there is also warm. Patient denies any difficulty breathing shortness of breath or chest pain. Patient denies any palpitations. Patient denies any lightheadedness or dizziness. Patient denies any back pain. 59 female DF for evaluation of severe left upper thigh pain significant swelling and tenderness. Patient states his appointment with the pain is causing to be disabled debilitated if she cannot currently ambulate secondary to pain. Patient does live by herself White count 12.2. Hemoglobin 10.3. Platelets 98,000. Sodium 139. Potassium 3.2. Bicarb 20. BUN 18. Creatinine 0.87. AST 90. ALT 37. Influenza screen negative. RSV screen negative. COVID-19 screen negative. Doppler of the left lower extremity was negative for DVT. X-ray reveals low lung volumes with generalized hazy appearance possible atelectasis versus pulmonary edema. Patient is being admitted to hospital for IV antibiotic treatment and evaluation by ID -- Patient developed profound hypotension and was transferred to ICU through the night; has required pressor agents; patient has been continued on IV cefepime and daptomycin is admitted 12/14/2022 Patient is seen and evaluated in room at bedside; admitted with sepsis irelated to left lower extremity cellulitis especially significant swelling redness of the left medial thigh area need to rule out underlying abscess. wID recommending ultrasound of the left thigh to make sure no evidence of any fluid suspicious for abscess that may need to be drained. local wound culture from the wound to the left posterior leg as possible source of this infection. continue with the cefepime however I will add daptomycin to cover for the gram- positive while waiting for the culture to finalize. local wound care with a dry Aquacel silver dressing followed by Yaya wrap for compression change every 48 hour. 12/15/2022: I assumed care of the patient today. ICU. Reclining in bed. Eating well. On sinus rhythm. Slightly some pain and redness in the inside of the left upper thigh. No fever. On IV cefepime and daptomycin per ID. 12/16/2022: ICU. Computed tomography scan done today of the left lower extremity shows suspected abscess. Pending evaluation by Dr. Danielson from vascular for possible I&D. On IV daptomycin and cefepime. Pain at the affected site. Eating fair. 12/17/2022: ICU. Patient was seen by vascular Dr. Morris. He reviewed the CAT scan and ultrasound. Does not feel that is any abscess. Only cellulitis. No surgical intervention. Continue antibiotics. Patient's pain in the left thigh better. Tolerating diet. On IV cefepime and IV daptomycin. 12/18/2022: Tolerating diet. Pain better. Remains on IV cefepime. IV daptomycin. No fever. Patient does have a nonhealing wound to his left posterior leg area each patient follows with Dr. Morris of the wound care center. 12/19/2022: Patient remains on IV cefepime and daptomycin. Local pain is getting and tenderness getting better. Tolerating diet. No fever no chills. Discussed with nurse. Per PT OT patient can return home. 12/20/2022: Continues on IV antibiotics. Patient is getting better. Tolerating diet. Dr. Garcia is planning to discharge the patient home on oral antibiotics. 12/21/2022: Discussed with Dr. Garcia from ID. Patient is agreeable to stop her Elavil because of retraction antibiotic. Will be switched over to oral antibiotics Cipro. Watch for 24 hours. Hopefully discharge tomorrow. Active Medications Acetaminophen/Butalbital/Caffeine (Butalb/Apap/Caff 50-325-40mg Tab) 2 each PO Q4HR PRN PRN Reason: Headache Last Admin: 12/17/22 16:43 Dose: 2 each Hydrocodone Bitart/Acetaminophen (Hydrocodone/Apap 10-325mg 1 Each Tab) 1 each PO Q6H PRN PRN Reason: Pain Last Admin: 12/21/22 08:10 Dose: 1 each Ascorbic Acid (Ascorbic Acid 500 Mg Tab) 1,000 mg PO DAILY VENKAT Last Admin: 12/21/22 08:01 Dose: 1,000 mg Atorvastatin Calcium (Atorvastatin 10 Mg Tab) 10 mg PO HS VENKAT Last Admin: 12/20/22 20:33 Dose: 10 mg Cholecalciferol (Cholecalciferol 25 Mcg (1000 Iu) Tablet) 50 mcg PO DAILY VENKAT Last Admin: 12/21/22 08:01 Dose: 50 mcg Ciprofloxacin (Ciprofloxacin Hcl 500 Mg Tab) 500 mg PO BID [facility]; Protocol Last Admin: 12/21/22 15:12 Dose: 500 mg Famotidine (Famotidine 20 Mg/2 Ml Vial) 20 mg IV Q12HR [facility] Last Admin: 12/21/22 08:12 Dose: Not Given Furosemide (Furosemide 20 Mg Tab) 20 mg PO BID [facility] Last Admin: 12/21/22 13:33 Dose: 20 mg Heparin Sodium (Porcine) (Heparin Sodium,Porcine 5,000 Unit/Ml 1 Ml Vial) 5,000 unit SQ Q12HR [facility] Last Admin: 12/21/22 08:01 Dose: 5,000 unit Sodium Chloride (Saline 0.9%) 1,000 mls @ 10 mls/hr IV .Q24H [facility] Last Admin: 12/21/22 05:49 Dose: Not Given Norepinephrine Bitartrate 4 mg (/ Sodium Chloride) 254 mls @ 14.517 mls/hr IV .[id number] [facility]; Protocol Last Admin: 12/21/22 15:07 Dose: Not Given Levothyroxine Sodium (Levothyroxine 100 Mcg Tab) 100 mcg PO 0630 [facility] Last Admin: 12/21/22 06:33 Dose: 100 mcg Linezolid (Linezolid 600 Mg Tab) 600 mg PO Q12HR [facility]; Protocol Last Admin: 12/21/22 15:12 Dose: 600 mg Lisinopril (Lisinopril 20 Mg Tab) 20 mg PO BID [facility] Last Admin: 12/21/22 09:26 Dose: Not Given Miscellaneous Information (Potassium Replacement Protocol 1 Each Misc) 1 each MISCELLANE DAILY PRN; Protocol PRN Reason: Per Protocol Miscellaneous Information (Potassium Replacement Protocol 1 Each Misc) 1 each MISCELLANE DAILY PRN; Protocol PRN Reason: Per Protocol Miscellaneous Information (Potassium Replacement Protocol 1 Each Misc) 1 each MISCELLANE DAILY PRN; Protocol PRN Reason: Per Protocol Miscellaneous Information (Potassium Replacement Protocol 1 Each Misc) 1 each MISCELLANE DAILY PRN; Protocol PRN Reason: Per Protocol Morphine Sulfate (Morphine Sulfate 4 Mg/Ml Syringe) 4 mg IV Q4HR PRN PRN Reason: Severe Pain (Scale 7 to 10) Last Admin: 12/19/22 21:31 Dose: 4 mg Naloxone HCl (Naloxone 0.4 Mg/Ml 1 Ml Vial) 0.2 mg IV Q2M PRN PRN Reason: Opioid Reversal Polyethylene Glycol (Polyethylene Glycol 3350 17 Gm Powd.Pack) 17 gm PO DAILY [facility] Last Admin: 12/21/22 09:26 Dose: Not Given Pregabalin (Pregabalin 100 Mg Cap) 100 mg PO TID [facility] Last Admin: 12/21/22 15:12 Dose: 100 mg Silver Sulfadiazine (Silver Sulfadiazine Cream 400 Gm 1 Applic Applic) 1 applic TOPICAL DAILY [facility]; Protocol Last Admin: 12/21/22 08:11 Dose: 1 applic Past medical history: Hyperlipidemia, hypertension, osteoarthritis, hypothyroid, uses wheelchair, peripheral neuropathy, chronic venous stasis, bilateral lower extremity lymphedema, urinary stress incontinence, lymph edema, umbilical hernia, hypothyroid. 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 Smoked for 20 years stopped in 1990. Alcohol rarely. Lives alone. Uses a wheelchair. Physical examination: VITAL SIGNS: 98.1, 71, 17, 92/47, 95% room air GENERAL: Reclining, comfortable EYES: Pupils equal. Conjunctiva normall. HEENT: External appearance of nose and ears normal, oral cavity grossly normal. NECK: JVD not raised; masses not palpable. HEART: First and second heart sounds are normal; some edema. LUNGS: Respiratory rate normal; distant breath sounds. ABDOMEN: Soft, nontender, liver spleen not palpable, no masses palpable. PSYCH: Alert and oriented x3; mood and affect normal. MUSCULOSKELETAL:No Clubbing/cyanosis;muscles-grossly intact. venous insufficiency and lymphedema in the lower extremity. Decreased local temperature and redness in the upper thigh left leg medially. Decreased tenderness. Left leg posterior wound. EXTREMITY: Left foot, amputated big toe and third toe INVESTIGATIONS, reviewed in the clinical context: Wound culture [December 13]: Pseudomonas aeruginosa, MRSA December 18: White count 5.1 hemoglobin 10.8 platelets with 94 potassium 3.9 creatinine 0.76 December 17: Obesity 4.3 hemoglobin 9.4 platelets 146 potassium 4 creatinine 0.69 Computed tomography scan left lower extremity [December 20]: Suspected abscess/fluid collection December 16: WBC [age]-year-old woman 9.5 platelets 134 potassium 3.8 creatinine 0 .69 December 15: White count 5.8 hemoglobin 9.6 platelets 110 3137 potassium 3.9 creatinine 0.74 Procalcitonin 1.41 Cortizone-10 Ultrasound extremity nonvascular left colon subcutaneous edema without or ganizing fluid collection. Assessment and plan: -Acute severe left thigh cellulitis, causing sepsis: From Pseudomonas aeruginosa and MRSA. Improving IV cefepime, IV daptomycin. Seen by Dr. Morris from vascular. Does not feel it to be an abscess. No I&D.. Today changed over to oral ciprofloxacin. -Septic shock secondary to above patient was on pressors: corrected -Chronic left leg posterior nonhealing wound. Being followed outpatient and wound care center by Dr. Morris -chronic low back pain, likely from spinal stenosis/herniated disc with radiculopathy and down and affect.-likely from L1-L2 and L3-L4 nerve distribution. Pain medications as needed -History of Pyoderma gangrenosum -Hyperlipidemia Lipitor 10 mg daily at bedtime, -Essential hypertension, Currently off blood pressure medications -Primary osteoarthritis, pain medications when necessary -Hypothyroid, Synthroid 100 g daily -Normocytic anemia likely of chronic disease -Thrombocytopenia likely from infection -Chronic medical debility uses wheelchair -Idiopathic peripheral neuropathy Lyrica 100 mg 3 times a day -Chronic venous stasis -Bilateral lower extremity lymphedema -Chronic urinary stress incontinence -Chronic umbilical hernia -Morbid obesity BMI 47.8 Weight loss measures -Full code IV antibiotics changed to oral ciprofloxacin. Amitriptyline being discontinued because of interaction. Discussed with ID and the patient. Plan for discharge tomorrow.
--- NOTE | 2022-12-21 16:06 | P.PN ---
Subjective Progress Note Date: 12/21/22 Principal diagnosis: Left leg wound and Cellulitis Patient is 67-year-old female with past medical his significant for hypertension hyperlipidemia diabetes mellitus history of diabetic foot infection requiring amputation of the toes currently did have a nonhealing wound to the left posterior leg area for the patient to follow with Dr. Danielson in the wound care center patient is presenting to [facility] ER for evaluation of left medial thigh pain swelling and tenderness, patient was noticed to be septic hypertension requiring admission to the ICU. On today's evaluation that is 12/21/2022 patient remains to be afebrile, the patient is breathing comfortably on room air denies any chest pain shortness of breath or cough no nausea vomiting no abdominal pain complaining of pain to the left thigh area however has decreased in intensity. Patient did have a white count of 5.1 hemoglobin is 10.8 creatinine 0.76 blood cultures negative local culture with Pseudomonas and MRSA Objective - Vital Signs Vital signs: Vital Signs Temp 98.1 F 12/21/22 13:45 Pulse 71 12/21/22 13:45 Resp 17 12/21/22 13:45 BP 92/47 12/21/22 13:45 Pulse Ox 95 12/21/22 13:45 FiO2 Intake & Output 12/20/22 12/21/22 12/21/22 18:59 06:59 18:59 Output Total 400 Balance -400 Output: Urine 400 Other: Voiding Method Indwelling Catheter # Voids 0 - Exam GENERAL DESCRIPTION: Elderly female lying in bed in no distress RESPIRATORY SYSTEM: Unlabored breathing , decreased breath sounds at bases HEART: S1 S2 regular rate and rhythm ,no loud murmurs ABDOMEN: Soft , no tenderness EXTREMITIES left leg wound is currently dressed no drainage on the dressing - Labs CBC & Chem 7: 12/18/22 04:30 12/18/22 04:30 Assessment and Plan (1) Cellulitis of left leg Current Visit: Yes Status: Acute Code(s): L03.116 - CELLULITIS OF LEFT LOWER LIMB SNOMED Code(s): 351774500 (2) Sepsis Current Visit: Yes Status: Acute Code(s): A41.9 - SEPSIS, UNSPECIFIED ORGANISM SNOMED Code(s): 21732207 Plan: Patient presented to hospital with sepsis in this patient with a fever tachycardia elevated white count source is left lower extremity cellulitis especially significant swelling redness of the left medial thigh area need to rule out underlying abscess. 2patient with multiple antibiotic allergies that would limit the number of antibiotics safe to use. 3ultrasound of the left medial thigh was negative for any abscess however the CT is now showing evidence of left thigh abscess for which vascular surgery has evaluated the patient not recommending I&D at this point 4local wound care to the left leg wound with Aquacel silver dressing change every 48 hour, nursing start changing the dressing this morning mention overall wound is looking better. 5patient left lower extremity culture currently growing MRSA and pseudomonas aeruginosa , patient to have ALLERGY to Levaquin 6- Patient did have improvement to the left thigh cellulitis and has been reluctant to go with IV antibiotics patient mention she has taken Cipro without any problem and a level can be discontinued in that case we can start the patient on oral Cipro and Zyvox which the patient tolerates can continue for about 10 days on discharge Discussed in detail with the admitting physician on the floor and the patient question concern answeredx Dictation was produced using [employer] dictation software. please excuse any gram matical, word or spelling errors. Time with Patient: Less than 30
[2022-12-21] MEDS: ATORVASTATIN 10 MG TAB PO SCH (21:19)
[2022-12-22] MEDS: SODIUM CHLORIDE 0.9% 1,000 ML IV SCH (02:25)
[2022-12-22] MEDS: HYDROcodone/APAP 10-325MG 1 EACH TAB PO PRN (03:40)
[2022-12-22] MEDS: LEVOTHYROXINE 100 MCG TAB PO SCH (06:20)
[2022-12-22] MEDS: NOREPINEPHRINE 4 MG in SODIUM CHLORIDE 0.9% 250 ML IV SCH (07:14)
[2022-12-22 08:04] VITALS: TEMP 97.6
[2022-12-22] MEDS: ASCORBIC ACID 500 MG TAB PO SCH (08:59)
[2022-12-22] MEDS: CIPROFLOXACIN HCL 500 MG TAB PO SCH (09:00)
[2022-12-22] MEDS: CHOLECALCIFEROL 25 MCG (1000 IU) TABLET PO SCH (09:00)
[2022-12-22] MEDS: LINEZOLID 600 MG TAB PO SCH (09:01)
[2022-12-22] MEDS: FUROSEMIDE 20 MG TAB PO SCH (09:01)
[2022-12-22] MEDS: HEPARIN SODIUM,PORCINE 5,000 UNIT/ML 1 ML VIAL SQ SCH (09:01)
[2022-12-22] MEDS: FAMOTIDINE 20 MG/2 ML VIAL IV SCH (09:01)
[2022-12-22] MEDS: polyethylene glycoL 3350 17 GM POWD.PACK PO SCH (09:02)
[2022-12-22] MEDS: lisinopriL 20 MG TAB PO SCH (09:02)
[2022-12-22] MEDS: PREGABALIN 100 MG CAP PO SCH ×2 (09:02→16:15)
[2022-12-22] MEDS: SILVER sulfADIAZINE Cream 400 GM 1 APPLIC APPLIC TOPICAL SCH (09:02)
--- NOTE | 2022-12-22 12:33 | P.PN ---
Subjective Progress Note Date: 12/22/22 This is a 67-year-old female patient with a known history of hyperlipidemia, hypertension, osteoarthritis, hypothyroidism, neuropathy of the bilateral feet with chronic venous stasis and previous cellulitis and osteomyelitis with multiple toes amputated on the left foot. Previous MRSA infection of the left foot as well. She follows at the wound Center. She was having increasing pain and redness, warmth of the left thigh posteriorly and came here to the emergency room for the same. He was initially admitted to the regular medical floor at approximately 8:00 last night she developed hypotension and rapid response team was called. She was subsequently transferred to the intensive care unit. She is seen today in consultation. She is awake and alert in no acute distress. She is on norepinephrine at 0.02 mcg/kg/m. She received 2 L of fluid resuscitation. She is initiated on cefepime. She received Flagyl 1. Previous wound cultures from June 2021 of the left foot were positive for MSSA and Enterobacter cloacae, enterococcus faecalis VRE. White count 12.2. Hemoglobin 10.3. Platelets 98,000. Sodium 139. Potassium 3.2. Bicarb 20. BUN 18. Creatinine 0.87. AST 90. ALT 37. Influenza screen negative. RSV screen negative. COVID-19 screen negative. Doppler of the left lower extremity was negative for DVT. X-ray reveals low lung volumes with generalized hazy appearance possible atelectasis versus pulmonary edema. The patient is seen today 12/14/2022 and follow-up in the intensive care unit. She is currently sitting up in bed. Awake and alert in no acute distress. B reathing easier today compared to yesterday. She is maintaining good O2 saturations in the mid 90s on 2 L nasal cannula. She has been off norepinephrine. Normal saline at 130 ML's per hour. She is in a +5 L balance since admission. Blood pressure stable. Doppler of the left lower extremity ruled out DVT. There is subcutaneous edema without organizing fluid collection. No evidence of abscess. Blood cultures reveal no growth to date. White count 8.0. Hemoglobin 10.1. Platelets 75,000. Sodium 140. Potassium 4.2. Bicarb 21. BUN 17. Creatinine 0.74. ProBNP 85. Pro-calcitonin 1.41. Cortisol level was 10. She remains on daptomycin and cefepime. The patient is seen today 12/22/2022 in follow-up on the regular medical floor. She is currently sitting up in bed. Awake and alert in no acute distress. Left wound culture was positive for pseudomonas aeruginosa and methicillin-resistant Staphylococcus aureus. She remains on Zyvox and Ciprofloxacin. Yaya wraps to the bilateral lower extremities. Heparin for DVT prophylaxis. Objective - Vital Signs Vital signs: Vital Signs Temp 97.6 F 12/22/22 08:00 Pulse 64 12/22/22 08:00 Resp 17 12/22/22 08:00 BP 112/57 12/22/22 08:00 Pulse Ox 95 12/22/22 08:00 FiO2 Intake & Output 12/21/22 12/22/22 12/22/22 18:59 06:59 18:59 Output Total 900 1200 Balance -900 -1200 Output: Urine 900 1200 Other: Voiding Method Indwelling Catheter # Voids 1 # Bowel Movements 1 - Exam GENERAL EXAM: Alert, morbidly obese 67-year-old female, on room air, in no apparent distress. HEAD: Normocephalic. EYES: Normal reaction of pupils, equal size. NOSE: Clear with pink turbinates. THROAT: No erythema or exudates. NECK: No masses, no JVD. CHEST: No chest wall deformity. LUNGS: Equal air entry with no crackles, wheeze, rhonchi or dullness. CVS: S1 and S2 normal with no audible murmur, regular rhythm. ABDOMEN: No hepatosplenomegaly, normal bowel sounds, no guarding or rigidity. SPINE: No scoliosis or deformity SKIN: No rashes CENTRAL NERVOUS SYSTEM: No focal deficits, tone is normal in all 4 extremities. EXTREMITIES: Changes of chronic venous stasis. Previous amputations of the left upper second and third toe. Redness and warmth of the left thigh. No clubbing, no cyanosis. Peripheral pulses are intact. 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 Number of minutes spent on the visit: 10.
[2022-12-22 14:03] VITALS: BP 91/60; PULSE 70; RESP 19
[2022-12-22 14:27] VITALS: BMI 46.0
--- NOTE | 2022-12-22 20:42 | P.DS ---
Providers Date of admission: 12/15/22 06:57 Expected date of discharge: 12/22/22 Attending physician: Tal Magallanes Consults: 12/12/22 20:53 Consult Physician Urgent Consulting Provider: Maynor Perkins Consult Reason/Comments: hypotension Do you want consulting provider notified?: Yes 12/12/22 20:54 Consult Physician Urgent Consulting Provider: Thea Hernandez Consult Reason/Comments: cellulitis/OM Do you want consulting provider notified?: Yes 12/15/22 18:38 Consult Physician Routine Consulting Provider: Luis E Danielson Consult Reason/Comments: Left leg wound Do you want consulting provider notified?: Yes Primary care physician: [facility] Course: Chief Complaint: Pain upper posterior thigh 67-year-old female presents emergency Department complaining that she has pain in the upper posterior thigh since last night she states is getting more swollen and more tender. Patient states she thinks there is also warm. Patient denies any difficulty breathing shortness of breath or chest pain. Patient denies any palpitations. Patient denies any lightheadedness or dizziness. Patient denies any back pain. 59 female DF for evaluation of severe left upper thigh pain significant swelling and tenderness. Patient states his appointment with the pain is causing to be disabled debilitated if she cannot currently ambulate secondary to pain. Patient does live by herself White count 12.2. Hemoglobin 10.3. Platelets 98,000. Sodium 139. Potassium 3.2. Bicarb 20. BUN 18. Creatinine 0.87. AST 90. ALT 37. Influenza screen negative. RSV screen negative. COVID-19 screen negative. Doppler of the left lower extremity was negative for DVT. X-ray reveals low lung volumes with generalized hazy appearance possible atelectasis versus pulmonary edema. Patient is being admitted to hospital for IV antibiotic treatment and evaluation by ID -- Patient developed profound hypotension and was transferred to ICU through the night; has required pressor agents; patient has been continued on IV cefepime and daptomycin is admitted 12/14/2022 Patient is seen and evaluated in room at bedside; admitted with sepsis irelated to left lower extremity cellulitis especially significant swelling redness of the left medial thigh area need to rule out underlying abscess. wID recommending ultrasound of the left thigh to make sure no evidence of any fluid suspicious for abscess that may need to be drained. local wound culture from the wound to the left posterior leg as possible source of this infection. continue with the cefepime however I will add daptomycin to cover for the gram- positive while waiting for the culture to finalize. local wound care with a dry Aquacel silver dressing followed by Yaya wrap for compression change every 48 hour. 12/15/2022: I assumed care of the patient today. ICU. Reclining in bed. Eating well. On sinus rhythm. Slightly some pain and redness in the inside of the left upper thigh. No fever. On IV cefepime and daptomycin per ID. 12/16/2022: ICU. Computed tomography scan done today of the left lower extremity shows suspected abscess. Pending evaluation by Dr. Danielson from vascular for possible I&D. On IV daptomycin and cefepime. Pain at the affected site. Eating fair. 12/17/2022: ICU. Patient was seen by vascular Dr. Morris. He reviewed the CAT scan and ultrasound. Does not feel that is any abscess. Only cellulitis. No surgical intervention. Continue antibiotics. Patient's pain in the left thigh better. Tolerating diet. On IV cefepime and IV daptomycin. 12/18/2022: Tolerating diet. Pain better. Remains on IV cefepime. IV daptomycin. No fever. Patient does have a nonhealing wound to his left posterior leg area each patient follows with Dr. Morris of the wound care center. 12/19/2022: Patient remains on IV cefepime and daptomycin. Local pain is getting and tenderness getting better. Tolerating diet. No fever no chills. Discussed with nurse. Per PT OT patient can return home. 12/20/2022: Continues on IV antibiotics. Patient is getting better. Tolerating diet. Dr. Garcia is planning to discharge the patient home on oral antibiotics. 12/21/2022: Discussed with Dr. Garcia from ID. Patient is agreeable to stop her Elavil because of retraction antibiotic. Will be switched over to oral antibiotics Cipro. Watch for 24 hours. Hopefully discharge tomorrow. December 22: Patient doing well. No new symptoms. Discharged on Zyvox and Cipro per ID. Topical Silvadene cream. Patient follows with Dr. Morris at the wound care center. Questions answered Discussion and discharge planning more than 35 minutes Past medical history: Hyperlipidemia, hypertension, osteoarthritis, hypothyroid, uses wheelchair, peripheral neuropathy, chronic venous stasis, bilateral lower extremity lymphedema, urinary stress incontinence, lymph edema, umbilical hernia, hypothyroid. 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 Smoked for 20 years stopped in 1990. Alcohol rarely. Lives alone. Uses a wheelchair. Physical examination: VITAL SIGNS: 97.6, 70, 1619, 91/60, 95% room air GENERAL: Reclining, comfortable EYES: Pupils equal. Conjunctiva normall. HEENT: External appearance of nose and ears normal, oral cavity grossly normal. NECK: JVD not raised; masses not palpable. HEART: First and second heart sounds are normal; some edema. LUNGS: Respiratory rate normal; distant breath sounds. ABDOMEN: Soft, nontender, liver spleen not palpable, no masses palpable. PSYCH: Alert and oriented x3; mood and affect normal. MUSCULOSKELETAL:No Clubbing/cyanosis;muscles-grossly intact. venous insufficiency and lymphedema in the lower extremity. Decreased local temperature and redness in the upper thigh left leg medially. Decreased tenderness. Left leg posterior wound. EXTREMITY: Left foot, amputated big toe and third toe INVESTIGATIONS, reviewed in the clinical context: Wound culture [December 13]: Pseudomonas aeruginosa, MRSA December 18: White count 5.1 hemoglobin 10.8 platelets with 94 potassium 3.9 creatinine 0.76 December 17: Obesity 4.3 hemoglobin 9.4 platelets 146 potassium 4 creatinine 0.69 Computed tomography scan left lower extremity [December 20]: Suspected abscess/fluid collection December 16: WBC [age]-year-old woman 9.5 platelets 134 potassium 3.8 creatinine 0.69 December 15: White count 5.8 hemoglobin 9.6 platelets 110 3137 potassium 3.9 creatinine 0.74 Procalcitonin 1.41 Cortizone-10 Ultrasound extremity nonvascular left colon subcutaneous edema without organizing fluid collection. Assessment and plan: -Acute severe left thigh cellulitis, causing sepsis: From Pseudomonas aeruginosa and MRSA. Improving IV cefepime, IV daptomycin. Seen by Dr. Morris from vascular. Does not feel it to be an abscess. No I&D.. Discharged on: Zyvox 600 mg every 12 for 10 days Ciprofloxacin 5 mg every 12 for 10 days -Septic shock secondary to above patient was on pressors: corrected -Chronic left leg posterior nonhealing wound. Being followed outpatient and wound care center by Dr. Morris -chronic low back pain, likely from spinal stenosis/herniated disc with radiculopathy and down and affect.-likely from L1-L2 and L3-L4 nerve distribution. Pain medications as needed -History of Pyoderma gangrenosum -Hyperlipidemia Lipitor 10 mg daily at bedtime, -Essential hypertension, Medications discontinued blood pressure running in the lower site. -Primary osteoarthritis, pain medications when necessary -Hypothyroid, Synthroid 100 g daily -Normocytic anemia likely of chronic disease -Thrombocytopenia likely from infection: Recovered -Chronic medical debility uses wheelchair -Idiopathic peripheral neuropathy Lyrica 100 mg 3 times a day -Chronic venous stasis -Bilateral lower extremity lymphedema -Chronic urinary stress incontinence -Chronic umbilical hernia -Morbid obesity BMI 47.8 Weight loss measures -Full code Disposition: Home Plan - Discharge Summary New Discharge Prescriptions: New Furosemide [Lasix] 20 mg PO DAILY tab SILVER sulfADIAZINE Cream [Silvadene 1% Cream] 1 applic TOPICAL DAILY each Linezolid [Zyvox] 600 mg PO Q12H #20 tab Ciprofloxacin HCl [Cipro] 500 mg PO Q12HR 10 Days #20 tab Continue Levothyroxine Sodium [Synthroid] 100 mcg PO DAILY Atorvastatin Calcium [Lipitor] 10 mg PO HS Pregabalin [Lyrica] 100 mg PO TID #9 cap Ascorbic Acid [Vitamin C] 1,000 mg PO DAILY Vitamin B Complex 1 cap PO DAILY Cholecalciferol [Vitamin D3 (25 Mcg = 1000 Iu)] 50 mcg PO DAILY HYDROcodone/APAP 10-325MG [Brockton 10-325] 1 tab PO Q6H PRN #12 tab PRN Reason: Pain Changed lisinopriL [Zestril] 20 mg PO HS PRN #0 PRN Reason: BP >110 Discontinued Amitriptyline HCl [Elavil] 10 mg PO HS Discharge Medication List Levothyroxine Sodium [Synthroid] 100 mcg PO DAILY 08/29/13 [History] Atorvastatin Calcium [Lipitor] 10 mg PO HS 10/06/18 [History] Cholecalciferol [Vitamin D3 (25 Mcg = 1000 Iu)] 50 mcg PO DAILY 07/23/21 [History] HYDROcodone/APAP 10-325MG [B[place]ton 10-325] 1 tab PO Q6H PRN #12 tab 07/29/21 [Rx] Pregabalin [Lyrica] 100 mg PO TID #9 cap 07/29/21 [Rx] Ascorbic Acid [Vitamin C] 1,000 mg PO DAILY 12/12/22 [History] Vitamin B Complex 1 cap PO DAILY 12/12/22 [History] Ciprofloxacin HCl [Cipro] 500 mg PO Q12HR 10 Days #20 tab 12/22/22 [Rx] Furosemide [Lasix] 20 mg PO DAILY tab 12/22/22 [Rx] Linezolid [Zyvox] 600 mg PO Q12H #20 tab 12/22/22 [Rx] SILVER sulfADIAZINE Cream [Silvadene 1% Cream] 1 applic TOPICAL DAILY each 12/22/22 [Rx] lisinopriL [Zestril] 20 mg PO HS PRN #0 12/22/22 [Rx] Follow up Appointment(s)/Referral(s): Adonis Mcfarlane DO [Primary Care Provider] - 1-2 days (Office stated they will call patient with follow-up apppointment time and date.) [facility], [NON-STAFF] - As Needed Luis E Danielson MD [STAFF PHYSICIAN] - 12/31/22 11:00 am Activity/Diet/Wound Care/Special Instructions: Follow with Dr. Morris at wound care center. Discharge antibiotics per Discharge Disposition: HOME SELF-CARE
== END 2022-12-22 16:51 | disposition home or self-care (01) | DRG 871 ==
LOC: EC 13:25 → 5NMEDONC 16:59 → 2SICU 21:10 → OBSVTOIN 12-15 06:57 → 4SSUR 12-18 20:26
PROVIDERS: ADMIT Hospitalist; ATTEND Hospitalist
PROC: 3E043XZ Introduction of Vasopressor into Central Vein, Percutaneous Approach (ICD-10-PCS; principal; 2022-12-15)
DX: A41.02 Sepsis due to Methicillin resistant Staphylococcus aureus (principal); R65.21 Severe sepsis with septic shock; L03.115 Cellulitis of right lower limb; L03.116 Cellulitis of left lower limb; L88 Pyoderma gangrenosum; N17.9 Acute kidney failure, unspecified; R17 Unspecified jaundice; Z68.42 Body mass index [BMI] 45.0-49.9, adult; A41.52 Sepsis due to Pseudomonas; D69.59 Other secondary thrombocytopenia; E03.9 Hypothyroidism, unspecified; E11.40 Type 2 diabetes mellitus with diabetic neuropathy, unspecified; D63.8 Anemia in other chronic diseases classified elsewhere; E66.01 Morbid (severe) obesity due to excess calories; E78.5 Hyperlipidemia, unspecified; E87.6 Hypokalemia; F32.A Depression, unspecified; G60.9 Hereditary and idiopathic neuropathy, unspecified; G89.29 Other chronic pain; I10 Essential (primary) hypertension; I87.8 Other specified disorders of veins; J43.9 Emphysema, unspecified; R62.7 Adult failure to thrive; N39.3 Stress incontinence (female) (male); K42.9 Umbilical hernia without obstruction or gangrene; D32.0 Benign neoplasm of cerebral meninges; Z89.412 Acquired absence of left great toe; Z89.422 Acquired absence of other left toe(s); M19.91 Primary osteoarthritis, unspecified site; M48.061 Spinal stenosis, lumbar region without neurogenic claudication; M54.16 Radiculopathy, lumbar region; Z20.822 Contact with and (suspected) exposure to COVID-19; Z79.890 Hormone replacement therapy; Z79.899 Other long term (current) drug therapy; Z82.49 Family history of ischemic heart disease and other diseases of the circulatory system; Z87.891 Personal history of nicotine dependence; Z87.440 Personal history of urinary (tract) infections; Z71.3 Dietary counseling and surveillance; Z86.14 Personal history of Methicillin resistant Staphylococcus aureus infection; Z88.1 Allergy status to other antibiotic agents; Z88.2 Allergy status to sulfonamides; Z60.2 Problems related to living alone
CPT/HCPCS: 36415; 71045; 80048; 80053; 81003; 82533; 83605; 83880; 84145; 84439; 84443; 85025; 85027; 85652; 86140; 87040; 87070; 87075; 87077; 87186; 87205; 87636; 93005; 94760; 96365; 96375; 99285

== ENCOUNTER → 2023-09-03 | Outpatient (CLI) | payer MEDICARE ==
--- NOTE | 2023-09-06 15:06 | MM ---
Reason for Exam: Screening (asymptomatic). Last screening mammogram was performed 12 month(s) ago. Patient History: Menarche at age 11. First Full-Term at age 26. Postmenopausal. Risk Values: Chhaya 5 year model risk: 1.9%. NCI Lifetime model risk: 5.9%. Prior Study Comparison: 09/01/2022 Bilateral MG 3D screening mammo w/cad, [facility]. Tissue Density: There are scattered areas of fibroglandular density. Findings: Analyzed By CAD. There is no suspicious group of microcalcifications or new suspicious mass in either breast. Overall Assessment: Negative, BI-RAD 1 Management: Screening Mammogram of both breasts in 1 year. . Patient should continue monthly self-breast exams. A clinical breast exam by your physician is recommended on an annual basis. This exam should not preclude additional follow-up of suspicious palpable abnormalities. Note on Chhaya scores and lifetime risk: 1. A Chhaya score greater than 3% is considered moderate risk. If this is the case, consider specialist referral to assess eligibility for a risk reducing agent. 2. If overall lifetime risk for the development of breast cancer is 20% or higher, the patient may qualify for future screening with alternating mammogram and breast MRI. Electronically signed and approved by: Gustavo Schuster M.D. Radiologist
== END | disposition home or self-care (01) ==
LOC: RADMAMWWP 10:55
PROVIDERS: ATTEND Family Medicine
DX: Z12.31 Encounter for screening mammogram for malignant neoplasm of breast (principal); Z78.0 Asymptomatic menopausal state
CPT/HCPCS: 77063; 77067

== ENCOUNTER → 2023-09-08 | Outpatient (CLI) | payer MEDICARE ==
--- NOTE | 2023-09-09 11:37 | MR ---
EXAMINATION TYPE: MR brain wo/w con DATE OF EXAM: 09/08/2023 3:21 PM CLINICAL INDICATION:Female, 68 years old with history of M17.12 UNILATERAL PRIMARY OSTEOARTHRITIS, LE FT KNE, Meningioma diagnosed in 2021 COMPARISON: 02/04/2022 TECHNIQUE: Multi planar, multi sequence imaging was performed through the brain including: T1, T2, In version recovery, susceptibility weighted imaging and gradient echo imaging and Diffusion weighted im aging. The patient was then given intravenous contrast and multi planar, T1 fat-saturation images wer e obtained. IV Contrast: 13 cc Gadavist FINDINGS: Similar partially enhancing lesion at the cerebellar pontine angle on the right in the ante rior aspect of the posterior cranial fossa measuring 21 x 14 x 15 mm. There is enhancement of this le laura with some central sparing posteriorly representing calcification. No new lesions are identified. The espinoza-white junctions, ventricular system, basal cisterns appear unremarkable. Diffusion-weighted imaging shows no evidence of restricted diffusion to suggest acute/subacute infarct. Intracranial ar terial flow voids are maintained. Midline structures show no abnormality. Scattered foci of high T2 s ignal intensity are seen within the periventricular white matter. The susceptibility weighted images do not reveal any evidence for micro-hemorrhage. After administration of gadolinium, no abnormal intr a-axial enhancement is seen. The bone marrow signal is within normal limits. Paranasal sinuses and mastoid air cells: No significant paranasal sinus disease. Visualized orbits: Orbital contents are intact. IMPRESSION: 1. Stable extra axial/dural based lesion in the right posterior cranial fossa anteriorly most compati ble with meningioma. 2. No evidence of intra-axial intracranial mass, acute/subacute infarct, or abnormal enhancement. 3. Nonspecific white matter changes, likely related to small vessel ischemic disease.
--- NOTE | 2023-09-09 12:20 | MR ---
EXAMINATION TYPE: MR knee LT wo con DATE OF EXAM: 09/08/2023 COMPARISON: None. HISTORY: Left knee outer pain, locking, and swelling 89 years, Osteoarthritis TECHNIQUE: Multiplanar, multisequence images of the knee is performed without IV contrast. FINDINGS: Exam is suboptimal secondary to patient's large body habitus as well as motion artifact deg radation MEDIAL MENISCUS: Medial extrusion of medial meniscus on coronal images with abnormal signal Truncated appearance to the entire medial meniscus likely reflecting large tear. LATERAL MENISCUS: Truncated appearance to majority of lateral meniscus also likely reflecting large t ear. CRUCIATE LIGAMENTS: The posterior cruciate ligament shows disruption on sagittal images less well shivani reciated on coronal images. Normal-appearing anterior cruciate ligament not identified. COLLATERAL LIGAMENTS: The medial collateral ligament and lateral collateral ligament complex are inta ct. Medial bulging of the medial collateral ligament. EXTENSOR MECHANISM: Visualized quadriceps and patellar tendons are intact. EFFUSION: Moderate size suprapatellar joint effusion. POPLITEAL CYST: No popliteal/diggs cyst. TRICOMPARTMENT SPACES: Severe tricompartment joint space loss and spurring. Lateral shifting of the p roximal tibia relative to the distal femur is noted. CARTILAGE: Severe tricompartment articular cartilaginous loss. BONE MARROW SIGNAL: Some artifact, no obvious edema. OTHER: Moderate to severe diffuse subcutaneous edema greatest posteriorly. IMPRESSION: 1. Suboptimal study with advanced tricompartment degenerative changes. Probable lateral and medial fu ll-thickness meniscal tears. Moderate size suprapatellar joint effusion. Likely chronic ACL tear.
== END | disposition home or self-care (01) ==
LOC: RADMRIMAIN 12:53
PROVIDERS: ATTEND Family Medicine
DX: G93.89 Other specified disorders of brain (principal); M17.12 Unilateral primary osteoarthritis, left knee; D32.0 Benign neoplasm of cerebral meninges
CPT/HCPCS: 70553; 73721; A9585

== ENCOUNTER 2024-06-23 00:02 | Inpatient (IN) | payer MEDICARE ==
--- NOTE | 2024-06-23 01:20 | ED ---
Skin/Abscess/FB HPI - General Source: EMS Mode of arrival: EMS Limitations: no limitations <Ta Gaona - Last Filed: 06/25/24 17:07> <Estrada Oliveira - Last Filed: 06/28/24 04:57> - General Chief complaint: Skin/Abscess/Foreign Body Stated complaint: Left leg infection Time Seen by Provider: 06/23/24 00:54 - History of Present Illness Initial comments: 68-year-old female presenting with chief complaint of redness pain and swelling to the left lower extremity. This been worsening for the past few days. Aurelia ivey does have a known open wound to the leg, however due to the swelling it is difficult for her to see the area. She has been having nausea and chills for the past few days. She is also having increased tenderness. States that she has an upcoming appointment with the wound care center. No known fever. (Ta Gaona) - Related Data Home Medications Medication Instructions Recorded Confirmed Levothyroxine Sodium [Synthroid] 100 mcg PO DAILY 08/29/13 06/23/24 Atorvastatin Calcium [Lipitor] 10 mg PO HS 10/06/18 06/23/24 Amitriptyline HCl [Elavil] 10 mg PO HS 06/23/24 06/23/24 Previous Rx's Medication Instructions Recorded HYDROcodone/APAP 10-325MG [[place] 1 tab PO Q6H PRN #12 tab 07/29/21 10-325] Pregabalin [Lyrica] 100 mg PO TID #9 cap 07/29/21 Cephalexin [Keflex] 500 mg PO Q6HR 7 Days #28 cap 06/27/24 Pantoprazole [Protonix] 40 mg PO AC-BRKFST #30 tab 06/27/24 Allergies Allergy/AdvReac Type Severity Reaction Status Date / Time Sulfa (Sulfonamide Allergy Rash/Hives Verified 06/23/24 07:43 Antibiotics) vancomycin Allergy Rash/Hives Verified 06/23/24 07:43 levofloxacin [From Levaquin] AdvReac Itching Verified 06/23/24 07:43 Review of Systems ROS Other: All systems not noted in ROS Statement are negative. <Ta Gaona - Last Filed: 06/25/24 17:07> ROS Other: All systems not noted in ROS Statement are negative. <Estrada Oliveira - Last Filed: 06/28/24 04:57> ROS Statement: Those systems with pertinent positive or pertinent negative responses have been documented in the HPI. 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 History of Any Multi-Drug Resistant Organisms: MRSA, VRE, VRE Date of last positivie culture/infection: 05/20/21-VRE; 04/07/20 MRSA MDRO Source:: Left Foot-VRE, Left Foot and Leg MRSA Past Surgical History: Section, Cholecystectomy, Orthopedic Surgery, Tubal Ligation Additional Past Surgical History / Comment(s): L leg I&D, bilateral knee arthroscopies, L great toe and 2nd/3rd toe amp d/t nonhealing wounds, PICCS, midlines, D&Cs Past Anesthesia/Blood Transfusion Reactions: Previous Problems w/ Anesthesia Additional Past Anesthesia/Blood Transfusion Reaction / Comment(s): Slow to come out of it Past Psychological History: Depression, Depression Smoking Status: Former smoker Past Alcohol Use History: None Reported Past Drug Use History: None Reported - Past Family History Father Family Medical History: Cancer, Coronary Artery Disease (CAD), Myocardial Infarction ([place]), Prostate Disorder Additional Family Medical History / Comment(s): Prostate CA. Father in a MVA at the age of 80yrs. Mother Family Medical History: Cancer, CVA/TIA, Hyperlipidemia Additional Family Medical History / Comment(s): Lung CA-left lobe removed. <Ta Gaona - Last Filed: 06/25/24 17:07> General Exam Limitations: no limitations General appearance: alert, in no apparent distress Head exam: Present: atraumatic, normocephalic, normal inspection Eye exam: Present: normal appearance, EOMI Neck exam: Present: normal inspection. Absent: meningismus Respiratory exam: Absent: respiratory distress Cardiovascular Exam: Present: regular rate Neurological exam: Present: alert, oriented X3 Psychiatric exam: Present: normal affect, normal mood Skin exam: Present: warm, dry, erythema. Absent: intact <Ta Gaona - Last Filed: 06/25/24 17:07> Course Vital Signs 06/23/24 06/23/24 06/23/24 00:08 04:40 06:59 Temperature 97.4 F L 97.4 F L 97.5 F L Pulse Rate 82 60 68 Pulse Rate [ Pulse Oximetery ] Respiratory 18 18 18 Rate Blood Pressure 136/82 106/69 101/65 Blood Pressure [Right Arm] O2 Sat by Pulse 99 98 98 Oximetry 06/23/24 06/23/24 06/23/24 10:51 12:53 16:00 Temperature 98.0 F 98.1 F Pulse Rate 70 71 72 Pulse Rate [ Pulse Oximetery ] Respiratory 18 20 18 Rate Blood Pressure 111/60 122/72 122/68 Blood Pressure [Right Arm] O2 Sat by Pulse 95 98 97 Oximetry 06/23/24 06/23/24 19:36 20:00 Temperature 97.4 F L 96.1 F L Pulse Rate 61 Pulse Rate [ 74 Pulse Oximetery ] Respiratory 17 Rate Blood Pressure 106/60 Blood Pressure 119/55 [Right Arm] O2 Sat by Pulse 97 96 Oximetry Medical Decision Making - Lab Data Result diagrams: 06/23/24 01:42 06/23/24 01:42 <Ta Gaona - Last Filed: 06/25/24 17:07> - Lab Data Result diagrams: 06/26/24 04:27 06/26/24 04:27 <Estrada Oliveira - Last Filed: 06/28/24 04:57> - Medical Decision Making Was pt. sent in by a medical professional or institution (, PA, KETTLE TENDER, urgent care, hospital, or [place] health care facility...) When possible be specific @ -No Did you speak to anyone other than the patient for history (EMS, parent, family, police, friend...)? What history was obtained from this source @ -No Did you review nursing and triage notes (agree or disagree)? Why? @ -I reviewed and agree with nursing and triage notes Were old charts reviewed (outside hosp., previous admission, EMS record, old EKG, old radiological studies, urgent care reports/EKG's, [place] health care facility records)? Report findings @ -No old charts were reviewed Differential Diagnosis (chest pain, altered mental status, abdominal pain women, abdominal pain men, vaginal bleeding, weakness, fever, dyspnea, syncope, headache, dizziness, GI bleed, back pain, seizure, CVA, palpatations, mental health, musculoskeletal)? @ -Differential includes cellulitis, allergic reaction, DVT, not an all- inclusive list EKG interpreted by me (3pts min.). @ -As above X-rays interpreted by me (1pt min.). @ -None done CT interpreted by me (1pt min.). @ -None done U/S interpreted by me (1pt. min.). @ -None done What testing was considered but not performed or refused? (CT, X-rays, U/S, labs)? Why? @ -None What meds were considered but not given or refused? Why? @ -None Did you discuss the management of the patient with other professionals (professionals i.e. , PA, KETTLE TENDER, lab, RT, psych nurse, social welfare research worker, curator herbarium, teacher, first aid officer, nurse case manager)? Give summary @ -My attending spoke with the [facility] provider on-call excepted admission Was smoking cessation discussed for >3mins.? @ -No Was critical care preformed (if so, how long)? @ -No Were there social determinants of health that impacted care today? How? (Homelessness, low income, unemployed, alcoholism, drug addiction, transp ortation, low edu. Level, literacy, decrease access to med. care, long-term, rehab)? @ -No Was there de-escalation of care discussed even if they declined (Discuss DNR or withdrawal of care, Hospice)? DNR status @ -No What co-morbidities impacted this encounter? (DM, HTN, Smoking, COPD, CAD, Cancer, CVA, ARF, Chemo, Hep., AIDS, mental health diagnosis, sleep apnea, morbid obesity)? @ -None Was patient admitted / discharged? Hospital course, mention meds given and route, prescriptions, significant lab abnormalities, going to OR and other pertinent info. @ -68-year-old female presenting with chief complaint of increased redness tenderness and swelling to the left lower extremity. Patient does have an open wound to the area. Presentation consistent with cellulitis patient will require IV antibiotics. She is given a dose of Unasyn, she has a listed allergy to vancomycin. Infectious disease is consulted. Patient will be admitted and she is agreeable with this plan. I discussed this case with my attending Dr. Oliveira Undiagnosed new problem with uncertain prognosis? @ -No Drug Therapy requiring intensive monitoring for toxicity (Heparin, Nitro, Insulin, Cardizem)? @ -No Were any procedures done? @ -No Diagnosis/symptom? @ -Cellulitis Acute, or Chronic, or Acute on Chronic? @ -Acute Uncomplicated (without systemic symptoms) or Complicated (systemic symptoms)? @ -Complicated Side effects of treatment? @ -No Exacerbation, Progression, or Severe Exacerbation? @ -No Poses a threat to life or bodily function? How? (Chest pain, [place], [place], pneumonia, PE, COPD, DKA, ARF, appy, cholecystitis, CVA, Diverticulitis, Homicidal, Suicidal, threat to staff... and all critical care pts) @ -Yes (Ta Gaona) - Lab Data Lab Results 06/23/24 06/23/24 06/23/24 Range/Units 01:42 01:42 01:42 WBC 6.2 (3.8-10.6) k/uL RBC 3.80 (3.80-5.40) m/uL Hgb 11.1 L (11.4-16.0) gm/dL Hct 36.1 (34.0-46.0) % MCV 95.0 (80.0-100.0) fL MCH 29.3 (25.0-35.0) pg MCHC 30.9 L (31.0-37.0) g/dL RDW 14.0 (11.5-15.5) % Plt Count 178 (150-450) k/uL MPV 8.8 Neutrophils % 69 % Lymphocytes % 19 % Monocytes % 7 % Eosinophils % 1 % Basophils % 0 % Neutrophils # 4.3 (1.3-7.7) k/uL Lymphocytes # 1.2 (1.0-4.8) k/uL Monocytes # 0.4 (0-1.0) k/uL Eosinophils # 0.1 (0-0.7) k/uL Basophils # 0.0 (0-0.2) k/uL Hypochromasia Slight Sodium 138 (137-145) mmol/L Potassium 4.5 (3.5-5.1) mmol/L Chloride 102 (98-107) mmol/L Carbon Dioxide 31 H (22-30) mmol/L Anion Gap 5 mmol/L BUN 14 (7-17) mg/dL Creatinine 0.74 (0.52-1.04) mg/dL Est GFR (CKD-EPI)AfAm >90 (>60 ml/min/1.73 sqM) Est GFR (CKD-EPI)NonAf 84 (>60 ml/min/1.73 sqM) Glucose 82 (74-99) mg/dL Plasma Lactic Acid Lm 0.9 (0.7-2.0) mmol/L Calcium 9.6 (8.4-10.2) mg/dL Total Bilirubin 1.2 (0.2-1.3) mg/dL AST 44 H (14-36) U/L ALT 15 (4-34) U/L Alkaline Phosphatase 126 (38-126) U/L C-Reactive Protein 1.6 H (<1.0) mg/dL Total Protein 7.0 (6.3-8.2) g/dL Albumin 3.9 (3.5-5.0) g/dL Disposition Time of Disposition: 01:20 <Ta Gaona - Last Filed: 06/25/24 17:07> <Estrada Oliveira - Last Filed: 06/28/24 04:57> Clinical Impression: Cellulitis Disposition: ADMITTED IP TO THIS HOSP Condition: Fair
[2024-06-23] MEDS: AMPICILLIN-SULBACTAM 3 GM in SODIUM CHLORIDE 0.9% 100 ML IVPB STA (02:07)
[2024-06-23 02:15] LABS: Basophils % (A) 0 %; Eosinophils # (A) 0.1 k/uL (0-0.7); Eosinophils % (A) 1 %; HCT 36.1 % (34.0-46.0); HGB 11.1 gm/dL (11.4-16.0); Hypochromasia Slight; Lymphocytes # (A) 1.2 k/uL (1.0-4.8); Lymphocytes % (A) 19 %; MCH 29.3 pg (25.0-35.0); MCHC 30.9 g/dL (31.0-37.0); Mean Platelet Volume 8.8; Monocytes # (A) 0.4 k/uL (0-1.0); Monocytes % (A) 7 %; Neutrophils # (A) 4.3 k/uL (1.3-7.7); Neutrophils % (A) 69 %; Platelet Count 178 k/uL (150-450); WBC 6.2 k/uL (3.8-10.6)
[2024-06-23] MEDS ORDERED: NALOXONE 0.4 MG/ML 1 ML VIAL IV PRN (02:44)
[2024-06-23 02:57] LABS: ALT 15 U/L (4-34); African American GFR (CKD) >90 (>60 ml/min/1.73 sqM); Anion Gap 5 mmol/L; Blood Urea Nitrogen 14 mg/dL (7-17); C Reactive Protein 1.6 mg/dL (<1.0); Calcium 9.6 mg/dL (8.4-10.2); Carbon Dioxide 31 mmol/L (22-30); Chloride 102 mmol/L (98-107); Glucose 82 mg/dL (74-99); Non-African American GFR(CKD) 84 (>60 ml/min/1.73 sqM); Sodium 138 mmol/L (137-145)
[2024-06-23 03:15] LABS: Potassium 4.5 mmol/L (3.5-5.1)
[2024-06-23 03:16] LABS: AST 44 U/L (14-36); Albumin 3.9 g/dL (3.5-5.0); Alkaline Phosphatase 126 U/L (38-126); Total Bilirubin 1.2 mg/dL (0.2-1.3)
[2024-06-23] MEDS: MORPHINE SULFATE 4 MG/ML SYRINGE IVP PRN (05:47)
[2024-06-23] MEDS: PIPERACILLIN-TAZOBACTAM 3.375 GM in SODIUM CHLORIDE 0.9% 100 ML IVPB SCH (12:26)
--- NOTE | 2024-06-23 13:26 | P.HPIM ---
History of Present Illness 68-year-old female came in with swelling and cellulitis of the left lower extremity along with possible infected wounds in bilateral lower extremities. Patient was having chills and nausea at home. Patient did not check her temperature patient does not have any fever here does not have leukocytosis. Patient was started on daptomycin is admitted to the hospital with infectious disease consult. REVIEW OF SYSTEMS: All other systems are negative except those mentioned in the HPI PHYSICAL EXAMINATION: GENERAL: The patient is alert and oriented x3, not in any acute distress. Well developed, well nourished. Obese HEENT: Pupils are round and equally reacting to light. EOMI. No scleral icterus. No conjunctival pallor. Normocephalic, atraumatic. No pharyngeal erythema. No thyromegaly. CARDIOVASCULAR: S1 and S2 present. No murmurs, rubs, or gallops. PULMONARY: Chest is clear to auscultation, no wheezing or crackles. ABDOMEN: Soft, nontender, nondistended, normoactive bowel sounds. No palpable organomegaly. MUSCULOSKELETAL: No joint swelling or deformity. EXTREMITIES: No cyanosis, clubbing, or pedal edema. NEUROLOGICAL: Gross neurological examination did not reveal any focal deficits. SKIN: Redness in the left lower extremity significant edema which appears to be chronic in the left lower extremity and bilateral lower extremity ulcers Assessment and plan Cellulitis of the left lower extremity along with infected ulcers: Infectious disease was consulted will also consult wound care. Patient is on daptomycin which will be continued -Hypertension patient blood pressure is low as today we will cut down the dose of lisinopril -Diabetic peripheral neuropathy for which patient is on pregabalin which will be continued -Hyperlipidemia -Hypothyroidism -Obesity for above-mentioned chronic medical problems patient resumed on appropriate home medications DVT prophylaxis: Lovenox 50 mg subcutaneous Past Medical History Past Medical History: Hyperlipidemia, Hypertension, Osteoarthritis (OA), Skin Disorder, Thyroid Disorder, Vascular Disorder Additional Past Medical History / Comment(s): Nonambulatory/pivots to wheelchair normally, low back pain, neuropathy bilateral feet, chronic venous stasis, past L heel/L posterior yost/left second toe wounds, past L 2nd toe osteomyelitis-now amptuated, L great toe amptutated; 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 History of Any Multi-Drug Resistant Organisms: MRSA, VRE, VRE Date of last positivie culture/infection: 05/20/21-VRE; 04/07/20 MRSA MDRO Source:: Left Foot-VRE, Left Foot and Leg MRSA Past Surgical History: Section, Cholecystectomy, Orthopedic Surgery, Tubal Ligation Additional Past Surgical History / Comment(s): L leg I&D, bilateral knee arthroscopies, L great toe and 2nd/3rd toe amp d/t nonhealing wounds, PICCS, midlines, D&Cs Past Anesthesia/Blood Transfusion Reactions: Previous Problems w/ Anesthesia Additional Past Anesthesia/Blood Transfusion Reaction / Comment(s): Slow to come out of it Past Psychological History: Depression, Depression Smoking Status: Former smoker Past Alcohol Use History: None Reported Past Drug Use History: None Reported - Past Family History Father Family Medical History: Cancer, Coronary Artery Disease (CAD), Myocardial Infarction ([place]), Prostate Disorder Additional Family Medical History / Comment(s): Prostate CA. Father in a MVA at the age of 80yrs. Mother Family Medical History: Cancer, CVA/TIA, Hyperlipidemia Additional Family Medical History / Comment(s): Lung CA-left lobe removed. Medications and Allergies Home Medications Medication Instructions Recorded Confirmed Type Levothyroxine Sodium [Synthroid] 100 mcg PO DAILY 08/29/13 06/23/24 History Atorvastatin Calcium [Lipitor] 10 mg PO HS 10/06/18 06/23/24 History HYDROcodone/APAP 10-325MG [[place] 1 tab PO Q6H PRN #12 tab 07/29/21 06/23/24 Rx 10-325] Pregabalin [Lyrica] 100 mg PO TID #9 cap 07/29/21 06/23/24 Rx Amitriptyline HCl [Elavil] 10 mg PO HS 06/23/24 06/23/24 History lisinopriL 20 mg PO BID 06/23/24 06/23/24 History Allergies Allergy/AdvReac Type Severity Reaction Status Date / Time Sulfa (Sulfonamide Allergy Rash/Hives Verified 06/23/24 07:43 Antibiotics) vancomycin Allergy Rash/Hives Verified 06/23/24 07:43 levofloxacin [From Levaquin] AdvReac Itching Verified 06/23/24 07:43 Physical Exam Vitals: Vital Signs Temp Pulse Resp BP Pulse Ox 06/23/24 12:53 71 20 122/72 98 06/23/24 10:51 98.0 F 70 18 111/60 95 06/23/24 06:59 97.5 F L 68 18 101/65 98 06/23/24 04:40 97.4 F L 60 18 106/69 98 06/23/24 00:08 97.4 F L 82 18 136/82 99 Intake and Output 06/22/24 06/23/24 06/23/24 22:59 06:59 14:59 Other: Weight 136.078 kg Results CBC & Chem 7: 06/23/24 01:42 06/23/24 01:42 Labs: Abnormal Lab Results - Last 24 Hours (Table) 06/23/24 06/23/24 Range/Units 01:42 01:42 Hgb 11.1 L (11.4-16.0) gm/dL MCHC 30.9 L (31.0-37.0) g/dL Carbon Dioxide 31 H (22-30) mmol/L AST 44 H (14-36) U/L C-Reactive Protein 1.6 H (<1.0) mg/dL
[2024-06-23] MEDS: PREGABALIN 100 MG CAP PO SCH (15:56)
[2024-06-23] MEDS: AMITRIPTYLINE HCL 10 MG TAB PO SCH (20:41)
[2024-06-23] MEDS: ATORVASTATIN 10 MG TAB PO SCH (20:42)
[2024-06-23] MEDS ORDERED: lisinopriL 10 MG TAB PO SCH (21:00)
[2024-06-23] MEDS: HYDROcodone/APAP 10-325MG 1 EACH TAB PO PRN (23:02)
[2024-06-24] MEDS: LEVOTHYROXINE 100 MCG TAB PO SCH (05:54)
--- NOTE | 2024-06-24 07:37 | P.CONS ---
History of Present Illness - Reason for Consult Consult date: 06/23/24 Cellulitis Requesting physician: Ta Gaona - Chief Complaint Swelling redness and pain to the left leg x days - History of Present Illness Patient is a 68-year-old female with a past medical history significant for hyperlipidemia hypertension osteoarthritis did have a history of lower extremity/toes osteomyelitis requiring amputation and also have chronic swelling to bilateral lower extremity recently developing an ulcer to the left leg for the patient has been evaluated recently in the wound care, now presenting with worsening swelling redness especially to the left leg area that has been getting worse over the last few days has been complaining of pain which is mostly sharp and throbbing moderate intensity of the left leg with associated swelling redness did have some clear drainage from the left leg patient on presentation to the hospital was afebrile no fever have been recorded subsequently patient was not tachycardic hypotensive or hypoxic she did have white count 6.0 creatinine 0.74 did receive a dose of Unasyn by the ER physician infectious disease was consulted for further management of antibiotic therapy review of the culture data patient has previously grown Pseudomonas and MRSA from the left leg wound Review of Systems Positive point and negatives has been mentioned in the HPI, complete review of systems was performed and all other systems are negative Past Medical History Past Medical History: Hyperlipidemia, Hypertension, Osteoarthritis (OA), Skin Di sorder, Thyroid Disorder, Vascular Disorder Additional Past Medical History / Comment(s): Nonambulatory/pivots to wheelchair normally, low back pain, neuropathy bilateral feet, chronic venous stasis, past L heel/L posterior yost/left second toe wounds, past L 2nd toe osteomyelitis-now amptuated, L great toe amptutated; 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 History of Any Multi-Drug Resistant Organisms: MRSA, VRE, VRE Year Discovered:: 05/20/21-VRE; 04/07/20 MRSA MDRO Source:: Left Foot-VRE, Left Foot and Leg MRSA Past Surgical History: Section, Cholecystectomy, Orthopedic Surgery, T ubal Ligation Additional Past Surgical History / Comment(s): L leg I&D, bilateral knee arthroscopies, L great toe and 2nd/3rd toe amp d/t nonhealing wounds, PICCS, midlines, D&Cs Past Anesthesia/Blood Transfusion Reactions: Previous Problems w/ Anesthesia Additional Past Anesthesia/Blood Transfusion Reaction / Comm: Slow to come out of it Past Psychological History: Depression, Depression Smoking Status: Former smoker Past Alcohol Use History: None Reported Past Drug Use History: None Reported - Past Family History Father Family Medical History: Cancer, Coronary Artery Disease (CAD), Myocardial Infarction ([place]), Prostate Disorder Additional Family Medical History / Comment(s): Prostate CA. Father in a MVA at the age of 80yrs. Mother Family Medical History: Cancer, CVA/TIA, Hyperlipidemia Additional Family Medical History / Comment(s): Lung CA-left lobe removed. Medications and Allergies Home Medications Medication Instructions Recorded Confirmed Type Levothyroxine Sodium [Synthroid] 100 mcg PO DAILY 08/29/13 06/23/24 History Atorvastatin Calcium [Lipitor] 10 mg PO HS 10/06/18 06/23/24 History HYDROcodone/APAP 10-325MG [[place] 1 tab PO Q6H PRN #12 tab 07/29/21 06/23/24 Rx 10-325] Pregabalin [Lyrica] 100 mg PO TID #9 cap 07/29/21 06/23/24 Rx Amitriptyline HCl [Elavil] 10 mg PO HS 06/23/24 06/23/24 History lisinopriL 20 mg PO BID 06/23/24 06/23/24 History Allergies Allergy/AdvReac Type Severity Reaction Status Date / Time Sulfa (Sulfonamide Allergy Rash/Hives Verified 06/23/24 07:43 Antibiotics) vancomycin Allergy Rash/Hives Verified 06/23/24 07:43 levofloxacin [From Levaquin] AdvReac Itching Verified 06/23/24 07:43 Physical Exam Vitals: Vital Signs Temp Pulse Resp BP Pulse Ox 06/23/24 06:59 97.5 F L 68 18 101/65 98 06/23/24 04:40 97.4 F L 60 18 106/69 98 06/23/24 00:08 97.4 F L 82 18 136/82 99 Intake and Output 06/22/24 06/23/24 06/23/24 22:59 06:59 14:59 Other: Weight 136.078 kg GENERAL DESCRIPTION: Elderly female lying in bed, no distress. No tachypnea or accessory muscle of respiration use. HEENT: Shows Pallor , no scleral icterus. Oral mucous membrane is dry. No pharyngeal erythema or thrush NECK: Trachea central, no thyromegaly. LUNGS: Unlabored breathing. Clear to auscultation anteriorly. No wheeze or crac kle. HEART: S1, S2, regular rate and rhythm. No loud murmur ABDOMEN: Soft, no tenderness , guarding or rigidity, no organomegaly EXTREMITIES: Left lower extremity with swelling and redness which is warm to touch with a wound to the left lower leg no significant slough tissue SKIN: No rash, no masses palpable. NEUROLOGICAL: The patient is awake, alert, oriented x3, mood and affect normal. Results CBC & Chem 7: 06/23/24 01:42 06/23/24 01:42 Labs: Abnormal Lab Results - Last 24 Hours (Table) 06/23/24 06/23/24 Range/Units 01:42 01:42 Hgb 11.1 L (11.4-16.0) gm/dL MCHC 30.9 L (31.0-37.0) g/dL Carbon Dioxide 31 H (22-30) mmol/L AST 44 H (14-36) U/L C-Reactive Protein 1.6 H (<1.0) mg/dL Assessment and Plan (1) Leg ulcer, left Current Visit: Yes Status: Acute Code(s): L97.929 - NON-PRS CHRONIC ULC UNSP PRT OF L LOW LEG W UNSP SEVERITY SNOMED Code(s): 75017325 (2) Allergy to multiple antibiotics Current Visit: Yes Status: Acute Code(s): Z88.1 - ALLERGY STATUS TO OTHER ANTIBIOTIC AGENTS SNOMED Code(s): 258287389 (3) Cellulitis of left leg Current Visit: No Status: Acute Code(s): L03.116 - CELLULITIS OF LEFT LOWER LIMB SNOMED Code(s): 34868161092800645 Plan: 1patient presented to hospital with increasing swelling redness and pain to the left lower extremity in this patient who did have a venous stasis ulcer on the left leg and likely secondary cellulitis in this patient has previously grown MRSA as well as Pseudomonas from the lower extremity wound and will need to cover for them while waiting for the culture to finalize. 2patient with multiple antibiotic ALLERGIES that would limit the number of antibiotic safe to use 3local culture have been obtained to guide further antibiotic therapy 4patient will be started on daptomycin and Zosyn while waiting for the culture to finalize 5local wound care with the dry Aquacel silver dressing to the left leg wound followed by Yaya wrap from distal bilateral to below the knee We will follow on clinical condition and cultures to further adjust medication if needed Thank you for this consultation we will follow the patient along with you Dictation was produced using [employer] dictation software. please excuse any grammatical, word or spelling errors. Time with Patient: Greater than 30
[2024-06-24] MEDS: ENOXAPARIN 60 MG/0.6 ML SYRINGE SQ SCH (08:36)
[2024-06-24] MEDS: lisinopriL 10 MG TAB PO SCH (08:36)
--- NOTE | 2024-06-24 14:34 | P.PN ---
Subjective Progress Note Date: 06/24/24 68-year-old female came in with swelling and cellulitis of the left lower extremity along with possible infected wounds in bilateral lower extremities. Patient was having chills and nausea at home. Patient did not check her temperature patient does not have any fever here does not have leukocytosis. Patient was started on daptomycin is admitted to the hospital with infectious disease consult. 06/24/2024 Patient is evaluated today in follow up on the medical floor. Patient remains on IV vancomycin and IV daptomycin with wound cultures pending. Patient is reporting burning sensation to the left leg. Receiving IV morphine for this. ID recommending local wound care with absorptive silver dry and wrap with kerlex. Review of Systems Constitutional: Denied any fatigue denied any fever. Cardio vascular: denied any chest pain, palpitations Gastrointestinal: denied any nausea, vomiting, diarrhea Pulmonary: Denied any shortness of breath cough Neurologic denied any new focal deficits All inpatient medications were reviewed and appropriate changes in these medications as dictated in the interval history and assessment and plan. PHYSICAL EXAMINATION: GENERAL: The patient is alert and oriented x3, not in any acute distress. Well developed, well nourished. Obese HEENT: Pupils are round and equally reacting to light. EOMI. No scleral icterus. No conjunctival pallor. Normocephalic, atraumatic. No pharyngeal erythema. No thyromegaly. CARDIOVASCULAR: S1 and S2 present. No murmurs, rubs, or gallops. PULMONARY: Chest is clear to auscultation, no wheezing or crackles. ABDOMEN: Soft, nontender, nondistended, normoactive bowel sounds. No palpable organomegaly. MUSCULOSKELETAL: No joint swelling or deformity. EXTREMITIES: No cyanosis, clubbing, or pedal edema. NEUROLOGICAL: Gross neurological examination did not reveal any focal deficits. SKIN: Redness in the left lower extremity significant edema which appears to be chronic in the left lower extremity and bilateral lower extremity ulcers Assessment and plan Cellulitis of the left lower extremity along with infected ulcers: -Left lower extremity venous stasis ulcer, infected -Hypertension patient blood pressure is low as today we will cut down the dose of lisinopril -Diabetic peripheral neuropathy for which patient is on pregabalin which will be continued -Hyperlipidemia -Hypothyroidism -Morbid obesity DVT prophylaxis: Lovenox 50 mg subcutaneous GI prophylaxis protonix Full Code Plan Continue IV vancyomcyin and IV daptomycin and awaiting wound cultures ID following closely Continue with oral and IV pain medications Continue local wound care Patient is essentially wheel chair bound at rest states she does ambulate with a walker at times. The impression and plan of care has been dictated by Lucy Pfeiffer, Nurse Practitioner as directed. Dr. Ashli MD I have performed a history and physical examination and medical decision making of this patient, discussed the same with the dictator, and agree with the dictators assessment and plan as written, documented as a scribe. Based on total visit time, I have performed more than 50% of this visit. Objective - Vital Signs Vital signs: Vital Signs Temp 97.6 F 06/24/24 06:59 Pulse 70 06/24/24 06:59 Resp 18 06/24/24 06:59 BP 118/61 06/24/24 06:59 Pulse Ox 97 06/24/24 06:59 FiO2 Intake & Output 06/23/24 06/24/24 06/24/24 18:59 06:59 18:59 Other: Voiding Method External Catheter External Catheter # Voids 0 - Labs CBC & Chem 7: 06/23/24 01:42 06/23/24 01:42 Labs: Microbiology - Last 24 Hours (Table) 06/23/24 01:04 Blood Culture - Preliminary Blood 06/23/24 09:30 Gram Stain - Preliminary Ankle - Left Wound Culture - Preliminary 06/23/24 01:42 Gram Stain - Preliminary Leg - Left Wound Culture - Preliminary Assessment and Plan Time with Patient: Less than 30
[2024-06-25] MEDS: PANTOPRAZOLE 40 MG TABLET PO SCH (05:58)
--- NOTE | 2024-06-25 15:00 | P.PN ---
Subjective Progress Note Date: 06/25/24 Principal diagnosis: Reason for follow-up is left leg ulcer and cellulitis Patient is a 68-year-old female with a past medical history significant for hyperlipidemia hypertension osteoarthritis did have a history of lower extremity/toes osteomyelitis requiring amputation and also have chronic swelling to bilateral lower extremity recently developing an ulcer to the left leg sepsis developing increasing swelling redness pain to the left leg presenting with left leg cellulitis. On today's evaluation that is 06/25/2024, patient did not have any fever and denies any chills, patient is breathing comfortably on room air, patient with no chest pain or cough patient did not have any abdominal pain nausea vomiting or any loose stools, pain to the left leg is slightly decreased in intensity. No new lab has been repeated today cultures are negative so far Objective - Vital Signs Vital signs: Vital Signs Temp 97.9 F 06/25/24 07:00 Pulse 65 06/25/24 07:00 Resp 16 06/25/24 07:00 BP 109/73 06/25/24 07:00 Pulse Ox 95 06/25/24 07:00 FiO2 Intake & Output 06/24/24 06/25/24 06/25/24 18:59 06:59 18:59 Output Total 200 1390 Balance -200 -1390 Weight 136.078 kg Output: Urine 200 1390 Other: Voiding Method External Catheter External Catheter External Catheter - Exam GENERAL DESCRIPTION: An elderly Female lying in bed in no distress RESPIRATORY SYSTEM: Unlabored breathing , clear to auscultation anteriorly HEART: S1 S2 regular rate and rhythm , ABDOMEN: Soft , no tenderness EXTREMITIES: Swelling to bilateral lower extremity left leg redness slightly decreased - Labs CBC & Chem 7: 06/23/24 01:42 06/23/24 01:42 Labs: Microbiology - Last 24 Hours (Table) 06/23/24 09:30 Gram Stain - Final Ankle - Left Wound Culture - Final 06/23/24 01:42 Gram Stain - Final Leg - Left Wound Culture - Final 06/23/24 01:04 Blood Culture - Preliminary Blood Assessment and Plan (1) Leg ulcer, left Current Visit: Yes Status: Acute Code(s): L97.929 - NON-PRS CHRONIC ULC UNSP PRT OF L LOW LEG W UNSP SEVERITY SNOMED Code(s): 41859429 (2) Allergy to multiple antibiotics Current Visit: Yes Status: Acute Code(s): Z88.1 - ALLERGY STATUS TO OTHER ANTIBIOTIC AGENTS SNOMED Code(s): 575073391 (3) Cellulitis of left leg Current Visit: No Status: Acute Code(s): L03.116 - CELLULITIS OF LEFT LOWER LIMB SNOMED Code(s): 88836047946563814 Plan: 1patient presented to hospital with increasing swelling redness and pain to the left lower extremity in this patient who did have a venous stasis ulcer on the left leg and likely secondary cellulitis in this patient has previously grown MRSA as well as Pseudomonas from the lower extremity wound and will need to cover for them while waiting for the culture to finalize. 2patient with multiple antibiotic ALLERGIES that would limit the number of antibiotic safe to use 3local culture have been obtained which has been negative so far 4patientlocal wound care with the dry Aquacel silver dressing to the left leg wound followed by Yaya wrap from distal bilateral to below the knee 5with a culture negative for any resistant pathogen we will discontinue Zosyn and daptomycin start the patient on cefazolin and if she will continue improvement will finish therapy with oral Keflex discussed with the [employer] for admitting team Dictation was produced using [employer] dictation software. please excuse any grammatical, word or spelling errors. Time with Patient: Less than 30
--- NOTE | 2024-06-25 15:00 | P.PN ---
Subjective Progress Note Date: 06/24/24 Principal diagnosis: Reason for follow-up is left leg ulcer and cellulitis Patient is a 68-year-old female with a past medical history significant for hyperlipidemia hypertension osteoarthritis did have a history of lower extremity/toes osteomyelitis requiring amputation and also have chronic swelling to bilateral lower extremity recently developing an ulcer to the left leg sepsis developing increasing swelling redness pain to the left leg presenting with left leg cellulitis. On today's evaluation that is 06/24/2024, the patient continues to be afebrile, the patient is on room air and breathing comfortably, the Pt denies having any chest pain or cough, the patient denies having any abdominal pain no vomiting or any diarrhea still complaining of pain to the left leg however has decreased in intensity. No new lab has been obtained today cultures are currently pending Objective - Vital Signs Vital signs: Vital Signs Temp 98 F 06/24/24 14:05 Pulse 84 06/24/24 14:05 Resp 18 06/24/24 14:05 BP 102/61 06/24/24 14:05 Pulse Ox 96 06/24/24 14:05 FiO2 - Exam GENERAL DESCRIPTION: An elderly Female lying in bed in no distress RESPIRATORY SYSTEM: Unlabored breathing , clear to auscultation anteriorly HEART: S1 S2 regular rate and rhythm , ABDOMEN: Soft , no tenderness EXTREMITIES: Swelling to bilateral lower extremity left leg redness slightly decreased - Labs CBC & Chem 7: 06/23/24 01:42 06/23/24 01:42 Labs: Microbiology - Last 24 Hours (Table) 06/23/24 09:30 Gram Stain - Final Ankle - Left Wound Culture - Final 06/23/24 01:42 Gram Stain - Final Leg - Left Wound Culture - Final 06/23/24 01:04 Blood Culture - Preliminary Blood Assessment and Plan (1) Leg ulcer, left Current Visit: Yes Status: Acute Code(s): L97.929 - NON-PRS CHRONIC ULC UNSP PRT OF L LOW LEG W UNSP SEVERITY SNOMED Code(s): 12337831 (2) Allergy to multiple antibiotics Current Visit: Yes Status: Acute Code(s): Z88.1 - ALLERGY STATUS TO OTHER ANTIBIOTIC AGENTS SNOMED Code(s): 191644627 (3) Cellulitis of left leg Current Visit: No Status: Acute Code(s): L03.116 - CELLULITIS OF LEFT LOWER LIMB SNOMED Code(s): 98733989915142039 Plan: 1patient presented to hospital with increasing swelling redness and pain to the left lower extremity in this patient who did have a venous stasis ulcer on the left leg and likely secondary cellulitis in this patient has previously grown MRSA as well as Pseudomonas from the lower extremity wound and will need to cover for them while waiting for the culture to finalize. 2patient with multiple antibiotic ALLERGIES that would limit the number of antibiotic safe to use 3local culture have been obtained to guide further antibiotic therapy 4patientlocal wound care with the dry Aquacel silver dressing to the left leg wound followed by Yaya wrap from distal bilateral to below the knee 5we will continue the patient on daptomycin and Zosyn while waiting for the culture to finalize Dictation was produced using [employer] dictation software. please excuse any grammatical, word or spelling errors. Time with Patient: Less than 30
[2024-06-25] MEDS: ceFAZolin 3 GM in SODIUM CHLORIDE 0.9% 100 ML IVPB SCH (16:42)
--- NOTE | 2024-06-26 02:29 | P.PN ---
Subjective Progress Note Date: 06/25/24 68-year-old female came in with swelling and cellulitis of the left lower extremity along with possible infected wounds in bilateral lower extremities. Patient was having chills and nausea at home. Patient did not check her temperature patient does not have any fever here does not have leukocytosis. Patient was started on daptomycin is admitted to the hospital with infectious disease consult. 06/24/2024 Patient is evaluated today in follow up on the medical floor. Patient remains on IV vancomycin and IV daptomycin with wound cultures pending. Patient is reporting burning sensation to the left leg. Receiving IV morphine for this. ID recommending local wound care with absorptive silver dry and wrap with kerlex. 06/25/2024 Patient is seen in follow-up today continues on IV antibiotics with infectious disease following. Wound cultures pending at this time and awaiting for finalized cultures to determine discharge antibiotics. Continue with local wound care per ID recommendations. Review of Systems Constitutional: Denied any fatigue denied any fever. Cardio vascular: denied any chest pain, palpitations Gastrointestinal: denied any nausea, vomiting, diarrhea Pulmonary: Denied any shortness of breath cough Neurologic denied any new focal deficits All inpatient medications were reviewed and appropriate changes in these medications as dictated in the interval history and assessment and plan. PHYSICAL EXAMINATION: GENERAL: The patient is alert and oriented x3, not in any acute distress. Well developed, well nourished. Morbidly obese HEENT: Pupils are round and equally reacting to light. EOMI. No scleral icterus. No conjunctival pallor. Normocephalic, atraumatic. No pharyngeal erythema. No thyromegaly. CARDIOVASCULAR: S1 and S2 present. No murmurs, rubs, or gallops. PULMONARY: Chest is clear to auscultation, no wheezing or crackles. ABDOMEN: Soft, obese, nontender, nondistended, normoactive bowel sounds. No palpable organomegaly. MUSCULOSKELETAL: No joint swelling or deformity. EXTREMITIES: No cyanosis, clubbing, or pedal edema. NEUROLOGICAL: Gross neurological examination did not reveal any focal deficits. SKIN: Redness in the left lower extremity showing improvement and significant edema which appears to be chronic in the left lower extremity and bilateral lower extremity ulcers Assessment: -Cellulitis of the left lower extremity along with infected chronic venous stasis ulcers, present on admission, cultures remain negative thus far -Left lower extremity venous stasis ulcer, infected -Hypertension, patient blood pressure and will hold lisinopril -Diabetic peripheral neuropathy for which patient is on pregabalin which will be continued -Hyperlipidemia -Hypothyroidism -Morbid obesity with a BMI of 45.6 DVT prophylaxis: Lovenox 50 mg subcutaneous GI prophylaxis protonix Full Code Plan: Patient being followed by infectious disease maintained on IV antibiotics in the form of vancomycin and Dapto and will transition to cefazolin as cultures are negative. Plan for discharge planning with oral antibiotic course and continued local wound care. Patient follows at the wound care center and will keep appointment for this week Will follow-up on repeat labs, replace electrolytes per protocol Continue with oral and IV pain medications, recommend limiting IV pain medication Continue local wound care and continue with Yaya wrap's as instructed per ID recommendations from the toes up to the knees and also instructed patient to continue elevating while at rest Patient is essentially wheel chair bound at rest states she does ambulate with a walker at times. Possible discharge planning in the next 24 hours The impression and plan of care has been dictated by Nan Espinoza, Nurse Practitioner as directed. Dr. Ashli MD I have performed a history and physical examination and medical decision making of this patient, discussed the same with the dictator, and agree with the dictators assessment and plan as written, documented as a scribe. Based on total visit time, I have performed more than 50% of this visit. Objective - Vital Signs Vital signs: Vital Signs Temp 97.9 F 06/25/24 07:00 Pulse 65 06/25/24 07:00 Resp 16 06/25/24 07:00 BP 109/73 06/25/24 07:00 Pulse Ox 95 06/25/24 07:00 FiO2 Intake & Output 06/24/24 06/25/24 06/25/24 18:59 06:59 18:59 Output Total 200 1390 Balance -200 -1390 Weight 136.078 kg Output: Urine 200 1390 Other: Voiding Method External Catheter External Catheter - Labs CBC & Chem 7: 06/23/24 01:42 06/23/24 01:42 Labs: Microbiology - Last 24 Hours (Table) 06/23/24 09:30 Gram Stain - Final Ankle - Left Wound Culture - Final 06/23/24 01:42 Gram Stain - Final Leg - Left Wound Culture - Final 06/23/24 01:04 Blood Culture - Preliminary Blood
[2024-06-26 09:52] LABS: Basophils # (A) 0.02 X 10*3/uL (0.00-0.10); Basophils % (A) 0.4 %; Eosinophils # (A) 0.11 X 10*3/uL (0.04-0.35); HCT 31.1 % (37.2-46.3); HGB 9.6 g/dL (12.0-15.0); Lymphocytes # (A) 0.62 X 10*3/uL (0.90-5.00); Lymphocytes % (A) 11.1 %; MCH 30.2 pg (27.0-32.0); MCHC 30.9 g/dL (32.0-37.0); MCV 97.8 FL (80.0-97.0); Mean Platelet Volume 12.5 FL (9.5-12.2); Monocytes # (A) 0.59 X 10*3/uL (0.20-1.00); Monocytes % (A) 10.5 %; NRBC Per 100 WBC 0 X 10*3/uL (0.00-0.01); Neutrophils # (A) 4.24 X 10*3/uL (1.80-7.70); Neutrophils % (A) 75.6 %; Platelet Count 142 X 10*3/uL (140-440); RBC 3.18 X 10*6/uL (4.10-5.20); RDW 15.1 % (11.5-14.5)
[2024-06-26 09:57] LABS: ALT 36 U/L (8-44); AST 35 U/L (13-35); Albumin 2.8 g/dL (3.8-4.9); Alkaline Phosphatase 154 U/L (41-126); Calcium 8.5 mg/dL (8.7-10.3); Carbon Dioxide 27.2 mmol/L (21.6-31.8); Chloride 110 mmol/L (96-109); Glucose 117 mg/dL (70-110); Potassium 4.5 mmol/L (3.5-5.5); Sodium 144 mmol/L (135-145); Total Bilirubin <0.2 mg/dL (0.3-1.2); Total Protein 4.8 g/dL (6.2-8.2)
--- NOTE | 2024-06-26 13:55 | US ---
EXAMINATION TYPE: US venous doppler duplex LE LT DATE OF EXAM: 06/26/2024 1:43 PM COMPARISON: NONE CLINICAL INDICATION: Female, 68 years old with history of left thigh swelling, burning, pain; Left le g pain limited due to swelling and body habitus. , Pain TECHNIQUE: The lower extremity deep venous system is examined utilizing real time linear array sonog mark with graded compression, color doppler sonography, and spectral doppler. SIDE PERFORMED: Left FINDINGS: VESSELS IMAGED: Common Femoral Vein Deep Femoral Vein Greater Saphenous Vein * Femoral Vein Right Leg: Negative for DVT in vessels imaged unable to visualize Popliteal Vein due to edema. [place] r Doppler imaging shows patency of the vessels. Spectral waveforms are within normal limits. IMPRESSION: No visualized deep venous thrombosis of the right lower extremity however there is nonvisualization o f the popliteal vein due to edema. [facility], , 06/26/2024 1:53 PM
--- NOTE | 2024-06-26 15:32 | P.PN ---
Subjective Progress Note Date: 06/26/24 Principal diagnosis: Reason for follow-up is left leg ulcer and cellulitis Patient is a 68-year-old female with a past medical history significant for hyperlipidemia hypertension osteoarthritis did have a history of lower extremity/toes osteomyelitis requiring amputation and also have chronic swelling to bilateral lower extremity recently developing an ulcer to the left leg sepsis developing increasing swelling redness pain to the left leg presenting with left leg cellulitis. On today's evaluation that is 06/26/2024, Patient is afebrile patient is currently on room air and denies having any shortness of breath, the patient denies any chest pain or cough, the patient denies any nausea vomiting did not have any abdominal pain and no diarrhea denies any worsening pain to the lower extremity. Patient white count is 5.60, creatinine 1.0 culture remains to be negative Objective - Vital Signs Vital signs: Vital Signs Temp 98.4 F 06/26/24 07:00 Pulse 76 06/26/24 07:00 Resp 18 06/26/24 07:00 BP 131/82 06/26/24 07:00 Pulse Ox 95 06/26/24 07:00 FiO2 Intake & Output 06/25/24 06/26/24 06/26/24 18:59 06:59 18:59 Intake Total 240 Output Total 551 750 Balance -311 -750 Intake: Oral 240 Output: Urine 550 750 Stool 1 Other: Voiding Method External Catheter External Catheter External Catheter # Bowel Movements 0 - Exam GENERAL DESCRIPTION: An elderly Female lying in bed in no distress RESPIRATORY SYSTEM: Unlabored breathing , clear to auscultation anteriorly HEART: S1 S2 regular rate and rhythm , ABDOMEN: Soft , no tenderness EXTREMITIES: Swelling to bilateral lower extremity left leg redness slightly decreased - Labs CBC & Chem 7: 06/26/24 04:27 06/26/24 04:27 Labs: Abnormal Lab Results - Last 24 Hours (Table) 06/26/24 06/26/24 Range/Units 04:27 04:27 RBC 3.18 L (4.10-5.20) X 10*6/uL Hgb 9.6 L (12.0-15.0) g/dL Hct 31.1 L (37.2-46.3) % MCV 97.8 H (80.0-97.0) FL MCHC 30.9 L (32.0-37.0) g/dL RDW 15.1 H (11.5-14.5) % MPV 12.5 H (9.5-12.2) FL Lymphocytes # 0.62 L (0.90-5.00) X 10*3/uL Chloride 110 H (96-109) mmol/L BUN/Creatinine Ratio 11.00 L (12.00-20.00) Ratio Glucose 117 H (70-110) mg/dL Calcium 8.5 L (8.7-10.3) mg/dL Total Bilirubin <0.2 L (0.3-1.2) mg/dL Alkaline Phosphatase 154 H (41-126) U/L Total Protein 4.8 L (6.2-8.2) g/dL Albumin 2.8 L (3.8-4.9) g/dL Albumin/Globulin Ratio 1.40 L (1.60-3.17) Ratio Microbiology - Last 24 Hours (Table) 06/23/24 01:04 Blood Culture - Preliminary Blood 06/23/24 09:30 Gram Stain - Final Ankle - Left Wound Culture - Final 06/23/24 01:42 Gram Stain - Final Leg - Left Wound Culture - Final Assessment and Plan (1) Leg ulcer, left Current Visit: Yes Status: Acute Code(s): L97.929 - NON-PRS CHRONIC ULC UNSP PRT OF L LOW LEG W UNSP SEVERITY SNOMED Code(s): 14010092 (2) Allergy to multiple antibiotics Current Visit: Yes Status: Acute Code(s): Z88.1 - ALLERGY STATUS TO OTHER ANTIBIOTIC AGENTS SNOMED Code(s): 611332769 (3) Cellulitis of left leg Current Visit: No Status: Acute Code(s): L03.116 - CELLULITIS OF LEFT LOWER LIMB SNOMED Code(s): 52647763600597173 Plan: 1patient presented to hospital with increasing swelling redness and pain to the left lower extremity in this patient who did have a venous stasis ulcer on the left leg and likely secondary cellulitis in this patient has previously grown MRSA as well as Pseudomonas from the lower extremity wound and will need to cover for them while waiting for the culture to finalize. 2patient with multiple antibiotic ALLERGIES that would limit the number of antibiotic safe to use 3local culture have been obtained which has been negative so far 4patientlocal wound care with the dry Aquacel silver dressing to the left leg wound followed by Yaya wrap from distal bilateral to below the knee 5patient to continue with the cefazolin while inpatient with a plan to finish therapy with oral Keflex Dictation was produced using [employer] dictation software. please excuse any grammatical, word or spelling errors.
[2024-06-27 02:41] VITALS: RESP 16
--- NOTE | 2024-06-27 05:09 | P.PN ---
Subjective Progress Note Date: 06/26/24 68-year-old female came in with swelling and cellulitis of the left lower extremity along with possible infected wounds in bilateral lower extremities. Patient was having chills and nausea at home. Patient did not check her temperature patient does not have any fever here does not have leukocytosis. Patient was started on daptomycin is admitted to the hospital with infectious disease consult. 06/24/2024 Patient is evaluated today in follow up on the medical floor. Patient remains on IV vancomycin and IV daptomycin with wound cultures pending. Patient is reporting burning sensation to the left leg. Receiving IV morphine for this. ID recommending local wound care with absorptive silver dry and wrap with kerlex. 06/25/2024 Patient is seen in follow-up today continues on IV antibiotics with infectious disease following. Wound cultures pending at this time and awaiting for finalized cultures to determine discharge antibiotics. Continue with local wound care per ID recommendations. 06/26/2024 Patient is seen in follow-up today with infectious disease following maintained on IV cefazolin showing some clinical improvement although patient is reporting significant burning and tenderness in the upper thigh reporting it is extremely heavy and patient unable to lift the lower extremity. Patient normally wheelchair-bound but able to get up and stand and pivot as needed. Patient is concerned with going home having difficulty as she lives alone. Patient is afebrile denies chest pain or shortness of breath. Will obtain a Doppler of the left lower extremity as patient is reporting significant swelling and burning pain in the left thigh. Review of Systems Constitutional: Denied any fatigue denied any fever. Cardio vascular: denied any chest pain, palpitations Gastrointestinal: denied any nausea, vomiting, diarrhea Pulmonary: Denied any shortness of breath cough Neurologic denied any new focal deficits diffusely weak All inpatient medications were reviewed and appropriate changes in these medications as dictated in the interval history and assessment and plan. PHYSICAL EXAMINATION: GENERAL: The patient is alert and oriented x3, not in any acute distress. Well developed, well nourished. Morbidly obese HEENT: Pupils are round and equally reacting to light. EOMI. No scleral icterus. No conjunctival pallor. Normocephalic, atraumatic. No pharyngeal erythema. No thyromegaly. CARDIOVASCULAR: S1 and S2 present. No murmurs, rubs, or gallops. PULMONARY: Chest is clear to auscultation, no wheezing or crackles. ABDOMEN: Soft, obese, nontender, nondistended, normoactive bowel sounds. No palpable organomegaly. MUSCULOSKELETAL: No joint swelling or deformity. EXTREMITIES: No cyanosis, clubbing, or pedal edema. Left yost area with some minimal redness although improving as it was marked on admission, mild swelling appears chronic although patient is reporting increased left upper thigh swelling NEUROLOGICAL: Gross neurological examination did not reveal any focal deficits. SKIN: Redness in the left lower extremity showing improvement and improvements in edema which appears to be chronic in the left lower extremity and bilateral lower extremity ulcers Assessment: -Cellulitis of the left lower extremity along with infected chronic venous stasis ulcers, present on admission, cultures remain negative thus far -Left lower extremity venous stasis ulcer, infected -Hypertension, patient blood pressure and will hold lisinopril -Diabetic peripheral neuropathy for which patient is on pregabalin which will be continued -Hyperlipidemia -Hypothyroidism -Morbid obesity with a BMI of 45.6 DVT prophylaxis: Lovenox 50 mg subcutaneous GI prophylaxis protonix Full Code Plan: Patient being followed by infectious disease and cultures are negative and has been transition to IV cefazolin. Plan for discharge planning with oral antibiotic course and continued local wound care. Patient follows at the wound care center and will keep appointment for this week Patient reporting burning and increased swelling and pain in the left thigh and lower extremity. Venous Doppler was done and negative for DVT. Continue with oral and IV pain medications, recommend limiting IV pain medication Continue local wound care and continue with Yaya wrap's as instructed per ID re commendations from the toes up to the knees and also instructed patient to continue elevating while at rest Patient is essentially wheel chair bound at rest states she does ambulate with a walker at times. Possible discharge planning in the next 24 hours The impression and plan of care has been dictated by Nan Espinoza Nurse Practitioner as directed. Dr. Ashli MD I have performed a history and physical examination and medical decision making of this patient, discussed the same with the dictator, and agree with the dictators assessment and plan as written, documented as a scribe. Based on total visit time, I have performed more than 50% of this visit. Objective - Vital Signs Vital signs: Vital Signs Temp 98.4 F 06/26/24 07:00 Pulse 76 06/26/24 07:00 Resp 18 06/26/24 07:00 BP 131/82 06/26/24 07:00 Pulse Ox 95 06/26/24 07:00 FiO2 Intake & Output 06/25/24 06/26/24 06/26/24 18:59 06:59 18:59 Intake Total 240 Output Total 551 750 Balance -311 -750 Intake: Oral 240 Output: Urine 550 750 Stool 1 Other: Voiding Method External Catheter External Catheter # Bowel Movements 0 - Labs CBC & Chem 7: 06/26/24 04:27 06/26/24 04:27 Labs: Microbiology - Last 24 Hours (Table) 06/23/24 01:04 Blood Culture - Preliminary Blood 06/23/24 09:30 Gram Stain - Final Ankle - Left Wound Culture - Final 06/23/24 01:42 Gram Stain - Final Leg - Left Wound Culture - Final
[2024-06-27 08:12] VITALS: TEMP 98
--- NOTE | 2024-06-27 16:07 | P.PN ---
Subjective Progress Note Date: 06/27/24 Principal diagnosis: Reason for follow-up is left leg ulcer and cellulitis Patient is a 68-year-old female with a past medical history significant for hyperlipidemia hypertension osteoarthritis did have a history of lower extremity/toes osteomyelitis requiring amputation and also have chronic swelling to bilateral lower extremity recently developing an ulcer to the left leg sepsis developing increasing swelling redness pain to the left leg presenting with left leg cellulitis. On today's evaluation that is 06/27/2024, patient has been afebrile, patient is breathing comfortably and is currently on room air, patient denies having any significant cough no chest pain, patient denies nausea vomiting or diarrhea and no abdominal pain denies any worsening pain or extremity has been complaining of some headache with some Tylenol. No new lab has been obtained today culture remains to be negative blood culture negative Objective - Vital Signs Vital signs: Vital Signs Temp 98.0 F 06/27/24 07:06 Pulse 74 06/27/24 07:06 Resp 16 06/27/24 07:06 BP 101/65 06/27/24 07:06 Pulse Ox 96 06/27/24 07:06 FiO2 Intake & Output 06/26/24 06/27/24 06/27/24 18:59 06:59 18:59 Intake Total 118 Output Total 900 600 Balance -900 -600 118 Intake: Oral 118 Output: Urine 900 600 Other: Voiding Method External Catheter External Catheter # Bowel Movements 0 - Exam GENERAL DESCRIPTION: An elderly Female lying in bed in no distress RESPIRATORY SYSTEM: Unlabored breathing , clear to auscultation anteriorly HEART: S1 S2 regular rate and rhythm , ABDOMEN: Soft , no tenderness EXTREMITIES: Swelling to bilateral lower extremity left leg redness slightly decreased - Labs CBC & Chem 7: 06/26/24 04:27 06/26/24 04:27 Labs: Microbiology - Last 24 Hours (Table) 06/23/24 01:04 Blood Culture - Preliminary Blood Assessment and Plan (1) Leg ulcer, left Current Visit: Yes Status: Acute Code(s): L97.929 - NON-PRS CHRONIC ULC UNSP PRT OF L LOW LEG W UNSP SEVERITY SNOMED Code(s): 83892428 (2) Allergy to multiple antibiotics Current Visit: Yes Status: Acute Code(s): Z88.1 - ALLERGY STATUS TO OTHER ANTIBIOTIC AGENTS SNOMED Code(s): 067172369 (3) Cellulitis of left leg Current Visit: No Status: Acute Code(s): L03.116 - CELLULITIS OF LEFT LOWER LIMB SNOMED Code(s): 29085858840475969 Plan: 1patient presented to hospital with increasing swelling redness and pain to the left lower extremity in this patient who did have a venous stasis ulcer on the left leg and likely secondary cellulitis in this patient has previously grown MRSA as well as Pseudomonas from the lower extremity wound and will need to cover for them while waiting for the culture to finalize. 2patient with multiple antibiotic ALLERGIES that would limit the number of antibiotic safe to use 3local culture have been obtained which has been negative so far 4patientlocal wound care with the dry Aquacel silver dressing to the left leg wound followed by Yaya wrap from distal bilateral to below the knee 5patient did have some improvement to the lower extremity cellulitis with cefazolin to continue while inpatient finishing therapy with oral Keflex will give Tylenol for headache Dictation was produced using [employer] dictation software. please excuse any grammatical, word or spelling errors. Time with Patient: Less than 30
[2024-06-27] MEDS: ACETAMINOPHEN TAB 325 MG TAB PO PRN (16:25)
[2024-06-27 17:04] VITALS: BP 121/76; PULSE 72
--- NOTE | 2024-06-30 19:14 | P.DS ---
Providers Date of admission: 06/23/24 13:37 Attending physician: Nikos Hill MD Consults: 06/23/24 02:44 Consult Physician Urgent Consulting Provider: Thea Hernandez Consult Reason/Comments: cellulitis Do you want consulting provider notified?: Yes, Notify in am [facility] care [facility] Course: Final Diagnosis -Cellulitis of the left lower extremity along with infected chronic venous stasis ulcers, present on admission, cultures remain negative thus far -Left lower extremity venous stasis ulcer, infected -Hypertension, patient blood pressure and will hold lisinopril -Diabetic peripheral neuropathy for which patient is on pregabalin which will be continued -Hyperlipidemia -Hypothyroidism -Morbid obesity with a BMI of 45.6 Discharge Disposition Patient is stable for discharge home. Patient to continue all same home medications with exception of lisinopril as blood pressure has been low normal. She will continue oral keflex for 7 more days on discharge. Follow up closely with Dr Hernandez an appt has been made for July 04 in the office. Follow up with PCP Dr. Mcfarlane in 1 to 2 days. Repeat blood work. Hospital Course 68-year-old female came in with swelling and cellulitis of the left lower extremity along with possible infected wounds in bilateral lower extremities. Patient was having chills and nausea at home. Patient did not check her temperature patient does not have any fever here does not have leukocytosis. Patient was started on daptomycin is admitted to the hospital with infectious disease consult. IV vancomycin was added. Patient is reporting burning sensation to the left leg. Receiving IV morphine for this. ID recommending local wound care with absorptive silver dry and wrap with kerlex. Patient normally wheelchair-bound but able to get up and stand and pivot as needed. Patient is concerned with going home having difficulty as she lives alone. Patient is afebrile denies chest pain or shortness of breath. Will obtain a Doppler of the left lower extremity as patient is reporting significant swelling and burning pain in the left thigh. Venous doppler was negative for DVT bilaterally. All cultures are negative. ID recommending course of oral keflex for 7 days on discharge. Patient has a follow up appointment with Dr Hernandez in 1 week on discharge. Recommend to continue the local wound care with dry aquacel and to change every 48 hours. Please see medication reconciliation for a list of current medications. Thank you for allowing us to participate in the care of this patient. The impression and plan of care has been dictated by Lucy Pfeiffer, Nurse Practitioner as directed. Dr. Ashli MD I have performed a history and physical examination and medical decision making of this patient, discussed the same with the dictator, and agree with the dictators assessment and plan as written, documented as a scribe. Based on total visit time, I have performed more than 50% of this visit. Patient Condition at Discharge: Fair Plan - Discharge Summary Discharge Rx Participant: No New Discharge Prescriptions: New Pantoprazole [Protonix] 40 mg PO AC-BRKFST #30 tab Cephalexin [Keflex] 500 mg PO Q6HR 7 Days #28 cap Continue Levothyroxine Sodium [Synthroid] 100 mcg PO DAILY Atorvastatin Calcium [Lipitor] 10 mg PO HS Pregabalin [Lyrica] 100 mg PO TID #9 cap Amitriptyline HCl [Elavil] 10 mg PO HS HYDROcodone/APAP 10-325MG [[place] 10-325] 1 tab PO Q6H PRN #12 tab PRN Reason: Pain Discontinued lisinopriL 20 mg PO BID Discharge Medication List Levothyroxine Sodium [Synthroid] 100 mcg PO DAILY 08/29/13 [History] Atorvastatin Calcium [Lipitor] 10 mg PO HS 10/06/18 [History] HYDROcodone/APAP 10-325MG [[place] 10-325] 1 tab PO Q6H PRN #12 tab 07/29/21 [Rx] Pregabalin [Lyrica] 100 mg PO TID #9 cap 07/29/21 [Rx] Amitriptyline HCl [Elavil] 10 mg PO HS 06/23/24 [History] Cephalexin [Keflex] 500 mg PO Q6HR 7 Days #28 cap 06/27/24 [Rx] Pantoprazole [Protonix] 40 mg PO AC-BRKFST #30 tab 06/27/24 [Rx] Follow up Appointment(s)/Referral(s): Adonis Mcfarlane DO [Primary Care Provider] - 1-2 days [facility], [NON-STAFF] - As Needed Thea Hernandez MD [STAFF PHYSICIAN] - 07/04/24 1:15 pm Ambulatory/Diagnostic Orders: Basic Metabolic Panel [LAB.AMB] Time Frame: 3 Days, Location: None Selected Complete Blood Count w/diff [LAB.AMB] Location: None Selected Patient Instructions/Handouts: Cellulitis (ED) Activity/Diet/Wound Care/Special Instructions: Q48 - local wound care with the dry Aquacel silver dressing to the left leg wound followed by Yaya wrap from distal bilateral to below the knee Discharge Disposition: HOME WITH HOME HEALTH SERVICES
== END 2024-06-27 19:24 | disposition home health service (06) | DRG 603 ==
LOC: EC 00:02 → 6NMEDSUR 02:45 → OBSVTOIN 13:37 → 6NMEDSUR 13:38 → 1SOBS 18:44 → 6NMEDSUR 06-24 19:12
PROVIDERS: ADMIT Internal Medicine; ATTEND Internal Medicine
DX: L03.116 Cellulitis of left lower limb (principal); L97.929 Non-pressure chronic ulcer of unspecified part of left lower leg with unspecified severity; I83.029 Varicose veins of left lower extremity with ulcer of unspecified site; E66.01 Morbid (severe) obesity due to excess calories; I10 Essential (primary) hypertension; E03.9 Hypothyroidism, unspecified; Z68.42 Body mass index [BMI] 45.0-49.9, adult; G62.9 Polyneuropathy, unspecified; I87.8 Other specified disorders of veins; E78.5 Hyperlipidemia, unspecified; Z79.890 Hormone replacement therapy; Z88.1 Allergy status to other antibiotic agents; Z88.2 Allergy status to sulfonamides; Z88.8 Allergy status to other drugs, medicaments and biological substances; Z87.891 Personal history of nicotine dependence; Z99.3 Dependence on wheelchair; Z79.899 Other long term (current) drug therapy
CPT/HCPCS: 36415; 80053; 83605; 85025; 86140; 87040; 87070; 87205; 96365; 96367; 96375; 96376; 99285

== ENCOUNTER 2024-06-30 15:24 | Emergency (ER) | payer MEDICARE ==
[2024-06-30 15:33] VITALS: RESP 16
--- NOTE | 2024-06-30 15:36 | ED ---
General Adult HPI - General Chief complaint: Skin/Abscess/Foreign Body Stated complaint: L leg pain Time Seen by Provider: 06/30/24 15:34 Source: patient, EMS, RN notes reviewed Mode of arrival: EMS Limitations: no limitations - History of Present Illness Initial comments: 68-year-old female with a history of hyperlipidemia, hypertension, peripheral vascular disease presents with subsequent amputation presenting to the emergency department via EMS for complaint of left lower extremity pain. Patient was recently discharged from the hospital on Thursday after being admitted for left lower extremity cellulitis. She was discharged with oral Keflex addition to 3 times weekly wound care and follow-up scheduled with primary care provider and infectious disease. However has been having difficulty getting around at home due to the swelling of her left lower extremity. She endorses chills with no reported fevers. Denies. Has been taking her antibitoics as prescribed. wound care visited yesterday where they redressed her wound. normally gets around at home with a walker and wheelchair. - Related Data Home Medications Medication Instructions Recorded Confirmed Levothyroxine Sodium [Synthroid] 100 mcg PO DAILY 08/29/13 06/23/24 Atorvastatin Calcium [Lipitor] 10 mg PO HS 10/06/18 06/23/24 Amitriptyline HCl [Elavil] 10 mg PO HS 06/23/24 06/23/24 Previous Rx's Medication Instructions Recorded HYDROcodone/APAP 10-325MG [[place] 1 tab PO Q6H PRN #12 tab 07/29/21 10-325] Pregabalin [Lyrica] 100 mg PO TID #9 cap 07/29/21 Cephalexin [Keflex] 500 mg PO Q6HR 7 Days #28 cap 06/27/24 Pantoprazole [Protonix] 40 mg PO AC-BRKFST #30 tab 06/27/24 Allergies Allergy/AdvReac Type Severity Reaction Status Date / Time Sulfa (Sulfonamide Allergy Rash/Hives Verified 06/23/24 07:43 Antibiotics) vancomycin Allergy Rash/Hives Verified 06/23/24 07:43 levofloxacin [From Levaquin] AdvReac Itching Verified 06/23/24 07:43 Review of Systems ROS Statement: Those systems with pertinent positive or pertinent negative responses have been documented in the HPI. ROS Other: All systems not noted in ROS Statement are negative. Past Medical History Past Medical History: Hyperlipidemia, Hypertension, Osteoarthritis (OA), Skin Disorder, Thyroid Disorder, Vascular Disorder Additional Past Medical History / Comment(s): Nonambulatory/pivots to wheelchair normally, low back pain, neuropathy bilateral feet, chronic venous stasis, past L heel/L posterior yost/left second toe wounds, past L 2nd toe osteomyelitis-now amptuated, L great toe amptutated; L 3rd digit amputation, bilateral leg ce llulitis, lymphedema bilateral legs with left leg worse, past R ankle fracture x3, UTIs, urinary stress incontinence, chronic anemia, umbilical hernia, hypothyroid, pyoderma gangrenosum, 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 History of Any Multi-Drug Resistant Organisms: MRSA, VRE, VRE Date of last positivie culture/infection: 05/20/21-VRE; 04/07/20 MRSA MDRO Source:: Left Foot-VRE, Left Foot and Leg MRSA Past Surgical History: Section, Cholecystectomy, Orthopedic Surgery, Tubal Ligation Additional Past Surgical History / Comment(s): L leg I&D, bilateral knee arthroscopies, L great toe and 2nd/3rd toe amp d/t nonhealing wounds, PICCS, midlines, D&Cs Past Anesthesia/Blood Transfusion Reactions: Previous Problems w/ Anesthesia Additional Past Anesthesia/Blood Transfusion Reaction / Comment(s): Slow to come out of it Past Psychological History: Depression, Depression Smoking Status: Former smoker Past Alcohol Use History: None Reported Past Drug Use History: None Reported - Past Family History Father Family Medical History: Cancer, Coronary Artery Disease (CAD), Myocardial Infarction (NE), Prostate Disorder Additional Family Medical History / Comment(s): Prostate CA. Father in a MVA at the age of 80yrs. Mother Family Medical History: Cancer, CVA/TIA, Hyperlipidemia Additional Family Medical History / Comment(s): Lung CA-left lobe removed. General Exam Limitations: no limitations General appearance: alert, in no apparent distress, obese Neck exam: Present: normal inspection. Absent: tenderness, meningismus, lymph adenopathy Respiratory exam: Present: normal lung sounds bilaterally. Absent: respiratory distress, wheezes, rales, rhonchi, stridor Cardiovascular Exam: Present: regular rate, normal rhythm, normal heart sounds. Absent: systolic murmur, diastolic murmur, rubs, gallop, clicks GI/Abdominal exam: Present: soft, normal bowel sounds. Absent: distended, tenderness, guarding, rebound, rigid Left Upper Leg exam: Present: swelling Lower Leg exam: Present: tenderness, swelling, erythema Neurovascular tendon exam: Present: no vascular compromise. Absent: pulse deficit, abnormal cap refill Gait: not tested/not observed Back exam: Present: normal inspection Skin exam: Present: warm, dry, intact, normal color. Absent: rash Course Vital Signs 06/30/24 06/30/24 15:28 18:26 Temperature 97.9 F 98.7 F Pulse Rate 92 84 Respiratory 16 16 Rate Blood Pressure 122/72 136/74 O2 Sat by Pulse 98 97 Oximetry Medical Decision Making - Medical Decision Making Was pt. sent in by a medical professional or institution (Dr. PA, APPLICATIONS CHEMIST, urgent care, hospital, or long term...) When possible be specific @ -No Did you speak to anyone other than the patient for history (EMS, parent, family, police, friend...)? What history was obtained from this source @ -No Did you review nursing and triage notes (agree or disagree)? Why? @ -I reviewed and agree with nursing and triage notes Were old charts reviewed (outside hosp., previous admission, EMS record, old EKG, old radiological studies, urgent care reports/EKG's, long term records)? Report findings @ -Reviewed ultrasound Doppler of the left lower extremity no visualized DVT, however nonvisualization of popliteal vein due to edema Differential Diagnosis (chest pain, altered mental status, abdominal pain women, abdominal pain men, vaginal bleeding, weakness, fever, dyspnea, syncope, headache, dizziness, GI bleed, back pain, seizure, CVA, palpatations, mental health, musculoskeletal)? @ -Cellulitis, peripheral vascular disease, venous insuccifiency, this list is not all inclusive EKG interpreted by me (3pts min.). @ -none X-rays interpreted by me (1pt min.). @ -None done CT interpreted by me (1pt min.). @ -None done U/S interpreted by me (1pt. min.). @ -None done What testing was considered but not performed or refused? (CT, X-rays, U/S, labs)? Why? @ -None What meds were considered but not given or refused? Why? @ -None Did you discuss the management of the patient with other professionals (professionals i.e. , PA, APPLICATIONS CHEMIST, lab, RT, psych nurse, greenhouse worker, asphalt distributor operator, teacher, digital marketing officer, case briefer)? Give summary @ -Spoke with case briefer, Kaya, who assisted the patient denies advising her to contact her home health aide to schedule appointment for home visiting nurse for physical therapy evaluation. Was smoking cessation discussed for >3mins.? @ -No Was critical care preformed (if so, how long)? @ -No Were there social determinants of health that impacted care today? How? (Homelessness, low income, unemployed, alcoholism, drug addiction, trans portation, low edu. Level, literacy, decrease access to med. care, fdc, rehab)? @ -No Was there de-escalation of care discussed even if they declined (Discuss DNR or withdrawal of care, Hospice)? DNR status @ -No What co-morbidities impacted this encounter? (DM, HTN, Smoking, COPD, CAD, Cancer, CVA, ARF, Chemo, Hep., AIDS, mental health diagnosis, sleep apnea, morbid obesity)? @ -None Was patient admitted / discharged? Hospital course, mention meds given and route, prescriptions, significant lab abnormalities, going to OR and other pertinent info. @ -Discharge. 68-year-old female presents emergency department with left lower extremity pain and swelling. Patient noted to have edema of the left lower extremity additionally erythema. There is no vascular deficit with a 1+ palpab le pedal pulse. Patient's skin is dry. Laboratory testing is unremarkable aside from anemia which appears chronic and hemoglobin of 10.6. CMP is unremarkable, CRP of 5.2. Recommend patient follow-up with provided specialist as scheduled in addition to contacting at home visiting nurse in the morning to schedule an at home visit for physical therapy. Case discussed with Dr. Valera Undiagnosed new problem with uncertain prognosis? @ -No Drug Therapy requiring intensive monitoring for toxicity (Heparin, Nitro, Insulin, Cardizem)? @ -No Were any procedures done? @ -No Diagnosis/symptom? @ -Peripheral edema, venous insufficiency Acute, or Chronic, or Acute on Chronic? @ -Acute Uncomplicated (without systemic symptoms) or Complicated (systemic symptoms)? @ -Uncomplicated Side effects of treatment? @ -No Exacerbation, Progression, or Severe Exacerbation? @ -No Poses a threat to life or bodily function? How? (Chest pain, [place], NE, pneumonia, PE, COPD, DKA, ARF, appy, cholecystitis, CVA, Diverticulitis, Homicidal, Suicidal, threat to staff... and all critical care pts) @ -No - Lab Data Result diagrams: 06/30/24 16:04 06/30/24 16:04 Lab Results 06/30/24 06/30/24 06/30/24 Range/Units 16:04 16:04 16:04 WBC 6.6 (3.8-10.6) k/uL RBC 3.60 L (3.80-5.40) m/uL Hgb 10.6 L (11.4-16.0) gm/dL Hct 33.8 L (34.0-46.0) % MCV 93.9 (80.0-100.0) fL MCH 29.5 (25.0-35.0) pg MCHC 31.4 (31.0-37.0) g/dL RDW 14.4 (11.5-15.5) % Plt Count 176 (150-450) k/uL MPV 9.4 Neutrophils % 81 % Lymphocytes % 9 % Monocytes % 5 % Eosinophils % 2 % Basophils % 0 % Neutrophils # 5.3 (1.3-7.7) k/uL Lymphocytes # 0.6 L (1.0-4.8) k/uL Monocytes # 0.4 (0-1.0) k/uL Eosinophils # 0.1 (0-0.7) k/uL Basophils # 0.0 (0-0.2) k/uL Sodium 140 (137-145) mmol/L Potassium 4.2 (3.5-5.1) mmol/L Chloride 105 (98-107) mmol/L Carbon Dioxide 25 (22-30) mmol/L Anion Gap 10 mmol/L BUN 16 (7-17) mg/dL Creatinine 0.72 (0.52-1.04) mg/dL Est GFR (CKD-EPI)AfAm >90 (>60 ml/min/1.73 sqM) Est GFR (CKD-EPI)NonAf 87 (>60 ml/min/1.73 sqM) Glucose 67 L (74-99) mg/dL Plasma Lactic Acid Lm 1.6 (0.7-2.0) mmol/L Calcium 9.6 (8.4-10.2) mg/dL Total Bilirubin 0.8 (0.2-1.3) mg/dL AST 38 H (14-36) U/L ALT 15 (4-34) U/L Alkaline Phosphatase 149 H (38-126) U/L C-Reactive Protein 5.2 H (<1.0) mg/dL Total Protein 6.2 L (6.3-8.2) g/dL Albumin 3.5 (3.5-5.0) g/dL Disposition Clinical Impression: Chronic venous insufficiency, Cellulitis Disposition: HOME SELF-CARE Condition: Good Instructions (If sedation given, give patient instructions): Venous Insufficiency (DC) Additional Instructions: Please return to the Emergency Department if symptoms worsen or any other concerns. Discuss with your visiting nurse at next appointment at home therapy evaluation. Is patient prescribed a controlled substance at d/c from ED?: No Referrals: Adonis Mcfarlane DO [Primary Care Provider] - 1-2 days [facility], [NON-STAFF] - (Contact home care agency regarding when therapy will be out for evaluations.) Time of Disposition: 17:49
[2024-06-30 16:20] LABS: Basophils % (A) 0 %; Eosinophils # (A) 0.1 k/uL (0-0.7); Eosinophils % (A) 2 %; HCT 33.8 % (34.0-46.0); HGB 10.6 gm/dL (11.4-16.0); Lymphocytes # (A) 0.6 k/uL (1.0-4.8); Lymphocytes % (A) 9 %; MCH 29.5 pg (25.0-35.0); MCHC 31.4 g/dL (31.0-37.0); MCV 93.9 fL (80.0-100.0); Mean Platelet Volume 9.4; Monocytes # (A) 0.4 k/uL (0-1.0); Monocytes % (A) 5 %; Neutrophils # (A) 5.3 k/uL (1.3-7.7); Neutrophils % (A) 81 %; Platelet Count 176 k/uL (150-450); RDW 14.4 % (11.5-15.5); WBC 6.6 k/uL (3.8-10.6)
[2024-06-30 17:06] LABS: ALT 15 U/L (4-34); AST 38 U/L (14-36); African American GFR (CKD) >90 (>60 ml/min/1.73 sqM); Albumin 3.5 g/dL (3.5-5.0); Alkaline Phosphatase 149 U/L (38-126); Anion Gap 10 mmol/L; Blood Urea Nitrogen 16 mg/dL (7-17); C Reactive Protein 5.2 mg/dL (<1.0); Calcium 9.6 mg/dL (8.4-10.2); Carbon Dioxide 25 mmol/L (22-30); Chloride 105 mmol/L (98-107); Glucose 67 mg/dL (74-99); Non-African American GFR(CKD) 87 (>60 ml/min/1.73 sqM); Potassium 4.2 mmol/L (3.5-5.1); Sodium 140 mmol/L (137-145); Total Bilirubin 0.8 mg/dL (0.2-1.3); Total Protein 6.2 g/dL (6.3-8.2)
[2024-06-30 18:27] VITALS: BP 136/74; PULSE 84; TEMP 98.7
== END 2024-06-30 18:27 | disposition home or self-care (01) ==
LOC: EC 15:24
DX: L03.116 Cellulitis of left lower limb (principal); I87.2 Venous insufficiency (chronic) (peripheral); Z87.891 Personal history of nicotine dependence
CPT/HCPCS: 36415; 80053; 83605; 85025; 86140; 99284

== ENCOUNTER 2024-06-30 23:18 | Inpatient (IN) | payer MEDICARE ==
[2024-07-01] MEDS: MORPHINE SULFATE 4 MG/ML SYRINGE IV STA (01:58)
[2024-07-01 02:12] LABS: Basophils % (A) 0 %; Eosinophils # (A) 0.1 k/uL (0-0.7); Eosinophils % (A) 1 %; HCT 34.5 % (34.0-46.0); HGB 10.8 gm/dL (11.4-16.0); Hypochromasia Slight; Lymphocytes # (A) 0.7 k/uL (1.0-4.8); Lymphocytes % (A) 7 %; MCH 29.8 pg (25.0-35.0); MCHC 31.4 g/dL (31.0-37.0); MCV 94.8 fL (80.0-100.0); Mean Platelet Volume 8.7; Monocytes # (A) 0.7 k/uL (0-1.0); Monocytes % (A) 7 %; Neutrophils # (A) 8.2 k/uL (1.3-7.7); Neutrophils % (A) 82 %; Platelet Count 200 k/uL (150-450); RBC 3.64 m/uL (3.80-5.40)
[2024-07-01 02:44] LABS: ALT 15 U/L (4-34); AST 40 U/L (14-36); African American GFR (CKD) >90 (>60 ml/min/1.73 sqM); Albumin 3.3 g/dL (3.5-5.0); Alkaline Phosphatase 140 U/L (38-126); Anion Gap 8 mmol/L; Blood Urea Nitrogen 15 mg/dL (7-17); Calcium 9.4 mg/dL (8.4-10.2); Carbon Dioxide 27 mmol/L (22-30); Chloride 105 mmol/L (98-107); Creatine Kinase 427 U/L (30-135); Glucose 75 mg/dL (74-99); Non-African American GFR(CKD) 90 (>60 ml/min/1.73 sqM); Potassium 4.3 mmol/L (3.5-5.1); Sodium 140 mmol/L (137-145); Total Bilirubin 0.8 mg/dL (0.2-1.3); Total Protein 5.8 g/dL (6.3-8.2)
--- NOTE | 2024-07-01 02:50 | XR ---
EXAM: XR Bilateral Knees, 1 or 2 Views CLINICAL HISTORY: ITS.REASON XR Reason: swelling, pain, non ambulatory TECHNIQUE: Frontal and/or lateral views of the bilateral knees. COMPARISON: None FINDINGS: Bones/joints: No displaced fracture or dislocation identified. Severe tricompartmental degenerative changes of the knees. No bony lesion. Soft tissues: Soft tissue prominence. No radiopaque foreign body identified. IMPRESSION: 1. No displaced fracture or dislocation identified. 2. Severe degenerative changes.
[2024-07-01 02:51] LABS: NT-Pro-B-Type Natriuretic Pept 355 pg/mL
[2024-07-01] MEDS ORDERED: ACETAMINOPHEN TAB 325 MG TAB PO PRN (03:00)
[2024-07-01] MEDS ORDERED: NALOXONE 0.4 MG/ML 1 ML VIAL IV PRN (03:00)
--- NOTE | 2024-07-01 03:00 | ED ---
Fall HPI - General Chief Complaint: Fall Stated Complaint: Fall Time Seen by Provider: 06/30/24 23:30 Source: EMS Mode of arrival: EMS - History of Present Illness Initial Comments: 68-year-old female with past medical history of morbid obesity who presents to the emergency department with a fall. Patient was seen earlier today in the emergency department for left lower extremity pain. She was diagnosed with cellulitis and spent several days in the hospital. She was discharged on the third. States that she was discharged on antibiotics. She does have home care. She has been having difficulty getting around her house due to the left lower extremity pain and swelling. Due to her difficulties managing at home she came into the emergency department and was evaluated. She states that she was told she would not qualify for any further care and therefore she got discharged home. States that when she was at home she tried to get up from the toilet. The patient fell. Reports to landing on her bilateral knees. No head injury. Denies any neck or back pain. States that she was on the floor for a prolonged period of time. She admits to worsening lower extremity swelling. No history of DVT or PE. She has been taking her antibiotics as she is instructed. No other alleviating, precipitating or modifying factors - Related Data Home Medications Medication Instructions Recorded Confirmed Levothyroxine Sodium [Synthroid] 100 mcg PO DAILY 08/29/13 06/23/24 Atorvastatin Calcium [Lipitor] 10 mg PO HS 10/06/18 06/23/24 Amitriptyline HCl [Elavil] 10 mg PO HS 06/23/24 06/23/24 Previous Rx's Medication Instructions Recorded HYDROcodone/APAP 10-325MG [[place] 1 tab PO Q6H PRN #12 tab 07/29/21 10-325] Pregabalin [Lyrica] 100 mg PO TID #9 cap 07/29/21 Cephalexin [Keflex] 500 mg PO Q6HR 7 Days #28 cap 06/27/24 Pantoprazole [Protonix] 40 mg PO AC-BRKFST #30 tab 06/27/24 Allergies Allergy/AdvReac Type Severity Reaction Status Date / Time Sulfa (Sulfonamide Allergy Rash/Hives Verified 06/30/24 23:30 Antibiotics) vancomycin Allergy Rash/Hives Verified 06/30/24 23:30 levofloxacin [From Levaquin] AdvReac Itching Verified 06/30/24 23:30 Review of Systems ROS Statement: Those systems with pertinent positive or pertinent negative responses have been documented in the HPI. ROS Other: All systems not noted in ROS Statement are negative. 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 History of Any Multi-Drug Resistant Organisms: MRSA, VRE, VRE Date of last positivie culture/infection: 05/20/21-VRE; 04/07/20 MRSA MDRO Source:: Left Foot-VRE, Left Foot and Leg MRSA Past Surgical History: Section, Cholecystectomy, Orthopedic Surgery, Tubal Ligation Additional Past Surgical History / Comment(s): L leg I&D, bilateral knee arthroscopies, L great toe and 2nd/3rd toe amp d/t nonhealing wounds, PICCS, midlines, D&Cs Past Anesthesia/Blood Transfusion Reactions: Previous Problems w/ Anesthesia Additional Past Anesthesia/Blood Transfusion Reaction / Comment(s): Slow to come out of it Past Psychological History: Depression, Depression Smoking Status: Former smoker Past Alcohol Use History: None Reported Past Drug Use History: None Reported - Past Family History Father Family Medical History: Cancer, Coronary Artery Disease (CAD), Myocardial Infarction (MT), Prostate Disorder Additional Family Medical History / Comment(s): Prostate CA. Father in a MVA at the age of 80yrs. Mother Family Medical History: Cancer, CVA/TIA, Hyperlipidemia Additional Family Medical History / Comment(s): Lung CA-left lobe removed. General Exam General appearance: alert, in no apparent distress Head exam: Present: atraumatic, normocephalic, normal inspection Eye exam: Present: normal appearance, PERRL, EOMI. Absent: scleral icterus, conjunctival injection, periorbital swelling ENT exam: Present: normal exam, mucous membranes moist Neck exam: Present: normal inspection. Absent: tenderness, meningismus, lymphadenopathy Respiratory exam: Present: normal lung sounds bilaterally. Absent: respiratory distress, wheezes, rales, rhonchi, stridor Cardiovascular Exam: Present: regular rate, normal rhythm, normal heart sounds. Absent: systolic murmur, diastolic murmur, rubs, gallop, clicks GI/Abdominal exam: Present: soft, normal bowel sounds. Absent: distended, tenderness, guarding, rebound, rigid Extremities exam: Present: normal inspection, full ROM, normal capillary refill. Absent: tenderness, pedal edema, joint swelling, calf tenderness Back exam: Present: normal inspection Neurological exam: Present: alert, oriented X3, CN II-XII intact Psychiatric exam: Present: normal affect, normal mood Skin exam: Present: warm, dry, intact, normal color. Absent: rash Course Vital Signs 06/30/24 07/01/24 07/01/24 23:21 00:00 01:56 Temperature 97.3 F L Pulse Rate 100 97 Respiratory 20 18 Rate Blood Pressure 105/72 103/60 106/66 O2 Sat by Pulse 100 100 96 Oximetry 07/01/24 07/01/24 02:00 03:06 Temperature Pulse Rate 95 87 Respiratory Rate Blood Pressure 123/68 101/68 O2 Sat by Pulse 100 100 Oximetry Medical Decision Making - Medical Decision Making Was pt. sent in by a medical professional or institution (, PA, CHIEF COOK, urgent care, hospital, or [facility]...) When possible be specific @ -[No] Did you speak to anyone other than the patient for history (EMS, parent, family, police, friend...)? What history was obtained from this source @ -[No] Did you review nursing and triage notes (agree or disagree)? Why? @ -[I reviewed and agree with nursing and triage notes] Were old charts reviewed (outside hosp., previous admission, EMS record, old EKG, old radiological studies, urgent care reports/EKG's, [facility] records)? Report findings @ -[No old charts were reviewed] Differential Diagnosis (chest pain, altered mental status, abdominal pain women, abdominal pain men, vaginal bleeding, weakness, fever, dyspnea, syncope, headache, dizziness, GI bleed, back pain, seizure, CVA, palpatations, mental health, musculoskeletal)? @ -[not applicable] EKG interpreted by me (3pts min.). @ -Yes and demonstrates sinus rhythm with a rate of 93. NH interval 154. QRS 70. QTc of 388. X-rays interpreted by me (1pt min.). @ -[None done] CT interpreted by me (1pt min.). @ -[None done] U/S interpreted by me (1pt. min.). @ -[None done] What testing was considered but not performed or refused? (CT, X-rays, U/S, labs)? Why? @ -[None] What meds were considered but not given or refused? Why? @ -[None] Did you discuss the management of the patient with other professionals (professionals i.e. , PA, CHIEF COOK, lab, RT, psych nurse, oncology social worker, drying machine operator package yarns, teacher, air antisubmarine officer, employment case manager)? Give summary @ -[No] Was smoking cessation discussed for >3mins.? @ -[No] Was critical care preformed (if so, how long)? @ -[No] Were there social determinants of health that impacted care today? How? (Homelessness, low income, unemployed, alcoholism, drug addiction, transportation, low edu. Level, literacy, decrease access to med. care, long-term, rehab)? @ -[No] Was there de-escalation of care discussed even if they declined (Discuss DNR or withdrawal of care, Hospice)? DNR status @ -[No] What co-morbidities impacted this encounter? (DM, HTN, Smoking, COPD, CAD, Cancer, CVA, ARF, Chemo, Hep., AIDS, mental health diagnosis, sleep apnea, morbid obesity)? @ -[None] Was patient admitted / discharged? Hospital course, mention meds given and route, prescriptions, significant lab abnormalities, going to OR and other pertinent info. @ -[hospital course] Undiagnosed new problem with uncertain prognosis? @ -[No] Drug Therapy requiring intensive monitoring for toxicity (Heparin, Nitro, Insulin, Cardizem)? @ -[No] Were any procedures done? @ -[No] Diagnosis/symptom? @ -[default] Acute, or Chronic, or Acute on Chronic? @ -[default] Uncomplicated (without systemic symptoms) or Complicated (systemic symptoms)? @ -[default] Side effects of treatment? @ -[No] Exacerbation, Progression, or Severe Exacerbation? @ -[No] Poses a threat to life or bodily function? How? (Chest pain, USA, MT, pneumonia, PE, COPD, DKA, ARF, appy, cholecystitis, CVA, Diverticulitis, Homicidal, Suicidal, threat to staff... and all critical care pts) @ -[No] - Lab Data Result diagrams: 07/01/24 01:35 07/01/24 01:35 Lab Results 07/01/24 07/01/24 07/01/24 Range/Units 01:35 01:35 01:35 WBC 10.0 (3.8-10.6) k/uL RBC 3.64 L (3.80-5.40) m/uL Hgb 10.8 L (11.4-16.0) gm/dL Hct 34.5 (34.0-46.0) % MCV 94.8 (80.0-100.0) fL MCH 29.8 (25.0-35.0) pg MCHC 31.4 (31.0-37.0) g/dL RDW 14.0 (11.5-15.5) % Plt Count 200 (150-450) k/uL MPV 8.7 Neutrophils % 82 % Lymphocytes % 7 % Monocytes % 7 % Eosinophils % 1 % Basophils % 0 % Neutrophils # 8.2 H (1.3-7.7) k/uL Lymphocytes # 0.7 L (1.0-4.8) k/uL Monocytes # 0.7 (0-1.0) k/uL Eosinophils # 0.1 (0-0.7) k/uL Basophils # 0.0 (0-0.2) k/uL Hypochromasia Slight Sodium 140 (137-145) mmol/L Potassium 4.3 (3.5-5.1) mmol/L Chloride 105 (98-107) mmol/L Carbon Dioxide 27 (22-30) mmol/L Anion Gap 8 mmol/L BUN 15 (7-17) mg/dL Creatinine 0.68 (0.52-1.04) mg/dL Est GFR (CKD-EPI)AfAm >90 (>60 ml/min/1.73 sqM) Est GFR (CKD-EPI)NonAf 90 (>60 ml/min/1.73 sqM) Glucose 75 (74-99) mg/dL Plasma Lactic Acid Lm 1.0 (0.7-2.0) mmol/L Calcium 9.4 (8.4-10.2) mg/dL Total Bilirubin 0.8 (0.2-1.3) mg/dL AST 40 H (14-36) U/L ALT 15 (4-34) U/L Alkaline Phosphatase 140 H (38-126) U/L Creatine Kinase 427 H (30-135) U/L NT-Pro-B Natriuret Pep 355 pg/mL Total Protein 5.8 L (6.3-8.2) g/dL Albumin 3.3 L (3.5-5.0) g/dL Disposition Clinical Impression: Fall, Leg ulcer, left, Debility, Morbid obesity Disposition: ADMITTED IP TO THIS [facility] Condition: Stable Is patient prescribed a controlled substance at d/c from ED?: No Referrals: Adonis Mcfarlane DO [Primary Care Provider] - 1-2 days Time of Disposition: 03:00 Decision to Admit Reason: Admit from EC Decision Date: 07/01/24 Decision Time: 03:00
--- NOTE | 2024-07-01 03:05 | US ---
EXAM: US Duplex Left Lower Extremity Veins CLINICAL HISTORY: ITS.REASON US Reason: swelling, pain, non ambulatory TECHNIQUE: Real-time duplex ultrasound scan of the left lower extremity veins integrating B-mode two-dimensional vascular structure, Doppler spectral analysis, color flow Doppler imaging and compression. COMPARISON: 06/26/2024 FINDINGS: Deep veins: Unremarkable. No DVT in the visualized common femoral, femoral, proximal deep femoral or popliteal veins. The veins demonstrate normal color flow, are normally compressible, with normal phasic flow and/or augmentation response. Superficial veins: Unremarkable. No thrombus in the visualized great saphenous vein. Soft tissues: Soft tissue edema. No popliteal cyst. IMPRESSION: No definite deep venous thrombosis identified in the left lower extremity.
[2024-07-01] MEDS: LEVOTHYROXINE 100 MCG TAB PO SCH (10:39)
[2024-07-01] MEDS: CEPHALEXIN 500 MG CAP PO SCH (10:39)
[2024-07-01] MEDS: PREGABALIN 100 MG CAP PO SCH (10:39)
[2024-07-01] MEDS: HEPARIN SODIUM,PORCINE 5,000 UNIT/ML 1 ML VIAL SQ SCH (10:39)
[2024-07-01] MEDS: HYDROcodone/APAP 10-325MG 1 EACH TAB PO PRN (10:42)
--- NOTE | 2024-07-01 15:08 | P.HPIM ---
History of Present Illness H&P Date: 07/01/24 This is a pleasant 68-year-old female with medical history significant for hypertension, diabetic peripheral neuropathy, hypothyroidism, hyperlipidemia, morbid obesity and chronic peripheral edema. Patient comes in with complaints of fall at home states that she fell on her knee and has been unable to try to give it to her wheelchair which is at her usual baseline. Patient was just discharged from the hospital back on the third she was admitted at that time for cellulitis of the left lower extremity with infected chronic venous stasis ulcers and was discharged on a 7-day course of oral Keflex. Patient has since returned to the ER once for lower leg swelling had a repeat venous Doppler comp leted which was once again negative for DVT bilaterally. Patient comes back for a fall at home was admitted to the hospital was resumed on all same home medications and will continue oral Keflex for 2 more days to complete a 7-day course of therapy. Patient was evaluated physical therapy who is recommending subacute rehab at this time and patient states that she would like to discharge to rehab if possible as she feels like she is too weak to take care of herself at home. Patient does have some peripheral edema and we would recommend a course of Lasix during this hospital stay until discharge. She is not having any fever or chills no shortness of breath no chest pain. Labs reviewed white blood cell count of 10.0, hemoglobin 10.8, sodium 140 potassium 4.3 BUN of 15 creatinine 0.68 AST of 40 ALT of 15 alk phos of 140 creat kinase 427. Her proBNP was not elevated at 355. REVIEW OF SYSTEMS: CONSTITUTIONAL: No fever, no malaise, no fatigue. HEENT: No recent visual problems or hearing problems. Denied any sore throat. CARDIOVASCULAR: No chest pain, orthopnea, PND, no palpitations, no syncope. PULMONARY: No shortness of breath, no cough, no hemoptysis. GASTROINTESTINAL: No diarrhea, no nausea, no vomiting, no abdominal pain. NEUROLOGICAL: No headaches, no weakness, no numbness. HEMATOLOGICAL: Denies any bleeding or petechiae. GENITOURINARY: Denies any burning micturition, frequency, or urgency. MUSCULOSKELETAL/RHEUMATOLOGICAL: Denies any joint pain, swelling, or any muscle pain. ENDOCRINE: Denies any polyuria or polydipsia. The rest of the 14-point review of systems is negative. PHYSICAL EXAMINATION: GENERAL: The patient is alert and oriented x3, not in any acute distress. Well developed, well nourished. Morbid Obesity HEENT: Pupils are round and equally reacting to light. EOMI. No scleral icterus. No conjunctival pallor. Normocephalic, atraumatic. No pharyngeal erythema. No thyromegaly. Poor dentition. CARDIOVASCULAR: S1 and S2 present. No murmurs, rubs, or gallops. PULMONARY: Chest is clear to auscultation, no wheezing or crackles. ABDOMEN: Soft, nontender, nondistended, normoactive bowel sounds. No palpable organomegaly. MUSCULOSKELETAL: No joint swelling or deformity. EXTREMITIES: No cyanosis, clubbing, Significant lower extremity edema. NEUROLOGICAL: Gross neurological examination did not reveal any focal deficits. Weakness. SKIN: No rashes. Assessment Fall at home due to generalized weakness and chronic medical debility Recent admission for cellulitis currently completing a course of oral Keflex Left lower extremity venous stasis ulcer Hypertension, patient blood pressure is low/normal and will hold lisinopril Diabetic peripheral neuropathy for which patient is on pregabalin which will be continued Hyperlipidemia Hypothyroidism Morbid obesity with a BMI of 45.6 GI prophylaxis DVT prophylaxis Full Code Plan Will add IV lasix 40 mg q12 hour Monitor electrolytes and renal function Continue oral keflex to complete 7 day course from previous discharge Continue norco q6h prn for pain management PT/OT consultation recommending subacute rehab and social work to follow up The impression and plan of care has been dictated by Lucy Pfeiffer Nurse Practitioner as directed. Dr. Ashli MD I have performed a history and physical examination and medical decision making of this patient, discussed the same with the dictator, and agree with the dictators assessment and plan as written, documented as a scribe. Based on total visit time, I have performed more than 50% of this visit. 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 History of Any Multi-Drug Resistant Organisms: MRSA, VRE, VRE Date of last positivie culture/infection: 05/20/21-VRE; 04/07/20 MRSA MDRO Source:: Left Foot-VRE, Left Foot and Leg MRSA Past Surgical History: Section, Cholecystectomy, Orthopedic Surgery, Tubal Ligation Additional Past Surgical History / Comment(s): L leg I&D, bilateral knee arthroscopies, L great toe and 2nd/3rd toe amp d/t nonhealing wounds, PICCS, midlines, D&Cs Past Anesthesia/Blood Transfusion Reactions: Previous Problems w/ Anesthesia Additional Past Anesthesia/Blood Transfusion Reaction / Comment(s): Slow to come out of it Past Psychological History: Depression, Depression Additional Psychological History / Comment(s): Patient states she normally can pivot to wheelchair. She is receiving home care thru [facility]. She sees Dr. Danielson for wound care. She receives [employer] grocery delivery. She gets rides through [employer] [place] [address] or a friend. 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 Smoking Status: Former smoker Past Alcohol Use History: None Reported Additional Past Alcohol Use History / Comment(s): Pt started smoking in 1970 and quit in 1990. Past Drug Use History: None Reported - Past Family History Father Family Medical History: Cancer, Coronary Artery Disease (CAD), Myocardial Infarction (RI), Prostate Disorder Additional Family Medical History / Comment(s): Prostate CA. Father in a MVA at the age of 80yrs. Mother Family Medical History: Cancer, CVA/TIA, Hyperlipidemia Additional Family Medical History / Comment(s): Lung CA-left lobe removed. Medications and Allergies Home Medications Medication Instructions Recorded Confirmed Type Levothyroxine Sodium [Synthroid] 100 mcg PO DAILY 08/29/13 07/01/24 History Atorvastatin Calcium [Lipitor] 10 mg PO HS 10/06/18 07/01/24 History HYDROcodone/APAP 10-325MG [[place] 1 tab PO Q6H PRN #12 tab 07/29/21 07/01/24 Rx 10-325] Pregabalin [Lyrica] 100 mg PO TID #9 cap 07/29/21 07/01/24 Rx Amitriptyline HCl [Elavil] 10 mg PO HS 06/23/24 07/01/24 History Cephalexin [Keflex] 500 mg PO Q6HR 7 Days #28 cap 06/27/24 07/01/24 Rx Cephalexin [Keflex] 500 mg PO Q6H 07/01/24 07/01/24 History lisinopriL [Zestril] 40 mg PO DAILY PRN 07/01/24 07/01/24 History Allergies Allergy/AdvReac Type Severity Reaction Status Date / Time Sulfa (Sulfonamide Allergy Rash/Hives Verified 07/01/24 09:46 Antibiotics) vancomycin Allergy Rash/Hives Verified 07/01/24 09:46 levofloxacin [From Levaquin] AdvReac Itching Verified 07/01/24 09:46 Physical Exam Vitals: Vital Signs Temp Pulse Pulse Resp BP BP Pulse Ox 07/01/24 07:00 97.9 F 80 17 101/67 99 07/01/24 04:31 97.7 F 90 15 147/73 98 07/01/24 04:04 97.5 F L 84 18 103/63 98 07/01/24 03:06 87 101/68 100 07/01/24 02:00 95 123/68 100 07/01/24 01:56 97 18 106/66 96 07/01/24 00:00 103/60 100 06/30/24 23:21 97.3 F L 100 20 105/72 100 Intake and Output 06/30/24 07/01/24 07/01/24 22:59 06:59 14:59 Intake Total 100 Balance 100 Intake: Oral 100 Other: # Voids 3 1 Weight 136.078 kg Results CBC & Chem 7: 07/01/24 01:35 07/01/24 01:35 Labs: Abnormal Lab Results - Last 24 Hours (Table) 07/01/24 07/01/24 Range/Units 01:35 01:35 RBC 3.64 L (3.80-5.40) m/uL Hgb 10.8 L (11.4-16.0) gm/dL Neutrophils # 8.2 H (1.3-7.7) k/uL Lymphocytes # 0.7 L (1.0-4.8) k/uL AST 40 H (14-36) U/L Alkaline Phosphatase 140 H (38-126) U/L Creatine Kinase 427 H (30-135) U/L Total Protein 5.8 L (6.3-8.2) g/dL Albumin 3.3 L (3.5-5.0) g/dL Thrombosis Risk Factor Assmnt - Choose All That Apply Each Factor Represents 1 point: Obesity (BMI >25), Swollen legs (current) Each Risk Factor Represents 2 Points: Age 61-74 years Thrombosis Risk Factor Assessment Total Risk Factor Score: 4 Thrombosis Risk Factor Assessment Level: Moderate Risk Assessment and Plan Time with Patient: Less than 30
[2024-07-01] MEDS: PANTOPRAZOLE 40 MG TABLET PO SCH (16:21)
[2024-07-01] MEDS: AMITRIPTYLINE HCL 10 MG TAB PO SCH (21:19)
[2024-07-01] MEDS: FUROSEMIDE 10 MG/ML 4 ML VIAL IV SCH (21:19)
[2024-07-01] MEDS: ATORVASTATIN 10 MG TAB PO SCH (21:19)
[2024-07-02 09:44] LABS: Basophils # (A) 0.03 X 10*3/uL (0.00-0.10); Basophils % (A) 0.7 %; Eosinophils # (A) 0.12 X 10*3/uL (0.04-0.35); Eosinophils % (A) 2.7 %; HCT 27.9 % (37.2-46.3); HGB 8.6 g/dL (12.0-15.0); Lymphocytes # (A) 1.08 X 10*3/uL (0.90-5.00); Lymphocytes % (A) 24.3 %; MCH 30.1 pg (27.0-32.0); MCHC 30.8 g/dL (32.0-37.0); MCV 97.6 FL (80.0-97.0); Mean Platelet Volume 12.1 FL (9.5-12.2); Monocytes # (A) 0.56 X 10*3/uL (0.20-1.00); Monocytes % (A) 12.6 %; NRBC Per 100 WBC 0 X 10*3/uL (0.00-0.01); Neutrophils # (A) 2.63 X 10*3/uL (1.80-7.70); Neutrophils % (A) 59.2 %; Platelet Count 183 X 10*3/uL (140-440); RBC 2.86 X 10*6/uL (4.10-5.20); RDW 14.9 % (11.5-14.5); WBC 4.44 X 10*3/uL (4.50-10.00)
[2024-07-02 11:13] LABS: BUN/Creat Ratio 14.43 Ratio (12.00-20.00); Blood Urea Nitrogen 10.1 mg/dL (9.0-27.0); Calcium 8.7 mg/dL (8.7-10.3); Carbon Dioxide 24.4 mmol/L (21.6-31.8); Chloride 110 mmol/L (96-109); Glucose 75 mg/dL (70-110); Potassium 3.7 mmol/L (3.5-5.5); Sodium 145 mmol/L (135-145)
[2024-07-02] MEDS ORDERED: ZINC OXIDE PASTE (Z-GUARD) 1 APPLIC TOPICAL PRN (12:45)
--- NOTE | 2024-07-02 14:40 | P.PN ---
Subjective This is a pleasant 68-year-old female with medical history significant for hypertension, diabetic peripheral neuropathy, hypothyroidism, hyperlipidemia, morbid obesity and chronic peripheral edema. Patient comes in with complaints of fall at home states that she fell on her knee and has been unable to try to give it to her wheelchair which is at her usual baseline. Patient was just discharged from the hospital back on the third she was admitted at that time for cellulitis of the left lower extremity with infected chronic venous stasis ulcer s and was discharged on a 7-day course of oral Keflex. Patient has since returned to the ER once for lower leg swelling had a repeat venous Doppler completed which was once again negative for DVT bilaterally. Patient comes back for a fall at home was admitted to the hospital was resumed on all same home medications and will continue oral Keflex for 2 more days to complete a 7-day course of therapy. Patient was evaluated physical therapy who is recommending subacute rehab at this time and patient states that she would like to discharge to rehab if possible as she feels like she is too weak to take care of herself at home. Patient does have some peripheral edema and we would recommend a co urse of Lasix during this hospital stay until discharge. She is not having any fever or chills no shortness of breath no chest pain. Labs reviewed white blood cell count of 10.0, hemoglobin 10.8, sodium 140 potassium 4.3 BUN of 15 creatinine 0.68 AST of 40 ALT of 15 alk phos of 140 creat kinase 427. Her proBNP was not elevated at 355. 2/8 Patient feels improvement, she has less leg swelling She still have some pink areas in both legs mainly on the left side, she is on Keflex for cellulitis and looks improving. Has stools loose bowel movement today, will check for C. difficile if is negativ e we will give Imodium as needed No chest pain or dyspnea Review of systems CONSTITUTIONAL: No fever, no malaise, no fatigue. HEENT: No recent visual problems or hearing problems. Denied any sore throat. CARDIOVASCULAR: No orthopnea, PND, no palpitations, no syncope. PULMONARY: No shortness of breath, no cough, no hemoptysis. MUSCULOSKELETAL/RHEUMATOLOGICAL: Denies any joint pain, swelling, or any muscle pain. ENDOCRINE: Denies any polyuria or polydipsia. Active Medications Generic Name Dose Route Start Last Admin Trade Name Freq PRN Reason Stop Dose Admin Acetaminophen 650 mg 07/01/24 03:00 Acetaminophen Tab 325 Mg Tab PO Q6HR PRN Mild Pain or Fever > 100.5 Hydrocodone Bitart/Acetaminophen 1 each 07/01/24 10:12 07/01/24 10:42 Hydrocodone/Apap 10-325mg 1 Each Tab PO 1 each Q6H PRN Administration Pain Amitriptyline HCl 10 mg 07/01/24 21:00 07/01/24 21:19 Amitriptyline Hcl 10 Mg Tab PO 10 mg HS VENKAT Administration Atorvastatin Calcium 10 mg 07/01/24 21:00 07/01/24 21:19 Atorvastatin 10 Mg Tab PO 10 mg HS VENKAT Administration Cephalexin 500 mg 07/01/24 11:00 07/02/24 05:45 Cephalexin 500 Mg Cap PO 500 mg Q6HR VENKAT Administration Protocol Furosemide 40 mg 07/01/24 21:00 07/02/24 08:17 Furosemide 10 Mg/Ml 4 Ml Vial IV 40 mg Q12HR VENKAT Administration Heparin Sodium (Porcine) 5,000 unit 07/01/24 10:15 07/02/24 08:18 Heparin Sodium,Porcine 5,000 Unit/Ml 1 Ml Vial SQ 5,000 unit Q12HR VENKAT Administration Levothyroxine Sodium 100 mcg 07/01/24 10:30 07/02/24 05:45 Levothyroxine 100 Mcg Tab PO 100 mcg DAILY@0630 VENKAT Administration Naloxone HCl 0.2 mg 07/01/24 03:00 Naloxone 0.4 Mg/Ml 1 Ml Vial IV Q2M PRN Opioid Reversal Pantoprazole Sodium 40 mg 07/01/24 15:15 07/02/24 05:46 Pantoprazole 40 Mg Tablet PO Not Given [facility] Petrolatum 1 applic 07/02/24 12:45 Zinc Oxide Paste (Z-Guard) 1 Applic TOPICAL BID PRN Wound Healing Protocol Pregabalin 100 mg 07/01/24 10:15 07/02/24 08:18 Pregabalin 100 Mg Cap PO 100 mg TID VENKAT Administration Objective - Vital Signs Vital signs: Vital Signs Temp 98.4 F 07/02/24 14:20 Pulse 70 07/02/24 14:20 Resp 17 07/02/24 14:20 BP 142/72 07/02/24 14:20 Pulse Ox 99 07/02/24 14:20 FiO2 Intake & Output 07/01/24 07/02/24 07/02/24 18:59 06:59 18:59 Intake Total 380 236 Output Total 1999 Balance 380 -1764 Intake: Oral 380 236 Output: Urine 1999 Other: # Voids 1 1 # Bowel Movements 1 1 2 - Exam -GENERAL: The patient is alert and oriented x3, not in any acute distress. Well developed, well nourished. Obese HEENT: Pupils are round and equally reacting to light. EOMI. No scleral icterus. No conjunctival pallor. Normocephalic, atraumatic. No pharyngeal erythema. No thyromegaly. CARDIOVASCULAR: S1 and S2 present. No murmurs, rubs, or gallops. PULMONARY: Chest is clear to auscultation, no wheezing , no crackles. ABDOMEN: Soft, nontender, nondistended, normoactive bowel sounds. No palpable organomegaly. MUSCULOSKELETAL: No joint swelling or deformity. -EXTREMITIES: No cyanosis, clubbing, or pe bilateral pitting leg edema, erythema of the left leg for her recently diagnosed cellulitis NEUROLOGICAL: Gross neurological examination did not reveal any focal deficits. SKIN: No rashes. no petechiae. - Labs CBC & Chem 7: 07/02/24 02:34 07/02/24 02:34 Labs: Abnormal Lab Results - Last 24 Hours (Table) 07/02/24 07/02/24 Range/Units 02:34 02:34 WBC 4.44 L (4.50-10.00) X 10*3/uL RBC 2.86 L (4.10-5.20) X 10*6/uL Hgb 8.6 L (12.0-15.0) g/dL Hct 27.9 L (37.2-46.3) % MCV 97.6 H (80.0-97.0) FL MCHC 30.8 L (32.0-37.0) g/dL RDW 14.9 H (11.5-14.5) % Chloride 110 H (96-109) mmol/L Assessment and Plan Assessment: Fall at home due to generalized weakness and chronic medical debility Recent admission for cellulitis currently completing a course of oral Keflex Left lower extremity venous stasis ulcer Hypertension, patient blood pressure is low/normal and will hold lisinopril Diabetic peripheral neuropathy for which patient is on pregabalin which will be continued Hyperlipidemia Hypothyroidism Morbid obesity with a BMI of 45.6 Plan: Continue with IV Lasix Continue with Keflex home medication Check for C. difficile and if negative check and give Imodium as needed PT/OT evaluation Labs and medication were reviewed.. Continue same treatment. Continue with symptomatic treatment. Resume home medication. Monitor labs and vitals. DVT and GI prophylaxis. Further recommendations as per clinical course of the patient DVT prophylaxis: Subcutaneous heparin GI Prophylaxis: Pepcid PT/OT: Pending Prognosis is guarded
[2024-07-03] MEDS ORDERED: LOPERAMIDE 2 MG CAP PO PRN (01:09)
--- NOTE | 2024-07-03 14:35 | P.PN ---
Subjective This is a pleasant 68-year-old female with medical history significant for hypertension, diabetic peripheral neuropathy, hypothyroidism, hyperlipidemia, morbid obesity and chronic peripheral edema. Patient comes in with complaints of fall at home states that she fell on her knee and has been unable to try to give it to her wheelchair which is at her usual baseline. Patient was just discharged from the hospital back on the third she was admitted at that time for cellulitis of the left lower extremity with infected chronic venous stasis ulcer s and was discharged on a 7-day course of oral Keflex. Patient has since returned to the ER once for lower leg swelling had a repeat venous Doppler completed which was once again negative for DVT bilaterally. Patient comes back for a fall at home was admitted to the hospital was resumed on all same home medications and will continue oral Keflex for 2 more days to complete a 7-day course of therapy. Patient was evaluated physical therapy who is recommending subacute rehab at this time and patient states that she would like to discharge to rehab if possible as she feels like she is too weak to take care of herself at home. Patient does have some peripheral edema and we would recommend a co urse of Lasix during this hospital stay until discharge. She is not having any fever or chills no shortness of breath no chest pain. Labs reviewed white blood cell count of 10.0, hemoglobin 10.8, sodium 140 potassium 4.3 BUN of 15 creatinine 0.68 AST of 40 ALT of 15 alk phos of 140 creat kinase 427. Her proBNP was not elevated at 355. 07/02 Patient feels improvement, she has less leg swelling She still have some pink areas in both legs mainly on the left side, she is on Keflex for cellulitis and looks improving. Has stools loose bowel movement today, will check for C. difficile if is negativ e we will give Imodium as needed No chest pain or dyspnea 07/03 Bilateral leg cellulitis and swelling improving She had diarrhea yesterday, C. difficile negative, Imodium was given Objective - Vital Signs Vital signs: Vital Signs Temp 98.0 F 07/03/24 14:10 Pulse 65 07/03/24 14:10 Resp 17 07/03/24 14:10 BP 118/72 07/03/24 14:10 Pulse Ox 97 07/03/24 14:10 FiO2 Intake & Output 07/02/24 07/03/24 07/03/24 17:59 06:59 18:59 Intake Total 236 Output Total 1850 Balance -1614 Intake: Oral 236 Output: Urine 1850 Other: # Bowel Movements - Exam -GENERAL: The patient is alert and oriented x3, not in any acute distress. Well developed, well nourished. Obese HEENT: Pupils are round and equally reacting to light. EOMI. No scleral icterus. No conjunctival pallor. Normocephalic, atraumatic. No pharyngeal erythema. No thyromegaly. CARDIOVASCULAR: S1 and S2 present. No murmurs, rubs, or gallops. PULMONARY: Chest is clear to auscultation, no wheezing , no crackles. ABDOMEN: Soft, nontender, nondistended, normoactive bowel sounds. No palpable organomegaly. MUSCULOSKELETAL: No joint swelling or deformity. -EXTREMITIES: No cyanosis, clubbing, or pe bilateral pitting leg edema, erythema of the left leg for her recently diagnosed cellulitis NEUROLOGICAL: Gross neurological examination did not reveal any focal deficits. SKIN: No rashes. no petechiae. - Labs CBC & Chem 7: 07/02/24 02:34 07/02/24 02:34 Assessment and Plan Assessment: Fall at home due to generalized weakness and chronic medical debility Recent admission for cellulitis currently completing a course of oral Keflex Left lower extremity venous stasis ulcer Hypertension, patient blood pressure is low/normal and will hold lisinopril Diabetic peripheral neuropathy for which patient is on pregabalin which will be continued Hyperlipidemia Hypothyroidism Morbid obesity with a BMI of 45.6 Plan: Continue with IV Lasix Continue with Keflex home medication Check for C. difficile and if negative check and give Imodium as needed PT/OT evaluation Labs and medication were reviewed.. Continue same treatment. Continue with symptomatic treatment. Resume home medication. Monitor labs and vitals. DVT and GI prophylaxis. Further recommendations as per clinical course of the patient DVT prophylaxis: Subcutaneous heparin GI Prophylaxis: Pepcid PT/OT: Pending Prognosis is guarded
[2024-07-04 07:41] VITALS: BP 105/62; PULSE 61; RESP 16; TEMP 98
--- NOTE | 2024-07-04 10:13 | P.DS ---
Providers Date of admission: 07/01/24 03:00 Expected date of discharge: 07/04/24 Attending physician: Tal Magallanes Primary care physician: Ad[facility] Course: This is a pleasant 68-year-old female with medical history significant for hypertension, diabetic peripheral neuropathy, hypothyroidism, hyperlipidemia, morbid obesity and chronic peripheral edema. Patient comes in with complaints of fall at home states that she fell on her knee and has been unable to try to give it to her wheelchair which is at her usual baseline. Patient was just discharged from the hospital back on the third she was admitted at that time for cellulitis of the left lower extremity with infected chronic venous stasis ulcers and was discharged on a 7-day course of oral Keflex. Patient has since returned to the ER once for lower leg swelling had a repeat venous Doppler completed which was once again negative for DVT bilaterally. Patient comes back for a fall at home was admitted to the hospital was resumed on all same home medications and will continue oral Keflex for 2 more days to complete a 7-day course of therapy. Patient was evaluated physical therapy who is recommending subacute rehab at this time and patient states that she would like to discharge to rehab if possible as she feels like she is too weak to take care of herself at home. Patient does have some peripheral edema and we would recommend a course of Lasix during this hospital stay until discharge. She is not having any fever or chills no shortness of breath no chest pain. Labs reviewed white blood cell count of 10.0, hemoglobin 10.8, sodium 140 potassium 4.3 BUN of 15 creatinine 0.68 AST of 40 ALT of 15 alk phos of 140 creat kinase 427. Her proBNP was not elevated at 355. 07/02 Patient feels improvement, she has less leg swelling She still have some pink areas in both legs mainly on the left side, she is on Keflex for cellulitis and looks improving. Has stools loose bowel movement today, will check for C. difficile if is negative we will give Imodium as needed No chest pain or dyspnea 07/03 Bilateral leg cellulitis and swelling improving She had diarrhea yesterday, C. difficile negative, Imodium was given July 04: I assumed care of the patient today. Bowels better. Negative for C. difficile. Eating well. Sitting at the edge of the bed. At the baseline normally able to transfer from the bed to the wheelchair. Unable to do so. Seen by physical therapy. Spoke to him. Spoke to social media developer Geno. Patient go for rehab to [facility]. Complete 3 more days of Keflex. Left lower extremity cellulitis much better. DC IV Lasix. Fluid restriction 16 cc a day. Discussion and discharge planning more than 35 minutes Past medical history: Hyperlipidemia, hypertension, osteoarthritis, hypothyroid, uses wheelchair, peripheral neuropathy, chronic venous stasis, bilateral lower extremity lymphedema, urinary stress incontinence, lymph edema, umbilical hernia, hypothyroid. 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 Smoked for 20 years stopped in 1990. Alcohol rarely. Lives alone. Uses a wheelchair. Physical examination: VITAL SIGNS: 98, 61, 16, 105 x 62, 95% room air GENERAL: Sitting at edge of the bed, comfortable EYES: Pupils equal. Conjunctiva normall. HEENT: External appearance of nose and ears normal, oral cavity grossly normal. NECK: JVD not raised; masses not palpable. HEART: First and second heart sounds are normal; some edema. LUNGS: Respiratory rate normal; distant breath sounds. ABDOMEN: Soft, nontender, liver spleen not palpable, no masses palpable. PSYCH: Alert and oriented x3; mood and affect normal. MUSCULOSKELETAL:No Clubbing/cyanosis;muscles-grossly intact. venous insufficiency and lymphedema in the lower extremity. Cellulitis greatly improved with some chronic excoriations EXTREMITY: Left foot, amputated big toe and third toe INVESTIGATIONS, reviewed in the clinical context: July 02: White count 4.4 hemoglobin 8.6 platelets 183 sodium 145 potassium 3.7 creatinine 0.7 C. difficile: Negative Assessment and plan: -Acute fall due to increased medical asthenia with underlying chronic medical debility PT OT -Acute on chronic left lower extremity cellulitis. Completing course of Keflex -chronic low back pain, likely from spinal stenosis/herniated disc with radiculopathy and down and affect.-likely from L1-L2 and L3-L4 nerve distribution. Pain medications as needed -History of Pyoderma gangrenosum -Hyperlipidemia Lipitor 10 mg daily at bedtime, -Primary osteoarthritis, pain medications when necessary -Hypothyroid, Synthroid 100 g daily -Normocytic anemia likely of chronic disease -Chronic medical debility uses wheelchair -Acute medical debility. Patient not able to transfer from bed to his wheelchair that she normally can. Seen by PT OT. Rehab at [facility] -Idiopathic peripheral neuropathy Lyrica 100 mg 3 times a day -Chronic venous stasis -Bilateral lower extremity lymphedema -Chronic urinary stress incontinence -Chronic umbilical hernia -Morbid obesity BMI 45.6 Weight loss measures -Full code Disposition: Rehab at [facility] Patient Condition at Discharge: Stable Plan - Discharge Summary New Discharge Prescriptions: New Acetaminophen Tab [Tylenol] 650 mg PO Q6HR PRN tab PRN Reason: Mild Pain Or Fever > 100.5 Continue Levothyroxine Sodium [Synthroid] 100 mcg PO DAILY Atorvastatin Calcium [Lipitor] 10 mg PO HS Amitriptyline HCl [Elavil] 10 mg PO HS Cephalexin [Keflex] 500 mg PO Q6HR #6 cap Pregabalin [Lyrica] 100 mg PO TID #9 cap lisinopriL [Zestril] 40 mg PO DAILY PRN PRN Reason: BP >138/74 HYDROcodone/APAP 10-325MG [[place] 10-325] 1 tab PO Q6H PRN #12 tab PRN Reason: Pain Discontinued Cephalexin [Keflex] 500 mg PO Q6H Discharge Medication List Levothyroxine Sodium [Synthroid] 100 mcg PO DAILY 08/29/13 [History] Atorvastatin Calcium [Lipitor] 10 mg PO HS 10/06/18 [History] Amitriptyline HCl [Elavil] 10 mg PO HS 06/23/24 [History] lisinopriL [Zestril] 40 mg PO DAILY PRN 07/01/24 [History] Acetaminophen Tab [Tylenol] 650 mg PO Q6HR PRN tab 07/04/24 [Rx] Cephalexin [Keflex] 500 mg PO Q6HR #6 cap 07/04/24 [Rx] HYDROcodone/APAP 10-325MG [[place] 10-325] 1 tab PO Q6H PRN #12 tab 07/04/24 [Rx] Pregabalin [Lyrica] 100 mg PO TID #9 cap 07/04/24 [Rx] Follow up Appointment(s)/Referral(s): Adonis Mcfarlane DO [Primary Care Provider] - 1-2 days [facility], [NON-STAFF] - As Needed Activity/Diet/Wound Care/Special Instructions: fluid restrict 1600 cc/day
== END 2024-07-04 13:48 | DRG 948 ==
LOC: EC 23:18 → 6NMEDSUR 07-01 03:00 → OBSVTOIN 07-04 08:35
PROVIDERS: ADMIT Hospitalist; ATTEND Hospitalist
DX: R53.81 Other malaise (principal); L03.115 Cellulitis of right lower limb; L88 Pyoderma gangrenosum; L03.116 Cellulitis of left lower limb; D63.8 Anemia in other chronic diseases classified elsewhere; Z68.42 Body mass index [BMI] 45.0-49.9, adult; E11.42 Type 2 diabetes mellitus with diabetic polyneuropathy; E03.9 Hypothyroidism, unspecified; I10 Essential (primary) hypertension; F32.A Depression, unspecified; L97.929 Non-pressure chronic ulcer of unspecified part of left lower leg with unspecified severity; E66.01 Morbid (severe) obesity due to excess calories; M48.061 Spinal stenosis, lumbar region without neurogenic claudication; M54.16 Radiculopathy, lumbar region; E78.5 Hyperlipidemia, unspecified; N39.3 Stress incontinence (female) (male); G89.29 Other chronic pain; M19.91 Primary osteoarthritis, unspecified site; G60.9 Hereditary and idiopathic neuropathy, unspecified; I87.8 Other specified disorders of veins; I89.0 Lymphedema, not elsewhere classified; R19.7 Diarrhea, unspecified; Z87.891 Personal history of nicotine dependence; Z79.899 Other long term (current) drug therapy; Z79.890 Hormone replacement therapy; Z91.81 History of falling; Z89.412 Acquired absence of left great toe; Z89.422 Acquired absence of other left toe(s); Z99.3 Dependence on wheelchair
CPT/HCPCS: 36415; 80048; 80053; 82550; 83036; 83605; 83880; 85025; 87324; 93005; 96374; 99285